=== PATIENT | male | born 1940 | race Caucasian/White ===

== ENCOUNTER → 2021-08-11 14:51 | Outpatient (CLI) | payer MEDICARE, BC, SELFPAY | PROVIDERS: PCP Family Medicine; Visit Provider Nurse Practitioner | DX: Z20.822 Contact with and (suspected) exposure to COVID-19 (principal) | CPT/HCPCS: C9803; U0003; U0005 ==

== ENCOUNTER 2022-05-08 12:49 | Emergency (ER) | payer MEDICARE, BC, OTHER, SELFPAY ==
[2022-05-08 14:05] VITALS: BP 106/77; PULSE 66; RESP 19; TEMP 36.6; O2SAT 99; BMI 26.9
--- NOTE | 2022-05-08 14:44 | EXP.UTC ---
Discharge Plan Disposition Patient Disposition: Home, Self-Care Condition: Good Prescriptions Prescriptions: No Action carvedilol 6.25 mg tablet See Rx Instructions .ROUTE .COMPLEX Qty: 180 3RF Dose Instruction: TAKE 2 TABLETS BY MOUTH ONCE DAILY FOR BLOOD PRESSURE Rx Instructions: TAKE 2 TABLETS BY MOUTH ONCE DAILY FOR BLOOD PRESSURE rosuvastatin 20 mg tablet See Rx Instructions .ROUTE .COMPLEX Qty: 90 0RF Dose Instruction: TAKE ONE TABLET BY MOUTH EVERY DAY FOR CHOLESTEROL Rx Instructions: TAKE ONE TABLET BY MOUTH EVERY DAY FOR CHOLESTEROL lisinopril 2.5 mg tablet See Rx Instructions .ROUTE .COMPLEX Qty: 30 0RF Dose Instruction: TAKE 1 TABLET BY MOUTH ONCE DAILY Rx Instructions: TAKE 1 TABLET BY MOUTH ONCE DAILY clopidogrel 75 tablet 75 mg PO DAILY metoprolol tartrate 50 MG tablet 50 mg PO DAILY Referrals Follow up/Referrals: Provider,Referral, MD [Primary Care Provider] - See instructions Activity Restrictions/Add. Instructions Additional Instructions/Restrictions: [facility] Return if needed Straight to ER if any life threatening symptoms Clinical Impressions Clinical Impression: Ear problem Instructions Patient Instructions: DI for Cerumen Impaction Discharge ED Provider: Shayna Hull [facility] General Stated complaint: Wax build up in Rt ear Mode of Arrival: Ambulatory Source of Information: Patient Limitations: No Limitations Time Seen by Provider: 05/08/22 14:45 Description of Symptoms (Recalled from Triage Doc. by RN): PATIENT C/O WAX BUILD-UP IN RIGHT EAR HEENT Symptoms (Recalled from RN notes): Yes Resp Symptoms (Recalled from RN notes): No Skin Symptoms (Recalled from RN notes): No MS Symptoms (Recalled from RN notes): No Functional Status (Recalled from RN notes): WNL History of Present Illness Provider Complaint: Patient states that [facility] States that they told him that his right ear was stopped up States that he has been flushing it at home but not seen anything come out so he wanted to come in and get it checked and his right ear cleaned out Related Data Home Medications Medication Instructions Recorded Confirmed clopidogrel 75 mg tablet 75 mg PO DAILY Blood thinner 07/05/19 07/05/19 metoprolol tartrate 50 mg tablet 50 mg PO DAILY High blood pressure 07/05/19 07/05/19 Previous Rx's Medication Instructions Recorded carvedilol 6.25 mg tablet See Rx Instructions .Route 01/21/21 .COMPLEX #180 tabs rosuvastatin 20 mg tablet See Rx Instructions .Route 03/23/21 .COMPLEX #90 tabs lisinopril 2.5 mg tablet See Rx Instructions .Route 05/21/21 .COMPLEX #30 tabs Allergies Allergy/AdvReac Type Severity Reaction Status Date / Time aspirin [ASPIRIN] Allergy Intermediate Verified 07/05/19 11:23 Worker's Comp Is this a Worker's Comp case?: No PFSH PFSH Medical History (Updated 05/08/22 @ 14:54 by Shayna Hull APRN) History of heart attack Hyperlipidemia Kidney stone Surgical History (Updated 05/08/22 @ 14:15 by Darlin Collier, RN) History of cholecystectomy History of open heart surgery History of tonsillectomy Social History (Updated 05/08/22 @ 14:15 by Darlin Collier, RN) Smoking Status: Never smoker alcohol intake: never current occupational status: retired Travel in the last 8 weeks: None ROS Obtained: Yes All systems reviewed & no additional complaints except as documented and Yes Systems reviewed as appropriate & no additional complaints except as documented ENT Ears, Nose, Mouth, and Throat: Reports system reviewed and no additional complaints, except as documented, Reports as per HPI and Reports other (right ear stopped up with wax) Physical Exam General General appearance: alert and in no apparent distress ENT ENT exam: Present TM's normal bilaterally and other (only small amount of wax noted in right ear removed
[2022-05-08 14:54] VITALS: BP 106/77; PULSE 66; RESP 19; TEMP 36.6; O2SAT 99
== END 2022-05-08 14:56 | disposition home or self-care (01) ==
PROVIDERS: Emergency Provider Nurse Practitioner
DX: H93.91 Unspecified disorder of right ear
CPT/HCPCS: 99212; G0463

== ENCOUNTER 2022-06-22 09:05 | Emergency (ER) | payer MEDICARE, BC, OTHER, SELFPAY ==
--- NOTE | 2022-06-22 11:56 | EXP.UTC ---
Discharge Plan Disposition Patient Disposition: Home, Self-Care Condition: Good Prescriptions Prescriptions: New Paxlovid (EUA) 300 mg (150 mg x 2)-100 mg tablet See Rx Instructions .ROUTE .COMPLEX Qty: 30 0RF Rx Instructions: take TWO 150 mg tablets of nirmatrelvir with ONE 100 mg tablet of ritonavir twice daily for 5 days No Action carvedilol 6.25 mg tablet See Rx Instructions .ROUTE .COMPLEX Qty: 180 3RF Dose Instruction: TAKE 2 TABLETS BY MOUTH ONCE DAILY FOR BLOOD PRESSURE Rx Instructions: TAKE 2 TABLETS BY MOUTH ONCE DAILY FOR BLOOD PRESSURE rosuvastatin 20 mg tablet See Rx Instructions .ROUTE .COMPLEX Qty: 90 0RF Dose Instruction: TAKE ONE TABLET BY MOUTH EVERY DAY FOR CHOLESTEROL Rx Instructions: TAKE ONE TABLET BY MOUTH EVERY DAY FOR CHOLESTEROL lisinopril 2.5 mg tablet See Rx Instructions .ROUTE .COMPLEX Qty: 30 0RF Dose Instruction: TAKE 1 TABLET BY MOUTH ONCE DAILY Rx Instructions: TAKE 1 TABLET BY MOUTH ONCE DAILY clopidogrel 75 tablet 75 mg PO DAILY metoprolol tartrate 50 MG tablet 50 mg PO DAILY Referrals Follow up/Referrals: Provider,Referral, MD [Primary Care Provider] - See instructions Activity Restrictions/Add. Instructions Additional Instructions/Restrictions: Drink plenty of fluids. Take tylenol or ibuprofen for pain or fever. Take the medications as directed. Return if you begin to have difficulty breathing. Follow up with your regular doctor. GO TO THE ER FOR ANY WORSENING SYMPTOMS If your viral test comes back positive for covid-19, i recommend that you take the paxlovid prescription that we sent to your pharmacy. If it is not positive for covid-19 then please don't take it because it will not help. Clinical Impressions Clinical Impression: Acute viral syndrome Instructions Patient Instructions: Coronavirus Disease 2019, Preventing the Spread of Coronavirus Discharge Instructions Discharge ED Provider: Duane Kc [facility] General Stated complaint: covid test Time Seen by Provider: 06/22/22 11:56 History of Present Illness Provider Complaint: He states that he was accidentilly exposed to covid-19 over the . He started to feel bad, had chills and body aches yesterday. He has been fully vaccinated for covid-19. He has had a flu shot this season also. Related Data Home Medications Medication Instructions Recorded Confirmed clopidogrel 75 mg tablet 75 mg PO DAILY Blood thinner 07/05/19 07/05/19 metoprolol tartrate 50 mg tablet 50 mg PO DAILY High blood pressure 07/05/19 07/05/19 Previous Rx's Medication Instructions Recorded carvedilol 6.25 mg tablet See Rx Instructions .Route 01/21/21 .COMPLEX #180 tabs rosuvastatin 20 mg tablet See Rx Instructions .Route 03/23/21 .COMPLEX #90 tabs lisinopril 2.5 mg tablet See Rx Instructions .Route 05/21/21 .COMPLEX #30 tabs nirmatrelvir 300 mg (150 mg See Rx Instructions PO .COMPLEX 06/22/22 x2)-ritonavir 100 mg tablet,dose #30 tabs pack(EUA) (Paxlovid) Allergies Allergy/AdvReac Type Severity Reaction Status Date / Time aspirin [ASPIRIN] Allergy Intermediate Verified 06/22/22 12:01 [facility] Medical History History of heart attack Hyperlipidemia Kidney stone Surgical History History of cholecystectomy History of open heart surgery History of tonsillectomy Social History Smoking Status: Never smoker alcohol intake: never current occupational status: retired Travel in the last 8 weeks: None ROS Obtained: Yes All systems reviewed & no additional complaints except as documented Constitutional Constitutional: Reports chills and Reports fever(s) Eyes Eyes: Denies eye discharge ENT Ears, Nose, Mouth, and Throat: Denies dizzine
[2022-06-22 11:59] VITALS: BP 124/65; PULSE 83; RESP 16; TEMP 37.3; O2SAT 97; BMI 26.2
[2022-06-22 12:01] LABS: Adenovirus,PCR Not Detected (NotDetected); Bordetella Pertussis Not Detected (NotDetected); Chlamydophila Pneumoniae, PCR Not Detected (NotDetected); Coronavirus 229E Not Detected (NotDetected); Coronavirus NL63 Not Detected (NotDetected); Coronavirus OC43 Not Detected (NotDetected); Coronovirus HKU1,PCR Not Detected (NotDetected); Human Metapneumovirus Not Detected (NotDetected); Influenza A, PCR Not Detected (NotDetected); Influenza AH1, 2009 Not Detected (NotDetected); Influenza AH1, PCR Not Detected (NotDetected); Influenza AH3,PCR Not Detected (NotDetected); Influenza B, PCR Not Detected (NotDetected); Mycoplasma Pneumoniae, PCR Not Detected (NotDetected); Parainfluenza 1, PCR Not Detected (NotDetected); Parainfluenza 2, PCR Not Detected (NotDetected); Parainfluenza 3, PCR Not Detected (NotDetected); Parainfluenza 4, PCR Not Detected (NotDetected); Respiratory Syncytial Virus Not Detected (NotDetected); Rhinovirus/Enterovirus Not Detected (NotDetected)
[2022-06-22 12:23] VITALS: BP 124/65; PULSE 83; RESP 16; TEMP 37.3
[2022-06-23 16:29] LABS: Coronavirus 19, PCR Detected (NotDetected)
== END 2022-06-22 12:23 | disposition home or self-care (01) ==
PROVIDERS: Emergency Provider Nurse Practitioner Family
DX: U07.1 COVID-19 (principal); R50.9 Fever, unspecified; I25.2 Old myocardial infarction; E78.5 Hyperlipidemia, unspecified; M79.10 Myalgia, unspecified site; Z79.02 Long term (current) use of antithrombotics/antiplatelets; Z79.899 Other long term (current) drug therapy; Z88.6 Allergy status to analgesic agent
CPT/HCPCS: 87581; 87632; 87798; 99213; C9803; G0463; U0003; U0005

== ENCOUNTER 2024-12-29 22:53 | Emergency (ER) | payer MEDICARE, BC, OTHER, SELFPAY ==
--- OUTSIDE RECORDS SUMMARY | 2024-04-10 07:22 | XMS_ITS | Encounter Summary ---
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 This section includes the names of all active insurance providers for the patient. Insurance Provider Type of Coverage Plan Name Start of Policy Coverage End of Policy Coverage Group Number Member ID Insurance Provider's Telephone Number Policy Asif's Name Patient's Relationship to Policy Asif BS [place] [employer] [place] SECONDARY (NO B EXC) TI AUTOM OTIVE - RETI Jul 25, 2018 [id number] MALUTI PERKINS JORDAN SPOUSE MEDICARE (WNR) MEDICARE (M) PART B Jan 22, 2007 PART B [id number] [phone] MALUJUSTYNA TINAJERO RGE PATIENT MEDICARE (WNR) MEDICARE (M) PART A Sep 22, 2005 PART A [id number] [phone] REINAJUSTYNA AKBAR PATIENT FOR LIFE TRICA RE FOR LIFE Jul 25, 2017 FOR LIFE [id number] ROBBIE HUANG JR PATIENT Selected Encounter This section includes the information on record at NH for the Encounter. Date/Time Encounter Type Encounter Description Reason Pro vider Source Apr 10, 2024 11:22 AM Outpatient Encounter ADMIN PAT ACTIVTIES (MASNONCT) IHE Encounter Template Text not used by NH Plan of Treatment: Future Appointments (+ 6 months) and Future Tests (+/- 45 days) The Plan of Treatment section includes future care activities for the patient from all NH treatmentfacilities. This section includes future appointments and future orders which are active, pending or scheduled. Future Appointments This section includes appointments that were scheduled to occur 6 months from the date of the Encounter, up to a maximum of 20 appointments. The data comes from all NH treatment facilities. Appointment Date/Time Appointment Type Appointme nt Facility Name Apr 12, 2024 10:00 AM AMBULATORY - SURGERY [place] [facility] Apr 12, 2024 11:30 AM AM[facility]ULAT[facility] - [facility]IC[facility] Apr 12, 2024 12:30 PM AMBULATORY - [facility]IC[facility] Apr 17, 2024 01:20 PM AMBULATORY - MEDICINE [facility] May 09, 2024 08:02 AM AMBULATORY - MEDICINE [facility] May 10, 2024 02:00 PM AMBULATORY - NEUROLOGY [facility] May 24, 2024 03:30 PM AMBULATORY - MEDICINE [facility] May 25, 2024 02:00 PM AMBULATORY - NONE [place] [facility] May 28, 2024 01:00 PM AM[place]ULATORY - NONE [place] [facility] May 28, 2024 01:30 PM AM[facility]ULATORY - NONE [place] [facility] Jun 20, 2024 01:00 PM AMBULATORY - MEDICINE [facility] Jun 26, 2024 01:00 PM AMBULATORY - MEDICINE [facility] Jun 26, 2024 02:20 PM AMBULATORY - MEDICINE [facility] Aug 07, 2024 03:15 PM AMBULATORY - MEDICINE [facility] Oct 02, 2024 01:00 PM AMBULATORY - MEDICINE [facility] Lab Results: +/- 30 days of the encounter This section includes the Chemistry and Hematology Lab Results on record with NH for the patient. Radiology Reports and Pathology Reports are provided separately, in subsequent sections. Lab Results This section contains the Chemistry/Hematology Results that were resulted 30 days before or 30 daysafter the date of the Encounter. Date/Time Source Result Type Result - Unit Interpretation Reference Range Specimen Type Comment Apr 17, 2024 11:32 AM [facility] CREATININE URINE Specimen Type: URINE No comment entered. Ordering Provider: CLEVE MCFARLAND Report Released Date/Time: Feb 10, 2024 05:42 PM Reporting Lab: [address] [phone] Performing Lab: [address] [address] CREATININE 89.1 mg/dL Apr 17, 2024 11:32 AM [facility] TOTAL PROTEIN URINE Specimen Type: URINE No comment entered. Ordering Provider: CLEVE MCFARLAND Report Released Date/Time: Feb 10, 2024 05:42 PM Reporting Lab: [address] [phone] Performing Lab: [address] [address] TOTAL PROTEIN 18 mg/dL H 0-14 Apr 17, 2024 11:32 AM [facility] URINALYSIS URINE Specimen Type: URINE No comment entered. Ordering Provider: CLEVE MCFARLAND Report Released Date/Time: Feb 10, 2024 05:42 PM Reporting Lab: [address] [phone] Performing Lab: [address] [phone] URINE COLOR Light Yellow Colorless-Yello w APPEARANCE Clear Clear UROBILINOGEN Normal mg/dL Normal URINE BLOOD Negative Negative URINE BILIRUBIN Negative Negative URINE KETONES Negative mg/dL Negative URINE PROTEIN TRACE mg/dL Negative-Trace URINE PH 5.0 4.5-8.0 URINE NITRITE Negative Negative URINE LEUKOCYTE EST Negative Negative SPECIFIC GRAVITY 1.018 1.005-1.030 URINE GLUCOSE >1000 mg/dL H Negative URINE RBC (i) 1 /[HPF] 0-3 URINE WBC (i) <1 /[HPF] 0-3 URINE MUCOUS (i) TRACE /[LPF] H None SQUAMOUS EPITHELIAL (i) 5 /[LPF] 0-28 HYALINE CASTS (i) 4 /[LPF] H 0-2 Apr 17, 2024 11:12 AM [facility] PTH INTACT (MCCALL) PLASMA Spe cimen Type: PLASMA Comment: For intraoperative testing samples drawn 10 minutes post resection should decrease >50% from the highest baseline. STAT assay time 18 minutes. Dialysis patients are typically maintained by using multiples of the reference range upper limit: this is the Mccall assay, a 2nd generation intact PTH method. Hemolysis and high levels of protein can interfere. Heterophilic antibodies can interfere. Ordering Provider: CLEVE MCFARLAND Report Released Date/Time: Feb 10, 2024 05:42 PM Reporting Lab: [address] [phone] Performing Lab: [address] [address] PTH INTACT (MCCALL) 104.2 pg/mL H 8.7-77.1 Apr 17, 2024 11:12 AM [facility] 25-OH VITAMIN D SERUM Specime n Type: SERUM Comment: The National Institutes of Health (NIH) recommendations state: <12 ng/mL - Deficient 20 - 50 ng/mL - Optimal Levels - adequate for most people. >50 ng/mL - Increased risk of hypercalciuria/other health problems - clinical correlation is required. These reference ranges represent clinical decision values rather than population-based reference values. Ordering Provider: CLEVE MCFARLAND Report Released Date/Time: Feb 10, 2024 05:42 PM Reporting Lab: [address] [phone] Performing Lab: [address] [address] 25-OH VITAMIN D 41.3 ng/mL 20.0-50.0 Apr 17, 2024 11:12 AM [facility] CBC/PLT BLOOD Specimen Type: BLOOD No comment entered. Ordering Provider: CLEVE MCFARLAND Report Released Date/Time: Feb 10, 2024 05:42 PM Reporting Lab: [facility] [address] [phone] Performing Lab: [facility] [address] [address] WBC 5.7 10*3/uL 5.0-10.0 RBC 4.22 10*6/uL L 4.6-6.2 HGB 13.0 g/dL L 14.0-18.0 HCT 40.6 L 42.0-52.0 MCV 96.2 fL H 80.0-94.0 MCH 30.8 pg 27.0-31.0 MCHC 32.0 g/dL 32.0-36.0 PLT 199 10*3/uL 150-450 MPV 10.1 fL 9.0-13.1 RDW 14.0 11.0-16.0 NRBC 0.0 0.0-0.0 Apr 17, 2024 11:12 AM [facility] 4 PLASMA Specimen Type: PLASM A Comment: Estimated Glomerular Filtration Rate (eGFR) calculated using the 2020 Chronic Kidney Disease-Epidemiology (CKD-EPI) Collaboration creatinine equation; units of measure are mL/min/1.73 m2. Results are only valid for adults (>=18 years) whose serum creatinine is in a steady state. eGFR calculations are not valid for patients with acute kidney injury and for patients on dialysis. Creatinine-based estimates of kidney function may also be inaccurate in patients with reduced creatinine generation due to decreased muscle mass (e.g., malnutrition, severe hypoalbuminemia, sarcopenia, chronic neuromuscular disease, amputations, severe heart failure or liver disease) and in patients with increased creatinine generation due to increased muscle mass (e.g., muscle builders, anabolic steroids) or increased dietary intake. As drug clearance is proportional to total GFR and not GFR indexed to body surface area (BSA), in individuals with a BSA substantially different than 1.73 m2, drug dosing should be based on the reported eGFR value de-indexed from BSA by multiplying by the individual's BSA and dividing by 1.73. CKD is diagnosed based on abnormalities of kidney structure or function, present for >3 months, with implications for health and disease. CKD is classified and staged based on cause, eGFR and albuminuria (quantified as urine albumin to creatinine ratio). An eGFR >60 mL/min/1.73 m2 in the absence of increased urine albumin excretion or structural abnormalities does not represent CKD. eGFR CKD Interpretation (mL/min/1.73 m2) stage >=90 G1 Normal 60-89 G2 Mild decrease 45-59 G3A Mild to moderate decrease 30-44 G3B Moderate to severe decrease 15-29 G4 Severe decrease <15 G5 Kidney failure Ordering Provider: CLEVE MCFARLAND Report Released Date/Time: Feb 10, 2024 05:42 PM Reporting Lab: [address] [phone] Performing Lab: [address] [phone] CREATININE 2.24 mg/dL H 0.72-1.25 UREA NITROGEN 36 mg/dL H 9-25 GLUCOSE 99 mg/dL 74-100 SODIUM 140 mmol/L 136-145 POTASSIUM 4.7 mmol/L 3.5-5.1 CHLORIDE 113 mmol/L H 98-107 CO2 20 mmol/L L 22-29 CALCIUM 8.8 mg/dL 8.4-10.2 PHOSPHORUS 3.0 mg/dL 2.3-4.7 ALBUMIN 4.0 g/dL 3.5-5.2 ANION GAP 7 meq/L 3-19 eGFR (CKD-EPI) 28 Vital Signs: All taken on the encounter date This section contains inpatient and outpatient Vital Signs collected on the date of the Encounter. Date/Time Temperature Pulse Blood Pressure Respiratory Rate SP02 Pain Height Weight Body Mass Index Source Apr 10, 2024 09:18 PM 0 [place] [facility] Social History: Smoking Status (Most current) and Tobacco Use (All prior to encounter date) This section includes the most current, and the historical, smoking and tobacco- related health factors from the NH facility where the Encounter took place. Current Smoking Status This section includes the most current smoking, or tobacco-related health factor, from the NH facility where the Encounter took place. Date/Time Current Smoking Status Comment Kelechi dial May 25, 2023 01:30 PM VA-TOBACCO FORMER USER [facility] Tobacco Use History This section includes a history of the smoking, or tobacco-related health factors, that were collected on or before the date of the Encounter. The data comes from the NH facility where the Encounter took place. Date/Time Smoking Status/Tobacco Use Comment F acility May 25, 2023 01:30 PM VA-TOBACCO QUIT 15 YRS OR MORE [facility] Jun 18, 2022 01:30 PM VA-TOBACCO FORMER USER [facility] Jun 18, 2022 01:30 PM VA-TOBACCO QUIT 15 YRS OR MORE [facility] Jun 29, 2021 03:00 PM VA-TOBACCO FORMER USER [facility] Jun 29, 2021 03:00 PM VA-TOBACCO QUIT 15 YRS OR MORE [facility] Jul 28, 2020 09:30 AM VA-TOBACCO FORMER USER [facility] Jul 28, 2020 09:30 AM VA-TOBACCO QUIT 15 YRS OR MORE [facility] Jul 09, 2019 03:25 PM VA-TOBACCO NEVER USED [facility] Aug 24, 2018 02:06 PM VA-TOBACCO FORMER USER [facility] Aug 24, 2018 02:06 PM VA-TOBACCO QUIT 15 YRS OR MORE [facility] Sep 22, 2017 07:57 AM V9 LIFETIME NON-USER OF TOBACCO [facility] December 15, 2015 08:07 AM V9 LIFETIME NON-USER OF TOBACCO [facility] Jun 14, 2014 07:48 AM V9 LIFETIME NON-USER OF TOBACCO [facility] Jun 07, 2013 10:08 AM V9 LIFETIME NON-USER OF TOBACCO [facility] May 29, 2012 10:26 AM V9 LIFETIME NON-USER OF TOBACCO [facility] Nov 22, 2011 02:23 PM V9 LIFETIME NON-USER OF TOBACCO [facility] Oct 23, 2010 09:22 AM V9 QUIT TOBACCO >7 YEARS AGO [facility] May 30, 2007 03:08 PM V9 LIFETIME NON-USER OF TOBACCO [facility] Radiology Reports: +/- 30 days of the encounter Radiology Reports For cases when an order for radiology services may have been completed prior to the date of the Encounter, the report list includes the Radiology Reports that were completed up to 30 days before dateof the Encounter. For cases when an order for radiology services may have been completed after the date of the Encounter, the report list also includes the Radiology Reports that were completed up to30 days after date of the Encounter. The data comes from all NH treatment facilities. Date/Time Radiology Report Provider Source Apr 12, 2024 09:29 AM CAROTID DUPLEX: ROBBIE HUANGAlex [id number] -[id number] M Exm Date: APR 12, 2024@09:29 Req Phys: AYANA YAO Loc: [facility] 16-1 (Req'g Loc) Img Loc: VASCULAR LAB TESTING/CDD Service: Unknown (Case [id number] COMPLETE)CAROTID DUPLEX (VAS Detailed) CPT:96184 Reason for Study: SEE CLINICAL HISTORY Clinical History: Carotid Duplex Indications: Atherosclerotic disease, Other: right facial droop, dizziness Report Status: Verified Date Reported: APR 13, 2024 Date Verified: APR 13, 2024 Car Rental Sales Assistant E-Sig: Report: Carotid artery duplex ultrasound Right: Common carotid artery 74/16 cm/s Internal carotid artery 87/25 cm/s with calcified plaque noted in the proximal ICA External carotid artery 124/12 cm/s Vertebral arteries 52/13 cm/s with antegrade flow Subclavian artery 120 cm/s ICA/CCA ratio: 1.2 Left: Common carotid artery 60/19 cm/s Internal carotid artery 106/30 cm/s with calcified plaque noted in the proximal internal carotid artery External carotid artery 72/9 cm/s Vertebral artery 46/11 cm/s Subclavian artery 1 77 cm/s ICA/CCA ratio 1.8 Impression: Less than 50% stenosis noted in the bilateral internal carotid arteries. Vertebral flow is antegrade bilaterally. Primary Diagnostic Code: NO ALERT REQUIRED Primary Interpreting Staff: NICOLASA FLORES, ATTENDING PHYSICIAN Verified by sheet metal assembler and riveter for NICOLASA FLORES [facility] Encounter Notes: All associated encounter notes This section contains the clinical notes associated to the Encounter. Date/Time Encounter Note(s) Provider Source Apr 10, 2024 11:22 AM CARE COORDINATION HOME TELEHEALTH EDUCATION NOTE: LOCAL TITLE: HT TECH EDUCATION NOTE STANDARD TITLE: CARE COORDINATION HOME TELEHEALTH EDUCATION NOTE DATE OF NOTE: APR 10, 2024@11:22 ENTRY DATE: APR 10, 2024@11:22:47 AUTHOR: GARCIA HULL COSIGNER: URGENCY: STATUS: COMPLETED HT Admission Date: 04/10/2024 HT Diagnosis: HTN Provider-ordered vital sign goals: SBP<140 DBP <90 HT electronic capture of the blood pressure? Yes HT Emergency classification: L HT Category of Care: LOBO Last completion date: 04/10/2024 3-month average response rate percentage: NEW HT Equipment Assigned: -COGNOSANTE(1VISION) [employer] TAB ACTIVE V2 -BPM 651 BLE WIDE RANGE Transmitting: Cellular modem ========= HOME TELEHEALTH (HT) TECH EDUCATION AND INSTALLATION NOTE Home Monitoring technology assigned: In Home Messaging Device (IHMD) Vendor: [employer] Connection via: Cellular modem Peripheral Device(s): Blood pressure Monitor with pulse Entry: Bluetooth Delivery mode: Mailed to from [facility] ([employer] [place]) Technology installed by: [place]/Caregiver [place]/Caregiver was educated on technology by: Home Care Associate (name): Edna NEWMAN RN HT-CC [place]/Caregiver is able to understand verbal instructions. /Caregiver is able to follow visual instructions. [place]/Caregiver has adequate hearing (for Interactive Voice Response). [place]/Caregiver does not need learning aid. /Caregiver trained on the following: Level of Understanding: Good Power and phone connections Safety information Ability to read and answer questions Ability to push appropriate buttons Password information Confidentiality of information When to contact staff for technology problems How to connect and transmit vital sign data Whom to call for urgent/emergent needs /Caregiver verbalized understanding of how to operate Home Telehealth Technology during telephone enrollment. /Caregiver is able to do return demonstration: N/A Contact information given to /Caregiver? Yes PSA: Please mail the following to the : HTN: -[facility]- [facility] reviewed the mailed written material with [place] during enrollment and PRN: 1. 10 Tips to Help You Cut Back on Salt/Sodium 2. Lowering Blood Pressure with DASH 3. Disaster Preparedness for Elderly 4. Welcome letter with [facility]- RNCC Edna Hull and office hours M- , 07:30 am to 4:00 pm. Contact number NH work cell. Thank you! Please note PIN # is last 6 of social /es/ GARCIA HULL, MSN, RN-BC PERMIT COORDINATOR Signed: 04/10/2024 11:25 Receipt Acknowledged By: 04/10/2024 13:20 /es/ MARIA ESTHER YO Interior Design Assistant GARCIA HULL [facility]
--- OUTSIDE RECORDS SUMMARY | 2024-04-27 08:10 | XMS_ITS | Encounter Summary ---
Author Name [facility] [place] [facility] [place] Address [address] [place] [address] Care Team Providers Care Runner Out Name Role Phone JORDYN DALIA Primary Care [...] AUTOM OTIVE - RETI Jul 25, 2018 [id number] MALUTI PERKINS JORDAN SPOUSE MEDICARE (WNR) MEDICARE (M) PART B Jan 22, 2007 PART B [id number] MALUJUSTYNA TINAJERO RGE PATIENT MEDICARE (WNR) MEDICARE (M) PART A Sep 22, 2005 PART A [id number] REINAJUSTYNA PATIENT FOR LIFE TRICA RE FOR LIFE Jul 25, 2017 FOR LIFE [id number] ROBBIE HUANG JR PATIENT Selected Encounter This section includes the information on record at [place] for the Encounter. Date/Time Encounter Type Encounter Description Reason Pro vider Source Apr 27, 2024 12:10 PM Outpatient Encounter ADMIN PAT ACTIVTIES (MASNONCT) IHE Encounter Template Text not used by [place] Plan of Treatment: Future Appointments (+ 6 months) and Future Tests (+/- 45 days) The Plan of Treatment section includes future care activities for the patient from all [place] [facility]. This section includes future appointments and future orders which are active, pending or scheduled. Future Appointments This section includes appointments that were scheduled to occur 6 months from the date of the Encounter, up to a maximum of 20 appointments. The data comes from all [place] treatment facilities. Appointment Date/Time Appointment Type Appointme nt Facility Name May 09, 2024 08:02 AM AMBULATORY - MEDICINE [facility] May 10, 2024 02:00 PM AMBULATORY - NEUROLOGY [facility] May 24, 2024 03:30 PM AMBULATORY - MEDICINE [facility] May 25, 2024 02:00 PM AMBULATORY - NONE [facility] May 28, 2024 01:00 PM AMBULATORY - NONE [facility] May 28, 2024 01:30 PM [facility] NONE [facility] Jun 20, 2024 01:00 PM AMBULATORY - MEDICINE [facility] Jun 26, 2024 01:00 PM AMBULATORY - MEDICINE [facility] Jun 26, 2024 02:20 PM AMBULATORY - MEDICINE [facility] Aug 07, 2024 03:15 PM AMBULATORY - MEDICINE [facility] Oct 02, 2024 01:00 PM AMBULATORY - MEDICINE [facility] Oct 25, 2024 09:00 AM AMBULATORY - MEDICINE [facility] Lab Results: +/- 30 days of the encounter This section includes the Chemistry and Hematology Lab Results on record with [place] for the patient. Radiology Reports and Pathology Reports are provided separately, in subsequent sections. Lab Results This section contains the Chemistry/Hematology Results that were resulted 30 days before or 30 daysafter the date of the Encounter. Date/Time Source Result Type Result - Unit Interpretation Reference Range Specimen Type Comment May 25, 2024 11:28 AM [facility]CRO[facility]/CREAT RATIO URINE Specimen Type: URINE No comment entered. Ordering Provider: DALIA COBB Report Released Date/Time: May 24, 2024 08:27 AM Reporting Lab: [address] [phone] Performing Lab: [address] [address] CREATININE 103.6 mg/dL MICROALBUMIN QUANT 33.6 mg/L H 0.0-30.0 .MICROALBUMIN/CREA RATIO 32.4 ug/mg{creat} May 25, 2024 11:17 AM [facility] LIPID PROFILE PLASMA Specimen Type: PLASM A Comment: Estimated [...] G4 Severe decrease <15 G5 Kidney failure Vitamin B12 test may not yield results when protein level of sample is too elevated. Ordering Provider: DALIA COBB Report Released Date/Time: May 24, 2024 08:27 AM Reporting Lab: [address] [phone] Performing Lab: [address] [address] CHOLESTEROL 144 mg/dL 0-199 TRIGLYCERIDE 97 mg/dL 0-149 HDL CHOLESTEROL 42 mg/dL 40-69 DIRECT LDL CHOL. 81 mg/dL 0-100 May 25, 2024 11:17 AM [facility] GLYCOHEMOGLOBIN BLOOD Specimen Type: BLOOD Comment: [place] guidelines for A1c interpretation: Glycemic control targets are based on Shared Decision Making between clinicians and patients. Criteria used to establish an A1c target recommendation can be found at https://www.sd.gov/qualityandpatientsafety/ and include the use of result accuracy and precision(CV) of the A1c tests clinicians utilize at their own sites of practice. Values obtained from A1C measurements can vary. For typical A1C assays, a reported value of 7.0 could actually be between 6.72 and 7.28 if measured by a reference method. A reported value of 9.0 could actually be between 8.73 and 9.27. Ref: https://ngsp.org/CAPdata.asp. The in-house [employer] D-100 analyzer has a historical CV <= 2%. Contact the laboratory for further performance characteristics of this assay. Ordering Provider: DALIA COBB Report Released Date/Time: May 24, 2024 08:27 AM Reporting Lab: [address] [address] Performing Lab: [address] [address] GLYCOHEMOGLOBIN 5.9 4.4-6.4 May 25, 2024 11:17 AM [facility] 25-OH VITAMIN D SERUM Specime n Type: SERUM Comment: The National Institutes of Health (NIH) recommendations state: <12 ng/mL - Deficient 20 - 50 ng/mL - Optimal Levels - adequate for most people. >50 ng/mL - Increased risk of hypercalciuria/other health problems - clinical correlation is required. These reference ranges represent clinical decision values rather than population-based reference values. Ordering Provider: DALIA COBB Report Released Date/Time: May 24, 2024 08:27 AM Reporting Lab: [address] [address] Performing Lab: [address] [address] 25-OH VITAMIN D 45.5 ng/mL 20.0-50.0 May 25, 2024 11:17 AM [facility] B12 VITAMIN PLASMA Specimen Type: PLASM A Comment: Estimated [...] G4 Severe decrease <15 G5 Kidney failure Vitamin B12 test may not yield results when protein level of sample is too elevated. Ordering Provider: DALIA COBB Report Released Date/Time: May 24, 2024 08:27 AM Reporting Lab: [address] [address] Performing Lab: [address] [address] B12 VITAMIN 501 pg/mL 213-816 May 25, 2024 11:17 AM [facility] TSH PLASMA Specimen Type: PLASM A Comment: Estimated [...] decrease <15 G5 Kidney failure Ordering Provider: DALIA COBB Report Released Date/Time: May 24, 2024 08:27 AM Reporting Lab: [address] [address] Performing Lab: [address] [address] TSH 1.8055 m[IU]/mL 0.3500-4.9400 May 25, 2024 11:17 AM [facility] PANEL 5 PLASMA Specimen Type: PLASM A Comment: Estimated [...] G4 Severe decrease <15 G5 Kidney failure Vitamin B12 test may not yield results when protein level of sample is too elevated. Ordering Provider: DALIA COBB Report Released Date/Time: May 24, 2024 08:27 AM Reporting Lab: [address] [address] Performing Lab: [address] [address] CREATININE 2.41 mg/dL H 0.72-1.25 UREA NITROGEN 34 mg/dL H 9-25 GLUCOSE 100 mg/dL 74-100 SODIUM 142 mmol/L 136-145 POTASSIUM 4.8 mmol/L 3.5-5.1 CHLORIDE 109 mmol/L H 98-107 CO2 23 mmol/L 22-29 CALCIUM 9.2 mg/dL 8.4-10.2 TOTAL PROTEIN 7.5 g/dL 6.4-8.3 ALBUMIN 4.2 g/dL 3.5-5.2 TOTAL BILIRUBIN 0.9 mg/dL 0.2-1.2 AST 19 U/L 5-34 ALT 16 U/L 0-55 ANION GAP 10 meq/L 3-19 ALK PHOS 110 U/L 40-150 eGFR (CKD-EPI) Apr 17, 2024 11:32 AM [facility] CREATININE URINE Specimen Type: URINE No comment entered. Ordering Provider: CLEVE MCFARLAND Report Released Date/Time: Feb 10, 2024 05:42 PM Reporting Lab: [address] [address] Performing Lab: [address] [address] CREATININE 89.1 mg/dL Apr 17, 2024 11:32 AM [facility] TOTAL PROTEIN URINE Specimen Type: URINE No comment entered. Ordering Provider: CLEVE MCFARLAND Report Released Date/Time: Feb 10, 2024 05:42 PM Reporting Lab: [place] [phone] Performing Lab: [place] [phone] TOTAL PROTEIN 18 mg/dL H 0-14 Apr 17, 2024 11:32 AM [facility] URINALYSIS URINE Specimen Type: URINE No comment entered. Ordering Provider: CLEVE MCFARLAND Report Released Date/Time: Feb 10, 2024 05:42 PM Reporting Lab: [address] [phone] Performing Lab: [address] [address] URINE COLOR Light Yellow Colorless-Yello w APPEARANCE [...] H 0-2 Apr 17, 2024 11:12 AM [facility] PTH INTACT ([place]) PLASMA Spe cimen Type: [...] Feb 10, 2024 05:42 PM Reporting Lab: [place] [phone] Performing Lab: [place] [phone] PTH INTACT ([place]) 104.2 pg/mL H 8.7-77.1 Apr 17, 2024 11:12 AM [facility] 25-OH VITAMIN D SERUM Specime n Type: [...] Feb 10, 2024 05:42 PM Reporting Lab: [place] [phone] Performing Lab: [place] [phone] 25-OH VITAMIN D 41.3 ng/mL 20.0-50.0 Apr 17, 2024 11:12 AM [facility] CBC/PLT BLOOD Specimen Type: BLOOD No comment entered. Ordering Provider: CLEVE MCFARLAND Report Released Date/Time: Feb 10, 2024 05:42 PM Reporting Lab: [place] [phone] Performing Lab: [place] [id number] WBC 5.7 10*3/uL 5.0-10.0 RBC 4.22 10*6/uL L 4.6-6.2 HGB 13.0 g/dL L 14.0-18.0 HCT 40.6 L 42.0-52.0 MCV 96.2 fL H 80.0-94.0 MCH 30.8 pg 27.0-31.0 MCHC 32.0 g/dL 32.0-36.0 PLT 199 10*3/uL 150-450 MPV 10.1 fL 9.0-13.1 RDW 14.0 11.0-16.0 NRBC 0.0 0.0-0.0 Apr 17, 2024 11:12 AM [facility] PANEL 4 PLASMA Specimen Type: PLASM A [...] Feb 10, 2024 05:42 PM Reporting Lab: [facility] [address] [facility] [address] Performing Lab: [facility] [address] [facility] [address] CREATININE 2.24 mg/dL H 0.72-1.25 UREA NITROGEN 36 mg/dL H 9-25 GLUCOSE 99 mg/dL 74-100 SODIUM 140 mmol/L 136-145 POTASSIUM 4.7 mmol/L 3.5-5.1 CHLORIDE 113 mmol/L H 98-107 CO2 20 mmol/L L 22-29 CALCIUM 8.8 mg/dL 8.4-10.2 PHOSPHORUS 3.0 mg/dL 2.3-4.7 ALBUMIN 4.0 g/dL 3.5-5.2 ANION GAP 7 meq/L 3-19 eGFR (CKD-EPI) 28 Social History: Smoking Status (Most current) and Tobacco Use (All prior to encounter date) This section includes the most current, and the historical, smoking and tobacco- related health factors from the [place] facility where the Encounter took place. Current Smoking Status This section includes the most current smoking, or tobacco-related health factor, from the [place] facility where the Encounter took place. Date/Time Current Smoking Status Comment Kelechi dial May 19, 2017 03:22 AM NON-TOBACCO USE INPATIENT [facility] Tobacco Use History This section includes a history of the smoking, or tobacco-related health factors, that were collected on or before the date of the Encounter. The data comes from the [place] facility where the Encounter took place. Date/Time Smoking Status/Tobacco Use Comment F octavia Sep 07, 2016 02:41 AM NON-TOBACCO USE INPATIENT [facility] Apr 21, 2004 08:29 AM HF V9 CURRENT NON-SMOKER quit smoking about 30 yrs ago [facility] Sep 06, 2002 02:26 PM HF V9 CURRENT NON-SMOKER QUIT SMOKING ABOUT 31 YRS AGO [facility] Radiology Reports: +/- 30 days of [...] the Encounter. The data comes from all [place] treatment facilities. Date/Time Radiology Report Provider Source Apr 12, 2024 09:29 AM CAROTID DUPLEX: ROBBIE HUANG [id number] M Exm Date: APR 12, 2024@09:29 Req Phys: AYANA YAO Abby Loc: [facility] 16-1 (Req'g Loc) Img Loc: VASCULAR LAB TESTING/CDD Service: Unknown (Case [id number] COMPLETE)CAROTID DUPLEX (VAS Detailed) CPT:96389 Reason for Study: SEE CLINICAL HISTORY Clinical History: Carotid Duplex Indications: Atherosclerotic disease, Other: right facial droop, dizziness Report Status: Verified Date Reported: APR 13, 2024 Date Verified: APR 13, 2024 Portal Architect E-Sig: Report: Carotid artery duplex ultrasound Right: [...] Staff: NICOLASA FLORES, ATTENDING PHYSICIAN Verified by production line assembler for NICOLASA FLORES /NICOLASA [facility] Encounter Notes: All associated encounter notes This section contains the clinical notes associated to the Encounter. Date/Time Encounter Note(s) Provider Source Apr 27, 2024 12:11 PM ADMINISTRATIVE NOT E: LOCAL TITLE: CLERICAL/ADMIN NOTE STANDARD TITLE: ADMINISTRATIVE NOTE DATE OF NOTE: APR 27, 2024@12:11 ENTRY DATE: APR 27, 2024@12:11:06 AUTHOR: DIONNE HAYES EXP COSIGNER: URGENCY: STATUS: COMPLETED [facility] 16-1 05/25/2024@13:00 Future Spoke with scheduled appt per pdd and time. ltr mailed /jack/ DIONNE HAYES [facility] Signed: 04/27/2024 12:11 DIONNE HAYES-[facility]
--- OUTSIDE RECORDS SUMMARY | 2024-07-24 09:41 | XMS_ITS | Encounter Summary ---
Author Name [facility] Organization [facility] Address [address] [place] [address] Care Team Providers Care Cream Dumper Name Role Phone JORDYN DALIA Primary Care [...] AUTOM OTIVE - RETI Jul 25, 2018 [id number] MALUTI PERKINS JORDAN SPOUSE MEDICARE (WNR) MEDICARE (M) PART B Jan 22, 2007 PART B [id number] MALUJUSTYNA TINAJERO RGE PATIENT MEDICARE (WNR) MEDICARE (M) PART A Sep 22, 2005 PART A [id number] [phone] REINAJUSTYNA PATIENT FOR LIFE TRICA RE FOR LIFE Jul 25, 2017 FOR LIFE [id number] ROBBIE HUANG JR PATIENT Selected Encounter This section includes the information on record at MD for the Encounter. Date/Time Encounter Type Encounter Description Reason Pro vider Source Jul 24, 2024 01:41 PM Outpatient Encounter ADMIN PAT ACTIVTIES (MASNONCT) IHE Encounter Template Text not used by MD Plan of Treatment: Future Appointments (+ 6 months) and Future Tests (+/- 45 days) The Plan of Treatment section includes future care activities for the patient from [facility] This section includes future appointments and future orders which are active, pending or scheduled. Future Appointments This section includes appointments that were scheduled to occur 6 months from the date of the Encounter, up to a maximum of 20 appointments. The data comes from all [facility]. Appointment Date/Time Appointment Type Appointme nt Facility Name Aug 07, 2024 03:15 PM AM[facility]UL[facility]INE [facility] Oct 02, 2024 01:00 PM [facility] - [facility]ICINE [facility] Oct 25, 2024 09:00 AM AMBULATORY - MEDICINE [facility] December 03, 2024 01:00 PM [facility]UL[facility]ORY - NONE [place] [facility] December 06, 2024 12:15 PM AMBULAT[facility] - MEDICINE [facility] December 14, 2024 08:00 AM AMBULATORY - NONE [place] [facility] Jan 04, 2025 01:30 PM AMBULATORY - SURGERY [place] [facility] Active, Pending, and Scheduled Orders This section includes a listing of several types of active, pending, and scheduled orders, including clinic medications orders, diagnostic test orders, procedure orders and consult orders; where the start date of the order is 45 days before the date of the Encounter or 45 days after the date of theEncounter. The data comes from all [facility]. 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 Radiology Reports and Pathology Reports are provided separately, in subsequent sections. Lab Results This section contains the Chemistry/Hematology Results that were resulted 30 days before or 30 daysafter the date of the Encounter. Date/Time Source Result Type Result - Unit Interpretation Reference Range Specimen Type Comment Jun 26, 2024 02:33 PM [facility] CHITOTRIOSIDASE ASSAY SERUM Specimen Type: SERUM Comment: ~For Test: CHITOTRIOSIDASE ASSAY ~ORDER READ BACK TO: EDWINA AMARILIS @1349 06/26/24 GRR See Image List-Proc NOTE-LABORATORY SCANNED REPORT Proc DT: 07.10.24 Ordering Provider: EDWINA OLMOS Report Released Date/Time: Jun 26, 2024 01:48 PM Reporting Lab: [address] [address] Performing Lab: [address] [address] CHITOTRIOSIDASE ASSAY Scanned report posted in [employer]-see comment Jun 26, 2024 02:33 PM [facility] BLUM'S LUNG PANEL SERUM Spe cimen Type: SERUM No comment entered. Ordering Provider: EDWINA OLMOS Report Released Date/Time: Jun 26, 2024 01:40 PM Reporting Lab: [address] [address] Performing Lab: [address] [address] ASP. FUM. TYPE 1 Negative NEGATIVE ASP. FUM. TYPE 6 Negative NEGATIVE AUREO. PULLULANS Negative NEGATIVE MICROPOLYSPORO FAENI Negative NEGATIVE PIGEON SERUM Negative NEGATIVE T-ACTINO. CANDIDUS Negative NEGATIVE T-ACTINO. VIRIDIS Negative NEGATIVE T-ACTINO. VULGARIS Negative NEGATIVE Jun 26, 2024 02:33 PM [facility] [id number] ENZ (SERUM) SERUM Sp ecimen Type: SERUM No comment entered. Ordering Provider: EDWINA OLMOS Report Released Date/Time: Jun 26, 2024 01:40 PM Reporting Lab: [address] [address] Performing Lab: [facility] [address] [place] [id number] ENZ (SERUM) 65 U/L Jun 26, 2024 02:32 PM [facility] ILLFB-5-[id number] TOT & PHEN SERUM Specimen Type: SERUM Comment: MM Phenotype is considered to be normal , producing normal serum levels of qbgue-6-rbbmonls inhibitor and not associated with clinical disease. Associated A1A total serum levels in other phenotypes and their incidence in the general population are shown in the table below. Phenotype Population % function A-1-AT Conc.* Incidence % compared to MM (Typical Range) MM 86.5% 100% (96 - 189) MS 8.0% 86% (83 - 161) MZ 3.9% 61% (60 - 111) FM 0.4% 100% (93 - 191) SZ 0.3% 41% (42 - 75) SS 0.1% 64% (62 - 119) ZZ 0.05% 19% (16 - 38) FS 0.05% 70% (70 - 128) FZ Unknown 46% (44 - 88) FF Unknown Unknown *A-1-AT concentration in the homozygous MM phenotype is taken as the reference normal. Percent deficiency in each phenotype is reported relative to this reference. Ranges used to confirm phenotype. Ordering Provider: EDWINA OLMOS Report Released Date/Time: Jun 26, 2024 01:40 PM Reporting Lab: [place] [phone] Performing Lab: [address] [address] PJAIY-6-UZZDBOJHTGO (TOTAL) 160 mg/dL 10 1-187 .A1A PHENOTYPE MM Jun 26, 2024 02:32 PM [facility] IMMUNOGLOBULIN E SERUM Specim en Type: SERUM No comment entered. Ordering Provider: EDWINA OLMOS Report Released Date/Time: Jun 26, 2024 01:39 PM Reporting Lab: [address] [address] Performing Lab: [address] [address] IMMUNOGLOBULIN E 183 [IU]/mL 6-495 Jun 26, 2024 02:32 PM [facility] SCLERODERMA 70 AB Quant SERUM Specimen Type: SERUM No comment entered. Ordering Provider: EDWINA OLMOS Report Released Date/Time: Jun 26, 2024 01:40 PM Reporting Lab: [address] [address] Performing Lab: [address] [address] SCLERODERMA 70 AB Quant 0.2 0.0-0.9 Jun 26, 2024 02:32 PM [facility] ANTI-NUCLEAR Ab SERUM Specime n Type: SERUM Comment: Atypical speckled resembling DFS (Dense-Fine Speckled. The DFS pattern has a low prevalence in systemic autoimmune rheumatic diseases. The clinical association remains unclear. Due to its close resemblance to other patterns of clinical relevance, (i.e. Homogeneous, speckled, and mixed patterns) follow-up testing may be recommended. Ordering Provider: EDWINA OLMOS Report Released Date/Time: Jun 26, 2024 01:40 PM Reporting Lab: [address] [address] Performing Lab: [address] [address] ANTI-NUCLEAR Ab 1:320 Atypical Speckled <1:80 Jun 26, 2024 02:32 PM [facility] ANTI-NEUTROPHIL CYTOPLASMIC AB SERUM Specimen Type: SERUM Comment: The presence of positive fluorescence exhibiting P-ANCA or C-ANCA patterns alone is not specific for the diagnosis of Gerard's Granulomatosis (WG) or microscopic polyangiitis. Decisions about treatment should not be based solely on ANCA IFA results. The International ANCA Group Consensus recommends follow up testing of positive sera with both WI- 3 and MPO-ANCA enzyme immunoassays. As many as 5% serum samples are positive only by EIA. Ref. AM J Clin Pathol 1999;111:507-513. The atypical pANCA pattern has been observed in a significant percentage of patients with ulcerative colitis, primary sclerosing cholangitis and autoimmune hepatitis. Ordering Provider: EDWINA OLMOS Report Released Date/Time: Jun 26, 2024 01:40 PM Reporting Lab: [address] [address] Performing Lab: [address] [address] .C-ANCA <1:20 {titer} Neg:<1:20 .P-ANCA <1:20 {titer} Neg:<1:20 .ATYPICAL ANCA <1:20 {titer} Neg:<1:20 Jun 26, 2024 02:32 PM [facility] ANTI-CCP (SRL) SERUM Specimen Type: SERUM No comment entered. Ordering Provider: EDWINA OLMOS Report Released Date/Time: Jun 26, 2024 01:40 PM Reporting Lab: [place] [address] Performing Lab: [place] [address] ANTI-CCP (SRL) <0.5 0.5-2.9 Jun 26, 2024 02:32 PM [facility] RHEUMATOID FACTOR SERUM Speci men Type: SERUM No comment entered. Ordering Provider: EDWINA OLMOS Report Released Date/Time: Jun 26, 2024 01:40 PM Reporting Lab: [place] [address] Performing Lab: [place] [address] RHEUMATOID FACTOR <8 NEGATIVE [IU]/mL <8 NEGATIVE Jun 26, 2024 02:32 PM [facility] CRP (for acute inflammation) PLASMA Specimen T ype: PLASMA No comment entered. Ordering Provider: EDWINA OLMOS Report Released Date/Time: Jun 26, 2024 01:40 PM Reporting Lab: [place] [address] Performing Lab: [place] [address] CRP (for acute inflammation) 1.6 mg/L 0. 0-5.0 Jun 26, 2024 02:32 PM [facility] AUTOMATED DIFF BLOOD Specimen Type: BLOOD No comment entered. Ordering Provider: EDWINA OLMOS Report Released Date/Time: Jun 26, 2024 01:40 PM Reporting Lab: [place] [phone] Performing Lab: [place] [address] A-LYMPH % 19.3 L 24.0-44.0 A-MONO % 9.2 H 0.1-6.0 A-GRAN % 69.8 42.0-75.0 A-LYMPH # 1.16 10*3/uL L 1.20-3.40 A-MONO # 0.55 10*3/uL 0.00-0.60 A-GRAN # 4.20 10*3/uL 1.40-6.50 A-BASO % 0.2 0.0-3.0 A-BASO # 0.01 10*3/uL 0.00-0.20 A-EOS % 1.0 0.0-10.0 A-EOS # 0.06 10*3/uL 0.00-0.70 A-IG % 0.5 0.0-0.5 A-IG # 0.03 10*3/uL 0.00-0.06 Jun 26, 2024 02:32 PM [facility] CBC/PLT BLOOD Specimen Type: BLOOD No comment entered. Ordering Provider: EDWINA OLMOS Report Released Date/Time: Jun 26, 2024 01:40 PM Reporting Lab: [address] [address] Performing Lab: [address] [address] WBC 6.0 10*3/uL 5.0-10.0 RBC 4.51 10*6/uL L 4.6-6.2 HGB 13.4 g/dL L 14.0-18.0 HCT 43.8 42.0-52.0 MCV 97.1 fL H 80.0-94.0 MCH 29.7 pg 27.0-31.0 MCHC 30.6 g/dL L 32.0-36.0 PLT 223 10*3/uL 150-450 MPV 10.1 fL 9.0-13.1 RDW 13.9 11.0-16.0 NRBC 0.0 0.0-0.0 Jun 26, 2024 12:00 PM [facility] TOTAL PROTEIN URINE Specimen Type: URINE No comment entered. Ordering Provider: RUDY RICARDO Report Released Date/Time: Apr 17, 2024 01:37 PM Reporting Lab: [address] [address] Performing Lab: [address] [address] TOTAL PROTEIN 17 mg/dL H 0-14 Jun 26, 2024 12:00 PM [facility] CREATININE URINE Specimen Type: URINE No comment entered. Ordering Provider: RUDY RICARDO Report Released Date/Time: Apr 17, 2024 01:37 PM Reporting Lab: [address] [address] Performing Lab: [address] [address] CREATININE 90.8 mg/dL Jun 26, 2024 11:54 AM [facility] PTH INTACT (MCCALL) PLASMA Spe [...] interfere. Heterophilic antibodies can interfere. Ordering Provider: RUDY RICARDO Report Released Date/Time: Apr 17, 2024 01:37 PM Reporting Lab: [address] [address] Performing Lab: [address] [address] PTH INTACT (MCCALL) 104.5 pg/mL H 8.7-77.1 Jun 26, 2024 11:54 AM [facility] 25-OH VITAMIN D SERUM Specime n Type: SERUM Comment: The National Institutes of Health (NIH) recommendations state: <12 ng/mL - Deficient 20 - 50 ng/mL - Optimal Levels - adequate for most people. >50 ng/mL - Increased risk of hypercalciuria/other health problems - clinical correlation is required. These reference ranges represent clinical decision values rather than population-based reference values. Ordering Provider: RUDY RICARDO Report Released Date/Time: Apr 17, 2024 01:37 PM Reporting Lab: [address] [address] Performing Lab: [address] [address] 25-OH VITAMIN D 41.5 ng/mL 20.0-50.0 Jun 26, 2024 11:54 [facility] Specimen Type: PLASM A [...] decrease <15 G5 Kidney failure Ordering Provider: RUDY RICARDO Report Released Date/Time: Apr 17, 2024 01:37 PM Reporting Lab: [address] [address] Performing Lab: [address] [address] CREATININE 2.31 mg/dL H 0.72-1.25 UREA NITROGEN 39 mg/dL H 9-25 GLUCOSE 101 mg/dL H 74-100 SODIUM 140 mmol/L 136-145 POTASSIUM 5.0 mmol/L 3.5-5.1 CHLORIDE 108 mmol/L H 98-107 CO2 23 mmol/L 22-29 CALCIUM 9.6 mg/dL 8.4-10.2 PHOSPHORUS 3.2 mg/dL 2.3-4.7 ALBUMIN 4.1 g/dL 3.5-5.2 ANION GAP 9 meq/L 3-19 eGFR (CKD-EPI) Jun 26, 2024 11:54 AM [facility] Specimen Type: BLOOD No comment entered. Ordering Provider: RUDY RICARDO Report Released Date/Time: Apr 17, 2024 01:37 PM Reporting Lab: [address] [address] Performing Lab: [address] [address] WBC 6.4 10*3/uL 5.0-10.0 RBC 4.43 10*6/uL L 4.6-6.2 HGB 13.3 g/dL L 14.0-18.0 HCT 42.9 42.0-52.0 MCV 96.8 fL H 80.0-94.0 MCH 30.0 pg 27.0-31.0 MCHC 31.0 g/dL L 32.0-36.0 PLT 230 10*3/uL 150-450 MPV 9.8 fL 9.0-13.1 RDW 13.8 11.0-16.0 NRBC 0.0 0.0-0.0 Social History: Smoking Status (Most current) and Tobacco Use (All prior to encounter date) This section includes the most current, and the historical, smoking and tobacco- related health factors from the MD facility where the Encounter took place. Current Smoking Status This section includes the most current smoking, or tobacco-related health factor, from the MD facility where the Encounter took place. Date/Time Current Smoking Status Comment Facil ity May 10, 2024 02:00 PM VA-TOBACCO NEVER USED [facility] Tobacco Use History This section includes a history of the smoking, or tobacco-related health factors, that were collected on or before the date of the Encounter. The data comes from the MD facility where the Encounter took place. Date/Time Smoking Status/Tobacco Use Comment F acility May 19, 2017 03:22 AM NON-TOBACCO USE INPATIENT [facility] Sep 07, 2016 02:41 AM NON-TOBACCO USE INPATIENT [facility] Apr 21, 2004 08:29 AM HF V9 CURRENT NON-SMOKER quit smoking about 30 yrs ago [facility] Sep 06, 2002 02:26 PM HF V9 CURRENT NON-SMOKER QUIT SMOKING ABOUT 31 YRS AGO [facility] Encounter Notes: All associated encounter notes This section contains the clinical notes associated to the Encounter. Date/Time Encounter Note(s) Provider Source Jul 24, 2024 01:41 PM ADMINISTRATIVE NOT E: LOCAL TITLE: CLERICAL/ADMIN NOTE STANDARD TITLE: ADMINISTRATIVE NOTE DATE OF NOTE: JUL 24, 2024@13:41 ENTRY DATE: JUL 24, 2024@13:41:09 AUTHOR: TYLER PETERS EXP COSIGNER: URGENCY: STATUS: COMPLETED Called Mr. Huang about his rx for Amlodipine 10 mg. Faxing to [facility] in [place]. /jack/ TYLER PETERS Advanced Dockworker Signed: 07/24/2024 13:42 TYLER PETERS [facility]
--- OUTSIDE RECORDS SUMMARY | 2024-09-20 10:16 | XMS_ITS | Encounter Summary ---
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 Role Phone DALIA COBB Primary Care Provider Unavailabl e Insurance Providers: [...] Asif's Name Patient's Relationship to Policy Asif [facility] [place] [employer] MEDICARE SECONDARY (NO B EXC) TI AUTOM OTIVE - RETI Jul 25, 2018 [id number] MALUTI PERKINS SPOUSE MEDICARE (WNR) MEDICARE (M) PART B Jan 22, 2007 PART B [id number] MALUJUSTYNA TINAJEROE PATIENT MEDICARE (WNR) MEDICARE (M) PART A Sep 22, 2005 PART A [id number] MALUJUSTYNA TINAJERO PATIENT FOR LIFE TRICA RE FOR LIFE Jul 25, 2017 FOR LIFE [id number] REINA ROBBIE MALIN PATIENT Selected Encounter This section includes the information on record at [place] for the Encounter. Date/Time Encounter Type Encounter Description Reason Provider Source Sep 20, 2024 02:16 PM Outpatient Encounter HT NON-VIDEO MONITORING ICD-10-CM Z03.89 Encntr for obs for oth suspected diseases and cond ruled out SRINIVASAN BRUNNER IHE Encounter Template Text not used by [place] Assessments - Encounter Diagnoses This section includes the primary and secondary diagnoses documented for the Encounter. Date/Time Primary/Secondary Diagnosis Diagnosis Name Provider Source Sep 20, 2024 02:28 PM PRIMARY Encntr for obs for oth suspected diseases and cond ruled out SRINIVASAN BRUNNER [facility] Plan of Treatment: Future Appointments (+ 6 months) and Future Tests (+/- 45 days) The Plan of Treatment section includes future care activities for the patient from all [place] treatmentfacilities. This section includes future appointments and future orders which are active, pending or scheduled. Future Appointments This section includes appointments that were scheduled to occur 6 months from the date of the Encounter, up to a maximum of 20 appointments. The data comes from all [place] treatment facilities. Appointment Date/Time Appointment Type Appointme nt Facility Name Oct 02, 2024 01:00 PM AMBULATORY - MEDICINE [facility] Oct 25, 2024 09:00 AM AMBULATORY - MEDICINE [facility] December 03, 2024 01:00 PM AMBULATORY - NONE [place] [facility] December 06, 2024 12:15 PM AMBULATORY - MEDICINE [facility] December 14, 2024 08:00 AM AMBULATORY - NONE [place] Jan 04, 2025 01:30 PM AMBULATORY - SURGERY [place] [facility] Jan 31, 2025 03:00 PM AMBULATORY - MEDICINE [facility] Feb 05, 2025 01:00 PM AMBULATORY - MEDICINE [facility] Feb 05, 2025 02:00 PM AMBULATORY - MEDICINE [facility] Active, Pending, and Scheduled Orders This section includes a listing of several types of active, pending, and scheduled orders, including clinic medications orders, diagnostic test orders, procedure orders and consult orders; where the start date of the order is 45 days before the date of the Encounter or 45 days after the date of theEncounter. The data comes from all [place] treatment facilities. Test Date/Time Test Type Test Details Facility Name Aug 07, 2024 03:11 PM Procedure Order CP PULMONA RY FUNCTION TEST CP PULMONARY FUNCTION TEST Proc [place] [facility] Lab Results: +/- 30 days of the encounter This section includes the Chemistry and Hematology Lab Results on record with [place] for the patient. Radiology Reports and Pathology Reports are provided separately, in subsequent sections. Lab Results This section contains the Chemistry/Hematology Results that were resulted 30 days before or 30 daysafter the date of the Encounter. Date/Time Source Result Type Result - Unit Interpretation Reference Range Specimen Type Comment Oct 02, 2024 11:25 AM [facility] TOTAL PROTEIN URINE Specimen Type: URINE No comment entered. Ordering Provider: JOSE MANUEL KING Report Released Date/Time: Aug 24, 2024 11:02 AM Reporting Lab: [address] [address] Performing Lab: [address] [address] TOTAL PROTEIN 22 mg/dL H 0-14 Oct 02, 2024 11:25 AM [facility] CREATININE URINE Specimen Type: URINE No comment entered. Ordering Provider: JOSE MANUEL KING Report Released Date/Time: Aug 24, 2024 11:02 AM Reporting Lab: [address] [phone] Performing Lab: [address] [address] CREATININE 90.7 mg/dL Oct 02, 2024 11:25 AM [facility]INALYSIS URINE Specimen Type: URINE No comment entered. Ordering Provider: JOSE MANUEL KING Report Released Date/Time: Aug 24, 2024 11:02 AM Reporting Lab: [address] [phone] Performing Lab: [address] [phone] URINE COLOR Light Yellow Colorless-Yello w APPEARANCE Clear Clear UROBILINOGEN Normal mg/dL Normal URINE BLOOD Negative Negative URINE BILIRUBIN Negative Negative URINE KETONES Negative mg/dL Negative URINE PROTEIN TRACE mg/dL Negative-Trace URINE PH 5.5 4.5-8.0 URINE NITRITE Negative Negative URINE LEUKOCYTE EST Negative Negative SPECIFIC GRAVITY 1.018 1.005-1.030 URINE GLUCOSE >1000 mg/dL H Negative URINE WBC (i) <1 /[HPF] 0-3 SQUAMOUS EPITHELIAL (i) 3 /[LPF] 0-28 Oct 02, 2024 11:07 AM [facility] 25-OH VITAMIN D SERUM Specime n Type: SERUM Comment: The National Institutes of Health (NIH) recommendations state: <12 ng/mL - Deficient 20 - 50 ng/mL - Optimal Levels - adequate for most people. >50 ng/mL - Increased risk of hypercalciuria/other health problems - clinical correlation is required. These reference ranges represent clinical decision values rather than population-based reference values. Ordering Provider: JOSE MANUEL KING Report Released Date/Time: Aug 24, 2024 11:02 AM Reporting Lab: [address] [phone] Performing Lab: [address] [address] 25-OH VITAMIN D 38.2 ng/mL 20.0-50.0 Oct 02, 2024 11:07 AM [facility] PTH INTACT ([place]) PLASMA Spe cimen [...] interfere. Heterophilic antibodies can interfere. Ordering Provider: JOSE MANUEL KING Report Released Date/Time: Aug 24, 2024 11:02 AM Reporting Lab: [address] [phone] Performing Lab: [address] [address] PTH INTACT ([place]ALL) 145.8 pg/mL H 8.7-77.1 Oct 02, 2024 11:07 AM [facility] CBC/PLT BLOOD Specimen Type: BLOOD No comment entered. Ordering Provider: JOSE MANUEL KING Report Released Date/Time: Aug 24, 2024 11:02 AM Reporting Lab: [facility] [address] [facility] [address] Performing Lab: [place] [id number] [facility] [address] WBC 9.2 10*3/uL 5.0-10.0 RBC 4.19 10*6/uL L 4.6-6.2 HGB 12.6 g/dL L 14.0-18.0 HCT 39.9 L 42.0-52.0 MCV 95.2 fL H 80.0-94.0 MCH 30.1 pg 27.0-31.0 MCHC 31.6 g/dL L 32.0-36.0 PLT 247 10*3/uL 150-450 MPV 10.1 fL 9.0-13.1 RDW 14.4 11.0-16.0 NRBC 0.0 0.0-0.0 Oct 02, 2024 11:07 AM [facility] PANEL 4 PLASMA Specimen Type: PLASM A [...] decrease <15 G5 Kidney failure Ordering Provider: JOSE MANUEL KING Report Released Date/Time: Aug 24, 2024 11:02 AM Reporting Lab: [address] [address] Performing Lab: [address] [address] CREATININE 2.12 mg/dL H 0.72-1.25 UREA NITROGEN 33 mg/dL H 9-25 GLUCOSE 101 mg/dL H 74-100 SODIUM 145 mmol/L 136-145 POTASSIUM 4.2 mmol/L 3.5-5.1 CHLORIDE 111 mmol/L H 98-107 CO2 21 mmol/L L 22-29 CALCIUM 9.3 mg/dL 8.4-10.2 PHOSPHORUS 3.4 mg/dL 2.3-4.7 ALBUMIN 4.2 g/dL 3.5-5.2 ANION GAP 13 meq/L 3-19 eGFR (CKD-EPI) Oct 02, 2024 11:06 AM [facility] COMPLEMENT CH50 SERUM Specime n Type: SERUM Comment: Age Male Female 1 - 30 days Not Estab. Not Estab. 31 days - 6 months >32 >20 7 months - 17 years >39 >39 >17 years >41 >41 NOTE: The adult ( >17 years ) reference interval range is used to flag abnormals on this report. If the patient is 17 years old or younger, use the table above to determine out of range values. Ordering Provider: KRISTI NAIK Report Released Date/Time: Sep 11, 2024 11:57 AM Reporting Lab: [address] [address] Performing Lab: [address] [address] COMPLEMENT CH50 >60 >41 Oct 02, 2024 11:06 AM [facility] COMPLEMENT C3 SERUM Specimen Type: SERUM No comment entered. Ordering Provider: KRISTI NAIK Report Released Date/Time: Sep 11, 2024 11:57 AM Reporting Lab: [place] [phone] Performing Lab: [address] [address] COMPLEMENT C3 142 mg/dL 82-167 Oct 02, 2024 11:06 AM [facility] COMPLEMENT C4 SERUM Specimen Type: SERUM No comment entered. Ordering Provider: KRISTI NAIK Report Released Date/Time: Sep 11, 2024 11:57 AM Reporting Lab: [place] [phone] Performing Lab: [address] [address] COMPLEMENT C4 26 mg/dL 12-38 Oct 02, 2024 11:06 AM [facility] JORDAN SCREEN SERUM Specimen Type: SERUM No comment entered. Ordering Provider: KRISTI NAIK Report Released Date/Time: Sep 11, 2024 11:57 AM Reporting Lab: [place] [phone] Performing Lab: [place] [phone] JORDAN SCREEN Negative Negative Oct 02, 2024 11:06 AM [facility] ANTI-DNA Ab SERUM Specimen Type: SERUM No comment entered. Ordering Provider: KRISTI NAIK Report Released Date/Time: Sep 11, 2024 11:57 AM Reporting Lab: [place] [phone] Performing Lab: [place] [phone] ANTI-DNA Ab <1:10 -NEG <1:10 Sep 05, 2024 03:58 PM [facility] URINALYSIS WITH REFLEX TO CULTURE URINE Specimen Type: URINE No comment entered. Ordering Provider: JEB DONALD Report Released Date/Time: Sep 03, 2024 02:40 PM Reporting Lab: [address] [address] Performing Lab: [address] [address] URINE COLOR Light Yellow Colorless-Yello w APPEARANCE Clear Clear UROBILINOGEN Normal mg/dL Normal URINE BLOOD Negative Negative URINE BILIRUBIN Negative Negative URINE KETONES Negative mg/dL Negative URINE PROTEIN TRACE mg/dL Negative-Trace URINE PH 5.5 4.5-8.0 URINE NITRITE Negative Negative URINE LEUKOCYTE EST Negative Negative SPECIFIC GRAVITY 1.017 1.005-1.030 URINE GLUCOSE >1000 mg/dL H Negative URINE WBC (i) <1 /[HPF] 0-3 SQUAMOUS EPITHELIAL (i) 3 /[LPF] 0-28 Social History: Smoking Status (Most current) and Tobacco Use (All prior to encounter date) This section includes the most current, and the historical, smoking and tobacco- related health factors from the [place] facility where the Encounter took place. Current Smoking Status This section includes the most current smoking, or tobacco-related health factor, from the [place] facility where the Encounter took place. Date/Time Current Smoking Status Comment Kelechi ity May 25, 2023 01:30 PM VA-TOBACCO FORMER USER [facility] Tobacco Use History This section includes a history of the smoking, or tobacco-related health factors, that were collected on or before the date of the Encounter. The data comes from the [place] facility where the Encounter took place. Date/Time Smoking Status/Tobacco Use Comment F acility May 25, 2023 01:30 PM VA-TOBACCO QUIT 15 YRS OR MORE [facility] Jun 18, 2022 01:30 PM VA-TOBACCO FORMER USER [facility] Jun 18, 2022 01:30 PM VA-TOBACCO QUIT 15 YRS OR MORE [facility] Jun 29, 2021 03:00 PM VA-TOBACCO FORMER USER [facility] Jun 29, 2021 03:00 PM VA-TOBACCO QUIT 15 YRS OR MORE [facility] Jul 28, 2020 09:30 AM VA-TOBACCO FORMER USER [facility] Jul 28, 2020 09:30 AM VA-TOBACCO QUIT 15 YRS OR MORE [facility] Jul 09, 2019 03:25 PM VA-TOBACCO NEVER USED [facility] Aug 24, 2018 02:06 PM VA-TOBACCO FORMER USER [facility] Aug 24, 2018 02:06 PM VA-TOBACCO QUIT 15 YRS OR MORE [facility] Sep 22, 2017 07:57 AM V9 LIFETIME NON-USER OF TOBACCO [facility] December 15, 2015 08:07 AM V9 LIFETIME NON-USER OF TOBACCO [facility] Jun 14, 2014 07:48 AM V9 LIFETIME NON-USER OF TOBACCO [facility] Jun 07, 2013 10:08 AM V9 LIFETIME NON-USER OF TOBACCO [facility] May 29, 2012 10:26 AM V9 LIFETIME NON-USER OF TOBACCO [facility] Nov 22, 2011 02:23 PM V9 LIFETIME NON-USER OF TOBACCO [facility] Oct 23, 2010 09:22 AM V9 QUIT TOBACCO >7 YEARS AGO [facility] May 30, 2007 03:08 PM V9 LIFETIME NON-USER OF TOBACCO [facility] Encounter Notes: All associated encounter notes This section contains the clinical notes associated to the Encounter. Date/Time Encounter Note(s) Provider Source Sep 20, 2024 02:18 PM CARE COORDINATION HOME TELEHEALTH SUMMARIZATION NOTE: LOCAL TITLE: HT MONTHLY MONITOR NOTE STANDARD TITLE: CARE COORDINATION HOME TELEHEALTH SUMMARIZATION DATE OF NOTE: SEP 20, 2024@14:18 ENTRY DATE: SEP 20, 2024@14:19:29 AUTHOR: GARCIA BRUNNER EXP COSIGNER: URGENCY: STATUS: COMPLETED The [facility] is enrolled in the Home Telehealth (HT) program and continues to be monitored via HT technology. The data sent by the is reviewed and analyzed by the HT staff, who provide ongoing case management and health education while communicating and collaborating with the health care team as appropriate. This note covers a total of 30 minutes for the month monitored. Month monitored: August 2024 /jack/ GARCIA BRUNNER MSN, RN-BC SERVICE ORDER EXPEDITER Signed: 09/20/2024 14:29 GARCIA BRUNNER [facility]
--- OUTSIDE RECORDS SUMMARY | 2024-10-02 09:00 | XMS_ITS | Encounter Summary ---
Author Name [facility] [place] [facility] [place] [facility] [place] [facility] [place] Address [address] [place] [address] Care Team Providers Care Quarry Supervisor Open Pit Name Role Phone JORDYN DALIA Primary Care [...] AUTOM OTIVE - RETI Jul 25, 2018 [id number] MALUTI PERKINS JORDAN SPOUSE MEDICARE (WNR) MEDICARE (M) PART B Jan 22, 2007 PART B [id number] REINAJUSTYNA RGE PATIENT MEDICARE (WNR) MEDICARE (M) PART A Sep 22, 2005 PART A [id number] REINAJUSTYNA PATIENT FOR LIFE TRICA RE FOR LIFE Jul 25, 2017 SAPNA FOR LIFE [id number] ROBBIE HUANG JR PATIENT Selected Encounter This section includes the information on record at [place] for the Encounter. 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 This section includes future appointments and future orders which are active, pending or scheduled. Future Appointments This section includes appointments that were scheduled to occur 6 months from the date of the Encounter, up to a maximum of 20 appointments. The data comes from all [place] treatment facilities. Appointment Date/Time Appointment Type Appointme nt Facility Name Oct 25, 2024 09:00 AM AMBULATORY - MEDICINE [facility] December 03, 2024 01:00 PM AMBULATORY - NONE [place] [facility] December 06, 2024 12:15 PM AMBULATORY - MEDICINE [facility] December 14, 2024 08:00 AM [facility] [place] [facility] Jan 04, 2025 01:30 PM AMBULATORY - SURGERY [place] [facility] Jan 31, 2025 03:00 PM [facility] Feb 05, 2025 01:00 PM [facility] Feb 05, 2025 02:00 PM AMBULATORY - MEDICINE [facility] Lab Results: +/- 30 days of the encounter This section includes the Chemistry and Hematology Lab Results on record with [place] for the patient. Radiology Reports and Pathology Reports are provided separately, in subsequent sections. Lab Results This section contains the Chemistry/Hematology Results that were resulted 30 days before or 30 daysafter the date of the Encounter. Date/Time Source Result Type Result - Unit Interpretation Reference Range Specimen Type Comment Oct 02, 2024 11:25 AM [facility] WN TOTAL PROTEIN URINE Specimen Type: URINE No comment entered. Ordering Provider: JOSE MANUEL KING Report Released Date/Time: Aug 24, 2024 11:02 AM Reporting Lab: [address] [phone] Performing Lab: [address] [phone] TOTAL PROTEIN 22 mg/dL H 0-14 Oct 02, 2024 11:25 AM [facility] CREATININE URINE Specimen Type: URINE No comment entered. Ordering Provider: JOSE MANUEL KING Report Released Date/Time: Aug 24, 2024 11:02 AM Reporting Lab: [address] [phone] Performing Lab: [address] [phone] CREATININE 90.7 mg/dL Oct 02, 2024 11:25 AM [facility] URINALYSIS URINE Specimen Type: URINE No comment entered. Ordering Provider: JOSE MANUEL KING Report Released Date/Time: Aug 24, 2024 11:02 AM Reporting Lab: [address] [phone] Performing Lab: [address] [phone] URINE COLOR Light Yellow Colorless-Yello w APPEARANCE [...] /[LPF] 0-28 Oct 02, 2024 11:07 AM [facility] 25-OH VITAMIN D SERUM Specime n [...] Aug 24, 2024 11:02 AM Reporting Lab: [address] [phone] Performing Lab: [address] [phone] 25-OH VITAMIN D 38.2 ng/mL 20.0-50.0 Oct 02, 2024 11:07 AM [facility] PTH INTACT ([place]) PLASMA Spe cimen [...] Aug 24, 2024 11:02 AM Reporting Lab: [address] [phone] Performing Lab: [address] [phone] PTH INTACT ([place]) 145.8 pg/mL H 8.7-77.1 Oct 02, 2024 11:07 AM [facility] CBC/PLT BLOOD Specimen Type: BLOOD No comment entered. Ordering Provider: JOSE MANUEL KING Report Released Date/Time: Aug 24, 2024 11:02 AM Reporting Lab: [address] [phone] Performing Lab: [address] [phone] WBC 9.2 10*3/uL 5.0-10.0 RBC 4.19 10*6/uL L 4.6-6.2 HGB 12.6 g/dL L 14.0-18.0 HCT 39.9 L 42.0-52.0 MCV 95.2 fL H 80.0-94.0 MCH 30.1 pg 27.0-31.0 MCHC 31.6 g/dL L 32.0-36.0 PLT 247 10*3/uL 150-450 MPV 10.1 fL 9.0-13.1 RDW 14.4 11.0-16.0 NRBC 0.0 0.0-0.0 Oct 02, 2024 11:07 AM [facility] PANEL 4 PLASMA Specimen Type: PLASM A [...] Aug 24, 2024 11:02 AM Reporting Lab: [address] [phone] Performing Lab: [address] [phone] CREATININE 2.12 mg/dL H 0.72-1.25 UREA NITROGEN 33 mg/dL H 9-25 GLUCOSE 101 mg/dL H 74-100 SODIUM 145 mmol/L 136-145 POTASSIUM 4.2 mmol/L 3.5-5.1 CHLORIDE 111 mmol/L H 98-107 CO2 21 mmol/L L 22-29 CALCIUM 9.3 mg/dL 8.4-10.2 PHOSPHORUS 3.4 mg/dL 2.3-4.7 ALBUMIN 4.2 g/dL 3.5-5.2 ANION GAP 13 meq/L 3-19 eGFR (CKD-EPI) Oct 02, 2024 11:06 AM [facility] COMPLEMENT CH50 SERUM Specime n Type: [...] Sep 11, 2024 11:57 AM Reporting Lab: [address] [phone] Performing Lab: [address] [phone] COMPLEMENT CH50 >60 >41 Oct 02, 2024 11:06 AM [facility] COMPLEMENT C3 SERUM Specimen Type: SERUM No comment entered. Ordering Provider: KRISTI NAIK Report Released Date/Time: Sep 11, 2024 11:57 AM Reporting Lab: [place] [phone] Performing Lab: [address] [address] COMPLEMENT C3 142 mg/dL 82-167 Oct 02, 2024 11:06 AM [facility] COMPLEMENT C4 SERUM Specimen Type: SERUM No comment entered. Ordering Provider: KRISTI NAIK Report Released Date/Time: Sep 11, 2024 11:57 AM Reporting Lab: [address] [phone] Performing Lab: [address] [phone] COMPLEMENT C4 26 mg/dL 12-38 Oct 02, 2024 11:06 AM [facility] JORDAN SCREEN SERUM Specimen Type: SERUM No comment entered. Ordering Provider: KRISTI NAIK Report Released Date/Time: Sep 11, 2024 11:57 AM Reporting Lab: [place] [phone] Performing Lab: [place] [phone] JORDAN SCREEN Negative Negative Oct 02, 2024 11:06 AM [facility] ANTI-DNA Ab SERUM Specimen Type: SERUM No comment entered. Ordering Provider: KRISTI NAIK Report Released Date/Time: Sep 11, 2024 11:57 AM Reporting Lab: [place] [phone] Performing Lab: [place] [phone] ANTI-DNA Ab <1:10 -NEG <1:10 Sep 05, 2024 03:58 PM [facility] URINALYSIS WITH REFLEX TO CULTURE URINE Specimen Type: URINE No comment entered. Ordering Provider: JEB DONALD Report Released Date/Time: Sep 03, 2024 02:40 PM Reporting Lab: [address] [phone] Performing Lab: [place] [phone] URINE COLOR Light Yellow Colorless-Yello w APPEARANCE [...] and tobacco- related health factors from the [place] facility where the Encounter took place. Current Smoking Status This section includes the most current smoking, or tobacco-related health factor, from the [place] facility where the Encounter took place. Date/Time Current Smoking Status Comment Kelechi dial May 10, 2024 02:00 PM VA-TOBACCO NEVER USED [facility] Tobacco Use History This section includes a history of the smoking, or tobacco-related health factors, that were collected on or before the date of the Encounter. The data comes from the [place] facility where the Encounter took place. Date/Time Smoking Status/Tobacco Use Comment F octavia May 19, 2017 03:22 AM NON-TOBACCO USE INPATIENT [facility] Sep 07, 2016 02:41 AM NON-TOBACCO USE INPATIENT [facility] Apr 21, 2004 08:29 AM HF V9 CURRENT NON-SMOKER quit smoking about 30 yrs ago [facility] Sep 06, 2002 02:26 PM HF V9 CURRENT NON-SMOKER QUIT SMOKING ABOUT 31 YRS AGO [facility] Encounter Notes: All associated encounter notes This section contains the clinical notes associated to the Encounter. Date/Time Encounter Note(s) Provider Source Oct 02, 2024 03:23 PM NEPHROLOGY NOTE: LOCAL TITLE: RENAL CLINIC PROVIDER NOTE STANDARD TITLE: NEPHROLOGY NOTE DATE OF NOTE: OCT 02, 2024@15:23 ENTRY DATE: OCT 02, 2024@15:24:15 AUTHOR: APARNA KING EXP COSIGNER: JEB GALLEGOS URGENCY: STATUS: COMPLETED RENAL CLINIC PROVIDER NOTE Has ADDENDA ( ) Nursing Intake Note Reviewed Pain: 0 (10/02/2024 12:11) Reason for Visit: CKD follow up Physician History and Exam: Last seen in our clinic 06/26/24. Since that time no major medical changes or hospitalizations since that time. patient states he has been routinely checking his BP at home with readings 120s-130s/60s. Denies dysuria, difficulty urinating, hematuria, shortness of breath, LE edema, or chest pain. TEMP: Measurement DT TEMP F(C) 10/02/2024 12:11 97.5(36.4) PULSE: Measurement DT PULSE 10/02/2024 12:11 72 BLOOD PRESSURE: Measurement DT BP 10/02/2024 12:11 132/64 RESPIRATIONS: No values within 24 hours WEIGHT: Measurement DT WEIGHT LB(KG)[BMI] 10/02/2024 12:11 188.0(85.28)[30*] RENAL VASCULAR DUPLEX - NONE FOUND - 1Y Active Outpatient Medications (including Supplies): Active Outpatient Medications Status 1) EMPAGLIFLOZIN 10MG TAB TAKE ONE TABLET BY MOUTH EVERY ACTIVE MORNING PROTEINURIA Active Non-VA Medications Status 1) Non-VA AMLODIPINE BESYLATE 10MG TAB 10MG MOUTH DAILY ACTIVE Indication: FOR BLOOD PRESSURE/HEART 2) Non-VA CHOLECALCIF 25MCG (D3-1,000UNIT) TAB 1000UNIT MOUTH ACTIVE DAILY 3) Non-VA CLOPIDOGREL BISULFATE 75MG TAB 75MG MOUTH DAILY ACTIVE Indication: TO THIN BLOOD 4) Non-VA MULTIVIT/OPHTH AREDS2/LUTE/ZEAX CAP/TAB 1 SOFTGEL ACTIVE MOUTH TWICE A DAY AFTER MEALS 5) Non-VA ROSUVASTATIN TAB 10MG MOUTH DAILY ACTIVE Indication: FOR CHOLESTEROL 6 Total Medications Labs/Ancillary: Sodium: 145 mmol/L (10/02/2024 11:07) Potassium: 4.2 mmol/L (10/02/2024 11:07) Chloride: 111 mmol/L H (10/02/2024 11:07) CO2: 21 mmol/L L (10/02/2024 11:07) Creatinine: Collection DT Specimen Test Name Result Units Ref Range 10/02/2024 11:25 URINE CREATININE 90.7 mg/dL BUN: 33 mg/dL H (10/02/2024 11:07) URR: Glucose: 101 mg/dL H (10/02/2024 11:07) Calcium: 9.3 mg/dL (10/02/2024 11:07) Phosphorus: 3.4 mg/dL (10/02/2024 11:07) Albumin: 4.2 g/dL (10/02/2024 11:07) Alk Phos: 110 U/L (05/25/2024 11:17) WBC: 9.2 K/cmm (10/02/2024 11:07) HCT: 0 HGB: 0 Platelets: 0 Iron Sat: ____ Total Protein: 22 mg/dL H (10/02/2024 11:25) Ferritin: ____ Transferrin Sat: ____ PTH, Intact: 0 HbsAg: ()Negative ()Positive Exam: GEN: NAD,alert PULM: No resp distress, equal chest rise CARD: RRR, Trace LE Edema ABD: soft, non-tender, nondistended NEURO: A&O, no cognitive imapirment noted. Diagnosis / Impression: #CKD 3B/4 -etiology: atributed to long-standing HTN, prior nephrolithiasis; in recent years, has had AKIs due to to hypotension in the setting of polypharmacy -creatinine baseline now ~2.2-3.0; at 2.1 today (eGFR 30) -proteinuria: UPCR 0.2 -On Empagliflozin 10 mg daily since December 2023. -electrolytes, acid-base status stable #CKD-MBD -vitamin D appropriate (41), PTH elevated but somewhat improved - Ca, phos wnl -on low-dose vitamin D supplementation #CAD #HFrEF secondary to ischemic cardiomyopathy -Currently only on Plavix and Statin # Anemia - Hgb 12.6 - Goal Hgb >10 Recommendations and Plan: - Renal function remains stable - Maintain a Low K diet. - Counseled to avoid NSAIDs, dehydration - RTC with repeat labs in 4 months. /earline KING Signed: 10/02/2024 15:29 /jack/ JEB GALLEGOS ATTENDING PHYSICIAN Cosigned: 10/02/2024 15:30 10/02/2024 ADDENDUM STATUS: COMPLETED Pt seen and examined with Dr. King, agree with his findings. He has stable CKD and we will follow in the renal clinic. /jack/ JEB GALLEGOS ATTENDING PHYSICIAN Signed: 10/02/2024 15:31 10/03/2024 ADDENDUM STATUS: COMPLETED Diagnosis/problems,lab results, medication review and changes,treatment plan and follow up discussed with /significant other/caregiver by provider. [place] exited clinic per provider. RTC determined per provider (order/note). Provider to notify and discuss procedure/lab results if deemed necessary. /jack/ CHRITSIN DOMINGUEZ RN [facility] Diabetes/Endocrine/Shade Cutter Signed: 10/03/2024 11:27 APARNA KING-CDD [facility] Oct 02, 2024 12:14 PM NURSING OUTPATIENT NOTE: LOCAL TITLE: [facility] MEDICINE CLINIC INTAKE NOTE STANDARD TITLE: NURSING OUTPATIENT NOTE DATE OF NOTE: OCT 02, 2024@12:14 ENTRY DATE: OCT 02, 2024@12:14:17 AUTHOR: MONIE LUNDBERG EXP COSIGNER: URGENCY: STATUS: COMPLETED Reason for visit/chief complaint: B/P: 132/64 (10/02/2024 12:11) P: 72 (10/02/2024 12:11) R: 18 (06/26/2024 14:06) T: 97.5 F [36.4 C] (10/02/2024 12:11) HT: 66 in [167.6 cm] (05/25/2024 13:57) WT: 188.0 lb [85.28 kg] (10/02/2024 12:11) Are you having any pain or recurrent pain in the last several weeks/months? No Location: Duration: Characteristics: Pain education material offered to patient (for pain > 3) No Risk factors history: Hypertension Yes BP Rechecked No Comments: Patient notified bunch trimmer mold available upon request for any examinations/procedures. The patient was given a list of his/her medications, instructed to review and discuss any changes or problems with their provider. Patient advised to carry a list of current medications and any allergies with them in the event of emergency situations. Allergies: local and remote ASPIRIN, ATORVASTATIN No Remote Allergy/ADR Data available for this patient Medication Reconciliation ACTIVE OUTPATIENT MEDICATIONS LOCAL/REMOTE EMPAGLIFLOZIN 10MG TAB Directions: TAKE ONE TABLET BY MOUTH EVERY MORNING PROTEINURIA Quantity: 90 for 90 days Issued: 12/06/23 Filled: 08/22/24 Expires: 12/06/24 Refills: 0 Status: ACTIVE No remote medications found. PENDING OUTPATIENT MEDICATONS (LOCAL/REMOTE): No local medications found. No remote medications found. ACTIVE NONVA MEDICATIONS (LOCAL): AMLODIPINE BESYLATE 10MG TAB Directions: 10MG MOUTH DAILY Status: ACTIVE CHOLECALCIF 25MCG (D3-1,000UNIT) TAB Directions: 1000UNIT MOUTH DAILY Status: ACTIVE CLOPIDOGREL BISULFATE 75MG TAB Directions: 75MG MOUTH DAILY Status: ACTIVE MULTIVIT/OPHTH AREDS2/LUTE/ZEAX CAP/TAB Directions: 1 SOFTGEL MOUTH TWICE A DAY AFTER MEALS Status: ACTIVE ROSUVASTATIN TAB Directions: 10MG MOUTH DAILY Status: ACTIVE OUTPATIENT MEDICATIONS (LOCAL)WITHIN 90 DAYS: No local medications found. DISCONTINUED OUTPATIENT MEDICATIONS (LOCAL) WITHIN 90 DAYS: AMLODIPINE BESYLATE 5MG TAB Directions: TAKE ONE TABLET BY MOUTH DAILY FOR BLOOD PRESSURE/HEART -DO NOT DRINK GRAPEFRUIT JUICE WHILE ON THIS DRUG Quantity: 30 for 30 days Issued: 06/27/24 Filled: 06/28/24 Expires: 06/28/25 Refills: 1 Status: DISCONTINUED AMLODIPINE BESYLATE 5MG TAB Directions: TAKE ONE TABLET BY MOUTH DAILY FOR BLOOD PRESSURE/HEART -DO NOT DRINK GRAPEFRUIT JUICE WHILE ON THIS DRUG Quantity: 30 for 30 days Issued: 06/28/24 Filled: 08/13/24 Expires: 06/29/25 Refills: 1 Status: DISCONTINUED AMLODIPINE BESYLATE 2.5MG TAB Directions: TAKE ONE TABLET BY MOUTH DAILY FOR BLOOD PRESSURE/HEART -DO NOT DRINK GRAPEFRUIT JUICE WHILE ON THIS DRUG Quantity: 30 for 30 days Issued: 06/08/24 Filled: 06/11/24 Expires: 07/08/24 Refills: 0 Status: DISCONTINUED (EDIT) CLINIC MEDICATIONS (LOCAL): No local medications found. Reviewed current medications with patient/signficant other, patient/significant other reports patient taking ALL VA, Non VA & OTC medications as listed on [facility] medication tab outpatient section. Yes *Printed copy of medication list provided to patient and reviewed. Yes *Explained to the patient the importance of keeping providers updated on medication changes and to carrying an updated list of medication at all times in case of an emergency situation. Yes /jack/ MONIE LUNDBERG LPN LPN Signed: 10/02/2024 12:15 MONIE LUNDBERG-ISMAEL [facility]
--- OUTSIDE RECORDS SUMMARY | 2024-10-25 05:00 | XMS_ITS | Encounter Summary ---
Author Name [facility] [place] [facility] [place] [facility] [place] Address [address] [place] [address] Care Team Providers Care Access Director Name Role Phone JORDYN DALIA Primary Care [...] AUTOM OTIVE - RETI Jul 25, 2018 [id number] MALUTI PERKINS JORDAN SPOUSE MEDICARE (WNR) MEDICARE (M) PART B Jan 22, 2007 PART B [id number] MALUJUSTYNA TINAJERO RGE PATIENT MEDICARE (WNR) MEDICARE (M) PART A Sep 22, 2005 PART A [id number] MALUJUSTYNA TINAJERO PATIENT FOR LIFE TRICA RE FOR LIFE Jul 25, 2017 [facility] FOR LIFE [id number] ROBBIE HUANG JR PATIENT Selected Encounter This section includes the information on record at [place] for the Encounter. Date/Time Encounter Type Encounter Description Reason Provider Source Oct 25, 2024 09:00 AM OFFICE O/P NEW LOW 30 MIN RHEUMATOLOGY/ARTHR ITIS ICD-10-CM R76.0 Raised antibody titer POLO FINK Kal Encounter Template Text not used by [place] Assessments - Encounter Diagnoses This section includes the primary and secondary diagnoses documented for the Encounter. Date/Time Primary/Secondary Diagnosis Diagnosis Name Provider Source Nov 02, 2024 10:22 AM PRIMARY Raised antibody titer POLO FINK [facility] Nov 02, 2024 10:22 AM SECONDARY Interstitial pulmonary disease, unspecified POLO FINK [facility] Plan of Treatment: Future Appointments (+ 6 months) and Future Tests (+/- 45 days) The Plan of Treatment section includes [facility] care activities [facility] the [facility] [place] [facility] This section includes future appointments and future orders which are active, pending or scheduled. Future Appointments This section includes appointments that were scheduled to occur 6 months from the date of the Encounter, up to a maximum of 20 appointments. The data comes from all [place] treatment facilities. Appointment Date/Time Appointment Type Appointme nt Facility Name December 03, 2024 01:00 PM AM[place]ULATORY - NONE [place] [facility] December 06, 2024 12:15 PM AMBULATORY - MEDICINE [place] NGTON [facility] December 14, 2024 08:00 AM AMBULATORY - NONE [place] Jan 04, 2025 01:30 PM AMBULATORY - SURGERY [place] [facility] Jan 31, 2025 03:00 PM AMBULATORY - MEDICINE [place] NGTON-[facility] Feb 05, 2025 01:00 PM AMBULATORY - MEDICINE [place] NGTON-D [facility] Feb 05, 2025 02:00 PM [facility]UL[facility] Lab Results: +/- 30 days of the encounter This section includes the Chemistry and Hematology Lab Results on record with [place] for the patient. Radiology Reports and Pathology Reports are provided separately, in subsequent sections. Lab Results This section contains the Chemistry/Hematology Results that were resulted 30 days before or 30 daysafter the date of the Encounter. Date/Time Source Result Type Result - Unit Interpretation Reference Range Specimen Type Comment Oct 02, 2024 11:25 AM [facility] WN TOTAL PROTEIN URINE Specimen Type: URINE No comment entered. Ordering Provider: JOSE MANUEL KING Report Released Date/Time: Aug 24, 2024 11:02 AM Reporting Lab: [address] [address] Performing Lab: [address] [address] TOTAL PROTEIN 22 mg/dL H 0-14 Oct 02, 2024 11:25 AM [facility] CREATININE URINE Specimen Type: URINE No comment entered. Ordering Provider: JOSE MANUEL KING Report Released Date/Time: Aug 24, 2024 11:02 AM Reporting Lab: [address] [phone] Performing Lab: [address] [address] CREATININE 90.7 mg/dL Oct 02, 2024 11:25 AM [facility] URINALYSIS URINE Specimen Type: URINE No comment entered. Ordering Provider: JOSE MANUEL KING Report Released Date/Time: Aug 24, 2024 11:02 AM Reporting Lab: [address] [address] Performing Lab: [address] [address] URINE COLOR Light Yellow Colorless-Yello w APPEARANCE [...] /[LPF] 0-28 Oct 02, 2024 11:07 AM [facility] 25-OH VITAMIN D SERUM Specime [...] Aug 24, 2024 11:02 AM Reporting Lab: [address] [phone] Performing Lab: [address] [address] 25-OH VITAMIN D 38.2 ng/mL 20.0-50.0 Oct 02, 2024 11:07 AM [facility] PTH INTACT (MCCALL) PLASMA Spe [...] Aug 24, 2024 11:02 AM Reporting Lab: [address] [address] Performing Lab: [address] [address] PTH INTACT (M[place]ALL) 145.8 pg/mL H 8.7-77.1 Oct 02, 2024 11:07 AM [facility] CBC/PLT BLOOD Specimen Type: BLOOD No comment entered. Ordering Provider: JOSE MANUEL KING Report Released Date/Time: Aug 24, 2024 11:02 AM Reporting Lab: [address] [address] Performing Lab: [address] [address] WBC 9.2 10*3/uL 5.0-10.0 RBC 4.19 10*6/uL L 4.6-6.2 HGB 12.6 g/dL L 14.0-18.0 HCT 39.9 L 42.0-52.0 MCV 95.2 fL H 80.0-94.0 MCH 30.1 pg 27.0-31.0 MCHC 31.6 g/dL L 32.0-36.0 PLT 247 10*3/uL 150-450 MPV 10.1 fL 9.0-13.1 RDW 14.4 11.0-16.0 NRBC 0.0 0.0-0.0 Oct 02, 2024 11:07 AM [facility] PANEL 4 PLASMA Specimen Type: PLASM A [...] Aug 24, 2024 11:02 AM Reporting Lab: [address] [address] Performing Lab: [place] [phone] CREATININE 2.12 mg/dL H 0.72-1.25 UREA NITROGEN 33 mg/dL H 9-25 GLUCOSE 101 mg/dL H 74-100 SODIUM 145 mmol/L 136-145 POTASSIUM 4.2 mmol/L 3.5-5.1 CHLORIDE 111 mmol/L H 98-107 CO2 21 mmol/L L 22-29 CALCIUM 9.3 mg/dL 8.4-10.2 PHOSPHORUS 3.4 mg/dL 2.3-4.7 ALBUMIN 4.2 g/dL 3.5-5.2 ANION GAP 13 meq/L 3-19 eGFR (CKD-EPI) 30 Oct 02, 2024 11:06 AM [facility] COMPLEMENT CH50 SERUM Specime n Type: SERUM [...] Sep 11, 2024 11:57 AM Reporting Lab: [address] [phone] Performing Lab: [address] [address] COMPLEMENT CH50 >60 >41 Oct 02, 2024 11:06 AM [facility] COMPLEMENT C3 SERUM Specimen Type: SERUM No comment entered. Ordering Provider: KRISTI NAIK Report Released Date/Time: Sep 11, 2024 11:57 AM Reporting Lab: [address] [address] Performing Lab: [address] [address] COMPLEMENT C3 142 mg/dL 82-167 Oct 02, 2024 11:06 AM [facility] JORDAN SCREEN SERUM Specimen Type: SERUM No comment entered. Ordering Provider: KRISTI NAIK Report Released Date/Time: Sep 11, 2024 11:57 AM Reporting Lab: [address] [address] Performing Lab: [address] [phone] JORDAN SCREEN Negative Negative Oct 02, 2024 11:06 AM [facility] COMPLEMENT C4 SERUM Specimen Type: SERUM No comment entered. Ordering Provider: KRISTI NAIK Report Released Date/Time: Sep 11, 2024 11:57 AM Reporting Lab: [address] [address] Performing Lab: [address] [address] COMPLEMENT C4 26 mg/dL 12-38 Oct 02, 2024 11:06 AM [facility] ANTI-DNA Ab SERUM Specimen Type: SERUM No comment entered. Ordering Provider: KRISTI NAIK Report Released Date/Time: Sep 11, 2024 11:57 AM Reporting Lab: [address] [address] Performing Lab: [address] [phone] ANTI-DNA Ab <1:10 -NEG <1:10 Vital Signs: All taken on the encounter date This section contains inpatient and outpatient Vital Signs collected on the date of the Encounter. Date/Time Temperature Pulse Blood Pressure Respiratory Rate SP02 Pain Height Weight Body Mass Index Source Oct 25, 2024 08:27 AM 97.8 72 152/76 98 0 187.4 30 [place] [facility] Social History: Smoking Status (Most current) and Tobacco Use (All prior to encounter date) This section includes the most current, and the historical, smoking and tobacco- related health factors from the [place] facility where the Encounter took place. Current Smoking Status This section includes the most current smoking, or tobacco-related health factor, from the [place] facility where the Encounter took place. Date/Time Current Smoking Status Comment Kelechi dial May 25, 2023 01:30 PM VA-TOBACCO FORMER USER [facility] Tobacco Use History This section includes a history of the smoking, or tobacco-related health factors, that were collected on or before the date of the Encounter. The data comes from the [place] facility where the Encounter took place. Date/Time Smoking Status/Tobacco Use Comment F acility May 25, 2023 01:30 PM VA-TOBACCO QUIT 15 YRS OR MORE [facility] Jun 18, 2022 01:30 PM VA-TOBACCO FORMER USER [facility] Jun 18, 2022 01:30 PM VA-TOBACCO QUIT 15 YRS OR MORE [facility] Jun 29, 2021 03:00 PM VA-TOBACCO FORMER USER [facility] Jun 29, 2021 03:00 PM VA-TOBACCO QUIT 15 YRS OR MORE [facility] Jul 28, 2020 09:30 AM VA-TOBACCO FORMER USER [facility] Jul 28, 2020 09:30 AM VA-TOBACCO QUIT 15 YRS OR MORE [facility] Jul 09, 2019 03:25 PM VA-TOBACCO NEVER USED [facility] Aug 24, 2018 02:06 PM VA-TOBACCO FORMER USER [facility] Aug 24, 2018 02:06 PM VA-TOBACCO QUIT 15 YRS OR MORE [facility] Sep 22, 2017 07:57 AM V9 LIFETIME NON-USER OF TOBACCO [facility] December 15, 2015 08:07 AM V9 LIFETIME NON-USER OF TOBACCO [facility] Jun 14, 2014 07:48 AM V9 LIFETIME NON-USER OF TOBACCO [facility] Jun 07, 2013 10:08 AM V9 LIFETIME NON-USER OF TOBACCO [facility] May 29, 2012 10:26 AM V9 LIFETIME NON-USER OF TOBACCO [facility] Nov 22, 2011 02:23 PM V9 LIFETIME NON-USER OF TOBACCO [facility] Oct 23, 2010 09:22 AM V9 QUIT TOBACCO >7 YEARS AGO [facility] May 30, 2007 03:08 PM V9 LIFETIME NON-USER OF TOBACCO [facility] Encounter Notes: All associated encounter notes This section contains the clinical notes associated to the Encounter. Date/Time Encounter Note(s) Provider Source Oct 25, 2024 08:27 AM NURSING OUTPATIENT NOTE: LOCAL TITLE: [facility] INTAKE NOTE STANDARD TITLE: NURSING OUTPATIENT NOTE DATE OF NOTE: OCT 25, 2024@08:27 ENTRY DATE: OCT 25, 2024@08:27:24 AUTHOR: SARA RIDER EXP COSIGNER: URGENCY: STATUS: COMPLETED Reason for visit/chief complaint: Follow up B/P: 152/76 (10/25/2024 08:27) P: 72 (10/25/2024 08:27) R: 18 (06/26/2024 14:06) T: 97.8 F [36.6 C] (10/25/2024 08:27) HT: 66 in [167.6 cm] (05/25/2024 13:57) WT: 187.4 lb [85.00 kg] (10/25/2024 08:27) Are you having any pain or recurrent pain in the last several weeks/months? No Location: Duration: Characteristics: Pain education material offered to patient (for pain > 3) No Risk factors history: Hypertension Yes Have you taken your blood pressure medication today? Yes Do you have a BP cuff at home? Yes Does the home BP cuff work and is used at home? Yes What does your blood pressure run at home? BP Rechecked: No Manual blood pressure taken: No Primary Care crosscutter notified of elevated BP greater of 140/90: No Patient notified director cardiovascular available upon request for any examinations/procedures. The [...] 08/13/24 Expires: 06/29/25 Refills: 1 Status: DISCONTINUED CLINIC MEDICATIONS (LOCAL): No local medications found. Reviewed current medications with patient/signficant other, patient/significant other reports patient taking ALL VA, Non VA & OTC medications as listed on CPRS medication list provided. Vet provided medication list to review prior to appointment and physician will update this medication list with any changes at time of visit. Yes *Printed copy of medication list provided to patient and reviewed. Yes *Explained to the patient the importance of keeping providers updated on medication changes and to carrying an updated list of medication at all times in case of an emergency situation. Yes /jack/ SARA RIDER LPN Signed: 10/25/2024 08:27 SARA RIDER [facility] Oct 25, 2024 08:23 AM RHEUMATOLOGY CONSULT: LOCAL TITLE: RHEUMATOLOGY CONSULT RESPONSE STANDARD TITLE: RHEUMATOLOGY CONSULT DATE OF NOTE: OCT 25, 2024@08:23 ENTRY DATE: OCT 25, 2024@08:23:19 AUTHOR: POLO FINK EXP COSIGNER: URGENCY: STATUS: COMPLETED RHEUMATOLOGY CONSULT RESPONSE Has ADDENDA Patient is a 84 WHITE MALE here for evaluation of +PADMAJA in the setting of ILD He reports feeling well, and being diagnosed with ILD recently as he had adventitious sounds on exam by PCP. He had always been in good shape, a longstanding runner marathon races in the past and continues to exercise, walking at least a mile daily. He denies longstanding dyspnea, chronic cough -- although he was diagnosed with covid several weeks ago and has lingering cough since then. currently feels well. he has noticed color changes to the tips of his fingers when exposed to cold, which he has attributed to poor circulation. no dysphagia reported. no ho photosensitivity, recurrent rashes. he denies significant joint pain, stiffness or swelling. ems(- ) joint pain (- ) joint swelling (- ) Fever (- ) Weight loss (- ) Sicca(- ) mucous ulcers (- ) red/painful eyes (- ) myalgias (- ) soa (- ) chest pain (- ) abd pain (- ) n/v/d ( -) frequent infection (- ) raynauds (+ ) dysphagia ( -) alopecia (- ) photosensitivity (- ) rash (- ) PROBLEM LIST [including Allergies, and current medications ()]: Active problems - Computerized Problem List is the source for the followin. Long-term current use of antiplatelet drug 2. History of calculus of kidney 3. Exudative age-related macular degeneration 4. Chronic kidney disease stage 4 5. Anemia 6. Chronic kidney disease stage 4 due to type 2 diabetes mellitus 7. History of cholecystectomy 8. Overweight 9. Hearing loss (SNOMED CT 38195604) 10. Benign hypertensive renal disease 11. Allergic rhinitis (SNOMED CT 81312995) 12. History of rheumatic fever at age 6 13. Family h/o Cancer of GI Tract 14. Coronary artery disease (SNOMED CT 62772905) s/p VT 05/26 (stents) CHF (EF 40-45%) on ECHO 07/03/07 no reversible defect on stress test 05/31 15. 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 does not drink alcohol FH - no FH autoimmune disease that he is aware of. Active Outpatient Medications (including Supplies): Active Outpatient [...] ACTIVE Indication: FOR CHOLESTEROL 6 Total Medications ROS: all obtained and negative except Gen: fatigue/weight loss/fever ( ) Pulm: soa/cough (cough ) Card: cp/palp ( ) GI: n/v/d/abd pain/melena ( ) : dysuria/hematuria/hesitancy ( ) Endo: heat/cold intolerance ( ) Buddy: han/parasthesias/weakness ( ) EXAM GENERAL - nad, pleasant B/P - 132/64 (10/02/2024 12:11) HR - 72 (10/02/2024 12:11) HT - 66 in [167.6 cm] (05/25/2024 13:57) Wt - 188.0 lb [85.28 kg] (10/02/2024 12:11) HEENT - PERRL, EOMI, mmm, op clear Lungs - crackles bases R >L Card - RRR, +pulses Abd - +BS, soft, NT/ND Ext - No edema, clubbing, cyanosis MSK - synovitis, 5/5 motor strength, ROM Neuro - Non focal Skin - loss of wrinkles distal fingers LABS: WBC: 9.2 K/cmm (10/02/2024 11:07) Diff: AUTOMATED DIFF, BLOOD - Partial Panel found A-GRAN %, BLOOD, 06/26/24@1432 69.8 % (42.0 - 75.0) A-LYMPH %, BLOOD, 06/26/24@1432 19.3 L% (24.0 - 44.0) A-MONO %, BLOOD, 06/26/24@1432 9.2 H% (0.1 - 6.0) A-EOS %, BLOOD, 06/26/24@1432 1.0 % (0.0 - 10.0) A-BASO %, BLOOD, 06/26/24@1432 0.2 % (0.0 - 3.0) A-IG %, BLOOD, 06/26/24@1432 0.5 % (0.0 - 0.5) A-GRAN #, BLOOD, 06/26/24143 4.20 K/cmm (1.40 - 6.50) A-LYMPH #, BLOOD, 06/26/24143 1.16 LK/cmm (1.20 - 3.40) A-MONO #, BLOOD, 06/26/241432 0.55 K/cmm (0.00 - 0.60) A-EOS #, BLOOD, 06/26/24@1432 0.06 K/cmm (0.00 - 0.70) A-BASO #, BLOOD, 06/26/24143 0.01 K/cmm (0.00 - 0.20) A-IG #, BLOOD, 06/26/241432 0.03 K/cmm (0.00 - 0.06) Hgb: 0 Hct: 0 Plt: 0 Na: 145 mmol/L (10/02/2024 11:07) K: 4.2 mmol/L (10/02/2024 11:07) Cl: 111 mmol/L H (10/02/2024 11:07) C02: 21 mmol/L L (10/02/2024 11:07) BUN: 33 mg/dL H (10/02/2024 11:07) Cr: Collection DT Specimen Test Name Result Units Ref Range 10/02/2024 11:25 URINE CREATININE 90.7 mg/dL Gluc: 101 mg/dL H (10/02/2024 11:07) PT: 0 ESR: SED RATE (WESTERGREN, BLOOD - None Found CRP: C-REACTIVE PROTEIN (, SERUM - None Found RF: RHEUMATOID FACTOR, SERUM, 06/26/24@1432 <8 NEGATIVE IU/mL (Ref: <8 NEGATIVE) CCP: CCP IgG/IgA (TO 2-1-, SERUM - None Found Hep C: 0 Hep B: 0 PADMAJA: ANTI-NUCLEAR Ab, SERUM, 06/26/24@14017:320 Atypical Speckled (Ref: <1:80) JORDAN Screen: JORDAN SCREEN, SERUM, 10/02/24@1106 Negative (Ref: Negative) JORDAN profile: JORDAN PROFILE, SERUM - None Found Xrays: HAND 3 OR MORE VIEWS - NONE FOUND - 1Y CHEST 2 VIEWS PA&LAT - NONE FOUND - 1Y DEXA - NONE FOUND - 1Y ASSESSMENT/PLAN MRI brain 05/2024 Impression: Mild chronic small vessel ischemic changes, no acute intracranial abnormality. CT Chest 05/2024 Impression: Extensive interstitial lung disease and a hyperexpanded chest. The heart is enlarged and there is dense coronary calcification 1. NSIP- ILD - extensive workup includes PADMAJA at significant titer of 1:320 (atypical speckled) ; with negative subserologies and complements which are normal. - patient has minimal complaints and is still quite very active. - he does not meet criteria for a connective tissue disease at this time. i will note that on exam he has an almost waxy appearance to distal fingers with a degree of tautness and loss of wrinkles which can be seen in early sclerodactyly; this along with suspicion of mild raynaud's makes limited systemic sclerosis in the differential. i would like to follow patient clinically. - recommend follow up with pulmonary service with serial PFTs - FU 9-12 months or earlier if needed. /jack/ Polo Fink MD, Rheumatology Attending Signed: 10/25/2024 13:19 10/31/2024 ADDENDUM STATUS: COMPLETED [facility] exited clinic per . All medications and treatment plan was discussed with prior to exiting clinic by . to RTC in 9-12 months with RHEUM ATT1 LD via F2F. /jack/ JOSE MANUEL FUNG RN CASE MANAGER [facility] Signed: 10/31/2024 08:16 POLO FINK [facility]
--- OUTSIDE RECORDS SUMMARY | 2024-11-09 06:18 | XMS_ITS | Encounter Summary ---
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 DALIA COBB Primary Care [...] Asif's Name Patient's Relationship to Policy Asif [facility] [place] BLU[place] MEDICARE SECONDARY (NO B EXC) TI AUTOM OTIVE - RETI Jul 25, 2018 [id number] MALUTI PERKINS SPOUSE MEDICARE (WNR) MEDICARE (M) PART B Jan 22, 2007 PART B [id number] MALUJUSTYNA TINAJEROE PATIENT MEDICARE (WNR) MEDICARE (M) PART A Sep 22, 2005 PART A [id number] MALUJUSTYNA TINAJERO PATIENT FOR LIFE TRICA RE FOR LIFE Jul 25, 2017 FOR LIFE [id number] ROBBIE HUANG JR PATIENT Selected Encounter This section includes the information on record at [place] for the Encounter. Date/Time Encounter Type Encounter Description Reason Provider Source Nov 09, 2024 10:18 AM Outpatient Encounter HT NON-VIDEO MONITORING ICD-10-CM Z03.89 Encntr for obs for oth suspected diseases and cond ruled out SRINIVASAN BRUNNER IHE Encounter Template Text not used by [place] Assessments - Encounter Diagnoses This section includes the primary and secondary diagnoses documented for the Encounter. Date/Time Primary/Secondary Diagnosis Diagnosis Name Provider Source Nov 09, 2024 11:14 AM PRIMARY Encntr for obs for oth suspected diseases and cond ruled out SRINIVASAN BRNUNER [facility] Plan of Treatment: Future Appointments (+ 6 months) and Future Tests (+/- 45 days) The Plan of Treatment section includes future care activities for the patient from all [place] treatmentfacilities. This section includes future appointments and [...] PM [facility] [place] [facility] December 06, 2024 12:15 PM AMBULATORY - MEDICINE [facility] December 14, 2024 08:00 AM [facility] [place] [facility] Jan 04, 2025 01:30 PM [facility] [place] [facility] Jan 31, 2025 03:00 PM AMBULATORY - MEDICINE [facility] Feb 05, 2025 01:00 PM AMBULATORY - MEDICINE [facility] Feb 05, 2025 02:00 PM AMBULATORY - MEDICINE [facility] Lab Results: +/- 30 days [...] Unit Interpretation Reference Range Specimen Type Comment December 03, 2024 02:03 PM [facility] OWN PROTEIN ELECTROPHORESIS URINE Specimen Type: URINE No comment entered. Ordering Provider: DALIA COBB Report Released Date/Time: December 03, 2024 01:24 PM Reporting Lab: [address] [address] Performing Lab: [facility] [address] [facility] [address] TOTAL PROTEIN 17.0 mg/dL Not Estab. .ALBUMIN ELEC 29.4 .ALPHA 1 ELEC 5.2 .ALPHA 2 ELEC 21.5 .BETA ELEC 19.7 .GAMMA ELEC 24.2 .M-SPIKE Not Observed Not Observed December 03, 2024 02:03 PM [facility] CREATININE URINE Specimen Type: URINE No comment entered. Ordering Provider: DALIA COBB Report Released Date/Time: December 03, 2024 01:24 PM Reporting Lab: [address] [address] Performing Lab: [address] [address] CREATININE 63.6 mg/dL December 03, 2024 02:03 PM [facility] TOTAL PROTEIN URINE Specimen Type: URINE No comment entered. Ordering Provider: DALIA COBB Report Released Date/Time: December 03, 2024 01:24 PM Reporting Lab: [address] [address] Performing Lab: [place] [phone] TOTAL PROTEIN 16 mg/dL H 0-14 December 03, 2024 02:03 PM [facility] URINALYSIS URINE Specimen Type: URINE Comment: Microscopic not indicated Ordering Provider: DALIA COBB Report Released Date/Time: December 03, 2024 01:29 PM Reporting Lab: [address] [address] Performing Lab: [address] [address] URINE COLOR Light Yellow Colorless-Yello w APPEARANCE Clear Clear UROBILINOGEN Normal mg/dL Normal URINE BLOOD Negative Negative URINE BILIRUBIN Negative Negative URINE KETONES Negative mg/dL Negative URINE PROTEIN Negative mg/dL Negative-Tr rachell URINE PH 5.0 4.5-8.0 URINE NITRITE Negative Negative URINE LEUKOCYTE EST Negative Negative SPECIFIC GRAVITY 1.014 1.005-1.030 URINE GLUCOSE >1000 mg/dL H Negative December 03, 2024 01:45 PM [facility] ANTI-NUCLEAR Ab SERUM Specimen Type: SERUM Comment: Atypical speckled resembling DFS (Dense-Fine Speckled. The DFS pattern has a low prevalence in systemic autoimmune rheumatic diseases. The clinical association remains unclear. Due to its close resemblance to other patterns of clinical relevance, (i.e. Homogeneous, speckled, and mixed patterns) follow-up testing may be recommended. ANTI-NUCLEAR Ab reported incorrectly as Atypical Speckled by [[id number]]. Changed to 1:320 Atypical Speckled on December 06, 2024@12:59 by [[id number]]. Ordering Provider: DALIA COBB Report Released Date/Time: December 03, 2024 01:38 PM Reporting Lab: [address] [address] Performing Lab: [address] [address] ANTI-NUCLEAR Ab 1:320 Atypical Speckled <1:80 December 03, 2024 01:45 PM [facility] ROSALIE (SERUM) SERUM Specimen Type: SERUM Comment: BNP results less than or equal to 100 pg/ml are retention representative of normal values in patients without CHF. BNP results greater than 100 pg/ml are considered abnormal and suggestive of CHF. Higher BNP concentrations in the first 72 hours after Acute Coronary Syndrome are associated with an increased risk of , myocardial infarction and CHF. Ordering Provider: DALIA COBB Report Released Date/Time: December 03, 2024 01:24 PM Reporting Lab: [address] [address] Performing Lab: [address] [address] .ALBUMIN ELEC 3.6 g/dL 2.9-4.4 .ALPHA 1 ELEC 0.3 g/dL 0.0-0.4 .ALPHA 2 ELEC 1.0 g/dL 0.4-1.0 .BETA ELEC 1.1 g/dL 0.7-1.3 .GAMMA ELEC 1.1 g/dL 0.4-1.8 .IGG (SER-ROSALIE) 999 mg/dL 603-1613 .IGA (SER-ROSALIE) 276 mg/dL 61-437 .IGM (SER-ROSALIE) 63 mg/dL 15-143 .TOT SERUM PROT-LC 7.0 g/dL 6.0-8.5 .A/G RATIO SER-ROSALIE 1.1 0.7-1.7 .GLOBULIN SER-ROSALIE 3.4 g/dL 2.2-3.9 .M-SPIKE Not Observed g/dL Not Observed .ROSALIE INTERPRETATION Comment December 03, 2024 01:45 PM [facility] JORDAN SCREEN SERUM Specimen Type: SERUM No comment entered. Ordering Provider: DALIA COBB Report Released Date/Time: December 03, 2024 01:38 PM Reporting Lab: [address] [address] Performing Lab: [address] [address] JORDAN SCREEN Negative Negative December 03, 2024 01:45 PM [facility] BNP (Language123) PLASMA Specimen Type: PLASMA Comment: BNP results less than or equal to 100 pg/ml are retention representative of normal values in patients without CHF. BNP results greater than 100 pg/ml are considered abnormal and suggestive of CHF. Higher BNP concentrations in the first 72 hours after Acute Coronary Syndrome are associated with an increased risk of , myocardial infarction and CHF. Ordering Provider: DALIA COBB Report Released Date/Time: December 03, 2024 01:24 PM Reporting Lab: [address] [address] Performing Lab: [address] [address] BNP (MCCALL) 225 pg/mL H 0-100 December 03, 2024 01:45 PM [facility] CK TOTAL PLASMA Specimen Type: PLASM A Comment: Estimated [...] Ordering Provider: DALIA COBB Report Released Date/Time: December 03, 2024 01:33 PM Reporting Lab: [address] [address] Performing Lab: [address] [address] CK TOTAL 76 U/L 30-200 December 03, 2024 01:45 PM [facility] 5 PLASMA Specimen Type: PLASM A Comment: [...] Ordering Provider: DALIA COBB Report Released Date/Time: December 03, 2024 01:24 PM Reporting Lab: [address] [address] Performing Lab: [address] [address] CREATININE 2.05 mg/dL H 0.72-1.25 UREA NITROGEN 38 mg/dL H 9-25 GLUCOSE 93 mg/dL 74-100 SODIUM 141 mmol/L 136-145 POTASSIUM 4.5 mmol/L 3.5-5.1 CHLORIDE 112 mmol/L H 98-107 CO2 22 mmol/L 22-29 CALCIUM 9.3 mg/dL 8.4-10.2 TOTAL PROTEIN 7.8 g/dL 6.4-8.3 ALBUMIN 4.2 g/dL 3.5-5.2 TOTAL BILIRUBIN 0.8 mg/dL 0.2-1.2 AST 18 U/L 5-34 ALT 14 U/L 0-55 ANION GAP 7 meq/L 3-19 ALK PHOS 116 U/L 40-150 eGFR (CKD-EPI) 31 December 03, 2024 01:45 PM [facility] CBC/PLT BLOOD Specimen Type: BLOOD No comment entered. Ordering Provider: DALIA COBB Report Released Date/Time: December 03, 2024 01:33 PM Reporting Lab: [address] [address] Performing Lab: [place] [phone] WBC 5.6 10*3/uL 5.0-10.0 RBC 4.24 10*6/uL L 4.6-6.2 HGB 12.8 g/dL L 14.0-18.0 HCT 39.4 L 42.0-52.0 MCV 92.9 fL 80.0-94.0 MCH 30.2 pg 27.0-31.0 MCHC 32.5 g/dL 32.0-36.0 PLT 248 10*3/uL 150-450 MPV 10.2 fL 9.0-13.1 RDW 14.2 11.0-16.0 NRBC 0.0 0.0-0.0 December 03, 2024 01:45 PM [facility] AUTOMATED DIFF BLOOD Specimen Type: BLOOD No comment entered. Ordering Provider: DALIA COBB Report Released Date/Time: December 03, 2024 01:33 PM Reporting Lab: [address] [address] Performing Lab: [address] [address] A-LYMPH % 22.1 L 24.0-44.0 A-MONO % 10.3 H 0.1-6.0 A-GRAN % 64.4 42.0-75.0 A-LYMPH # 1.24 10*3/uL 1.20-3.40 A-MONO # 0.58 10*3/uL 0.00-0.60 A-GRAN # 3.61 10*3/uL 1.40-6.50 A-BASO % 0.2 0.0-3.0 A-BASO # 0.01 10*3/uL 0.00-0.20 A-EOS % 2.5 0.0-10.0 A-EOS # 0.14 10*3/uL 0.00-0.70 A-IG % 0.5 0.0-0.5 A-IG # 0.03 10*3/uL 0.00-0.06 Social History: Smoking Status (Most current) and [...] 25, 2023 01:30 PM VA-TOBACCO FORMER USER [facility] Tobacco Use History This section includes a history of the smoking, or tobacco-related health factors, that were collected on or before the date of the Encounter. The data comes from the [place] facility where the Encounter took place. Date/Time Smoking Status/Tobacco Use Comment [facility] May 25, 2023 01:30 PM VA-TOBACCO QUIT 15 YRS OR MORE [facility] Jun 18, 2022 01:30 PM VA-TOBACCO FORMER USER [facility] Jun 18, 2022 01:30 PM VA-TOBACCO QUIT 15 YRS OR MORE [facility] Jun 29, 2021 03:00 PM VA-TOBACCO FORMER USER [facility] Jun 29, 2021 03:00 PM VA-TOBACCO QUIT 15 YRS OR MORE [facility] Jul 28, 2020 09:30 AM VA-TOBACCO FORMER USER [facility] Jul 28, 2020 09:30 AM VA-TOBACCO QUIT 15 YRS OR MORE [facility] Jul 09, 2019 03:25 PM VA-TOBACCO NEVER USED [facility] Aug 24, 2018 02:06 PM VA-TOBACCO FORMER USER [facility] Aug 24, 2018 02:06 PM VA-TOBACCO QUIT 15 YRS OR MORE [facility] Sep 22, 2017 07:57 AM V9 LIFETIME NON-USER OF TOBACCO [facility] December 15, 2015 08:07 AM V9 LIFETIME NON-USER OF TOBACCO [facility] Jun 14, 2014 07:48 AM V9 LIFETIME NON-USER OF TOBACCO [facility] Jun 07, 2013 10:08 AM V9 LIFETIME NON-USER OF TOBACCO [facility] May 29, 2012 10:26 AM V9 LIFETIME NON-USER OF TOBACCO [facility] Nov 22, 2011 02:23 PM V9 LIFETIME NON-USER OF TOBACCO [facility] Oct 23, 2010 09:22 AM V9 QUIT TOBACCO >7 YEARS AGO [facility] May 30, 2007 03:08 PM V9 LIFETIME NON-USER OF TOBACCO [facility] Encounter Notes: All associated encounter notes This section contains the clinical notes associated to the Encounter. Date/Time Encounter Note(s) Provider Source Nov 09, 2024 10:35 AM CARE COORDINATION HOME TELEHEALTH SUMMARIZATION NOTE: LOCAL TITLE: HT MONTHLY MONITOR NOTE STANDARD TITLE: CARE COORDINATION HOME TELEHEALTH SUMMARIZATION DATE OF NOTE: NOV 09, 2024@10:35 ENTRY DATE: NOV 09, 2024@10:36:05 AUTHOR: GARCIA BRUNNER EXP COSIGNER: URGENCY: STATUS: COMPLETED The [place] is enrolled in the Home Telehealth (HT) program and continues to be monitored via HT technology. The data sent by the [place] is reviewed and analyzed by the staff, who provide ongoing case management and [facility] health education while communicating and collaborating with the health care team as appropriate. This note covers a total of 30 minutes for the month monitored. Month monitored: October/ GARCIA BRUNNER, MSN, RN-BC MASTER PLUMBER Signed: 11/09/2024 11:15 [facility]
--- OUTSIDE RECORDS SUMMARY | 2024-11-09 10:44 | XMS_ITS | Encounter Summary ---
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 Role Phone DALIA COBB Primary Care [...] Asif's Name Patient's Relationship to Policy Asif [facility] [place] BLU[place] MEDICARE SECONDARY (NO B EXC) TI AUTOM OTIVE - RETI Jul 25, 2018 [id number] MALUTI PERKINSA SPOUSE MEDICARE (WNR) MEDICARE (M) PART B Jan 22, 2007 PART B [id number] REINAJUSTYNA PATIENT MEDICARE (WNR) MEDICARE (M) PART A Sep 22, 2005 PART A [id number] RIENAJUSTYNA AKBAR PATIENT FOR LIFE TRICA RE FOR LIFE Jul 25, 2017 FOR LIFE [id number] REINA JRROBBIE PATIENT Selected Encounter This section includes the information on record at [place] for the Encounter. Date/Time Encounter Type Encounter Description Reason Pro vider Source Nov 09, 2024 02:44 PM Outpatient Encounter TELEPHONE BY HT STAFF IHE Encounter Template Text not used by [place] Plan of Treatment: Future Appointments (+ 6 months) and Future Tests (+/- 45 days) The Plan of Treatment section includes future care activities for the patient from all [place] treatmentfacilities. This section includes future appointments and future orders which are active, pending or scheduled. Future Appointments This section includes appointments that were scheduled to occur 6 months from the date of the Encounter, up to a maximum of 20 appointments. The data comes from all [place] treatment facilities. Appointment Date/Time Appointment Type Appointme nt Facility Name December 03, 2024 01:00 PM [facility]ORY [place] [facility] December 06, 2024 12:15 PM AMBULATORY - MEDICINE [facility] December 14, 2024 08:00 AM [facility] [place] Jan 04, 2025 01:30 PM AMBULATORY - SURGERY [place] [facility] [facility] Jan 31, 2025 03:00 PM AMBULATORY - MEDICINE [facility] Feb 05, 2025 01:00 PM AMBULATORY - MEDICINE [facility] Feb 05, 2025 02:00 PM AMBULATORY - MEDICINE [facility] Lab Results: +/- 30 days of the encounter This section includes the Chemistry and Hematology Lab Results on record with [place] for the patient. Radiology Reports and Pathology Reports are provided separately, in subsequent sections. Lab Results This section contains the Chemistry/Hematology Results that were resulted 30 days before or 30 daysafter the date of the Encounter. Date/Time Source Result Type Result - Unit Interpretation Reference Range Specimen Type Comment December 03, 2024 02:03 PM [facility] PROTEIN ELECTROPHORESIS URINE Specimen Type: URINE No comment entered. Ordering Provider: DALIA COBB Report Released Date/Time: December 03, 2024 01:24 PM Reporting Lab: [facility] [address] [facility] [address] Performing Lab: [place] [id number] [place] [phone] TOTAL PROTEIN 17.0 mg/dL Not Estab. .ALBUMIN ELEC 29.4 .ALPHA 1 ELEC 5.2 .ALPHA 2 ELEC 21.5 .BETA ELEC 19.7 .GAMMA ELEC 24.2 .M-SPIKE Not Observed Not Observed December 03, 2024 02:03 PM [facility] CREATININE URINE Specimen Type: URINE No comment entered. Ordering Provider: DALIA COBB Report Released Date/Time: December 03, 2024 01:24 PM Reporting Lab: [place] [phone] Performing Lab: [address] [address] CREATININE 63.6 mg/dL December 03, 2024 02:03 PM [facility] TOTAL PROTEIN URINE Specimen Type: URINE No comment entered. Ordering Provider: DALIA COBB Report Released Date/Time: December 03, 2024 01:24 PM Reporting Lab: [address] [address] Performing Lab: [place] [phone] TOTAL PROTEIN 16 mg/dL H 0-14 December 03, 2024 02:03 PM [facility] URINALYSIS URINE Specimen Type: URINE Comment: Microscopic not indicated Ordering Provider: DALIA COBB Report Released Date/Time: December 03, 2024 01:29 PM Reporting Lab: [address] [address] Performing Lab: [address] [address] URINE COLOR Light Yellow Colorless-Yello w APPEARANCE Clear Clear UROBILINOGEN Normal mg/dL Normal URINE BLOOD Negative Negative URINE BILIRUBIN Negative Negative URINE KETONES Negative mg/dL Negative URINE PROTEIN Negative mg/dL Negative-Tr rachell URINE PH 5.0 4.5-8.0 URINE NITRITE Negative Negative URINE LEUKOCYTE EST Negative Negative SPECIFIC GRAVITY 1.014 1.005-1.030 URINE GLUCOSE >1000 mg/dL H Negative December 03, 2024 01:45 PM [facility] ANTI-NUCLEAR Ab SERUM Specimen Type: SERUM Comment: Atypical speckled resembling DFS (Dense-Fine Speckled. The DFS pattern has a low prevalence in systemic autoimmune rheumatic diseases. The clinical association remains unclear. Due to its close resemblance to other patterns of clinical relevance, (i.e. Homogeneous, speckled, and mixed patterns) follow-up testing may be recommended. ANTI-NUCLEAR Ab reported incorrectly as Atypical Speckled by [[id number]]. Changed to 1:320 Atypical Speckled on December 06, 2024@12:59 by [[id number]]. Ordering Provider: DALIA COBB Report Released Date/Time: December 03, 2024 01:38 PM Reporting Lab: [address] [address] Performing Lab: [address] [address] ANTI-NUCLEAR Ab 1:320 Atypical Speckled <1:80 December 03, 2024 01:45 PM [facility]ERUM[facility] SERUM Specimen Type: SERUM Comment: BNP results less than or equal to 100 pg/ml are technical sales representatives of normal values in patients without CHF. BNP results greater than 100 pg/ml are considered abnormal and suggestive of CHF. Higher BNP concentrations in the first 72 hours after Acute Coronary Syndrome are associated with an increased risk of , myocardial infarction and CHF. Ordering Provider: DALIA COBB Report Released Date/Time: December 03, 2024 01:24 PM Reporting Lab: [address] [address] Performing Lab: [address] [address] .ALBUMIN ELEC 3.6 g/dL 2.9-4.4 .ALPHA 1 [...] INTERPRETATION Comment December 03, 2024 01:45 PM [facility] JORDAN SCREEN SERUM Specimen Type: SERUM No comment entered. Ordering Provider: DALIA COBB Report Released Date/Time: December 03, 2024 01:38 PM Reporting Lab: [address] [address] Performing Lab: [address] [address] JORDAN SCREEN Negative Negative December 03, 2024 01:45 PM [facility] BNP (Inflection) PLASMA Specimen Type: PLASMA Comment: BNP results less than or equal to 100 pg/ml are technical sales representatives of normal values in patients without CHF. BNP results greater than 100 pg/ml are considered abnormal and suggestive of CHF. Higher BNP concentrations in the first 72 hours after Acute Coronary Syndrome are associated with an increased risk of , myocardial infarction and CHF. Ordering Provider: DALIA COBB Report Released Date/Time: December 03, 2024 01:24 PM Reporting Lab: [address] [address] Performing Lab: [address] [address] BNP (MCCALL) 225 pg/mL H 0-100 December 03, 2024 01:45 PM [facility] CK TOTAL PLASMA Specimen Type: PLASM [...] December 03, 2024 01:33 PM Reporting Lab: [address] [address] Performing Lab: [address] [address] CK TOTAL 76 U/L 30-200 December 03, 2024 01:45 PM [facility] PANEL 5 PLASMA Specimen Type: PLASM A [...] December 03, 2024 01:24 PM Reporting Lab: [address] [address] Performing Lab: [address] [address] CREATININE 2.05 mg/dL H 0.72-1.25 UREA NITROGEN [...] ALK PHOS 116 U/L 40-150 eGFR (CKD-EPI) December 03, 2024 01:45 PM [facility] CBC/PLT BLOOD Specimen Type: BLOOD No comment entered. Ordering Provider: DALIA COBB Report Released Date/Time: December 03, 2024 01:33 PM Reporting Lab: [address] [address] Performing Lab: [place] [phone] WBC 5.6 10*3/uL 5.0-10.0 RBC 4.24 10*6/uL L 4.6-6.2 HGB 12.8 g/dL L 14.0-18.0 HCT 39.4 L 42.0-52.0 MCV 92.9 fL 80.0-94.0 MCH 30.2 pg 27.0-31.0 MCHC 32.5 g/dL 32.0-36.0 PLT 248 10*3/uL 150-450 MPV 10.2 fL 9.0-13.1 RDW 14.2 11.0-16.0 NRBC 0.0 0.0-0.0 December 03, 2024 01:45 PM [facility] AUTOMATED DIFF BLOOD Specimen Type: BLOOD No comment entered. Ordering Provider: DALIA COBB Report Released Date/Time: December 03, 2024 01:33 PM Reporting Lab: [address] [address] Performing Lab: [address] [address] A-LYMPH % 22.1 L 24.0-44.0 A-MONO % [...] and tobacco- related health factors from the [place] facility where the Encounter took place. Current Smoking Status This section includes the most current smoking, or tobacco-related health factor, from the [place] facility where the Encounter took place. Date/Time Current Smoking Status Comment Facil ity May 25, 2023 01:30 PM VA-TOBACCO FORMER USER [facility] Tobacco Use History This section includes a history of the smoking, or tobacco-related health factors, that were collected on or before the date of the Encounter. The data comes from the [place] facility where the Encounter took place. Date/Time Smoking Status/Tobacco Use Comment F acility May 25, 2023 01:30 PM VA-TOBACCO QUIT 15 YRS OR MORE [facility] Jun 18, 2022 01:30 PM VA-TOBACCO FORMER USER [facility] Jun 18, 2022 01:30 PM VA-TOBACCO QUIT 15 YRS OR MORE [facility] Jun 29, 2021 03:00 PM VA-TOBACCO FORMER USER [facility] Jun 29, 2021 03:00 PM VA-TOBACCO QUIT 15 YRS OR MORE [facility] Jul 28, 2020 09:30 AM VA-TOBACCO FORMER USER [facility] Jul 28, 2020 09:30 AM VA-TOBACCO QUIT 15 YRS OR MORE [facility] Jul 09, 2019 03:25 PM VA-TOBACCO NEVER USED [facility] Aug 24, 2018 02:06 PM VA-TOBACCO FORMER USER [facility] Aug 24, 2018 02:06 PM VA-TOBACCO QUIT 15 YRS OR MORE [facility] Sep 22, 2017 07:57 AM V9 LIFETIME NON-USER OF TOBACCO [facility] December 15, 2015 08:07 AM V9 LIFETIME NON-USER OF TOBACCO [facility] Jun 14, 2014 07:48 AM V9 LIFETIME NON-USER OF TOBACCO [facility] Jun 07, 2013 10:08 AM V9 LIFETIME NON-USER OF TOBACCO [facility] May 29, 2012 10:26 AM V9 LIFETIME NON-USER OF TOBACCO [facility] Nov 22, 2011 02:23 PM V9 LIFETIME NON-USER OF TOBACCO [facility] Oct 23, 2010 09:22 AM V9 QUIT TOBACCO >7 YEARS AGO [facility] May 30, 2007 03:08 PM V9 LIFETIME NON-USER OF TOBACCO [facility] Encounter Notes: All associated encounter notes This section contains the clinical notes associated to the Encounter. Date/Time Encounter Note(s) Provider Source Nov 09, 2024 02:44 PM CARE COORDINATION HOME TELEHEALTH NOTE: LOCAL TITLE: HT NOTE STANDARD TITLE: CARE COORDINATION HOME TELEHEALTH NOTE DATE OF NOTE: NOV 09, 2024@14:44 ENTRY DATE: NOV 09, 2024@14:44:40 AUTHOR: GARCIA BRUNNER EXP COSIGNER: URGENCY: STATUS: COMPLETED Attempted to contact regarding check in for HTN management. No answer. Left HIPAA friendly requesting return call. /jack/ GARCIA BRUNNER, MSN, RN-BC CLOTH CUTTER Signed: 11/09/2024 14:45 GARCIA BRUNNER [facility]
--- OUTSIDE RECORDS SUMMARY | 2024-11-15 08:15 | XMS_ITS | Encounter Summary ---
Author Name [facility] [place] [facility] [place] [facility] [place] Address [address] [place] [address] Care Team Providers Care General House Worker Name Role Phone JORDYN FARHAT Primary Care Provider Unavailabl e Insurance Providers: [...] AUTOM OTIVE - RETI Jul 25, 2018 [id number] MALUTI PERKINS SPOUSE MEDICARE (WNR) MEDICARE (M) PART B Jan 22, 2007 PART B [id number] MALUJUSTYNA TINAJERO RGE PATIENT MEDICARE (WNR) MEDICARE (M) PART A Sep 22, 2005 PART A [id number] REINAJUSTYNA AKBAR PATIENT FOR LIFE TRICA RE FOR LIFE Jul 25, 2017 FOR LIFE [id number] ROBBIE HUANG JR PATIENT Selected Encounter This section includes the information on record at [place] for the Encounter. Date/Time Encounter Type Encounter Description Reason Provider Source Nov 15, 2024 12:15 PM PH1 ASSMT&MGMT NQHP 11-20 TELEPHONE BY STAFF ICD-10-CM I10 Essential (primary) hypertension KEEGAN BRUNNER E Encounter Template Text not used by [place] Assessments - Encounter Diagnoses This section includes the primary and secondary diagnoses documented for the Encounter. Date/Time Primary/Secondary Diagnosis Diagnosis Name Provider Source Nov 15, 2024 12:15 PM PRIMARY Essential (primary) hypertension [facility]INIVASAN [facility]UNNER [facility] Plan of Treatment: Future Appointments (+ 6 months) and Future Tests (+/- 45 days) The Plan of Treatment section includes future care activities for the patient from all [place] treatmentfacilities. This section includes future appointments and future orders which are active, pending or scheduled. Future Appointments This section includes appointments that were scheduled to occur 6 months from the date of the Encounter, up to a maximum of 20 appointments. The data comes from all [place] treatment facilities. Appointment Date/Time Appointment Type Appointme nt Facility Name December 03, 2024 01:00 PM AMBULATORY - NONE [place] [facility] December 06, 2024 12:15 PM [facility] December 14, 2024 08:00 AM [facility] NONE [place] [facility] Jan 04, 2025 01:30 PM AMBULATORY - SURGERY [place] [facility] Jan 31, 2025 03:00 PM AMBULATORY - MEDICINE [facility] Feb 05, 2025 01:00 PM AMBULATORY - MEDICINE [facility] Feb 05, 2025 02:00 PM AMBULATORY - MEDICINE [facility] Lab Results: +/- 30 days of the encounter This section includes the Chemistry and Hematology Lab Results on record with [place] for the patient. Radiology Reports and Pathology Reports are provided separately, in subsequent sections. Lab Results This section contains the Chemistry/Hematology Results that were resulted 30 days before or 30 daysafter the date of the Encounter. Date/Time Source Result Type Result - Unit Interpretation Reference Range Specimen Type Comment December 03, 2024 02:03 PM [facility] OWN PROTEIN ELECTROPHORESIS URINE Specimen Type: URINE No comment entered. Ordering Provider: FARHAT BRIGGS Report Released Date/Time: December 03, 2024 01:24 PM Reporting Lab: [address] [address] Performing Lab: [facility] [address] [facility] [address] TOTAL PROTEIN 17.0 mg/dL Not Estab. .ALBUMIN ELEC 29.4 .ALPHA 1 ELEC 5.2 .ALPHA 2 ELEC 21.5 .BETA ELEC 19.7 .GAMMA ELEC 24.2 .M-SPIKE Not Observed Not Observed December 03, 2024 02:03 PM [facility] TOTAL PROTEIN URINE Specimen Type: URINE No comment entered. Ordering Provider: FARHAT BRIGGS Report Released Date/Time: December 03, 2024 01:24 PM Reporting Lab: [address] [address] Performing Lab: [address] [address] TOTAL PROTEIN 16 mg/dL H 0-14 December 03, 2024 02:03 PM [facility] CREATININE URINE Specimen Type: URINE No comment entered. Ordering Provider: FARHAT BRIGGS Report Released Date/Time: December 03, 2024 01:24 PM Reporting Lab: [address] [address] Performing Lab: [address] [address] CREATININE 63.6 mg/dL December 03, 2024 02:03 PM [facility] URINALYSIS URINE Specimen Type: URINE Comment: Microscopic not indicated Ordering Provider: FARHAT BRIGGS Report Released Date/Time: December 03, 2024 01:29 PM Reporting Lab: [address] [address] Performing Lab: [address] [address] URINE COLOR Light Yellow Colorless-Yello w APPEARANCE Clear Clear UROBILINOGEN Normal mg/dL Normal URINE BLOOD Negative Negative URINE BILIRUBIN Negative Negative URINE KETONES Negative mg/dL Negative URINE PROTEIN Negative mg/dL Negative-Tr rachell URINE PH 5.0 4.5-8.0 URINE NITRITE Negative Negative URINE LEUKOCYTE EST Negative Negative SPECIFIC GRAVITY 1.014 1.005-1.030 URINE GLUCOSE >1000 mg/dL H Negative December 03, 2024 01:45 PM [facility] ANTI-NUCLEAR Ab SERUM Specimen Type: SERUM Comment: Atypical speckled resembling DFS (Dense-Fine Speckled. The DFS pattern has a low prevalence in systemic autoimmune rheumatic diseases. The clinical association remains unclear. Due to its close resemblance to other patterns of clinical relevance, (i.e. Homogeneous, speckled, and mixed patterns) follow-up testing may be recommended. ANTI-NUCLEAR Ab reported incorrectly as Atypical Speckled by [[id number]]. Changed to 1:320 Atypical Speckled on December 06, 2024@12:59 by [[id number]]. Ordering Provider: FARHAT BRIGGS Report Released Date/Time: December 03, 2024 01:38 PM Reporting Lab: [address] [address] Performing Lab: [address] [address] ANTI-NUCLEAR Ab 1:320 Atypical Speckled <1:80 December 03, 2024 01:45 PM [facility] ROSALIE (SERUM) SERUM Specimen Type: SERUM Comment: BNP results less than or equal to 100 pg/ml are uniforms sales representative of normal values in patients without CHF. BNP results greater than 100 pg/ml are considered abnormal and suggestive of CHF. Higher BNP concentrations in the first 72 hours after Acute Coronary Syndrome are associated with an increased risk of , myocardial infarction and CHF. Ordering Provider: FARHAT BRIGGS Report Released Date/Time: December 03, 2024 01:24 PM Reporting Lab: [address] [address] Performing Lab: [address] [address] .ALBUMIN ELEC 3.6 g/dL 2.9-4.4 .ALPHA 1 [...] INTERPRETATION Comment December 03, 2024 01:45 PM [facility] JORDAN SCREEN SERUM Specimen Type: SERUM No comment entered. Ordering Provider: FARHAT BRIGGS Report Released Date/Time: December 03, 2024 01:38 PM Reporting Lab: [address] [address] Performing Lab: [address] [address] JORDAN SCREEN Negative Negative December 03, 2024 01:45 PM [facility] BNP ([employer]) PLASMA Specimen Type: PLASMA Comment: BNP results less than or equal to 100 pg/ml are uniforms sales representative of normal values in patients without CHF. BNP results greater than 100 pg/ml are considered abnormal and suggestive of CHF. Higher BNP concentrations in the first 72 hours after Acute Coronary Syndrome are associated with an increased risk of , myocardial infarction and CHF. Ordering Provider: FARHAT BRIGGS Report Released Date/Time: December 03, 2024 01:24 PM Reporting Lab: [address] [address] Performing Lab: [address] [address] BNP ([facility]ALL) 225 pg/mL H 0-100 December 03, 2024 01:45 PM [facility] CK TOTAL PLASMA Specimen Type: PLASM [...] decrease <15 G5 Kidney failure Ordering Provider: FARHAT BRIGGS Report Released Date/Time: December 03, 2024 01:33 PM Reporting Lab: [address] [address] Performing Lab: [address] [address] CK TOTAL 76 U/L 30-200 December 03, 2024 01:45 PM [facility] PANEL 5 PLASMA Specimen Type: PLASM [...] decrease <15 G5 Kidney failure Ordering Provider: FARHAT BRIGGS Report Released Date/Time: December 03, 2024 01:24 PM Reporting Lab: [address] [address] Performing Lab: [address] [address] CREATININE 2.05 mg/dL H 0.72-1.25 UREA NITROGEN [...] (CKD-EPI) 31 December 03, 2024 01:45 PM [facility] CBC/PLT BLOOD Specimen Type: BLOOD No comment entered. Ordering Provider: AFRHAT BRIGGS Report Released Date/Time: December 03, 2024 01:33 PM Reporting Lab: [address] [address] Performing Lab: [place] [phone] WBC 5.6 10*3/uL 5.0-10.0 RBC 4.24 10*6/uL L 4.6-6.2 HGB 12.8 g/dL L 14.0-18.0 HCT 39.4 L 42.0-52.0 MCV 92.9 fL 80.0-94.0 MCH 30.2 pg 27.0-31.0 MCHC 32.5 g/dL 32.0-36.0 PLT 248 10*3/uL 150-450 MPV 10.2 fL 9.0-13.1 RDW 14.2 11.0-16.0 NRBC 0.0 0.0-0.0 December 03, 2024 01:45 PM [facility] AUTOMATED DIFF BLOOD Specimen Type: BLOOD No comment entered. Ordering Provider: FARHAT BRIGGS Report Released Date/Time: December 03, 2024 01:33 PM Reporting Lab: [address] [address] Performing Lab: [address] [address] A-LYMPH % 22.1 L 24.0-44.0 A-MONO % [...] and tobacco- related health factors from the [place] facility where the Encounter took place. Current Smoking Status This section includes the most current smoking, or tobacco-related health factor, from the [place] facility where the Encounter took place. Date/Time Current Smoking Status Comment Kelechi ity May 25, 2023 01:30 PM VA-TOBACCO FORMER USER [facility] Tobacco Use History This section includes a history of the smoking, or tobacco-related health factors, that were collected on or before the date of the Encounter. The data comes from the [place] facility where the Encounter took place. Date/Time Smoking Status/Tobacco Use Comment F acility May 25, 2023 01:30 PM VA-TOBACCO QUIT 15 YRS OR MORE [facility] Jun 18, 2022 01:30 PM VA-TOBACCO FORMER USER [facility] Jun 18, 2022 01:30 PM VA-TOBACCO QUIT 15 YRS OR MORE [facility] Jun 29, 2021 03:00 PM VA-TOBACCO FORMER USER [facility] Jun 29, 2021 03:00 PM VA-TOBACCO QUIT 15 YRS OR MORE [facility] Jul 28, 2020 09:30 AM VA-TOBACCO FORMER USER [facility] Jul 28, 2020 09:30 AM VA-TOBACCO QUIT 15 YRS OR MORE [facility] Jul 09, 2019 03:25 PM VA-TOBACCO NEVER USED [facility] Aug 24, 2018 02:06 PM VA-TOBACCO FORMER USER [facility] Aug 24, 2018 02:06 PM VA-TOBACCO QUIT 15 YRS OR MORE [facility] Sep 22, 2017 07:57 AM V9 LIFETIME NON-USER OF TOBACCO [facility] December 15, 2015 08:07 AM V9 LIFETIME NON-USER OF TOBACCO [facility] Jun 14, 2014 07:48 AM V9 LIFETIME NON-USER OF TOBACCO [facility] Jun 07, 2013 10:08 AM V9 LIFETIME NON-USER OF TOBACCO [facility] May 29, 2012 10:26 AM V9 LIFETIME NON-USER OF TOBACCO [facility] Nov 22, 2011 02:23 PM V9 LIFETIME NON-USER OF TOBACCO [facility] Oct 23, 2010 09:22 AM V9 QUIT TOBACCO >7 YEARS AGO [facility] May 30, 2007 03:08 PM V9 LIFETIME NON-USER OF TOBACCO [facility] Radiology Reports: +/- 30 days of [...] the Encounter. The data comes from all [facility] facilities. Date/Time Radiology Report Provider Source December 14, 2024 07:49 AM CARD. STRESS TEST W/TREADMILL/...: ROBBIE HUANG [id number] [facility]-1940 M Ex Date: DECEMBER 14, 2024@07:49 Req Phys: FARHAT BRIGGS Loc: [facility]-1 (Req'g Loc) Img Loc: NUCLEAR MEDICINE Service: [place] [address] (Case [id number] COMPLETE)CARD. STRESS TEST W/TREADMILL/...(NM Detailed) CPT:61266 Reason for Study: SEE CLINICAL HISTORY Clinical History: Cardiology approval by: [facility] SERVICE CONNECTED? No Active Outpatient Medications (including Supplies): Active Outpatient Medications Status ===== 1) EMPAGLIFLOZIN 10MG TAB TAKE ONE TABLET BY MOUTH EVERY ACTIVE MORNING PROTEINURIA Active Non-VA Medications Status ===== 1) Non-VA AMLODIPINE BESYLATE 10MG TAB 10MG [...] ACTIVE Indication: FOR CHOLESTEROL 6 Total Medications WT: 186 lb [84.37 kg] (12/03/2024 13:07) HT: 66 in [167.6 cm] (05/25/2024 13:57) How do you want to stress the patient? Pharmacological Do you want the patient to take their beta blockers for the exam? No History/Reason for Exam: Sudden LOO and BLE edema past 2+ weeks. Report Status: Verified Date Reported: DECEMBER 14, 2024 Date Verified: DECEMBER 14, 2024 Relocation Coordinator E-Sig: Report: STUDY: GXT with vasodilator REPORT: Patient exercised for 6:00 on the Chano protocol to a sub-maximal HR of 108 (79% predicted) and 7.0 METS. GXT was discontinued prior to completion due to dyspnea. No Sx of CP noted. BP response appropriate with exercise. PVC's noted during exercise with ST-T downsloping anterior/ lateral leads during peak exercise. No arrhythmias observed. GXT transitioned to Regadenoson protocol at 5 min in recovery. Symptoms of dyspnea noted with vasodilator infusion. No CP Sx or significant ST-T changes during infusion or recovery. No complications. Impression: Resting ECG Sinus Rhythm with RBBB , Q's III/ AVF . Exercised via Chano protocol for 6 minutes 0 seconds unable to achieve THR 115 bpm. Test converted to Regadenoson secondary to increasing dyspnea with exercise.Ventricular ectopy noted during exercise and into recovery with ST-T downsloping in anterior/ lateral leads. See Myospect report for conclusive findings. Primary Diagnostic Code: NO ALERT REQUIRED Primary Interpreting Staff: CHAO ORR APRN, Cardiology Verified by commercial accountant for CHAO ORR /CHAO GIRON-D [facility] December 14, 2024 07:49 AM [id number] REGADENOSON 0.1MG X4 (LEXISCAN): ROBBIE HUANG MICA [id number] -1940 M Exm Date: DECEMBER 14, 2024@07:49 Req Phys: FARHAT BRIGGS Loc: [facility] 16-1 (Req'g Loc) Img Loc: NUCLEAR MEDICINE Service: Unknown [place] [id number] (Case [id number] COMPLETE)[id number] REGADENOSON 0.1MG X4 (STEPHON(NM Detailed) CPT:J2785 Reason for Study: SEE CLINICAL HISTORY Clinical History: Cardiology approval by: [facility] SERVICE CONNECTED? No Active Outpatient Medications (including Supplies): Active Outpatient Medications Status ===== 1) EMPAGLIFLOZIN 10MG TAB TAKE ONE TABLET BY MOUTH EVERY ACTIVE MORNING PROTEINURIA Active Non-VA Medications Status ===== 1) Non-VA AMLODIPINE BESYLATE 10MG TAB 10MG [...] ACTIVE Indication: FOR CHOLESTEROL 6 Total Medications WT: 186 lb [84.37 kg] (12/03/2024 13:07) HT: 66 in [167.6 cm] (05/25/2024 13:57) How do you want to stress the patient? Pharmacological Do you want the patient to take their beta blockers for the exam? No History/Reason for Exam: Sudden LOO and BLE edema past 2+ weeks. Report Status: Verified Date Reported: DECEMBER 14, 2024 Date Verified: DECEMBER 14, 2024 Relocation Coordinator E-Sig: Report: STUDY: GXT with vasodilator REPORT: Patient exercised for 6:00 on the Chano protocol to a sub-maximal HR of 108 (79% predicted) and 7.0 METS. GXT was discontinued prior to completion due to dyspnea. No Sx of CP noted. BP response appropriate with exercise. PVC's noted during exercise with ST-T downsloping anterior/ lateral leads during peak exercise. No arrhythmias observed. GXT transitioned to Regadenoson protocol at 5 min in recovery. Symptoms of dyspnea noted with vasodilator infusion. No CP Sx or significant ST-T changes during infusion or recovery. No complications. Impression: Resting ECG Sinus Rhythm with RBBB , Q's III/ AVF . Exercised via Chano protocol for 6 minutes 0 seconds unable to achieve THR 115 bpm. Test converted to Regadenoson secondary to increasing dyspnea with exercise.Ventricular ectopy noted during exercise and into recovery with ST-T downsloping in anterior/ lateral leads. See Myospect report for conclusive findings. Primary Diagnostic Code: NO ALERT REQUIRED Primary Interpreting Staff: CHAO ORR APRN, Cardiology Verified by commercial accountant for CHAO ORR /CHAO GIRONCDD [facility] December 14, 2024 07:49 AM CARD. STRESS TEST W/TREADMILL/...: ROBBIE HUANG [id number] -1940 M Exm Date: DECEMBER 14, 2024@07:49 Req Phys: FARHAT BRIGGS Pat Loc: [facility] 16-1 (Req'g Loc) Img Loc: NUCLEAR MEDICINE Service: [place] [address] (Case [id number] COMPLETE)CARD. STRESS TEST W/TREADMILL/...(NM Detailed) CPT:49956 Proc Modifiers : GXT Reason for Study: SEE CLINICAL HISTORY Clinical History: Cardiology approval by: Petra SOTELO CONNECTED? No Active Outpatient Medications (including Supplies): Active Outpatient Medications Status ===== 1) EMPAGLIFLOZIN 10MG TAB TAKE ONE TABLET BY MOUTH EVERY ACTIVE MORNING PROTEINURIA Active Non-VA Medications Status ===== 1) Non-VA AMLODIPINE BESYLATE 10MG TAB 10MG [...] ACTIVE Indication: FOR CHOLESTEROL 6 Total Medications WT: 186 lb [84.37 kg] (12/03/2024 13:07) HT: 66 in [167.6 cm] (05/25/2024 13:57) How do you want to stress the patient? Pharmacological Do you want the patient to take their beta blockers for the exam? No History/Reason for Exam: Sudden LOO and BLE edema past 2+ weeks. Report Status: Verified Date Reported: DECEMBER 14, 2024 Date Verified: DECEMBER 14, 2024 Relocation Coordinator E-Sig: Report: [place], [place] STUDY: Regadenoson (Lexiscan) SPECT Tc-99m myoview (tetrofosmin) myocardial perfusion imaging with gated SPECT and LVEF. Impression: 1. This is an abnormal nuclear stress test due to dilated ventricle, reduced ejection fraction, infarct/scar. There is no ischemia. 2. There was no clinical, hemodynamic, or electrocardiographic evidence for myocardial ischemia during vasodilator infusion. 3. Perfusion: SPECT images demonstrate abnormal myocardial perfusion (see description below). 4. Function: Gated SPECT images demonstrate abnormal systolic function. LVEF is 29%. Regional wall motion is abnormal with corresponding hypokinetic and akinetic segments in the mid to distal anterior wall and apical segments respectively. 5. There comparison:is previous examination/report available for comparison. There is no significant change from 10/07/2020. 6. CT CHEST: Demonstrates known coronary arterial calcification/stents. Bilateral hilar calcifications. CLINICAL INDICATION: Evaluation of extent and severity of known coronary artery disease CLINICAL HISTORY: 84 year-old male who has known history of coronary artery disease. Cardiac risk factors include: Prior CABG with PCI, heart failure reduced ejection fraction, hypertension, coronary artery disease. TECHNIQUE: Resting Images: A one-day protocol was followed. 5.5 mCi of Tc-99m tetrofosmin were injected intravenously at rest. 45-90 minutes later, SPECT imaging of the heart was performed with tomographic and three-dimensional reconstructions with [employer] NM/CT 640 system. Exercise: Patient exercised for 6 minutes on the Chano protocol to a sub-maximal HR of 108 (79% predicted) and 7 METS. GXT was discontinued prior to completion due to dyspnea/fatigue. No Sx of CP noted. No ST-T changes observed . BP response appropriate with exercise. No arrhythmias observed. Regadenoson (Lexiscan): GXT transitioned to Regadenoson protocol at 6 minutes in recovery. 0.4 mg of regadenoson was infused over 10-12 seconds followed by 16.5 mCi of Tc-99m tetrofosmin injected intravenous immediately thereafter. Symptoms of dyspnea noted with vasodilator infusion. No CP Sx or significant ST-T changes during infusion or recovery. Stress Images: 45-90 minutes later, post-stress SPECT imaging of the heart was performed with tomographic and three-dimensional reconstructions. Gated SPECT data were obtained to calculate left ventricular volumes and ejection fraction post-stress. Computed tomographic scan was acquired using 4-slice CT system after stress imaging, and attenuation-corrected images were generated from both data sets in addition to the conventional [id number] images. Both filtered back projection and iterative reconstructed images were available for review. Motion correction was not applied to the rest and/or post-stress acquisitions. FINDINGS: CLINICAL/HEMODYNAMIC/ECG SUMMARY: 1. The test was terminated due to protocol completion. 2. The heart rate was 85 beats per minute at baseline and increased to a maximal 93 beats per minute after vasodilator infusion. 3. The resting blood pressure was 163/75 mmHg and decreased to 135/65 mmHg after vasodilator infusion. 4. The patient did not develop clinically significant symptoms beyond the usual vasodilator effects. 5. The resting electrocardiogram demonstrated normal sinus rhythm with right bundle branch block and PAC. Subsequent stress ECGs did not show ST changes consistent with myocardial ischemia. 6. There were no significant arrhythmias. 7. There was no transient heart block during vasodilator infusion. SCINTIGRAPHIC FINDINGS: 1. There is no significant patient motion noted on the raw images. Extracardiac findings include intestinal uptake with minimal/no gallbladder signal.. 2. The SPECT images demonstrate a large left ventricular cavity with an estimated left ventricular end-diastolic volume of 194 mL (normal < 149 mL for males, < 102 mL for females). 3. There is no stress-induced transient ischemic dilation (TID) of the left ventricular cavity. 4. SPECT images: Attenuation-corrected and uhp-uveijcjwwiu-kejijrbeq SPECT images were evaluated. SPECT images demonstrate abnormal myocardial perfusion. * There is a large, moderate to severe defect located in the mid to distal anterior, anteroseptal, and septal wall segments with extension into the apex . The defect is fixed and partially normalizes with attenuation-correction. It is associated with overlying regional wall motion hypokinesis/akinesis. 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 * There is a medium size, moderate intensity defect located in the basal to distal inferior wall segments. The defect is fixed and normalizes with attenuation-correction. The perfusion finding is best explained by artifact. 5. The gated SPECT images demonstrate abnormal systolic function. Regional wall motion is abnormal with corresponding hypokinetic and akinetic segments in the mid to distal anterior wall and apical segments respectively. 6. The calculated post-stress LVEF is 29%. Participating Fellow: Juan R Conn M.D. COMMUNICATION: Per this written report. ATTESTATION: I have personally reviewed the electrocardiograms and SPECT images with the participating physicians and agree with the report. Primary Diagnostic Code: SIGNIFICANT ABNORMALITY, ATTN NEEDED Primary Interpreting Staff: JEB SANTOS MD, CARDIOLOGY ATTENDING Verified by commercial accountant for JEB SANTOS MD /JEB MANCILLA-CDD [facility] December 14, 2024 07:49 AM 08213(D) MYOCARDIA L SPECT(MULTIPLE): REINAROBBIE MICA [id number] -1940 M Exm Date: DECEMBER 14, 2024@07:49 Req Phys: FARHAT BRIGGS Pat Loc: [facility] 16-1 (Req'g Loc) Img Loc: NUCLEAR MEDICINE Service: [place] [address] (Case [id number] COMPLETE)[id number](D) MYOCARDIAL SPECT(MULTIPL(NM Detailed) CPT:15880 Proc Modifiers : Lexiscan (Regadenoson) CPT Modifiers : 51 MULTIPLE PROCEDURES Reason for Study: SEE CLINICAL HISTORY Radiopharmaceutical: TC-99M TETROFOSMIN (MYOVIEW)-1, 5.5 mCi Adm'd on DECEMBER 14, 2024@07:45 by YENNY GAMBOA Route [employer] Radi[employer]arm[employer]: TC-99M TETROFOSMIN (MYOVIEW)-2, 16.5 mCi Adm'd on DECEMBER 14, 2024@09:53 by YENNY GAMBOA Route [employer] Pharmaceutical: REGADENOSON 0.4MG/5ML INJ SYRINGE 5ML, 0.4 mg Adm'd on DECEMBER 14, 2024@09:53 by YENNY GAMBOA Clinical History: Cardiology approval by: [facility] SERVICE CONNECTED? No Active Outpatient Medications (including Supplies): Active Outpatient Medications Status ===== 1) EMPAGLIFLOZIN 10MG TAB TAKE ONE TABLET BY MOUTH EVERY ACTIVE MORNING PROTEINURIA Active Non-VA Medications Status ===== 1) Non-VA AMLODIPINE BESYLATE 10MG TAB 10MG [...] ACTIVE Indication: FOR CHOLESTEROL 6 Total Medications WT: 186 lb [84.37 kg] (12/03/2024 13:07) HT: 66 in [167.6 cm] (05/25/2024 13:57) How do you want to stress the patient? Pharmacological Do you want the patient to take their beta blockers for the exam? No History/Reason for Exam: Sudden LOO and BLE edema past 2+ weeks. Report Status: Verified Date Reported: DECEMBER 14, 2024 Date Verified: DECEMBER 14, 2024 Relocation Coordinator E-Sig: Report: [facility], [place], [place] STUDY: Regadenoson (Lexiscan) SPECT Tc-99m myoview (tetrofosmin) myocardial perfusion imaging with gated SPECT and LVEF. Impression: 1. This is an abnormal nuclear stress test due to dilated ventricle, reduced ejection fraction, infarct/scar. There is no ischemia. 2. There was no clinical, hemodynamic, or electrocardiographic evidence for myocardial ischemia during vasodilator infusion. 3. Perfusion: SPECT images demonstrate abnormal myocardial perfusion (see description below). 4. Function: Gated SPECT images demonstrate abnormal systolic function. LVEF is 29%. Regional wall motion is abnormal with corresponding hypokinetic and akinetic segments in the mid to distal anterior wall and apical segments respectively. 5. There comparison:is previous examination/report available for comparison. There is no significant change from 10/07/2020. 6. CT CHEST: Demonstrates known coronary arterial calcification/stents. Bilateral hilar calcifications. CLINICAL INDICATION: Evaluation of extent and severity of known coronary artery disease CLINICAL HISTORY: 84 year-old male who has known history of coronary artery disease. Cardiac risk factors include: Prior CABG with PCI, heart failure reduced ejection fraction, hypertension, coronary artery disease. TECHNIQUE: Resting Images: A one-day protocol was followed. 5.5 mCi of Tc-99m tetrofosmin were injected intravenously at rest. 45-90 minutes later, SPECT imaging of the heart was performed with tomographic and three-dimensional reconstructions with PluggedIn NM/CT 640 system. Exercise: Patient exercised for 6 minutes on the Chano protocol to a sub-maximal HR of 108 (79% predicted) and 7 METS. GXT was discontinued prior to completion due to dyspnea/fatigue. No Sx of CP noted. No ST-T changes observed . BP response appropriate with exercise. No arrhythmias observed. Regadenoson (Lexiscan): GXT transitioned to Regadenoson protocol at 6 minutes in recovery. 0.4 mg of regadenoson was infused over 10-12 seconds followed by 16.5 mCi of Tc-99m tetrofosmin injected intravenous immediately thereafter. Symptoms of dyspnea noted with vasodilator infusion. No CP Sx or significant ST-T changes during infusion or recovery. Stress Images: 45-90 minutes later, post-stress SPECT imaging of the heart was performed with tomographic and three-dimensional reconstructions. Gated SPECT data were obtained to calculate left ventricular volumes and ejection fraction post-stress. Computed tomographic scan was acquired using 4-slice CT system after stress imaging, and attenuation-corrected images were generated from both data sets in addition to the conventional urz-bqgmbduryko-abrdtvsvf images. Both filtered back projection and iterative reconstructed images were available for review. Motion correction was not applied to the rest and/or post-stress acquisitions. FINDINGS: CLINICAL/HEMODYNAMIC/ECG SUMMARY: 1. The test was terminated due to protocol completion. 2. The heart rate was 85 beats per minute at baseline and increased to a maximal 93 beats per minute after vasodilator infusion. 3. The resting blood pressure was 163/75 mmHg and decreased to 135/65 mmHg after vasodilator infusion. 4. The patient did not develop clinically significant symptoms beyond the usual vasodilator effects. 5. The resting electrocardiogram demonstrated normal sinus rhythm with right bundle branch block and PAC. Subsequent stress ECGs did not show ST changes consistent with myocardial ischemia. 6. There were no significant arrhythmias. 7. There was no transient heart block during vasodilator infusion. SCINTIGRAPHIC FINDINGS: 1. There is no significant patient motion noted on the raw images. Extracardiac findings include intestinal uptake with minimal/no gallbladder signal.. 2. The SPECT images demonstrate a large left ventricular cavity with an estimated left ventricular end-diastolic volume of 194 mL (normal < 149 mL for males, < 102 mL for females). 3. There is no stress-induced transient ischemic dilation (TID) of the left ventricular cavity. 4. SPECT images: Attenuation-corrected and avl-nnzcbdeyrxk-ojoqiiltc SPECT images were evaluated. SPECT images demonstrate abnormal myocardial perfusion. * There is a large, moderate to severe defect located in the mid to distal anterior, anteroseptal, and septal wall segments with extension into the apex . The defect is fixed and partially normalizes with attenuation-correction. It is associated with overlying regional wall motion hypokinesis/akinesis. 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 * There is a medium size, moderate intensity defect located in the basal to distal inferior wall segments. The defect is fixed and normalizes with attenuation-correction. The perfusion finding is best explained by artifact. 5. The gated SPECT images demonstrate abnormal systolic function. Regional wall motion is abnormal with corresponding hypokinetic and akinetic segments in the mid to distal anterior wall and apical segments respectively. 6. The calculated post-stress LVEF is 29%. Participating Fellow: Juan R Conn M.D. COMMUNICATION: Per this written report. ATTESTATION: I have personally reviewed the electrocardiograms and SPECT images with the participating physicians and agree with the report. Primary Diagnostic Code: SIGNIFICANT ABNORMALITY, ATTN NEEDED Primary Interpreting Staff: JEB SANTOS MD, CARDIOLOGY ATTENDING Verified by commercial accountant for JEB SANTOS MD /JEB MANCILLA-CDD [facility] December 14, 2024 07:49 AM MYOVIEW(1): ROBBIE HUANG [id number] -1940 M Exm Date: DECEMBER 14, 2024@07:49 Req Phys: FARHAT BRIGGS Pat Loc: [facility] 16-1 (Req'g Loc) Img Loc: NUCLEAR MEDICINE Service: Unknown [place] [id number] (Case [id number] COMPLETE)MYOVIEW(1) (NM Detailed) CPT:A9502 Reason for Study: SEE CLINICAL HISTORY Clinical History: Cardiology approval by: Petra SERVICE CONNECTED? No Active Outpatient Medications (including Supplies): Active Outpatient Medications Status ===== 1) EMPAGLIFLOZIN 10MG TAB TAKE ONE TABLET BY MOUTH EVERY ACTIVE MORNING PROTEINURIA Active Non-VA Medications Status ===== 1) Non-VA AMLODIPINE BESYLATE 10MG TAB 10MG [...] ACTIVE Indication: FOR CHOLESTEROL 6 Total Medications WT: 186 lb [84.37 kg] (12/03/2024 13:07) HT: 66 in [167.6 cm] (05/25/2024 13:57) How do you want to stress the patient? Pharmacological Do you want the patient to take their beta blockers for the exam? No History/Reason for Exam: Sudden LOO and BLE edema past 2+ weeks. Report Status: Verified Date Reported: DECEMBER 14, 2024 Date Verified: DECEMBER 14, 2024 Relocation Coordinator E-Sig: Report: [place], [place] STUDY: Regadenoson (Lexiscan) SPECT Tc-99m myoview (tetrofosmin) myocardial perfusion imaging with gated SPECT and LVEF. Impression: 1. This is an abnormal nuclear stress test due to dilated ventricle, reduced ejection fraction, infarct/scar. There is no ischemia. 2. There was no clinical, hemodynamic, or electrocardiographic evidence for myocardial ischemia during vasodilator infusion. 3. Perfusion: SPECT images demonstrate abnormal myocardial perfusion (see description below). 4. Function: Gated SPECT images demonstrate abnormal systolic function. LVEF is 29%. Regional wall motion is abnormal with corresponding hypokinetic and akinetic segments in the mid to distal anterior wall and apical segments respectively. 5. There comparison:is previous examination/report available for comparison. There is no significant change from 10/07/2020. 6. CT CHEST: Demonstrates known coronary arterial calcification/stents. Bilateral hilar calcifications. CLINICAL INDICATION: Evaluation of extent and severity of known coronary artery disease CLINICAL HISTORY: 84 year-old male who has known history of coronary artery disease. Cardiac risk factors include: Prior CABG with PCI, heart failure reduced ejection fraction, hypertension, coronary artery disease. TECHNIQUE: Resting Images: A one-day protocol was followed. 5.5 mCi of Tc-99m tetrofosmin were injected intravenously at rest. 45-90 minutes later, SPECT imaging of the heart was performed with tomographic and three-dimensional reconstructions with PluggedIn NM/CT 640 system. Exercise: Patient exercised for 6 minutes on the Chano protocol to a sub-maximal HR of 108 (79% predicted) and 7 METS. GXT was discontinued prior to completion due to dyspnea/fatigue. No Sx of CP noted. No ST-T changes observed . BP response appropriate with exercise. No arrhythmias observed. Regadenoson (Lexiscan): GXT transitioned to Regadenoson protocol at 6 minutes in recovery. 0.4 mg of regadenoson was infused over 10-12 seconds followed by 16.5 mCi of Tc-99m tetrofosmin injected intravenous immediately thereafter. Symptoms of dyspnea noted with vasodilator infusion. No CP Sx or significant ST-T changes during infusion or recovery. Stress Images: 45-90 minutes later, post-stress SPECT imaging of the heart was performed with tomographic and three-dimensional reconstructions. Gated SPECT data were obtained to calculate left ventricular volumes and ejection fraction post-stress. Computed tomographic scan was acquired using 4-slice CT system after stress imaging, and attenuation-corrected images were generated from both data sets in addition to the conventional cfe-uksusvaqfoe-fvwfdrmxr images. Both filtered back projection and iterative reconstructed images were available for review. Motion correction was not applied to the rest and/or post-stress acquisitions. FINDINGS: CLINICAL/HEMODYNAMIC/ECG SUMMARY: 1. The test was terminated due to protocol completion. 2. The heart rate was 85 beats per minute at baseline and increased to a maximal 93 beats per minute after vasodilator infusion. 3. The resting blood pressure was 163/75 mmHg and decreased to 135/65 mmHg after vasodilator infusion. 4. The patient did not develop clinically significant symptoms beyond the usual vasodilator effects. 5. The resting electrocardiogram demonstrated normal sinus rhythm with right bundle branch block and PAC. Subsequent stress ECGs did not show ST changes consistent with myocardial ischemia. 6. There were no significant arrhythmias. 7. There was no transient heart block during vasodilator infusion. SCINTIGRAPHIC FINDINGS: 1. There is no significant patient motion noted on the raw images. Extracardiac findings include intestinal uptake with minimal/no gallbladder signal.. 2. The SPECT images demonstrate a large left ventricular cavity with an estimated left ventricular end-diastolic volume of 194 mL (normal < 149 mL for males, < 102 mL for females). 3. There is no stress-induced transient ischemic dilation (TID) of the left ventricular cavity. 4. SPECT images: Attenuation-corrected and pcp-gfhmvquyfiw-idjamcflm SPECT images were evaluated. SPECT images demonstrate abnormal myocardial perfusion. * There is a large, moderate to severe defect located in the mid to distal anterior, anteroseptal, and septal wall segments with extension into the apex . The defect is fixed and partially normalizes with attenuation-correction. It is associated with overlying regional wall motion hypokinesis/akinesis. 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 * There is a medium size, moderate intensity defect located in the basal to distal inferior wall segments. The defect is fixed and normalizes with attenuation-correction. The perfusion finding is best explained by artifact. 5. The gated SPECT images demonstrate abnormal systolic function. Regional wall motion is abnormal with corresponding hypokinetic and akinetic segments in the mid to distal anterior wall and apical segments respectively. 6. The calculated post-stress LVEF is 29%. Participating Fellow: Juan R Conn M.D. COMMUNICATION: Per this written report. ATTESTATION: I have personally reviewed the electrocardiograms and SPECT images with the participating physicians and agree with the report. Primary Diagnostic Code: SIGNIFICANT ABNORMALITY, ATTN NEEDED Primary Interpreting Staff: JEB SANTOS MD, CARDIOLOGY ATTENDING Verified by commercial accountant for JEB SANTOS MD /JEB MANCILLA-CDD [facility] December 14, 2024 07:49 AM [id number] REGADENOSON 0.1MG X1 (LEXISCAN): REINAROBBIE MICA [id number] -1940 M Ex Date: DECEMBER 14, 2024@07:49 Req Phys: FARHAT BRIGGS Loc: [facility] 16-1 (Req'g Loc) Img Loc: NUCLEAR MEDICINE Service: [place] [address] (Case [id number] COMPLETE)[id number] REGADENOSON 0.1MG X1 (STEPHON(NM Detailed) CPT:J2785 Reason for Study: SEE CLINICAL HISTORY Clinical History: Cardiology approval by: Petra SERVICE CONNECTED? No Active Outpatient Medications (including Supplies): Active Outpatient Medications Status ===== 1) EMPAGLIFLOZIN 10MG TAB TAKE ONE TABLET BY MOUTH EVERY ACTIVE MORNING PROTEINURIA Active Non-VA Medications Status ===== 1) Non-VA AMLODIPINE BESYLATE 10MG TAB 10MG [...] ACTIVE Indication: FOR CHOLESTEROL 6 Total Medications WT: 186 lb [84.37 kg] (12/03/2024 13:07) HT: 66 in [167.6 cm] (05/25/2024 13:57) How do you want to stress the patient? Pharmacological Do you want the patient to take their beta blockers for the exam? No History/Reason for Exam: Sudden LOO and BLE edema past 2+ weeks. Report Status: Verified Date Reported: DECEMBER 14, 2024 Date Verified: DECEMBER 14, 2024 Relocation Coordinator E-Sig: Report: [facility], [place], [place] STUDY: Regadenoson (Lexiscan) SPECT Tc-99m myoview (tetrofosmin) myocardial perfusion imaging with gated SPECT and LVEF. Impression: 1. This is an abnormal nuclear stress test due to dilated ventricle, reduced ejection fraction, infarct/scar. There is no ischemia. 2. There was no clinical, hemodynamic, or electrocardiographic evidence for myocardial ischemia during vasodilator infusion. 3. Perfusion: SPECT images demonstrate abnormal myocardial perfusion (see description below). 4. Function: Gated SPECT images demonstrate abnormal systolic function. LVEF is 29%. Regional wall motion is abnormal with corresponding hypokinetic and akinetic segments in the mid to distal anterior wall and apical segments respectively. 5. There comparison:is previous examination/report available for comparison. There is no significant change from 10/07/2020. 6. CT CHEST: Demonstrates known coronary arterial calcification/stents. Bilateral hilar calcifications. CLINICAL INDICATION: Evaluation of extent and severity of known coronary artery disease CLINICAL HISTORY: 84 year-old male who has known history of coronary artery disease. Cardiac risk factors include: Prior CABG with PCI, heart failure reduced ejection fraction, hypertension, coronary artery disease. TECHNIQUE: Resting Images: A one-day protocol was followed. 5.5 mCi of Tc-99m tetrofosmin were injected intravenously at rest. 45-90 minutes later, SPECT imaging of the heart was performed with tomographic and three-dimensional reconstructions with PluggedIn NM/CT 640 system. Exercise: Patient exercised for 6 minutes on the Chano protocol to a sub-maximal HR of 108 (79% predicted) and 7 METS. GXT was discontinued prior to completion due to dyspnea/fatigue. No Sx of CP noted. No ST-T changes observed . BP response appropriate with exercise. No arrhythmias observed. Regadenoson (Lexiscan): GXT transitioned to Regadenoson protocol at 6 minutes in recovery. 0.4 mg of regadenoson was infused over 10-12 seconds followed by 16.5 mCi of Tc-99m tetrofosmin injected intravenous immediately thereafter. Symptoms of dyspnea noted with vasodilator infusion. No CP Sx or significant ST-T changes during infusion or recovery. Stress Images: 45-90 minutes later, post-stress SPECT imaging of the heart was performed with tomographic and three-dimensional reconstructions. Gated SPECT data were obtained to calculate left ventricular volumes and ejection fraction post-stress. Computed tomographic scan was acquired using 4-slice CT system after stress imaging, and attenuation-corrected images were generated from both data sets in addition to the conventional euw-xrjiuzulgnj-kwutqsxxd images. Both filtered back projection and iterative reconstructed images were available for review. Motion correction was not applied to the rest and/or post-stress acquisitions. FINDINGS: CLINICAL/HEMODYNAMIC/ECG SUMMARY: 1. The test was terminated due to protocol completion. 2. The heart rate was 85 beats per minute at baseline and increased to a maximal 93 beats per minute after vasodilator infusion. 3. The resting blood pressure was 163/75 mmHg and decreased to 135/65 mmHg after vasodilator infusion. 4. The patient did not develop clinically significant symptoms beyond the usual vasodilator effects. 5. The resting electrocardiogram demonstrated normal sinus rhythm with right bundle branch block and PAC. Subsequent stress ECGs did not show ST changes consistent with myocardial ischemia. 6. There were no significant arrhythmias. 7. There was no transient heart block during vasodilator infusion. SCINTIGRAPHIC FINDINGS: 1. There is no significant patient motion noted on the raw images. Extracardiac findings include intestinal uptake with minimal/no gallbladder signal.. 2. The SPECT images demonstrate a large left ventricular cavity with an estimated left ventricular end-diastolic volume of 194 mL (normal < 149 mL for males, < 102 mL for females). 3. There is no stress-induced transient ischemic dilation (TID) of the left ventricular cavity. 4. SPECT images: Attenuation-corrected and wjj-uxybopiotbz-vciulffhl SPECT images were evaluated. SPECT images demonstrate abnormal myocardial perfusion. * There is a large, moderate to severe defect located in the mid to distal anterior, anteroseptal, and septal wall segments with extension into the apex . The defect is fixed and partially normalizes with attenuation-correction. It is associated with overlying regional wall motion hypokinesis/akinesis. 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 * There is a medium size, moderate intensity defect located in the basal to distal inferior wall segments. The defect is fixed and normalizes with attenuation-correction. The perfusion finding is best explained by artifact. 5. The gated SPECT images demonstrate abnormal systolic function. Regional wall motion is abnormal with corresponding hypokinetic and akinetic segments in the mid to distal anterior wall and apical segments respectively. 6. The calculated post-stress LVEF is 29%. Participating Fellow: Juan R Conn M.D. COMMUNICATION: Per this written report. ATTESTATION: I have personally reviewed the electrocardiograms and SPECT images with the participating physicians and agree with the report. Primary Diagnostic Code: SIGNIFICANT ABNORMALITY, ATTN NEEDED Primary Interpreting Staff: JEB SANTOS MD, CARDIOLOGY ATTENDING Verified by commercial accountant for JEB SANTOS MD /JEB MANCILLA-CDD [facility] December 14, 2024 07:49 AM MYOVIEW(2): ROBBIE HUANG MICA [id number] -1940 M Ex Date: DECEMBER 14, 2024@07:49 Req Phys: FARHAT BRIGGS Loc: [facility] 16-1 (Req'g Loc) Img Loc: NUCLEAR MEDICINE Service: [place] [address] (Case [id number] COMPLETE)MYOVIEW(2) (NM Detailed) CPT:A9502 Reason for Study: SEE CLINICAL HISTORY Clinical History: Cardiology approval by: [facility] SERVICE CONNECTED? No Active Outpatient Medications (including Supplies): Active Outpatient Medications Status ===== 1) EMPAGLIFLOZIN 10MG TAB TAKE ONE TABLET BY MOUTH EVERY ACTIVE MORNING PROTEINURIA Active Non-VA Medications Status ===== 1) Non-VA AMLODIPINE BESYLATE 10MG TAB 10MG [...] ACTIVE Indication: FOR CHOLESTEROL 6 Total Medications WT: 186 lb [84.37 kg] (12/03/2024 13:07) HT: 66 in [167.6 cm] (05/25/2024 13:57) How do you want to stress the patient? Pharmacological Do you want the patient to take their beta blockers for the exam? No History/Reason for Exam: Sudden LOO and BLE edema past 2+ weeks. Report Status: Verified Date Reported: DECEMBER 14, 2024 Date Verified: DECEMBER 14, 2024 Relocation Coordinator E-Sig: Report: [facility], [place], [place] STUDY: Regadenoson (Lexiscan) SPECT Tc-99m myoview (tetrofosmin) myocardial perfusion imaging with gated SPECT and LVEF. Impression: 1. This is an abnormal nuclear stress test due to dilated ventricle, reduced ejection fraction, infarct/scar. There is no ischemia. 2. There was no clinical, hemodynamic, or electrocardiographic evidence for myocardial ischemia during vasodilator infusion. 3. Perfusion: SPECT images demonstrate abnormal myocardial perfusion (see description below). 4. Function: Gated SPECT images demonstrate abnormal systolic function. LVEF is 29%. Regional wall motion is abnormal with corresponding hypokinetic and akinetic segments in the mid to distal anterior wall and apical segments respectively. 5. There comparison:is previous examination/report available for comparison. There is no significant change from 10/07/2020. 6. CT CHEST: Demonstrates known coronary arterial calcification/stents. Bilateral hilar calcifications. CLINICAL INDICATION: Evaluation of extent and severity of known coronary artery disease CLINICAL HISTORY: 84 year-old male who has known history of coronary artery disease. Cardiac risk factors include: Prior CABG with PCI, heart failure reduced ejection fraction, hypertension, coronary artery disease. TECHNIQUE: Resting Images: A one-day protocol was followed. 5.5 mCi of Tc-99m tetrofosmin were injected intravenously at rest. 45-90 minutes later, SPECT imaging of the heart was performed with tomographic and three-dimensional reconstructions with PluggedIn NM/CT 640 system. Exercise: Patient exercised for 6 minutes on the Chano protocol to a sub-maximal HR of 108 (79% predicted) and 7 METS. GXT was discontinued prior to completion due to dyspnea/fatigue. No Sx of CP noted. No ST-T changes observed . BP response appropriate with exercise. No arrhythmias observed. Regadenoson (Lexiscan): GXT transitioned to Regadenoson protocol at 6 minutes in recovery. 0.4 mg of regadenoson was infused over 10-12 seconds followed by 16.5 mCi of Tc-99m tetrofosmin injected intravenous immediately thereafter. Symptoms of dyspnea noted with vasodilator infusion. No CP Sx or significant ST-T changes during infusion or recovery. Stress Images: 45-90 minutes later, post-stress SPECT imaging of the heart was performed with tomographic and three-dimensional reconstructions. Gated SPECT data were obtained to calculate left ventricular volumes and ejection fraction post-stress. Computed tomographic scan was acquired using 4-slice CT system after stress imaging, and attenuation-corrected images were generated from both data sets in addition to the conventional dfa-kksjovhlqcv-suypxgeyl images. Both filtered back projection and iterative reconstructed images were available for review. Motion correction was not applied to the rest and/or post-stress acquisitions. FINDINGS: CLINICAL/HEMODYNAMIC/ECG SUMMARY: 1. The test was terminated due to protocol completion. 2. The heart rate was 85 beats per minute at baseline and increased to a maximal 93 beats per minute after vasodilator infusion. 3. The resting blood pressure was 163/75 mmHg and decreased to 135/65 mmHg after vasodilator infusion. 4. The patient did not develop clinically significant symptoms beyond the usual vasodilator effects. 5. The resting electrocardiogram demonstrated normal sinus rhythm with right bundle branch block and PAC. Subsequent stress ECGs did not show ST changes consistent with myocardial ischemia. 6. There were no significant arrhythmias. 7. There was no transient heart block during vasodilator infusion. SCINTIGRAPHIC FINDINGS: 1. There is no significant patient motion noted on the raw images. Extracardiac findings include intestinal uptake with minimal/no gallbladder signal.. 2. The SPECT images demonstrate a large left ventricular cavity with an estimated left ventricular end-diastolic volume of 194 mL (normal < 149 mL for males, < 102 mL for females). 3. There is no stress-induced transient ischemic dilation (TID) of the left ventricular cavity. 4. SPECT images: Attenuation-corrected and duj-hynwgsklihc-mjzbwpglt SPECT images were evaluated. SPECT images demonstrate abnormal myocardial perfusion. * There is a large, moderate to severe defect located in the mid to distal anterior, anteroseptal, and septal wall segments with extension into the apex . The defect is fixed and partially normalizes with attenuation-correction. It is associated with overlying regional wall motion hypokinesis/akinesis. 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 * There is a medium size, moderate intensity defect located in the basal to distal inferior wall segments. The defect is fixed and normalizes with attenuation-correction. The perfusion finding is best explained by artifact. 5. The gated SPECT images demonstrate abnormal systolic function. Regional wall motion is abnormal with corresponding hypokinetic and akinetic segments in the mid to distal anterior wall and apical segments respectively. 6. The calculated post-stress LVEF is 29%. Participating Fellow: Juan R Conn M.D. COMMUNICATION: Per this written report. ATTESTATION: I have personally reviewed the electrocardiograms and SPECT images with the participating physicians and agree with the report. Primary Diagnostic Code: SIGNIFICANT ABNORMALITY, ATTN NEEDED Primary Interpreting Staff: JEB SANTOS MD, CARDIOLOGY ATTENDING Verified by commercial accountant for JEB SANTOS MD /JEB MANCILLA-CDD [facility] December 14, 2024 07:49 AM TC-99M X1 FROM NON -HEU SOURCE: ROBBIE HUANG [id number] -1940 M Exm Date: DECEMBER 14, 2024@07:49 Req Phys: JORDYNFARHAT Raul Pat Loc: [facility] 16-1 (Req'g Loc) Img Loc: NUCLEAR MEDICINE Service: Unknown [place] [id number] (Case [id number] COMPLETE)TC-99M X1 FROM NON-HEU SOURCE (NM Detailed) CPT:Q9969 Reason for Study: SEE CLINICAL HISTORY Clinical History: Cardiology approval by: Petra SERVICE CONNECTED? No Active Outpatient Medications (including Supplies): Active Outpatient Medications Status ===== 1) EMPAGLIFLOZIN 10MG TAB TAKE ONE TABLET BY MOUTH EVERY ACTIVE MORNING PROTEINURIA Active Non-VA Medications Status ===== 1) Non-VA AMLODIPINE BESYLATE 10MG TAB 10MG [...] ACTIVE Indication: FOR CHOLESTEROL 6 Total Medications WT: 186 lb [84.37 kg] (12/03/2024 13:07) HT: 66 in [167.6 cm] (05/25/2024 13:57) How do you want to stress the patient? Pharmacological Do you want the patient to take their beta blockers for the exam? No History/Reason for Exam: Sudden LOO and BLE edema past 2+ weeks. Report Status: Verified Date Reported: DECEMBER 14, 2024 Date Verified: DECEMBER 14, 2024 Relocation Coordinator E-Sig: Report: [place], [place] STUDY: Regadenoson (Lexiscan) SPECT Tc-99m myoview (tetrofosmin) myocardial perfusion imaging with gated SPECT and LVEF. Impression: 1. This is an abnormal nuclear stress test due to dilated ventricle, reduced ejection fraction, infarct/scar. There is no ischemia. 2. There was no clinical, hemodynamic, or electrocardiographic evidence for myocardial ischemia during vasodilator infusion. 3. Perfusion: SPECT images demonstrate abnormal myocardial perfusion (see description below). 4. Function: Gated SPECT images demonstrate abnormal systolic function. LVEF is 29%. Regional wall motion is abnormal with corresponding hypokinetic and akinetic segments in the mid to distal anterior wall and apical segments respectively. 5. There comparison:is previous examination/report available for comparison. There is no significant change from 10/07/2020. 6. CT CHEST: Demonstrates known coronary arterial calcification/stents. Bilateral hilar calcifications. CLINICAL INDICATION: Evaluation of extent and severity of known coronary artery disease CLINICAL HISTORY: 84 year-old male who has known history of coronary artery disease. Cardiac risk factors include: Prior CABG with PCI, heart failure reduced ejection fraction, hypertension, coronary artery disease. TECHNIQUE: Resting Images: A one-day protocol was followed. 5.5 mCi of Tc-99m tetrofosmin were injected intravenously at rest. 45-90 minutes later, SPECT imaging of the heart was performed with tomographic and three-dimensional reconstructions with Recoup/CT 640 system. Exercise: Patient exercised for 6 minutes on the Chano protocol to a sub-maximal HR of 108 (79% predicted) and 7 METS. GXT was discontinued prior to completion due to dyspnea/fatigue. No Sx of CP noted. No ST-T changes observed . BP response appropriate with exercise. No arrhythmias observed. Regadenoson (Lexiscan): GXT transitioned to Regadenoson protocol at 6 minutes in recovery. 0.4 mg of regadenoson was infused over 10-12 seconds followed by 16.5 mCi of Tc-99m tetrofosmin injected intravenous immediately thereafter. Symptoms of dyspnea noted with vasodilator infusion. No CP Sx or significant ST-T changes during infusion or recovery. Stress Images: 45-90 minutes later, post-stress SPECT imaging of the heart was performed with tomographic and three-dimensional reconstructions. Gated SPECT data were obtained to calculate left ventricular volumes and ejection fraction post-stress. Computed tomographic scan was acquired using 4-slice CT system after stress imaging, and attenuation-corrected images were generated from both data sets in addition to the conventional obk-drkmqjymznf-nkflynewp images. Both filtered back projection and iterative reconstructed images were available for review. Motion correction was not applied to the rest and/or post-stress acquisitions. FINDINGS: CLINICAL/HEMODYNAMIC/ECG SUMMARY: 1. The test was terminated due to protocol completion. 2. The heart rate was 85 beats per minute at baseline and increased to a maximal 93 beats per minute after vasodilator infusion. 3. The resting blood pressure was 163/75 mmHg and decreased to 135/65 mmHg after vasodilator infusion. 4. The patient did not develop clinically significant symptoms beyond the usual vasodilator effects. 5. The resting electrocardiogram demonstrated normal sinus rhythm with right bundle branch block and PAC. Subsequent stress ECGs did not show ST changes consistent with myocardial ischemia. 6. There were no significant arrhythmias. 7. There was no transient heart block during vasodilator infusion. SCINTIGRAPHIC FINDINGS: 1. There is no significant patient motion noted on the raw images. Extracardiac findings include intestinal uptake with minimal/no gallbladder signal.. 2. The SPECT images demonstrate a large left ventricular cavity with an estimated left ventricular end-diastolic volume of 194 mL (normal < 149 mL for males, < 102 mL for females). 3. There is no stress-induced transient ischemic dilation (TID) of the left ventricular cavity. 4. SPECT images: Attenuation-corrected and jon-kxzpcyakowg-cejhgxvql SPECT images were evaluated. SPECT images demonstrate abnormal myocardial perfusion. * There is a large, moderate to severe defect located in the mid to distal anterior, anteroseptal, and septal wall segments with extension into the apex . The defect is fixed and partially normalizes with attenuation-correction. It is associated with overlying regional wall motion hypokinesis/akinesis. 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 * There is a medium size, moderate intensity defect located in the basal to distal inferior wall segments. The defect is fixed and normalizes with attenuation-correction. The perfusion finding is best explained by artifact. 5. The gated SPECT images demonstrate abnormal systolic function. Regional wall motion is abnormal with corresponding hypokinetic and akinetic segments in the mid to distal anterior wall and apical segments respectively. 6. The calculated post-stress LVEF is 29%. Participating Fellow: Juan R Conn M.D. COMMUNICATION: Per this written report. ATTESTATION: I have personally reviewed the electrocardiograms and SPECT images with the participating physicians and agree with the report. Primary Diagnostic Code: SIGNIFICANT ABNORMALITY, ATTN NEEDED Primary Interpreting Staff: JEB SANTOS MD, CARDIOLOGY ATTENDING Verified by commercial accountant for JEB SANTOS MD /JEB MANCILLA-D [facility] December 14, 2024 07:49 AM [id number] REGADENOSON 0.1MG X2 (LEXISCAN): ROBBIE HUANG [id number] -1940 M Ex Date: DECEMBER 14, 2024@07:49 Req Phys: FARHAT BRIGGS Loc: [facility] 16-1 (Req'g Loc) Img Loc: NUCLEAR MEDICINE Service: [place] [address] (Case [id number] COMPLETE)[id number] REGADENOSON 0.1MG X2 (STEPHON(NM Detailed) CPT:J2785 Reason for Study: SEE CLINICAL HISTORY Clinical History: Cardiology approval by: Petra SERVICE CONNECTED? No Active Outpatient Medications (including Supplies): Active Outpatient Medications Status ===== 1) EMPAGLIFLOZIN 10MG TAB TAKE ONE TABLET BY MOUTH EVERY ACTIVE MORNING PROTEINURIA Active Non-VA Medications Status ===== 1) Non-VA AMLODIPINE BESYLATE 10MG TAB 10MG [...] ACTIVE Indication: FOR CHOLESTEROL 6 Total Medications WT: 186 lb [84.37 kg] (12/03/2024 13:07) HT: 66 in [167.6 cm] (05/25/2024 13:57) How do you want to stress the patient? Pharmacological Do you want the patient to take their beta blockers for the exam? No History/Reason for Exam: Sudden LOO and BLE edema past 2+ weeks. Report Status: Verified Date Reported: DECEMBER 14, 2024 Date Verified: DECEMBER 14, 2024 Relocation Coordinator E-Sig: Report: [facility], [place], [place] STUDY: Regadenoson (Lexiscan) SPECT Tc-99m myoview (tetrofosmin) myocardial perfusion imaging with gated SPECT and LVEF. Impression: 1. This is an abnormal nuclear stress test due to dilated ventricle, reduced ejection fraction, infarct/scar. There is no ischemia. 2. There was no clinical, hemodynamic, or electrocardiographic evidence for myocardial ischemia during vasodilator infusion. 3. Perfusion: SPECT images demonstrate abnormal myocardial perfusion (see description below). 4. Function: Gated SPECT images demonstrate abnormal systolic function. LVEF is 29%. Regional wall motion is abnormal with corresponding hypokinetic and akinetic segments in the mid to distal anterior wall and apical segments respectively. 5. There comparison:is previous examination/report available for comparison. There is no significant change from 10/07/2020. 6. CT CHEST: Demonstrates known coronary arterial calcification/stents. Bilateral hilar calcifications. CLINICAL INDICATION: Evaluation of extent and severity of known coronary artery disease CLINICAL HISTORY: 84 year-old male who has known history of coronary artery disease. Cardiac risk factors include: Prior CABG with PCI, heart failure reduced ejection fraction, hypertension, coronary artery disease. TECHNIQUE: Resting Images: A one-day protocol was followed. 5.5 mCi of Tc-99m tetrofosmin were injected intravenously at rest. 45-90 minutes later, SPECT imaging of the heart was performed with tomographic and three-dimensional reconstructions with PluggedIn NM/CT 640 system. Exercise: Patient exercised for 6 minutes on the Chano protocol to a sub-maximal HR of 108 (79% predicted) and 7 METS. GXT was discontinued prior to completion due to dyspnea/fatigue. No Sx of CP noted. No ST-T changes observed . BP response appropriate with exercise. No arrhythmias observed. Regadenoson (Lexiscan): GXT transitioned to Regadenoson protocol at 6 minutes in recovery. 0.4 mg of regadenoson was infused over 10-12 seconds followed by 16.5 mCi of Tc-99m tetrofosmin injected intravenous immediately thereafter. Symptoms of dyspnea noted with vasodilator infusion. No CP Sx or significant ST-T changes during infusion or recovery. Stress Images: 45-90 minutes later, post-stress SPECT imaging of the heart was performed with tomographic and three-dimensional reconstructions. Gated SPECT data were obtained to calculate left ventricular volumes and ejection fraction post-stress. Computed tomographic scan was acquired using 4-slice CT system after stress imaging, and attenuation-corrected images were generated from both data sets in addition to the conventional kwr-jkhryyhupaw-itqwgcfhh images. Both filtered back projection and iterative reconstructed images were available for review. Motion correction was not applied to the rest and/or post-stress acquisitions. FINDINGS: CLINICAL/HEMODYNAMIC/ECG SUMMARY: 1. The test was terminated due to protocol completion. 2. The heart rate was 85 beats per minute at baseline and increased to a maximal 93 beats per minute after vasodilator infusion. 3. The resting blood pressure was 163/75 mmHg and decreased to 135/65 mmHg after vasodilator infusion. 4. The patient did not develop clinically significant symptoms beyond the usual vasodilator effects. 5. The resting electrocardiogram demonstrated normal sinus rhythm with right bundle branch block and PAC. Subsequent stress ECGs did not show ST changes consistent with myocardial ischemia. 6. There were no significant arrhythmias. 7. There was no transient heart block during vasodilator infusion. SCINTIGRAPHIC FINDINGS: 1. There is no significant patient motion noted on the raw images. Extracardiac findings include intestinal uptake with minimal/no gallbladder signal.. 2. The SPECT images demonstrate a large left ventricular cavity with an estimated left ventricular end-diastolic volume of 194 mL (normal < 149 mL for males, < 102 mL for females). 3. There is no stress-induced transient ischemic dilation (TID) of the left ventricular cavity. 4. SPECT images: Attenuation-corrected and hmd-ssfewdcmubd-xcphefkyc SPECT images were evaluated. SPECT images demonstrate abnormal myocardial perfusion. * There is a large, moderate to severe defect located in the mid to distal anterior, anteroseptal, and septal wall segments with extension into the apex . The defect is fixed and partially normalizes with attenuation-correction. It is associated with overlying regional wall motion hypokinesis/akinesis. 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 * There is a medium size, moderate intensity defect located in the basal to distal inferior wall segments. The defect is fixed and normalizes with attenuation-correction. The perfusion finding is best explained by artifact. 5. The gated SPECT images demonstrate abnormal systolic function. Regional wall motion is abnormal with corresponding hypokinetic and akinetic segments in the mid to distal anterior wall and apical segments respectively. 6. The calculated post-stress LVEF is 29%. Participating Fellow: Juan R Conn M.D. COMMUNICATION: Per this written report. ATTESTATION: I have personally reviewed the electrocardiograms and SPECT images with the participating physicians and agree with the report. Primary Diagnostic Code: SIGNIFICANT ABNORMALITY, ATTN NEEDED Primary Interpreting Staff: JEB SANTOS MD, CARDIOLOGY ATTENDING Verified by commercial accountant for JEB SANTOS MD /JEB MANCILLA-CDD [facility] December 14, 2024 07:49 AM [id number] REGADENOSON 0.1MG X3 (LEXISCAN): ROBBIE HUANG [id number] -1940 M [facility] Date: DECEMBER 14, 2024@07:49 Req Phys: FARHAT BRIGGS [facility] Loc: NUCLEAR MEDICINE [place]: [place] [address] (Case [id number] COMPLETE)[id number] REGADENOSON 0.1MG X3 (STEPHON(NM Detailed) CPT:J2785 Reason for Study: SEE CLINICAL HISTORY Clinical History: [facility] No Active Outpatient Medications (including Supplies): Active Outpatient Medications Status ===== 1) EMPAGLIFLOZIN 10MG TAB TAKE ONE TABLET BY MOUTH EVERY ACTIVE MORNING PROTEINURIA Active Non-VA Medications Status ===== 1) Non-VA AMLODIPINE BESYLATE 10MG TAB 10MG [...] ACTIVE Indication: FOR CHOLESTEROL 6 Total Medications WT: 186 lb [84.37 kg] (12/03/2024 13:07) HT: 66 in [167.6 cm] (05/25/2024 13:57) How do you want to stress the patient? Pharmacological Do you want the patient to take their beta blockers for the exam? No History/Reason for Exam: Sudden LOO and BLE edema past 2+ weeks. Report Status: Verified Date Reported: DECEMBER 14, 2024 Date Verified: DECEMBER 14, 2024 Relocation Coordinator E-Sig: Report: [facility], [place], [place] STUDY: Regadenoson (Lexiscan) SPECT Tc-99m myoview (tetrofosmin) myocardial perfusion imaging with gated SPECT and LVEF. Impression: 1. This is an abnormal nuclear stress test due to dilated ventricle, reduced ejection fraction, infarct/scar. There is no ischemia. 2. There was no clinical, hemodynamic, or electrocardiographic evidence for myocardial ischemia during vasodilator infusion. 3. Perfusion: SPECT images demonstrate abnormal myocardial perfusion (see description below). 4. Function: Gated SPECT images demonstrate abnormal systolic function. LVEF is 29%. Regional wall motion is abnormal with corresponding hypokinetic and akinetic segments in the mid to distal anterior wall and apical segments respectively. 5. There comparison:is previous examination/report available for comparison. There is no significant change from 10/07/2020. 6. CT CHEST: Demonstrates known coronary arterial calcification/stents. Bilateral hilar calcifications. CLINICAL INDICATION: Evaluation of extent and severity of known coronary artery disease CLINICAL HISTORY: 84 year-old male who has known history of coronary artery disease. Cardiac risk factors include: Prior CABG with PCI, heart failure reduced ejection fraction, hypertension, coronary artery disease. TECHNIQUE: Resting Images: A one-day protocol was followed. 5.5 mCi of Tc-99m tetrofosmin were injected intravenously at rest. 45-90 minutes later, SPECT imaging of the heart was performed with tomographic and three-dimensional reconstructions with Recoup/CT 640 system. Exercise: Patient exercised for 6 minutes on the Chano protocol to a sub-maximal HR of 108 (79% predicted) and 7 METS. GXT was discontinued prior to completion due to dyspnea/fatigue. No Sx of CP noted. No ST-T changes observed . BP response appropriate with exercise. No arrhythmias observed. Regadenoson (Lexiscan): GXT transitioned to Regadenoson protocol at 6 minutes in recovery. 0.4 mg of regadenoson was infused over 10-12 seconds followed by 16.5 mCi of Tc-99m tetrofosmin injected intravenous immediately thereafter. Symptoms of dyspnea noted with vasodilator infusion. No CP Sx or significant ST-T changes during infusion or recovery. Stress Images: 45-90 minutes later, post-stress SPECT imaging of the heart was performed with tomographic and three-dimensional reconstructions. Gated SPECT data were obtained to calculate left ventricular volumes and ejection fraction post-stress. Computed tomographic scan was acquired using 4-slice CT system after stress imaging, and attenuation-corrected images were generated from both data sets in addition to the conventional lkd-lczrhfutkwt-mbgakdwod images. Both filtered back projection and iterative reconstructed images were available for review. Motion correction was not applied to the rest and/or post-stress acquisitions. FINDINGS: CLINICAL/HEMODYNAMIC/ECG SUMMARY: 1. The test was terminated due to protocol completion. 2. The heart rate was 85 beats per minute at baseline and increased to a maximal 93 beats per minute after vasodilator infusion. 3. The resting blood pressure was 163/75 mmHg and decreased to 135/65 mmHg after vasodilator infusion. 4. The patient did not develop clinically significant symptoms beyond the usual vasodilator effects. 5. The resting electrocardiogram demonstrated normal sinus rhythm with right bundle branch block and PAC. Subsequent stress ECGs did not show ST changes consistent with myocardial ischemia. 6. There were no significant arrhythmias. 7. There was no transient heart block during vasodilator infusion. SCINTIGRAPHIC FINDINGS: 1. There is no significant patient motion noted on the raw images. Extracardiac findings include intestinal uptake with minimal/no gallbladder signal.. 2. The SPECT images demonstrate a large left ventricular cavity with an estimated left ventricular end-diastolic volume of 194 mL (normal < 149 mL for males, < 102 mL for females). 3. There is no stress-induced transient ischemic dilation (TID) of the left ventricular cavity. 4. SPECT images: Attenuation-corrected and tcv-iwaxqwbyuas-hiwvixuyu SPECT images were evaluated. SPECT images demonstrate abnormal myocardial perfusion. * There is a large, moderate to severe defect located in the mid to distal anterior, anteroseptal, and septal wall segments with extension into the apex . The defect is fixed and partially normalizes with attenuation-correction. It is associated with overlying regional wall motion hypokinesis/akinesis. 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 * There is a medium size, moderate intensity defect located in the basal to distal inferior wall segments. The defect is fixed and normalizes with attenuation-correction. The perfusion finding is best explained by artifact. 5. The gated SPECT images demonstrate abnormal systolic function. Regional wall motion is abnormal with corresponding hypokinetic and akinetic segments in the mid to distal anterior wall and apical segments respectively. 6. The calculated post-stress LVEF is 29%. Participating Fellow: Juan R Conn M.D. COMMUNICATION: Per this written report. ATTESTATION: I have personally reviewed the electrocardiograms and SPECT images with the participating physicians and agree with the report. Primary Diagnostic Code: SIGNIFICANT ABNORMALITY, ATTN NEEDED Primary Interpreting Staff: JEB SANTOS MD, CARDIOLOGY ATTENDING Verified by commercial accountant for JEB SANTOS MD /JEB MANCILLA-CDD [facility] December 14, 2024 07:49 AM TC-99M X2 FROM NON -HEU SOURCE: ROBBIE HUANG [id number] -1940 M Exm Date: DECEMBER 14, 2024@07:49 Req Phys: FARHAT BRIGGS Pat Loc: [facility] 16-1 (Req'g Loc) Img Loc: NUCLEAR MEDICINE Service: [place] [address] (Case [id number] COMPLETE)TC-99M X2 FROM NON-HEU SOURCE (NM Detailed) CPT:Q9969 Reason for Study: SEE CLINICAL HISTORY Clinical History: Cardiology approval by: Petra SERVICE CONNECTED? No Active Outpatient Medications (including Supplies): Active Outpatient Medications Status ===== 1) EMPAGLIFLOZIN 10MG TAB TAKE ONE TABLET BY MOUTH EVERY ACTIVE MORNING PROTEINURIA Active Non-VA Medications Status ===== 1) Non-VA AMLODIPINE BESYLATE 10MG TAB 10MG [...] ACTIVE Indication: FOR CHOLESTEROL 6 Total Medications WT: 186 lb [84.37 kg] (12/03/2024 13:07) HT: 66 in [167.6 cm] (05/25/2024 13:57) How do you want to stress the patient? Pharmacological Do you want the patient to take their beta blockers for the exam? No History/Reason for Exam: Sudden LOO and BLE edema past 2+ weeks. Report Status: Verified Date Reported: DECEMBER 14, 2024 Date Verified: DECEMBER 14, 2024 Relocation Coordinator E-Sig: Report: [place], [place] STUDY: Regadenoson (Lexiscan) SPECT Tc-99m myoview (tetrofosmin) myocardial perfusion imaging with gated SPECT and LVEF. Impression: 1. This is an abnormal nuclear stress test due to dilated ventricle, reduced ejection fraction, infarct/scar. There is no ischemia. 2. There was no clinical, hemodynamic, or electrocardiographic evidence for myocardial ischemia during vasodilator infusion. 3. Perfusion: SPECT images demonstrate abnormal myocardial perfusion (see description below). 4. Function: Gated SPECT images demonstrate abnormal systolic function. LVEF is 29%. Regional wall motion is abnormal with corresponding hypokinetic and akinetic segments in the mid to distal anterior wall and apical segments respectively. 5. There comparison:is previous examination/report available for comparison. There is no significant change from 10/07/2020. 6. CT CHEST: Demonstrates known coronary arterial calcification/stents. Bilateral hilar calcifications. CLINICAL INDICATION: Evaluation of extent and severity of known coronary artery disease CLINICAL HISTORY: 84 year-old male who has known history of coronary artery disease. Cardiac risk factors include: Prior CABG with PCI, heart failure reduced ejection fraction, hypertension, coronary artery disease. TECHNIQUE: Resting Images: A one-day protocol was followed. 5.5 mCi of Tc-99m tetrofosmin were injected intravenously at rest. 45-90 minutes later, SPECT imaging of the heart was performed with tomographic and three-dimensional reconstructions with [employer] NM/CT 640 system. Exercise: Patient exercised for 6 minutes on the Chano protocol to a sub-maximal HR of 108 (79% predicted) and 7 METS. GXT was discontinued prior to completion due to dyspnea/fatigue. No Sx of CP noted. No ST-T changes observed . BP response appropriate with exercise. No arrhythmias observed. Regadenoson (Lexiscan): GXT transitioned to Regadenoson protocol at 6 minutes in recovery. 0.4 mg of regadenoson was infused over 10-12 seconds followed by 16.5 mCi of Tc-99m tetrofosmin injected intravenous immediately thereafter. Symptoms of dyspnea noted with vasodilator infusion. No CP Sx or significant ST-T changes during infusion or recovery. Stress Images: 45-90 minutes later, post-stress SPECT imaging of the heart was performed with tomographic and three-dimensional reconstructions. Gated SPECT data were obtained to calculate left ventricular volumes and ejection fraction post-stress. Computed tomographic scan was acquired using 4-slice CT system after stress imaging, and attenuation-corrected images were generated from both data sets in addition to the conventional [id number] images. Both filtered back projection and iterative reconstructed images were available for review. Motion correction was not applied to the rest and/or post-stress acquisitions. FINDINGS: CLINICAL/HEMODYNAMIC/ECG SUMMARY: 1. The test was terminated due to protocol completion. 2. The heart rate was 85 beats per minute at baseline and increased to a maximal 93 beats per minute after vasodilator infusion. 3. The resting blood pressure was 163/75 mmHg and decreased to 135/65 mmHg after vasodilator infusion. 4. The patient did not develop clinically significant symptoms beyond the usual vasodilator effects. 5. The resting electrocardiogram demonstrated normal sinus rhythm with right bundle branch block and PAC. Subsequent stress ECGs did not show ST changes consistent with myocardial ischemia. 6. There were no significant arrhythmias. 7. There was no transient heart block during vasodilator infusion. SCINTIGRAPHIC FINDINGS: 1. There is no significant patient motion noted on the raw images. Extracardiac findings include intestinal uptake with minimal/no gallbladder signal.. 2. The SPECT images demonstrate a large left ventricular cavity with an estimated left ventricular end-diastolic volume of 194 mL (normal < 149 mL for males, < 102 mL for females). 3. There is no stress-induced transient ischemic dilation (TID) of the left ventricular cavity. 4. SPECT images: Attenuation-corrected and mnk-[id number]-vazfgtmpl SPECT images were evaluated. SPECT images demonstrate abnormal myocardial perfusion. * There is a large, moderate to severe defect located in the mid to distal anterior, anteroseptal, and septal wall segments with extension into the apex . The defect is fixed and partially normalizes with attenuation-correction. It is associated with overlying regional wall motion hypokinesis/akinesis. 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 * There is a medium size, moderate intensity defect located in the basal to distal inferior wall segments. The defect is fixed and normalizes with attenuation-correction. The perfusion finding is best explained by artifact. 5. The gated SPECT images demonstrate abnormal systolic function. Regional wall motion is abnormal with corresponding hypokinetic and akinetic segments in the mid to distal anterior wall and apical segments respectively. 6. The calculated post-stress LVEF is 29%. Participating Fellow: Juan R Conn M.D. COMMUNICATION: Per this written report. ATTESTATION: I have personally reviewed the electrocardiograms and SPECT images with the participating physicians and agree with the report. Primary Diagnostic Code: SIGNIFICANT ABNORMALITY, ATTN NEEDED Primary Interpreting Staff: JEB SANTOS MD, CARDIOLOGY ATTENDING Verified by commercial accountant for JEB SANTOS MD /JEB [facility]CILL[facility] Encounter Notes: All associated encounter notes This section contains the clinical notes associated to the Encounter. Date/Time Encounter Note(s) Provider Source Nov 15, 2024 12:15 PM CARE COORDINATION HOME TELEHEALTH FOLLOW-UP NOTE: LOCAL TITLE: HT INTERVENTION NOTE STANDARD TITLE: CARE COORDINATION HOME TELEHEALTH FOLLOW-UP NOTE DATE OF NOTE: NOV 15, 2024@12:15 ENTRY DATE: NOV 15, 2024@12:15:29 AUTHOR: GARCIA BRUNNER EXP COSIGNER: URGENCY: STATUS: COMPLETED HT Admission Date: 04/10/2024 HT Diagnosis: HTN Provider-ordered vital sign goals: SBP<140 DBP <90 HT electronic capture of the blood pressure? Yes HT Emergency classification: L HT Category of Care: LOBO Last completion date: 10/15/24 3-month average response rate percentage: 97% HT Equipment Assigned: -COG[place]ANTE(1VISION) [employer] TAB ACTIVE V2 -BPM 651 BLE WIDE RANGE Transmitting: Cellular modem Lives Alone: No 02: No PROBLEM: Blood pressure not well controlled. GOAL: Blood pressure will be less than 140/90. INTERVENTIONS: 1. [place] will monitor home vitals daily over the next 6 months 2. Educate the patient on the signs and symptoms of hypo-and hypertension; 3. will stay on a low-salt diet over the next 6 months. 4. [place]an will continue to stay active and exercise as able. 5. HT RN to encourage daily use of HT equipment. 6. HT RN to encourage the to call Home Telehealth for assistance if/when needed to coordinate care. 7. HT RN to submit semiannual/on-request summary reports to the primary care provider. is actively enrolled in the Home Telehealth program. Review of data shows the following out of range responses: Patient Name: ROBBIE HUANG Disease(s): Hypertension Date Range: 11/01/2024 - 11/15/2024 [place] Vitals Report Reading Date Sys/[place] BP-HR 11/14/24 136/73 (12:05) 70 (12:05) 11/13/24 137/71 (10:50) 68 (10:50) 11/12/24 149/72 (20:45) 69 (20:45) 11/12/24 123/65 (10:22) 66 (10:22) 11/11/24 133/69 (20:31) 70 (20:31) 11/11/24 133/69 (11:58) 66 (11:58) 11/10/24 137/68 (21:32) 70 (21:32) 11/10/24 136/71 (13:20) 65 (13:20) 11/09/24 124/60 (20:57) 66 (20:57) 11/08/24 142/73 (21:12) 69 (21:12) 11/07/24 144/66 (20:50) 70 (20:50) 11/06/24 145/71 (20:54) 64 (20:54) 11/06/24 124/73 (09:41) 70 (09:41) 11/05/24 136/73 (20:59) 71 (20:59) 11/05/24 138/73 (19:01) 65 (19:01) 11/04/24 146/71 (20:59) 72 (20:59) 11/04/24 142/67 (11:00) 68 (11:00) 11/03/24 149/75 (20:54) 71 (20:54) 11/03/24 156/72 (20:53) 73 (20:53) 11/02/24 148/77 (21:46) 71 (21:46) 11/02/24 132/69 (12:12) 66 (12:12) 11/01/24 129/70 (21:08) 74 (21:08) 11/01/24 150/73 (21:07) 77 (21:07) 11/01/24 133/71 (11:22) 68 (11:22) [place] Average Report Sys/[place] BP-HR Average 138/70 69 High 156/77 77 Low 123/60 64 Assessment/Intervention( s)/Plan: Contacted for check in for HTN management. He stated that he has been doing well. He denies any recent chest pain/pressure, palpitations, dizziness, blurry vision, etc. He does endorse SOA and weakness/fatigue increased since COVID diagnosis. He stated that from what he is hearing that this is a common post-diagnosis concern. Informed that this is very common but if it becomes to the point that it is impairing daily function or increasing in severity, please reach out to further evaluate. [place]an denies it being to that point yet . He appreciated assistance and will call back with any new concerns. PROVIDER: - Data update above for FYI - [place]an with increased SOA and fatigue post-COVID - denies any other additional concerns at this time - HT RN to continue to monitor; please alert any changes, thanks! /es/ GARCIA BRUNNER, MSN, RN-BC PARENT AIDE Signed: 11/15/2024 15:29 Receipt Acknowledged By: 11/15/2024 16:03 /es/ Farhat Briggs MD Primary Care Attending GARCIA BRUNNER [facility]
--- OUTSIDE RECORDS SUMMARY | 2024-11-22 08:37 | XMS_ITS | Encounter Summary ---
Author Name [facility] Organization [facility] Address [address] [place] [address] Care Team Providers Care Grinder Dresser Name Role Phone JORDYN FARHAT Primary Care [...] AUTOM OTIVE - RETI Jul 25, 2018 [id number] MALUTI PERKINS SPOUSE MEDICARE (WNR) MEDICARE (M) PART B Jan 22, 2007 PART B [id number] MALUJUSTYNA TINAJERO RGE PATIENT MEDICARE (WNR) MEDICARE (M) PART A Sep 22, 2005 PART A [id number] REINAJUSTYNA AKBAR PATIENT FOR LIFE TRICA RE FOR LIFE Jul 25, 2017 FOR LIFE [id number] ROBBIE HUANG JR PATIENT Selected Encounter This section includes the information on record at ID for the Encounter. Date/Time Encounter Type Encounter Description Reason Provider Source November 22, 2024 12:37 PM PH1 ASSMT&MGMT NQHP 11-20 TELEPHONE BY STAFF ICD-10-CM I10 Essential (primary) hypertension KEEGAN BRUNNER E Encounter Template Text not used by ID Assessments - Encounter Diagnoses This section includes the primary and secondary diagnoses documented for the Encounter. Date/Time Primary/Secondary Diagnosis Diagnosis Name Provider Source November 22, 2024 12:37 PM PRIMARY Essential (primary) hypertension SRINIVASAN BRUNNER [facility] Plan of Treatment: Future Appointments (+ 6 months) and Future Tests (+/- 45 days) The Plan of Treatment section includes future care activities for the [facility] This section includes future appointments and future orders which are active, pending or scheduled. Future Appointments This section includes appointments that were scheduled to occur 6 months from the date of the Encounter, up to a maximum of 20 appointments. The data comes from all ID treatment [facility]. Appointment Date/Time Appointment Type Appointme nt Facility Name December 03, 2024 01:00 PM AMB[facility] NONE [place] [facility] December 06, 2024 12:15 PM [facility] December 14, 2024 08:00 AM [facility]ORY - NONE [place] Jan 04, 2025 01:30 PM AMBULATORY - SURGERY [place] [facility] Jan 31, 2025 03:00 PM [facility] Feb 05, 2025 01:00 PM [facility] Feb 05, 2025 02:00 PM AMBULATORY - MEDICINE [facility] Active, Pending, and Scheduled Orders This section includes a listing of several types of active, pending, and scheduled orders, including clinic medications orders, diagnostic test orders, procedure orders and consult orders; where the start date of the order is 45 days before the date of the Encounter or 45 days after the date of theEncounter. The data comes from all ID treatment facilities. Test Date/Time Test Type Test Details Facility Name Jan 04, 2025 12:00 AM Imaging - Vascular Lab Order SEGMENTAL PRESSURES, LOWER EXT([place]) UNILAT [facility] Jan 04, 2025 12:00 AM Imaging - Vascular Lab Order VENOUS DUPLEX LOWER EXT BILAT [facility] Lab Results: +/- 30 days of the encounter This section includes the Chemistry and Hematology Lab Results on record with ID for the patient. Radiology Reports and Pathology Reports are provided separately, in subsequent sections. Lab Results This section contains the Chemistry/Hematology Results that were resulted 30 days before or 30 daysafter the date of the Encounter. Date/Time Source Result Type Result - Unit Interpretation Reference Range Specimen Type Comment December 03, 2024 02:03 PM [facility] PROTEIN ELECTROPHORESIS URINE Specimen Type: URINE No comment entered. Ordering Provider: FARHAT BRIGGS Report Released Date/Time: December 03, 2024 01:24 PM Reporting Lab: [address] [address] Performing Lab: [address] [address] TOTAL PROTEIN 17.0 mg/dL Not Estab. .ALBUMIN ELEC 29.4 .ALPHA 1 ELEC 5.2 .ALPHA 2 ELEC 21.5 .BETA ELEC 19.7 .GAMMA ELEC 24.2 .M-SPIKE Not Observed Not Observed December 03, 2024 02:03 PM [facility] TOTAL PROTEIN URINE Specimen Type: URINE No comment entered. Ordering Provider: FARHAT BRIGGS Report Released Date/Time: December 03, 2024 01:24 PM Reporting Lab: [address] [address] Performing Lab: [address] [address] TOTAL PROTEIN 16 mg/dL H 0-14 December 03, 2024 02:03 PM [facility] CREATININE URINE Specimen Type: URINE No comment entered. Ordering Provider: FARHAT BRIGGS Report Released Date/Time: December 03, 2024 01:24 PM Reporting Lab: [address] [address] Performing Lab: [address] [address] CREATININE 63.6 mg/dL December 03, 2024 02:03 PM [facility] URINALYSIS URINE Specimen Type: URINE Comment: Microscopic not indicated Ordering Provider: FARHAT BRIGGS Report Released Date/Time: December 03, 2024 01:29 PM Reporting Lab: [address] [address] Performing Lab: [address] [address] URINE COLOR Light Yellow Colorless-Yello w APPEARANCE Clear Clear UROBILINOGEN Normal mg/dL Normal URINE BLOOD Negative Negative URINE BILIRUBIN Negative Negative URINE KETONES Negative mg/dL Negative URINE PROTEIN Negative mg/dL Negative-Tr rachell URINE PH 5.0 4.5-8.0 URINE NITRITE Negative Negative URINE LEUKOCYTE EST Negative Negative SPECIFIC GRAVITY 1.014 1.005-1.030 URINE GLUCOSE >1000 mg/dL H Negative December 03, 2024 01:45 PM [facility] ANTI-NUCLEAR Ab SERUM Specimen Type: SERUM Comment: Atypical speckled resembling DFS (Dense-Fine Speckled. The DFS pattern has a low prevalence in systemic autoimmune rheumatic diseases. The clinical association remains unclear. Due to its close resemblance to other patterns of clinical relevance, (i.e. Homogeneous, speckled, and mixed patterns) follow-up testing may be recommended. ANTI-NUCLEAR Ab reported incorrectly as Atypical Speckled by [[id number]]. Changed to 1:320 Atypical Speckled on December 06, 2024@12:59 by [[id number]]. Ordering Provider: FARHAT BRIGGS Report Released Date/Time: December 03, 2024 01:38 PM Reporting Lab: [address] [address] Performing Lab: [address] [address] ANTI-NUCLEAR Ab 1:320 Atypical Speckled <1:80 December 03, 2024 01:45 PM [facility] ROSALIE (SERUM) SERUM Specimen Type: SERUM Comment: BNP results less than or equal to 100 pg/ml are life assurance representative of normal values in patients without CHF. BNP results greater than 100 pg/ml are considered abnormal and suggestive of CHF. Higher BNP concentrations in the first 72 hours after Acute Coronary Syndrome are associated with an increased risk of , myocardial infarction and CHF. Ordering Provider: FARHAT BRIGGS Report Released Date/Time: December 03, 2024 01:24 PM Reporting Lab: [address] [address] Performing Lab: [facility] [address] [facility] [address] .ALBUMIN ELEC 3.6 g/dL 2.9-4.4 .ALPHA 1 [...] INTERPRETATION Comment December 03, 2024 01:45 PM [facility] JORDAN SCREEN SERUM Specimen Type: SERUM No comment entered. Ordering Provider: FARHAT BRIGGS Report Released Date/Time: December 03, 2024 01:38 PM Reporting Lab: [address] [address] Performing Lab: [address] [address] JORDAN SCREEN Negative Negative December 03, 2024 01:45 PM [facility] BNP (Mobile2Me) PLASMA Specimen Type: PLASMA Comment: BNP results less than or equal to 100 pg/ml are life assurance representative of normal values in patients without CHF. BNP results greater than 100 pg/ml are considered abnormal and suggestive of CHF. Higher BNP concentrations in the first 72 hours after Acute Coronary Syndrome are associated with an increased risk of , myocardial infarction and CHF. Ordering Provider: FARHAT BRIGGS Report Released Date/Time: December 03, 2024 01:24 PM Reporting Lab: [address] [address] Performing Lab: [address] [address] BNP (MCCALL) 225 pg/mL H 0-100 December 03, 2024 01:45 PM [facility] PL[facility] Specimen Type: PLASM A [...] December 03, 2024 01:24 PM Reporting Lab: [facility] [address] [facility] [address] Performing Lab: [facility] [address] [facility] [address] CREATININE 2.05 mg/dL H 0.72-1.25 UREA NITROGEN [...] eGFR (CKD-EPI) December 03, 2024 01:45 PM [facility] CK TOTAL PLASMA Specimen Type: PLASM A [...] 03, 2024 01:33 PM Reporting Lab: [address] [address] Performing Lab: [address] [address] CK TOTAL 76 U/L 30-200 December 03, 2024 01:45 PM [facility] CBC/PLT BLOOD Specimen Type: BLOOD No comment entered. Ordering Provider: FARHAT BRIGGS Report Released Date/Time: December 03, 2024 01:33 PM Reporting Lab: [address] [address] Performing Lab: [address] [address] WBC 5.6 10*3/uL 5.0-10.0 RBC 4.24 10*6/uL L 4.6-6.2 HGB 12.8 g/dL L 14.0-18.0 HCT 39.4 L 42.0-52.0 MCV 92.9 fL 80.0-94.0 MCH 30.2 pg 27.0-31.0 MCHC 32.5 g/dL 32.0-36.0 PLT 248 10*3/uL 150-450 MPV 10.2 fL 9.0-13.1 RDW 14.2 11.0-16.0 NRBC 0.0 0.0-0.0 December 03, 2024 01:45 PM [facility] AUTOMATED DIFF BLOOD Specimen Type: BLOOD No comment entered. Ordering Provider: FARHAT BRIGGS Report Released Date/Time: December 03, 2024 01:33 PM Reporting Lab: [facility] [address] [facility] [address] Performing Lab: [place] [address] [facility] [address] A-LYMPH % 22.1 L 24.0-44.0 A-MONO % [...] and tobacco- related health factors from the ID facility where the Encounter took place. Current Smoking Status This section includes the most current smoking, or tobacco-related health factor, from the ID facility where the Encounter took place. Date/Time Current Smoking Status Comment Kelechi dial May 25, 2023 01:30 PM VA-TOBACCO QUIT 15 YRS OR MORE [facility] Tobacco Use History This section includes a history of the smoking, or tobacco-related health factors, that were collected on or before the date of the Encounter. The data comes from the ID facility where the Encounter took place. Date/Time Smoking Status/Tobacco Use Comment Ricardo acgenet May 25, 2023 01:30 PM VA-TOBACCO QUIT 15 YRS OR MORE [facility] Jun 18, 2022 01:30 PM VA-TOBACCO FORMER USER [facility] Jun 18, 2022 01:30 PM VA-TOBACCO QUIT 15 YRS OR MORE [facility] Jun 29, 2021 03:00 PM VA-TOBACCO FORMER USER [facility] Jun 29, 2021 03:00 PM VA-TOBACCO QUIT 15 YRS OR MORE [facility] Jul 28, 2020 09:30 AM VA-TOBACCO FORMER USER [facility] Jul 28, 2020 09:30 AM VA-TOBACCO QUIT 15 YRS OR MORE [facility] Jul 09, 2019 03:25 PM VA-TOBACCO NEVER USED [facility] Aug 24, 2018 02:06 PM VA-TOBACCO FORMER USER [facility] Aug 24, 2018 02:06 PM VA-TOBACCO QUIT 15 YRS OR MORE [facility] Sep 22, 2017 07:57 AM V9 LIFETIME NON-USER OF TOBACCO [facility] December 15, 2015 08:07 AM V9 LIFETIME NON-USER OF TOBACCO [facility] Jun 14, 2014 07:48 AM V9 LIFETIME NON-USER OF TOBACCO [facility] Jun 07, 2013 10:08 AM V9 LIFETIME NON-USER OF TOBACCO [facility] May 29, 2012 10:26 AM V9 LIFETIME NON-USER OF TOBACCO [facility] Nov 22, 2011 02:23 PM V9 LIFETIME NON-USER OF TOBACCO [facility] Oct 23, 2010 09:22 AM V9 QUIT TOBACCO >7 YEARS AGO [facility] May 30, 2007 03:08 PM V9 LIFETIME NON-USER OF TOBACCO [facility] Radiology Reports: +/- 30 days of [...] the Encounter. The data comes from all [facility] facilities. Date/Time Radiology Report Provider Source December 14, 2024 07:49 AM CARD. STRESS TEST W/TREADMILL/...: ROBBIE HUANG [id number] [facility]-1940 M Exm Date: DECEMBER 14, 2024@07:49 Req Phys: JORDYNFARHAT Raul Pat Loc: [facility] PACT [facility] 16-1 (Req'g Loc) Img Loc: NUCLEAR MEDICINE Service: [place] [address] (Case [id number] COMPLETE)CARD. STRESS TEST W/TREADMILL/...(NM Detailed) CPT:40568 Reason for Study: SEE CLINICAL HISTORY Clinical [...] 14, 2024 Date Verified: DECEMBER 14, 2024 Catapult And Arresting Gear Officer E-Sig: Report: STUDY: GXT with vasodilator REPORT: [...] Staff: CHAO ORR APRN, Cardiology Verified by janitor cleaner for CHAO ORR /[facility] December 14, 2024 07:49 AM [id number] REGADENOSON 0.1MG X4 (LEXISCAN): ROBBIE HUANG [id number] -1940 M Ex Date: DECEMBER 14, 2024@07:49 Req Phys: FARHAT BRIGGS Loc: [facility] 16-1 (Req'g Loc) Img Loc: NUCLEAR MEDICINE Service: [place] [address] (Case [id number] COMPLETE)[id number] REGADENOSON 0.1MG X4 (STEPHON(NM Detailed) CPT:J2785 Reason for Study: SEE CLINICAL HISTORY Clinical History: Cardiology approval by: [facility] SERVICE CONNECTED? No Active Outpatient Medications (including [...] 14, 2024 Date Verified: DECEMBER 14, 2024 Catapult And Arresting Gear Officer E-Sig: Report: STUDY: GXT with vasodilator REPORT: [...] Staff: CHAO ORR APRN, Cardiology Verified by janitor cleaner for CHAO ORR /CHAO [facility] December 14, 2024 07:49 AM CARD. STRESS TEST W/TREADMILL/...: ROBBIE HUANG [id number] -1940 M Exm Date: DECEMBER 14, 2024@07:49 Req Phys: FARHAT BRIGGS Loc: [facility] 16-1 (Req'g Loc) Img Loc: NUCLEAR MEDICINE Service: [place] [address] (Case [id number] COMPLETE)CARD. STRESS TEST W/TREADMILL/...(NM Detailed) CPT:12970 Proc Modifiers : GXT Reason for Study: SEE CLINICAL HISTORY Clinical History: Cardiology approval by: [facility] SERVICE CONNECTED? No Active Outpatient Medications (including [...] 14, 2024 Date Verified: DECEMBER 14, 2024 Catapult And Arresting Gear Officer E-Sig: Report: [facility], [place], [place] STUDY: Regadenoson (Lexiscan) SPECT Tc-99m myoview [...] performed with tomographic and three-dimensional reconstructions with [employer] NM/CT 640 system. Exercise: Patient exercised for [...] data sets in addition to the conventional dfm-itwhdcgintf-jgrnvitrq images. Both filtered back projection and iterative [...] ventricular cavity. 4. SPECT images: Attenuation-corrected and iaa-ssioihiyzdy-amqgatjak SPECT images were evaluated. SPECT images demonstrate [...] JEB SANTOS MD, CARDIOLOGY ATTENDING Verified by janitor cleaner for JEB SANTOS MD /JEB [facility] December 14, 2024 07:49 AM 85161(D) MYOCARDIA L SPECT(MULTIPLE): ROBBIE HUANG [id number] -1940 M Ex Date: DECEMBER 14, 2024@07:49 Req Phys: FARHAT BRIGGS Pat Loc: [facility] 16-1 (Req'g Loc) Img Loc: NUCLEAR MEDICINE Service: [place] [address] (Case [id number] COMPLETE)80468(D) MYOCARDIAL SPECT(MULTIPL(NM Detailed) CPT:64529 Proc Modifiers : Lexiscan (Regadenoson) CPT Modifiers : 51 MULTIPLE PROCEDURES Reason for Study: SEE CLINICAL HISTORY Radiopharmaceutical: TC-99M TETROFOSMIN (MYOVIEW)-1, 5.5 mCi Adm'd on DECEMBER 14, 2024@07:45 by YENNY GAMBOA E Route [employer] Radiopharmaceutical: TC-99M TETROFOSMIN (MYOVIEW)-2, 16.5 mCi Adm'd on DECEMBER 14, 2024@09:53 by YENNY GAMBOA Route [employer] Pharmaceutical: REGADENOSON 0.4MG/5ML INJ SYRINGE 5ML, 0.4 mg Adm'd on DECEMBER 14, 2024@09:53 by YENNY GAMBOA Clinical History: Cardiology approval by: [facility] DEEPAK CONNECTED? No Active Outpatient Medications (including Supplies): [...] 14, 2024 Date Verified: DECEMBER 14, 2024 Catapult And Arresting Gear Officer E-Sig: Report: [place], [place] STUDY: Regadenoson (Lexiscan) SPECT Tc-99m myoview [...] performed with tomographic and three-dimensional reconstructions with [employer] NM/CT 640 system. Exercise: Patient exercised for [...] data sets in addition to the conventional anl-flqswlvjprd-rlmydsppi images. Both filtered back projection and iterative [...] ventricular cavity. 4. SPECT images: Attenuation-corrected and kxc-dhlyfunuxvd-pqzubffes SPECT images were evaluated. SPECT images demonstrate [...] JEB SANTOS MD, CARDIOLOGY ATTENDING Verified by janitor cleaner for JEB SANTOS MD /[facility] December 14, 2024 07:49 AM MYOVIEW(1): ROBBIE HUANG MICA [id number] -1940 M Exm Date: DECEMBER 14, 2024@07:49 Req Phys: FARHAT BRIGGS [facility] Img Loc: NUCLEAR MEDICINE Service: [place] [address] (Case [id number] COMPLETE)MYOVIEW(1) (NM Detailed) CPT:A9502 Reason for Study: [...] 14, 2024 Date Verified: DECEMBER 14, 2024 Catapult And Arresting Gear Officer E-Sig: Report: [facility], [place], [place] STUDY: Regadenoson (Lexiscan) SPECT Tc-99m myoview [...] performed with tomographic and three-dimensional reconstructions with Puls[employer] NM/CT 640 system. Exercise: Patient exercised for [...] data sets in addition to the conventional jqj-iwxijxcatmu-zmqqposnm images. Both filtered back projection and iterative [...] ventricular cavity. 4. SPECT images: Attenuation-corrected and ett-bnkfhxzhvqd-ykxnbjdau SPECT images were evaluated. SPECT images demonstrate [...] JEB SANTOS MD, CARDIOLOGY ATTENDING Verified by janitor cleaner for JEB SANTOS MD /[facility] December 14, 2024 07:49 AM MYOVIEW(2): ROBBIE HUANG [id number] [facility]1940 [facility] Date: DECEMBER 14, 2024@07:49 Req Phys: FARHAT BRIGGS [facility] (Req[facility]g Loc) Im Loc: NUCLEAR MEDICINE Service: [place] [address] (Case [id number] COMPLETE)MYOVIEW(2) (NM Detailed) CPT:A9502 Reason for Study: [...] 14, 2024 Date Verified: DECEMBER 14, 2024 Catapult And Arresting Gear Officer E-Sig: Report: [facility], [place], [place] STUDY: Regadenoson (Lexiscan) SPECT Tc-99m myoview [...] performed with tomographic and three-dimensional reconstructions with Puls[employer] V[employer] NM/CT 640 system. Exercise: Patient exercised for [...] data sets in addition to the conventional xrg-zoiksxkwwpe-fugutdprz images. Both filtered back projection and iterative [...] ventricular cavity. 4. SPECT images: Attenuation-corrected and dkq-yzatgaescsk-hircihzol SPECT images were evaluated. SPECT images demonstrate [...] JEB SANTOS MD, CARDIOLOGY ATTENDING Verified by janitor cleaner for JEB SANTOS MD /RAD SANTOS,[facility] December 14, 2024 07:49 AM [id number] REGADENOSON 0.1MG X1 (LEXISCAN): ROBBIE HUANG [id number] 1940 M Exm Date: DECEMBER 14, 2024@07:49 Req Phys: FARHAT BRIGGS Abby Loc: [facility] 16-1 (Req'g Loc) Img Loc: NUCLEAR MEDICINE Service: [place] [address] (Case [id number] COMPLETE)[id number] REGADENOSON 0.1MG X1 (STEPHON(NM Detailed) CPT:J2785 Reason for Study: SEE CLINICAL HISTORY Clinical History: Cardiology approval by: tter SERVICE CONNECTED? No Active Outpatient Medications (including [...] 14, 2024 Date Verified: DECEMBER 14, 2024 Catapult And Arresting Gear Officer E-Sig: Report: [place] STUDY: Regadenoson (Lexiscan) SPECT Tc-99m myoview [...] performed with tomographic and three-dimensional reconstructions with Puls[employer] Vascular NM/CT 640 system. Exercise: Patient exercised for [...] data sets in addition to the conventional olm-wlsqqaluawv-uutgyseey images. Both filtered back projection and iterative [...] ventricular cavity. 4. SPECT images: Attenuation-corrected and ysv-wapxtpigoio-mxrwdkynb SPECT images were evaluated. SPECT images demonstrate [...] JEB SANTOS MD, CARDIOLOGY ATTENDING Verified by janitor cleaner for JEB SANTOS MD /[facility] December 14, 2024 07:49 AM [id number] REGADENOSON 0.1MG X2 (LEXISCAN): ROBBIE HUANG BANNERAlex [id number] -1940 M Ex Date: DECEMBER 14, 2024@07:49 Req Phys: FARHAT BRIGGS Loc: [facility] 16-1 (Req'g Loc) Img Loc: NUCLEAR MEDICINE Service: Unknown [place] [address] (Case [id number] COMPLETE)[id number] REGADENOSON 0.1MG X2 (STEPHON(NM Detailed) CPT:J2785 [...] 14, 2024 Date Verified: DECEMBER 14, 2024 Catapult And Arresting Gear Officer E-Sig: Report: [place] STUDY: Regadenoson (Lexiscan) SPECT Tc-99m myoview [...] performed with tomographic and three-dimensional reconstructions with Puls[employer] Vascular NM/CT 640 system. Exercise: Patient exercised for [...] data sets in addition to the conventional hrb-hsmmvngpofg-fhfljgpey images. Both filtered back projection and iterative [...] ventricular cavity. 4. SPECT images: Attenuation-corrected and qpi-srincqtpwfp-pwwwyinyt SPECT images were evaluated. SPECT images demonstrate [...] JEB SANTOS MD, CARDIOLOGY ATTENDING Verified by janitor cleaner for JEB SANTOS MD /JEB [facility] December 14, 2024 07:49 AM TC-99M X1 FROM NON -HEU SOURCE: ROBBIE HUANG MICA [id number] -1940 M Ex Date: DECEMBER 14, 2024@07:49 Req Phys: FARHAT BRIGGS [facility] [place]: NUCLEAR MEDICINE Service: [place] [address] (Case [id number] COMPLETE)TC-99M X1 FROM NON-HEU SOURCE (NM Detailed) CPT:Q9969 Reason for Study: SEE CLINICAL HISTORY Clinical History: [facility]iology approval [facility]: [facility] SERVICE CONNECTED? No Active Outpatient Medications (including [...] 14, 2024 Date Verified: DECEMBER 14, 2024 Catapult And Arresting Gear Officer E-Sig: Report: [facility], [place], [place] STUDY: Regadenoson (Lexiscan) SPECT Tc-99m myoview [...] performed with tomographic and three-dimensional reconstructions with Pulsar Vascular NM/CT 640 system. Exercise: Patient exercised for [...] data sets in addition to the conventional xvl-jvzqyxfuzjv-tkjabqula images. Both filtered back projection and iterative [...] ventricular cavity. 4. SPECT images: Attenuation-corrected and buk-pacpvflffty-fjptywsvp SPECT images were evaluated. SPECT images demonstrate [...] JEB SANTOS MD, CARDIOLOGY ATTENDING Verified by janitor cleaner for JEB SANTOS MD /[facility] December 14, 2024 07:49 AM [id number] REGADENOSON 0.1MG X3 (LEXISCAN): ROBBIE HUANG [id number] -1940 M Exm Date: DECEMBER 14, 2024@07:49 Req Phys: FARHAT BRIGGS Pat Loc: [facility] PACT WHITNEY 16-1 (Req'g Loc) Img Loc: NUCLEAR MEDICINE Service: [place] [address] (Case [id number] COMPLETE)[id number] REGADENOSON 0.1MG X3 (STEPHON(NM Detailed) CPT:J2785 [...] 14, 2024 Date Verified: DECEMBER 14, 2024 Catapult And Arresting Gear Officer E-Sig: Report: [facility], [place], [place] STUDY: Regadenoson (Lexiscan) SPECT Tc-99m myoview [...] performed with tomographic and three-dimensional reconstructions with Pulsar Vascular NM/CT 640 system. Exercise: Patient exercised for [...] data sets in addition to the conventional ujl-mvngutacljw-cjwydhwxm images. Both filtered back projection and iterative [...] ventricular cavity. 4. SPECT images: Attenuation-corrected and amm-rbugnwfmpks-uaiwfejtb SPECT images were evaluated. SPECT images demonstrate [...] JEB SANTOS MD, CARDIOLOGY ATTENDING Verified by janitor cleaner for JEB SANTOS MD /[facility] December 14, 2024 07:49 AM TC-99M X2 FROM NON -HEU SOURCE: ROBBIE HUANG [id number] -1940 M Exm Date: DECEMBER 14, 2024@07:49 Req Phys: FARHAT BRIGGS Loc: [facility] 16-1 (Req'g Loc) [facility] [place]: NUCLEAR MEDICINE Service: [place] [address] (Case [id number] COMPLETE)TC-99M X2 FROM NON-HEU SOURCE (NM Detailed) [...] 14, 2024 Date Verified: DECEMBER 14, 2024 Catapult And Arresting Gear Officer E-Sig: Report: [facility], [place], [place] STUDY: Regadenoson (Lexiscan) SPECT Tc-99m myoview [...] performed with tomographic and three-dimensional reconstructions with Pulsar Vascular NM/CT 640 system. Exercise: Patient exercised for [...] data sets in addition to the conventional jmg-tbmczlvttef-rmtaxgriq images. Both filtered back projection and iterative [...] ventricular cavity. 4. SPECT images: Attenuation-corrected and [id number] SPECT images were evaluated. SPECT images demonstrate [...] JEB SANTOS MD, CARDIOLOGY ATTENDING Verified by janitor cleaner for JEB SANTOS MD /[facility] Encounter Notes: All associated encounter notes This section contains the clinical notes associated to the Encounter. Date/Time Encounter Note(s) Provider Source November 26, 2024 09:13 AM ADDENDUM: LOCAL TITLE: Addendum STANDARD TITLE: ADDENDUM DATE OF NOTE: NOVEMBER 26, 2024@09:13:58 ENTRY DATE: NOVEMBER 26, 2024@09:13:59 AUTHOR: FARHAT BRIGGS COSIGNER: URGENCY: STATUS: COMPLETED would f/u with pt about his leg swelling, how long, does it improve with elevating legs above head level at night on pillows. Any breathing changes other than with exertion? Any chest pain, palpitations? 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 If worsening since last test, will need repeat and cardiac w/u. /es/ Farhat Briggs MD Primary Care Attending Signed: 11/26/2024 09:16 Receipt Acknowledged By: 11/27/2024 15:58 /es/ JAIME VICENTE, RN PC SANITATION INSPECTOR ====== --- Original Document --- 11/22/24 HT INTERVENTION NOTE: HT Admission Date: 04/10/2024 HT Diagnosis: HTN Provider-ordered vital sign goals: SBP<140 DBP <90 HT electronic capture of the blood pressure? Yes HT Emergency classification: L HT Category of Care: LOBO Last completion date: 10/15/24 [place] 3-month average response rate percentage: 97% HT Equipment Assigned: -COGNOSANTE(1VISION) [employer] TAB ACTIVE V2 -BPM 651 BLE WIDE RANGE Transmitting: Cellular modem Lives Alone: No 02: No PROBLEM: Blood pressure not well controlled. GOAL: Blood pressure will be less than 140/90. INTERVENTIONS: 1. will monitor home vitals daily over the next 6 months 2. Educate the patient on the signs and symptoms of hypo-and hypertension; 3. [place] will stay on a low-salt diet over the next 6 months. 4. [place] will continue to stay active and exercise as able. 5. HT RN to encourage daily use of HT equipment. 6. HT RN to encourage the [place] to call Home Telehealth for assistance if/when needed to coordinate care. 7. HT RN to submit semiannual/on-request summary reports to the primary care provider. [place] is actively enrolled in the Home Telehealth program. Review of data shows the following out of range responses: Patient Name: ROBBIE HUANG Disease(s): Hypertension Date Range: 11/08/2024 - 11/22/2024 Blood Pressure Readings: Date 04:00-12:00 12:00-18:00 18:00-04:00 11/22/24 140/74 81(10:52) 11/21/24 140/74 70(20:47) 11/20/24 136/73 69(10:43) 148/71 74(21:28) 11/18/24 143/73 75(15:58) 153/73 74(15:57) 11/17/24 137/69 63(14:51) 144/69 70(21:13) 11/16/24 144/71 67(21:00) 11/15/24 140/70 69(20:54) 11/14/24 136/73 70(12:05) 11/13/24 137/71 68(10:50) 11/12/24 123/65 66(10:22) 149/72 69(20:45) 11/11/24 133/69 66(11:58) 133/69 70(20:31) 11/10/24 136/71 65(13:20) 137/68 70(21:32) 11/09/24 124/60 66(20:57) 11/08/24 142/73 69(21:12) [place] Average Report Sys/[place] BP-HR Average 139/70 70 High 153/74 81 Low 123/60 63 ===== Assessment/Intervention( s)/Plan: [place] contacted HT RN regarding recent symptom change. He stated that he knows his breathing has declined since COVID. He has noticed though that in the past few weeks, he used to be able to walk up to 1 mile without issue. Now, the past week or two he cannot walk to the mailbox and back without feeling winded. He stated that the kidney dr noticed that his calves are more swollen. He has been trying to elevate them but without much change. He still remains with daily cough and mucus issues since COVID - no changes. He does also still endorse fatigue. He does check his weight daily and stated that he has gained about 5 pounds the past few months but endorses this is probably related to several birthdays, weddings, etc. where he has eaten what I should not have . He denies ever adding any salt or any sodium rich foods on frequent basis. He is just curious if the decline in how much he can exercise r/t SOA needs to be evaluated further, along with swelling in calves. He denies any redness or irritation with calves but stated that you can just see they are bigger than they should be . Informed will pass along to PCP. He appreciated assistance. ===== PROVIDER: - DAta update above - [place] with swelling in calves - was evaluated by neph dr? - with SOA walking to mailbox yet was walking up to 1mi per day a few weeks ago - Please alert any changes to HT RN, thanks! /jack/ GARCIA BRUNNER, MSN, RN-BC STAFF CONSULTANT Signed: 11/23/2024 16:15 Receipt Acknowledged By: 11/26/2024 09:16 /jack/ Farhat Briggs MD Primary Care Attending FARHAT BRIGGS [facility] November 22, 2024 12:37 PM CARE COORDINATION HOME TELEHEALTH FOLLOW-UP NOTE: LOCAL TITLE: HT INTERVENTION NOTE STANDARD TITLE: CARE COORDINATION HOME TELEHEALTH FOLLOW-UP NOTE DATE OF NOTE: NOVEMBER 22, 2024@12:37 ENTRY DATE: NOVEMBER 22, 2024@12:38 AUTHOR: KANNAN,GARCIA M EXP COSIGNER: URGENCY: STATUS: COMPLETED HT INTERVENTION NOTE Has ADDENDA HT Admission Date: 04/10/2024 HT Diagnosis: HTN [...] will be less than 140/90. INTERVENTIONS: 1. [place] will monitor home vitals daily over the next 6 months 2. Educate the patient on the signs and symptoms of hypo-and hypertension; 3. will stay on a low-salt diet over the next 6 months. 4. will continue to stay active and exercise [...] Name: ROBBIE HUANG Disease(s): Hypertension Date Range: 11/08/2024 - 11/22/2024 Blood Pressure Readings: Date 04:00-12:00 12:00-18:00 18:00-04:00 11/22/24 140/74 81(10:52) 11/21/24 140/74 70(20:47) 11/20/24 136/73 69(10:43) 148/71 74(21:28) 11/18/24 143/73 75(15:58) 153/73 74(15:57) 11/17/24 137/69 63(14:51) 144/69 70(21:13) 11/16/24 144/71 67(21:00) 11/15/24 140/70 69(20:54) 11/14/24 136/73 70(12:05) 11/13/24 137/71 68(10:50) 11/12/24 123/65 66(10:22) 149/72 69(20:45) 11/11/24 133/69 66(11:58) 133/69 70(20:31) 11/10/24 136/71 65(13:20) 137/68 70(21:32) 11/09/24 124/60 66(20:57) 11/08/24 142/73 69(21:12) [place] Average Report Sys/[place] BP-HR Average 139/70 70 High 153/74 81 Low 123/60 63 ===== Assessment/Intervention( s)/Plan: contacted HT RN regarding recent symptom change. He stated that he knows his breathing has declined since COV. He has noticed though that in the past few weeks, he used to be able to walk up to 1 mile without issue. Now, the past week or two he cannot walk to the mailbox and back without feeling winded. He stated that the kidney dr noticed that his calves are more swollen. He has been trying to elevate them but without much change. He still remains with daily cough and mucus issues since COV - no changes. He does also still endorse fatigue. He does check his weight daily and stated that he has gained about 5 pounds the past few months but endorses this is probably related to several birthdays, weddings, etc. where he has eaten what I should not have . He denies ever adding any salt or any sodium rich foods on frequent basis. He is just curious if the decline in how much he can exercise r/t SOA needs to be evaluated further, along with swelling in calves. He denies any redness or irritation with calves but stated that you can just see they are bigger than they should be . Informed will pass along to PCP. He appreciated assistance. ===== PROVIDER: - DAta update above - with swelling in calves - was evaluated by neph dr? - [place] with SOA walking to mailbox yet was walking up to 1mi per day a few weeks ago - Please alert any changes to HT RN, thanks! /jack/ GARCIA BRUNNER, MSN, RN-BC STAFF CONSULTANT Signed: 11/23/2024 16:15 Receipt Acknowledged By: 11/26/2024 09:16 /jack/ Farhat Briggs MD Primary Care Attending 11/26/2024 ADDENDUM STATUS: COMPLETED would f/u with pt about his leg swelling, how long, does it improve with elevating legs above head level at night on pillows. Any breathing changes other than with exertion? Any chest pain, palpitations? 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 If worsening since last test, will need repeat and cardiac w/u. /earline Briggs MD Primary Care Attending Signed: 11/26/2024 09:16 Receipt Acknowledged By: * AWAITING SIGNATURE * JAIME STEVE KATLYNN M [facility]
--- OUTSIDE RECORDS SUMMARY | 2024-11-27 09:26 | XMS_ITS | Encounter Summary ---
Author Name [facility] [facility] [place] Address [address] [place] [address] Care Team Providers Care Production Mechanic Name Role Phone JORDYN DALIA Primary Care [...] AUTOM OTIVE - RETI Jul 25, 2018 [id number] MALUTI PERKINS SPOUSE MEDICARE (WNR) MEDICARE (M) PART B Jan 22, 2007 PART B [id number] MALUJUSTYNA TINAJERO RGE PATIENT MEDICARE (WNR) MEDICARE (M) PART A Sep 22, 2005 PART A [id number] REINAJUSTYNA AKBAR PATIENT FOR LIFE TRICA RE FOR LIFE Jul 25, 2017 FOR LIFE [id number] ROBBIE HUANG JR PATIENT Selected Encounter This section includes the information on record at [place] for the Encounter. Date/Time Encounter Type Encounter Description Reason Provider Source November 27, 2024 01:26 PM PH1 ASSMT&MGMT NQHP 5-10 TELEPHONE BY STAFF ICD-10-CM I10 Essential (primary) hypertension KEEGAN BRUNNER E Encounter Template Text not used by [place] Assessments - Encounter Diagnoses This section includes the primary and secondary diagnoses documented for the Encounter. Date/Time Primary/Secondary Diagnosis Diagnosis Name Provider Source November 27, 2024 01:26 PM PRIMARY Essential (primary) hypertension [facility]INIVASAN BRUNNER [facility] Plan of Treatment: Future Appointments (+ 6 months) and Future Tests (+/- 45 days) The Plan of Treatment section includes future care activities for the patient from all [place] [facility]. This section includes future appointments and future orders which are active, pending or scheduled. Future Appointments This section includes appointments that were scheduled to occur 6 months from the date of the Encounter, up to a maximum of 20 appointments. The data comes from all [place] treatment [facility]. Appointment Date/Time Appointment Type Appointme nt Facility Name December 03, 2024 01:00 PM [facility] [place] [facility] December 06, 2024 12:15 PM [facility] December 14, 2024 08:00 AM [facility] - NONE [place] Jan 04, 2025 01:30 PM AMBULATORY - SURGERY [place] [facility] Jan 31, 2025 03:00 PM [facility] Feb 05, 2025 01:00 PM AM[facility]ATORY - MEDICINE [facility] Feb 05, 2025 02:00 PM AMBULATORY - MEDICINE [facility] Active, Pending, and Scheduled Orders This section includes a listing of several types of active, pending, and scheduled orders, including clinic medications orders, diagnostic test orders, procedure orders and consult orders; where the start date of the order is 45 days before the date of the Encounter or 45 days after the date of theEncounter. The data comes from all [place] treatment facilities. Test Date/Time Test Type Test Details Facility Name Jan 04, 2025 12:00 AM Imaging - Vascular Lab Order SEGMENTAL PRESSURES, LOWER EXT([place]) UNILAT [facility] Jan 04, 2025 12:00 AM Imaging - Vascular Lab Order VENOUS DUPLEX LOWER EXT BILAT [facility] Lab Results: +/- 30 days of the encounter This section includes the Chemistry and Hematology Lab Results on record with [place] for the patient. Radiology Reports and Pathology Reports are provided separately, in subsequent sections. Lab Results This section contains the Chemistry/Hematology Results that were resulted 30 days before or 30 daysafter the date of the Encounter. Date/Time Source Result Type Result - Unit Interpretation Reference Range Specimen Type Comment December 03, 2024 02:03 PM [facility] PROTEIN ELECTROPHORESIS URINE Specimen Type: URINE No comment entered. Ordering Provider: DALIA COBB Report Released Date/Time: December 03, 2024 01:24 PM Reporting Lab: [address] [address] Performing Lab: [address] [address] TOTAL PROTEIN 17.0 mg/dL Not Estab. .ALBUMIN ELEC 29.4 .ALPHA 1 ELEC 5.2 .ALPHA 2 ELEC 21.5 .BETA ELEC 19.7 .GAMMA ELEC 24.2 .M-SPIKE Not Observed Not Observed December 03, 2024 02:03 PM [facility] TOTAL PROTEIN URINE Specimen Type: URINE No comment entered. Ordering Provider: DALIA COBB Report Released Date/Time: December 03, 2024 01:24 PM Reporting Lab: [address] [address] Performing Lab: [address] [address] TOTAL PROTEIN 16 mg/dL H 0-14 December 03, 2024 02:03 PM [facility] CREATININE URINE Specimen Type: URINE No comment entered. Ordering Provider: DALIA COBB Report Released Date/Time: December 03, 2024 01:24 PM Reporting Lab: [address] [address] Performing Lab: [address] [address] CREATININE 63.6 mg/dL December 03, 2024 02:03 PM [facility] URINALYSIS URINE Specimen Type: URINE Comment: Microscopic not indicated Ordering Provider: DALIA COBB Report Released Date/Time: December 03, 2024 01:29 PM Reporting Lab: [address] [address] Performing Lab: [address] [address] URINE COLOR Light Yellow Colorless-Yello w APPEARANCE Clear Clear UROBILINOGEN Normal mg/dL Normal URINE BLOOD Negative Negative URINE BILIRUBIN Negative Negative URINE KETONES Negative mg/dL Negative URINE PROTEIN Negative mg/dL Negative-Tr rachell URINE PH 5.0 4.5-8.0 URINE NITRITE Negative Negative URINE LEUKOCYTE EST Negative Negative SPECIFIC GRAVITY 1.014 1.005-1.030 URINE GLUCOSE >1000 mg/dL H Negative December 03, 2024 01:45 PM [facility] ANTI-NUCLEAR Ab SERUM Specimen Type: SERUM Comment: Atypical speckled resembling DFS (Dense-Fine Speckled. The DFS pattern has a low prevalence in systemic autoimmune rheumatic diseases. The clinical association remains unclear. Due to its close resemblance to other patterns of clinical relevance, (i.e. Homogeneous, speckled, and mixed patterns) follow-up testing may be recommended. ANTI-NUCLEAR Ab reported incorrectly as Atypical Speckled by [[id number]]. Changed to 1:320 Atypical Speckled on December 06, 2024@12:59 by [[id number]]. Ordering Provider: DALIA COBB Report Released Date/Time: December 03, 2024 01:38 PM Reporting Lab: [address] [address] Performing Lab: [address] [address] ANTI-NUCLEAR Ab 1:320 Atypical Speckled <1:80 December 03, 2024 01:45 PM [facility] ROSALIE (SERUM) SERUM Specimen Type: SERUM Comment: BNP results less than or equal to 100 pg/ml are novelties sales representative of normal values in patients without CHF. BNP results greater than 100 pg/ml are considered abnormal and suggestive of CHF. Higher BNP concentrations in the first 72 hours after Acute Coronary Syndrome are associated with an increased risk of , myocardial infarction and CHF. Ordering Provider: DALIA COBB Report Released Date/Time: December 03, 2024 01:24 PM Reporting Lab: [address] [address] Performing Lab: [facility] [address] [facility] [address] .ALBUMIN ELEC 3.6 g/dL 2.9-4.4 .ALPHA 1 [...] INTERPRETATION Comment December 03, 2024 01:45 PM [facility] JORDAN SCREEN SERUM Specimen Type: SERUM No comment entered. Ordering Provider: DALIA COBB Report Released Date/Time: December 03, 2024 01:38 PM Reporting Lab: [address] [address] Performing Lab: [address] [address] JORDAN SCREEN Negative Negative December 03, 2024 01:45 PM [facility] BNP (Photocollect) PLASMA Specimen Type: PLASMA Comment: BNP results less than or equal to 100 pg/ml are novelties sales representative of normal values in patients without CHF. BNP results greater than 100 pg/ml are considered abnormal and suggestive of CHF. Higher BNP concentrations in the first 72 hours after Acute Coronary Syndrome are associated with an increased risk of , myocardial infarction and CHF. Ordering Provider: DALIA COBB Report Released Date/Time: December 03, 2024 01:24 PM Reporting Lab: [address] [address] Performing Lab: [address] [address] BNP (MCCALL) 225 pg/mL H 0-100 December 03, 2024 01:45 PM [facility] CK TOTAL PLASMA Specimen Type: PLASM [...] December 03, 2024 01:33 PM Reporting Lab: [facility] [address] [facility] [address] Performing Lab: [facility] [address] [facility] [address] CK TOTAL 76 U/L 30-200 December 03, 2024 01:45 PM [facility] 5 PLASMA Specimen Type: PLASM A [...] December 03, 2024 01:24 PM Reporting Lab: [address] [address] Performing Lab: [place] [phone] CREATININE 2.05 mg/dL H 0.72-1.25 UREA NITROGEN [...] eGFR (CKD-EPI) December 03, 2024 01:45 PM [facility] CBC/PLT BLOOD Specimen Type: BLOOD No comment entered. Ordering Provider: DALIA COBB Report Released Date/Time: December 03, 2024 01:33 PM Reporting Lab: [address] [address] Performing Lab: [place] [phone] WBC 5.6 10*3/uL 5.0-10.0 RBC 4.24 10*6/uL L 4.6-6.2 HGB 12.8 g/dL L 14.0-18.0 HCT 39.4 L 42.0-52.0 MCV 92.9 fL 80.0-94.0 MCH 30.2 pg 27.0-31.0 MCHC 32.5 g/dL 32.0-36.0 PLT 248 10*3/uL 150-450 MPV 10.2 fL 9.0-13.1 RDW 14.2 11.0-16.0 NRBC 0.0 0.0-0.0 December 03, 2024 01:45 PM [facility] AUTOMATED DIFF BLOOD Specimen Type: BLOOD No comment entered. Ordering Provider: DALIA COBB Report Released Date/Time: December 03, 2024 01:33 PM Reporting Lab: [facility] [address] [facility] [address] Performing Lab: [address] [address] A-LYMPH % 22.1 L 24.0-44.0 A-MONO % [...] and tobacco- related health factors from the [place] facility where the Encounter took place. Current Smoking Status This section includes the most current smoking, or tobacco-related health factor, from the [place] facility where the Encounter took place. Date/Time Current Smoking Status Comment Kelechi dial May 25, 2023 01:30 PM VA-TOBACCO FORMER USER [facility] Tobacco Use History This section includes a history of the smoking, or tobacco-related health factors, that were collected on or before the date of the Encounter. The data comes from the [place] facility where the Encounter took place. Date/Time Smoking Status/Tobacco Use Comment Ricardo acility May 25, 2023 01:30 PM VA-TOBACCO QUIT 15 YRS OR MORE [facility] Jun 18, 2022 01:30 PM VA-TOBACCO FORMER USER [facility] Jun 18, 2022 01:30 PM VA-TOBACCO QUIT 15 YRS OR MORE [facility] Jun 29, 2021 03:00 PM VA-TOBACCO FORMER USER [facility] Jun 29, 2021 03:00 PM VA-TOBACCO QUIT 15 YRS OR MORE [facility] Jul 28, 2020 09:30 AM VA-TOBACCO FORMER USER [facility] Jul 28, 2020 09:30 AM VA-TOBACCO QUIT 15 YRS OR MORE [facility] Jul 09, 2019 03:25 PM VA-TOBACCO NEVER USED [facility] Aug 24, 2018 02:06 PM VA-TOBACCO FORMER USER [facility] Aug 24, 2018 02:06 PM VA-TOBACCO QUIT 15 YRS OR MORE [facility] Sep 22, 2017 07:57 AM V9 LIFETIME NON-USER OF TOBACCO [facility] December 15, 2015 08:07 AM V9 LIFETIME NON-USER OF TOBACCO [facility] Jun 14, 2014 07:48 AM V9 LIFETIME NON-USER OF TOBACCO [facility] Jun 07, 2013 10:08 AM V9 LIFETIME NON-USER OF TOBACCO [facility] May 29, 2012 10:26 AM V9 LIFETIME NON-USER OF TOBACCO [facility] Nov 22, 2011 02:23 PM V9 LIFETIME NON-USER OF TOBACCO [facility] Oct 23, 2010 09:22 AM V9 QUIT TOBACCO >7 YEARS AGO [facility] May 30, 2007 03:08 PM V9 LIFETIME NON-USER OF TOBACCO [facility] Radiology Reports: +/- 30 days of [...] the Encounter. The data comes from all [facility]. Date/Time Radiology Report Provider Source December 14, 2024 07:49 AM CARD. STRESS TEST W/TREADMILL/...: ROBBIE HUANG [id number] 1940 M Exm Date: DECEMBER 14, 2024@07:49 Req Phys: DALIA COBB Pat Loc: VETO PACT WHITNEY 16-1 (Req'g Loc) Img Loc: NUCLEAR MEDICINE Service: [place] [address] (Case [id number] COMPLETE)CARD. STRESS TEST W/TREADMILL/...(NM Detailed) CPT:74240 Reason for Study: SEE CLINICAL HISTORY Clinical [...] 14, 2024 Date Verified: DECEMBER 14, 2024 Child Care Attendant School E-Sig: Report: STUDY: GXT with vasodilator REPORT: [...] Staff: CHAO ORR APRN, Cardiology Verified by project controls specialist for CHAO ORR /CHAO GIRON-D [facility] December 14, 2024 07:49 AM [id number] REGADENOSON 0.1MG X4 (LEXISCAN): REINAROBBIE NINO [id number] -1940 M Exm Date: DECEMBER 14, 2024@07:49 Req Phys: DALIA COBB Loc: [facility] PACT [facility]ITNEY 16-1 (Req'g Loc) Img Loc: NUCLEAR MEDICINE Service: [place] [address] (Case [id number] COMPLETE)[id number] REGADENOSON 0.1MG X4 (STEPHON(NM Detailed) CPT:J2785 Reason for Study: SEE CLINICAL HISTORY Clinical History: Cardiology approval by: [facility] SERVICE CONNECTED? No Active Outpatient Medications (including [...] 14, 2024 Date Verified: DECEMBER 14, 2024 Child Care Attendant [employer] E-Sig: Report: STUDY: GXT with vasodilator REPORT: [...] Staff: CHAO ORR APRN, Cardiology Verified by project controls specialist for CHAO ORR /CHAO GIRON-[place] [facility] December 14, 2024 07:49 AM CARD. STRESS TEST W/TREADMILL/...: ROBBIE HUANG [id number] -1940 M Exm Date: DECEMBER 14, 2024@07:49 Req Phys: DALIA COBB [facility] Loc[facility] Img Loc: NUCLEAR MEDICINE Service: [place] [address] (Case [id number] COMPLETE)CARD. STRESS TEST W/TREADMILL/...(NM Detailed) CPT:70972 Proc Modifiers : GXT Reason for Study: SEE CLINICAL HISTORY Clinical History: Cardiology approval by: [facility] SERVICE CONNECTED? No Active Outpatient Medications (including [...] 14, 2024 Date Verified: DECEMBER 14, 2024 Child Care Attendant School E-Sig: Report: [place], [place] STUDY: Regadenoson (Lexiscan) SPECT Tc-99m myoview [...] performed with tomographic and three-dimensional reconstructions with QuantiaMD NM/CT 640 system. Exercise: Patient exercised for [...] data sets in addition to the conventional fvr-qoldulbypnc-lkuxilczj images. Both filtered back projection and iterative [...] ventricular cavity. 4. SPECT images: Attenuation-corrected and vnx-hwzccgztjjt-odkyijkmt SPECT images were evaluated. SPECT images demonstrate [...] JEB SANTOS MD, CARDIOLOGY ATTENDING Verified by project controls specialist for JEB SANTOS MD /JEB MANCILLA-D [facility] December 14, 2024 07:49 AM 28096(D) MYOCARDIA L SPECT(MULTIPLE): ROBBIE HUANG [id number] -1940 M Ex Date: DECEMBER 14, 2024@07:49 Req Phys: DALIA COBB Pat Loc: [facility] PACT [facility]ITNEY 16-1 (Req'g Loc) Img Loc: NUCLEAR MEDICINE Service: [place] [address] (Case [id number] COMPLETE)72435(D) MYOCARDIAL SPECT(MULTIPL(NM Detailed) CPT:89048 Proc Modifiers : Lexiscan (Regadenoson) CPT Modifiers [...] YENNY GAMBOA Clinical History: Cardiology approval by: [facility] CONNECTED? No Active Outpatient Medications (including Supplies): [...] 14, 2024 Date Verified: DECEMBER 14, 2024 Child Care Attendant School E-Sig: Report: [place] STUDY: Regadenoson (Lexiscan) SPECT Tc-99m myoview [...] performed with tomographic and three-dimensional reconstructions with Ximalayaa NM/CT 640 system. Exercise: Patient exercised for [...] data sets in addition to the conventional zfx-vfffszsntzd-nxjmkpskn images. Both filtered back projection and iterative [...] ventricular cavity. 4. SPECT images: Attenuation-corrected and joh-afdbdzjxlqf-prdqwdkuh SPECT images were evaluated. SPECT images demonstrate [...] JEB SANTOS MD, CARDIOLOGY ATTENDING Verified by project controls specialist for JEB SANTOS MD /JEB MANCILLA-CDD [facility] December 14, 2024 07:49 AM MYOVIEW(1): ROBBIE HUANG MICA [id number] -1940 M Exm Date: DECEMBER 14, 2024@07:49 Req Phys: DALIA COBB [facility] (Req[facility]g Loc) Img Loc: NUCLEAR MEDICINE Service: Unknown [place] [id number] (Case [id number] COMPLETE)MYOVIEW(1) (NM Detailed) CPT:A9502 Reason for Study: [...] 14, 2024 Date Verified: DECEMBER 14, 2024 Child Care Attendant School E-Sig: Report: [place] STUDY: Regadenoson (Lexiscan) SPECT Tc-99m myoview [...] performed with tomographic and three-dimensional reconstructions with QuantiaMD NM/CT 640 system. Exercise: Patient exercised for [...] data sets in addition to the conventional rnz-swaupgwmora-ghkwywgni images. Both filtered back projection and iterative [...] ventricular cavity. 4. SPECT images: Attenuation-corrected and skv-exipfjqfiyi-talglclwv SPECT images were evaluated. SPECT images demonstrate [...] JEB SANTOS MD, CARDIOLOGY ATTENDING Verified by project controls specialist for JEB SANTOS MD /JEB [facility] December 14, 2024 07:49 AM [id number] REGADENOSON 0.1MG X1 (LEXISCAN): ROBBIE HUANG [id number] -1940 M Ex Date: DECEMBER 14, 2024@07:49 Req Phys: DALIA COBB Loc: VETO PACT WHITNEY 16-1 (Req'g Loc) Img Loc: NUCLEAR MEDICINE Service: [place] [address] (Case [id number] COMPLETE)[id number] REGADENOSON 0.1MG X1 (STEPHON(NM Detailed) CPT:J2785 [...] 14, 2024 Date Verified: DECEMBER 14, 2024 Child Care Attendant School E-Sig: Report: [facility], [place], [place] STUDY: Regadenoson (Lexiscan) SPECT Tc-99m myoview [...] performed with tomographic and three-dimensional reconstructions with QuantiaMD NM/CT 640 system. Exercise: Patient exercised for [...] data sets in addition to the conventional tjg-rmbjspdfuoq-dulrrpuey images. Both filtered back projection and iterative [...] ventricular cavity. 4. SPECT images: Attenuation-corrected and wqj-hdkaextgahx-rqdrbrvpb SPECT images were evaluated. SPECT images demonstrate [...] JEB SANTOS MD, CARDIOLOGY ATTENDING Verified by project controls specialist for JEB SANTOS MD /JEB MANCILLA-CDD [facility] December 14, 2024 07:49 AM MYOVIEW(2): ROBBIE HUANG [id number] -1940 M Exm Date: DECEMBER 14, 2024@07:49 Req Phys: DALIA COBB Pat Loc: [facility]ETO PACT WHITNEY 16-1 (Req'g Loc) Img Loc: NUCLEAR MEDICINE Service: [place] [address] (Case [id number] COMPLETE)MYOVIEW(2) (NM Detailed) CPT:A9502 Reason for Study: [...] 14, 2024 Date Verified: DECEMBER 14, 2024 Child Care Attendant School E-Sig: Report: [place] STUDY: Regadenoson (Lexiscan) SPECT Tc-99m myoview [...] performed with tomographic and three-dimensional reconstructions with VaultLogix/CT 640 system. Exercise: Patient exercised for 6 [...] data sets in addition to the conventional vyx-txsmzbcqimw-dkforlhlt images. Both filtered back projection and iterative [...] ventricular cavity. 4. SPECT images: Attenuation-corrected and gkd-vqbbqycarau-lbkwqmthg SPECT images were evaluated. SPECT images demonstrate [...] JEB SANTOS MD, CARDIOLOGY ATTENDING Verified by project controls specialist for JEB SANTOS MD /JEB MANCILLA-D [facility] December 14, 2024 07:49 AM TC-99M X1 FROM NON -HEU SOURCE: ROBBIE HUANG [id number] -1940 M Exm Date: DECEMBER 14, 2024@07:49 Req Phys: DALIA COBB Loc: VETO PACT WHITNEY 16-1 (Req'g Loc) Img Loc: NUCLEAR MEDICINE Service: [place] [address] (Case [id number] COMPLETE)TC-99M X1 FROM NON-HEU SOURCE (NM Detailed) [...] 14, 2024 Date Verified: DECEMBER 14, 2024 Child Care Attendant School E-Sig: Report: [facility], [place], [place] STUDY: Regadenoson (Lexiscan) SPECT Tc-99m myoview [...] performed with tomographic and three-dimensional reconstructions with QuantiaMD NM/CT 640 system. Exercise: Patient exercised for [...] data sets in addition to the conventional ztu-dkcchvisrzd-bmmlaqfuu images. Both filtered back projection and iterative [...] ventricular cavity. 4. SPECT images: Attenuation-corrected and gsw-qhxyobwdufl-upixlljca SPECT images were evaluated. SPECT images demonstrate [...] JEB SANTOS MD, CARDIOLOGY ATTENDING Verified by project controls specialist for JEB SANTOS MD /JEB MANCILLA-CDD [facility] December 14, 2024 07:49 AM [id number] REGADENOSON 0.1MG X2 (LEXISCAN): MALUTANVIROBBIE [id number] -1940 M Ex Date: DECEMBER 14, 2024@07:49 Req Phys: DALIA COBB Loc: VETO PACT WHITNEY 16-1 (Req'g Loc) [facility] Loc: NUCLEAR MEDICINE Service: [place] [address] (Case [id number] COMPLETE)[id number] REGADENOSON 0.1MG X2 (STEPHON(NM Detailed) CPT:J2785 Reason for Study: SEE CLINICAL HISTORY Clinical History: Cardiology approval by: [facility] SERVICE CONNECTED? No Active Outpatient Medications (including [...] 14, 2024 Date Verified: DECEMBER 14, 2024 Child Care Attendant School E-Sig: Report: [place] STUDY: Regadenoson (Lexiscan) SPECT Tc-99m myoview [...] performed with tomographic and three-dimensional reconstructions with QuantiaMD NM/CT 640 system. Exercise: Patient exercised for [...] data sets in addition to the conventional myv-edvuldxuzog-cmsoalrfi images. Both filtered back projection and iterative [...] ventricular cavity. 4. SPECT images: Attenuation-corrected and xth-bulaohfghcx-sefqdnfhz SPECT images were evaluated. SPECT images demonstrate [...] JEB SANTOS MD, CARDIOLOGY ATTENDING Verified by project controls specialist for JEB SANTOS MD /JEB MANCILLA-CDD [facility] December 14, 2024 07:49 AM [id number] REGADENOSON 0.1MG X3 (LEXISCAN): ROBBIE HUANG [id number] -1940 M Exm Date: DECEMBER 14, 2024@07:49 Req Phys: DALIA COBB Pat Loc: VETO PACT WHITNEY 16-1 (Req'g Loc) Img Loc: NUCLEAR MEDICINE Service: [place] [address] (Case [id number] COMPLETE)[id number] REGADENOSON 0.1MG X3 (STEPHON(NM Detailed) CPT:J2785 [...] 14, 2024 Date Verified: DECEMBER 14, 2024 Child Care Attendant School E-Sig: Report: [place] STUDY: Regadenoson (Lexiscan) SPECT Tc-99m myoview [...] performed with tomographic and three-dimensional reconstructions with VaultLogix/CT 640 system. Exercise: Patient exercised for 6 [...] data sets in addition to the conventional fhx-ugvidgjexqy-wcwglffjk images. Both filtered back projection and iterative [...] ventricular cavity. 4. SPECT images: Attenuation-corrected and vli-yekohrasqjq-qijihdpha SPECT images were evaluated. SPECT images demonstrate [...] JEB SANTOS MD, CARDIOLOGY ATTENDING Verified by project controls specialist for JEB SANTOS MD /JEB MANCILLA-CDD [facility] December 14, 2024 07:49 AM TC-99M X2 FROM NON -HEU SOURCE: ROBBIE HUANG [id number] -1940 M Exm Date: DECEMBER 14, 2024@07:49 Req Phys: DALIA OCBB Loc: [facility] 16-1 (Req'g Loc) [facility] Loc: NUCLEAR MEDICINE Service: [place] [address] (Case [id number] COMPLETE)TC-99M X2 FROM NON-HEU SOURCE (NM Detailed) [...] 14, 2024 Date Verified: DECEMBER 14, 2024 Child Care Attendant School E-Sig: Report: [facility], [place] STUDY: Regadenoson (Lexiscan) SPECT Tc-99m myoview [...] performed with tomographic and three-dimensional reconstructions with QuantiaMD NM/CT 640 system. Exercise: Patient exercised for [...] data sets in addition to the conventional kzv-usbjydsdosm-xompuomjt images. Both filtered back projection and iterative [...] ventricular cavity. 4. SPECT images: Attenuation-corrected and zjw-vokhzxnqzrg-vmtwxyyyz SPECT images were evaluated. SPECT images demonstrate [...] JEB SANTOS MD, CARDIOLOGY ATTENDING Verified by project controls specialist for JEB SANTOS MD /JEB MANCILLA-ISMAEL [facility] Encounter Notes: All associated encounter notes This section contains the clinical notes associated to the Encounter. Date/Time Encounter Note(s) Provider Source November 27, 2024 01:26 PM CARE COORDINATION HOME TELEHEALTH NOTE: LOCAL TITLE: HT NOTE STANDARD TITLE: CARE COORDINATION HOME TELEHEALTH NOTE DATE OF NOTE: NOVEMBER 27, 2024@13:26 ENTRY DATE: NOVEMBER 27, 2024@13:26:19 AUTHOR: GARCIA BRUNNER EXP COSIGNER: URGENCY: STATUS: COMPLETED called and left VM requesting response regarding leg swelling. He is still concerned and now having neuropathy type of pains shooting in his feet and making legs shake. ATtempted to return call. He is at the dentist and will call me back when he leaves there. /jack/ GARCIA BRUNNER, MSN, RN-[facility] RN Signed: 11/27/2024 13:28 GARCIA BRUNNER [facility]
--- OUTSIDE RECORDS SUMMARY | 2024-11-27 11:45 | XMS_ITS | Encounter Summary ---
Author Name [facility] [place] [facility] [place] Address [address] [place] [address] Care Team Providers Care Instructional Systems Specialist Name Role Phone JORDYN FARHAT Primary Care [...] AUTOM OTIVE - RETI Jul 25, 2018 [id number] MALUTI PERKINS SPOUSE MEDICARE (WNR) MEDICARE (M) PART B Jan 22, 2007 PART B [id number] MALUJUSTYNA TINAJERO RGE PATIENT MEDICARE (WNR) MEDICARE (M) PART A Sep 22, 2005 PART A [id number] REINAJUSTYNA AKBAR PATIENT FOR LIFE TRICA RE FOR LIFE Jul 25, 2017 FOR LIFE [id number] ROBBIE HUANG JR PATIENT Selected Encounter This section includes the information on record at [place] for the Encounter. Date/Time Encounter Type Encounter Description Reason Provider Source November 27, 2024 03:45 PM PH1 ASSMT&MGMT NQHP 5-10 TELEPHONE PRIMARY CARE ICD-10-CM R06.00 Dyspnea, unspecified JAIME STEVE Kal Encounter Template Text not used by [place] Assessments - Encounter Diagnoses This section includes the primary and secondary diagnoses documented for the Encounter. Date/Time Primary/Secondary Diagnosis Diagnosis Name Provider Source November 27, 2024 03:45 PM PRIMARY Dyspnea, unspecified JAIME STEVE [facility] Plan of Treatment: Future Appointments (+ 6 months) and Future Tests (+/- 45 days) The Plan of Treatment section includes future care activities for the patient from all [place] [facility] This section includes future appointments and future orders which are active, pending or scheduled. Future Appointments This section includes appointments that were scheduled to occur 6 months from the date of the Encounter, up to a maximum of 20 appointments. The data comes from all [place] treatment [facility]. Appointment Date/Time Appointment Type Appointme nt Facility Name December 03, 2024 01:00 PM AMBULATORY - NONE [place] [facility] December 06, 2024 12:15 PM [facility] December 14, 2024 08:00 AM AMB[facility] - NONE [place] Jan 04, 2025 01:30 PM AMBULATORY - SURGERY [place] [facility] Jan 31, 2025 03:00 PM [facility] Feb 05, 2025 01:00 PM [facility] - [facility]INE [facility] Feb 05, 2025 02:00 PM AMBULATORY - MEDICINE [facility] Active, Pending, and Scheduled Orders This section includes a listing of several types of active, pending, and scheduled orders, including clinic medications orders, diagnostic test orders, procedure orders and consult orders; where the start date of the order is 45 days before the date of the Encounter or 45 days after the date of theEncounter. The data comes from all [place] treatment facilities. Test Date/Time Test Type Test Details Facility Name Jan 04, 2025 12:00 AM Imaging - Vascular Lab Order SEGMENTAL PRESSURES, LOWER EXT([place]) UNILAT [facility] Jan 04, 2025 12:00 AM Imaging - Vascular Lab Order VENOUS DUPLEX LOWER EXT BILAT [facility] Lab Results: +/- 30 days of the encounter This section includes the Chemistry and Hematology Lab Results on record with [place] for the patient. Radiology Reports and Pathology Reports are provided separately, in subsequent sections. Lab Results This section contains the Chemistry/Hematology Results that were resulted 30 days before or 30 daysafter the date of the Encounter. Date/Time Source Result Type Result - Unit Interpretation Reference Range Specimen Type Comment December 03, 2024 02:03 PM [facility] PROTEIN ELECTROPHORESIS URINE Specimen Type: URINE No comment entered. Ordering Provider: FARHAT BRIGGS Report Released Date/Time: December 03, 2024 01:24 PM Reporting Lab: [address] [address] Performing Lab: [address] [address] TOTAL PROTEIN 17.0 mg/dL Not Estab. .ALBUMIN ELEC 29.4 .ALPHA 1 ELEC 5.2 .ALPHA 2 ELEC 21.5 .BETA ELEC 19.7 .GAMMA ELEC 24.2 .M-SPIKE Not Observed Not Observed December 03, 2024 02:03 PM [facility] TOTAL PROTEIN URINE Specimen Type: URINE No comment entered. Ordering Provider: FARHAT BRIGGS Report Released Date/Time: December 03, 2024 01:24 PM Reporting Lab: [address] [address] Performing Lab: [address] [address] TOTAL PROTEIN 16 mg/dL H 0-14 December 03, 2024 02:03 PM [facility] CREATININE URINE Specimen Type: URINE No comment entered. Ordering Provider: FARHAT BRIGGS Report Released Date/Time: December 03, 2024 01:24 PM Reporting Lab: [address] [address] Performing Lab: [address] [address] CREATININE 63.6 mg/dL December 03, 2024 02:03 PM [facility] URINALYSIS URINE Specimen Type: URINE Comment: Microscopic not indicated Ordering Provider: FARHAT BRIGGS Report Released Date/Time: December 03, 2024 01:29 PM Reporting Lab: [address] [address] Performing Lab: [address] [address] URINE COLOR Light Yellow Colorless-Yello w APPEARANCE Clear Clear UROBILINOGEN Normal mg/dL Normal URINE BLOOD Negative Negative URINE BILIRUBIN Negative Negative URINE KETONES Negative mg/dL Negative URINE PROTEIN Negative mg/dL Negative-Tr rachell URINE PH 5.0 4.5-8.0 URINE NITRITE Negative Negative URINE LEUKOCYTE EST Negative Negative SPECIFIC GRAVITY 1.014 1.005-1.030 URINE GLUCOSE >1000 mg/dL H Negative December 03, 2024 01:45 PM [facility] ANTI-NUCLEAR Ab SERUM Specimen Type: SERUM Comment: Atypical speckled resembling DFS (Dense-Fine Speckled. The DFS pattern has a low prevalence in systemic autoimmune rheumatic diseases. The clinical association remains unclear. Due to its close resemblance to other patterns of clinical relevance, (i.e. Homogeneous, speckled, and mixed patterns) follow-up testing may be recommended. ANTI-NUCLEAR Ab reported incorrectly as Atypical Speckled by [[id number]]. Changed to 1:320 Atypical Speckled on December 06, 2024@12:59 by [[id number]]. Ordering Provider: FARHAT BRIGGS Report Released Date/Time: December 03, 2024 01:38 PM Reporting Lab: [address] [address] Performing Lab: [address] [address] ANTI-NUCLEAR Ab 1:320 Atypical Speckled <1:80 December 03, 2024 01:45 PM [facility] ROSALIE (SERUM) SERUM Specimen Type: SERUM Comment: BNP results less than or equal to 100 pg/ml are key account representative of normal values in patients without CHF. BNP results greater than 100 pg/ml are considered abnormal and suggestive of CHF. Higher BNP concentrations in the first 72 hours after Acute Coronary Syndrome are associated with an increased risk of , myocardial infarction and CHF. Ordering Provider: FARHAT BRIGGS Report Released Date/Time: December 03, 2024 01:24 PM Reporting Lab: [address] [address] Performing Lab: [facility] [address] [address] .ALBUMIN ELEC 3.6 g/dL 2.9-4.4 .ALPHA 1 [...] INTERPRETATION Comment December 03, 2024 01:45 PM [facility] JORDAN SCREEN SERUM Specimen Type: SERUM No comment entered. Ordering Provider: FARHAT BRIGGS Report Released Date/Time: December 03, 2024 01:38 PM Reporting Lab: [address] [address] Performing Lab: [address] [address] JORDAN SCREEN Negative Negative December 03, 2024 01:45 PM [facility] BNP ([employer]) PLASMA Specimen Type: PLASMA Comment: BNP results less than or equal to 100 pg/ml are key account representative of normal values in patients without CHF. BNP results greater than 100 pg/ml are considered abnormal and suggestive of CHF. Higher BNP concentrations in the first 72 hours after Acute Coronary Syndrome are associated with an increased risk of , myocardial infarction and CHF. Ordering Provider: FARHAT BRIGGS Report Released Date/Time: December 03, 2024 01:24 PM Reporting Lab: [address] [address] Performing Lab: [address] [address] BNP (MCCALL) 225 pg/mL H 0-100 December 03, 2024 01:45 PM [facility] CK TOTAL PLASMA Specimen Type: PLASM [...] December 03, 2024 01:33 PM Reporting Lab: [facility] [address] [address] Performing Lab: [facility] [address] [address] CK TOTAL 76 U/L 30-200 December 03, 2024 01:45 PM [facility] 5 PLASMA Specimen Type: [...] December 03, 2024 01:24 PM Reporting Lab: [address] [address] Performing Lab: [place] [id number] CREATININE 2.05 mg/dL H 0.72-1.25 UREA NITROGEN [...] eGFR (CKD-EPI) December 03, 2024 01:45 PM [facility] CBC/PLT BLOOD Specimen Type: BLOOD No comment entered. Ordering Provider: FARHAT BRIGGS Report Released Date/Time: December 03, 2024 01:33 PM Reporting Lab: [address] [address] Performing Lab: [place] [id number] WBC 5.6 10*3/uL 5.0-10.0 RBC 4.24 10*6/uL L 4.6-6.2 HGB 12.8 g/dL L 14.0-18.0 HCT 39.4 L 42.0-52.0 MCV 92.9 fL 80.0-94.0 MCH 30.2 pg 27.0-31.0 MCHC 32.5 g/dL 32.0-36.0 PLT 248 10*3/uL 150-450 MPV 10.2 fL 9.0-13.1 RDW 14.2 11.0-16.0 NRBC 0.0 0.0-0.0 December 03, 2024 01:45 PM [facility] AUTOMATED DIFF BLOOD Specimen Type: BLOOD No comment entered. Ordering Provider: FARHAT BRIGGS Report Released Date/Time: December 03, 2024 01:33 PM Reporting Lab: [facility] [address] [facility] [address] Performing Lab: [address] [address] A-LYMPH % 22.1 L 24.0-44.0 A-MONO % [...] and tobacco- related health factors from the [place] facility where the Encounter took place. Current Smoking Status This section includes the most current smoking, or tobacco-related health factor, from the [place] facility where the Encounter took place. Date/Time Current Smoking Status Comment Kelechi dial May 25, 2023 01:30 PM VA-TOBACCO FORMER USER [facility] Tobacco Use History This section includes a history of the smoking, or tobacco-related health factors, that were collected on or before the date of the Encounter. The data comes from the [place] facility where the Encounter took place. Date/Time Smoking Status/Tobacco Use Comment Ricardo acility May 25, 2023 01:30 PM VA-TOBACCO QUIT 15 YRS OR MORE [facility] Jun 18, 2022 01:30 PM VA-TOBACCO FORMER USER [facility] Jun 18, 2022 01:30 PM VA-TOBACCO QUIT 15 YRS OR MORE [facility] Jun 29, 2021 03:00 PM VA-TOBACCO FORMER USER [facility] Jun 29, 2021 03:00 PM VA-TOBACCO QUIT 15 YRS OR MORE [facility] Jul 28, 2020 09:30 AM VA-TOBACCO FORMER USER [facility] Jul 28, 2020 09:30 AM VA-TOBACCO QUIT 15 YRS OR MORE [facility] Jul 09, 2019 03:25 PM VA-TOBACCO NEVER USED [facility] Aug 24, 2018 02:06 PM VA-TOBACCO FORMER USER [facility] Aug 24, 2018 02:06 PM VA-TOBACCO QUIT 15 YRS OR MORE [facility] Sep 22, 2017 07:57 AM V9 LIFETIME NON-USER OF TOBACCO [facility] December 15, 2015 08:07 AM V9 LIFETIME NON-USER OF TOBACCO [facility] Jun 14, 2014 07:48 AM V9 LIFETIME NON-USER OF TOBACCO [facility] Jun 07, 2013 10:08 AM V9 LIFETIME NON-USER OF TOBACCO [facility] May 29, 2012 10:26 AM V9 LIFETIME NON-USER OF TOBACCO [facility] Nov 22, 2011 02:23 PM V9 LIFETIME NON-USER OF TOBACCO [facility] Oct 23, 2010 09:22 AM V9 QUIT TOBACCO >7 YEARS AGO [facility] May 30, 2007 03:08 PM V9 LIFETIME NON-USER OF TOBACCO [facility] Radiology Reports: +/- 30 days of [...] the Encounter. The data comes from all [facility]. Date/Time Radiology Report Provider Source December 14, 2024 07:49 AM CARD. STRESS TEST W/TREADMILL/...: ROBBIE HUANG [id number] 1940 M Exm Date: DECEMBER 14, 2024@07:49 Req Phys: FARHAT BRIGGS Pat Loc: VETO PACT WHITNEY 16-1 (Req'g Loc) Img Loc: NUCLEAR MEDICINE Service: [place] [address] (Case [id number] COMPLETE)CARD. STRESS TEST W/TREADMILL/...(NM Detailed) CPT:56428 Reason for Study: SEE CLINICAL HISTORY Clinical [...] 14, 2024 Date Verified: DECEMBER 14, 2024 Motorized Squad Commanding Officer E-Sig: Report: STUDY: GXT with vasodilator [...] Staff: CHAO ORR APRN, Cardiology Verified by furniture manager for CHAO ORR /CHAO GIRON-D [facility] December 14, 2024 07:49 AM [id number] REGADENOSON 0.1MG X4 (LEXISCAN): REINAROBBIE NINO [id number] -1940 M Exm Date: DECEMBER 14, 2024@07:49 Req Phys: FARHAT BRIGGS Loc: [facility]ETO PACT WHITNEY 16-1 (Req'g Loc) Img Loc: NUCLEAR MEDICINE Service: [place] [address] (Case [id number] COMPLETE)[id number] REGADENOSON 0.1MG X4 (STEPHON(NM Detailed) CPT:J2785 Reason for Study: SEE CLINICAL HISTORY Clinical History: Cardiology approval by: [facility] SERVICE CONNECTED? No Active Outpatient Medications [...] 14, 2024 Date Verified: DECEMBER 14, 2024 Motorized Squad Commanding Officer E-Sig: Report: STUDY: GXT with vasodilator [...] Staff: CHAO ORR APRN, Cardiology Verified by furniture manager for CHAO ORR /CHAO GIRON-CAMILAD [facility] December 14, 2024 07:49 AM CARD. STRESS TEST W/TREADMILL/...: ROBBIE HUANG [id number] -1940 M Exm Date: DECEMBER 14, 2024@07:49 Req Phys: FARHAT BRIGGS [facility] (Req[facility] Loc) Img Loc: NUCLEAR MEDICINE Service: [place] [address] (Case [id number] COMPLETE)CARD. STRESS TEST W/TREADMILL/...(NM Detailed) CPT:37198 Proc Modifiers : GXT Reason for Study: SEE CLINICAL HISTORY Clinical History: Cardiology approval by: [facility] SERVICE CONNECTED? No Active Outpatient Medications [...] 14, 2024 Date Verified: DECEMBER 14, 2024 Motorized Squad Commanding Officer E-Sig: Report: [place], [place] STUDY: Regadenoson (Lexiscan) SPECT Tc-99m myoview [...] performed with tomographic and three-dimensional reconstructions with [employer] NM/CT 640 system. Exercise: Patient exercised for [...] data sets in addition to the conventional ubi-rsonjharkrt-uibeoaova images. Both filtered back projection and iterative [...] ventricular cavity. 4. SPECT images: Attenuation-corrected and don-umetrsxfywk-dxjxfdtip SPECT images were evaluated. SPECT images demonstrate [...] calculated post-stress LVEF is 29%. Participating Fellow: Jua nR Conn M.D. COMMUNICATION: Per this written report. ATTESTATION: I have personally reviewed the electrocardiograms and SPECT images with the participating physicians and agree with the report. Primary Diagnostic Code: SIGNIFICANT ABNORMALITY, ATTN NEEDED Primary Interpreting Staff: JEB SANTOS MD, CARDIOLOGY ATTENDING Verified by furniture manager for JEB SANTOS MD /JEB MANCILLA-D [facility] December 14, 2024 07:49 AM 50657(D) MYOCARDIA L SPECT(MULTIPLE): ROBBIE HUANG [id number] -1940 M Ex Date: DECEMBER 14, 2024@07:49 Req Phys: FARHAT BRIGGS Pat Loc: VETO PACT WHITNEY 16-1 (Req'g Loc) Img Loc: NUCLEAR MEDICINE Service: [place] [address] (Case [id number] COMPLETE)52201(D) MYOCARDIAL SPECT(MULTIPL(NM Detailed) CPT:93212 Proc Modifiers : Lexiscan (Regadenoson) CPT Modifiers [...] YENNY GAMBOA Clinical History: Cardiology approval by: [facility] CONNECTED? No Active Outpatient Medications (including Supplies): [...] 14, 2024 Date Verified: DECEMBER 14, 2024 Motorized Squad Commanding Officer E-Sig: Report: [place], [place] STUDY: Regadenoson (Lexiscan) SPECT Tc-99m myoview [...] performed with tomographic and three-dimensional reconstructions with [employer] NM/CT 640 system. Exercise: Patient exercised for [...] data sets in addition to the conventional hwt-vshoncucnkj-rvbiivfam images. Both filtered back projection and iterative [...] ventricular cavity. 4. SPECT images: Attenuation-corrected and rjf-zigdobvbfsv-jazbytwsm SPECT images were evaluated. SPECT images demonstrate [...] JEB SANTOS MD, CARDIOLOGY ATTENDING Verified by furniture manager for JEB SANTOS MD /JEB MANCILLA-CDD [facility] December 14, 2024 07:49 AM MYOVIEW(1): ROBBIE HUANG MICA [id number] -1940 M Exm Date: DECEMBER 14, 2024@07:49 Req Phys: FARHAT BRIGGS [facility] (Req[facility]g Loc) Img Loc: NUCLEAR MEDICINE Service: Unknown [place] [id number] (Case [id number] COMPLETE)MYOVIEW(1) (NM Detailed) CPT:A9502 Reason for Study: [...] 14, 2024 Date Verified: DECEMBER 14, 2024 Motorized Squad Commanding Officer E-Sig: Report: [place] STUDY: Regadenoson (Lexiscan) SPECT Tc-99m myoview [...] performed with tomographic and three-dimensional reconstructions with [employer] NM/CT 640 system. Exercise: Patient exercised for [...] data sets in addition to the conventional oxe-isdsjahwzhc-pzffniyab images. Both filtered back projection and iterative [...] ventricular cavity. 4. SPECT images: Attenuation-corrected and iru-etcybcctdbr-ihawoagda SPECT images were evaluated. SPECT images demonstrate [...] JEB SANTOS MD, CARDIOLOGY ATTENDING Verified by furniture manager for JEB SANTOS MD /JEB MANCILLA-D [facility] December 14, 2024 07:49 AM MYOVIEW(2): ROBBIE HUANG [id number] [facility]1940 [facility] Date: DECEMBER 14, 2024@07:49 Req Phys: FARHAT BRIGGS Loc: [facility] WHITNEY 16-1 (Req'g Loc) Img Loc: NUCLEAR MEDICINE Service: [place] [address] (Case [id number] COMPLETE)MYOVIEW(2) (NM Detailed) CPT:A9502 Reason for Study: [...] 14, 2024 Date Verified: DECEMBER 14, 2024 Motorized Squad Commanding Officer E-Sig: Report: [facility], [place], [place] STUDY: Regadenoson (Lexiscan) SPECT Tc-99m myoview [...] performed with tomographic and three-dimensional reconstructions with [employer] NM/CT 640 system. Exercise: Patient exercised for [...] data sets in addition to the conventional rcg-kxtdkdcekzg-rcpfhfizm images. Both filtered back projection and iterative [...] ventricular cavity. 4. SPECT images: Attenuation-corrected and wzu-oxfxrdswjfc-nokqmtgdc SPECT images were evaluated. SPECT images demonstrate [...] JEB SANTOS MD, CARDIOLOGY ATTENDING Verified by furniture manager for JEB SANTOS MD /RAD SANTOS,JBE BOOKER-ISMAEL [facility] December 14, 2024 07:49 AM TC-99M X1 FROM NON -HEU SOURCE: ROBBIE HUANG [id number] -1940 M Exm Date: DECEMBER 14, 2024@07:49 Req Phys: JORDYNFARHAT Raul Mora Loc: VETO PACT WHITNEY 16-1 (Req'g Loc) Img Loc: NUCLEAR MEDICINE Service: [place] [address] (Case [id number] COMPLETE)TC-99M X1 FROM NON-HEU SOURCE (NM Detailed) [...] 14, 2024 Date Verified: DECEMBER 14, 2024 Motorized Squad Commanding Officer E-Sig: Report: [facility], [place], [place] STUDY: Regadenoson (Lexiscan) SPECT Tc-99m myoview [...] performed with tomographic and three-dimensional reconstructions with [employer] NM/CT 640 system. Exercise: Patient exercised for [...] data sets in addition to the conventional yis-gzfqfwyiiyg-turqcvury images. Both filtered back projection and iterative [...] ventricular cavity. 4. SPECT images: Attenuation-corrected and jtm-fwvvvyqyoou-wkoyehcwz SPECT images were evaluated. SPECT images demonstrate [...] JEB SANTOS MD, CARDIOLOGY ATTENDING Verified by furniture manager for JEB SANTOS MD /JEB MANCILLA-CDD [facility] December 14, 2024 07:49 AM [id number] REGADENOSON 0.1MG X1 (LEXISCAN): ROBBIE HUANGCALEBAlex [id number] -1940 M Exm Date: DECEMBER 14, 2024@07:49 Req Phys: FARHAT BRIGGS Pat Loc: VETO PACT WHITNEY 16-1 (Req'g Loc) Img Loc: NUCLEAR MEDICINE Service: [place] [address] (Case [id number] COMPLETE)[id number] REGADENOSON 0.1MG X1 (STEPHON(NM Detailed) CPT:J2785 [...] 14, 2024 Date Verified: DECEMBER 14, 2024 Motorized Squad Commanding Officer E-Sig: Report: [facility], [place] STUDY: Regadenoson (Lexiscan) SPECT Tc-99m myoview [...] performed with tomographic and three-dimensional reconstructions with [employer] NM/CT 640 system. Exercise: Patient exercised for [...] data sets in addition to the conventional itt-kcjyymjuxuk-klpwjlota images. Both filtered back projection and iterative [...] ventricular cavity. 4. SPECT images: Attenuation-corrected and nyz-kizmbdhvbvf-rynhxuogq SPECT images were evaluated. SPECT images demonstrate [...] JEB SANTOS MD, CARDIOLOGY ATTENDING Verified by furniture manager for JEB SANTOS MD /JEB MANCILLA-CDD [facility] December 14, 2024 07:49 AM [id number] REGADENOSON 0.1MG X2 (LEXISCAN): MALUTANVIROBBIE [id number] -1940 M Ex Date: DECEMBER 14, 2024@07:49 Req Phys: FARHAT BRIGGS Loc: VETO PACT WHITNEY 16-1 (Req'g Loc) [facility] Loc: NUCLEAR MEDICINE Service: [place] [address] (Case [id number] COMPLETE)[id number] REGADENOSON 0.1MG X2 (STEPHON(NM Detailed) CPT:J2785 Reason for Study: SEE CLINICAL HISTORY Clinical History: Cardiology approval by: [facility] SERVICE CONNECTED? No Active Outpatient Medications [...] 14, 2024 Date Verified: DECEMBER 14, 2024 Motorized Squad Commanding Officer E-Sig: Report: [place] STUDY: Regadenoson (Lexiscan) SPECT Tc-99m myoview [...] performed with tomographic and three-dimensional reconstructions with [employer] NM/CT 640 system. Exercise: Patient exercised for [...] data sets in addition to the conventional bvw-zvgdrtzfgjy-ygrrrflgo images. Both filtered back projection and iterative [...] ventricular cavity. 4. SPECT images: Attenuation-corrected and htr-cebrgozifcc-pkdzqhssn SPECT images were evaluated. SPECT images demonstrate [...] JEB SANTOS MD, CARDIOLOGY ATTENDING Verified by furniture manager for JEB SANTOS MD /JEB MANCILLA-CDD [facility] December 14, 2024 07:49 AM [id number] REGADENOSON 0.1MG X3 (LEXISCAN): ROBBIE HUANG [id number] -1940 M Exm Date: DECEMBER 14, 2024@07:49 Req Phys: FARHAT BRIGGS Pat Loc: VETO PACT WHITNEY 16-1 (Req'g Loc) Img Loc: NUCLEAR MEDICINE Service: [place] [address] (Case [id number] COMPLETE)[id number] REGADENOSON 0.1MG X3 (STEPHON(NM Detailed) CPT:J2785 [...] 14, 2024 Date Verified: DECEMBER 14, 2024 Motorized Squad Commanding Officer E-Sig: Report: [place] STUDY: Regadenoson (Lexiscan) SPECT Tc-99m myoview [...] performed with tomographic and three-dimensional reconstructions with [employer]/CT 640 system. Exercise: Patient exercised for 6 [...] data sets in addition to the conventional nhy-vabxjizkult-dnmecvehn images. Both filtered back projection and iterative [...] ventricular cavity. 4. SPECT images: Attenuation-corrected and vrh-xmlrvmasrbs-cjlupgjew SPECT images were evaluated. SPECT images demonstrate [...] JEB SANTOS MD, CARDIOLOGY ATTENDING Verified by furniture manager for JEB SANTOS MD /JEB MANCILLA-CDD [facility] December 14, 2024 07:49 AM TC-99M X2 FROM NON -HEU SOURCE: ROBBIE HUANG [id number] -1940 M Exm Date: DECEMBER 14, 2024@07:49 Req Phys: FARHAT BRIGGS Loc: [facility] 16-1 (Req'g Loc) [facility] Loc: NUCLEAR MEDICINE Service: [place] [address] (Case [id number] COMPLETE)TC-99M X2 FROM NON-HEU SOURCE (NM Detailed) [...] 14, 2024 Date Verified: DECEMBER 14, 2024 Motorized Squad Commanding Officer E-Sig: Report: [facility], [place] STUDY: Regadenoson (Lexiscan) SPECT Tc-99m myoview [...] performed with tomographic and three-dimensional reconstructions with [employer] NM/CT 640 system. Exercise: Patient exercised for [...] data sets in addition to the conventional siu-xaejauomjhz-hftmbjqap images. Both filtered back projection and iterative [...] ventricular cavity. 4. SPECT images: Attenuation-corrected and ivn-hcfgpiewnwb-lkcvifnvi SPECT images were evaluated. SPECT images demonstrate [...] JEB SANTOS MD, CARDIOLOGY ATTENDING Verified by furniture manager for JEB SANTOS MD /JEB MANCILLA-D [facility] Encounter Notes: All associated encounter notes This section contains the clinical notes associated to the Encounter. Date/Time Encounter Note(s) Provider Source November 28, 2024 07:35 AM ADDENDUM: LOCAL TITLE: Addendum STANDARD TITLE: ADDENDUM DATE OF NOTE: NOVEMBER 28, 2024@07:35:42 ENTRY DATE: NOVEMBER 28, 2024@07:35:44 AUTHOR: FARHAT BRIGGS COSIGNER: URGENCY: STATUS: COMPLETED would set up episodic appt for further eval. /jack/ Farhat Briggs MD Primary Care Attending Signed: 11/28/2024 07:35 Receipt Acknowledged By: 11/28/2024 10:21 /jack/ TYLER PETERS Advanced Work Order Detailer 11/28/2024 11:17 /earline VICENTE, RN PC TESTING PROJECTS ADMINISTRATOR --- Original Document --- 11/27/24 PC CARE MANAGEMENT: Phoned vet per PCP: would f/u with pt about his leg swelling, how long, does it improve with elevating legs above head level at night on pillows. Any breathing changes other than with exertion? Any chest pain, palpitations? 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 If worsening since last test, will need repeat and cardiac w/u. Vet advised of the above. Vet states has been going on a couple of weeks. Skin tight from knees down. States swelling does not decrease with elevation at night but can't elervate like he should because he sleeps on stomach because sleeping on back makes him have to go to bathroom alot more. States can't see ankle bones but no problem with walking. States use to walk 2 miles daily but can't now r/t SOA. No chest pain or palpitations. Vet states things are worse since last PFT. OK to repeat and for cardiac w/u time spent: 9 minutes Yes - /Caregiver verbalized understanding of topics discussed and education provided /earline VICENTE, RN PC TESTING PROJECTS ADMINISTRATOR Signed: 11/27/2024 15:57 Receipt Acknowledged By: 11/28/2024 07:36 /jack/ Farhat Briggs MD Primary Care Attending 11/28/2024 ADDENDUM STATUS: COMPLETED Called Mr. Huang and scheduled appt. for December 03, 2024 at 1:00 pm. Reminder letter sent. /jack/ TYLER PETERS Advanced Work Order Detailer Signed: 11/28/2024 10:26 FARHAT BRIGGS [facility] November 27, 2024 03:45 PM PRIMARY CARE E & M NOTE: LOCAL TITLE: PC CARE MANAGEMENT STANDARD TITLE: PRIMARY CARE E & M NOTE DATE OF NOTE: NOVEMBER 27, 2024@15:45 ENTRY DATE: NOVEMBER 27, 2024@15:45:50 AUTHOR: JAIME STEVE EXP COSIGNER: URGENCY: STATUS: COMPLETED PC CARE MANAGEMENT Has ADDENDA Phoned vet per PCP: would f/u with pt about his leg swelling, how long, does it improve with elevating legs above head level at night on pillows. Any breathing changes other than with exertion? Any chest pain, palpitations? 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 If worsening since last test, will need repeat and cardiac w/u. Vet advised of the above. Vet states has been going on a couple of weeks. Skin tight from knees down. States swelling does not decrease with elevation at night but can't elervate like he should because he sleeps on stomach because sleeping on back makes him have to go to bathroom alot more. States can't see ankle bones but no problem with walking. States use to walk 2 miles daily but can't now r/t SOA. No chest pain or palpitations. Vet states things are worse since last PFT. OK to repeat and for cardiac w/u time spent: 9 minutes Yes - Grady/Caregiver verbalized understanding of topics discussed and education provided /jack/ JAIME VICENTE, RN PC TESTING PROJECTS ADMINISTRATOR Signed: 11/27/2024 15:57 Receipt Acknowledged By: 11/28/2024 07:36 /es/ Farhat Briggs MD Primary Care Attending 11/28/2024 ADDENDUM STATUS: COMPLETED would set up episodic appt for further eval. /jack/ Farhat Briggs MD Primary Care Attending Signed: 11/28/2024 07:35 Receipt Acknowledged By: 11/28/2024 10:21 /jack/ TYLER PETERS Advanced Work Order Detailer * AWAITING SIGNATURE * JAIME STEVE 11/28/2024 ADDENDUM STATUS: COMPLETED Called Mr. Huang and scheduled appt. for December 03, 2024 at 1:00 pm. Reminder letter sent. /jack/ TYLER PETERS Advanced Work Order Detailer Signed: 11/28/2024 10:26 JAIME STEVE [facility]
--- OUTSIDE RECORDS SUMMARY | 2024-11-28 07:03 | XMS_ITS | Encounter Summary ---
Author Name [facility] [place] [facility] [place] [facility] [place] Address [address] [place] [address] Care Team Providers Care Sling Operator Name Role Phone JORDYN DALIA Primary Care [...] AUTOM OTIVE - RETI Jul 25, 2018 [id number] MALUTI PERKINS SPOUSE MEDICARE (WNR) MEDICARE (M) PART B Jan 22, 2007 PART B [id number] MALUJUSTYNA TINAJERO RGE PATIENT MEDICARE (WNR) MEDICARE (M) PART A Sep 22, 2005 PART A [id number] [phone] REINAJUSTYNA AKBAR PATIENT FOR LIFE TRICA RE FOR LIFE Jul 25, 2017 FOR LIFE [id number] ROBBIE HUANG JR PATIENT Selected Encounter This section includes the information on record at [place] for the Encounter. Date/Time Encounter Type Encounter Description Reason Provider Source November 28, 2024 11:03 AM PH1 ASSMT&MGMT NQHP 11-20 TELEPHONE BY STAFF ICD-10-CM I10 Essential (primary) hypertension KEEGAN BRUNNER E Encounter Template Text not used by [place] Assessments - Encounter Diagnoses This section includes the primary and secondary diagnoses documented for the Encounter. Date/Time Primary/Secondary Diagnosis Diagnosis Name Provider Source November 28, 2024 11:03 AM PRIMARY Essential (primary) hypertension SRINIVASAN BRUNNER [facility] Plan of Treatment: Future Appointments (+ 6 months) and Future Tests (+/- 45 days) The Plan of Treatment section includes future care activities for the patient from all [place] [facility] [place] This section includes future appointments and future orders which are active, pending or scheduled. Future Appointments This section includes appointments that were scheduled to occur 6 months from the date of the Encounter, up to a maximum of 20 appointments. The data comes from all [place] treatment [facility]. Appointment Date/Time Appointment Type Appointme nt Facility Name December 03, 2024 01:00 PM [facility] [place] [facility] December 06[facility] 2024 12:15 PM [facility] December 14, 2024 08:00 AM [facility] NONE [place] [facility] Jan 04, 2025 01:30 PM AMBULATORY - SURGERY [facility] Jan 31, 2025 03:00 PM [facility]IC[facility] Feb 05, 2025 01:00 PM [facility] Feb 05, 2025 02:00 PM [facility] Active, Pending, and Scheduled Orders This section includes a listing of several types of active, pending, and scheduled orders, including clinic medications orders, diagnostic test orders, procedure orders and consult orders; where the start date of the order is 45 days before the date of the Encounter or 45 days after the date of theEncounter. The data comes from all [place] treatment facilities. Test Date/Time Test Type Test Details Facility Name Jan 04, 2025 12:00 AM Imaging - Vascular Lab Order SEGMENTAL PRESSURES, LOWER EXT([place]) [facility] Jan 04, 2025 12:00 AM Imaging - Vascular Lab Order VENOUS DUPLEX LOWER EXT BILAT [facility] Lab Results: +/- 30 days of the encounter This section includes the Chemistry and Hematology Lab Results on record with [place] for the patient. Radiology Reports and Pathology Reports are provided separately, in subsequent sections. Lab Results This section contains the Chemistry/Hematology Results that were resulted 30 days before or 30 daysafter the date of the Encounter. Date/Time Source Result Type Result - Unit Interpretation Reference Range Specimen Type Comment December 03, 2024 02:03 PM [facility] PROTEIN ELECTROPHORESIS URINE Specimen Type: URINE No comment entered. Ordering Provider: DALIA COBB Report Released Date/Time: December 03, 2024 01:24 PM Reporting Lab: [address] [address] Performing Lab: [address] [address] TOTAL PROTEIN 17.0 mg/dL Not Estab. .ALBUMIN ELEC 29.4 .ALPHA 1 ELEC 5.2 .ALPHA 2 ELEC 21.5 .BETA ELEC 19.7 .GAMMA ELEC 24.2 .M-SPIKE Not Observed Not Observed December 03, 2024 02:03 PM [facility] TOTAL PROTEIN URINE Specimen Type: URINE No comment entered. Ordering Provider: DALIA COBB Report Released Date/Time: December 03, 2024 01:24 PM Reporting Lab: [address] [address] Performing Lab: [address] [address] TOTAL PROTEIN 16 mg/dL H 0-14 December 03, 2024 02:03 PM [facility] CREATININE URINE Specimen Type: URINE No comment entered. Ordering Provider: DALIA COBB Report Released Date/Time: December 03, 2024 01:24 PM Reporting Lab: [address] [address] Performing Lab: [address] [address] CREATININE 63.6 mg/dL December 03, 2024 02:03 PM [facility] URINALYSIS URINE Specimen Type: URINE Comment: Microscopic not indicated Ordering Provider: DALIA COBB Report Released Date/Time: December 03, 2024 01:29 PM Reporting Lab: [address] [address] Performing Lab: [address] [address] URINE COLOR Light Yellow Colorless-Yello w APPEARANCE Clear Clear UROBILINOGEN Normal mg/dL Normal URINE BLOOD Negative Negative URINE BILIRUBIN Negative Negative URINE KETONES Negative mg/dL Negative URINE PROTEIN Negative mg/dL Negative-Tr rachell URINE PH 5.0 4.5-8.0 URINE NITRITE Negative Negative URINE LEUKOCYTE EST Negative Negative SPECIFIC GRAVITY 1.014 1.005-1.030 URINE GLUCOSE >1000 mg/dL H Negative December 03, 2024 01:45 PM [facility] ANTI-NUCLEAR Ab SERUM Specimen Type: SERUM Comment: Atypical speckled resembling DFS (Dense-Fine Speckled. The DFS pattern has a low prevalence in systemic autoimmune rheumatic diseases. The clinical association remains unclear. Due to its close resemblance to other patterns of clinical relevance, (i.e. Homogeneous, speckled, and mixed patterns) follow-up testing may be recommended. ANTI-NUCLEAR Ab reported incorrectly as Atypical Speckled by [[id number]]. Changed to 1:320 Atypical Speckled on December 06, 2024@12:59 by [[id number]]. Ordering Provider: DALIA COBB Report Released Date/Time: December 03, 2024 01:38 PM Reporting Lab: [address] [address] Performing Lab: [address] [address] ANTI-NUCLEAR Ab 1:320 Atypical Speckled <1:80 December 03, 2024 01:45 PM [facility] ROSALIE (SERUM) SERUM Specimen Type: SERUM Comment: BNP results less than or equal to 100 pg/ml are insurance service representative of normal values in patients without CHF. BNP results greater than 100 pg/ml are considered abnormal and suggestive of CHF. Higher BNP concentrations in the first 72 hours after Acute Coronary Syndrome are associated with an increased risk of , myocardial infarction and CHF. Ordering Provider: DALIA COBB Report Released Date/Time: December 03, 2024 01:24 PM Reporting Lab: [address] [address] Performing Lab: [facility] [address] [facility] [address] .ALBUMIN ELEC 3.6 g/dL 2.9-4.4 .ALPHA 1 [...] INTERPRETATION Comment December 03, 2024 01:45 PM [facility] JORDAN SCREEN SERUM Specimen Type: SERUM No comment entered. Ordering Provider: DALIA COBB Report Released Date/Time: December 03, 2024 01:38 PM Reporting Lab: [address] [address] Performing Lab: [address] [address] JORDAN SCREEN Negative Negative December 03, 2024 01:45 PM [facility] BNP ([employer]) PLASMA Specimen Type: PLASMA Comment: BNP results less than or equal to 100 pg/ml are insurance service representative of normal values in patients without CHF. BNP results greater than 100 pg/ml are considered abnormal and suggestive of CHF. Higher BNP concentrations in the first 72 hours after Acute Coronary Syndrome are associated with an increased risk of , myocardial infarction and CHF. Ordering Provider: DALIA COBB Report Released Date/Time: December 03, 2024 01:24 PM Reporting Lab: [address] [address] Performing Lab: [address] [address] BNP (MCCALL) 225 pg/mL H 0-100 December 03, 2024 01:45 PM [facility] TOTAL PLASMA Specimen Type: PLASM A [...] December 03, 2024 01:33 PM Reporting Lab: [facility] [address] [facility] [address] Performing Lab: [facility] [address] [facility] [address] CK TOTAL 76 U/L 30-200 December 03, 2024 01:45 PM [facility] 5 PLASMA Specimen Type: PLASM [...] December 03, 2024 01:24 PM Reporting Lab: [address] [address] Performing Lab: [place] [phone] CREATININE 2.05 mg/dL H 0.72-1.25 UREA NITROGEN [...] eGFR (CKD-EPI) December 03, 2024 01:45 PM [facility] CBC/PLT BLOOD Specimen Type: BLOOD No comment entered. Ordering Provider: DALIA COBB Report Released Date/Time: December 03, 2024 01:33 PM Reporting Lab: [address] [address] Performing Lab: [place] [phone] WBC 5.6 10*3/uL 5.0-10.0 RBC 4.24 10*6/uL L 4.6-6.2 HGB 12.8 g/dL L 14.0-18.0 HCT 39.4 L 42.0-52.0 MCV 92.9 fL 80.0-94.0 MCH 30.2 pg 27.0-31.0 MCHC 32.5 g/dL 32.0-36.0 PLT 248 10*3/uL 150-450 MPV 10.2 fL 9.0-13.1 RDW 14.2 11.0-16.0 NRBC 0.0 0.0-0.0 December 03, 2024 01:45 PM [facility] AUTOMATED DIFF BLOOD Specimen Type: BLOOD No comment entered. Ordering Provider: DALIA COBB Report Released Date/Time: December 03, 2024 01:33 PM Reporting Lab: [facility] [address] [facility] [address] Performing Lab: [address] [address] A-LYMPH % 22.1 L 24.0-44.0 A-MONO % [...] and tobacco- related health factors from the [place] facility where the Encounter took place. Current Smoking Status This section includes the most current smoking, or tobacco-related health factor, from the [place] facility where the Encounter took place. Date/Time Current Smoking Status Comment Kelechi dial May 25, 2023 01:30 PM VA-TOBACCO [facility] Tobacco Use History This section includes a history of the smoking, or tobacco-related health factors, that were collected on or before the date of the Encounter. The data comes from the [place] facility where the Encounter took place. Date/Time Smoking Status/Tobacco Use Comment Ricardo acility May 25, 2023 01:30 PM VA-TOBACCO QUIT 15 YRS OR MORE [facility] Jun 18, 2022 01:30 PM VA-TOBACCO FORMER USER [facility] Jun 18, 2022 01:30 PM VA-TOBACCO QUIT 15 YRS OR MORE [facility] Jun 29, 2021 03:00 PM VA-TOBACCO [facility]MER USER [facility] Jun 29, 2021 03:00 PM VA-TOBACCO QUIT 15 YRS OR MORE [facility] Jul 28, 2020 09:30 AM VA-TOBACCO FORMER USER [facility] Jul 28, 2020 09:30 AM VA-TOBACCO QUIT 15 YRS OR MORE [facility] Jul 09, 2019 03:25 PM VA-TOBACCO NEVER USED [facility] Aug 24, 2018 02:06 PM VA-TOBACCO [facility]MER USER [facility] Aug 24, 2018 02:06 PM VA-TOBACCO QUIT 15 YRS OR MORE [facility] Sep 22, 2017 07:57 AM V9 LIFETIME NON-USER OF TOBACCO [facility] December 15, 2015 08:07 AM V9 LIFETIME NON-USER OF TOBACCO [facility] Jun 14, 2014 07:48 AM V9 LIFETIME NON-USER OF TOBACCO [facility] Jun 07, 2013 10:08 AM V9 LIFETIME NON-USER OF TOBACCO [facility] May 29, 2012 10:26 AM V9 LIFETIME NON-USER OF TOBACCO [facility] Nov 22, 2011 02:23 PM V9 LIFETIME NON-USER OF TOBACCO [facility] Oct 23, 2010 09:22 AM V9 QUIT TOBACCO >7 YEARS AGO [facility] May 30, 2007 03:08 PM V9 LIFETIME NON-USER OF TOBACCO [facility] Radiology Reports: +/- 30 days of the [...] the Encounter. The data comes from all [facility]. Date/Time Radiology Report Provider Source December 14, 2024 07:49 AM CARD. STRESS TEST W/TREADMILL/...: ROBBIE HUANG [id number] 1940 M Exm Date: DECEMBER 14, 2024@07:49 Req Phys: DALIA COBB Pat Loc: VETO PACT WHITNEY 16-1 (Req'g Loc) Img Loc: NUCLEAR MEDICINE Service: [place] [address] (Case [id number] COMPLETE)CARD. STRESS TEST W/TREADMILL/...(NM Detailed) CPT:30454 Reason for Study: SEE CLINICAL HISTORY Clinical [...] 14, 2024 Date Verified: DECEMBER 14, 2024 [employer] Art Teacher E-Sig: Report: STUDY: GXT with vasodilator REPORT: [...] Staff: CHAO ORR APRN, Cardiology Verified by coroner forensic technician for CHAO ORR /CHAO GIRON-D [facility] December 14, 2024 07:49 AM [id number] REGADENOSON 0.1MG X4 (LEXISCAN): REINAROBBIE NINO [id number] -1940 M Exm Date: DECEMBER 14, 2024@07:49 Req Phys: DALIA COBB Loc: [facility] PACT [facility] 16-1 (Req'g Loc) Img Loc: NUCLEAR MEDICINE Service: [place] [address] (Case [id number] COMPLETE)[id number] REGADENOSON 0.1MG X4 (STEPHON(NM Detailed) CPT:J2785 Reason for Study: SEE CLINICAL HISTORY Clinical History: Cardiology approval by: [facility] SERVICE CONNECTED? No Active Outpatient Medications (including [...] 14, 2024 Date Verified: DECEMBER 14, 2024 [employer] Art Teacher E-Sig: Report: STUDY: GXT with vasodilator REPORT: [...] Staff: CHAO ORR APRN, Cardiology Verified by coroner forensic technician for CHAO ORR /CHAO GIRON-[place] [facility] December 14, 2024 07:49 AM CARD. STRESS TEST W/TREADMILL/...: ROBBIE HUANG [id number] -1940 M Exm Date: DECEMBER 14, 2024@07:49 Req Phys: DALIA COBB [facility] (Req[facility]g Loc) Img Loc: NUCLEAR MEDICINE Service: [place] [address] (Case [id number] COMPLETE)CARD. STRESS TEST W/TREADMILL/...(NM Detailed) CPT:65284 Proc Modifiers : GXT Reason for Study: SEE CLINICAL HISTORY Clinical History: Cardiology approval by: [facility] SERVICE CONNECTED? 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 Exercise: Patient exercised for [...] data sets in addition to the conventional lez-oyixzobvlpd-mgyommhtc images. Both filtered back projection and iterative [...] ventricular cavity. 4. SPECT images: Attenuation-corrected and sag-fmylmindgny-rwmfytwid SPECT images were evaluated. SPECT images demonstrate [...] JEB SANTOS MD, CARDIOLOGY ATTENDING Verified by coroner forensic technician for JEB SANTOS MD /JEB MANCILLA-D [facility] December 14, 2024 07:49 AM 48606(D) MYOCARDIA L SPECT(MULTIPLE): ROBBIE HUANG [id number] -1940 M Ex Date: DECEMBER 14, 2024@07:49 Req Phys: DALIA COBB Pat Loc: [facility] PACT [facility] 16-1 (Req'g Loc) Img Loc: NUCLEAR MEDICINE Service: [place] [address] (Case [id number] COMPLETE)18742(D) MYOCARDIAL SPECT(MULTIPL(NM Detailed) CPT:15493 Proc Modifiers : Lexiscan (Regadenoson) CPT Modifiers [...] YENNY GAMBOA Clinical History: Cardiology approval by: [facility] CONNECTED? No Active Outpatient Medications (including [...] 14, 2024 Date Verified: DECEMBER 14, 2024 [employer] Art Teacher E-Sig: Report: [place], [place] STUDY: Regadenoson (Lexiscan) SPECT Tc-99m myoview [...] performed with tomographic and three-dimensional reconstructions with [employer] NM/CT 640 system. Exercise: Patient exercised for [...] data sets in addition to the conventional sjh-crfqpqjautf-azggueiqn images. Both filtered back projection and iterative [...] ventricular cavity. 4. SPECT images: Attenuation-corrected and xqd-jlwnkjzvnby-zlmczcgds SPECT images were evaluated. SPECT images demonstrate [...] JEB SANTOS MD, CARDIOLOGY ATTENDING Verified by coroner forensic technician for JEB SANTOS MD /JEB MANCILLA-CDD [facility] December 14, 2024 07:49 AM MYOVIEW(1): ROBBIE HUANG MICA [id number] -1940 M Exm Date: DECEMBER 14, 2024@07:49 Req Phys: DALIA COBB [facility] (Req'g Loc) Img Loc: NUCLEAR MEDICINE Service: Unknown [place] [id number] (Case [id number] COMPLETE)MYOVIEW(1) (NM Detailed) CPT:A9502 Reason for Study: [...] 14, 2024 Date Verified: DECEMBER 14, 2024 High [employer] Art Teacher E-Sig: Report: [place], [place] STUDY: Regadenoson (Lexiscan) SPECT Tc-99m myoview [...] performed with tomographic and three-dimensional reconstructions with [employer] NM/CT 640 system. Exercise: Patient exercised for [...] data sets in addition to the conventional dva-csmcesqnfzj-hkksutadr images. Both filtered back projection and iterative [...] ventricular cavity. 4. SPECT images: Attenuation-corrected and tyz-glshoifqxlm-gstinkwhc SPECT images were evaluated. SPECT images demonstrate [...] JEB SANTOS MD, CARDIOLOGY ATTENDING Verified by coroner forensic technician for JEB SANTOS MD /JEB MANCILLA-D [facility] December 14, 2024 07:49 AM MYOVIEW(2): ROBBIE HUANG [id number] [facility]1940 [facility] Date: DECEMBER 14, 2024@07:49 Req Phys: DALIA COBB Loc: [facility] WHITNEY 16-1 (Req'g Loc) Img Loc: NUCLEAR MEDICINE Service: [place] [address] (Case [id number] COMPLETE)MYOVIEW(2) (NM Detailed) CPT:A9502 Reason for Study: [...] 14, 2024 Date Verified: DECEMBER 14, 2024 [employer] Art Teacher E-Sig: Report: [facility], [place], [place] STUDY: Regadenoson (Lexiscan) SPECT Tc-99m myoview [...] performed with tomographic and three-dimensional reconstructions with [employer] NM/CT 640 system. Exercise: Patient exercised for [...] data sets in addition to the conventional oxq-agtslfqvgjp-ssmpcalyh images. Both filtered back projection and iterative [...] ventricular cavity. 4. SPECT images: Attenuation-corrected and pta-ppnnzteyypf-ktfzfildo SPECT images were evaluated. SPECT images demonstrate [...] JEB SANTOS MD, CARDIOLOGY ATTENDING Verified by coroner forensic technician for JBE SANTOS MD /RAD SANTOS,JEB BOOKER-ISMAEL [facility] December 14, 2024 07:49 AM TC-99M X1 FROM NON -HEU SOURCE: ROBBIE HUANG [id number] -1940 M Exm Date: DECEMBER 14, 2024@07:49 Req Phys: JORDYNDALIA Raul Mora Loc: VETO PACT WHITNEY 16-1 (Req'g Loc) Img Loc: NUCLEAR MEDICINE Service: [place] [address] (Case [id number] COMPLETE)TC-99M X1 FROM NON-HEU SOURCE (NM Detailed) [...] 14, 2024 Date Verified: DECEMBER 14, 2024 [employer] Art Teacher E-Sig: Report: [facility], [place], [place] STUDY: Regadenoson (Lexiscan) SPECT Tc-99m myoview [...] performed with tomographic and three-dimensional reconstructions with [place] NM/CT 640 system. Exercise: Patient exercised for [...] data sets in addition to the conventional olb-mcugqgiaujl-fkxsgbzvz images. Both filtered back projection and iterative [...] ventricular cavity. 4. SPECT images: Attenuation-corrected and nnn-gzattogyuaf-ltawhqwnx SPECT images were evaluated. SPECT images demonstrate [...] JEB SANTOS MD, CARDIOLOGY ATTENDING Verified by coroner forensic technician for JEB SANTOS MD /JEB MANCILLA-CDD 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 Exercise: Patient exercised for [...] data sets in addition to the conventional pqx-ogxkkaokalp-ucrqpeuko images. Both filtered back projection and iterative [...] ventricular cavity. 4. SPECT images: Attenuation-corrected and tzh-gkxzlircciz-nkcwjbzxz SPECT images were evaluated. SPECT images demonstrate [...] JEB SANTOS MD, CARDIOLOGY ATTENDING Verified by coroner forensic technician for JEB SANTOS MD /JEB MANCILLA-CDD [facility] December 14, 2024 07:49 AM [id number] REGADENOSON 0.1MG X2 (LEXISCAN): MALUTANVIROBBIE [id number] -1940 M Ex Date: DECEMBER 14, 2024@07:49 Req Phys: DALIA COBB Loc: VETO PACT WHITNEY 16-1 (Req'g Loc) [facility] Loc: NUCLEAR MEDICINE Service: [place] [address] (Case [id number] COMPLETE)[id number] REGADENOSON 0.1MG X2 (STEPHON(NM Detailed) CPT:J2785 Reason for Study: SEE CLINICAL HISTORY Clinical History: Cardiology approval by: [facility] SERVICE CONNECTED? 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 Exercise: Patient exercised for [...] data sets in addition to the conventional taq-hupuycvrpyn-pmlcwgztg images. Both filtered back projection and iterative [...] ventricular cavity. 4. SPECT images: Attenuation-corrected and bxv-jhiruumunhy-zfdcebljr SPECT images were evaluated. SPECT images demonstrate [...] JEB SANTOS MD, CARDIOLOGY ATTENDING Verified by coroner forensic technician for JEB SANTOS MD /JEB MANCILLA-CDD 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 Exercise: Patient exercised for 6 [...] data sets in addition to the conventional wsu-rdymtgecdlb-iiqftmobv images. Both filtered back projection and iterative [...] ventricular cavity. 4. SPECT images: Attenuation-corrected and svb-inxwqzetvtu-pdletxakp SPECT images were evaluated. SPECT images demonstrate [...] JEB SANTOS MD, CARDIOLOGY ATTENDING Verified by coroner forensic technician for JEB SANTOS MD /JEB MANCILLA-CDD 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 Exercise: Patient exercised for [...] data sets in addition to the conventional mhc-tjtsgbeeryy-bzlvpjquy images. Both filtered back projection and iterative [...] ventricular cavity. 4. SPECT images: Attenuation-corrected and nox-ppxgobghytg-brjfyuwyf SPECT images were evaluated. SPECT images demonstrate [...] JEB SANTOS MD, CARDIOLOGY ATTENDING Verified by coroner forensic technician for JEB SANTOS MD /JEB MANCILLA-ISMAEL [facility] Encounter Notes: All associated encounter notes This section contains the clinical notes associated to the Encounter. Date/Time Encounter Note(s) Provider Source November 28, 2024 11:03 AM CARE COORDINATION HOME TELEHEALTH FOLLOW-UP NOTE: LOCAL TITLE: HT INTERVENTION NOTE STANDARD TITLE: CARE COORDINATION HOME TELEHEALTH FOLLOW-UP NOTE DATE OF NOTE: NOVEMBER 28, 2024@11:03 ENTRY DATE: NOVEMBER 28, 2024@11:03:39 AUTHOR: GARCIA BRUNNER COSIGNER: URGENCY: STATUS: COMPLETED HT Admission Date: [...] will be less than 140/90. INTERVENTIONS: 1. [place] will monitor home vitals daily over the next 6 months 2. Educate the patient on the signs and symptoms of hypo-and hypertension; 3. will stay on a low-salt diet over the next 6 months. 4. [place] will continue to stay active and exercise [...] Name: ROBBIE HUANG Disease(s): Hypertension Date Range: 11/14/2024 - 11/28/2024 Blood Pressure Readings: Date 04:00-12:00 12:00-18:00 18:00-04:00 11/27/24 140/66 64(11:28) 153/68 71(21:14) 11/26/24 133/67 66(10:37) 156/73 67(21:13) 158/76 73(21:12) 11/25/24 128/66 63(10:24) 11/24/24 129/66 70(11:34) 147/76 69(21:20) 11/23/24 127/66 70(20:59) 11/22/24 140/74 81(10:52) 137/70 75(22:31) 11/21/24 140/74 70(20:47) 11/20/24 136/73 69(10:43) 148/71 74(21:28) 11/19/24 11/18/24 143/73 75(15:58) 153/73 74(15:57) 11/17/24 137/69 63(14:51) 144/69 70(21:13) 11/16/24 144/71 67(21:00) 11/15/24 140/70 69(20:54) 11/14/24 136/73 70(12:05) [place] Average Report Sys/[place] BP-HR Average 141/71 70 High 158/76 81 Low 127/66 63 ========= Assessment/Intervention( s)/Plan: Called and spoke with about check in. He stated that he was so surprised to wake up today and the swelling had gone down. He stated that he has been able to tell that the skin is tight at his ankles to know that he has had bad swelling but today it was not like that. He could move his ankles and not feel it bulging. He stated that his calves look okay today as well. He denies any other issues or concerns right now. He is planning to go to his PCP appt on the and will figure out more at that time. If new concerns arise before then, he will reach out to HT RN. He appreciated all assistance. Data update above [place] with improving symptoms HT RN to continue to monitor /es/ GARCIA BRUNNER, MSN, RN-BC PSYCHOLOGICAL ASSISTANT Signed: 11/29/2024 15:[address] [facility]
--- OUTSIDE RECORDS SUMMARY | 2024-12-03 09:00 | XMS_ITS | Encounter Summary ---
Author Name [facility] [facility] [place] Address [address] [place] [address] Care Team Providers Care Home Care Associate Name Role Phone JORDYN FARHAT Primary Care [...] AUTOM OTIVE - RETI Jul 25, 2018 [id number] MALUTI PERKINS JORDAN SPOUSE MEDICARE (WNR) MEDICARE (M) PART B Jan 22, 2007 PART B [id number] MALUJUSTYNA TINAJERO RGE PATIENT MEDICARE (WNR) MEDICARE (M) PART A Sep 22, 2005 PART A [id number] [phone] REINAJUSTYNA PATIENT FOR LIFE TRICA RE FOR LIFE Jul 25, 2017 FOR LIFE [id number] ROBBIE HUANG JR PATIENT Selected Encounter This section includes the information on record at [place] for the Encounter. Date/Time Encounter Type Encounter Description Reason Provider Source December 03, 2024 01:00 PM OFFICE O/P EST HI 40 MIN PRIMARY CARE/MEDICINE ICD-10-CM R06.09 Other forms of dyspnea FARHAT BRIGGS [place] Encounter Template Text not used by [place] Assessments - Encounter Diagnoses This section includes the primary and secondary diagnoses documented for the Encounter. Date/Time Primary/Secondary Diagnosis Diagnosis Name Provider Source December 10, 2024 03:59 PM PRIMARY Other forms of dyspnea FARHAT BRIGGS [facility] December 10, 2024 03:59 PM SECONDARY Localized edema FARHAT BRIGGS [facility] Plan of Treatment: Future Appointments (+ 6 months) and Future Tests (+/- 45 days) The Plan of Treatment section includes future care activities for the patient from all [place] [facility] This section includes future appointments and future orders which are active, pending or scheduled. Future Appointments This section includes appointments that were scheduled to occur 6 months from the date of the Encounter, up to a maximum of 20 appointments. The data comes from all [place] treatment [facility]. Appointment Date/Time Appointment Type Appointme nt Facility Name December 06, 2024 12:15 PM AMBULATORY - MEDICINE [facility] December 14, 2024 08:00 AM AMBULATORY - NONE [place] [facility] Jan 04, 2025 01:30 PM AMBULATORY - SURGERY [facility] [facility] Jan 31, 2025 03:00 PM [facility] Feb 05, 2025 01:00 PM [facility] - MEDICINE [facility] Feb 05, 2025 02:00 PM AMBULATORY - MEDICINE [facility] Active, Pending, and Scheduled Orders This section includes a listing of several types of active, pending, and scheduled orders, including clinic medications orders, diagnostic test orders, procedure orders and consult orders; where the start date of the order is 45 days before the date of the Encounter or 45 days after the date of theEncounter. The data comes from all [place] treatment [facility]. Test Date/Time Test Type Test Details Facility Name Jan 04, 2025 12:00 AM Imaging - Vascular Lab Order SEGMENTAL PRESSURES, LOWER EXT([place]) UNILAT [facility] Jan 04, 2025 12:00 AM Imaging - Vascular Lab Order VENOUS DUPLEX LOWER EXT BILAT [facility] Lab Results: +/- 30 days of the encounter This section includes the Chemistry and Hematology Lab Results on record with [place] for the patient. Radiology Reports and Pathology Reports are provided separately, in subsequent sections. Lab Results This section contains the Chemistry/Hematology Results that were resulted 30 days before or 30 daysafter the date of the Encounter. Date/Time Source Result Type Result - Unit Interpretation Reference Range Specimen Type Comment December 03, 2024 02:03 PM [facility] PROTEIN ELECTROPHORESIS URINE Specimen Type: URINE No comment entered. Ordering Provider: FARHAT BRIGGS Report Released Date/Time: December 03, 2024 01:24 PM Reporting Lab: [address] [address] Performing Lab: [address] [address] TOTAL PROTEIN 17.0 mg/dL Not Estab. .ALBUMIN ELEC 29.4 .ALPHA 1 ELEC 5.2 .ALPHA 2 ELEC 21.5 .BETA ELEC 19.7 .GAMMA ELEC 24.2 .M-SPIKE Not Observed Not Observed December 03, 2024 02:03 PM [facility] TOTAL PROTEIN URINE Specimen Type: URINE No comment entered. Ordering Provider: FARHAT BRIGGS Report Released Date/Time: December 03, 2024 01:24 PM Reporting Lab: [address] [address] Performing Lab: [address] [address] TOTAL PROTEIN 16 mg/dL H 0-14 December 03, 2024 02:03 PM [facility] CREATININE URINE Specimen Type: URINE No comment entered. Ordering Provider: FARHAT BRIGGS Report Released Date/Time: December 03, 2024 01:24 PM Reporting Lab: [address] [address] Performing Lab: [address] [address] CREATININE 63.6 mg/dL December 03, 2024 02:03 PM [facility] URINALYSIS URINE Specimen Type: URINE Comment: Microscopic not indicated Ordering Provider: FARHAT BRIGGS Report Released Date/Time: December 03, 2024 01:29 PM Reporting Lab: [address] [address] Performing Lab: [address] [address] URINE COLOR Light Yellow Colorless-Yello w APPEARANCE Clear Clear UROBILINOGEN Normal mg/dL Normal URINE BLOOD Negative Negative URINE BILIRUBIN Negative Negative URINE KETONES Negative mg/dL Negative URINE PROTEIN Negative mg/dL Negative-Tr rachell URINE PH 5.0 4.5-8.0 URINE NITRITE Negative Negative URINE LEUKOCYTE EST Negative Negative SPECIFIC GRAVITY 1.014 1.005-1.030 URINE GLUCOSE >1000 mg/dL H Negative December 03, 2024 01:45 PM [facility] ANTI-NUCLEAR Ab SERUM Specimen Type: SERUM Comment: Atypical speckled resembling DFS (Dense-Fine Speckled. The DFS pattern has a low prevalence in systemic autoimmune rheumatic diseases. The clinical association remains unclear. Due to its close resemblance to other patterns of clinical relevance, (i.e. Homogeneous, speckled, and mixed patterns) follow-up testing may be recommended. ANTI-NUCLEAR Ab reported incorrectly as Atypical Speckled by [[id number]]. Changed to 1:320 Atypical Speckled on December 06, 2024@12:59 by [[id number]]. Ordering Provider: FARHAT BRIGGS Report Released Date/Time: December 03, 2024 01:38 PM Reporting Lab: [address] [address] Performing Lab: [address] [address] ANTI-NUCLEAR Ab 1:320 Atypical Speckled <1:80 December 03, 2024 01:45 PM [facility] ROSALIE (SERUM) SERUM Specimen Type: SERUM Comment: BNP results less than or equal to 100 pg/ml are electronics parts sales representative of normal values in patients without CHF. BNP results greater than 100 pg/ml are considered abnormal and suggestive of CHF. Higher BNP concentrations in the first 72 hours after Acute Coronary Syndrome are associated with an increased risk of , myocardial infarction and CHF. Ordering Provider: FARHAT BRIGGS Report Released Date/Time: December 03, 2024 01:24 PM Reporting Lab: [address] [address] Performing Lab: [facility] [address] [facility] [address] .ALBUMIN ELEC 3.6 g/dL 2.9-4.4 .ALPHA 1 [...] INTERPRETATION Comment December 03, 2024 01:45 PM [facility] JORDAN SCREEN SERUM Specimen Type: SERUM No comment entered. Ordering Provider: FARHAT BRIGGS Report Released Date/Time: December 03, 2024 01:38 PM Reporting Lab: [address] [address] Performing Lab: [place] [phone] JORDAN SCREEN Negative Negative December 03, 2024 01:45 PM [facility] BNP ([employer]) PLASMA Specimen Type: PLASMA Comment: BNP results less than or equal to 100 pg/ml are electronics parts sales representative of normal values in patients without CHF. BNP results greater than 100 pg/ml are considered abnormal and suggestive of CHF. Higher BNP concentrations in the first 72 hours after Acute Coronary Syndrome are associated with an increased risk of , myocardial infarction and CHF. Ordering Provider: FARHAT BRIGGS Report Released Date/Time: December 03, 2024 01:24 PM Reporting Lab: [place] [phone] Performing Lab: [address] [address] BNP (MCCALL) 225 pg/mL H 0-100 December 03, 2024 01:45 PM [facility] CK TOTAL PLASMA Specimen Type: PLASM A [...] December 03, 2024 01:33 PM Reporting Lab: [facility] [address] [facility] [address] Performing Lab: [address] [address] CK TOTAL 76 U/L 30-200 December 03, 2024 01:45 PM [facility] PANEL 5 PLASMA Specimen Type: PLASM A [...] December 03, 2024 01:24 PM Reporting Lab: [address] [address] Performing Lab: [place] [phone] CREATININE 2.05 mg/dL H 0.72-1.25 UREA NITROGEN [...] eGFR (CKD-EPI) December 03, 2024 01:45 PM [facility] CBC/PLT BLOOD Specimen Type: BLOOD No comment entered. Ordering Provider: FARHAT BRIGGS Report Released Date/Time: December 03, 2024 01:33 PM Reporting Lab: [address] [address] Performing Lab: [place] [phone] WBC 5.6 10*3/uL 5.0-10.0 RBC 4.24 10*6/uL L 4.6-6.2 HGB 12.8 g/dL L 14.0-18.0 HCT 39.4 L 42.0-52.0 MCV 92.9 fL 80.0-94.0 MCH 30.2 pg 27.0-31.0 MCHC 32.5 g/dL 32.0-36.0 PLT 248 10*3/uL 150-450 MPV 10.2 fL 9.0-13.1 RDW 14.2 11.0-16.0 NRBC 0.0 0.0-0.0 December 03, 2024 01:45 PM [facility] AUTOMATED DIFF BLOOD Specimen Type: BLOOD No comment entered. Ordering Provider: FARHAT BRIGGS Report Released Date/Time: December 03, 2024 01:33 PM Reporting Lab: [facility] [address] [facility] [address] Performing Lab: [address] [address] A-LYMPH % 22.1 L 24.0-44.0 A-MONO % 10.3 H 0.1-6.0 A-GRAN % 64.4 42.0-75.0 A-LYMPH # 1.24 10*3/uL 1.20-3.40 A-MONO # 0.58 10*3/uL 0.00-0.60 A-GRAN # 3.61 10*3/uL 1.40-6.50 A-BASO % 0.2 0.0-3.0 A-BASO # 0.01 10*3/uL 0.00-0.20 A-EOS % 2.5 0.0-10.0 A-EOS # 0.14 10*3/uL 0.00-0.70 A-IG % 0.5 0.0-0.5 A-IG # 0.03 10*3/uL 0.00-0.06 Vital Signs: All taken on the encounter date This section contains inpatient and outpatient Vital Signs collected on the date of the Encounter. Date/Time Temperature Pulse Blood Pressure Respiratory Rate SP02 Pain Height Weight Body Mass Index Source December 03, 2024 01:07 PM 97.3 62 131/67 96 0 186 30 [place] [facility] Social History: Smoking Status (Most current) and Tobacco Use (All prior to encounter date) This section includes the most current, and the historical, smoking and tobacco- related health factors from the [place] facility where the Encounter took place. Current Smoking Status This section includes the most current smoking, or tobacco-related health factor, from the [place] facility where the Encounter took place. Date/Time Current Smoking Status Comment Kelechi ity May 25, 2023 01:30 PM VA-TOBACCO FORMER USER [facility] Tobacco Use History This section includes a history of the smoking, or tobacco-related health factors, that were collected on or before the date of the Encounter. The data comes from the [place] facility where the Encounter took place. Date/Time Smoking Status/Tobacco Use Comment F acgenet May 25, 2023 01:30 PM VA-TOBACCO QUIT 15 YRS OR MORE [facility] Jun 18, 2022 01:30 PM VA-TOBACCO FORMER USER [facility] Jun 18, 2022 01:30 PM VA-TOBACCO QUIT 15 YRS OR MORE [facility] Jun 29, 2021 03:00 PM VA-TOBACCO FORMER USER [facility] Jun 29, 2021 03:00 PM VA-TOBACCO QUIT 15 YRS OR MORE [facility] Jul 28, 2020 09:30 AM VA-TOBACCO FORMER USER [facility] Jul 28, 2020 09:30 AM VA-TOBACCO QUIT 15 YRS OR MORE [facility] Jul 09, 2019 03:25 PM VA-TOBACCO NEVER USED [facility] Aug 24, 2018 02:06 PM VA-TOBACCO FORMER USER [facility] Aug 24, 2018 02:06 PM VA-TOBACCO QUIT 15 YRS OR MORE [facility] Sep 22, 2017 07:57 AM V9 LIFETIME NON-USER OF TOBACCO [facility] December 15, 2015 08:07 AM V9 LIFETIME NON-USER OF TOBACCO [facility] Jun 14, 2014 07:48 AM V9 LIFETIME NON-USER OF TOBACCO [facility] Jun 07, 2013 10:08 AM V9 LIFETIME NON-USER OF TOBACCO [facility] May 29, 2012 10:26 AM V9 LIFETIME NON-USER OF TOBACCO [facility] Nov 22, 2011 02:23 PM V9 LIFETIME NON-USER OF TOBACCO [facility] Oct 23, 2010 09:22 AM V9 QUIT TOBACCO >7 YEARS AGO [facility] May 30, 2007 03:08 PM V9 LIFETIME NON-USER OF TOBACCO [facility] Radiology Reports: +/- 30 days of [...] the Encounter. The data comes from all [place] treatment facilities. Date/Time Radiology Report Provider Source December 14, 2024 07:49 AM CARD. STRESS TEST W/TREADMILL/...: ROBBIE HUANG [id number] -1940 M Exm Date: DECEMBER 14, 2024@07:49 Req Phys: FARHAT BRIGGS Pat Loc: [facility] 16-1 (Req'g Loc) Img Loc: NUCLEAR MEDICINE Service: Unknown [place] [id number] (Case [id number] COMPLETE)CARD. STRESS TEST W/TREADMILL/...(NM Detailed) CPT:41941 Reason for Study: SEE CLINICAL HISTORY Clinical History: [facility]? No Active Outpatient Medications (including [...] 14, 2024 Date Verified: DECEMBER 14, 2024 Corporate Communications Specialist E-Sig: Report: STUDY: GXT with vasodilator REPORT: [...] Staff: CHAO ORR APRN, Cardiology Verified by sheriffs for CHAO ORR /CHAO GIRON-CDD [facility] December 14, 2024 07:49 AM [id number] REGADENOSON 0.1MG X4 (LEXISCAN): ROBBIE HUANG [id number] -1940 M Exm Date: DECEMBER 14, 2024@07:49 Req Phys: FARHAT BRIGGS Loc: [facility] 16-1 (Req'g Loc) Img Loc: NUCLEAR MEDICINE Service: [place] [address] (Case [id number] COMPLETE)[id number] REGADENOSON 0.1MG X4 (STEPHON(NM Detailed) CPT:J2785 Reason for Study: SEE CLINICAL HISTORY Clinical History: Cardiology approval by: [facility] SERVICE CONNECTED? No Active Outpatient Medications [...] 14, 2024 Date Verified: DECEMBER 14, 2024 Corporate Communications Specialist E-Sig: Report: STUDY: GXT with vasodilator REPORT: [...] Staff: CHAO ORR APRN, Cardiology Verified by sheriffs for CHAO ORR /CHAO GIRON-D [facility] December 14, 2024 07:49 AM CARD. STRESS TEST W/TREADMILL/...: ROBBIE HUANG [id number] -1940 M Exm Date: DECEMBER 14, 2024@07:49 Req Phys: FARHAT BRIGGS Loc: [facility] 16-1 (Req'g Loc) Im Loc: NUCLEAR MEDICINE Service: [place] [address] (Case [id number] COMPLETE)CARD. STRESS TEST W/TREADMILL/...(NM Detailed) CPT:44142 Proc Modifiers : GXT Reason for Study: SEE CLINICAL HISTORY Clinical History: [facility]ED? No Active Outpatient Medications (including [...] 14, 2024 Date Verified: DECEMBER 14, 2024 Corporate Communications Specialist E-Sig: Report: [facility], [place], [place] STUDY: Regadenoson (Lexiscan) SPECT Tc-99m myoview [...] performed with tomographic and three-dimensional reconstructions with Team-Match NM/CT 640 system. Exercise: Patient exercised for [...] data sets in addition to the conventional seg-pgtrxnpnylp-eyybxzerb images. Both filtered back projection and iterative [...] ventricular cavity. 4. SPECT images: Attenuation-corrected and xxv-wbtplqxhmin-dyrgxcosm SPECT images were evaluated. SPECT images demonstrate [...] JEB SANTOS MD, CARDIOLOGY ATTENDING Verified by sheriffs for JEB SANTOS MD /JEB MANCILLA-CDD [facility] December 14, 2024 07:49 AM 86741(D) MYOCARDIA L SPECT(MULTIPLE): ROBBIE HUANG MICA [id number] -1940 M Exm Date: DECEMBER 14, 2024@07:49 Req Phys: FARHAT BRIGGS [facility] Im Loc: NUCLEAR MEDICINE Service: Unknown [place] [id number] (Case [id number] COMPLETE)95985(D) MYOCARDIAL SPECT(MULTIPL(NM Detailed) CPT:58486 Proc Modifiers : Lexiscan (Regadenoson) CPT Modifiers : 51 MULTIPLE PROCEDURES Reason for Study: SEE CLINICAL HISTORY Radiopharmaceutical: TC-99M TETROFOSMIN (MYOVIEW)-1, 5.5 mCi Adm'd on DECEMBER 14, 2024@07:45 by YENNY GAMBOA E Route [employer] Radiopharmaceutical: TC-99M TETROFOSMIN (MYOVIEW)-2, 16.5 mCi Adm'd on DECEMBER 14, 2024@09:53 by YENNY GAMBOA E Route [employer] Pharmaceutical: REGADENOSON 0.4MG/5ML INJ SYRINGE 5ML, 0.4 mg Adm'd on DECEMBER 14, 2024@09:53 by YENNY GAMBOA Clinical History: Cardiology approval by: [facility] SERVICE CONNECTED? No Active Outpatient Medications [...] 14, 2024 Date Verified: DECEMBER 14, 2024 Corporate Communications Specialist E-Sig: Report: [place], [place] STUDY: Regadenoson (Lexiscan) SPECT Tc-99m myoview [...] performed with tomographic and three-dimensional reconstructions with [employer]/CT 640 system. Exercise: Patient exercised for 6 [...] data sets in addition to the conventional aye-asncnizhfkn-pivfdbrig images. Both filtered back projection and iterative [...] ventricular cavity. 4. SPECT images: Attenuation-corrected and fuw-fcyarhddokj-pbsbhbnso SPECT images were evaluated. SPECT images demonstrate [...] JEB SANTOS MD, CARDIOLOGY ATTENDING Verified by sheriffs for JEB SANTOS MD /JEB MANCILLA-D [facility] December 14, 2024 07:49 AM MYOVIEW(1): ROBBIE HUANG MICA [id number] -1940 M Exm Date: DECEMBER 14, 2024@07:49 Req Phys: FARHAT BRIGGS Loc: [facility] 16-1 (Req'g Loc) Img Loc: NUCLEAR MEDICINE Service: Unknown [place] [id number] (Case [id number] COMPLETE)MYOVIEW(1) (NM Detailed) CPT:A9502 Reason for Study: [...] 14, 2024 Date Verified: DECEMBER 14, 2024 Corporate Communications Specialist E-Sig: Report: [facility] [place], [place] STUDY: Regadenoson (Lexiscan) SPECT Tc-99m myoview [...] performed with tomographic and three-dimensional reconstructions with Team-Match NM/CT 640 system. Exercise: Patient exercised for [...] data sets in addition to the conventional clt-jckihcfeaql-kxhwbtwzn images. Both filtered back projection and iterative [...] ventricular cavity. 4. SPECT images: Attenuation-corrected and vgb-xkoahjvvjtp-ixnxloqrt SPECT images were evaluated. SPECT images demonstrate [...] JEB SANTOS MD, CARDIOLOGY ATTENDING Verified by sheriffs for JEB SANTOS MD /JEB MANCILLA-CDD [facility] December 14, 2024 07:49 AM [id number] REGADENOSON 0.1MG X1 (LEXISCAN): ROBBIE HUANG MICA [id number] 1940 M Ex Date: DECEMBER 14, 2024@07:49 Req Phys: FARHAT BRIGGS Pat Loc: [facility] 16-1 (Req'g Loc) Img Loc: NUCLEAR MEDICINE Service: [place] [address] (Case [id number] COMPLETE)[id number] REGADENOSON 0.1MG X1 (STEPHON(NM Detailed) CPT:J2785 [...] 14, 2024 Date Verified: DECEMBER 14, 2024 Corporate Communications Specialist E-Sig: Report: [facility], [place] STUDY: Regadenoson (Lexiscan) SPECT Tc-99m myoview [...] performed with tomographic and three-dimensional reconstructions with Team-Match NM/CT 640 system. Exercise: Patient exercised for [...] data sets in addition to the conventional nio-uynsdvusjmv-manblhdfq images. Both filtered back projection and iterative [...] ventricular cavity. 4. SPECT images: Attenuation-corrected and keu-yrgwkblhgrn-xkxwjyetq SPECT images were evaluated. SPECT images demonstrate [...] LVEF is 29%. Participating Fellow: Juan R Caldarera, M.D. COMMUNICATION: Per this written report. ATTESTATION: I have personally reviewed the electrocardiograms and SPECT images with the participating physicians and agree with the report. Primary Diagnostic Code: SIGNIFICANT ABNORMALITY, ATTN NEEDED Primary Interpreting Staff: JEB SANTOS MD, CARDIOLOGY ATTENDING Verified by sheriffs for JEB SANTOS MD /JEB MANCILLA-CDD [facility] December 14, 2024 07:49 AM MYOVIEW(2): ROBBIE HUANG [id number] -1940 M Exm Date: DECEMBER 14, 2024@07:49 Req Phys: FARHAT BRIGGS Loc: [facility] 16-1 (Req'g Loc) Img Loc: NUCLEAR MEDICINE Service: [place] [address] (Case [id number] COMPLETE)MYOVIEW(2) (NM Detailed) CPT:A9502 Reason for Study: [...] 14, 2024 Date Verified: DECEMBER 14, 2024 Corporate Communications Specialist E-Sig: Report: [place] STUDY: Regadenoson (Lexiscan) SPECT Tc-99m myoview [...] performed with tomographic and three-dimensional reconstructions with [employer]/CT 640 system. Exercise: Patient exercised for 6 [...] data sets in addition to the conventional uen-ljshcyvxair-ocnvtaito images. Both filtered back projection and iterative [...] ventricular cavity. 4. SPECT images: Attenuation-corrected and jfh-jeksmjpscwi-auvifdebs SPECT images were evaluated. SPECT images demonstrate [...] JEB SANTOS MD, CARDIOLOGY ATTENDING Verified by sheriffs for JEB SANTOS MD /JEB MANCILLA-CDD [facility] December 14, 2024 07:49 AM TC-99M X1 FROM NON -HEU SOURCE: ROBBIE HUANG MICA [id number] -1940 M Exm Date: DECEMBER 14, 2024@07:49 Req Phys: FARHAT BRIGGS [facility] Im Loc: NUCLEAR MEDICINE Service: [place] [address] (Case [id number] COMPLETE)TC-99M X1 FROM NON-HEU SOURCE (NM Detailed) [...] 14, 2024 Date Verified: DECEMBER 14, 2024 Corporate Communications Specialist E-Sig: Report: [facility], [place] STUDY: Regadenoson (Lexiscan) SPECT Tc-99m myoview [...] performed with tomographic and three-dimensional reconstructions with Team-Match NM/CT 640 system. Exercise: Patient exercised for [...] data sets in addition to the conventional qjm-lllcvzuhdxh-kvxoxwrbl images. Both filtered back projection and iterative [...] ventricular cavity. 4. SPECT images: Attenuation-corrected and oub-dxsidqljqrm-iajzijcza SPECT images were evaluated. SPECT images demonstrate [...] JEB SANTOS MD, CARDIOLOGY ATTENDING Verified by sheriffs for JEB SANTOS MD /JEB MANCILLA-CDD [facility] December 14, 2024 07:49 AM [id number] REGADENOSON 0.1MG X2 (LEXISCAN): ROBBIE HUANG [id number] -1940 M [facility] Date: DECEMBER 14, 2024@07:49 Req Phys: FARHAT BRIGGS Pat Loc: [facility] 16-1 (Req'g Loc) Img Loc: NUCLEAR MEDICINE Service: Unknown [place] [id number] (Case [id number] COMPLETE)[id number] REGADENOSON 0.1MG X2 (STEPHON(NM Detailed) CPT:J2785 [...] 14, 2024 Date Verified: DECEMBER 14, 2024 Corporate Communications Specialist E-Sig: Report: [facility], [place] STUDY: Regadenoson (Lexiscan) SPECT Tc-99m myoview [...] performed with tomographic and three-dimensional reconstructions with Team-Match NM/CT 640 system. Exercise: Patient exercised for [...] data sets in addition to the conventional yhi-umjajdkuoar-jhowgejfp images. Both filtered back projection and iterative [...] ventricular cavity. 4. SPECT images: Attenuation-corrected and zzx-gmlhlyqqmhi-jjxhjuilq SPECT images were evaluated. SPECT images demonstrate [...] JEB SANTOS MD, CARDIOLOGY ATTENDING Verified by sheriffs for JEB SANTOS MD /JEB MANCILLA-CDD [facility] December 14, 2024 07:49 AM [id number] REGADENOSON 0.1MG X3 (LEXISCAN): ROBBIE HUANGALEM [id number] -1940 M Exm Date: DECEMBER 14, 2024@07:49 Req Phys: FARHAT BRIGGS Pat Loc: [facility] 16-1 (Req'g Loc) Img Loc: NUCLEAR MEDICINE Service: [place] [address] (Case [id number] COMPLETE)[id number] REGADENOSON 0.1MG X3 (STEPHON(NM Detailed) CPT:J2785 [...] 14, 2024 Date Verified: DECEMBER 14, 2024 Corporate Communications Specialist E-Sig: Report: [place] STUDY: Regadenoson (Lexiscan) SPECT Tc-99m myoview [...] performed with tomographic and three-dimensional reconstructions with [employer] [place] NM/CT 640 system. Exercise: Patient exercised for [...] data sets in addition to the conventional fby-meastzjaquo-ktofhxujp images. Both filtered back projection and iterative [...] ventricular cavity. 4. SPECT images: Attenuation-corrected and ohd-ofvbwmpipru-xtwpqdxmy SPECT images were evaluated. SPECT images demonstrate [...] JEB SANTOS MD, CARDIOLOGY ATTENDING Verified by sheriffs for JEB SANTOS MD /JEB MANCILLA-D [facility] December 14, 2024 07:49 AM TC-99M X2 FROM NON -HEU SOURCE: ROBBIE HUANG MICA [id number] -1940 M Ex Date: DECEMBER 14, 2024@07:49 Req Phys: FARHAT BRIGGS Loc: [facility] 16-1 (Req'g Loc) [facility] Loc: NUCLEAR MEDICINE Service: [place] [address] (Case [id number] COMPLETE)TC-99M X2 FROM NON-HEU SOURCE (NM Detailed) [...] 14, 2024 Date Verified: DECEMBER 14, 2024 Corporate Communications Specialist E-Sig: Report: [facility], [place], [place] STUDY: Regadenoson (Lexiscan) SPECT Tc-99m myoview [...] performed with tomographic and three-dimensional reconstructions with Team-Match NM/CT 640 system. Exercise: Patient exercised for [...] data sets in addition to the conventional mzj-uxxavuvoimh-ritorvlcr images. Both filtered back projection and iterative [...] ventricular cavity. 4. SPECT images: Attenuation-corrected and lht-qsliwpwbpeg-izebbgmgr SPECT images were evaluated. SPECT images demonstrate [...] JEB SANTOS MD, CARDIOLOGY ATTENDING Verified by sheriffs for JEB SANTOS MD /JEB MANCILLA-Bina [facility] Encounter Notes: All associated encounter notes This section contains the clinical notes associated to the Encounter. Date/Time Encounter Note(s) Provider Source December 06, 2024 02:06 PM ADDENDUM: LOCAL TITLE: Addendum STANDARD TITLE: ADDENDUM DATE OF NOTE: DECEMBER 06, 2024@14:06:07 ENTRY DATE: DECEMBER 06, 2024@14:06:08 AUTHOR: FARHAT BRIGGS EXP COSIGNER: URGENCY: STATUS: COMPLETED ECHO similar to prior in 2022 with CHF with reduced EF, recently symptomatic. Will set up for cardiology consult along with stress test for further eval. /jack/ Farhat Briggs MD Primary Care Attending Signed: 12/06/2024 14:06 Receipt Acknowledged By: 12/07/2024 09:27 /jack/ JAIME VICENTE, RN PC ASSISTANT TO THE CEO --- Original Document --- 12/03/24 PC PROGRESS NOTE: ID: ROBBIE HUANG JR is a 84 year old WHITE MALE Patient's agenda/concerns: episodic for BLE edema and LOO X 2 weeks. CC: SUBJECTIVE: Pt states that past couple weeks he has had sudden swelling of his legs up to his knees and change in previous tolerance to exercise. States normally walked regularly for exercise and suddenly very fatigued and SOB just walking up the driveway. States kidney doctor had seen a little swelling in his ankles when saw him but the big amounts came on very suddenly. States hasn't changed his meds at all. No foamy urine. No nighttime orthopnea. Outside providers? [facility]ist? 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 ([facility] 575150) J30.9 Allergic rhinitis ([facility] 05370127) 799.9 History of rheumatic fever (ICD-9-CM 799.9) V16.0 Family h/o Cancer of GI Tract (ICD-9-CM V16.0) I25.10 Coronary artery disease ([facility] 71150835) E78.00 Pure hypercholesterolemia ([facility] 664073458) MEDS Active Outpatient Medications (including Supplies): EMPAGLIFLOZIN 10MG TAB TAKE ONE TABLET BY MOUTH EVERY ACTIVE MORNING PROTEINURIA Non-VA AMLODIPINE BESYLATE 10MG TAB 10MG MOUTH DAILY ACTIVE Indication: FOR BLOOD PRESSURE/HEART Non-VA CHOLECALCIF 25MCG (D3-1,000UNIT) TAB 1000UNIT MOUTH ACTIVE DAILY Non-VA CLOPIDOGREL BISULFATE 75MG TAB 75MG MOUTH DAILY ACTIVE Indication: TO THIN BLOOD Non-VA MULTIVIT/OPHTH AREDS2/LUTE/ZEAX CAP/TAB 1 SOFTGEL ACTIVE MOUTH TWICE A DAY AFTER MEALS Non-VA ROSUVASTATIN TAB 10MG MOUTH DAILY ACTIVE Indication: FOR CHOLESTEROL 6 Total Medications ALLERGIES: ASPIRIN, ATORVASTATIN ROS: General: ++fatigue X 2 weeks. CVS: +LOO Resp:+SOB M/S: +BLE edema OBJECTIVE: Vital Signs PULSE: 62 (12/03/2024 13:07) TPR: 97.3 F [36.3 C] (12/03/2024 13:07) BP: 131/67 (12/03/2024 13:07) RESP: 18 (06/26/2024 14:06) Pain: 0 (12/03/2024 13:07) Weight: 186 lb [84.37 kg] (12/03/2024 13:07) General: Awake, alert in nad Skin:warm and dry Heart: distant, RR, no noted murmur Lungs: Bibasilar inspiratory crackles, otherwise no exp crackles, no wheezing, good air exchange Ext:no digital ulcerations of fingers or toes Feet: 2-3+ BLE to knees bilaterally Neuro:speech and gait intact Pysch: Mood-pleasant; Insight-intact; Judgement-good; affect-normal Labs: will get labs Imaging: none today Review of records: I have reviewed previous pc note and recent rheum and renal Assessment/Plan: 1. Other Forms of Dyspnea X 2 weeks acute onset. -check BNP -this doesn't look like heart failure on exam however -ECHO for pulm HTN eval or other new findings -econsult to cardiology for nuclear stress with his CAD hx -consider repeat PFTs/HRCT with his ILD for changes -EKG unchanged today 2. Localized Edema -repeat rheum eval for systemic sclerosis autoantibodies -UA and spot protein level -spep with ROSALIE and upep -cbc and diff -p5 -if above w/u neg, will check ABIs/venous duplex for insufficiency Health Maintanance/Preventative medicine exam The /caregiver voiced understanding of topics covered/discussed in today's visit. The Outpatient Essential Medication List for review (EMLR) was reviewed with the patient/caregiver and the patient was provided or refused an updated reconciled medication list Discrepancies were corrected or sent to the ordering provider to correct ( ) /caregiver not given a copy of EMLR ( ) /caregiver declined a copy of EMLR ( x ) [place]/caregiver was handed a copy of EMLR at todays visit ( ) /caregiver requests copy of EMLR to be mailed to them at their address (verify address on file) ( ) [place]/caregiver requests copy of EMLR to be sent to them via Secure Messaging (must have My [employer] account) I spent 45 minutes today reviewing last visit notes, evaluating and managing the patients conditions, placing a consult to cardiology and documenting clinical info in health record and ordering labs, discussing tests and imaging possibility. RTC: as scheduled and prn Labs to be ordered at next visit: nonfasting a1c, microalbumin/cr, tsh, panel 5 and lipids. /es/ Farhat Briggs MD Primary Care Attending Signed: 12/03/2024 13:55 FARHAT BRIGGS [facility] December 03, 2024 01:55 PM MEDICATION MGT NOTE: LOCAL TITLE: OUTPATIENT ESSENTIAL MEDICATION LIST FOR REVIEW (EM STANDARD TITLE: MEDICATION MGT NOTE DATE OF NOTE: DECEMBER 03, 2024@13:55 ENTRY DATE: DECEMBER 03, 2024@13:55:33 AUTHOR: FARHAT BRIGGS EXP COSIGNER: URGENCY: STATUS: COMPLETED Review of medications include: Patient allergies (Remote and Local) and active and pending prescriptions dispensed from this [place] (local) and dispensed from another [place] or [facility] facility (remote and pending) as well as local inpatient orders (pending and active) and clinic medications (IMOs), locally documented non-VA medications and local prescriptions that have or been discontinued in the past 90 days. With the exception of Allergies, if a category is not listed below, it means there were no relevant medications for the patient. ALLERGIES: ASPIRIN, ATORVASTATIN No Remote Allergy/ADR Data available for this patient ACTIVE OUTPATIENT MEDICATIONS LOCAL/REMOTE EMPAGLIFLOZIN 10MG TAB Directions: TAKE ONE TABLET BY MOUTH EVERY MORNING PROTEINURIA Quantity: 90 for 90 days Issued: 12/06/23 Filled: 08/22/24 Expires: 12/06/24 Refills: 0 Status: ACTIVE No remote medications found. PENDING OUTPATIENT MEDICATIONS (LOCAL/REMOTE): No local medications found. No remote [...] CLINIC MEDICATIONS (LOCAL): No local medications found. /jack/ Farhat Briggs MD Primary Care Attending Signed: 12/03/2024 13:55 FARHAT BRIGGS [facility] December 03, 2024 01:29 PM PRIMARY CARE NOTE: LOCAL TITLE: PC PROGRESS NOTE STANDARD TITLE: PRIMARY CARE NOTE DATE OF NOTE: DECEMBER 03, 2024@13:29 ENTRY DATE: DECEMBER 03, 2024@13:29:53 AUTHOR: FARHAT BRIGGS COSIGNER: URGENCY: STATUS: COMPLETED PC PROGRESS NOTE Has ADDENDA ID: RBOBIE HUANG JR is a 84 year old WHITE MALE Patient's agenda/concerns: episodic for BLE edema and LOO X 2 weeks. CC: SUBJECTIVE: Pt states that past couple weeks he has had sudden swelling of his legs up to his knees and change in previous tolerance to exercise. States normally walked regularly for exercise and suddenly very fatigued and SOB just walking up the driveway. [facility] kidney doctor had seen a little swelling in his ankles when saw him but the big amounts came on very suddenly. States hasn't changed his meds at all. No foamy urine. No nighttime orthopnea. Outside providers? [facility]ist? [facility]: Code Description Z79.02 Long-term current use of antiplatelet drug ([facility] [id number]) N13.39 History of calculus of kidney ([facility] 325590304) R69. 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 ([facility] 976183) J30.9 Allergic rhinitis ([facility] 96135510) 799.9 History of rheumatic fever (ICD-9-CM 799.9) V16.0 Family h/o Cancer of GI Tract (ICD-9-CM V16.0) I25.10 Coronary artery disease ([facility] 66840499) E78.00 Pure hypercholesterolemia ([facility] 595290274) MEDS Active Outpatient Medications (including Supplies): EMPAGLIFLOZIN 10MG TAB TAKE ONE TABLET BY MOUTH EVERY ACTIVE MORNING PROTEINURIA Non-VA AMLODIPINE BESYLATE 10MG TAB 10MG MOUTH DAILY ACTIVE Indication: FOR BLOOD PRESSURE/HEART Non-VA CHOLECALCIF 25MCG (D3-1,000UNIT) TAB 1000UNIT MOUTH ACTIVE DAILY Non-VA CLOPIDOGREL BISULFATE 75MG TAB 75MG MOUTH DAILY ACTIVE Indication: TO THIN BLOOD Non-VA MULTIVIT/OPHTH AREDS2/LUTE/ZEAX CAP/TAB 1 SOFTGEL ACTIVE MOUTH TWICE A DAY AFTER MEALS Non-VA ROSUVASTATIN TAB 10MG MOUTH DAILY ACTIVE Indication: FOR CHOLESTEROL 6 Total Medications ALLERGIES: ASPIRIN, ATORVASTATIN ROS: General: ++fatigue X 2 weeks. CVS: +LOO Resp:+SOB M/S: +BLE edema OBJECTIVE: Vital Signs PULSE: 62 (12/03/2024 13:07) TPR: 97.3 F [36.3 C] (12/03/2024 13:07) BP: 131/67 (12/03/2024 13:07) RESP: 18 (06/26/2024 14:06) Pain: 0 (12/03/2024 13:07) Weight: 186 lb [84.37 kg] (12/03/2024 13:07) General: Awake, alert in nad Skin:warm and dry Heart: distant, RR, no noted murmur Lungs: Bibasilar inspiratory crackles, otherwise no exp crackles, no wheezing, good air exchange Ext:no digital ulcerations of fingers or toes Feet: 2-3+ BLE to knees bilaterally Neuro:speech and gait intact Pysch: Mood-pleasant; Insight-intact; Judgement-good; affect-normal Labs: will get labs Imaging: none today Review of records: I have reviewed previous pc note and recent rheum and renal Assessment/Plan: 1. Other Forms of Dyspnea X 2 weeks acute onset. -check BNP -this doesn't look like heart failure on exam however -ECHO for pulm HTN eval or other new findings -econsult to cardiology for nuclear stress with his CAD hx -consider repeat PFTs/HRCT with his ILD for changes -EKG unchanged today 2. Localized Edema -repeat rheum eval for systemic sclerosis autoantibodies -UA and spot protein level -spep with ROSALIE and upep -cbc and diff -p5 -if above w/u neg, will check ABIs/venous duplex for insufficiency Health Maintanance/Preventative medicine exam The /caregiver voiced understanding of topics covered/discussed in today's visit. The Outpatient Essential Medication List for review (EMLR) was reviewed with the patient/caregiver and the patient was provided or refused an updated reconciled medication list Discrepancies were corrected or sent to the ordering provider to correct ( ) [place]/caregiver not given a copy of EMLR ( ) /caregiver declined a copy of EMLR ( x ) [place]/caregiver was handed a copy of EMLR at todays visit ( ) /caregiver requests copy of EMLR to be mailed to them at their address (verify address on file) ( ) /caregiver requests copy of EMLR to be sent to them via Secure Messaging (must have My [employer] account) I spent 45 minutes today reviewing last visit notes, evaluating and managing the patients conditions, placing a consult to cardiology and documenting clinical info in health record and ordering labs, discussing tests and imaging possibility. RTC: as scheduled and prn Labs to be ordered at next visit: nonfasting a1c, microalbumin/cr, tsh, panel 5 and lipids. /jack/ Farhat Briggs MD Primary Care Attending Signed: 12/03/2024 13:55 12/06/2024 ADDENDUM STATUS: COMPLETED ECHO similar to prior in 2022 with CHF with reduced EF, recently symptomatic. Will set up for cardiology consult along with stress test for further eval. /jack/ Farhat Briggs MD Primary Care Attending Signed: 12/06/2024 14:06 Receipt Acknowledged By: * AWAITING SIGNATURE * JAIME STEVE CHANDRA R [facility] December 03, 2024 01:01 PM PRIMARY CARE NURSING NOTE: LOCAL TITLE: Health Tech/ec teacher Note STANDARD TITLE: PRIMARY CARE NURSING NOTE DATE OF NOTE: DECEMBER 03, 2024@13:01 ENTRY DATE: DECEMBER 03, 2024@13:01:14 AUTHOR: IRAJ WOOD COSIGNER: URGENCY: STATUS: COMPLETED The patient was given a list of his current medications, instructed to review and discuss any changes or problems with their provider. Patient advised to carry a list of current medications and any allergies with them in the event of emergency situations. Yes - /Caregiver verbalized understanding of topics discussed and education provided COVID-19 Immunization: Refused Moderna Monovalent COVID-19 vaccine Immunization: COVID-19 (MODERNA), MRNA, LNP-S, PF, 50 MCG/0.5 ML (AGES 12+ YEARS) Refusal Reason: PATIENT DECISION Patient refuses all immunization(s) in the COVID-19 group Date Documented: 12/03/24 13:03 Alcohol Use Screen (AUDIT-C): Alcohol Screen: SCREEN FOR ALCOHOL (AUDIT-C) An alcohol screening test (AUDIT-C) was negative (score=0). 1. How often did you have a drink containing alcohol in the past year? Consider a drink to be a 12 ounce can or bottle of regular beer, 8 ounces of malt liquor, a 5 ounce glass of table wine, or a 1.5 ounce shot of liquor (like scotch, gin, or vodka). Never 2. How many drinks containing alcohol did you have on a typical day when you were drinking in the past year? Response not required due to responses to other questions. 3. How often did you have six or more drinks on one occasion in the past year? Response not required due to responses to other questions. Depression Screening: Perform PHQ-2 A PHQ-2 screen was performed. The score was 0 which is a negative screen for depression. Over the past two weeks, how often have you been bothered by the following problems? 1. Little interest or pleasure in doing things Not at all 2. Feeling down, depressed, or hopeless Not at all Suicide Screen: C-SSRS Screening [place]-Suicide Severity Rating Scale (C-SSRS Screener) 1. Over the past month, have you wished you were or wished you could go to sleep and not wake up? No 2. Over the past month, have you had any actual thoughts of killing yourself? No 3. Over the past month, have you been thinking about how you might do this? Response not required due to responses to other questions. 4. Over the past month, have you had these thoughts and had some intention of acting on them? Response not required due to responses to other questions. 5. Over the past month, have you started to work out or worked out the details of how to kill yourself? Response not required due to responses to other questions. 6. If yes, at any time in the past month did you intend to carry out this plan? Response not required due to responses to other questions. 7. In your lifetime, have you ever done anything, started to do anything, or prepared to do anything to end your life (for example, collected pills, obtained a gun, gave away valuables, went to the roof but didn't jump)? No 8. If YES, was this within the past 3 months? Response not required due to responses to other questions. /jack/ IRAJ WOOD INTERMEDIATE CUSTOM FURRIER Signed: 12/03/2024 13:05 IRAJ WOOD [facility]
--- OUTSIDE RECORDS SUMMARY | 2024-12-03 09:26 | XMS_ITS | Encounter Summary ---
Author Name [facility] [place] [facility] [place] Address [address] [place] [address] Care Team Providers Care Two Way Radio Technician Name Role Phone JORDYN DALIA Primary Care [...] Asif's Name Patient's Relationship to Policy Asif [facility] [place] BLUECARD MEDICARE SECONDARY (NO B EXC) TI AUTOM OTIVE - RETI Jul 25, 2018 [id number] TI KAMARA SPOUSE MEDICARE (WNR) MEDICARE (M) PART B Jan 22, 2007 PART B [id number] JUSTYNA HUANG RGE PATIENT MEDICARE (WNR) MEDICARE (M) PART A Sep 22, 2005 PART A [id number] MALUJUSTYNA TINAJERO PATIENT FOR LIFE TRICA RE FOR LIFE Jul 25, 2017 FOR LIFE [id number] REINA ROBBIE PATIENT Selected Encounter This section includes the information on record at [place] for the Encounter. Date/Time Encounter Type Encounter Description Reason Pro vider Source December 03, 2024 01:26 PM Outpatient Encounter EKG IHE Encounter Template Text not used by [place] Plan of Treatment: Future Appointments (+ 6 months) and Future Tests (+/- 45 days) The Plan of Treatment section includes future care activities for the patient [facility] [place] [facility] This section includes future appointments and future orders which are active, pending or scheduled. Future Appointments This section includes appointments that were scheduled to occur 6 months from the date of the Encounter, up to a maximum of 20 appointments. The data comes from all [facility]. Appointment Date/Time Appointment Type Appointme nt Facility Name December 06, 2024 12:15 PM AMBUL[facility]ORY [facility]INE [facility] December 14, 2024 08:00 AM AMBULATORY - NONE [place] [facility] Jan 04, 2025 01:30 PM AMBUL[facility]ORY - SURGERY [place] [facility] Jan 31, 2025 03:00 PM [facility] Feb 05, 2025 01:00 PM [facility] - MEDICINE [facility] Feb 05, 2025 02:00 PM AMBULATORY [...] of theEncounter. The data comes from all [facility]. Test Date/Time Test Type Test Details Facility Name Jan 04, 2025 12:00 AM Imaging - Vascular Lab Order SEG[facility] PR[facility] Jan 04, 2025 12:00 AM Imaging - Vascular Lab Order VENOUS DUPLEX LOWER EXT [facility] Lab Results: +/- 30 days of the encounter This section includes the Chemistry and Hematology Lab Results on record with [place] for the patient. Radiology Reports and Pathology Reports are provided separately, in subsequent sections. Lab Results This section contains the Chemistry/Hematology Results that were resulted 30 days before or 30 daysafter the date of the Encounter. Date/Time Source Result Type Result - Unit Interpretation Reference Range Specimen Type Comment December 03, 2024 02:03 PM [facility] PROTEIN ELECTROPHORESIS URINE Specimen Type: URINE No comment entered. Ordering Provider: DALIA COBB Report Released Date/Time: December 03, 2024 01:24 PM Reporting Lab: [address] [address] Performing Lab: [address] [address] TOTAL PROTEIN 17.0 mg/dL Not Estab. .ALBUMIN ELEC 29.4 .ALPHA 1 ELEC 5.2 .ALPHA 2 ELEC 21.5 .BETA ELEC 19.7 .GAMMA ELEC 24.2 .M-SPIKE Not Observed Not Observed December 03, 2024 02:03 PM [facility] TOTAL PROTEIN URINE Specimen Type: URINE No comment entered. Ordering Provider: DALIA COBB Report Released Date/Time: December 03, 2024 01:24 PM Reporting Lab: [address] [address] Performing Lab: [address] [address] TOTAL PROTEIN 16 mg/dL H 0-14 December 03, 2024 02:03 PM [facility] CREATININE URINE Specimen Type: URINE No comment entered. Ordering Provider: DALIA COBB Report Released Date/Time: December 03, 2024 01:24 PM Reporting Lab: [address] [address] Performing Lab: [address] [address] CREATININE 63.6 mg/dL December 03, 2024 02:03 PM [facility] URINALYSIS URINE Specimen Type: URINE Comment: Microscopic not indicated Ordering Provider: DALIA COBB Report Released Date/Time: December 03, 2024 01:29 PM Reporting Lab: [address] [address] Performing Lab: [address] [address] URINE COLOR Light Yellow Colorless-Yello w APPEARANCE Clear Clear UROBILINOGEN Normal mg/dL Normal URINE BLOOD Negative Negative URINE BILIRUBIN Negative Negative URINE KETONES Negative mg/dL Negative URINE PROTEIN Negative mg/dL Negative-Tr rachell URINE PH 5.0 4.5-8.0 URINE NITRITE Negative Negative URINE LEUKOCYTE EST Negative Negative SPECIFIC GRAVITY 1.014 1.005-1.030 URINE GLUCOSE >1000 mg/dL H Negative December 03, 2024 01:45 PM [facility] ANTI-NUCLEAR Ab SERUM Specimen Type: SERUM Comment: Atypical speckled resembling DFS (Dense-Fine Speckled. The DFS pattern has a low prevalence in systemic autoimmune rheumatic diseases. The clinical association remains unclear. Due to its close resemblance to other patterns of clinical relevance, (i.e. Homogeneous, speckled, and mixed patterns) follow-up testing may be recommended. ANTI-NUCLEAR Ab reported incorrectly as Atypical Speckled by [[id number]]. Changed to 1:320 Atypical Speckled on December 06, 2024@12:59 by [[id number]]. Ordering Provider: DALIA COBB Report Released Date/Time: December 03, 2024 01:38 PM Reporting Lab: [address] [address] Performing Lab: [address] [address] ANTI-NUCLEAR Ab 1:320 Atypical Speckled <1:80 December 03, 2024 01:45 PM [facility] ROSALIE (SERUM) SERUM Specimen Type: SERUM Comment: BNP results less than or equal to 100 pg/ml are associate sales representative of normal values in patients without CHF. BNP results greater than 100 pg/ml are considered abnormal and suggestive of CHF. Higher BNP concentrations in the first 72 hours after Acute Coronary Syndrome are associated with an increased risk of , myocardial infarction and CHF. Ordering Provider: DALIA COBB Report Released Date/Time: December 03, 2024 01:24 PM Reporting Lab: [address] [address] Performing Lab: [address] [address] .ALBUMIN ELEC 3.6 g/dL 2.9-4.4 .ALPHA 1 [...] INTERPRETATION Comment December 03, 2024 01:45 PM [facility] JORDAN SCREEN SERUM Specimen Type: SERUM No comment entered. Ordering Provider: DALIA COBB Report Released Date/Time: December 03, 2024 01:38 PM Reporting Lab: [address] [address] Performing Lab: [address] [address] JORDAN SCREEN Negative Negative December 03, 2024 01:45 PM [facility] BNP ([employer]) PLASMA Specimen Type: PLASMA Comment: BNP results less than or equal to 100 pg/ml are associate sales representative of normal values in patients without CHF. BNP results greater than 100 pg/ml are considered abnormal and suggestive of CHF. Higher BNP concentrations in the first 72 hours after Acute Coronary Syndrome are associated with an increased risk of , myocardial infarction and CHF. Ordering Provider: DALIA COBB Report Released Date/Time: December 03, 2024 01:24 PM Reporting Lab: [address] [address] Performing Lab: [address] [address] BNP (MCCALL) 225 pg/mL H 0-100 December 03, 2024 01:45 PM [facility] CK TOTAL PLASMA Specimen Type: PLASM A [...] December 03, 2024 01:33 PM Reporting Lab: [address] [address] Performing Lab: [address] [address] CK TOTAL 76 U/L 30-200 December 03, 2024 01:45 PM [facility] PANEL 5 PLASMA Specimen Type: PLASM A [...] December 03, 2024 01:24 PM Reporting Lab: [address] [address] Performing Lab: [address] [address] CREATININE 2.05 mg/dL H 0.72-1.25 UREA NITROGEN [...] (CKD-EPI) 31 December 03, 2024 01:45 PM [facility] CBC/PLT BLOOD Specimen Type: BLOOD No comment entered. Ordering Provider: DALIA COBB Report Released Date/Time: December 03, 2024 01:33 PM Reporting Lab: [place] [phone] Performing Lab: [place] [phone] WBC 5.6 10*3/uL 5.0-10.0 RBC 4.24 10*6/uL L 4.6-6.2 HGB 12.8 g/dL L 14.0-18.0 HCT 39.4 L 42.0-52.0 MCV 92.9 fL 80.0-94.0 MCH 30.2 pg 27.0-31.0 MCHC 32.5 g/dL 32.0-36.0 PLT 248 10*3/uL 150-450 MPV 10.2 fL 9.0-13.1 RDW 14.2 11.0-16.0 NRBC 0.0 0.0-0.0 December 03, 2024 01:45 PM [facility] AUTOMATED DIFF BLOOD Specimen Type: BLOOD No comment entered. Ordering Provider: DALIA COBB Report Released Date/Time: December 03, 2024 01:33 PM Reporting Lab: [address] [address] Performing Lab: [place] [phone] A-LYMPH % 22.1 L 24.0-44.0 A-MONO % [...] and tobacco- related health factors from the [place] facility where the Encounter took place. Current Smoking Status This section includes the most current smoking, or tobacco-related health factor, from the [place] facility where the Encounter took place. Date/Time Current Smoking Status Comment Kelechi dial May 10, 2024 02:00 PM VA-TOBACCO NEVER USED [facility] Tobacco Use History This section includes a history of the smoking, or tobacco-related health factors, that were collected on or before the date of the Encounter. The data comes from the [place] facility where the Encounter took place. Date/Time Smoking Status/Tobacco Use Comment Ricardo dudley May 19, 2017 03:22 AM NON-TOBACCO USE INPATIENT [facility] Sep 07, 2016 02:41 AM NON-TOBACCO USE INPATIENT [facility] Apr 21, 2004 08:29 AM HF V9 CURRENT NON-SMOKER quit smoking about 30 yrs ago [facility] Sep 06, 2002 02:26 PM HF V9 CURRENT NON-SMOKER QUIT SMOKING ABOUT 31 YRS AGO [facility] Radiology Reports: +/- 30 days of [...] the Encounter. The data comes from all [place] treatment facilities. Date/Time Radiology Report Provider Source December 14, 2024 07:49 AM CARD. STRESS TEST W/TREADMILL/...: ROBBIE HUANG [id number] -1940 M Exm Date: DECEMBER 14, 2024@07:49 Req Phys: DALIA COBB Pat Loc: [facility] 16-1 (Req'g Loc) Img Loc: NUCLEAR MEDICINE Service: Unknown [place] [id number] (Case [id number] COMPLETE)CARD. STRESS TEST W/TREADMILL/...([place] Detailed) CPT:19568 Reason for Study: SEE CLINICAL HISTORY Clinical [...] 14, 2024 Date Verified: DECEMBER 14, 2024 Special Delivery Carrier E-Sig: Report: STUDY: GXT with vasodilator REPORT: [...] Staff: CHAO ORR APRN, Cardiology Verified by certified alcohol counselor for CHAO ORR /CHAO GIRON-CDD [facility] December 14, 2024 07:49 AM [id number] REGADENOSON 0.1MG X4 (LEXISCAN): REINAROBBIE [id number] -1940 M Exm Date: DECEMBER 14, 2024@07:49 Req Phys: DALIA COBB Loc: [facility] 16-1 (Req'g Loc) Img Loc: NUCLEAR MEDICINE Service: Unknown [place] [id number] (Case [id number] COMPLETE)[id number] REGADENOSON 0.1MG X4 (STEPHON([place] Detailed) CPT:J2785 Reason for Study: SEE CLINICAL HISTORY Clinical History: Cardiology approval by: [facility] SERVICE CONNECTED? No Active Outpatient Medications [...] 14, 2024 Date Verified: DECEMBER 14, 2024 Special Delivery Carrier E-Sig: Report: STUDY: GXT with vasodilator REPORT: Patient exercised for 6:00 on the Chnao protocol to a sub-maximal HR of 108 [...] Staff: CHAO ORR APRN, Cardiology Verified by certified alcohol counselor for CHAO ORR /CHAO GIRON-D [facility] December 14, 2024 07:49 AM CARD. STRESS TEST W/TREADMILL/...: ROBBIE HUANG [id number] -1940 M Exm Date: DECEMBER 14, 2024@07:49 Req Phys: DALIA COBB Loc: [facility] WHITNEY 16-1 (Req'g Loc) Im Loc: NUCLEAR MEDICINE Service: [place] [address] (Case [id number] COMPLETE)CARD. STRESS TEST W/TREADMILL/...([place] Detailed) CPT:89788 Proc Modifiers : GXT Reason for Study: SEE CLINICAL HISTORY Clinical History: Cardiology approval by: [facility] SERVICE CONNECTED? No Active Outpatient Medications [...] 14, 2024 Date Verified: DECEMBER 14, 2024 Special Delivery Carrier E-Sig: Report: [facility], [place], [place] STUDY: Regadenoson (Lexiscan) SPECT Tc-99m myoview [...] performed with tomographic and three-dimensional reconstructions with studdex NM/CT 640 system. Exercise: Patient exercised for [...] data sets in addition to the conventional rkj-vijxnoswuxi-rearrriyu images. Both filtered back projection and iterative [...] ventricular cavity. 4. SPECT images: Attenuation-corrected and xek-gmwlvuaxjbd-qwwuvelbw SPECT images were evaluated. SPECT images demonstrate [...] JEB SANTOS MD, CARDIOLOGY ATTENDING Verified by certified alcohol counselor for JEB SANTOS MD /JEB MANCILLA-CDD [facility] December 14, 2024 07:49 AM 01628(D) MYOCARDIA L SPECT(MULTIPLE): ROBBIE HUANGALEM [id number] -1940 M Ex Date: DECEMBER 14, 2024@07:49 Req Phys: DALIA COBB [facility] Loc: NUCLEAR MEDICINE Service: Unknown [place] [id number] (Case [id number] COMPLETE)65596(D) MYOCARDIAL SPECT(MULTIPL(NM Detailed) CPT:64273 Proc Modifiers : Lexiscan (Regadenoson) CPT Modifiers [...] YENNY GAMBOA Clinical History: Cardiology approval by: [facility] SERVICE CONNECTED? No Active Outpatient Medications [...] 14, 2024 Date Verified: DECEMBER 14, 2024 Special Delivery Carrier E-Sig: Report: [facility], [place], [place] STUDY: Regadenoson (Lexiscan) SPECT Tc-99m myoview [...] performed with tomographic and three-dimensional reconstructions with [employer]/CT 640 system. Exercise: Patient exercised for 6 [...] data sets in addition to the conventional xnu-hemvfmakkfg-bpstymnep images. Both filtered back projection and iterative [...] ventricular cavity. 4. SPECT images: Attenuation-corrected and nbs-mdzpfuaanna-rusrijyoj SPECT images were evaluated. SPECT images demonstrate [...] JEB SANTOS MD, CARDIOLOGY ATTENDING Verified by certified alcohol counselor for JEB SANTOS MD /JEB MACNILLA-D [facility] December 14, 2024 07:49 AM MYOVIEW(1): ROBBIE HUANG [id number] -1940 M Exm Date: DECEMBER 14, 2024@07:49 Req Phys: DALIA COBB Loc: [facility] 16-1 (Req'g Loc) Img Loc: NUCLEAR MEDICINE Service: [place] [address] (Case [id number] COMPLETE)MYOVIEW(1) (NM Detailed) CPT:A9502 Reason for Study: [...] 14, 2024 Date Verified: DECEMBER 14, 2024 Special Delivery Carrier E-Sig: Report: [place], [place] STUDY: Regadenoson (Lexiscan) SPECT Tc-99m myoview [...] performed with tomographic and three-dimensional reconstructions with studdex NM/CT 640 system. Exercise: Patient exercised for [...] data sets in addition to the conventional qai-goikmvtglsk-dcfrycpti images. Both filtered back projection and iterative [...] ventricular cavity. 4. SPECT images: Attenuation-corrected and jss-iaohagvhpks-fqrvzozfk SPECT images were evaluated. SPECT images demonstrate [...] JEB SANTOS MD, CARDIOLOGY ATTENDING Verified by certified alcohol counselor for JEB SANTOS MD /JEB MANCILLA-CDD [facility] December 14, 2024 07:49 AM MYOVIEW(2): ROBBIE HUANG MICA [id number] -1940 M Ex Date: DECEMBER 14, 2024@07:49 Req Phys: DALIA COBB Loc: [facility] WHITNEY 16-1 (Req'g Loc) [facility] Loc: NUCLEAR MEDICINE Service: Unknown [place] [id number] (Case [id number] COMPLETE)MYOVIEW(2) (NM Detailed) CPT:A9502 Reason for Study: SEE CLINICAL HISTORY Clinical History: Cardiology approval by: [facility] SERVICE CONNECTED? No Active Outpatient Medications [...] 14, 2024 Date Verified: DECEMBER 14, 2024 Special Delivery Carrier E-Sig: Report: [facility], [place], [place] STUDY: Regadenoson (Lexiscan) SPECT Tc-99m myoview [...] performed with tomographic and three-dimensional reconstructions with [employer]/CT 640 system. Exercise: Patient exercised for 6 [...] data sets in addition to the conventional lac-jevwcbjrajp-xskstmzgh images. Both filtered back projection and iterative [...] ventricular cavity. 4. SPECT images: Attenuation-corrected and gut-nkrhqfmbqnf-fqntinrsz SPECT images were evaluated. SPECT images demonstrate [...] JEB SANTOS MD, CARDIOLOGY ATTENDING Verified by certified alcohol counselor for JEB SANTOS MD /JEB MANCILLA-CDD [facility] December 14, 2024 07:49 AM [id number] REGADENOSON 0.1MG X1 (LEXISCAN): ROBBIE UHANG [id number] -1940 M Exm Date: DECEMBER 14, 2024@07:49 Req Phys: DALIA COBB Pat Loc: [facility] 16-1 (Req'g Loc) Img Loc: NUCLEAR MEDICINE Service: [place] [address] (Case [id number] COMPLETE)[id number] REGADENOSON 0.1MG X1 (STEPHON(NM Detailed) CPT:J2785 [...] 14, 2024 Date Verified: DECEMBER 14, 2024 Special Delivery Carrier E-Sig: Report: [facility], [place], [place] STUDY: Regadenoson (Lexiscan) SPECT Tc-99m myoview [...] performed with tomographic and three-dimensional reconstructions with studdex NM/CT 640 system. Exercise: Patient exercised for [...] data sets in addition to the conventional mzx-vysyytyaotn-qxyzmvezn images. Both filtered back projection and iterative [...] ventricular cavity. 4. SPECT images: Attenuation-corrected and fct-dwbvcsujtsk-ushaqltcf SPECT images were evaluated. SPECT images demonstrate [...] JEB SANTOS MD, CARDIOLOGY ATTENDING Verified by certified alcohol counselor for JEB SANTOS MD /JEB MANCILLA-CDD [facility] December 14, 2024 07:49 AM [id number] REGADENOSON 0.1MG X2 (LEXISCAN): ROBBIE HUANG MICA [id number] -1940 M Ex Date: DECEMBER 14, 2024@07:49 Req Phys: DALIA COBB Loc: [facility] 16-1 (Req'g Loc) Img Loc: NUCLEAR MEDICINE Service: [place] [address] (Case [id number] COMPLETE)[id number] REGADENOSON 0.1MG X2 (STEPHON(NM Detailed) CPT:J2785 [...] 14, 2024 Date Verified: DECEMBER 14, 2024 Special Delivery Carrier E-Sig: Report: [facility], [place], [place] STUDY: Regadenoson (Lexiscan) SPECT Tc-99m myoview [...] performed with tomographic and three-dimensional reconstructions with studdex NM/CT 640 system. Exercise: Patient exercised for [...] data sets in addition to the conventional qfz-ysldrkgqgqm-gsobpqzzh images. Both filtered back projection and iterative [...] ventricular cavity. 4. SPECT images: Attenuation-corrected and lco-yzalsiwhyln-fkmipeijc SPECT images were evaluated. SPECT images demonstrate [...] JEB SANTOS MD, CARDIOLOGY ATTENDING Verified by certified alcohol counselor for JEB SANTOS MD /JEB MANCILLA-CDD [facility] December 14, 2024 07:49 AM TC-99M X1 FROM NON -HEU SOURCE: ROBBIE HUANG [id number] -1940 M Ex Date: DECEMBER 14, 2024@07:49 Req Phys: DALIA COBB Loc: [facility] 16-1 (Req'g Loc) Img Loc: NUCLEAR MEDICINE Service: [place] [address] (Case [id number] COMPLETE)TC-99M X1 FROM NON-HEU SOURCE (NM Detailed) [...] 14, 2024 Date Verified: DECEMBER 14, 2024 Special Delivery Carrier E-Sig: Report: [facility], [place], [place] STUDY: Regadenoson (Lexiscan) SPECT Tc-99m myoview [...] performed with tomographic and three-dimensional reconstructions with studdex NM/CT 640 system. Exercise: Patient exercised for [...] data sets in addition to the conventional uym-ifjpuvsnnhm-gtszwbnrc images. Both filtered back projection and iterative [...] ventricular cavity. 4. SPECT images: Attenuation-corrected and oxm-cwnvbvozimr-fhvriswjy SPECT images were evaluated. SPECT images demonstrate [...] JEB SANTOS MD, CARDIOLOGY ATTENDING Verified by certified alcohol counselor for JEB SANTOS MD /JEB MANCILLA-CDD [facility] December 14, 2024 07:49 AM [id number] REGADENOSON 0.1MG X3 (LEXISCAN): ROBBIE HUANG MICA [id number] -1940 M Exm Date: DECEMBER 14, 2024@07:49 Req Phys: DALIA COBB Loc: [facility] 16-1 (Req'g Loc) Img Loc: NUCLEAR MEDICINE Service: [place] [address] (Case [id number] COMPLETE)[id number] REGADENOSON 0.1MG X3 (STEPHON(NM Detailed) CPT:J2785 [...] 14, 2024 Date Verified: DECEMBER 14, 2024 Special Delivery Carrier E-Sig: Report: [place] STUDY: Regadenoson (Lexiscan) SPECT Tc-99m myoview [...] performed with tomographic and three-dimensional reconstructions with [employer]/CT 640 system. Exercise: Patient exercised for 6 [...] data sets in addition to the conventional ceu-qvphzxylczz-ltxyxapyi images. Both filtered back projection and iterative [...] ventricular cavity. 4. SPECT images: Attenuation-corrected and het-lduxbzhgewg-rhnjgpegl SPECT images were evaluated. SPECT images demonstrate [...] JEB SANTOS MD, CARDIOLOGY ATTENDING Verified by certified alcohol counselor for JEB SANTOS MD /JEB MANCILLA-CDD [facility] December 14, 2024 07:49 AM TC-99M X2 FROM NON -HEU SOURCE: ROBBIE HUANG [id number] 1940 M Ex Date: DECEMBER 14, 2024@07:49 Req Phys: DALIA COBB Loc: [facility] 16-1 (Req'g Loc) Img Loc: NUCLEAR MEDICINE Service: [place] [address] (Case [id number] COMPLETE)TC-99M X2 FROM NON-HEU SOURCE (NM Detailed) [...] 14, 2024 Date Verified: DECEMBER 14, 2024 Special Delivery Carrier E-Sig: Report: [place] STUDY: Regadenoson (Lexiscan) SPECT Tc-99m myoview [...] performed with tomographic and three-dimensional reconstructions with [employer]/CT 640 system. Exercise: Patient exercised for 6 [...] data sets in addition to the conventional euv-klheeyejogt-wsmwbpcvq images. Both filtered back projection and iterative [...] ventricular cavity. 4. SPECT images: Attenuation-corrected and pgu-gcvabsuzyzv-pcevbqlea SPECT images were evaluated. SPECT images demonstrate [...] JEB SANTOS MD, CARDIOLOGY ATTENDING Verified by certified alcohol counselor for JEB SANTOS MD /JEB MANCILLA-[place] [facility] Encounter Notes: All associated encounter notes This section contains the clinical notes associated to the Encounter. Date/Time Encounter Note(s) Provider Source December 04, 2024 08:10 AM CARDIOLOGY CONSULT : LOCAL TITLE: EKG-INTERPRETATION ONLY CONSULT STANDARD TITLE: CARDIOLOGY CONSULT DATE OF NOTE: DECEMBER 04, 2024@08:10:52 ENTRY DATE: DECEMBER 04, 2024@08:10:52 AUTHOR: CLINICAL,DEVICE PRO EXP COSIGNER: URGENCY: STATUS: COMPLETED DOCUMENT IN VISTA IMAGING SEE FULL REPORT IN VISTA IMAGING SIGNATURE NOT REQUIRED SEE SIGNATURE IN VISTA IMAGING ([employer] EKG) AUTO-INSTRUMENT DIAGNOSIS Procedure: [id number] 12 Lead ECG Release Status: Released Off-Line Verified Date Verified: December 04, 2024@08:10:49 Surveillance Agent: SELENE BRYAN 31656.2 Ventricular Rate: 69 BPM 30552.3 Atrial Rate: 69 BPM 68263.4 P-R Interval: 186 ms 00894.5 QRS Duration: 172 ms 50291.6 Q-T Interval: 466 ms 28192 QTC Calculation(Bazett)499 ms 43755.12 Calculated P Marianna: 35 degrees 83709.13 Calculated R Marian[place]: -60 degrees 40627.14 Calculated T [place]: 13 degrees 208.1 Coded Diagnosis: NORMAL SINUS RHYTHM 208.1 Coded Diagnosis: LEFT AXIS DEVIATION 208.1 Coded Diagnosis: RIGHT BUNDLE BRANCH BLOCK 208.1 Coded Diagnosis: SEPTAL INFARCT 208.1 Coded Diagnosis: , AGE UNDETERMINED 208.1 Coded Diagnosis: ABNORMAL ECG 208.1 Coded Diagnosis: WHEN COMPARED WITH ECG OF 03-DEC-2024 13:35, 208.1 Coded Diagnosis: NO SIGNIFICANT CHANGE WAS FOUND Confirmed by SELENE BRYAN MD (4), international editorial producer Randall Landry ([id number]) on 12/04/2024 8:10:46 AM Administrative Closure: 12/04/2024 by: DEVICE PROXY SERVICE CLINICAL CLINICAL,DEVICE PROXY SERVICE CLINICAL,DEVICE PROXY SERVICE [facility]
--- OUTSIDE RECORDS SUMMARY | 2024-12-04 04:21 | XMS_ITS | Encounter Summary ---
Author Name [facility] Address [address] [place] [address] Care Team Providers Care Cinder Pit Worker Name Role Phone JORDYN DALIA Primary Care [...] Asif's Name Patient's Relationship to Policy Asif [facility] [place] BLUECARD MEDICARE SECONDARY (NO B EXC) TI AUTOM OTIVE - RETI Jul 25, 2018 [id number] TI KAMARA SPOUSE MEDICARE (WNR) MEDICARE (M) PART B Jan 22, 2007 PART B [id number] [phone] JUSTYNA HUANGE PATIENT MEDICARE (WNR) MEDICARE (M) PART A Sep 22, 2005 PART A [id number] [phone] [id number] MALUJUSTYNA TINAJERO PATIENT FOR LIFE TRICA RE FOR LIFE Jul 25, 2017 FOR LIFE [id number] REINA ROBBIE PATIENT Selected Encounter This section includes the information on record at [place] for the Encounter. 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 Date/Time Primary/Secondary Diagnosis Diagnosis Name Provider Source December 04, 2024 03:27 PM PRIMARY Hypertensive chronic kidney disease w stg 1-4/unsp [facility] of Treatment: Future Appointments (+ 6 months) and Future Tests (+/- 45 days) The Plan of Treatment section includes future care activities for the patient from all [place] treatmentfacilities. This section includes future appointments and future orders which are active, pending or scheduled. Future Appointments This section includes appointments that were scheduled to occur 6 months from the date of the Encounter, up to a maximum of 20 appointments. The data comes from all [facility] [address] Appointment Date/Time Appointment Type Appointme nt Facility Name December 06, 2024 12:15 PM AMBULATORY - MEDICINE [facility] December 14, 2024 08:00 AM AMBULATORY - NONE [facility] Jan 04, 2025 01:30 PM AMBULATORY - SURGERY [facility] Jan 31, 2025 03:00 PM AMBULATORY - MEDICINE [facility] Feb 05, 2025 01:00 PM AMBULATORY - MEDICINE [facility] Feb 05, 2025 02:00 PM AMBULATORY - MEDICINE [facility] Active, Pending, and Scheduled Orders This section includes a listing of several types of active, pending, and scheduled orders, including clinic medications orders, diagnostic test orders, procedure orders and consult orders; where the start date of the order is 45 days before the date of the Encounter or 45 days after the date of theEncounter. The data comes from all [facility] [address]. Test Date/Time Test Type Test Details Facility Name Jan 04, 2025 12:00 AM Imaging - Vascular Lab Order SEGMENTAL PRESSURES, LOWER EXT([place]) UNILAT [facility] Jan 04, 2025 12:00 AM Imaging - Vascular Lab Order VENOUS DUPLEX LOWER EXT BILAT [facility] Lab Results: +/- 30 days of the encounter This section includes the Chemistry and Hematology Lab Results on record with [place] for the patient. Radiology Reports and Pathology Reports are provided separately, in subsequent sections. Lab Results This section contains the Chemistry/Hematology Results that were resulted 30 days before or 30 daysafter the date of the Encounter. Date/Time Source Result Type Result - Unit Interpretation Reference Range Specimen Type Comment December 03, 2024 02:03 PM [facility] PROTEIN ELECTROPHORESIS URINE Specimen Type: URINE No comment entered. Ordering Provider: DALIA COBB Report Released Date/Time: December 03, 2024 01:24 PM Reporting Lab: [address] [address] Performing Lab: [address] [address] TOTAL PROTEIN 17.0 mg/dL Not Estab. .ALBUMIN ELEC 29.4 .ALPHA 1 ELEC 5.2 .ALPHA 2 ELEC 21.5 .BETA ELEC 19.7 .GAMMA ELEC 24.2 .M-SPIKE Not Observed Not Observed December 03, 2024 02:03 PM [facility] TOTAL PROTEIN URINE Specimen Type: URINE No comment entered. Ordering Provider: DALIA COBB Report Released Date/Time: December 03, 2024 01:24 PM Reporting Lab: [address] [address] Performing Lab: [address] [address] TOTAL PROTEIN 16 mg/dL H 0-14 December 03, 2024 02:03 PM [facility] CREATININE URINE Specimen Type: URINE No comment entered. Ordering Provider: DALIA COBB Report Released Date/Time: December 03, 2024 01:24 PM Reporting Lab: [address] [address] Performing Lab: [address] [address] CREATININE 63.6 mg/dL December 03, 2024 02:03 PM [facility] URINALYSIS URINE Specimen Type: URINE Comment: Microscopic not indicated Ordering Provider: DALIA COBB Report Released Date/Time: December 03, 2024 01:29 PM Reporting Lab: [place] [id number] Performing Lab: [place] [id number] URINE COLOR Light Yellow Colorless-Yello w APPEARANCE Clear Clear UROBILINOGEN Normal mg/dL Normal URINE BLOOD Negative Negative URINE BILIRUBIN Negative Negative URINE KETONES Negative mg/dL Negative URINE PROTEIN Negative mg/dL Negative-Tr rachell URINE PH 5.0 4.5-8.0 URINE NITRITE Negative Negative URINE LEUKOCYTE EST Negative Negative SPECIFIC GRAVITY 1.014 1.005-1.030 URINE GLUCOSE >1000 mg/dL H Negative December 03, 2024 01:45 PM [facility] ANTI-NUCLEAR Ab SERUM Specimen Type: SERUM Comment: Atypical speckled resembling DFS (Dense-Fine Speckled. The DFS pattern has a low prevalence in systemic autoimmune rheumatic diseases. The clinical association remains unclear. Due to its close resemblance to other patterns of clinical relevance, (i.e. Homogeneous, speckled, and mixed patterns) follow-up testing may be recommended. ANTI-NUCLEAR Ab reported incorrectly as Atypical Speckled by [[id number]]. Changed to 1:320 Atypical Speckled on December 06, 2024@12:59 by [[id number]]. Ordering Provider: DALIA COBB Report Released Date/Time: December 03, 2024 01:38 PM Reporting Lab: [address] [address] Performing Lab: [address] [address] ANTI-NUCLEAR Ab 1:320 Atypical Speckled <1:80 December 03, 2024 01:45 PM [facility] ROSALIE (SERUM) SERUM Specimen Type: SERUM Comment: BNP results less than or equal to 100 pg/ml are eligibility services representative of normal values in patients without CHF. BNP results greater than 100 pg/ml are considered abnormal and suggestive of CHF. Higher BNP concentrations in the first 72 hours after Acute Coronary Syndrome are associated with an increased risk of , myocardial infarction and CHF. Ordering Provider: DALIA COBB Report Released Date/Time: December 03, 2024 01:24 PM Reporting Lab: [address] [address] Performing Lab: [facility] [address] [facility] [address] .ALBUMIN ELEC 3.6 g/dL 2.9-4.4 .ALPHA 1 [...] December 03, 2024 01:45 PM [facility] JORDAN SCREEN SERUM Specimen Type: SERUM No comment entered. Ordering Provider: DALIA COBB Report Released Date/Time: December 03, 2024 01:38 PM Reporting Lab: [address] [address] Performing Lab: [address] [address] JORDAN SCREEN Negative Negative December 03, 2024 01:45 PM [facility] BNP (Colibri Heart Valve) PLASMA Specimen Type: PLASMA Comment: BNP results less than or equal to 100 pg/ml are eligibility services representative of normal values in patients without CHF. BNP results greater than 100 pg/ml are considered abnormal and suggestive of CHF. Higher BNP concentrations in the first 72 hours after Acute Coronary Syndrome are associated with an increased risk of , myocardial infarction and CHF. Ordering Provider: DALIA COBB Report Released Date/Time: December 03, 2024 01:24 PM Reporting Lab: [address] [address] Performing Lab: [address] [address] BNP (MCCALL) 225 pg/mL H 0-100 December 03, 2024 01:45 PM [facility] TOTAL PLASMA Specimen Type: PLASM A [...] December 03, 2024 01:33 PM Reporting Lab: [address] [address] Performing Lab: [address] [address] CK TOTAL 76 U/L 30-200 December 03, 2024 01:45 PM [facility] 5 PLASMA Specimen Type: PLASM [...] December 03, 2024 01:24 PM Reporting Lab: [address] [address] Performing Lab: [address] [address] CREATININE 2.05 mg/dL H 0.72-1.25 UREA NITROGEN [...] eGFR (CKD-EPI) December 03, 2024 01:45 PM [facility] CBC/PLT BLOOD Specimen Type: BLOOD No comment entered. Ordering Provider: DALIA COBB Report Released Date/Time: December 03, 2024 01:33 PM Reporting Lab: [address] [address] Performing Lab: [place] [phone] WBC 5.6 10*3/uL 5.0-10.0 RBC 4.24 10*6/uL L 4.6-6.2 HGB 12.8 g/dL L 14.0-18.0 HCT 39.4 L 42.0-52.0 MCV 92.9 fL 80.0-94.0 MCH 30.2 pg 27.0-31.0 MCHC 32.5 g/dL 32.0-36.0 PLT 248 10*3/uL 150-450 MPV 10.2 fL 9.0-13.1 RDW 14.2 11.0-16.0 NRBC 0.0 0.0-0.0 December 03, 2024 01:45 PM [facility] AUTOMATED DIFF BLOOD Specimen Type: BLOOD No comment entered. Ordering Provider: DALIA COBB Report Released Date/Time: December 03, 2024 01:33 PM Reporting Lab: [facility] [address] [facility] [address] Performing Lab: [facility] [address] [facility] [address] A-LYMPH % 22.1 L 24.0-44.0 A-MONO % [...] and tobacco- related health factors from the [place] facility where the Encounter took place. Current Smoking Status This section includes the most current smoking, or tobacco-related health factor, from the [place] facility where the Encounter took place. Date/Time Current Smoking Status Comment Kelechi dial May 10, 2024 02:00 PM VA-TOBACCO NEVER USED [facility] Tobacco Use History This section includes a history of the smoking, or tobacco-related health factors, that were collected on or before the date of the Encounter. The data comes from the [place] facility where the Encounter took place. Date/Time Smoking Status/Tobacco Use Comment Ricardo dudley May 19, 2017 03:22 AM NON-TOBACCO USE INPATIENT [facility] Sep 07, 2016 02:41 AM NON-TOBACCO USE INPATIENT [facility] Apr 21, 2004 08:29 AM HF V9 CURRENT NON-SMOKER quit smoking about 30 yrs ago [facility] Sep 06, 2002 02:26 PM HF V9 CURRENT NON-SMOKER QUIT SMOKING ABOUT 31 YRS AGO [facility] Radiology Reports: +/- 30 days of the [...] the Encounter. The data comes from all [place] treatment facilities. Date/Time Radiology Report Provider Source December 14, 2024 07:49 AM CARD. STRESS TEST W/TREADMILL/...: ROBBIE HUANG MICA [id number] -1940 M Exm Date: DECEMBER 14, 2024@07:49 Req Phys: DALIA COBB Loc: [facility] 16-1 (Req'g Loc) Img Loc: NUCLEAR MEDICINE Service: Unknown [place] [id number] (Case [id number] COMPLETE)CARD. STRESS TEST W/TREADMILL/...(NM Detailed) CPT:70346 Reason for Study: SEE CLINICAL HISTORY Clinical [...] 14, 2024 Date Verified: DECEMBER 14, 2024 Thermal Molder E-Sig: Report: STUDY: GXT with vasodilator REPORT: [...] Staff: CHAO ORR APRN, Cardiology Verified by circus supervisor for CHAO ORR /CHAO GIRON-ISMAEL [facility] December 14, 2024 07:49 AM [id number] REGADENOSON 0.1MG X4 (LEXISCAN): ROBBIE HUANG [id number] -1940 M Exm Date: DECEMBER 14, 2024@07:49 Req Phys: DALIA COBB Pat Loc: [facility] 16-1 (Req'g Loc) Img Loc: NUCLEAR MEDICINE Service: [place] [address] (Case [id number] COMPLETE)[id number] REGADENOSON 0.1MG X4 (STEPHON(NM Detailed) CPT:J2785 [...] 14, 2024 Date Verified: DECEMBER 14, 2024 Thermal Molder E-Sig: Report: STUDY: GXT with vasodilator REPORT: [...] Staff: CHAO ORR APRN, Cardiology Verified by circus supervisor for CHAO ORR /CHAO GIRON-D [facility] December 14, 2024 07:49 AM CARD. STRESS TEST W/TREADMILL/...: ROBBIE HUANG [id number] 1940 M Ex Date: DECEMBER 14, 2024@07:49 Req Phys: DALIA COBB Loc: [facility] 16-1 (Req'g Loc) Im Loc: NUCLEAR MEDICINE Service: Unknown [place] [id number] (Case [id number] COMPLETE)CARD. STRESS TEST W/TREADMILL/...(NM Detailed) CPT:60763 Proc Modifiers : GXT Reason for Study: SEE CLINICAL HISTORY Clinical History: Cardiology approval by: [facility] CONNECTED? No Active Outpatient Medications (including [...] 14, 2024 Date Verified: DECEMBER 14, 2024 Thermal Molder E-Sig: Report: [facility], [place], [place] STUDY: Regadenoson (Lexiscan) SPECT Tc-99m myoview [...] performed with tomographic and three-dimensional reconstructions with Pet Ready NM/CT 640 system. Exercise: Patient exercised for [...] data sets in addition to the conventional ris-haihvbnhocz-earwzrlst images. Both filtered back projection and iterative [...] ventricular cavity. 4. SPECT images: Attenuation-corrected and mrg-itljpcizvpl-khutsxbbw SPECT images were evaluated. SPECT images demonstrate [...] JEB SANTOS MD, CARDIOLOGY ATTENDING Verified by circus supervisor for JEB SANTOS MD /RAD SANTOS,JEB BOOKER-ISMAEL [facility] December 14, 2024 07:49 AM 40936(D) MYOCARDIA L SPECT(MULTIPLE): ROBBIE HUANG [id number] -1940 M Exm Date: DECEMBER 14, 2024@07:49 Req Phys: DALIA COBB Pat Loc: [facility] 16-1 (Req'g Loc) Img Loc: NUCLEAR MEDICINE Service: [place] [address] (Case [id number] COMPLETE)25548(D) MYOCARDIAL SPECT(MULTIPL(NM Detailed) CPT:14125 Proc Modifiers : Lexiscan (Regadenoson) CPT Modifiers [...] 14, 2024 Date Verified: DECEMBER 14, 2024 Thermal Molder E-Sig: Report: [place], [place] STUDY: Regadenoson (Lexiscan) SPECT Tc-99m myoview [...] performed with tomographic and three-dimensional reconstructions with Pet Ready NM/CT 640 system. Exercise: Patient exercised for [...] data sets in addition to the conventional lfj-fdffdazvwsq-ycdgybera images. Both filtered back projection and iterative [...] ventricular cavity. 4. SPECT images: Attenuation-corrected and rue-wqgjavzpsul-fxrhvnnrr SPECT images were evaluated. SPECT images demonstrate [...] JEB SANTOS MD, CARDIOLOGY ATTENDING Verified by circus supervisor for JEB SANTOS MD /JEB MANCILLA-D [facility] December 14, 2024 07:49 AM MYOVIEW(1): REINAROBBIE MICA [id number] [facility]1940 [facility] Date: DECEMBER 14, 2024@07:49 Req Phys: DALIA COBB Loc: [facility] 16-1 (Req'g Loc) Img Loc: NUCLEAR MEDICINE Service: Unknown [place] [id number] (Case [id number] COMPLETE)MYOVIEW(1) (NM Detailed) CPT:A9502 Reason for Study: [...] 14, 2024 Date Verified: DECEMBER 14, 2024 Thermal Molder E-Sig: Report: [facility], [place], [place] STUDY: Regadenoson (Lexiscan) SPECT Tc-99m myoview [...] performed with tomographic and three-dimensional reconstructions with Pet Ready NM/CT 640 system. Exercise: Patient exercised for [...] data sets in addition to the conventional qvp-cixyycikfre-sjhztayij images. Both filtered back projection and iterative [...] ventricular cavity. 4. SPECT images: Attenuation-corrected and yub-spensmgnbas-mfvvwrwby SPECT images were evaluated. SPECT images demonstrate [...] JEB SANTOS MD, CARDIOLOGY ATTENDING Verified by circus supervisor for JEB SANTOS MD /JEB MANCILLA-[place] [facility] December 14, 2024 07:49 AM [id number] REGADENOSON 0.1MG X1 (LEXISCAN): ROBBIE HUANG [id number] -1940 M Exm Date: DECEMBER 14, 2024@07:49 Req Phys: JORDYNDALIA Abby Loc: [facility] 16-1 (Req'g Loc) Img Loc: NUCLEAR MEDICINE Service: [place] [address] (Case [id number] COMPLETE)[id number] REGADENOSON 0.1MG X1 (STEPHON(NM Detailed) CPT:J2785 [...] 14, 2024 Date Verified: DECEMBER 14, 2024 Thermal Molder E-Sig: Report: [facility], [place], [place] STUDY: Regadenoson (Lexiscan) SPECT Tc-99m myoview [...] performed with tomographic and three-dimensional reconstructions with [place] NM/CT 640 system. Exercise: Patient exercised for [...] data sets in addition to the conventional rny-xknxzocjaho-gennhjkfj images. Both filtered back projection and iterative [...] ventricular cavity. 4. SPECT images: Attenuation-corrected and jsr-eealzerpzrm-msbiozykr SPECT images were evaluated. SPECT images demonstrate [...] JEB SANTOS MD, CARDIOLOGY ATTENDING Verified by circus supervisor for JEB SANTOS MD /JEB MANCILLA-CDD [facility] December 14, 2024 07:49 AM MYOVIEW(2): REINAROBBIE MICA [id number] -1940 M Exm Date: DECEMBER 14, 2024@07:49 Req Phys: DALIA COBB [facility] (Req'g Loc) Img Loc: NUCLEAR MEDICINE Service: [place] [address] (Case [id number] COMPLETE)MYOVIEW(2) (NM Detailed) CPT:A9502 Reason for Study: [...] 14, 2024 Date Verified: DECEMBER 14, 2024 Thermal Molder E-Sig: Report: [place], [place] STUDY: Regadenoson (Lexiscan) SPECT Tc-99m myoview [...] performed with tomographic and three-dimensional reconstructions with Pet Ready NM/CT 640 system. Exercise: Patient exercised for [...] data sets in addition to the conventional gnq-uklxajrnocf-gpgbyvzcq images. Both filtered back projection and iterative [...] ventricular cavity. 4. SPECT images: Attenuation-corrected and xbh-iuudtjelksc-uqjhoulha SPECT images were evaluated. SPECT images demonstrate [...] JEB SANTOS MD, CARDIOLOGY ATTENDING Verified by circus supervisor for JEB SANTOS MD /JEB MANCILLA-CDD [facility] December 14, 2024 07:49 AM TC-99M X1 FROM NON -HEU SOURCE: ROBBIE HUANG [id number] [facility]1940 Ex Date: DECEMBER 14, 2024@07:49 Req Phys: DALIA COBB Loc: [facility] WH[place] 16-1 (Req'g Loc) Im Loc: NUCLEAR MEDICINE Service: [place] [address] (Case [id number] COMPLETE)TC-99M X1 FROM NON-HEU SOURCE (NM Detailed) [...] 14, 2024 Date Verified: DECEMBER 14, 2024 Thermal Molder E-Sig: Report: [facility], [place], [place] STUDY: Regadenoson (Lexiscan) SPECT Tc-99m myoview [...] performed with tomographic and three-dimensional reconstructions with Pet Ready NM/CT 640 system. Exercise: Patient exercised for [...] data sets in addition to the conventional dkc-czkwcfinkdl-wtxjtyjuw images. Both filtered back projection and iterative [...] ventricular cavity. 4. SPECT images: Attenuation-corrected and zai-ybadxcfpihw-pxbflyqud SPECT images were evaluated. SPECT images demonstrate [...] JEB SANTOS MD, CARDIOLOGY ATTENDING Verified by circus supervisor for JEB SANTOS MD /JEB MANCILLA-CDD [facility] December 14, 2024 07:49 AM [id number] REGADENOSON 0.1MG X2 (LEXISCAN): ROBBIE HUANG [id number] -1940 M Exm Date: DECEMBER 14, 2024@07:49 Req Phys: DALIA COBB Abby Loc: [facility] 16-1 (Req'g Loc) Img Loc: NUCLEAR MEDICINE Service: [place] [address] (Case [id number] COMPLETE)[id number] REGADENOSON 0.1MG X2 (STEPHON(NM Detailed) CPT:J2785 Reason for Study: SEE CLINICAL HISTORY Clinical History: Cardiology approval by: [facility] CONNECTED? No Active Outpatient Medications (including [...] 14, 2024 Date Verified: DECEMBER 14, 2024 Thermal Molder E-Sig: Report: [place], [place] STUDY: Regadenoson (Lexiscan) SPECT Tc-99m myoview [...] performed with tomographic and three-dimensional reconstructions with Pet Ready NM/CT 640 system. Exercise: Patient exercised for [...] data sets in addition to the conventional hij-qcdlwohixmd-anugjeisn images. Both filtered back projection and iterative [...] ventricular cavity. 4. SPECT images: Attenuation-corrected and tqc-ugydeqqhkia-jdepmqokv SPECT images were evaluated. SPECT images demonstrate [...] JEB SANTOS MD, CARDIOLOGY ATTENDING Verified by circus supervisor for JEB SANTOS MD /JEB MANCILLA-CDD [facility] December 14, 2024 07:49 AM [id number] REGADENOSON 0.1MG X3 (LEXISCAN): [facility] [id number] -1940 M Ex Date: DECEMBER 14, 2024@07:49 Req Phys: DALIA COBB Loc: [facility] [place] 16-1 (Req'g Loc) Img Loc: NUCLEAR MEDICINE Service: [place] [address] (Case [id number] COMPLETE)[id number] REGADENOSON 0.1MG X3 (STEPHON(NM Detailed) CPT:J2785 [...] 14, 2024 Date Verified: DECEMBER 14, 2024 Thermal Molder E-Sig: Report: [facility], [place], [place] STUDY: Regadenoson (Lexiscan) SPECT Tc-99m myoview [...] performed with tomographic and three-dimensional reconstructions with Pet Ready NM/CT 640 system. Exercise: Patient exercised for [...] data sets in addition to the conventional aoo-ujwhxmofjvo-biclccubd images. Both filtered back projection and iterative [...] ventricular cavity. 4. SPECT images: Attenuation-corrected and fxl-ctriafpyvrs-yfaugmkdb SPECT images were evaluated. SPECT images demonstrate [...] JEB SANTOS MD, CARDIOLOGY ATTENDING Verified by circus supervisor for JEB SANTOS MD /JEB MANCILLA-CDD [facility] December 14, 2024 07:49 AM TC-99M X2 FROM NON -HEU SOURCE: [facility]BIE HUANG [facility] [id number] -1940 M Ex Date: DECEMBER 14, 2024@07:49 Req Phys: DALIA COBB Loc: [facility] [place] 16-1 (Req'g Loc) [facility] Loc: NUCLEAR MEDICINE [place]: [place] [address] (Case [id number] COMPLETE)TC-99M X2 FROM NON-HEU SOURCE (NM Detailed) CPT:Q9969 Reason for Study: SEE CLINICAL HISTORY Clinical History: Cardiology approval by: [facility] SERVICE CONNECTED? No Active Outpatient Medications (including [...] 14, 2024 Date Verified: DECEMBER 14, 2024 Thermal Molder E-Sig: Report: [facility], [place], [place] STUDY: Regadenoson (Lexiscan) SPECT Tc-99m myoview [...] performed with tomographic and three-dimensional reconstructions with Pet Ready NM/CT 640 system. Exercise: Patient exercised for [...] data sets in addition to the conventional ywg-elmtfgdlamt-bltcaarcp images. Both filtered back projection and iterative [...] ventricular cavity. 4. SPECT images: Attenuation-corrected and inr-kidgizdzlok-gvkaqbzsa SPECT images were evaluated. SPECT images demonstrate [...] JEB SANTOS MD, CARDIOLOGY ATTENDING Verified by circus supervisor for JEB SANTOS MD /JEB MANCILLABina [facility] Encounter Notes: All associated encounter notes This section contains the clinical notes associated to the Encounter. Date/Time Encounter Note(s) Provider Source December 07, 2024 09:23 AM PRIMARY CARE LETTE RS: LOCAL TITLE: PC LETTER TEST RESULTS STANDARD TITLE: PRIMARY CARE LETTERS DATE OF NOTE: DECEMBER 07, 2024@09:23 ENTRY DATE: DECEMBER 07, 2024@09:23:39 AUTHOR: JAIME STEVE EXP COSIGNER: URGENCY: STATUS: COMPLETED [facility] [address] [place] [address] Mr. ROBBIE HUANG [address] [place], [place] [address] DECEMBER 07, 2024 Dear Mr. ROBBIE HUANG Your Primary Care Provider has reviewed your recent tests. YOUR PCP WOULD LIKE TO INFORM YOU OF THE FOLLOWING: ECHO similar to prior in 2022 with CHF with reduced ejection fracture, recently symptomatic. I will set up for cardiology consult along with stress test for further evaluation. Please call us if you have questions or problems. You can reach us at (toll free number) or [phone] (local number). If you are enrolled in [employer], and utilize those services, you may prefer to contact us by secure message. Thank you for your service to our Country. We are honored to be able to provide medical care to you. Sincerely, /jack/ JAIME VICENTE, RN PC ORGANIC SEARCH LEAD Patient Record Number [id number] JAIME STEVEG. [facility] December 04, 2024 08:28 AM CARDIOLOGY CONSULT : LOCAL TITLE: EKG-INTERPRETATION ONLY CONSULT STANDARD TITLE: CARDIOLOGY CONSULT DATE OF NOTE: DECEMBER 04, 2024@08:28:04 ENTRY DATE: DECEMBER 04, 2024@08:28:04 AUTHOR: CLINICAL,DEVICE PRO EXP COSIGNER: URGENCY: STATUS: COMPLETED DOCUMENT IN VISTA IMAGING SEE FULL REPORT IN VISTA IMAGING SIGNATURE NOT REQUIRED SEE SIGNATURE IN VISTA IMAGING (MuseNX EKG) AUTO-INSTRUMENT DIAGNOSIS Procedure: [id number] 12 Lead ECG Release Status: Released Off-Line Verified Date Verified: December 04, 2024@08:27:59 Landfill Grader: SELENE BRYAN 35993.2 Ventricular Rate: 63 BPM 62536.3 Atrial Rate: 63 BPM 99304.4 P-R Interval: 184 ms 66610.5 QRS Duration: 168 ms 82831.6 Q-T Interval: 458 ms 15548 QTC Calculation(Bazett)468 ms 09170.12 Calculated P Denton: 31 degrees 81251.13 Calculated R Denton: -61 degrees 91537.14 Calculated T Denton: 12 degrees 208.1 Coded Diagnosis: NORMAL SINUS RHYTHM 208.1 Coded Diagnosis: LEFT AXIS DEVIATION 208.1 Coded Diagnosis: RIGHT BUNDLE BRANCH BLOCK 208.1 Coded Diagnosis: SEPTAL INFARCT 208.1 Coded Diagnosis: , AGE UNDETERMINED 208.1 Coded Diagnosis: ABNORMAL ECG 208.1 Coded Diagnosis: CLINICAL CORRELATION NEEDED Confirmed by SELENE BRYAN MD ([id number]), commissioning editor Randall Landry ([id number]) on 12/04/2024 8:27:58 AM Administrative Closure: 12/04/2024 by: DEVICE PROXY SERVICE CLINICAL CLINICAL,DEVICE PROXY SERVICE CLINICAL,DEVICE PROXY SERVICE [facility]
--- OUTSIDE RECORDS SUMMARY | 2024-12-05 04:20 | XMS_ITS | Encounter Summary ---
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 Date/Time Encounter Type Encounter Description Reason Pro vider Source December 05, 2024 08:20 AM Outpatient Encounter ADMIN PAT ACTIVTIES (MASNONCT) IHE Encounter Template Text not used by NH Plan of Treatment: Future Appointments (+ 6 months) and Future Tests (+/- 45 days) The Plan of Treatment section includes future care activities for the patient [facility] This section includes future appointments and future orders which are active, pending or scheduled. Future Appointments This section includes appointments that were scheduled to occur 6 months from the date of the Encounter, up to a maximum of 20 appointments. The data comes from all [facility]. Appointment Date/Time Appointment Type Appointme nt Facility Name December 06, 2024 12:15 PM AMBULATORY - MEDICINE [facility] December 14, 2024 08:00 AM AMBULATORY - NONE [facility] Jan 04, 2025 01:30 PM AMBULATORY - SURGERY [facility] Jan 31, 2025 03:00 PM AMBULATORY - MEDICINE [facility] Feb 05, 2025 01:00 PM AMBULATORY - MEDICINE [facility] Feb 05, 2025 02:00 PM AMBULATORY - MEDICINE [facility] Active, Pending, and Scheduled Orders This section includes a listing of several types of active, pending, and scheduled orders, including clinic medications orders, diagnostic test orders, procedure orders and consult orders; where the start date of the order is 45 days before the date of the Encounter or 45 days after the date of theEncounter. The data comes from all [facility]. Test Date/Time Test Type Test Details Facility Name Jan 04, 2025 12:00 AM Imaging - Vascular Lab Order SEGMENTAL PRESSURES, LOWER EXT([place]) [facility] Jan 04, 2025 12:00 AM Imaging - Vascular Lab Order VENOUS DUPLEX LOWER EXT [facility]AT [facility] Lab Results: +/- 30 days of [...] Type Comment December 03, 2024 02:03 PM [facility] OWN PROTEIN ELECTROPHORESIS URINE Specimen Type: URINE No comment entered. Ordering Provider: DALIA COBB Report Released Date/Time: December 03, 2024 01:24 PM Reporting Lab: [address] [address] Performing Lab: [address] [address] TOTAL PROTEIN 17.0 mg/dL Not Estab. .ALBUMIN ELEC 29.4 .ALPHA 1 ELEC 5.2 .ALPHA 2 ELEC 21.5 .BETA ELEC 19.7 .GAMMA ELEC 24.2 .M-SPIKE Not Observed Not Observed December 03, 2024 02:03 PM [facility] TOTAL PROTEIN URINE Specimen Type: URINE No comment entered. Ordering Provider: DALIA COBB Report Released Date/Time: December 03, 2024 01:24 PM Reporting Lab: [address] [address] Performing Lab: [address] [address] TOTAL PROTEIN 16 mg/dL H 0-14 December 03, 2024 02:03 PM [facility] CREATININE URINE Specimen Type: URINE No comment entered. Ordering Provider: DALIA COBB Report Released Date/Time: December 03, 2024 01:24 PM Reporting Lab: [address] [address] Performing Lab: [address] [address] CREATININE 63.6 mg/dL December 03, 2024 02:03 PM [facility] URINALYSIS URINE Specimen Type: URINE Comment: Microscopic not indicated Ordering Provider: DALIA COBB Report Released Date/Time: December 03, 2024 01:29 PM Reporting Lab: [address] [address] Performing Lab: [address] [address] URINE COLOR Light Yellow Colorless-Yello w APPEARANCE Clear Clear UROBILINOGEN Normal mg/dL Normal URINE BLOOD Negative Negative URINE BILIRUBIN Negative Negative URINE KETONES Negative mg/dL Negative URINE PROTEIN Negative mg/dL Negative-Tr rachell URINE PH 5.0 4.5-8.0 URINE NITRITE Negative Negative URINE LEUKOCYTE EST Negative Negative SPECIFIC GRAVITY 1.014 1.005-1.030 URINE GLUCOSE >1000 mg/dL H Negative December 03, 2024 01:45 PM [facility] ANTI-NUCLEAR Ab SERUM Specimen Type: SERUM Comment: Atypical speckled resembling DFS (Dense-Fine Speckled. The DFS pattern has a low prevalence in systemic autoimmune rheumatic diseases. The clinical association remains unclear. Due to its close resemblance to other patterns of clinical relevance, (i.e. Homogeneous, speckled, and mixed patterns) follow-up testing may be recommended. ANTI-NUCLEAR Ab reported incorrectly as Atypical Speckled by [[id number]]. Changed to 1:320 Atypical Speckled on December 06, 2024@12:59 by [[id number]]. Ordering Provider: DALIA COBB Report Released Date/Time: December 03, 2024 01:38 PM Reporting Lab: [address] [address] Performing Lab: [address] [address] ANTI-NUCLEAR Ab 1:320 Atypical Speckled <1:80 December 03, 2024 01:45 PM [facility] ROSALIE (SERUM) SERUM Specimen Type: SERUM Comment: BNP results less than or equal to 100 pg/ml are customer loyalty representative of normal values in patients without CHF. BNP results greater than 100 pg/ml are considered abnormal and suggestive of CHF. Higher BNP concentrations in the first 72 hours after Acute Coronary Syndrome are associated with an increased risk of , myocardial infarction and CHF. Ordering Provider: DALIA COBB Report Released Date/Time: December 03, 2024 01:24 PM Reporting Lab: [address] [address] Performing Lab: [address] [address] .ALBUMIN ELEC 3.6 g/dL 2.9-4.4 .ALPHA 1 [...] INTERPRETATION Comment December 03, 2024 01:45 PM [facility] JORDAN SCREEN SERUM Specimen Type: SERUM No comment entered. Ordering Provider: DALIA COBB Report Released Date/Time: December 03, 2024 01:38 PM Reporting Lab: [address] [address] Performing Lab: [address] [address] JORDAN SCREEN Negative Negative December 03, 2024 01:45 PM [facility] BNP (Boom.fm) PLASMA Specimen Type: PLASMA Comment: BNP results less than or equal to 100 pg/ml are customer loyalty representative of normal values in patients without CHF. BNP results greater than 100 pg/ml are considered abnormal and suggestive of CHF. Higher BNP concentrations in the first 72 hours after Acute Coronary Syndrome are associated with an increased risk of , myocardial infarction and CHF. Ordering Provider: DALIA COBB Report Released Date/Time: December 03, 2024 01:24 PM Reporting Lab: [address] [address] Performing Lab: [address] [address] BNP (MCCALL) 225 pg/mL H 0-100 December 03, 2024 01:45 PM [facility] CK TOTAL PLASMA Specimen Type: PLASM [...] December 03, 2024 01:33 PM Reporting Lab: [address] [address] Performing Lab: [address] [address] CK TOTAL 76 U/L 30-200 December 03, 2024 01:45 PM [facility] PLASMA Specimen Type: PLASM A [...] December 03, 2024 01:24 PM Reporting Lab: [address] [address] Performing Lab: [address] [address] CREATININE 2.05 mg/dL H 0.72-1.25 UREA NITROGEN [...] (CKD-EPI) 31 December 03, 2024 01:45 PM [facility] CBC/PLT BLOOD Specimen Type: BLOOD No comment entered. Ordering Provider: DALIA COBB Report Released Date/Time: December 03, 2024 01:33 PM Reporting Lab: [address] [address] Performing Lab: [address] [address] WBC 5.6 10*3/uL 5.0-10.0 RBC 4.24 10*6/uL L 4.6-6.2 HGB 12.8 g/dL L 14.0-18.0 HCT 39.4 L 42.0-52.0 MCV 92.9 fL 80.0-94.0 MCH 30.2 pg 27.0-31.0 MCHC 32.5 g/dL 32.0-36.0 PLT 248 10*3/uL 150-450 MPV 10.2 fL 9.0-13.1 RDW 14.2 11.0-16.0 NRBC 0.0 0.0-0.0 December 03, 2024 01:45 PM [facility] AUTOMATED DIFF BLOOD Specimen Type: BLOOD No comment entered. Ordering Provider: DALIA COBB Report Released Date/Time: December 03, 2024 01:33 PM Reporting Lab: [address] [address] Performing Lab: [address] [address] A-LYMPH % 22.1 L 24.0-44.0 A-MONO % [...] 10, 2024 02:00 PM VA-TOBACCO NEVER USED [facility] Tobacco Use History This section includes a history of the smoking, or tobacco-related health factors, that were collected on or before the date of the Encounter. The data comes from the NH facility where the Encounter took place. Date/Time Smoking Status/Tobacco Use Comment F octavia May 19, 2017 03:22 AM NON-TOBACCO USE INPATIENT [facility] Sep 07, 2016 02:41 AM NON-TOBACCO USE INPATIENT [facility] Apr 21, 2004 08:29 AM HF V9 CURRENT NON-SMOKER quit smoking about 30 yrs ago [facility] Sep 06, 2002 02:26 PM HF V9 CURRENT NON-SMOKER QUIT SMOKING ABOUT 31 YRS AGO [facility] Radiology Reports: +/- 30 days of the [...] AM CARD. STRESS TEST W/TREADMILL/...: ROBBIE HUANG [id number] -1940 M Exm Date: DECEMBER 14, 2024@07:49 Req Phys: DALIA COBB Loc: [facility] 16-1 (Req'g Loc) Img Loc: NUCLEAR MEDICINE Service: Unknown [place] [id number] (Case [id number] COMPLETE)CARD. STRESS TEST W/TREADMILL/...(NM Detailed) CPT:93496 Reason for Study: SEE CLINICAL HISTORY Clinical History: Cardiology approval by: Charleser SERVICE CONNECTED? No Active Outpatient Medications (including [...] 14, 2024 Date Verified: DECEMBER 14, 2024 Federal Mediation Commissioner E-Sig: Report: STUDY: GXT with vasodilator REPORT: [...] Staff: CHAO ORR APRN, Cardiology Verified by impression printer for CHAO ORR /CHAO GIRON-CDD [facility] December 14, 2024 07:49 AM [id number] REGADENOSON 0.1MG X4 (LEXISCAN): ROBBIE HUANG [id number] 1940 M Exm Date: DECEMBER 14, 2024@07:49 Req Phys: DALIA COBB Loc: [facility] 16-1 (Req'g Loc) Img Loc: NUCLEAR MEDICINE Service: [place] [address] (Case [id number] COMPLETE)[id number] REGADENOSON 0.1MG X4 (STEPHON(NM Detailed) CPT:J2785 [...] 14, 2024 Date Verified: DECEMBER 14, 2024 Federal Mediation Commissioner E-Sig: Report: STUDY: GXT with vasodilator REPORT: [...] Staff: CHAO ORR APRN, Cardiology Verified by impression printer for CHAO ORR /CHAO GIRON-CDD [facility] December 14, 2024 07:49 AM CARD. STRESS TEST W/TREADMILL/...: ROBBIE HUANG [id number] -1940 M Exm Date: DECEMBER 14, 2024@07:49 Req Phys: DALIA COBB Loc: [facility] 16-1 (Req'g Loc) Im Loc: NUCLEAR MEDICINE Service: Unknown [place] [id number] (Case [id number] COMPLETE)CARD. STRESS TEST W/TREADMILL/...(NM Detailed) CPT:60158 Proc Modifiers : GXT Reason for Study: [...] 14, 2024 Date Verified: DECEMBER 14, 2024 Federal Mediation Commissioner E-Sig: Report: [facility], [place], [place] STUDY: Regadenoson (Lexiscan) SPECT Tc-99m myoview [...] performed with tomographic and three-dimensional reconstructions with Pixium Vision NM/CT 640 system. Exercise: Patient exercised for [...] data sets in addition to the conventional jkh-sspebqspduc-mtlglkujn images. Both filtered back projection and iterative [...] ventricular cavity. 4. SPECT images: Attenuation-corrected and gfx-euaqjbpsrxe-evetazlwx SPECT images were evaluated. SPECT images demonstrate [...] JEB SANTOS MD, CARDIOLOGY ATTENDING Verified by impression printer for JEB SANTOS MD /JEB MANCILLA-CDD [facility] December 14, 2024 07:49 AM 29185(D) MYOCARDIA L SPECT(MULTIPLE): ROBBIE HUANG MICA [id number] -1940 M Exm Date: DECEMBER 14, 2024@07:49 Req Phys: DALIA COBB Pat [facility]: [facility] (Req'g Loc) Im Loc: NUCLEAR MEDICINE Service: Unknown [place] [id number] (Case [id number] COMPLETE)18386(D) MYOCARDIAL SPECT(MULTIPL(NM Detailed) CPT:08175 Proc Modifiers : Lexiscan (Regadenoson) CPT Modifiers [...] YENNY GAMBOA Clinical History: Cardiology approval by: [place]ter SERVICE [...] 14, 2024 Date Verified: DECEMBER 14, 2024 Federal Mediation Commissioner E-Sig: Report: [facility], [place], [place] STUDY: Regadenoson (Lexiscan) SPECT Tc-99m myoview [...] performed with tomographic and three-dimensional reconstructions with Pixium Vision NM/CT 640 system. Exercise: Patient exercised for [...] data sets in addition to the conventional hlf-fcbkvedoark-ptytzgbgk images. Both filtered back projection and iterative [...] ventricular cavity. 4. SPECT images: Attenuation-corrected and oeh-ciofqndpbbc-isbftweyk SPECT images were evaluated. SPECT images demonstrate [...] JEB SANTOS MD, CARDIOLOGY ATTENDING Verified by impression printer for JEB SANTOS MD /JEB MANCILLA-D [facility] December 14, 2024 07:49 AM MYOVIEW(1): ROBBIE HUANG MICA [id number] -1940 M Exm Date: DECEMBER 14, 2024@07:49 Req Phys: DALIA COBB Loc: [facility] 16-1 (Req'g Loc) Img Loc: NUCLEAR MEDICINE Service: [place] [address] (Case [id number] COMPLETE)MYOVIEW(1) (NM Detailed) CPT:A9502 Reason for Study: [...] 14, 2024 Date Verified: DECEMBER 14, 2024 Federal Mediation Commissioner E-Sig: Report: [facility], [place], [place] STUDY: Regadenoson (Lexiscan) SPECT Tc-99m myoview [...] performed with tomographic and three-dimensional reconstructions with Pixium Vision NM/CT 640 system. Exercise: Patient exercised for [...] data sets in addition to the conventional fyn-woqarwvmgxu-jxbilgedq images. Both filtered back projection and iterative [...] ventricular cavity. 4. SPECT images: Attenuation-corrected and mmt-ngfjtgizfyu-lmxccffuw SPECT images were evaluated. SPECT images demonstrate [...] JEB SANTOS MD, CARDIOLOGY ATTENDING Verified by impression printer for JEB SANTOS MD /JEB MANCILLA-CDD [facility] December 14, 2024 07:49 AM [id number] REGADENOSON 0.1MG X1 (LEXISCAN): ROBBIE HUANG MICA [id number] 1940 M Ex Date: DECEMBER 14, 2024@07:49 Req Phys: DALIA COBB [facility] Img Loc: NUCLEAR MEDICINE Service: [place] [address] (Case [id number] COMPLETE)[id number] REGADENOSON 0.1MG X1 (STEPHON(NM Detailed) CPT:J2785 [...] 14, 2024 Date Verified: DECEMBER 14, 2024 Federal Mediation Commissioner E-Sig: Report: [place], [place] STUDY: Regadenoson (Lexiscan) SPECT Tc-99m myoview [...] performed with tomographic and three-dimensional reconstructions with Pixium Vision NM/CT 640 system. Exercise: Patient exercised for [...] data sets in addition to the conventional dzl-kdnaxwerppb-xebyggnvc images. Both filtered back projection and iterative [...] ventricular cavity. 4. SPECT images: Attenuation-corrected and vsr-atjndhyaxoi-pvbsrivfb SPECT images were evaluated. SPECT images demonstrate [...] JEB SANTOS MD, CARDIOLOGY ATTENDING Verified by impression printer for JEB SANTOS MD /JEB MANCILLA-CDD [facility] December 14, 2024 07:49 AM MYOVIEW(2): ROBBIE HUANG [id number] -1940 M Exm Date: DECEMBER 14, 2024@07:49 Req Phys: DALIA COBB Loc: [facility] 16-1 (Req'g Loc) Img Loc: NUCLEAR MEDICINE Service: [place] [address] (Case [id number] COMPLETE)MYOVIEW(2) (NM Detailed) CPT:A9502 Reason for Study: [...] 14, 2024 Date Verified: DECEMBER 14, 2024 Federal Mediation Commissioner E-Sig: Report: [place] STUDY: Regadenoson (Lexiscan) SPECT Tc-99m myoview [...] performed with tomographic and three-dimensional reconstructions with Pixium Vision NM/CT 640 system. Exercise: Patient exercised for [...] data sets in addition to the conventional ykb-njvsundjqvi-xxfugpmqs images. Both filtered back projection and iterative [...] ventricular cavity. 4. SPECT images: Attenuation-corrected and czq-nkpoyqprbse-qknharglf SPECT images were evaluated. SPECT images demonstrate [...] SIGNIFICANT ABNORMALITY, ATTN NEEDED Primary Interpreting Staff: EJB SANTOS MD, CARDIOLOGY ATTENDING Verified by impression printer for JEB SANTOS MD /JEB MANCILLA-CDD [facility] December 14, 2024 07:49 AM TC-99M X1 FROM NON -HEU SOURCE: ROBBIE HUANG [id number] -1940 M Ex Date: DECEMBER 14, 2024@07:49 Req Phys: DALIA COBB Loc: [facility] 16-1 (Req'g Loc) Im Loc: NUCLEAR MEDICINE Service: Unknown [place] [id number] (Case [id number] COMPLETE)TC-99M X1 FROM NON-HEU SOURCE (NM Detailed) [...] 14, 2024 Date Verified: DECEMBER 14, 2024 Federal Mediation Commissioner E-Sig: Report: [facility], [place], [place] STUDY: Regadenoson (Lexiscan) SPECT Tc-99m myoview [...] performed with tomographic and three-dimensional reconstructions with Pixium Vision NM/CT 640 system. Exercise: Patient exercised for [...] data sets in addition to the conventional ift-offawscpxbj-mjwzkdmur images. Both filtered back projection and iterative [...] ventricular cavity. 4. SPECT images: Attenuation-corrected and qka-pozhhuloxiz-chltoopia SPECT images were evaluated. SPECT images demonstrate [...] JEB SANTOS MD, CARDIOLOGY ATTENDING Verified by impression printer for JEB SANTOS MD /JEB MANCILLA-CDD [facility] December 14, 2024 07:49 AM [id number] REGADENOSON 0.1MG X2 (LEXISCAN): ROBBIE HUANGALEM [id number] -1940 M Ex Date: DECEMBER 14, 2024@07:49 Req Phys: DALIA COBB Pat Loc: [facility] 16-1 (Req'g Loc) Img Loc: NUCLEAR MEDICINE Service: [place] [address] (Case [id number] COMPLETE)[id number] REGADENOSON 0.1MG X2 (STEPHON(NM Detailed) CPT:J2785 [...] 14, 2024 Date Verified: DECEMBER 14, 2024 Federal Mediation Commissioner E-Sig: Report: [facility], [place] STUDY: Regadenoson (Lexiscan) SPECT Tc-99m myoview [...] performed with tomographic and three-dimensional reconstructions with Pixium Vision NM/CT 640 system. Exercise: Patient exercised for [...] data sets in addition to the conventional bpt-hubcfwnkmgh-ybkzhuohm images. Both filtered back projection and iterative [...] ventricular cavity. 4. SPECT images: Attenuation-corrected and jxt-lkhidvvqddh-yhpkpvttz SPECT images were evaluated. SPECT images demonstrate [...] JEB SANTOS MD, CARDIOLOGY ATTENDING Verified by impression printer for JEB SANTOS MD /JEB MANCILLA-CDD [facility] December 14, 2024 07:49 AM [id number] REGADENOSON 0.1MG X3 (LEXISCAN): ROBBIE HUANG [id number] -1940 M Exm Date: DECEMBER 14, 2024@07:49 Req Phys: DALIA COBB Pat Loc: [facility] 16-1 (Req'g Loc) Img Loc: NUCLEAR MEDICINE Service: [place] [address] (Case [id number] COMPLETE)[id number] REGADENOSON 0.1MG X3 (STEPHON(NM Detailed) CPT:J2785 [...] 14, 2024 Date Verified: DECEMBER 14, 2024 Federal Mediation Commissioner E-Sig: Report: [place] STUDY: Regadenoson (Lexiscan) SPECT Tc-99m myoview [...] performed with tomographic and three-dimensional reconstructions with Pixium Vision NM/CT 640 system. Exercise: Patient exercised for [...] data sets in addition to the conventional lxe-tmuqrypwebd-xklsbwcin images. Both filtered back projection and iterative [...] ventricular cavity. 4. SPECT images: Attenuation-corrected and wwo-dzferaokaxc-vprzlclzj SPECT images were evaluated. SPECT images demonstrate [...] JEB SANTOS MD, CARDIOLOGY ATTENDING Verified by impression printer for JEB SANTOS MD /JEB MANCILLA-D [facility] December 14, 2024 07:49 AM TC-99M X2 FROM NON -HEU SOURCE: ROBBIE HUANG MICA [id number] -1940 M Ex Date: DECEMBER 14, 2024@07:49 Req Phys: DALIA COBB Loc: [facility] 16-1 (Req'g Loc) [facility] Loc: NUCLEAR MEDICINE Service: [place] [address] (Case [id number] COMPLETE)TC-99M X2 FROM NON-HEU SOURCE (NM Detailed) [...] 14, 2024 Date Verified: DECEMBER 14, 2024 Federal Mediation Commissioner E-Sig: Report: [facility], [place] STUDY: Regadenoson (Lexiscan) SPECT Tc-99m myoview [...] performed with tomographic and three-dimensional reconstructions with Pixium Vision NM/CT 640 system. Exercise: Patient exercised for [...] data sets in addition to the conventional wpb-lgriquhlgdu-jzysnsqed images. Both filtered back projection and iterative [...] ventricular cavity. 4. SPECT images: Attenuation-corrected and ydj-buibsbikllg-averbrtxk SPECT images were evaluated. SPECT images demonstrate [...] JEB SANTOS MD, CARDIOLOGY ATTENDING Verified by impression printer for JEB SANTOS MD /JEB MANCILLA-ISMAEL [facility] Encounter Notes: All associated encounter notes This section contains the clinical notes associated to the Encounter. Date/Time Encounter Note(s) Provider Source December 05, 2024 08:20 AM ADMINISTRATIVE NOT E: LOCAL TITLE: CCC: SCHEDULING ADMINISTRATION STANDARD TITLE: ADMINISTRATIVE NOTE DATE OF NOTE: DECEMBER 05, 2024@08:20:57 ENTRY DATE: DECEMBER 05, 2024@08:20:58 AUTHOR: LILLY ALEXANDER EXP COSIGNER: URGENCY: STATUS: COMPLETED Caller Verification Call Back Number: Emergency Contact: LISS HUANG Emergency Contact Caller/Recipient Relation to Patient: Self Caller Name: ROBBIE HUANG Administrative Administrative Note Reason: Other Administrative Note Comments: Pt would like to discuss and ensure the time for his Echo appt. Pt was called and thinks it's today. Thank you IMPORTANT: This note was created by [facility] Clinical Contact Center staff. Please do not alert the staff member by adding them as a signer for future communications. Alerts are not monitored by this user. /jack/ LILLY ALEXANDER MSA Signed: 12/05/2024 08:20 Receipt Acknowledged By: 12/05/2024 09:11 /jack/ GINA OCHOA medical technologist chief LILLY ALEXANDER-CDD [facility]
--- OUTSIDE RECORDS SUMMARY | 2024-12-05 05:57 | XMS_ITS | Encounter Summary ---
Author Name [facility] [facility] [place] [facility] [place] Address [address] [place] [address] Care Team Providers Care Music Arranger Name Role Phone JORDYNDALIA Primary Care Provider Unavailabl e Insurance Providers: [...] Asif's Name Patient's Relationship to Policy Asif [facility] [place] MEDICARE SECONDARY (NO B EXC) TI AUTOM OTIVE - RETI Jul 25, 2018 [id number] TI KAMARA SPOUSE MEDICARE (WNR) MEDICARE (M) PART B Jan 22, 2007 PART B [id number] JUSTYNA HUANGE PATIENT MEDICARE (WNR) MEDICARE (M) PART A Sep 22, 2005 PART A [id number] JUSTYNA HUANG PATIENT FOR LIFE TRICA RE FOR LIFE Jul 25, 2017 FOR LIFE [id number] ROBBIE HUANG JR PATIENT Selected Encounter This section includes the information on record at [place] for the Encounter. Date/Time Encounter Type Encounter Description Reason Provider Source December 05, 2024 09:57 AM Outpatient Encounter CARDIOLOGY ICD-10-CM I20.9 Angina pectoris, unspecified JEB SANTOS Kal Encounter Template Text not used by [place] Assessments - Encounter Diagnoses This section includes the primary and secondary diagnoses documented for the Encounter. Date/Time Primary/Secondary Diagnosis Diagnosis Name Provider Source December 21, 2024 08:41 AM PRIMARY Angina pectoris, unspecified [facility] Plan of Treatment: Future Appointments (+ 6 months) and Future Tests (+/- 45 days) The Plan of Treatment section includes future care activities for the patient from [facility] [place] [facility] This section includes future appointments and future orders which are active, pending or scheduled. Future Appointments This section includes appointments that were scheduled to occur 6 months from the date of the Encounter, up to a maximum of 20 appointments. The data comes from all [facility]. Appointment Date/Time Appointment Type Appointme nt Facility Name December 06, 2024 12:15 PM AMBULATORY - MEDICINE [facility] December 14, 2024 08:00 AM [facility] Jan 04, 2025 01:30 PM AMBULATORY - SURGERY [facility] Jan 31, 2025 03:00 PM AMBULATORY - MEDICINE [facility] Feb 05, 2025 01:00 PM AMBULATORY - MEDICINE [facility] Feb 05, 2025 02:00 PM AMBULATORY - MEDICINE [facility] Active, Pending, and Scheduled Orders This section includes a listing of several types of active, pending, and scheduled orders, including clinic medications orders, diagnostic test orders, procedure orders and consult orders; where the start date of the order is 45 days before the date of the Encounter or 45 days after the date of theEncounter. The data comes from all [facility]. Test Date/Time Test Type Test Details Facility Name Jan 04, 2025 12:00 AM Imaging - Vascular Lab Order SEGMENTAL PRESSURES, LOWER EXT([place]) UNILAT [facility] Jan 04, 2025 12:00 AM Imaging - Vascular Lab Order VENOUS DUPLEX LOWER EXT BILAT [facility] Lab Results: +/- 30 [...] Type Comment December 03, 2024 02:03 PM [facility] OWN PROTEIN ELECTROPHORESIS URINE Specimen Type: URINE No comment entered. Ordering Provider: DALIA COBB Report Released Date/Time: December 03, 2024 01:24 PM Reporting Lab: [address] [address] Performing Lab: [address] [address] TOTAL PROTEIN 17.0 mg/dL Not Estab. .ALBUMIN ELEC 29.4 .ALPHA 1 ELEC 5.2 .ALPHA 2 ELEC 21.5 .BETA ELEC 19.7 .GAMMA ELEC 24.2 .M-SPIKE Not Observed Not Observed December 03, 2024 02:03 PM [facility] TOTAL PROTEIN URINE Specimen Type: URINE No comment entered. Ordering Provider: DALIA COBB Report Released Date/Time: December 03, 2024 01:24 PM Reporting Lab: [address] [address] Performing Lab: [address] [address] TOTAL PROTEIN 16 mg/dL H 0-14 December 03, 2024 02:03 PM [facility] CREATININE URINE Specimen Type: URINE No comment entered. Ordering Provider: DALIA COBB Report Released Date/Time: December 03, 2024 01:24 PM Reporting Lab: [address] [address] Performing Lab: [address] [address] CREATININE 63.6 mg/dL December 03, 2024 02:03 PM [facility] URINALYSIS URINE Specimen Type: URINE Comment: Microscopic not indicated Ordering Provider: DALIA COBB Report Released Date/Time: December 03, 2024 01:29 PM Reporting Lab: [place] [phone] Performing Lab: [place] [phone] URINE COLOR Light Yellow Colorless-Yello w APPEARANCE Clear Clear UROBILINOGEN Normal mg/dL Normal URINE BLOOD Negative Negative URINE BILIRUBIN Negative Negative URINE KETONES Negative mg/dL Negative URINE PROTEIN Negative mg/dL Negative-Tr rachell URINE PH 5.0 4.5-8.0 URINE NITRITE Negative Negative URINE LEUKOCYTE EST Negative Negative SPECIFIC GRAVITY 1.014 1.005-1.030 URINE GLUCOSE >1000 mg/dL H Negative December 03, 2024 01:45 PM [facility] ANTI-NUCLEAR Ab SERUM Specimen Type: SERUM Comment: Atypical speckled resembling DFS (Dense-Fine Speckled. The DFS pattern has a low prevalence in systemic autoimmune rheumatic diseases. The clinical association remains unclear. Due to its close resemblance to other patterns of clinical relevance, (i.e. Homogeneous, speckled, and mixed patterns) follow-up testing may be recommended. ANTI-NUCLEAR Ab reported incorrectly as Atypical Speckled by [[id number]]. Changed to 1:320 Atypical Speckled on December 06, 2024@12:59 by [[id number]]. Ordering Provider: DALIA COBB Report Released Date/Time: December 03, 2024 01:38 PM Reporting Lab: [place] [phone] Performing Lab: [place] [phone] ANTI-NUCLEAR Ab 1:320 Atypical Speckled <1:80 December 03, 2024 01:45 PM [facility] ROSALIE (SERUM) SERUM Specimen Type: SERUM Comment: BNP results less than or equal to 100 pg/ml are sales and marketing representative of normal values in patients without CHF. BNP results greater than 100 pg/ml are considered abnormal and suggestive of CHF. Higher BNP concentrations in the first 72 hours after Acute Coronary Syndrome are associated with an increased risk of , myocardial infarction and CHF. Ordering Provider: DALIA COBB Report Released Date/Time: December 03, 2024 01:24 PM Reporting Lab: [place] [phone] Performing Lab: [facility] [address] [address] .ALBUMIN ELEC 3.6 g/dL 2.9-4.4 .ALPHA 1 [...] INTERPRETATION Comment December 03, 2024 01:45 PM [facility] JORDAN SCREEN SERUM Specimen Type: SERUM No comment entered. Ordering Provider: DALIA COBB Report Released Date/Time: December 03, 2024 01:38 PM Reporting Lab: [place] [phone] Performing Lab: [place] [phone] JORDAN SCREEN Negative Negative December 03, 2024 01:45 PM [facility] BNP (MCCALL) PLASMA Specimen Type: PLASMA Comment: BNP results less than or equal to 100 pg/ml are sales and marketing representative of normal values in patients without CHF. BNP results greater than 100 pg/ml are considered abnormal and suggestive of CHF. Higher BNP concentrations in the first 72 hours after Acute Coronary Syndrome are associated with an increased risk of , myocardial infarction and CHF. Ordering Provider: DALIA COBB Report Released Date/Time: December 03, 2024 01:24 PM Reporting Lab: [address] [address] Performing Lab: [address] [address] BNP (MCCALL) 225 pg/mL H 0-100 December 03, 2024 01:45 PM [facility] TOTAL PLASMA Specimen Type: PLASM A [...] December 03, 2024 01:33 PM Reporting Lab: [address] [address] Performing Lab: [address] [address] CK TOTAL 76 U/L 30-200 December 03, 2024 01:45 PM [facility] PANEL 5 PLASMA Specimen [...] December 03, 2024 01:24 PM Reporting Lab: [address] [address] Performing Lab: [address] [address] CREATININE 2.05 mg/dL H 0.72-1.25 UREA NITROGEN [...] (CKD-EPI) 31 December 03, 2024 01:45 PM [facility]/PLT BLOOD Specimen Type: BLOOD No comment entered. Ordering Provider: DALIA COBB Report Released Date/Time: December 03, 2024 01:33 PM Reporting Lab: [address] [address] Performing Lab: [address] [address] WBC 5.6 10*3/uL 5.0-10.0 RBC 4.24 10*6/uL L 4.6-6.2 HGB 12.8 g/dL L 14.0-18.0 HCT 39.4 L 42.0-52.0 MCV 92.9 fL 80.0-94.0 MCH 30.2 pg 27.0-31.0 MCHC 32.5 g/dL 32.0-36.0 PLT 248 10*3/uL 150-450 MPV 10.2 fL 9.0-13.1 RDW 14.2 11.0-16.0 NRBC 0.0 0.0-0.0 December 03, 2024 01:45 PM [facility] AUTOMATED DIFF BLOOD Specimen Type: BLOOD No comment entered. Ordering Provider: DALIA COBB Report Released Date/Time: December 03, 2024 01:33 PM Reporting Lab: [address] [address] Performing Lab: [facility] [address] [facility] [address] A-LYMPH % 22.1 L 24.0-44.0 A-MONO % [...] 10, 2024 02:00 PM VA-TOBACCO NEVER USED [facility] Tobacco Use History This section includes a history of the smoking, or tobacco-related health factors, that were collected on or before the date of the Encounter. The data comes from the [place] facility where the Encounter took place. Date/Time Smoking Status/Tobacco Use Comment Ricardo dudley May 19, 2017 03:22 AM NON-TOBACCO USE INPATIENT [facility] Sep 07, 2016 02:41 AM NON-TOBACCO USE INPATIENT [facility] Apr 21, 2004 08:29 AM HF V9 CURRENT NON-SMOKER quit smoking about 30 yrs ago [facility] Sep 06, 2002 02:26 PM HF V9 CURRENT NON-SMOKER QUIT SMOKING ABOUT 31 YRS AGO [facility] Radiology Reports: +/- 30 days [...] the Encounter. The data comes from all [place] treatment facilities. Date/Time Radiology Report Provider Source December 14, 2024 07:49 AM CARD. STRESS TEST W/TREADMILL/...: ROBBIE HUANG MICA [id number] -1940 M Exm Date: DECEMBER 14, 2024@07:49 Req Phys: DALIA COBB Loc: [facility] 16-1 (Req'g Loc) Img Loc: NUCLEAR MEDICINE Service: [place] [address] (Case [id number] COMPLETE)CARD. STRESS TEST W/TREADMILL/...(NM Detailed) CPT:23791 Reason for Study: SEE CLINICAL HISTORY Clinical History: Cardiology approval by: [facility] SERVICE CONNECTED? No Active Outpatient Medications [...] 14, 2024 Date Verified: DECEMBER 14, 2024 Quality Control E-Sig: Report: STUDY: GXT with vasodilator REPORT: [...] Staff: CHAO ORR APRN, Cardiology Verified by district administrative assistant for CHAO ORR /CHAO GIRON-ISMAEL [facility] December 14, 2024 07:49 AM [id number] REGADENOSON 0.1MG X4 (LEXISCAN): ROBBIE HUANG MICA [id number] -1940 M Exm Date: DECEMBER 14, 2024@07:49 Req Phys: DALIA COBB Pat Loc: [facility] 16-1 (Req'g Loc) Img Loc: NUCLEAR MEDICINE Service: [place] [address] (Case [id number] COMPLETE)[id number] REGADENOSON 0.1MG X4 (STEPHON(NM Detailed) CPT:J2785 [...] 14, 2024 Date Verified: DECEMBER 14, 2024 Quality Control E-Sig: Report: STUDY: GXT with vasodilator REPORT: [...] Staff: CHAO ORR APRN, Cardiology Verified by district administrative assistant for CHAO ORR /CHAO GIRON-D [facility] December 14, 2024 07:49 AM CARD. STRESS TEST W/TREADMILL/...: ROBBIE HUANG [id number] -1940 M Exm Date: DECEMBER 14, 2024@07:49 Req Phys: DALIA COBB Loc: [facility] 16-1 (Req'g Loc) [facility] Loc: NUCLEAR MEDICINE Service: [place] [address] (Case [id number] COMPLETE)CARD. STRESS TEST W/TREADMILL/...(NM Detailed) CPT:67245 Proc Modifiers : GXT Reason for Study: SEE CLINICAL HISTORY Clinical History: Cardiology approval by: [facility] CONNECTED? No Active Outpatient Medications [...] 14, 2024 Date Verified: DECEMBER 14, 2024 Quality Control E-Sig: Report: [facility], [place], [place] STUDY: Regadenoson (Lexiscan) SPECT Tc-99m myoview [...] performed with tomographic and three-dimensional reconstructions with Bitium NM/CT 640 system. Exercise: Patient exercised for [...] data sets in addition to the conventional bee-uazcijwynva-vqkcxixsg images. Both filtered back projection and iterative [...] ventricular cavity. 4. SPECT images: Attenuation-corrected and vxd-rluweftyicf-pjsinmsib SPECT images were evaluated. SPECT images demonstrate [...] JEB SANTOS MD, CARDIOLOGY ATTENDING Verified by district administrative assistant for JEB SANTOS MD /JEB MANCILLA-CAMILAD [facility] December 14, 2024 07:49 AM 60873(D) MYOCARDIA L SPECT(MULTIPLE): ROBBIE HUANG [facility] [id number] 1940 M Exm Date: DECEMBER 14, 2024@07:49 Req Phys: DALIA COBB Loc: [facility] 16-1 (Req'g Loc) Img Loc: NUCLEAR MEDICINE Service: [place] [address] (Case [id number] COMPLETE)23665(D) MYOCARDIAL SPECT(MULTIPL(NM Detailed) CPT:77755 Proc Modifiers : Lexiscan (Regadenoson) CPT Modifiers [...] YENNY GAMBOA Clinical History: Cardiology approval by: [facility] SERVICE CONNECTED? No Active Outpatient Medications [...] 14, 2024 Date Verified: DECEMBER 14, 2024 Quality Control E-Sig: Report: [place], [place] STUDY: Regadenoson (Lexiscan) SPECT Tc-99m myoview [...] performed with tomographic and three-dimensional reconstructions with [employer] NM/CT 640 system. Exercise: Patient exercised for [...] data sets in addition to the conventional jeh-pbywwqfwpuo-dzymfewvo images. Both filtered back projection and iterative [...] ventricular cavity. 4. SPECT images: Attenuation-corrected and geb-klbybkllfim-xnyslobrg SPECT images were evaluated. SPECT images demonstrate [...] JEB SANTOS MD, CARDIOLOGY ATTENDING Verified by district administrative assistant for JEB SANTOS MD /JEB [facility] December 14, 2024 07:49 AM MYOVIEW(1): ROBBIE HUANG [id number] 1940 M Ex Date: DECEMBER 14, 2024@07:49 Req Phys: DALIA COBB Loc: [facility] 16-1 (Req'g Loc) Im Loc: NUCLEAR MEDICINE Service: [place] [address] (Case [id number] COMPLETE)MYOVIEW(1) (NM Detailed) CPT:A9502 Reason for Study: [...] 14, 2024 Date Verified: DECEMBER 14, 2024 Quality Control E-Sig: Report: [facility], [place], [place] STUDY: Regadenoson (Lexiscan) SPECT Tc-99m myoview [...] performed with tomographic and three-dimensional reconstructions with Bitium NM/CT 640 system. Exercise: Patient exercised for [...] data sets in addition to the conventional zoe-gsospukigjn-vpwkafmww images. Both filtered back projection and iterative [...] ventricular cavity. 4. SPECT images: Attenuation-corrected and lht-rxakikhimls-krqbxobrp SPECT images were evaluated. SPECT images demonstrate [...] JEB SANTOS MD, CARDIOLOGY ATTENDING Verified by district administrative assistant for JEB SANTOS MD /JEB MANCILLA-CDD [facility] December 14, 2024 07:49 AM MYOVIEW(2): ROBBIE HUANG [id number] -1940 M Exm Date: DECEMBER 14, 2024@07:49 Req Phys: DALIA COBB Pat Loc: [facility] 16-1 (Req'g Loc) Img Loc: NUCLEAR MEDICINE Service: [place] [address] (Case [id number] COMPLETE)MYOVIEW(2) (NM Detailed) CPT:A9502 Reason for Study: [...] 14, 2024 Date Verified: DECEMBER 14, 2024 Quality Control E-Sig: Report: [facility], [place] STUDY: Regadenoson (Lexiscan) SPECT Tc-99m myoview [...] performed with tomographic and three-dimensional reconstructions with Bitium NM/CT 640 system. Exercise: Patient exercised for [...] data sets in addition to the conventional ruv-lfqxjwawpaz-lkewperbw images. Both filtered back projection and iterative [...] ventricular cavity. 4. SPECT images: Attenuation-corrected and rnm-eihgonphfnq-ehvwiuwds SPECT images were evaluated. SPECT images demonstrate [...] JEB SANTOS MD, CARDIOLOGY ATTENDING Verified by district administrative assistant for JEB SANTOS MD /JEB MANCILLA-CDD [facility] December 14, 2024 07:49 AM [id number] REGADENOSON 0.1MG X1 (LEXISCAN): ROBBIE HUANGALEM [id number] -1940 M Exm Date: DECEMBER 14, 2024@07:49 Req Phys: DALIA COBB Loc: [facility] 16-1 (Req'g Loc) Img Loc: NUCLEAR MEDICINE Service: Unknown [place] [id number] (Case [id number] COMPLETE)[id number] REGADENOSON 0.1MG X1 (STEPHON(NM Detailed) CPT:J2785 [...] 14, 2024 Date Verified: DECEMBER 14, 2024 Quality Control E-Sig: Report: [place] STUDY: Regadenoson (Lexiscan) SPECT Tc-99m myoview [...] performed with tomographic and three-dimensional reconstructions with Bitium NM/CT 640 system. Exercise: Patient exercised for [...] data sets in addition to the conventional fgr-wxxltnukoyg-lxwfawdef images. Both filtered back projection and iterative [...] ventricular cavity. 4. SPECT images: Attenuation-corrected and jqk-lmgrnhyxvdu-ulgnkxpex SPECT images were evaluated. SPECT images demonstrate [...] JEB SANTOS MD, CARDIOLOGY ATTENDING Verified by district administrative assistant for JEB SANTOS MD /JEB MANCILLA-CDD [facility] December 14, 2024 07:49 AM TC-99M X1 FROM NON -HEU SOURCE: ROBBIE HUANG [facility] [place] [id number] [facility]-1940 M [facility] Date: DECEMBER 14, 2024@07:49 Req Phys: DALIA COBB Loc: [facility] 16-1 (Req'g Loc) Im Loc: NUCLEAR MEDICINE Service: Unknown [place] [id number] (Case [id number] COMPLETE)TC-99M X1 FROM NON-HEU SOURCE (NM Detailed) [...] 14, 2024 Date Verified: DECEMBER 14, 2024 Quality Control E-Sig: Report: [facility], [place], [place] STUDY: Regadenoson (Lexiscan) SPECT Tc-99m myoview [...] performed with tomographic and three-dimensional reconstructions with Bitium NM/CT 640 system. Exercise: Patient exercised for [...] data sets in addition to the conventional glg-shwlsycymax-itvvplerl images. Both filtered back projection and iterative [...] ventricular cavity. 4. SPECT images: Attenuation-corrected and rln-apnznfjhwdp-dtbdsnhjt SPECT images were evaluated. SPECT images demonstrate [...] JEB SANTOS MD, CARDIOLOGY ATTENDING Verified by district administrative assistant for JEB SANTOS MD /JEB MANCILLA-[facility] December 14, 2024 07:49 AM [id number] REGADENOSON 0.1MG X2 (LEXISCAN): ROBBIE HUANG [id number] -1940 M Exm Date: DECEMBER 14, 2024@07:49 Req Phys: JORDYNDALIA Pat Loc: [facility] 16-1 (Req'g Loc) Img Loc: NUCLEAR MEDICINE Service: [place] [address] (Case [id number] COMPLETE)[id number] REGADENOSON 0.1MG X2 (STEPHON(NM Detailed) CPT:J2785 [...] 14, 2024 Date Verified: DECEMBER 14, 2024 Quality Control E-Sig: Report: [facility], [place] STUDY: Regadenoson (Lexiscan) SPECT Tc-99m myoview [...] performed with tomographic and three-dimensional reconstructions with Bitium NM/CT 640 system. Exercise: Patient exercised for [...] data sets in addition to the conventional iik-fudseqeejnm-qskayidqx images. Both filtered back projection and iterative [...] ventricular cavity. 4. SPECT images: Attenuation-corrected and xht-jzngxkysvsp-fcwezwzmn SPECT images were evaluated. SPECT images demonstrate [...] JEB SANTOS MD, CARDIOLOGY ATTENDING Verified by district administrative assistant for JEB SANTOS MD /JBE MANCILLA-CDD [facility] December 14, 2024 07:49 AM [id number] REGADENOSON 0.1MG X3 (LEXISCAN): ROBBIE HUANGALEM [id number] -1940 M Exm Date: DECEMBER 14, 2024@07:49 Req Phys: DALIA COBB Pat Loc: [facility] 16-1 (Req'g Loc) Img Loc: NUCLEAR MEDICINE Service: [place] [address] (Case [id number] COMPLETE)[id number] REGADENOSON 0.1MG X3 (STEPHON(NM Detailed) CPT:J2785 Reason for Study: SEE CLINICAL HISTORY Clinical History: Cardiology approval by: [employer] [facility] CONNECTED? No Active Outpatient Medications (including [...] 14, 2024 Date Verified: DECEMBER 14, 2024 Quality Control E-Sig: Report: [facility] [place] STUDY: Regadenoson (Lexiscan) SPECT Tc-99m myoview [...] performed with tomographic and three-dimensional reconstructions with Bitium NM/CT 640 system. Exercise: Patient exercised for [...] data sets in addition to the conventional yyt-texvzftqtpn-swhgqcaxf images. Both filtered back projection and iterative [...] ventricular cavity. 4. SPECT images: Attenuation-corrected and row-qqlionymhpv-lmkdwfnty SPECT images were evaluated. SPECT images demonstrate [...] JEB SANTOS MD, CARDIOLOGY ATTENDING Verified by district administrative assistant for JEB SANTOS MD /JEB MANCILLA-D [facility] December 14, 2024 07:49 AM TC-99M X2 FROM NON -HEU SOURCE: ROBBIE HUANG [id number] -1940 M Ex Date: DECEMBER 14, 2024@07:49 Req Phys: DALIA COBB Loc: [facility] 16-1 (Req'g Loc) [facility] Loc: NUCLEAR MEDICINE Service: [place] [address] (Case [id number] COMPLETE)TC-99M X2 FROM NON-HEU SOURCE (NM Detailed) CPT:Q9969 Reason for Study: SEE CLINICAL HISTORY Clinical History: Cardiology approval by: [facility] SERVICE CONNECTED? No Active Outpatient Medications [...] 14, 2024 Date Verified: DECEMBER 14, 2024 Quality Control E-Sig: Report: [facility], [place] STUDY: Regadenoson (Lexiscan) SPECT Tc-99m myoview [...] performed with tomographic and three-dimensional reconstructions with Bitium NM/CT 640 system. Exercise: Patient exercised for [...] data sets in addition to the conventional ejy-ipnwmachjld-lhcpxcgyy images. Both filtered back projection and iterative [...] ventricular cavity. 4. SPECT images: Attenuation-corrected and swe-axqgsbwaahc-vnbffvrks SPECT images were evaluated. SPECT images demonstrate [...] JEB SANTOS MD, CARDIOLOGY ATTENDING Verified by district administrative assistant for JEB SANTOS MD /JEB MANCLILA [facility] Encounter Notes: All associated encounter notes This section contains the clinical notes associated to the Encounter. Date/Time Encounter Note(s) Provider Source December 05, 2024 09:57 AM CARDIOLOGY CONSULT : LOCAL TITLE: CARDIOLOGY GENERAL eCONSULT RESPONSE STANDARD TITLE: CARDIOLOGY CONSULT DATE OF NOTE: DECEMBER 05, 2024@09:57 ENTRY DATE: DECEMBER 05, 2024@09:57:11 AUTHOR: JEB SANTOS EXP COSIGNER: URGENCY: STATUS: COMPLETED CARDIOLOGY (GENERAL) eCONSULT RESPONSE: Summary of Review and Recommendations: Usual cardiovascular disease prevention/mitigation strategies including use of a statin, blood pressure control (according to guidelines), tobacco avoidance, and plant based diet (with weight loss as indicated) should be encouraged. Reasonable to obtain SPECT for risk stratification. This request for nuclear SPECT is approved by [facility] -- test to be be ordered by requesting service. Angina, 5 minutes /es/ JEB SANTOS MD CARDIOLOGY ATTENDING Signed: 12/05/2024 09:58 JEB SANTOS [facility]
--- OUTSIDE RECORDS SUMMARY | 2024-12-05 09:22 | XMS_ITS | Encounter Summary ---
Author Name [facility] [place] [facility] [place] [facility] [place] [facility] [place] Address [address] [place] [address] Care Team Providers Care Ladle Builder Name Role Phone JORDYN FARHAT Primary Care [...] AUTOM OTIVE - RETI Jul 25, 2018 [id number] MALUTI PERKINS JORDAN SPOUSE MEDICARE (WNR) MEDICARE (M) PART B Jan 22, 2007 PART B [id number] MALUJUSTYNA TINAJERO RGE PATIENT MEDICARE (WNR) MEDICARE (M) PART A Sep 22, 2005 PART A [id number] REINAJUSTYNA AKBAR PATIENT FOR LIFE TRICA RE FOR LIFE Jul 25, 2017 FOR LIFE [id number] ROBBIE HUANG JR PATIENT Selected Encounter This section includes the information on record at [place] for the Encounter. Date/Time Encounter Type Encounter Description Reason Pro vider Source December 05, 2024 01:22 PM Outpatient Encounter ADMIN PAT ACTIVTIES (MASNONCT) IHE Encounter Template Text not used by [place] Plan of Treatment: Future Appointments (+ 6 [...] The data comes from all [place] treatment [facility]. Appointment Date/Time Appointment Type Appointme nt Facility Name December 06, 2024 12:15 PM [facility] December 14, 2024 08:00 AM [facility] - NONE [place] [facility] Jan 04, 2025 01:30 PM AMBULATORY - SURGERY [place] [facility] Jan 31, 2025 03:00 PM [facility] Feb 05, 2025 01:00 PM AMBULATORY - MEDICINE [facility] Feb 05, 2025 02:00 PM AMBULATORY - MEDICINE [facility] Active, Pending, and Scheduled Orders This section includes a listing of several types of active, pending, and scheduled orders, including clinic medications orders, diagnostic test orders, procedure orders and consult orders; where the start date of the order is 45 days before the date of the Encounter or 45 days after the date of theEncounter. The data comes from all [facility]. Test Date/Time Test Type Test Details Facility Name Jan 04, 2025 12:00 AM Imaging - Vascular Lab Order SEGMENTAL PRESSURES, LOWER EXT([place]) UNILAT [facility] Jan 04, 2025 12:00 AM Imaging - Vascular Lab Order VENOUS DUPLEX LOWER EXT BILAT [facility] Lab Results: +/- 30 days of [...] Type Comment December 03, 2024 02:03 PM [facility] OWN PROTEIN ELECTROPHORESIS URINE Specimen Type: URINE No comment entered. Ordering Provider: FARHAT BRIGGS Report Released Date/Time: December 03, 2024 01:24 PM Reporting Lab: [address] [address] Performing Lab: [address] [address] TOTAL PROTEIN 17.0 mg/dL Not Estab. .ALBUMIN ELEC 29.4 .ALPHA 1 ELEC 5.2 .ALPHA 2 ELEC 21.5 .BETA ELEC 19.7 .GAMMA ELEC 24.2 .M-SPIKE Not Observed Not Observed December 03, 2024 02:03 PM [facility] CREATININE URINE Specimen Type: URINE No comment entered. Ordering Provider: FARHAT BRIGGS Report Released Date/Time: December 03, 2024 01:24 PM Reporting Lab: [address] [address] Performing Lab: [address] [address] CREATININE 63.6 mg/dL December 03, 2024 02:03 PM [facility] TOTAL PROTEIN URINE Specimen Type: URINE No comment entered. Ordering Provider: FARHAT BRIGGS Report Released Date/Time: December 03, 2024 01:24 PM Reporting Lab: [address] [address] Performing Lab: [address] [address] TOTAL PROTEIN 16 mg/dL H 0-14 December 03, 2024 02:03 PM [facility] URINALYSIS URINE Specimen Type: URINE Comment: Microscopic not indicated Ordering Provider: FARHAT BRIGGS Report Released Date/Time: December 03, 2024 01:29 PM Reporting Lab: [address] [address] Performing Lab: [address] [address] URINE COLOR Light Yellow Colorless-Yello w APPEARANCE Clear Clear UROBILINOGEN Normal mg/dL Normal URINE BLOOD Negative Negative URINE BILIRUBIN Negative Negative URINE KETONES Negative mg/dL Negative URINE PROTEIN Negative mg/dL Negative-Tr rachell URINE PH 5.0 4.5-8.0 URINE NITRITE Negative Negative URINE LEUKOCYTE EST Negative Negative SPECIFIC GRAVITY 1.014 1.005-1.030 URINE GLUCOSE >1000 mg/dL H Negative December 03, 2024 01:45 PM [facility] ANTI-NUCLEAR Ab SERUM Specimen Type: SERUM Comment: Atypical speckled resembling DFS (Dense-Fine Speckled. The DFS pattern has a low prevalence in systemic autoimmune rheumatic diseases. The clinical association remains unclear. Due to its close resemblance to other patterns of clinical relevance, (i.e. Homogeneous, speckled, and mixed patterns) follow-up testing may be recommended. ANTI-NUCLEAR Ab reported incorrectly as Atypical Speckled by [[id number]]. Changed to 1:320 Atypical Speckled on December 06, 2024@12:59 by [[id number]]. Ordering Provider: FARHAT BRIGGS Report Released Date/Time: December 03, 2024 01:38 PM Reporting Lab: [address] [address] Performing Lab: [address] [address] ANTI-NUCLEAR Ab 1:320 Atypical Speckled <1:80 December 03, 2024 01:45 PM [facility] ROSALIE (SERUM) SERUM Specimen Type: SERUM Comment: BNP results less than or equal to 100 pg/ml are route service representative of normal values in patients without CHF. BNP results greater than 100 pg/ml are considered abnormal and suggestive of CHF. Higher BNP concentrations in the first 72 hours after Acute Coronary Syndrome are associated with an increased risk of , myocardial infarction and CHF. Ordering Provider: FARHAT BRIGGS Report Released Date/Time: December 03, 2024 01:24 PM Reporting Lab: [address] [address] Performing Lab: [address] [address] .ALBUMIN ELEC 3.6 g/dL 2.9-4.4 .ALPHA 1 [...] INTERPRETATION Comment December 03, 2024 01:45 PM [facility] JORDAN SCREEN SERUM Specimen Type: SERUM No comment entered. Ordering Provider: FARHAT BRIGGS Report Released Date/Time: December 03, 2024 01:38 PM Reporting Lab: [address] [address] Performing Lab: [address] [address] JORDAN SCREEN Negative Negative December 03, 2024 01:45 PM [facility] BNP (Casengo) PLASMA Specimen Type: PLASMA Comment: BNP results less than or equal to 100 pg/ml are route service representative of normal values in patients without CHF. BNP results greater than 100 pg/ml are considered abnormal and suggestive of CHF. Higher BNP concentrations in the first 72 hours after Acute Coronary Syndrome are associated with an increased risk of , myocardial infarction and CHF. Ordering Provider: FARHAT BRIGGS Report Released Date/Time: December 03, 2024 01:24 PM Reporting Lab: [address] [address] Performing Lab: [address] [address] BNP (MCCALL) 225 pg/mL H 0-100 December 03, 2024 01:45 PM [facility] CK TOTAL PLASMA Specimen Type: [...] December 03, 2024 01:33 PM Reporting Lab: [address] [address] Performing Lab: [address] [address] CK TOTAL 76 U/L 30-200 December 03, 2024 01:45 PM [facility] PANEL 5 PLASMA Specimen Type: PLASM [...] December 03, 2024 01:24 PM Reporting Lab: [address] [address] Performing Lab: [address] [address] CREATININE 2.05 mg/dL H 0.72-1.25 UREA NITROGEN [...] (CKD-EPI) 31 December 03, 2024 01:45 PM [facility] CBC/PLT BLOOD Specimen Type: BLOOD No comment entered. Ordering Provider: FARHAT BRIGGS Report Released Date/Time: December 03, 2024 01:33 PM Reporting Lab: [address] [address] Performing Lab: [address] [address] WBC 5.6 10*3/uL 5.0-10.0 RBC 4.24 10*6/uL L 4.6-6.2 HGB 12.8 g/dL L 14.0-18.0 HCT 39.4 L 42.0-52.0 MCV 92.9 fL 80.0-94.0 MCH 30.2 pg 27.0-31.0 MCHC 32.5 g/dL 32.0-36.0 PLT 248 10*3/uL 150-450 MPV 10.2 fL 9.0-13.1 RDW 14.2 11.0-16.0 NRBC 0.0 0.0-0.0 December 03, 2024 01:45 PM [facility] AUTOMATED DIFF BLOOD Specimen Type: BLOOD No comment entered. Ordering Provider: FARHAT BRIGGS Report Released Date/Time: December 03, 2024 01:33 PM Reporting Lab: [address] [address] Performing Lab: [address] [address] A-LYMPH % 22.1 L 24.0-44.0 A-MONO % [...] 25, 2023 01:30 PM VA-TOBACCO FORMER USER [facility] Tobacco Use History This section includes a history of the smoking, or tobacco-related health factors, that were collected on or before the date of the Encounter. The data comes from the [place] facility where the Encounter took place. Date/Time Smoking Status/Tobacco Use Comment F acility May 25, 2023 01:30 PM VA-TOBACCO QUIT 15 YRS OR MORE [facility] Jun 18, 2022 01:30 PM VA-TOBACCO FORMER USER [facility] Jun 18, 2022 01:30 PM VA-TOBACCO QUIT 15 YRS OR MORE [facility] Jun 29, 2021 03:00 PM VA-TOBACCO FORMER USER [facility] Jun 29, 2021 03:00 PM VA-TOBACCO QUIT 15 YRS OR MORE [facility] Jul 28, 2020 09:30 AM VA-TOBACCO FORMER USER [facility] Jul 28, 2020 09:30 AM VA-TOBACCO QUIT 15 YRS OR MORE [facility] Jul 09, 2019 03:25 PM VA-TOBACCO NEVER USED [facility] Aug 24, 2018 02:06 PM VA-TOBACCO FORMER USER [facility] Aug 24, 2018 02:06 PM VA-TOBACCO QUIT 15 YRS OR MORE [facility] Sep 22, 2017 07:57 AM V9 LIFETIME NON-USER OF TOBACCO [facility] December 15, 2015 08:07 AM V9 LIFETIME NON-USER OF TOBACCO [facility] Jun 14, 2014 07:48 AM V9 LIFETIME NON-USER OF TOBACCO [facility] Jun 07, 2013 10:08 AM V9 LIFETIME NON-USER OF TOBACCO [facility] May 29, 2012 10:26 AM V9 LIFETIME NON-USER OF TOBACCO [facility] Nov 22, 2011 02:23 PM V9 LIFETIME NON-USER OF TOBACCO [facility] Oct 23, 2010 09:22 AM V9 QUIT TOBACCO >7 YEARS AGO [facility] May 30, 2007 03:08 PM V9 LIFETIME NON-USER OF TOBACCO [facility] Radiology Reports: +/- 30 days of [...] the Encounter. The data comes from all [facility] facilities. Date/Time Radiology Report Provider Source December 14, 2024 07:49 AM CARD. STRESS TEST W/TREADMILL/...: ROBBIE HUANG [id number] -1940 M Exm Date: DECEMBER 14, 2024@07:49 Req Phys: FARHAT BRIGGS Loc: [facility] 16-1 (Req'g Loc) Img Loc: NUCLEAR MEDICINE Service: [place] [address] (Case [id number] COMPLETE)CARD. STRESS TEST W/TREADMILL/...(NM Detailed) CPT:52745 Reason for Study: SEE CLINICAL HISTORY Clinical History: Cardiology approval by: [facility] CONNECTED? No Active Outpatient Medications (including [...] 14, 2024 Date Verified: DECEMBER 14, 2024 Clean Energy Policy Analyst E-Sig: Report: STUDY: GXT with vasodilator REPORT: [...] Staff: CHAO ORR APRN, Cardiology Verified by field service rep for CHAO ORR /CHAO GIRON-D [facility] December 14, 2024 07:49 AM [id number] REGADENOSON 0.1MG X4 (LEXISCAN): ROBBIE HUANG [id number] -1940 M Exm Date: DECEMBER 14, 2024@07:49 Req Phys: FARHAT BRIGGS Loc: [facility] 16-1 (Req'g Loc) Img Loc: NUCLEAR MEDICINE Service: [place] [address] (Case [id number] COMPLETE)[id number] REGADENOSON 0.1MG X4 (STEPHON(NM Detailed) CPT:J2785 [...] 14, 2024 Date Verified: DECEMBER 14, 2024 Clean Energy Policy Analyst E-Sig: Report: STUDY: GXT with vasodilator REPORT: [...] Staff: CHAO ORR APRN, Cardiology Verified by field service rep for CHAO ORR /CHAO GIRON-ISMAEL [facility] December 14, 2024 07:49 AM CARD. STRESS TEST W/TREADMILL/...: ROBBIE HUANG [id number] -1940 M Exm Date: DECEMBER 14, 2024@07:49 Req Phys: FARHAT BRIGGS Loc: [facility] PACT [facility] 16-1 (Req'g Loc) Img Loc: NUCLEAR MEDICINE Service: [place] [address] (Case [id number] COMPLETE)CARD. STRESS TEST W/TREADMILL/...(NM Detailed) CPT:85351 Proc Modifiers : GXT Reason for Study: [...] 14, 2024 Date Verified: DECEMBER 14, 2024 Clean Energy Policy Analyst E-Sig: Report: [place], [place] STUDY: Regadenoson (Lexiscan) SPECT Tc-99m myoview [...] performed with tomographic and three-dimensional reconstructions with Proter[employer] NM/CT 640 system. Exercise: Patient exercised for [...] data sets in addition to the conventional zsu-snkuxjarzoh-oytztlvcj images. Both filtered back projection and iterative [...] ventricular cavity. 4. SPECT images: Attenuation-corrected and xns-norjornruoy-xfydpixap SPECT images were evaluated. SPECT images demonstrate [...] JEB SANTOS MD, CARDIOLOGY ATTENDING Verified by field service rep for JEB SANTOS MD /JEB MANCILLA-CDD [facility] December 14, 2024 07:49 AM 45903(D) MYOCARDIA L SPECT(MULTIPLE): ROBBIE HUANG [id number] -1940 M Exm Date: DECEMBER 14, 2024@07:49 Req Phys: FARHAT BRIGGS Pat Loc: [facility] 16-1 (Req'g Loc) Im Loc: NUCLEAR MEDICINE Service: [place] [address] (Case [id number] COMPLETE)23412(D) MYOCARDIAL SPECT(MULTIPL(NM Detailed) CPT:81147 Proc Modifiers : Lexiscan (Regadenoson) CPT Modifiers [...] YENNY GAMBOA Clinical History: Cardiology approval by: [facility] CONNECTED? No Active Outpatient Medications (including [...] 14, 2024 Date Verified: DECEMBER 14, 2024 Clean Energy Policy Analyst E-Sig: Report: [place], [place] STUDY: Regadenoson (Lexiscan) SPECT Tc-99m myoview [...] performed with tomographic and three-dimensional reconstructions with [employer]/CT 640 system. Exercise: Patient exercised for 6 [...] data sets in addition to the conventional nfe-ncjdgowystj-qyraiwebm images. Both filtered back projection and iterative [...] ventricular cavity. 4. SPECT images: Attenuation-corrected and tnc-ailekxzvzum-tbcaobbkc SPECT images were evaluated. SPECT images demonstrate [...] JEB SANTOS MD, CARDIOLOGY ATTENDING Verified by field service rep for JEB SANTOS MD /JEB MANCILLA-CDD [facility] December 14, 2024 07:49 AM MYOVIEW(2): ROBBIE HUANG [id number] -1940 M Exm Date: DECEMBER 14, 2024@07:49 Req Phys: FARHAT BRIGGS Pat Loc: [facility]CT [facility] 16-1 (Req'g Loc) Img Loc: NUCLEAR MEDICINE Service: [place] [address] (Case [id number] COMPLETE)MYOVIEW(2) (NM Detailed) CPT:A9502 Reason for Study: [...] 14, 2024 Date Verified: DECEMBER 14, 2024 Clean Energy Policy Analyst E-Sig: Report: [facility], [place], [place] STUDY: Regadenoson (Lexiscan) SPECT Tc-99m myoview [...] performed with tomographic and three-dimensional reconstructions with [employer] NM/CT 640 system. Exercise: Patient exercised for [...] data sets in addition to the conventional lyz-ptjyikblxmj-wscjqatev images. Both filtered back projection and iterative [...] ventricular cavity. 4. SPECT images: Attenuation-corrected and tey-ywpccyjfqbn-lzjgrglpa SPECT images were evaluated. SPECT images demonstrate [...] JEB SANTOS MD, CARDIOLOGY ATTENDING Verified by field service rep for JEB SANTOS MD /JEB MANCILLA-D [facility] December 14, 2024 07:49 AM MYOVIEW(1): ROBBIE HUANG [id number] -1940 M Exm Date: DECEMBER 14, 2024@07:49 Req Phys: FARHAT BRIGGS Loc: [facility] 16-1 (Req'g Loc) Img Loc: NUCLEAR MEDICINE Service: [place] [address] (Case [id number] COMPLETE)MYOVIEW(1) (NM Detailed) CPT:A9502 Reason for Study: [...] 14, 2024 Date Verified: DECEMBER 14, 2024 Clean Energy Policy Analyst E-Sig: Report: [facility], [place], [place] STUDY: Regadenoson (Lexiscan) SPECT Tc-99m myoview [...] performed with tomographic and three-dimensional reconstructions with [employer] NM/CT 640 system. Exercise: Patient exercised for [...] data sets in addition to the conventional wmo-kxrxhxaznlf-aormcgaye images. Both filtered back projection and iterative [...] ventricular cavity. 4. SPECT images: Attenuation-corrected and nku-vqdmcvafonw-tjqilibqt SPECT images were evaluated. SPECT images demonstrate [...] JEB SANTOS MD, CARDIOLOGY ATTENDING Verified by field service rep for JEB SANTOS MD /JEB MANCILLA-CDD [facility] December 14, 2024 07:49 AM TC-99M X1 FROM NON -HEU SOURCE: ROBBIE HUANG [id number] -1940 M [facility] Date: DECEMBER 14, 2024@07:49 Req Phys: FARHAT BRIGGS Loc: [facility] WHITNEY 16-1 (Req'g Loc) [facility] [place]UCLEAR MEDICINE Service: Unknown [place] [id number] (Case [id number] COMPLETE)TC-99M X1 FROM NON-HEU SOURCE (NM Detailed) CPT:Q9969 Reason for Study: SEE CLINICAL HISTORY Clinical History: Cardiology approval by: [facility] CONNECTED? No Active Outpatient Medications (including [...] 14, 2024 Date Verified: DECEMBER 14, 2024 Clean Energy Policy Analyst E-Sig: Report: [place], [place] STUDY: Regadenoson (Lexiscan) SPECT Tc-99m myoview [...] performed with tomographic and three-dimensional reconstructions with [employer]/CT 640 system. Exercise: Patient exercised for 6 [...] data sets in addition to the conventional ysa-ebnyjgafuid-lwbxbbhjb images. Both filtered back projection and iterative [...] ventricular cavity. 4. SPECT images: Attenuation-corrected and xwt-yrhxxkpwopf-frkoydlfo SPECT images were evaluated. SPECT images demonstrate [...] JEB SANTOS MD, CARDIOLOGY ATTENDING Verified by field service rep for JEB SANTOS MD /JEB MANCILLA-CDD [facility] December 14, 2024 07:49 AM [id number] REGADENOSON 0.1MG X1 (LEXISCAN): ROBBIE HUANG [id number] -1940 M Exm Date: DECEMBER 14, 2024@07:49 Req Phys: FARHAT BRIGGS Pat Loc: [facility] 16-1 (Req'g Loc) Img Loc: NUCLEAR MEDICINE Service: [place] [address] (Case [id number] COMPLETE)[id number] REGADENOSON 0.1MG X1 (STEPHON(NM Detailed) CPT:J2785 [...] 14, 2024 Date Verified: DECEMBER 14, 2024 Clean Energy Policy Analyst E-Sig: Report: [place], [place] STUDY: Regadenoson (Lexiscan) SPECT Tc-99m myoview [...] performed with tomographic and three-dimensional reconstructions with [employer] NM/CT 640 system. Exercise: Patient exercised for [...] data sets in addition to the conventional dpy-uxrngrwqedr-xlwzfwftq images. Both filtered back projection and iterative [...] ventricular cavity. 4. SPECT images: Attenuation-corrected and ren-uwukxwekojs-rhgwatblq SPECT images were evaluated. SPECT images demonstrate [...] JEB SANTOS MD, CARDIOLOGY ATTENDING Verified by field service rep for JEB SANTOS MD /JEB MANCILLA-CDD [facility] December 14, 2024 07:49 AM [id number] REGADENOSON 0.1MG X2 (LEXISCAN): ROBBIE HUANG MICA [id number] 1940 M Ex Date: DECEMBER 14, 2024@07:49 Req Phys: FARHAT BRIGGS Loc: [facility]CT [facility] 16-1 (Req'g Loc) Img Loc: NUCLEAR MEDICINE Service: [place] [address] (Case [id number] COMPLETE)[id number] REGADENOSON 0.1MG X2 (STEPHON(NM Detailed) CPT:J2785 [...] 14, 2024 Date Verified: DECEMBER 14, 2024 Clean Energy Policy Analyst E-Sig: Report: [place] STUDY: Regadenoson (Lexiscan) SPECT Tc-99m myoview [...] performed with tomographic and three-dimensional reconstructions with [employer] NM/CT 640 system. Exercise: Patient exercised for [...] data sets in addition to the conventional slu-lcuasjtdcpf-idojakrmm images. Both filtered back projection and iterative [...] ventricular cavity. 4. SPECT images: Attenuation-corrected and fte-nuydqsobmoh-efruowmwg SPECT images were evaluated. SPECT images demonstrate [...] JEB SANTOS MD, CARDIOLOGY ATTENDING Verified by field service rep for JEB SANTOS MD /JEB MANCILLA-D [facility] December 14, 2024 07:49 AM [id number] REGADENOSON 0.1MG X3 (LEXISCAN): ROBBIE HUANG [id number] -1940 M [facility] Date: DECEMBER 14, 2024@07:49 Req Phys: FARHAT BRIGGS Loc: [facility] PACT [facility] 16-1 (Req'g Loc) Img Loc: NUCLEAR MEDICINE Service: [place] [address] (Case [id number] COMPLETE)[id number] REGADENOSON 0.1MG X3 (STEPHON(NM Detailed) CPT:J2785 [...] 14, 2024 Date Verified: DECEMBER 14, 2024 Clean Energy Policy Analyst E-Sig: Report: [facility], [place], [place] STUDY: Regadenoson (Lexiscan) SPECT Tc-99m myoview [...] performed with tomographic and three-dimensional reconstructions with Pro[employer] NM/CT 640 system. Exercise: Patient exercised for [...] data sets in addition to the conventional ohk-fsvyotejpll-qujpdopyn images. Both filtered back projection and iterative [...] ventricular cavity. 4. SPECT images: Attenuation-corrected and eev-xvrjaugktau-gqjsmoemt SPECT images were evaluated. SPECT images demonstrate [...] JEB SANTOS MD, CARDIOLOGY ATTENDING Verified by field service rep for JEB SANTOS MD /JEB MANCILLA-D [facility] December 14, 2024 07:49 AM TC-99M X2 FROM NON -HEU SOURCE: ROBBIE HUANG [id number] -1940 M Exm Date: DECEMBER 14, 2024@07:49 Req Phys: FARHAT BRIGGS Loc: [facility] PACT [facility] 16-1 (Req'g Loc) Img Loc: NUCLEAR MEDICINE Service: [place] [address] (Case [id number] COMPLETE)TC-99M X2 FROM NON-HEU SOURCE (NM Detailed) [...] 14, 2024 Date Verified: DECEMBER 14, 2024 Clean Energy Policy Analyst E-Sig: Report: [place] STUDY: Regadenoson (Lexiscan) SPECT Tc-99m myoview [...] performed with tomographic and three-dimensional reconstructions with [employer]ter[employer] NM/CT 640 system. Exercise: Patient exercised for [...] data sets in addition to the conventional vnb-jzhxwcpqgec-nkditgosw images. Both filtered back projection and iterative [...] ventricular cavity. 4. SPECT images: Attenuation-corrected and cri-vfburacqerw-nkvwatfrq SPECT images were evaluated. SPECT images demonstrate [...] JEB SANTOS MD, CARDIOLOGY ATTENDING Verified by field service rep for JEB SANTOS MD /JEB MANCILLA-ISMAEL [facility] Encounter Notes: All associated encounter notes This section contains the clinical notes associated to the Encounter. Date/Time Encounter Note(s) Provider Source December 05, 2024 01:22 PM PHARMACY TELEPHONE ENCOUNTER NOTE: LOCAL TITLE: PHARMACY TELEPHONE CARE NOTE STANDARD TITLE: PHARMACY TELEPHONE ENCOUNTER NOTE DATE OF NOTE: DECEMBER 05, 2024@13:22 ENTRY DATE: DECEMBER 05, 2024@13:22:46 AUTHOR: FRANCA SON EXP COSIGNER: URGENCY: STATUS: COMPLETED PHARMACY TELEPHONE CARE NOTE Has ADDENDA 1. Name of caller: 2. Phone #: 3. Specialty Clinic/Primary Care Team: Progress Note Date Title Author (and Author's Title) DECEMBER 03, 2024@13:29 PC PROGRESS NOTE FARHAT BRIGGS (STAFF PHYSICIA 4. Medication: EMPAGLIFLOZIN 10MG TAB ACTIVE OUT RX 12/06/2023 12/06/2024 08/22/2024 POLA CHOW Sig: TAKE ONE TABLET BY MOUTH EVERY MORNING PROTEINURIA... [+] 5. Last fill date: Provider: 6. The caller requests prescription: Mailed 7. View Alert to: /jack/ Franca Son [facility] Clinical Contact Center liquor commissioner Signed: 12/05/2024 13:23 Receipt Acknowledged By: 12/06/2024 12:27 /jack/ TYLER PETERS Advanced Fish And Wildlife Technician 12/05/2024 15:28 /jack/ Farhat Briggs MD Primary Care Attending 12/06/2024 ADDENDUM STATUS: COMPLETED I have not received RX. Will mail when I get it signed and reviewed by the DrDev /jack/ TYLER PETERS Advanced Fish And Wildlife Technician Signed: 12/06/2024 12:29 FRANCA SON-[facility]
--- OUTSIDE RECORDS SUMMARY | 2024-12-06 08:15 | XMS_ITS | Encounter Summary ---
Author Name [facility] [place] [facility] [place] Address [address] [place] [address] Care Team Providers Care Forming Operator Name Role Phone DALIA COBB Primary Care [...] Asif's Name Patient's Relationship to Policy Asif [facility] [place] BLUECARD MEDICARE SECONDARY (NO B EXC) TI AUTOM OTIVE - RETI Jul 25, 2018 [id number] KAMARTI PERKINS SPOUSE MEDICARE (WNR) MEDICARE (M) PART B Jan 22, 2007 PART B [id number] KAMARJUSTYNA TINAJERO PATIENT MEDICARE (WNR) MEDICARE (M) PART A Sep 22, 2005 PART A [id number] KAMARJUSTYNA TINAJERO PATIENT FOR LIFE TRICA RE FOR LIFE Jul 25, 2017 FOR LIFE [id number] REINA JRROBBIE PATIENT Selected Encounter This section includes the information on record at [place] for the Encounter. Date/Time Encounter Type Encounter Description Reason Provider Source December 06, 2024 12:15 PM TTE W/DOPPLER COMPLETE CARDIAC ECHO ICD-10-CM R06.00 Dyspnea, unspecified JEB LAMBERT MARGOTKal Encounter Template Text not used by [place] Assessments - Encounter Diagnoses This section includes the primary and secondary diagnoses documented for the Encounter. Date/Time Primary/Secondary Diagnosis Diagnosis Name Provider Source December 18, 2024 10:02 AM PRIMARY Dyspnea, unspecified YAZMINCOREY J [facility] Plan of Treatment: Future Appointments (+ 6 months) and Future Tests (+/- 45 days) The Plan of Treatment section includes future care activities for the patient [facility] [place] [facility] This section includes future appointments and future orders which are active, pending or scheduled. Future Appointments This section includes appointments that were scheduled to occur 6 months from the date of the Encounter, up to a maximum of 20 appointments. The data comes from all [facility]. Appointment Date/Time Appointment Type Appointme nt Facility Name December 14, 2024 08:00 AM AMB[facility]ORY - NONE [facility] Jan 04, 2025 01:30 PM [facility]ORY - SURGERY [facility] Jan 31, 2025 03:00 PM AMBULATORY - MEDICINE [facility] Feb 05, 2025 01:00 PM AMBULATORY - MEDICINE [facility] Feb 05, 2025 02:00 PM AMBULATORY - MEDICINE [facility] Active, Pending, and Scheduled Orders This section includes a listing of several types of active, pending, and scheduled orders, including clinic medications orders, diagnostic test orders, procedure orders and consult orders; where the start date of the order is 45 days before the date of the Encounter or 45 days after the date of theEncounter. The data comes from all [facility]. Test Date/Time Test Type Test Details Facility Name Jan 04, 2025 12:00 AM Imaging - Vascular Lab Order SEGMENTAL PRESSURES, LOWER EXT([place]) [facility] Jan 04, 2025 12:00 AM Imaging - Vascular Lab Order VENOUS DUPLEX LOWER EXT BILAT [facility] Lab Results: +/- 30 days of the encounter This section includes the Chemistry and Hematology Lab Results on record with [place] for the patient. Radiology Reports and Pathology Reports are provided separately, in subsequent sections. Lab Results This section contains the Chemistry/Hematology Results that were resulted 30 days before or 30 daysafter the date of the Encounter. Date/Time Source Result Type Result - Unit Interpretation Reference Range Specimen Type Comment December 03, 2024 02:03 PM [facility] PROTEIN ELECTROPHORESIS URINE Specimen Type: URINE No comment entered. Ordering Provider: DALIA COBB Report Released Date/Time: December 03, 2024 01:24 PM Reporting Lab: [address] [address] Performing Lab: [address] [address] TOTAL PROTEIN 17.0 mg/dL Not Estab. .ALBUMIN ELEC 29.4 .ALPHA 1 ELEC 5.2 .ALPHA 2 ELEC 21.5 .BETA ELEC 19.7 .GAMMA ELEC 24.2 .M-SPIKE Not Observed Not Observed December 03, 2024 02:03 PM [facility] TOTAL PROTEIN URINE Specimen Type: URINE No comment entered. Ordering Provider: DALIA COBB Report Released Date/Time: December 03, 2024 01:24 PM Reporting Lab: [address] [address] Performing Lab: [address] [address] TOTAL PROTEIN 16 mg/dL H 0-14 December 03, 2024 02:03 PM [facility] CREATININE URINE Specimen Type: URINE No comment entered. Ordering Provider: DALIA COBB Report Released Date/Time: December 03, 2024 01:24 PM Reporting Lab: [address] [address] Performing Lab: [address] [address] CREATININE 63.6 mg/dL December 03, 2024 02:03 PM [facility] URINALYSIS URINE Specimen Type: URINE Comment: Microscopic not indicated Ordering Provider: DALIA COBB Report Released Date/Time: December 03, 2024 01:29 PM Reporting Lab: [address] [address] Performing Lab: [address] [address] URINE COLOR Light Yellow Colorless-Yello w APPEARANCE Clear Clear UROBILINOGEN Normal mg/dL Normal URINE BLOOD Negative Negative URINE BILIRUBIN Negative Negative URINE KETONES Negative mg/dL Negative URINE PROTEIN Negative mg/dL Negative-Tr rachell URINE PH 5.0 4.5-8.0 URINE NITRITE Negative Negative URINE LEUKOCYTE EST Negative Negative SPECIFIC GRAVITY 1.014 1.005-1.030 URINE GLUCOSE >1000 mg/dL H Negative December 03, 2024 01:45 PM [facility] ANTI-NUCLEAR Ab SERUM Specimen Type: SERUM Comment: Atypical speckled resembling DFS (Dense-Fine Speckled. The DFS pattern has a low prevalence in systemic autoimmune rheumatic diseases. The clinical association remains unclear. Due to its close resemblance to other patterns of clinical relevance, (i.e. Homogeneous, speckled, and mixed patterns) follow-up testing may be recommended. ANTI-NUCLEAR Ab reported incorrectly as Atypical Speckled by [[id number]]. Changed to 1:320 Atypical Speckled on December 06, 2024@12:59 by [[id number]]. Ordering Provider: DALIA COBB Report Released Date/Time: December 03, 2024 01:38 PM Reporting Lab: [address] [address] Performing Lab: [address] [address] ANTI-NUCLEAR Ab 1:320 Atypical Speckled <1:80 December 03, 2024 01:45 PM [facility] ROSALIE (SERUM) SERUM Specimen Type: SERUM Comment: BNP results less than or equal to 100 pg/ml are telephone sales representative of normal values in patients without CHF. BNP results greater than 100 pg/ml are considered abnormal and suggestive of CHF. Higher BNP concentrations in the first 72 hours after Acute Coronary Syndrome are associated with an increased risk of , myocardial infarction and CHF. Ordering Provider: DALIA COBB Report Released Date/Time: December 03, 2024 01:24 PM Reporting Lab: [address] [address] Performing Lab: [facility] [address] [facility] [address] .ALBUMIN ELEC 3.6 g/dL 2.9-4.4 .ALPHA 1 [...] 03, 2024 01:45 PM [facility] JORDAN SCREEN SERUM Specimen Type: SERUM No comment entered. Ordering Provider: DALIA COBB Report Released Date/Time: December 03, 2024 01:38 PM Reporting Lab: [address] [address] Performing Lab: [address] [address] JORDAN SCREEN Negative Negative December 03, 2024 01:45 PM [facility] BNP (MCCALL) PLASMA Specimen Type: PLASMA Comment: BNP results less than or equal to 100 pg/ml are telephone sales representative of normal values in patients without CHF. BNP results greater than 100 pg/ml are considered abnormal and suggestive of CHF. Higher BNP concentrations in the first 72 hours after Acute Coronary Syndrome are associated with an increased risk of , myocardial infarction and CHF. Ordering Provider: DALIA COBB Report Released Date/Time: December 03, 2024 01:24 PM Reporting Lab: [address] [address] Performing Lab: [address] [address] BNP (MCCALL) 225 pg/mL H 0-100 December 03, 2024 01:45 PM [facility] CK TOTAL PLASMA Specimen Type: [...] December 03, 2024 01:33 PM Reporting Lab: [address] [address] Performing Lab: [address] [address] CK TOTAL 76 U/L 30-200 December 03, 2024 01:45 PM [facility] PANEL 5 PLASMA Specimen Type: PLASM A [...] December 03, 2024 01:24 PM Reporting Lab: [address] [address] Performing Lab: [address] [address] CREATININE 2.05 mg/dL H 0.72-1.25 UREA NITROGEN [...] eGFR (CKD-EPI) December 03, 2024 01:45 PM [facility] CBC/PLT BLOOD Specimen Type: BLOOD No comment entered. Ordering Provider: DALIA COBB Report Released Date/Time: December 03, 2024 01:33 PM Reporting Lab: [address] [address] Performing Lab: [address] [address] WBC 5.6 10*3/uL 5.0-10.0 RBC 4.24 10*6/uL L 4.6-6.2 HGB 12.8 g/dL L 14.0-18.0 HCT 39.4 L 42.0-52.0 MCV 92.9 fL 80.0-94.0 MCH 30.2 pg 27.0-31.0 MCHC 32.5 g/dL 32.0-36.0 PLT 248 10*3/uL 150-450 MPV 10.2 fL 9.0-13.1 RDW 14.2 11.0-16.0 NRBC 0.0 0.0-0.0 December 03, 2024 01:45 PM [facility] AUTOMATED DIFF BLOOD Specimen Type: BLOOD No comment entered. Ordering Provider: DALIA COBB Report Released Date/Time: December 03, 2024 01:33 PM Reporting Lab: [address] [address] Performing Lab: [address] [address] A-LYMPH % 22.1 L 24.0-44.0 A-MONO % [...] and tobacco- related health factors from the [place] facility where the Encounter took place. Current Smoking Status This section includes the most current smoking, or tobacco-related health factor, from the [place] facility where the Encounter took place. Date/Time Current Smoking Status Comment Kelechi dial May 10, 2024 02:00 PM VA-TOBACCO NEVER USED [facility] Tobacco Use History This section includes a history of the smoking, or tobacco-related health factors, that were collected on or before the date of the Encounter. The data comes from the [place] facility where the Encounter took place. Date/Time Smoking Status/Tobacco Use Comment Ricardo dudley May 19, 2017 03:22 AM NON-TOBACCO USE INPATIENT [facility] Sep 07, 2016 02:41 AM NON-TOBACCO USE INPATIENT [facility] Apr 21, 2004 08:29 AM HF V9 CURRENT NON-SMOKER quit smoking about 30 yrs ago [facility] Sep 06, 2002 02:26 PM HF V9 CURRENT NON-SMOKER QUIT SMOKING ABOUT 31 YRS AGO [facility] Radiology Reports: +/- 30 days [...] the Encounter. The data comes from all [place] treatment facilities. Date/Time Radiology Report Provider Source December 14, 2024 07:49 AM CARD. STRESS TEST W/TREADMILL/...: ROBBIE HUANG [id number] -1940 M Exm Date: DECEMBER 14, 2024@07:49 Req Phys: DALIA COBB Pat Loc: [facility] 16-1 (Req'g Loc) Img Loc: NUCLEAR MEDICINE Service: Unknown [place] [id number] (Case [id number] COMPLETE)CARD. STRESS TEST W/TREADMILL/...(NM Detailed) CPT:42448 Reason for Study: SEE CLINICAL HISTORY Clinical History: [facility]ED? No Active Outpatient Medications (including [...] 14, 2024 Date Verified: DECEMBER 14, 2024 Senior Electrical Engineer E-Sig: Report: STUDY: GXT with vasodilator REPORT: [...] Staff: CHAO ORR APRN, Cardiology Verified by parts department manager for CHAO ORR /CHAO [facility] December 14, 2024 07:49 AM [id number] REGADENOSON 0.1MG X4 (LEXISCAN): ROBBIE HUANG MICA [id number] -1940 M Exm Date: DECEMBER 14, 2024@07:49 Req Phys: DALIA COBB Pat Loc: [facility] 16-1 (Req'g Loc) Img Loc: NUCLEAR MEDICINE Service: [place] [address] (Case [id number] COMPLETE)[id number] REGADENOSON 0.1MG X4 (STEPHON(NM Detailed) CPT:J2785 [...] 14, 2024 Date Verified: DECEMBER 14, 2024 Senior Electrical Engineer E-Sig: Report: STUDY: GXT with vasodilator REPORT: [...] Staff: CHAO ORR APRN, Cardiology Verified by parts department manager for CHAO ORR /[facility] December 14, 2024 07:49 AM CARD. STRESS TEST W/TREADMILL/...: ROBBIE HUANG [id number] 1940 M Exm Date: DECEMBER 14, 2024@07:49 Req Phys: DALIA COBB Loc: [facility] 16-1 (Req'g Loc) Img Loc: NUCLEAR MEDICINE Service: [place] [address] (Case [id number] COMPLETE)CARD. STRESS TEST W/TREADMILL/...(NM Detailed) CPT:67549 Proc Modifiers : GXT Reason for Study: SEE CLINICAL HISTORY Clinical History: Cardiology approval by: [facility] CONNECTED? No Active Outpatient Medications (including [...] 14, 2024 Date Verified: DECEMBER 14, 2024 Senior Electrical Engineer E-Sig: Report: [place], [place] STUDY: Regadenoson (Lexiscan) SPECT Tc-99m myoview [...] performed with tomographic and three-dimensional reconstructions with Toutiao NM/CT 640 system. Exercise: Patient exercised for [...] data sets in addition to the conventional pyq-hghhimqeuaz-zkzvvjqix images. Both filtered back projection and iterative [...] ventricular cavity. 4. SPECT images: Attenuation-corrected and gxz-nnyobouulci-jeqymfoce SPECT images were evaluated. SPECT images demonstrate [...] ABNORMALITY, ATTN NEEDED Primary Interpreting Staff: JEB LAMBERT MD, CARDIOLOGY ATTENDING Verified by parts department manager for JEB LAMBERT MD /JEB [facility] December 14, 2024 07:49 AM 46376(D) MYOCARDIA L SPECT(MULTIPLE): ROBBIE HUANG [facility] [id number] -1940 M Exm Date: DECEMBER 14, 2024@07:49 Req Phys: DALIA COBB Pat Loc: [facility] 16-1 (Req'g Loc) Img Loc: NUCLEAR MEDICINE Service: [place] [address] (Case [id number] COMPLETE)43804(D) MYOCARDIAL SPECT(MULTIPL(NM Detailed) CPT:78639 Proc Modifiers : Lexiscan (Regadenoson) CPT Modifiers : 51 MULTIPLE PROCEDURES Reason for Study: SEE CLINICAL HISTORY Radiopharmaceutical: TC-99M TETROFOSMIN (MYOVIEW)-1, 5.5 mCi Adm'd on DECEMBER 14, 2024@07:45 by YENNY GMABOA Route [employer] Radiopharmaceutical: TC-99M TETROFOSMIN (MYOVIEW)-2, 16.5 mCi Adm'd on DECEMBER 14, 2024@09:53 by YENNY GAMBOA Route [employer] Pharmaceutical: REGADENOSON 0.4MG/5ML INJ SYRINGE 5ML, 0.4 mg Adm'd on DECEMBER 14, 2024@09:53 by YENNY GAMBOA Clinical History: Cardiology approval by: [facility] SERVICE CONNECTED? No Active Outpatient Medications [...] 14, 2024 Date Verified: DECEMBER 14, 2024 Senior Electrical Engineer E-Sig: Report: [place] STUDY: Regadenoson (Lexiscan) SPECT Tc-99m myoview [...] performed with tomographic and three-dimensional reconstructions with Toutiao NM/CT 640 system. Exercise: Patient exercised for [...] data sets in addition to the conventional kvk-txtybcnnmot-jbldndrys images. Both filtered back projection and iterative [...] ventricular cavity. 4. SPECT images: Attenuation-corrected and tnx-xmirzmlrofw-rckxcbpmp SPECT images were evaluated. SPECT images demonstrate [...] ABNORMALITY, ATTN NEEDED Primary Interpreting Staff: JEB LAMBERT MD, CARDIOLOGY ATTENDING Verified by parts department manager for JEB LAMBERT MD /JEB [facility]CILLA-CDD [facility] December 14, 2024 07:49 AM MYOVIEW(1): ROBBIE HUANG MICA [id number] -1940 M Ex Date: DECEMBER 14, 2024@07:49 Req Phys: DALIA COBB Loc: [facility] 16-1 (Req'g Loc) Img Loc: NUCLEAR MEDICINE Service: [place] [address] (Case [id number] COMPLETE)MYOVIEW(1) (NM Detailed) CPT:A9502 Reason for Study: [...] 14, 2024 Date Verified: DECEMBER 14, 2024 Senior Electrical Engineer E-Sig: Report: [place] STUDY: Regadenoson (Lexiscan) SPECT Tc-99m myoview [...] performed with tomographic and three-dimensional reconstructions with Toutiao NM/CT 640 system. Exercise: Patient exercised for [...] data sets in addition to the conventional tho-xnnbrnqmjhc-xusryxjdm images. Both filtered back projection and iterative [...] ventricular cavity. 4. SPECT images: Attenuation-corrected and cuc-yrspewnyqlk-qmmodjqli SPECT images were evaluated. SPECT images demonstrate [...] ABNORMALITY, ATTN NEEDED Primary Interpreting Staff: JEB LAMBERT MD, CARDIOLOGY ATTENDING Verified by parts department manager for JEB LAMBERT MD /JEB [facility] December 14, 2024 07:49 AM MYOVIEW(2): ROBBIE HUANG [id number] -1940 M [facility] Date: DECEMBER 14, 2024@07:49 Req Phys: STONE,DALIA R Pat Loc: [facility] 16-1 (Req'g Loc) Img Loc: NUCLEAR MEDICINE Service: [place] [address] (Case [id number] COMPLETE)MYOVIEW(2) (NM Detailed) CPT:A9502 Reason for Study: [...] 14, 2024 Date Verified: DECEMBER 14, 2024 Senior Electrical Engineer E-Sig: Report: [facility], [place], [place] STUDY: Regadenoson (Lexiscan) SPECT Tc-99m myoview [...] performed with tomographic and three-dimensional reconstructions with Toutiao NM/CT 640 system. Exercise: Patient exercised for [...] data sets in addition to the conventional ofu-fubgvegfxyr-qsmlfjmgj images. Both filtered back projection and iterative [...] ventricular cavity. 4. SPECT images: Attenuation-corrected and zsj-mnuzpremqcz-suxaapgns SPECT images were evaluated. SPECT images demonstrate [...] ABNORMALITY, ATTN NEEDED Primary Interpreting Staff: JEB LAMBERT MD, CARDIOLOGY ATTENDING Verified by parts department manager for JEB LAMBERT MD /JEB [facility] December 14, 2024 07:49 AM [id number] REGADENOSON 0.1MG X1 (LEXISCAN): ROBBIE HUANG [id number] -1940 M Exm Date: DECEMBER 14, 2024@07:49 Req Phys: DALIA COBB Loc: [facility] 16-1 (Req'g Loc) Img Loc: NUCLEAR MEDICINE Service: [place] [address] (Case [id number] COMPLETE)[id number] REGADENOSON 0.1MG X1 (STEPHON(NM Detailed) CPT:J2785 [...] 14, 2024 Date Verified: DECEMBER 14, 2024 Senior Electrical Engineer E-Sig: Report: [place] STUDY: Regadenoson (Lexiscan) SPECT Tc-99m myoview [...] performed with tomographic and three-dimensional reconstructions with Toutiao NM/CT 640 system. Exercise: Patient exercised for [...] data sets in addition to the conventional ihk-yiedapdrxop-izlfqgffa images. Both filtered back projection and iterative [...] ventricular cavity. 4. SPECT images: Attenuation-corrected and eyo-qoojseizelh-hyanivgiv SPECT images were evaluated. SPECT images demonstrate [...] ABNORMALITY, ATTN NEEDED Primary Interpreting Staff: JEB LAMBERT MD, CARDIOLOGY ATTENDING Verified by parts department manager for JEB LAMBERT MD /JEB MANCILLA-D [facility] December 14, 2024 07:49 AM TC-99M X1 FROM NON -HEU SOURCE: REINAROBBIE [id number] -1940 M Ex Date: DECEMBER 14, 2024@07:49 Req Phys: DALIA COBB Loc: [facility] 16-1 (Req'g Loc) [facility] Loc: NUCLEAR MEDICINE Service: [place] [address] (Case [id number] COMPLETE)TC-99M X1 FROM NON-HEU SOURCE (NM Detailed) [...] 14, 2024 Date Verified: DECEMBER 14, 2024 Senior Electrical Engineer E-Sig: Report: [facility], [place] STUDY: Regadenoson (Lexiscan) SPECT Tc-99m myoview [...] performed with tomographic and three-dimensional reconstructions with Toutiao NM/CT 640 system. Exercise: Patient exercised for [...] data sets in addition to the conventional ffk-gpssqcotkwn-rqlnwzlqw images. Both filtered back projection and iterative [...] ventricular cavity. 4. SPECT images: Attenuation-corrected and aee-hcribnzklhg-ynvbvmkou SPECT images were evaluated. SPECT images demonstrate [...] ABNORMALITY, ATTN NEEDED Primary Interpreting Staff: JEB LAMBERT MD, CARDIOLOGY ATTENDING Verified by parts department manager for JEB LAMBERT MD /JEB [facility] December 14, 2024 07:49 AM [id number] REGADENOSON 0.1MG X2 (LEXISCAN): ROBBIE HUANG [id number] 1940 M Exm Date: DECEMBER 14, 2024@07:49 Req Phys: JORDYNDALIA Raul Mora Loc: [facility] 16-1 (Req'g Loc) Img Loc: NUCLEAR MEDICINE Service: [place] [address] (Case [id number] COMPLETE)[id number] REGADENOSON 0.1MG X2 (STEPHON(NM Detailed) CPT:J2785 [...] 14, 2024 Date Verified: DECEMBER 14, 2024 Senior Electrical Engineer E-Sig: Report: [facility], [place] STUDY: Regadenoson (Lexiscan) SPECT Tc-99m myoview [...] performed with tomographic and three-dimensional reconstructions with Atrecaa NM/CT 640 system. Exercise: Patient exercised for [...] data sets in addition to the conventional uvc-fvlkvgtoehp-ydcztslzx images. Both filtered back projection and iterative [...] ventricular cavity. 4. SPECT images: Attenuation-corrected and ajh-mxhzwcabyjd-xvtfddruc SPECT images were evaluated. SPECT images demonstrate [...] ABNORMALITY, ATTN NEEDED Primary Interpreting Staff: JEB LAMBERT MD, CARDIOLOGY ATTENDING Verified by parts department manager for JEB LAMBERT MD /JEB [facility] December 14, 2024 07:49 AM [id number] REGADENOSON 0.1MG X3 (LEXISCAN): ROBBIE HUANG MICA [id number] -1940 M Exm Date: DECEMBER 14, 2024@07:49 Req Phys: DALIA COBB Pat Loc: [facility] 16-1 (Req'g Loc) Img Loc: NUCLEAR MEDICINE Service: [place] [address] (Case [id number] COMPLETE)[id number] REGADENOSON 0.1MG X3 (STEPHON(NM Detailed) CPT:J2785 [...] 14, 2024 Date Verified: DECEMBER 14, 2024 Senior Electrical Engineer E-Sig: Report: [place] STUDY: Regadenoson (Lexiscan) SPECT Tc-99m myoview [...] performed with tomographic and three-dimensional reconstructions with Toutiao NM/CT 640 system. Exercise: Patient exercised for [...] data sets in addition to the conventional egy-xqjfueszmzr-jhzqszxgi images. Both filtered back projection and iterative [...] ventricular cavity. 4. SPECT images: Attenuation-corrected and isn-zdqgrghfqnf-iyengpomu SPECT images were evaluated. SPECT images demonstrate [...] ABNORMALITY, ATTN NEEDED Primary Interpreting Staff: JEB LAMBERT MD, CARDIOLOGY ATTENDING Verified by parts department manager for JEB LAMBERT MD /JEB [facility]LLA-D [facility] December 14, 2024 07:49 AM TC-99M X2 FROM NON -HEU SOURCE: ROBBIE HUANG [id number] [facility]1940 [facility] Date: DECEMBER 14, 2024@07:49 Req Phys: DALIA COBB [facility] (Req'g Loc) [facility] Loc: NUCLEAR MEDICINE [place]: [place] [address] (Case [id number] COMPLETE)TC-99M X2 FROM NON-HEU SOURCE (NM Detailed) [...] 14, 2024 Date Verified: DECEMBER 14, 2024 Senior Electrical Engineer E-Sig: Report: [facility], [place] STUDY: Regadenoson (Lexiscan) SPECT Tc-99m myoview [...] performed with tomographic and three-dimensional reconstructions with Toutiao NM/CT 640 system. Exercise: Patient exercised for [...] data sets in addition to the conventional oin-qkqtdkkavhp-dmtpltkau images. Both filtered back projection and iterative [...] ventricular cavity. 4. SPECT images: Attenuation-corrected and uvl-etcdsdyqofu-feoujeedt SPECT images were evaluated. SPECT images demonstrate [...] ABNORMALITY, ATTN NEEDED Primary Interpreting Staff: JEB LAMBERT MD, CARDIOLOGY ATTENDING Verified by parts department manager for JEB LAMBERT MD [facility] Encounter Notes: All associated encounter notes This section contains the clinical notes associated to the Encounter. Date/Time Encounter Note(s) Provider Source December 07, 2024 02:44 PM CARDIOLOGY NOTE: LOCAL TITLE: CARDIOLOGY CHART CHECK NOTE STANDARD TITLE: CARDIOLOGY NOTE DATE OF NOTE: DECEMBER 07, 2024@14:44 ENTRY DATE: DECEMBER 07, 2024@14:44:55 AUTHOR: COREY ARCE EXP COSIGNER: URGENCY: STATUS: COMPLETED Echo performed 12/06/2024 /jack/ COREY ARCE Pet Feeder Signed: 12/07/2024 14:45 [facility] 06, 2024 01:47 PM PROCEDURE REPORT: LOCAL TITLE: CP CARD/ECHO STANDARD TITLE: PROCEDURE REPORT DATE OF NOTE: DECEMBER 06, 2024@13:47:22 ENTRY DATE: DECEMBER 06, 2024@13:47:22 AUTHOR: CLINICAL,DEVICE PRO EXP COSIGNER: URGENCY: STATUS: COMPLETED PROCEDURE SUMMARY CODE: Machine Resulted DATE/TIME PERFORMED: DECEMBER 06, 2024@13:47:0 DOCUMENT IN VISTA IMAGING SEE FULL REPORT IN VISTA IMAGING SIGNATURE NOT REQUIRED SEE SIGNATURE IN VISTA IMAGING (ZXCELERA TTE) AUTO-INSTRUMENT DIAGNOSIS Procedure: Adult Adult Release Status: Released Off-Line Verified Date Verified: December 06, 2024@13:47:04 CP Order Number: [id number] [phone] Adult Echocardiogram Report Name: ROBBIE HUANG JR Study Date: 12/06/2024 12:20 PM : 1940 Gender: Male Age: 84 yrs Ordering Physician: JORDYN\Georgie\DALIA\S\R Reason For Study: 2 weeks LOO and sudden BLE edema to knees Performed By: Corey Arce Height: 68 in Weight: 181 lb BSA: 2.0 m2 HR: 66 BP: 147/73 mmHg Interpretation Summary A complete two-dimensional transthoracic echocardiogram was performed (2D, M- mode, Doppler and color flow Doppler). The study was technically difficult. Previous echo performed 11/16/2022. The rate and rhythm during this exam was most suggestive of normal sinus at 60-70bpm. Compared to previous echo, there are no significant changes. The left ventricle is mildly dilated. Left ventricular systolic function is moderately reduced. The visually estimated LVEF is '35-40%'. Left Ventricle The left ventricle is mildly dilated. The left ventricular end-diastolic dimension is mildly dilated for men (5.9-6.3cm). There is normal left ventricular wall thickness. Left ventricular systolic function is moderately reduced. The visually estimated LVEF is '35-40%'. Septal motion is consistent with conduction abnormality. The LV apex is akinetic . Right Ventricle The right ventricle is normal size. The right ventricular systolic function is normal. The estimated RV systolic pressure is <25mmHg. Atria The left atrial volume index (ml/m2) is 'mildly dilated (35-41ml/m2)'. The right atrial size is normal. The RAP could not adequately be measured and an assumed pressure of 8mmHg was used to estimate the RVSP. The interatrial septum is intact with no evidence for an atrial septal defect. Mitral Valve There is mild mitral annular calcification. There is no mitral stenosis. There is mild mitral regurgitation. Tricuspid Valve The tricuspid valve is normal. There is trace tricuspid regurgitation. Aortic Valve The aortic valve appears to be anatomically normal (trileaflet). No hemodynamically significant valvular aortic stenosis. No aortic regurgitation. Pulmonic Valve The pulmonic valve leaflets are thin and pliable; valve motion is normal. No pulmonic valvular regurgitation. Great Vessels The aorta at the Sinuses of Valsalva (inner edge to inner edge method) is 3.2 cm in diameter. The ascending aorta is 3.2 cm in diameter, at the maximal area visualized. Pericardium/Pleural There is no pericardial effusion. Quality and Procedure A complete 2D Echo with Doppler, color flow and M-Mode was performed. MMode/2D Measurements \T\ Calculations IVSd: 1.0 cm LVIDd: 6.1 cm LV mass(C)d: 218.8 grams LVIDs: 4.7 cm LVPWd: 0.80 cm Ao root diam: 3.2 cm asc Aorta Diam: 3.2 cm LVOT diam: 2.1 cm LA dimension: 4.8 cm LVOT area: 3.5 cm2 EDV(MOD-sp4): 164.0 ml EDV(MOD-sp2): 166.5 ml SV(MOD-sp4): 78.2 ml ESV(MOD-sp4): 85.8 ml ESV(MOD-sp2): 103.0 ml EF(MOD-sp4): 47.7 % EF(MOD-sp2): 38.1 % LAV(MOD-sp2): 65.8 ml TAPSE_phl: 1.8 cm RV Mid_phl: 2.6 cm LAV(MOD-sp4): 73.2 ml LA ESV Index(BP): 36.7 ml/m2 JE: 35.5 ml/m2 Time Measurements MV dec time: 0.17 sec PA acc time: 0.14 sec Doppler Measurements \T\ Calculations MV E max kamar: 69.2 cm/sec TR max kamar: 200.5 cm/sec RV S Vel_phl: 8.2 cm/sec MV A max kamar: 73.4 cm/sec TR max P.1 mmHg MV E/A: 0.94 Lat Peak E' Kamar: 6.7 cm/secMed Peak E' Kamar: 6.2 cm/secMV E/e' (Avg): 10.7 MV Lat E/e': 10.3 MV Med E/e': 11.2 Reading Physician: Jeb Lambert MD 12/06/2024 01:47 PM Ordering Physician: JORDYN\S\DALIA\S\R Performed By: Corey Arce Administrative Closure: 12/06/2024 by: DEVICE PROXY SERVICE CLINICAL CLINICAL,DEVICE PROXY SERVICE CLINICAL,DEVICE PROXY SERVICE [facility]
--- OUTSIDE RECORDS SUMMARY | 2024-12-11 09:17 | XMS_ITS | Encounter Summary ---
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 Date/Time Encounter Type Encounter Description Reason Provider Source December 11, 2024 01:17 PM PH1 ASSMT&MGMT NQHP 11-20 TELEPHONE BY STAFF ICD-10-CM I10 Essential (primary) hypertension KEEGAN BRUNNER E Encounter Template Text not used by [place] Assessments - Encounter Diagnoses This section includes the primary and secondary diagnoses documented for the Encounter. Date/Time Primary/Secondary Diagnosis Diagnosis Name Provider Source December 11, 2024 01:17 PM PRIMARY Essential (primary) hypertension SRINIVASAN BRUNNER [facility] Plan of Treatment: Future Appointments (+ 6 months) and Future Tests (+/- 45 days) The Plan of Treatment section includes future care activities for the patient from all [place] treatmentfacilities. This section includes future appointments and future orders which are active, pending or scheduled. Future Appointments This section includes appointments that were scheduled to occur 6 months from the date of the Encounter, up to a maximum of 20 appointments. The data comes from all [place] treatment [facility]. Appointment Date/Time Appointment Type Appointme nt Facility Name December 14, 2024 08:00 AM [facility] Jan 04, 2025 01:30 PM [facility] - SURGERY [facility] Jan 31, 2025 03:00 PM AMBULATORY - MEDICINE [facility] Feb 05, 2025 01:00 PM AMBULATORY - MEDICINE [facility] Feb 05, 2025 02:00 PM AMBULATORY - MEDICINE [facility] Active, Pending, and Scheduled Orders This section includes a listing of several types of active, pending, and scheduled orders, including clinic medications orders, diagnostic test orders, procedure orders and consult orders; where the start date of the order is 45 days before the date of the Encounter or 45 days after the date of theEncounter. The data comes from all [place] treatment [facility]. Test Date/Time Test Type Test Details Facility Name Jan 04, 2025 12:00 AM Imaging - Vascular Lab Order SEGMENTAL PRESSURES, LOWER EXT([place]) UNILAT [facility] Jan 04, 2025 12:00 AM Imaging - Vascular Lab Order VENOUS DUPLEX LOWER EXT BILAT [facility] Lab Results: +/- 30 days of the encounter This section includes the Chemistry and Hematology Lab Results on record with [place] for the patient. Radiology Reports and Pathology Reports are provided separately, in subsequent sections. Lab Results This section contains the Chemistry/Hematology Results that were resulted 30 days before or 30 daysafter the date of the Encounter. Date/Time Source Result Type Result - Unit Interpretation Reference Range Specimen Type Comment December 03, 2024 02:03 PM [facility] PROTEIN ELECTROPHORESIS URINE Specimen Type: URINE No comment entered. Ordering Provider: FARHAT BRIGGS Report Released Date/Time: December 03, 2024 01:24 PM Reporting Lab: [address] [address] Performing Lab: [address] [address] TOTAL PROTEIN 17.0 mg/dL Not Estab. .ALBUMIN ELEC 29.4 .ALPHA 1 ELEC 5.2 .ALPHA 2 ELEC 21.5 .BETA ELEC 19.7 .GAMMA ELEC 24.2 .M-SPIKE Not Observed Not Observed December 03, 2024 02:03 PM [facility] TOTAL PROTEIN URINE Specimen Type: URINE No comment entered. Ordering Provider: FARHAT BRIGGS Report Released Date/Time: December 03, 2024 01:24 PM Reporting Lab: [address] [address] Performing Lab: [address] [address] TOTAL PROTEIN 16 mg/dL H 0-14 December 03, 2024 02:03 PM [facility] CREATININE URINE Specimen Type: URINE No comment entered. Ordering Provider: FARHAT BRIGGS Report Released Date/Time: December 03, 2024 01:24 PM Reporting Lab: [address] [address] Performing Lab: [address] [address] CREATININE 63.6 mg/dL December 03, 2024 02:03 PM [facility] URINALYSIS URINE Specimen Type: URINE Comment: Microscopic not indicated Ordering Provider: FARHAT BRIGGS Report Released Date/Time: December 03, 2024 01:29 PM Reporting Lab: [address] [address] Performing Lab: [place] [phone] URINE COLOR Light Yellow Colorless-Yello w APPEARANCE Clear Clear UROBILINOGEN Normal mg/dL Normal URINE BLOOD Negative Negative URINE BILIRUBIN Negative Negative URINE KETONES Negative mg/dL Negative URINE PROTEIN Negative mg/dL Negative-Tr rachell URINE PH 5.0 4.5-8.0 URINE NITRITE Negative Negative URINE LEUKOCYTE EST Negative Negative SPECIFIC GRAVITY 1.014 1.005-1.030 URINE GLUCOSE >1000 mg/dL H Negative December 03, 2024 01:45 PM [facility] ANTI-NUCLEAR Ab SERUM Specimen Type: SERUM Comment: Atypical speckled resembling DFS (Dense-Fine Speckled. The DFS pattern has a low prevalence in systemic autoimmune rheumatic diseases. The clinical association remains unclear. Due to its close resemblance to other patterns of clinical relevance, (i.e. Homogeneous, speckled, and mixed patterns) follow-up testing may be recommended. ANTI-NUCLEAR Ab reported incorrectly as Atypical Speckled by [[id number]]. Changed to 1:320 Atypical Speckled on December 06, 2024@12:59 by [[id number]]. Ordering Provider: FARHAT BRIGGS Report Released Date/Time: December 03, 2024 01:38 PM Reporting Lab: [place] [phone] Performing Lab: [place] [phone] ANTI-NUCLEAR Ab 1:320 Atypical Speckled <1:80 December 03, 2024 01:45 PM [facility] ROSALIE (SERUM) SERUM Specimen Type: [...] December 03, 2024 01:24 PM Reporting Lab: [place] [phone] Performing Lab: [facility] [address] [facility] [phone] .ALBUMIN ELEC 3.6 g/dL 2.9-4.4 .ALPHA 1 [...] INTERPRETATION Comment December 03, 2024 01:45 PM [facility] JORDAN SCREEN SERUM Specimen Type: SERUM No comment entered. Ordering Provider: FARHAT BRIGGS Report Released Date/Time: December 03, 2024 01:38 PM Reporting Lab: [address] [address] Performing Lab: [address] [address] JORDAN SCREEN Negative Negative December 03, 2024 01:45 PM [facility] BNP (MCCALL) PLASMA Specimen Type: PLASMA Comment: [...] December 03, 2024 01:24 PM Reporting Lab: [address] [address] Performing Lab: [address] [address] BNP (M[place]ALL) 225 pg/mL H 0-100 December 03, 2024 01:45 PM [facility] CK TOTAL PLASMA Specimen [...] December 03, 2024 01:33 PM Reporting Lab: [address] [address] Performing Lab: [address] [address] CK TOTAL 76 U/L 30-200 December 03, 2024 01:45 PM [facility] PANEL 5 PLASMA Specimen Type: PLASM [...] December 03, 2024 01:24 PM Reporting Lab: [place] [address] [facility] [address] Performing Lab: [address] [address] CREATININE 2.05 mg/dL H 0.72-1.25 UREA NITROGEN [...] (CKD-EPI) 31 December 03, 2024 01:45 PM [facility] Specimen Type: BLOOD No comment entered. Ordering Provider: FARHAT BRIGGS Report Released Date/Time: December 03, 2024 01:33 PM Reporting Lab: [address] [address] Performing Lab: [place] [phone] WBC 5.6 10*3/uL 5.0-10.0 RBC 4.24 10*6/uL L 4.6-6.2 HGB 12.8 g/dL L 14.0-18.0 HCT 39.4 L 42.0-52.0 MCV 92.9 fL 80.0-94.0 MCH 30.2 pg 27.0-31.0 MCHC 32.5 g/dL 32.0-36.0 PLT 248 10*3/uL 150-450 MPV 10.2 fL 9.0-13.1 RDW 14.2 11.0-16.0 NRBC 0.0 0.0-0.0 December 03, 2024 01:45 PM [facility] AUTOMATED DIFF BLOOD Specimen Type: BLOOD No comment entered. Ordering Provider: FARHAT BRIGGS Report Released Date/Time: December 03, 2024 01:33 PM Reporting Lab: [address] [address] Performing Lab: [facility] [address] [place] [id number] A-LYMPH % 22.1 L 24.0-44.0 A-MONO % [...] and tobacco- related health factors from the [place] facility where the Encounter took place. Current Smoking Status This section includes the most current smoking, or tobacco-related health factor, from the [place] facility where the Encounter took place. Date/Time Current Smoking Status Comment Kelechi ity May 25, 2023 01:30 PM VA-TOBACCO FORMER USER [facility] Tobacco Use History This section includes a history of the smoking, or tobacco-related health factors, that were collected on or before the date of the Encounter. The data comes from the [place] facility where the Encounter took place. Date/Time Smoking Status/Tobacco Use Comment F acility May 25, 2023 01:30 PM VA-TOBACCO QUIT 15 YRS OR MORE [facility] Jun 18, 2022 01:30 PM VA-TOBACCO FORMER USER [facility] Jun 18, 2022 01:30 PM VA-TOBACCO QUIT 15 YRS OR MORE [facility] Jun 29, 2021 03:00 PM VA-TOBACCO FORMER USER [facility] Jun 29, 2021 03:00 PM VA-TOBACCO QUIT 15 YRS OR MORE [facility] Jul 28, 2020 09:30 AM VA-TOBACCO FORMER USER [facility] Jul 28, 2020 09:30 AM VA-TOBACCO QUIT 15 YRS OR MORE [facility] Jul 09, 2019 03:25 PM VA-TOBACCO NEVER USED [facility] Aug 24, 2018 02:06 PM VA-TOBACCO FORMER USER [facility] Aug 24, 2018 02:06 PM VA-TOBACCO QUIT 15 YRS OR MORE [facility] Sep 22, 2017 07:57 AM V9 LIFETIME NON-USER OF TOBACCO [facility] December 15, 2015 08:07 AM V9 LIFETIME NON-USER OF TOBACCO [facility] Jun 14, 2014 07:48 AM V9 LIFETIME NON-USER OF TOBACCO [facility] Jun 07, 2013 10:08 AM V9 LIFETIME NON-USER OF TOBACCO [facility] May 29, 2012 10:26 AM V9 LIFETIME NON-USER OF TOBACCO [facility] Nov 22, 2011 02:23 PM V9 LIFETIME NON-USER OF TOBACCO [facility] Oct 23, 2010 09:22 AM V9 QUIT TOBACCO >7 YEARS AGO [facility] May 30, 2007 03:08 PM V9 LIFETIME NON-USER OF TOBACCO [facility] Radiology Reports: +/- 30 days [...] the Encounter. The data comes from all [facility]. Date/Time Radiology Report Provider Source December 14, 2024 07:49 AM CARD. STRESS TEST W/TREADMILL/...: ROBBIE HUANG [id number] -1940 M Exm Date: DECEMBER 14, 2024@07:49 Req Phys: FARHAT BRIGGS Loc: VETO PACT WHITNEY 16-1 (Req'g Loc) Img Loc: NUCLEAR MEDICINE Service: [place] [address] (Case [id number] COMPLETE)CARD. STRESS TEST W/TREADMILL/...(NM Detailed) CPT:48683 Reason for Study: SEE CLINICAL HISTORY Clinical History: [facility]? No Active Outpatient Medications (including [...] 14, 2024 Date Verified: DECEMBER 14, 2024 Immigration Investigator E-Sig: Report: STUDY: GXT with vasodilator REPORT: [...] Staff: CHAO ORR APRN, Cardiology Verified by buckle sewer for CHAO ORR /CHAO GIRON-D [facility] December 14, 2024 07:49 AM [id number] REGADENOSON 0.1MG X4 (LEXISCAN): ROBBIE HUANG [id number] 1940 M Exm Date: DECEMBER 14, 2024@07:49 Req Phys: FARHAT BRIGGS Loc: [facility]ET[facility] PACT [facility]ITNEY 16-1 (Req'g Loc) Img Loc: NUCLEAR MEDICINE Service: [place] [address] (Case [id number] COMPLETE)[id number] REGADENOSON 0.1MG X4 (STEPHON(NM Detailed) CPT:J2785 Reason for Study: SEE CLINICAL HISTORY Clinical History: Cardiology approval by: [facility] CONNECTED? No Active Outpatient Medications (including [...] 14, 2024 Date Verified: DECEMBER 14, 2024 Immigration Investigator E-Sig: Report: STUDY: GXT with vasodilator REPORT: [...] Staff: CHAO ORR APRN, Cardiology Verified by buckle sewer for CHAO ORR /CHAO GIRON-D [facility] December 14, 2024 07:49 AM CARD. STRESS TEST W/TREADMILL/...: ROBBIE HUANG MICA [id number] -1940 M Exm Date: DECEMBER 14, 2024@07:49 Req Phys: FARHAT BRIGGS Loc: VETO PAC WHITNEY 16-1 (Req'g Loc) Img Loc: NUCLEAR MEDICINE Service: [place] [address] (Case [id number] COMPLETE)CARD. STRESS TEST W/TREADMILL/...(NM Detailed) CPT:37081 Proc Modifiers : GXT Reason for Study: [...] 14, 2024 Date Verified: DECEMBER 14, 2024 Immigration Investigator E-Sig: Report: [place], [place] STUDY: Regadenoson (Lexiscan) SPECT Tc-99m myoview [...] performed with tomographic and three-dimensional reconstructions with [employer] NM/CT 640 system. Exercise: Patient exercised for [...] data sets in addition to the conventional bhw-khewnacbskh-fjvqaaryu images. Both filtered back projection and iterative [...] ventricular cavity. 4. SPECT images: Attenuation-corrected and blb-nqxbnhulchm-isthiatzb SPECT images were evaluated. SPECT images demonstrate [...] JEB SANTOS MD, CARDIOLOGY ATTENDING Verified by buckle sewer for JEB SANTOS MD /JEB MANCILLA-D [facility] December 14, 2024 07:49 AM 56374(D) MYOCARDIA L SPECT(MULTIPLE): ROBBIE HUANG [id number] -1940 M Exm Date: DECEMBER 14, 2024@07:49 Req Phys: FARHAT BRIGGS Pat Loc: VETO PACT WHITNEY 16-1 (Req'g Loc) [facility] Loc: NUCLEAR MEDICINE Service: Unknown [place] [id number] (Case [id number] COMPLETE)[address](D) MYOCARDIAL SPECT(MULTIPL(NM Detailed) CPT:92056 Proc Modifiers : Lexiscan (Regadenoson) CPT Modifiers [...] YENNY GAMBOA Clinical History: Cardiology approval by: [facility] CONNECTED? No Active Outpatient Medications (including [...] 14, 2024 Date Verified: DECEMBER 14, 2024 Immigration Investigator E-Sig: Report: [facility], [place], [place] STUDY: Regadenoson (Lexiscan) SPECT Tc-99m myoview [...] performed with tomographic and three-dimensional reconstructions with [employer] NM/CT 640 system. Exercise: Patient exercised for [...] data sets in addition to the conventional yel-nokcgrqkeep-nbypnlywx images. Both filtered back projection and iterative [...] ventricular cavity. 4. SPECT images: Attenuation-corrected and mnh-hltwhyvgapv-ynynqqvfq SPECT images were evaluated. SPECT images demonstrate [...] JEB SANTOS MD, CARDIOLOGY ATTENDING Verified by buckle sewer for JEB SANTOS MD /JEB MANCILLA-CDD [facility] December 14, 2024 07:49 AM MYOVIEW(1): ROBBIE HUANGALEM [id number] -1940 M Exm Date: DECEMBER 14, 2024@07:49 Req Phys: FARHAT BRIGGS Loc: VETO PACT WHITNEY 16-1 (Req'g Loc) Img Loc: NUCLEAR MEDICINE Service: [place] [address] (Case [id number] COMPLETE)MYOVIEW(1) (NM Detailed) CPT:A9502 Reason for Study: [...] 14, 2024 Date Verified: DECEMBER 14, 2024 Immigration Investigator E-Sig: Report: [place] STUDY: Regadenoson (Lexiscan) SPECT Tc-99m myoview [...] with tomographic and three-dimensional reconstructions with [employer] NM/CT 640 system. Exercise: Patient exercised for [...] data sets in addition to the conventional wpt-xclynvwuodg-yzekxvoew images. Both filtered back projection and iterative [...] ventricular cavity. 4. SPECT images: Attenuation-corrected and rkc-jzskiihdxku-bdijbajlo SPECT images were evaluated. SPECT images demonstrate [...] JEB SANTOS MD, CARDIOLOGY ATTENDING Verified by buckle sewer for JBE SANTOS MD /JEB MANCILLA-CDD [facility] December 14, 2024 07:49 AM MYOVIEW(2): MALUROBBIE TINAJERO MICA [id number] -1940 M Ex Date: DECEMBER 14, 2024@07:49 Req Phys: FARHAT BRIGGS Loc: [facility] 16-1 (Req'g Loc) Img Loc: NUCLEAR MEDICINE Service: [place] [address] (Case [id number] COMPLETE)MYOVIEW(2) (NM Detailed) CPT:A9502 Reason for Study: [...] 14, 2024 Date Verified: DECEMBER 14, 2024 Immigration Investigator E-Sig: Report: [place] STUDY: Regadenoson (Lexiscan) SPECT Tc-99m myoview [...] performed with tomographic and three-dimensional reconstructions with [employer] NM/CT 640 system. Exercise: Patient exercised for [...] data sets in addition to the conventional udv-iwfawrbahdb-ulkzjrkvt images. Both filtered back projection and iterative [...] ventricular cavity. 4. SPECT images: Attenuation-corrected and jzr-pnoyyzphiht-bqykbhhys SPECT images were evaluated. SPECT images demonstrate [...] JEB SANTOS MD, CARDIOLOGY ATTENDING Verified by buckle sewer for JEB SANTOS MD /JEB MANCILLA-CDD [facility] December 14, 2024 07:49 AM [id number] REGADENOSON 0.1MG X1 (LEXISCAN): ROBBIE HUANG MICA [id number] -1940 M Exm Date: DECEMBER 14, 2024@07:49 Req Phys: FARHAT BRIGGS Pat Loc: [facility]ET[facility] PACT [facility]ITNEY 16-1 (Req'g Loc) Img Loc: NUCLEAR MEDICINE Service: [place] [address] (Case [id number] COMPLETE)[id number] REGADENOSON 0.1MG X1 (STEPHON(NM Detailed) CPT:J2785 [...] 14, 2024 Date Verified: DECEMBER 14, 2024 Immigration Investigator E-Sig: Report: [place] STUDY: Regadenoson (Lexiscan) SPECT Tc-99m myoview [...] performed with tomographic and three-dimensional reconstructions with [employer] NM/CT 640 system. Exercise: Patient exercised for [...] data sets in addition to the conventional nnx-ayrjwsbxkyr-afehjnjqx images. Both filtered back projection and iterative [...] ventricular cavity. 4. SPECT images: Attenuation-corrected and jrd-kyoppudpdih-qowachkkg SPECT images were evaluated. SPECT images demonstrate [...] JEB SANTOS MD, CARDIOLOGY ATTENDING Verified by buckle sewer for JEB SANTOS MD /JEB MANCILLA-CDD [facility] December 14, 2024 07:49 AM TC-99M X1 FROM NON -HEU SOURCE: ROBBIE HUANGALEM [id number] -1940 M Exm Date: DECEMBER 14, 2024@07:49 Req Phys: FARHAT BRIGGS Loc: [facility] 16-1 (Req'g Loc) Img Loc: NUCLEAR MEDICINE Service: [place] [address] (Case [id number] COMPLETE)TC-99M X1 FROM NON-HEU SOURCE (NM Detailed) [...] 14, 2024 Date Verified: DECEMBER 14, 2024 Immigration Investigator E-Sig: Report: [place] STUDY: Regadenoson (Lexiscan) SPECT Tc-99m myoview [...] performed with tomographic and three-dimensional reconstructions with [employer] NM/CT 640 system. Exercise: Patient exercised for [...] data sets in addition to the conventional huv-vwszejcricu-yrhszbtgf images. Both filtered back projection and iterative [...] ventricular cavity. 4. SPECT images: Attenuation-corrected and bln-sfcnktfotcv-qwgatjueb SPECT images were evaluated. SPECT images demonstrate [...] JEB SANTOS MD, CARDIOLOGY ATTENDING Verified by buckle sewer for JEB SANTOS MD /JEB MANCILLA-CDD [facility] December 14, 2024 07:49 AM [id number] REGADENOSON 0.1MG X2 (LEXISCAN): ROBBIE HUANG MICA [id number] [facility]1940 M [facility] Date: DECEMBER 14, 2024@07:49 Req Phys: FARHAT BRIGGS Loc: VETO PACT [facility]ITNEY 16-1 (Req'g Loc) g Loc: NUCLEAR MEDICINE Service: [place] [address] (Case [id number] COMPLETE)[id number] REGADENOSON 0.1MG X2 (STEPHON(NM Detailed) CPT:J2785 [...] 14, 2024 Date Verified: DECEMBER 14, 2024 Immigration Investigator E-Sig: Report: [facility], [place], [place] STUDY: Regadenoson (Lexiscan) SPECT Tc-99m myoview [...] performed with tomographic and three-dimensional reconstructions with [employer] NM/CT 640 system. Exercise: Patient exercised for [...] data sets in addition to the conventional epo-xbiechgyjzg-vrnfdtzti images. Both filtered back projection and iterative [...] ventricular cavity. 4. SPECT images: Attenuation-corrected and ybn-mylydfmgcix-itzishqlo SPECT images were evaluated. SPECT images demonstrate [...] JEB SANTOS MD, CARDIOLOGY ATTENDING Verified by buckle sewer for JEB SANTOS MD /RAD SANTOS,JEB BOOKER-ISMAEL [facility] December 14, 2024 07:49 AM [id number] REGADENOSON 0.1MG X3 (LEXISCAN): ROBBIE HUANG [id number] -1940 M Exm Date: DECEMBER 14, 2024@07:49 Req Phys: JORDYNFARHAT Raul Mora Loc: [facility]ETO PACT [facility]ITNEY 16-1 (Req'g Loc) Img Loc: NUCLEAR MEDICINE Service: [place] [address] (Case [id number] COMPLETE)[id number] REGADENOSON 0.1MG X3 (STEPHON(NM Detailed) CPT:J2785 [...] 14, 2024 Date Verified: DECEMBER 14, 2024 Immigration Investigator E-Sig: Report: [place] STUDY: Regadenoson (Lexiscan) SPECT Tc-99m myoview [...] performed with tomographic and three-dimensional reconstructions with [employer]CT 640 system. Exercise: Patient exercised for 6 [...] data sets in addition to the conventional aib-vpnwuhbsszj-anoouyltu images. Both filtered back projection and iterative [...] ventricular cavity. 4. SPECT images: Attenuation-corrected and yxe-albkwhenlkk-pfmnyygsa SPECT images were evaluated. SPECT images demonstrate [...] JEB SANTOS MD, CARDIOLOGY ATTENDING Verified by buckle sewer for JEB SANTOS MD /JEB MANCILLA-CDD [facility] December 14, 2024 07:49 AM TC-99M X2 FROM NON -HEU SOURCE: ROBBIE HUANG MICA [id number] -1940 M Exm Date: DECEMBER 14, 2024@07:49 Req Phys: FARHAT BRIGGS Loc: VETO PACT WHITNEY 16-1 (Req'g Loc) Img Loc: NUCLEAR MEDICINE Service: [place] [address] (Case [id number] COMPLETE)TC-99M X2 FROM NON-HEU SOURCE (NM Detailed) [...] 14, 2024 Date Verified: DECEMBER 14, 2024 Immigration Investigator E-Sig: Report: [facility] [place], [place] STUDY: Regadenoson (Lexiscan) SPECT Tc-99m myoview [...] performed with tomographic and three-dimensional reconstructions with [employer] NM/CT 640 system. Exercise: Patient exercised for [...] data sets in addition to the conventional cmd-ogxlfinhzaa-wtbqbfasz images. Both filtered back projection and iterative [...] ventricular cavity. 4. SPECT images: Attenuation-corrected and kaj-qaylxxwazdr-akqwnuebk SPECT images were evaluated. SPECT images demonstrate [...] JEB SANTOS MD, CARDIOLOGY ATTENDING Verified by buckle sewer for JEB SANTOS MD /JEB MANCILLA-D [facility] Encounter Notes: All associated encounter notes This section contains the clinical notes associated to the Encounter. Date/Time Encounter Note(s) Provider Source December 12, 2024 07:36 AM ADDENDUM: LOCAL TITLE: Addendum STANDARD TITLE: ADDENDUM DATE OF NOTE: DECEMBER 12, 2024@07:36:13 ENTRY DATE: DECEMBER 12, 2024@07:36:14 AUTHOR: FARHAT BRIGGS COSIGNER: URGENCY: STATUS: COMPLETED no, there is no eval for anosmnia. Yes he can hold plavix X 3 days for dental procedure. His breathing eval is still being worked up with cardiology evals, would keep appt with them as recommended. /jack/ Farhat Briggs MD Primary Care Attending Signed: 12/12/2024 07:37 Receipt Acknowledged By: 12/13/2024 10:53 /jack/ GARCIA BRUNNER, MSN, RN-BC [employer] ====== --- Original Document --- 12/11/24 HT INTERVENTION NOTE: HT Admission Date: 04/10/2024 [...] signs and symptoms of hypo-and hypertension; 3. [facility] will stay on a low-salt diet over the next 6 months. 4. will continue to stay active and exercise as able. 5. HT RN to encourage daily use of HT equipment. 6. HT RN to encourage the to call Home Telehealth for assistance if/when needed to coordinate care. 7. HT RN to submit semiannual/on-request summary reports to the primary care provider. [place] is actively enrolled in the Home Telehealth program. Review of data shows the following out of range responses: Patient Name: ROBBIE HUANG Disease(s): Hypertension Date Range: 11/27/2024 - 12/11/2024 Blood Pressure Readings: Date 04:00-12:00 12:00-18:00 18:00-04:00 12/11/24 131/67 67(10:28) 12/10/24 126/75 94(20:58) 144/73 82(19:18) 12/09/24 140/68 64(09:48) 133/71 82(19:46) 12/08/24 134/69 68(11:10) 140/70 71(20:42) 12/06/24 125/66 69(20:56) 12/05/24 136/68 66(13:42) 141/72 73(21:37) 12/04/24 131/75 61(15:14) 12/03/24 130/63 63(10:35) 133/67 63(20:53) 12/02/24 153/69 73(21:39) 12/01/24 124/66 60(10:55) 144/71 67(21:17) 11/30/24 136/68 66(11:23) 135/68 72(21:24) 11/29/24 135/66 64(10:13) 11/28/24 144/72 74(20:28) 11/27/24 140/66 64(11:28) 153/68 71(21:14) [facility] Average Report Sys/[facility] BP-HR Average 137/69 70 High 153/75 94 Low 124/63 60 Assessment/Intervention( s)/Plan: Called and spoke with regarding answer on HT machine, SOA and cough . 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 He has been researching and hoping that this does not mean that there is a blockage of any kind since he has both loss of smell and SOA also . Informed that loss of smell is also a s/e from COVID. Corea denies any other concerns or s/s. He stated that his dentist is wanting to know if he can come off Plavix for 3 days prior to upcoming appt first week of December. Informed would reach out to provider for further instruction. He appreciated call/assistance. PROVIDER: - Data update above - Corea with continued SOA and cough - he also has found he has loss of smell - questioning if he should be further evaluated for a nasal blockage or if this is still just s/e from COVID - Corea also inquiring about if he can come off Plavix for 3 days for dental appt - Please alert recs/changes to HT RN, thanks! /es/ GARCIA BRUNNER, MSN, RN-BC [employer] Signed: 12/11/2024 16:39 Receipt Acknowledged By: 12/12/2024 07:42 /es/ Farhat Briggs MD Primary Care Attending FARHAT BRIGGS [facility] December 11, 2024 01:17 PM CARE COORDINATION HOME TELEHEALTH FOLLOW-UP NOTE: LOCAL TITLE: HT INTERVENTION NOTE STANDARD TITLE: CARE COORDINATION HOME TELEHEALTH FOLLOW-UP NOTE DATE OF NOTE: DECEMBER 11, 2024@13:17 ENTRY DATE: DECEMBER 11, 2024@13:17:09 AUTHOR: GARCIA BRUNNER EXP COSIGNER: URGENCY: STATUS: COMPLETED HT INTERVENTION NOTE Has ADDENDA HT Admission Date: 04/10/2024 HT Diagnosis: HTN Provider-ordered vital sign goals: SBP<140 DBP <90 HT electronic capture of the blood pressure? Yes HT Emergency classification: L HT Category of Care: LOBO Last completion date: 10/15/24 Corea 3-month average response rate percentage: 97% HT [...] diet over the next 6 months. 4. Corea will continue to stay active and exercise as able. 5. HT RN to encourage daily use of HT equipment. 6. HT RN to encourage the Corea to call Home Telehealth for assistance if/when needed to coordinate care. 7. HT RN to submit semiannual/on-request summary reports to the primary care provider. is actively enrolled in the Home Telehealth program. Review of data shows the following out of range responses: Patient Name: ROBBIE HUANG Disease(s): Hypertension Date Range: 11/27/2024 - 12/11/2024 Blood Pressure Readings: Date 04:00-12:00 12:00-18:00 18:00-04:00 12/11/24 131/67 67(10:28) 12/10/24 126/75 94(20:58) 144/73 82(19:18) 12/09/24 140/68 64(09:48) 133/71 82(19:46) 12/08/24 134/69 68(11:10) 140/70 71(20:42) 12/06/24 125/66 69(20:56) 12/05/24 136/68 66(13:42) 141/72 73(21:37) 12/04/24 131/75 61(15:14) 12/03/24 130/63 63(10:35) 133/67 63(20:53) 12/02/24 153/69 73(21:39) 12/01/24 124/66 60(10:55) 144/71 67(21:17) 11/30/24 136/68 66(11:23) 135/68 72(21:24) 11/29/24 135/66 64(10:13) 11/28/24 144/72 74(20:28) 11/27/24 140/66 64(11:28) 153/68 71(21:14) [facility] Average Report Sys/[facility] BP-HR Average 137/69 70 High 153/75 94 Low 124/63 60 Assessment/Intervention( s)/Plan: Called and spoke with regarding answer on HT machine, SOA and cough . Corea stated that his local doctor is telling him this is most likely continued side effects from COVID infection. 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 He has been researching and hoping that this does not mean that there is a blockage of any kind since he has both loss of smell and SOA also . Informed that loss of smell is also a s/e from COVID. Corea denies any other concerns or s/s. He stated that his dentist is wanting to know if he can come off Plavix for 3 days prior to upcoming appt first week of December. Informed would reach out to provider for further instruction. He appreciated call/assistance. PROVIDER: - Data update above - with continued SOA and cough - he also has found he has loss of smell - questioning if he should be further evaluated for a nasal blockage or if this is still just s/e from COVID - Corea also inquiring about if he can come off Plavix for 3 days for dental appt - Please alert recs/changes to HT RN, thanks! /jack/ GARCIA BRUNNER, MSN, RN-BC [employer] Signed: 12/11/2024 16:39 Receipt Acknowledged By: 12/12/2024 07:42 /jack/ Farhat Briggs MD Primary Care Attending 12/12/2024 ADDENDUM STATUS: COMPLETED no, there is no eval for anosmnia. Yes he can hold plavix X 3 days for dental procedure. His breathing eval is still being worked up with cardiology evals, would keep appt with them as recommended. /jack/ Farhat Briggs MD Primary Care Attending Signed: 12/12/2024 07:37 Receipt Acknowledged By: * AWAITING SIGNATURE * GARCIA BRUNNER KATLYNN M [place] [facility]
--- OUTSIDE RECORDS SUMMARY | 2024-12-13 06:55 | XMS_ITS | Encounter Summary ---
Author Name [facility] [facility] [place] Address [address] [place] [address] Care Team Providers Care Audio Visual Coordinator Name Role Phone JORDYN FARHAT Primary Care [...] AUTOM OTIVE - RETI Jul 25, 2018 [id number] [phone] MALUTI PERKINS SPOUSE MEDICARE (WNR) MEDICARE (M) PART B Jan 22, 2007 PART B [id number] MALUJUSTYNA TINAJERO RGE PATIENT MEDICARE (WNR) MEDICARE (M) PART A Sep 22, 2005 PART A [id number] REIANJUSTYNA AKBAR PATIENT FOR LIFE TRICA RE FOR LIFE Jul 25, 2017 FOR LIFE [id number] ROBBIE HUANG JR PATIENT Selected Encounter This section includes the information on record at [place] for the Encounter. Date/Time Encounter Type Encounter Description Reason Provider Source December 13, 2024 10:55 AM PH1 ASSMT&MGMT NQHP 11-20 TELEPHONE BY STAFF ICD-10-CM I10 Essential (primary) hypertension KEEGAN BRUNNER E Encounter Template Text not used by [place] Assessments - Encounter Diagnoses This section includes the primary and secondary diagnoses documented for the Encounter. Date/Time Primary/Secondary Diagnosis Diagnosis Name Provider Source December 13, 2024 10:55 AM PRIMARY Essential (primary) hypertension SRINIVASAN BRUNNER [facility] Plan of Treatment: Future Appointments (+ 6 months) and Future Tests (+/- 45 days) The Plan of Treatment section includes future care activities for the patient from all [place] treatmentfacilities. This section includes future appointments and future orders which are active, pending or scheduled. Future Appointments This section includes appointments that were scheduled to occur 6 months from the date of the Encounter, up to a maximum of 20 appointments. The data comes from all [place] treatment [facility]. Appointment Date/Time Appointment Type Appointme nt Facility Name December 14, 2024 08:00 AM AMBULATORY - NONE [facility] Jan 04, 2025 01:30 PM AMBULATORY - SURGERY [facility] Jan 31, 2025 03:00 PM AMBULATORY - MEDICINE [facility] Feb 05, 2025 01:00 PM AMBULATORY - MEDICINE [facility] Feb 05, 2025 02:00 PM AMBULATORY - MEDICINE [facility] Active, Pending, and Scheduled Orders This section includes a listing of several types of active, pending, and scheduled orders, including clinic medications orders, diagnostic test orders, procedure orders and consult orders; where the start date of the order is 45 days before the date of the Encounter or 45 days after the date of theEncounter. The data comes from all [place] treatment [facility]. Test Date/Time Test Type Test Details Facility Name Jan 04, 2025 12:00 AM Imaging - Vascular Lab Order SEGMENTAL PRESSURES, LOWER EXT([place]) [facility] Jan 04, 2025 12:00 AM Imaging - Vascular Lab Order VENOUS DUPLEX LOWER EXT [facility] Lab Results: +/- 30 days of the encounter This section includes the Chemistry and Hematology Lab Results on record with [place] for the patient. Radiology Reports and Pathology Reports are provided separately, in subsequent sections. Lab Results This section contains the Chemistry/Hematology Results that were resulted 30 days before or 30 daysafter the date of the Encounter. Date/Time Source Result Type Result - Unit Interpretation Reference Range Specimen Type Comment December 03, 2024 02:03 PM [facility] PROTEIN ELECTROPHORESIS URINE Specimen Type: URINE No comment entered. Ordering Provider: FARHAT BRIGGS Report Released Date/Time: December 03, 2024 01:24 PM Reporting Lab: [address] [address] Performing Lab: [address] [address] TOTAL PROTEIN 17.0 mg/dL Not Estab. .ALBUMIN ELEC 29.4 .ALPHA 1 ELEC 5.2 .ALPHA 2 ELEC 21.5 .BETA ELEC 19.7 .GAMMA ELEC 24.2 .M-SPIKE Not Observed Not Observed December 03, 2024 02:03 PM [facility] TOTAL PROTEIN URINE Specimen Type: URINE No comment entered. Ordering Provider: FARHAT BRIGGS Report Released Date/Time: December 03, 2024 01:24 PM Reporting Lab: [address] [address] Performing Lab: [address] [address] TOTAL PROTEIN 16 mg/dL H 0-14 December 03, 2024 02:03 PM [facility] CREATININE URINE Specimen Type: URINE No comment entered. Ordering Provider: FARHAT BRIGGS Report Released Date/Time: December 03, 2024 01:24 PM Reporting Lab: [address] [address] Performing Lab: [address] [address] CREATININE 63.6 mg/dL December 03, 2024 02:03 PM [facility] URINALYSIS URINE Specimen Type: URINE Comment: Microscopic not indicated Ordering Provider: FARHAT BRIGGS Report Released Date/Time: December 03, 2024 01:29 PM Reporting Lab: [address] [address] Performing Lab: [place] [phone] URINE COLOR Light Yellow Colorless-Yello w APPEARANCE Clear Clear UROBILINOGEN Normal mg/dL Normal URINE BLOOD Negative Negative URINE BILIRUBIN Negative Negative URINE KETONES Negative mg/dL Negative URINE PROTEIN Negative mg/dL Negative-Tr rachell URINE PH 5.0 4.5-8.0 URINE NITRITE Negative Negative URINE LEUKOCYTE EST Negative Negative SPECIFIC GRAVITY 1.014 1.005-1.030 URINE GLUCOSE >1000 mg/dL H Negative December 03, 2024 01:45 PM [facility] ANTI-NUCLEAR Ab SERUM Specimen Type: SERUM Comment: Atypical speckled resembling DFS (Dense-Fine Speckled. The DFS pattern has a low prevalence in systemic autoimmune rheumatic diseases. The clinical association remains unclear. Due to its close resemblance to other patterns of clinical relevance, (i.e. Homogeneous, speckled, and mixed patterns) follow-up testing may be recommended. ANTI-NUCLEAR Ab reported incorrectly as Atypical Speckled by [[id number]]. Changed to 1:320 Atypical Speckled on December 06, 2024@12:59 by [[id number]]. Ordering Provider: FARHAT BRIGGS Report Released Date/Time: December 03, 2024 01:38 PM Reporting Lab: [place] [phone] Performing Lab: [place] [phone] ANTI-NUCLEAR Ab 1:320 Atypical Speckled <1:80 December 03, 2024 01:45 PM [facility] ROSALIE (SERUM) SERUM Specimen Type: SERUM Comment: BNP results less than or equal to 100 pg/ml are shipping services sales representative of normal values in patients without CHF. BNP results greater than 100 pg/ml are considered abnormal and suggestive of CHF. Higher BNP concentrations in the first 72 hours after Acute Coronary Syndrome are associated with an increased risk of , myocardial infarction and CHF. Ordering Provider: FARHAT BRIGGS Report Released Date/Time: December 03, 2024 01:24 PM Reporting Lab: [place] [phone] Performing Lab: [facility] [address] [facility] [address] .ALBUMIN ELEC 3.6 g/dL 2.9-4.4 .ALPHA 1 [...] INTERPRETATION Comment December 03, 2024 01:45 PM [facility] JORDAN SCREEN SERUM Specimen Type: SERUM No comment entered. Ordering Provider: FARHAT BRIGGS Report Released Date/Time: December 03, 2024 01:38 PM Reporting Lab: [address] [address] Performing Lab: [address] [address] JORDAN SCREEN Negative Negative December 03, 2024 01:45 PM [facility] BNP (MCCALL) PLASMA Specimen Type: PLASMA Comment: BNP results less than or equal to 100 pg/ml are shipping services sales representative of normal values in patients without CHF. BNP results greater than 100 pg/ml are considered abnormal and suggestive of CHF. Higher BNP concentrations in the first 72 hours after Acute Coronary Syndrome are associated with an increased risk of , myocardial infarction and CHF. Ordering Provider: FARHAT BRIGGS Report Released Date/Time: December 03, 2024 01:24 PM Reporting Lab: [address] [address] Performing Lab: [address] [address] BNP (MCCALL) 225 pg/mL H 0-100 December 03, 2024 01:45 PM [facility] CK TOTAL PLASMA Specimen Type: PLASM [...] December 03, 2024 01:33 PM Reporting Lab: [address] [address] Performing Lab: [address] [address] CK TOTAL 76 U/L 30-200 December 03, 2024 01:45 PM [facility] PANEL 5 PLASMA Specimen Type: PLASM [...] December 03, 2024 01:24 PM Reporting Lab: [place] [id number] [facility] [address] Performing Lab: [address] [address] CREATININE 2.05 mg/dL H 0.72-1.25 UREA NITROGEN [...] (CKD-EPI) 31 December 03, 2024 01:45 PM [facility]T BLOOD Specimen Type: BLOOD No comment entered. Ordering Provider: FARHAT BRIGGS Report Released Date/Time: December 03, 2024 01:33 PM Reporting Lab: [address] [address] Performing Lab: [place] [phone] WBC 5.6 10*3/uL 5.0-10.0 RBC 4.24 10*6/uL L 4.6-6.2 HGB 12.8 g/dL L 14.0-18.0 HCT 39.4 L 42.0-52.0 MCV 92.9 fL 80.0-94.0 MCH 30.2 pg 27.0-31.0 MCHC 32.5 g/dL 32.0-36.0 PLT 248 10*3/uL 150-450 MPV 10.2 fL 9.0-13.1 RDW 14.2 11.0-16.0 NRBC 0.0 0.0-0.0 December 03, 2024 01:45 PM [facility] AUTOMATED DIFF BLOOD Specimen Type: BLOOD No comment entered. Ordering Provider: FARHAT BRIGGS Report Released Date/Time: December 03, 2024 01:33 PM Reporting Lab: [address] [address] Performing Lab: [facility] [address] [place] [address] A-LYMPH % 22.1 L 24.0-44.0 A-MONO % [...] and tobacco- related health factors from the [place] facility where the Encounter took place. Current Smoking Status This section includes the most current smoking, or tobacco-related health factor, from the [place] facility where the Encounter took place. Date/Time Current Smoking Status Comment Kelechi ity May 25, 2023 01:30 PM VA-TOBACCO FORMER USER [facility] Tobacco Use History This section includes a history of the smoking, or tobacco-related health factors, that were collected on or before the date of the Encounter. The data comes from the [place] facility where the Encounter took place. Date/Time [...] OF TOBACCO [facility] Radiology Reports: +/- 30 days of [...] the Encounter. The data comes from all [facility]. Date/Time Radiology Report Provider Source December 14, 2024 07:49 AM CARD. STRESS TEST W/TREADMILL/...: ROBBIE HUANG [id number] -1940 M Exm Date: DECEMBER 14, 2024@07:49 Req Phys: FARHAT BRIGGS Loc: [facility] 16-1 (Req'g Loc) Img Loc: NUCLEAR MEDICINE Service: [place] [address] (Case [id number] COMPLETE)CARD. STRESS TEST W/TREADMILL/...(NM Detailed) CPT:51476 Reason for Study: SEE CLINICAL HISTORY Clinical History: [facility]? No Active Outpatient Medications (including [...] 14, 2024 Date Verified: DECEMBER 14, 2024 Housing Grant Analyst E-Sig: Report: STUDY: GXT with vasodilator [...] Staff: CHAO ORR APRN, Cardiology Verified by warehouse analyst for CHAO ORR /CHAO GIRON-D [facility] December 14, 2024 07:49 AM CARD. STRESS TEST W/TREADMILL/...: ROBBIE HUANG [id number] 1940 M Exm Date: DECEMBER 14, 2024@07:49 Req Phys: FARHAT BRIGGS Loc: [facility] 16-1 (Req'g Loc) Im Loc: NUCLEAR MEDICINE Service: Unknown [place] [id number] (Case [id number] COMPLETE)CARD. STRESS TEST W/TREADMILL/...(NM Detailed) CPT:92367 Proc Modifiers : GXT Reason for Study: SEE CLINICAL HISTORY Clinical History: Cardiology approval by: [facility] CONNECTED? No Active Outpatient Medications (including [...] 14, 2024 Date Verified: DECEMBER 14, 2024 Housing Grant Analyst E-Sig: Report: [place], [place] STUDY: Regadenoson (Lexiscan) SPECT Tc-99m myoview [...] performed with tomographic and three-dimensional reconstructions with [employer] NM/CT 640 system. Exercise: Patient exercised for [...] data sets in addition to the conventional ilx-qznqkjfkccq-glbmhiplg images. Both filtered back projection and iterative [...] ventricular cavity. 4. SPECT images: Attenuation-corrected and qts-wrqcrrcbdca-ftvnrqepd SPECT images were evaluated. SPECT images demonstrate [...] JEB SANTOS MD, CARDIOLOGY ATTENDING Verified by warehouse analyst for JEB SANTOS MD /JEB MANCILLA-CDD [facility] December 14, 2024 07:49 AM [id number] REGADENOSON 0.1MG X4 (LEXISCAN): ROBBIE HUANG [facility] [id number] -[address] [facility] Date: DECEMBER 14, 2024@07:49 Req Phys: FARHAT BRIGGS Abby Loc: [facility] 16-1 (Req'g Loc) Img Loc: NUCLEAR MEDICINE Service: [place] [address] (Case [id number] COMPLETE)[id number] REGADENOSON 0.1MG X4 (STEPHON(NM Detailed) CPT:J2785 [...] 14, 2024 Date Verified: DECEMBER 14, 2024 Housing Grant Analyst E-Sig: Report: STUDY: GXT with vasodilator [...] Staff: CHAO ORR APRN, Cardiology Verified by warehouse analyst for CHAO ORR /CHAO [facility] December 14, 2024 07:49 AM 76931(D) MYOCARDIA L SPECT(MULTIPLE): ROBBIE HUANG [id number] -1940 M Exm Date: DECEMBER 14, 2024@07:49 Req Phys: FARHAT BRIGGS Pat Loc: [facility] 16-1 (Req'g Loc) [facility] Loc: NUCLEAR MEDICINE Service: [place] [address] (Case [id number] COMPLETE)59569(D) MYOCARDIAL SPECT(MULTIPL(NM Detailed) CPT:11967 Proc Modifiers : Lexiscan (Regadenoson) CPT Modifiers [...] YENNY GAMBOA Clinical History: Cardiology approval by: [facility] CONNECTED? No Active Outpatient Medications (including [...] 14, 2024 Date Verified: DECEMBER 14, 2024 Housing Grant Analyst E-Sig: Report: [facility], [place], [place] STUDY: Regadenoson (Lexiscan) SPECT Tc-99m myoview [...] performed with tomographic and three-dimensional reconstructions with [employer] NM/CT 640 system. Exercise: Patient exercised for [...] data sets in addition to the conventional uir-kyxwnyxeavi-bgjzxteof images. Both filtered back projection and iterative [...] ventricular cavity. 4. SPECT images: Attenuation-corrected and pqw-karyhkvvgrh-cfaiswyii SPECT images were evaluated. SPECT images demonstrate [...] JEB SANTOS MD, CARDIOLOGY ATTENDING Verified by warehouse analyst for JEB SANTOS MD /JEB MANCILLA-CDD [facility] December 14, 2024 07:49 AM MYOVIEW(1): ROBBIE HUANGALEM [id number] -1940 M Exm Date: DECEMBER 14, 2024@07:49 Req Phys: FARHAT BRIGGS Loc: [facility] 16-1 (Req'g Loc) Img Loc: NUCLEAR MEDICINE Service: [place] [address] (Case [id number] COMPLETE)MYOVIEW(1) (NM Detailed) CPT:A9502 Reason for Study: [...] 14, 2024 Date Verified: DECEMBER 14, 2024 Housing Grant Analyst E-Sig: Report: [place] STUDY: Regadenoson (Lexiscan) SPECT Tc-99m myoview [...] with tomographic and three-dimensional reconstructions with [employer] [place] [employer] [place] NM/CT 640 system. Exercise: Patient exercised for [...] data sets in addition to the conventional tvl-jaefurpncym-hgjcvyjyk images. Both filtered back projection and iterative [...] ventricular cavity. 4. SPECT images: Attenuation-corrected and xtg-xytyypbnhuq-migqdmpuu SPECT images were evaluated. SPECT images demonstrate [...] JEB SANTOS MD, CARDIOLOGY ATTENDING Verified by warehouse analyst for JEB SANTOS MD /JEB MANCILLA-CDD [facility] December 14, 2024 07:49 AM MYOVIEW(2): MALUROBBIE TINAJERO MICA [id number] -1940 M Ex Date: DECEMBER 14, 2024@07:49 Req Phys: FARHAT BRIGGS Loc: [facility] 16-1 (Req'g Loc) Img Loc: NUCLEAR MEDICINE Service: [place] [address] (Case [id number] COMPLETE)MYOVIEW(2) (NM Detailed) CPT:A9502 Reason for Study: [...] 14, 2024 Date Verified: DECEMBER 14, 2024 Housing Grant Analyst E-Sig: Report: [place] STUDY: Regadenoson (Lexiscan) SPECT Tc-99m myoview [...] performed with tomographic and three-dimensional reconstructions with [employer] NM/CT 640 system. Exercise: Patient exercised for [...] data sets in addition to the conventional jll-mlnrkmdzclr-ituyzebou images. Both filtered back projection and iterative [...] ventricular cavity. 4. SPECT images: Attenuation-corrected and gtk-scyesuskpex-lxqeocemt SPECT images were evaluated. SPECT images demonstrate [...] JEB SANTOS MD, CARDIOLOGY ATTENDING Verified by warehouse analyst for JEB SANTOS MD /JEB MANCILLA-CDD [facility] December 14, 2024 07:49 AM [id number] REGADENOSON 0.1MG X1 (LEXISCAN): ROBBIE HUANG MICA [id number] -1940 M Exm Date: DECEMBER 14, 2024@07:49 Req Phys: FARHAT BRIGGS Pat Loc: [facility] 16-1 (Req'g Loc) Img Loc: NUCLEAR MEDICINE Service: [place] [address] (Case [id number] COMPLETE)[id number] REGADENOSON 0.1MG X1 (STEPHON(NM Detailed) CPT:J2785 [...] 14, 2024 Date Verified: DECEMBER 14, 2024 Housing Grant Analyst E-Sig: Report: [place] STUDY: Regadenoson (Lexiscan) SPECT Tc-99m myoview [...] performed with tomographic and three-dimensional reconstructions with [employer] NM/CT 640 system. Exercise: Patient exercised for [...] data sets in addition to the conventional dfr-ltkwcmqbrpl-iufomylzi images. Both filtered back projection and iterative [...] ventricular cavity. 4. SPECT images: Attenuation-corrected and wbc-kdgnrgluctf-sjbdbexln SPECT images were evaluated. SPECT images demonstrate [...] JEB SANTOS MD, CARDIOLOGY ATTENDING Verified by warehouse analyst for JEB SANTOS MD /JEB MANCILLA-CDD [facility] December 14, 2024 07:49 AM TC-99M X1 FROM NON -HEU SOURCE: ROBBIE HUANGALEM [id number] -1940 M Exm Date: DECEMBER 14, 2024@07:49 Req Phys: FARHAT BRIGGS Loc: [facility] 16-1 (Req'g Loc) Img Loc: NUCLEAR MEDICINE Service: [place] [address] (Case [id number] COMPLETE)TC-99M X1 FROM NON-HEU SOURCE (NM Detailed) [...] 14, 2024 Date Verified: DECEMBER 14, 2024 Housing Grant Analyst E-Sig: Report: [place] STUDY: Regadenoson (Lexiscan) SPECT Tc-99m myoview [...] performed with tomographic and three-dimensional reconstructions with [employer] NM/CT 640 system. Exercise: Patient exercised for [...] data sets in addition to the conventional wgx-hqnhzwghcxh-pjxkeqyrz images. Both filtered back projection and iterative [...] ventricular cavity. 4. SPECT images: Attenuation-corrected and zew-zecnnezrjvz-xytzpslia SPECT images were evaluated. SPECT images demonstrate [...] JEB SANTOS MD, CARDIOLOGY ATTENDING Verified by warehouse analyst for JEB SANTOS MD /JEB MANCILLA-CDD [facility] December 14, 2024 07:49 AM [id number] REGADENOSON 0.1MG X3 (LEXISCAN): REINAROBBIE MICA [id number] [facility]-[address] [facility] Date: DECEMBER 14, 2024@07:49 Req Phys: FARHAT BRIGGS Loc: [facility] 16-1 (Req'g Loc) g Loc: NUCLEAR MEDICINE Service: [place] [address] (Case [id number] COMPLETE)[id number] REGADENOSON 0.1MG X3 (STEPHON(NM Detailed) CPT:J2785 [...] 14, 2024 Date Verified: DECEMBER 14, 2024 Housing Grant Analyst E-Sig: Report: [facility], [place], [place] STUDY: Regadenoson (Lexiscan) SPECT Tc-99m myoview [...] performed with tomographic and three-dimensional reconstructions with [employer] NM/CT 640 system. Exercise: Patient exercised for [...] data sets in addition to the conventional lxy-dteuljzwrdf-ydbfwiher images. Both filtered back projection and iterative [...] ventricular cavity. 4. SPECT images: Attenuation-corrected and bsm-ehxzvalyoee-obsbacgay SPECT images were evaluated. SPECT images demonstrate [...] JEB SANTOS MD, CARDIOLOGY ATTENDING Verified by warehouse analyst for JEB SANTOS MD /JEB MANCILLA-ISMAEL [facility] December 14, 2024 07:49 AM TC-99M X2 FROM NON -HEU SOURCE: ROBBIE HUANG [id number] -1940 M Exm Date: DECEMBER 14, 2024@07:49 Req Phys: FARHAT BRIGGS Loc: [facility] 16-1 (Req'g Loc) Img Loc: NUCLEAR MEDICINE Service: [place] [address] (Case [id number] COMPLETE)TC-99M X2 FROM NON-HEU SOURCE (NM Detailed) CPT:Q9969 Reason for Study: SEE CLINICAL HISTORY Clinical History: Cardiology approval by: [facility] SERVICE CONNECTED? No Active Outpatient Medications [...] 14, 2024 Date Verified: DECEMBER 14, 2024 Housing Grant Analyst E-Sig: Report: [facility], [place], [place] STUDY: Regadenoson (Lexiscan) SPECT Tc-99m myoview [...] performed with tomographic and three-dimensional reconstructions with [employer] NM/CT 640 system. Exercise: Patient exercised for [...] data sets in addition to the conventional rob-yqsxgwepwxk-qpfccvisk images. Both filtered back projection and iterative [...] ventricular cavity. 4. SPECT images: Attenuation-corrected and smo-zgdfcsrgxyp-jahgftrpp SPECT images were evaluated. SPECT images demonstrate [...] JEB SANTOS MD, CARDIOLOGY ATTENDING Verified by warehouse analyst for JEB SANTOS MD /JEB MANCILLA-CDD [facility] December 14, 2024 07:49 AM [id number] REGADENOSON 0.1MG X2 (LEXISCAN): ROBBIE HUANG MICA [id number] -1940 M Exm Date: DECEMBER 14, 2024@07:49 Req Phys: FARHAT BRIGGS Pat Loc: [facility] 16-1 (Req'g Loc) Img Loc: NUCLEAR MEDICINE Service: [place] [address] (Case [id number] COMPLETE)[id number] REGADENOSON 0.1MG X2 (STEPHON(NM Detailed) CPT:J2785 [...] 14, 2024 Date Verified: DECEMBER 14, 2024 Housing Grant Analyst E-Sig: Report: [facility], [place], [place] STUDY: Regadenoson (Lexiscan) SPECT Tc-99m myoview [...] performed with tomographic and three-dimensional reconstructions with [employer] NM/CT 640 system. Exercise: Patient exercised for [...] data sets in addition to the conventional rwp-dxynutarpyx-itgiaswjt images. Both filtered back projection and iterative [...] ventricular cavity. 4. SPECT images: Attenuation-corrected and ixz-nvmpgfyhqbe-ghzztgcio SPECT images were evaluated. SPECT images demonstrate [...] JEB SANTOS MD, CARDIOLOGY ATTENDING Verified by warehouse analyst for JEB SANTOS MD /JEB MANCILLA-D [facility] Encounter Notes: All associated encounter notes This section contains the clinical notes associated to the Encounter. Date/Time Encounter Note(s) Provider Source December 14, 2024 01:33 PM PRIMARY CARE LETTE RS: LOCAL TITLE: PC LETTER TEST RESULTS STANDARD TITLE: PRIMARY CARE LETTERS DATE OF NOTE: DECEMBER 14, 2024@13:33 ENTRY DATE: DECEMBER 14, 2024@13:33:53 AUTHOR: JAIME STEVE EXP COSIGNER: URGENCY: STATUS: COMPLETED [facility] [address] [place] [id number] ROBBIE HUANG [address] [place] [id number] DECEMBER 14, 2024 Dear Mr. ROBBIE HUANG Your Primary Care Provider has reviewed your recent tests. A copy of your test results is attached below. Please call us if you have questions or problems. You can reach us at (toll free number) or [phone] (local number). If you are enrolled in [employer], and utilize those services, you may prefer to contact us by secure message. Thank you for your service to our Country. We are honored to be able to provide medical care to you. Recent radiology results Impression: 1. This is an abnormal nuclear [...] known coronary arterial calcification/stents. Bilateral hilar calcifications. YOUR PCP WOULD LIKE TO INFORM YOU OF THE FOLLOWING: Cardiac evaluation without any significant changes. Has PFTs in January and pulmonology follow up. If your breathing is still not back to baseline, let pulmonology know in case you need to move up your apponitment. If Bilateral Lower Extremities edema is ongoing, I recommend venous duplex and ABIs so can start compression hose if venous insufficiency. Please call the office to advise if you agrees with recommendations. Sincerely, /jack/ JAIME VICENTE, RN PC DEFECTIVE CIGARETTE SLITTER Patient Record Number [id number] JAIME STEVE [facility] December 13, 2024 11:04 AM ADDENDUM: LOCAL TITLE: Addendum STANDARD TITLE: ADDENDUM DATE OF NOTE: DECEMBER 13, 2024@11:04:10 ENTRY DATE: DECEMBER 13, 2024@11:04:11 AUTHOR: FARHAT BRIGGS EXP COSIGNER: URGENCY: STATUS: COMPLETED it is okay, nuclear stress tests do not use contrast dye. /jack/ Farhat Briggs MD Primary Care Attending Signed: 12/13/2024 11:04 Receipt Acknowledged By: 12/13/2024 11:11 /jack/ GARCIA BRUNNER MSN, RN-BC SLICING MACHINE FEEDER ====== --- Original Document --- 12/13/24 HT NOTE: Called and informed of PCP response: no, there is no eval for anosmnia. Yes he can hold plavix X 3 days for dental procedure. His breathing eval is still being worked up with cardiology evals, would keep appt with them as recommended. /jack/ Farhat Briggs MD Primary Care Attending Signed: 12/12/2024 07:37 Vernon verbalized understanding. Vernon is inquiring if nuclear stress test appropriate for his kidneys as his kidney function is not the best and doesn't need any help to get worse . Informed that is aware of lab work prior to ordering test but will confirm for reassurance. He appreciated. Alerting PCP - Vernon nervous/concerned about nuclear stress test and kidney function - wanting to have your blessing to have test completed. (informed that you were ordering provider and aware of lab work but he would like reassurance from you). thanks! /jack/ PATY BE, RN-BC SLICING MACHINE FEEDER Signed: 12/13/2024 10:59 Receipt Acknowledged By: 12/13/2024 11:05 /jack/ Farhat Briggs MD Primary Care Attending FARHAT BRIGGS [facility] December 13, 2024 10:55 AM CARE COORDINATION HOME TELEHEALTH NOTE: LOCAL TITLE: HT NOTE STANDARD TITLE: CARE COORDINATION HOME TELEHEALTH NOTE DATE OF NOTE: DECEMBER 13, 2024@10:55 ENTRY DATE: DECEMBER 13, 2024@10:55:38 AUTHOR: GARCIA BRUNNER EXP COSIGNER: URGENCY: STATUS: COMPLETED HT NOTE Has ADDENDA Called and informed of PCP response: no, there is no eval for anosmnia. Yes he can hold plavix X 3 days for dental procedure. His breathing eval is still being worked up with cardiology evals, would keep appt with them as recommended. /jack/ Farhat Briggs MD Primary Care Attending Signed: 12/12/2024 07:37 verbalized understanding. is inquiring if nuclear stress test appropriate for his kidneys as his kidney function is not the best and doesn't need any help to get worse . Informed that is aware of lab work prior to ordering test but will confirm for reassurance. He appreciated. Alerting PCP - nervous/concerned about nuclear stress test and kidney function - wanting to have your blessing to have test completed. (informed that you were ordering provider and aware of lab work but he would like reassurance from you). thanks! /jack/ GARCIA BRUNNER, MSN, RN-BC SLICING MACHINE FEEDER Signed: 12/13/2024 10:59 Receipt Acknowledged By: 12/13/2024 11:05 /jack/ Farhat Briggs MD Primary Care Attending 12/13/2024 ADDENDUM STATUS: COMPLETED it is okay, nuclear stress tests do not use contrast dye. /jack/ Farhat Briggs MD Primary Care Attending Signed: 12/13/2024 11:04 Receipt Acknowledged By: * AWAITING SIGNATURE * GARCIA BRUNNER KATLYNN M [place] [facility]
--- OUTSIDE RECORDS SUMMARY | 2024-12-14 05:08 | XMS_ITS | Encounter Summary ---
Author Name [facility] [facility] [facility] [place] Address [address] [place] [address] Care Team Providers Care Story Writer Name Role Phone DALIA COBB Primary Care [...] Asif's Name Patient's Relationship to Policy Asif [facility] [place] BLUECARD MEDICARE SECONDARY (NO B EXC) TI AUTOM OTIVE - RETI Jul 25, 2018 [id number] MALUTI PERKINSA SPOUSE MEDICARE (WNR) MEDICARE (M) PART B Jan 22, 2007 PART B [id number] [phone] REINAJUSTYNA PATIENT MEDICARE (WNR) MEDICARE (M) PART A Sep 22, 2005 PART A [id number] REINAJUSTYNA AKBAR PATIENT FOR LIFE TRICA RE FOR LIFE Jul 25, 2017 FOR LIFE [id number] REINA ROBBIE PATIENT Selected Encounter This section includes the information on record at [place] for the Encounter. Date/Time Encounter Type Encounter Description Reason Pro vider Source December 14, 2024 09:08 AM Outpatient Encounter EVENT (HISTORICAL) IHE Encounter Template Text not used by [place] Plan of Treatment: Future Appointments (+ 6 months) and Future Tests (+/- 45 days) The Plan of Treatment section includes future care activities for the patient [facility] [place] [facility] This section includes future appointments and future orders which are active, pending or scheduled. Future Appointments This section includes appointments that were scheduled to occur 6 months from the date of the Encounter, up to a maximum of 20 appointments. The data comes from all [place] treatment facilities. Appointment Date/Time Appointment Type Appointme nt Facility Name Jan 04, 2025 01:30 PM AMBULATORY - SURGERY [facility] Jan 31, 2025 03:00 PM AMBULAT[facility] Feb 05, 2025 01:00 PM AMB[facility] - [facility] Feb 05, 2025 02:00 PM [facility] Active, Pending, and Scheduled Orders This section includes a listing of several types of active, pending, and scheduled orders, including clinic medications orders, diagnostic test orders, procedure orders and consult orders; where the start date of the order is 45 days before the date of the Encounter or 45 days after the date of theEncounter. The data comes from all [facility]. Test Date/Time Test Type Test Details Facility Name Jan 04, 2025 12:00 AM Imaging - Vascular Lab Order SEGMENTAL PRESSURES, LOWER EXT([place]) UNILAT [facility] Jan 04, 2025 12:00 AM Imaging - Vascular Lab Order VENOUS DUPLEX LOWER EXT [facility] Lab Results: +/- 30 days of the encounter This section includes the Chemistry and Hematology Lab Results on record with [place] for the patient. Radiology Reports and Pathology Reports are provided separately, in subsequent sections. Lab Results This section contains the Chemistry/Hematology Results that were resulted 30 days before or 30 daysafter the date of the Encounter. Date/Time Source Result Type Result - Unit Interpretation Reference Range Specimen Type Comment December 03, 2024 02:03 PM [facility] PROTEIN ELECTROPHORESIS URINE Specimen Type: URINE No comment entered. Ordering Provider: DALIA COBB Report Released Date/Time: December 03, 2024 01:24 PM Reporting Lab: [address] [address] Performing Lab: [facility] [address] [facility] [address] TOTAL PROTEIN 17.0 mg/dL Not Estab. .ALBUMIN ELEC 29.4 .ALPHA 1 ELEC 5.2 .ALPHA 2 ELEC 21.5 .BETA ELEC 19.7 .GAMMA ELEC 24.2 .M-SPIKE Not Observed Not Observed December 03, 2024 02:03 PM [facility] TOTAL PROTEIN URINE Specimen Type: URINE No comment entered. Ordering Provider: DALIA COBB Report Released Date/Time: December 03, 2024 01:24 PM Reporting Lab: [address] [address] Performing Lab: [address] [address] TOTAL PROTEIN 16 mg/dL H 0-14 December 03, 2024 02:03 PM [facility] CREATININE URINE Specimen Type: URINE No comment entered. Ordering Provider: DALIA COBB Report Released Date/Time: December 03, 2024 01:24 PM Reporting Lab: [address] [address] Performing Lab: [address] [address] CREATININE 63.6 mg/dL December 03, 2024 02:03 PM [facility] URINALYSIS URINE Specimen Type: URINE Comment: Microscopic not indicated Ordering Provider: DALIA COBB Report Released Date/Time: December 03, 2024 01:29 PM Reporting Lab: [address] [address] Performing Lab: [address] [address] URINE COLOR Light Yellow Colorless-Yello w APPEARANCE Clear Clear UROBILINOGEN Normal mg/dL Normal URINE BLOOD Negative Negative URINE BILIRUBIN Negative Negative URINE KETONES Negative mg/dL Negative URINE PROTEIN Negative mg/dL Negative-Tr rachell URINE PH 5.0 4.5-8.0 URINE NITRITE Negative Negative URINE LEUKOCYTE EST Negative Negative SPECIFIC GRAVITY 1.014 1.005-1.030 URINE GLUCOSE >1000 mg/dL H Negative December 03, 2024 01:45 PM [facility] ANTI-NUCLEAR Ab SERUM Specimen Type: SERUM Comment: Atypical speckled resembling DFS (Dense-Fine Speckled. The DFS pattern has a low prevalence in systemic autoimmune rheumatic diseases. The clinical association remains unclear. Due to its close resemblance to other patterns of clinical relevance, (i.e. Homogeneous, speckled, and mixed patterns) follow-up testing may be recommended. ANTI-NUCLEAR Ab reported incorrectly as Atypical Speckled by [[id number]]. Changed to 1:320 Atypical Speckled on December 06, 2024@12:59 by [[id number]]. Ordering Provider: DALIA COBB Report Released Date/Time: December 03, 2024 01:38 PM Reporting Lab: [address] [address] Performing Lab: [address] [address] ANTI-NUCLEAR Ab 1:320 Atypical Speckled <1:80 December 03, 2024 01:45 PM [facility] ROSALIE (SERUM) SERUM Specimen Type: SERUM Comment: BNP results less than or equal to 100 pg/ml are fulfillment representative of normal values in patients without CHF. BNP results greater than 100 pg/ml are considered abnormal and suggestive of CHF. Higher BNP concentrations in the first 72 hours after Acute Coronary Syndrome are associated with an increased risk of , myocardial infarction and CHF. Ordering Provider: DALIA COBB Report Released Date/Time: December 03, 2024 01:24 PM Reporting Lab: [address] [address] Performing Lab: [address] [address] .ALBUMIN ELEC 3.6 g/dL 2.9-4.4 .ALPHA 1 [...] INTERPRETATION Comment December 03, 2024 01:45 PM [facility] JORDAN SCREEN SERUM Specimen Type: SERUM No comment entered. Ordering Provider: DALIA COBB Report Released Date/Time: December 03, 2024 01:38 PM Reporting Lab: [address] [address] Performing Lab: [address] [address] JORDAN SCREEN Negative Negative December 03, 2024 01:45 PM [facility] BNP ([employer]) PLASMA Specimen Type: PLASMA Comment: BNP results less than or equal to 100 pg/ml are fulfillment representative of normal values in patients without CHF. BNP results greater than 100 pg/ml are considered abnormal and suggestive of CHF. Higher BNP concentrations in the first 72 hours after Acute Coronary Syndrome are associated with an increased risk of , myocardial infarction and CHF. Ordering Provider: DALIA COBB Report Released Date/Time: December 03, 2024 01:24 PM Reporting Lab: [address] [address] Performing Lab: [address] [address] BNP (MCCALL) 225 pg/mL H 0-100 December 03, 2024 01:45 PM [facility] CK TOTAL PLASMA Specimen Type: [...] December 03, 2024 01:33 PM Reporting Lab: [address] [address] Performing Lab: [address] [address] CK TOTAL 76 U/L 30-200 December 03, [...] December 03, 2024 01:24 PM Reporting Lab: [address] [address] Performing Lab: [address] [address] CREATININE 2.05 mg/dL H 0.72-1.25 UREA NITROGEN [...] (CKD-EPI) 31 December 03, 2024 01:45 PM [facility] CBC/PLT BLOOD Specimen Type: BLOOD No comment entered. Ordering Provider: DALIA COBB Report Released Date/Time: December 03, 2024 01:33 PM Reporting Lab: [address] [address] Performing Lab: [place] [phone] WBC 5.6 10*3/uL 5.0-10.0 RBC 4.24 10*6/uL L 4.6-6.2 HGB 12.8 g/dL L 14.0-18.0 HCT 39.4 L 42.0-52.0 MCV 92.9 fL 80.0-94.0 MCH 30.2 pg 27.0-31.0 MCHC 32.5 g/dL 32.0-36.0 PLT 248 10*3/uL 150-450 MPV 10.2 fL 9.0-13.1 RDW 14.2 11.0-16.0 NRBC 0.0 0.0-0.0 December 03, 2024 01:45 PM [facility] AUTOMATED DIFF BLOOD Specimen Type: BLOOD No comment entered. Ordering Provider: DALIA COBB Report Released Date/Time: December 03, 2024 01:33 PM Reporting Lab: [address] [address] Performing Lab: [address] [address] A-LYMPH % 22.1 L 24.0-44.0 A-MONO % [...] and tobacco- related health factors from the [place] facility where the Encounter took place. Current Smoking Status This section includes the most current smoking, or tobacco-related health factor, from the [place] facility where the Encounter took place. Date/Time Current Smoking Status Comment Kelechi ity May 25, 2023 01:30 PM VA-TOBACCO FORMER USER [facility] Tobacco Use History This section includes a history of the smoking, or tobacco-related health factors, that were collected on or before the date of the Encounter. The data comes from the [place] facility where the Encounter took place. Date/Time Smoking Status/Tobacco Use Comment F acility May 25, 2023 01:30 PM VA-TOBACCO QUIT 15 YRS OR MORE [facility] Jun 18, 2022 01:30 PM VA-TOBACCO FORMER USER [facility] Jun 18, 2022 01:30 PM VA-TOBACCO QUIT 15 YRS OR MORE [facility] Jun 29, 2021 03:00 PM VA-TOBACCO FORMER USER [facility] Jun 29, 2021 03:00 PM VA-TOBACCO QUIT 15 YRS OR MORE [facility] Jul 28, 2020 09:30 AM VA-TOBACCO FORMER USER [facility] Jul 28, 2020 09:30 AM VA-TOBACCO QUIT 15 YRS OR MORE [facility] Jul 09, 2019 03:25 PM VA-TOBACCO NEVER USED [facility] Aug 24, 2018 02:06 PM VA-TOBACCO FORMER USER [facility] Aug 24, 2018 02:06 PM VA-TOBACCO QUIT 15 YRS OR MORE [facility] Sep 22, 2017 07:57 AM V9 LIFETIME NON-USER OF TOBACCO [facility] December 15, 2015 08:07 AM V9 LIFETIME NON-USER OF TOBACCO [facility] Jun 14, 2014 07:48 AM V9 LIFETIME NON-USER OF TOBACCO [facility] Jun 07, 2013 10:08 AM V9 LIFETIME NON-USER OF TOBACCO [facility] May 29, 2012 10:26 AM V9 LIFETIME NON-USER OF TOBACCO [facility] Nov 22, 2011 02:23 PM V9 LIFETIME NON-USER OF TOBACCO [facility] Oct 23, 2010 09:22 AM V9 QUIT TOBACCO >7 YEARS AGO [facility] May 30, 2007 03:08 PM V9 LIFETIME NON-USER OF TOBACCO [facility] Radiology Reports: +/- 30 days of [...] the Encounter. The data comes from all [facility] facilities. Date/Time Radiology Report Provider Source December 14, 2024 07:49 AM CARD. STRESS TEST W/TREADMILL/...: ROBBIE HUANG [id number] M Ex Date: DECEMBER 14, 2024@07:49 Req Phys: DALIA COBB Loc: VETO PACT WHITNEY 16-1 (Req'g Loc) Img Loc: NUCLEAR MEDICINE Service: Unknown [place] [id number] (Case [id number] COMPLETE)CARD. STRESS TEST W/TREADMILL/...(NM Detailed) CPT:67987 Reason for Study: SEE CLINICAL HISTORY Clinical History: Cardiology approval by: [facility] SERVICE CONNECTED? No Active Outpatient Medications [...] 14, 2024 Date Verified: DECEMBER 14, 2024 Dealer Development Manager E-Sig: Report: STUDY: GXT with vasodilator REPORT: [...] Staff: CHAO ORR APRN, Cardiology Verified by tobacco packer for CHAO ORR /CHAO GIRON-D [facility] December 14, 2024 07:49 AM [id number] REGADENOSON 0.1MG X4 (LEXISCAN): ROBBIE HUANG MICA [id number] -1940 M Exm Date: DECEMBER 14, 2024@07:49 Req Phys: DALIA COBB Loc: VETO PACT WHITNEY 16-1 (Req'g Loc) Img Loc: NUCLEAR MEDICINE Service: [place] [address] (Case [id number] COMPLETE)[id number] REGADENOSON 0.1MG X4 (STEPHON(NM Detailed) CPT:J2785 Reason for Study: SEE CLINICAL HISTORY Clinical History: Cardiology approval by: [facility] SERVICE CONNECTED? No Active Outpatient Medications [...] 14, 2024 Date Verified: DECEMBER 14, 2024 Dealer Development Manager E-Sig: Report: STUDY: GXT with vasodilator REPORT: [...] Code: NO ALERT REQUIRED Primary Interpreting Staff: CAHO ORR APRN, Cardiology Verified by tobacco packer for CHAO ORR /CHAO GIRON-ISMAEL [facility] December 14, 2024 07:49 AM CARD. STRESS TEST W/TREADMILL/...: ROBBIE HUANG [id number] -1940 M Exm Date: DECEMBER 14, 2024@07:49 Req Phys: DALIA COBB Abby Loc: VETO PACT WHITNEY 16-1 (Req'g Loc) Img Loc: NUCLEAR MEDICINE Service: [place] [address] (Case [id number] COMPLETE)CARD. STRESS TEST W/TREADMILL/...(NM Detailed) CPT:32536 Proc Modifiers : GXT Reason for Study: SEE CLINICAL HISTORY Clinical History: Cardiology approval by: Danial SERVICE CONNECTED? No Active Outpatient Medications (including [...] 14, 2024 Date Verified: DECEMBER 14, 2024 Dealer Development Manager E-Sig: Report: [place], [place] STUDY: Regadenoson (Lexiscan) SPECT Tc-99m myoview [...] performed with tomographic and three-dimensional reconstructions with [email or web address] NM/CT 640 system. Exercise: Patient exercised for [...] data sets in addition to the conventional wxo-mdizphotkvp-okpmvnrvp images. Both filtered back projection and iterative [...] ventricular cavity. 4. SPECT images: Attenuation-corrected and ypw-exiwhipilbx-uskyicpaz SPECT images were evaluated. SPECT images demonstrate [...] JEB SANTOS MD, CARDIOLOGY ATTENDING Verified by tobacco packer for JEB SANTOS MD /JEB MANCILLA-CDD [facility] December 14, 2024 07:49 AM 41135(D) MYOCARDIA L SPECT(MULTIPLE): ROBBIE HUANG [facility] [id number] -1940 M Exm Date: DECEMBER 14, 2024@07:49 Req Phys: DALIA COBB Pat Loc: VETO PACT WHITNEY 16-1 (Req'g Loc) Img Loc: NUCLEAR MEDICINE Service: [place] [address] (Case [id number] COMPLETE)12718(D) MYOCARDIAL SPECT(MULTIPL(NM Detailed) CPT:80740 Proc Modifiers : Lexiscan (Regadenoson) CPT Modifiers [...] YENNY GAMBOA Clinical History: Cardiology approval by: Petra SERVICE [...] 14, 2024 Date Verified: DECEMBER 14, 2024 Dealer Development Manager E-Sig: Report: [facility], [place], [place] STUDY: Regadenoson (Lexiscan) SPECT Tc-99m myoview [...] performed with tomographic and three-dimensional reconstructions with [email or web address] NM/CT 640 system. Exercise: Patient exercised for [...] data sets in addition to the conventional irk-annuoxircdk-tvhtvihrx images. Both filtered back projection and iterative [...] ventricular cavity. 4. SPECT images: Attenuation-corrected and rvy-iixpthdtdfy-wyzkkduqp SPECT images were evaluated. SPECT images demonstrate [...] JEB SANTOS MD, CARDIOLOGY ATTENDING Verified by tobacco packer for JEB SANTOS MD /JEB MANCILLA-CDD [facility] December 14, 2024 07:49 AM MYOVIEW(1): ROBBIE HUANG [id number] -1940 M Exm Date: DECEMBER 14, 2024@07:49 Req Phys: DALIA COBB Pat Loc: VETO PACT WHITNEY 16-1 (Req'g Loc) Img Loc: NUCLEAR MEDICINE Service: [place] [address] (Case [id number] COMPLETE)MYOVIEW(1) (NM Detailed) CPT:A9502 Reason for Study: [...] 14, 2024 Date Verified: DECEMBER 14, 2024 Dealer Development Manager E-Sig: Report: [place], [place] STUDY: Regadenoson (Lexiscan) SPECT Tc-99m myoview [...] performed with tomographic and three-dimensional reconstructions with [employer]/CT 640 system. Exercise: Patient exercised for 6 [...] data sets in addition to the conventional osk-dsiithipywp-apqsgrvvj images. Both filtered back projection and iterative [...] ventricular cavity. 4. SPECT images: Attenuation-corrected and znz-xwviextavgm-lxzuuvasz SPECT images were evaluated. SPECT images demonstrate [...] JEB SANTOS MD, CARDIOLOGY ATTENDING Verified by tobacco packer for JEB SANTOS MD /JEB MANCILLA-CDD [facility] December 14, 2024 07:49 AM MYOVIEW(2): REINAROBBIE MICA [id number] -1940 M Exm Date: DECEMBER 14, 2024@07:49 Req Phys: DALIA COBB Loc: VETO PACT WHITNEY 16-1 (Req'g Loc) Img Loc: NUCLEAR MEDICINE Service: [place] [address] (Case [id number] COMPLETE)MYOVIEW(2) (NM Detailed) CPT:A9502 Reason for Study: [...] 14, 2024 Date Verified: DECEMBER 14, 2024 Dealer Development Manager E-Sig: Report: [place], [place] STUDY: Regadenoson (Lexiscan) SPECT Tc-99m myoview [...] performed with tomographic and three-dimensional reconstructions with [email or web address] NM/CT 640 system. Exercise: Patient exercised for [...] data sets in addition to the conventional vqh-wmvauleqawy-buemrwfgq images. Both filtered back projection and iterative [...] ventricular cavity. 4. SPECT images: Attenuation-corrected and wcl-lgulvttphjs-sxpemuvxb SPECT images were evaluated. SPECT images demonstrate [...] JEB SANTOS MD, CARDIOLOGY ATTENDING Verified by tobacco packer for JEB SANTOS MD /JEB MANCILLA-D [facility] December 14, 2024 07:49 AM [id number] REGADENOSON 0.1MG X1 (LEXISCAN): ROBBIE HUANG [id number] [facility]-1940 M Ex Date: DECEMBER 14, 2024@07:49 Req Phys: DALIA COBB Loc: VETO PACT WHITNEY 16-1 (Req'g Loc) Img Loc: NUCLEAR MEDICINE Service: [place] [address] (Case [id number] COMPLETE)[id number] REGADENOSON 0.1MG X1 (STEPHON(NM Detailed) CPT:J2785 Reason for Study: SEE CLINICAL HISTORY Clinical History: Cardiology approval by: [facility] SERVICE CONNECTED? No Active Outpatient Medications [...] 14, 2024 Date Verified: DECEMBER 14, 2024 Dealer Development Manager E-Sig: Report: [facility], [place], [place] STUDY: Regadenoson (Lexiscan) SPECT Tc-99m myoview [...] performed with tomographic and three-dimensional reconstructions with [email or web address] NM/CT 640 system. Exercise: Patient exercised for [...] data sets in addition to the conventional zll-xkvxyzygxqg-qdiuofnkc images. Both filtered back projection and iterative [...] ventricular cavity. 4. SPECT images: Attenuation-corrected and vga-flzwfuyfqpa-abjiyddlc SPECT images were evaluated. SPECT images demonstrate [...] JEB SANTOS MD, CARDIOLOGY ATTENDING Verified by tobacco packer for JEB SANTOS MD /JEB MANCILLA-CDD [facility] December 14, 2024 07:49 AM [id number] REGADENOSON 0.1MG X2 (LEXISCAN): ROBBIE HUANG [id number] -1940 M Exm Date: DECEMBER 14, 2024@07:49 Req Phys: DALIA COBB Pat Loc: VETO PACT WHITNEY 16-1 (Req'g Loc) Img Loc: NUCLEAR MEDICINE Service: [place] [address] (Case [id number] COMPLETE)[id number] REGADENOSON 0.1MG X2 (STEPHON(NM Detailed) CPT:J2785 [...] 14, 2024 Date Verified: DECEMBER 14, 2024 Dealer Development Manager E-Sig: Report: [place], [place] STUDY: Regadenoson (Lexiscan) SPECT Tc-99m myoview [...] performed with tomographic and three-dimensional reconstructions with [employer]/CT 640 system. Exercise: Patient exercised for 6 [...] data sets in addition to the conventional ixa-azxqxluovoe-cepzdpurq images. Both filtered back projection and iterative [...] ventricular cavity. 4. SPECT images: Attenuation-corrected and iii-gficrufjyqw-yiwfinfpq SPECT images were evaluated. SPECT images demonstrate [...] JEB SANTOS MD, CARDIOLOGY ATTENDING Verified by tobacco packer for JEB SANTOS MD /JEB MANCILLA-D [facility] December 14, 2024 07:49 AM TC-99M X1 FROM NON -HEU SOURCE: ROBBIE HUANG [id number] -1940 M Ex Date: DECEMBER 14, 2024@07:49 Req Phys: DALIA COBB [facility]Req[facility] Loc) Img Loc: NUCLEAR MEDICINE Service: [place] [address] (Case [id number] COMPLETE)TC-99M X1 FROM NON-HEU SOURCE (NM Detailed) [...] 14, 2024 Date Verified: DECEMBER 14, 2024 Dealer Development Manager E-Sig: Report: [place] STUDY: Regadenoson (Lexiscan) SPECT Tc-99m myoview [...] performed with tomographic and three-dimensional reconstructions with [email or web address] NM/CT 640 system. Exercise: Patient exercised for [...] data sets in addition to the conventional ost-yjbfgszybti-vklyvnzyp images. Both filtered back projection and iterative [...] ventricular cavity. 4. SPECT images: Attenuation-corrected and chw-tvowzuptbvi-jnmxquwts SPECT images were evaluated. SPECT images demonstrate [...] JEB SANTOS MD, CARDIOLOGY ATTENDING Verified by tobacco packer for JEB SANTOS MD /JEB MANCILLA-CDD [facility] December 14, 2024 07:49 AM [id number] REGADENOSON 0.1MG X3 (LEXISCAN): ROBBIE HUANG [id number] -1940 M [facility] Date: DECEMBER 14, 2024@07:49 Req Phys: DALIA COBB [facility] Loc) g Loc: NUCLEAR MEDICINE Service: [place] [address] (Case [id number] COMPLETE)[id number] REGADENOSON 0.1MG X3 (STEPHON(NM Detailed) CPT:J2785 Reason for Study: SEE CLINICAL HISTORY Clinical History: [facility] No Active Outpatient Medications [...] 14, 2024 Date Verified: DECEMBER 14, 2024 Dealer Development Manager E-Sig: Report: [place] STUDY: Regadenoson (Lexiscan) SPECT Tc-99m myoview [...] performed with tomographic and three-dimensional reconstructions with [employer]/CT 640 system. Exercise: Patient exercised for 6 [...] data sets in addition to the conventional bor-eisrjiqpcue-pclycnzsi images. Both filtered back projection and iterative [...] ventricular cavity. 4. SPECT images: Attenuation-corrected and sok-hnkavbjahsf-nirlgvirr SPECT images were evaluated. SPECT images demonstrate [...] JEB SANTOS MD, CARDIOLOGY ATTENDING Verified by tobacco packer for JEB SANTOS MD /JEB MANCILLA-CDD [facility] December 14, 2024 07:49 AM TC-99M X2 FROM NON -HEU SOURCE: ROBBIE HUANG [id number] -1940 M Exm Date: DECEMBER 14, 2024@07:49 Req Phys: DALIA COBB Pat Loc: VETO PACT WHITNEY 16-1 (Req'g Loc) Img Loc: NUCLEAR MEDICINE Service: [place] [address] (Case [id number] COMPLETE)TC-99M X2 FROM NON-HEU SOURCE (NM Detailed) [...] 14, 2024 Date Verified: DECEMBER 14, 2024 Dealer Development Manager E-Sig: Report: [place] STUDY: Regadenoson (Lexiscan) SPECT Tc-99m myoview [...] performed with tomographic and three-dimensional reconstructions with [email or web address] NM/CT 640 system. Exercise: Patient exercised for [...] data sets in addition to the conventional zrl-qopfmpaqjbw-naivlpapn images. Both filtered back projection and iterative [...] ventricular cavity. 4. SPECT images: Attenuation-corrected and jrs-lhcrncuohlz-rcqzjxpsn SPECT images were evaluated. SPECT images demonstrate [...] JEB SANTOS MD, CARDIOLOGY ATTENDING Verified by tobacco packer for JEB SANTOS MD /JEB MANCILLA-ISMAEL [facility]
--- OUTSIDE RECORDS SUMMARY | 2024-12-14 09:11 | XMS_ITS | Encounter Summary ---
Author Name [facility] Address [address] [place] [address] Care Team Providers Care Appliance Parts Counter Clerk Name Role Phone FARHAT BRIGGS Primary Care Provider Unavailabl e Insurance Providers: [...] Asif's Name Patient's Relationship to Policy Asif [facility] [place] MEDIC[place] SECONDARY (NO B EXC) TI AUTOM OTIVE - RETI Jul 25, 2018 [id number] MALUTI PERKINS SPOUSE MEDICARE (WNR) MEDICARE (M) PART B Jan 22, 2007 PART B [id number] MALUJUSTYNA TINAJERO PATIENT MEDICARE (WNR) MEDICARE (M) PART A Sep 22, 2005 PART A [id number] REINAJUSTYNA PATIENT FOR LIFE TRICA RE FOR LIFE Jul 25, 2017 FOR LIFE [id number] REINA ROBBIE PATIENT Selected Encounter This section includes the information on record at NE for the Encounter. Date/Time Encounter Type Encounter Description Reason Pro vider Source December 14, 2024 01:11 PM Outpatient Encounter PRIMARY CARE/MEDICINE IHE Encounter Template Text not used by NE Plan of Treatment: Future Appointments (+ 6 months) and Future Tests (+/- 45 days) The Plan of Treatment section includes future care activities for the patient from all [facility] This section includes future appointments and future orders which are active, pending or scheduled. Future Appointments This section includes appointments that were scheduled to occur 6 months from the date of the Encounter, up to a maximum of 20 appointments. The data comes from all [place] treatment facilities. Appointment Date/Time Appointment Type Appointme nt Facility Name Jan 04, 2025 01:30 PM AMBULATORY - SURG[facility] Jan 31, 2025 03:00 PM AMBULATORY - MEDICINE [facility] Feb 05, 2025 01:00 PM AMBULATORY - [facility] Feb 05, 2025 02:00 PM [facility] Active, Pending, and Scheduled Orders This section includes a listing of several types of active, pending, and scheduled orders, including clinic medications orders, diagnostic test orders, procedure orders and consult orders; where the start date of the order is 45 days before the date of the Encounter or 45 days after the date of theEncounter. The data comes from all [facility]. Test Date/Time Test Type Test Details Facility Name Jan 04, 2025 12:00 AM Imaging - Vascular Lab Order SEGMENTAL PRESSURES, LOWER EXT([place]) [facility] Jan 04, 2025 12:00 AM Imaging - Vascular Lab Order VENOUS DUPLEX LOWER EXT [facility] Lab Results: +/- 30 days of the encounter This section includes the Chemistry and Hematology Lab Results on record with NE for the patient. Radiology Reports and Pathology Reports are provided separately, in subsequent sections. Lab Results This section contains the Chemistry/Hematology Results that were resulted 30 days before or 30 daysafter the date of the Encounter. Date/Time Source Result Type Result - Unit Interpretation Reference Range Specimen Type Comment December 03, 2024 02:03 PM [facility] OWN PROTEIN ELECTROPHORESIS URINE Specimen Type: URINE No comment entered. Ordering Provider: FARHAT BRIGGS Report Released Date/Time: December 03, 2024 01:24 PM Reporting Lab: [address] [address] Performing Lab: [facility] [address] [facility] [address] TOTAL PROTEIN 17.0 mg/dL Not Estab. .ALBUMIN ELEC 29.4 .ALPHA 1 ELEC 5.2 .ALPHA 2 ELEC 21.5 .BETA ELEC 19.7 .GAMMA ELEC 24.2 .M-SPIKE Not Observed Not Observed December 03, 2024 02:03 PM [facility] TOTAL PROTEIN URINE Specimen Type: URINE No comment entered. Ordering Provider: FARHAT BRIGGS Report Released Date/Time: December 03, 2024 01:24 PM Reporting Lab: [address] [address] Performing Lab: [address] [address] TOTAL PROTEIN 16 mg/dL H 0-14 December 03, 2024 02:03 PM [facility] CREATININE URINE Specimen Type: URINE No comment entered. Ordering Provider: FARHAT BRIGGS Report Released Date/Time: December 03, 2024 01:24 PM Reporting Lab: [address] [address] Performing Lab: [address] [address] CREATININE 63.6 mg/dL December 03, 2024 02:03 PM [facility] URINALYSIS URINE Specimen Type: URINE Comment: Microscopic not indicated Ordering Provider: FARHAT BRIGGS Report Released Date/Time: December 03, 2024 01:29 PM Reporting Lab: [address] [address] Performing Lab: [address] [address] URINE COLOR Light Yellow Colorless-Yello w APPEARANCE [...] Ab reported incorrectly as Atypical Speckled by [[id number]]. Changed to 1:320 Atypical Speckled on December 06, 2024@12:59 by [[id number]]. Ordering Provider: FARHAT BRIGGS Report Released Date/Time: December 03, 2024 01:38 PM Reporting Lab: [address] [address] Performing Lab: [address] [address] ANTI-NUCLEAR Ab 1:320 Atypical Speckled <1:80 December 03, 2024 01:45 PM [facility] ROSALIE (SERUM) SERUM Specimen Type: SERUM Comment: BNP results less than or equal to 100 pg/ml are client representative of normal values in patients without CHF. BNP results greater than 100 pg/ml are considered abnormal and suggestive of CHF. Higher BNP concentrations in the first 72 hours after Acute Coronary Syndrome are associated with an increased risk of , myocardial infarction and CHF. Ordering Provider: FARHAT BRIGGS Report Released Date/Time: December 03, 2024 01:24 PM Reporting Lab: [address] [address] Performing Lab: [address] [address] .ALBUMIN ELEC 3.6 g/dL 2.9-4.4 .ALPHA 1 [...] INTERPRETATION Comment December 03, 2024 01:45 PM [facility] JORDAN SCREEN SERUM Specimen Type: SERUM No comment entered. Ordering Provider: FARHAT BRIGGS Report Released Date/Time: December 03, 2024 01:38 PM Reporting Lab: [address] [address] Performing Lab: [address] [address] JORDAN SCREEN Negative Negative December 03, 2024 01:45 PM [facility] BNP (Agent Partner) PLASMA Specimen Type: PLASMA Comment: BNP results less than or equal to 100 pg/ml are client representative of normal values in patients without CHF. BNP results greater than 100 pg/ml are considered abnormal and suggestive of CHF. Higher BNP concentrations in the first 72 hours after Acute Coronary Syndrome are associated with an increased risk of , myocardial infarction and CHF. Ordering Provider: FARHAT BRIGGS Report Released Date/Time: December 03, 2024 01:24 PM Reporting Lab: [address] [address] Performing Lab: [address] [address] BNP (MCCALL) 225 pg/mL H 0-100 December 03, 2024 01:45 PM [facility] CK TOTAL PLASMA Specimen Type: [...] December 03, 2024 01:33 PM Reporting Lab: [address] [address] Performing Lab: [address] [address] CK TOTAL 76 U/L 30-200 December 03, 2024 01:45 [facility] Specimen Type: [...] December 03, 2024 01:24 PM Reporting Lab: [address] [address] Performing Lab: [address] [address] CREATININE 2.05 mg/dL H 0.72-1.25 UREA NITROGEN [...] (CKD-EPI) 31 December 03, 2024 01:45 PM [facility] CBC/PLT BLOOD Specimen Type: BLOOD No comment entered. Ordering Provider: FARHAT BRIGGS Report Released Date/Time: December 03, 2024 01:33 PM Reporting Lab: [address] [address] Performing Lab: [place] [phone] WBC 5.6 10*3/uL 5.0-10.0 RBC 4.24 10*6/uL [...] December 03, 2024 01:33 PM Reporting Lab: [address] [address] Performing Lab: [address] [address] A-LYMPH % 22.1 L 24.0-44.0 A-MONO % [...] and tobacco- related health factors from the NE facility where the Encounter took place. Current Smoking Status This section includes the most current smoking, or tobacco-related health factor, from the NE facility where the Encounter took place. Date/Time Current Smoking Status Comment Kelechi ity May 25, 2023 01:30 PM VA-TOBACCO FORMER USER [facility] Tobacco Use History This section includes a history of the smoking, or tobacco-related health factors, that were collected on or before the date of the Encounter. The data comes from the NE facility where the Encounter took place. Date/Time [...] the Encounter. The data comes from all [facility] facilities. Date/Time Radiology Report Provider Source December 14, 2024 07:49 AM CARD. STRESS TEST W/TREADMILL/...: ROBBIE HUANG [id number] -1940 M Ex Date: DECEMBER 14, 2024@07:49 Req Phys: FARHAT BRIGGS Loc: VETO PACT WHITNEY 16-1 (Req'g Loc) Img Loc: NUCLEAR MEDICINE Service: Unknown [place] [id number] (Case [id number] COMPLETE)CARD. STRESS TEST W/TREADMILL/...(NM Detailed) CPT:81433 Reason for Study: SEE CLINICAL HISTORY Clinical History: Cardiology approval by: [facility] SERVICE CONNECTED? No Active Outpatient Medications [...] 14, 2024 Date Verified: DECEMBER 14, 2024 Ceramics Test Engineer E-Sig: Report: STUDY: GXT with vasodilator [...] Staff: CHAO ORR APRN, Cardiology Verified by executive director contract shop for CHAO ORR /CHAO GIRON-D [facility] December 14, 2024 07:49 AM [id number] REGADENOSON 0.1MG X4 (LEXISCAN): ROBBIE HUANG MICA [id number] -1940 M Exm Date: DECEMBER 14, 2024@07:49 Req Phys: FARHAT BRIGGS Loc: VETO PACT WHITNEY 16-1 (Req'g Loc) Img Loc: NUCLEAR MEDICINE Service: [place] [address] (Case [id number] COMPLETE)[id number] REGADENOSON 0.1MG X4 (STEPHON(NM Detailed) CPT:J2785 Reason for Study: SEE CLINICAL HISTORY Clinical History: Cardiology approval by: [facility] SERVICE CONNECTED? No Active Outpatient Medications [...] 14, 2024 Date Verified: DECEMBER 14, 2024 Ceramics Test Engineer E-Sig: Report: STUDY: GXT with vasodilator [...] Staff: CHAO ORR APRN, Cardiology Verified by executive director contract shop for CHAO ORR /CHAO GIRON-ISMAEL [facility] December 14, 2024 07:49 AM CARD. STRESS TEST W/TREADMILL/...: ROBBIE HUANG [id number] -1940 M Exm Date: DECEMBER 14, 2024@07:49 Req Phys: FARHAT BRIGGS Abby Loc: VETO PACT WHITNEY 16-1 (Req'g Loc) Img Loc: NUCLEAR MEDICINE Service: [place] [address] (Case [id number] COMPLETE)CARD. STRESS TEST W/TREADMILL/...(NM Detailed) CPT:70245 Proc Modifiers : GXT Reason for Study: [...] 14, 2024 Date Verified: DECEMBER 14, 2024 Ceramics Test Engineer E-Sig: Report: [place], [place] STUDY: Regadenoson (Lexiscan) SPECT Tc-99m myoview [...] performed with tomographic and three-dimensional reconstructions with Attensa NM/CT 640 system. Exercise: Patient exercised for [...] data sets in addition to the conventional brh-lumasdcrfev-ozmjarihd images. Both filtered back projection and iterative [...] ventricular cavity. 4. SPECT images: Attenuation-corrected and tig-lojwtdvzjcn-yvqtaodta SPECT images were evaluated. SPECT images demonstrate [...] JEB SANTOS MD, CARDIOLOGY ATTENDING Verified by executive director contract shop for JEB SANTOS MD /JEB MANCILLA-CDD [facility] December 14, 2024 07:49 AM 54619(D) MYOCARDIA L SPECT(MULTIPLE): ROBBIE HUANG [facility] [id number] -1940 M Exm Date: DECEMBER 14, 2024@07:49 Req Phys: FARHAT BRIGGS Pat Loc: VETO PACT WHITNEY 16-1 (Req'g Loc) Img Loc: NUCLEAR MEDICINE Service: [place] [address] (Case [id number] COMPLETE)05414(D) MYOCARDIAL SPECT(MULTIPL(NM Detailed) CPT:46251 Proc Modifiers : Lexiscan (Regadenoson) CPT Modifiers [...] 14, 2024 Date Verified: DECEMBER 14, 2024 Ceramics Test Engineer E-Sig: Report: [facility], [place], [place] STUDY: Regadenoson (Lexiscan) SPECT Tc-99m myoview [...] performed with tomographic and three-dimensional reconstructions with Attensa NM/CT 640 system. Exercise: Patient exercised for [...] data sets in addition to the conventional kwu-wheugmbilsq-lcaarzcyj images. Both filtered back projection and iterative [...] ventricular cavity. 4. SPECT images: Attenuation-corrected and wha-zbbgmmitrqt-hwkcsldyg SPECT images were evaluated. SPECT images demonstrate [...] JEB SANTOS MD, CARDIOLOGY ATTENDING Verified by executive director contract shop for JEB SANTOS MD /JEB MANCILLA-CDD [facility] December 14, 2024 07:49 AM MYOVIEW(1): ROBBIE HUANG [id number] -1940 M Exm Date: DECEMBER 14, 2024@07:49 Req Phys: FARHAT BRIGGS Pat Loc: VETO PACT WHITNEY 16-1 (Req'g Loc) Img Loc: NUCLEAR MEDICINE Service: [place] [address] (Case [id number] COMPLETE)MYOVIEW(1) (NM Detailed) CPT:A9502 Reason for Study: [...] 14, 2024 Date Verified: DECEMBER 14, 2024 Ceramics Test Engineer E-Sig: Report: [place] STUDY: Regadenoson (Lexiscan) SPECT Tc-99m myoview [...] performed with tomographic and three-dimensional reconstructions with MotorwayBuddy/CT 640 system. Exercise: Patient exercised for 6 [...] data sets in addition to the conventional uir-acouqxrvzat-mfcgousci images. Both filtered back projection and iterative [...] ventricular cavity. 4. SPECT images: Attenuation-corrected and xan-qzywovkpicv-mvbeidhjj SPECT images were evaluated. SPECT images demonstrate [...] JEB SANTOS MD, CARDIOLOGY ATTENDING Verified by executive director contract shop for JEB SANTOS MD /JEB MANCILLA-CDD [facility] December 14, 2024 07:49 AM MYOVIEW(2): REINAROBBIE MICA [id number] -1940 M Exm Date: DECEMBER 14, 2024@07:49 Req Phys: FARHAT BRIGGS Loc: VETO PACT WHITNEY 16-1 (Req'g Loc) Img Loc: NUCLEAR MEDICINE Service: [place] [address] (Case [id number] COMPLETE)MYOVIEW(2) (NM Detailed) CPT:A9502 Reason for Study: [...] 14, 2024 Date Verified: DECEMBER 14, 2024 Ceramics Test Engineer E-Sig: Report: [place] STUDY: Regadenoson (Lexiscan) SPECT Tc-99m myoview [...] performed with tomographic and three-dimensional reconstructions with Attensa NM/CT 640 system. Exercise: Patient exercised for [...] data sets in addition to the conventional aja-yngxwhxarfg-ywowwanfp images. Both filtered back projection and iterative [...] ventricular cavity. 4. SPECT images: Attenuation-corrected and enl-vyuckaalcxn-fsnigncri SPECT images were evaluated. SPECT images demonstrate [...] JEB SANTOS MD, CARDIOLOGY ATTENDING Verified by executive director contract shop for JEB SANTOS MD /JEB MANCILLA-D [facility] December 14, 2024 07:49 AM [id number] REGADENOSON 0.1MG X1 (LEXISCAN): ROBBIE HUANG [id number] [facility]-1940 M Ex Date: DECEMBER 14, 2024@07:49 Req Phys: FARHAT BRIGGS Loc: VETO PACT WHITNEY 16-1 (Req'g Loc) Img Loc: NUCLEAR MEDICINE Service: [place] [address] (Case [id number] COMPLETE)[id number] REGADENOSON 0.1MG X1 (STEPHON(NM Detailed) CPT:J2785 Reason for Study: SEE CLINICAL HISTORY Clinical History: Cardiology approval by: [facility] SERVICE CONNECTED? No Active Outpatient Medications [...] 14, 2024 Date Verified: DECEMBER 14, 2024 Ceramics Test Engineer E-Sig: Report: [facility], [place], [place] STUDY: Regadenoson (Lexiscan) SPECT Tc-99m myoview [...] performed with tomographic and three-dimensional reconstructions with Attensa NM/CT 640 system. Exercise: Patient exercised for [...] data sets in addition to the conventional ubo-pzwlgdcnhzk-oaadwnstf images. Both filtered back projection and iterative [...] ventricular cavity. 4. SPECT images: Attenuation-corrected and ukx-rjhuamsyhhm-xlhyrdied SPECT images were evaluated. SPECT images demonstrate [...] JEB SANTOS MD, CARDIOLOGY ATTENDING Verified by executive director contract shop for JEB SANTOS MD /JEB MANCILLA-CDD [facility] December 14, 2024 07:49 AM TC-99M X1 FROM NON -HEU SOURCE: ROBBIE HUANG [id number] -1940 M Exm Date: DECEMBER 14, 2024@07:49 Req Phys: FARHAT BRIGGS Pat Loc: VETO PACT WHITNEY 16-1 (Req'g Loc) Img Loc: NUCLEAR MEDICINE Service: Unknown [place] [id number] (Case [id number] COMPLETE)TC-99M X1 FROM NON-HEU SOURCE (NM Detailed) [...] 14, 2024 Date Verified: DECEMBER 14, 2024 Ceramics Test Engineer E-Sig: Report: [place] STUDY: Regadenoson (Lexiscan) SPECT Tc-99m myoview [...] performed with tomographic and three-dimensional reconstructions with MotorwayBuddy/CT 640 system. Exercise: Patient exercised for 6 [...] data sets in addition to the conventional kgu-ewcmexoytpb-kspdrhyvj images. Both filtered back projection and iterative [...] ventricular cavity. 4. SPECT images: Attenuation-corrected and bpk-yidblrfbmwv-xmmqefxqj SPECT images were evaluated. SPECT images demonstrate [...] JEB SANTOS MD, CARDIOLOGY ATTENDING Verified by executive director contract shop for JEB SANTOS MD /JEB MANCILLA-D [facility] December 14, 2024 07:49 AM [id number] REGADENOSON 0.1MG X2 (LEXISCAN): ROBBIE HUANG [id number] -1940 M Ex Date: DECEMBER 14, 2024@07:49 Req Phys: FARHAT BRIGGS Pat Loc: VETO PACT WHITNEY 16-1 (Req'g Loc) Img Loc: NUCLEAR MEDICINE Service: [place] [address] (Case [id number] COMPLETE)[id number] REGADENOSON 0.1MG X2 (STEPHON(NM Detailed) CPT:J2785 [...] 14, 2024 Date Verified: DECEMBER 14, 2024 Ceramics Test Engineer E-Sig: Report: [place] STUDY: Regadenoson (Lexiscan) SPECT Tc-99m myoview [...] performed with tomographic and three-dimensional reconstructions with Attensa NM/CT 640 system. Exercise: Patient exercised for [...] data sets in addition to the conventional nqb-hlhlheehbvj-dsbgkpusl images. Both filtered back projection and iterative [...] ventricular cavity. 4. SPECT images: Attenuation-corrected and ssv-efrdixxvmvo-hojiknqjx SPECT images were evaluated. SPECT images demonstrate [...] JEB SANTOS MD, CARDIOLOGY ATTENDING Verified by executive director contract shop for JEB SANTOS MD /JEB MANCILLA-CDD [facility] December 14, 2024 07:49 AM [id number] REGADENOSON 0.1MG X3 (LEXISCAN): ROBBIE HUANG [id number] -1940 M [facility] Date: DECEMBER 14, 2024@07:49 Req Phys: FARHAT BRIGGS [facility] g Loc: NUCLEAR MEDICINE Service: [place] [address] (Case [id number] COMPLETE)[id number] REGADENOSON 0.1MG X3 (STEPHON(NM Detailed) CPT:J2785 Reason for Study: SEE CLINICAL HISTORY Clinical History: Cardiology approval by: [facility] SERVICE CONNECTED? No Active Outpatient Medications (including [...] 14, 2024 Date Verified: DECEMBER 14, 2024 Ceramics Test Engineer E-Sig: Report: [place] STUDY: Regadenoson (Lexiscan) SPECT Tc-99m myoview [...] performed with tomographic and three-dimensional reconstructions with MotorwayBuddy/CT 640 system. Exercise: Patient exercised for 6 [...] data sets in addition to the conventional wpc-tgksupdxasv-efjfpjngt images. Both filtered back projection and iterative [...] ventricular cavity. 4. SPECT images: Attenuation-corrected and exg-gsnsdzjkcsu-fwhknajaq SPECT images were evaluated. SPECT images demonstrate [...] JEB SANTOS MD, CARDIOLOGY ATTENDING Verified by executive director contract shop for JEB SANTOS MD /JEB MANCILLA-CDD [facility] December 14, 2024 07:49 AM TC-99M X2 FROM NON -HEU SOURCE: ROBBIE HUANG [id number] -1940 M Exm Date: DECEMBER 14, 2024@07:49 Req Phys: FARHAT BRIGGS Pat Loc: VETO PACT WHITNEY 16-1 (Req'g Loc) Img Loc: NUCLEAR MEDICINE Service: [place] [address] (Case [id number] COMPLETE)TC-99M X2 FROM NON-HEU SOURCE (NM Detailed) [...] 14, 2024 Date Verified: DECEMBER 14, 2024 Ceramics Test Engineer E-Sig: Report: [place] STUDY: Regadenoson (Lexiscan) SPECT Tc-99m myoview [...] performed with tomographic and three-dimensional reconstructions with Attensa NM/CT 640 system. Exercise: Patient exercised for [...] data sets in addition to the conventional tsk-yoexfdexjpd-elppqgshq images. Both filtered back projection and iterative [...] ventricular cavity. 4. SPECT images: Attenuation-corrected and ilm-zxziwackera-utduialfe SPECT images were evaluated. SPECT images demonstrate [...] JEB SANTOS MD, CARDIOLOGY ATTENDING Verified by executive director contract shop for JEB SANTOS MD /JEB MANCILLA-ISMAEL [facility] Encounter Notes: All associated encounter notes This section contains the clinical notes associated to the Encounter. Date/Time Encounter Note(s) Provider Source December 14, 2024 01:11 PM PRIMARY CARE NOTE: LOCAL TITLE: Pc Chart Review Note STANDARD TITLE: PRIMARY CARE NOTE DATE OF NOTE: DECEMBER 14, 2024@13:11 ENTRY DATE: DECEMBER 14, 2024@13:11:49 AUTHOR: FARHAT BRIGGS COSIGNER: URGENCY: STATUS: COMPLETED Impression: 1. This is an abnormal nuclear [...] known coronary arterial calcification/stents. Bilateral hilar calcifications. Cardiac eval without any significant changes. Has PFTs in January and pulm f/u. If breathing still not back to baseline, would let pulm know in case needing to move up appt. If BLE edema ongoing, would recommend venous duplex and ABIs so can start compression hose if venous insufficiency /es/ Farhat Briggs MD Primary Care Attending Signed: 12/14/2024 13:14 Receipt Acknowledged By: 12/14/2024 13:39 /jack/ JAIME VICENTE, RN PC TAX ASSISTANTSENIOR BUSINESS PROCESS ANALYSTFARHAT BRIGGS [facility]
--- OUTSIDE RECORDS SUMMARY | 2024-12-20 06:33 | XMS_ITS | Encounter Summary ---
Author Name [facility] [facility] [place] Address [address] [place] [address] Care Team Providers Care Plum Packer Name Role Phone DALIA COBB Primary Care [...] Asif's Name Patient's Relationship to Policy Asif [facility] [place] BLUECARD MEDICARE SECONDARY (NO B EXC) TI AUTOM OTIVE - RETI Jul 25, 2018 [id number] MALUTI PERKINS SPOUSE MEDICARE (WNR) MEDICARE (M) PART B Jan 22, 2007 PART B [id number] MALUJUSTYNA TINAJEROE PATIENT MEDICARE (WNR) MEDICARE (M) PART A Sep 22, 2005 PART A [id number] MALUJUSTYNA TINAJERO PATIENT FOR LIFE TRICA RE FOR LIFE Jul 25, 2017 FORMERLY [facility] LIFE [id number] ROBBIE HUANG JR PATIENT Selected Encounter This section includes the information on record at [place] for the Encounter. 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 Date/Time Primary/Secondary Diagnosis Diagnosis Name Provider Source December 20, 2024 10:38 AM PRIMARY Hypertensive chronic kidney disease w stg 1-4/unsp [facility] SRINIVASAN Coker [facility] Plan of Treatment: Future Appointments (+ 6 months) and Future Tests (+/- 45 days) The Plan of Treatment section includes future care activities for the patient from all [place] [facility]. This section includes future appointments and future orders which are active, pending or scheduled. Future Appointments This section includes appointments that were scheduled to occur 6 months from the date of the Encounter, up to a maximum of 20 appointments. The data comes from all [facility]. Appointment Date/Time Appointment Type Appointme nt Facility Name Jan 04, 2025 01:30 PM AMBULATORY - SURGERY [facility] Jan 31, 2025 03:00 PM AMBULATORY - MEDICINE [facility] Feb 05, 2025 01:00 PM AMBULATORY - MEDICINE [facility] Feb 05, 2025 02:00 PM AMBULATORY [facility] MEDICINE [facility] Active, Pending, and Scheduled Orders This section includes a listing of several types of active, pending, and scheduled orders, including clinic medications orders, diagnostic test orders, procedure orders and consult orders; where the start date of the order is 45 days before the date of the Encounter or 45 days after the date of theEncounter. The data comes from all [facility]. Test Date/Time Test Type Test Details Facility Name Jan 04, 2025 12:00 AM Imaging - Vascular Lab Order SEGMENTAL PRESSURES, LOWER EXT([place]) UNILAT [facility] Jan 04, 2025 12:00 AM Imaging - Vascular Lab Order VENOUS DUPLEX LOWER EXT BILAT [facility] Feb 01, 2025 12:00 AM Laboratory - Chemi stry Order PANEL 4 [id number] SP ONCE [facility] Feb 01, 2025 12:00 AM Laboratory - Chemi stry Order CREATININE URINE SP ONCE [facility] Feb 01, 2025 12:00 AM Laboratory - Chemi stry Order TOTAL PROTEIN URINE SP ONCE [facility] Feb 01, 2025 12:00 AM Laboratory - Chemi stry Order URINALYSIS URINE PATIENT WAITING SP ONCE [facility] Feb 01, 2025 12:00 AM Laboratory - Chemi stry Order 25-OH VITAMIN D [id number] SP ONCE [facility] Feb 01, 2025 12:00 AM Laboratory - Chemi stry Order PTH INTACT (MCCALL) [id number] SP ONCE [facility] Feb 01, 2025 12:00 AM Laboratory - Chemi stry Order CBC/PLT [id number] BLOOD SP ONCE [facility] Lab Results: +/- 30 days of the encounter This section includes the Chemistry and Hematology Lab Results on record with [facility] for the [facility]. Radiology Reports and Pathology Reports are provided separately, in subsequent sections. Lab Results This section contains the Chemistry/Hematology Results that were resulted 30 days before or 30 daysafter the date of the Encounter. Date/Time Source Result Type Result - Unit Interpretation Reference Range Specimen Type Comment December 03, 2024 02:03 PM [facility] OWN PROTEIN ELECTROPHORESIS URINE Specimen Type: URINE No comment entered. Ordering Provider: DALIA COBB Report Released Date/Time: December 03, 2024 01:24 PM Reporting Lab: [facility] [address] [facility] [address] Performing Lab: [facility] [address] [facility] [facility] [address] TOTAL PROTEIN 17.0 mg/dL Not Estab. .ALBUMIN ELEC 29.4 .ALPHA 1 ELEC 5.2 .ALPHA 2 ELEC 21.5 .BETA ELEC 19.7 .GAMMA ELEC 24.2 .M-SPIKE Not Observed Not Observed December 03, 2024 02:03 PM [facility] TOTAL PROTEIN URINE Specimen Type: URINE No comment entered. Ordering Provider: DALIA COBB Report Released Date/Time: December 03, 2024 01:24 PM Reporting Lab: [address] [address] Performing Lab: [address] [address] TOTAL PROTEIN 16 mg/dL H 0-14 December 03, 2024 02:03 PM [facility] CREATININE URINE Specimen Type: URINE No comment entered. Ordering Provider: DALIA COBB Report Released Date/Time: December 03, 2024 01:24 PM Reporting Lab: [address] [address] Performing Lab: [place] [phone] CREATININE 63.6 mg/dL December 03, 2024 02:03 PM [facility] URINALYSIS URINE Specimen Type: URINE Comment: Microscopic not indicated Ordering Provider: DALIA COBB Report Released Date/Time: December 03, 2024 01:29 PM Reporting Lab: [address] [address] Performing Lab: [address] [address] URINE COLOR Light Yellow Colorless-Yello w APPEARANCE Clear Clear UROBILINOGEN Normal mg/dL Normal URINE BLOOD Negative Negative URINE BILIRUBIN Negative Negative URINE KETONES Negative mg/dL Negative URINE PROTEIN Negative mg/dL Negative-Tr rachell URINE PH 5.0 4.5-8.0 URINE NITRITE Negative Negative URINE LEUKOCYTE EST Negative Negative SPECIFIC GRAVITY 1.014 1.005-1.030 URINE GLUCOSE >1000 mg/dL H Negative December 03, 2024 01:45 PM [facility] ANTI-NUCLEAR Ab SERUM Specimen Type: SERUM Comment: Atypical speckled resembling DFS (Dense-Fine Speckled. The DFS pattern has a low prevalence in systemic autoimmune rheumatic diseases. The clinical association remains unclear. Due to its close resemblance to other patterns of clinical relevance, (i.e. Homogeneous, speckled, and mixed patterns) follow-up testing may be recommended. ANTI-NUCLEAR Ab reported incorrectly as Atypical Speckled by [[id number]]. Changed to 1:320 Atypical Speckled on December 06, 2024@12:59 by [[id number]]. Ordering Provider: DALIA COBB Report Released Date/Time: December 03, 2024 01:38 PM Reporting Lab: [address] [address] Performing Lab: [place] [phone] ANTI-NUCLEAR Ab 1:320 Atypical Speckled <1:80 December 03, 2024 01:45 PM [facility] ROSALIE (SERUM) SERUM Specimen Type: SERUM Comment: BNP results less than or equal to 100 pg/ml are clearance representative of normal values in patients without CHF. BNP results greater than 100 pg/ml are considered abnormal and suggestive of CHF. Higher BNP concentrations in the first 72 hours after Acute Coronary Syndrome are associated with an increased risk of , myocardial infarction and CHF. Ordering Provider: DALIA COBB Report Released Date/Time: December 03, 2024 01:24 PM Reporting Lab: [address] [address] Performing Lab: [address] [address] .ALBUMIN ELEC 3.6 g/dL 2.9-4.4 .ALPHA 1 [...] INTERPRETATION Comment December 03, 2024 01:45 PM [facility] JORDAN SCREEN SERUM Specimen Type: SERUM No comment entered. Ordering Provider: DALIA COBB Report Released Date/Time: December 03, 2024 01:38 PM Reporting Lab: [address] [address] Performing Lab: [address] [address] JORDAN SCREEN Negative Negative December 03, 2024 01:45 PM [facility] BNP ([employer]) PLASMA Specimen Type: PLASMA Comment: BNP results less than or equal to 100 pg/ml are clearance representative of normal values in patients without CHF. BNP results greater than 100 pg/ml are considered abnormal and suggestive of CHF. Higher BNP concentrations in the first 72 hours after Acute Coronary Syndrome are associated with an increased risk of , myocardial infarction and CHF. Ordering Provider: DALIA COBB Report Released Date/Time: December 03, 2024 01:24 PM Reporting Lab: [address] [address] Performing Lab: [address] [address] BNP (MCCALL) 225 pg/mL H 0-100 December 03, 2024 01:45 PM [facility] CK TOTAL PLASMA Specimen Type: PLASM [...] December 03, 2024 01:33 PM Reporting Lab: [address] [address] Performing Lab: [address] [address] CK TOTAL 76 U/L 30-200 December 03, 2024 01:45 PM [facility] PANEL 5 PLASMA Specimen Type: PLASM [...] December 03, 2024 01:24 PM Reporting Lab: [address] [address] Performing Lab: [address] [address] CREATININE 2.05 mg/dL H 0.72-1.25 UREA NITROGEN [...] eGFR (CKD-EPI) December 03, 2024 01:45 PM [facility] CBC/PLT BLOOD Specimen Type: BLOOD No comment entered. Ordering Provider: DALIA COBB Report Released Date/Time: December 03, 2024 01:33 PM Reporting Lab: [address] [address] Performing Lab: [address] [address] WBC 5.6 10*3/uL 5.0-10.0 RBC 4.24 10*6/uL L 4.6-6.2 HGB 12.8 g/dL L 14.0-18.0 HCT 39.4 L 42.0-52.0 MCV 92.9 fL 80.0-94.0 MCH 30.2 pg 27.0-31.0 MCHC 32.5 g/dL 32.0-36.0 PLT 248 10*3/uL 150-450 MPV 10.2 fL 9.0-13.1 RDW 14.2 11.0-16.0 NRBC 0.0 0.0-0.0 December 03, 2024 01:45 PM [facility] AUTOMATED DIFF BLOOD Specimen Type: BLOOD No comment entered. Ordering Provider: DALIA COBB Report Released Date/Time: December 03, 2024 01:33 PM Reporting Lab: [address] [address] Performing Lab: [address] [address] A-LYMPH % 22.1 L 24.0-44.0 A-MONO % [...] and tobacco- related health factors from the [place] facility where the Encounter took place. Current Smoking Status This section includes the most current smoking, or tobacco-related health factor, from the [place] facility where the Encounter took place. Date/Time Current Smoking Status Comment Kelechi ity May 25, 2023 01:30 PM VA-TOBACCO FORMER USER [facility] Tobacco Use History This section includes a history of the smoking, or tobacco-related health factors, that were collected on or before the date of the Encounter. The data comes from the [place] facility where the Encounter took place. Date/Time Smoking Status/Tobacco Use Comment F acility May 25, 2023 01:30 PM VA-TOBACCO QUIT 15 YRS OR MORE [facility] Jun 18, 2022 01:30 PM VA-TOBACCO FORMER USER [facility] Jun 18, 2022 01:30 PM VA-TOBACCO QUIT 15 YRS OR MORE [facility] Jun 29, 2021 03:00 PM VA-TOBACCO FORMER USER [facility] Jun 29, 2021 03:00 PM VA-TOBACCO QUIT 15 YRS OR MORE [facility] Jul 28, 2020 09:30 AM VA-TOBACCO FORMER USER [facility] Jul 28, 2020 09:30 AM VA-TOBACCO QUIT 15 YRS OR MORE [facility] Jul 09, 2019 03:25 PM VA-TOBACCO NEVER USED [facility] Aug 24, 2018 02:06 PM VA-TOBACCO FORMER USER [facility] Aug 24, 2018 02:06 PM VA-TOBACCO QUIT 15 YRS OR MORE [facility] Sep 22, 2017 07:57 AM V9 LIFETIME NON-USER OF TOBACCO [facility] December 15, 2015 08:07 AM V9 LIFETIME NON-USER OF TOBACCO [facility] Jun 14, 2014 07:48 AM V9 LIFETIME NON-USER OF TOBACCO [facility] Jun 07, 2013 10:08 AM V9 LIFETIME NON-USER OF TOBACCO [facility] May 29, 2012 10:26 AM V9 LIFETIME NON-USER OF TOBACCO [facility] Nov 22, 2011 02:23 PM V9 LIFETIME NON-USER OF TOBACCO [facility] Oct 23, 2010 09:22 AM V9 QUIT TOBACCO >7 YEARS AGO [facility] May 30, 2007 03:08 PM V9 LIFETIME NON-USER OF TOBACCO [facility] Radiology Reports: +/- 30 days of [...] the Encounter. The data comes from all [place] treatment facilities. Date/Time Radiology Report Provider Source December 14, 2024 07:49 AM CARD. STRESS TEST W/TREADMILL/...: ROBBIE HUANG [id number] M Exm Date: DECEMBER 14, 2024@07:49 Req Phys: DALIA COBB Loc: [facility]O PACT [facility] 16-1 (Req'g Loc) Img Loc: NUCLEAR MEDICINE Service: [place] [address] (Case [id number] COMPLETE)CARD. STRESS TEST W/TREADMILL/...(NM Detailed) CPT:11216 Reason for Study: SEE CLINICAL HISTORY Clinical History: Cardiology approval by: [facility] CONNECTED? No Active Outpatient Medications (including [...] 14, 2024 Date Verified: DECEMBER 14, 2024 Ssis Ssrs Developer E-Sig: Report: STUDY: GXT with vasodilator REPORT: [...] Staff: CHAO ORR APRN, Cardiology Verified by scrummaster for CHAO ORR /CHAO GIRON-ISMAEL [facility] December 14, 2024 07:49 AM [id number] REGADENOSON 0.1MG X4 (LEXISCAN): ROBBIE HUANG [id number] -1940 M Exm Date: DECEMBER 14, 2024@07:49 Req Phys: DALIA COBB Loc: [facility] PACT [facility] 16-1 (Req'g Loc) Img Loc: NUCLEAR MEDICINE Service: [place] [address] (Case [id number] COMPLETE)[id number] REGADENOSON 0.1MG X4 (STEPHON(NM Detailed) CPT:J2785 [...] 14, 2024 Date Verified: DECEMBER 14, 2024 Ssis Ssrs Developer E-Sig: Report: STUDY: GXT with vasodilator REPORT: [...] Staff: CHAO ORR APRN, Cardiology Verified by scrummaster for CHAO ORR /[facility] December 14, 2024 07:49 AM CARD. STRESS TEST W/TREADMILL/...: ROBBIE HUANG [id number] -1940 M Ex Date: DECEMBER 14, 2024@07:49 Req Phys: DALIA COBB Loc: [facility]ETO PACT WHITNEY 16-1 (Req'g Loc) Img Loc: NUCLEAR MEDICINE Service: [place] [address] (Case [id number] COMPLETE)CARD. STRESS TEST W/TREADMILL/...(NM Detailed) CPT:67973 Proc Modifiers : GXT Reason for Study: [...] 14, 2024 Date Verified: DECEMBER 14, 2024 Ssis Ssrs Developer E-Sig: Report: [facility], [place], [place] STUDY: Regadenoson (Lexiscan) SPECT Tc-99m myoview [...] performed with tomographic and three-dimensional reconstructions with [employer] NM/CT 640 system. Exercise: Patient exercised for [...] data sets in addition to the conventional akf-qpzsiovgrjs-aoiiytgrh images. Both filtered back projection and iterative [...] ventricular cavity. 4. SPECT images: Attenuation-corrected and fqx-dwfvsckwzgd-cxlmvpehf SPECT images were evaluated. SPECT images demonstrate [...] JEB SANTOS MD, CARDIOLOGY ATTENDING Verified by scrummaster for JEB SANTOS MD /JEB MANCILLA-CDD [facility] December 14, 2024 07:49 AM 05757(D) MYOCARDIA L SPECT(MULTIPLE): ROBBIE HUANG [id number] -1940 M Exm Date: DECEMBER 14, 2024@07:49 Req Phys: DALIA COBB Pat Loc: [facility] PACT [facility] 16-1 (Req'g Loc) Img Loc: NUCLEAR MEDICINE Service: [place] [address] (Case [id number] COMPLETE)29524(D) MYOCARDIAL SPECT(MULTIPL(NM Detailed) CPT:76670 Proc Modifiers : Lexiscan (Regadenoson) CPT Modifiers [...] GAMBOA Clinical History: Cardiology approval by: Petra SOTELO [...] 14, 2024 Date Verified: DECEMBER 14, 2024 Ssis Ssrs Developer E-Sig: Report: [facility], [place], [place] STUDY: Regadenoson (Lexiscan) SPECT Tc-99m myoview [...] performed with tomographic and three-dimensional reconstructions with [employer] NM/CT 640 system. Exercise: Patient exercised for [...] data sets in addition to the conventional ooi-hvanslebvie-cbwxgwhdp images. Both filtered back projection and iterative [...] ventricular cavity. 4. SPECT images: Attenuation-corrected and rav-rwosibxtzju-nwsqskrow SPECT images were evaluated. SPECT images demonstrate [...] ABNORMALITY, ATTN NEEDED Primary Interpreting Staff: JEB ASNTOS MD, CARDIOLOGY ATTENDING Verified by scrummaster for JEB SANTOS MD /JEB MANCILLA-CDD [facility] December 14, 2024 07:49 AM MYOVIEW(1): ROBBIE HUANG [id number] -1940 M Ex Date: DECEMBER 14, 2024@07:49 Req Phys: DALIA COBB Loc: [facility] 16-1 (Req'g Loc) Img Loc: NUCLEAR MEDICINE Service: [place] [address] (Case [id number] COMPLETE)MYOVIEW(1) (NM Detailed) CPT:A9502 Reason for Study: [...] 14, 2024 Date Verified: DECEMBER 14, 2024 Ssis Ssrs Developer E-Sig: Report: [facility], [place], [place] STUDY: Regadenoson (Lexiscan) SPECT Tc-99m myoview [...] performed with tomographic and three-dimensional reconstructions with [employer].Do/CT 640 system. Exercise: Patient exercised for 6 [...] data sets in addition to the conventional ucu-diqiarsyphx-lzdsvkrtk images. Both filtered back projection and iterative [...] ventricular cavity. 4. SPECT images: Attenuation-corrected and qhf-qvujblpmbnd-djzvkzwql SPECT images were evaluated. SPECT images demonstrate [...] JEB SANTOS MD, CARDIOLOGY ATTENDING Verified by scrummaster for JEB SANTOS MD /JEB MANCILLA-CDD [facility] December 14, 2024 07:49 AM MYOVIEW(2): ROBBIE HUANG [id number] -1940 M Exm Date: DECEMBER 14, 2024@07:49 Req Phys: DALIA COBB Pat Loc: [facility]CT [facility] 16-1 (Req'g Loc) Img Loc: NUCLEAR MEDICINE Service: [place] [address] (Case [id number] COMPLETE)MYOVIEW(2) (NM Detailed) CPT:A9502 Reason for Study: [...] 14, 2024 Date Verified: DECEMBER 14, 2024 Ssis Ssrs Developer E-Sig: Report: [place], [place] STUDY: Regadenoson (Lexiscan) SPECT Tc-99m myoview [...] performed with tomographic and three-dimensional reconstructions with [employer] NM/CT 640 system. Exercise: Patient exercised for [...] data sets in addition to the conventional yqo-mdqainibojc-bmwuebgta images. Both filtered back projection and iterative [...] ventricular cavity. 4. SPECT images: Attenuation-corrected and flj-nzlcmlmahml-xrkiubyho SPECT images were evaluated. SPECT images demonstrate [...] JEB SANTOS MD, CARDIOLOGY ATTENDING Verified by scrummaster for JEB SANTOS MD /JEB MANCILLA-CDD [facility] December 14, 2024 07:49 AM [id number] REGADENOSON 0.1MG X1 (LEXISCAN): ROBBIE HUANGAlex [id number] -1940 M Exm Date: DECEMBER 14, 2024@07:49 Req Phys: DALIA COBB Pat Loc: [facility] 16-1 (Req'g Loc) Img Loc: NUCLEAR MEDICINE Service: [place] [address] (Case [id number] COMPLETE)[id number] REGADENOSON 0.1MG X1 (STEPHON(NM Detailed) CPT:J2785 [...] 14, 2024 Date Verified: DECEMBER 14, 2024 Ssis Ssrs Developer E-Sig: Report: [facility], [place], [place] STUDY: Regadenoson (Lexiscan) SPECT Tc-99m myoview [...] performed with tomographic and three-dimensional reconstructions with [employer] NM/CT 640 system. Exercise: Patient exercised for [...] data sets in addition to the conventional ohx-vivxkbovjzk-unclzfduk images. Both filtered back projection and iterative [...] ventricular cavity. 4. SPECT images: Attenuation-corrected and ntd-vgmlbaedtoe-bbeycvsnr SPECT images were evaluated. SPECT images demonstrate [...] JEB SANTOS MD, CARDIOLOGY ATTENDING Verified by scrummaster for JEB SANTOS MD /JEB MANCILLA-D [facility] December 14, 2024 07:49 AM [id number] REGADENOSON 0.1MG X2 (LEXISCAN): ROBBIE HUANG MICA [id number] -1940 M Ex Date: DECEMBER 14, 2024@07:49 Req Phys: DALIA COBB Loc: VETO PACT WHITNEY 16-1 (Req'g Loc) [facility] Loc: NUCLEAR MEDICINE Service: [place] [address] (Case [id number] COMPLETE)[id number] REGADENOSON 0.1MG X2 (STEPHON(NM Detailed) CPT:J2785 [...] 14, 2024 Date Verified: DECEMBER 14, 2024 Ssis Ssrs Developer E-Sig: Report: [facility], [place], [place] STUDY: Regadenoson (Lexiscan) SPECT Tc-99m myoview [...] performed with tomographic and three-dimensional reconstructions with [employer] NM/CT 640 system. Exercise: Patient exercised for [...] data sets in addition to the conventional shw-dcllfpzvsil-xbogdrrmx images. Both filtered back projection and iterative [...] ventricular cavity. 4. SPECT images: Attenuation-corrected and och-xusjxhposjw-ytmrdvhna SPECT images were evaluated. SPECT images demonstrate [...] JEB SANTOS MD, CARDIOLOGY ATTENDING Verified by scrummaster for JEB SANTOS MD /JEB MANCILLA-CDD [facility] December 14, 2024 07:49 AM TC-99M X1 FROM NON -HEU SOURCE: ROBBIE HUANG [id number] -1940 M Exm Date: DECEMBER 14, 2024@07:49 Req Phys: DALIA COBB Pat Loc: VTEO PACT [facility]ITNEY 16-1 (Req'g Loc) Img Loc: NUCLEAR MEDICINE Service: [place] [address] (Case [id number] COMPLETE)TC-99M X1 FROM NON-HEU SOURCE (NM Detailed) [...] 14, 2024 Date Verified: DECEMBER 14, 2024 Ssis Ssrs Developer E-Sig: Report: [place] STUDY: Regadenoson (Lexiscan) SPECT Tc-99m myoview [...] performed with tomographic and three-dimensional reconstructions with [employer].Do/CT 640 system. Exercise: Patient exercised for 6 [...] data sets in addition to the conventional jfs-nrdgruaacfk-mgoyimjzu images. Both filtered back projection and iterative [...] ventricular cavity. 4. SPECT images: Attenuation-corrected and idm-xvmzujwdzhu-bolebkdtw SPECT images were evaluated. SPECT images demonstrate [...] JEB SANTOS MD, CARDIOLOGY ATTENDING Verified by scrummaster for JEB SANTOS MD /JEB MANCILLA-D [facility] December 14, 2024 07:49 AM [id number] REGADENOSON 0.1MG X3 (LEXISCAN): ROBBIE HUANG [id number] -1940 M Exm Date: DECEMBER 14, 2024@07:49 Req Phys: DALIA COBB Loc: [facility]O PACT [facility]ITNEY 16-1 (Req'g Loc) Img Loc: NUCLEAR MEDICINE Service: [place] [address] (Case [id number] COMPLETE)[id number] REGADENOSON 0.1MG X3 (STEPHON(NM Detailed) CPT:J2785 [...] 14, 2024 Date Verified: DECEMBER 14, 2024 Ssis Ssrs Developer E-Sig: Report: [facility], [place] STUDY: Regadenoson (Lexiscan) SPECT Tc-99m myoview [...] performed with tomographic and three-dimensional reconstructions with [employer] NM/CT 640 system. Exercise: Patient exercised for [...] data sets in addition to the conventional xog-ymxogcezczw-tlsjzgtsn images. Both filtered back projection and iterative [...] ventricular cavity. 4. SPECT images: Attenuation-corrected and edx-rwishcuhkfp-owhpooiyf SPECT images were evaluated. SPECT images demonstrate [...] JEB SANTOS MD, CARDIOLOGY ATTENDING Verified by scrummaster for JEB SANTOS MD /JEB MANCILLA-CDD [facility] December 14, 2024 07:49 AM TC-99M X2 FROM NON -HEU SOURCE: ROBBIE HUANG [id number] -1940 M [facility] Date: DECEMBER 14, 2024@07:49 Req Phys: DALIA COBB Loc: [facility] WHITNEY 16-1 (Req'g Loc) [facility] Loc: NUCLEAR MEDICINE Service: [place] [address] (Case [id number] COMPLETE)TC-99M X2 FROM NON-HEU SOURCE (NM Detailed) [...] 14, 2024 Date Verified: DECEMBER 14, 2024 Ssis Ssrs Developer E-Sig: Report: [place] STUDY: Regadenoson (Lexiscan) SPECT Tc-99m myoview [...] performed with tomographic and three-dimensional reconstructions with [employer].Do/CT 640 system. Exercise: Patient exercised for 6 [...] data sets in addition to the conventional vla-saipoowtlks-ldxfyhjxy images. Both filtered back projection and iterative [...] ventricular cavity. 4. SPECT images: Attenuation-corrected and gji-csozcfwardi-eqfquwpcw SPECT images were evaluated. SPECT images demonstrate [...] JEB SANTOS MD, CARDIOLOGY ATTENDING Verified by scrummaster for JEB SANTOS MD /JEB MANCILLA-Bina [facility] Encounter Notes: All associated encounter notes This section contains the clinical notes associated to the Encounter. Date/Time Encounter Note(s) Provider Source December 20, 2024 10:33 AM CARE COORDINATION HOME TELEHEALTH SUMMARIZATION NOTE: LOCAL TITLE: HT MONTHLY MONITOR NOTE STANDARD TITLE: CARE COORDINATION HOME TELEHEALTH SUMMARIZATION DATE OF NOTE: DECEMBER 20, 2024@10:33 ENTRY DATE: DECEMBER 20, 2024@10:34:01 AUTHOR: GARCIA BRUNNER EXP COSIGNER: URGENCY: STATUS: COMPLETED The [facility] is enrolled in the Home Telehealth (HT) program and continues to be monitored via HT technology. The data sent by the [facility] is reviewed and analyzed by the HT staff, who provide ongoing case management and health education while communicating and collaborating with the health care team as appropriate. This note covers a total of 30 minutes for the month monitored. Month monitored: November/ GARCIA BRUNNER MSN, RN-BC PROCESS OPERATOR Signed: 12/20/2024 10:46 GARCIA BRUNNER [facility]
--- OUTSIDE RECORDS SUMMARY | 2024-12-24 11:39 | XMS_ITS | Encounter Summary ---
Author Name [facility] [place] Address [address] [place] [address] Care Team Providers Care Cartography Supervisor Name Role Phone JORDYN FARHAT Primary Care [...] AUTOM OTIVE - RETI Jul 25, 2018 [id number] MALUTI PERKINS SPOUSE MEDICARE (WNR) MEDICARE (M) PART B Jan 22, 2007 PART B [id number] MALUJUSTYNA TINAJERO RGE PATIENT MEDICARE (WNR) MEDICARE (M) PART A Sep 22, 2005 PART A [id number] REINAJUSTYNA AKBAR PATIENT FOR LIFE TRICA RE FOR LIFE Jul 25, 2017 FOR LIFE [id number] ROBBIE HUANG JR PATIENT Selected Encounter This section includes the information on record at [place] for the Encounter. Date/Time Encounter Type Encounter Description Reason Provider Source Dec 24, 2024 03:39 PM PH1 ASSMT&MGMT NQHP 11-20 TELEPHONE BY STAFF ICD-10-CM I10 Essential (primary) hypertension KEEGAN BRUNNER E Encounter Template Text not used by [place] Assessments - Encounter Diagnoses This section includes the primary and secondary diagnoses documented for the Encounter. Date/Time Primary/Secondary Diagnosis Diagnosis Name Provider Source Dec 24, 2024 03:39 PM PRIMARY Essential (primary) hypertension SRINIVASAN BRUNNER [facility] Plan of Treatment: Future Appointments (+ 6 months) and Future Tests (+/- 45 days) The Plan of Treatment section includes future care activities for the patient from all [place] [facility]. This section includes future appointments and future orders which are active, pending or scheduled. Future Appointments This section includes appointments that were scheduled to occur 6 months from the date of the Encounter, up to a maximum of 20 appointments. The data comes from all [facility]. Appointment Date/Time Appointment Type Appointme nt Facility Name Jan 04, 2025 01:30 PM AMBULATORY [facility] Jan 31, 2025 03:00 PM AMBULATORY - MEDICINE [facility] Feb 05, 2025 01:00 PM AMBULATORY - MEDICINE [facility] Feb 05, 2025 02:00 PM AMBULATORY - MEDICINE [facility] Active, Pending, and Scheduled Orders This section includes a listing of several types of active, pending, and scheduled orders, including clinic medications orders, diagnostic test orders, procedure orders and consult orders; where the start date of the order is 45 days before the date of the Encounter or 45 days after the date of theEncounter. The data comes from all [facility]. Test Date/Time Test Type Test Details Facility Name Jan 04, 2025 12:00 AM Imaging - Vascular Lab Order [facility] PRESSURES[facility] Jan 04, 2025 12:00 AM Imaging - Vascular Lab Order [facility] Feb 01, 2025 12:00 AM Laboratory - Chemi stry Order PANEL 4 [id number] SP ONCE [facility] Feb 01, 2025 12:00 AM Laboratory - Chemi stry Order CREATININE URINE SP ONCE [facility] Feb 01, 2025 12:00 AM Laboratory - Chemi stry Order 25-OH VITAMIN D [id number]-[id number] SP ONCE [facility] Feb 01, 2025 12:00 AM Laboratory - Chemi stry Order URINALYSIS URINE PATIENT WAITING SP ONCE [facility] Feb 01, 2025 12:00 AM Laboratory - Chemi stry Order TOTAL PROTEIN URINE SP ONCE [facility] Feb 01, 2025 12:00 AM Laboratory - Chemi stry Order PTH INTACT (MCCALL) [id number] SP ONCE [facility] Feb 01, 2025 12:00 AM Laboratory - Chemi stry Order CBC/PLT [id number] BLOOD SP ONCE [facility] Lab Results: +/- 30 days of the encounter This section includes the Chemistry and Hematology Lab Results on record with [place] for the patient. Radiology Reports and Pathology Reports are provided separately, in subsequent sections. Lab Results This section contains the Chemistry/Hematology Results that were resulted 30 days before or 30 daysafter the date of the Encounter. Date/Time Source Result Type Result - Unit Interpretation Reference Range Specimen Type Comment December 03, 2024 02:03 PM [facility] PROTEIN ELECTROPHORESIS URINE Specimen Type: URINE No comment entered. Ordering Provider: FARHAT BRIGGS Report Released Date/Time: December 03, 2024 01:24 PM Reporting Lab: [facility] [address] [facility] [address] Performing Lab: [facility] [address] [facility] [address] TOTAL PROTEIN 17.0 mg/dL Not Estab. .ALBUMIN ELEC 29.4 .ALPHA 1 ELEC 5.2 .ALPHA 2 ELEC 21.5 .BETA ELEC 19.7 .GAMMA ELEC 24.2 .M-SPIKE Not Observed Not Observed December 03, 2024 02:03 PM [facility] TOTAL PROTEIN URINE Specimen Type: URINE No comment entered. Ordering Provider: FARHAT BRIGGS Report Released Date/Time: December 03, 2024 01:24 PM Reporting Lab: [address] [address] Performing Lab: [place] [id number] TOTAL PROTEIN 16 mg/dL H 0-14 December 03, 2024 02:03 PM [facility] CREATININE URINE Specimen Type: URINE No comment entered. Ordering Provider: FARHAT BRIGGS Report Released Date/Time: December 03, 2024 01:24 PM Reporting Lab: [address] [address] Performing Lab: [place] [phone] CREATININE 63.6 mg/dL December 03, 2024 02:03 PM [facility] URINALYSIS URINE Specimen Type: URINE Comment: Microscopic not indicated Ordering Provider: FARHAT BRIGGS Report Released Date/Time: December 03, 2024 01:29 PM Reporting Lab: [place] [phone] Performing Lab: [address] [address] URINE COLOR Light Yellow Colorless-Yello w APPEARANCE Clear Clear UROBILINOGEN Normal mg/dL Normal URINE BLOOD Negative Negative URINE BILIRUBIN Negative Negative URINE KETONES Negative mg/dL Negative URINE PROTEIN Negative mg/dL Negative-Tr rachell URINE PH 5.0 4.5-8.0 URINE NITRITE Negative Negative URINE LEUKOCYTE EST Negative Negative SPECIFIC GRAVITY 1.014 1.005-1.030 URINE GLUCOSE >1000 mg/dL H Negative December 03, 2024 01:45 PM [facility] ANTI-NUCLEAR Ab SERUM Specimen Type: SERUM Comment: Atypical speckled resembling DFS (Dense-Fine Speckled. The DFS pattern has a low prevalence in systemic autoimmune rheumatic diseases. The clinical association remains unclear. Due to its close resemblance to other patterns of clinical relevance, (i.e. Homogeneous, speckled, and mixed patterns) follow-up testing may be recommended. ANTI-NUCLEAR Ab reported incorrectly as Atypical Speckled by [[id number]]. Changed to 1:320 Atypical Speckled on December 06, 2024@12:59 by [[id number]]. Ordering Provider: FARHAT BRIGGS Report Released Date/Time: December 03, 2024 01:38 PM Reporting Lab: [place] [phone] Performing Lab: [place] [address] ANTI-NUCLEAR Ab 1:320 Atypical Speckled <1:80 December 03, 2024 01:45 PM [facility] ROSALIE (SERUM) SERUM Specimen Type: SERUM Comment: BNP results less than or equal to 100 pg/ml are medical field representative of normal values in patients without CHF. BNP results greater than 100 pg/ml are considered abnormal and suggestive of CHF. Higher BNP concentrations in the first 72 hours after Acute Coronary Syndrome are associated with an increased risk of , myocardial infarction and CHF. Ordering Provider: FARHAT BRIGGS Report Released Date/Time: December 03, 2024 01:24 PM Reporting Lab: [address] [address] Performing Lab: [address] [address] .ALBUMIN ELEC 3.6 g/dL 2.9-4.4 .ALPHA 1 [...] INTERPRETATION Comment December 03, 2024 01:45 PM [facility] JORDAN SCREEN SERUM Specimen Type: SERUM No comment entered. Ordering Provider: FARHAT BRIGGS Report Released Date/Time: December 03, 2024 01:38 PM Reporting Lab: [address] [address] Performing Lab: [address] [address] JORDAN SCREEN Negative Negative December 03, 2024 01:45 PM [facility] BNP (Phosph[employer]ics) PLASMA Specimen Type: PLASMA Comment: BNP results less than or equal to 100 pg/ml are medical field representative of normal values in patients without CHF. BNP results greater than 100 pg/ml are considered abnormal and suggestive of CHF. Higher BNP concentrations in the first 72 hours after Acute Coronary Syndrome are associated with an increased risk of , myocardial infarction and CHF. Ordering Provider: FARHAT BRIGGS Report Released Date/Time: December 03, 2024 01:24 PM Reporting Lab: [address] [address] Performing Lab: [address] [address] BNP (MCCALL) 225 pg/mL H 0-100 December 03, 2024 01:45 PM [facility] PANEL 5 PLASMA Specimen Type: PLASM A [...] December 03, 2024 01:24 PM Reporting Lab: [address] [address] Performing Lab: [address] [address] CREATININE 2.05 mg/dL H 0.72-1.25 UREA NITROGEN [...] eGFR (CKD-EPI) December 03, 2024 01:45 PM [facility] TOTAL PLASMA Specimen Type: PLASM A Comment: [...] December 03, 2024 01:33 PM Reporting Lab: [address] [address] Performing Lab: [address] [address] CK TOTAL 76 U/L 30-200 December 03, 2024 01:45 PM [facility] CBC/PLT BLOOD Specimen Type: BLOOD No comment entered. Ordering Provider: FARHAT BRIGGS Report Released Date/Time: December 03, 2024 01:33 PM Reporting Lab: [address] [address] Performing Lab: [address] [address] WBC 5.6 10*3/uL 5.0-10.0 RBC 4.24 10*6/uL L 4.6-6.2 HGB 12.8 g/dL L 14.0-18.0 HCT 39.4 L 42.0-52.0 MCV 92.9 fL 80.0-94.0 MCH 30.2 pg 27.0-31.0 MCHC 32.5 g/dL 32.0-36.0 PLT 248 10*3/uL 150-450 MPV 10.2 fL 9.0-13.1 RDW 14.2 11.0-16.0 NRBC 0.0 0.0-0.0 December 03, 2024 01:45 PM [facility] AUTOMATED DIFF BLOOD Specimen Type: BLOOD No comment entered. Ordering Provider: FARHAT BRIGGS Report Released Date/Time: December 03, 2024 01:33 PM Reporting Lab: [address] [address] Performing Lab: [address] [address] A-LYMPH % 22.1 L 24.0-44.0 A-MONO % [...] and tobacco- related health factors from the [facility] where the Encounter took place. Current Smoking Status This section includes the most current smoking, or tobacco-related health factor, from the [place] facility where the Encounter took place. Date/Time Current Smoking Status Comment Kelechi ity May 25, 2023 01:30 PM VA-TOBACCO QUIT 15 YRS OR MORE [facility] Tobacco Use History This section includes a history of the smoking, or tobacco-related health factors, that were collected on or before the date of the Encounter. The data comes from the [place] facility where the Encounter took place. Date/Time Smoking Status/Tobacco Use Comment Ricardo acility May 25, 2023 01:30 PM VA-TOBACCO QUIT 15 YRS OR MORE [facility] Jun 18, 2022 01:30 PM VA-TOBACCO FORMER USER [facility] Jun 18, 2022 01:30 PM VA-TOBACCO QUIT 15 YRS OR MORE [facility] Jun 29, 2021 03:00 PM VA-TOBACCO FORMER USER [facility] Jun 29, 2021 03:00 PM VA-TOBACCO QUIT 15 YRS OR MORE [facility] Jul 28, 2020 09:30 AM VA-TOBACCO FORMER USER [facility] Jul 28, 2020 09:30 AM VA-TOBACCO QUIT 15 YRS OR MORE [facility] Jul 09, 2019 03:25 PM VA-TOBACCO NEVER USED [facility] Aug 24, 2018 02:06 PM VA-TOBACCO FORMER USER [facility] Aug 24, 2018 02:06 PM VA-TOBACCO QUIT 15 YRS OR MORE [facility] Sep 22, 2017 07:57 AM V9 LIFETIME NON-USER OF TOBACCO [facility] December 15, 2015 08:07 AM V9 LIFETIME NON-USER OF TOBACCO [facility] Jun 14, 2014 07:48 AM V9 LIFETIME NON-USER OF TOBACCO [facility] Jun 07, 2013 10:08 AM V9 LIFETIME NON-USER OF TOBACCO [facility] May 29, 2012 10:26 AM V9 LIFETIME NON-USER OF TOBACCO [facility] Nov 22, 2011 02:23 PM V9 LIFETIME NON-USER OF TOBACCO [facility] Oct 23, 2010 09:22 AM V9 QUIT TOBACCO >7 YEARS AGO [facility] May 30, 2007 03:08 PM V9 LIFETIME NON-USER OF TOBACCO [facility] Radiology Reports: +/- 30 days of the [...] the Encounter. The data comes from all [place] treatment facilities. Date/Time Radiology Report Provider Source December 14, 2024 07:49 AM CARD. STRESS TEST W/TREADMILL/...: ROBBIE HUANG [id number] -1940 M Exm Date: DECEMBER 14, 2024@07:49 Req Phys: FARHAT BRIGGS [facility] (Req'g Loc) Img Loc: NUCLEAR MEDICINE Service: [place] [address] (Case [id number] COMPLETE)CARD. STRESS TEST W/TREADMILL/...(NM Detailed) CPT:25857 Reason for Study: SEE CLINICAL HISTORY Clinical History: Cardiology approval by: [facility] SERVICE CONNECTED? No Active Outpatient Medications (including [...] 14, 2024 Date Verified: DECEMBER 14, 2024 Arc Trimmer E-Sig: Report: STUDY: GXT with vasodilator REPORT: [...] Staff: CHAO ORR APRN, Cardiology Verified by configuration management administrator for CHAO ORR /CHAO GIRON-ISMAEL [facility] December 14, 2024 07:49 AM [id number] REGADENOSON 0.1MG X4 (LEXISCAN): ROBBIE HUANG [id number] 1940 M Exm Date: DECEMBER 14, 2024@07:49 Req Phys: JORDYNFARHAT Abby Loc: [facility] PACT WHITNEY 16-1 (Req'g Loc) Img Loc: NUCLEAR MEDICINE Service: [place] [address] (Case [id number] COMPLETE)[id number] REGADENOSON 0.1MG X4 (STEPHON(NM Detailed) CPT:J2785 [...] 14, 2024 Date Verified: DECEMBER 14, 2024 Arc Trimmer E-Sig: Report: STUDY: GXT with vasodilator REPORT: [...] Staff: CHAO ORR APRN, Cardiology Verified by configuration management administrator for CHAO ORR /CHAO [facility] December 14, 2024 07:49 AM CARD. STRESS TEST W/TREADMILL/...: ROBBIE HUANG [id number] -1940 M Ex Date: DECEMBER 14, 2024@07:49 Req Phys: FARHAT BRIGGS [facility] Im Loc: NUCLEAR MEDICINE Service: [place] [address] (Case [id number] COMPLETE)CARD. STRESS TEST W/TREADMILL/...(NM Detailed) CPT:47455 Proc Modifiers : GXT Reason for Study: SEE CLINICAL HISTORY Clinical History: Cardiology approval by: [facility] SERVICE CONNECTED? No Active Outpatient Medications (including [...] 14, 2024 Date Verified: DECEMBER 14, 2024 Arc Trimmer E-Sig: Report: [facility], [place], [place] STUDY: Regadenoson (Lexiscan) SPECT Tc-99m myoview [...] performed with tomographic and three-dimensional reconstructions with Lust have it!/CT 640 system. Exercise: Patient exercised for 6 [...] data sets in addition to the conventional nrx-ubjqbvwoskj-lteblxljd images. Both filtered back projection and iterative [...] ventricular cavity. 4. SPECT images: Attenuation-corrected and gje-jzrpqhskjzt-lhzcrptkq SPECT images were evaluated. SPECT images demonstrate [...] JEB SANTOS MD, CARDIOLOGY ATTENDING Verified by configuration management administrator for JEB SANTOS MD /JEB MANCILLA-CDD [facility] December 14, 2024 07:49 AM [id number](D) MYOCARDIA L SPECT(MULTIPLE): ROBBIE HUANG [id number] -1940 M Exm Date: DECEMBER 14, 2024@07:49 Req Phys: JORDYNFARHAT Carter Pat Loc: [facility] PACT WHITNEY 16-1 (Req'g Loc) Img Loc: NUCLEAR MEDICINE Service: [place] [address] (Case [id number] COMPLETE)[id number](D) MYOCARDIAL SPECT(MULTIPL(NM Detailed) CPT:34786 Proc Modifiers : Lexiscan (Regadenoson) CPT Modifiers [...] 14, 2024 Date Verified: DECEMBER 14, 2024 Arc Trimmer E-Sig: Report: [facility], [place], [place] STUDY: Regadenoson (Lexiscan) SPECT Tc-99m myoview [...] performed with tomographic and three-dimensional reconstructions with WorldPassKey NM/CT 640 system. Exercise: Patient exercised for [...] data sets in addition to the conventional kfq-vblokphqdvu-dyapeexas images. Both filtered back projection and iterative [...] ventricular cavity. 4. SPECT images: Attenuation-corrected and dol-zsswqrwgvka-vzmxmhkvv SPECT images were evaluated. SPECT images demonstrate [...] JEB SANTOS MD, CARDIOLOGY ATTENDING Verified by configuration management administrator for JEB SANTOS MD /JEB [facility]CILLA-[facility] December 14, 2024 07:49 AM MYOVIEW(1): ROBBIE HUANG [id number] -1940 M [facility] Date: DECEMBER 14, 2024@07:49 Req Phys: FARHAT BRIGGS [facility] Img Loc: NUCLEAR MEDICINE Service: [place] [address] (Case [id number] COMPLETE)MYOVIEW(1) (NM Detailed) CPT:A9502 Reason for Study: [...] 14, 2024 Date Verified: DECEMBER 14, 2024 Arc Trimmer E-Sig: Report: [facility], [place], [place] STUDY: Regadenoson (Lexiscan) SPECT Tc-99m myoview [...] performed with tomographic and three-dimensional reconstructions with WorldPassKey NM/CT 640 system. Exercise: Patient exercised for [...] data sets in addition to the conventional bvf-cjadktamtze-vshiwlkca images. Both filtered back projection and iterative [...] ventricular cavity. 4. SPECT images: Attenuation-corrected and fmx-zeoenshqapa-otjiiozls SPECT images were evaluated. SPECT images demonstrate [...] JEB SANTOS MD, CARDIOLOGY ATTENDING Verified by configuration management administrator for JEB SANTOS MD /JEB MANCILLA-ISMAEL [facility] December 14, 2024 07:49 AM MYOVIEW(2): ROBBIE HUANG [id number] -1940 M Exm Date: DECEMBER 14, 2024@07:49 Req Phys: FARHAT BRIGGS Abby Loc: [facility] PACT WHITNEY 16-1 (Req'g Loc) Img Loc: NUCLEAR MEDICINE Service: [place] [address] (Case [id number] COMPLETE)MYOVIEW(2) (NM Detailed) CPT:A9502 Reason for Study: SEE CLINICAL HISTORY Clinical History: Cardiology approval by: [facility] SERVICE CONNECTED? No Active Outpatient Medications (including [...] 14, 2024 Date Verified: DECEMBER 14, 2024 Arc Trimmer E-Sig: Report: [facility], [place], [place] STUDY: Regadenoson (Lexiscan) SPECT Tc-99m myoview [...] performed with tomographic and three-dimensional reconstructions with Touch Bion[employer]a NM/CT 640 system. Exercise: Patient exercised for [...] data sets in addition to the conventional skv-zdrcuxnoipb-ijfsnzaal images. Both filtered back projection and iterative [...] ventricular cavity. 4. SPECT images: Attenuation-corrected and bls-gooxksawfmq-bmbynluwl SPECT images were evaluated. SPECT images demonstrate [...] JEB SANTOS MD, CARDIOLOGY ATTENDING Verified by configuration management administrator for JEB SANTOS MD /JEB MANCILLA-CDD [facility] December 14, 2024 07:49 AM [id number] REGADENOSON 0.1MG X1 (LEXISCAN): ROBBIE HUANG [id number] -1940 M Exm Date: DECEMBER 14, 2024@07:49 Req Phys: FARHAT BRIGGS Loc: [facility] PACT WHITNEY 16-1 (Req'g Loc) Img Loc: NUCLEAR MEDICINE Service: [place] [address] (Case [id number] COMPLETE)[id number] REGADENOSON 0.1MG X1 (STEPHON(NM Detailed) CPT:J2785 [...] 14, 2024 Date Verified: DECEMBER 14, 2024 Arc Trimmer E-Sig: Report: [facility], [place], [place] STUDY: Regadenoson (Lexiscan) SPECT Tc-99m myoview [...] performed with tomographic and three-dimensional reconstructions with WorldPassKey NM/CT 640 system. Exercise: Patient exercised for [...] data sets in addition to the conventional fry-rzgiddmjttz-dukqepfvx images. Both filtered back projection and iterative [...] ventricular cavity. 4. SPECT images: Attenuation-corrected and xms-gjuzzsclnmx-gylqzqrql SPECT images were evaluated. SPECT images demonstrate [...] JEB SANTOS MD, CARDIOLOGY ATTENDING Verified by configuration management administrator for JEB SANTOS MD /JEB MANCILLA-CDD [facility] December 14, 2024 07:49 AM [id number] REGADENOSON 0.1MG X2 (LEXISCAN): ROBBIE HUANG [id number] -1940 M Ex Date: DECEMBER 14, 2024@07:49 Req Phys: FARHAT BRIGGS Loc: [facility] PACT WHITNEY 16-1 (Req'g Loc) Img Loc: NUCLEAR MEDICINE Service: [place] [address] (Case [id number] COMPLETE)[id number] REGADENOSON 0.1MG X2 (STEPHON(NM Detailed) CPT:J2785 Reason for Study: SEE CLINICAL HISTORY Clinical History: Cardiology approval by: [facility] SERVICE CONNECTED? No Active Outpatient Medications (including [...] 14, 2024 Date Verified: DECEMBER 14, 2024 Arc Trimmer E-Sig: Report: [place], [place] STUDY: Regadenoson (Lexiscan) SPECT Tc-99m myoview [...] performed with tomographic and three-dimensional reconstructions with WorldPassKey NM/CT 640 system. Exercise: Patient exercised for [...] data sets in addition to the conventional gcz-qjsqkxdkdjs-gsxgsqqti images. Both filtered back projection and iterative [...] ventricular cavity. 4. SPECT images: Attenuation-corrected and ubp-rblvjpzuaji-gjrxguxju SPECT images were evaluated. SPECT images demonstrate [...] JEB SANTOS MD, CARDIOLOGY ATTENDING Verified by configuration management administrator for JEB SANTOS MD /JEB MANCILLA-CDD [facility] December 14, 2024 07:49 AM TC-99M X1 FROM NON -HEU SOURCE: ROBBIE HUANG [id number] -1940 M Exm Date: DECEMBER 14, 2024@07:49 Req Phys: FARHAT BRIGGS Pat Loc: [facility] PACT WHITNEY 16-1 (Req'g Loc) Img Loc: NUCLEAR MEDICINE Service: [place] [address] (Case [id number] COMPLETE)TC-99M X1 FROM NON-HEU SOURCE (NM Detailed) [...] 14, 2024 Date Verified: DECEMBER 14, 2024 Arc Trimmer E-Sig: Report: [place] STUDY: Regadenoson (Lexiscan) SPECT Tc-99m myoview [...] performed with tomographic and three-dimensional reconstructions with Lust have it!/CT 640 system. Exercise: Patient exercised for 6 [...] data sets in addition to the conventional rjl-tvnkjobywih-rybgtibca images. Both filtered back projection and iterative [...] ventricular cavity. 4. SPECT images: Attenuation-corrected and tfu-jgrpzgvauol-uzwfzcnll SPECT images were evaluated. SPECT images demonstrate [...] LVEF is 29%. Participating Fellow: Juan R oCnn M.D. COMMUNICATION: Per this written report. ATTESTATION: I have personally reviewed the electrocardiograms and SPECT images with the participating physicians and agree with the report. Primary Diagnostic Code: SIGNIFICANT ABNORMALITY, ATTN NEEDED Primary Interpreting Staff: JEB SANTOS MD, CARDIOLOGY ATTENDING Verified by configuration management administrator for JEB SANTOS MD /JEB MANCILLA-D [facility] December 14, 2024 07:49 AM [id number] REGADENOSON 0.1MG X3 (LEXISCAN): ROBBIE HUANG [id number] -1940 M Exm Date: DECEMBER 14, 2024@07:49 Req Phys: FARHAT BRIGGS Loc: [facility] PACT WHITNEY 16-1 (Req'g Loc) Img Loc: NUCLEAR MEDICINE Service: [place] [address] (Case [id number] COMPLETE)[id number] REGADENOSON 0.1MG X3 (STEPHON(NM Detailed) CPT:J2785 [...] 14, 2024 Date Verified: DECEMBER 14, 2024 Arc Trimmer E-Sig: Report: [facility], [place] STUDY: Regadenoson (Lexiscan) SPECT Tc-99m myoview [...] performed with tomographic and three-dimensional reconstructions with WorldPassKey NM/CT 640 system. Exercise: Patient exercised for [...] data sets in addition to the conventional oyl-enxtimpafjz-kamlueysa images. Both filtered back projection and iterative [...] ventricular cavity. 4. SPECT images: Attenuation-corrected and olf-neyrenfmgss-ugwplptuv SPECT images were evaluated. SPECT images demonstrate [...] JEB SANTOS MD, CARDIOLOGY ATTENDING Verified by configuration management administrator for JEB SANTOS MD /JEB MANCILLA-CDD [facility] December 14, 2024 07:49 AM TC-99M X2 FROM NON -HEU SOURCE: ROBBIE HUANG [id number] -1940 M [facility] Date: DECEMBER 14, 2024@07:49 Req Phys: FARHAT BRIGGS Loc: [facility] WH[facility]EN[facility] 16-1 (Req'g Loc) [facility] Loc: NUCLEAR MEDICINE Service: Unknown [place] [id number] (Case [id number] COMPLETE)TC-99M X2 FROM NON-HEU SOURCE (NM Detailed) [...] 14, 2024 Date Verified: DECEMBER 14, 2024 Arc Trimmer E-Sig: Report: [place], [place] STUDY: Regadenoson (Lexiscan) SPECT Tc-99m myoview [...] performed with tomographic and three-dimensional reconstructions with Lust have it!/CT 640 system. Exercise: Patient exercised for 6 [...] data sets in addition to the conventional zwa-snvgrozvwai-vbqydmkmf images. Both filtered back projection and iterative [...] ventricular cavity. 4. SPECT images: Attenuation-corrected and ovs-fnijrwakeso-pzirymegj SPECT images were evaluated. SPECT images demonstrate [...] JEB SANTOS MD, CARDIOLOGY ATTENDING Verified by configuration management administrator for JEB SANTOS MD /JEB MANCILLA-CDD [facility] Encounter Notes: All associated encounter notes This section contains the clinical notes associated to the Encounter. Date/Time Encounter Note(s) Provider Source Dec 25, 2024 01:54 PM ADDENDUM: LOCAL TITLE: Addendum STANDARD TITLE: ADDENDUM DATE OF NOTE: DEC 25, 2024@13:54:58 ENTRY DATE: DEC 25, 2024@13:54:59 AUTHOR: FARHAT BRIGGS EXP COSIGNER: URGENCY: STATUS: COMPLETED pt already established cardiac pt and testing didn't show any significant changes. As per prior note, if ongoing BLE, would recommend FLORENCE and venous duplex. Fluid pills are not indicated unless kidney, heart or liver failure, none at the level that would indicate med at this point and not used for BLE edema. Will set up venous duplex and ABIs as likely hasn't received 12/14 letter yet. /jack/ Farhat Briggs MD Primary Care Attending Signed: 12/25/2024 13:58 Receipt Acknowledged By: 12/26/2024 14:57 /es/ GARCIA BRUNNER, MSN, RN-BC BLUEPRINT BLOCKER ====== --- Original Document --- 12/24/24 HT INTERVENTION NOTE: HT Admission Date: 04/10/2024 HT Diagnosis: HTN Provider-ordered vital sign goals: SBP<140 DBP <90 HT electronic capture of the blood pressure? Yes HT Emergency classification: L HT Category of Care: LOBO Last completion date: 10/15/24 [place] 3-month average response rate percentage: 97% HT [...] diet over the next 6 months. 4. [place] will continue to stay active and exercise as able. 5. HT RN to encourage daily use of HT equipment. 6. HT RN to encourage the to call Home Telehealth for assistance if/when needed to coordinate care. 7. HT RN to submit semiannual/on-request summary reports to the primary care provider. [place] is actively enrolled in the Home Telehealth program. Review of data shows the following out of range responses: Patient Name: ROBBIE HUANG Disease(s): Hypertension Date Range: 12/10/2024 - 12/24/2024 Blood Pressure Readings: Date 04:00-12:00 12:00-18:00 18:00-04:00 12/23/24 140/65 70(12:10) 12/21/24 153/71 70(21:27) 12/20/24 140/72 69(20:46) 12/19/24 144/71 60(09:34) 139/67 70(21:31) 12/18/24 124/67 66(09:47) 144/75 63(21:06) 12/17/24 139/72 63(10:39) 145/66 65(21:03) 12/16/24 138/73 66(13:52) 146/71 68(20:51) 12/15/24 144/72 64(21:55) 12/13/24 128/62 63(11:16) 12/12/24 143/67 65(10:00) 134/60 68(21:57) 12/11/24 131/67 67(10:28) 134/64 73(20:59) 12/10/24 126/75 94(20:58) 144/73 82(19:18) [place] Average Report Sys/[place] BP-HR Average 139/69 69 High 153/75 94 Low 124/60 60 ====== Assessment/Intervention( s)/Plan: called in and stated that he could not believe that it is taking all the way until January to get an appt with a bias machine operator helper. He stated that over the weekend he lost feeling in his big toe due to there being so much hard fluid in his legs and feet. He stated that he propped them up and eventually was able to lose the numbness in his toes. He stated that he is out and about right now and his legs seem okay. But he does not understand why that it is a daily problem for the fluid in his legs and feet to get so bad . He thinks he needs a fluid pill . He denies any other concerns at this time. Instructed that if he looses feeling again in his feet/legs again, can report to ED to futher evaluate bloodflow. He appreciated assistance. ===== PROVIDER: - Data update above - [place] with continued concerns for BLE swelling - over the weekend did lose feeling in toes due to increased swelling - requesting fluid pill or something just anything to help this - upset not able to get in to cardiology until January - Please alert any changes/recs to HT RN, thanks! /jack/ GARCIA BRUNNER, MSN, RN-BC BLUEPRINT BLOCKER Signed: 12/25/2024 13:45 Receipt Acknowledged By: 12/25/2024 13:58 /es/ Farhat Briggs MD Primary Care Attending [facility] Dec 24, 2024 03:39 PM CARE COORDINATION HOME TELEHEALTH FOLLOW-UP NOTE: LOCAL TITLE: HT INTERVENTION NOTE STANDARD TITLE: CARE COORDINATION HOME TELEHEALTH FOLLOW-UP NOTE DATE OF NOTE: DEC 24, 2024@15:39 ENTRY DATE: DEC 24, 2024@15:39:41 AUTHOR: GARCIA BRUNNER EXP COSIGNER: URGENCY: STATUS: [...] diet over the next 6 months. 4. [place] will continue to stay active and exercise as able. 5. HT RN to encourage daily use of HT equipment. 6. HT RN to encourage the [place] to call Home Telehealth for assistance if/when needed to coordinate care. 7. HT RN to submit semiannual/on-request summary reports to the primary care provider. [place] is actively enrolled in the Home Telehealth program. Review of data shows the following out of range responses: Patient Name: ROBBIE HUANG Disease(s): Hypertension Date Range: 12/10/2024 - 12/24/2024 Blood Pressure Readings: Date 04:00-12:00 12:00-18:00 18:00-04:00 12/23/24 140/65 70(12:10) 12/21/24 153/71 70(21:27) 12/20/24 140/72 69(20:46) 12/19/24 144/71 60(09:34) 139/67 70(21:31) 12/18/24 124/67 66(09:47) 144/75 63(21:06) 12/17/24 139/72 63(10:39) 145/66 65(21:03) 12/16/24 138/73 66(13:52) 146/71 68(20:51) 12/15/24 144/72 64(21:55) 12/13/24 128/62 63(11:16) 12/12/24 143/67 65(10:00) 134/60 68(21:57) 12/11/24 131/67 67(10:28) 134/64 73(20:59) 12/10/24 126/75 94(20:58) 144/73 82(19:18) [place] Average Report Sys/[place] BP-HR Average 139/69 69 High 153/75 94 Low 124/60 60 ====== Assessment/Intervention( s)/Plan: [place] called in and stated that he could not believe that it is taking all the way until January to get an appt with a bias machine operator helper. He stated that over the weekend he lost feeling in his big toe due to there being so much hard fluid in his legs and feet. He stated that he propped them up and eventually was able to lose the numbness in his toes. He stated that he is out and about right now and his legs seem okay. But he does not understand why that it is a daily problem for the fluid in his legs and feet to get so bad . He thinks he needs a fluid pill . He denies any other concerns at this time. Instructed that if he looses feeling again in his feet/legs again, can report to ED to futher evaluate bloodflow. He appreciated assistance. ===== PROVIDER: - Data update above - with continued concerns for BLE swelling - over the weekend did lose feeling in toes due to increased swelling - requesting fluid pill or something just anything to help this - upset not able to get in to cardiology until January - Please alert any changes/recs to HT RN, thanks! /jack/ GARCIA BRUNNER, MSN, RN-BC BLUEPRINT BLOCKER Signed: 12/25/2024 13:45 Receipt Acknowledged By: 12/25/2024 13:58 /jack/ Farhat Briggs MD Primary Care Attending 12/25/2024 ADDENDUM STATUS: COMPLETED pt already established cardiac pt and testing didn't show any significant changes. As per prior note, if ongoing BLE, would recommend FLORENCE and venous duplex. Fluid pills are not indicated unless kidney, heart or liver failure, none at the level that would indicate med at this point and not used for BLE edema. Will set up venous duplex and ABIs as likely hasn't received 12/14 letter yet. /earline Briggs MD Primary Care Attending Signed: 12/25/2024 13:58 Receipt Acknowledged By: * AWAITING SIGNATURE * GARCIA BRUNNER KATLYNN M [place] [facility]
--- OUTSIDE RECORDS SUMMARY | 2024-12-25 09:46 | XMS_ITS | Encounter Summary ---
Author Name [facility] [place] [facility] [place] Address [address] [place] [address] Care Team Providers Care Photographic Specialist Name Role Phone JORDYN DALIA Primary Care [...] AUTOM OTIVE - RETI Jul 25, 2018 [id number] MALUTI PERKINS SPOUSE MEDICARE (WNR) MEDICARE (M) PART B Jan 22, 2007 PART B [id number] MALUJUSTYNA TINAJERO RGE PATIENT MEDICARE (WNR) MEDICARE (M) PART A Sep 22, 2005 PART A [id number] REINAJUSTYNA AKBAR PATIENT FOR LIFE TRICA RE FOR LIFE Jul 25, 2017 FOR LIFE [id number] ROBBIE HUANG JR PATIENT Selected Encounter This section includes the information on record at [place] for the Encounter. Date/Time Encounter Type Encounter Description Reason Provider Source Dec 25, 2024 01:46 PM PH1 ASSMT&MGMT NQHP 5-10 TELEPHONE BY STAFF ICD-10-CM I10 Essential (primary) hypertension KEEGAN BRUNNER E Encounter Template Text not used by [place] Assessments - Encounter Diagnoses This section includes the primary and secondary diagnoses documented for the Encounter. Date/Time Primary/Secondary Diagnosis Diagnosis Name Provider Source Dec 25, 2024 01:46 PM PRIMARY Essential (primary) hypertension SRINIVASAN BRUNNER [facility] Plan of Treatment: Future Appointments (+ 6 months) and Future Tests (+/- 45 days) The Plan of Treatment section includes future care activities for the patient [facility] [place] [facility] This section includes future appointments and future orders which are active, pending or scheduled. Future Appointments This section includes appointments that were scheduled to occur 6 months from the date of the Encounter, up to a maximum of 20 appointments. The data comes from all [facility]. Appointment Date/Time Appointment Type Appointme nt Facility Name Jan 04, 2025 01:30 PM AMBULATORY [facility] Jan 31, 2025 03:00 PM AMBULATORY - MEDICINE [facility] Feb 05, 2025 01:00 PM AMBULATORY - MEDICINE [facility] Feb 05, 2025 02:00 PM AMBULATORY - MEDICINE [facility] Active, Pending, and Scheduled Orders This section includes a listing of several types of active, pending, and scheduled orders, including clinic medications orders, diagnostic test orders, procedure orders and consult orders; where the start date of the order is 45 days before the date of the Encounter or 45 days after the date of theEncounter. The data comes from all [facility]. Test Date/Time Test Type Test Details Facility Name Jan 04, 2025 12:00 AM Imaging - Vascular Lab Order SEGMENTAL PRESS[facility], [facility] Jan 04, 2025 12:00 AM Imaging - Vascular Lab Order [facility] Feb 01, 2025 12:00 AM Laboratory - Chemi stry Order PANEL 4 [id number] SP ONCE [facility] Feb 01, 2025 12:00 AM Laboratory - Chemi stry Order CREATININE URINE SP ONCE [facility] Feb 01, 2025 12:00 AM Laboratory - Chemi stry Order TOTAL PROTEIN URINE SP ONCE [facility] Feb 01, 2025 12:00 AM Laboratory - Chemi stry Order 25-OH VITAMIN D [id number] SP ONCE [facility] Feb 01, 2025 12:00 AM Laboratory - Chemi stry Order URINALYSIS URINE PATIENT WAITING SP ONCE [facility] Feb 01, 2025 12:00 AM Laboratory - Chemi stry Order PTH INTACT (MCCALL) [id number]-[id number] SP ONCE [facility] Feb 01, 2025 12:00 AM Laboratory - Chemi stry Order CBC/PLT [id number] BLOOD SP ONCE [facility] Lab Results: +/- 30 days of the encounter This section includes the Chemistry and Hematology Lab Results on record with [place] for the patient. Radiology Reports and Pathology Reports are provided separately, in subsequent sections. Lab Results This section contains the Chemistry/Hematology Results that were resulted 30 days before or 30 daysafter the date of the Encounter. Date/Time Source Result Type Result - Unit Interpretation Reference Range Specimen Type Comment December 03, 2024 02:03 PM [facility] OWN PROTEIN ELECTROPHORESIS URINE Specimen Type: URINE No comment entered. Ordering Provider: DALIA COBB Report Released Date/Time: December 03, 2024 01:24 PM Reporting Lab: [facility] [address] [address] Performing Lab: [facility] [address] [address] TOTAL PROTEIN 17.0 mg/dL Not Estab. .ALBUMIN ELEC 29.4 .ALPHA 1 ELEC 5.2 .ALPHA 2 ELEC 21.5 .BETA ELEC 19.7 .GAMMA ELEC 24.2 .M-SPIKE Not Observed Not Observed December 03, 2024 02:03 PM [facility] TOTAL PROTEIN URINE Specimen Type: URINE No comment entered. Ordering Provider: DALIA COBB Report Released Date/Time: December 03, 2024 01:24 PM Reporting Lab: [address] [address] Performing Lab: [place] [phone] TOTAL PROTEIN 16 mg/dL H 0-14 December 03, 2024 02:03 PM [facility] CREATININE URINE Specimen Type: URINE No comment entered. Ordering Provider: DALIA COBB Report Released Date/Time: December 03, 2024 01:24 PM Reporting Lab: [address] [address] Performing Lab: [place] [phone] CREATININE 63.6 mg/dL December 03, 2024 02:03 PM [facility] URINALYSIS URINE Specimen Type: URINE Comment: Microscopic not indicated Ordering Provider: DALIA COBB Report Released Date/Time: December 03, 2024 01:29 PM Reporting Lab: [place] [phone] Performing Lab: [address] [address] URINE COLOR Light Yellow Colorless-Yello w APPEARANCE Clear Clear UROBILINOGEN Normal mg/dL Normal URINE BLOOD Negative Negative URINE BILIRUBIN Negative Negative URINE KETONES Negative mg/dL Negative URINE PROTEIN Negative mg/dL Negative-Tr rachlel URINE PH 5.0 4.5-8.0 URINE NITRITE Negative Negative URINE LEUKOCYTE EST Negative Negative SPECIFIC GRAVITY 1.014 1.005-1.030 URINE GLUCOSE >1000 mg/dL H Negative December 03, 2024 01:45 PM [facility] ANTI-NUCLEAR Ab SERUM Specimen Type: SERUM Comment: Atypical speckled resembling DFS (Dense-Fine Speckled. The DFS pattern has a low prevalence in systemic autoimmune rheumatic diseases. The clinical association remains unclear. Due to its close resemblance to other patterns of clinical relevance, (i.e. Homogeneous, speckled, and mixed patterns) follow-up testing may be recommended. ANTI-NUCLEAR Ab reported incorrectly as Atypical Speckled by [[id number]]. Changed to 1:320 Atypical Speckled on December 06, 2024@12:59 by [[id number]]. Ordering Provider: DALIA COBB Report Released Date/Time: December 03, 2024 01:38 PM Reporting Lab: [place] [phone] Performing Lab: [place] [address] ANTI-NUCLEAR Ab 1:320 Atypical Speckled <1:80 December 03, 2024 01:45 PM [facility] ROSALIE (SERUM) SERUM Specimen Type: SERUM Comment: BNP results less than or equal to 100 pg/ml are new accounts banking representative of normal values in patients without CHF. BNP results greater than 100 pg/ml are considered abnormal and suggestive of CHF. Higher BNP concentrations in the first 72 hours after Acute Coronary Syndrome are associated with an increased risk of , myocardial infarction and CHF. Ordering Provider: DALIA COBB Report Released Date/Time: December 03, 2024 01:24 PM Reporting Lab: [address] [address] Performing Lab: [address] [address] .ALBUMIN ELEC 3.6 g/dL 2.9-4.4 .ALPHA 1 [...] INTERPRETATION Comment December 03, 2024 01:45 PM [facility] JORDAN SCREEN SERUM Specimen Type: SERUM No comment entered. Ordering Provider: DALIA COBB Report Released Date/Time: December 03, 2024 01:38 PM Reporting Lab: [address] [address] Performing Lab: [address] [address] JORDAN SCREEN Negative Negative December 03, 2024 01:45 PM [facility]ur[facility] Operating [facility] BNP (Nanosphere) PLASMA Specimen Type: PLASMA Comment: BNP results less than or equal to 100 pg/ml are new accounts banking representative of normal values in patients without CHF. BNP results greater than 100 pg/ml are considered abnormal and suggestive of CHF. Higher BNP concentrations in the first 72 hours after Acute Coronary Syndrome are associated with an increased risk of , myocardial infarction and CHF. Ordering Provider: DALIA COBB Report Released Date/Time: December 03, 2024 01:24 PM Reporting Lab: [address] [address] Performing Lab: [address] [address] BNP (MCCALL) 225 pg/mL H 0-100 December 03, 2024 01:45 PM [facility]ITALAkiban TechnologiesEL[facility] CK TOTAL PLASMA Specimen Type: [...] December 03, 2024 01:33 PM Reporting Lab: [address] [address] Performing Lab: [address] [address] CK TOTAL 76 U/L 30-200 December 03, 2024 01:45 PM [facility]ITAL[facility] PANEL 5 PLASMA Specimen Type: PLASM [...] December 03, 2024 01:24 PM Reporting Lab: [address] [address] Performing Lab: [address] [address] CREATININE 2.05 mg/dL H 0.72-1.25 UREA NITROGEN [...] December 03, 2024 01:45 PM [facility] CBC/PLT BLOOD Specimen Type: BLOOD No comment entered. Ordering Provider: DALIA COBB Report Released Date/Time: December 03, 2024 01:33 PM Reporting Lab: [address] [address] Performing Lab: [address] [address] WBC 5.6 10*3/uL 5.0-10.0 RBC 4.24 10*6/uL L 4.6-6.2 HGB 12.8 g/dL L 14.0-18.0 HCT 39.4 L 42.0-52.0 MCV 92.9 fL 80.0-94.0 MCH 30.2 pg 27.0-31.0 MCHC 32.5 g/dL 32.0-36.0 PLT 248 10*3/uL 150-450 MPV 10.2 fL 9.0-13.1 RDW 14.2 11.0-16.0 NRBC 0.0 0.0-0.0 December 03, 2024 01:45 PM [facility] AUTOMATED DIFF BLOOD Specimen Type: BLOOD No comment entered. Ordering Provider: DALIA COBB Report Released Date/Time: December 03, 2024 01:33 PM Reporting Lab: [address] [address] Performing Lab: [address] [address] A-LYMPH % 22.1 L 24.0-44.0 A-MONO % [...] and tobacco- related health factors from the [facility] where the Encounter took place. Current Smoking Status This section includes the most current smoking, or tobacco-related health factor, from the [place] facility where the Encounter took place. Date/Time Current Smoking Status Comment Kelechi ity May 25, 2023 01:30 PM VA-TOBACCO FORMER USER [facility] Tobacco Use History This section includes a history of the smoking, or tobacco-related health factors, that were collected on or before the date of the Encounter. The data comes from the [place] facility where the Encounter took place. Date/Time Smoking Status/Tobacco Use Comment Ricardo acility May 25, 2023 01:30 PM VA-TOBACCO QUIT 15 YRS OR MORE [facility] Jun 18, 2022 01:30 PM VA-TOBACCO FORMER USER [facility] Jun 18, 2022 01:30 PM VA-TOBACCO QUIT 15 YRS OR MORE [facility] Jun 29, 2021 03:00 PM VA-TOBACCO FORMER USER [facility] Jun 29, 2021 03:00 PM VA-TOBACCO QUIT 15 YRS OR MORE [facility] Jul 28, 2020 09:30 AM VA-TOBACCO FORMER USER [facility] Jul 28, 2020 09:30 AM VA-TOBACCO QUIT 15 YRS OR MORE [facility] Jul 09, 2019 03:25 PM VA-TOBACCO NEVER USED [facility] Aug 24, 2018 02:06 PM VA-TOBACCO FORMER USER [facility] Aug 24, 2018 02:06 PM VA-TOBACCO QUIT 15 YRS OR MORE [facility] Sep 22, 2017 07:57 AM V9 LIFETIME NON-USER OF TOBACCO [facility] December 15, 2015 08:07 AM V9 LIFETIME NON-USER OF TOBACCO [facility] Jun 14, 2014 07:48 AM V9 LIFETIME NON-USER OF TOBACCO [facility] Jun 07, 2013 10:08 AM V9 LIFETIME NON-USER OF TOBACCO [facility] May 29, 2012 10:26 AM V9 LIFETIME NON-USER OF TOBACCO [facility] Nov 22, 2011 02:23 PM V9 LIFETIME NON-USER OF TOBACCO [facility] Oct 23, 2010 09:22 AM V9 QUIT TOBACCO >7 YEARS AGO [facility] May 30, 2007 03:08 PM V9 LIFETIME NON-USER OF TOBACCO [facility] Radiology Reports: +/- 30 days of the [...] the Encounter. The data comes from all [place] treatment facilities. Date/Time Radiology Report Provider Source December 14, 2024 07:49 AM CARD. STRESS TEST W/TREADMILL/...: ROBBIE HUANG [id number] -1940 M Exm Date: DECEMBER 14, 2024@07:49 Req Phys: DALIA COBB [facility] (Req'g Loc) Img Loc: NUCLEAR MEDICINE Service: [place] [address] (Case [id number] COMPLETE)CARD. STRESS TEST W/TREADMILL/...(NM Detailed) CPT:07012 Reason for Study: SEE CLINICAL HISTORY Clinical History: Cardiology approval by: [facility] CONNECTED? No Active Outpatient Medications (including [...] 14, 2024 Date Verified: DECEMBER 14, 2024 General Partner E-Sig: Report: STUDY: GXT with vasodilator REPORT: [...] Staff: CHAO ORR APRN, Cardiology Verified by jewelry inspector for CHAO ORR /CHAO GIRON-ISMAEL [facility] December 14, 2024 07:49 AM [id number] REGADENOSON 0.1MG X4 (LEXISCAN): ROBBIE HUANG [id number] 1940 M Exm Date: DECEMBER 14, 2024@07:49 Req Phys: DALIA COBB Loc: [facility] PACT [place] 16-1 (Req'g Loc) Img Loc: NUCLEAR MEDICINE Service: [place] [address] (Case [id number] COMPLETE)[id number] REGADENOSON 0.1MG X4 (STEPHON(NM Detailed) CPT:J2785 [...] 14, 2024 Date Verified: DECEMBER 14, 2024 General Partner E-Sig: Report: STUDY: GXT with vasodilator REPORT: [...] Staff: CHAO ORR APRN, Cardiology Verified by jewelry inspector for CHAO ORR /CHAO GIRON-D [facility] December 14, 2024 07:49 AM CARD. STRESS TEST W/TREADMILL/...: ROBBIE HUANG [id number] -1940 M Exm Date: DECEMBER 14, 2024@07:49 Req Phys: DALIA COBB Loc: [facility] WHITNEY 16-1 (Req'g Loc) Im Loc: NUCLEAR MEDICINE Service: [place] [address] (Case [id number] COMPLETE)CARD. STRESS TEST W/TREADMILL/...(NM Detailed) CPT:31982 Proc Modifiers : GXT Reason for Study: SEE CLINICAL HISTORY Clinical History: Cardiology approval by: [facility] SERVICE CONNECTED? No Active Outpatient Medications [...] 14, 2024 Date Verified: DECEMBER 14, 2024 General Partner E-Sig: Report: [facility], [place], [place] STUDY: Regadenoson (Lexiscan) SPECT Tc-99m myoview [...] performed with tomographic and three-dimensional reconstructions with Verve Mobile/CT 640 system. Exercise: Patient exercised for 6 [...] data sets in addition to the conventional hcf-yiyxcqccdmg-ftouichwp images. Both filtered back projection and iterative [...] ventricular cavity. 4. SPECT images: Attenuation-corrected and ukj-fjktldomcaf-qodnabdct SPECT images were evaluated. SPECT images demonstrate [...] JEB SANTOS MD, CARDIOLOGY ATTENDING Verified by jewelry inspector for JEB SANTOS MD /JEB MANCILLA-ISMAEL [facility] December 14, 2024 07:49 AM 40704(D) MYOCARDIA L SPECT(MULTIPLE): ROBBIE HUANG [id number] -1940 M Exm Date: DECEMBER 14, 2024@07:49 Req Phys: DALIA COBB Pat Loc: [facility] PACT [place] 16-1 (Req'g Loc) Img Loc: NUCLEAR MEDICINE Service: [place] [address] (Case [id number] COMPLETE)87856(D) MYOCARDIAL SPECT(MULTIPL(NM Detailed) CPT:82888 Proc Modifiers : Lexiscan (Regadenoson) CPT Modifiers [...] 14, 2024 Date Verified: DECEMBER 14, 2024 General Partner E-Sig: Report: [facility], [place], [place] STUDY: Regadenoson (Lexiscan) SPECT Tc-99m myoview [...] performed with tomographic and three-dimensional reconstructions with Metropia NM/CT 640 system. Exercise: Patient exercised for [...] data sets in addition to the conventional jgp-dvnfiidyxcn-xwibkkoys images. Both filtered back projection and iterative [...] ventricular cavity. 4. SPECT images: Attenuation-corrected and qbz-ehnpvztzovi-jtackvphz SPECT images were evaluated. SPECT images demonstrate [...] JEB SANTOS MD, CARDIOLOGY ATTENDING Verified by jewelry inspector for JEB SANTOS MD /JEB MANCILLA-D [facility] December 14, 2024 07:49 AM MYOVIEW(1): ROBBIE HUANG [id number] -1940 [facility] Date: DECEMBER 14, 2024@07:49 Req Phys: DALIA COBB [facility] Im Loc: NUCLEAR MEDICINE Service: [place] [address] (Case [id number] COMPLETE)MYOVIEW(1) (NM Detailed) CPT:A9502 Reason for Study: [...] 14, 2024 Date Verified: DECEMBER 14, 2024 General Partner E-Sig: Report: [facility], [place], [place] STUDY: Regadenoson (Lexiscan) SPECT Tc-99m myoview [...] performed with tomographic and three-dimensional reconstructions with Verve Mobile/CT 640 system. Exercise: Patient exercised for 6 [...] data sets in addition to the conventional zmb-hsgcfjvknfo-fhzetxguw images. Both filtered back projection and iterative [...] ventricular cavity. 4. SPECT images: Attenuation-corrected and ivx-jmshwfehdpm-xeetxbzrf SPECT images were evaluated. SPECT images demonstrate [...] JEB SANTOS MD, CARDIOLOGY ATTENDING Verified by jewelry inspector for JEB SANTOS MD /JEB MANCILLA-ISMAEL [facility] December 14, 2024 07:49 AM MYOVIEW(2): ROBBIE HUANG [id number] -1940 M Exm Date: DECEMBER 14, 2024@07:49 Req Phys: JORDYNMELVINDALIARA Raul Mora Loc: [facility] PACT [facility] 16-1 (Req'g Loc) Img Loc: NUCLEAR MEDICINE Service: [place] [address] (Case [id number] COMPLETE)MYOVIEW(2) (NM Detailed) CPT:A9502 Reason for Study: [...] 14, 2024 Date Verified: DECEMBER 14, 2024 General Partner E-Sig: Report: [facility], [place], [place] STUDY: Regadenoson (Lexiscan) SPECT Tc-99m myoview [...] performed with tomographic and three-dimensional reconstructions with iconDiala NM/CT 640 system. Exercise: Patient exercised for [...] data sets in addition to the conventional jnl-dcptavrziwa-ikohmukkm images. Both filtered back projection and iterative [...] ventricular cavity. 4. SPECT images: Attenuation-corrected and frs-anljyjjxdtw-qfbetrffm SPECT images were evaluated. SPECT images demonstrate [...] JEB SANTOS MD, CARDIOLOGY ATTENDING Verified by jewelry inspector for JBE SANTOS MD /JEB MANCILLA-CDD [facility] December 14, 2024 07:49 AM [id number] REGADENOSON 0.1MG X1 (LEXISCAN): ROBBIE HUANGALEM [id number] -1940 M Exm Date: DECEMBER 14, 2024@07:49 Req Phys: DALIA COBB Pat Loc: [facility] PACT [place] 16-1 (Req'g Loc) Img Loc: NUCLEAR MEDICINE Service: [place] [address] (Case [id number] COMPLETE)[id number] REGADENOSON 0.1MG X1 (STEPHON(NM Detailed) CPT:J2785 [...] 14, 2024 Date Verified: DECEMBER 14, 2024 General Partner E-Sig: Report: [facility], [place], [place] STUDY: Regadenoson (Lexiscan) SPECT Tc-99m myoview [...] performed with tomographic and three-dimensional reconstructions with Metropia NM/CT 640 system. Exercise: Patient exercised for [...] data sets in addition to the conventional ifv-ldojtffoakr-resibeovd images. Both filtered back projection and iterative [...] ventricular cavity. 4. SPECT images: Attenuation-corrected and lwp-dlksnuunrbh-ribdarqon SPECT images were evaluated. SPECT images demonstrate [...] JEB SANTOS MD, CARDIOLOGY ATTENDING Verified by jewelry inspector for JEB SANTOS MD /JEB MANCILLA-D [facility] December 14, 2024 07:49 AM TC-99M X1 FROM NON -HEU SOURCE: ROBBIE HUANG [id number] -1940 M Ex Date: DECEMBER 14, 2024@07:49 Req Phys: DALIA COBB [facility] Loc: NUCLEAR MEDICINE Service: [place] [address] (Case [id number] COMPLETE)TC-99M X1 FROM NON-HEU SOURCE (NM Detailed) CPT:Q9969 Reason for Study: SEE CLINICAL HISTORY Clinical History: Cardiology approval by: [facility] SERVICE CONNECTED? No Active Outpatient Medications [...] 14, 2024 Date Verified: DECEMBER 14, 2024 General Partner E-Sig: Report: [facility], [place] STUDY: Regadenoson (Lexiscan) SPECT Tc-99m myoview [...] performed with tomographic and three-dimensional reconstructions with Metropia NM/CT 640 system. Exercise: Patient exercised for [...] data sets in addition to the conventional uyj-jjbjgwmpszp-qeqhzmajf images. Both filtered back projection and iterative [...] ventricular cavity. 4. SPECT images: Attenuation-corrected and hml-qxtavfnmyac-ntiuctdwv SPECT images were evaluated. SPECT images demonstrate [...] JEB SANTOS MD, CARDIOLOGY ATTENDING Verified by jewelry inspector for JEB SANTOS MD /JEB MANCILLA-CDD [facility] December 14, 2024 07:49 AM [id number] REGADENOSON 0.1MG X2 (LEXISCAN): ROBBIE HUANG [id number] 1940 M Exm Date: DECEMBER 14, 2024@07:49 Req Phys: JORDYNDALIA Carter Pat Loc: [facility] PACT [place] 16-1 (Req'g Loc) Img Loc: NUCLEAR MEDICINE Service: Unknown [place] [id number] (Case [id number] COMPLETE)[id number] REGADENOSON 0.1MG X2 (STEPHON(NM Detailed) CPT:J2785 [...] 14, 2024 Date Verified: DECEMBER 14, 2024 General Partner E-Sig: Report: [place], [place] STUDY: Regadenoson (Lexiscan) SPECT Tc-99m myoview [...] performed with tomographic and three-dimensional reconstructions with Verve Mobile/CT 640 system. Exercise: Patient exercised for 6 [...] data sets in addition to the conventional eni-tivdulgiurd-imjsfuryv images. Both filtered back projection and iterative [...] ventricular cavity. 4. SPECT images: Attenuation-corrected and pyw-kmpgjjuqmew-cqbzyozmv SPECT images were evaluated. SPECT images demonstrate [...] JEB SANTOS MD, CARDIOLOGY ATTENDING Verified by jewelry inspector for JEB SANTOS MD /JEB MANCILLA-CDD [facility] December 14, 2024 07:49 AM [id number] REGADENOSON 0.1MG X3 (LEXISCAN): ROBBIE HUANG [id number] -1940 M Exm Date: DECEMBER 14, 2024@07:49 Req Phys: DALIA COBB Loc: [facility] PACT [place] 16-1 (Req'g Loc) Img Loc: NUCLEAR MEDICINE Service: [place] [address] (Case [id number] COMPLETE)[id number] REGADENOSON 0.1MG X3 (STEPHON(NM Detailed) CPT:J2785 [...] 14, 2024 Date Verified: DECEMBER 14, 2024 General Partner E-Sig: Report: [facility], [place] STUDY: Regadenoson (Lexiscan) SPECT Tc-99m myoview [...] performed with tomographic and three-dimensional reconstructions with Metropia NM/CT 640 system. Exercise: Patient exercised for [...] data sets in addition to the conventional hlw-vukquumqgmd-zxmssfzog images. Both filtered back projection and iterative [...] ventricular cavity. 4. SPECT images: Attenuation-corrected and kfz-ojouugouotw-qmyaonkaf SPECT images were evaluated. SPECT images demonstrate [...] JEB SANTOS MD, CARDIOLOGY ATTENDING Verified by jewelry inspector for JEB SANTOS MD /JEB MANCILLA-CDD [facility] December 14, 2024 07:49 AM TC-99M X2 FROM NON -HEU SOURCE: ROBBIE HUANG [id number] -1940 M [facility] Date: DECEMBER 14, 2024@07:49 Req Phys: DALIA COBB [facility] (Req'g Loc) [facility] Loc: NUCLEAR MEDICINE Service: Unknown [place] [id number] (Case [id number] COMPLETE)TC-99M X2 FROM NON-HEU SOURCE (NM Detailed) CPT:Q9969 Reason for Study: SEE CLINICAL HISTORY Clinical History: [facility] No Active Outpatient Medications [...] 14, 2024 Date Verified: DECEMBER 14, 2024 General Partner E-Sig: Report: [facility], [place] STUDY: Regadenoson (Lexiscan) SPECT Tc-99m myoview [...] performed with tomographic and three-dimensional reconstructions with Verve Mobile/CT 640 system. Exercise: Patient exercised for 6 [...] data sets in addition to the conventional dzf-yiutthesfxr-ikbylorff images. Both filtered back projection and iterative [...] ventricular cavity. 4. SPECT images: Attenuation-corrected and pzk-pguzatibhla-jqilvwwtt SPECT images were evaluated. SPECT images demonstrate [...] JEB SANTOS MD, CARDIOLOGY ATTENDING Verified by jewelry inspector for JEB SANTOS MD /JEB MANCILLA-D [facility] Encounter Notes: All associated encounter notes This section contains the clinical notes associated to the Encounter. Date/Time Encounter Note(s) Provider Source Dec 25, 2024 01:46 PM CARE COORDINATION HOME TELEHEALTH NOTE: LOCAL TITLE: HT NOTE STANDARD TITLE: CARE COORDINATION HOME TELEHEALTH NOTE DATE OF NOTE: DEC 25, 2024@13:46 ENTRY DATE: DEC 25, 2024@13:46:20 AUTHOR: GARCIA BRUNNER EXP COSIGNER: URGENCY: STATUS: COMPLETED [place] called in and stated that since I could have some serious issue with my heart should I cancel my dentist appt . Informed that it is still okay to continue with dental appt and call with any further concerns. He appreciated. /jack/ GARCIA BRUNNER MSN, RN-BC [employer] Signed: 12/25/2024 13:47 GARCIA BRUNNER [facility]
--- OUTSIDE RECORDS SUMMARY | 2024-12-26 11:00 | XMS_ITS | Encounter Summary ---
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 Date/Time Encounter Type Encounter Description Reason Provider Source Dec 26, 2024 03:00 PM PH1 ASSMT&MGMT NQHP 5-10 TELEPHONE BY STAFF ICD-10-CM I10 Essential (primary) hypertension KEEGAN BRUNNER E Encounter Template Text not used by [place] Assessments - Encounter Diagnoses This section includes the primary and secondary diagnoses documented for the Encounter. Date/Time Primary/Secondary Diagnosis Diagnosis Name Provider Source Dec 26, 2024 03:00 PM PRIMARY Essential (primary) hypertension SRINIVASAN BRUNNER [facility] Plan of Treatment: Future Appointments (+ 6 months) and Future Tests (+/- 45 days) The Plan of Treatment section includes future care activities for the patient from all [facility] This section includes future appointments and future orders which are active, pending or scheduled. Future Appointments This section includes appointments that were scheduled to occur 6 months from the date of the Encounter, up to a maximum of 20 appointments. The data comes from all [place] treatment [facility]. Appointment Date/Time Appointment Type Appointme nt Facility Name Jan 04, 2025 01:30 PM [facility] Jan 31, 2025 03:00 PM AMBULATORY - MEDICINE [facility] Feb 05, 2025 01:00 PM AMBULATORY - MEDICINE [facility] Feb 05, 2025 02:00 PM AMBULATORY - MEDICINE [facility] Active, Pending, and Scheduled Orders This section includes a listing of several types of active, pending, and scheduled orders, including clinic medications orders, diagnostic test orders, procedure orders and consult orders; where the start date of the order is 45 days before the date of the Encounter or 45 days after the date of theEncounter. The data comes from all [facility]. Test Date/Time Test Type Test Details Facility Name Jan 04, 2025 12:00 AM Imaging - Vascular Lab Order SEGMENTAL PRESSURES, [facility] Jan 04, 2025 12:00 AM Imaging - Vascular Lab Order VENOUS DUPLEX LOWER EXT BILAT [facility] Feb 01, 2025 12:00 AM Laboratory - Chemi stry Order PANEL 4 VBD-YCOTR-GGINFD SP ONCE [facility] Feb 01, 2025 12:00 AM Laboratory - Chemi stry Order CREATININE URINE SP ONCE [facility] Feb 01, 2025 12:00 AM Laboratory - Chemi stry Order 25-OH VITAMIN D DNX-LYMB-ITZOD SP ONCE [facility] Feb 01, 2025 12:00 AM Laboratory - Chemi stry Order URINALYSIS URINE PATIENT WAITING SP ONCE [facility] Feb 01, 2025 12:00 AM Laboratory - Chemi stry Order TOTAL PROTEIN URINE SP ONCE [facility] Feb 01, 2025 12:00 AM Laboratory - Chemi stry Order PTH INTACT (MCCALL) ETX-[id number] SP ONCE [facility] Feb 01, 2025 12:00 AM Laboratory - Chemi stry Order CBC/PLT [id number]-[id number] BLOOD SP ONCE [facility] Lab Results: +/- 30 days [...] December 03, 2024 01:24 PM Reporting Lab: [facility] [address] [address] Performing Lab: [facility] [address] [address] TOTAL PROTEIN 17.0 mg/dL Not Estab. .ALBUMIN ELEC 29.4 .ALPHA 1 ELEC 5.2 .ALPHA 2 ELEC 21.5 .BETA ELEC 19.7 .GAMMA ELEC 24.2 .M-SPIKE Not Observed Not Observed December 03, 2024 02:03 PM [facility] TOTAL PROTEIN URINE Specimen Type: URINE No comment entered. Ordering Provider: FARHAT BRIGGS Report Released Date/Time: December 03, 2024 01:24 PM Reporting Lab: [address] [address] Performing Lab: [place] [id number] TOTAL PROTEIN 16 mg/dL H 0-14 December 03, 2024 02:03 PM [facility] CREATININE URINE Specimen Type: URINE No comment entered. Ordering Provider: FARHAT BRIGGS Report Released Date/Time: December 03, 2024 01:24 PM Reporting Lab: [address] [address] Performing Lab: [place] [phone] CREATININE 63.6 mg/dL December 03, 2024 02:03 PM [facility] URINALYSIS URINE Specimen Type: URINE Comment: Microscopic not indicated Ordering Provider: FARHAT BRIGGS Report Released Date/Time: December 03, 2024 01:29 PM Reporting Lab: [place] [phone] Performing Lab: [address] [address] URINE COLOR Light Yellow Colorless-Yello w APPEARANCE Clear Clear UROBILINOGEN Normal mg/dL Normal URINE BLOOD Negative Negative URINE BILIRUBIN Negative Negative URINE KETONES Negative mg/dL Negative URINE PROTEIN Negative mg/dL Negative-Tr rachell URINE PH 5.0 4.5-8.0 URINE NITRITE Negative Negative URINE LEUKOCYTE EST Negative Negative SPECIFIC GRAVITY 1.014 1.005-1.030 URINE GLUCOSE >1000 mg/dL H Negative December 03, 2024 01:45 PM [facility] ANTI-NUCLEAR Ab SERUM Specimen Type: SERUM Comment: Atypical speckled resembling DFS (Dense-Fine Speckled. The DFS pattern has a low prevalence in systemic autoimmune rheumatic diseases. The clinical association remains unclear. Due to its close resemblance to other patterns of clinical relevance, (i.e. Homogeneous, speckled, and mixed patterns) follow-up testing may be recommended. ANTI-NUCLEAR Ab reported incorrectly as Atypical Speckled by [[id number]]. Changed to 1:320 Atypical Speckled on December 06, 2024@12:59 by [[id number]]. Ordering Provider: FARHAT BRIGGS Report Released Date/Time: December 03, 2024 01:38 PM Reporting Lab: [place] [phone] Performing Lab: [place] [address] ANTI-NUCLEAR Ab 1:320 Atypical Speckled <1:80 December 03, 2024 01:45 PM [facility] ROSALIE (SERUM) SERUM Specimen Type: SERUM Comment: BNP results less than or equal to 100 pg/ml are customer account representative of normal values in patients without CHF. BNP results greater than 100 pg/ml are considered abnormal and suggestive of CHF. Higher BNP concentrations in the first 72 hours after Acute Coronary Syndrome are associated with an increased risk of , myocardial infarction and CHF. Ordering Provider: FARHAT BRIGGS Report Released Date/Time: December 03, 2024 01:24 PM Reporting Lab: [address] [address] Performing Lab: [address] [address] .ALBUMIN ELEC 3.6 g/dL 2.9-4.4 .ALPHA 1 [...] INTERPRETATION Comment December 03, 2024 01:45 PM [facility] JORDAN SCREEN SERUM Specimen Type: SERUM No comment entered. Ordering Provider: FARHAT BRIGGS Report Released Date/Time: December 03, 2024 01:38 PM Reporting Lab: [address] [address] Performing Lab: [address] [address] JORDAN SCREEN Negative Negative December 03, 2024 01:45 PM [facility] BNP (GRUZOBZOR) PLASMA Specimen Type: PLASMA Comment: BNP results less than or equal to 100 pg/ml are customer account representative of normal values in patients without CHF. BNP results greater than 100 pg/ml are considered abnormal and suggestive of CHF. Higher BNP concentrations in the first 72 hours after Acute Coronary Syndrome are associated with an increased risk of , myocardial infarction and CHF. Ordering Provider: FARHAT BRIGGS Report Released Date/Time: December 03, 2024 01:24 PM Reporting Lab: [address] [address] Performing Lab: [address] [address] BNP (MCCALL) 225 pg/mL H 0-100 December 03, 2024 01:45 PM [facility] PANEL 5 PLASMA Specimen Type: [...] 03, 2024 01:24 PM Reporting Lab: [address] [address] Performing Lab: [address] [address] CREATININE 2.05 mg/dL H 0.72-1.25 UREA NITROGEN [...] eGFR (CKD-EPI) December 03, 2024 01:45 PM [facility] TOTAL PLASMA Specimen Type: PLASM A [...] 03, 2024 01:33 PM Reporting Lab: [address] [address] Performing Lab: [address] [address] CK TOTAL 76 U/L 30-200 December 03, 2024 01:45 PM [facility] CBC/PLT BLOOD Specimen Type: BLOOD No comment entered. Ordering Provider: FARHAT BRIGGS Report Released Date/Time: December 03, 2024 01:33 PM Reporting Lab: [address] [address] Performing Lab: [address] [address] WBC 5.6 10*3/uL 5.0-10.0 RBC 4.24 10*6/uL L 4.6-6.2 HGB 12.8 g/dL L 14.0-18.0 HCT 39.4 L 42.0-52.0 MCV 92.9 fL 80.0-94.0 MCH 30.2 pg 27.0-31.0 MCHC 32.5 g/dL 32.0-36.0 PLT 248 10*3/uL 150-450 MPV 10.2 fL 9.0-13.1 RDW 14.2 11.0-16.0 NRBC 0.0 0.0-0.0 December 03, 2024 01:45 PM [facility] AUTOMATED DIFF BLOOD Specimen Type: BLOOD No comment entered. Ordering Provider: FARHAT BRIGGS Report Released Date/Time: December 03, 2024 01:33 PM Reporting Lab: [address] [address] Performing Lab: [address] [address] A-LYMPH % 22.1 L 24.0-44.0 A-MONO % [...] and tobacco- related health factors from the [facility] where the Encounter took place. Current Smoking Status This section includes the most current smoking, or tobacco-related health factor, from the [place] facility where the Encounter took place. Date/Time Current Smoking Status Comment Kelechi ity May 25, 2023 01:30 PM VA-TOBACCO QUIT 15 YRS OR MORE [facility] Tobacco Use History This section includes a history of the smoking, or tobacco-related health factors, that were collected on or before the date of the Encounter. The data comes from the [place] facility where the Encounter took place. Date/Time Smoking Status/Tobacco Use Comment Ricardo acility May 25, 2023 01:30 PM VA-TOBACCO QUIT 15 YRS OR MORE [facility] Jun 18, 2022 01:30 PM VA-TOBACCO FORMER USER [facility] Jun 18, 2022 01:30 PM VA-TOBACCO QUIT 15 YRS OR MORE [facility] Jun 29, 2021 03:00 PM VA-TOBACCO FORMER USER [facility] Jun 29, 2021 03:00 PM VA-TOBACCO QUIT 15 YRS OR MORE [facility] Jul 28, 2020 09:30 AM VA-TOBACCO FORMER USER [facility] Jul 28, 2020 09:30 AM VA-TOBACCO QUIT 15 YRS OR MORE [facility] Jul 09, 2019 03:25 PM VA-TOBACCO NEVER USED [facility] Aug 24, 2018 02:06 PM VA-TOBACCO FORMER USER [facility] Aug 24, 2018 02:06 PM VA-TOBACCO QUIT 15 YRS OR MORE [facility] Sep 22, 2017 07:57 AM V9 LIFETIME NON-USER OF TOBACCO [facility] December 15, 2015 08:07 AM V9 LIFETIME NON-USER OF TOBACCO [facility] Jun 14, 2014 07:48 AM V9 LIFETIME NON-USER OF TOBACCO [facility] Jun 07, 2013 10:08 AM V9 LIFETIME NON-USER OF TOBACCO [facility] May 29, 2012 10:26 AM V9 LIFETIME NON-USER OF TOBACCO [facility] Nov 22, 2011 02:23 PM V9 LIFETIME NON-USER OF TOBACCO [facility] Oct 23, 2010 09:22 AM V9 QUIT TOBACCO >7 YEARS AGO [facility] May 30, 2007 03:08 PM V9 LIFETIME NON-USER OF TOBACCO [facility] Radiology Reports: +/- 30 days [...] the Encounter. The data comes from all [place] treatment facilities. Date/Time Radiology Report Provider Source December 14, 2024 07:49 AM CARD. STRESS TEST W/TREADMILL/...: ROBBIE HUANG [id number] -1940 M Exm Date: DECEMBER 14, 2024@07:49 Req Phys: FARHAT BRIGGS [facility]Req[facility] Loc) Img Loc: NUCLEAR MEDICINE Service: [place] [address] (Case [id number] COMPLETE)CARD. STRESS TEST W/TREADMILL/...(NM Detailed) CPT:13801 Reason for Study: SEE CLINICAL HISTORY Clinical History: Cardiology approval by: [facility] SERVICE CONNECTED? No Active Outpatient Medications (including [...] 14, 2024 Date Verified: DECEMBER 14, 2024 Base Ply Hand E-Sig: Report: STUDY: GXT with vasodilator REPORT: [...] Staff: CHAO ORR APRN, Cardiology Verified by clinical education coordinator for CHAO ORR /CHAO GIRON-ISMAEL [facility] December 14, 2024 07:49 AM [id number] REGADENOSON 0.1MG X4 (LEXISCAN): ROBBIE HUANG [id number] 1940 M Exm Date: DECEMBER 14, 2024@07:49 Req Phys: JORDYNFARHAT Abby Loc: [facility] PACT WHITNEY 16-1 (Req'g Loc) Img Loc: NUCLEAR MEDICINE Service: [place] [address] (Case [id number] COMPLETE)[id number] REGADENOSON 0.1MG X4 (STEPHON(NM Detailed) CPT:J2785 [...] 14, 2024 Date Verified: DECEMBER 14, 2024 Base Ply Hand E-Sig: Report: STUDY: GXT with vasodilator REPORT: [...] Staff: CHAO ORR APRN, Cardiology Verified by clinical education coordinator for CHAO ORR /CHAO GIRON-[facility] December 14, 2024 07:49 AM CARD. STRESS TEST W/TREADMILL/...: ROBBIE HUANG [id number] -1940 M Ex Date: DECEMBER 14, 2024@07:49 Req Phys: FARHAT BRIGGS [facility] Im Loc: NUCLEAR MEDICINE Service: [place] [address] (Case [id number] COMPLETE)CARD. STRESS TEST W/TREADMILL/...(NM Detailed) CPT:06939 Proc Modifiers : GXT Reason for Study: SEE CLINICAL HISTORY Clinical History: Cardiology approval by: [facility] SERVICE CONNECTED? No Active Outpatient Medications (including [...] 14, 2024 Date Verified: DECEMBER 14, 2024 Base Ply Hand E-Sig: Report: [facility], [place], [place] STUDY: Regadenoson (Lexiscan) SPECT Tc-99m myoview [...] performed with tomographic and three-dimensional reconstructions with Alektrona/CT 640 system. Exercise: Patient exercised for 6 [...] data sets in addition to the conventional pco-wadsxfgsbvk-qwmqiszxx images. Both filtered back projection and iterative [...] ventricular cavity. 4. SPECT images: Attenuation-corrected and zve-dhchtfcbskt-bnoufgpia SPECT images were evaluated. SPECT images demonstrate [...] JEB SANTOS MD, CARDIOLOGY ATTENDING Verified by clinical education coordinator for JEB SANTOS MD /JEB MANCILLA-CDD [facility] December 14, 2024 07:49 AM 25533(D) MYOCARDIA L SPECT(MULTIPLE): ROBBIE HUANG [id number] -1940 M Exm Date: DECEMBER 14, 2024@07:49 Req Phys: JORDYNFARHAT Carter Pat Loc: [facility] PACT WHITNEY 16-1 (Req'g Loc) Img Loc: NUCLEAR MEDICINE Service: [place] [address] (Case [id number] COMPLETE)78282(D) MYOCARDIAL SPECT(MULTIPL(NM Detailed) CPT:10261 Proc Modifiers : Lexiscan (Regadenoson) CPT Modifiers [...] 14, 2024 Date Verified: DECEMBER 14, 2024 Base Ply Hand E-Sig: Report: [facility], [place], [place] STUDY: Regadenoson (Lexiscan) SPECT Tc-99m myoview [...] performed with tomographic and three-dimensional reconstructions with Intergloss NM/CT 640 system. Exercise: Patient exercised for [...] data sets in addition to the conventional ghr-lhqqywhfgro-qeosbsvyo images. Both filtered back projection and iterative [...] ventricular cavity. 4. SPECT images: Attenuation-corrected and pja-ozprgeysntz-gnrgoxpty SPECT images were evaluated. SPECT images demonstrate [...] JEB SANTOS MD, CARDIOLOGY ATTENDING Verified by clinical education coordinator for JEB SANTOS MD /JEB MANCILLA-[facility] December 14, 2024 07:49 AM MYOVIEW(1): ROBBIE HUANG [id number] -1940 M [facility] Date: DECEMBER 14, 2024@07:49 Req Phys: FARHAT BRIGGS [facility] Img Loc: NUCLEAR MEDICINE Service: [place] [address] (Case [id number] COMPLETE)MYOVIEW(1) (NM Detailed) CPT:A9502 Reason for Study: [...] 14, 2024 Date Verified: DECEMBER 14, 2024 Base Ply Hand E-Sig: Report: [facility], [place], [place] STUDY: Regadenoson (Lexiscan) SPECT Tc-99m myoview [...] performed with tomographic and three-dimensional reconstructions with Intergloss NM/CT 640 system. Exercise: Patient exercised for [...] data sets in addition to the conventional his-essadagdpkg-ztbjosbqa images. Both filtered back projection and iterative [...] ventricular cavity. 4. SPECT images: Attenuation-corrected and ddw-gfawaawwgmv-slklrtxnv SPECT images were evaluated. SPECT images demonstrate [...] JEB SANTOS MD, CARDIOLOGY ATTENDING Verified by clinical education coordinator for JEB SANTOS MD /JEB MANCILLA-ISMAEL [facility] December 14, 2024 07:49 AM MYOVIEW(2): ROBBIE HUANG [id number] -1940 M Exm Date: DECEMBER 14, 2024@07:49 Req Phys: FARHAT BRIGGS Abby Loc: [facility] PACT WHITNEY 16-1 (Req'g Loc) Img Loc: NUCLEAR MEDICINE Service: [place] [address] (Case [id number] COMPLETE)MYOVIEW(2) (NM Detailed) CPT:A9502 Reason for Study: SEE CLINICAL HISTORY Clinical History: Cardiology approval by: [facility] SERVICE CONNECTED? No Active Outpatient Medications (including [...] 14, 2024 Date Verified: DECEMBER 14, 2024 Base Ply Hand E-Sig: Report: [facility], [place], [place] STUDY: Regadenoson (Lexiscan) SPECT Tc-99m myoview [...] performed with tomographic and three-dimensional reconstructions with [place] NM/CT 640 system. Exercise: Patient exercised for 6 minutes on the [place] protocol to a sub-maximal HR of 108 [...] data sets in addition to the conventional yfd-cknexywfvhw-wkxtmfbtf images. Both filtered back projection and iterative [...] ventricular cavity. 4. SPECT images: Attenuation-corrected and ilg-yxfkslerkhh-cxvdrbflt SPECT images were evaluated. SPECT images demonstrate [...] JEB SANTOS MD, CARDIOLOGY ATTENDING Verified by clinical education coordinator for JEB SANTOS MD /JEB MANCILLA-CDD [facility] December 14, 2024 07:49 AM [id number] REGADENOSON 0.1MG X1 (LEXISCAN): ROBBIE HUANG [id number] -1940 M Exm Date: DECEMBER 14, 2024@07:49 Req Phys: FARHAT BRIGGS Loc: [facility] PACT [place]ITNEY 16-1 (Req'g Loc) Img Loc: NUCLEAR MEDICINE Service: [place] [address] (Case [id number] COMPLETE)[id number] REGADENOSON 0.1MG X1 (STEPHON(NM Detailed) CPT:J2785 [...] 14, 2024 Date Verified: DECEMBER 14, 2024 Base Ply Hand E-Sig: Report: [facility], [place], [place] STUDY: Regadenoson (Lexiscan) SPECT Tc-99m myoview [...] performed with tomographic and three-dimensional reconstructions with Intergloss NM/CT 640 system. Exercise: Patient exercised for [...] data sets in addition to the conventional jrk-msmtniivtnq-zgvtrpdbq images. Both filtered back projection and iterative [...] ventricular cavity. 4. SPECT images: Attenuation-corrected and ugr-ygslgpuvbsq-acmcxvnqv SPECT images were evaluated. SPECT images demonstrate [...] JEB SANTOS MD, CARDIOLOGY ATTENDING Verified by clinical education coordinator for JEB SANTOS MD /JEB MANCILLA-CDD [facility] December 14, 2024 07:49 AM [id number] REGADENOSON 0.1MG X2 (LEXISCAN): ROBBIE HUANG [id number] -1940 M Ex Date: DECEMBER 14, 2024@07:49 Req Phys: FARHAT BRIGGS Loc: [facility] PACT WHITNEY 16-1 (Req'g Loc) Img Loc: NUCLEAR MEDICINE Service: [place] [address] (Case [id number] COMPLETE)[id number] REGADENOSON 0.1MG X2 (STEPHON(NM Detailed) CPT:J2785 Reason for Study: SEE CLINICAL HISTORY Clinical History: Cardiology approval by: [facility] SERVICE CONNECTED? No Active Outpatient Medications (including [...] 14, 2024 Date Verified: DECEMBER 14, 2024 Base Ply Hand E-Sig: Report: [place], [place] STUDY: Regadenoson (Lexiscan) SPECT Tc-99m myoview [...] performed with tomographic and three-dimensional reconstructions with Intergloss NM/CT 640 system. Exercise: Patient exercised for [...] data sets in addition to the conventional smg-uculdhgnapo-iarjefagy images. Both filtered back projection and iterative [...] ventricular cavity. 4. SPECT images: Attenuation-corrected and pva-acjlzzoyxuv-cwfgxuesz SPECT images were evaluated. SPECT images demonstrate [...] JEB SANTOS MD, CARDIOLOGY ATTENDING Verified by clinical education coordinator for JEB SANTOS MD /JEB MANCILLA-CDD [facility] December 14, 2024 07:49 AM TC-99M X1 FROM NON -HEU SOURCE: ROBBIE HUANG [id number] -1940 M Exm Date: DECEMBER 14, 2024@07:49 Req Phys: FARHAT BRIGGS Pat Loc: [facility] PACT [place]ITNEY 16-1 (Req'g Loc) Img Loc: NUCLEAR MEDICINE Service: [place] [address] (Case [id number] COMPLETE)TC-99M X1 FROM NON-HEU SOURCE (NM Detailed) [...] 14, 2024 Date Verified: DECEMBER 14, 2024 Base Ply Hand E-Sig: Report: [place] STUDY: Regadenoson (Lexiscan) SPECT Tc-99m myoview [...] performed with tomographic and three-dimensional reconstructions with Alektrona/CT 640 system. Exercise: Patient exercised for 6 [...] data sets in addition to the conventional kaj-uqtjpvuhowb-ejwlcrvmi images. Both filtered back projection and iterative [...] ventricular cavity. 4. SPECT images: Attenuation-corrected and jtq-enifgengivv-nastsxbgm SPECT images were evaluated. SPECT images demonstrate [...] JEB SANTOS MD, CARDIOLOGY ATTENDING Verified by clinical education coordinator for JEB SANTOS MD /JEB MANCILLA-D [facility] December 14, 2024 07:49 AM [id number] REGADENOSON 0.1MG X3 (LEXISCAN): ROBBIE HUANG [id number] -1940 M Exm Date: DECEMBER 14, 2024@07:49 Req Phys: FARHAT BRIGGS Loc: [facility] PACT WHITNEY 16-1 (Req'g Loc) Img Loc: NUCLEAR MEDICINE Service: [place] [address] (Case [id number] COMPLETE)[id number] REGADENOSON 0.1MG X3 (STEPHON(NM Detailed) CPT:J2785 [...] 14, 2024 Date Verified: DECEMBER 14, 2024 Base Ply Hand E-Sig: Report: [facility] [place] STUDY: Regadenoson (Lexiscan) SPECT Tc-99m myoview [...] performed with tomographic and three-dimensional reconstructions with Intergloss NM/CT 640 system. Exercise: Patient exercised for [...] data sets in addition to the conventional wfy-milbwpiuctz-blxwfhziu images. Both filtered back projection and iterative [...] ventricular cavity. 4. SPECT images: Attenuation-corrected and eys-jcgddoxrpzs-qdvhoxond SPECT images were evaluated. SPECT images demonstrate [...] JEB SANTOS MD, CARDIOLOGY ATTENDING Verified by clinical education coordinator for JEB SANTOS MD /JEB MANCILLA-CDD [facility] December 14, 2024 07:49 AM TC-99M X2 FROM NON -HEU SOURCE: ROBBIE HUANG [id number] -1940 M [facility] Date: DECEMBER 14, 2024@07:49 Req Phys: FARHAT BRIGGS Loc: [facility] WHITNEY 16-1 (Req'g Loc) [facility] Loc: NUCLEAR MEDICINE Service: Unknown [place] [id number] (Case [id number] COMPLETE)TC-99M X2 FROM NON-HEU SOURCE (NM Detailed) [...] 14, 2024 Date Verified: DECEMBER 14, 2024 Base Ply Hand E-Sig: Report: [place] STUDY: Regadenoson (Lexiscan) SPECT Tc-99m myoview [...] performed with tomographic and three-dimensional reconstructions with Alektrona/CT 640 system. Exercise: Patient exercised for 6 [...] data sets in addition to the conventional lcn-kyoipkpcqiu-jblpslqjv images. Both filtered back projection and iterative [...] ventricular cavity. 4. SPECT images: Attenuation-corrected and ils-wpsjedoufyf-okarkjdwn SPECT images were evaluated. SPECT images demonstrate [...] JEB SANTOS MD, CARDIOLOGY ATTENDING Verified by clinical education coordinator for JEB SANTOS MD /JEB MANCILLA-D [facility] Encounter Notes: All associated encounter notes This section contains the clinical notes associated to the Encounter. Date/Time Encounter Note(s) Provider Source Dec 26, 2024 03:00 PM CARE COORDINATION HOME TELEHEALTH NOTE: LOCAL TITLE: HT NOTE STANDARD TITLE: CARE COORDINATION HOME TELEHEALTH NOTE DATE OF NOTE: DEC 26, 2024@15:00 ENTRY DATE: DEC 26, 2024@15:00:49 AUTHOR: GARCIA BRUNNER EXP COSIGNER: URGENCY: STATUS: COMPLETED Called and spoke with regarding PCP response: pt already established cardiac pt and testing [...] MD Primary Care Attending Signed: 12/25/2024 13:58 Informed they would be contacting him to schedule duplex / [place]. He verbalized understanding and appreciated all assistance. /jack/ GARCIA BRUNNER MSN, RN-BC [employer] Signed: 12/26/2024 15:02 GARCIA BRUNNER [facility]
[2024-12-29 22:54] VITALS: BP 164/86; PULSE 85; RESP 18; TEMP 36.9; O2SAT 96; BMI 28.1
--- NOTE | 2024-12-29 22:58 | ECG_ITS ---
APPROVED REPORT Exam: Resting ECG HR:90 bpm ECG Measurements Heart Rate 90 AXES NE 195 P 43 QRSd 172 QRS -70 QT 408 T 6 QTc 456 Conclusion SINUS RHYTHM RIGHT BUNDLE BRANCH BLOCK [120+ ms QRS DURATION, UPRIGHT V1, 40+ ms S IN I/aVL/V4/V5/V6] LEFT ANTERIOR FASCICULAR BLOCK [QRS AXIS <= -45, QR IN I, RS IN II] MINIMAL VOLTAGE CRITERIA FOR LVH, CONSIDER NORMAL VARIANT [MEETS CRITERIA IN ONE OF: R(aVL), S(V1), R(V5), R(V5/V6)+S(V1)] ANTEROSEPTAL MYOCARDIAL INFARCTION , OF INDETERMINATE AGE [40+ ms Q WAVE IN V1-V4] ABNORMAL ECG UNCONFIRMED REPORT Electronically signed by : ZACHARY CARTER, 01/03/2025 01:22:24
--- NOTE | 2024-12-29 23:26 | XR_ITS ---
PROCEDURE INFORMATION: Exam: XR Chest Exam date and time: 12/30/2024 1:13 AM Age: 84 years old Clinical indication: Pain; Right-sided; Additional info: SOA ru chest pain TECHNIQUE: Imaging protocol: Radiologic exam of the chest. Views: 1 view. COMPARISON: CT ABDOMEN PELVIS WO CON 07/05/2019 12:59 PM FINDINGS: Lungs: Low lung volumes. No focal consolidation. Pleural spaces: Unremarkable. No pleural effusion. No pneumothorax. Heart/Mediastinum: Unremarkable. No cardiomegaly. Bones/joints: Unremarkable. IMPRESSION: No acute disease.
--- OUTSIDE RECORDS SUMMARY | 2024-12-29 23:28 | XMS_ITS | Continuity of Care Document ---
Author Name [facility] Organization [facility] Care Team Providers Care Automatic Screwmaker Name Role Phone [facility] Unavailable Unavailable Problems Combined list of problems from Department of Defense and Veterans Affairs facilities. It does not include entries that were removed or entered in error. 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 Active Condition [place] Coronary artery disease (SNOMED CT 43585911) Active Condition Jun 01, 2007 Entered By: DALTON SERRANO Comment: s/p [place] 05/26 (stents)Jul 06, 2007 Entered By: DALTON SERRANO Comment: CHF (EF 40-45%) on ECHO 07/03/07De 2006 Entered By: DALTON SERRANO Comment: no reversible defect on stress test 05/31 [facility] Family h/o Cancer of GI Tract Active Condition [facility] Hearing loss (SNOMED CT 37812066) Active Condition [facility] History of calculus of kidney Active Condition [facility] History of cholecystectomy Active Condition [facility] History of rheumatic fever Active Condition Jun 01, 2007 Entered By: DALTON SERRANO Comment: at age 6 [facility] Long-term current use of antiplatelet drug Active Condition [facility] Overweight Active Condition [facility] Pure hypercholesterolemia Active Condition [facility] Abscess * (ICD-9-CM 682.9) Inactive Condition 02/19/2009 [facility] Hyperglycemia Inactive Condition 06/07/2013 [facility] Knee Pain Inactive Condition 05/26/2011 [facility]IYAHTO NLian [facility] Proteinuria Inactive Condition 06/15/2022 [facility]IYAH MURRAY [facility] Diagnosis: ICD-10-CM I10 Essential (primary) hypertension Active Diagnosis [facility] Diagnosis: ICD-10-CM I12.9 Hypertensive chronic kidney disease w stg 1-4/unsp chr kdny Active Diagnosis [facility] Diagnosis: ICD-10-CM R06.00 Dyspnea, unspecified Active Diagnosis [facility] Diagnosis: ICD-10-CM I20.9 Angina pectoris, unspecified Active Diagnosis [facility] Diagnosis: ICD-10-CM R06.09 Other forms of dyspnea Active Diagnosis [facility] Diagnosis: ICD-10-CM Z03.89 Encntr for obs for oth suspected diseases and cond ruled out Active Diagnosis [facility] Diagnosis: ICD-10-CM R76.0 Raised antibody titer Active Diagnosis [facility] Diagnosis: ICD-10-CM N13.39 Other hydronephrosis Active Diagnosis [facility] Diagnosis: ICD-10-CM J84.9 Interstitial pulmonary disease, unspecified Active Diagnosis [facility] Diagnosis: ICD-10-CM Z71.89 Other specified counseling Active Diagnosis [facility] Diagnosis: ICD-10-CM Z79.02 medical terminologist (current) use of antithrombotics/antipla telets Active Diagnosis [facility] Diagnosis: ICD-10-CM J84.89 Other specified interstitial pulmonary diseases Active Diagnosis [facility] Diagnosis: ICD-10-CM Z13.83 Encounter for screening for respiratory disorder NEC Active Diagnosis [facility] Diagnosis: ICD-10-CM N18.4 Chronic kidney disease, stage 4 (severe) Active Diagnosis [facility] Diagnosis: ICD-10-CM 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 Active Diagnosis [facility] Diagnosis: ICD-10-CM I25.10 Athscl heart disease of [place] coronary artery w/o ang pctrs Active Diagnosis [facility] Diagnosis: ICD-10-CM L57.0 Actinic keratosis Active Diagnosis [facility] Diagnosis: ICD-10-CM R00.2 Palpitations Active Diagnosis [facility] Diagnosis: ICD-10-CM R51.9 Headache, unspecified Active Diagnosis [facility] Diagnosis: ICD-10-CM Z13.6 Encounter for screening for cardiovascular disorders Active Diagnosis [facility] Diagnosis: ICD-10-CM I11.0 Hypertensive heart disease with heart failure Active Diagnosis [facility] Diagnosis: ICD-10-CM E11.22 Type 2 diabetes mellitus w diabetic chronic kidney disease Active Diagnosis [facility] Diagnosis: ICD-10-CM L82.1 Other seborrheic keratosis Active Diagnosis [facility] Diagnosis: ICD-10-CM I50.22 Chronic systolic (congestive) heart failure Active Diagnosis [facility] Diagnosis: ICD-10-CM G45.9 Transient cerebral ischemic attack, unspecified Active Diagnosis [facility] Diagnosis: ICD-10-CM R29.810 Facial weakness Active Diagnosis [facility] Diagnosis: ICD-10-CM N18.5 Chronic kidney disease, stage 5 Active Diagnosis [facility] Diagnosis: ICD-10-CM Z46.1 Encounter for fitting and adjustment of hearing aid Active Diagnosis [facility] Diagnosis: ICD-10-CM D48.5 Neoplasm of uncertain behavior of skin Active Diagnosis [facility] Diagnosis: ICD-10-CM M25.461 Effusion, right knee Active Diagnosis [facility] Medications Combined list of outpatient medications from Department of Defense and Veterans Affairs facilities.Medications provided include 1) outpatient medications from the last 15 months, and 2) patient-reported medications. Medication Details Route Status Patient Instructions Prescription Expires Prescription Number Last Dispense Date Ordering Provider Order Date Order Qty Source AMLODIPINE BESYLATE 10MG TAB TAKE ONE TABLET BY MOUTH DAILY ORAL ACTIVE STONEIMELDA NDRA R 2023 [place] [facility] AMLODIPINE BESYLATE 2.5MG TAB TAKE ONE TABLET BY MOUTH DAILY FOR BLOOD PRESSURE /HEART -DO NOT DRINK GRAPEFRU IT JUICE WHILE ON THIS DRUG ORAL DISCONT INUED (EDIT) 07/08/2024 [id number] [place] YAO 2023 30 [place] [facility] [place] AMLODIPINE BESYLATE 5MG TAB TAKE ONE TABLET BY MOUTH DAILY FOR BLOOD PRESSURE /HEART -DO NOT DRINK GRAPEFRU IT JUICE WHILE ON THIS DRUG ORAL DISCONT INUED BY PROVIDE R 06/29/2025 [id number] IMELDA COBBA R 2024 30 [place] [facility] [place] AMLODIPINE BESYLATE 5MG TAB TAKE ONE TABLET BY MOUTH DAILY FOR BLOOD PRESSURE /HEART -DO NOT DRINK GRAPEFRU IT JUICE WHILE ON THIS DRUG ORAL DISCONT INUED BY PROVIDE R 06/28/2025 [id number] IMELDA COBBA R 2023 30 [place] [facility] [place] CHOLECALCIF JUNIOR 25MCG (1,000UNIT) TAB TAKE ONE TABLET BY MOUTH DAILY ORAL ACTIVE IMELDA COBBA R 2010 [place] [facility] CLOPIDOGREL BISULFATE 75MG TAB TAKE ONE TABLET BY MOUTH DAILY ORAL ACTIVE IMELDA COBBA R 2023 [place] [facility] EMPAGLIFLOZ IN 10 MG ORAL TAB TAKE ONE TABLET BY MOUTH EVERY MORNING PROTEINU ARIANNA 12/06/2024 [id number] POLA CHOW 2023 90 [place] EMPAGLIFLOZ IN 10MG TAB TAKE ONE TABLET BY MOUTH EVERY MORNING PROTEINU ARIANNA ORAL ACTIVE 12/06/2025 [id number] IMELDA COBBA R 2024 90 [place] [facility] [place] EMPAGLIFLOZ IN 10MG TAB TAKE ONE TABLET BY MOUTH EVERY MORNING PROTEINU ARIANNA ORAL DISCONT INUED 12/06/2024 [id number] POLA CHOW 2023 90 [place] MULTIVIT/OP HTH AREDS2/LUTE IN/ZEAXANTH IN CAP/TAB TAKE 1 SOFTGEL BY MOUTH TWICE A DAY AFTER MEALS ORAL ACTIVE IMELDA COBB NDRA R 2018 [place] [facility] ROSUVASTATI N TAB 10MG MOUTH DAILY ORAL ACTIVE IMELDA COBB NDRA R 2023 [place] [facility] Allergies, Adverse Reactions, Alerts Combined list of allergies from Department of [facility] and [facility] facilities. It does not include entries that were removed or entered in error. Substance Category Reaction Severity Reaction type Status Date Reported Comments Source Aspirin Drug allergy (disorder) Eruption of skin active 7 [facility] ASPIRIN Propensity to adverse reactions to drug (finding) Eruption active 7 [facility] ATORVASTATIN Propensity to adverse reactions to drug (finding) Muscle pain active 9 [facility] Atorvastatin Calcium Drug allergy (disorder) Myalgias active 9 [facility] Immunizations Combined list of available immunizations from the Department of [facility] and [facility] Affairs facilities. Immunization Series Date Given Administered By Site Reaction Lot Number CVX Code Drug Managed Care Provider Status Comments Source TDAP 2023 IRAJ WOOD RIGHT DELTO ID [id number] 115 complet ed ADMINISTE RED AT SD, [place] [facility] INFLUENZA, HIGH-DOSE, TRIVALENT, PF 2023 IRAJ WOOD LEFT DELTO ID [id number] 135 complet ed ADMINISTE RED AT SD, [place] [facility] INFLUENZA VACCINE, QUADRIVALENT, ADJUVANTED 6 2022 205 complet ed HISTORICA L INFORMATI ON - FROM OTHER REGISTRY, [place] [facility] INFLUENZA, HIGH-DOSE, QUADRIVALENT 5 2021 197 complet ed HISTORICA L INFORMATI ON - FROM OTHER REGISTRY, [place] [facility] INFLUENZA, UNSPECIFIED FORMULATION 2021 88 complet ed [place] [facility] COVID-19 (PFIZER), MRNA, LNP-S, PF, 30 MCG/0.3 ML DOSE 3 2020 208 complet ed [place] [facility] [place] INFLUENZA VACCINE, QUADRIVALENT, ADJUVANTED 4 2020 205 complet ed HISTORICA L INFORMATI ON - FROM OTHER REGISTRY, [place] [facility] INFLUENZA, UNSPECIFIED FORMULATION 2020 88 complet ed [place] [facility] COVID-19 (PFIZER), MRNA, LNP-S, PF, 30 MCG/0.3 ML DOSE 2 2020 208 complet ed PFR; [id number]; 1 [place] COVID-19 (PFIZER), MRNA, LNP-S, PF, 30 MCG/0.3 ML DOSE 1 2020 208 complet ed PFR; [id number]; 1 [place] INFLUENZA, HIGH-DOSE, QUADRIVALENT 3 2019 197 complet ed HISTORICA L INFORMATI ON - FROM OTHER REGISTRY, [place] [facility] INFLUENZA, UNSPECIFIED FORMULATION 2019 88 complet ed [place] [facility] INFLUENZA, HIGH DOSE SEASONAL 2 2018 135 complet ed HISTORICA L INFORMATI ON - FROM OTHER REGISTRY, [place] [facility] INFLU[facility], SEASONAL, INJECTABLE 2018 141 complet ed [place] [facility] INFLUENZA, INJECTABLE, QUADRIVALENT, PRESERVATIVE FREE 1 2017 150 complet ed HISTORICA L INFORMATI ON - FROM OTHER REGISTRY, [place] [facility] INFLUENZA, SEASONAL, INJECTABLE 2017 141 complet ed [place] [facility] INFLU[facility] A & B (HISTORICAL) 2016 88 complet ed [facility] [place] [facility] INFLUENZA A & B (HISTORICAL) 2015 88 complet ed [place] reports received in allergy clinic [place] [facility] [id number] (HISTORICAL) 2015 133 complet ed [place] [facility] INFLUENZA A & B (HISTORICAL) 2014 88 complet ed [place] [facility] INFLUENZA A & B (HISTORICAL) 2013 88 complet ed [place] ZOSTER LIVE 2012 121 complet ed [place] [facility] INFLUENZA A & B (HISTORICAL) 2012 88 complet ed [place] [facility] TDAP (HISTORICAL) 2011 115 complet ed [place] [facility] TD(ADULT) UNSPECIFIED FORMULATION 2011 139 complet ed Completed Series, [place] [facility] (HISTORICAL) 2011 88 complet ed [place] [facility] FLU,3 YRS (HISTORICAL) 2010 88 complet ed [place] [facility] INFLU[facility] A & B (HISTORICAL) 2009 88 complet ed [place] [facility] NOVEL INFLUENZA-H1N 1-09, ALL FORMULATIONS 2008 128 complet ed [facility] [place] [facility] INFLUENZA A & B (HISTORICAL) 2008 88 complet ed [place] [facility] A & B (HISTORICAL) 2007 88 complet ed local [place] [facility] FLU,3 YRS (HISTORICAL) 2006 88 complet ed [place] [facility] PNEUMOCOCCAL, UNSPECIFIED FORMULATION 2006 109 complet ed [place] [facility] FLU,3 YRS (HISTORICAL) 2004 AMY YATES 88 complet ed [place] INFLUENZA A & B (HISTORICAL) 2003 88 complet ed [place] INFLUENZA A & B (HISTORICAL) 2002 88 complet ed [place] [facility] TD(ADULT) UNSPECIFIED FORMULATION 2001 139 complet ed [place] [facility] TD (ADULT), 2 LF TETANUS TOXOID, PRESERVATIVE FREE, ADSORBED 1 1996 09 complet ed HISTORICA L INFORMATI ON - FROM OTHER REGISTRY, [place] [facility] Results Combined list of recent chemistry, hematology and other laboratory results from Department of Defense and Veterans Affairs, ranging from 15 months to all on record, depending upon the facility. Order Name Results Value Reference Range Date Interpretation Specimen Comments Source PROTEIN ELECTROP HORESIS PROTEIN [MASS/VOLU ME] IN URINE 17.0 mg/dL 12/03 Specimen Type: URINE No comment entered. Ordering Provider: MELVIN COBB RA Report Released Date/Time: December 03, 2024 01:24 PM Reporting Lab: [place] [address] Performing Lab: [address] PROTEIN ELECTROP HORESIS ALBUMIN/WI OTEIN.TOTA L IN URINE BY ELECTROPHO RESIS 29.4 12/03 Specimen Type: URINE No comment entered. Ordering Provider: MELVIN COBB RA Report Released Date/Time: December 03, 2024 01:24 PM Reporting Lab: [place] [address] Performing Lab: [address] PROTEIN ELECTROP HORESIS ALPHA 1 GLOBULIN/P ROTEIN.TOT AL IN URINE BY ELECTROPHO RESIS 5.2 12/03 Specimen Type: URINE No comment entered. Ordering Provider: MELVIN COBB RA Report Released Date/Time: December 03, 2024 01:24 PM Reporting Lab: [place] [address] Performing Lab: [address] PROTEIN ELECTROP HORESIS ALPHA 2 GLOBULIN/P ROTEIN.TOT AL IN URINE BY ELECTROPHO RESIS 21.5 12/03 Specimen Type: URINE No comment entered. Ordering Provider: MELVIN COBB RA Report Released Date/Time: December 03, 2024 01:24 PM Reporting Lab: [place] [address] Performing Lab: [address] PROTEIN ELECTROP HORESIS BETA GLOBULIN/P ROTEIN.TOT AL IN URINE BY ELECTROPHO RESIS 19.7 12/03 Specimen Type: URINE No comment entered. Ordering Provider: MELVIN COBB RA Report Released Date/Time: December 03, 2024 01:24 PM Reporting Lab: [address] [address] Performing Lab: [place] [phone] [facility] PROTEIN ELECTROP HORESIS GAMMA GLOBULIN/P ROTEIN.TOT AL IN URINE BY ELECTROPHO RESIS 24.2 12/03 Specimen Type: URINE No comment entered. Ordering Provider: MELVIN COBB RA Report Released Date/Time: December 03, 2024 01:24 PM Reporting Lab: [address] [address] Performing Lab: [place] [phone] [facility] PROTEIN ELECTROP HORESIS PROTEIN.MO NOCLONAL/P ROTEIN.TOT AL IN URINE BY ELECTROPHO RESIS Not Observed 12/03 Specimen Type: URINE No comment entered. Ordering Provider: MELVIN COBB RA Report Released Date/Time: December 03, 2024 01:24 PM Reporting Lab: [address] [address] Performing Lab: [place] [phone] [facility] TOTAL PROTEIN PROTEIN [MASS/VOLU ME] IN URINE 16 mg/dL 0 - 14 12/03 H Specimen Type: URINE No comment entered. Ordering Provider: MELVIN COBB RA Report Released Date/Time: December 03, 2024 01:24 PM Reporting Lab: [address] [address] Performing Lab: [address] [address] [facility] CREATINI NE CREATININE [MASS/VOLU ME] IN URINE 63.6 mg/dL 12/03 Specimen Type: URINE No comment entered. Ordering Provider: MELVIN COBB RA Report Released Date/Time: December 03, 2024 01:24 PM Reporting Lab: [address] [address] Performing Lab: [address] [address] [facility] URINALYS IS COLOR OF URINE Light Yellow 12/03 Specimen Type: URINE Comment: Microscopic not indicated Ordering Provider: MELVIN COBB RA Report Released Date/Time: December 03, 2024 01:29 PM Reporting Lab: [address] [address] Performing Lab: [address] [address] [facility] URINALYS IS APPEARANCE OF URINE Clear 12/03 Specimen Type: URINE Comment: Microscopic not indicated Ordering Provider: MELVIN COBB RA Report Released Date/Time: December 03, 2024 01:29 PM Reporting Lab: [address] [address] Performing Lab: [address] [address] [facility] URINALYS IS UROBILINOG EN [MASS/VOLU ME] IN URINE BY TEST STRIP Normalmg /dL 12/03 Specimen Type: URINE Comment: Microscopic not indicated Ordering Provider: MELVIN COBB RA Report Released Date/Time: December 03, 2024 01:29 PM Reporting Lab: [address] [address] Performing Lab: [address] [address] [facility] URINALYS IS HEMOGLOBIN [PRESENCE] IN URINE BY TEST STRIP Negative 12/03 Specimen Type: URINE Comment: Microscopic not indicated Ordering Provider: MELVIN COBB RA Report Released Date/Time: December 03, 2024 01:29 PM Reporting Lab: [id number] [address] Performing Lab: [address] [address] [facility] URINALYS IS BILIRUBIN. TOTAL [PRESENCE] IN URINE BY TEST STRIP Negative 12/03 Specimen Type: URINE Comment: Microscopic not indicated Ordering Provider: MELVIN COBB RA Report Released Date/Time: December 03, 2024 01:29 PM Reporting Lab: [address] [address] Performing Lab: [place] [id number] [facility] [address] [facility] URINALYS IS KETONES [MASS/VOLU ME] IN URINE BY TEST STRIP Negative mg/dL 12/03 Specimen Type: URINE Comment: Microscopic not indicated Ordering Provider: MELVIN COBB RA Report Released Date/Time: December 03, 2024 01:29 PM Reporting Lab: [address] [address] Performing Lab: [address] [address] [facility] URINALYS IS PROTEIN [MASS/VOLU ME] IN URINE BY TEST STRIP Negative mg/dL 12/03 Specimen Type: URINE Comment: Microscopic not indicated Ordering Provider: MELVIN COBB RA Report Released Date/Time: December 03, 2024 01:29 PM Reporting Lab: [address] [address] Performing Lab: [address] [address] [facility] URINALYS IS PH OF URINE BY TEST STRIP 5.0 4.5 - 8.0 12/03 Specimen Type: URINE Comment: Microscopic not indicated Ordering Provider: MELVIN COBB RA Report Released Date/Time: December 03, 2024 01:29 PM Reporting Lab: [address] [address] Performing Lab: [address] [address] [facility] URINALYS IS NITRITE [PRESENCE] IN URINE BY TEST STRIP Negative 12/03 Specimen Type: URINE Comment: Microscopic not indicated Ordering Provider: MELVIN COBB RA Report Released Date/Time: December 03, 2024 01:29 PM Reporting Lab: [address] [address] Performing Lab: [address] [address] [facility] URINALYS IS LEUKOCYTE ESTERASE [PRESENCE] IN URINE BY TEST STRIP Negative 12/03 Specimen Type: URINE Comment: Microscopic not indicated Ordering Provider: MELVIN COBB RA Report Released Date/Time: December 03, 2024 01:29 PM Reporting Lab: [place] [address] Performing Lab: [place] [phone] [place] [address] URINALYS IS SPECIFIC GRAVITY OF URINE 1.014 1.005 - 1.030 12/03 Specimen Type: URINE Comment: Microscopic not indicated Ordering Provider: MELVIN COBB RA Report Released Date/Time: December 03, 2024 01:29 PM Reporting Lab: [place] [address] Performing Lab: [address] URINALYS IS GLUCOSE [MASS/VOLU ME] IN URINE BY TEST STRIP >1000mg/ dL 12/03 H Specimen Type: URINE Comment: Microscopic not indicated Ordering Provider: MELVIN COBB RA Report Released Date/Time: December 03, 2024 01:29 PM Reporting Lab: [place] [phone] Performing Lab: [place] [address] [place] [address] ANTI-NUC LEAR Ab NUCLEAR AB [TITER] IN SERUM BY HEP2 SUBSTRATE 1:320 Atypical Speckled <1:80 - 180 12/03 Specimen Type: SERUM Comment: Atypical speckled resembling DFS (Dense-Fine Speckled. The DFS pattern has a low prevalence in systemic autoimmune rheumatic diseases. The clinical association remains unclear. Due to its close resemblance to other patterns of clinical relevance, (i.e. Homogeneous , speckled, and mixed patterns) follow-up testing may be recommended . ANTI-NUCLEA R Ab reported incorrectly as Atypical Speckled by [[id number]]. Changed to 1:320 Atypical Speckled on December 06, 2024@12:59 by [[id number]]. Ordering Provider: MELVIN COBB RA Report Released Date/Time: December 03, 2024 01:38 PM Reporting Lab: [address] [address] Performing Lab: [address] [address] [facility] ROSALIE (SERUM) ALBUMIN [MASS/VOLU ME] IN SERUM OR PLASMA BY ELECTROPHO RESIS 3.6 g/dL 2.9 - 4.4 12/03 Specimen Type: SERUM Comment: BNP results less than or equal to 100 pg/ml are representat carissa of normal values in patients without CHF. BNP results greater than 100 pg/ml are considered abnormal and suggestive of CHF. Higher BNP concentrati ons in the first 72 hours after Acute Coronary Syndrome are associated with an increased risk of , myocardial infarction and CHF. Ordering Provider: MELVIN COBB RA Report Released Date/Time: December 03, 2024 01:24 PM Reporting Lab: [address] [address] Performing Lab: [place] [phone] [facility] ROSALIE (SERUM) ALPHA 1 GLOBULIN [MASS/VOLU ME] IN SERUM OR PLASMA BY ELECTROPHO RESIS 0.3 g/dL 0.0 - 0.4 12/03 Specimen Type: SERUM Comment: BNP results less than or equal to 100 pg/ml are representat carissa of normal values in patients without CHF. BNP results greater than 100 pg/ml are considered abnormal and suggestive of CHF. Higher BNP concentrati ons in the first 72 hours after Acute Coronary Syndrome are associated with an increased risk of , myocardial infarction and CHF. Ordering Provider: MELVIN COBB RA Report Released Date/Time: December 03, 2024 01:24 PM Reporting Lab: [address] [address] Performing Lab: [address] [address] [facility] ROSALIE (SERUM) ALPHA 2 GLOBULIN [MASS/VOLU ME] IN SERUM OR PLASMA BY ELECTROPHO RESIS 1.0 g/dL 0.4 - 1.0 12/03 Specimen Type: SERUM Comment: BNP results less than or equal to 100 pg/ml are representat carissa of normal values in patients without CHF. BNP results greater than 100 pg/ml are considered abnormal and suggestive of CHF. Higher BNP concentrati ons in the first 72 hours after Acute Coronary Syndrome are associated with an increased risk of , myocardial infarction and CHF. Ordering Provider: MELVIN COBB RA Report Released Date/Time: December 03, 2024 01:24 PM Reporting Lab: [address] [address] Performing Lab: [place] [phone] [facility] ROSALIE (SERUM) BETA GLOBULIN [MASS/VOLU ME] IN SERUM OR PLASMA BY ELECTROPHO RESIS 1.1 g/dL 0.7 - 1.3 12/03 Specimen Type: SERUM Comment: BNP results less than or equal to 100 pg/ml are representat carissa of normal values in patients without CHF. BNP results greater than 100 pg/ml are considered abnormal and suggestive of CHF. Higher BNP concentrati ons in the first 72 hours after Acute Coronary Syndrome are associated with an increased risk of , myocardial infarction and CHF. Ordering Provider: MELVIN COBB RA Report Released Date/Time: December 03, 2024 01:24 PM Reporting Lab: [address] [address] Performing Lab: [address] [address] [facility] ROSALIE (SERUM) GAMMA GLOBULIN [MASS/VOLU ME] IN SERUM OR PLASMA BY ELECTROPHO RESIS 1.1 g/dL 0.4 - 1.8 12/03 Specimen Type: SERUM Comment: BNP results less than or equal to 100 pg/ml are representat carissa of normal values in patients without CHF. BNP results greater than 100 pg/ml are considered abnormal and suggestive of CHF. Higher BNP concentrati ons in the first 72 hours after Acute Coronary Syndrome are associated with an increased risk of , myocardial infarction and CHF. Ordering Provider: MELVIN COBB RA Report Released Date/Time: December 03, 2024 01:24 PM Reporting Lab: [address] [address] Performing Lab: [address] [address] [facility] ROSALIE (SERUM) IGG [MASS/VOLU ME] IN SERUM OR PLASMA 999 mg/dL 603 - 1613 12/03 Specimen Type: SERUM Comment: BNP results less than or equal to 100 pg/ml are representat carissa of normal values in patients without CHF. BNP results greater than 100 pg/ml are considered abnormal and suggestive of CHF. Higher BNP concentrati ons in the first 72 hours after Acute Coronary Syndrome are associated with an increased risk of , myocardial infarction and CHF. Ordering Provider: MELVIN COBB RA Report Released Date/Time: December 03, 2024 01:24 PM Reporting Lab: [address] [address] Performing Lab: [address] [address] [facility] IGA [MASS/VOLU ME] IN SERUM OR PLASMA 276 mg/dL 61 - 437 12/03 Specimen Type: SERUM Comment: BNP results less than or equal to 100 pg/ml are representat carissa of normal values in patients without CHF. BNP results greater than 100 pg/ml are considered abnormal and suggestive of CHF. Higher BNP concentrati ons in the first 72 hours after Acute Coronary Syndrome are associated with an increased risk of , myocardial infarction and CHF. Ordering Provider: MELVIN COBB RA Report Released Date/Time: December 03, 2024 01:24 PM Reporting Lab: [address] [address] Performing Lab: [address] [address] [facility] ROSALIE (SERUM) IGM [MASS/VOLU ME] IN SERUM OR PLASMA 63 mg/dL 15 - 143 12/03 Specimen Type: SERUM Comment: BNP results less than or equal to 100 pg/ml are representat carissa of normal values in patients without CHF. BNP results greater than 100 pg/ml are considered abnormal and suggestive of CHF. Higher BNP concentrati ons in the first 72 hours after Acute Coronary Syndrome are associated with an increased risk of , myocardial infarction and CHF. Ordering Provider: MELVIN COBB RA Report Released Date/Time: December 03, 2024 01:24 PM Reporting Lab: [address] [address] Performing Lab: [address] [address] [facility] ROSALIE (SERUM) PROTEIN [MASS/VOLU ME] IN SERUM OR PLASMA 7.0 g/dL 6.0 - 8.5 12/03 Specimen Type: SERUM Comment: BNP results less than or equal to 100 pg/ml are representat carissa of normal values in patients without CHF. BNP results greater than 100 pg/ml are considered abnormal and suggestive of CHF. Higher BNP concentrati ons in the first 72 hours after Acute Coronary Syndrome are associated with an increased risk of , myocardial infarction and CHF. Ordering Provider: MELVIN COBB RA Report Released Date/Time: December 03, 2024 01:24 PM Reporting Lab: [address] [address] Performing Lab: [address] [address] [facility] ROSALIE (SERUM) ALBUMIN/GL OBULIN [MASS RATIO] IN SERUM OR PLASMA 1.1 0.7 - 1.7 12/03 Specimen Type: SERUM Comment: BNP results less than or equal to 100 pg/ml are representat carissa of normal values in patients without CHF. BNP results greater than 100 pg/ml are considered abnormal and suggestive of CHF. Higher BNP concentrati ons in the first 72 hours after Acute Coronary Syndrome are associated with an increased risk of , myocardial infarction and CHF. Ordering Provider: MELVIN COBB RA Report Released Date/Time: December 03, 2024 01:24 PM Reporting Lab: [address] [address] Performing Lab: [address] [address] [facility] ROSALIE (SERUM) GLOBULIN [MASS/VOLU ME] IN SERUM 3.4 g/dL 2.2 - 3.9 12/03 Specimen Type: SERUM Comment: BNP results less than or equal to 100 pg/ml are representat carissa of normal values in patients without CHF. BNP results greater than 100 pg/ml are considered abnormal and suggestive of CHF. Higher BNP concentrati ons in the first 72 hours after Acute Coronary Syndrome are associated with an increased risk of , myocardial infarction and CHF. Ordering Provider: MELVIN COBB RA Report Released Date/Time: December 03, 2024 01:24 PM Reporting Lab: [place] [phone] Performing Lab: [place] [phone] [place] [id number] ROSALIE (SERUM) PROTEIN.MO NOCLONAL [MASS/VOLU ME] IN SERUM OR PLASMA BY ELECTROPHO RESIS Not Observed g/dL 12/03 Specimen Type: SERUM Comment: BNP results less than or equal to 100 pg/ml are representat carissa of normal values in patients without CHF. BNP results greater than 100 pg/ml are considered abnormal and suggestive of CHF. Higher BNP concentrati ons in the first 72 hours after Acute Coronary Syndrome are associated with an increased risk of , myocardial infarction and CHF. Ordering Provider: MELVIN COBB RA Report Released Date/Time: December 03, 2024 01:24 PM Reporting Lab: [place] [phone] Performing Lab: [place] [address] [facility] ROSALIE (SERUM) IMMUNOELEC TROPHORESI S FOR SERUM OR PLASMA Comment 12/03 Specimen Type: SERUM Comment: BNP results less than or equal to 100 pg/ml are representat carissa of normal values in patients without CHF. BNP results greater than 100 pg/ml are considered abnormal and suggestive of CHF. Higher BNP concentrati ons in the first 72 hours after Acute Coronary Syndrome are associated with an increased risk of , myocardial infarction and CHF. Ordering Provider: MELVIN COBB RA Report Released Date/Time: December 03, 2024 01:24 PM Reporting Lab: [address] [phone] Performing Lab: [place] [address] [facility] JORDAN SCREEN EXTRACTABL E NUCLEAR AB [PRESENCE] IN SERUM Negative 12/03 Specimen Type: SERUM No comment entered. Ordering Provider: MELVIN COBB RA Report Released Date/Time: December 03, 2024 01:38 PM Reporting Lab: [address] [phone] Performing Lab: [address] [address] [facility] BNP ([facility]) NATRIURETI C PEPTIDE B [MASS/VOLU ME] IN SERUM OR PLASMA 225 pg/mL 0 - 100 12/03 H Specimen Type: PLASMA Comment: BNP results less than or equal to 100 pg/ml are representat carissa of normal values in patients without CHF. BNP results greater than 100 pg/ml are considered abnormal and suggestive of CHF. Higher BNP concentrati ons in the first 72 hours after Acute Coronary Syndrome are associated with an increased risk of , myocardial infarction and CHF. Ordering Provider: MELVIN COBB RA Report Released Date/Time: December 03, 2024 01:24 PM Reporting Lab: [address] [address] Performing Lab: [address] [address] [facility] CK TOTAL CREATINE KINASE [ENZYMATIC ACTIVITY/V OLUME] IN SERUM OR PLASMA 76 U/L 30 - 200 12/03 Specimen Type: PLASMA Comment: Estimated Glomerular Filtration Rate (eGFR) calculated using the 2020 Chronic Kidney Disease-Epi demiology (CKD-EPI) Collaborati on creatinine equation; units of measure are mL/min/1.73 m2. Results are only valid for adults (>=18 years) whose serum creatinine is in a steady state. eGFR calculation s are not valid for patients with acute kidney injury and for patients on dialysis. Creatinine- based estimates of kidney function may also be inaccurate in patients with reduced creatinine generation due to decreased muscle mass (e.g., malnutritio n, severe hypoalbumin emia, sarcopenia, chronic neuromuscul ar disease, amputations , severe heart failure or liver disease) and in patients with increased creatinine generation due to increased muscle mass (e.g., muscle builders, anabolic steroids) or increased dietary intake. As drug clearance is proportiona l to total GFR and not GFR indexed to body surface area (BSA), in individuals with a BSA substantial ly different than 1.73 m2, drug dosing should be based on the reported eGFR value de-indexed from BSA by multiplying by the individual' s BSA and dividing by 1.73. CKD is diagnosed based on abnormaliti es of kidney structure or function, present for >3 months, with implication s for health and disease. CKD is classified and staged based on cause, eGFR and albuminuria (quantified as urine albumin to creatinine ratio). An eGFR >60 mL/min/1.73 m2 in the absence of increased urine albumin excretion or structural abnormaliti es does not represent CKD. eGFR CKD Interpretat ion (mL/min/1.7 3 m2) stage >=90 G1 Normal 60-89 G2 Mild decrease 45-59 G3A Mild to moderate decrease 30-44 G3B Moderate to severe decrease 15-29 G4 Severe decrease <15 G5 Kidney failure Ordering Provider: MELVIN COBB RA Report Released Date/Time: December 03, 2024 01:33 PM Reporting Lab: [facility] [address] [address] Performing Lab: [facility] [address] [address] [facility] PANEL 5 CREATININE [MASS/VOLU ME] IN SERUM OR PLASMA 2.05 mg/dL 0.72 - 1.25 12/03 H Specimen Type: PLASMA Comment: Estimated Glomerular Filtration Rate (eGFR) calculated using the 2020 Chronic Kidney Disease-Epi demiology (CKD-EPI) Collaborati on creatinine equation; units of measure are mL/min/1.73 m2. Results are only valid for adults (>=18 years) whose serum creatinine is in a steady state. eGFR calculation s are not valid for patients with acute kidney injury and for patients on dialysis. Creatinine- based estimates of kidney function may also be inaccurate in patients with reduced creatinine generation due to decreased muscle mass (e.g., malnutritio n, severe hypoalbumin emia, sarcopenia, chronic neuromuscul ar disease, amputations , severe heart failure or liver disease) and in patients with increased creatinine generation due to increased muscle mass (e.g., muscle builders, anabolic steroids) or increased dietary intake. As drug clearance is proportiona l to total GFR and not GFR indexed to body surface area (BSA), in individuals with a BSA substantial ly different than 1.73 m2, drug dosing should be based on the reported eGFR value de-indexed from BSA by multiplying by the individual' s BSA and dividing by 1.73. CKD is diagnosed based on abnormaliti es of kidney structure or function, present for >3 months, with implication s for health and disease. CKD is classified and staged based on cause, eGFR and albuminuria (quantified as urine albumin to creatinine ratio). An eGFR >60 mL/min/1.73 m2 in the absence of increased urine albumin excretion or structural abnormaliti es does not represent CKD. eGFR CKD Interpretat ion (mL/min/1.7 3 m2) stage >=90 G1 Normal 60-89 G2 Mild decrease 45-59 G3A Mild to moderate decrease 30-44 G3B Moderate to severe decrease 15-29 G4 Severe decrease <15 G5 Kidney failure Ordering Provider: MELVIN COBB RA Report Released Date/Time: December 03, 2024 01:24 PM Reporting Lab: [facility] [address] [phone] Performing Lab: [facility] [address] [address] [facility] PANEL 5 UREA NITROGEN [MASS/VOLU ME] IN SERUM OR PLASMA 38 mg/dL 9 - 25 12/03 H Specimen Type: PLASMA Comment: Estimated Glomerular Filtration Rate (eGFR) calculated using the 2020 Chronic Kidney Disease-Epi demiology (CKD-EPI) Collaborati on creatinine equation; units of measure are mL/min/1.73 m2. Results are only valid for adults (>=18 years) whose serum creatinine is in a steady state. eGFR calculation s are not valid for patients with acute kidney injury and for patients on dialysis. Creatinine- based estimates of kidney function may also be inaccurate in patients with reduced creatinine generation due to decreased muscle mass (e.g., malnutritio n, severe hypoalbumin emia, sarcopenia, chronic neuromuscul ar disease, amputations , severe heart failure or liver disease) and in patients with increased creatinine generation due to increased muscle mass (e.g., muscle builders, anabolic steroids) or increased dietary intake. As drug clearance is proportiona l to total GFR and not GFR indexed to body surface area (BSA), in individuals with a BSA substantial ly different than 1.73 m2, drug dosing should be based on the reported eGFR value de-indexed from BSA by multiplying by the individual' s BSA and dividing by 1.73. CKD is diagnosed based on abnormaliti es of kidney structure or function, present for >3 months, with implication s for health and disease. CKD is classified and staged based on cause, eGFR and albuminuria (quantified as urine albumin to creatinine ratio). An eGFR >60 mL/min/1.73 m2 in the absence of increased urine albumin excretion or structural abnormaliti es does not represent CKD. eGFR CKD Interpretat ion (mL/min/1.7 3 m2) stage >=90 G1 Normal 60-89 G2 Mild decrease 45-59 G3A Mild to moderate decrease 30-44 G3B Moderate to severe decrease 15-29 G4 Severe decrease <15 G5 Kidney failure Ordering Provider: MELVIN COBB RA Report Released Date/Time: December 03, 2024 01:24 PM Reporting Lab: [facility] [address] [phone] Performing Lab: [facility] [address] [address] [facility] PANEL 5 GLUCOSE [MASS/VOLU ME] IN SERUM OR PLASMA 93 mg/dL 74 - 100 12/03 Specimen Type: PLASMA Comment: Estimated Glomerular Filtration Rate (eGFR) calculated using the 2020 Chronic Kidney Disease-Epi demiology (CKD-EPI) Collaborati on creatinine equation; units of measure are mL/min/1.73 m2. Results are only valid for adults (>=18 years) whose serum creatinine is in a steady state. eGFR calculation s are not valid for patients with acute kidney injury and for patients on dialysis. Creatinine- based estimates of kidney function may also be inaccurate in patients with reduced creatinine generation due to decreased muscle mass (e.g., malnutritio n, severe hypoalbumin emia, sarcopenia, chronic neuromuscul ar disease, amputations , severe heart failure or liver disease) and in patients with increased creatinine generation due to increased muscle mass (e.g., muscle builders, anabolic steroids) or increased dietary intake. As drug clearance is proportiona l to total GFR and not GFR indexed to body surface area (BSA), in individuals with a BSA substantial ly different than 1.73 m2, drug dosing should be based on the reported eGFR value de-indexed from BSA by multiplying by the individual' s BSA and dividing by 1.73. CKD is diagnosed based on abnormaliti es of kidney structure or function, present for >3 months, with implication s for health and disease. CKD is classified and staged based on cause, eGFR and albuminuria (quantified as urine albumin to creatinine ratio). An eGFR >60 mL/min/1.73 m2 in the absence of increased urine albumin excretion or structural abnormaliti es does not represent CKD. eGFR CKD Interpretat ion (mL/min/1.7 3 m2) stage >=90 G1 Normal 60-89 G2 Mild decrease 45-59 G3A Mild to moderate decrease 30-44 G3B Moderate to severe decrease 15-29 G4 Severe decrease <15 G5 Kidney failure Ordering Provider: MELVIN COBB RA Report Released Date/Time: December 03, 2024 01:24 PM Reporting Lab: [place] [address] [address] Performing Lab: [facility] [address] [address] [facility] PANEL 5 SODIUM [MOLES/VOL UME] IN SERUM OR PLASMA 141 mmol/L 136 - 145 12/03 Specimen Type: PLASMA Comment: Estimated Glomerular Filtration Rate (eGFR) calculated using the 2020 Chronic Kidney Disease-Epi demiology (CKD-EPI) Collaborati on creatinine equation; units of measure are mL/min/1.73 m2. Results are only valid for adults (>=18 years) whose serum creatinine is in a steady state. eGFR calculation s are not valid for patients with acute kidney injury and for patients on dialysis. Creatinine- based estimates of kidney function may also be inaccurate in patients with reduced creatinine generation due to decreased muscle mass (e.g., malnutritio n, severe hypoalbumin emia, sarcopenia, chronic neuromuscul ar disease, amputations , severe heart failure or liver disease) and in patients with increased creatinine generation due to increased muscle mass (e.g., muscle builders, anabolic steroids) or increased dietary intake. As drug clearance is proportiona l to total GFR and not GFR indexed to body surface area (BSA), in individuals with a BSA substantial ly different than 1.73 m2, drug dosing should be based on the reported eGFR value de-indexed from BSA by multiplying by the individual' s BSA and dividing by 1.73. CKD is diagnosed based on abnormaliti es of kidney structure or function, present for >3 months, with implication s for health and disease. CKD is classified and staged based on cause, eGFR and albuminuria (quantified as urine albumin to creatinine ratio). An eGFR >60 mL/min/1.73 m2 in the absence of increased urine albumin excretion or structural abnormaliti es does not represent CKD. eGFR CKD Interpretat ion (mL/min/1.7 3 m2) stage >=90 G1 Normal 60-89 G2 Mild decrease 45-59 G3A Mild to moderate decrease 30-44 G3B Moderate to severe decrease 15-29 G4 Severe decrease <15 G5 Kidney failure Ordering Provider: MELVIN COBB RA Report Released Date/Time: December 03, 2024 01:24 PM Reporting Lab: [facility] [address] [phone] Performing Lab: [facility] [address] [address] [facility] PANEL 5 POTASSIUM [MOLES/VOL UME] IN SERUM OR PLASMA 4.5 mmol/L 3.5 - 5.1 12/03 Specimen Type: PLASMA Comment: Estimated Glomerular Filtration Rate (eGFR) calculated using the 2020 Chronic Kidney Disease-Epi demiology (CKD-EPI) Collaborati on creatinine equation; units of measure are mL/min/1.73 m2. Results are only valid for adults (>=18 years) whose serum creatinine is in a steady state. eGFR calculation s are not valid for patients with acute kidney injury and for patients on dialysis. Creatinine- based estimates of kidney function may also be inaccurate in patients with reduced creatinine generation due to decreased muscle mass (e.g., malnutritio n, severe hypoalbumin emia, sarcopenia, chronic neuromuscul ar disease, amputations , severe heart failure or liver disease) and in patients with increased creatinine generation due to increased muscle mass (e.g., muscle builders, anabolic steroids) or increased dietary intake. As drug clearance is proportiona l to total GFR and not GFR indexed to body surface area (BSA), in individuals with a BSA substantial ly different than 1.73 m2, drug dosing should be based on the reported eGFR value de-indexed from BSA by multiplying by the individual' s BSA and dividing by 1.73. CKD is diagnosed based on abnormaliti es of kidney structure or function, present for >3 months, with implication s for health and disease. CKD is classified and staged based on cause, eGFR and albuminuria (quantified as urine albumin to creatinine ratio). An eGFR >60 mL/min/1.73 m2 in the absence of increased urine albumin excretion or structural abnormaliti es does not represent CKD. eGFR CKD Interpretat ion (mL/min/1.7 3 m2) stage >=90 G1 Normal 60-89 G2 Mild decrease 45-59 G3A Mild to moderate decrease 30-44 G3B Moderate to severe decrease 15-29 G4 Severe decrease <15 G5 Kidney failure Ordering Provider: MELVIN COBB RA Report Released Date/Time: December 03, 2024 01:24 PM Reporting Lab: [place] [address] [phone] Performing Lab: [facility] [address] [address] [facility] PANEL 5 CHLORIDE [MOLES/VOL UME] IN SERUM OR PLASMA 112 mmol/L 98 - 107 12/03 H Specimen Type: PLASMA Comment: Estimated Glomerular Filtration Rate (eGFR) calculated using the 2020 Chronic Kidney Disease-Epi demiology (CKD-EPI) Collaborati on creatinine equation; units of measure are mL/min/1.73 m2. Results are only valid for adults (>=18 years) whose serum creatinine is in a steady state. eGFR calculation s are not valid for patients with acute kidney injury and for patients on dialysis. Creatinine- based estimates of kidney function may also be inaccurate in patients with reduced creatinine generation due to decreased muscle mass (e.g., malnutritio n, severe hypoalbumin emia, sarcopenia, chronic neuromuscul ar disease, amputations , severe heart failure or liver disease) and in patients with increased creatinine generation due to increased muscle mass (e.g., muscle builders, anabolic steroids) or increased dietary intake. As drug clearance is proportiona l to total GFR and not GFR indexed to body surface area (BSA), in individuals with a BSA substantial ly different than 1.73 m2, drug dosing should be based on the reported eGFR value de-indexed from BSA by multiplying by the individual' s BSA and dividing by 1.73. CKD is diagnosed based on abnormaliti es of kidney structure or function, present for >3 months, with implication s for health and disease. CKD is classified and staged based on cause, eGFR and albuminuria (quantified as urine albumin to creatinine ratio). An eGFR >60 mL/min/1.73 m2 in the absence of increased urine albumin excretion or structural abnormaliti es does not represent CKD. eGFR CKD Interpretat ion (mL/min/1.7 3 m2) stage >=90 G1 Normal 60-89 G2 Mild decrease 45-59 G3A Mild to moderate decrease 30-44 G3B Moderate to severe decrease 15-29 G4 Severe decrease <15 G5 Kidney failure Ordering Provider: MELVIN COBB RA Report Released Date/Time: December 03, 2024 01:24 PM Reporting Lab: [place] [place] [address] [address] Performing Lab: [facility] [address] [address] [facility] PANEL 5 CARBON DIOXIDE, TOTAL [MOLES/VOL UME] IN SERUM OR PLASMA 22 mmol/L 22 - 12/03 Specimen Type: PLASMA Comment: Estimated Glomerular Filtration Rate (eGFR) calculated using the 2020 Chronic Kidney Disease-Epi demiology (CKD-EPI) Collaborati on creatinine equation; units of measure are mL/min/1.73 m2. Results are only valid for adults (>=18 years) whose serum creatinine is in a steady state. eGFR calculation s are not valid for patients with acute kidney injury and for patients on dialysis. Creatinine- based estimates of kidney function may also be inaccurate in patients with reduced creatinine generation due to decreased muscle mass (e.g., malnutritio n, severe hypoalbumin emia, sarcopenia, chronic neuromuscul ar disease, amputations , severe heart failure or liver disease) and in patients with increased creatinine generation due to increased muscle mass (e.g., muscle builders, anabolic steroids) or increased dietary intake. As drug clearance is proportiona l to total GFR and not GFR indexed to body surface area (BSA), in individuals with a BSA substantial ly different than 1.73 m2, drug dosing should be based on the reported eGFR value de-indexed from BSA by multiplying by the individual' s BSA and dividing by 1.73. CKD is diagnosed based on abnormaliti es of kidney structure or function, present for >3 months, with implication s for health and disease. CKD is classified and staged based on cause, eGFR and albuminuria (quantified as urine albumin to creatinine ratio). An eGFR >60 mL/min/1.73 m2 in the absence of increased urine albumin excretion or structural abnormaliti es does not represent CKD. eGFR CKD Interpretat ion (mL/min/1.7 3 m2) stage >=90 G1 Normal 60-89 G2 Mild decrease 45-59 G3A Mild to moderate decrease 30-44 G3B Moderate to severe decrease 15-29 G4 Severe decrease <15 G5 Kidney failure Ordering Provider: MELVIN COBB RA Report Released Date/Time: December 03, 2024 01:24 PM Reporting Lab: [facility] [address] [address] Performing Lab: [facility] [address] [address] [facility] PANEL 5 CALCIUM [MASS/VOLU ME] IN SERUM OR PLASMA 9.3 mg/dL 8.4 - 10.2 12/03 Specimen Type: PLASMA Comment: Estimated Glomerular Filtration Rate (eGFR) calculated using the 2020 Chronic Kidney Disease-Epi demiology (CKD-EPI) Collaborati on creatinine equation; units of measure are mL/min/1.73 m2. Results are only valid for adults (>=18 years) whose serum creatinine is in a steady state. eGFR calculation s are not valid for patients with acute kidney injury and for patients on dialysis. Creatinine- based estimates of kidney function may also be inaccurate in patients with reduced creatinine generation due to decreased muscle mass (e.g., malnutritio n, severe hypoalbumin emia, sarcopenia, chronic neuromuscul ar disease, amputations , severe heart failure or liver disease) and in patients with increased creatinine generation due to increased muscle mass (e.g., muscle builders, anabolic steroids) or increased dietary intake. As drug clearance is proportiona l to total GFR and not GFR indexed to body surface area (BSA), in individuals with a BSA substantial ly different than 1.73 m2, drug dosing should be based on the reported eGFR value de-indexed from BSA by multiplying by the individual' s BSA and dividing by 1.73. CKD is diagnosed based on abnormaliti es of kidney structure or function, present for >3 months, with implication s for health and disease. CKD is classified and staged based on cause, eGFR and albuminuria (quantified as urine albumin to creatinine ratio). An eGFR >60 mL/min/1.73 m2 in the absence of increased urine albumin excretion or structural abnormaliti es does not represent CKD. eGFR CKD Interpretat ion (mL/min/1.7 3 m2) stage >=90 G1 Normal 60-89 G2 Mild decrease 45-59 G3A Mild to moderate decrease 30-44 G3B Moderate to severe decrease 15-29 G4 Severe decrease <15 G5 Kidney failure Ordering Provider: MELVIN COBB RA Report Released Date/Time: December 03, 2024 01:24 PM Reporting Lab: [facility] [address] [address] Performing Lab: [facility] [address] [address] [facility] PANEL 5 PROTEIN [MASS/VOLU ME] IN SERUM OR PLASMA 7.8 g/dL 6.4 - 8.3 12/03 Specimen Type: PLASMA Comment: Estimated Glomerular Filtration Rate (eGFR) calculated using the 2020 Chronic Kidney Disease-Epi demiology (CKD-EPI) Collaborati on creatinine equation; units of measure are mL/min/1.73 m2. Results are only valid for adults (>=18 years) whose serum creatinine is in a steady state. eGFR calculation s are not valid for patients with acute kidney injury and for patients on dialysis. Creatinine- based estimates of kidney function may also be inaccurate in patients with reduced creatinine generation due to decreased muscle mass (e.g., malnutritio n, severe hypoalbumin emia, sarcopenia, chronic neuromuscul ar disease, amputations , severe heart failure or liver disease) and in patients with increased creatinine generation due to increased muscle mass (e.g., muscle builders, anabolic steroids) or increased dietary intake. As drug clearance is proportiona l to total GFR and not GFR indexed to body surface area (BSA), in individuals with a BSA substantial ly different than 1.73 m2, drug dosing should be based on the reported eGFR value de-indexed from BSA by multiplying by the individual' s BSA and dividing by 1.73. CKD is diagnosed based on abnormaliti es of kidney structure or function, present for >3 months, with implication s for health and disease. CKD is classified and staged based on cause, eGFR and albuminuria (quantified as urine albumin to creatinine ratio). An eGFR >60 mL/min/1.73 m2 in the absence of increased urine albumin excretion or structural abnormaliti es does not represent CKD. eGFR CKD Interpretat ion (mL/min/1.7 3 m2) stage >=90 G1 Normal 60-89 G2 Mild decrease 45-59 G3A Mild to moderate decrease 30-44 G3B Moderate to severe decrease 15-29 G4 Severe decrease <15 G5 Kidney failure Ordering Provider: MELVIN COBB RA Report Released Date/Time: December 03, 2024 01:24 PM Reporting Lab: [facility] GUAN [address] [address] Performing Lab: ARSHAlex GUAN [address] [address] [facility] PANEL 5 ALBUMIN [MASS/VOLU ME] IN SERUM OR PLASMA 4.2 g/dL 3.5 - 5.2 12/03 Specimen Type: PLASMA Comment: Estimated Glomerular Filtration Rate (eGFR) calculated using the 2020 Chronic Kidney Disease-Epi demiology (CKD-EPI) Collaborati on creatinine equation; units of measure are mL/min/1.73 m2. Results are only valid for adults (>=18 years) whose serum creatinine is in a steady state. eGFR calculation s are not valid for patients with acute kidney injury and for patients on dialysis. Creatinine- based estimates of kidney function may also be inaccurate in patients with reduced creatinine generation due to decreased muscle mass (e.g., malnutritio n, severe hypoalbumin emia, sarcopenia, chronic neuromuscul ar disease, amputations , severe heart failure or liver disease) and in patients with increased creatinine generation due to increased muscle mass (e.g., muscle builders, anabolic steroids) or increased dietary intake. As drug clearance is proportiona l to total GFR and not GFR indexed to body surface area (BSA), in individuals with a BSA substantial ly different than 1.73 m2, drug dosing should be based on the reported eGFR value de-indexed from BSA by multiplying by the individual' s BSA and dividing by 1.73. CKD is diagnosed based on abnormaliti es of kidney structure or function, present for >3 months, with implication s for health and disease. CKD is classified and staged based on cause, eGFR and albuminuria (quantified as urine albumin to creatinine ratio). An eGFR >60 mL/min/1.73 m2 in the absence of increased urine albumin excretion or structural abnormaliti es does not represent CKD. eGFR CKD Interpretat ion (mL/min/1.7 3 m2) stage >=90 G1 Normal 60-89 G2 Mild decrease 45-59 G3A Mild to moderate decrease 30-44 G3B Moderate to severe decrease 15-29 G4 Severe decrease <15 G5 Kidney failure Ordering Provider: MELVIN COBB RA Report Released Date/Time: December 03, 2024 01:24 PM Reporting Lab: [address] [address] Performing Lab: [address] [address] [facility] PANEL 5 BILIRUBIN. TOTAL [MASS/VOLU ME] IN SERUM OR PLASMA 0.8 mg/dL 0.2 - 1.2 12/03 Specimen Type: PLASMA Comment: Estimated Glomerular Filtration Rate (eGFR) calculated using the 2020 Chronic Kidney Disease-Epi demiology (CKD-EPI) Collaborati on creatinine equation; units of measure are mL/min/1.73 m2. Results are only valid for adults (>=18 years) whose serum creatinine is in a steady state. eGFR calculation s are not valid for patients with acute kidney injury and for patients on dialysis. Creatinine- based estimates of kidney function may also be inaccurate in patients with reduced creatinine generation due to decreased muscle mass (e.g., malnutritio n, severe hypoalbumin emia, sarcopenia, chronic neuromuscul ar disease, amputations , severe heart failure or liver disease) and in patients with increased creatinine generation due to increased muscle mass (e.g., muscle builders, anabolic steroids) or increased dietary intake. As drug clearance is proportiona l to total GFR and not GFR indexed to body surface area (BSA), in individuals with a BSA substantial ly different than 1.73 m2, drug dosing should be based on the reported eGFR value de-indexed from BSA by multiplying by the individual' s BSA and dividing by 1.73. CKD is diagnosed based on abnormaliti es of kidney structure or function, present for >3 months, with implication s for health and disease. CKD is classified and staged based on cause, eGFR and albuminuria (quantified as urine albumin to creatinine ratio). An eGFR >60 mL/min/1.73 m2 in the absence of increased urine albumin excretion or structural abnormaliti es does not represent CKD. eGFR CKD Interpretat ion (mL/min/1.7 3 m2) stage >=90 G1 Normal 60-89 G2 Mild decrease 45-59 G3A Mild to moderate decrease 30-44 G3B Moderate to severe decrease 15-29 G4 Severe decrease <15 G5 Kidney failure Ordering Provider: MELVIN COBB RA Report Released Date/Time: December 03, 2024 01:24 PM Reporting Lab: [facility] GU[facility] [address] [address] Performing Lab: K[facility]IL[facility] GUAN [address] [address] [facility] PANEL 5 ASPARTATE AMINOTRANS FERASE [ENZYMATIC ACTIVITY/V OLUME] IN SERUM OR PLASMA 18 U/L 5 - 34 12/03 Specimen Type: PLASMA Comment: Estimated Glomerular Filtration Rate (eGFR) calculated using the 2020 Chronic Kidney Disease-Epi demiology (CKD-EPI) Collaborati on creatinine equation; units of measure are mL/min/1.73 m2. Results are only valid for adults (>=18 years) whose serum creatinine is in a steady state. eGFR calculation s are not valid for patients with acute kidney injury and for patients on dialysis. Creatinine- based estimates of kidney function may also be inaccurate in patients with reduced creatinine generation due to decreased muscle mass (e.g., malnutritio n, severe hypoalbumin emia, sarcopenia, chronic neuromuscul ar disease, amputations , severe heart failure or liver disease) and in patients with increased creatinine generation due to increased muscle mass (e.g., muscle builders, anabolic steroids) or increased dietary intake. As drug clearance is proportiona l to total GFR and not GFR indexed to body surface area (BSA), in individuals with a BSA substantial ly different than 1.73 m2, drug dosing should be based on the reported eGFR value de-indexed from BSA by multiplying by the individual' s BSA and dividing by 1.73. CKD is diagnosed based on abnormaliti es of kidney structure or function, present for >3 months, with implication s for health and disease. CKD is classified and staged based on cause, eGFR and albuminuria (quantified as urine albumin to creatinine ratio). An eGFR >60 mL/min/1.73 m2 in the absence of increased urine albumin excretion or structural abnormaliti es does not represent CKD. eGFR CKD Interpretat ion (mL/min/1.7 3 m2) stage >=90 G1 Normal 60-89 G2 Mild decrease 45-59 G3A Mild to moderate decrease 30-44 G3B Moderate to severe decrease 15-29 G4 Severe decrease <15 G5 Kidney failure Ordering Provider: MELVIN COBB RA Report Released Date/Time: December 03, 2024 01:24 PM Reporting Lab: [facility] GU[facility] [address] [address] Performing Lab: K[facility] GUAN [address] [address] [facility] PANEL 5 ALANINE AMINOTRANS FERASE [ENZYMATIC ACTIVITY/V OLUME] IN SERUM OR PLASMA 14 U/L 0 - 55 12/03 Specimen Type: PLASMA Comment: Estimated Glomerular Filtration Rate (eGFR) calculated using the 2020 Chronic Kidney Disease-Epi demiology (CKD-EPI) Collaborati on creatinine equation; units of measure are mL/min/1.73 m2. Results are only valid for adults (>=18 years) whose serum creatinine is in a steady state. eGFR calculation s are not valid for patients with acute kidney injury and for patients on dialysis. Creatinine- based estimates of kidney function may also be inaccurate in patients with reduced creatinine generation due to decreased muscle mass (e.g., malnutritio n, severe hypoalbumin emia, sarcopenia, chronic neuromuscul ar disease, amputations , severe heart failure or liver disease) and in patients with increased creatinine generation due to increased muscle mass (e.g., muscle builders, anabolic steroids) or increased dietary intake. As drug clearance is proportiona l to total GFR and not GFR indexed to body surface area (BSA), in individuals with a BSA substantial ly different than 1.73 m2, drug dosing should be based on the reported eGFR value de-indexed from BSA by multiplying by the individual' s BSA and dividing by 1.73. CKD is diagnosed based on abnormaliti es of kidney structure or function, present for >3 months, with implication s for health and disease. CKD is classified and staged based on cause, eGFR and albuminuria (quantified as urine albumin to creatinine ratio). An eGFR >60 mL/min/1.73 m2 in the absence of increased urine albumin excretion or structural abnormaliti es does not represent CKD. eGFR CKD Interpretat ion (mL/min/1.7 3 m2) stage >=90 G1 Normal 60-89 G2 Mild decrease 45-59 G3A Mild to moderate decrease 30-44 G3B Moderate to severe decrease 15-29 G4 Severe decrease <15 G5 Kidney failure Ordering Provider: MELVIN COBB RA Report Released Date/Time: December 03, 2024 01:24 PM Reporting Lab: [facility] [address] [address] Performing Lab: [facility] GUAN [address] [address] [facility] PANEL 5 ANION GAP 3 IN SERUM OR PLASMA 7 meq/L 3 - 19 12/03 Specimen Type: PLASMA Comment: Estimated Glomerular Filtration Rate (eGFR) calculated using the 2020 Chronic Kidney Disease-Epi demiology (CKD-EPI) Collaborati on creatinine equation; units of measure are mL/min/1.73 m2. Results are only valid for adults (>=18 years) whose serum creatinine is in a steady state. eGFR calculation s are not valid for patients with acute kidney injury and for patients on dialysis. Creatinine- based estimates of kidney function may also be inaccurate in patients with reduced creatinine generation due to decreased muscle mass (e.g., malnutritio n, severe hypoalbumin emia, sarcopenia, chronic neuromuscul ar disease, amputations , severe heart failure or liver disease) and in patients with increased creatinine generation due to increased muscle mass (e.g., muscle builders, anabolic steroids) or increased dietary intake. As drug clearance is proportiona l to total GFR and not GFR indexed to body surface area (BSA), in individuals with a BSA substantial ly different than 1.73 m2, drug dosing should be based on the reported eGFR value de-indexed from BSA by multiplying by the individual' s BSA and dividing by 1.73. CKD is diagnosed based on abnormaliti es of kidney structure or function, present for >3 months, with implication s for health and disease. CKD is classified and staged based on cause, eGFR and albuminuria (quantified as urine albumin to creatinine ratio). An eGFR >60 mL/min/1.73 m2 in the absence of increased urine albumin excretion or structural abnormaliti es does not represent CKD. eGFR CKD Interpretat ion (mL/min/1.7 3 m2) stage >=90 G1 Normal 60-89 G2 Mild decrease 45-59 G3A Mild to moderate decrease 30-44 G3B Moderate to severe decrease 15-29 G4 Severe decrease <15 G5 Kidney failure Ordering Provider: MELVIN COBB RA Report Released Date/Time: December 03, 2024 01:24 PM Reporting Lab: [facility]IL[facility] UGAN [address] [address] Performing Lab: K[facility]ILA GUAN [address] [address] [facility] PANEL 5 ALKALINE PHOSPHATAS E [ENZYMATIC ACTIVITY/V OLUME] IN SERUM OR PLASMA 116 U/L 40 - 150 12/03 Specimen Type: PLASMA Comment: Estimated Glomerular Filtration Rate (eGFR) calculated using the 2020 Chronic Kidney Disease-Epi demiology (CKD-EPI) Collaborati on creatinine equation; units of measure are mL/min/1.73 m2. Results are only valid for adults (>=18 years) whose serum creatinine is in a steady state. eGFR calculation s are not valid for patients with acute kidney injury and for patients on dialysis. Creatinine- based estimates of kidney function may also be inaccurate in patients with reduced creatinine generation due to decreased muscle mass (e.g., malnutritio n, severe hypoalbumin emia, sarcopenia, chronic neuromuscul ar disease, amputations , severe heart failure or liver disease) and in patients with increased creatinine generation due to increased muscle mass (e.g., muscle builders, anabolic steroids) or increased dietary intake. As drug clearance is proportiona l to total GFR and not GFR indexed to body surface area (BSA), in individuals with a BSA substantial ly different than 1.73 m2, drug dosing should be based on the reported eGFR value de-indexed from BSA by multiplying by the individual' s BSA and dividing by 1.73. CKD is diagnosed based on abnormaliti es of kidney structure or function, present for >3 months, with implication s for health and disease. CKD is classified and staged based on cause, eGFR and albuminuria (quantified as urine albumin to creatinine ratio). An eGFR >60 mL/min/1.73 m2 in the absence of increased urine albumin excretion or structural abnormaliti es does not represent CKD. eGFR CKD Interpretat ion (mL/min/1.7 3 m2) stage >=90 G1 Normal 60-89 G2 Mild decrease 45-59 G3A Mild to moderate decrease 30-44 G3B Moderate to severe decrease 15-29 G4 Severe decrease <15 G5 Kidney failure Ordering Provider: MELVIN COBB RA Report Released Date/Time: December 03, 2024 01:24 PM Reporting Lab: [facility] [address] [address] Performing Lab: [facility] GUAN [address] [address] [facility] PANEL 5 GLOMERULAR FILTRATION RATE/1.73 SQ M.PREDICTE D [VOLUME RATE/AREA] IN SERUM, PLASMA OR BLOOD BY CREATININE -BASED FORMULA (CKD-EPI 2020) 31 12/03 Specimen Type: PLASMA Comment: Estimated Glomerular Filtration Rate (eGFR) calculated using the 2020 Chronic Kidney Disease-Epi demiology (CKD-EPI) Collaborati on creatinine equation; units of measure are mL/min/1.73 m2. Results are only valid for adults (>=18 years) whose serum creatinine is in a steady state. eGFR calculation s are not valid for patients with acute kidney injury and for patients on dialysis. Creatinine- based estimates of kidney function may also be inaccurate in patients with reduced creatinine generation due to decreased muscle mass (e.g., malnutritio n, severe hypoalbumin emia, sarcopenia, chronic neuromuscul ar disease, amputations , severe heart failure or liver disease) and in patients with increased creatinine generation due to increased muscle mass (e.g., muscle builders, anabolic steroids) or increased dietary intake. As drug clearance is proportiona l to total GFR and not GFR indexed to body surface area (BSA), in individuals with a BSA substantial ly different than 1.73 m2, drug dosing should be based on the reported eGFR value de-indexed from BSA by multiplying by the individual' s BSA and dividing by 1.73. CKD is diagnosed based on abnormaliti es of kidney structure or function, present for >3 months, with implication s for health and disease. CKD is classified and staged based on cause, eGFR and albuminuria (quantified as urine albumin to creatinine ratio). An eGFR >60 mL/min/1.73 m2 in the absence of increased urine albumin excretion or structural abnormaliti es does not represent CKD. eGFR CKD Interpretat ion (mL/min/1.7 3 m2) stage >=90 G1 Normal 60-89 G2 Mild decrease 45-59 G3A Mild to moderate decrease 30-44 G3B Moderate to severe decrease 15-29 G4 Severe decrease <15 G5 Kidney failure Ordering Provider: MELVIN COBB RA Report Released Date/Time: December 03, 2024 01:24 PM Reporting Lab: [facility] [address] [address] Performing Lab: K[facility] GUAN [address] [address] [facility] Vital Signs Combined list of inpatient and outpatient Vital Signs from Department of Defense and Veterans Affairs, ranging from 12 months to all on record, depending upon the facility. Vital Sign Value Date Comments Source SYSTOLIC BLOOD PRESSURE 131 12/03/2024 13:07:49 [facility] DIASTOLIC BLOOD PRESSURE 67 12/03/2024 13:07:49 [facility] PULSE OXIMETRY 96 12/03/2024 13:07:49 [place] [facility] WEIGHT 186 12/03/2024 13:07:49 [place] [facility] BMI 30 kg/m2 12/03/2024 13:07:49 [place] [facility] PAIN 0 12/03/2024 13:07:49 [place] [facility] TEMPERATURE 97.3 12/03/2024 13:07:49 [facility] PULSE 62 12/03/2024 13:07:49 [place] [facility] SYSTOLIC BLOOD PRESSURE 152 10/25/2024 08:27:00 [place] [facility] DIASTOLIC BLOOD PRESSURE 76 10/25/2024 08:27:00 [place] [facility] PULSE OXIMETRY 98 10/25/2024 08:27:00 [place] [facility] WEIGHT 187.4 10/25/2024 08:27:00 [place] [facility] [facility] BMI 30 kg/m2 10/25/2024 08:27:00 [place] [facility] PAIN 0 10/25/2024 08:27:00 [place] [facility] TEMPERATURE 97.8 10/25/2024 08:27:00 [facility] PULSE 72 10/25/2024 08:27:00 [place] [facility] SYSTOLIC BLOOD PRESSURE 132 10/02/2024 12:11:00 [place] [facility] DIASTOLIC BLOOD PRESSURE 64 10/02/2024 12:11:00 [place] [facility] PULSE OXIMETRY 96 10/02/2024 12:11:00 [place] [facility] WEIGHT 188.0 10/02/2024 12:11:00 [place] [facility] BMI 30 kg/m2 10/02/2024 12:11:00 [place] [facility] PAIN 0 10/02/2024 12:11:00 [place] [facility] TEMPERATURE 97.5 10/02/2024 12:11:00 [facility] PULSE 72 10/02/2024 12:11:00 [place] [facility] SYSTOLIC BLOOD PRESSURE 135 08/07/2024 [facility]30[facility] 68 08/07/2024 [facility]:30[facility] 97 08/07/2024 14:30:00 [facility] WEIGHT 185.0 08/07/2024 14:30:00 [place] [facility] BMI 30 kg/m2 08/07/2024 14:30:00 [place] [facility] PAIN 0 08/07/2024 14:30:00 [place] [facility] TEMPERATURE 97.3 08/07/2024 14:30:00 [facility] PULSE 67 08/07/2024 14:30:00 [place] [facility] SYSTOLIC BLOOD PRESSURE 143 06/26/2024 12:24:00 [place] [facility] DIASTOLIC BLOOD PRESSURE 68 06/26/2024 12:24:00 [place] [facility] PULSE OXIMETRY 97 06/26/2024 12:24:00 [facility] WEIGHT 182.2 06/26/2024 12:24:00 [place] [facility] BMI 29 kg/m2 06/26/2024 12:24:00 [place] [facility] PAIN 0 06/26/2024 12:24:00 [place] [facility] PULSE 71 06/26/2024 12:24:00 [place] [facility] RESPIRATION 12 06/26/2024 12:24:00 [facility] Encounters Combined list of: 1) Encounters from Department of Veterans Affairs facilities going backup to the last 18 months, not all VA inpatient encounters are included; 2) Encounters from the Department of Defense facilities going backup to 280 months. Location Location Details Encounter Type Encounter Number Reason For Visit Attending Provider ADM Date DC Date Status Disposition Source [facility] EMERGENCY DEPT VISIT LOW [facility] [id number] Diagnos is: ICD-10- CM M25.461 Effusio n, right knee PERDOMO,MAT THEW E 07/05 [place] OFFICE O/P EST SF 10-19 MIN [id number] Diagnos is: ICD-10- CM L57.0 Actinic keratos is DIPAK QUINTANA S 07/08 [place] Outpatient Encounter [id number] ZIONSANJUANITA ANDREA M 07/13 [place] [facility] Outpatient Encounter [id number] 07/26 [place] Outpatient Encounter [id number] 08/04 [place] [facility] Outpatient Encounter [id number] 08/19 [place] Outpatient Encounter [id number] 08/19 [place] [facility] OFFICE O/P EST MOD 30 MIN [id number] Diagnos is: ICD-10- CM 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 Fina CHOW 08/23 [place] Outpatient Encounter [id number] 08/29 [place] [facility] OFFICE O/P EST MOD 30 MIN [id number] Diagnos is: ICD-10- CM D48.5 Neoplas m of uncerta in behavio r of skin GIRVIANNEYDIPAK NG S 10/18 [place] Outpatient Encounter [id number] RONEL JURADO S 10/23 [place] [facility] HC PRO PHONE CALL 5-10 MIN [id number] Diagnos is: ICD-10- CM 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 Fina Perez T 10/25 [place] Outpatient Encounter [id number] 10/26 [place] [facility] Outpatient Encounter [id number] PRITESH CAN S 10/30 [place] OFFICE O/P EST MOD 30 MIN [id number] Diagnos is: ICD-10- CM N18.4 Chronic kidney disease , stage 4 (severe ) Fina CHOW 11/28 [place] [facility] Outpatient Encounter [id number] SILVANA JOY 11/28 [place] Outpatient Encounter [id number] [id number] 11/29 [place] [facility] HC PRO PHONE CALL 11-20 MIN 42120-6.59 [id number] Diagnos is: ICD-10- CM 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 VALERI López S 11/29 [place] [facility] HC PRO PHONE CALL 5-10 MIN [id number] Diagnos is: ICD-10- CM N18.4 Chronic kidney disease , stage 4 (severe ) VALERI STEVE S 11/30 [place] [facility] HEARING AID REPAIR/MOD IFYING 93586-1.59 [id number] Diagnos is: ICD-10- CM Z46.1 Encount er for fitting and adjustm ent of hearing aid ORLANDO HAQ S 11/30 [place] OFFICE O/P EST MOD 30 MIN 40902-9.59 [id number] Diagnos is: ICD-10- CM N18.5 Chronic kidney disease , stage 5 Juan KING M 01/30 [place] Outpatient Encounter [id number] 02/01 [place] [facility] Outpatient Encounter [id number] [id number] 02/16 [place] [facility] EMERGENCY DEPT VISIT LOW MDM 57783-5.59 [id number] 02 Diagnos is: ICD-10- CM R29.810 Facial weakdeisy s VERA- JONY OSORIO 03/04 [place] [facility] Outpatient Encounter 25783-2.59 [id number] 57 03/04 [place] [facility] OFF/OP EST MAY X REQ PHY/QHP [id number] [id number] Diagnos is: ICD-10- CM R29.810 Facial weakdeisy s VICKEY WALTERS MY 03/05 [place] [facility] CASE MANAGEMENT 56625-0.59 [id number] Diagnos is: ICD-10- CM N18.4 Chronic kidney disease , stage 4 (severe ) ASHLYN GODINEZ 03/06 [place] MEDICAL NUTRITION GROUP 29609-7.59 [id number] Diagnos is: ICD-10- CM N18.4 Chronic kidney disease , stage 4 (severe ) ST JOSEPHINE VAZQUEZ 03/06 [place] OFF/OP CNSLTJ NEW/EST LOW 30 76605-4.59 [id number] 55 Diagnos is: ICD-10- CM N18.4 Chronic kidney disease , stage 4 (severe ) JOYCEMimi S 03/06 [place] Outpatient Encounter [id number] [id number] 22 03/06 [place] [facility] OFF/OP EST MAY X REQ PHY/QHP [id number] [id number] Diagnos is: ICD-10- CM 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 VICKEY Hernandez 03/07 [place] [facility] CASE MANAGEMENT 86227-6.59 [id number] Diagnos is: ICD-10- CM N18.4 Chronic kidney disease , stage 4 (severe ) ASHLYN GODINEZ 03/13 [place] Outpatient Encounter [id number] [id number] 03/19 [place] [facility] Outpatient Encounter [id number] [id number] 03/21 [place] [facility] OFFICE O/P EST MOD 30 MIN [id number] [id number] Diagnos is: ICD-10- CM G45.9 Transie nt cerebra l ischemi c attack, unspeci fied DEMARCO YAO CIA 03/21 [place] [facility] OFF/OP EST MAY X REQ PHY/QHP [id number] [id number] Diagnos is: ICD-10- CM 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 kdVICKEY Cartagena MY 04/03 [place] [facility] Outpatient Encounter [id number] [id number] 04/05 [place] OFF/OP EST MAY X REQ PHY/QHP 15610-4.59 [id number] Diagnos is: ICD-10- CM 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 VICKEY Hernandez MY 04/05 [place] [facility] CASE MANAGEMENT 52328-4.59 [id number] Diagnos is: ICD-10- CM N18.4 Chronic kidney disease , stage 4 (severe ) ASHLYN GODINEZ 04/09 [place] Outpatient Encounter [id number] 04/10 [place] [facility] HC PRO PHONE CALL 21-30 MIN [id number] [id number] Diagnos is: ICD-10- CM I10 Essenti al (primar y) hyperte nsion GARCIA BRUNNER 04/10 [place] [facility] Outpatient Encounter [id number] 04/10 [place] [facility] HC PRO PHONE CALL 21-30 MIN [id number] [id number] Diagnos is: ICD-10- CM I50.22 Chronic systoli c (conges tive) heart failure GARCIA BRUNNER 04/10 [place] [facility] OFFICE O/P EST SF 10 MIN 25588-9.59 [id number] Diagnos is: ICD-10- CM L82.1 Other seborrh eic keratos is DIPAK QUINTANA NG S 04/12 [place] EXT ECG>7D<15D REC SCAN A/R 73615-5.59 [id number] Diagnos is: ICD-10- CM Z13.6 Encount er for screeni ng for cardiov ascular disorde rs RANDI,PROFESSIONAL DEVELOPMENT INSTRUCTOR IG A 04/12 [place] OFFICE O/P EST MOD 30 MIN [id number] [id number] Diagnos is: ICD-10- CM 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 [id number] Diagnos is: ICD-10- CM I11.0 Hyperte nsive heart disease with heart failure GARCIA BRUNNER 05/01 [place] [facility] Outpatient Encounter [id number] [id number] 05/04 [place] [facility] EXT ECG>7D<15D REC SCAN A/R 32819-2.59 [id number] Diagnos is: ICD-10- CM Z13.6 Encount er for screeni ng for cardiov ascular disorde GEMMA Torre IG A 05/09 [place] [facility] Outpatient Encounter [id number] [id number] Diagnos is: ICD-10- CM Z03.89 Encntr for obs for oth suspect ed disease s and cond ruled out GARCIA BRUNNER M 05/10 [place] [facility] OFF/OP CNSLTJ NEW/EST LOW 30 61052-3.59 [id number] 64 Diagnos is: ICD-10- CM R51.9 Headach e, unspeci fied Fina MEDINA 05/10 [place] Outpatient Encounter [id number] [id number] Diagnos is: ICD-10- CM R00.2 Palpita tiCAROL Martin R 05/17 [place] [facility] HC PRO PHONE CALL 5-10 MIN 75780-5.59 [id number] Diagnos is: ICD-10- CM 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 Dickinson M 05/18 [place] [facility] OFFICE O/P EST SF 10 MIN 72928-4.59 [id number] Diagnos is: ICD-10- CM L57.0 Actinic keratos is ANNALISAR,YO NG S 05/24 [place] [facility] OFFICE O/P EST MOD 30 MIN [id number] [id number] Diagnos is: ICD-10- CM I25.10 Athscl heart disease of [place] coronar y artery w/o ang pctrs VERA COBB R 05/25 [place] [facility] Outpatient Encounter [id number] 05/28 [place] [facility] Outpatient Encounter [id number] [id number] 05/30 [place] [facility] HC PRO PHONE CALL 5-10 MIN 07646-3.59 [id number] Diagnos is: ICD-10- CM 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 JOSE BAJWA 05/30 [place] [facility] HC PRO PHONE CALL 11-20 MIN [id number] [id number] Diagnos is: ICD-10- CM 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 GARCIA BRUNNER 06/07 [place] [facility] Outpatient Encounter [id number] [id number] 06/11 [place] [facility] HC PRO PHONE CALL 5-10 MIN [id number] [id number] Diagnos is: ICD-10- CM I10 Essenti al (primar y) hyperte nsion GARCIA BRUNNER 06/12 [place] [facility] HC PRO PHONE CALL 5-10 MIN [id number] [id number] Diagnos is: ICD-10- CM N18.4 Chronic kidney disease , stage 4 (severe ) VALERI STEVE S 06/15 [place] [facility] Outpatient Encounter [id number] [id number] Diagnos is: ICD-10- CM Z03.89 Encntr for obs for oth suspect ed disease s and cond ruled out GARCIA BRUNNER 06/15 [place] [facility] HC PRO PHONE CALL 11-20 MIN [id number] [id number] Diagnos is: ICD-10- CM I10 Essenti al (primar y) hyperte GARCIA Gupta 06/18 [place] [facility] BREATHING CAPACITY TEST 35682-2.59 [id number] Diagnos is: ICD-10- CM Z13.83 Encount er for screeni ng for respira tory disorde r EDMUND POTTER 06/20 [place] [facility] OFFICE O/P NEW MOD 45 MIN 71415-9.59 [id number] Diagnos is: ICD-10- CM J84.89 Other specifi ed interst itial pulmona ry disease s CALVIN OLMOS 06/26 [place] OFFICE O/P EST MOD 30 MIN 76161-5.59 [id number] Diagnos is: ICD-10- CM Z79.02 medical terminologist (curren t) use of antithr ombotic s/antip latelet s Juan KING 06/26 [place] [facility] HC PRO PHONE CALL 11-20 MIN [id number] [id number] Diagnos is: ICD-10- CM I10 Essenti al (primar y) hyperte GARCIA Gupta 06/27 [place] [facility] HC PRO PHONE CALL 5-10 MIN [id number] [id number] Diagnos is: ICD-10- CM 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 KEVIN Estrada 06/27 [place] [facility] HC PRO PHONE CALL 5-10 MIN 88435-4.59 [id number] Diagnos is: ICD-10- CM I10 Essenti al (primar y) hyperte GARCIA Gupta 06/28 [place] [facility] Outpatient Encounter [id number] [id number] Diagnos is: ICD-10- CM Z03.89 Encntr for obs for oth suspect ed disease s and cond ruled out GARCIA BRUNNER 07/12 [place] [facility] HC PRO PHONE CALL 5-10 MIN 01688-9.59 [id number] Diagnos is: ICD-10- CM I10 Essenti al (primar y) hyperte daniele GARCIA BRUNNER 07/24 [place] [facility] Outpatient Encounter [id number] 07/24 [place] [facility] Outpatient Encounter [id number] [id number] 07/24 [place] PH1 ASSMT&MGMT NQHP 5-10 [id number] [id number] Diagnos is: ICD-10- CM I10 Essenti al (primar y) hyperte nsion GARCIA BRUNNER 07/30 [place] [facility] OFFICE O/P EST MOD 30 MIN 36638-5.59 [id number] 95 Diagnos is: ICD-10- CM J84.9 Interst itial pulmona ry disease , unspeci fied KRISTI NAIK 08/07 [place] Outpatient Encounter [id number] [id number] 08/10 [place] [facility] Outpatient Encounter [id number] [id number] Diagnos is: ICD-10- CM Z03.89 Encntr for obs for oth suspect ed disease s and cond ruled out GARCIA BRUNNER 08/15 [place] [facility] Outpatient Encounter [id number] [id number] 08/20 [place] [address] ASSMT&MGMT NQHP 11-20 54653-6.59 [id number] Diagnos is: ICD-10- CM I10 Essenti al (primar y) hyperte nsion GARCIA BRUNNER 08/28 [place] [address] ASSMT&MGMT NQHP 5-10 03693-0.59 [id number] Diagnos is: ICD-10- CM N13.39 Other hydrone phrosis VALERI STEVE S 09/03 [place] [facility] Outpatient Encounter [id number] [id number] 09/11 [place] [facility] Outpatient Encounter 72574-3.59 [id number] 09/19 [place] [facility] Outpatient Encounter [id number] [id number] Diagnos is: ICD-10- CM Z03.89 Encntr for obs for oth suspect ed disease s and cond ruled out GARCIA BRUNNER 09/20 [place] [facility] OFFICE O/P EST MOD 30 MIN 71435-1.59 [id number] Diagnos is: ICD-10- CM 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 GALLEGOSRICARDO HN W 10/02 [place] [facility] Outpatient Encounter [id number] [id number] 02 10/04 [place] [address] ASSMT&MGMT NQHP 21-30 [id number] [id number] Diagnos is: ICD-10- CM I10 Essenti al (primar y) hyperte nsion GARCIA BRUNNER 10/15 [place] [facility] Outpatient Encounter [id number] [id number] Diagnos is: ICD-10- CM Z03.89 Encntr for obs for oth suspect ed disease s and cond ruled out GARCIA BRUNNER 10/19 [place] [facility] Outpatient Encounter [id number] [id number] Diagnos is: ICD-10- CM Z03.89 Encntr for obs for oth suspect ed disease s and cond ruled out GARCIA BRUNNER 10/22 [place] [facility] OFFICE O/P NEW LOW 30 MIN 03581-2.59 [id number] Diagnos is: ICD-10- CM R76.0 Raised antibod y titer BENJAMIN FOWLER 10/25 [place] [facility] Outpatient Encounter [id number] [id number] Diagnos is: ICD-10- CM Z03.89 Encntr for obs for oth suspect ed disease s and cond ruled out GARCIA BRUNNER 11/09 [place] [facility] Outpatient Encounter [id number] [id number] 11/[address] [place] [address] [facility] ASSMT&MGMT NQHP 11-20 [id number] [id number] Diagnos is: ICD-10- CM I10 Essenti al (primar y) hyperte nsion GARCIA BRUNNER 11/15 [place] [facility] PH1 ASSMT&MGMT NQHP 11-20 [id number] [id number] Diagnos is: ICD-10- CM I10 Essenti al (primar y) hyperte nsion GARCIA BRUNNER 11/[address] [place] [address] [facility] ASSMT&MGMT NQHP 5-10 [id number] [id number] Diagnos is: ICD-10- CM I10 Essenti al (primar y) hyperte IRASEMA GuptaCACHORRO Martinez 11/27 [place] [address] ASSMT&MGMT NQHP 5-10 [id number] [id number] Diagnos is: ICD-10- CM R06.00 Dyspnea , unspeci fied VALERI STEVE S 11/27 [place] [address] ASSMT&MGMT NQHP 11-20 34460-7.59 [id number] Diagnos is: ICD-10- CM I10 Essenti al (primar y) hyperte IRASEMA GuptaCACHORRO Martinez 11/28 [place] [facility] OFFICE O/P EST HI 40 MIN 80677-8.59 [id number] Diagnos is: ICD-10- CM R06.09 Other forms of dyspnea VERA COBB R 12/03 [place] [facility] Outpatient Encounter 63688-4.59 [id number] 99 12/03 [place] [facility] ELECTROCAR DIOGRAM COMPLETE 96961-0.59 [id number] Diagnos is: ICD-10- CM 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 GEMMA Blair IG A 12/04 [place] [facility] Outpatient Encounter 10227-9.59 [id number] 06 12/05 [place] [facility] Outpatient Encounter 46471-5.59 [id number] Diagnos is: ICD-10- CM I20.9 Angina pectori s, unspeci fiCAROL Fortune R 12/05 [place] [facility] Outpatient Encounter [id number] [id number] 12/05 [place] [facility] TTE W/DOPPLER COMPLETE 13516-7.59 [id number] 31 Diagnos is: ICD-10- CM R06.00 Dyspnea , unspeci CAROL Alonso N R 12/06 [place] [address] ASSMT&MGMT NQHP 11-20 15386-5.59 [id number] Diagnos is: ICD-10- CM I10 Essenti al (primar y) hyperte GARCIA Gupta 12/11 [place] [address] ASSMT&MGMT NQHP 11-20 [id number] [id number] Diagnos is: ICD-10- CM I10 Essenti al (primar y) hyperte GARCIA Gupta 12/13 [place] [facility] Outpatient Encounter [id number] [id number] 12/14 [place] [facility] Outpatient Encounter [id number] [id number] 12/14 [place] [facility] Outpatient Encounter [id number] [id number] Diagnos is: ICD-10- CM 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 GARCIA Coker 12/20 [place] [address] ASSMT&MGMT NQHP 11-20 [id number] [id number] Diagnos is: ICD-10- CM I10 Essenti al (primar y) hyperte GARCIA Gupta 12/24 [place] [address] ASSMT&MGMT NQHP 5-10 30430-5.59 [id number] Diagnos is: ICD-10- CM I10 Essenti al (primar y) GARCIA Cuello 12/25 [place] [facility] PH1 ASSMT&MGMT NQHP 5-10 39145-8.59 [id number] Diagnos is: ICD-10- CM I10 Essenti al (primar y) GARCIA Cuello 12/26 [place] [facility] Social History Combined list of available smoking, tobacco, and other social history from Department of Defense and Veterans Affairs facilities. Social History Type Response Date Comment Source Tobacco smoking status [facility] NEVER USED 05/10/2024 [facility] History of tobacco use SD-TOBACCO FORMER USER 05/25/2023 [facility] History of tobacco use SD-TOBACCO FORMER USER 06/18/2022 [facility] History of tobacco use SD-TOBACCO FORMER USER 06/29/2021 [facility] History of tobacco use SD-TOBACCO FORMER USER 07/28/2020 [facility] History of tobacco use SD-TOBACCO NEVER USED 07/09/2019 [facility] History of tobacco use SD-TOBACCO FORMER USER 08/24/2018 [facility] History of tobacco use V9 LIFETIME NON-USER OF TOBACCO 09/22/2017 [facility] History of tobacco use NON-TOBACCO USE INPATIENT 05/19/2017 [facility] History of tobacco use NON-TOBACCO USE INPATIENT 09/07/2016 [facility] History of tobacco use V9 LIFETIME NON-USER OF TOBACCO 12/15/2015 [facility] History of tobacco use V9 LIFETIME NON-USER OF TOBACCO 06/14/2014 [facility] History of tobacco use V9 LIFETIME NON-USER OF TOBACCO 06/07/2013 [facility] History of tobacco use V9 LIFETIME NON-USER OF TOBACCO 05/29/2012 [facility] History of tobacco use V9 LIFETIME NON-USER OF TOBACCO 11/22/2011 [facility] History of tobacco use V9 QUIT TOBACCO >7 YEARS AGO 10/23/2010 [facility] History of tobacco use V9 LIFETIME NON-USER OF TOBACCO 05/30/2007 [facility] History of tobacco use HF V9 CURRENT NON-SMOKER 04/21/2004 quit smoking about 30 yrs ago [facility] History of tobacco use HF V9 CURRENT NON-SMOKER 09/06/2002 QUIT SMOKING ABOUT 31 YRS AGO [facility] This section is an empty social history section. [facility] Plan of Care List of future care activities from Department of [facility] Affairs facilities. Additional future care activities may be listed in the Assessment and Plan section. Date/Time Care Activity Care Activity Detail Phoebe sanches 01/04/2025 AMBULATORY - SURGERY AMBULATORY - SURGERY [facility]
[2024-12-29 23:30] VITALS: BP 138/71; PULSE 85; RESP 25; O2SAT 92
[2024-12-29 23:39] LABS: Basophils % 0.2 % (0.1-2.0); Eosinophils # 0.2 Kmm3 (0.0-0.4); Eosinophils % 1.4 % (0.1-12.0); Hematocrit 38.9 % (42.0-52.0); Hemoglobin 12.6 g/dL (14.1-18.0); Immature Granulocytes # 0.04 10^3uL; Immature Granulocytes % 0.4 %; Lymphocytes # 1.2 K/mm3 (0.7-4.5); Lymphocytes % 11.8 % (10-50); Mean Corpuscular HGB Conc 32.4 g/dL (31.8-35.4); Mean Corpuscular Hemoglobin 30.2 pg (27.0-31.2); Mean Corpuscular Volume 93.3 fl (80-94); Mean Platelet Volume 10.3 fl (7.4-10.4); Monocytes # 1.1 K/mm3 (0.1-1.0); Monocytes % 10.5 % (1.7-9.3); Neutrophils % 75.7 % (37.0-80.0); Nucleated Red Blood Cells # 0 10^3/uL; Nucleated Red Blood Cells % 0 %; Platelet Count 223 K/mm3 (142-424); Red Blood Count 4.17 M/mm3 (4.60-6.20); Red Cell Distribution Width 13.7 % (11.5-17.5); Red Cell Distribution Width-SD 46.7 fL; White Blood Count 10.5 K/mm3 (4.8-10.8)
[2024-12-29 23:44] LABS: Alanine Aminotransferase 16 U/L (12-78); Albumin Level 4.5 g/dl (3.5-5.0); Albumin/Globulin Ratio 1.5 (1.1-1.8); Alkaline Phosphatase 144 U/L (38-126); Aspartate Amino Transferase 38 U/L (17-59); Bilirubin,Total 0.6 mg/dl (0.2-1.3); Blood Urea Nitrogen 37 mg/dl (9-20); Calcium 8.8 mg/dl (8.4-10.2); Carbon Dioxide 29 mmol/L (22.0-30.0); Chloride 104 mmol/L (98-107); Creatinine Clearance Estimated 30 mL/min (50-200); Estimated Glomerular Filt Rate 30 ml/min (>60); GFR (African American) 37 ML/MIN (>60); Globulin 3.1 g/dL (1.3-3.2); Glucose 120 mg/dl (74-100); Sodium 137 mmol/L (136-145); Total Protein,Serum 7.6 g/dl (6.3-8.2)
[2024-12-29 23:53] LABS: NT Pro Brain Natriuretic Pep. 1860 pg/mL (0-450)
[2024-12-29 23:59] LABS: Troponin I < 0.01 ng/ml (0.00-0.034)
[2024-12-30] VITALS (13 sets, daily range): BP systolic 125–157; BP diastolic 65–81; PULSE 78–92; RESP 14–28; TEMP 36.9; O2SAT 90–97
[2024-12-30 00:02] LABS: HIV Combo NEGATIVE (Negative)
--- NOTE | 2024-12-30 00:04 | [facility].EDCP ---
Discharge Plan Disposition Patient Disposition: Xfer Short-Term Hosp Condition: Fair Prescriptions Prescriptions: No Action amlodipine 10 mg tablet 10 mg PO DAILY empagliflozin 10 mg tablet 10 mg PO DAILY PreserVision AREDS-2 250-90-40-1 mg tablet,chewable 1 tab PO BID mecobalamin (vitamin B12) 1,000 mcg tablet,chewable 1,000 mcg PO DAILY cholecalciferol (vitamin D3) 25 mcg (1,000 unit) capsule 25 mcg PO DAILY prednisone 20 mg tablet 20 mg PO BID Qty: 14 0RF Rx Instructions: Take two tablets on days 1-4. Take one tablet daily on days 5-8. On days 9-12 take one half tablet. rosuvastatin 10 mg tablet See Rx Instructions .ROUTE .COMPLEX Qty: 90 0RF Dose Instruction: TAKE 1 TABLET BY MOUTH ONCE DAILY FOR CHOLESTEROL Rx Instructions: TAKE 1 TABLET BY MOUTH ONCE DAILY FOR CHOLESTEROL levocetirizine 5 mg tablet See Rx Instructions .ROUTE .COMPLEX Qty: 30 1RF Dose Instruction: TAKE 1 TABLET BY MOUTH ONCE DAILY Rx Instructions: TAKE 1 TABLET BY MOUTH ONCE DAILY clopidogrel 75 tablet 75 mg PO DAILY Clinical Impressions Clinical Impression: Right-sided chest pain, RBBB Stand Alone Forms Stand Alone Forms: Transfer Record - ED Print Language Print Language: Luxembourger Discharge ED Provider: Fina Xiao General Chief Complaint: Chest Pain Stated Complaint: Chest pain Time Seen by Provider: 12/29/24 23:15 Mode of Arrival: Wheelchair Source of Information: Patient and Spouse Description of Symptoms (Recalled from ER Triage Doc. by RN): Pt presents to ED for R side chest pain that started approx 1hr ago. Pt states it hurts even worse when he takes a deep breath. Pt states he's got a significant cardiac hx and receives care at the [facility] in [place]. Pt had a heart attack and stents placed in 2001. Pt is A&O*4 and rates pain 6/10 at this time. EKG performed and IV access obtained. History of Present Illness HPI narrative: 84-year-old male [facility] patient with extensive cardiac history and stents as well as CKD presents to the ER with complaints of right upper chest pain that hurts worse with deep inspiration. He states he was going upstairs when the pain started. He had a heart attack and stents placed in 2001, he reports he had recent cardiac testing done at the [facility] that showed no new worsening of the heart. He reports no pain with range of motion of the arm or neck but worse pain with deep breathing. He states standing up provides the most relief but any other position causes some discomfort. No medications prior to arrival. Family reports they brought him here because they were scared to drive all the way to [place] with him having pain like this though patient does not have any nausea, vomiting, dizziness, numbness, tingling, weakness, or other associated symptoms. Related Data Home Medications ?Medication ?Instructions ?Recorded ?Confirmed clopidogrel 75 mg tablet 75 mg PO DAILY Blood thinner 07/05/19 08/22/24 amlodipine 10 mg tablet 10 mg PO DAILY 08/22/24 08/22/24 cholecalciferol (vitamin D3) 25 25 mcg PO DAILY 08/22/24 08/22/24 mcg (1,000 unit) capsule empagliflozin 10 mg tablet 10 mg PO DAILY 08/22/24 08/22/24 mecobalamin (vitamin B12) 1,000 1,000 mcg PO DAILY 08/22/24 08/22/24 mcg chewable tablet vit C 250 mg-E 90 mg-zinc 40 1 tab PO BID 08/22/24 08/22/24 mg-copper 1 [id number]-orbssh-tabgfw chew tablet (PreserVision AREDS-2) Previous Rx's ?Medication ?Instructions ?Recorded prednisone 20 mg tablet 20 mg PO BID #14 tabs 08/22/24 rosuvastatin 10 mg tablet See Rx Instructions .Route 10/02/24 .COMPLEX #90 tabs levocetirizine 5 mg tablet See Rx Instructions .Route 11/09/24 .COMPLEX #30 tabs Allergies Allergy/AdvReac Type Severity Reaction Status Date / Time aspirin (ASPIRIN) Allergy Intermediate Verified 08/22/24 14:36 [facility] Disclaimer: The information contained in this section may have been updated after the patient was seen, as this information can be updated by other users. Medical History (Updated 12/30/24 @ 04:55 by Vinny Johnson MD) Hypertension ILD (interstitial lung disease) Stage 4 chronic kidney disease Macular degeneration of left eye Kidney stone History of heart attack Hyperlipidemia Surgical History History of open heart surgery History of tonsillectomy History of cholecystectomy Family History (Updated 08/22/24 @ 14:48 by Jesusita Jones CMA) Mother Macular degeneration disease Social History (Updated 08/22/24 @ 14:49 by Jesusita Jones CMA) Smoking Status: Former smoker tobacco type: cigarettes how long ago did patient quit smokin years alcohol intake: never current occupational status: retired Travel in the last 8 weeks?: None Have you lived/traveled outside US in past 30 days?: No Contact w/someone who lives/traveled outside US past 30 days?: No Exposure to someone with infectious disease in past 14 days?: No Do you have a fever (greater than 100.4 F or 38 C)?: No Have you tested positive for COVID-19?: No Exposed to someone with COVID-19 in past 14 days?: No Do you have a sore throat?: No Do you have a cough?: No Do you have any weakness?: No Do you have any diarrhea?: No Are you experiencing any unusual bleeding?: No Do you have any muscle aches/pain?: No Do you have any abdominal pain?: No Are you experiencing loss of taste or smell?: No Other Medical History Have you received the Flu Vaccine for this season: No Have you received the Pneumonia Vaccine: Yes ROS Obtained: Yes Systems reviewed as appropriate & no additional complaints except as documented Per HPI Physical Exam General General appearance: alert and in no apparent distress Head Head exam: atraumatic and normocephalic Eye Eye exam: Present PERRL and EOMI ENT ENT exam: Present mucous membranes moist Neck Neck exam: Present normal inspection and full ROM Chest Chest inspection: Present symmetric chest wall rise and tenderness (Right upper chest) Respiratory Respiratory exam: Present normal lung sounds bilaterally; Absent respiratory distress, wheezes or stridor Cardiovascular Cardiovascular exam: Present regular rate and normal rhythm Abdominal Exam Abdominal exam: Present soft; Absent distention or tenderness Extremities Exam Extremities exam: Present full ROM and edema (2+ pitting edema bilateral lower extremities which patient reports is new); Absent tenderness Neurological Exam Neurological exam: Present alert and oriented X3; Absent motor sensory deficit Psychiatric Psychiatric exam: Present normal affect and normal mood Skin Skin exam: Present warm and dry HEART Score HEART Score HEART Score assessment performed?: Yes History (anamnesis): Slightly suspicious ECG: Non-specific disturbance Age: >65 years Risk factors: Atherosclerosis history Troponin: </= normal limit HEART Score: 5 Critical Care Critical Care Time Critical Care Time: No Medical Decision Making Medical Records Medical records reviewed: Yes I reviewed the patient's medical records. Cl Inquiry Pt receiving controlled substance: No Vital Signs Vital Signs: 12/29/24 22:54 12/29/24 23:30 12/30/24 00:00 Temperature 98.4 F Temperature Source Oral Pulse Rate 85 84 Pulse Rate [Left] 85 Respiratory Rate 18 25 H 23 Blood Pressure 138/71 135/71 Blood Pressure [Right Arm] 164/86 H Blood Pressure Mean [Right Arm] 112 02 Sat by Pulse Oximetry 96 92 L 90 L Oxygen Delivery Method Room Air 12/30/24 00:09 12/30/24 00:30 12/30/24 01:00 Temperature Temperature Source Pulse Rate 91 H 84 86 Pulse Rate [Left] Respiratory Rate 18 18 28 H Blood Pressure 157/81 H 131/75 138/71 Blood Pressure [Right Arm] Blood Pressure Mean [Right Arm] 02 Sat by Pulse Oximetry 92 L 93 L 93 L Oxygen Delivery Method 12/30/24 01:30 12/30/24 02:00 12/30/24 02:30 Temperature Temperature Source Pulse Rate 87 92 H 92 H Pulse Rate [Left] Respiratory Rate 25 H 14 22 Blood Pressure 133/69 138/78 144/77 H Blood Pressure [Right Arm] Blood Pressure Mean [Right Arm] 02 Sat by Pulse Oximetry 94 L 97 97 Oxygen Delivery Method 12/30/24 03:00 Temperature Temperature Source Pulse Rate 87 Pulse Rate [Left] Respiratory Rate 23 Blood Pressure 125/65 Blood Pressure [Right Arm] Blood Pressure Mean [Right Arm] 02 Sat by Pulse Oximetry 95 Oxygen Delivery Method Lab Data Labs: Lab Results 12/29/24 22:57: WBC 10.5, RBC 4.17 L, Hgb 12.6 L, Hct 38.9 L, MCV 93.3, MCH 30.2, MCHC 32.4, RDW 13.7, Plt Count 223, MPV 10.3, Neut % (Auto) 75.7, Lymph % (Auto) 11.8, [place] % (Auto) 10.5 H, Eos % (Auto) 1.4, Baso % (Auto) 0.2, Neut # (Auto) 8.0 H, Lymph # (Auto) 1.2, [place] # (Auto) 1.1 H, Eos # (Auto) 0.2, Baso # (Auto) 0.0, D-Dimer 1.00 H, Sodium 137, Potassium 4.0, Chloride 104, Carbon Dioxide 29, Anion Gap 8.0, BUN 37 H, Creatinine 2.10 H, Estimated Creat Clear 30, Estimated GFR 30 L, Est GFR ( Amer) 37 L, Glucose 120 H, Calcium 8.8, Total Bilirubin 0.6, AST 38, ALT 16, Alkaline Phosphatase 144 H, Troponin I < 0.01, NT-Pro-B Natriuret Pep 1860 H, Total Protein 7.6, Albumin 4.5, Globulin 3.1, Albumin/Globulin Ratio 1.5, HCV Ab MAGGIE w/Rflx PCR Qn Negative, HIV Ag/Ab Combo Qual Negative 12/30/24 02:53: SARS-CoV-2 (PCR) Not detected, Influenza A Untype (PCR) Not detected, Influenza Type B (PCR) Not detected 12/29/24 22:57 12/29/24 22:57 Response Orders (Tests/Meds): ED MEDICATIONS Discontinued Medications Generic Name Dose Route Start Last Admin Trade Name Hankq PRN Reason Stop Dose Admin Morphine Sulfate 4 mg 12/30/24 00:08 12/30/24 00:15 Morphine 4mg/Ml Syringe IV 12/30/24 00:09 4 mg ONCE ONE Administration Nitroglycerin 0.4 mg 12/30/24 02:11 12/30/24 02:18 Nitroglycerin 0.4mg Sl Tablet SL 12/30/24 02:12 0.4 mg ONCE ONE Administration Ondansetron HCl 4 mg 12/30/24 00:08 12/30/24 00:15 Ondansetron 4mg/2ml Vial IV 12/30/24 00:09 4 mg ONCE ONE Administration Sucralfate 1 gm 12/30/24 05:03 Sucralfate 1gm/10ml Susp Udc PO 12/30/24 05:04 ONCE ONE ORDERS Category Date Time Status CXR --portable [XR chest portable] Stat Exams 12/29/24 23:26 Completed BNP [NT Pro Brain Natriuretic Pep.] Stat Lab 12/29/24 22:57 Completed CBC w/Auto Diff [Complete Blood Count Auto Diff] Stat Lab 12/29/24 22:57 Completed CMP [Comprehensive Metabolic Panel] Stat Lab 12/29/24 22:57 Completed D-Dimer Stat Lab 12/29/24 22:57 Completed HIV Combo Stat Lab 12/29/24 22:57 Completed Hepatitis C Ab Qual. W/ RFX Stat Lab 12/29/24 22:57 Completed Rapid PCR Covid and Flu A/B Stat Lab 12/30/24 02:53 Completed Trop I [Troponin I] Stat Lab 12/29/24 22:57 Completed Troponin I Q3H Lab 12/30/24 02:30 Ordered Troponin I Q3H Lab 12/30/24 05:30 Ordered ECG Request Stat Y 12/30/24 02:11 Ordered MDM Narrative Medical Decision Narrative: In summary, this 84-year-old male with comorbidities described in the HPI presents to the emergency department today with right sided chest pain worse with deep inspiration. On initial evaluation patient is dynamically stable, afebrile, GCS 15, patient has reproducible chest pain with palpation of the right upper chest, cardiopulmonary exam is benign aside from peripheral edema. Differential diagnosis includes but is not limited to ACS, PE, pneumothorax, pneumonia, MSK etiology, esophageal spasm, among others. Based on these concerns, I ordered serum labs, cardiac workup, D-dimer. ECG personally interpreted demonstrates sinus rhythm, right bundle branch block, left axis deviation, normal LA and QTc, poor R wave progression, no STEMI. Aspirin was not administered as patient reports a history of hives with taking it. Chest x-ray personally interpreted demonstrates poor inflation, enlarged heart, likely pulmonary edema. See radiology read for final interpretation Labs personally reviewed demonstrate leukocytosis, anemia similar to previous, normal platelets, CMP with kidney dysfunction similar to prior, GFR today is 38, BNP 1860 with no previous comparison, initial troponin undetectably low less than 0.01, patient does have elevated D-dimer at 1.0, cannot exclude PE. I discussed CTA PE with the patient which she is refusing at this time secondary to kidney dysfunction stating he has been told to absolutely not have contrast. I discussed with him the risks of missing PE versus the risks of contrast nephropathy, he would still prefer to not have CT performed. He has the ability to make this decision. I discussed empiric anticoagulation with the patient as well, he would rather not do this either despite discussing risks of not anticoagulating at this time if we are not going to rule out PE. Since he is still having chest pain I recommended admission to him. After discussion with him, he would prefer to be admitted at the [facility] versus empiric anticoagulation with his team there who knows his previous health problems. Despite patient refusing other recommendations, I do believe this is reasonable. Awaiting callback from the [facility] at this time. Because he is still having chest pain, repeat ECG has been ordered as well as nitro for treatment. Nitro did not offer significant relief to the patient but he reports the pain is tolerable. Repeat ECG personally interpreted demonstrates sinus rhythm, first-degree AV block, rate 89, normal LA, normal QTc, right bundle branch block present, no STEMI, multiple abnormalities across the ECG are stable from previous ECG with no dynamic changes. [facility] called back and I spoke with Dr. Landin regarding patient's presentation, his refusal of receiving IV contrast in the setting of CKD despite concern for possible PE with elevated D-dimer as well as his refusal of empiric anticoagulation at this time. I explained that he would like to be admitted at the [facility] to have his care performed by his current team that notes his history. Patient was graciously accepted for admission to the [facility]. Awaiting transportation availability at this time. Prior to transfer, patient complained of mild heartburn. Carafate administered. Patient was reassessed immediately prior to transfer and continues to be hemodynamically stable, afebrile. He had been placed on nasal cannula after receiving morphine which caused mild hypoxia. He reports his chest pain is tolerable unless he takes a very deep breath. He is appropriate for transfer at this time. He is going via [facility] ambulance. Patient transferred in stable condition.
[2024-12-30 00:11] LABS: Hepatitis C Ab Qual. W/ RFX NEGATIVE (Negative)
[2024-12-30] MEDS: MORPHINE 4MG/ML SYRINGE 4 MG IV (00:15)
[2024-12-30] MEDS: ONDANSETRON 4MG/2ML VIAL 4 MG IV (00:15)
--- NOTE | 2024-12-30 01:32 | PC.NURSE ---
pt placed on 2 L NC for O2 sat decreasing to 87% after receiving morphine. MD Johnson aware.
[2024-12-30] MEDS: NITROGLYCERIN 0.4MG SL TABLET 0.4 MG SL (02:18)
--- NOTE | 2024-12-30 02:22 | PC.NURSE ---
[facility]oke with [facility], they are going to call us [facility] to speak with the provider.
--- NOTE | 2024-12-30 02:32 | ECG_ITS ---
APPROVED REPORT Exam: Resting ECG HR:89 bpm ECG Measurements Heart Rate 89 AXES IA 214 P 25 QRSd 169 QRS -64 QT 403 T 6 QTc 449 Conclusion SINUS RHYTHM WITH FIRST DEGREE AV BLOCK RIGHT BUNDLE BRANCH BLOCK [120+ ms QRS DURATION, UPRIGHT V1, 40+ ms S IN I/aVL/V4/V5/V6] LEFT ANTERIOR FASCICULAR BLOCK [QRS AXIS <= -45, QR IN I, RS IN II] MINIMAL VOLTAGE CRITERIA FOR LVH, CONSIDER NORMAL VARIANT [MEETS CRITERIA IN ONE OF: R(aVL), S(V1), R(V5), R(V5/V6)+S(V1)] ANTEROSEPTAL MYOCARDIAL INFARCTION , OF INDETERMINATE AGE [40+ ms Q WAVE IN V1-V4] ABNORMAL ECG UNCONFIRMED REPORT Electronically signed by : ZACHARY CARTER, 12/31/2024 06:40:29
[2024-12-30 02:59] LABS: Coronavirus 19, PCR Not Detected (NotDetected); Influenza A, PCR Not Detected (NotDetected); Influenza B, PCR Not Detected (NotDetected)
--- NOTE | 2024-12-30 03:20 | PC.NURSE ---
Spoke with Ammy from lab, she said the analyzer to run rapid covid flu tests are down. has gave permission to change the order to a mini respiratory panel.
== END 2024-12-30 05:53 | disposition short-term general hospital (02) ==
PROVIDERS: Emergency Medicine; Emergency Provider Student in an Organized Health Care Education/Training Program
DX: R07.89 Other chest pain (principal); I45.10 Unspecified right bundle-branch block; I44.0 Atrioventricular block, first degree; I10 Essential (primary) hypertension; Z87.891 Personal history of nicotine dependence; Z86.79 Personal history of other diseases of the circulatory system; Z11.59 Encounter for screening for other viral diseases; Z11.4 Encounter for screening for human immunodeficiency virus [HIV]
CPT/HCPCS: 71045; 80053; 80074; 83880; 84484; 85025; 85378; 87389; 87636; 93005; 96374; 96375; 99285; J2270; J2405

== ENCOUNTER 2025-03-17 17:38 | Emergency (ER) | payer MEDICARE, BC, OTHER, SELFPAY ==
--- OUTSIDE RECORDS SUMMARY | 2024-12-29 22:38 | XMS_ITS | Encounter Summary ---
Author Name [facility] [facility] [facility] [place] Address [address] [place] [address] Care Team Providers Care Precision Assembler Bench Name Role Phone JORDYN DALIA Primary Care [...] AUTOM OTIVE - RETI Jul 25, 2018 [id number] MALUTI PERKINS JORDAN SPOUSE MEDICARE (WNR) MEDICARE (M) PART B Jan 22, 2007 PART B [id number] [phone] MALUJUSTYNA TINAJERO RGE PATIENT MEDICARE (WNR) MEDICARE (M) PART A Sep 22, 2005 PART A [id number] REINAJUSTYNA PATIENT FOR LIFE TRICA RE FOR LIFE Jul 25, 2017 FOR LIFE [id number] ROBBIE HUANG JR PATIENT Selected Encounter This section includes the information on record at [place] for the Encounter. Date/Time Encounter Type Encounter Description Reason Pro vider Source Dec 30, 2024 02:38 AM Inpatient Visit ADMIN PAT ACTIVTIES (MASNONCT) IHE Encounter Template Text not used by [place] Plan of Treatment: Future Appointments (+ 6 months) and Future Tests (+/- 45 days) The Plan of Treatment section includes future care activities for the patient from all [place] [facility]. This section includes future appointments and future orders which are active, pending or scheduled. Future Appointments This section includes appointments that were scheduled to occur 6 months from the date of the Encounter, up to a maximum of 20 appointments. The data comes from all [facility]. Appointment Date/Time Appointment Type Appointme nt Facility Name Jan 04, 2025 01:30 PM AMBULATORY [facility] SURGERY [facility] Jan 31, 2025 03:00 PM AMBULATORY - MEDICINE [facility] Feb 05, 2025 01:00 PM AMBULATORY - MEDICINE [facility] Feb 05, 2025 02:00 PM AMBULATORY - MEDICINE [facility] Active, Pending, and Scheduled Orders This section includes a listing of several types of active, pending, and scheduled orders, including clinic medications orders, diagnostic test orders, procedure orders and consult orders; where the start date of the order is 45 days before the date of the Encounter or 45 days after the date of theEncounter. The data comes from all [facility]. Test Date/Time Test Type Test Details Facility Name Jan 04, 2025 12:00 AM Imaging - Vascular Lab Order SEGMENTAL PRESSURES, LOWER EXT([place]) UNILAT [facility] Jan 04, 2025 12:00 AM Imaging - Vascular Lab Order VENOUS DUPLEX LOWER EXT BILAT [facility] Feb 01, 2025 12:00 AM Laboratory - Chemi stry Order PANEL 4 [id number] SP ONCE [facility] Feb 01, 2025 12:00 AM Laboratory - Chemi stry Order CREATININE URINE SP ONCE [facility] Feb 01, 2025 12:00 AM Laboratory - Chemi stry Order TOTAL PROTEIN URINE SP ONCE [facility] Feb 01, 2025 12:00 AM Laboratory - Chemi stry Order URINALYSIS URINE PATIENT WAITING SP ONCE [facility] Feb 01, 2025 12:00 AM Laboratory - Chemi stry Order 25-OH VITAMIN D NOT-GMDA-UEIZG SP ONCE [facility] Feb 01, 2025 12:00 AM Laboratory - Chemi stry Order CBC/PLT [id number]-[id number]-BZY BLOOD SP ONCE [facility] Feb 01, 2025 12:00 AM Laboratory - Chemi stry Order PTH INTACT (MCCALL) [id number] SP ONCE [facility] Lab Results: +/- 30 days [...] Unit Interpretation Reference Range Specimen Type Comment Dec 31, 2024 12:02 PM [facility] GLUCOSE-HAND MONITOR CAPILLARY Specimen Type: CAPILLARY Comment: Test performed by: [id number] Meter #: [id number] Ordering Provider: MICHELL SEVERINO Report Released Date/Time: Dec 31, 2024 12:58 PM Reporting Lab: [address] [phone] Performing Lab: [address] [address] GLUCOSE-HAND MONITOR 129 mg/dL H 71-99 Dec 31, 2024 07:50 AM [facility] PANEL 1 PLASMA Specimen Type: PLASM A Comment: Estimated [...] decrease <15 G5 Kidney failure Ordering Provider: CHLOE SEVERINO Report Released Date/Time: Dec 30, 2024 08:23 AM Reporting Lab: [address] [address] Performing Lab: [address] [address] CREATININE 2.04 mg/dL H 0.72-1.25 UREA NITROGEN 31 mg/dL H 9-25 GLUCOSE 94 mg/dL 74-100 SODIUM 138 mmol/L 136-145 POTASSIUM 4.4 mmol/L 3.5-5.1 CHLORIDE 105 mmol/L 98-107 CO2 25 mmol/L 22-29 CALCIUM 8.9 mg/dL 8.4-10.2 ANION GAP 8 meq/L 3-19 eGFR (CKD-EPI) 32 Dec 31, 2024 07:50 AM [facility] CBC/PLT BLOOD Specimen Type : BLOOD No comment entered. Ordering Provider: CHLOE SEVERINO Report Released Date/Time: Dec 30, 2024 08:23 AM Reporting Lab: [place] [phone] Performing Lab: [place] [phone] WBC 8.2 10*3/uL 5.0-10.0 RBC 4.03 10*6/uL L 4.6-6.2 HGB 12.0 g/dL L 14.0-18.0 HCT 37.2 L 42.0-52.0 MCV 92.3 fL 80.0-94.0 MCH 29.8 pg 27.0-31.0 MCHC 32.3 g/dL 32.0-36.0 PLT 191 10*3/uL 150-450 MPV 10.5 fL 9.0-13.1 RDW 13.8 11.0-16.0 NRBC 0.0 0.0-0.0 Dec 31, 2024 06:38 AM [facility] GLUCOSE-HAND MONITOR CAPILLARY Specime n Type: CAPILLARY Comment: Test performed by: [id number] Meter #: [id number] Ordering Provider: CHLOE SEVERINO Report Released Date/Time: Dec 31, 2024 07:17 AM Reporting Lab: [place] [phone] Performing Lab: [place] [phone] GLUCOSE-HAND MONITOR 99 mg/dL -99 Dec 30, 2024 08:10 PM [facility] GLUCOSE-HAND MONITOR CAPILLARY Specime n Type: CAPILLARY Comment: Test performed by: [id number] Meter #: [id number] Ordering Provider: CHLOE SEVERINO Report Released Date/Time: Dec 30, 2024 09:15 PM Reporting Lab: [place] [phone] Performing Lab: [place] [phone] GLUCOSE-HAND MONITOR 124 mg/dL H 71-99 Dec 30, 2024 04:21 PM [facility] GLUCOSE-HAND MONITOR CAPILLARY Specime n Type: CAPILLARY Comment: Test performed by: [id number] Meter #: [id number] Ordering Provider: CHLOE SEVERINO Report Released Date/Time: Dec 30, 2024 04:39 PM Reporting Lab: [address] [address] Performing Lab: [address] [address] GLUCOSE-HAND MONITOR 92 mg/dL -Dec 30, 2024 11:54 AM [facility] MRSA SURVL NARES DNA NARES Specime n Type: NARES Comment: Results from the Xpert MRSA NxG PCR test should be interpreted in conjunction with other laboratory and clinical data available to the clinician, and should be used as an adjunct to nosocomial infection control efforts to identify patients needing enhanced precautions. Results should not be used to guide or monitor treatment for MRSA infections. The Xpert MRSA NxG PCR test is not intended to diagnose, guide or monitor treatment for MRSA infections, or determine susceptibility to methicillin. An Xpert MRSA NxG PCR test positive result does not necessarily indicate intervention eradication failure since nonviable DNA may persist. A negative result following a previously positive test result may or may not indicate eradication success. Ordering Provider: KEYANNA EDMONDSON Report Released Date/Time: Dec 30, 2024 10:43 AM Reporting Lab: [address] [address] Performing Lab: [address] [address] MRSA SURVL NARES DNA Negative Negative Dec 30, 2024 11:39 AM [facility] GLUCOSE-HAND MONITOR CAPILLARY Specime n Type: CAPILLARY Comment: Test performed by: [id number] Meter #: [id number] Ordering Provider: CHLOE SEVERINO Report Released Date/Time: Dec 30, 2024 11:56 AM Reporting Lab: [address] [address] Performing Lab: [address] [address] GLUCOSE-HAND MONITOR 115 mg/dL H -Dec 30, 2024 07:46 AM [facility] CODE / JUMP ROLL OPERATOR VENOUS BLOOD GAS VENOUS BLOOD Specimen Type: VENOUS BLOOD Comment: Collection Time: 12-30-2024 @ 07:46 Ordering Provider: KEYANNA EDMONDSON Report Released Date/Time: Dec 30, 2024 07:54 AM Reporting Lab: [address] [address] Performing Lab: [address] [address] .VpCO2 46 mm[Hg] 41-51 .VpH 7.34 7.33-7.43 Dec 30, 2024 07:46 AM [facility] CODE / JUMP ROLL OPERATOR BLUE TOP PLASMA Specimen Type: PLASMA No comment entered. Ordering Provider: KEYANNA EDMONDSON Report Released Date/Time: Dec 30, 2024 07:53 AM Reporting Lab: [address] [address] Performing Lab: [address] [address] PT PATIENT 15.1 s H 11.7-14.4 INTERNATIONAL NORMALIZED RATIO 1.21 H 0 .87-1.14 PTT PATIENT 32.2 s 24.0-33.2 Dec 30, 2024 07:46 AM [facility] CODE / JUMP ROLL OPERATOR GREEN TOP PLASMA Specimen Type: ALFREDITO SMA Comment: Reference Ranges Females: 4 - 14 ng/L Males: 4 - 35 ng/L Limit of Quantitation: 4 ng/L Significant High-Sensitivity Troponin I Delta at 2 hours, either rising or falling: >10 ng/L. Once baseline and 2-hour High-Sensitivity Troponin I results are available, the Provider ordering the tests will calculate the HS-Troponin I Delta, the difference between the two values. High-Troponin I values greater than the 99th percentile with a rising or falling pattern (a change of >10 ng/L between the baseline and 2-hour samples) highly suggest acute cardiac injury, whereas values for females 4-14 ng/L and males 4-35 ng/L require further clinician assessment. Acute cardiac injury does not necessarily equate to acute myocardial infarction. Additional clinical criteria are necessary for the diagnosis of Specimens from individuals with elevated levels of fibrinogen may demonstrate falsely elevated values. This assay is susceptible to interference from total protein >8.8 g/dL. Total protein values from 9.0 to 12.0 g/dL decrease Troponin values at 500 ng/L by up to -16.3%. Although designed to minimize the effects of HAMA, heterophilic antibodies, and RF, the assay results may be impacted in a falsely negative way by these proteins. A High-Sensitivity Troponin I information resource can be reached in [employer] in the Tools menu, under the Education tab. Estimated Glomerular Filtration Rate (eGFR) calculated using [...] decrease <15 G5 Kidney failure Ordering Provider: KEYANNA EDMONDSON Report Released Date/Time: Dec 30, 2024 07:53 AM Reporting Lab: [address] [phone] Performing Lab: [address] [address] IONIZED CALCIUM 1.13 mmol/L L 1.15-1.29 CREATININE 1.97 mg/dL H 0.72-1.25 UREA NITROGEN 31 mg/dL H 9-25 GLUCOSE 115 mg/dL H 74-100 SODIUM 139 mmol/L 136-145 POTASSIUM 4.4 mmol/L 3.5-5.1 CHLORIDE 108 mmol/L H 98-107 CO2 23 mmol/L 22-29 CALCIUM 8.8 mg/dL 8.4-10.2 PHOSPHORUS 3.3 mg/dL 2.3-4.7 TOTAL PROTEIN 7.0 g/dL 6.4-8.3 ALBUMIN 3.8 g/dL 3.5-5.2 TOTAL BILIRUBIN 0.6 mg/dL 0.2-1.2 AST 27 U/L 5-34 ALT 18 U/L 0-55 MAGNESIUM 2.3 mg/dL 1.6-2.6 ANION GAP 8 meq/L 3-19 ALK PHOS 107 U/L 40-150 BILIRUBIN-DIRECT 0.2 mg/dL 0.0-0.5 eGFR (CKD-EPI) 33 HIGH SENSITIVITY TROPONIN I 6 4-35 Dec 30, 2024 07:46 AM [facility] CODE / JUMP ROLL OPERATOR BACH TOP PLASMA Specimen Type: PLASMA No comment entered. Ordering Provider: KEYANNA EDMONDSON Report Released Date/Time: Dec 30, 2024 07:53 AM Reporting Lab: [address] [address] Performing Lab: [address] [phone] LACTIC ACID 0.9 mmol/L 0.5-2.2 Dec 30, 2024 07:46 AM [facility] CODE / JUMP ROLL OPERATOR LAVENDER TOP BLOOD Spec imen Type: BLOOD No comment entered. Ordering Provider: KEYANNA EDMONDSON Report Released Date/Time: Dec 30, 2024 07:53 AM Reporting Lab: [address] [address] Performing Lab: [address] [address] WBC 10.2 10*3/uL H 5.0-10.0 RBC 4.04 10*6/uL L 4.6-6.2 HGB 12.3 g/dL L 14.0-18.0 HCT 37.6 L 42.0-52.0 MCV 93.1 fL 80.0-94.0 MCH 30.4 pg 27.0-31.0 MCHC 32.7 g/dL 32.0-36.0 PLT 187 10*3/uL 150-450 MPV 10.2 fL 9.0-13.1 RDW 13.8 11.0-16.0 NRBC 0.0 0.0-0.0 December 03, 2024 02:03 PM [facility] PROTEIN ELECTROPHORESIS URINE Specimen Type: URINE No comment entered. Ordering Provider: DALIA COBB Report Released Date/Time: December 03, 2024 01:24 PM Reporting Lab: [address] [address] Performing Lab: [address] [address] TOTAL PROTEIN 17.0 mg/dL Not Estab. .ALBUMIN ELEC 29.4 .ALPHA 1 ELEC 5.2 .ALPHA 2 ELEC 21.5 .BETA ELEC 19.7 .GAMMA ELEC 24.2 .M-SPIKE Not Observed Not Observed December 03, 2024 02:03 PM [facility] TOTAL PROTEIN URINE Specimen Type: URINE No comment entered. Ordering Provider: DALIA COBB Report Released Date/Time: December 03, 2024 01:24 PM Reporting Lab: [address] [address] Performing Lab: [address] [address] TOTAL PROTEIN 16 mg/dL H 0-14 December 03, 2024 02:03 PM [facility] CREATININE URINE Specimen Type: URINE No comment entered. Ordering Provider: DALIA COBB Report Released Date/Time: December 03, 2024 01:24 PM Reporting Lab: [address] [address] Performing Lab: [address] [address] CREATININE 63.6 mg/dL December 03, 2024 02:03 PM [facility] URINALYSIS URINE Specimen Type: URINE Comment: Microscopic not indicated Ordering Provider: DALIA COBB Report Released Date/Time: December 03, 2024 01:29 PM Reporting Lab: [address] [address] Performing Lab: [address] [address] URINE COLOR Light Yellow Colorless-Yello w APPEARANCE Clear Clear UROBILINOGEN Normal mg/dL Normal URINE BLOOD Negative Negative URINE BILIRUBIN Negative Negative URINE KETONES Negative mg/dL Negative URINE PROTEIN Negative mg/dL Negative-Tr rachell URINE PH 5.0 4.5-8.0 URINE NITRITE Negative Negative URINE LEUKOCYTE EST Negative Negative SPECIFIC GRAVITY 1.014 1.005-1.030 URINE GLUCOSE >1000 mg/dL H Negative December 03, 2024 01:45 PM [facility] ANTI-NUCLEAR Ab SERUM Specimen Type: SERUM Comment: Atypical speckled resembling DFS (Dense-Fine Speckled. The DFS pattern has a low prevalence in systemic autoimmune rheumatic diseases. The clinical association remains unclear. Due to its close resemblance to other patterns of clinical relevance, (i.e. Homogeneous, speckled, and mixed patterns) follow-up testing may be recommended. ANTI-NUCLEAR Ab reported incorrectly as Atypical Speckled by [[id number]]. Changed to 1:320 Atypical Speckled on December 06, 2024@12:59 by [[id number]]. Ordering Provider: DALIA COBB Report Released Date/Time: December 03, 2024 01:38 PM Reporting Lab: [address] [address] Performing Lab: [address] [address] ANTI-NUCLEAR Ab 1:320 Atypical Speckled <1:80 December 03, 2024 01:45 PM [facility] ROSALIE (SERUM) SERUM Specimen Type: SERUM Comment: BNP results less than or equal to 100 pg/ml are franchise sales representative of normal values in patients without CHF. BNP results greater than 100 pg/ml are considered abnormal and suggestive of CHF. Higher BNP concentrations in the first 72 hours after Acute Coronary Syndrome are associated with an increased risk of , myocardial infarction and CHF. Ordering Provider: DALIA COBB Report Released Date/Time: December 03, 2024 01:24 PM Reporting Lab: [address] [address] Performing Lab: [facility] [address] [facility] [address] .ALBUMIN ELEC 3.6 g/dL 2.9-4.4 .ALPHA 1 [...] INTERPRETATION Comment December 03, 2024 01:45 PM [facility] JORDAN SCREEN SERUM Specimen Type: SERUM No comment entered. Ordering Provider: DALIA COBB Report Released Date/Time: December 03, 2024 01:38 PM Reporting Lab: [address] [address] Performing Lab: [address] [address] JORDAN SCREEN Negative Negative December 03, 2024 01:45 PM [facility] BNP ([employer]) PLASMA Specimen Type: PLASMA Comment: BNP results less than or equal to 100 pg/ml are franchise sales representative of normal values in patients without CHF. BNP results greater than 100 pg/ml are considered abnormal and suggestive of CHF. Higher BNP concentrations in the first 72 hours after Acute Coronary Syndrome are associated with an increased risk of , myocardial infarction and CHF. Ordering Provider: DALIA COBB Report Released Date/Time: December 03, 2024 01:24 PM Reporting Lab: [address] [address] Performing Lab: [facility] [address] [address] BNP (MCCALL) 225 pg/mL H 0-100 December 03, 2024 01:45 PM [facility] CK TOTAL PLASMA Specimen Type: PLASM [...] 03, 2024 01:33 PM Reporting Lab: [address] [address] Performing Lab: [address] [address] CK TOTAL 76 U/L 30-200 December 03, 2024 01:45 PM [facility] PANEL 5 PLASMA Specimen Type: PLASM [...] December 03, 2024 01:24 PM Reporting Lab: [place] [phone] Performing Lab: [place] [phone] CREATININE 2.05 mg/dL H 0.72-1.25 UREA NITROGEN [...] eGFR (CKD-EPI) December 03, 2024 01:45 PM [facility] CBC/PLT BLOOD Specimen Type: BLOOD No comment entered. Ordering Provider: DALIA COBB Report Released Date/Time: December 03, 2024 01:33 PM Reporting Lab: [address] [address] Performing Lab: [place] [phone] WBC 5.6 10*3/uL 5.0-10.0 RBC 4.24 10*6/uL L 4.6-6.2 HGB 12.8 g/dL L 14.0-18.0 HCT 39.4 L 42.0-52.0 MCV 92.9 fL 80.0-94.0 MCH 30.2 pg 27.0-31.0 MCHC 32.5 g/dL 32.0-36.0 PLT 248 10*3/uL 150-450 MPV 10.2 fL 9.0-13.1 RDW 14.2 11.0-16.0 NRBC 0.0 0.0-0.0 December 03, 2024 01:45 PM [facility] AUTOMATED DIFF BLOOD Specimen Type: BLOOD No comment entered. Ordering Provider: DALIA COBB Report Released Date/Time: December 03, 2024 01:33 PM Reporting Lab: [facility] [address] [facility] [address] Performing Lab: [address] [address] A-LYMPH % 22.1 L 24.0-44.0 A-MONO % [...] Pain Height Weight Body Mass Index Source Dec 30, 2024 11:42 PM 97.8 63 122/66 16 96 0 [place] Dec 30, 2024 09:00 PM 0 [place] [facility] Dec 30, 2024 08:10 PM 97.6 65 136/72 18 92 0 [place] [facility] Dec 30, 2024 03:55 PM 97.0 61 144/77 18 97 2 [place] [facility] Dec 30, 2024 10:27 AM 97.0 63 126/66 18 97 0 [facility] [facility] Social History: Smoking Status (Most current) and Tobacco Use (All prior to encounter date) This section includes the most current, and the historical, smoking and tobacco- related health factors from the [place] facility where the Encounter took place. Current Smoking Status This section includes the most current smoking, or tobacco-related health factor, from the [place] facility where the Encounter took place. Date/Time Current Smoking Status Comment Kelechi dial May 10, 2024 02:00 PM VA-TOBACCO NEVER USED [facility] Tobacco Use History This section includes a history of the smoking, or tobacco-related health factors, that were collected on or before the date of the Encounter. The data comes from the [place] facility where the Encounter took place. Date/Time Smoking Status/Tobacco Use Comment F octavia May 19, 2017 03:22 AM NON-TOBACCO USE INPATIENT [facility] Sep 07, 2016 02:41 AM NON-TOBACCO USE INPATIENT [facility] Apr 21, 2004 08:29 AM HF V9 CURRENT NON-SMOKER quit smoking about 30 yrs ago [facility] Sep 06, 2002 02:26 PM HF V9 CURRENT NON-SMOKER QUIT SMOKING ABOUT 31 YRS AGO [facility] Radiology Reports: +/- 30 [...] the Encounter. The data comes from all [place] treatment facilities. Date/Time Radiology Report Provider Source December 14, 2024 07:49 AM CARD. STRESS TEST W/TREADMILL/...: ROBBIE HUANG [id number] -1940 M Ex Date: DECEMBER 14, 2024@07:49 Req Phys: DALIA COBB Loc: [facility]CT [facility] 16-1 (Req'g Loc) Img Loc: NUCLEAR MEDICINE Service: Unknown [place] [id number] (Case [id number] COMPLETE)CARD. STRESS TEST W/TREADMILL/...(NM Detailed) CPT:24992 Reason for Study: SEE CLINICAL HISTORY Clinical History: Cardiology approval by: [facility] SERVICE CONNECTED? No Active Outpatient Medications [...] 14, 2024 Date Verified: DECEMBER 14, 2024 Classifier E-Sig: Report: STUDY: GXT with vasodilator REPORT: [...] Staff: CHAO ORR APRN, Cardiology Verified by animal stunner for CHAO ORR /CHAO GIRON-D [facility] December 14, 2024 07:49 AM [id number] REGADENOSON 0.1MG X4 (LEXISCAN): REINAROBBIE MICA [id number] -1940 M Exm Date: DECEMBER 14, 2024@07:49 Req Phys: DALIA COBB Loc: [facility] 16-1 (Req'g Loc) Img Loc: NUCLEAR MEDICINE Service: [place] [address] (Case [id number] COMPLETE)[id number] REGADENOSON 0.1MG X4 (STEPHON(NM Detailed) CPT:J2785 Reason for Study: SEE CLINICAL HISTORY Clinical History: Cardiology approval by: [facility] SERVICE CONNECTED? No Active Outpatient Medications [...] 14, 2024 Date Verified: DECEMBER 14, 2024 Classifier E-Sig: Report: STUDY: GXT with vasodilator REPORT: [...] Staff: CHAO ORR APRN, Cardiology Verified by animal stunner for CHAO ORR /CHAO GIRON-ISMAEL [facility] December 14, 2024 07:49 AM CARD. STRESS TEST W/TREADMILL/...: ROBBIE HUANG [id number] -1940 M Exm Date: DECEMBER 14, 2024@07:49 Req Phys: JORDYNDALIA Pat Loc: [facility] 16-1 (Req'g Loc) Img Loc: NUCLEAR MEDICINE Service: [place] [address] (Case [id number] COMPLETE)CARD. STRESS TEST W/TREADMILL/...(NM Detailed) CPT:14951 Proc Modifiers : GXT Reason for Study: SEE CLINICAL HISTORY Clinical History: Cardiology approval by: [facility] SERVICE CONNECTED? No Active Outpatient Medications [...] 14, 2024 Date Verified: DECEMBER 14, 2024 Classifier E-Sig: Report: [place], [place] STUDY: Regadenoson (Lexiscan) SPECT Tc-99m myoview [...] performed with tomographic and three-dimensional reconstructions with [employer] NM/CT 640 system. Exercise: Patient exercised for [...] data sets in addition to the conventional aaf-yadeplyjueb-nbsamnyja images. Both filtered back projection and iterative [...] ventricular cavity. 4. SPECT images: Attenuation-corrected and uwf-qjzbtnblhau-uxyxwjdxb SPECT images were evaluated. SPECT images demonstrate [...] JEB SANTOS MD, CARDIOLOGY ATTENDING Verified by animal stunner for JEB SANTOS MD /JEB MANCILLA[facility] December 14, 2024 07:49 AM 10864(D) MYOCARDIA L SPECT(MULTIPLE): ROBBIE HUANGALEM [id number] -1940 M Exm Date: DECEMBER 14, 2024@07:49 Req Phys: DALIA COBB Pat Loc: [facility] 16-1 (Req'g Loc) Img Loc: NUCLEAR MEDICINE Service: [place] [address] (Case [id number] COMPLETE)59584(D) MYOCARDIAL SPECT(MULTIPL(NM Detailed) CPT:02207 Proc Modifiers : Lexiscan (Regadenoson) CPT Modifiers [...] 14, 2024 Date Verified: DECEMBER 14, 2024 Classifier E-Sig: Report: [facility], [place], [place] STUDY: Regadenoson (Lexiscan) SPECT Tc-99m myoview [...] performed with tomographic and three-dimensional reconstructions with [employer]/CT 640 system. Exercise: Patient exercised for 6 [...] data sets in addition to the conventional cst-bjyymhqenyb-wqzprrrkx images. Both filtered back projection and iterative [...] ventricular cavity. 4. SPECT images: Attenuation-corrected and qkv-igkklaheslr-ibltjcovm SPECT images were evaluated. SPECT images demonstrate [...] JEB SANTOS MD, CARDIOLOGY ATTENDING Verified by animal stunner for JEB SANTOS MD /JEB MANCILLA-ISMAEL [facility] December 14, 2024 07:49 AM MYOVIEW(2): ROBBIE HUANG [id number] -1940 M Exm Date: DECEMBER 14, 2024@07:49 Req Phys: DALIA COBB Pat Loc: [facility]CT [facility] 16-1 (Req'g Loc) Img Loc: NUCLEAR MEDICINE Service: [place] [address] (Case [id number] COMPLETE)MYOVIEW(2) (NM Detailed) CPT:A9502 Reason for Study: [...] 14, 2024 Date Verified: DECEMBER 14, 2024 Classifier E-Sig: Report: [facility], [place], [place] STUDY: Regadenoson (Lexiscan) SPECT Tc-99m myoview [...] performed with tomographic and three-dimensional reconstructions with [employer] NM/CT 640 system. Exercise: Patient exercised for [...] data sets in addition to the conventional cpd-wqqipwsgfla-ozptycwpc images. Both filtered back projection and iterative [...] ventricular cavity. 4. SPECT images: Attenuation-corrected and sdk-bqizykkottm-rzjbgnotw SPECT images were evaluated. SPECT images demonstrate [...] JEB SANTOS MD, CARDIOLOGY ATTENDING Verified by animal stunner for JEB SANTOS MD /JEB MANCILLA-CDD [facility] December 14, 2024 07:49 AM TC-99M X1 FROM NON -HEU SOURCE: MALUTANVIROBBIE MICA [id number] -1940 M Exm Date: DECEMBER 14, 2024@07:49 Req Phys: DALIA COBB Loc: [facility] 16-1 (Req'g Loc) Img Loc: NUCLEAR MEDICINE Service: [place] [address] (Case [id number] COMPLETE)TC-99M X1 FROM NON-HEU SOURCE (NM Detailed) [...] 14, 2024 Date Verified: DECEMBER 14, 2024 Classifier E-Sig: Report: [facility], [place], [place] STUDY: Regadenoson (Lexiscan) SPECT Tc-99m myoview [...] performed with tomographic and three-dimensional reconstructions with [employer] NM/CT 640 system. Exercise: Patient exercised for [...] data sets in addition to the conventional hjp-ofvnatxalym-admlixhjx images. Both filtered back projection and iterative [...] ventricular cavity. 4. SPECT images: Attenuation-corrected and iuk-bpvztdfasqv-acftddjzt SPECT images were evaluated. SPECT images demonstrate [...] JEB SANTOS MD, CARDIOLOGY ATTENDING Verified by animal stunner for JEB SANTOS MD /JEB MANCILLA-D [facility] December 14, 2024 07:49 AM MYOVIEW(1): ROBBIE HUANG [id number] -1940 [facility] Date: DECEMBER 14, 2024@07:49 Req Phys: DALIA COBB [facility] (Req[facility]g Loc) Im Loc: NUCLEAR MEDICINE Service: [place] [address] (Case [id number] COMPLETE)MYOVIEW(1) (NM Detailed) CPT:A9502 Reason for Study: [...] 14, 2024 Date Verified: DECEMBER 14, 2024 Classifier E-Sig: Report: [facility], [place], [place] STUDY: Regadenoson (Lexiscan) SPECT Tc-99m myoview [...] performed with tomographic and three-dimensional reconstructions with [employer]/CT 640 system. Exercise: Patient exercised for 6 [...] data sets in addition to the conventional zwb-sfdsbuxqnfr-alhiygspd images. Both filtered back projection and iterative [...] ventricular cavity. 4. SPECT images: Attenuation-corrected and mxt-huyshriopcf-uenoggisp SPECT images were evaluated. SPECT images demonstrate [...] JEB SANTOS MD, CARDIOLOGY ATTENDING Verified by animal stunner for JEB SANTOS MD /JEB MANCILLA-ISMAEL [facility] December 14, 2024 07:49 AM [id number] REGADENOSON 0.1MG X1 (LEXISCAN): ROBBIE HUANG [id number] -1940 M Exm Date: DECEMBER 14, 2024@07:49 Req Phys: DALIA COBB Abby Loc: [facility] 16-1 (Req'g Loc) Img Loc: NUCLEAR MEDICINE Service: [place] [address] (Case [id number] COMPLETE)[id number] REGADENOSON 0.1MG X1 (STEPHON(NM Detailed) CPT:J2785 [...] 14, 2024 Date Verified: DECEMBER 14, 2024 Classifier E-Sig: Report: [place], [place] STUDY: Regadenoson (Lexiscan) SPECT Tc-99m myoview [...] performed with tomographic and three-dimensional reconstructions with [employer] NM/CT 640 system. Exercise: Patient exercised for [...] data sets in addition to the conventional zgk-mnivmsyjpcb-ztpbujemu images. Both filtered back projection and iterative [...] ventricular cavity. 4. SPECT images: Attenuation-corrected and wlk-hqtprzakyjj-xdvgorxts SPECT images were evaluated. SPECT images demonstrate [...] JEB SANTOS MD, CARDIOLOGY ATTENDING Verified by animal stunner for JEB SANTOS MD /JEB MANCILLA-CDD [facility] December 14, 2024 07:49 AM [id number] REGADENOSON 0.1MG X2 (LEXISCAN): REINAROBBIE MICA [id number] -1940 M Ex Date: DECEMBER 14, 2024@07:49 Req Phys: DALIA COBB Loc: [facility] 16-1 (Req'g Loc) Img Loc: NUCLEAR MEDICINE Service: [place] [address] (Case [id number] COMPLETE)[id number] REGADENOSON 0.1MG X2 (STEPHON(NM Detailed) CPT:J2785 [...] 14, 2024 Date Verified: DECEMBER 14, 2024 Classifier E-Sig: Report: [place], [place] STUDY: Regadenoson (Lexiscan) SPECT Tc-99m myoview [...] performed with tomographic and three-dimensional reconstructions with [employer] NM/CT 640 system. Exercise: Patient exercised for [...] data sets in addition to the conventional uko-mbfnjqhdlzg-uhbpejsmv images. Both filtered back projection and iterative [...] ventricular cavity. 4. SPECT images: Attenuation-corrected and ouu-pjisuuzwlkd-vnnvyojxr SPECT images were evaluated. SPECT images demonstrate [...] JEB SANTOS MD, CARDIOLOGY ATTENDING Verified by animal stunner for JEB SANTOS MD /JEB MANCILLA-CDD [facility] December 14, 2024 07:49 AM [id number] REGADENOSON 0.1MG X3 (LEXISCAN): [facility] [id number] -1940 M Ex Date: DECEMBER 14, 2024@07:49 Req Phys: DALIA COBB Loc: [facility] 16-1 (Req'g Loc) [facility] [place]: NUCLEAR MEDICINE Service: [place] [address] (Case [id number] COMPLETE)[id number] REGADENOSON 0.1MG X3 (STEPHON(NM Detailed) CPT:J2785 Reason for Study: SEE CLINICAL HISTORY Clinical History: Cardiology approval by: [facility] SERVICE CONNECTED? No Active Outpatient Medications [...] 14, 2024 Date Verified: DECEMBER 14, 2024 Classifier E-Sig: Report: [place], [place] STUDY: Regadenoson (Lexiscan) SPECT Tc-99m myoview [...] performed with tomographic and three-dimensional reconstructions with [employer] NM/CT 640 system. Exercise: Patient exercised for [...] data sets in addition to the conventional yhc-rygxywrsjhx-fbxxjwbvb images. Both filtered back projection and iterative [...] ventricular cavity. 4. SPECT images: Attenuation-corrected and fqr-asvmlasnygf-vhxpkamks SPECT images were evaluated. SPECT images demonstrate [...] JEB SANTOS MD, CARDIOLOGY ATTENDING Verified by animal stunner for JEB SANTOS MD /JEB MANCILLA-CDD [facility] December 14, 2024 07:49 AM TC-99M X2 FROM NON -HEU SOURCE: ROBBIE HUANG [id number] -1940 M Exm Date: DECEMBER 14, 2024@07:49 Req Phys: DALIA COBB Pat Loc: [facility] 16-1 (Req'g Loc) Img Loc: NUCLEAR MEDICINE Service: [place] [address] (Case [id number] COMPLETE)TC-99M X2 FROM NON-HEU SOURCE (NM Detailed) [...] 14, 2024 Date Verified: DECEMBER 14, 2024 Classifier E-Sig: Report: [place], [place] STUDY: Regadenoson (Lexiscan) SPECT Tc-99m myoview [...] performed with tomographic and three-dimensional reconstructions with [employer]oom/CT 640 system. Exercise: Patient exercised for 6 [...] data sets in addition to the conventional mof-wpknxuvdmgi-forurzxaq images. Both filtered back projection and iterative [...] ventricular cavity. 4. SPECT images: Attenuation-corrected and dnl-zsjnboiicpy-vvwdpxgyd SPECT images were evaluated. SPECT images demonstrate [...] JEB SANTOS MD, CARDIOLOGY ATTENDING Verified by animal stunner for JEB SANTOS MD /JEB MANCILLA-ISMAEL [facility] Encounter Notes: All associated encounter notes This section contains the clinical notes associated to the Encounter. Date/Time Encounter Note(s) Provider Source Dec 30, 2024 02:50 AM TRANSFER SUMMARIZA TION NOTE: LOCAL TITLE: INTERFACILITY TRANSFER NOTE STANDARD TITLE: TRANSFER SUMMARIZATION NOTE DATE OF NOTE: DEC 30, 2024@02:50 ENTRY DATE: DEC 30, 2024@02:55:29 AUTHOR: FILI TORRES EXP COSIGNER: CHRIS FROST URGENCY: STATUS: COMPLETED Department of [facility] Inter-facility Transfer Form This form must be completed for all transfers out of [place] facilities. [facility] form [id number] Physician Certification and Patient Consent for Transfer must also be completed for all transfers. You may complete the [facility] form [id number] via [employer] library. * SECTION I - DEMOGRAPHIC AND ELIGIBILITY INFORMATION * PATIENT IDENTIFICATION: Patient Name: ROBBIE HUANG JR SSN: [id number] PRIMARY SERVICE AREA: [facility] [place] [facility] C[facility]: PRIMARY ELIGIBILTY CODE - [place] LESS THAN 50% SERVICE CONNECTED % - 10 Sep Mr. ROBBIE HUANG [address] [place] [address] Eligible for Travel/Special Mode? DOES PATIENT HAVE ADVANCED DIRECTIVE? No If yes, SEND COPY WITH PATIENT. CODE STATUS: FULL CODE Level of Consciousness: Alert Oxygen Use: No If yes, Vitals: Blood Pressure: 138/78 Heart Rate: 92 Respiratory Rate: 27 COVID-19: Cough: No SOA: No Respiratory issues: No Fever: No Flu-like symptoms: No Known exposure to individuals with confirmed COVID-19: No NOT traveled out of the country: No was tested for COVID-19: Yes If positive screening determined, please direct OSH to transfer in mask. * SECTION II - REASON FOR TRANSFER * NATURE OF SERVICES NEEDED BY PATIENT REQUIRING TRANSFER (Identify) * SECTION III - TYPE AND LEVEL OF SERVICES REQUIRED * 1. DIAGNOSIS CAD BED TYPE: 2. LEVEL OF CARE PRIOR TO TRANSFER (ER, Outpatient, [place], ICU etc.) Emergency Department 3. DESCRIPTION OF TREATMENT PRIOR TO TRANSFER 4. DESCRIPTION OF FURTHER SERVICES NEEDED * SECTION IV - CONDITION OF PATIENT ON TRANSFER * 1. Is the patient medically stable for transfer? Yes DESCRIBE:(e.g. vital signs, significant history, physical findings, mental status, airway status, lab test etc.) MD TO MD REPORT GIVEN 2. Is the patient behaviorally stable for transfer? Yes DESCRIBE: * SECTION V - MODE/EQUIPMENT/STAFF REQUIREMENTS OF TRANSPORTATION * 1. Describe Medically Appropriate Mode of Transportation/Equipment and Staff Requirements: Ambulance Ground 2. IV Medications or other treatments on Route: * SECTION - INFORMATION TO BE SENT WITH PATIENT * * SECTION VII - ACCEPTING PHYSICIAN AND INSTITUTION * DATE AND TIME OF INITIAL CONTACT: Dec@02:40 NAME AND CHAVES OF ACCEPTING PHYSICIAN LYNSEY OGDEN TELEPHONE NUMBER OF ACCEPTING PHYSICIAN [phone] NAME AND ADDRESS OF ACCEPTING FACILITY [facility] [address], [address] MD to MD REPORT GIVEN: Yes ACCEPTING PHYSICIAN HAS CONSENTED TO TRANSFER? Yes NAME OF ADDITIONAL CONTACT AT ACCEPTING FACILITY (optional) JHON FERNANDEZ TELEPHONE NUMBER OF ADDITIONAL CONTACT [phone] * SECTION VIII - REFERRING PHYSICIAN AND INSTITUTION * NAME OF REFERRING FACILITY [facility]: [place] STATE: [place] NAME OF CONTACT: CHARIS TELEPHONE OR PAGER NUMBER: [phone] NAME AND CHAVES OF REFERRING PHYSICIAN DR. FROST, MIKEIST DATE AND TIME OF TRANSFER NURSE to NURSE REPORT ARRANGED: TRANSPORTATION AUTHORIZED? NON-VA MEDICAL SERVICES AUTHORIZED BY CAT DRIVER? Not applicable Patient/Legal General Utility Maintenance Repairer consents to transfer: Yes [facility] FORM [id number] Physician Certification and Patient Consent for Transfer COMPLETED? Not applicable OUTSIDE HOSPITAL PATIENT CONSENT FOR TRANSFER COMPLETED? Not applicable ADDITIONAL COMMENTS: * Inter-facility Infection Control Transfer Form * Is the Patient currently in isolation? Type of Isolation (check all that apply) Does Patient currently have an infection, colonization or a history of positive culture of a multidrug-resistant organism (MDRO) or other organism of epidemiological significance? Methicillin-Resistant Staphylococcus Aureus (MRSA): N/A Vancomycin Resistant Enterococcis (VRE): N/A Clostridium Difficile: N/A Acinetobacter, Multidrug-Resistant: N/A E coli, Klebsiella, Proteus Ect. W/extended Spectrum B-Lactamase (ESBL): N/A Carbapenemase Resistant Enterobacteriaceae (CRE): N/A Other: Does the Patient/Resident currently have any of the following? Is the Patient/Resident currently on antibiotics? Antibiotic and Dose: Treatment for: Start Date: Anticipated Stop Date: Vaccine Influenza (seasonal): Date Administered (if known): Lot and Brand (if known): Year Administered (If exact date not known): Does Patient Self Report Receiving Vaccine? Pneumococcal Date Administered (if known): Lot and Brand (if known): Year Administered (If exact date not known): Does Patient Self Report Receiving Vaccine? Other Date Administered (if known): Lot and Brand (if known): Year Administered (If exact date not known): Does Patient Self Report Receiving Vaccine? If information communicated prior to transfer: Name and Phone of individual at receiving facility == THIS FORM MUST BE COMPLETED AND ELECTRONICALLY SIGNED BY THE REFERRING PHYSICIAN == /jack/ FILI TORRES Health Concreter on Duty (HOD) Signed: 12/30/2024 03:09 /es/ CHRIS FROST ATTENDING PHYSICIAN Cosigned: 12/31/2024 18:07 Receipt Acknowledged By: 12/31/2024 06:35 /es/ April Bell MSN, gis database administrator Nurse Coordinator for TORREY GLASER 12/31/2024 06:30 /jack/ April Bell MSN, gis database administrator Nurse Coordinator FILI TORRES-Bina [facility] Dec 30, 2024 02:38 AM NONVA NOTE: LOCAL TITLE: COMMUNITY CARE-[facility]NY SELF PRESENTING CARE COORD PLAN STANDARD TITLE: NONVA NOTE DATE OF NOTE: DEC 30, 2024@02:38 ENTRY DATE: DEC 30, 2024@02:41:54 AUTHOR: FILI TORRES EXP COSIGNER: URGENCY: STATUS: COMPLETED COMMUNITY CARE-[facility]NY SELF PRESENTING CARE COORD PLAN NOTE Has ADDENDA Emergency Notification Intake Date Presenting to the Facility: Dec Method of Contact: Phone Community [facility] Name: Hospital: [facility] Address: City: [place] State: [place] Zip Code: Phone : Community Facility Point of Contact: Name: CHARIS Phone: Chief complaint: CHEST PAIN Primary Diagnosis: LEFT SIDE CHEST PAIN Disposition Unknown at time of intake note entry /jack/ FILI TORRES Health Concreter on Duty (HOD) Signed: 12/30/2024 02:44 12/31/2024 ADDENDUM STATUS: COMPLETED Transfer Office faxed non-VA care provider and informed [facility] @ FAX [phone] that had presented to OSH on 12/30/2024. Transfer Office requested provider make notification of Veterans self- presentation to the ED/hospital within 72hrs by one of the following options: 1. Emergency Care Reporting Portal: [email or web address] 2. Phone: [phone] or ([phone]) [facility] Call Center will make eligibility determination and payment authorization information directly to the healthcare provider. /jack/ April Bell MSN, gis database administrator Nurse Coordinator Signed: 12/31/2024 06:31 FILI TORRES-[facility]
--- OUTSIDE RECORDS SUMMARY | 2024-12-30 03:38 | XMS_ITS ---
[facility] [place] [facility] Encounter Summary Created on: March 17, 2025 ROBBIE GERMAIN : 1940 Sex: Male Author Name [facility] [place] Organization [facility] [place] Address [address] [place] [address] Care Team Providers Care Acquisition Consultant Name Role Phone DALIA BRIGGS Primary Care Provider Unavailabl e Insurance [...] Asif's Name Patient's Relationship to Policy Asif [facility] [place] BLU[place]ARD MEDICARE SECONDARY (NO B EXC) TI AUTOM OTIVE - RETI Jul 25, 2018 [id number] MALUTI PERKINS SPOUSE MEDICARE (WNR) MEDICARE (M) PART B Jan 22, 2007 PART B [id number] MALUJUSTYNA TINAJERO PATIENT MEDICARE (WNR) MEDICARE (M) PART A Sep 22, 2005 PART A [id number] REINAJUSTYNA PATIENT FOR LIFE TRICA RE FOR LIFE Jul 25, 2017 FOR LIFE [id number] ROBBIE GERMAIN JR PATIENT Selected Encounter This section includes the information on record at OR for the Encounter. Date/Time Encounter Type Encounter Description Reason Provider Source Dec 30, 2024 07:38 AM Inpatient Visit HOSPITALIZATION ICD-10-CM I25.5 Ischemic cardiomyopathy Kal SEVERINO VILMA T Kal Encounter Template Text not used by OR Assessments - Encounter Diagnoses This section includes the primary and secondary diagnoses documented for the Encounter. Date/Time Primary/Secondary Diagnosis Diagnosis Name Provider Source Dec 31, 2024 02:58 PM Diagnosis for Length of Stay Hyp hrt & chr kdny dis w hrt fail and stg 1-4/unsp chr kdny [facility] Dec 31, 2024 02:58 PM SECONDARY Acute on chronic systolic (congestive) heart failure [facility] Dec 31, 2024 02:58 PM SECONDARY Acute respiratory failure with hypoxia [facility] Dec 31, 2024 02:58 PM SECONDARY Athscl heart disease of [place] coronary artery w/o ang pctrs [facility] Dec 31, 2024 02:58 PM SECONDARY Bifascicular block [facility] Dec 31, 2024 02:58 PM SECONDARY Chronic kidney disease, stage 4 (severe) [facility] Dec 31, 2024 02:58 PM SECONDARY Hyperlipidemia, unspecified [facility] Dec 31, 2024 02:58 PM SECONDARY Interstitial pulmonary disease, unspecified [facility] Dec 31, 2024 02:58 PM SECONDARY Ischemic cardiomyopathy [facility] Dec 31, 2024 02:58 PM SECONDARY Other chest pain [facility] Dec 31, 2024 02:58 PM SECONDARY Type 2 diabetes mellitus w diabetic chronic kidney disease [facility] Plan of Treatment: Future Appointments (+ 6 months) and Future Tests (+/- 45 days) The Plan of Treatment section includes future care activities for the patient from all OR treatmentfacilities. This section includes future appointments and future orders which are active, pending or scheduled. Future Appointments This section includes appointments that were scheduled to occur 6 months from the date of the Encounter, up to a maximum of 20 appointments. The data comes from all [facility] treatment facilities. Appointment Date/Time Appointment Type Appointme nt Facility Name Jan 11, 2025 10:45 AM AMBULATORY - MEDICINE [place] [facility] Jan 17, 2025 09:30 AM [place]ORY - NONE [place] [facility] Jan 23, 2025 01:30 PM [place] - N[place] [facility] Jan 28, 2025 01:30 PM AMBULATORY - SURGERY [place] [facility] Jan 31, 2025 03:00 PM AMBULATORY - MEDICINE [place] Feb 05, 2025 01:00 PM AMBULATORY - MEDICINE [place]ON[place] [facility] Feb 05, 2025 02:00 PM AMBULATORY - MEDICINE [place] [facility] Feb 07, 2025 01:15 PM AMBULATORY - MEDICINE [place] [facility] Feb 08, 2025 01:30 PM [place]ORY [place] NONE [place] [facility] Mar 04, 2025 01:30 PM [place]ORY [place] NONE [place] [facility] Mar 18, 2025 01:30 PM [place]ORY - NONE [place] [facility] Mar 19, 2025 01:00 PM AMBULATORY - MEDICINE [place] [facility] Apr 11, 2025 02:00 PM AMBULATORY - MEDICINE [place] Active, Pending, and Scheduled Orders This section includes a listing of several types of active, pending, and scheduled orders, including clinic medications orders, diagnostic test orders, procedure orders and consult orders; where the start date of the order is 45 days before the date of the Encounter or 45 days after the date of theEncounter. The data comes from all [facility]. 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 Lab Results: +/- 30 days of the encounter This section includes the Chemistry and Hematology Lab Results on record with OR for the patient. Radiology Reports and Pathology Reports are provided separately, in subsequent sections. Lab Results This section contains the Chemistry/Hematology Results that were resulted 30 days before or 30 daysafter the date of the Encounter. Date/Time Source Result Type Result - Unit Interpretation Reference Range Specimen Type Comment Jan 28, 2025 02:32 PM [facility] WN CREATININE URINE Specimen Type: URINE No comment entered. Ordering Provider: APARNA KING Report Released Date/Time: Oct 02, 2024 03:22 PM Reporting Lab: [place] [id number] Performing Lab: [place] [phone] CREATININE 92.7 mg/dL Jan 28, 2025 02:32 PM [facility] TOTAL PROTEIN URINE Specimen Type: URINE No comment entered. Ordering Provider: APARNA KING Report Released Date/Time: Oct 02, 2024 03:22 PM Reporting Lab: [place] [id number] Performing Lab: [place] [id number] TOTAL PROTEIN 15 mg/dL H 0-14 Jan 28, 2025 02:32 PM [facility] URINALYSIS URINE Specimen Type: URINE Comment: Microscopic not indicated Ordering Provider: APARNA KING Report Released Date/Time: Oct 02, 2024 03:22 PM Reporting Lab: [place] [id number] Performing Lab: [place] [id number] URINE COLOR Light Yellow Colorless-Yello w APPEARANCE Clear Clear UROBILINOGEN Normal mg/dL Normal URINE BLOOD Negative Negative URINE BILIRUBIN Negative Negative URINE KETONES Negative mg/dL Negative URINE PROTEIN Negative mg/dL Negative-Tr rachell URINE PH 5.5 4.5-8.0 URINE NITRITE Negative Negative URINE LEUKOCYTE EST Negative Negative SPECIFIC GRAVITY 1.019 1.005-1.030 URINE GLUCOSE >1000 mg/dL H Negative Jan 28, 2025 02:21 PM [facility] PTH INTACT (AHUMADA) PLASMA Spe cimen Type: PLASMA Comment: For intraoperative testing samples drawn 10 minutes post resection should decrease >50% from the highest baseline. STAT assay time 18 minutes. Dialysis patients are typically maintained by using multiples of the reference range upper limit: this is the Ahumada assay, a 2nd generation intact PTH method. Hemolysis and high levels of protein can interfere. Heterophilic antibodies can interfere. Ordering Provider: APARNA KING Report Released Date/Time: Oct 02, 2024 03:22 PM Reporting Lab: [place] [address] Performing Lab: [place] [address] PTH INTACT (AHUMADA) 130.0 pg/mL H 8.7-77.1 Jan 28, 2025 02:21 PM [facility] 25-OH VITAMIN D SERUM Specime n Type: SERUM Comment: The National Institutes of Health (NIH) recommendations state: <12 ng/mL - Deficient 20 - 50 ng/mL - Optimal Levels - adequate for most people. >50 ng/mL - Increased risk of hypercalciuria/other health problems - clinical correlation is required. These reference ranges represent clinical decision values rather than population-based reference values. Ordering Provider: APARNA KING Report Released Date/Time: Oct 02, 2024 03:22 PM Reporting Lab: [place] [address] Performing Lab: [place] [address] 25-OH VITAMIN D 40.7 ng/mL 20.0-50.0 Jan 28, 2025 02:21 PM [facility] CBC/PLT BLOOD Specimen Type: BLOOD No comment entered. Ordering Provider: APARNA KING Report Released Date/Time: Oct 02, 2024 03:22 PM Reporting Lab: [place] [id number] Performing Lab: [place] [id number] WBC 6.5 10*3/uL 5.0-10.0 RBC 4.18 10*6/uL L 4.6-6.2 HGB 12.4 g/dL L 14.0-18.0 HCT 39.2 L 42.0-52.0 MCV 93.8 fL 80.0-94.0 MCH 29.7 pg 27.0-31.0 MCHC 31.6 g/dL L 32.0-36.0 PLT 212 10*3/uL 150-450 MPV 10.7 fL 9.0-13.1 RDW 13.9 11.0-16.0 NRBC 0.0 0.0-0.0 Jan 28, 2025 02:20 PM [facility] PHOSPHORUS PLASMA Specimen Type: PLASM A Comment: Estimated [...] decrease <15 G5 Kidney failure Ordering Provider: KAMI NORRIS Report Released Date/Time: Jan 17, 2025 09:57 AM Reporting Lab: [address] [address] Performing Lab: [address] [address] PHOSPHORUS 3.5 mg/dL 2.3-4.7 Jan 28, 2025 02:20 PM [facility] ALBUMIN PLASMA Specimen Type: PLASM A Comment: Estimated [...] decrease <15 G5 Kidney failure Ordering Provider: KAMI NORRIS Report Released Date/Time: Jan 17, 2025 09:57 AM Reporting Lab: [address] [address] Performing Lab: [facility] [address] [facility] [address] ALBUMIN 4.1 g/dL 3.5-5.2 Jan 28, 2025 02:20 PM [facility] PL[facility] Specimen Type: PLASM A [...] decrease <15 G5 Kidney failure Ordering Provider: KAMI NORRIS Report Released Date/Time: Jan 17, 2025 09:57 AM Reporting Lab: [facility] [address] [facility] [address] Performing Lab: [facility] [address] [facility] [address] CREATININE 2.55 mg/dL H 0.72-1.25 UREA NITROGEN 38 mg/dL H 9-25 GLUCOSE 91 mg/dL 74-100 SODIUM 142 mmol/L 136-145 POTASSIUM 4.5 mmol/L 3.5-5.1 CHLORIDE 109 mmol/L H 98-107 CO2 25 mmol/L 22-29 CALCIUM 8.8 mg/dL 8.4-10.2 ANION GAP 8 meq/L 3-19 eGFR (CKD-EPI) Jan 11, 2025 09:53 AM [facility] Specimen Type: PLASM A [...] <15 G5 Kidney failure Ordering Provider: DALIA BRIGGS Report Released Date/Time: Jan 08, 2025 02:55 PM Reporting Lab: [address] [address] Performing Lab: [address] [address] CREATININE 2.62 mg/dL H 0.72-1.25 UREA NITROGEN 46 mg/dL H 9-25 GLUCOSE 105 mg/dL H 74-100 SODIUM 143 mmol/L 136-145 POTASSIUM 4.7 mmol/L 3.5-5.1 CHLORIDE 107 mmol/L 98-107 CO2 25 mmol/L 22-29 CALCIUM 9.3 mg/dL 8.4-10.2 ANION GAP 11 meq/L 3-19 eGFR (CKD-EPI) Dec 31, 2024 12:02 PM [facility] GLUCOSE-HAND MONITOR CAPILLARY Specime n Type: CAPILLARY Comment: Test performed by: [id number] Meter #: [id number] Ordering Provider: CHLOE SEVERINO Report Released Date/Time: Dec 31, 2024 12:58 PM Reporting Lab: [address] [address] Performing Lab: [address] [address] GLUCOSE-HAND MONITOR 129 mg/dL H 71-99 Dec 31, 2024 07:50 AM [facility] PANEL 1 PLASMA Specimen Type: PLASM A [...] Dec 30, 2024 08:23 AM Reporting Lab: [address] [address] Performing Lab: [address] [address] CREATININE 2.04 mg/dL H 0.72-1.25 UREA NITROGEN 31 mg/dL H 9-25 GLUCOSE 94 mg/dL 74-100 SODIUM 138 mmol/L 136-145 POTASSIUM 4.4 mmol/L 3.5-5.1 CHLORIDE 105 mmol/L 98-107 CO2 25 mmol/L 22-29 CALCIUM 8.9 mg/dL 8.4-10.2 ANION GAP 8 meq/L 3-19 eGFR (CKD-EPI) 32 Dec 31, 2024 07:50 AM [facility] CBC/PLT BLOOD Specimen Type : BLOOD No comment entered. Ordering Provider: CHLOE SEVERINO Report Released Date/Time: Dec 30, 2024 08:23 AM Reporting Lab: [place] [id number] Performing Lab: [place] [id number] WBC 8.2 10*3/uL 5.0-10.0 RBC 4.03 10*6/uL L 4.6-6.2 HGB 12.0 g/dL L 14.0-18.0 HCT 37.2 L 42.0-52.0 MCV 92.3 fL 80.0-94.0 MCH 29.8 pg 27.0-31.0 MCHC 32.3 g/dL 32.0-36.0 PLT 191 10*3/uL 150-450 MPV 10.5 fL 9.0-13.1 RDW 13.8 11.0-16.0 NRBC 0.0 0.0-0.0 Dec 31, 2024 06:38 AM [facility] GLUCOSE-HAND MONITOR CAPILLARY Specime n Type: CAPILLARY Comment: Test performed by: [id number] Meter #: [id number] Ordering Provider: CHLOE SEVERINO Report Released Date/Time: Dec 31, 2024 07:17 AM Reporting Lab: [place] [phone] Performing Lab: [place] [phone] GLUCOSE-HAND MONITOR 99 mg/dL -Dec 30, 2024 08:10 PM [facility] GLUCOSE-HAND MONITOR CAPILLARY Specime n Type: CAPILLARY Comment: Test performed by: [id number] Meter #: [id number] Ordering Provider: CHLOE SEVERINO Report Released Date/Time: Dec 30, 2024 09:15 PM Reporting Lab: [place] [id number] Performing Lab: [place] [id number] GLUCOSE-HAND MONITOR 124 mg/dL H 71-99 Dec 30, 2024 04:21 PM [facility] GLUCOSE-HAND MONITOR CAPILLARY Specime n Type: CAPILLARY Comment: Test performed by: [id number] Meter #: [id number] Ordering Provider: CHLOE SEVERINO Report Released Date/Time: Dec 30, 2024 04:39 PM Reporting Lab: [address] [address] Performing Lab: [address] [address] GLUCOSE-HAND MONITOR 92 mg/dL -Dec 30, 2024 11:54 AM [facility] MRSA SURVL NARES DNA NARES Specime n [...] may not indicate eradication success. Ordering Provider: BARTOLO EDMONDSON Report Released Date/Time: Dec 30, 2024 10:43 AM Reporting Lab: [address] [address] Performing Lab: [address] [address] MRSA SURVL NARES DNA Negative Negative Dec 30, 2024 11:39 AM [facility] GLUCOSE-HAND MONITOR CAPILLARY Specime n Type: CAPILLARY Comment: Test performed by: [id number] Meter #: [id number] Ordering Provider: CHLOE SEVERINO Report Released Date/Time: Dec 30, 2024 11:56 AM Reporting Lab: [address] [address] Performing Lab: [address] [address] GLUCOSE-HAND MONITOR 115 mg/dL H -Dec 30, 2024 07:46 AM [facility] CODE / TECHNOLOGIES DIVISION CHAIR VENOUS BLOOD GAS VENOUS BLOOD Specimen Type: VENOUS BLOOD Comment: Collection Time: 12-30-2024 @ 07:46 Ordering Provider: BARTOLO EDMONDSON Report Released Date/Time: Dec 30, 2024 07:54 AM Reporting Lab: [address] [address] Performing Lab: [address] [address] .VpCO2 46 mm[Hg] 41-51 .VpH 7.34 7.33-7.43 Dec 30, 2024 07:46 AM [facility] CODE / TECHNOLOGIES DIVISION CHAIR BLUE TOP PLASMA Specimen Type: PLASMA No comment entered. Ordering Provider: BARTOLO EDMONDSON Report Released Date/Time: Dec 30, 2024 07:53 AM Reporting Lab: [address] [address] Performing Lab: [address] [address] PT PATIENT 15.1 s H 11.7-14.4 INTERNATIONAL NORMALIZED RATIO 1.21 H 0 .87-1.14 PTT PATIENT 32.2 s 24.0-33.2 Dec 30, 2024 07:46 AM [facility] CODE / TECHNOLOGIES DIVISION CHAIR GREEN TOP PLASMA Specimen Type: ALFREDITO SMA [...] decrease <15 G5 Kidney failure Ordering Provider: BARTOLO EDMONDSON Report Released Date/Time: Dec 30, 2024 07:53 AM Reporting Lab: [address] [address] Performing Lab: [address] [address] IONIZED CALCIUM 1.13 mmol/L L 1.15-1.29 CREATININE [...] 6 4-35 Dec 30, 2024 07:46 AM [facility] CODE / TECHNOLOGIES DIVISION CHAIR BACH TOP PLASMA Specimen Type: PLASMA No comment entered. Ordering Provider: BARTOLO EDMONDSON Report Released Date/Time: Dec 30, 2024 07:53 AM Reporting Lab: [address] [address] Performing Lab: [address] [address] LACTIC ACID 0.9 mmol/L 0.5-2.2 Dec 30, 2024 07:46 AM [facility] CODE / TECHNOLOGIES DIVISION CHAIR LAVENDER TOP BLOOD Spec imen Type: BLOOD No comment entered. Ordering Provider: BARTOLO EDMONDSON Report Released Date/Time: Dec 30, 2024 07:53 AM Reporting Lab: [address] [address] Performing Lab: [address] [address] WBC 10.2 10*3/uL H 5.0-10.0 RBC 4.04 10*6/uL L 4.6-6.2 HGB 12.3 g/dL L 14.0-18.0 HCT 37.6 L 42.0-52.0 MCV 93.1 fL 80.0-94.0 MCH 30.4 pg 27.0-31.0 MCHC 32.7 g/dL 32.0-36.0 PLT 187 10*3/uL 150-450 MPV 10.2 fL 9.0-13.1 RDW 13.8 11.0-16.0 NRBC 0.0 0.0-0.0 December 03, 2024 02:03 PM [facility] PROTEIN ELECTROPHORESIS URINE Specimen Type: URINE No comment entered. Ordering Provider: DALIA BRIGGS Report Released Date/Time: December 03, 2024 01:24 PM Reporting Lab: [address] [address] Performing Lab: [address] [address] TOTAL PROTEIN 17.0 mg/dL Not Estab. .ALBUMIN ELEC 29.4 .ALPHA 1 ELEC 5.2 .ALPHA 2 ELEC 21.5 .BETA ELEC 19.7 .GAMMA ELEC 24.2 .M-SPIKE Not Observed Not Observed December 03, 2024 02:03 PM [facility] TOTAL PROTEIN URINE Specimen Type: URINE No comment entered. Ordering Provider: DALIA BRIGGS Report Released Date/Time: December 03, 2024 01:24 PM Reporting Lab: [address] [address] Performing Lab: [address] [address] TOTAL PROTEIN 16 mg/dL H 0-14 December 03, 2024 02:03 PM [facility] CREATININE URINE Specimen Type: URINE No comment entered. Ordering Provider: DALIA BRIGGS Report Released Date/Time: December 03, 2024 01:24 PM Reporting Lab: [address] [address] Performing Lab: [address] [address] CREATININE 63.6 mg/dL December 03, 2024 02:03 PM [facility] URINALYSIS URINE Specimen Type: URINE Comment: Microscopic not indicated Ordering Provider: DALIA BRIGGS Report Released Date/Time: December 03, 2024 01:29 PM Reporting Lab: [address] [address] Performing Lab: [address] [address] URINE COLOR Light Yellow Colorless-Yello w APPEARANCE Clear Clear UROBILINOGEN Normal mg/dL Normal URINE BLOOD Negative Negative URINE BILIRUBIN Negative Negative URINE KETONES Negative mg/dL Negative URINE PROTEIN Negative mg/dL Negative-Tr rachell URINE PH 5.0 4.5-8.0 URINE NITRITE Negative Negative URINE LEUKOCYTE EST Negative Negative SPECIFIC GRAVITY 1.014 1.005-1.030 URINE GLUCOSE >1000 mg/dL H Negative December 03, 2024 01:45 PM [facility] ANTI-NUCLEAR Ab SERUM Specimen Type: SERUM Comment: Atypical speckled resembling DFS (Dense-Fine Speckled. The DFS pattern has a low prevalence in systemic autoimmune rheumatic diseases. The clinical association remains unclear. Due to its close resemblance to other patterns of clinical relevance, (i.e. Homogeneous, speckled, and mixed patterns) follow-up testing may be recommended. ANTI-NUCLEAR Ab reported incorrectly as Atypical Speckled by [[id number]]. Changed to 1:320 Atypical Speckled on December 06, 2024@12:59 by [[id number]]. Ordering Provider: DALIA BRIGGS Report Released Date/Time: December 03, 2024 01:38 PM Reporting Lab: [address] [address] Performing Lab: [address] [address] ANTI-NUCLEAR Ab 1:320 Atypical Speckled <1:80 December 03, 2024 01:45 PM [facility] ROSALIE (SERUM) SERUM Specimen Type: SERUM Comment: BNP results less than or equal to 100 pg/ml are public service representative of normal values in patients without CHF. BNP results greater than 100 pg/ml are considered abnormal and suggestive of CHF. Higher BNP concentrations in the first 72 hours after Acute Coronary Syndrome are associated with an increased risk of , myocardial infarction and CHF. Ordering Provider: DALIA BRIGGS Report Released Date/Time: December 03, 2024 01:24 PM Reporting Lab: [address] [address] Performing Lab: [facility] [address] [facility] [address] .ALBUMIN ELEC 3.6 g/dL 2.9-4.4 .ALPHA 1 [...] 03, 2024 01:45 PM [facility] JORDAN SCREEN SERUM Specimen Type: SERUM No comment entered. Ordering Provider: DALIA BRIGGS Report Released Date/Time: December 03, 2024 01:38 PM Reporting Lab: [address] [address] Performing Lab: [place] [phone] JORDAN SCREEN Negative Negative December 03, 2024 01:45 PM [facility] BNP ([employer]) PLASMA Specimen Type: PLASMA Comment: BNP results less than or equal to 100 pg/ml are public service representative of normal values in patients without CHF. BNP results greater than 100 pg/ml are considered abnormal and suggestive of CHF. Higher BNP concentrations in the first 72 hours after Acute Coronary Syndrome are associated with an increased risk of , myocardial infarction and CHF. Ordering Provider: DALIA BRIGGS Report Released Date/Time: December 03, 2024 01:24 PM Reporting Lab: [address] [address] Performing Lab: [facility] [address] [facility] [address] BNP (AHUMADA) 225 pg/mL H 0-100 December 03, 2024 01:45 PM [facility] TOTAL PLASMA Specimen Type: PLASM A [...] <15 G5 Kidney failure Ordering Provider: DALIA BRIGGS Report Released Date/Time: December 03, 2024 01:33 PM Reporting Lab: [place] [address] [address] Performing Lab: [address] [address] CK TOTAL 76 U/L 30-200 December 03, 2024 01:45 PM [facility] PLASMA Specimen Type: [...] <15 G5 Kidney failure Ordering Provider: DALIA BRIGGS Report Released Date/Time: December 03, 2024 01:24 PM Reporting Lab: [address] [address] Performing Lab: [address] [address] CREATININE 2.05 mg/dL H 0.72-1.25 UREA NITROGEN [...] December 03, 2024 01:45 PM [facility] CBC/PLT BLOOD Specimen Type: BLOOD No comment entered. Ordering Provider: DALIA BRIGGS Report Released Date/Time: December 03, 2024 01:33 PM Reporting Lab: [address] [address] Performing Lab: [place] [phone] WBC 5.6 10*3/uL 5.0-10.0 RBC 4.24 10*6/uL L 4.6-6.2 HGB 12.8 g/dL L 14.0-18.0 HCT 39.4 L 42.0-52.0 MCV 92.9 fL 80.0-94.0 MCH 30.2 pg 27.0-31.0 MCHC 32.5 g/dL 32.0-36.0 PLT 248 10*3/uL 150-450 MPV 10.2 fL 9.0-13.1 RDW 14.2 11.0-16.0 NRBC 0.0 0.0-0.0 December 03, 2024 01:45 PM [facility] AUTOMATED DIFF BLOOD Specimen Type: BLOOD No comment entered. Ordering Provider: DALIA BRIGGS Report Released Date/Time: December 03, 2024 01:33 PM Reporting Lab: [facility] [address] [facility] [address] Performing Lab: [facility] [address] [facility] [address] A-LYMPH % 22.1 L 24.0-44.0 A-MONO % [...] 63 122/66 16 96 0 [place] [facility] Dec 30, 2024 09:00 PM 0 [place] [facility] Dec 30, 2024 08:10 PM 97.6 65 136/72 18 92 0 [place] [facility] Dec 30, 2024 03:55 PM 97.0 61 144/77 18 97 2 [place] [facility] Dec 30, 2024 10:27 AM 97.0 63 126/66 18 97 0 [place] Social History: Smoking Status (Most current) and Tobacco Use (All prior to encounter date) This section includes the most current, and the historical, smoking and tobacco- related health factors from the [place] facility where the Encounter took place. Current Smoking Status This section includes the most current smoking, or tobacco-related health factor, from the OR facility where the Encounter took place. Date/Time Current Smoking Status Comment Kelechi dial May 10, 2024 02:00 PM VA-TOBACCO NEVER USED [facility] Tobacco Use History This section includes a history of the smoking, or tobacco-related health factors, that were collected on or before the date of the Encounter. The data comes from the OR facility where the Encounter took place. Date/Time Smoking Status/Tobacco Use Comment Ricardo dudley May 19, 2017 03:22 AM NON-TOBACCO USE INPATIENT [facility] Sep 07, 2016 02:41 AM NON-TOBACCO USE INPATIENT [facility] Apr 21, 2004 08:29 AM HF V9 CURRENT NON-SMOKER quit smoking about 30 yrs ago [facility] Sep 06, 2002 02:26 PM HF V9 CURRENT NON-SMOKER QUIT SMOKING ABOUT 31 YRS AGO [facility] Radiology Reports: +/- 30 days [...] the Encounter. The data comes from all OR treatment facilities. Date/Time Radiology Report Provider Source Jan 28, 2025 01:17 PM VENOUS DUPLEX LOWE R EXT BILAT: ROBBIE GERMAIN [id number] -1940 M Exm Date: JAN 28, 2025@13:17 Req Phys: DALIA BRIGGS Loc: VETO PACT [facility]ITNEY 16-1 (Req'g Loc) Img Loc: VETO VAS LAB [facility] Service: Unknown (Case [id number] COMPLETE) VENOUS DUPLEX LOWER EXT BILAT (VAS Detailed) CPT:53307 Reason for Study: SEE CLINICAL HISTORY Clinical History: Venous Duplex for Valvular Competence/Venous Insufficiency: Chronic venous insufficiency Report Status: Verified Date Reported: JAN 29, 2025 Date Verified: JAN 29, 2025 Travel Physical Therapist E-Sig: Report: EXAM: VENOUS DUPLEX EXAM OF THE LOWER EXTREMITY TECHNIQUE: Lea-scale, color Doppler and spectral Doppler images are obtained of the venous system in the lower extremity, with transverse compression and Doppler exam with augmentation. COMPARISON: No prior FINDINGS: Right: The right lower extremity deep venous system was surveyed demonstrating normal venous compressibility of the common femoral vein, femoral vein, popliteal vein, peroneal vein, and posterior tibial vein. GSV appears compressible in portions visualized. The Doppler signals obtained in the CFV, FV and popliteal veins demonstrate respirophasicity and appropriate response to distal augmentation. Venous valvular insufficiency noted in right CFV 2.92s and right GSV at knee 9.19s. Left: The left lower extremity deep venous system was surveyed demonstrating normal venous compressibility of the common femoral vein, femoral vein, popliteal vein, peroneal vein, and posterior tibial vein. GSV appears compressible in portions visualized. The Doppler signals obtained in the CFV, FV and popliteal veins demonstrate respirophasicity and appropriate response to distal augmentation. No venous valvular insufficiency noted in left lower extremity. Impression: RIGHT: There was no acute deep venous thrombosis identified. There was no superficial venous thrombosis identified. Valvular venous insufficiency present in CFV and GSV at knee. LEFT: There was no acute deep venous thrombosis identified. There was no superficial venous thrombosis identified. No valvular venous insufficiency noted. TECH:NM Primary Diagnostic Code: SIGNIFICANT ABNORMALITY, ATTN NEEDED Primary Interpreting Staff: NICOLASA FLORES, ATTENDING PHYSICIAN Verified by tonal regulator for NICOLASA FLORES /NICOLASA SOMMER [facility] Jan 28, 2025 01:17 PM SEGMENTAL PRESSURE S, LOWER EXT(FLORENCE) UNILAT: ROBBIE GERMAIN [id number] -1940 M Ex Date: JAN 28, 2025@13:17 Req Phys: DALIA BRIGGS Pat Loc: [facility]O PACT [facility] 16-1 (Req'g Loc) Img Loc: VETO VAS LAB [facility] Service: Unknown (Case [id number] COMPLETE) SEGMENTAL PRESSURES, LOWER EXT(AB(VAS Detailed) CPT:08220 Reason for Study: SEE CLINICAL HISTORY Clinical History: FLORENCE's/Segs Indications: Other: BLE edema, r/o PVD for compression tx. Report Status: Verified Date Reported: JAN 29, 2025 Date Verified: JAN 29, 2025 Travel Physical Therapist E-Sig: Report: LE segmental pressures TECHNIQUE: Continuous wave Doppler waveforms are obtained from pedal vessels, segmental pressures are measured at rest. Photoplethysmographic waveforms are obtained of the digits with pressure measurement. COMPARISON: No prior FINDINGS: Right: Right brachial arterial pressure is 134 mmHg. Multiphasic waveforms are noted in the right posterior tibial and right dorsalis pedis arteries. ABIs demonstrate calcification with right STATISTICAL SECRETARY 1.44, left DPA 1.28. Right toe pressure is 115 mmHg. Left: Left brachial arterial pressure is 134 mmHg. Multiphasic waveforms are noted in the left posterior tibial and left dorsalis pedis arteries. ABIs demonstrate calcification with right STATISTICAL SECRETARY 1.44, left DPA 1.21. Left toe pressure is 115 mmHg. Impression: Right: Abnormal study. No evidence of hemodynamically significant disease is identified by waveform analysis and toe pressures. 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 Left: Abnormal study. No evidence of hemodynamically significant disease is identified by waveform analysis and toe pressures. 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 TECH: NM Primary Diagnostic Code: SIGNIFICANT ABNORMALITY, ATTN NEEDED Primary Interpreting Staff: NICOLASA FLORES, ATTENDING PHYSICIAN Verified by tonal regulator for NICOLASA FLORES /NICOLASA SOMMER [facility] Dec 30, 2024 01:13 AM 25790 RADIOLOGY EX AM PERF/INTER BY OTHER FACILITY: ROBBIE GERMAIN [id number] -1940 M Exm Date: DEC 30, 2024@01:13 Req Phys: DALIA BRIGGS Loc: VETO X-RAY/ROUTINE/CDD/NC (Req' Img Loc: OUTSIDE2 LD RAD Service: Unknown (Case [id number] COMPLETE) [id number] RADIOLOGY EXAM PERF/INTER B(RAD Detailed) CPT:94376 Reason for Study: Exam imported from outside Clinical History: Original Data for Imported Study Patient Name: ROBBIE GERMAIN Date: 1940 Sex: M Study Date: 12/30/24 Study Time: 01:13:02 Study Description: XR CHEST PORTABLE Referring Physician: RICHARD CHAVES 1: 1 CR file Acquisition site: [facility] Report Status: Electronically Filed Date Reported: JAN 23, 2025 Report: Electronically generated report for outside study. Impression: Electronically generated report for outside study. Primary Diagnostic Code: VERIFIED BY: / *ELECTRONICALLY FILED* [facility] December 14, 2024 07:49 AM CARD. STRESS TEST W/TREADMILL/...: REINAROBBIE MICA [id number] -1940 M Exm Date: DECEMBER 14, 2024@07:49 Req Phys: DALIA BRIGGS [facility] Img Loc: NUCLEAR MEDICINE Service: [place] [address] (Case [id number] COMPLETE)CARD. STRESS TEST W/TREADMILL/...(NM Detailed) CPT:26848 Reason for Study: SEE CLINICAL HISTORY Clinical History: Cardiology approval by: [facility] SERVICE CONNECTED? No Active Outpatient Medications (including [...] 14, 2024 Date Verified: DECEMBER 14, 2024 Travel Physical Therapist E-Sig: Report: STUDY: GXT with vasodilator REPORT: [...] Staff: CHAO ORR APRN, Cardiology Verified by tonal regulator for CHAO ORR /CHAO GIRON-ISMAEL [facility] December 14, 2024 07:49 AM [id number] REGADENOSON 0.1MG X4 (LEXISCAN): ROBIBE GERMAIN MICA [id number] -1940 M Exm Date: DECEMBER 14, 2024@07:49 Req Phys: DALIA BRIGGS Loc: VETO PACT WHITNEY 16-1 (Req'g Loc) Img Loc: NUCLEAR MEDICINE Service: [place] [address] (Case [id number] COMPLETE)[id number] REGADENOSON 0.1MG X4 (STEPHON(NM Detailed) CPT:J2785 [...] 14, 2024 Date Verified: DECEMBER 14, 2024 Travel Physical Therapist E-Sig: Report: STUDY: GXT with vasodilator REPORT: [...] Staff: CHAO ORR APRN, Cardiology Verified by tonal regulator for CHAO ORR /CHAO GIRON-D [facility] December 14, 2024 07:49 AM CARD. STRESS TEST W/TREADMILL/...: ROBBIE GERMAIN [id number] -1940 M Exm Date: DECEMBER 14, 2024@07:49 Req Phys: DALIA BRIGGS Loc: [facility] 16-1 (Req'g Loc) [facility] [place]: [facility]UCLEAR MEDICINE Service: [place] [address] (Case [id number] COMPLETE)CARD. STRESS TEST W/TREADMILL/...(NM Detailed) CPT:17776 Proc Modifiers : GXT Reason for Study: SEE CLINICAL HISTORY Clinical History: Cardiology approval by: [facility] CONNECTED? No Active Outpatient Medications (including [...] 14, 2024 Date Verified: DECEMBER 14, 2024 Travel Physical Therapist E-Sig: Report: [facility], [place], [place] STUDY: Regadenoson (Lexiscan) SPECT [...] performed with tomographic and three-dimensional reconstructions with RallyOn NM/CT 640 system. Exercise: Patient exercised for [...] data sets in addition to the conventional clk-mabqidlynkw-nbbyjdafc images. Both filtered back projection and iterative [...] ventricular cavity. 4. SPECT images: Attenuation-corrected and ucw-sxshksdksfk-dualwzafm SPECT images were evaluated. SPECT images demonstrate [...] JEB SANTOS MD, CARDIOLOGY ATTENDING Verified by tonal regulator for JEB SANTOS MD /JEB MANCILLA-CDD [facility] December 14, 2024 07:49 AM MYOVIEW(2): ROBBIE GERMAIN [id number] -1940 M Exm Date: DECEMBER 14, 2024@07:49 Req Phys: DALIA BRIGGS Pat Loc: [facility] PACT WHITNEY 16-1 (Req'g Loc) Img Loc: NUCLEAR MEDICINE Service: [place] [address] (Case [id number] COMPLETE)MYOVIEW(2) (NM Detailed) CPT:A9502 Reason for Study: [...] 14, 2024 Date Verified: DECEMBER 14, 2024 Travel Physical Therapist E-Sig: Report: [facility], [place], [place] STUDY: Regadenoson (Lexiscan) SPECT [...] performed with tomographic and three-dimensional reconstructions with RallyOn NM/CT 640 system. Exercise: Patient exercised for [...] data sets in addition to the conventional btg-eifowdymdej-qvdpwqizf images. Both filtered back projection and iterative [...] ventricular cavity. 4. SPECT images: Attenuation-corrected and bwa-fxqeatcbyiw-hvjsznaav SPECT images were evaluated. SPECT images demonstrate [...] JEB SANTOS MD, CARDIOLOGY ATTENDING Verified by tonal regulator for JEB SANTOS MD /JEB MANCILLA-CDD [facility] December 14, 2024 07:49 AM 39501(D) MYOCARDIA L SPECT(MULTIPLE): ROBBIE GERMAINALEM [id number] -1940 M Exm Date: DECEMBER 14, 2024@07:49 Req Phys: DALIA BRIGGS Pat [facility]) Img Loc: NUCLEAR MEDICINE Service: [place] [address] (Case [id number] COMPLETE)75419(D) MYOCARDIAL SPECT(MULTIPL(NM Detailed) CPT:34571 Proc Modifiers : Lexiscan (Regadenoson) CPT Modifiers [...] 14, 2024 Date Verified: DECEMBER 14, 2024 Travel Physical Therapist E-Sig: Report: [facility], [place], [place] STUDY: Regadenoson (Lexiscan) SPECT [...] performed with tomographic and three-dimensional reconstructions with RallyOn NM/CT 640 system. Exercise: Patient exercised for [...] data sets in addition to the conventional bpp-ejagdsmgllc-vukciivac images. Both filtered back projection and iterative [...] ventricular cavity. 4. SPECT images: Attenuation-corrected and smj-hkjynodvjat-lbhjqokir SPECT images were evaluated. SPECT images demonstrate [...] JEB SANTOS MD, CARDIOLOGY ATTENDING Verified by tonal regulator for JEB SANTOS MD /JEB MANCILLA-CDD [facility] December 14, 2024 07:49 AM MYOVIEW(1): REINAROBBIE MICA [id number] -1940 M Exm Date: DECEMBER 14, 2024@07:49 Req Phys: DALIA BRIGGS Pat Loc: [facility] PACT WHITNEY 16-1 (Req'g Loc) Img Loc: NUCLEAR MEDICINE Service: [place] [address] (Case [id number] COMPLETE)MYOVIEW(1) (NM Detailed) CPT:A9502 Reason for Study: [...] 14, 2024 Date Verified: DECEMBER 14, 2024 Travel Physical Therapist E-Sig: Report: [facility], [place] STUDY: Regadenoson (Lexiscan) SPECT [...] performed with tomographic and three-dimensional reconstructions with RallyOn NM/CT 640 system. Exercise: Patient exercised for [...] data sets in addition to the conventional qfx-adttjbxokkx-aifoemjly images. Both filtered back projection and iterative [...] ventricular cavity. 4. SPECT images: Attenuation-corrected and wny-whofqfcjwsu-cblpszoer SPECT images were evaluated. SPECT images demonstrate [...] JEB SANTOS MD, CARDIOLOGY ATTENDING Verified by tonal regulator for JEB SANTOS MD /JEB MANCILLA-D [facility] December 14, 2024 07:49 AM [id number] REGADENOSON 0.1MG X1 (LEXISCAN): ROBBIE GERMAIN [id number] -1940 M Exm Date: DECEMBER 14, 2024@07:49 Req Phys: DALIA BRIGGS Loc: [facility]O PACT WHITNEY 16-1 (Req'g Loc) Img Loc: NUCLEAR MEDICINE Service: Unknown [place] [id number] (Case [id number] COMPLETE)[id number] REGADENOSON 0.1MG X1 (STEPHON(NM Detailed) CPT:J2785 [...] 14, 2024 Date Verified: DECEMBER 14, 2024 Travel Physical Therapist E-Sig: Report: [place], [place] STUDY: Regadenoson (Lexiscan) SPECT Tc-99m myoview [...] performed with tomographic and three-dimensional reconstructions with RallyOn NM/CT 640 system. Exercise: Patient exercised for [...] data sets in addition to the conventional rje-gqdteowicgv-ntimjocyv images. Both filtered back projection and iterative [...] ventricular cavity. 4. SPECT images: Attenuation-corrected and rcc-vxdgswzwvta-unpqjyhwq SPECT images were evaluated. SPECT images demonstrate [...] calculated post-stress LVEF is 29%. Participating Fellow: Jaun R Conn M.D. COMMUNICATION: Per this written report. ATTESTATION: I have personally reviewed the electrocardiograms and SPECT images with the participating physicians and agree with the report. Primary Diagnostic Code: SIGNIFICANT ABNORMALITY, ATTN NEEDED Primary Interpreting Staff: JEB SANTOS MD, CARDIOLOGY ATTENDING Verified by tonal regulator for JEB SANTOS MD /JEB MANCILLA-CDD [facility] December 14, 2024 07:49 AM TC-99M X1 FROM NON -HEU SOURCE: ROBBIE GERMAIN [id number] -1940 M [facility] Date: DECEMBER 14, 2024@07:49 Req Phys: DALIA BRIGGS [facility] (Req'g Loc) [facility] [place]: NUCLEAR MEDICINE Service: [place] [address] (Case [id number] COMPLETE)TC-99M X1 FROM NON-HEU SOURCE (NM Detailed) [...] 14, 2024 Date Verified: DECEMBER 14, 2024 Travel Physical Therapist E-Sig: Report: [facility], [place] STUDY: Regadenoson (Lexiscan) SPECT [...] performed with tomographic and three-dimensional reconstructions with RallyOn NM/CT 640 system. Exercise: Patient exercised for [...] data sets in addition to the conventional nwy-znkcboazdll-klfuyysnp images. Both filtered back projection and iterative [...] ventricular cavity. 4. SPECT images: Attenuation-corrected and ewx-gziucutmvfj-bsdiytlgx SPECT images were evaluated. SPECT images demonstrate [...] JEB SANTOS MD, CARDIOLOGY ATTENDING Verified by tonal regulator for JEB SANTOS MD /JEB MANCILLA-CDD [facility] December 14, 2024 07:49 AM [id number] REGADENOSON 0.1MG X2 (LEXISCAN): VELAT,ROBBIE BENEDIC [id number] 1940 M Exm Date: DECEMBER 14, 2024@07:49 Req Phys: JORDYNDALIA Raul Mora Loc: VETO PACT WHITNEY 16-1 (Req'g Loc) Img Loc: NUCLEAR MEDICINE Service: [place] [address] (Case [id number] COMPLETE)[id number] REGADENOSON 0.1MG X2 (STEPHON(NM Detailed) CPT:J2785 [...] 14, 2024 Date Verified: DECEMBER 14, 2024 Travel Physical Therapist E-Sig: Report: [facility] [place] STUDY: Regadenoson (Lexiscan) SPECT [...] performed with tomographic and three-dimensional reconstructions with RallyOn NM/CT 640 system. Exercise: Patient exercised for [...] data sets in addition to the conventional wna-aetdgxsyrzn-vnwbpeohr images. Both filtered back projection and iterative [...] ventricular cavity. 4. SPECT images: Attenuation-corrected and oac-dgnnidwcpnt-ifbvltbtn SPECT images were evaluated. SPECT images demonstrate [...] JEB SANTOS MD, CARDIOLOGY ATTENDING Verified by tonal regulator for JEB SANTOS MD /JEB MANCILLA-CDD [facility] December 14, 2024 07:49 AM [id number] REGADENOSON 0.1MG X3 (LEXISCAN): ROBBIE GERMAIN MICA [id number] -1940 M Exm Date: DECEMBER 14, 2024@07:49 Req Phys: DALIA BRIGGS Pat Loc: VETO PACT WHITNEY 16-1 (Req'g Loc) Img Loc: NUCLEAR MEDICINE Service: [place] [address] (Case [id number] COMPLETE)[id number] REGADENOSON 0.1MG X3 (STEPHON(NM Detailed) CPT:J2785 [...] 14, 2024 Date Verified: DECEMBER 14, 2024 Travel Physical Therapist E-Sig: Report: [facility] [place] STUDY: Regadenoson (Lexiscan) SPECT [...] performed with tomographic and three-dimensional reconstructions with RallyOn NM/CT 640 system. Exercise: Patient exercised for [...] data sets in addition to the conventional vgl-ojfieposjqr-dgktfncqh images. Both filtered back projection and iterative [...] ventricular cavity. 4. SPECT images: Attenuation-corrected and emk-kxwihvnmkjh-iefwhgonr SPECT images were evaluated. SPECT images demonstrate [...] JEB SANTOS MD, CARDIOLOGY ATTENDING Verified by tonal regulator for JEB SANTOS MD /JEB MANCILLA-D [facility] December 14, 2024 07:49 AM TC-99M X2 FROM NON -HEU SOURCE: REINAROBBIE [id number] -1940 M Ex Date: DECEMBER 14, 2024@07:49 Req Phys: DALIA BRIGGS [facility] [place]: NUCLEAR MEDICINE Service: [place] [address] (Case [id number] COMPLETE)TC-99M X2 FROM NON-HEU SOURCE (NM Detailed) CPT:Q9969 Reason for Study: SEE CLINICAL HISTORY Clinical History: Cardiology approval by: [facility] SERVICE CONNECTED? No Active Outpatient Medications (including [...] 14, 2024 Date Verified: DECEMBER 14, 2024 Travel Physical Therapist E-Sig: Report: [facility] [place] STUDY: Regadenoson (Lexiscan) SPECT [...] performed with tomographic and three-dimensional reconstructions with RallyOn NM/CT 640 system. Exercise: Patient exercised for [...] data sets in addition to the conventional ppr-szvjdevmuaw-fwmpqgoew images. Both filtered back projection and iterative [...] ventricular cavity. 4. SPECT images: Attenuation-corrected and sbq-enmwgkgeeai-evxllcjjw SPECT images were evaluated. SPECT images demonstrate [...] JEB SANTOS MD, CARDIOLOGY ATTENDING Verified by tonal regulator for JEB SANTOS MD /JEB MANCILLA-CDD [facility] Encounter Notes: All associated encounter notes This section contains the clinical notes associated to the Encounter. Date/Time Encounter Note(s) Provider Source Jan 11, 2025 11:29 AM ADDENDUM: LOCAL TITLE: Addendum STANDARD TITLE: ADDENDUM DATE OF NOTE: JAN 11, 2025@11:29:10 ENTRY DATE: JAN 11, 2025@11:29:11 AUTHOR: DALIA BRIGGS EXP COSIGNER: URGENCY: STATUS: COMPLETED labwork with renal function worsened by daily lasix. Would consider change to PRN based on wt/symptoms. Defer to cardiology/renal /es/ Dalia Briggs MD Primary Care Attending Signed: 01/11/2025 11:31 Receipt Acknowledged By: 01/11/2025 12:25 /es/ Kami Norris PharmD, [facility] Clinical Blast Furnace Keeper - Cardiology --- Original Document --- 12/31/24 DISCHARGE DAY PROGRESS NOTE: THE PERSON RESPONSIBLE FOR DICTATING/ENTERING THE DISCHARGE SUMMARY ON THIS PATIENT IS: Kevin Hoffman, MS4 FINAL DIAGNOSES: Heart failure with reduced ejection fraction exacerbation. PROCEDURES: No procedures during admission. UPCOMING OUTPATIENT APPOINTMENTS: Future Appointments: 01/04/2025 13:30 [facility] INPATIENT APPOINTMENT 01/31/2025 15:00 VETO MED CARD FELLOW 22 INPATIENT APPOINTMENT 02/05/2025 13:00 VETO MED PFT CDD INPATIENT APPOINTMENT 02/05/2025 14:00 [facility]O MED PULM ILD INPATIENT APPOINTMENT 08/27/2025 09:30 VETO MED RHEUM ATT1 LD INPATIENT APPOINTMENT PLAN FOR FOLLOW UP: 1.) Follow-up with outpatient cardiology in 1-2 weeks, 2.) follow-up with PCP within 2-3 weeks to make PCP aware of recent hospitalization. PENDING DIAGNOSTIC TESTING AT DISCHARGE: None. DIET: Heart Failure (Low Sodium) ACTIVITY: No restrictions. WOUND CARE (Includes Pressure Ulcers): None. SUBJECTIVE: Patient states he feels well today and is breathing good . He feels that he is back at his baseline and has not had any issues ambulating. He states his LE edema has gone down significantly since yesterday. He denies N/V; states he has not had a BM since arrival. Patient and family both state they are amenable to discharge today. DISCHARGE EXAM: General: alert, awake, in NAD. CV: normal S1 and S2; no murmurs, rubs, or gallops. Pulm: lungs clear to auscultation bilaterally. No increased work of breathing. Abd: bowel sounds present; abdomen soft, nondistended, nontender to palpation. Ext: Bilateral 1+ pitting edema present; 2+ radial and posterior tibialis pulses. Skin: no noted rashes, bruises, bleeding. MSK: no joint swelling or deformity. Neuro: CN II-XII grossly intact, AAO x4. No focal deficits. Moves all extremities Psych: affect and thought content appropriate. VITALS: BP: 116/69 (12/31/2024 11:10) Pulse: 56 (12/31/2024 11:10) Wt: 179.1 lb [81.24 kg] (12/31/2024 10:59) LAB DATA: Test Name Result Units Range --------- ------ ----- ----- SODIUM 138 mmol/L 136 - 145 POTASSIUM 4.4 mmol/L 3.5 - 5.1 CHLORIDE 105 mmol/L 98 - 107 CO2 25 mmol/L 22 - 29 ANION GAP 8.0 mEq/L 3 - 19 GLUCOSE 94 mg/dL 74 - 100 UREA NITROGEN 31 H mg/dL 9 - 25 CREATININE 2.04 H mg/dL 0.72 - 1.25 eGFR (CKD-EPI) 32 SEE EVAL CALCIUM 8.9 mg/dL 8.4 - 10.2 WBC 8.2 K/cmm 5.0 - 10.0 RBC 4.03 L M/cmm 4.6 - 6.2 HGB 12.0 L g/dL 14.0 - 18.0 HCT 37.2 L % 42.0 - 52.0 MCV 92.3 fL 80.0 - 94.0 MCH 29.8 pg 27.0 - 31.0 MCHC 32.3 g/dL 32.0 - 36.0 RDW 13.8 % 11.0 - 16.0 PLT 191 K/cmm 150 - 450 MPV 10.5 fL 9.0 - 13.1 NRBC 0.0 % 0.0 - 0.0 MEDICATION ADJUSTMENTS AND REASON: 1. Plavix initially held on 12/30 due to concern for STEMI given chest pain on presentation. Will resume upon discharge. 2. Will resume Amoxicillin that patient had been taking after recent dental procedure. NEW MEDICATIONS AND REASON: 1. Start metoprolol succinate 25 mg daily per cardiology rec's for heart failure 2. Start Lasix 40 mg PO daily for diuresis. See Outpatient Medications at Discharge note for complete list of medications. Deidre Madsen MD PGY-1, Physical Medicine & Rehabilitation /jack/ DEIDRE MADSEN Signed: 12/31/2024 13:31 /es/ BARTOLO EDMONDSON Attending Physician Cosigned: 01/01/2025 08:55 Receipt Acknowledged By: 01/01/2025 08:12 /es/ Dalia Briggs MD Primary Care Attending 01/01/2025 08:10 /es/ YULIET PAYNE peer support specialist 01/01/2025 ADDENDUM STATUS: COMPLETED pt doesn't need PC f/u other than BP check and p1 within 2 weeks. /jack/ Dalia Briggs MD Primary Care Attending Signed: 01/01/2025 08:12 Receipt Acknowledged By: 01/08/2025 13:01 /es/ TYLER PETERS Advanced Electric Solderer 01/01/2025 09:27 /es/ JAIME VASQUEZN, RN PC STUDENT COUNSELOR 01/01/2025 ADDENDUM STATUS: COMPLETED Forwarding above to cardiology CM as this entry writer no longer works in cardiology department. /es/ YULIET PAYNE peer support specialist Signed: 01/01/2025 08:11 /es/ BARTOLO EDMONDSON Attending Physician Cosigned: 01/01/2025 08:56 Receipt Acknowledged By: 01/01/2025 19:25 /es/ Lita VICENTE RN 2W OPC Talent Program Manager Nurse Harbor Boat Pilot 01/08/2025 ADDENDUM STATUS: COMPLETED Talked to Mr. Forte Going out of town on January 14. Wanted to come on the at 9:00 to get Bp check and labs. /es/ TYLER PETERS [employer] Solderer Signed: 01/08/2025 13:15 Receipt Acknowledged By: 01/08/2025 14:55 /es/ JAIME VICENTE, RN PC STUDENT COUNSELORMEALS ON WHEELS DRIVERDALIA BRIGGS-[facility] Jan 08, 2025 01:14 PM ADDENDUM: LOCAL TITLE: Addendum STANDARD TITLE: ADDENDUM DATE OF NOTE: JAN 08, 2025@13:14:36 ENTRY DATE: JAN 08, 2025@13:14:37 AUTHOR: TYLER PETERS COSIGNER: URGENCY: STATUS: COMPLETED Talked to Mr. Forte Going out of town on January 14. Wanted to come on the at 9:00 to get Bp check and labs. /jack/ TYLER PETERS [employer] Solderer Signed: 01/08/2025 13:15 Receipt Acknowledged By: 01/08/2025 14:55 /jack/ JAIME VICENTE, RN PC STUDENT COUNSELOR --- Original Document --- 12/31/24 DISCHARGE DAY PROGRESS NOTE: THE PERSON RESPONSIBLE FOR DICTATING/ENTERING THE DISCHARGE SUMMARY ON THIS PATIENT IS: Kevin Yasmin, MS4 FINAL DIAGNOSES: Heart failure with reduced ejection fraction exacerbation. PROCEDURES: No procedures during admission. UPCOMING OUTPATIENT APPOINTMENTS: Future Appointments: 01/04/2025 13:30 [facility] INPATIENT APPOINTMENT 01/31/2025 15:00 [facility] MED CARD FELLOW 22 INPATIENT APPOINTMENT 02/05/2025 13:00 [facility]O MED PFT CDD INPATIENT APPOINTMENT 02/05/2025 14:00 [facility] MED PULM ILD INPATIENT APPOINTMENT 08/27/2025 09:30 VETO MED RHEUM ATT1 LD INPATIENT APPOINTMENT PLAN FOR FOLLOW UP: 1.) Follow-up with outpatient cardiology in 1-2 weeks, 2.) follow-up with PCP within 2-3 weeks to make PCP aware of recent hospitalization. PENDING DIAGNOSTIC TESTING AT DISCHARGE: None. DIET: Heart Failure (Low Sodium) ACTIVITY: No restrictions. WOUND CARE (Includes Pressure Ulcers): None. SUBJECTIVE: Patient states he feels well today and is breathing good . He feels that he is back at his baseline and has not had any issues ambulating. He states his LE edema has gone down significantly since yesterday. He denies N/V; states he has not had a BM since arrival. Patient and family both state they are amenable to discharge today. DISCHARGE EXAM: General: alert, awake, in NAD. CV: normal S1 and S2; no murmurs, rubs, or gallops. Pulm: lungs clear to auscultation bilaterally. No increased work of breathing. Abd: bowel sounds present; abdomen soft, nondistended, nontender to palpation. Ext: Bilateral 1+ pitting edema present; 2+ radial and posterior tibialis pulses. Skin: no noted rashes, bruises, bleeding. MSK: no joint swelling or deformity. Neuro: CN II-XII grossly intact, AAO x4. No focal deficits. Moves all extremities Psych: affect and thought content appropriate. VITALS: BP: 116/69 (12/31/2024 11:10) Pulse: 56 (12/31/2024 11:10) Wt: 179.1 lb [81.24 kg] (12/31/2024 10:59) LAB DATA: Test Name Result Units Range --------- ------ ----- ----- SODIUM 138 mmol/L 136 - 145 POTASSIUM 4.4 mmol/L 3.5 - 5.1 CHLORIDE 105 mmol/L 98 - 107 CO2 25 mmol/L 22 - 29 ANION GAP 8.0 mEq/L 3 - 19 GLUCOSE 94 mg/dL 74 - 100 UREA NITROGEN 31 H mg/dL 9 - 25 CREATININE 2.04 H mg/dL 0.72 - 1.25 eGFR (CKD-EPI) 32 SEE EVAL CALCIUM 8.9 mg/dL 8.4 - 10.2 WBC 8.2 K/cmm 5.0 - 10.0 RBC 4.03 L M/cmm 4.6 - 6.2 HGB 12.0 L g/dL 14.0 - 18.0 HCT 37.2 L % 42.0 - 52.0 MCV 92.3 fL 80.0 - 94.0 MCH 29.8 pg 27.0 - 31.0 MCHC 32.3 g/dL 32.0 - 36.0 RDW 13.8 % 11.0 - 16.0 PLT 191 K/cmm 150 - 450 MPV 10.5 fL 9.0 - 13.1 NRBC 0.0 % 0.0 - 0.0 MEDICATION ADJUSTMENTS AND REASON: 1. Plavix initially held on 12/30 due to concern for STEMI given chest pain on presentation. Will resume upon discharge. 2. Will resume Amoxicillin that patient had been taking after recent dental procedure. NEW MEDICATIONS AND REASON: 1. Start metoprolol succinate 25 mg daily per cardiology rec's for heart failure 2. Start Lasix 40 mg PO daily for diuresis. See Outpatient Medications at Discharge note for complete list of medications. Deidre Madsen MD PGY-1, Physical Medicine & Rehabilitation /es/ DEIDRE MADSEN Signed: 12/31/2024 13:31 /jack/ BAROTLO EDMONDSON Attending Physician Cosigned: 01/01/2025 08:55 Receipt Acknowledged By: 01/01/2025 08:12 /jack/ Dalia Briggs MD Primary Care Attending 01/01/2025 08:10 /es/ YULIET PAYNE peer support specialist 01/01/2025 ADDENDUM STATUS: COMPLETED pt doesn't need PC f/u other than BP check and p1 within 2 weeks. /es/ Dalia Briggs MD Primary Care Attending Signed: 01/01/2025 08:12 Receipt Acknowledged By: 01/08/2025 13:01 /es/ TYLER PETERS Advanced Electric Solderer 01/01/2025 09:27 /es/ JAIME VICENTE, RN PC STUDENT COUNSELOR 01/01/2025 ADDENDUM STATUS: COMPLETED Forwarding above to cardiology CM as this entry writer no longer works in cardiology department. /jack/ YULIET PAYNE peer support specialist Signed: 01/01/2025 08:11 /es/ BARTOLO EDMONDSON Attending Physician Cosigned: 01/01/2025 08:56 Receipt Acknowledged By: 01/01/2025 19:25 /es/ Lita VICENTE RN 2W OPC Talent Program Manager Nurse Harbor Boat Pilot TYLER PETERS-CDD [facility] Jan 02, 2025 10:42 PM ADDENDUM: LOCAL TITLE: Addendum STANDARD TITLE: ADDENDUM DATE OF NOTE: JAN 02, 2025@22:42:47 ENTRY DATE: JAN 02, 2025@22:42:48 AUTHOR: LALO KUHN COSIGNER: URGENCY: STATUS: COMPLETED Forwarding to Cardiology PharmD for potential follow-up post discharge. /earline KUHN PHARMD, BCACP, CDE CLINICAL CASING SEWER Signed: 01/03/2025 10:32 Receipt Acknowledged By: 01/03/2025 16:53 /jack/ Kami Norris PharmD, BCPS Clinical Blast Furnace Keeper - Cardiology --- Original Document --- 01/02/25 DISCHARGE PLANNING DAILY NOTE: FINAL DIAGNOSES: Heart failure with reduced ejection fraction exacerbation. PROCEDURES: No procedures during admission. UPCOMING OUTPATIENT APPOINTMENTS: Future Appointments: 01/04/2025 13:30 [facility] IN[facility]IENT APPOINTMENT 01/31/2025 15:00 [facility] 22 INPATIENT APPOINTMENT 02/05/2025 13:00 [facility] CDD INPATIENT APPOINTMENT 02/05/2025 14:00 [facility] P[facility] ILD INPATIENT APPOINTMENT 08/27/2025 09:30 [facility] RHEUM ATT1 LD INPATIENT APPOINTMENT PLAN FOR FOLLOW UP: 1.) Follow-up with outpatient cardiology in 1-2 weeks, 2.) follow-up with PCP within 2-3 weeks to make PCP aware of recent hospitalization. PENDING DIAGNOSTIC TESTING AT DISCHARGE: None. DIET: Heart Failure (Low Sodium) ACTIVITY: No restrictions. WOUND CARE (Includes Pressure Ulcers): None. /jack/ Yuliet Patel Inpatient Boiler Water Tester Staff Registered Nurse Signed: 01/02/2025 15:20 Receipt Acknowledged By: 01/02/2025 22:39 /jack/ LALO KUHN PHARMD, BCACP, CDE CLINICAL CASING SEWER LALO KUHN-CDD [facility] Jan 02, 2025 03:20 PM NURSING DISCHARGE PLAN: LOCAL TITLE: DISCHARGE PLANNING DAILY NOTE STANDARD TITLE: NURSING DISCHARGE PLAN DATE OF NOTE: JAN 02, 2025@15:20 ENTRY DATE: JAN 02, 2025@15:20:23 AUTHOR: YULIET PATEL COSIGNER: URGENCY: STATUS: COMPLETED DISCHARGE PLANNING DAILY NOTE Has ADDENDA FINAL DIAGNOSES: Heart failure with reduced ejection fraction exacerbation. PROCEDURES: No procedures during admission. UPCOMING OUTPATIENT APPOINTMENTS: Future Appointments: 01/04/2025 13:30 [facility] INPATIENT APPOINTMENT 01/31/2025 15:00 [facility] FELLOW 22 INPATIENT APPOINTMENT 02/05/2025 13:00 [facility] PFT CDD INPATIENT APPOINTMENT 02/05/2025 14:00 [facility] ILD INPATIENT APPOINTMENT 08/27/2025 09:30 [facility] ATT1 LD INPATIENT APPOINTMENT PLAN FOR FOLLOW UP: 1.) Follow-up with outpatient cardiology in 1-2 weeks, 2.) follow-up with PCP within 2-3 weeks to make PCP aware of recent hospitalization. PENDING DIAGNOSTIC TESTING AT DISCHARGE: None. DIET: Heart Failure (Low Sodium) ACTIVITY: No restrictions. WOUND CARE (Includes Pressure Ulcers): None. /earline Patel Inpatient Boiler Water Tester Staff Registered Nurse Signed: 01/02/2025 15:20 Receipt Acknowledged By: 01/02/2025 22:39 /jack/ LALO LOWD, KEY[place], [place] CLINICAL CASING SEWER 01/02/2025 ADDENDUM STATUS: COMPLETED Forwarding to Cardiology PharmD for potential follow-up post discharge. /earline KUHN PHARMD, KEYON[place], [place] CLINICAL CASING SEWER Signed: 01/03/2025 10:32 Receipt Acknowledged By: * AWAITING SIGNATURE * KAMI NORRIS,YULIET BOOKER-[place] [facility] Jan 01, 2025 08:11 AM ADDENDUM: LOCAL TITLE: Addendum STANDARD TITLE: ADDENDUM DATE OF NOTE: JAN 01, 2025@08:11 ENTRY DATE: JAN 01, 2025@08:11:10 AUTHOR: YULIET PAYNE COSIGNER: BARTOLO EDMONDSON URGENCY: STATUS: COMPLETED Forwarding above to cardiology CM as this entry writer no longer works in cardiology department. /jack/ YULIET PAYNE peer support specialist Signed: 01/01/2025 08:11 /earline EDMONDSON Attending Physician Cosigned: 01/01/2025 08:56 Receipt Acknowledged By: 01/01/2025 19:25 /jack/ Lita VICENTE RN 2W OPC Talent Program Manager Nurse Harbor Boat Pilot --- Original Document --- 12/31/24 DISCHARGE DAY PROGRESS NOTE: THE PERSON RESPONSIBLE FOR DICTATING/ENTERING THE DISCHARGE SUMMARY ON THIS PATIENT IS: Kevin Yasmin, MS4 FINAL DIAGNOSES: Heart failure with reduced ejection fraction exacerbation. PROCEDURES: No procedures during admission. UPCOMING OUTPATIENT APPOINTMENTS: Future Appointments: 01/04/2025 13:30 [facility] INPATIENT APPOINTMENT 01/31/2025 15:00 [facility] 22 INPATIENT APPOINTMENT 02/05/2025 13:00 [facility] PFT CDD INPATIENT APPOINTMENT 02/05/2025 14:00 [facility] PULM ILD INPATIENT APPOINTMENT 08/27/2025 09:30 [facility] RHEUM ATT1 LD INPATIENT APPOINTMENT PLAN FOR FOLLOW UP: 1.) Follow-up with outpatient cardiology in 1-2 weeks, 2.) follow-up with PCP within 2-3 weeks to make PCP aware of recent hospitalization. PENDING DIAGNOSTIC TESTING AT DISCHARGE: None. DIET: Heart Failure (Low Sodium) ACTIVITY: No restrictions. WOUND CARE (Includes Pressure Ulcers): None. SUBJECTIVE: Patient states he feels well today and is breathing good . He feels that he is back at his baseline and has not had any issues ambulating. He states his LE edema has gone down significantly since yesterday. He denies N/V; states he has not had a BM since arrival. Patient and family both state they are amenable to discharge today. DISCHARGE EXAM: General: alert, awake, in NAD. CV: normal S1 and S2; no murmurs, rubs, or gallops. Pulm: lungs clear to auscultation bilaterally. No increased work of breathing. Abd: bowel sounds present; abdomen soft, nondistended, nontender to palpation. Ext: Bilateral 1+ pitting edema present; 2+ radial and posterior tibialis pulses. Skin: no noted rashes, bruises, bleeding. MSK: no joint swelling or deformity. Neuro: CN II-XII grossly intact, AAO x4. No focal deficits. Moves all extremities Psych: affect and thought content appropriate. VITALS: BP: 116/69 (12/31/2024 11:10) Pulse: 56 (12/31/2024 11:10) Wt: 179.1 lb [81.24 kg] (12/31/2024 10:59) LAB DATA: Test Name Result Units Range --------- ------ ----- ----- SODIUM 138 mmol/L 136 - 145 POTASSIUM 4.4 mmol/L 3.5 - 5.1 CHLORIDE 105 mmol/L 98 - 107 CO2 25 mmol/L 22 - 29 ANION GAP 8.0 mEq/L 3 - 19 GLUCOSE 94 mg/dL 74 - 100 UREA NITROGEN 31 H mg/dL 9 - 25 CREATININE 2.04 H mg/dL 0.72 - 1.25 eGFR (CKD-EPI) 32 SEE EVAL CALCIUM 8.9 mg/dL 8.4 - 10.2 WBC 8.2 K/cmm 5.0 - 10.0 RBC 4.03 L M/cmm 4.6 - 6.2 HGB 12.0 L g/dL 14.0 - 18.0 HCT 37.2 L % 42.0 - 52.0 MCV 92.3 fL 80.0 - 94.0 MCH 29.8 pg 27.0 - 31.0 MCHC 32.3 g/dL 32.0 - 36.0 RDW 13.8 % 11.0 - 16.0 PLT 191 K/cmm 150 - 450 MPV 10.5 fL 9.0 - 13.1 NRBC 0.0 % 0.0 - 0.0 MEDICATION ADJUSTMENTS AND REASON: 1. Plavix initially held on 12/30 due to concern for STEMI given chest pain on presentation. Will resume upon discharge. 2. Will resume Amoxicillin that patient had been taking after recent dental procedure. NEW MEDICATIONS AND REASON: 1. Start metoprolol succinate 25 mg daily per cardiology rec's for heart failure 2. Start Lasix 40 mg PO daily for diuresis. See Outpatient Medications at Discharge note for complete list of medications. Deidre Madsen MD PGY-1, Physical Medicine & Rehabilitation /es/ DEIDRE MADSEN Signed: 12/31/2024 13:31 /jack/ BARTOLO EDMONDSON Attending Physician Cosigned: 01/01/2025 08:55 Receipt Acknowledged By: 01/01/2025 08:12 /jack/ Dalia Briggs MD Primary Care Attending 01/01/2025 08:10 /jack/ YULIET PAYNE peer support specialist 01/01/2025 ADDENDUM STATUS: COMPLETED pt doesn't need PC f/u other than BP check and p1 within 2 weeks. /jack/ Dalia Briggs MD Primary Care Attending Signed: 01/01/2025 08:12 Receipt Acknowledged By: * AWAITING SIGNATURE * TYLER PETERS 01/01/2025 09:27 /jack/ JAIME VICENTE, RN PC STUDENT COUNSELOR YULIET [facility]NE[facility] Jan 01, 2025 08:10 AM ADDENDUM: LOCAL TITLE: Addendum STANDARD TITLE: ADDENDUM DATE OF NOTE: JAN 01, 2025@08:10:58 ENTRY DATE: JAN 01, 2025@08:10:59 AUTHOR: DALIA BRIGGS COSIGNER: URGENCY: STATUS: COMPLETED pt doesn't need PC f/u other than BP check and p1 within 2 weeks. /earline Briggs MD Primary Care Attending Signed: 01/01/2025 08:12 Receipt Acknowledged By: 01/08/2025 13:01 /jack/ TYLER PETERS Advanced Electric Solderer 01/01/2025 09:27 /jack/ JAIME VICENTE, RN PC STUDENT COUNSELOR --- Original Document --- 12/31/24 DISCHARGE DAY PROGRESS NOTE: THE PERSON RESPONSIBLE FOR DICTATING/ENTERING THE DISCHARGE SUMMARY ON THIS PATIENT IS: Kevin Hoffman, MS4 FINAL DIAGNOSES: Heart failure with reduced ejection fraction exacerbation. PROCEDURES: No procedures during admission. UPCOMING OUTPATIENT APPOINTMENTS: Future Appointments: 01/04/2025 13:30 [facility] INPATIENT APPOINTMENT 01/31/2025 15:00 [facility] FELLOW 22 INPATIENT APPOINTMENT 02/05/2025 13:00 [facility] PFT CDD INPATIENT APPOINTMENT 02/05/2025 14:00 [facility] PULM ILD INPATIENT APPOINTMENT 08/27/2025 09:30 [facility] RHEUM ATT1 LD INPATIENT APPOINTMENT PLAN FOR FOLLOW UP: 1.) Follow-up with outpatient cardiology in 1-2 weeks, 2.) follow-up with PCP within 2-3 weeks to make PCP aware of recent hospitalization. PENDING DIAGNOSTIC TESTING AT DISCHARGE: None. DIET: Heart Failure (Low Sodium) ACTIVITY: No restrictions. WOUND CARE (Includes Pressure Ulcers): None. SUBJECTIVE: Patient states he feels well today and is breathing good . He feels that he is back at his baseline and has not had any issues ambulating. He states his LE edema has gone down significantly since yesterday. He denies N/V; states he has not had a BM since arrival. Patient and family both state they are amenable to discharge today. DISCHARGE EXAM: General: alert, awake, in NAD. CV: normal S1 and S2; no murmurs, rubs, or gallops. Pulm: lungs clear to auscultation bilaterally. No increased work of breathing. Abd: bowel sounds present; abdomen soft, nondistended, nontender to palpation. Ext: Bilateral 1+ pitting edema present; 2+ radial and posterior tibialis pulses. Skin: no noted rashes, bruises, bleeding. MSK: no joint swelling or deformity. Neuro: CN II-XII grossly intact, AAO x4. No focal deficits. Moves all extremities Psych: affect and thought content appropriate. VITALS: BP: 116/69 (12/31/2024 11:10) Pulse: 56 (12/31/2024 11:10) Wt: 179.1 lb [81.24 kg] (12/31/2024 10:59) LAB DATA: Test Name Result Units Range --------- ------ ----- ----- SODIUM 138 mmol/L 136 - 145 POTASSIUM 4.4 mmol/L 3.5 - 5.1 CHLORIDE 105 mmol/L 98 - 107 CO2 25 mmol/L 22 - 29 ANION GAP 8.0 mEq/L 3 - 19 GLUCOSE 94 mg/dL 74 - 100 UREA NITROGEN 31 H mg/dL 9 - 25 CREATININE 2.04 H mg/dL 0.72 - 1.25 eGFR (CKD-EPI) 32 SEE EVAL CALCIUM 8.9 mg/dL 8.4 - 10.2 WBC 8.2 K/cmm 5.0 - 10.0 RBC 4.03 L M/cmm 4.6 - 6.2 HGB 12.0 L g/dL 14.0 - 18.0 HCT 37.2 L % 42.0 - 52.0 MCV 92.3 fL 80.0 - 94.0 MCH 29.8 pg 27.0 - 31.0 MCHC 32.3 g/dL 32.0 - 36.0 RDW 13.8 % 11.0 - 16.0 PLT 191 K/cmm 150 - 450 MPV 10.5 fL 9.0 - 13.1 NRBC 0.0 % 0.0 - 0.0 MEDICATION ADJUSTMENTS AND REASON: 1. Plavix initially held on 12/30 due to concern for STEMI given chest pain on presentation. Will resume upon discharge. 2. Will resume Amoxicillin that patient had been taking after recent dental procedure. NEW MEDICATIONS AND REASON: 1. Start metoprolol succinate 25 mg daily per cardiology rec's for heart failure 2. Start Lasix 40 mg PO daily for diuresis. See Outpatient Medications at Discharge note for complete list of medications. Deidre Madsen MD PGY-1, Physical Medicine & Rehabilitation /jack/ DEIDRE MADSEN Signed: 12/31/2024 13:31 /jack/ BARTOLO EDMONDSON Attending Physician Cosigned: 01/01/2025 08:55 Receipt Acknowledged By: 01/01/2025 08:12 /jack/ Dalia Briggs MD Primary Care Attending 01/01/2025 08:10 /jack/ YULIET PAYNE peer support specialist 01/01/2025 ADDENDUM STATUS: COMPLETED Forwarding above to cardiology CM as this entry writer no longer works in cardiology department. /jack/ YULIET PAYNE peer support specialist Signed: 01/01/2025 08:11 /jack/ BARTOLO EDMONDSON Attending Physician Cosigned: 01/01/2025 08:56 Receipt Acknowledged By: 01/01/2025 19:25 /jack/ Lita VASQUEZN RN 2W OPC Talent Program Manager Nurse electrical engineering technologistDALIA BRIGGSBina [facility] Dec 31, 2024 03:30 PM NURSING DISCHARGE NOTE: LOCAL TITLE: NURSING DISCHARGE NOTE STANDARD TITLE: NURSING DISCHARGE NOTE DATE OF NOTE: DEC 31, 2024@15:30 ENTRY DATE: DEC 31, 2024@15:30:27 AUTHOR: JG WALLER EXP COSIGNER: URGENCY: STATUS: COMPLETED Health status at discharge remains unchanged from last reassessment. Vital signs within the last 30 minutes of patient leaving the floor: Temp: 98.2 Pulse: 56 Resp: 18 B/P: 116/69 O2: 94% N/A discharge Have the patient's belongings been given to the patient or family member? Yes Time patient left:1500 Patient refuses to have patient wristband removed at discharge. Patient left:Wheelchair Patient left with:Family /jack/ Jg VASQUEZ retail account executive RN Signed: 12/31/2024 15:31 JG WALLERBina [facility] Dec 31, 2024 02:58 PM DISCHARGE SUMMARY: LOCAL TITLE: Discharge Summary STANDARD TITLE: DISCHARGE SUMMARY DICT DATE: JAN 01, 2025@11:19 ENTRY DATE: JAN 01, 2025@11:19:17 DICTATED BY: DEIDRE MADSEN ATTENDING: BARTOLO EDMONDSON URGENCY: routine STATUS: COMPLETED Admit: Dec Discharge: Dec Attending: Dr. Bartolo Edmondson Discharge Diagnosis: HFrEF Exacerbation Problem List: Active problems - Computerized Problem List is the source for the followin. Long-term current use of antiplatelet drug 2. History of calculus of kidney 3. Exudative age-related macular degeneration 4. Chronic kidney disease stage 4 5. Anemia 6. Chronic kidney disease stage 4 due to type 2 diabetes mellitus 7. History of cholecystectomy 8. Overweight 9. Hearing loss (SNOMED CT 52837582) 10. Benign hypertensive renal disease 11. Allergic rhinitis (SNOMED CT 44488795) 12. History of rheumatic fever at age 6 13. Family h/o Cancer of GI Tract 14. Coronary artery disease (SNOMED CT 32438997) s/p PR 05/26 (stents) CHF (EF 40-45%) on ECHO 07/03/07 no reversible defect on stress test 05/31 15. Pure hypercholesterolemia Medications: BEGIN 'OUTPATIENT MEDICATIONS AT DISCHARGE' FROM 12/31/24 13:39 ENTERED BY: YENNY OHUSE The following are current [facility] outpatient medications for Mr. ROBBIE GERMAIN at the time of hospital discharge. (This list includes ACTIVE, PENDING, HOLD, and NON-VA medications.) Non-VA AMLODIPINE BESYLATE 10MG TAB 10MG MOUTH DAILY ACTIVE # Refills: Quantity: Issue Date: Provider: Non-VA AMOXICILLIN 500MG CAP 500MG MOUTH THREE TIMES A DAY ACTIVE # Refills: Quantity: Issue Date: Provider: Non-VA CHOLECALCIF 25MCG (D3-1,000UNIT) TAB 1000UNIT MOUTH ACTIVE DAILY # Refills: Quantity: Issue Date: Provider: Non-VA CLOPIDOGREL BISULFATE 75MG TAB 75MG MOUTH DAILY ACTIVE # Refills: Quantity: Issue Date: Provider: Non-VA CYANOCOBALAMIN 1000MCG TAB 1000MCG MOUTH DAILY ACTIVE # Refills: Quantity: Issue Date: Provider: EMPAGLIFLOZIN 10MG TAB TAKE ONE TABLET BY MOUTH EVERY ACTIVE MORNING PROTEINURIA # Refills: 1 Quantity: 90 Issue Date: December 05, 2024 Provider: DALIA BRIGGS FUROSEMIDE 40MG TAB TAKE ONE TABLET BY MOUTH DAILY FOR ACTIVE FLUID- TAKE IN THE MORNING # Refills: 2 Quantity: 90 Issue Date: Dec 31, 2024 Provider: DEIDRE MADSEN Non-VA LEVOCETIRIZINE DIHYDROCHLORIDE 5MG TAB 5MG MOUTH ACTIVE DAILY # Refills: Quantity: Issue Date: Provider: METOPROLOL SUCCINATE 25MG SA TAB TAKE ONE TABLET BY MOUTH ACTIVE DAILY FOR HEART FAILURE # Refills: 2 Quantity: 90 Issue Date: Dec 31, 2024 Provider: DEIDRE MADSEN Non-VA MULTIVIT/OPHTH AREDS2/LUTE/ZEAX CAP/TAB 1 SOFTGEL ACTIVE MOUTH TWICE A DAY AFTER MEALS # Refills: Quantity: Issue Date: Provider: Non-VA ROSUVASTATIN TAB 10MG MOUTH DAILY ACTIVE # Refills: Quantity: Issue Date: Provider: REMOTE OUTPATIENT MEDICATIONS: The following are active REMOTE medications dispensed from other [place] Medical Facilities for Mr. ROBBIE GERMAIN. No Active Remote Medications for this patient END 'OUTPATIENT MEDICATIONS AT DISCHARGE' FROM 12/31/24 13:39 Hospital Course: Robbie Germain is an 84-year-old male with PMH significant for CKD4, HTN, HLD, undifferentiated ILD, CAD s/p PCI to RCA in 2001 after a cardiac arrest, and HFrEF who presented as a transfer from OSH on 12/30 due to chest pain, SOB, and LE edema. Patient initially presented to OSH with 8/10 chest pain with radiation to his right arm that improved with nitroglycerin and morphine; reportedly, he had a normal EKG, negative troponin, and BNP 1800 at OSH. Upon arrival to , label designer was initially alerted due to concern for possible STEMI given chest pain, however patient had negative troponins and an EKG demonstrating a stable right bundle branch block with no acute findings; etiology of patient's symptoms was determined to most likely be HFrEF exacerbation. Patient received 40 mg PO Lasix once during admission and metoprolol tartrate 12.5 mg BID; patient's home empagliflozin 10 mg and amlodipine 10 mg were continued during his hospitalization. On 12/31, patient was noted to have normal breathing, significantly reduced LE edema, and stated he felt he was back at his baseline. He was able to ambulate without difficulty and maintained O2 sats >90 on RA and was determined to be appropriate for discharge. Cardiology recommended metoprolol succinate 25 mg PO daily upon discharge; patient was also discharged with 40 mg PO Lasix daily with recommended follow-up with cardiology within 1-2 weeks and PCP follow-up within 2-3 weeks. Problem: HFrEF exacerbation. Investigation: - EKG on 12/31 showed chronic unchanged bifascicular block; negative troponins. Intervention: - Received metoprolol tartrate 12.5 mg BID during admission. - Received 40 mg PO Lasix x1 during admission. End Result: - Discharged with metoprolol succinate 25 mg PO daily, Lasix 40 mg PO daily; had already been taking empagliflozin 10 mg daily. - Cardiology follow-up in 1-2 weeks for further management of GDMT. - PCP follow-up in 2-3 weeks to make PCP aware of recent hospitalization. MEDICATION ADJUSTMENTS AND REASON: 1. Plavix initially held on 12/30 due to concern for STEMI given chest pain on presentation. Will resume upon discharge. 2. Will resume Amoxicillin that patient had been taking after recent dental procedure. NEW MEDICATIONS AND REASON: 1. Start metoprolol succinate 25 mg daily per cardiology rec's for heart failure 2. Start Lasix 40 mg PO daily for diuresis. Pending results: N/A Consults: Cardiology, STRIDE Operations/procedures: N/A Discharge Disposition: to home in stable condition Deidre Madsen MD PGY-1, Physical Medicine & Rehabilitation /jack/ DEIDRE MADSEN Signed: 01/01/2025 11:24 /jack/ BARTOLO EDMONDSON Attending Physician Cosigned: 01/02/2025 16:48 DEIDRE MADSEN-ISMAEL [facility] Dec 31, 2024 02:39 PM ADMINISTRATIVE NOTE: LOCAL TITLE: DEMOGRAPHIC NOTE STANDARD TITLE: ADMINISTRATIVE NOTE DATE OF NOTE: DEC 31, 2024@14:39 ENTRY DATE: DEC 31, 2024@14:40:03 AUTHOR: DEEPTHI MCGRAW COSIGNER: URGENCY: STATUS: COMPLETED Residential Address: Permanent Address: Temporary Address: Email: Phone #s: Insurance: NOK 1: NOK 2: Designee: Emergency Contact 1: Emergency Contact 2: per sw note, spouse # correct. /jack/ BUCKY Villarreal Genetic Engineer on Duty (AOD) Signed: 12/31/2024 14:40 DEEPTHI MCGRAW-CDD [facility] Dec 31, 2024 02:06 PM NURSING DISCHARGE NOTE: LOCAL TITLE: DISCHARGE INSTRUCTIONS STANDARD TITLE: NURSING DISCHARGE NOTE DATE OF NOTE: DEC 31, 2024@14:06 ENTRY DATE: DEC 31, 2024@14:07:02 AUTHOR: JG WALLER COSIGNER: URGENCY: STATUS: COMPLETED DISCHARGE INSTRUCTIONS Has ADDENDA Discharge instructions provided to: Patient Contact telephone number: (This number will be used for our clinical staff to call you regarding your follow up.) [phone] LIFE-SUSTAINING TREATMENT NOTE: No Data Found for the Selected Note Titles No LST Note in CPRS. PSYCHOSOCIAL SCREEN C-SSRS Screening [place] Suicide Severity Rating Scale (C-SSRS) screener 1. Over the past month, have you [...] required due to responses to other questions. C-SSRS Screen is Negative Congestive Heart Failure: Alok Discharge Instructions for Heart Failure reviewed and teach back done, Heart Failure Education Checklist complete and teach back done Future Appointments - Dec@13:30 [facility] Jan@15:00 [facility] CARD FELLOW 22 Jan@13:00 [facility] PFT CDD Jan@14:00 [facility] PULM ILD Aug@09:30 [facility] RHEUM ATT1 LD Diet: Heart Failure (Low Sodium) Heart Failure (Low Sodium) Activity: NO RESTRICTIONS Self Care: Independent bathing, dressing, toileting, feeding Pressure Ulcer or Wound Care? No Flu Vaccine: Not Due Cover sheet reminders reviewed, flu shot not due at this time. Pneumonia Vaccine: Due PCV20 (Prevnar 20) Administered: PNEUMOCOCCAL CONJUGATE PCV20, POLYSACCHARIDE [id number] CONJUGATE, ADJUVANT, PF Date Administered: Dec 31, 2024 14:08 Telephone Order Clerk: [employer] Lot: [id number] Exp Date: Sep 21, 2025 NDC: [id number] Admin Route/Site: INTRAMUSCULAR/LEFT ARM Dosage: 0.5mL Vaccine Information Statement(s): PNEUMOCOCCAL CONJUGATE ([id number]) VIS December 03, 2022 (OMANI) Order By: Policy Administered By: Jg Waller The Pneumococcal Vaccine Information Statement (VIS) was reviewed with the patient/caregiver which lists the benefits and risks of not receiving the Pneumococcal vaccine. The patient/caregiver denied any prior severe reaction to this vaccine or its components or a severe allergic reaction such as anaphylaxis to any vaccine or any injectable therapy. The patient/caregiver gave verbal consent to receive the vaccine. Tobacco Cessation Program Patient not interested in Outpatient Tobacco Cessation Program and/or Not Applicable. PLEASE STOP IN PHARMACY AND CERTIFIED PROCEDURAL CODER YOUR MEDICATIONS See Outpatient Medications at Discharge note for complete list of medications. Equipment provided: none Healthy Life: Weight: (If you have Heart Failure we recommend you have a scale at home and follow the following instructions). Weigh yourself at the same time EVERY day. (Morning is preferred after emptying your bladder before eating or drinking.) Keep a record of your weight. Reduce your weight to no more than 10% greater than your ideal weight. In general, IF YOU GAIN MORE THAN 2 POUNDS OVERNIGHT OR MORE THAN 3-5 POUNDS IN ONE WEEK, CALL YOUR HEALTHCARE PROVIDER. Call if temperature greater than 101.4, Call if incision has increased redness, swelling, or warmth, Call if skin around incision has red streaks or incision drains pus, Call if pain is not controlled to an acceptable level, Call if persistent vomiting greater than 2 times in 24 hours, Call if shortness of breath that does not go away with rest, Call if chest pain unrelieved with 2 nitroglycerin tablets, Call if experiencing falls, Call if there is a change in mental status. Call if symptoms worsen. If you have any questions please contact our Telephone Care Program [phone] locally or Toll Free at After hours [facility] Advice Nurse [phone] locally or Toll Free at The [facility] Crisis Line is [phone], then press 1 To hear your scheduled appointments or to renew your prescriptions by phone call locally or Toll Free at . Patient/caregiver verbalized understanding of , discharge instruction. Copy of discharge , instructions provided to patient/caregiver. Wristband removed: Yes /jack/ Jg VASQUEZ retail account executive RN Signed: 12/31/2024 14:14 12/31/2024 ADDENDUM STATUS: COMPLETED Follow-up with outpatient cardiology in 1-2 weeks. Follow-up with PCP within 2-3 weeks to make PCP aware of recent hospitalization. /earline VASQUEZ retail account executive RN Signed: 12/31/2024 14:18 [facility], 2024 01:39 PM MEDICATION MGT DISCHARGE NOTE: LOCAL TITLE: OUTPATIENT MEDICATIONS AT DISCHARGE STANDARD TITLE: MEDICATION MGT DISCHARGE NOTE DATE OF NOTE: DEC 31, 2024@13:39 ENTRY DATE: DEC 31, 2024@13:39:35 AUTHOR: YENNY HOUSE COSIGNER: URGENCY: STATUS: COMPLETED The following are current [facility] outpatient medications for Mr. ROBBIE GERMAIN at the time of hospital discharge. (This list includes ACTIVE, PENDING, HOLD, and NON-VA medications.) Non-VA AMLODIPINE BESYLATE 10MG TAB 10MG MOUTH DAILY ACTIVE # Refills: Quantity: Issue Date: Provider: Non-VA AMOXICILLIN 500MG CAP 500MG MOUTH THREE TIMES A DAY ACTIVE # Refills: Quantity: Issue Date: Provider: Non-VA CHOLECALCIF 25MCG (D3-1,000UNIT) TAB 1000UNIT MOUTH ACTIVE DAILY # Refills: Quantity: Issue Date: Provider: Non-VA CLOPIDOGREL BISULFATE 75MG TAB 75MG MOUTH DAILY ACTIVE # Refills: Quantity: Issue Date: Provider: Non-VA CYANOCOBALAMIN 1000MCG TAB 1000MCG MOUTH DAILY ACTIVE # Refills: Quantity: Issue Date: Provider: EMPAGLIFLOZIN 10MG TAB TAKE ONE TABLET BY MOUTH EVERY ACTIVE MORNING PROTEINURIA # Refills: 1 Quantity: 90 Issue Date: December 05, 2024 Provider: DALIA BRIGGS FUROSEMIDE 40MG TAB TAKE ONE TABLET BY MOUTH DAILY FOR ACTIVE FLUID- TAKE IN THE MORNING # Refills: 2 Quantity: 90 Issue Date: Dec 31, 2024 Provider: DEIDRE MADSEN Non-VA LEVOCETIRIZINE DIHYDROCHLORIDE 5MG TAB 5MG MOUTH ACTIVE DAILY # Refills: Quantity: Issue Date: Provider: METOPROLOL SUCCINATE 25MG SA TAB TAKE ONE TABLET BY MOUTH ACTIVE DAILY FOR HEART FAILURE # Refills: 2 Quantity: 90 Issue Date: Dec 31, 2024 Provider: DEIDRE MADSEN Non-VA MULTIVIT/OPHTH AREDS2/LUTE/ZEAX CAP/TAB 1 SOFTGEL ACTIVE MOUTH TWICE A DAY AFTER MEALS # Refills: Quantity: Issue Date: Provider: Non-VA ROSUVASTATIN TAB 10MG MOUTH DAILY ACTIVE # Refills: Quantity: Issue Date: Provider: REMOTE OUTPATIENT MEDICATIONS: The following are active REMOTE medications dispensed from other [place] Medical Facilities for Mr. ROBBIE GERMAIN. No Active Remote Medications for this patient /jack/ YENNY HOUSE PharmD, [facility] Clinical Pharmacist Signed: 12/31/2024 13:40 YENNY HOUSE [facility] Dec 31, 2024 01:28 PM PHYSICIAN DISCHARGE NOTE: LOCAL TITLE: DISCHARGE DAY PROGRESS NOTE STANDARD TITLE: PHYSICIAN DISCHARGE NOTE DATE OF NOTE: DEC 31, 2024@13:28 ENTRY DATE: DEC 31, 2024@13:29:22 AUTHOR: DEIDRE MADSEN EXP COSIGNER: BARTOLO EDMONDSON URGENCY: STATUS: COMPLETED DISCHARGE DAY PROGRESS NOTE Has ADDENDA THE PERSON RESPONSIBLE FOR DICTATING/ENTERING THE DISCHARGE SUMMARY ON THIS PATIENT IS: Kevin Hoffman, MS4 FINAL DIAGNOSES: Heart failure with reduced ejection fraction exacerbation. PROCEDURES: No procedures during admission. UPCOMING OUTPATIENT APPOINTMENTS: Future Appointments: 01/04/2025 13:30 [facility] INPATIENT APPOINTMENT 01/31/2025 15:00 [facility] CARD FELLOW 22 INPATIENT APPOINTMENT 02/05/2025 13:00 [facility] PFT CDD INPATIENT APPOINTMENT 02/05/2025 14:00 [facility] PULM ILD INPATIENT APPOINTMENT 08/27/2025 09:30 [facility] RHEUM ATT1 LD INPATIENT APPOINTMENT PLAN FOR FOLLOW UP: 1.) Follow-up with outpatient cardiology in 1-2 weeks, 2.) follow-up with PCP within 2-3 weeks to make PCP aware of recent hospitalization. PENDING DIAGNOSTIC TESTING AT DISCHARGE: None. DIET: Heart Failure (Low Sodium) ACTIVITY: No restrictions. WOUND CARE (Includes Pressure Ulcers): None. SUBJECTIVE: Patient states he feels well today and is breathing good . He feels that he is back at his baseline and has not had any issues ambulating. He states his LE edema has gone down significantly since yesterday. He denies N/V; states he has not had a BM since arrival. Patient and family both state they are amenable to discharge today. DISCHARGE EXAM: General: alert, awake, in NAD. CV: normal S1 and S2; no murmurs, rubs, or gallops. Pulm: lungs clear to auscultation bilaterally. No increased work of breathing. Abd: bowel sounds present; abdomen soft, nondistended, nontender to palpation. Ext: Bilateral 1+ pitting edema present; 2+ radial and posterior tibialis pulses. Skin: no noted rashes, bruises, bleeding. MSK: no joint swelling or deformity. Neuro: CN II-XII grossly intact, AAO x4. No focal deficits. Moves all extremities Psych: affect and thought content appropriate. VITALS: BP: 116/69 (12/31/2024 11:10) Pulse: 56 (12/31/2024 11:10) Wt: 179.1 lb [81.24 kg] (12/31/2024 10:59) LAB DATA: Test Name Result Units Range --------- ------ ----- ----- SODIUM 138 mmol/L 136 - 145 POTASSIUM 4.4 mmol/L 3.5 - 5.1 CHLORIDE 105 mmol/L 98 - 107 CO2 25 mmol/L 22 - 29 ANION GAP 8.0 mEq/L 3 - 19 GLUCOSE 94 mg/dL 74 - 100 UREA NITROGEN 31 H mg/dL 9 - 25 CREATININE 2.04 H mg/dL 0.72 - 1.25 eGFR (CKD-EPI) 32 SEE EVAL CALCIUM 8.9 mg/dL 8.4 - 10.2 WBC 8.2 K/cmm 5.0 - 10.0 RBC 4.03 L M/cmm 4.6 - 6.2 HGB 12.0 L g/dL 14.0 - 18.0 HCT 37.2 L % 42.0 - 52.0 MCV 92.3 fL 80.0 - 94.0 MCH 29.8 pg 27.0 - 31.0 MCHC 32.3 g/dL 32.0 - 36.0 RDW 13.8 % 11.0 - 16.0 PLT 191 K/cmm 150 - 450 MPV 10.5 fL 9.0 - 13.1 NRBC 0.0 % 0.0 - 0.0 MEDICATION ADJUSTMENTS AND REASON: 1. Plavix initially held on 12/30 due to concern for STEMI given chest pain on presentation. Will resume upon discharge. 2. Will resume Amoxicillin that patient had been taking after recent dental procedure. NEW MEDICATIONS AND REASON: 1. Start metoprolol succinate 25 mg daily per cardiology rec's for heart failure 2. Start Lasix 40 mg PO daily for diuresis. See Outpatient Medications at Discharge note for complete list of medications. Deidre Madsen MD PGY-1, Physical Medicine & Rehabilitation /jack/ DEIDRE MADSEN Signed: 12/31/2024 13:31 /jack/ BARTOLO EDMONDSON Attending Physician Cosigned: 01/01/2025 08:55 Receipt Acknowledged By: 01/01/2025 08:12 /jack/ Dalia Briggs MD Primary Care Attending 01/01/2025 08:10 /jack/ YULIET PAYNE peer support specialist 01/01/2025 ADDENDUM STATUS: COMPLETED pt doesn't need PC f/u other than BP check and p1 within 2 weeks. /jack/ Dalia Briggs MD Primary Care Attending Signed: 01/01/2025 08:12 Receipt Acknowledged By: 01/08/2025 13:01 /jack/ TYLER PETERS Advanced Electric Solderer 01/01/2025 09:27 /jack/ JAIME VICENTE, RN PC STUDENT COUNSELOR 01/01/2025 ADDENDUM STATUS: COMPLETED Forwarding above to cardiology CM as this entry writer no longer works in cardiology department. /ajck/ YULIET PAYNE peer support specialist Signed: 01/01/2025 08:11 /jack/ BARTOLO EDMONDSON Attending Physician Cosigned: 01/01/2025 08:56 Receipt Acknowledged By: 01/01/2025 19:25 /jack/ Lita VICENTE RN 2W OPC Talent Program Manager Nurse Harbor Boat Pilot 01/08/2025 ADDENDUM STATUS: COMPLETED Talked to Mr. Germain. Going out of town on January 14. Wanted to come on the at 9:00 to get Bp check and labs. /jack/ TYLER PETERS Advanced Electric Solderer Signed: 01/08/2025 13:15 Receipt Acknowledged By: 01/08/2025 14:55 /jack/ JAIME VICENTE, RN PC STUDENT COUNSELOR 01/11/2025 ADDENDUM STATUS: COMPLETED labwork with renal function worsened by daily lasix. Would consider change to PRN based on wt/symptoms. Defer to cardiology/renal /jack/ Dalia Briggs MD Primary Care Attending Signed: 01/11/2025 11:31 Receipt Acknowledged By: * AWAITING SIGNATURE * KAMI NORRIS JARED G [place] [facility] Dec 31, 2024 12:45 PM NURSING EDUCATION NOTE: LOCAL TITLE: CASE MANAGEMENT DISCHARGE PLANNING EDUCATION NOTE STANDARD TITLE: NURSING EDUCATION NOTE DATE OF NOTE: DEC 31, 2024@12:45 ENTRY DATE: DEC 31, 2024@12:45:05 AUTHOR: YULIET PATELIGNER: URGENCY: STATUS: COMPLETED CASE MANAGEMENT DISCHARGE PLANNING EDUCATION NOTE Has ADDENDA Person receiving education: Patient Understanding of education: Verbalizes understanding CHF: Reviewed Living with Heart Failure document, person receiving education verbalized understanding of information and demonstrated teach back on topics discussed. Pt states he's part of the telehealth BP program but is not interested in being part of the teleheath CHF program. Encouraged pt to talk to his PCP if that should change in the future. /jack/ Yuliet Patel Inpatient Boiler Water Tester Staff Registered Nurse Signed: 12/31/2024 12:46 Receipt Acknowledged By: 12/31/2024 12:47 /jack/ FREDDIE CLOUD PHARM.DDev, [facility], [facility] CASING SEWER, PRIMARY CARE for LALO KUHN 12/31/2024 ADDENDUM STATUS: COMPLETED Will alert Dr. Kuhn to review upon return to clinic. /jack/ FREDDIE CLOUD PHARM.DDev, [facility], [facility] SEWER, PRIMARY CARE Signed: 12/31/2024 12:48 YULIET PATEL-ISMAEL [facility] Dec 31, 2024 12:41 PM NURSING DISCHARGE PLAN: LOCAL TITLE: DISCHARGE PLANNING ASSESSMENT STANDARD TITLE: NURSING DISCHARGE PLAN DATE OF NOTE: DEC 31, 2024@12:41 ENTRY DATE: DEC 31, 2024@12:41:53 AUTHOR: YULIET PATELIGNER: URGENCY: STATUS: COMPLETED Admission Diagnosis: #CHF exacerbation Anticipated discharge destination: Home Admitted to following team: Abraham Villarreal Full assessment indicated Spoke with: Patient Phone number: Current Services: Telehealth BP Patient lives: With Spouse Does patient manage their own medications: Yes Does patient take all medicines as prescribed? Yes Is patient independent with dressing and bathing? Yes Are bedrooms and bathrooms accessible to patient: Yes [facility] you get [facility] the [facility]: Yes Following Medical Supplies patient confirms to have in working condition: Cane , Wheelchair, Shower chair , BP cuff , Weight scale Equipment needs: None identified at this time. Tobacco/Nicotine: Final Tobacco/Nicotine Assessment for this Admission Do you currently or have you ever used tobacco or nicotine products? Former- tobacco user Does patient have home oxygen? No Does patient any wound care needs? No STRIDE: Age >65 years Patient meets criteria STRIDE consult entered. /jack/ Yuliet Patel Inpatient Boiler Water Tester Staff Registered Nurse Signed: 12/31/2024 12:44 YULIET PATEL-CDD [facility] Dec 31, 2024 10:21 AM NURSING INPATIENT NOTE: LOCAL TITLE: [facility] ACUTE INPATIENT NSG SHIFT ASSESSMENT STANDARD TITLE: NURSING INPATIENT NOTE DATE OF NOTE: DEC 31, 2024@10:21 ENTRY DATE: DEC 31, 2024@10:21:47 AUTHOR: JG WALLER COSIGNER: URGENCY: STATUS: COMPLETED Version 2.2 Charting in accordance with [place] APPROVED MAKAH STANDARD (ORAES) ACUTE INPATIENT/REHABILITATION NURSING ADMISSION SCREENING, ASSESSMENT, AND STANDARDS OF CARE ASSESSMENT HANDOFF Bedside report and handoff completed Safety check completed PAIN ASSESSMENT Patient's acceptable pain goal: Are you currently experiencing pain? No: Pain Score: 0 LOMELI FALL SCALE & TIPS PROGRAM Lomeli Fall Scale: The Lomeli Fall scale was performed and score was 30. This is indicative of moderate risk for falls. History of falling: immediate or within 3 months? No Secondary diagnosis: No Ambulatory aid: None/bedrest/nurse assist Intravenous therapy/Heparin lock: Yes Gait/Transferring: Weakness Mental Status: Oriented to own ability/knows own limitations Fall Tailoring Interventions for Patient Safety (TIPS) Fall TIPS reviewed with patient: Yes Interventions: Communicate recent fall or risk of harm Toileting method: Assist to bathroom Other: urinal Assistance out of bed: Call for assistance before getting out of bed ENVIRONMENTAL SAFETY MANAGEMENT Implemented safety standards of care: -Osmond to unit & environment -Adequate room lighting -Bed in low and locked position -Call light within reach -Personal items within reach -Traffic path in room free of clutter -Non-slip footwear -Upper/half length side rails up for bed mobility -Sensory aids within reach -Encourage patient to utilize sensory support NEUROLOGICAL Neurological Orientation: Oriented x4 Level of Consciousness (AVPU): Alert = Appears aware of and responsive to the environment on their own. Follows commands, opens eyes spontaneously, and tracks objects. Affect/behavior: Cooperative Calm ASPIRATION RISK ASSESSMENT AND SWALLOW SCREEN Aspiration Risk(s): Screening complete. No aspiration risk identified. Bedside Swallow Screen not indicated. NEUROMUSCULAR/NEUROVASCULAR EXTREMITIES ASSESSMENT Strength: Drafting Clerk Bilateral: Strong Upper Extremity Bilateral: Full strength Lower Extremity Bilateral: Full strength Sensation: Upper Extremity Sensation Bilateral: Intact Lower Extremity Sensation Bilateral: Intact Temperature: Upper Extremity Temperature Bilateral: Warm Lower Extremity Temperature Bilateral: Warm CARDIOVASCULAR Heart Sounds: Distant/muffled Heart Rate/Rhythm (without monitor car operator): Regular Cardiac Rhythm Analysis: Normal Sinus Rhythm Other: IVCD Telemetry Transmitter Pack #: [id number] Capillary Refill: All 4 extremities, less than or equal to 3 seconds. Peripheral Pulses: All 4 extremities, 3+ normal. Edema: None Cardiovascular - Embolism Prevention: Comment: on heparin SQ RESPIRATORY Respirations: Unlabored Pattern: Regular Breath Sounds Auscultated: Anterior and posterior Left Upper Lobe: Clear Right Upper Lobe: Clear Right Middle Lobe: Clear Left Lower Lobe: Clear Right Lower Lobe: Clear Comment: 2LNC GASTROINTESTINAL Last bowel movement: 6/7/25 Elimination: Continent Palpation: Soft, Non-tender Bowel Sounds: RUQ: Active LUQ: Active RLQ: Active LLQ: Active GENITOURINARY Elimination: Continent Color/Characteristic: Clear Yellow INTEGUMENTARY/SKIN/WOUND - (INCLUDING DEVIN) SEE NOTE: VAAES SKIN INPECTION/ASSESSMENT INTEGUMENTARY/SKIN/WOUND - (INCLUDING DEVIN) Assessment Type: SKIN REINSPECTION/REASSESSMENT SKIN INSPECTION: Skin Color: Usual for ethnicity Skin Temperature: Warm Skin Moisture: Normal Skin Turgor: Elastic (normal/immediate) Devin Skin Assessment: The patient's Devin Scale Score is 22. The patient is considered not at risk for development of pressure ulcers/injuries. Sensory perception -- ability to respond meaningfully to pressure- related discomfort No impairment. Moisture -- degree to which skin is exposed to moisture Rarely moist. Activity -- ability to change and control body position Walks frequently. Mobility -- ability to change and control body position No limitation. Nutrition -- usual food intake patterns Adequate. Friction and shear No apparent problem. INTERVENTIONS: The pressure injury interventions were not needed - patient/resident is not at risk. SKIN INTEGRITY: Intact ACTIVITIES OF DAILY LIVING Hygiene ADLs: Dressing: Upper Body: Minimal assist Lower Body: Minimal assist Eating: Minimal assist Oral Care: Non-ventilator patient: Patient teeth brushed: With assistance set up Pericare: Independent Personal Care: Independent Toileting: Independent MOBILITY Mobility Status: Minimum assist: Stands with support only (Unsteady or requires verbal cueing) Mobilization or Ambulation Distance: 10 steps - 25 feet Gait: Steady IV LINES Peripheral IV: Line #1: Assessment: Location: Left, Antecubital Gauge: 20 Dressing Condition: Clean, dry, intact Site Condition: No redness, swelling, pain Line Status: Capped ADULT EDUCATION Education provided: Topic 1: medications, falls risk Specific Content: Method: Verbal Provided to: Patient Patient understanding of education content: Verbalized understanding /jack/ Jg VASQUEZ retail account executive RN Signed: 12/31/2024 10:47 JG WALLER [place]-CDD [facility] Dec 31, 2024 10:06 AM NURSING E & M NOTE: LOCAL TITLE: NURSING 24 HOUR ORDER VERIFICATION NOTE STANDARD TITLE: NURSING E & M NOTE DATE OF NOTE: DEC 31, 2024@10:06 ENTRY DATE: DEC 31, 2024@10:06:12 AUTHOR: JG WALLER EXP COSIGNER: URGENCY: STATUS: COMPLETED Electronic and hard copy review for orders was completed. Life Sustaining Treatment Orders No LST Note in Postings, Full Code /jack/ Jg VASQUEZ retail account executive RN Signed: 12/31/2024 10:06 JG WALLER-CDD [facility] Dec 31, 2024 09:56 AM NURSING INPATIENT NOTE: LOCAL TITLE: [facility] NURSING FREQUENT DOCUMENTATION STANDARD TITLE: NURSING INPATIENT NOTE DATE OF NOTE: DEC 31, 2024@09:56 ENTRY DATE: DEC 31, 2024@09:56:07 AUTHOR: JG WALLER EXP COSIGNER: URGENCY: STATUS: COMPLETED Version 2.4 Charting in accordance with [place] APPROVED MAKAH STANDARD (ORAES) ACUTE INPATIENT/REHABILITATION NURSING ADMISSION SCREENING, ASSESSMENT, AND STANDARDS OF CARE NATIONAL EARLY WARNING SCORE (NEWS) The following vital measurements were used to complete the NEWS. Measurement DT TEMP PULSE RESP BP POx F(C) (L/MIN)(%) 12/31/2024 08:09 97.9(36.6) 69 18 124/76 91 The NEWS total is 5. 1. Temperature (C/F): Score = 0 36.1 - 38.0 C (96.9 - 100.4 F) 2. Pulse: Score = 0 51-90 3. Respirations: Score = 0 12-20 4. Blood Pressure (Only Systolic BP, mmHg): Score = 0 111-219 5. Pulse Oximetry: Score = 3 91% or lower 6. Supplemental oxygen in use: Score = 2 Yes 7. AVPU: Score = 0 Alert Patient Status: Remains on unit /jack/ Jg VASQUEZ retail account executive RN Signed: 12/31/2024 09:57 JG WALLER-CDD [facility] Dec 31, 2024 09:53 AM NURSING INPATIENT NOTE: LOCAL TITLE: [facility] NURSING FREQUENT DOCUMENTATION STANDARD TITLE: NURSING INPATIENT NOTE DATE OF NOTE: DEC 31, 2024@09:53 ENTRY DATE: DEC 31, 2024@09:53:09 AUTHOR: MARV PULIDO EXP COSIGNER: URGENCY: STATUS: COMPLETED Version 2.4 Charting in accordance with [place] APPROVED MAKAH STANDARD (ORAES) ACUTE INPATIENT/REHABILITATION NURSING ADMISSION SCREENING, ASSESSMENT, AND STANDARDS OF CARE ACTIVITIES OF DAILY LIVING Hygiene ADLs: Oral Care: Non-ventilator patient: Patient teeth brushed: Independently The was educated that poor oral hygiene increases the risk of hospital acquired pneumonia and dental problems like gingivitis and tooth decay. [place] was educated using their preferred method and verbalized understanding. /es/ MARV PULIDO Offshoring Manager Signed: 12/31/2024 09:53 Receipt Acknowledged By: 12/31/2024 10:18 /jack/ Jg VASQUEZ retail account executive RN MARV PULIDO [facility] Dec 31, 2024 09:33 AM SCANNED NOTE: LOCAL TITLE: SCANNED ADMISSIONS/DISCHARGES STANDARD TITLE: SCANNED NOTE DATE OF NOTE: DEC 31, 2024@09:33 ENTRY DATE: JAN 01, 2025@09:33:26 AUTHOR: ELISABET SMITH EXP COSIGNER: URGENCY: STATUS: COMPLETED The scanned image may be viewed in [employer]aren[employer]. /jack/ ELISABET SMITH fileclerk Signed: 01/01/2025 09:33 ELISABET SMITH [facility] Dec 31, 2024 04:51 AM NURSING INPATIENT NOTE: LOCAL TITLE: [facility] NURSING FREQUENT DOCUMENTATION STANDARD TITLE: NURSING INPATIENT NOTE DATE OF NOTE: DEC 31, 2024@04:51 ENTRY DATE: DEC 31, 2024@04:51:33 AUTHOR: RIC BRYAN EXP COSIGNER: URGENCY: STATUS: COMPLETED Version 2.4 Charting in accordance with [place] APPROVED MAKAH STANDARD (ORAES) ACUTE INPATIENT/REHABILITATION NURSING ADMISSION SCREENING, ASSESSMENT, AND STANDARDS OF CARE NATIONAL EARLY WARNING SCORE (NEWS) The following vital measurements were used to complete the NEWS. Measurement DT TEMP PULSE RESP BP POx F(C) (L/MIN)(%) 12/31/2024 04:20 97.4(36.3) 64 18 132/75 93 The NEWS total is 4. 1. Temperature (C/F): Score = 0 36.1 - 38.0 C (96.9 - 100.4 F) 2. Pulse: Score = 0 51-90 3. Respirations: Score = 0 12-20 4. Blood Pressure (Only Systolic BP, mmHg): Score = 0 111-219 5. Pulse Oximetry: Score = 2 92% - 93% 6. Supplemental oxygen in use: Score = 2 Yes 7. AVPU: Score = 0 Alert Patient Status: Remains on unit /jack/ Ric Bryan, retail account executive RN Signed: 12/31/2024 04:52 RIC BRYAN-ISMAEL [facility] Dec 30, 2024 09:50 PM NURSING INPATIENT NOTE: LOCAL TITLE: [facility] NURSING FREQUENT DOCUMENTATION STANDARD TITLE: NURSING INPATIENT NOTE DATE OF NOTE: DEC 30, 2024@21:50 ENTRY DATE: DEC 30, 2024@21:50:45 AUTHOR: DAKOTA FERGUSON EXP COSIGNER: URGENCY: STATUS: COMPLETED Version 2.4 Charting in accordance with [place] APPROVED MAKAH STANDARD (ORAES) ACUTE INPATIENT/REHABILITATION NURSING ADMISSION SCREENING, ASSESSMENT, AND STANDARDS OF CARE ACTIVITIES OF DAILY LIVING Hygiene ADLs: Oral Care: Non-ventilator patient: Patient teeth brushed: Independently The was educated that poor oral hygiene increases the risk of hospital acquired pneumonia and dental problems like gingivitis and tooth decay. was educated using their preferred method and verbalized understanding. /jack/ DAKOTA FERGUSON Offshoring Manager Signed: 12/30/2024 21:51 Receipt Acknowledged By: 12/31/2024 00:16 /jack/ Ric Bryan RN manager integrated DAKOTA FERGUSON-ISMAEL [facility] Dec 30, 2024 09:00 PM NURSING INPATIENT NOTE: LOCAL TITLE: [facility] ACUTE INPATIENT NSG SHIFT ASSESSMENT STANDARD TITLE: NURSING INPATIENT NOTE DATE OF NOTE: DEC 30, 2024@21:00 ENTRY DATE: DEC 31, 2024@01:12:33 AUTHOR: RIC BRYAN EXP COSIGNER: URGENCY: STATUS: COMPLETED Version 2.2 Charting in accordance with [place] APPROVED MAKAH STANDARD (ORAES) ACUTE INPATIENT/REHABILITATION NURSING ADMISSION SCREENING, ASSESSMENT, AND STANDARDS OF CARE ASSESSMENT HANDOFF Bedside report and handoff completed Safety check completed PAIN ASSESSMENT Patient's acceptable pain goal: Are you currently experiencing pain? No: Pain Score: 0 LOMELI FALL SCALE & TIPS PROGRAM Lomeli Fall Scale: The Lomeli Fall scale was performed and score was 60. This is indicative of high risk for falls. History of falling: immediate or within 3 months? No Secondary diagnosis: Yes Ambulatory aid: Crutches/cane(s)/walker Intravenous therapy/Heparin lock: Yes Gait/Transferring: Weakness Mental Status: Oriented to own ability/knows own limitations Fall Tailoring Interventions for Patient Safety (TIPS) Fall TIPS initiated with patient: Yes Interventions: Communicate recent fall or risk of harm Walking Aids: Walker Assistance out of bed: Call for assistance before getting out of bed Fall TIPS reviewed with patient: Yes Interventions: Communicate recent fall or risk of harm Walking Aids: Walker Assistance out of bed: Call for assistance before getting out of bed ENVIRONMENTAL SAFETY MANAGEMENT Implemented safety standards of care: -Osmond to unit & environment -Adequate room lighting -Bed in low and locked position -Call light within reach -Personal items within reach -Traffic path in room free of clutter -Non-slip footwear -Upper/half length side rails up for bed mobility -Sensory aids within reach -Encourage patient to utilize sensory support Additional safety measures: Caregiver/family in attendance Close to nurses station Increased frequency of rounding Mobility support items readily available NEUROLOGICAL Neurological Orientation: Oriented x4 Level of Consciousness (AVPU): Alert = Appears aware of and responsive to the environment on their own. Follows commands, opens eyes spontaneously, and tracks objects. Affect/behavior: Cooperative Calm Cruz Agitation Sedation Scale (RASS): 0 Alert and calm NEUROMUSCULAR/NEUROVASCULAR EXTREMITIES ASSESSMENT Strength: Drafting Clerk Bilateral: Moderate Upper Extremity Bilateral: Moves against some resistance Lower Extremity Bilateral: Moves against some resistance Sensation: Upper Extremity Sensation Bilateral: Intact Lower Extremity Sensation Bilateral: Intact Temperature: Upper Extremity Temperature Bilateral: Warm Lower Extremity Temperature Bilateral: Warm CARDIOVASCULAR Heart Sounds: Normal (S1S2) Cardiac Rhythm Analysis: Normal Sinus Rhythm Telemetry Transmitter Pack #: [id number] Capillary Refill: All 4 extremities, less than or equal to 3 seconds. Peripheral Pulses: All 4 extremities, 3+ normal. Edema: Present Pitting Location: BLE Measurement: 2+ Slight indentation. 15 seconds to rebound. Cardiovascular - Embolism Prevention: Comment: Heparin SQ RESPIRATORY Respirations: Unlabored Pattern: Regular Breath Sounds Auscultated: Anterior only Left Upper Lobe: Clear Right Upper Lobe: Clear Right Middle Lobe: Clear Left Lower Lobe: Clear Right Lower Lobe: Clear Supplemental Oxygen Therapy: Flow rate (liters/min): 2 GASTROINTESTINAL Last bowel movement: 6// Elimination: Continent Abdominal Description: Rounded Palpation: Soft, Non-tender Bowel Sounds: RUQ: Active LUQ: Active RLQ: Active LLQ: Active GENITOURINARY Elimination: Continent INTEGUMENTARY/SKIN/WOUND - (INCLUDING DEVIN) SEE NOTE: VAAES SKIN INPECTION/ASSESSMENT INTEGUMENTARY/SKIN/WOUND - (INCLUDING DEVIN) Assessment Type: SKIN REINSPECTION/REASSESSMENT SKIN INSPECTION: Skin Color: Pale Skin Temperature: Warm Skin Moisture: Normal Skin Turgor: Elastic (normal/immediate) Devin Skin Assessment: The patient's Devin Scale Score is 19. The patient is considered not at risk for development of pressure ulcers/injuries. Sensory perception -- ability to respond meaningfully to pressure- related discomfort Slightly limited. Moisture -- degree to which skin is exposed to moisture Rarely moist. Activity -- ability to change and control body position Walks occasionally. Mobility -- ability to change and control body position Slightly limited. Nutrition -- usual food intake patterns Adequate. Friction and shear No apparent problem. INTERVENTIONS: The pressure injury interventions were not needed - patient/resident is not at risk. SKIN INTEGRITY: Intact MOBILITY Mobility Status: Minimum assist: Stands with support only (Unsteady or requires verbal cueing) Gait: Unsteady IV LINES Peripheral IV: Line #1: Assessment: Location: Left, Antecubital Gauge: 20 Dressing Condition: Clean, dry, intact Transparent dressing Site Condition: No redness, swelling, pain Line Status: Capped Flushed Line #2: Assessment: Location: Left, Upper arm Gauge: 18 Dressing Condition: Clean, dry, intact Transparent dressing Site Condition: No redness, swelling, pain Line Status: Capped Flushed PSYCHOSOCIAL Type of Emotional Support Provided: Family conference, Anticipated outcomes, Treatment discussion, Ventilation of feelings zoë /jack/ Ric Bryan retail account executive RN Signed: 12/31/2024 01:17 RIC BRYAN-CDD [facility] Dec 30, 2024 08:23 PM NURSING INPATIENT NOTE: LOCAL TITLE: [facility] NURSING FREQUENT DOCUMENTATION STANDARD TITLE: NURSING INPATIENT NOTE DATE OF NOTE: DEC 30, 2024@20:23 ENTRY DATE: DEC 30, 2024@20:23:49 AUTHOR: RIC BRYAN EXP COSIGNER: URGENCY: STATUS: COMPLETED Version 2.4 Charting in accordance with OR APPROVED MAKAH STANDARD ([facility]) ACUTE INPATIENT/REHABILITATION NURSING ADMISSION SCREENING, ASSESSMENT, AND STANDARDS OF CARE NATIONAL EARLY WARNING SCORE (NEWS) The following vital measurements were used to complete the NEWS. Measurement DT TEMP PULSE RESP BP POx F(C) (L/MIN)(%) 12/30/2024 20:10 97.6(36.4) 65 18 136/72 92 The NEWS total is 4. 1. Temperature (C/F): Score = 0 36.1 - 38.0 C (96.9 - 100.4 F) 2. Pulse: Score = 0 51-90 3. Respirations: Score = 0 12-20 4. Blood Pressure (Only Systolic BP, mmHg): Score = 0 111-219 5. Pulse Oximetry: Score = 2 92% - 93% 6. Supplemental oxygen in use: Score = 2 Yes 7. AVPU: Score = 0 Alert Patient Status: Remains on unit /jack/ Ric Bryan RN manager integrated Signed: 12/30/2024 20:24 RIC BRYANBina [facility] Dec 30, 2024 08:22 PM NURSING E & M NOTE: LOCAL TITLE: NURSING 24 HOUR ORDER VERIFICATION NOTE STANDARD TITLE: NURSING E & M NOTE DATE OF NOTE: DEC 30, 2024@20:22 ENTRY DATE: DEC 30, 2024@20:22:43 AUTHOR: RIC BRYAN EXP COSIGNER: URGENCY: STATUS: COMPLETED Electronic and hard copy review for orders was completed. Life Sustaining Treatment Orders No LST Note in Postings, Full Code /jack/ Ric Bryan RN manager integrated Signed: 12/30/2024 20:22 RIC BRYAN [facility] Dec 30, 2024 06:25 PM NURSING INTAKE & OUTPUT NOTE: LOCAL TITLE: NURSING INTAKE & OUTPUT DTOD STANDARD TITLE: NURSING INTAKE & OUTPUT NOTE DATE OF NOTE: DEC 30, 2024@18:25 ENTRY DATE: DEC 30, 2024@18:25:28 AUTHOR: VIPUL LOUIE EXP COSIGNER: URGENCY: STATUS: COMPLETED Shift Totals: START TIME: Dec@07:00 STOP TIME: Dec@18:00 INTAKE PO Fluids: 960 ml OUTPUT Urine: 1180 ml Total INTAKE: 960 ml Total OUTPUT: 1180 ml Unmeasured OUTPUT Comments: /jack/ VIPUL CRAMER RN Signed: 12/30/2024 18:25 VIPUL LOUIE [facility] Dec 30, 2024 04:18 PM NURSING INPATIENT NOTE: LOCAL TITLE: [facility] NURSING FREQUENT DOCUMENTATION STANDARD TITLE: NURSING INPATIENT NOTE DATE OF NOTE: DEC 30, 2024@16:18 ENTRY DATE: DEC 30, 2024@16:18:29 AUTHOR: VIPUL LOUIE EXP COSIGNER: URGENCY: STATUS: COMPLETED Version 2.4 Charting in accordance with OR APPROVED MAKAH STANDARD ([facility]) ACUTE INPATIENT/REHABILITATION NURSING ADMISSION SCREENING, ASSESSMENT, AND STANDARDS OF CARE NATIONAL EARLY WARNING SCORE (NEWS) The following vital measurements were used to complete the NEWS. Measurement DT TEMP PULSE RESP BP POx F(C) (L/MIN)(%) 12/30/2024 15:55 97.0(36.1) 61 18 144/77 97 The NEWS total is 0. 1. Temperature (C/F): Score = 0 36.1 - 38.0 C (96.9 - 100.4 F) 2. Pulse: Score = 0 51-90 3. Respirations: Score = 0 12-20 4. Blood Pressure (Only Systolic BP, mmHg): Score = 0 111-219 5. Pulse Oximetry: Score = 0 96% or greater 6. Supplemental oxygen in use: Score = 0 No 7. AVPU: Score = 0 Alert Patient Status: Remains on unit /jack/ VIPUL CRAMER RN Signed: 12/30/2024 16:18 VIPUL LOUIE [facility] Dec 30, 2024 01:23 PM NURSING INPATIENT NOTE: LOCAL TITLE: [facility] NURSING FREQUENT DOCUMENTATION STANDARD TITLE: NURSING INPATIENT NOTE DATE OF NOTE: DEC 30, 2024@13:23 ENTRY DATE: DEC 30, 2024@13:23:22 AUTHOR: NIKOS BOSWELL EXP COSIGNER: URGENCY: STATUS: COMPLETED Version 2.4 Charting in accordance with OR APPROVED MAKAH STANDARD ([facility]) ACUTE INPATIENT/REHABILITATION NURSING ADMISSION SCREENING, ASSESSMENT, AND STANDARDS OF CARE ACTIVITIES OF DAILY LIVING Hygiene ADLs: Oral Care: Non-ventilator patient: Patient teeth brushed: Independently The was educated that poor oral hygiene increases the risk of hospital acquired pneumonia and dental problems like gingivitis and tooth decay. [place] was educated using their preferred method and verbalized understanding. /jack/ NIKOS BOSWELL Registered Nurse Signed: 12/30/2024 13:25 NIKOS BOSWELL [place]-CDD [facility] Dec 30, 2024 12:54 PM INTERNAL MEDICINE H & P NOTE: LOCAL TITLE: MEDICINE INTER/RESIDENT H&P NOTE STANDARD TITLE: INTERNAL MEDICINE H & P NOTE DATE OF NOTE: DEC 30, 2024@12:54 ENTRY DATE: DEC 30, 2024@12:55:13 AUTHOR: DINORA SEVERINO EXP COSIGNER: BARTOLO EDMONDSON URGENCY: STATUS: COMPLETED MEDICINE INTER/RESIDENT H&P NOTE Has ADDENDA CC: chest pain HPI: 84 male with PMH significant for CKD4, HTN, HLD, undifferentiated ILD, CAD with PCI to RCA in 2001 after a cardiac arrest, HFrEF not on medical therapy, who presented as a transfer from an OSH for chest pain. Patient reports left sided chest pain that started at 10pm last night. At that time, his pain was an 8/10 with associated right arm pain. He presented to [facility] ED where his chest pain improved to a 2/10 after a round of nitroglycerin and morphine. EKG was reportedly normal, troponin negative, and BNP 1800. On admission, he endorses 2/10 chest pain that worsens when he breathes. He endorses SOB and is not on home oxygen. He reports LE edema that has been worsening over the last few months. supervisor laboratory was initially alerted but canceled when EKG revealed known right bundle branch block and negative troponins. ROS: CONSTITUTIONAL: No weakness, No fever, chills , weight loss. EYES: No recent loss of vision, blurred vision, double vision, yellow sclerae. ENMT: No difficulty swallowing, No hearing loss, sinus problems. SKIN: No rash, itching, wounds. CARDIOVASCULAR: No palpitations. RESPIRATORY: No cough, hemoptysis, wheezing. GASTROINTESTINAL: No abdominal pain, nausea/vomiting, diarrhea, constipation. GENITOURINARY: No dysuria, hematuria, increased frequency. NEUROLOGICAL: No headache, dizziness, syncope, weakness, numbness/tingling. MUSCULOSKELETAL: No muscle pain, back pain/stiffness, joint pain, joint swelling. HEMATOLOGIC: No swollen lymph nodes, easy bleeding/bruising. PSYCHIATRIC: No history of depression or anxiety. ENDOCRINOLOGIC: No excessive thirst, fatigue, cold/heat intolerance. PMH: Active problems - Computerized Problem List is the source for the followin. Long-term current use of antiplatelet drug 2. History of calculus of kidney 3. Exudative age-related macular degeneration 4. Chronic kidney disease stage 4 5. Anemia 6. Chronic kidney disease stage 4 due to type 2 diabetes mellitus 7. History of cholecystectomy 8. Overweight 9. Hearing loss (SNOMED CT 46326499) 10. Benign hypertensive renal disease 11. Allergic rhinitis (SNOMED CT 18859123) 12. History of rheumatic fever at age 6 13. Family h/o Cancer of GI Tract 14. Coronary artery disease (SNOMED CT 54609666) s/p PR 05/26 (stents) CHF (EF 40-45%) on ECHO 07/03/07 no reversible defect on stress test 05/31 15. Pure hypercholesterolemia ASPIRIN, ATORVASTATIN MEDS: EMPAGLIFLOZIN 10MG TAB Fill Date: DECEMBER 06, 2024 Sig: TAKE ONE TABLET BY MOUTH EVERY MORNING PROTEINURIA FH: NO family history of DM or HTN SH: Alcohol: denies Tobacco smoking: denies Illicit drugs: Denies VITALS: Tc: 97.0 F [36.1 C] (12/30/2024 10:27) HR: 63 (12/30/2024 10:27) RR: 18 (12/30/2024 10:27) BP: 126/66 (12/30/2024 10:27) SpO2: DEC 30, 2024@10:27 -- PULSE OXIMETRY: 97 PHYSICAL EXAM GENERAL: no acute distress, cooperative SKIN: warm and dry, no rashes, wounds, ulcers EYES: conjunctiva clear, EOMI, PERRLA ENT: intact, mucous membranes moist, no apparent injury HEAD/NECK: neck supple, no apparent injury, no cervical lymphadenopathy RESPIRATORY/THORAX: breath sounds equal, respirations non-labored, mild crackles bilaterally CARDIOVASCULAR: regular rate and rhythm, normal S1 and S2, no murmurs, pulses 2 +, 1+ BLE edema GASTROINTESTINAL: bowel sounds normal, soft, non-tender, no hepatosplenomegaly MUSCULOSKELETAL: no joint swelling, full range of motion in all extremities NEUROLOGICAL: CN II-IX intact grossly, interactive and normal tone PSYCHOLOGICAL: Alert & Oriented x4, appropriate mood and behavior LABS: WBC: 10.2 K/cmm H (12/30/2024 07:46) H HCT: 0 PLT: 0 MCV: 93.1 fL (12/30/2024 07:46) RDW: 13.8 % (12/30/2024 07:46) INR: 1.21 H (12/30/2024 07:46) PTT: 32.2 seconds (12/30/2024 07:46) SODIUM: 139 mmol/L (12/30/2024 07:46) POTASSIUM: 4.4 mmol/L (12/30/2024 07:46) CHLORIDE: 108 mmol/L H (12/30/2024 07:46) CO2: 23 mmol/L (12/30/2024 07:46) BUN: 31 mg/dL H (12/30/2024 07:46) CREATININE: Collection DT Specimen Test Name Result Units Ref Range 12/30/2024 07:46 PLASMA!! CREATININE 1.97 H mg/dL 0.72 - 1.25 !! Indicates COMMENTS AVAILABLE...Refer to Interim Lab Report. CALCIUM: 8.8 mg/dL (12/30/2024 07:46) ANION GAP: 8.0 mEq/L (12/30/2024 07:46) AST: 27 U/L (12/30/2024 07:46) ALT: 18 U/L (12/30/2024 07:46) ALK PHOS: 107 U/L (12/30/2024 07:46) BILIRUBIN: ALBUMIN: 3.8 g/dL (12/30/2024 07:46) PROTEIN: 7.0 g/dL (12/30/2024 07:46) HgA1C: Collection DT Specimen Test Name Result Units Ref Range 12/30/2024 07:46 BLOOD HGB 12.3 L g/dL 14.0 - 18.0 IMAGING: A/P: 84 male with PMH significant for CKD4, HTN, HLD, undifferentiated ILD, CAD with PCI to RCA in 2001 after a cardiac arrest, HFrEF not on medical therapy, who presented as a transfer from an OSH for chest pain, SOB, and LE edema concerning for CHF exacerbation. #CHF exacerbation - presented with chest pain, SOB, and LE edema - initial concern for STEMI, cardiology consulted and read EKGs as unchanged with chronic bifascicular block and label designer activation was canceled - troponins negative - LVEF 35-40% for years, untreated - LAD territory scar on SPECT - RCA PCI in 2001 post cardiac arrest Plan: - Cardiology consulted, appreciate recs as below - no indication for coronary angiography with unlikely benefit from revascularization for chronic CAD with LAD scar - secondary prevention of CAD with aspirin 81 mg daily - continue rosuvastatin 10 mg QHS - continue empagliflozin 10 mg daily - start metoprolol tartrate 12.5 mg BID - continue amlodipine 10 mg daily - recommend gentle diuresis with lasix 40 mg PO - strict I/Os FEN/DVT: F- PO E- replete prn N- cardiac diet DVT Ppx- heparin Code Status: Full code Dispo: Admit to [facility] /jack/ CHLOE SEVERINO Signed: 12/30/2024 13:53 /earline EDMONDSON Attending Physician Cosigned: 12/31/2024 13:24 12/31/2024 ADDENDUM STATUS: COMPLETED Pt seen, examined, and case discussed with house staff. I have participated in the saleem decision making for the patient's care, and I agree with the treatment plan. See Resident/Digester Capper note for further details. I have reviewed the Essential Medication List for Review. acute hypoxic resp failure (2L O2 and resp distress), improving acute exacerbation of systolic HF non-cardiac chest pain CKD4 Plan: -feels much improved today, good response to PO lasix -will start low dose toprol XL, cont empaglafozin/amlodipine -start low dose daily lasix cards follow up next month, PCP 1 week with repeat panel 1 given med changes /earline EDMONDSON Attending Physician Signed: 12/31/2024 13:29 JUANJO SEVERINO-ISMAEL [facility] Dec 30, 2024 11:55 AM ADMINISTRATIVE NOTE: LOCAL TITLE: ESSENTIAL MEDICATIONS LIST FOR REVIEW (EMLR) STANDARD TITLE: ADMINISTRATIVE NOTE DATE OF NOTE: DEC 30, 2024@11:55 ENTRY DATE: DEC 30, 2024@11:55:09 AUTHOR: SARAVANAN LEA EXP COSIGNER: URGENCY: STATUS: COMPLETED Active and Recently Outpatient Medications (including Supplies): Active Outpatient Medications [...] ACTIVE Indication: FOR CHOLESTEROL 6 Total Medications Allergies: local and remote ASPIRIN, ATORVASTATIN No Remote Allergy/ADR Data available for this patient Review of medications include: Patient allergies (Remote and Local) and active and pending prescriptions dispensed from this [facility] (local) and dispensed from another OR or [facility] facility (remote and pending) as well as local inpatient orders (pending and active) and clinic medications (IMOs), locally documented non-VA medications and local prescriptions that have or been discontinued in the past 90 days. With the exception of Allergies, if a category is not listed below, it means there were no relevant medications for the patient. MRT5-Local & Remote Allergies Inpatient Active/Pending: HEPARIN 5,000UNITS/ML INJ,SOLN Directions: 5000 UNITS/1ML Schedule: Q8H Admin: 12-04-20 Special: DO NOT HOLD unless ordered by provider. INR: 1.21 H (12/30/2024 07:46) Issued: 12/30/24 Expires: 04/08/25 Status: ACTIVE No remote medications found. Outpatient Active/Pending: EMPAGLIFLOZIN 10MG TAB Directions: TAKE ONE TABLET BY MOUTH EVERY MORNING PROTEINURIA Quantity: 90 for 90 days Issued: 12/05/24 Filled: 12/06/24 Expires: 12/06/25 Refills: 1 Status: ACTIVE No remote medications found. No local medications found. No remote medications found. Inpatient Nonva Medications: AMLODIPINE BESYLATE 10MG TAB Directions: 10MG MOUTH DAILY Status: ACTIVE CHOLECALCIF 25MCG (D3-1,000UNIT) TAB Directions: 1000UNIT MOUTH DAILY Status: ACTIVE CLOPIDOGREL BISULFATE 75MG TAB Directions: 75MG MOUTH DAILY Status: ACTIVE MULTIVIT/OPHTH AREDS2/LUTE/ZEAX CAP/TAB Directions: 1 SOFTGEL MOUTH TWICE A DAY AFTER MEALS Status: ACTIVE ROSUVASTATIN TAB Directions: 10MG MOUTH DAILY Status: ACTIVE Inpatient : No local medications found. No remote medications found. Inpatient Discontinued: No local medications found. No remote medications found. /jack/ Saravanan Lea Electric Solderer Signed: 12/30/2024 11:55 SARAVANAN LEA-ISMAEL [facility] Dec 30, 2024 11:01 AM CARDIOLOGY CONSULT: LOCAL TITLE: CARDIOLOGY CONSULT REPONSE STANDARD TITLE: CARDIOLOGY CONSULT DATE OF NOTE: DEC 30, 2024@11:01 ENTRY DATE: DEC 30, 2024@11:01:22 AUTHOR: KAROL CONN COSIGNER: KRISTYN BILLINGS URGENCY: STATUS: COMPLETED Inpatient consult: CARDIOLOGY CONSULT NOTE Reason for consult: Chest pain HPI: ROBBIE GERMAIN JR is a 84 MALE with a past medical history of DMII with CKD4, HTN, HLD, undifferentiated ILD, CAD with PCI to RCA in 2001 after a cardiac arrest, HFrEF not on medical therapy, who presented as a transfer to [facility] on 12/30 for chest pain. He states he has had chest pain since yesterday that is constant, worse with inspiration, radiates to right arm, and is not relieved by rest, nitroglycerin, supine/upright positioning, and not aggravated by anything besides breathing. He was initially STEMI alerted, but upon review, EKGs unchanged with chronic bifascicular block and this was cancelled. Recent investigations include echocardiogram and stress test in November 2024 revealing a large, moderate to severe intesity, fixed defect in the mid to distal anterior, anteroseptal, and septal wall segments with extension into the apex with associated wall motion abnormalities on pharmacologic SPECT, and LVEF 35-40% on echo (unchanged since 2022) with akinetic apex at rest and mild MR. He is only on empagliflozin for HF. On exam he feels well besides the inspirational chest pain, got relief with morphine, and endorses LE edema worse after standing and relieved by supine sleep. He denies orthopnea, dizziness, lightheadedness, dyspnea, presyncope. Initial hsn-Tonja of 6. ROS: Reviewed and negative except as listed above in HPI. PMHx: Active problems - Computerized Problem List is the source for the followin. Long-term current use of antiplatelet drug 2. History of calculus of kidney 3. Exudative age-related macular degeneration 4. Chronic kidney disease stage 4 5. Anemia 6. Chronic kidney disease stage 4 due to type 2 diabetes mellitus 7. History of cholecystectomy 8. Overweight 9. Hearing loss (SNOMED CT 96230689) 10. Benign hypertensive renal disease 11. Allergic rhinitis (SNOMED CT 39902177) 12. History of rheumatic fever at age 6 13. Family h/o Cancer of GI Tract 14. Coronary artery disease (SNOMED CT 24559061) s/p PR 05/26 (stents) CHF (EF 40-45%) on ECHO 07/03/07 no reversible defect on stress test 05/31 15. Pure hypercholesterolemia PSHx: Reviewed - noncontributory Social Hx: Reviewed - noncontributory Family Hx: Reviewed - noncontributory Medications: Active Inpatient Medications (including Supplies): Active Inpatient Medications Status 1) HEPARIN 5,000UNITS/ML INJ,SOLN 5000 UNITS/1ML SC Q8H DO NOT ACTIVE HOLD unless ordered by provider. INR: 1.21 H (12/30/2024 07:46) Indication: FOR ANTICOAGULATION Allergies/Adverse Reactions: ASPIRIN, ATORVASTATIN Relevant Imaging/Procedures: there is a large, moderate to severe defect located in the mid to distal anterior, anteroseptal, and septal wall segments with extension into the apex Physical Exam: Vitals: TEMP: 97.0 F [36.1 C] (12/30/2024 10:27) PULSE:63 (12/30/2024 10:27) BP: 126/66 (12/30/2024 10:27) RESP: 18 (12/30/2024 10:27) Pulse Ox: DEC 30, 2024@10:27 -- PULSE OXIMETRY: 97 WT: 186 lb [84.37 kg] (12/03/2024 13:07) Gen: A&Ox3, NAD, geropmorphic HEENT: Normocephalic/Atraumatic, MMM Neck: Supple, no JVD Pulm: Normal work of breathing, fine crackles bilaterally CV: RRR, normal S1/S2, no m/r/g Abd: Soft, NT/ND Extr: Warm to touch, 2+ LE edema, distal pulses intact and symmetric in upper and lower extremities Neuro: No gross focal deficits, normal speech Psych: Normal affect, answers questions appropriately Assessment/Plan: ROBBIE GERMAINCALEBHALI JR is a 84 MALE with a past medical history as described above who we are seeing in consultation for chest pain. 1) Noncardiac chest pain -- troponion 6 --> pending 2) CAD -- LAD territory scar on SPECT -- RCA PCI in 2001 post cardiac arrest 3) HFrEF due to ICM - LVEF 35-40% for years, untreated 4) Interstitial lung disease, undifferentiated 5) HLD 6) DMII -- A1c 5.9% -- LDL 82, HDL 42 7) Chronic Bifascicular Block Recommendations: - no indication for coronary angiography with unlikely benefit from revascularization for chronic CAD with LAD scar - secondary prevention of CAD with aspirin 81 mg daily - continue rosuvastatin 10 mg QHS - continue empagliflozin 10 mg daily - start metoprolol tartrate 12.5 mg BID - continue amlodipine 10 mg daily - recommend gentle diuresis with lasix 40 mg PO - will follow and arrange outpatient follow up at discharge This overnight consult will be formally staffed with the Cardiology attending within 24 hours. Primary team will be updated should these initial recommendations change. /jack/ KAROL CONN Refrigerating Machine Operator Signed: 12/30/2024 11:18 /jack/ Kristyn Billings MD Cardiology Attending Cosigned: 12/31/2024 14:33 KAROL CONN-ISMAEL [facility] Dec 30, 2024 09:00 AM NURSING INPATIENT NOTE: LOCAL TITLE: [facility] ACUTE INPATIENT NSG SHIFT ASSESSMENT STANDARD TITLE: NURSING INPATIENT NOTE DATE OF NOTE: DEC 30, 2024@09:00 ENTRY DATE: DEC 30, 2024@10:21:35 AUTHOR: VIPUL LOUIE COSIGNER: URGENCY: STATUS: COMPLETED Version 2.2 Charting in accordance with [place] APPROVED MAKAH STANDARD ([facility]) ACUTE INPATIENT/REHABILITATION NURSING ADMISSION SCREENING, ASSESSMENT, AND STANDARDS OF CARE ASSESSMENT HANDOFF Bedside report and handoff completed Safety check completed ENVIRONMENTAL SAFETY MANAGEMENT Implemented safety standards of care: -Osmond to unit & environment -Adequate room lighting -Bed in low and locked position -Call light within reach -Personal items within reach -Traffic path in room free of clutter -Non-slip footwear -Upper/half length side rails up for bed mobility -Sensory aids within reach -Encourage patient to utilize sensory support NEUROLOGICAL Neurological Orientation: Oriented x4 Level of Consciousness (AVPU): Alert = Appears aware of and responsive to the environment on their own. Follows commands, opens eyes spontaneously, and tracks objects. Affect/behavior: Cooperative Calm Cruz Agitation Sedation Scale (RASS): 0 Alert and calm NEUROMUSCULAR/NEUROVASCULAR EXTREMITIES ASSESSMENT Strength: Drafting Clerk Bilateral: Moderate Upper Extremity Bilateral: Moves against some resistance Lower Extremity Bilateral: Moves against some resistance Sensation: Upper Extremity Sensation Bilateral: Intact Lower Extremity Sensation Bilateral: Intact Temperature: Upper Extremity Temperature Bilateral: Warm Lower Extremity Temperature Bilateral: Warm CARDIOVASCULAR Heart Sounds: Normal (S1S2) Heart Rate/Rhythm (without monitor car operator): Regular Cardiac Rhythm Analysis: Normal Sinus Rhythm Telemetry Transmitter Pack #: 02 Capillary Refill: All 4 extremities, less than or equal to 3 seconds. Peripheral Pulses: All 4 extremities, 3+ normal. Edema: Present Pitting Location: BLE Measurement: 2+ Slight indentation. 15 seconds to rebound. Cardiovascular - Embolism Prevention: Comment: heparin RESPIRATORY Respirations: Unlabored Pattern: Regular Breath Sounds Auscultated: Anterior only Left Upper Lobe: Clear Right Upper Lobe: Clear Right Middle Lobe: Clear Left Lower Lobe: Clear Right Lower Lobe: Clear Supplemental Oxygen Therapy: Flow rate (liters/min): 2 Method: Nasal cannula GASTROINTESTINAL Last bowel movement: 12/29/2024 Elimination: Continent Abdominal Description: Rounded Palpation: Soft, Non-tender Bowel Sounds: RUQ: Active LUQ: Active RLQ: Active LLQ: Active GENITOURINARY Elimination: INTEGUMENTARY/SKIN/WOUND - (INCLUDING DEVIN) SEE NOTE: VAAES SKIN INPECTION/ASSESSMENT MOBILITY Mobility Status: Minimum assist: Stands with support only (Unsteady or requires verbal cueing) Equipment utilized: Walker IV LINES Peripheral IV: Present on admission: Line #1: Location: Left, Antecubital Gauge: 20 Line #1: Assessment: Location: Left, Antecubital Gauge: 20 Dressing Condition: Clean, dry, intact Transparent dressing Site Condition: No redness, swelling, pain Line Status: Capped Flushed Line #2: Insertion: Date/Time: Dec@07:30 Inserted by (name): Ric Gonzalesron Location: Left, Upper arm Gauge: 18 Assessment: Location: Left, Upper arm Gauge: 18 Dressing Condition: Clean, dry, intact Transparent dressing Site Condition: No redness, swelling, pain Line Status: Capped Flushed PSYCHOSOCIAL Type of Emotional Support Provided: 1:1 discussion, Hospitalization discussion, Treatment discussion /jack/ VIPUL LOUIE QUALITY ENGINEER Signed: 12/30/2024 10:39 VIPUL LOUIE-ISMAEL [facility] Dec 30, 2024 08:51 AM NURSING ADMISSION EVALUATION NOTE: LOCAL TITLE: VAAES ACUTE INPATIENT NSG ADMISSION S STANDARD TITLE: NURSING ADMISSION EVALUATION NOTE DATE OF NOTE: DEC 30, 2024@08:51 ENTRY DATE: DEC 30, 2024@08:51:31 AUTHOR: JORY LOPEZ COSIGNER: URGENCY: STATUS: COMPLETED ALLERGY/ADVERSE DRUG REACTION (ADR) REVIEW (MRT5) FACILITY ALLERGY/ADR -------- No Remote Allergy/ADR Data available for this patient [facility] Allergy/Adverse Drug Reaction Review to be conducted by: Nurse: Results of Allergy/ADR Review: Allergy/Adverse Drug Reaction list confirmed. MEDICATION REVIEW (MRR1) Did patient bring medication(s) from home? No Medication Review to be conducted by pharmacy GENERAL INFORMATION Admission information given by: Patient Is there a legal guardian/conservator? No Preferred language for discussing healthcare: Preferred mode of communication: Verbal Written Items at Bedside: Visual Aids: Standard Glasses Hearing Aid(s): Bilateral INFECTIOUS DISEASE RISK SCREEN Travel Screen: Have you traveled within the [place] within the last 21 days? No Have you traveled outside the [place] within the last 21 days? No Within the last 14 days, have you had: No known exposure Other Exposure to Infectious Disease: No known exposure Patient reported the following symptoms: No Symptoms Present History of Multiple Drug Resistant Organism (MDRO): No NUTRITION SCREENING Malnutrition Screening Weight (Previous 6 months): Measurement DT WEIGHT LB(KG)[BMI] 12/03/2024 13:07 186(84.37)[30*] 10/25/2024 08:27 187.4(85.00)[30*] 10/02/2024 12:11 188.0(85.28)[30*] 08/07/2024 14:30 185.0(83.91)[30*] Lost weight recently without trying: No (0 points) Have you been eating poorly because of decreased appetite? No (0 points) Total Score: 0 Other Nutrition Screening Questions: The patient does not report any concerns with their teeth that would make it difficult to eat. The patient does not report overeating to the point of feeling sick or making themselves vomit. The patient denies gaining 10 lbs.(4.5 kgs) or more in the past 3 months without trying. The patient denies having any food allergies, intolerance, special dietary needs, or ethnic, cultural or lutheran preferences that would affect their dietary needs. Food Insecurity Screening Within the past 12 months, you worried whether your food would run out before you got money to buy more. Never true Within the past 12 months, the food you bought just did not last you and you did not have the money to get more. Never true Food Insecurity Disposition: RISK SCREENINGS Alcohol Screen: Screen to be completed by: Nurse: SCREEN FOR ALCOHOL (AUDIT-C) An alcohol screening [...] required due to responses to other questions. *Does the patient consume alcohol? No Tobacco Use: Never - tobacco user Do you currently or have you ever used alternative nicotine products? No Substance Use Assessment: *Do you use any recreational drugs or narcotics (prescription or non-prescription)? No RISK OF WANDERING The patient does not have a history of wandering. The patient does not have a history of elopement. The patient is not expressing a desire to leave. SUICIDE SCREEN [place] Suicide Severity Rating Scale (C-SSRS) 1. Over the past month, have you [...] required due to responses to other questions. C-SSRS Screen is Negative EXPOSURE TO VIOLENCE AND ABUSE PRE-SCREEN Are you worried for your safety, that you will be hurt or harmed? No Has anyone tried to force you to sign papers or use your money against your will? No POST TRAUMATIC STRESS DISORDER CARE CONSIDERATIONS To minimize a startle response, what is your preference on how best to awaken you? Knock before entering REPRODUCTIVE & SEXUAL HEALTH Do you have any sexual or reproductive concerns you would like your healthcare team to be aware of? No ADVANCE DIRECTIVE Notification of Rights Related to Advance Directives: Written notification provided. *The patient wishes to receive information about or assistance with Advance Care Planning and/or Advance Directive: No SPIRITUALITY Are there lutheran practices or spiritual concerns you want the credit correspondence clerk, your provider, and other health care team members to know? No ANTICIPATED DISCHARGE NEEDS Where do you live? Housing owned/rented by [employer]: Comment: vet owns home Method of transportation upon discharge: Private Vehicle: Comment: spouse will provide ride home Are there any anticipated barriers to discharge? No EDUCATIONAL NEEDS/LEARNING STYLE Barriers to learning: None evident Patient learning style preferences: 1:1 VISITOR INFORMATION Will you have a primary support person while in the hospital? Yes: Relationship to patient: Spouse Visitor Name: Jamila Germain Contact Number: [phone] Patient's Visitor Restriction preferences: No Privacy Review: Discussed with patient who may receive health information and the need for that identified person to provide a passcode for the staff to discuss. understood LOMELI FALL SCALE & TIPS PROGRAM Lomeli Fall Scale: The Lomeli Fall scale was performed and score was 45. This is indicative of high risk for falls. History of falling: immediate or within 3 months? No Secondary diagnosis: Yes Ambulatory aid: None/bedrest/nurse assist Intravenous therapy/Heparin lock: Yes Gait/Transferring: Weakness Mental Status: Oriented to own ability/knows own limitations Fall Tailoring Interventions for Patient Safety (TIPS) Fall TIPS initiated with patient: Yes Interventions: Communicate recent fall or risk of harm IV assistance when walking Toileting method: Assist to bathroom ASPIRATION RISK ASSESSMENT AND SWALLOW SCREEN Aspiration Risk(s): Screening complete. No aspiration risk identified. Bedside Swallow Screen not indicated. PAIN ASSESSMENT Patient's acceptable pain goal: 2 Notice pain, does not interfere with activities Are you currently experiencing pain? Yes - DVPRS scale used to assess Location: chest Defense and Veterans Pain Rating Scale (DVPRS): 2 Notice pain, does not interfere with activities Pain Score: 2 /jack/ Jory Lopez RN manager integrated Signed: 12/30/2024 09:13 JORY LOPEZ [facility] Dec 30, 2024 08:43 AM NURSING E & M NOTE: LOCAL TITLE: NURSING PLAN OF CARE STANDARD TITLE: NURSING E & M NOTE DATE OF NOTE: DEC 30, 2024@08:43 ENTRY DATE: DEC 30, 2024@08:43:56 AUTHOR: JORY LOPEZ EXP COSIGNER: URGENCY: STATUS: COMPLETED NURSING PLAN OF CARE Has ADDENDA PROBLEM: Skin Integrity For Skin Plan of Care see last Skin Assessment/Reassessment Note The Daily Plan was reviewed with patient or family. CHEST PAIN/ANGINA: Chest pain related to Coronary artery disease Target date for review or resolution of problem: Dec Target date must be no less than 1 days and no greater than 3 days. Plan of care must be reviewed every shift. Goals: Describes preventive measures and risk factors related to Coronary Artery Disease, States free of pain, States anxiety and fears are alleviated, Verbalizes onset & description of chest pain on a 1-10 scale, Remains hemodynamically stable, Absence of dyspnea/crackles/wheezes, Absence of extra heart sounds, Blood Pressure within normal limits (baseline), Stable heart rate/rhythm, EKG indications no PR, ongoing ischemia, or extension of PR, Level of consciousness WNL, Oriented x 3 Interventions: Advise patient to notify the nurse of pain/discomfort, Assess for Telemetry changes, Assess for EKG changes, Assess for S/S of decreased cardiac output, Document history of pain, Administer prescribed narcotic/analgesic FALLS/INJURY POTENTIAL: Fall risk related to Generalized weakness Target date for review or resolution of problem: Dec Target date must be no less than 1 days and no greater than 3 days. Plan of care must be reviewed every shift. Goals: Increase patients/family awareness of fall risks, Actively engage patient and family in Fall Prevention plan and training, Reduce severity of fall-related injuries, Will not sustain injury related to fall /jack/ Jory Lopezretail account executive RN Signed: 12/30/2024 08:46 12/31/2024 ADDENDUM STATUS: COMPLETED Plan of Care was reviewed with patient/significant other. CHEST PAIN/ANGINA: Goal met/problem resolved FALLS/INJURY POTENTIAL: Goal met/problem resolved /es/ Jg VASQUEZ retail account executive RN Signed: 12/31/2024 15:29 JORY [facility] Dec 30, 2024 08:41 AM NURSING NOTE: LOCAL TITLE: [facility] SKIN INSPECTION/ASSESSMENT STANDARD TITLE: NURSING NOTE DATE OF NOTE: DEC 30, 2024@08:41 ENTRY DATE: DEC 30, 2024@08:41:17 AUTHOR: JORY LOPEZ EXP COSIGNER: URGENCY: STATUS: COMPLETED Assessment Type: INITIAL SKIN INSPECTION/ASSESSMENT SKIN INSPECTION: Skin Color: Usual for ethnicity Skin Temperature: Warm Skin Moisture: Diaphoretic Skin Turgor: Elastic (normal/immediate) Devin Skin Assessment: The patient's Devin Scale Score is 20. The patient is considered not at risk for development of pressure ulcers/injuries. Sensory perception -- ability to respond meaningfully to pressure-related discomfort No impairment. Moisture -- degree to which skin is exposed to moisture Rarely moist. Activity -- ability to change and control body position Walks occasionally. Mobility -- ability to change and control body position Slightly limited. Nutrition -- usual food intake patterns Adequate. Friction and shear No apparent problem. INTERVENTIONS: The pressure injury interventions were not needed - patient/resident is not at risk. RISK FACTORS THAT INCREASE RISK FOR DEVELOPING PRESSURE INJURIES The patient/resident does not have any additional risk factors. SKIN ALTERATIONS: Pressure Ulcer/Injury Documentation from the past year: No data available SKIN ALTERATIONS: Wound Documentation from the past year: No data available for: Skin Integrity - Wound Skin Integrity - Wound Second Skin Integrity - Wound Third Skin Integrity - Wound Fourth Skin Integrity - Wound Fifth Skin Integrity - Wound Additional SKIN INTEGRITY: Intact /earline Lopez RN manager integrated Signed: 12/30/2024 08:43 Receipt Acknowledged By: 12/30/2024 08:55 /earline LOUIE QUALITY ENGINEERJORY NAVARRO [facility] Dec 30, 2024 08:13 AM NURSING E & M NOTE: LOCAL TITLE: NURSING 24 HOUR ORDER VERIFICATION NOTE STANDARD TITLE: NURSING E & M NOTE DATE OF NOTE: DEC 30, 2024@08:13 ENTRY DATE: DEC 30, 2024@08:13:25 AUTHOR: VIPUL LOUIE EXP COSIGNER: URGENCY: STATUS: COMPLETED Electronic and hard copy review for orders was completed. Life Sustaining Treatment Orders No LST Note in Postings, Full Code /earline LOUIE QUALITY ENGINEER Signed: 12/30/2024 08:13 VIPUL LOUIE [facility] Dec 30, 2024 08:13 AM NURSING INPATIENT NOTE: LOCAL TITLE: [facility] NURSING FREQUENT DOCUMENTATION STANDARD TITLE: NURSING INPATIENT NOTE DATE OF NOTE: DEC 30, 2024@08:13 ENTRY DATE: DEC 30, 2024@08:13:41 AUTHOR: VIPUL LOUIE COSIGNER: URGENCY: STATUS: COMPLETED Version 2.4 Charting in accordance with [place] APPROVED [place]KAH STANDARD (ORAES) ACUTE INPATIENT/REHABILITATION NURSING ADMISSION SCREENING, ASSESSMENT, AND STANDARDS OF CARE NATIONAL EARLY WARNING SCORE (NEWS) The following vital measurements were used to complete the NEWS. Measurement DT TEMP PULSE RESP BP POx F(C) (L/MIN)(%) 12/30/2024 07:09 97.8(36.6) 76 16 144/73 95 The NEWS total is 3. 1. Temperature (C/F): Score = 0 36.1 - 38.0 C (96.9 - 100.4 F) 2. Pulse: Score = 0 51-90 3. Respirations: Score = 0 12-20 4. Blood Pressure (Only Systolic BP, mmHg): Score = 0 111-219 5. Pulse Oximetry: Score = 1 94% - 95% 6. Supplemental oxygen in use: Score = 2 Yes 7. AVPU: Score = 0 Alert Patient Status: Remains on unit /jack/ VIPUL LOUIE QUALITY ENGINEER Signed: 12/30/2024 08:14 VIPUL LOUIE [facility]
--- OUTSIDE RECORDS SUMMARY | 2024-12-31 05:09 | XMS_ITS | Encounter Summary ---
Author Name [facility] [place] [facility] [place] Address [address] [place] [address] Care Team Providers Care Roof Tile Layer Name Role Phone JORDYN DALIA Primary Care [...] AUTOM OTIVE - RETI Jul 25, 2018 [id number] MALUTI PERKINS JORDAN SPOUSE MEDICARE (WNR) MEDICARE (M) PART B Jan 22, 2007 PART B [id number] [id number] REINAJUSTYNA RGE PATIENT MEDICARE (WNR) MEDICARE (M) PART A Sep 22, 2005 PART A [id number] REINAJUSTYNA WEBBER PATIENT FOR LIFE TRICA RE FOR LIFE Jul 25, 2017 SAPNA FOR LIFE [id number] ROBBIE HUANG JR PATIENT Selected Encounter This section includes the information on record at [place] for the Encounter. Date/Time Encounter Type Encounter Description Reason Provider Source Dec 31, 2024 09:09 AM MTMS BY PHARM KAM 15 MIN CLINICAL PHARMACY ICD-10-CM Z51.81 Encounter for therapeutic drug level monitoring [facility] Encounter Template Text not used by [place] Assessments - Encounter Diagnoses This section includes the primary and secondary diagnoses documented for the Encounter. Date/Time Primary/Secondary Diagnosis Diagnosis Name Provider Source Dec 31, 2024 10:23 AM PRIMARY Encounter for therapeutic drug level monitoring PASQUALE NOBLE [facility] Plan of Treatment: Future Appointments (+ 6 months) and Future Tests (+/- 45 days) The Plan of Treatment section includes future care activities for the patient [facility] This section includes future appointments and future orders which are active, pending or scheduled. Future Appointments This section includes appointments that were scheduled to occur 6 months from the date of the Encounter, up to a maximum of 20 appointments. The data comes from all [facility]. Appointment Date/Time Appointment Type Appointme nt Facility Name Jan 04, 2025 01:30 PM AMBULATORY - SURGERY [place] [facility] Jan 31, 2025 03:00 PM AMBULATORY - MEDICINE [facility] Feb 05, 2025 01:00 PM AMBULATORY - MEDICINE [facility] Feb 05, 2025 02:00 PM AMBULATORY - MEDICINE [facility] Active, Pending, and [...] theEncounter. The data comes from all [facility]. Test Date/Time Test Type Test Details Facility Name Jan 04, 2025 12:00 AM Imaging - Vascular Lab Order SEGMENTAL PRESSURES, LOWER EXT([place]) UNILAT [facility] Jan 04, 2025 12:00 AM Imaging - Vascular Lab Order VENOUS DUPLEX LOWER EXT BILAT [facility] Feb 01, 2025 12:00 AM Laboratory - Chemi stry Order PANEL 4 [id number] SP ONCE [facility] Feb 01, 2025 12:00 AM Laboratory - Chemi stry Order CREATININE URINE SP ONCE [facility] Feb 01, 2025 12:00 AM Laboratory - Chemi stry Order TOTAL PROTEIN URINE SP ONCE [facility] Feb 01, 2025 12:00 AM Laboratory - Chemi stry Order URINALYSIS URINE PATIENT WAITING SP ONCE [facility] Feb 01, 2025 12:00 AM Laboratory - Chemi stry Order 25-OH VITAMIN D [id number] SP ONCE [facility] Feb 01, 2025 12:00 AM Laboratory - Chemi stry Order CBC/PLT [id number] BLOOD SP ONCE [facility] Feb 01, 2025 12:00 AM Laboratory - Chemi stry Order PTH INTACT (MCCALL) [id number] SP ONCE [facility] Lab Results: +/- 30 days of [...] Type Comment Dec 31, 2024 12:02 PM [facility] GLUCOSE-HAND MONITOR CAPILLARY Specimen Type: CAPILLARY Comment: Test performed by: [id number] Meter #: [id number] Ordering Provider: MICHELL SEVERINO Report Released Date/Time: Dec 31, 2024 12:58 PM Reporting Lab: [address] [address] Performing Lab: [address] [address] GLUCOSE-HAND MONITOR 129 mg/dL H 71-99 Dec [...] Dec 30, 2024 08:23 AM Reporting Lab: [address] [address] Performing Lab: [address] [address] CREATININE 2.04 mg/dL H 0.72-1.25 UREA NITROGEN [...] Dec 30, 2024 08:23 AM Reporting Lab: [place] [id number] Performing Lab: [place] [id number] WBC 8.2 10*3/uL 5.0-10.0 RBC 4.03 10*6/uL [...] n Type: CAPILLARY Comment: Test performed by: [id number] Meter #: [id number] Ordering Provider: CHLOE SEVERINO Report Released Date/Time: Dec 31, 2024 07:17 AM Reporting Lab: [address] [address] Performing Lab: [address] [address] GLUCOSE-HAND MONITOR 99 mg/dL 71-99 Dec 30, 2024 08:10 PM [facility] GLUCOSE-HAND MONITOR CAPILLARY Specime n Type: CAPILLARY Comment: Test performed by: [id number] Meter #: [id number] Ordering Provider: CHLOE SEVERINO Report Released Date/Time: Dec 30, 2024 09:15 PM Reporting Lab: [address] [address] Performing Lab: [address] [address] GLUCOSE-HAND MONITOR 124 mg/dL H 71-99 Dec 30, 2024 04:21 PM [facility] GLUCOSE-HAND MONITOR CAPILLARY Specime n Type: CAPILLARY Comment: Test performed by: [id number] Meter #: [id number] Ordering Provider: CHLOE SEVERINO Report Released Date/Time: Dec 30, 2024 04:39 PM Reporting Lab: [address] [address] Performing Lab: [address] [address] GLUCOSE-HAND MONITOR 92 mg/dL -Dec 30, 2024 [...] Dec 30, 2024 10:43 AM Reporting Lab: [address] [address] Performing Lab: [address] [address] MRSA SURVL NARES DNA Negative Negative Dec 30, 2024 11:39 AM [facility] GLUCOSE-HAND MONITOR CAPILLARY Specime n Type: CAPILLARY Comment: Test performed by: [id number] Meter #: [id number] Ordering Provider: CHLOE SEVERINO Report Released Date/Time: Dec 30, 2024 11:56 AM Reporting Lab: [place] [address] Performing Lab: [address] [address] GLUCOSE-HAND MONITOR 115 mg/dL H 71-99 Dec 30, 2024 07:46 AM [facility] CODE / DIGITAL CONTENT MANAGER VENOUS BLOOD GAS VENOUS BLOOD Specimen Type: VENOUS BLOOD Comment: Collection Time: 12-30-2024 @ 07:46 Ordering Provider: KEYANNA EDMONDSON Report Released Date/Time: Dec 30, 2024 07:54 AM Reporting Lab: [address] [address] Performing Lab: [address] [address] .VpCO2 46 mm[Hg] 41-51 .VpH 7.34 7.33-7.43 Dec 30, 2024 07:46 AM [facility] CODE / DIGITAL CONTENT MANAGER BLUE TOP PLASMA Specimen Type: PLASMA No comment entered. Ordering Provider: KEYANNA EDMONDSON Report Released Date/Time: Dec 30, 2024 07:53 AM Reporting Lab: [address] [address] Performing Lab: [address] [address] PT PATIENT 15.1 s H 11.7-14.4 INTERNATIONAL NORMALIZED RATIO 1.21 H 0 .87-1.14 PTT PATIENT 32.2 s 24.0-33.2 Dec 30, 2024 07:46 AM [facility] CODE / DIGITAL CONTENT MANAGER GREEN TOP PLASMA Specimen Type: ALFREDITO SMA [...] I information resource can be reached in [facility] in the Tools menu, under the Education [...] Dec 30, 2024 07:53 AM Reporting Lab: [address] [address] Performing Lab: [address] [address] IONIZED CALCIUM 1.13 mmol/L L 1.15-1.29 CREATININE [...] [facility] CODE / DIGITAL CONTENT MANAGER BACH TOP PLASMA Specimen Type: PLASMA No comment entered. Ordering Provider: KEYANNA EDMONDSON Report Released Date/Time: Dec 30, 2024 07:53 AM Reporting Lab: [address] [address] Performing Lab: [address] [address] LACTIC ACID 0.9 mmol/L 0.5-2.2 Dec 30, 2024 07:46 AM [facility] CODE / DIGITAL CONTENT MANAGER LAVENDER TOP BLOOD Spec imen Type: BLOOD No comment entered. Ordering Provider: KEYANNA EDMONDSON Report Released Date/Time: Dec 30, 2024 07:53 AM Reporting Lab: [address] [address] Performing Lab: [address] [address] WBC 10.2 10*3/uL H 5.0-10.0 RBC 4.04 10*6/uL L 4.6-6.2 HGB 12.3 g/dL L 14.0-18.0 HCT 37.6 L 42.0-52.0 MCV 93.1 fL 80.0-94.0 MCH 30.4 pg 27.0-31.0 MCHC 32.7 g/dL 32.0-36.0 PLT 187 10*3/uL 150-450 MPV 10.2 fL 9.0-13.1 RDW 13.8 11.0-16.0 NRBC 0.0 0.0-0.0 December 03, 2024 02:03 PM [facility] PROTEIN ELECTROPHORESIS URINE Specimen Type: URINE No comment entered. Ordering Provider: DALIA COBB Report Released Date/Time: December 03, 2024 01:24 PM Reporting Lab: [address] [address] Performing Lab: [address] [address] TOTAL PROTEIN 17.0 mg/dL Not Estab. .ALBUMIN ELEC 29.4 .ALPHA 1 ELEC 5.2 .ALPHA 2 ELEC 21.5 .BETA ELEC 19.7 .GAMMA ELEC 24.2 .M-SPIKE Not Observed Not Observed December 03, 2024 02:03 PM [facility] TOTAL PROTEIN URINE Specimen Type: URINE No comment entered. Ordering Provider: DALIA COBB Report Released Date/Time: December 03, 2024 01:24 PM Reporting Lab: [address] [address] Performing Lab: [address] [address] TOTAL PROTEIN 16 mg/dL H 0-14 December 03, 2024 02:03 PM [facility] CREATININE URINE Specimen Type: URINE No comment entered. Ordering Provider: DALIA COBB Report Released Date/Time: December 03, 2024 01:24 PM Reporting Lab: [place] [phone] Performing Lab: [place] [phone] CREATININE 63.6 mg/dL December 03, 2024 02:03 PM [facility] URINALYSIS URINE Specimen Type: URINE Comment: Microscopic not indicated Ordering Provider: DALIA COBB Report Released Date/Time: December 03, 2024 01:29 PM Reporting Lab: [address] [address] Performing Lab: [address] [address] URINE COLOR Light Yellow Colorless-Yello w APPEARANCE Clear Clear UROBILINOGEN Normal mg/dL Normal URINE BLOOD Negative Negative URINE BILIRUBIN Negative Negative URINE KETONES Negative mg/dL Negative URINE PROTEIN Negative mg/dL Negative-Tr rachell URINE PH 5.0 4.5-8.0 URINE NITRITE Negative Negative URINE LEUKOCYTE EST Negative Negative SPECIFIC GRAVITY 1.014 1.005-1.030 URINE GLUCOSE >1000 mg/dL H Negative December 03, 2024 01:45 PM [facility] ANTI-NUCLEAR Ab SERUM Specimen Type: SERUM Comment: Atypical speckled resembling DFS (Dense-Fine Speckled. The DFS pattern has a low prevalence in systemic autoimmune rheumatic diseases. The clinical association remains unclear. Due to its close resemblance to other patterns of clinical relevance, (i.e. Homogeneous, speckled, and mixed patterns) follow-up testing may be recommended. ANTI-NUCLEAR Ab reported incorrectly as Atypical Speckled by [[id number]]. Changed to 1:320 Atypical Speckled on December 06, 2024@12:59 by [[id number]]. Ordering Provider: DALIA COBB Report Released Date/Time: December 03, 2024 01:38 PM Reporting Lab: [address] [address] Performing Lab: [address] [address] ANTI-NUCLEAR Ab 1:320 Atypical Speckled <1:80 December 03, 2024 01:45 PM [facility] ROSALIE (SERUM) SERUM Specimen Type: SERUM Comment: BNP results less than or equal to 100 pg/ml are product sales representative of normal values in patients without CHF. BNP results greater than 100 pg/ml are considered abnormal and suggestive of CHF. Higher BNP concentrations in the first 72 hours after Acute Coronary Syndrome are associated with an increased risk of , myocardial infarction and CHF. Ordering Provider: DALIA COBB Report Released Date/Time: December 03, 2024 01:24 PM Reporting Lab: [address] [address] Performing Lab: [address] [address] .ALBUMIN ELEC 3.6 g/dL 2.9-4.4 .ALPHA 1 [...] INTERPRETATION Comment December 03, 2024 01:45 PM [facility] SERUM Specimen Type: SERUM No comment entered. Ordering Provider: DALIA COBB Report Released Date/Time: December 03, 2024 01:38 PM Reporting Lab: [address] [address] Performing Lab: [address] [address] JORDAN SCREEN Negative Negative December 03, 2024 01:45 PM [facility] BNP (Celnyx) PLASMA Specimen Type: PLASMA Comment: BNP results less than or equal to 100 pg/ml are product sales representative of normal values in patients without CHF. BNP results greater than 100 pg/ml are considered abnormal and suggestive of CHF. Higher BNP concentrations in the first 72 hours after Acute Coronary Syndrome are associated with an increased risk of , myocardial infarction and CHF. Ordering Provider: DALIA COBB Report Released Date/Time: December 03, 2024 01:24 PM Reporting Lab: [facility] [address] [facility] [address] Performing Lab: [address] [address] BNP (MCCALL) 225 pg/mL H 0-100 December 03, 2024 01:45 PM [facility] CK TOTAL PLASMA Specimen Type: PLASM A [...] Lab: [facility] [address] [facility] [address] Performing Lab: [facility] [address] [place] [address] CK TOTAL 76 U/L 30-200 December 03, 2024 01:45 PM [facility] PANEL 5 PLASMA Specimen Type: PLASM A [...] December 03, 2024 01:24 PM Reporting Lab: [address] [address] Performing Lab: [address] [address] CREATININE 2.05 mg/dL H 0.72-1.25 UREA NITROGEN [...] (CKD-EPI) 31 December 03, 2024 01:45 PM [facility] CBC/PLT BLOOD Specimen Type: BLOOD No comment entered. Ordering Provider: DALIA COBB Report Released Date/Time: December 03, 2024 01:33 PM Reporting Lab: [address] [address] Performing Lab: [address] [address] WBC 5.6 10*3/uL 5.0-10.0 RBC 4.24 10*6/uL L 4.6-6.2 HGB 12.8 g/dL L 14.0-18.0 HCT 39.4 L 42.0-52.0 MCV 92.9 fL 80.0-94.0 MCH 30.2 pg 27.0-31.0 MCHC 32.5 g/dL 32.0-36.0 PLT 248 10*3/uL 150-450 MPV 10.2 fL 9.0-13.1 RDW 14.2 11.0-16.0 NRBC 0.0 0.0-0.0 December 03, 2024 01:45 PM [facility] AUTOMATED DIFF BLOOD Specimen Type: BLOOD No comment entered. Ordering Provider: DALIA COBB Report Released Date/Time: December 03, 2024 01:33 PM Reporting Lab: [address] [address] Performing Lab: [address] [address] A-LYMPH % 22.1 L 24.0-44.0 A-MONO % [...] Height Weight Body Mass Index Source Dec 31, 2024 01:16 PM 94 [place] Dec 31, 2024 11:10 AM 98.2 56 116/69 18 97 0 [place] [facility] Dec 31, 2024 10:59 AM 179.1 29 [place] Dec 31, 2024 10:28 AM 0 [place] Dec 31, 2024 08:09 AM 97.9 69 124/76 18 91 0 [place] [facility] Social History: Smoking Status (Most current) and Tobacco Use (All prior to encounter date) This section includes the most current, and the historical, smoking and tobacco- related health factors from the [facility] facility where the Encounter took place. Current Smoking Status This section includes the most current smoking, or tobacco-related health factor, from the [facility] facility where the Encounter took place. Date/Time Current Smoking Status Comment Kelechi dial May 10, 2024 02:00 PM VA-TOBACCO NEVER USED [facility] Tobacco Use History This section includes a history of the smoking, or tobacco-related health factors, that were collected on or before the date of the Encounter. The data comes from the [facility] facility where the Encounter took place. Date/Time Smoking Status/Tobacco Use Comment F nicolegenet May 19, 2017 03:22 AM NON-TOBACCO USE [...] the Encounter. The data comes from all [place] treatment facilities. Date/Time Radiology Report Provider Source December 14, 2024 07:49 AM CARD. STRESS TEST W/TREADMILL/...: ROBBIE HUANG [id number] M Exm Date: DECEMBER 14, 2024@07:49 Req Phys: DALIA COBB Loc: [facility] 16-1 (Req'g Loc) Img Loc: NUCLEAR MEDICINE Service: [place] [address] (Case [id number] COMPLETE)CARD. STRESS TEST W/TREADMILL/...(NM Detailed) CPT:57143 Reason for Study: SEE CLINICAL HISTORY Clinical History: Cardiology approval by: [facility] CONNECTED? No Active Outpatient Medications (including [...] 14, 2024 Date Verified: DECEMBER 14, 2024 Plate Worker Helper E-Sig: Report: STUDY: GXT with vasodilator REPORT: [...] Staff: CHAO ORR APRN, Cardiology Verified by photo journalist for CHAO ORR /CHAO GIRON-D [facility] December 14, 2024 07:49 AM [id number] REGADENOSON 0.1MG X4 (LEXISCAN): ROBBIE HUANG [id number] -1940 M Exm Date: DECEMBER 14, 2024@07:49 Req Phys: DALIA COBB Loc: [facility] [place] 16-1 (Req'g Loc) Img Loc: NUCLEAR MEDICINE Service: [place] [address] (Case [id number] COMPLETE)[id number] REGADENOSON 0.1MG X4 (STEPHON(NM Detailed) CPT:J2785 [...] 14, 2024 Date Verified: DECEMBER 14, 2024 Plate Worker Helper E-Sig: Report: STUDY: GXT with vasodilator REPORT: [...] Staff: CHAO ORR APRN, Cardiology Verified by photo journalist for CHAO ORR /CHAO GIRON-ISMAEL [facility] December 14, 2024 07:49 AM CARD. STRESS TEST W/TREADMILL/...: ROBBIE HUANG [id number] -1940 M Exm Date: DECEMBER 14, 2024@07:49 Req Phys: DALIA COBB Loc: [facility] 16-1 (Req'g Loc) Img Loc: NUCLEAR MEDICINE Service: [place] [address] (Case [id number] COMPLETE)CARD. STRESS TEST W/TREADMILL/...(NM Detailed) CPT:60247 Proc Modifiers : GXT Reason for Study: [...] 14, 2024 Date Verified: DECEMBER 14, 2024 Plate Worker Helper E-Sig: Report: [place], [place] STUDY: Regadenoson (Lexiscan) SPECT Tc-99m myoview [...] performed with tomographic and three-dimensional reconstructions with [employer] NM/CT 640 system. Exercise: Patient exercised for [...] data sets in addition to the conventional wpm-jrxnttolwkn-gevjrcpif images. Both filtered back projection and iterative [...] ventricular cavity. 4. SPECT images: Attenuation-corrected and gdq-mpinyehalcd-bqeihbeme SPECT images were evaluated. SPECT images demonstrate [...] JEB SANTOS MD, CARDIOLOGY ATTENDING Verified by photo journalist for JEB SANTOS MD /JEB MANCILLA-CDD [facility] December 14, 2024 07:49 AM 56259(D) MYOCARDIA L SPECT(MULTIPLE): ROBBIE HUANG [id number] -1940 M Exm Date: DECEMBER 14, 2024@07:49 Req Phys: DALIA COBB Pat Loc: [facility] 16-1 (Req'g Loc) Im Loc: NUCLEAR MEDICINE Service: [place] [address] (Case [id number] COMPLETE)34484(D) MYOCARDIAL SPECT(MULTIPL(NM Detailed) CPT:00646 Proc Modifiers : Lexiscan (Regadenoson) CPT Modifiers [...] YENNY GAMBOA Clinical History: Cardiology approval by: [facility] CONNECTED? No Active Outpatient Medications (including [...] 14, 2024 Date Verified: DECEMBER 14, 2024 Plate Worker Helper E-Sig: Report: [place] STUDY: Regadenoson (Lexiscan) SPECT Tc-99m myoview [...] performed with tomographic and three-dimensional reconstructions with [employer]/CT 640 system. Exercise: Patient exercised for 6 [...] data sets in addition to the conventional jda-wytknxzejnu-rcbjblhjp images. Both filtered back projection and iterative [...] ventricular cavity. 4. SPECT images: Attenuation-corrected and wyx-iarjnnxjvlx-fimeuxalt SPECT images were evaluated. SPECT images demonstrate [...] JEB SANTOS MD, CARDIOLOGY ATTENDING Verified by photo journalist for JEB SANTOS MD /JEB MANCILLA-CDD [facility] December 14, 2024 07:49 AM MYOVIEW(1): ROBBIE HUANG [id number] -1940 M Exm Date: DECEMBER 14, 2024@07:49 Req Phys: DALIA COBB Pat Loc: [facility] 16-1 (Req'g Loc) Img Loc: NUCLEAR MEDICINE Service: [place] [address] (Case [id number] COMPLETE)MYOVIEW(1) (NM Detailed) CPT:A9502 Reason for Study: [...] 14, 2024 Date Verified: DECEMBER 14, 2024 Plate Worker Helper E-Sig: Report: [place] STUDY: Regadenoson (Lexiscan) SPECT Tc-99m myoview [...] performed with tomographic and three-dimensional reconstructions with [employer]/CT 640 system. Exercise: Patient exercised for 6 [...] data sets in addition to the conventional oou-hduzebvsemz-kjmmfhybb images. Both filtered back projection and iterative [...] ventricular cavity. 4. SPECT images: Attenuation-corrected and ukl-fsdgwwaiiyq-rnqfwknci SPECT images were evaluated. SPECT images demonstrate [...] JEB SANTOS MD, CARDIOLOGY ATTENDING Verified by photo journalist for JEB SANTOS MD /JEB MANCILLA-D [facility] December 14, 2024 07:49 AM MYOVIEW(2): ROBBIE HUANG [id number] -1940 M Exm Date: DECEMBER 14, 2024@07:49 Req Phys: DALIA COBB Loc: [facility] 16-1 (Req'g Loc) Img Loc: NUCLEAR MEDICINE Service: [place] [address] (Case [id number] COMPLETE)MYOVIEW(2) (NM Detailed) CPT:A9502 Reason for Study: [...] 14, 2024 Date Verified: DECEMBER 14, 2024 Plate Worker Helper E-Sig: Report: [facility] [place], [place] STUDY: Regadenoson (Lexiscan) SPECT Tc-99m myoview [...] performed with tomographic and three-dimensional reconstructions with [employer] NM/CT 640 system. Exercise: Patient exercised for [...] data sets in addition to the conventional msr-utvbflnqpjb-lcgyubhgk images. Both filtered back projection and iterative [...] ventricular cavity. 4. SPECT images: Attenuation-corrected and tsv-sisvrmhndjq-fzdtbqqoi SPECT images were evaluated. SPECT images demonstrate [...] JEB SANTOS MD, CARDIOLOGY ATTENDING Verified by photo journalist for JEB SANTOS MD /JEB MANCILLA-CDD [facility] December 14, 2024 07:49 AM TC-99M X1 FROM NON -HEU SOURCE: ROBBIE HUANG [id number] -1940 M [facility] Date: DECEMBER 14, 2024@07:49 Req Phys: DALIA CBOB Loc: [facility] 16-1 (Req'g Loc) [facility] Loc: NUCLEAR MEDICINE Service: Unknown [place] [id number] (Case [id number] COMPLETE)TC-99M X1 FROM NON-HEU SOURCE (NM Detailed) [...] 14, 2024 Date Verified: DECEMBER 14, 2024 Plate Worker Helper E-Sig: Report: [place] STUDY: Regadenoson (Lexiscan) SPECT Tc-99m myoview [...] performed with tomographic and three-dimensional reconstructions with [employer]/CT 640 system. Exercise: Patient exercised for 6 [...] data sets in addition to the conventional wnx-palkrnqmxyo-vdejfkori images. Both filtered back projection and iterative [...] ventricular cavity. 4. SPECT images: Attenuation-corrected and kkg-bnfxahrdjvq-ozehadvzw SPECT images were evaluated. SPECT images demonstrate [...] JEB SANTOS MD, CARDIOLOGY ATTENDING Verified by photo journalist for JEB SANTOS MD /JEB MANCILLA-CDD [facility] December 14, 2024 07:49 AM [id number] REGADENOSON 0.1MG X1 (LEXISCAN): ROBBIE HUANG [id number] -1940 M Exm Date: DECEMBER 14, 2024@07:49 Req Phys: DALIA COBB Pat Loc: [facility] 16-1 (Req'g Loc) Img Loc: NUCLEAR MEDICINE Service: [place] [address] (Case [id number] COMPLETE)[id number] REGADENOSON 0.1MG X1 (STEPHON(NM Detailed) CPT:J2785 [...] 14, 2024 Date Verified: DECEMBER 14, 2024 Plate Worker Helper E-Sig: Report: [place] STUDY: Regadenoson (Lexiscan) SPECT Tc-99m myoview [...] performed with tomographic and three-dimensional reconstructions with [employer] NM/CT 640 system. Exercise: Patient exercised for [...] data sets in addition to the conventional klw-etyzgtnviuz-sorgzslie images. Both filtered back projection and iterative [...] ventricular cavity. 4. SPECT images: Attenuation-corrected and kpd-zwfkvgmazle-iysdktehf SPECT images were evaluated. SPECT images demonstrate [...] JEB SANTOS MD, CARDIOLOGY ATTENDING Verified by photo journalist for JEB SANTOS MD /JEB MANCILLA-CDD [facility] December 14, 2024 07:49 AM [id number] REGADENOSON 0.1MG X2 (LEXISCAN): ROBBIE HUANG MICA [id number] 1940 M Ex Date: DECEMBER 14, 2024@07:49 Req Phys: DALIA COBB Loc: [facility] 16-1 (Req'g Loc) Img Loc: NUCLEAR MEDICINE Service: [place] [address] (Case [id number] COMPLETE)[id number] REGADENOSON 0.1MG X2 (STEPHON(NM Detailed) CPT:J2785 [...] 14, 2024 Date Verified: DECEMBER 14, 2024 Plate Worker Helper E-Sig: Report: [place] STUDY: Regadenoson (Lexiscan) SPECT Tc-99m myoview [...] performed with tomographic and three-dimensional reconstructions with [employer] NM/CT 640 system. Exercise: Patient exercised for [...] data sets in addition to the conventional yvj-kkavhfhqhpo-jlcjakykj images. Both filtered back projection and iterative [...] ventricular cavity. 4. SPECT images: Attenuation-corrected and xxh-xjrfueskycw-nitrtoqqv SPECT images were evaluated. SPECT images demonstrate [...] JEB SANTOS MD, CARDIOLOGY ATTENDING Verified by photo journalist for JEB SANTOS MD /JEB MANCILLA-D [facility] December 14, 2024 07:49 AM [id number] REGADENOSON 0.1MG X3 (LEXISCAN): ROBBIE HUANG [id number] -1940 M [facility] Date: DECEMBER 14, 2024@07:49 Req Phys: DALIA COBB Loc: VETO PACT WHITNEY 16-1 (Req'g Loc) Img Loc: NUCLEAR MEDICINE Service: [place] [address] (Case [id number] COMPLETE)[id number] REGADENOSON 0.1MG X3 (STEPHON(NM Detailed) CPT:J2785 [...] 14, 2024 Date Verified: DECEMBER 14, 2024 Plate Worker Helper E-Sig: Report: [facility], [place], [place] STUDY: Regadenoson (Lexiscan) SPECT Tc-99m myoview [...] performed with tomographic and three-dimensional reconstructions with [employer] NM/CT 640 system. Exercise: Patient exercised for [...] data sets in addition to the conventional trx-maycnjotett-rwrwkaskm images. Both filtered back projection and iterative [...] ventricular cavity. 4. SPECT images: Attenuation-corrected and dxk-xakahgforxa-iltcdreyy SPECT images were evaluated. SPECT images demonstrate [...] JEB SANTOS MD, CARDIOLOGY ATTENDING Verified by photo journalist for JEB SANTOS MD /JEB MANCILLA-D [facility] December 14, 2024 07:49 AM TC-99M X2 FROM NON -HEU SOURCE: ROBBIE HUANG [id number] -1940 M Exm Date: DECEMBER 14, 2024@07:49 Req Phys: DALIA COBB Loc: VETO PACT WHITNEY 16-1 (Req'g Loc) Img Loc: NUCLEAR MEDICINE Service: [place] [address] (Case [id number] COMPLETE)TC-99M X2 FROM NON-HEU SOURCE (NM Detailed) [...] 14, 2024 Date Verified: DECEMBER 14, 2024 Plate Worker Helper E-Sig: Report: [place], [place] STUDY: Regadenoson (Lexiscan) SPECT Tc-99m myoview [...] performed with tomographic and three-dimensional reconstructions with [employer] NM/CT 640 system. Exercise: Patient exercised for [...] data sets in addition to the conventional frz-lfdgnywvqlf-rgprxbqka images. Both filtered back projection and iterative [...] ventricular cavity. 4. SPECT images: Attenuation-corrected and yjs-cpoimjxvdmw-qnoysgzmo SPECT images were evaluated. SPECT images demonstrate [...] JEB SANTOS MD, CARDIOLOGY ATTENDING Verified by photo journalist for JEB SANTOS MD /JEB MANCILLA-ISMAEL [facility] Encounter Notes: All associated encounter notes This section contains the clinical notes associated to the Encounter. 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 With the exception of Allergies, if a category is not listed below, it means there were no relevant medications for the patient. OUTPATIENT MEDICATION REVIEW Outpatient medication list prior to admission (as reported by [facility]): LOCAL ACTIVE VA MEDICATIONS: Active and Recently Outpatient Medications (including Supplies): [...] ACTIVE Indication: FOR CHOLESTEROL 6 Total Medications No Active Remote Medications for this patient INPATIENT MEDICATION REVIEW Active Inpatient Medications (including Supplies): Start Date Active Inpatient Medications Status Stop Date 1) AMLODIPINE TAB ACTIVE Start: 12/30/24 Give: 10MG PO DAILY Stop : 04/08/25 Indication: FOR BLOOD PRESSURE 2) EMPAGLIFLOZIN TAB,ORAL ACTIVE Start: 12/30/24 Give: 10MG PO QAM Stop : 04/08/25 Indication: FOR HEART FAILURE 3) HEPARIN 5,000UNITS/ML INJ,SOLN ACTIVE Start: 12/30/24 Give: 5000 UNITS/1ML SC Q8H Stop : 04/08/25 DO NOT HOLD unless ordered by provider. INR: 1.21 H (12/30/2024 07:46) Indication: FOR ANTICOAGULATION 4) METOPROLOL TARTRATE *IR* TAB ACTIVE Start: 12/30/24 Give: 12.5MG PO BID Stop : 04/08/25 Indication: FOR BLOOD PRESSURE/HEART 5) ROSUVASTATIN TAB ACTIVE Start: 12/30/24 Give: 10MG PO QHS Stop : 04/08/25 Indication: FOR CHOLESTEROL PATIENT INTERVIEW Spoke to Mr. Huang over the phone ([phone]). Pt. manages own meds and was a good historian; able to verify meds/dose schedules (confirmed Clopidogrel dose). Pt. fills most meds from [facility] in [place], [place] ([phone]). Called pharmacy and verified meds/directions (see below). Pt. reports taking all meds as directed. Pt. confirmed allergies/ADR's on file (Aspirin: hives/rash x2) and reports no new allergies. Pt. confirmed OTC products on file (see addition below). Patient reports taking the following meds/discontinued medications: -none Patient reports taking the following non-VA Medications: -Non-VA AMLODIPINE BESYLATE 10MG TAB 10MG MOUTH DAILY ACTIVE ( 12/13/24, 30D @ [facility]) -Non-VA CHOLECALCIF 25MCG (D3-1,000UNIT) TAB 1000UNIT MOUTH ACTIVE DAILY -Non-VA CLOPIDOGREL BISULFATE 75MG TAB 75MG MOUTH DAILY ACTIVE ( 12/13/24, 30D @ [facility]) -Non-VA MULTIVIT/OPHTH AREDS2/LUTE/ZEAX CAP/TAB 1 SOFTGEL ACTIVE MOUTH TWICE A DAY AFTER MEALS -Non-VA ROSUVASTATIN TAB 10MG MOUTH DAILY ACTIVE ( 12/13/24, 30D @ [facility]) -Amoxicillin 500MG po TID x7 days post dental course ( 12/26/24, 7D @ [facility]) -Ibuprofen 600MG po Q6H post dental course ( 12/26/24, 5D @ [facility]) -Levocetirizine 5MG po once daily Please Add ( 12/13/24, 30D @ [facility]) -Vit B12 1000MCG po once daily Please Add RECONCILIATION REVIEW The following discrepancies were noted: Medications not continued on admission: -Clopidogrel ([facility]) -Amoxicillin ([facility]) -Ibuprofen ([facility]) -Levocetirizine ([facility]) -Vit D3 (otc) -Vit B12 (otc) -Areds MVI (otc) Medications continued on admission with changes from outpatient regimen: -none Medication discrepancies between OPT profile and patient interview: -Amoxicillin: Pt. reports approx. 2 days of course (6 caps) remaining prior to admission. -Aspirin allergy: Pt. confirmed allergy on file (rash/hives). Reports having reaction twice many years ago . -Clopidogrel: Pt. confirmed dose (last outpat. dose Tuesday AM). New inpatient medications: -Heparin Q8H -Metoprolol Time spent reviewing chart: 45 Minutes PBM PharmD Pharmacotherapy Rem V12: Medication reconciliation (changes to active VA and non-VA medication lists to reconcile differences) Changes to medication lists made Update dose, frequency, duration and/or dosage form of medication Discontinue or remove medication Add or renew medication /jack/ ZACH NOBLE DOCK ASSOCIATE Signed: 12/31/2024 10:23 12/31/2024 ADDENDUM STATUS: COMPLETED No recommendations, pt to be d/c today. /jack/ AYSE ANDERSON, PHARM.D. CLINICAL PHARMACIST Signed: 12/31/2024 12:15 ZACH NOBLE-CDD [facility]
--- OUTSIDE RECORDS SUMMARY | 2024-12-31 07:44 | XMS_ITS | Encounter Summary ---
Author Name [facility] Organization [facility] [place] Address [address] [place] [address] Care Team Providers Care Psychopaedic Nurse Name Role Phone DALIA COBB Primary Care [...] Asif's Name Patient's Relationship to Policy Asif [facility] [place] BLUECARD MEDICARE SECONDARY (NO B EXC) TI AUTOM OTIVE - RETI Jul 25, 2018 [id number] MALUTI PERKINS SPOUSE MEDICARE (WNR) MEDICARE (M) PART B Jan 22, 2007 PART B [id number] JUSTYNA HUANG PATIENT MEDICARE (WNR) MEDICARE (M) PART A Sep 22, 2005 PART A [id number] MALUJUSTYNA TINAJERO PATIENT FOR LIFE TRICA RE FOR LIFE Jul 25, 2017 FOR LIFE [id number] ROBBIE HUANG JR PATIENT Selected Encounter This section includes the information on record at OR for the Encounter. 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 The data comes from all OR treatment facilities. Appointment Date/Time Appointment Type Appointme nt Facility Name Jan 11, 2025 10:45 AM AMBULATORY - MEDICINE [facility] Jan 17, 2025 09:30 AM [facility] NONE [facility] Jan 23, 2025 01:30 PM [facility]ONE [facility] Jan 28, 2025 01:30 PM AMBULATORY - SURGERY [facility] Jan 31, 2025 03:00 PM [facility]IC[facility] Feb 05, 2025 01:00 PM [facility]ORY - MEDICINE [facility] Feb 05, 2025 02:00 PM [facility]ORY - MEDICINE [facility] Feb 07, 2025 01:15 PM AMBULATORY - MEDICINE [facility] Feb 08, 2025 01:30 PM [facility] - NONE [facility] Mar 04, 2025 01:30 PM [facility] NONE [facility] Mar 18, 2025 01:30 PM AMBULATORY - NONE [facility] Mar 19, 2025 01:00 PM AMBULATORY - MEDICINE [facility] Apr 11, 2025 02:00 PM AMBULATORY - MEDICINE [facility] Active, Pending, and Scheduled Orders This section includes a listing of several types of active, pending, and scheduled orders, including clinic medications orders, diagnostic test orders, procedure orders and consult orders; where the start date of the order is 45 days before the date of the Encounter or 45 days after the date of theEncounter. The data comes from all [place] treatment facilities. Test Date/Time Test Type Test Details Facility Name Feb 05, 2025 02:21 PM Procedure Order CP PULMONA RY FUNCTION TEST CP PULMONARY FUNCTION TEST Proc Mailing [employer] Choice [facility] Lab Results: +/- 30 days of [...] Type Comment Jan 28, 2025 02:32 PM [facility] CREATININE URINE Specimen Type: URINE No comment entered. Ordering Provider: APARNA KING Report Released Date/Time: Oct 02, 2024 03:22 PM Reporting Lab: [address] [address] Performing Lab: [address] [address] CREATININE 92.7 mg/dL Jan 28, 2025 02:32 PM [facility] TOTAL PROTEIN URINE Specimen Type: URINE No comment entered. Ordering Provider: APARNA KING Report Released Date/Time: Oct 02, 2024 03:22 PM Reporting Lab: [address] [address] Performing Lab: [address] [address] TOTAL PROTEIN 15 mg/dL H 0-14 Jan 28, 2025 02:32 PM [facility] URINALYSIS URINE Specimen Type: URINE Comment: Microscopic not indicated Ordering Provider: APARNA KING Report Released Date/Time: Oct 02, 2024 03:22 PM Reporting Lab: [place] [address] Performing Lab: [place] [address] URINE COLOR Light Yellow Colorless-Yello w APPEARANCE Clear Clear UROBILINOGEN Normal mg/dL Normal URINE BLOOD Negative Negative URINE BILIRUBIN Negative Negative URINE KETONES Negative mg/dL Negative URINE PROTEIN Negative mg/dL Negative-Tr rachell URINE PH 5.5 4.5-8.0 URINE NITRITE Negative Negative URINE LEUKOCYTE EST Negative Negative SPECIFIC GRAVITY 1.019 1.005-1.030 URINE GLUCOSE >1000 mg/dL H Negative Jan 28, 2025 02:21 PM [facility] 25-OH VITAMIN D SERUM Specime n Type: [...] Oct 02, 2024 03:22 PM Reporting Lab: [place] [address] Performing Lab: [place] [address] 25-OH VITAMIN D 40.7 ng/mL 20.0-50.0 Jan 28, 2025 02:21 PM [facility] PTH INTACT (MCCALL) PLASMA Spe cimen Type: [...] Oct 02, 2024 03:22 PM Reporting Lab: [place] [phone] Performing Lab: [address] [address] PTH INTACT (MCCALL) 130.0 pg/mL H 8.7-77.1 Jan 28, 2025 02:21 PM [facility] CBC/PLT BLOOD Specimen Type: BLOOD No comment entered. Ordering Provider: APARNA KING Report Released Date/Time: Oct 02, 2024 03:22 PM Reporting Lab: [address] [address] Performing Lab: [address] [address] WBC 6.5 10*3/uL 5.0-10.0 RBC 4.18 10*6/uL L 4.6-6.2 HGB 12.4 g/dL L 14.0-18.0 HCT 39.2 L 42.0-52.0 MCV 93.8 fL 80.0-94.0 MCH 29.7 pg 27.0-31.0 MCHC 31.6 g/dL L 32.0-36.0 PLT 212 10*3/uL 150-450 MPV 10.7 fL 9.0-13.1 RDW 13.9 11.0-16.0 NRBC 0.0 0.0-0.0 Jan 28, 2025 02:20 PM [facility] PHOSPHORUS PLASMA Specimen Type: PLASM A Comment: [...] <15 G5 Kidney failure Ordering Provider: KAMI MCGINNIS Report Released Date/Time: Jan 17, 2025 09:57 AM Reporting Lab: [address] [address] Performing Lab: [address] [address] PHOSPHORUS 3.5 mg/dL 2.3-4.7 Jan 28, 2025 02:20 PM [facility] ALBUMIN PLASMA Specimen Type: PLASM A Comment: [...] <15 G5 Kidney failure Ordering Provider: KAMI MCGINNIS Report Released Date/Time: Jan 17, 2025 09:57 AM Reporting Lab: [address] [address] Performing Lab: [address] [address] ALBUMIN 4.1 g/dL 3.5-5.2 Jan 28, 2025 02:20 PM [facility] Specimen Type: PLASM A [...] <15 G5 Kidney failure Ordering Provider: KAMI MCGINNIS Report Released Date/Time: Jan 17, 2025 09:57 AM Reporting Lab: [address] [address] Performing Lab: [address] [address] CREATININE 2.55 mg/dL H 0.72-1.25 UREA NITROGEN 38 mg/dL H 9-25 GLUCOSE 91 mg/dL 74-100 SODIUM 142 mmol/L 136-145 POTASSIUM 4.5 mmol/L 3.5-5.1 CHLORIDE 109 mmol/L H 98-107 CO2 25 mmol/L 22-29 CALCIUM 8.8 mg/dL 8.4-10.2 ANION GAP 8 meq/L 3-19 eGFR (CKD-EPI) Jan 11, 2025 09:53 AM [facility] PANEL 1 PLASMA Specimen Type: PLASM A [...] Ordering Provider: DALIA COBB Report Released Date/Time: Jan 08, 2025 02:55 PM Reporting Lab: [address] [address] Performing Lab: [address] [address] CREATININE 2.62 mg/dL H 0.72-1.25 UREA NITROGEN 46 mg/dL H 9-25 GLUCOSE 105 mg/dL H 74-100 SODIUM 143 mmol/L 136-145 POTASSIUM 4.7 mmol/L 3.5-5.1 CHLORIDE 107 mmol/L 98-107 CO2 25 mmol/L 22-29 CALCIUM 9.3 mg/dL 8.4-10.2 ANION GAP 11 meq/L 3-19 eGFR (CKD-EPI) 23 Dec 31, 2024 12:02 PM [facility] GLUCOSE-HAND MONITOR CAPILLARY Specime n Type: CAPILLARY Comment: Test performed by: [id number] Meter #: [id number] Ordering Provider: CHLOE SEVERINO Report Released Date/Time: Dec 31, 2024 12:58 PM Reporting Lab: [address] [address] Performing Lab: [address] [address] GLUCOSE-HAND MONITOR 129 mg/dL H 71-99 Dec 31, 2024 07:50 AM [facility] PANEL 1 PLASMA Specimen Type: PLASM [...] Dec 30, 2024 08:23 AM Reporting Lab: [address] [address] Performing Lab: [place] [phone] CREATININE 2.04 mg/dL H 0.72-1.25 UREA NITROGEN 31 mg/dL H 9-25 GLUCOSE 94 mg/dL 74-100 SODIUM 138 mmol/L 136-145 POTASSIUM 4.4 mmol/L 3.5-5.1 CHLORIDE 105 mmol/L 98-107 CO2 25 mmol/L 22-29 CALCIUM 8.9 mg/dL 8.4-10.2 ANION GAP 8 meq/L 3-19 eGFR (CKD-EPI) 32 Dec 31, 2024 07:50 AM [facility] CBC/PLT BLOOD Specimen Type : BLOOD No comment entered. Ordering Provider: CHLOE SEVERINO Report Released Date/Time: Dec 30, 2024 08:23 AM Reporting Lab: [address] [address] Performing Lab: [place] [phone] WBC 8.2 10*3/uL 5.0-10.0 RBC 4.03 10*6/uL L 4.6-6.2 HGB 12.0 g/dL L 14.0-18.0 HCT 37.2 L 42.0-52.0 MCV 92.3 fL 80.0-94.0 MCH 29.8 pg 27.0-31.0 MCHC 32.3 g/dL 32.0-36.0 PLT 191 10*3/uL 150-450 MPV 10.5 fL 9.0-13.1 RDW 13.8 11.0-16.0 NRBC 0.0 0.0-0.0 Dec 31, 2024 06:38 AM [facility] GLUCOSE-HAND MONITOR CAPILLARY Specime n Type: CAPILLARY Comment: Test performed by: [id number] Meter #: [id number] Ordering Provider: CHLOE SEVERINO Report Released Date/Time: Dec 31, 2024 07:17 AM Reporting Lab: [place] [phone] Performing Lab: [place] [phone] GLUCOSE-HAND MONITOR 99 mg/dL 71-99 Dec 30, 2024 08:10 PM [facility] GLUCOSE-HAND MONITOR CAPILLARY Specime n Type: CAPILLARY Comment: Test performed by: [id number] Meter #: [id number] Ordering Provider: CHLOE SEVERINO Report Released Date/Time: Dec 30, 2024 09:15 PM Reporting Lab: [place] [phone] Performing Lab: [place] [phone] GLUCOSE-HAND MONITOR 124 mg/dL H -99 Dec 30, 2024 04:21 PM [facility] GLUCOSE-HAND MONITOR CAPILLARY Specime n Type: CAPILLARY Comment: Test performed by: [id number] Meter #: [id number] Ordering Provider: CHLOE SVEERINO Report Released Date/Time: Dec 30, 2024 04:39 PM Reporting Lab: [place] [phone] Performing Lab: [place] [phone] GLUCOSE-HAND MONITOR 92 mg/dL 71-99 Dec 30, 2024 11:54 AM [facility] MRSA SURVL NARES DNA NARES Specime [...] Dec 30, 2024 10:43 AM Reporting Lab: [address] [address] Performing Lab: [place] [phone] MRSA SURVL NARES DNA Negative Negative Dec 30, 2024 11:39 AM [facility] GLUCOSE-HAND MONITOR CAPILLARY Specime n Type: CAPILLARY Comment: Test performed by: [id number] Meter #: [id number] Ordering Provider: CHLOE SEVERINO Report Released Date/Time: Dec 30, 2024 11:56 AM Reporting Lab: [address] [address] Performing Lab: [place] [phone] GLUCOSE-HAND MONITOR 115 mg/dL H 71-99 Dec 30, 2024 07:46 AM [facility] CODE / FILTRATION SUPERVISOR VENOUS BLOOD GAS VENOUS BLOOD Specimen Type: VENOUS BLOOD Comment: Collection Time: 12-30-2024 @ 07:46 Ordering Provider: KEYANNA EDMONDSON Report Released Date/Time: Dec 30, 2024 07:54 AM Reporting Lab: [place] [phone] Performing Lab: [place] [phone] .VpCO2 46 mm[Hg] 41-51 .VpH 7.34 7.33-7.43 Dec 30, 2024 07:46 AM [facility] CODE / FILTRATION SUPERVISOR BLUE TOP PLASMA Specimen Type: PLASMA No comment entered. Ordering Provider: KEYANNA EDMONDSON Report Released Date/Time: Dec 30, 2024 07:53 AM Reporting Lab: [address] [address] Performing Lab: [address] [address] PT PATIENT 15.1 s H 11.7-14.4 INTERNATIONAL NORMALIZED RATIO 1.21 H 0 .87-1.14 PTT PATIENT 32.2 s 24.0-33.2 Dec 30, 2024 07:46 AM [facility] CODE / FILTRATION SUPERVISOR GREEN TOP PLASMA Specimen Type: ALFREDITO SMA [...] Dec 30, 2024 07:53 AM Reporting Lab: [address] [address] Performing Lab: [address] [address] IONIZED CALCIUM 1.13 mmol/L L 1.15-1.29 CREATININE [...] 6 4-35 Dec 30, 2024 07:46 AM [facility] CODE / FILTRATION SUPERVISOR BACH TOP PLASMA Specimen Type: PLASMA No comment entered. Ordering Provider: KEYANNA EDMONDSON Report Released Date/Time: Dec 30, 2024 07:53 AM Reporting Lab: [place] [phone] Performing Lab: [place] [phone] LACTIC ACID 0.9 mmol/L 0.5-2.2 Dec 30, 2024 07:46 AM [facility] CODE / FILTRATION SUPERVISOR LAVENDER TOP BLOOD Spec imen Type: BLOOD No comment entered. Ordering Provider: KEYANNA EDMONDSON Report Released Date/Time: Dec 30, 2024 07:53 AM Reporting Lab: [address] [address] Performing Lab: [place] [phone] WBC 10.2 10*3/uL H 5.0-10.0 RBC 4.04 10*6/uL L 4.6-6.2 HGB 12.3 g/dL L 14.0-18.0 HCT 37.6 L 42.0-52.0 MCV 93.1 fL 80.0-94.0 MCH 30.4 pg 27.0-31.0 MCHC 32.7 g/dL 32.0-36.0 PLT 187 10*3/uL 150-450 MPV 10.2 fL 9.0-13.1 RDW 13.8 11.0-16.0 NRBC 0.0 0.0-0.0 December 03, 2024 02:03 PM [facility] PROTEIN ELECTROPHORESIS URINE Specimen Type: URINE No comment entered. Ordering Provider: DALIA COBB Report Released Date/Time: December 03, 2024 01:24 PM Reporting Lab: [address] [address] Performing Lab: [address] [address] TOTAL PROTEIN 17.0 mg/dL Not Estab. .ALBUMIN ELEC 29.4 .ALPHA 1 ELEC 5.2 .ALPHA 2 ELEC 21.5 .BETA ELEC 19.7 .GAMMA ELEC 24.2 .M-SPIKE Not Observed Not Observed December 03, 2024 02:03 PM [facility] TOTAL PROTEIN URINE Specimen Type: URINE No comment entered. Ordering Provider: DALIA COBB Report Released Date/Time: December 03, 2024 01:24 PM Reporting Lab: [address] Performing Lab: [place] [phone] TOTAL PROTEIN 16 mg/dL H 0-14 December 03, 2024 02:03 PM [facility] CREATININE URINE Specimen Type: URINE No comment entered. Ordering Provider: DALIA COBB Report Released Date/Time: December 03, 2024 01:24 PM Reporting Lab: [place] [phone] Performing Lab: [place] [phone] CREATININE 63.6 mg/dL December 03, 2024 02:03 PM [facility] URINALYSIS URINE Specimen Type: URINE Comment: Microscopic not indicated Ordering Provider: DALIA COBB Report Released Date/Time: December 03, 2024 01:29 PM Reporting Lab: [address] [address] Performing Lab: [place] [phone] URINE COLOR Light Yellow Colorless-Yello w APPEARANCE Clear Clear UROBILINOGEN Normal mg/dL Normal URINE BLOOD Negative Negative URINE BILIRUBIN Negative Negative URINE KETONES Negative mg/dL Negative URINE PROTEIN Negative mg/dL Negative-Tr rachell URINE PH 5.0 4.5-8.0 URINE NITRITE Negative Negative URINE LEUKOCYTE EST Negative Negative SPECIFIC GRAVITY 1.014 1.005-1.030 URINE GLUCOSE >1000 mg/dL H Negative December 03, 2024 01:45 PM [facility] ANTI-NUCLEAR Ab SERUM Specimen Type: SERUM Comment: Atypical speckled resembling DFS (Dense-Fine Speckled. The DFS pattern has a low prevalence in systemic autoimmune rheumatic diseases. The clinical association remains unclear. Due to its close resemblance to other patterns of clinical relevance, (i.e. Homogeneous, speckled, and mixed patterns) follow-up testing may be recommended. ANTI-NUCLEAR Ab reported incorrectly as Atypical Speckled by [[id number]]. Changed to 1:320 Atypical Speckled on December 06, 2024@12:59 by [[id number]]. Ordering Provider: DALIA COBB Report Released Date/Time: December 03, 2024 01:38 PM Reporting Lab: [address] [address] Performing Lab: [address] [address] ANTI-NUCLEAR Ab 1:320 Atypical Speckled <1:80 December 03, 2024 01:45 PM [facility] (SERUM) SERUM Specimen Type: SERUM Comment: BNP results less than or equal to 100 pg/ml are sales representative gas service of normal values in patients without CHF. BNP results greater than 100 pg/ml are considered abnormal and suggestive of CHF. Higher BNP concentrations in the first 72 hours after Acute Coronary Syndrome are associated with an increased risk of , myocardial infarction and CHF. Ordering Provider: DALIA COBB Report Released Date/Time: December 03, 2024 01:24 PM Reporting Lab: [address] [address] Performing Lab: [address] [address] .ALBUMIN ELEC 3.6 g/dL 2.9-4.4 .ALPHA 1 [...] 03, 2024 01:45 PM [facility] JORDAN SCREEN SERUM Specimen Type: SERUM No comment entered. Ordering Provider: DALIA COBB Report Released Date/Time: December 03, 2024 01:38 PM Reporting Lab: [address] [address] Performing Lab: [address] [address] JORDAN SCREEN Negative Negative December 03, 2024 01:45 PM [facility] BNP (BetterCloud) PLASMA Specimen Type: PLASMA Comment: BNP results less than or equal to 100 pg/ml are sales representative gas service of normal values in patients without CHF. BNP results greater than 100 pg/ml are considered abnormal and suggestive of CHF. Higher BNP concentrations in the first 72 hours after Acute Coronary Syndrome are associated with an increased risk of , myocardial infarction and CHF. Ordering Provider: DALIA COBB Report Released Date/Time: December 03, 2024 01:24 PM Reporting Lab: [address] [address] Performing Lab: [address] [address] BNP (MCCALL) 225 pg/mL H 0-100 December 03, 2024 01:45 PM [facility] CK TOTAL PLASMA Specimen Type: PLASM A [...] December 03, 2024 01:33 PM Reporting Lab: [address] [address] Performing Lab: [address] [address] CK TOTAL 76 U/L 30-200 December 03, 2024 01:45 PM [facility] CBC/PLT BLOOD Specimen Type: BLOOD No comment entered. Ordering Provider: DALIA COBB Report Released Date/Time: December 03, 2024 01:33 PM Reporting Lab: [address] [address] Performing Lab: [address] [address] WBC 5.6 10*3/uL 5.0-10.0 RBC 4.24 10*6/uL L 4.6-6.2 HGB 12.8 g/dL L 14.0-18.0 HCT 39.4 L 42.0-52.0 MCV 92.9 fL 80.0-94.0 MCH 30.2 pg 27.0-31.0 MCHC 32.5 g/dL 32.0-36.0 PLT 248 10*3/uL 150-450 MPV 10.2 fL 9.0-13.1 RDW 14.2 11.0-16.0 NRBC 0.0 0.0-0.0 December 03, 2024 01:45 PM [facility] PANEL 5 PLASMA Specimen Type: PLASM A [...] December 03, 2024 01:24 PM Reporting Lab: [address] [address] Performing Lab: [place] [phone] CREATININE 2.05 mg/dL H 0.72-1.25 UREA NITROGEN [...] 03, 2024 01:45 PM [facility] DIFF BLOOD Specimen Type: BLOOD No comment entered. Ordering Provider: DALIA COBB Report Released Date/Time: December 03, 2024 01:33 PM Reporting Lab: [address] [address] Performing Lab: [place] [phone] A-LYMPH % 22.1 L 24.0-44.0 A-MONO % [...] Dec 31, 2024 01:16 PM 94 [facility] Dec 31, 2024 11:10 AM 98.2 56 116/69 18 97 0 [facility] Dec 31, 2024 10:59 AM 179.1 29 [facility] Dec 31, 2024 10:28 AM 0 [facility] Dec 31, 2024 08:09 AM 97.9 69 124/76 18 91 [facility] Social History: Smoking Status (Most current) and [...] 10, 2024 02:00 PM VA-TOBACCO NEVER USED [facility] Tobacco Use History This section includes a history of the smoking, or tobacco-related health factors, that were collected on or before the date of the Encounter. The data comes from the OR facility where the Encounter took place. Date/Time Smoking Status/Tobacco Use Comment F acgenet May 19, 2017 03:22 AM NON-TOBACCO USE INPATIENT [facility] Sep 07, 2016 02:41 AM NON-TOBACCO USE INPATIENT [facility] Apr 21, 2004 08:29 AM HF V9 CURRENT NON-SMOKER quit smoking about 30 yrs ago [facility] Sep 06, 2002 02:26 PM HF V9 CURRENT NON-SMOKER QUIT SMOKING ABOUT 31 YRS AGO [facility] Radiology Reports: +/- 30 days [...] VENOUS DUPLEX LOWE R EXT BILAT: ROBBIE HUANG [id number] -1940 M Exm Date: JAN 28, 2025@13:17 Req Phys: DALIA COBB Pat Loc: [facility] PACT [place] 16-1 (Req'g Loc) Img Loc: [facility] Service: Unknown (Case [id number] COMPLETE) VENOUS DUPLEX LOWER EXT BILAT (VAS Detailed) CPT:05777 Reason for Study: SEE CLINICAL HISTORY Clinical History: Venous Duplex for Valvular Competence/Venous Insufficiency: Chronic venous insufficiency Report Status: Verified Date Reported: JAN 29, 2025 Date Verified: JAN 29, 2025 Supervisor Production Managing E-Sig: Report: EXAM: VENOUS DUPLEX EXAM OF [...] Staff: NICOLASA FLORES, ATTENDING PHYSICIAN Verified by legal records clerk for NICOLASA FLORES /NICOLASA [facility] Jan 28, 2025 01:17 PM SEGMENTAL PRESSURE S, LOWER EXT([place]) UNILAT: ROBBIE HUANG [id number] -1940 M Exm Date: JAN 28, 2025@13:17 Req Phys: DALIA COBB R Pat Loc: [facility] PACT [place] 16-1 (Req'g Loc) Img Loc: [facility] [place] Service: Unknown (Case [id number] COMPLETE) SEGMENTAL PRESSURES, LOWER EXT(AB(VAS Detailed) CPT:37214 Reason for Study: SEE CLINICAL HISTORY Clinical History: [place]'s/Segs Indications: Other: BLE edema, r/o PVD for compression tx. Report Status: Verified Date Reported: JAN 29, 2025 Date Verified: JAN 29, 2025 Supervisor Production Managing E-Sig: Report: LE segmental pressures TECHNIQUE: Continuous wave Doppler waveforms are obtained from pedal vessels, segmental pressures are measured at rest. Photoplethysmographic waveforms are obtained of the digits with pressure measurement. COMPARISON: No prior FINDINGS: Right: Right brachial arterial pressure is 134 mmHg. Multiphasic waveforms are noted in the right posterior tibial and right dorsalis pedis arteries. ABIs demonstrate calcification with right SALES REPRESENTATIVE SALES MANAGER 1.44, left DPA 1.28. Right toe pressure is 115 mmHg. Left: Left brachial arterial pressure is 134 mmHg. Multiphasic waveforms are noted in the left posterior tibial and left dorsalis pedis arteries. ABIs demonstrate calcification with right SALES REPRESENTATIVE SALES MANAGER 1.44, left DPA 1.21. Left toe pressure [...] Staff: NICOLASA FLORES, ATTENDING PHYSICIAN Verified by legal records clerk for [facility]OLASA [facility] Dec 30, 2024 01:13 AM [id number] RADIOLOGY EX AM PERF/INTER BY OTHER FACILITY: ROBBIE HUANG [id number] -1940 M Exm Date: DEC 30, 2024@01:13 Req Phys: ADLIA COBB Loc: [facility]ETO X-RAY/ROUTINE/CDD/NC (Req' Img Loc: OUTSIDE2 LD RAD Service: Unknown (Case [id number] COMPLETE) [id number] RADIOLOGY EXAM PERF/INTER B(RAD Detailed) CPT:48737 Reason for Study: Exam imported from outside Clinical History: Original Data for Imported Study Patient Name: ROBBIE HUANG Date: 1940 Sex: M Study Date: 12/30/24 Study Time: 01:13:02 Study Description: XR CHEST PORTABLE Referring Physician: RICHARD CHAVES Series 1: 1 CR file Acquisition site: [facility] Report Status: Electronically Filed Date Reported: JAN 23, 2025 Report: Electronically generated report for outside study. Impression: Electronically generated report for outside study. Primary Diagnostic Code: VERIFIED BY: / *ELECTRONICALLY FILED* [facility] December 14, 2024 07:49 AM CARD. STRESS TEST W/TREADMILL/...: ROBBIE HUANG [id number] -1940 M Exm Date: DECEMBER 14, 2024@07:49 Req Phys: DALIA COBB Loc: [facility] PACT [facility]ITNEY 16-1 (Req'g Loc) Img Loc: NUCLEAR MEDICINE Service: [place] [address] (Case [id number] COMPLETE)CARD. STRESS TEST W/TREADMILL/...(NM Detailed) CPT:31007 Reason for Study: SEE CLINICAL HISTORY Clinical History: [facility]iology approval by: [facility] SERVICE CONNECTED? No Active Outpatient Medications (including [...] 14, 2024 Date Verified: DECEMBER 14, 2024 Supervisor Production Managing E-Sig: Report: STUDY: GXT with vasodilator REPORT: [...] Staff: CHAO ORR APRN, Cardiology Verified by legal records clerk for CHAO ORR /[facility] December 14, 2024 07:49 AM [id number] REGADENOSON 0.1MG X4 (LEXISCAN): ROBBIE HUANG MICA [id number] -1940 M Exm Date: DECEMBER 14, 2024@07:49 Req Phys: DALIA COBB Loc: [facility] 16-1 (Req'g Loc) Img Loc: NUCLEAR MEDICINE Service: [place] [address] (Case [id number] COMPLETE)[id number] REGADENOSON 0.1MG X4 (STEPHON(NM Detailed) CPT:J2785 Reason for Study: SEE CLINICAL HISTORY Clinical History: Cardiology approval by: [facility] SERVICE CONNECTED? No Active Outpatient Medications (including [...] 14, 2024 Date Verified: DECEMBER 14, 2024 Supervisor Production Managing E-Sig: Report: STUDY: GXT with vasodilator REPORT: [...] Staff: CHAO ORR APRN, Cardiology Verified by legal records clerk for CHAO ORR /CHAO GIRON-CDD [facility] December 14, 2024 07:49 AM CARD. STRESS TEST W/TREADMILL/...: ROBBIE HUANGAlex [id number] -1940 M Exm Date: DECEMBER 14, 2024@07:49 Req Phys: DALIA COBB Loc: VETO PACT WHITNEY 16-1 (Req'g Loc) Img Loc: NUCLEAR MEDICINE Service: [place] [address] (Case [id number] COMPLETE)CARD. STRESS TEST W/TREADMILL/...(NM Detailed) CPT:32304 Proc Modifiers : GXT Reason for Study: [...] 14, 2024 Date Verified: DECEMBER 14, 2024 Supervisor Production Managing E-Sig: Report: [place], [place] STUDY: Regadenoson (Lexiscan) SPECT Tc-99m myoview [...] performed with tomographic and three-dimensional reconstructions with SemiNex/CT 640 system. Exercise: Patient exercised for 6 [...] data sets in addition to the conventional eth-lxjsasozxyg-wzoxiayea images. Both filtered back projection and iterative [...] ventricular cavity. 4. SPECT images: Attenuation-corrected and hrb-aljxalimsbg-kgoffwaee SPECT images were evaluated. SPECT images demonstrate [...] JEB SANTOS MD, CARDIOLOGY ATTENDING Verified by legal records clerk for JEB SANTOS MD /JEB MANCILLA-D [facility] December 14, 2024 07:49 AM MYOVIEW(1): ROBBIE HUANG [id number] -1940 M Ex Date: DECEMBER 14, 2024@07:49 Req Phys: DALIA COBB [facility] (Req'g Loc) Img Loc: NUCLEAR MEDICINE Service: [place] [address] (Case [id number] COMPLETE)MYOVIEW(1) (NM Detailed) CPT:A9502 Reason for Study: [...] 14, 2024 Date Verified: DECEMBER 14, 2024 Supervisor Production Managing E-Sig: Report: [place], [place] STUDY: Regadenoson (Lexiscan) SPECT Tc-99m myoview [...] performed with tomographic and three-dimensional reconstructions with Opsens NM/CT 640 system. Exercise: Patient exercised for [...] data sets in addition to the conventional xqu-yyiekasayte-keiohoafm images. Both filtered back projection and iterative [...] ventricular cavity. 4. SPECT images: Attenuation-corrected and gfl-ehtcvbwblcu-cbzizamlr SPECT images were evaluated. SPECT images demonstrate [...] JEB SANTOS MD, CARDIOLOGY ATTENDING Verified by legal records clerk for JEB SANTOS MD /JEB MANCILLA-CDD [facility] December 14, 2024 07:49 AM MYOVIEW(2): ROBBIE HUANG MICA [id number] -1940 M [facility] Date: DECEMBER 14, 2024@07:49 Req Phys: DALIA COBB Loc: [facility] WHITNEY 16-1 (Req'g Loc) Img Loc: NUCLEAR MEDICINE Service: [place] [address] (Case [id number] COMPLETE)MYOVIEW(2) (NM Detailed) CPT:A9502 Reason for Study: SEE CLINICAL HISTORY Clinical History: Cardiology approval by: [facility] SERVICE CONNECTED? No Active Outpatient Medications (including [...] 14, 2024 Date Verified: DECEMBER 14, 2024 Supervisor Production Managing E-Sig: Report: [place], [place] STUDY: Regadenoson (Lexiscan) SPECT Tc-99m myoview [...] performed with tomographic and three-dimensional reconstructions with Opsens NM/CT 640 system. Exercise: Patient exercised for [...] data sets in addition to the conventional ogz-yrejiqvpaof-cihnzttmp images. Both filtered back projection and iterative [...] ventricular cavity. 4. SPECT images: Attenuation-corrected and bvp-wxwbqolneia-xvmrjgdxv SPECT images were evaluated. SPECT images demonstrate [...] JEB SANTOS MD, CARDIOLOGY ATTENDING Verified by legal records clerk for JEB SANTOS MD /JEB MANCILLA-CDD [facility] December 14, 2024 07:49 AM 25864(D) MYOCARDIA L SPECT(MULTIPLE): ROBBIE HUANG [id number] -1940 M Exm Date: DECEMBER 14, 2024@07:49 Req Phys: DALIA COBB Pat Loc: VETO PACT WHITNEY 16-1 (Req'g Loc) Img Loc: NUCLEAR MEDICINE Service: [place] [address] (Case [id number] COMPLETE)20677(D) MYOCARDIAL SPECT(MULTIPL(NM Detailed) CPT:98538 Proc Modifiers : Lexiscan (Regadenoson) CPT Modifiers [...] 14, 2024 Date Verified: DECEMBER 14, 2024 Supervisor Production Managing E-Sig: Report: [facility], [place], [place] STUDY: Regadenoson (Lexiscan) SPECT Tc-99m myoview [...] performed with tomographic and three-dimensional reconstructions with Opsens NM/CT 640 system. Exercise: Patient exercised for [...] data sets in addition to the conventional djc-nxbzairbjmh-cxpxyhyco images. Both filtered back projection and iterative [...] ventricular cavity. 4. SPECT images: Attenuation-corrected and tps-igatyweolby-ckaahnewz SPECT images were evaluated. SPECT images demonstrate [...] JEB SANTOS MD, CARDIOLOGY ATTENDING Verified by legal records clerk for JEB SANTOS MD /JEB MANCILLA-CDD [facility] December 14, 2024 07:49 AM [id number] REGADENOSON 0.1MG X1 (LEXISCAN): ROBBIE HUANG [facility] [id number] -1940 M Ex Date: DECEMBER 14, 2024@07:49 Req Phys: DALIA COBB Loc: VETO PACT WHITNEY 16-1 (Req'g Loc) [facility] Loc: NUCLEAR MEDICINE Service: Unknown [place] [id number] (Case [id number] COMPLETE)[id number] REGADENOSON 0.1MG X1 (STEPHON(NM Detailed) CPT:J2785 Reason for Study: SEE CLINICAL HISTORY Clinical History: Cardiology approval by: [facility] SERVICE CONNECTED? No Active Outpatient Medications (including [...] 14, 2024 Date Verified: DECEMBER 14, 2024 Supervisor Production Managing E-Sig: Report: [place], [place] STUDY: Regadenoson (Lexiscan) SPECT Tc-99m myoview [...] performed with tomographic and three-dimensional reconstructions with Opsens NM/CT 640 system. Exercise: Patient exercised for [...] data sets in addition to the conventional ezq-bjmzialqgaz-dcikdfjjv images. Both filtered back projection and iterative [...] ventricular cavity. 4. SPECT images: Attenuation-corrected and vdk-iwtzcahthdt-trdjvdtcb SPECT images were evaluated. SPECT images demonstrate [...] JEB SANTOS MD, CARDIOLOGY ATTENDING Verified by legal records clerk for JEB SANTOS MD /JEB MANCILLA-CDD [facility] December 14, 2024 07:49 AM TC-99M X1 FROM NON -HEU SOURCE: ROBBIE HUANG [id number] -1940 M Exm Date: DECEMBER 14, 2024@07:49 Req Phys: DALIA COBB Pat Loc: VETO PACT WHITNEY 16-1 (Req'g Loc) Img Loc: NUCLEAR MEDICINE Service: [place] [address] (Case [phone] COMPLETE)TC-99M X1 FROM NON-HEU SOURCE (NM Detailed) [...] 14, 2024 Date Verified: DECEMBER 14, 2024 Supervisor Production Managing E-Sig: Report: [facility], [place], [place] STUDY: Regadenoson (Lexiscan) SPECT Tc-99m myoview [...] performed with tomographic and three-dimensional reconstructions with Opsens NM/CT 640 system. Exercise: Patient exercised for [...] data sets in addition to the conventional mqv-vjkpzkyfyoe-wnfjqjqka images. Both filtered back projection and iterative [...] ventricular cavity. 4. SPECT images: Attenuation-corrected and cdm-hfjiaelphgg-rchottxmi SPECT images were evaluated. SPECT images demonstrate [...] JEB SANTOS MD, CARDIOLOGY ATTENDING Verified by legal records clerk for JEB SANTOS MD /JEB MANCILLA-CDD [facility] December 14, 2024 07:49 AM [id number] REGADENOSON 0.1MG X2 (LEXISCAN): ROBBIE HUANG [id number] -1940 M Exm Date: DECEMBER 14, 2024@07:49 Req Phys: DALIA COBB Loc: VETO PACT WHITNEY 16-1 (Req'g Loc) Img Loc: NUCLEAR MEDICINE Service: Unknown [place] [id number] (Case [id number] COMPLETE)[id number] REGADENOSON 0.1MG X2 (STEPHON(NM Detailed) CPT:J2785 [...] 14, 2024 Date Verified: DECEMBER 14, 2024 Supervisor Production Managing E-Sig: Report: [facility] [place], [place] STUDY: Regadenoson (Lexiscan) SPECT Tc-99m myoview [...] performed with tomographic and three-dimensional reconstructions with Opsens NM/CT 640 system. Exercise: Patient exercised for [...] data sets in addition to the conventional ucx-zcsmxlfjajv-itvbdjqiz images. Both filtered back projection and iterative [...] ventricular cavity. 4. SPECT images: Attenuation-corrected and vqi-kylzecxdhfl-nhxibyups SPECT images were evaluated. SPECT images demonstrate [...] JEB SANTOS MD, CARDIOLOGY ATTENDING Verified by legal records clerk for JEB SANTOS MD /JEB MANCILLA-CDD [facility] December 14, 2024 07:49 AM [id number] REGADENOSON 0.1MG X3 (LEXISCAN): ROBBIE HUANGALEM [id number] -1940 M Ex Date: DECEMBER 14, 2024@07:49 Req Phys: DALIA COBB [facility] (Req'g Loc) Img Loc: NUCLEAR MEDICINE Service: [place] [address] (Case [id number] COMPLETE)[id number] REGADENOSON 0.1MG X3 (STEPHON(NM Detailed) CPT:J2785 [...] 14, 2024 Date Verified: DECEMBER 14, 2024 Supervisor Production Managing E-Sig: Report: [facility] [place], [place] STUDY: Regadenoson (Lexiscan) SPECT Tc-99m myoview [...] performed with tomographic and three-dimensional reconstructions with Opsens NM/CT 640 system. Exercise: Patient exercised for [...] data sets in addition to the conventional pmt-dnjwahkfxeu-deeodsnvb images. Both filtered back projection and iterative [...] ventricular cavity. 4. SPECT images: Attenuation-corrected and ctt-bnwgdhelhpv-wixatllpn SPECT images were evaluated. SPECT images demonstrate [...] JEB SANTOS MD, CARDIOLOGY ATTENDING Verified by legal records clerk for JEB SANTOS MD /JEB MANCILLA-CDD [facility] December 14, 2024 07:49 AM TC-99M X2 FROM NON -HEU SOURCE: ROBBIE HUANG [id number] -1940 M Exm Date: DECEMBER 14, 2024@07:49 Req Phys: DALIA COBB Loc: VETO PACT WHITNEY 16-1 (Req'g Loc) Img Loc: NUCLEAR MEDICINE Service: [place] [address] (Case [id number] COMPLETE)TC-99M X2 FROM NON-HEU SOURCE (NM Detailed) [...] 14, 2024 Date Verified: DECEMBER 14, 2024 Supervisor Production Managing E-Sig: Report: [place] STUDY: Regadenoson (Lexiscan) SPECT Tc-99m myoview [...] performed with tomographic and three-dimensional reconstructions with SemiNex/CT 640 system. Exercise: Patient exercised for 6 [...] data sets in addition to the conventional twr-epfdrxwasii-vhzeifasj images. Both filtered back projection and iterative [...] ventricular cavity. 4. SPECT images: Attenuation-corrected and iwh-dblrjvrubkg-qyxsyywwk SPECT images were evaluated. SPECT images demonstrate [...] JEB SANTOS MD, CARDIOLOGY ATTENDING Verified by legal records clerk for JEB SANTOS MD /JEB [facility]CILLA-[facility] Encounter Notes: All associated encounter notes This section contains the clinical notes associated to the Encounter. Date/Time Encounter Note(s) Provider Source Dec 31, 2024 12:41 PM CARDIOLOGY CONSULT : LOCAL TITLE: EKG-INTERPRETATION ONLY CONSULT STANDARD TITLE: CARDIOLOGY CONSULT DATE OF NOTE: DEC 31, 2024@12:41:05 ENTRY DATE: DEC 31, 2024@12:41:05 AUTHOR: CLINICAL,DEVICE PRO EXP COSIGNER: URGENCY: STATUS: COMPLETED DOCUMENT IN VISTA IMAGING SEE FULL REPORT IN VISTA IMAGING SIGNATURE NOT REQUIRED SEE SIGNATURE IN VISTA IMAGING ([employer] EKG) AUTO-INSTRUMENT DIAGNOSIS Procedure: 87214 12 Lead ECG Release Status: Released Off-Line Verified Date Verified: Dec 31, 2024@12:40:59 99127.2 Ventricular Rate: 78 BPM 92743.3 Atrial Rate: 78 BPM 37106.4 P-R Interval: 198 ms 45043.5 QRS Duration: 170 ms 73428.6 Q-T Interval: 434 ms 01213 QTC Calculation(Bazett)494 ms 69391.12 Calculated P Ell[place]: 34 degrees 44413.13 Calculated R [place]: -56 degrees 76412.14 Calculated T Ellsworth: 10 degrees 208.1 Coded Diagnosis: NORMAL SINUS RHYTHM 208.1 Coded Diagnosis: LEFT AXIS DEVIATION 208.1 Coded Diagnosis: RIGHT BUNDLE BRANCH BLOCK 208.1 Coded Diagnosis: ANTEROSEPTAL INFARCT 208.1 Coded Diagnosis: (CITED ON OR BEFORE 21-APR-2004) 208.1 Coded Diagnosis: ABNORMAL ECG Confirmed by Mihaela Peres ([id number]) on 12/31/2024 12:40:57 PM Administrative Closure: 12/31/2024 by: DEVICE PROXY SERVICE CLINICAL CLINICAL,DEVICE PROXY SERVICE CLINICAL,[facility]
--- OUTSIDE RECORDS SUMMARY | 2024-12-31 08:44 | XMS_ITS | Encounter Summary ---
Author Name [facility] Organization [facility] [place] Address [address] [place] [address] Care Team Providers Care Painting Contractor Name Role Phone DALIA COBB Primary Care [...] AUTOM OTIVE - RETI Jul 25, 2018 [id number] TI KAMARA SPOUSE MEDICARE (WNR) MEDICARE (M) PART B Jan 22, 2007 PART B [id number] MALUJUSTYNA TINAJERO RGE PATIENT MEDICARE (WNR) MEDICARE (M) PART A Sep 22, 2005 PART A [id number] AMLUJUSTYNA TINAJERO RGE PATIENT FOR LIFE TRICA RE FOR LIFE Jul 25, 2017 FOR LIFE [id number] ROBBIE HUANG JR PATIENT Selected Encounter This section includes the information on record at [place] for the Encounter. Date/Time Encounter Type Encounter Description Reason Provider Source Dec 31, 2024 12:44 PM [facility] MED/CURRENT MED [facility] ICD-10-CM Z51.81 Encounter for therapeutic drug level monitoring YENNY HOUSE E Encounter Template Text not used by [place] Assessments - Encounter Diagnoses This section includes the primary and secondary diagnoses documented for the Encounter. Date/Time Primary/Secondary Diagnosis Diagnosis Name Provider Source Dec 31, 2024 01:40 PM PRIMARY Encounter for therapeutic drug level monitoring YENNY HOUSECAMILA Curran [facility] Plan of Treatment: Future Appointments (+ [...] data comes from all [place] treatment facilities. Appointment Date/Time Appointment Type Appointme nt Facility Name Jan 11, 2025 10:45 AM AMBULATORY - MEDICINE [facility] Jan 17, 2025 09:30 AM [facility] - NONE [place] [facility] Jan 23, 2025 01:30 PM [facility] [place]ONE [place] [facility] Jan 28, 2025 01:30 PM AMBULATORY - SURGERY [place] [facility] [facility] Jan 31, 2025 03:00 PM AMBULATORY - MEDICINE [facility]ON-[facility] Feb 05, 2025 01:00 PM AMBULATORY - MEDICINE [facility] Feb 05, 2025 02:00 PM AMBULATORY - MEDICINE [facility] Feb 07, 2025 01:15 PM AMBULATORY - MEDICINE [facility] Feb 08, 2025 01:30 PM [facility]ORY [place] NONE [place] [facility] Mar 04, 2025 01:30 PM [facility] NONE [place] [facility] Mar 18, 2025 01:30 PM [facility]ONE [place] [facility] Mar 19, 2025 01:00 PM [facility] Apr 11, 2025 02:00 PM AM[facility]ORY [facility] MEDICINE [facility] Active, Pending, and Scheduled Orders This section includes a listing of several types of active, pending, and scheduled orders, including clinic medications orders, diagnostic test orders, procedure orders and consult orders; where the start date of the order is 45 days before the date of the Encounter or 45 days after the date of theEncounter. The data comes from all [place] treatment facilities. Test Date/Time Test Type Test Details Facility Name Feb 05, 2025 02:21 PM Procedure Order CP PULMONA RY FUNCTION TEST CP PULMONARY FUNCTION TEST Proc Thread Milling Machine Set Up Operator's Choice [facility] Lab Results: +/- 30 days of [...] Type Comment Jan 28, 2025 02:32 PM [facility] WN CREATININE URINE Specimen Type: URINE No comment entered. Ordering Provider: APARNA KING Report Released Date/Time: Oct 02, 2024 03:22 PM Reporting Lab: [address] [address] Performing Lab: [address] [address] CREATININE 92.7 mg/dL Jan 28, 2025 02:32 PM [facility] TOTAL PROTEIN URINE Specimen Type: URINE No comment entered. Ordering Provider: APARNA KING Report Released Date/Time: Oct 02, 2024 03:22 PM Reporting Lab: [address] [address] Performing Lab: [address] [address] TOTAL PROTEIN 15 mg/dL H 0-14 Jan 28, 2025 02:32 PM [facility] URINALYSIS URINE Specimen Type: URINE Comment: Microscopic not indicated Ordering Provider: APARNA KING Report Released Date/Time: Oct 02, 2024 03:22 PM Reporting Lab: [place] [id number] Performing Lab: [place] [id number] URINE COLOR Light Yellow Colorless-Yello w APPEARANCE Clear Clear UROBILINOGEN Normal mg/dL Normal URINE BLOOD Negative Negative URINE BILIRUBIN Negative Negative URINE KETONES Negative mg/dL Negative URINE PROTEIN Negative mg/dL Negative-Tr rachell URINE PH 5.5 4.5-8.0 URINE NITRITE Negative Negative URINE LEUKOCYTE EST Negative Negative SPECIFIC GRAVITY 1.019 1.005-1.030 URINE GLUCOSE >1000 mg/dL H Negative Jan 28, 2025 02:21 PM [facility] PTH INTACT (MCCALL) PLASMA Spe cimen [...] Oct 02, 2024 03:22 PM Reporting Lab: [place] [id number] Performing Lab: [place] [address] PTH INTACT (MCCALL) 130.0 pg/mL H 8.7-77.1 Jan 28, 2025 02:21 PM [facility] 25-OH VITAMIN D SERUM Specime n [...] Oct 02, 2024 03:22 PM Reporting Lab: [address] [address] Performing Lab: [place] [id number] 25-OH VITAMIN D 40.7 ng/mL 20.0-50.0 Jan 28, 2025 02:21 PM [facility] CBC/PLT BLOOD Specimen Type: BLOOD No comment entered. Ordering Provider: APARNA KING Report Released Date/Time: Oct 02, 2024 03:22 PM Reporting Lab: [address] [address] Performing Lab: [address] [address] WBC 6.5 10*3/uL 5.0-10.0 RBC 4.18 10*6/uL L 4.6-6.2 HGB 12.4 g/dL L 14.0-18.0 HCT 39.2 L 42.0-52.0 MCV 93.8 fL 80.0-94.0 MCH 29.7 pg 27.0-31.0 MCHC 31.6 g/dL L 32.0-36.0 PLT 212 10*3/uL 150-450 MPV 10.7 fL 9.0-13.1 RDW 13.9 11.0-16.0 NRBC 0.0 0.0-0.0 Jan 28, 2025 02:20 PM [facility] PHOSPHORUS PLASMA Specimen Type: PLASM A [...] Jan 17, 2025 09:57 AM Reporting Lab: [address] [address] Performing Lab: [address] [address] PHOSPHORUS 3.5 mg/dL 2.3-4.7 Jan 28, 2025 02:20 PM [facility] ALBUMIN PLASMA Specimen Type: PLASM A [...] Jan 17, 2025 09:57 AM Reporting Lab: [address] [address] Performing Lab: [address] [address] ALBUMIN 4.1 g/dL 3.5-5.2 Jan 28, 2025 02:20 PM [facility] Specimen Type: PLASM A [...] Jan 17, 2025 09:57 AM Reporting Lab: [address] [address] Performing Lab: [address] [address] CREATININE 2.55 mg/dL H 0.72-1.25 UREA NITROGEN 38 mg/dL H 9-25 GLUCOSE 91 mg/dL 74-100 SODIUM 142 mmol/L 136-145 POTASSIUM 4.5 mmol/L 3.5-5.1 CHLORIDE 109 mmol/L H 98-107 CO2 25 mmol/L 22-29 CALCIUM 8.8 mg/dL 8.4-10.2 ANION GAP 8 meq/L 3-19 eGFR (CKD-EPI) Jan 11, 2025 09:53 AM [facility] PANEL 1 PLASMA Specimen Type: [...] Jan 08, 2025 02:55 PM Reporting Lab: [address] [address] Performing Lab: [address] [address] CREATININE 2.62 mg/dL H 0.72-1.25 UREA NITROGEN 46 mg/dL H 9-25 GLUCOSE 105 mg/dL H 74-100 SODIUM 143 mmol/L 136-145 POTASSIUM 4.7 mmol/L 3.5-5.1 CHLORIDE 107 mmol/L 98-107 CO2 25 mmol/L 22-29 CALCIUM 9.3 mg/dL 8.4-10.2 ANION GAP 11 meq/L 3-19 eGFR (CKD-EPI) Dec 31, 2024 12:02 PM [facility] GLUCOSE-HAND MONITOR CAPILLARY Specime n Type: CAPILLARY Comment: Test performed by: [id number] Meter #: [id number] Ordering Provider: CHLOE SEVERINO Report Released Date/Time: Dec 31, 2024 12:58 PM Reporting Lab: [facility] [address] [facility] [address] Performing Lab: [address] [address] GLUCOSE-HAND MONITOR 129 mg/dL H 71-99 Dec 31, 2024 07:50 AM [facility] PANEL 1 PLASMA Specimen Type: PLASM [...] Dec 30, 2024 08:23 AM Reporting Lab: [address] [address] Performing Lab: [place] [id number] CREATININE 2.04 mg/dL H 0.72-1.25 UREA NITROGEN 31 mg/dL H 9-25 GLUCOSE 94 mg/dL 74-100 SODIUM 138 mmol/L 136-145 POTASSIUM 4.4 mmol/L 3.5-5.1 CHLORIDE 105 mmol/L 98-107 CO2 25 mmol/L 22-29 CALCIUM 8.9 mg/dL 8.4-10.2 ANION GAP 8 meq/L 3-19 eGFR (CKD-EPI) 32 Dec 31, 2024 07:50 AM [facility] CBC/PLT BLOOD Specimen Type : BLOOD No comment entered. Ordering Provider: CHLOE SEVERINO Report Released Date/Time: Dec 30, 2024 08:23 AM Reporting Lab: [address] [address] Performing Lab: [address] [address] WBC 8.2 10*3/uL 5.0-10.0 RBC 4.03 10*6/uL L 4.6-6.2 HGB 12.0 g/dL L 14.0-18.0 HCT 37.2 L 42.0-52.0 MCV 92.3 fL 80.0-94.0 MCH 29.8 pg 27.0-31.0 MCHC 32.3 g/dL 32.0-36.0 PLT 191 10*3/uL 150-450 MPV 10.5 fL 9.0-13.1 RDW 13.8 11.0-16.0 NRBC 0.0 0.0-0.0 Dec 31, 2024 06:38 AM [facility] GLUCOSE-HAND MONITOR CAPILLARY Specime n Type: CAPILLARY Comment: Test performed by: [id number] Meter #: [id number] Ordering Provider: CHLOE SEVERINO Report Released Date/Time: Dec 31, 2024 07:17 AM Reporting Lab: [address] [address] Performing Lab: [address] [address] GLUCOSE-HAND MONITOR 99 mg/dL 71-99 Dec 30, 2024 08:10 PM [facility] GLUCOSE-HAND MONITOR CAPILLARY Specime n Type: CAPILLARY Comment: Test performed by: [id number] Meter #: [id number] Ordering Provider: CHLOE SEVERINO Report Released Date/Time: Dec 30, 2024 09:15 PM Reporting Lab: [place] [id number] Performing Lab: [place] [id number] GLUCOSE-HAND MONITOR 124 mg/dL H -99 Dec 30, 2024 04:21 PM [facility] GLUCOSE-HAND MONITOR CAPILLARY Specime n Type: CAPILLARY Comment: Test performed by: [id number] Meter #: [id number] Ordering Provider: CHLOE SEVERINO Report Released Date/Time: Dec 30, 2024 04:39 PM Reporting Lab: [place] [id number] Performing Lab: [place] [id number] GLUCOSE-HAND MONITOR 92 mg/dL 71-99 Dec 30, 2024 11:54 AM [facility] MRSA SURVL NARES DNA NARES Specime [...] Dec 30, 2024 10:43 AM Reporting Lab: [address] [address] Performing Lab: [place] [id number] MRSA SURVL NARES DNA Negative Negative Dec 30, 2024 11:39 AM [facility] GLUCOSE-HAND MONITOR CAPILLARY Specime n Type: CAPILLARY Comment: Test performed by: [id number] Meter #: [id number] Ordering Provider: CHLOE SEVERINO Report Released Date/Time: Dec 30, 2024 11:56 AM Reporting Lab: [place] [id number] Performing Lab: [place] [id number] GLUCOSE-HAND MONITOR 115 mg/dL H 71-99 Dec 30, 2024 07:46 AM [facility] CODE / HAY FARMER VENOUS BLOOD GAS VENOUS BLOOD Specimen Type: VENOUS BLOOD Comment: Collection Time: 12-30-2024 @ 07:46 Ordering Provider: KEYANNA EDMONDSON Report Released Date/Time: Dec 30, 2024 07:54 AM Reporting Lab: [place] [id number] Performing Lab: [place] [id number] .VpCO2 46 mm[Hg] 41-51 .VpH 7.34 7.33-7.43 Dec 30, 2024 07:46 AM [facility] CODE / HAY FARMER BLUE TOP PLASMA Specimen Type: PLASMA No comment entered. Ordering Provider: KEYANNA EDMONDSON Report Released Date/Time: Dec 30, 2024 07:53 AM Reporting Lab: [place] [id number] Performing Lab: [place] [id number] PT PATIENT 15.1 s H 11.7-14.4 INTERNATIONAL NORMALIZED RATIO 1.21 H 0 .87-1.14 PTT PATIENT 32.2 s 24.0-33.2 Dec 30, 2024 07:46 AM [facility] CODE / HAY FARMER GREEN TOP PLASMA Specimen Type: ALFREDITO SMA [...] Dec 30, 2024 07:53 AM Reporting Lab: [address] [address] Performing Lab: [address] [address] IONIZED CALCIUM 1.13 mmol/L L 1.15-1.29 CREATININE [...] 6 4-35 Dec 30, 2024 07:46 AM [facility] CODE / HAY FARMER BACH TOP PLASMA Specimen Type: PLASMA No comment entered. Ordering Provider: KEYANNA EDMONDSON Report Released Date/Time: Dec 30, 2024 07:53 AM Reporting Lab: [address] [address] Performing Lab: [place] [id number] LACTIC ACID 0.9 mmol/L 0.5-2.2 Dec 30, 2024 07:46 AM [facility] CODE / HAY FARMER LAVENDER TOP BLOOD Spec imen Type: BLOOD No comment entered. Ordering Provider: KEYANNA EDMONDSON Report Released Date/Time: Dec 30, 2024 07:53 AM Reporting Lab: [address] [address] Performing Lab: [address] [address] WBC 10.2 10*3/uL H 5.0-10.0 RBC 4.04 10*6/uL L 4.6-6.2 HGB 12.3 g/dL L 14.0-18.0 HCT 37.6 L 42.0-52.0 MCV 93.1 fL 80.0-94.0 MCH 30.4 pg 27.0-31.0 MCHC 32.7 g/dL 32.0-36.0 PLT 187 10*3/uL 150-450 MPV 10.2 fL 9.0-13.1 RDW 13.8 11.0-16.0 NRBC 0.0 0.0-0.0 December 03, 2024 02:03 PM [facility] PROTEIN ELECTROPHORESIS URINE Specimen Type: URINE No comment entered. Ordering Provider: DALIA COBB Report Released Date/Time: December 03, 2024 01:24 PM Reporting Lab: [address] [address] Performing Lab: [facility] [address] [address] TOTAL PROTEIN 17.0 mg/dL Not Estab. .ALBUMIN ELEC 29.4 .ALPHA 1 ELEC 5.2 .ALPHA 2 ELEC 21.5 .BETA ELEC 19.7 .GAMMA ELEC 24.2 .M-SPIKE Not Observed Not Observed December 03, 2024 02:03 PM [facility] TOTAL PROTEIN URINE Specimen Type: URINE No comment entered. Ordering Provider: DALIA COBB Report Released Date/Time: December 03, 2024 01:24 PM Reporting Lab: [address] Performing Lab: [place] [id number] TOTAL PROTEIN 16 mg/dL H 0-14 December 03, 2024 02:03 PM [facility] CREATININE URINE Specimen Type: URINE No comment entered. Ordering Provider: DALIA COBB Report Released Date/Time: December 03, 2024 01:24 PM Reporting Lab: [place] [id number] Performing Lab: [address] [address] CREATININE 63.6 mg/dL December 03, 2024 02:03 PM [facility] URINALYSIS URINE Specimen Type: URINE Comment: Microscopic not indicated Ordering Provider: DALIA COBB Report Released Date/Time: December 03, 2024 01:29 PM Reporting Lab: [address] [address] Performing Lab: [address] [address] URINE COLOR Light Yellow Colorless-Yello w APPEARANCE Clear Clear UROBILINOGEN Normal mg/dL Normal URINE BLOOD Negative Negative URINE BILIRUBIN Negative Negative URINE KETONES Negative mg/dL Negative URINE PROTEIN Negative mg/dL Negative-Tr rachell URINE PH 5.0 4.5-8.0 URINE NITRITE Negative Negative URINE LEUKOCYTE EST Negative Negative SPECIFIC GRAVITY 1.014 1.005-1.030 URINE GLUCOSE >1000 mg/dL H Negative December 03, 2024 01:45 PM [facility] ANTI-NUCLEAR Ab SERUM Specimen Type: SERUM Comment: Atypical speckled resembling DFS (Dense-Fine Speckled. The DFS pattern has a low prevalence in systemic autoimmune rheumatic diseases. The clinical association remains unclear. Due to its close resemblance to other patterns of clinical relevance, (i.e. Homogeneous, speckled, and mixed patterns) follow-up testing may be recommended. ANTI-NUCLEAR Ab reported incorrectly as Atypical Speckled by [[id number]]. Changed to 1:320 Atypical Speckled on December 06, 2024@12:59 by [[id number]]. Ordering Provider: DALIA COBB Report Released Date/Time: December 03, 2024 01:38 PM Reporting Lab: [address] [address] Performing Lab: [address] [address] ANTI-NUCLEAR Ab 1:320 Atypical Speckled <1:80 December 03, 2024 01:45 PM [facility] ([facility]ERUM) SERUM Specimen Type: SERUM Comment: BNP results less than or equal to 100 pg/ml are dealer compliance representative of normal values in patients without CHF. BNP results greater than 100 pg/ml are considered abnormal and suggestive of CHF. Higher BNP concentrations in the first 72 hours after Acute Coronary Syndrome are associated with an increased risk of , myocardial infarction and CHF. Ordering Provider: DALIA COBB Report Released Date/Time: December 03, 2024 01:24 PM Reporting Lab: [address] [address] Performing Lab: [address] [address] .ALBUMIN ELEC 3.6 g/dL 2.9-4.4 .ALPHA 1 [...] INTERPRETATION Comment December 03, 2024 01:45 PM [facility] JORDAN SCREEN SERUM Specimen Type: SERUM No comment entered. Ordering Provider: DALIA COBB Report Released Date/Time: December 03, 2024 01:38 PM Reporting Lab: [address] [address] Performing Lab: [address] [address] JORDAN SCREEN Negative Negative December 03, 2024 01:45 PM [facility] BNP ([employer]) PLASMA Specimen Type: PLASMA Comment: BNP results less than or equal to 100 pg/ml are dealer compliance representative of normal values in patients without CHF. BNP results greater than 100 pg/ml are considered abnormal and suggestive of CHF. Higher BNP concentrations in the first 72 hours after Acute Coronary Syndrome are associated with an increased risk of , myocardial infarction and CHF. Ordering Provider: DALIA COBB Report Released Date/Time: December 03, 2024 01:24 PM Reporting Lab: [address] [address] Performing Lab: [address] [address] BNP (MCCALL) 225 pg/mL H 0-100 December 03, 2024 01:45 PM [facility] CK TOTAL PLASMA Specimen Type: PLASM [...] December 03, 2024 01:33 PM Reporting Lab: [address] [address] Performing Lab: [address] [address] CK TOTAL 76 U/L 30-200 December 03, 2024 01:45 PM [facility] PANEL 5 PLASMA Specimen Type: PLASM [...] December 03, 2024 01:24 PM Reporting Lab: [address] [address] Performing Lab: [address] [address] CREATININE 2.05 mg/dL H 0.72-1.25 UREA NITROGEN [...] (CKD-EPI) December 03, 2024 01:45 PM [facility] CBC/PLT BLOOD Specimen Type: BLOOD No comment entered. Ordering Provider: DALIA COBB Report Released Date/Time: December 03, 2024 01:33 PM Reporting Lab: [address] [address] Performing Lab: [place] [id number] WBC 5.6 10*3/uL 5.0-10.0 RBC 4.24 10*6/uL L 4.6-6.2 HGB 12.8 g/dL L 14.0-18.0 HCT 39.4 L 42.0-52.0 MCV 92.9 fL 80.0-94.0 MCH 30.2 pg 27.0-31.0 MCHC 32.5 g/dL 32.0-36.0 PLT 248 10*3/uL 150-450 MPV 10.2 fL 9.0-13.1 RDW 14.2 11.0-16.0 NRBC 0.0 0.0-0.0 December 03, 2024 01:45 PM [facility] AUTOMATED DIFF BLOOD Specimen Type: BLOOD No comment entered. Ordering Provider: DALIA COBB Report Released Date/Time: December 03, 2024 01:33 PM Reporting Lab: [address] [address] Performing Lab: [place] [id number] A-LYMPH % 22.1 L 24.0-44.0 A-MONO % [...] 31, 2024 01:16 PM 94 [place] [facility] Dec 31, 2024 11:10 AM 98.2 56 116/69 18 97 0 [place] [facility] Dec 31, 2024 10:59 AM 179.1 29 [place] [facility] Dec 31, 2024 10:28 AM 0 [place] [facility] Dec 31, 2024 08:09 AM 97.9 69 124/76 18 91 0 [facility] Social History: Smoking Status [...] 10, 2024 02:00 PM VA-TOBACCO NEVER USED [facility] Tobacco Use History This section includes a history of the smoking, or tobacco-related health factors, that were collected on or before the date of the Encounter. The data comes from the [place] facility where the Encounter took place. Date/Time Smoking Status/Tobacco Use Comment F acgenet May 19, 2017 03:22 AM NON-TOBACCO USE INPATIENT [facility] Sep 07, 2016 02:41 AM NON-TOBACCO USE INPATIENT [facility] Apr 21, 2004 08:29 AM HF V9 CURRENT NON-SMOKER quit smoking about 30 yrs ago [facility] Sep 06, 2002 02:26 PM HF V9 CURRENT NON-SMOKER QUIT SMOKING ABOUT 31 YRS AGO [facility] Radiology Reports: +/- 30 days of [...] DUPLEX LOWE R EXT BILAT: ROBBIE HUANG [id number] -1940 M Exm Date: JAN 28, 2025@13:17 Req Phys: DALIA COBB Pat Loc: [facility] 16-1 (Req'g Loc) Img Loc: [facility] [place] Service: Unknown (Case [id number] COMPLETE) VENOUS DUPLEX LOWER EXT BILAT (VAS Detailed) CPT:48599 Reason for Study: SEE CLINICAL HISTORY Clinical History: Venous Duplex for Valvular Competence/Venous Insufficiency: Chronic venous insufficiency Report Status: Verified Date Reported: JAN 29, 2025 Date Verified: JAN 29, 2025 Scrap Worker E-Sig: Report: EXAM: VENOUS DUPLEX EXAM OF [...] Staff: NICOLASA FLORES, ATTENDING PHYSICIAN Verified by garment form assembler for NICOLASA MCLEAN [facility] Jan 28, 2025 01:17 PM SEGMENTAL PRESSURE S, LOWER EXT([place]) UNILAT: ROBBIE HUANG [id number] -1940 M Exm Date: JAN 28, 2025@13:17 Req Phys: DALIA COBB R Pat Loc: [facility] 16-1 (Req'g Loc) [facility] Service: Unknown (Case [id number] COMPLETE) SEGMENTAL PRESSURES, LOWER EXT(AB(VAS Detailed) CPT:27241 Reason for Study: SEE CLINICAL HISTORY Clinical History: [place]'s/Segs Indications: Other: BLE edema, r/o PVD for compression tx. Report Status: Verified Date Reported: JAN 29, 2025 Date Verified: JAN 29, 2025 Scrap Worker E-Sig: Report: LE segmental pressures TECHNIQUE: Continuous wave Doppler waveforms are obtained from pedal vessels, segmental pressures are measured at rest. Photoplethysmographic waveforms are obtained of the digits with pressure measurement. COMPARISON: No prior FINDINGS: Right: Right brachial arterial pressure is 134 mmHg. Multiphasic waveforms are noted in the right posterior tibial and right dorsalis pedis arteries. ABIs demonstrate calcification with right COMMUNITY CHEST OFFICER 1.44, left DPA 1.28. Right toe pressure is 115 mmHg. Left: Left brachial arterial pressure is 134 mmHg. Multiphasic waveforms are noted in the left posterior tibial and left dorsalis pedis arteries. ABIs demonstrate calcification with right COMMUNITY CHEST OFFICER 1.44, left DPA 1.21. Left toe pressure [...] Staff: NICOLASA FLORES, ATTENDING PHYSICIAN Verified by garment form assembler for NICOLASA MCLEAN [facility] Dec 30, 2024 01:13 AM [id number] RADIOLOGY EX AM PERF/INTER BY OTHER FACILITY: ROBBIE HUANG [id number] -1940 M Exm Date: DEC 30, 2024@01:13 Req Phys: DALIA COBB Loc: [facility] X-RAY/ROUTINE/CDD/NC (Req' Img Loc: OUTSIDE2 LD RAD Service: Unknown (Case [id number] COMPLETE) [id number] RADIOLOGY EXAM PERF/INTER B(RAD Detailed) CPT:30113 Reason for Study: Exam imported from outside Clinical History: Original Data for Imported Study Patient Name: ROBBIE HUANG Date: 1940 Sex: M Study Date: 12/30/24 Study Time: 01:13:02 Study Description: XR CHEST PORTABLE Referring Physician: RICHARD CHAVES Series 1: 1 CR file Acquisition site: [facility] Report Status: Electronically Filed Date Reported: JAN 23, 2025 Report: Electronically generated report for outside study. Impression: Electronically generated report for outside study. Primary Diagnostic Code: VERIFIED BY: / *ELECTRONICALLY FILED* [facility] December 14, 2024 07:49 AM CARD. STRESS TEST W/TREADMILL/...: ROBBIE HUANG [id number] -1940 M Exm Date: DECEMBER 14, 2024@07:49 Req Phys: DALIA COBB Loc: [facility] 16-1 (Req'g Loc) Img Loc: NUCLEAR MEDICINE Service: [place] [address] (Case [id number] COMPLETE)CARD. STRESS TEST W/TREADMILL/...(NM Detailed) CPT:77541 Reason for Study: SEE CLINICAL HISTORY Clinical History: Cardiology approval by: [facility] SERVICE CONNECTED? No Active Outpatient Medications (including [...] 14, 2024 Date Verified: DECEMBER 14, 2024 Scrap Worker E-Sig: Report: STUDY: GXT with vasodilator REPORT: [...] Staff: CHAO ORR APRN, Cardiology Verified by garment form assembler for CHAO ORR /CHAO GIRON-CDD [facility] December 14, 2024 07:49 AM [id number] REGADENOSON 0.1MG X4 (LEXISCAN): ROBBIE HUANG MICA [id number] -1940 M Exm Date: DECEMBER 14, 2024@07:49 Req Phys: DALIA COBB Pat Loc: [facility] 16-1 (Req'g Loc) Img Loc: NUCLEAR MEDICINE Service: [place] [address] (Case [id number] COMPLETE)[id number] REGADENOSON 0.1MG X4 (STEPHON(NM Detailed) CPT:J2785 Reason for Study: SEE CLINICAL HISTORY Clinical History: Cardiology approval by: [facility] SERVICE CONNECTED? No Active Outpatient Medications (including [...] 14, 2024 Date Verified: DECEMBER 14, 2024 Scrap Worker E-Sig: Report: STUDY: GXT with vasodilator REPORT: [...] NO ALERT REQUIRED Primary Interpreting Staff: CHAO L ORR, TELECOM ENGINEER, Cardiology Verified by garment form assembler for CHAO ORR /CHAO GIRON-CDD [facility] December 14, 2024 07:49 AM CARD. STRESS TEST W/TREADMILL/...: ROBBIE HUANG [id number] 1940 M Exm Date: DECEMBER 14, 2024@07:49 Req Phys: JORDYNDALIA Pat Loc: [facility] 16-1 (Req'g Loc) Img Loc: NUCLEAR MEDICINE Service: [place] [address] (Case [id number] COMPLETE)CARD. STRESS TEST W/TREADMILL/...(NM Detailed) CPT:76222 Proc Modifiers : GXT Reason for Study: [...] 14, 2024 Date Verified: DECEMBER 14, 2024 Scrap Worker E-Sig: Report: [place], [place] STUDY: Regadenoson (Lexiscan) SPECT Tc-99m myoview [...] performed with tomographic and three-dimensional reconstructions with Wrightspeed/CT 640 system. Exercise: Patient exercised for 6 [...] data sets in addition to the conventional zaq-ltsrdcrnjqj-dgcxthmdu images. Both filtered back projection and iterative [...] ventricular cavity. 4. SPECT images: Attenuation-corrected and srp-amwnyresfqn-juxmxqxgf SPECT images were evaluated. SPECT images demonstrate [...] JEB SANTOS MD, CARDIOLOGY ATTENDING Verified by garment form assembler for JEB SANTOS MD /JEB MANCILLA-CDD [facility] December 14, 2024 07:49 AM MYOVIEW(2): ROBBIE HUANG [id number] -1940 M Ex Date: DECEMBER 14, 2024@07:49 Req Phys: DALIA COBB [facility] (Req'g Loc) Img Loc: NUCLEAR MEDICINE Service: [place] [address] (Case [id number] COMPLETE)MYOVIEW(2) (NM Detailed) CPT:A9502 Reason for Study: [...] 14, 2024 Date Verified: DECEMBER 14, 2024 Scrap Worker E-Sig: Report: [place], [place] STUDY: Regadenoson (Lexiscan) SPECT Tc-99m myoview [...] performed with tomographic and three-dimensional reconstructions with Lenddo NM/CT 640 system. Exercise: Patient exercised for [...] data sets in addition to the conventional kun-sekzeixcxyd-xoyrarvwp images. Both filtered back projection and iterative [...] ventricular cavity. 4. SPECT images: Attenuation-corrected and tfr-mibscbpzkqx-vjjmiaxqr SPECT images were evaluated. SPECT images demonstrate [...] JEB SANTOS MD, CARDIOLOGY ATTENDING Verified by garment form assembler for JEB SANTOS MD /JEB MANCILLA-D [facility] December 14, 2024 07:49 AM 72269(D) MYOCARDIA L SPECT(MULTIPLE): [facility] [id number] -1940 M Ex Date: DECEMBER 14, 2024@07:49 Req Phys: DALIA COBB Loc: [facility] WHITNEY 16-1 (Req'g Loc) [facility] Loc: NUCLEAR MEDICINE Service: [place] [address] (Case [id number] COMPLETE)96669(D) MYOCARDIAL SPECT(MULTIPL(NM Detailed) CPT:63945 Proc Modifiers : Lexiscan (Regadenoson) CPT Modifiers [...] YENNY GAMBOA Clinical History: Cardiology approval by: [facility] SERVICE CONNECTED? No Active Outpatient Medications (including [...] 14, 2024 Date Verified: DECEMBER 14, 2024 Scrap Worker E-Sig: Report: [place] STUDY: Regadenoson (Lexiscan) SPECT Tc-99m myoview [...] performed with tomographic and three-dimensional reconstructions with Wrightspeed/CT 640 system. Exercise: Patient exercised for 6 [...] data sets in addition to the conventional qpu-ssdgljorupw-ecyeyusox images. Both filtered back projection and iterative [...] ventricular cavity. 4. SPECT images: Attenuation-corrected and rab-oocvmmbtlpr-fovgaivus SPECT images were evaluated. SPECT images demonstrate [...] JEB SANTOS MD, CARDIOLOGY ATTENDING Verified by garment form assembler for JEB SANTOS MD /JEB MANCILLA-D [facility] December 14, 2024 07:49 AM MYOVIEW(1): ROBBIE HUANG [id number] -1940 M Ex Date: DECEMBER 14, 2024@07:49 Req Phys: DALIA COBB [facility] (Req'g Loc) Img Loc: NUCLEAR MEDICINE Service: [place] [address] (Case [id number] COMPLETE)MYOVIEW(1) (NM Detailed) CPT:A9502 Reason for Study: [...] 14, 2024 Date Verified: DECEMBER 14, 2024 Scrap Worker E-Sig: Report: [facility], [place], [place] STUDY: Regadenoson (Lexiscan) SPECT Tc-99m myoview [...] performed with tomographic and three-dimensional reconstructions with Lenddo NM/CT 640 system. Exercise: Patient exercised for [...] data sets in addition to the conventional ylj-oiewnsxbibs-cbjlbrfst images. Both filtered back projection and iterative [...] ventricular cavity. 4. SPECT images: Attenuation-corrected and emi-pmwlvxcemol-uvdqldvho SPECT images were evaluated. SPECT images demonstrate [...] JEB SANTOS MD, CARDIOLOGY ATTENDING Verified by garment form assembler for JEB SANTOS MD /JEB MANCILLA-D [facility] December 14, 2024 07:49 AM [id number] REGADENOSON 0.1MG X1 (LEXISCAN): ROBBIE HUANG MICA [id number] -1940 M Ex Date: DECEMBER 14, 2024@07:49 Req Phys: DALIA COBB Loc: [facility] 16-1 (Req'g Loc) [facility] Loc: NUCLEAR MEDICINE Service: Unknown [place] [id number] (Case [id number] COMPLETE)[id number] REGADENOSON 0.1MG X1 (STEPHON(NM Detailed) CPT:J2785 Reason for Study: SEE CLINICAL HISTORY Clinical History: Cardiology approval by: [facility] SERVICE CONNECTED? No Active Outpatient Medications (including [...] 14, 2024 Date Verified: DECEMBER 14, 2024 Scrap Worker E-Sig: Report: [facility], [place], [place] STUDY: Regadenoson (Lexiscan) SPECT Tc-99m myoview [...] performed with tomographic and three-dimensional reconstructions with Lenddo NM/CT 640 system. Exercise: Patient exercised for [...] data sets in addition to the conventional czb-dzmzcvzfnmw-erprelanc images. Both filtered back projection and iterative [...] ventricular cavity. 4. SPECT images: Attenuation-corrected and www-uulamzszscr-ipjsrpqus SPECT images were evaluated. SPECT images demonstrate [...] JEB SANTOS MD, CARDIOLOGY ATTENDING Verified by garment form assembler for JEB SANTOS MD /JEB MANCILLA-CDD [facility] December 14, 2024 07:49 AM TC-99M X1 FROM NON -HEU SOURCE: ROBBIE HUANG [id number] -1940 M Exm Date: DECEMBER 14, 2024@07:49 Req Phys: DALIA COBB Pat Loc: [facility] 16-1 (Req'g Loc) Img Loc: NUCLEAR MEDICINE Service: [place] [address] (Case [id number] COMPLETE)TC-99M X1 FROM NON-HEU SOURCE (NM Detailed) [...] 14, 2024 Date Verified: DECEMBER 14, 2024 Scrap Worker E-Sig: Report: [place], [place] STUDY: Regadenoson (Lexiscan) SPECT Tc-99m myoview [...] performed with tomographic and three-dimensional reconstructions with Wrightspeed/CT 640 system. Exercise: Patient exercised for 6 [...] data sets in addition to the conventional wxz-wiubayxkwfg-ufaufetxi images. Both filtered back projection and iterative [...] ventricular cavity. 4. SPECT images: Attenuation-corrected and sok-epxlovethpx-itytfmxft SPECT images were evaluated. SPECT images demonstrate [...] JEB SANTOS MD, CARDIOLOGY ATTENDING Verified by garment form assembler for JEB SANTOS MD /JEB MANCILLA-D [facility] December 14, 2024 07:49 AM [id number] REGADENOSON 0.1MG X2 (LEXISCAN): ROBBIE HUANG [id number] -1940 M Exm Date: DECEMBER 14, 2024@07:49 Req Phys: DALIA COBB Loc: [facility] 16-1 (Req'g Loc) Img Loc: NUCLEAR MEDICINE Service: [place] [address] (Case [id number] COMPLETE)[id number] REGADENOSON 0.1MG X2 (STEPHON(NM Detailed) CPT:J2785 [...] 14, 2024 Date Verified: DECEMBER 14, 2024 Scrap Worker E-Sig: Report: [facility], [place], [place] STUDY: Regadenoson (Lexiscan) SPECT Tc-99m myoview [...] performed with tomographic and three-dimensional reconstructions with Lenddo NM/CT 640 system. Exercise: Patient exercised for [...] data sets in addition to the conventional hgd-hfxjiyibhit-ggtnynerj images. Both filtered back projection and iterative [...] ventricular cavity. 4. SPECT images: Attenuation-corrected and cwy-jxqfijkwzni-wwewtwyab SPECT images were evaluated. SPECT images demonstrate [...] JEB SANTOS MD, CARDIOLOGY ATTENDING Verified by garment form assembler for JEB SANTOS MD /JEB MANCILLA-CDD [facility] December 14, 2024 07:49 AM [id number] REGADENOSON 0.1MG X3 (LEXISCAN): ROBBIE HUANG [id number] -1940 M Ex Date: DECEMBER 14, 2024@07:49 Req Phys: DALIA COBB [facility] (Req'g Loc) [facility] Loc: NUCLEAR MEDICINE [place]: [place] [address] (Case [id number] COMPLETE)[id number] REGADENOSON 0.1MG X3 (STEPHON(NM Detailed) CPT:J2785 Reason for Study: SEE CLINICAL HISTORY Clinical History: Cardiology approval by: [facility] SERVICE CONNECTED? No Active Outpatient Medications (including [...] 14, 2024 Date Verified: DECEMBER 14, 2024 Scrap Worker E-Sig: Report: [facility], [place], [place] STUDY: Regadenoson (Lexiscan) SPECT Tc-99m myoview [...] performed with tomographic and three-dimensional reconstructions with Lenddo NM/CT 640 system. Exercise: Patient exercised for [...] data sets in addition to the conventional sdd-njevvsswump-acgrrokqk images. Both filtered back projection and iterative [...] ventricular cavity. 4. SPECT images: Attenuation-corrected and ugz-vyimgchkpdx-lezplurob SPECT images were evaluated. SPECT images demonstrate [...] JEB SANTOS MD, CARDIOLOGY ATTENDING Verified by garment form assembler for JEB SANTOS MD /JEB MANCILLA-CDD [facility] December 14, 2024 07:49 AM TC-99M X2 FROM NON -HEU SOURCE: ROBBIE HUANG [id number] -1940 M Exm Date: DECEMBER 14, 2024@07:49 Req Phys: DALIA COBB Loc: [facility] 16-1 (Req'g Loc) Img Loc: NUCLEAR MEDICINE Service: [place] [address] (Case [id number] COMPLETE)TC-99M X2 FROM NON-HEU SOURCE (NM Detailed) [...] 14, 2024 Date Verified: DECEMBER 14, 2024 Scrap Worker E-Sig: Report: [place] STUDY: Regadenoson (Lexiscan) SPECT Tc-99m myoview [...] performed with tomographic and three-dimensional reconstructions with Lenddo NM/CT 640 system. Exercise: Patient exercised for [...] data sets in addition to the conventional wqy-jxkaklumpih-jnrdnukwr images. Both filtered back projection and iterative [...] ventricular cavity. 4. SPECT images: Attenuation-corrected and zha-kdtpxqxhyta-dwitsdwcx SPECT images were evaluated. SPECT images demonstrate [...] JEB SANTOS MD, CARDIOLOGY ATTENDING Verified by garment form assembler for JEB SANTOS MD /JEB MANCILLA-ISMAEL [facility] Encounter Notes: All associated encounter notes This section contains the clinical notes associated to the Encounter. Date/Time Encounter Note(s) Provider Source Dec 31, 2024 12:55 PM PHARMACY MEDICATIO N MGT DISCHARGE NOTE: LOCAL TITLE: PHARMACY DISCHARGE PATIENT COUNSELING STANDARD TITLE: PHARMACY MEDICATION MGT DISCHARGE NOTE DATE OF NOTE: DEC 31, 2024@12:55 ENTRY DATE: DEC 31, 2024@12:55:13 AUTHOR: YENNY HOUSE EXP COSIGNER: URGENCY: STATUS: COMPLETED ROBBIE HUANG JR is a 84 yo WHITE MALE seen for pharmacy discharge counseling today. The Learning Barriers listed below were reviewed 05/25/2024 V9 Hearing Barrier Bilateral hearing aides V9 Visual Barrier Glasses See Outpatient Medications at Discharge note for complete list of medications. Discussed with patient medication changes upon discharge. Medication doses, side effects, routes of administration, schedules and methods of administration were reviewed where appropriate. Topics also included potential drug-nutrient, drug-drug, or drug-disease state interactions. Patient was given written and verbal instruction, and has also been provided with the phone number for 24-hour assistance. Policies for [place] pharmacy refill procedure were reviewed. Patient is aware to contact health care provider should any questions or problems arise. Patient was provided a complete list of medications. Patient was educated/instructed to keep medication list availble to share with medical providers. Patient was instructed to pickler helper any new medications in the outpatient pharmacy.: Yes Patient verbalized understanding of education. Patient provided with [place] prescription education materials ([employer]) for all dispensed medications. Dear Mr. Huang: Your doctor has made some changes to your medications. You should resume your previous home medications with the following exceptions: 1. These are your NEW medications: a. Metoprolol succinate 25mg tablet (Toprol XL): Take 1 tablet by mouth once daily for blood pressure/heart. i. Start tomorrow morning. b. Furosemide 40mg tablet (Lasix): Take 1 tablet by mouth once daily for fluid. i. Take in the morning. 1. These medications have been discontinued and you should STOP taking: a. STOP Ibuprofen (Motrin) Please stop by the outpatient pharmacy to pickler helper new medications above. Please see medication list for dose and directions. Please keep this list of your medications with you at all times. Thank you. Counseled pt on new medications and changes. Pt verbalized understanding. /jack/ YENNY HOUSE PharmD, [facility] Clinical Pharmacist Signed: 12/31/2024 13:50 YENNY HOUSE-ISMAEL [facility] Dec 31, 2024 12:44 PM PHARMACY MEDICATIO N MGT DISCHARGE NOTE: LOCAL TITLE: PHARMACY DISCHARGE MEDICATION RECONCILIATION STANDARD TITLE: PHARMACY MEDICATION MGT DISCHARGE NOTE DATE OF NOTE: DEC 31, 2024@12:44 ENTRY DATE: DEC 31, 2024@12:44:24 AUTHOR: YENNY HOUSE EXP COSIGNER: URGENCY: STATUS: COMPLETED DISCHARGE MEDICATION RECONCILATION Have you used tobacco products (smoked/chewed) within the past 30 days? No, patient has not used tobacco products within the past 30 days ADVERSE DRUG REACTIONS/ALLERGIES: ASPIRIN, ATORVASTATIN CURRENT INPATIENT REGIMEN: Active Inpatient Medications (including Supplies): Start Date [...] QHS Stop : 04/08/25 Indication: FOR CHOLESTEROL CURRENT OUTPATIENT MEDICATIONS: Active and Recently Outpatient Medications (including Supplies): Active Outpatient Medications Status 1) EMPAGLIFLOZIN 10MG TAB TAKE ONE TABLET BY MOUTH EVERY ACTIVE MORNING PROTEINURIA Active Non-VA Medications Status 1) Non-VA AMLODIPINE BESYLATE 10MG TAB 10MG MOUTH DAILY ACTIVE Indication: FOR BLOOD PRESSURE/HEART 2) Non-VA AMOXICILLIN 500MG CAP 500MG MOUTH THREE TIMES A DAY ACTIVE 3) Non-VA CHOLECALCIF 25MCG (D3-1,000UNIT) TAB 1000UNIT MOUTH ACTIVE DAILY 4) Non-VA CLOPIDOGREL BISULFATE 75MG TAB 75MG MOUTH DAILY ACTIVE Indication: TO THIN BLOOD 5) Non-VA CYANOCOBALAMIN 1000MCG TAB 1000MCG MOUTH DAILY ACTIVE 6) Non-VA IBUPROFEN 600MG TAB 600MG MOUTH EVERY 6 HOURS ACTIVE 7) Non-VA LEVOCETIRIZINE DIHYDROCHLORIDE 5MG TAB 5MG MOUTH ACTIVE DAILY 8) Non-VA MULTIVIT/OPHTH AREDS2/LUTE/ZEAX CAP/TAB 1 SOFTGEL ACTIVE MOUTH TWICE A DAY AFTER MEALS 9) Non-VA ROSUVASTATIN TAB 10MG MOUTH DAILY ACTIVE Indication: FOR CHOLESTEROL 10 Total Medications No Active Remote Medications for this patient RECONCILIATION REVIEW: Discharge medication list was compared to the patient's inpatient list of medications, medication list prior to admission, and active outpatient profile. 1. Inpatient Medications to be discontinued: -heparin sq -metoprolol tartrate 2. New Outpatient Medications: -metoprolol succinate 25mg SA po daily -furosemide 40mg po daily 3. Outpatient Medication Changes/Dose Adjustments: -none 4. Outpatient Medications to be discontinued: -STOP Ibuprofen 5. Outpatient Medications held on admission to resume upon discharge: -amoxicillin (for post dental procedure, pt to resume and complete course) -cholecalciferol -clopidogrel -levocetirizine -MVI for eyes 6. Discrepancies between inpatient/outpatient profile and discharge regimen: -Called and spoke with team (Dr. Thompson) -Reviewed all held home medications with team. Per MD, pt should resume home clopidigrel. He can also resume amoxicillin and complete course prescribed post dental procedure. He should STOP scheduled ibuprofen. MD asked pharmD to d/c opt order for ibuprofen -Pt to resume all other meds listed in #6 -no ASA 81mg for patient per MD- allergy on file (hives) Time spent reviewing chart: 30 Minutes PBM PharmD Pharmacotherapy Rem V12: PHARMACIST INTERVENTIONS: HEART FAILURE Medication Intervention(s) Discontinue and/or change to a different medication for heart failure Address adherence Care coordination Discharge counseling provided Medication monitoring or diagnostic evaluation (e.g., other labs, EKG) Medication reconciliation (changes to active VA and non-VA medication lists to reconcile differences) Changes to medication lists made Discontinue or remove medication Prevent or manage an adverse drug reaction or event /es/ YENNY HOUSE PharmD, [facility] Clinical Pharmacist Signed: 12/31/2024 13:49 YENNY HOUSE [facility]
--- OUTSIDE RECORDS SUMMARY | 2025-01-11 06:45 | XMS_ITS | Encounter Summary ---
Author Name [facility] Organization [facility] [place] Address [address] [place] [id number] Care Team Providers Care Manager Performance Improvement Name Role Phone DALIA COBB Primary Care [...] AUTOM OTIVE - RETI Jul 25, 2018 [id number] TI KAMARA SPOUSE MEDICARE (WNR) MEDICARE (M) PART B Jan 22, 2007 PART B [id number] REINA,JUSTYNA RGE PATIENT MEDICARE (WNR) MEDICARE (M) PART A Sep 22, 2005 PART A [id number] MALUTANVIJUSTYNA RGE PATIENT FOR LIFE TRICA RE FOR LIFE Jul 25, 2017 FOR LIFE [id number] ROBBIE HUANG JR PATIENT Selected Encounter This section includes the information on record at [place] for the Encounter. Date/Time Encounter Type Encounter Description Reason Provider Source Jan 11, 2025 10:45 AM OFF/OP EST NOVEMBER X REQ PHY/QHP PRIMARY CARE/MEDICINE ICD-10-CM I10 Essential (primary) hypertension ELSY LOPEZ IHKal Encounter Template Text not used by [place] Assessments - Encounter Diagnoses This section includes the primary and secondary diagnoses documented for the Encounter. Date/Time Primary/Secondary Diagnosis Diagnosis Name Provider Source Jan 21, 2025 10:15 AM PRIMARY Essential (primary) hypertension [facility] Plan of Treatment: Future Appointments (+ 6 months) and Future Tests (+/- 45 days) The Plan of Treatment section includes future care activities for the patient from all [place] treatmentfacilities. This section includes future appointments and future orders which are active, pending or scheduled. Future Appointments This section includes appointments that were scheduled to occur 6 months from the date of the Encounter, up to a maximum of 20 appointments. The data comes from all [place] treatment facilities. Appointment Date/Time Appointment Type Appointme nt Facility Name Jan 17, 2025 09:30 AM AMBULATORY - NONE [place] [facility] Jan 23, 2025 01:30 PM AMBULATORY - NONE [place] [facility] Jan 28, 2025 01:30 PM AMBULATORY - SURGERY [place] [facility] Jan 31, 2025 03:00 PM AMBULATORY - MEDICINE [facility] N[facility]ON[facility] Feb 05, 2025 01:00 PM AMBULATORY - MEDICINE [facility] NGTON[facility] Feb 05, 2025 02:00 PM AMBULATORY - MEDICINE [facility] NGTON[facility] Feb 07, 2025 01:15 PM AMBULATORY - MEDICINE SHAMIR NGTON [facility] Feb 08, 2025 01:30 PM AMBULATORY - NONE [place] [facility] Mar 04, 2025 01:30 PM AMBULATORY - NONE [place] [facility] Mar 18, 2025 01:30 PM AMBULATORY - NONE [place] [facility] Mar 19, 2025 01:00 PM AMBULATORY - MEDICINE [facility] Apr 11, 2025 02:00 PM AMBULATORY - MEDICINE [facility] Active, Pending, and Scheduled Orders This section includes a listing of several types of active, pending, and scheduled orders, including clinic medications orders, diagnostic test orders, procedure orders and consult orders; where the start date of the order is 45 days before the date of the Encounter or 45 days after the date of theEncounter. The data comes from all [place] treatment facilities. Test Date/Time Test Type Test Details Facility Name Feb 05, 2025 02:21 PM Procedure Order CP PULMONA RY FUNCTION TEST CP PULMONARY FUNCTION TEST Proc [facility] [facility] [facility] Lab Results: +/- 30 days of the encounter This section includes the Chemistry and Hematology Lab Results on record with [place] for the patient. Radiology Reports and Pathology Reports are provided separately, in subsequent sections. Lab Results This section contains the Chemistry/Hematology Results that were resulted 30 days before or 30 daysafter the date of the Encounter. Date/Time Source Result Type Result - Unit Interpretation Reference Range Specimen Type Comment Jan 28, 2025 02:32 PM [facility] WN CREATININE URINE Specimen Type: URINE No comment entered. Ordering Provider: APARNA KING Report Released Date/Time: Oct 02, 2024 03:22 PM Reporting Lab: [address] [address] Performing Lab: [address] [address] CREATININE 92.7 mg/dL Jan 28, 2025 02:32 PM [facility] TOTAL PROTEIN URINE Specimen Type: URINE No comment entered. Ordering Provider: APARNA KING Report Released Date/Time: Oct 02, 2024 03:22 PM Reporting Lab: [address] [address] Performing Lab: [address] [address] TOTAL PROTEIN 15 mg/dL H 0-14 Jan 28, 2025 02:32 PM [facility] URINALYSIS URINE Specimen Type: URINE Comment: Microscopic not indicated Ordering Provider: APARNA KING Report Released Date/Time: Oct 02, 2024 03:22 PM Reporting Lab: [address] [address] Performing Lab: [address] [address] URINE COLOR Light Yellow Colorless-Yello w APPEARANCE Clear Clear UROBILINOGEN Normal mg/dL Normal URINE BLOOD Negative Negative URINE BILIRUBIN Negative Negative URINE KETONES Negative mg/dL Negative URINE PROTEIN Negative mg/dL Negative-Tr rachell URINE PH 5.5 4.5-8.0 URINE NITRITE Negative Negative URINE LEUKOCYTE EST Negative Negative SPECIFIC GRAVITY 1.019 1.005-1.030 URINE GLUCOSE >1000 mg/dL H Negative Jan 28, 2025 02:21 PM [facility] 25-OH VITAMIN [...] Oct 02, 2024 03:22 PM Reporting Lab: [address] [address] Performing Lab: [address] [address] 25-OH VITAMIN D 40.7 ng/mL 20.0-50.0 Jan 28, 2025 02:21 PM [facility] PTH INTACT [...] Oct 02, 2024 03:22 PM Reporting Lab: [address] [address] Performing Lab: [address] [address] PTH INTACT (MCCALL) 130.0 pg/mL H 8.7-77.1 Jan 28, 2025 02:21 PM [facility] CBC/PLT BLOOD Specimen Type: BLOOD No comment entered. Ordering Provider: APARNA KING Report Released Date/Time: Oct 02, 2024 03:22 PM Reporting Lab: [address] [address] Performing Lab: [address] [address] WBC 6.5 10*3/uL 5.0-10.0 RBC 4.18 10*6/uL L 4.6-6.2 HGB 12.4 g/dL L 14.0-18.0 HCT 39.2 L 42.0-52.0 MCV 93.8 fL 80.0-94.0 MCH 29.7 pg 27.0-31.0 MCHC 31.6 g/dL L 32.0-36.0 PLT 212 10*3/uL 150-450 MPV 10.7 fL 9.0-13.1 RDW 13.9 11.0-16.0 NRBC 0.0 0.0-0.0 Jan 28, 2025 02:20 PM [facility] PHOSPHORUS PLASMA Specimen Type: PLASM A [...] Jan 17, 2025 09:57 AM Reporting Lab: [address] [address] Performing Lab: [address] [address] PHOSPHORUS 3.5 mg/dL 2.3-4.7 Jan 28, 2025 02:20 PM [facility] ALBUMIN PLASMA Specimen Type: PLASM A [...] Jan 17, 2025 09:57 AM Reporting Lab: [address] [address] Performing Lab: [address] [address] ALBUMIN 4.1 g/dL 3.5-5.2 Jan 28, 2025 02:20 PM [facility] PANEL 1 PLASMA Specimen Type: PLASM A [...] Jan 17, 2025 09:57 AM Reporting Lab: [address] [address] Performing Lab: [address] [address] CREATININE 2.55 mg/dL H 0.72-1.25 UREA NITROGEN 38 mg/dL H 9-25 GLUCOSE 91 mg/dL 74-100 SODIUM 142 mmol/L 136-145 POTASSIUM 4.5 mmol/L 3.5-5.1 CHLORIDE 109 mmol/L H 98-107 CO2 25 mmol/L 22-29 CALCIUM 8.8 mg/dL 8.4-10.2 ANION GAP 8 meq/L 3-19 eGFR (CKD-EPI) Jan 11, 2025 09:53 AM [facility] PANEL 1 PLASMA Specimen Type: PLASM A [...] Jan 08, 2025 02:55 PM Reporting Lab: [address] [address] Performing Lab: [address] [address] CREATININE 2.62 mg/dL H 0.72-1.25 UREA NITROGEN 46 mg/dL H 9-25 GLUCOSE 105 mg/dL H 74-100 SODIUM 143 mmol/L 136-145 POTASSIUM 4.7 mmol/L 3.5-5.1 CHLORIDE 107 mmol/L 98-107 CO2 25 mmol/L 22-29 CALCIUM 9.3 mg/dL 8.4-10.2 ANION GAP 11 meq/L 3-19 eGFR (CKD-EPI) Dec 31, 2024 12:02 PM [facility] GLUCOSE-HAND MONITOR CAPILLARY Specime n Type: CAPILLARY Comment: Test performed by: [id number] Meter #: [id number] Ordering Provider: CHLOE SEVERINO Report Released Date/Time: Dec 31, 2024 12:58 PM Reporting Lab: [address] [address] Performing Lab: [address] [address] GLUCOSE-HAND MONITOR 129 mg/dL H 71-99 Dec 31, 2024 07:50 AM [facility] PANEL 1 PLASMA Specimen Type: [...] Dec 30, 2024 08:23 AM Reporting Lab: [address] [address] Performing Lab: [place] [id number] CREATININE 2.04 mg/dL H 0.72-1.25 UREA NITROGEN 31 mg/dL H 9-25 GLUCOSE 94 mg/dL 74-100 SODIUM 138 mmol/L 136-145 POTASSIUM 4.4 mmol/L 3.5-5.1 CHLORIDE 105 mmol/L 98-107 CO2 25 mmol/L 22-29 CALCIUM 8.9 mg/dL 8.4-10.2 ANION GAP 8 meq/L 3-19 eGFR (CKD-EPI) 32 Dec 31, 2024 07:50 AM [facility] CBC/PLT BLOOD Specimen Type : BLOOD No comment entered. Ordering Provider: CHLOE SEVERINO Report Released Date/Time: Dec 30, 2024 08:23 AM Reporting Lab: [address] [address] Performing Lab: [place] [id number] WBC 8.2 10*3/uL 5.0-10.0 RBC 4.03 10*6/uL L 4.6-6.2 HGB 12.0 g/dL L 14.0-18.0 HCT 37.2 L 42.0-52.0 MCV 92.3 fL 80.0-94.0 MCH 29.8 pg 27.0-31.0 MCHC 32.3 g/dL 32.0-36.0 PLT 191 10*3/uL 150-450 MPV 10.5 fL 9.0-13.1 RDW 13.8 11.0-16.0 NRBC 0.0 0.0-0.0 Dec 31, 2024 06:38 AM [facility] GLUCOSE-HAND MONITOR CAPILLARY Specime n Type: CAPILLARY Comment: Test performed by: [id number] Meter #: [id number] Ordering Provider: CHLOE SEVERINO Report Released Date/Time: Dec 31, 2024 07:17 AM Reporting Lab: [place] [id number] Performing Lab: [address] [address] GLUCOSE-HAND MONITOR 99 mg/dL 71-99 Dec 30, 2024 08:10 PM [facility] GLUCOSE-HAND MONITOR CAPILLARY Specime n Type: CAPILLARY Comment: Test performed by: [id number] Meter #: [id number] Ordering Provider: CHLOE SEVERINO Report Released Date/Time: Dec 30, 2024 09:15 PM Reporting Lab: [place] [id number] Performing Lab: [place] [id number] GLUCOSE-HAND MONITOR 124 mg/dL H -99 Dec 30, 2024 04:21 PM [facility] GLUCOSE-HAND MONITOR CAPILLARY Specime n Type: CAPILLARY Comment: Test performed by: [id number] Meter #: [id number] Ordering Provider: CHLOE SEVERINO Report Released Date/Time: Dec 30, 2024 04:39 PM Reporting Lab: [place] [id number] Performing Lab: [place] [id number] GLUCOSE-HAND MONITOR 92 mg/dL 71-99 Dec 30, 2024 11:54 AM [facility] MRSA SURVL NARES DNA NARES [...] Dec 30, 2024 10:43 AM Reporting Lab: [place] [id number] Performing Lab: [place] [id number] MRSA SURVL NARES DNA Negative Negative Dec 30, 2024 11:39 AM [facility] GLUCOSE-HAND MONITOR CAPILLARY Specime n Type: CAPILLARY Comment: Test performed by: [id number] Meter #: [id number] Ordering Provider: CHLOE SEVERINO Report Released Date/Time: Dec 30, 2024 11:56 AM Reporting Lab: [place] [id number] Performing Lab: [place] [id number] GLUCOSE-HAND MONITOR 115 mg/dL H 71-99 Dec 30, 2024 07:46 AM [facility] CODE / REFRIGERATION MANAGER VENOUS BLOOD GAS VENOUS BLOOD Specimen Type: VENOUS BLOOD Comment: Collection Time: 12-30-2024 @ 07:46 Ordering Provider: KEYANNA EDMONDSON Report Released Date/Time: Dec 30, 2024 07:54 AM Reporting Lab: [place] [id number] Performing Lab: [place] [id number] .VpCO2 46 mm[Hg] 41-51 .VpH 7.34 7.33-7.43 Dec 30, 2024 07:46 AM [facility] CODE / REFRIGERATION MANAGER BLUE TOP PLASMA Specimen Type: PLASMA No comment entered. Ordering Provider: KEYANNA EDMONDSON Report Released Date/Time: Dec 30, 2024 07:53 AM Reporting Lab: [place] [id number] Performing Lab: [place] [id number] PT PATIENT 15.1 s H 11.7-14.4 INTERNATIONAL NORMALIZED RATIO 1.21 H 0 .87-1.14 PTT PATIENT 32.2 s 24.0-33.2 Dec 30, 2024 07:46 AM [facility] CODE / REFRIGERATION MANAGER GREEN TOP PLASMA Specimen Type: ALFREDITO [...] Dec 30, 2024 07:53 AM Reporting Lab: [address] [address] Performing Lab: [address] [address] IONIZED CALCIUM 1.13 mmol/L L 1.15-1.29 CREATININE [...] 6 4-35 Dec 30, 2024 07:46 AM [facility] CODE / REFRIGERATION MANAGER BACH TOP PLASMA Specimen Type: PLASMA No comment entered. Ordering Provider: KEYANNA EDMONDSON Report Released Date/Time: Dec 30, 2024 07:53 AM Reporting Lab: [address] [address] Performing Lab: [address] [address] LACTIC ACID 0.9 mmol/L 0.5-2.2 Dec 30, 2024 07:46 AM [facility] CODE / REFRIGERATION MANAGER LAVENDER TOP BLOOD Spec imen Type: BLOOD No comment entered. Ordering Provider: KEYANNA EDMONDSON Report Released Date/Time: Dec 30, 2024 07:53 AM Reporting Lab: [address] [address] Performing Lab: [address] [address] WBC 10.2 10*3/uL H 5.0-10.0 RBC 4.04 10*6/uL L 4.6-6.2 HGB 12.3 g/dL L 14.0-18.0 HCT 37.6 L 42.0-52.0 MCV 93.1 fL 80.0-94.0 MCH 30.4 pg 27.0-31.0 MCHC 32.7 g/dL 32.0-36.0 PLT 187 10*3/uL 150-450 MPV 10.2 fL 9.0-13.1 RDW 13.8 11.0-16.0 NRBC 0.0 0.0-0.0 Vital Signs: All taken on the encounter date This section contains inpatient and outpatient Vital Signs collected on the date of the Encounter. Date/Time Temperature Pulse Blood Pressure Respiratory Rate SP02 Pain Height Weight Body Mass Index Source Jan 11, 2025 11:04 AM 54 /min 124/65 mm[Hg] [place] [facility] Social History: Smoking Status (Most current) and Tobacco Use (All prior to encounter date) This section includes the most current, and the historical, smoking and tobacco- related health factors from the [place] facility where the Encounter took place. Current Smoking Status This section includes the most current smoking, or tobacco-related health factor, from the [place] facility where the Encounter took place. Date/Time Current Smoking Status Comment Kelechi ity May 25, 2023 01:30 PM VA-TOBACCO QUIT 15 YRS OR MORE [facility] Tobacco Use History This section includes a history of the smoking, or tobacco-related health factors, that were collected on or before the date of the Encounter. The data comes from the [place] facility where the Encounter took place. Date/Time [...] the Encounter. The data comes from all [place] treatment facilities. Date/Time Radiology Report Provider Source Jan 28, 2025 01:17 PM VENOUS DUPLEX LOWE R EXT BILAT: ROBBIE HUANG [id number] -1940 M Exm Date: JAN 28, 2025@13:17 Req Phys: DALIA COBB Pat Loc: VETO PACT WHITNEY 16-1 (Req'g Loc) Img Loc: VETO VAS LAB [facility] Service: Unknown (Case [id number] COMPLETE) VENOUS DUPLEX LOWER EXT BILAT (VAS Detailed) CPT:47319 Reason for Study: SEE CLINICAL HISTORY Clinical History: Venous Duplex for Valvular Competence/Venous Insufficiency: Chronic venous insufficiency Report Status: Verified Date Reported: JAN 29, 2025 Date Verified: JAN 29, 2025 Civil Engineering Professional E-Sig: Report: EXAM: VENOUS DUPLEX EXAM OF [...] Staff: NICOLASA FLORES, ATTENDING PHYSICIAN Verified by supervisor mold yard for NICOLASA FLORES /NICOLASA SOMMER [facility] Jan 28, 2025 01:17 PM SEGMENTAL PRESSURE S, LOWER EXT(FLORENCE) UNILAT: ROBBIE HUANG [id number] -1940 M Exm Date: JAN 28, 2025@13:17 Req Phys: DALIA COBB Pat Loc: [facility] PACT WHITNEY 16-1 (Req'g Loc) Img Loc: VETO VAS LAB [facility] Service: Unknown (Case [id number] COMPLETE) SEGMENTAL PRESSURES, LOWER EXT(AB(VAS Detailed) CPT:21052 Reason for Study: SEE CLINICAL HISTORY Clinical History: FLORENCE's/Segs Indications: Other: BLE edema, r/o PVD for compression tx. Report Status: Verified Date Reported: JAN 29, 2025 Date Verified: JAN 29, 2025 Civil Engineering Professional E-Sig: Report: LE segmental pressures TECHNIQUE: Continuous wave Doppler waveforms are obtained from pedal vessels, segmental pressures are measured at rest. Photoplethysmographic waveforms are obtained of the digits with pressure measurement. COMPARISON: No prior FINDINGS: Right: Right brachial arterial pressure is 134 mmHg. Multiphasic waveforms are noted in the right posterior tibial and right dorsalis pedis arteries. ABIs demonstrate calcification with right SATELLITE TV INSTALLER 1.44, left DPA 1.28. Right toe pressure is 115 mmHg. Left: Left brachial arterial pressure is 134 mmHg. Multiphasic waveforms are noted in the left posterior tibial and left dorsalis pedis arteries. ABIs demonstrate calcification with right SATELLITE TV INSTALLER 1.44, left DPA 1.21. Left toe pressure [...] Staff: NICOLASA FLORES, ATTENDING PHYSICIAN Verified by supervisor mold yard for NICOLASA FLORES /NICOLASA SOMMER [facility] Dec 30, 2024 01:13 AM [id number] RADIOLOGY EX AM PERF/INTER [facility] [id number] -1940 M Exm Date: DEC 30, 2024@01:13 Req Phys: DALIA COBB Loc: VETO X-RAY/ROUTINE/CDD/NC (Req' Img Loc: OUTSIDE2 LD RAD Service: Unknown (Case [id number] COMPLETE) 22550 RADIOLOGY EXAM PERF/INTER B(RAD Detailed) CPT:07281 Reason for Study: Exam imported from outside Clinical History: Original Data for Imported Study Patient Name: ROBBIE HUANG Date: 1940 Sex: M Study Date: 12/30/24 Study Time: 01:13:02 Study Description: XR CHEST PORTABLE Referring Physician: RICHARD CHAVES Series 1: 1 CR file Acquisition site: [facility] Report Status: Electronically Filed Date Reported: JAN 23, 2025 Report: Electronically generated report for outside study. Impression: Electronically generated report for outside study. Primary Diagnostic Code: VERIFIED BY: / *ELECTRONICALLY FILED* [facility] December 14, 2024 07:49 AM CARD. STRESS TEST W/TREADMILL/...[facility] [id number] -1940 M Exm Date: DECEMBER 14, 2024@07:49 Req Phys: DALIA COBB Abby Loc: [facility] PACT WHITNEY 16-1 (Req'g Loc) Img Loc: NUCLEAR MEDICINE Service: Unknown [place] [id number] (Case [id number] COMPLETE)CARD. STRESS TEST W/TREADMILL/...(NM Detailed) CPT:30695 Reason for Study: SEE CLINICAL HISTORY Clinical [...] 14, 2024 Date Verified: DECEMBER 14, 2024 Civil Engineering Professional E-Sig: Report: STUDY: GXT with vasodilator REPORT: [...] Staff: CHAO ORR APRN, Cardiology Verified by supervisor mold yard for CHAO ORR /CHAO GIRON-D [facility] December 14, 2024 07:49 AM [id number] REGADENOSON 0.1MG X4 (LEXISCAN): ROBBIE HUANG MICA [id number] -1940 M Exm Date: DECEMBER 14, 2024@07:49 Req Phys: DALIA COBB Loc: VETO PACT WHITNEY 16-1 (Req'g Loc) Img Loc: NUCLEAR MEDICINE Service: Unknown [place] [id number] (Case [id number] COMPLETE)[id number] REGADENOSON 0.1MG X4 (STEPHON(NM Detailed) CPT:J2785 Reason for Study: SEE CLINICAL HISTORY Clinical History: Cardiology approval by: [facility] SERVICE CONNECTED? No Active Outpatient Medications [...] 14, 2024 Date Verified: DECEMBER 14, 2024 Civil Engineering Professional E-Sig: Report: STUDY: GXT with vasodilator REPORT: [...] Staff: CHAO ORR APRN, Cardiology Verified by supervisor mold yard for CHAO ORR /CHAO GIRON-D [facility] December 14, 2024 07:49 AM CARD. STRESS TEST W/TREADMILL/...: ROBBIE HUANG [id number] -1940 M Exm Date: DECEMBER 14, 2024@07:49 Req Phys: DALIA COBB [facility] Img Loc: NUCLEAR MEDICINE Service: Unknown [place] [id number] (Case [id number] COMPLETE)CARD. STRESS TEST W/TREADMILL/...(NM Detailed) CPT:98602 Proc Modifiers : GXT Reason for Study: SEE CLINICAL HISTORY Clinical History: Cardiology approval by: [facility] SERVICE CONNECTED? No Active Outpatient Medications [...] 14, 2024 Date Verified: DECEMBER 14, 2024 Civil Engineering Professional E-Sig: Report: [place], [place] STUDY: Regadenoson (Lexiscan) SPECT Tc-99m myoview [...] performed with tomographic and three-dimensional reconstructions with Weele NM/CT 640 system. Exercise: Patient exercised for [...] data sets in addition to the conventional aps-rpqcvfxgmjq-yvgsjrzjw images. Both filtered back projection and iterative [...] ventricular cavity. 4. SPECT images: Attenuation-corrected and qyg-upechqjwpmf-ammbrwgez SPECT images were evaluated. SPECT images demonstrate [...] JEB SANTOS MD, CARDIOLOGY ATTENDING Verified by supervisor mold yard for JEB SANTOS MD /JEB [facility] December 14, 2024 07:49 AM 94859(D) MYOCARDIA L SPECT(MULTIPLE): ROBBIE HUANG [facility] [id number] [facility]1940 Ex Date: DECEMBER 14, 2024@07:49 Req Phys: DALIA COBB Loc: VETO PACT WHITNEY 16-1 (Req'g Loc) Im Loc: NUCLEAR MEDICINE Service: [place] [address] (Case [id number] COMPLETE)52990(D) MYOCARDIAL SPECT(MULTIPL(NM Detailed) CPT:69736 Proc Modifiers : Lexiscan (Regadenoson) CPT Modifiers [...] YENNY GAMBOA Clinical History: [facility]? No Active Outpatient Medications (including [...] 14, 2024 Date Verified: DECEMBER 14, 2024 Civil Engineering Professional E-Sig: Report: [facility], [place], [place] STUDY: Regadenoson (Lexiscan) SPECT Tc-99m myoview [...] performed with tomographic and three-dimensional reconstructions with Weele NM/CT 640 system. Exercise: Patient exercised for [...] data sets in addition to the conventional iyt-otvnjgdsqlt-cpprlslti images. Both filtered back projection and iterative [...] ventricular cavity. 4. SPECT images: Attenuation-corrected and hbs-ahkorwgznjo-yiabmsivw SPECT images were evaluated. SPECT images demonstrate [...] JEB SANTOS MD, CARDIOLOGY ATTENDING Verified by supervisor mold yard for JEB SANTOS MD /JEB MANCILLA-CDD [facility] December 14, 2024 07:49 AM MYOVIEW(1): ROBBIE HUANG [id number] -1940 M Exm Date: DECEMBER 14, 2024@07:49 Req Phys: DALIA COBB [facility] (Req'g Loc) Img Loc: NUCLEAR MEDICINE Service: [place] [address] (Case [id number] COMPLETE)MYOVIEW(1) (NM Detailed) CPT:A9502 Reason for Study: [...] 14, 2024 Date Verified: DECEMBER 14, 2024 Civil Engineering Professional E-Sig: Report: [place] STUDY: Regadenoson (Lexiscan) SPECT Tc-99m myoview [...] performed with tomographic and three-dimensional reconstructions with Weele NM/CT 640 system. Exercise: Patient exercised for [...] data sets in addition to the conventional pmf-arjykvqafla-hbisnzkcf images. Both filtered back projection and iterative [...] ventricular cavity. 4. SPECT images: Attenuation-corrected and eba-havyagwtear-belhorxcy SPECT images were evaluated. SPECT images demonstrate [...] JEB SANTOS MD, CARDIOLOGY ATTENDING Verified by supervisor mold yard for JEB SANTOS MD /JEB MANCILLA-[facility] December 14, 2024 07:49 AM [id number] REGADENOSON 0.1MG X1 (LEXISCAN): [facility] [id number] -1940 [facility] Date: DECEMBER 14, 2024@07:49 Req Phys: DALIA COBB Loc: VETO PACT WHITNEY 16-1 (Req'g Loc) Img Loc: NUCLEAR MEDICINE Service: [place] [address] (Case [id number] COMPLETE)[id number] REGADENOSON 0.1MG X1 (STEPHON(NM Detailed) CPT:J2785 [...] 14, 2024 Date Verified: DECEMBER 14, 2024 Civil Engineering Professional E-Sig: Report: [facility], [place], [place] STUDY: Regadenoson (Lexiscan) SPECT Tc-99m myoview [...] performed with tomographic and three-dimensional reconstructions with [employer]/CT 640 system. Exercise: Patient exercised for 6 [...] data sets in addition to the conventional rad-revjtifnuuh-kmheocjlt images. Both filtered back projection and iterative [...] ventricular cavity. 4. SPECT images: Attenuation-corrected and bup-opjfhproplr-rzbalxfdj SPECT images were evaluated. SPECT images demonstrate [...] JEB SANTOS MD, CARDIOLOGY ATTENDING Verified by supervisor mold yard for JEB SANTOS MD /JEB [facility] [facility] December 14, 2024 07:49 AM TC-99M X1 FROM NON -HEU SOURCE: ROBBIE HUANG [id number] -1940 M Exm Date: DECEMBER 14, 2024@07:49 Req Phys: DALIA COBB Pat Loc: VETO PACT WHITNEY 16-1 (Req'g Loc) Img Loc: NUCLEAR MEDICINE Service: [place] [address] (Case [id number] COMPLETE)TC-99M X1 FROM NON-HEU SOURCE (NM Detailed) CPT:Q9969 Reason for Study: SEE CLINICAL HISTORY Clinical History: [facility] CONNECTED? No Active Outpatient Medications (including [...] 14, 2024 Date Verified: DECEMBER 14, 2024 Civil Engineering Professional E-Sig: Report: [place], [place] STUDY: Regadenoson (Lexiscan) SPECT Tc-99m myoview [...] performed with tomographic and three-dimensional reconstructions with [employer]/CT 640 system. Exercise: Patient exercised for 6 [...] data sets in addition to the conventional qzw-icirsnigabo-htloasgvg images. Both filtered back projection and iterative [...] ventricular cavity. 4. SPECT images: Attenuation-corrected and bhm-qrgmpoedrym-ptuporebv SPECT images were evaluated. SPECT images demonstrate [...] JEB SANTOS MD, CARDIOLOGY ATTENDING Verified by supervisor mold yard for JEB SANTOS MD /JEB MANCILLA-CDD [facility] December 14, 2024 07:49 AM MYOVIEW(2): REINAROBBIE MICA [id number] -1940 M Exm Date: DECEMBER 14, 2024@07:49 Req Phys: DALIA COBB [facility] (Req'g Loc) Img Loc: NUCLEAR MEDICINE Service: [place] [address] (Case [id number] COMPLETE)MYOVIEW(2) (NM Detailed) CPT:A9502 Reason for Study: [...] 14, 2024 Date Verified: DECEMBER 14, 2024 Civil Engineering Professional E-Sig: Report: [place], [place] STUDY: Regadenoson (Lexiscan) SPECT Tc-99m myoview [...] performed with tomographic and three-dimensional reconstructions with [employer]/CT 640 system. Exercise: Patient exercised for [...] data sets in addition to the conventional yrt-rialoiqtbgz-xxmwgrqzo images. Both filtered back projection and iterative [...] ventricular cavity. 4. SPECT images: Attenuation-corrected and ugg-sappnbmtvqs-pgtoaezcl SPECT images were evaluated. SPECT images demonstrate [...] JEB SANTOS MD, CARDIOLOGY ATTENDING Verified by supervisor mold yard for JEB SANTOS MD /JEB MANCILLA-D [facility] December 14, 2024 07:49 AM [id number] REGADENOSON 0.1MG X2 (LEXISCAN): ROBBIE HUANG [id number] [facility]1940 M Ex Date: DECEMBER 14, 2024@07:49 Req Phys: DALIA COBB Loc: [facility] 16-1 (Req'g Loc) Img Loc: NUCLEAR MEDICINE Service: [place] [address] (Case [id number] COMPLETE)[id number] REGADENOSON 0.1MG X2 (STEPHON(NM Detailed) CPT:J2785 Reason for Study: SEE CLINICAL HISTORY Clinical History: Cardiology approval by: [facility] SERVICE CONNECTED? No Active Outpatient Medications [...] 14, 2024 Date Verified: DECEMBER 14, 2024 Civil Engineering Professional E-Sig: Report: [facility], [place], [place] STUDY: Regadenoson (Lexiscan) SPECT Tc-99m myoview [...] performed with tomographic and three-dimensional reconstructions with [employer] NM/CT 640 system. Exercise: Patient exercised for [...] data sets in addition to the conventional ecn-npfcvhkwsvy-dsbetsmsd images. Both filtered back projection and iterative [...] ventricular cavity. 4. SPECT images: Attenuation-corrected and xvt-ylvvcznlzlv-agbvswxgl SPECT images were evaluated. SPECT images demonstrate [...] JEB SANTOS MD, CARDIOLOGY ATTENDING Verified by supervisor mold yard for JEB SANTOS MD /JEB MANCILLA-CDD [facility] December 14, 2024 07:49 AM [id number] REGADENOSON 0.1MG X3 (LEXISCAN): ROBBIE HUANG [id number] -1940 M Exm Date: DECEMBER 14, 2024@07:49 Req Phys: DALIA COBB Pat Loc: [facility] 16-1 (Req'g Loc) Img Loc: NUCLEAR MEDICINE Service: [place] [address] (Case [id number] COMPLETE)[id number] REGADENOSON 0.1MG X3 (STEPHON(NM Detailed) CPT:J2785 [...] 14, 2024 Date Verified: DECEMBER 14, 2024 Civil Engineering Professional E-Sig: Report: [place], [place] STUDY: Regadenoson (Lexiscan) SPECT Tc-99m myoview [...] performed with tomographic and three-dimensional reconstructions with [employer]/CT 640 system. Exercise: Patient exercised for 6 [...] data sets in addition to the conventional smu-umydxldmflt-njubsvgbi images. Both filtered back projection and iterative [...] ventricular cavity. 4. SPECT images: Attenuation-corrected and zzj-sciadqpwoqc-qajdvnzwc SPECT images were evaluated. SPECT images demonstrate [...] JEB SANTOS MD, CARDIOLOGY ATTENDING Verified by supervisor mold yard for JEB SANTOS MD /JEB MANCILLA-D [facility] December 14, 2024 07:49 AM TC-99M X2 FROM NON -HEU SOURCE: ROBBIE HUANG [id number] -1940 M Exm Date: DECEMBER 14, 2024@07:49 Req Phys: DALIA COBB [facility] Img Loc: NUCLEAR MEDICINE Service: [place] [address] (Case [id number] COMPLETE)TC-99M X2 FROM NON-HEU SOURCE (NM Detailed) [...] 14, 2024 Date Verified: DECEMBER 14, 2024 Civil Engineering Professional E-Sig: Report: [place], [place] STUDY: Regadenoson (Lexiscan) SPECT Tc-99m myoview [...] performed with tomographic and three-dimensional reconstructions with [employer]/CT 640 system. Exercise: Patient exercised for [...] data sets in addition to the conventional uqu-ptabeazqnnl-fyoqmtlyt images. Both filtered back projection and iterative [...] ventricular cavity. 4. SPECT images: Attenuation-corrected and wdq-iajmefhsscy-rzisafiqo SPECT images were evaluated. SPECT images demonstrate [...] JEB SANTOS MD, CARDIOLOGY ATTENDING Verified by supervisor mold yard for JEB SANTOS MD /JEB MANCILLA-D [facility] Encounter Notes: All associated encounter notes This section contains the clinical notes associated to the Encounter. Date/Time Encounter Note(s) Provider Source Jan 11, 2025 11:01 AM NURSING NOTE: LOCAL TITLE: NURSING NOTE STANDARD TITLE: NURSING NOTE DATE OF NOTE: JAN 11, 2025@11:01 ENTRY DATE: JAN 11, 2025@11:01:56 AUTHOR: JOSE ARMANDO LOPEZ COSIGNER: URGENCY: STATUS: COMPLETED Yes - Irons/Caregiver verbalized understanding of topics discussed and education provided Recent BP results: Did patient check bp using proper technique: legs uncrossed, resting quietly, 30-60 minutes after having taken meds? Yes Current BP meds: metoprolol Any missed/skipped doses: No Any problems with current meds: No Diet: Caffeine daily Salt no added salt Bp was 124/65 PCP notified and had labs /es/ Jose Armando Lopez LPN Staff [facility] Signed: 01/11/2025 11:09 JOSE ARMANDO LOPEZ [facility]
--- OUTSIDE RECORDS SUMMARY | 2025-01-17 05:18 | XMS_ITS | Encounter Summary ---
Author Name [facility] [place] [facility] [place] Address [address] [place] [address] Care Team Providers Care Clinical Trial Specialist Name Role Phone JORDYN DALIA Primary [...] AUTOM OTIVE - RETI Jul 25, 2018 [id number] MALUTI PERKINS JORDAN SPOUSE MEDICARE (WNR) MEDICARE (M) PART B Jan 22, 2007 PART B [id number] MALUJUSTYNA TINAJERO RGE PATIENT MEDICARE (WNR) MEDICARE (M) PART A Sep 22, 2005 PART A [id number] REINAJUSTYNA RGE PATIENT FOR LIFE TRICA RE FOR LIFE Jul 25, 2017 FOR LIFE [id number] ROBBIE HUANG JR PATIENT Selected Encounter This section includes the information on record at [place] for the Encounter. Date/Time Encounter Type Encounter Description Reason Provider Source Jan 17, 2025 09:18 AM Outpatient Encounter HT NON-VIDEO MONITORING ICD-10-CM I10 Essential (primary) hypertension KEEGAN BRUNNER IHE Encounter Template Text not used by [place] Assessments - Encounter Diagnoses This section includes the primary and secondary diagnoses documented for the Encounter. Date/Time Primary/Secondary Diagnosis Diagnosis Name Provider Source Jan 17, 2025 09:23 AM PRIMARY Essential (primary) hypertension SRINIVASAN BRUNNER [facility] Plan of Treatment: Future Appointments (+ 6 months) and Future Tests (+/- 45 days) The Plan of Treatment section includes future care activities for the patient from all [place] treatmentfacilities. This section includes future appointments and future orders which are active, pending or scheduled. Future Appointments This section includes appointments that were scheduled to occur 6 months from the date of the Encounter, up to a maximum of 20 appointments. The data comes from all [place] treatment facilities. Appointment Date/Time Appointment Type Appointme nt Facility Name Jan 23, 2025 01:30 PM AMBULATORY - NONE [place] [facility] Jan 28, 2025 01:30 PM AMBULATORY - SURGERY [place] [facility] Jan 31, 2025 03:00 PM AMBULATORY - MEDICINE SHAM[facility] NGTON-CDD [facility] Feb 05, 2025 01:00 PM AMBULATORY - MEDICINE SHAMIR NGTON-CDD [facility] Feb 05, 2025 02:00 PM AMBULATORY - MEDICINE SHAMIR NGTON-CDD [facility] Feb 07, 2025 01:15 PM AMBULATORY - MEDICINE SHAMIR NGTON [facility] Feb 08, 2025 01:30 PM AMBULATORY - NONE [place] [facility] Mar 04, 2025 01:30 PM AMBULATORY - NONE [place] [facility] Mar 18, 2025 01:30 PM AMBULATORY - NONE [place] [facility] Mar 19, 2025 01:00 PM AMBULATORY - MEDICINE SHAMIR NGTON [facility] Apr 11, 2025 02:00 PM AMBULATORY - MEDICINE SHAMIR NGTON-CDD [facility] Active, Pending, and Scheduled Orders This section includes a listing of several types of active, pending, and scheduled orders, including clinic medications orders, diagnostic test orders, procedure orders and consult orders; where the start date of the order is 45 days before the date of the Encounter or 45 days after the date of theEncounter. The data comes from all [place] treatment facilities. Test Date/Time Test Type Test Details Facility Name Feb 05, 2025 02:21 PM Procedure Order CP PULMONA RY FUNCTION TEST CP PULMONARY FUNCTION TEST Proc [facility] Lab Results: +/- 30 days of the encounter This section includes the Chemistry and Hematology Lab Results on record with [place] for the patient. Radiology Reports and Pathology Reports are provided separately, in subsequent sections. Lab Results This section contains the Chemistry/Hematology Results that were resulted 30 days before or 30 daysafter the date of the Encounter. Date/Time Source Result Type Result - Unit Interpretation Reference Range Specimen Type Comment Jan 28, 2025 02:32 PM [facility] WN CREATININE URINE Specimen Type: URINE No comment entered. Ordering Provider: APARNA KING Report Released Date/Time: Oct 02, 2024 03:22 PM Reporting Lab: [address] [address] Performing Lab: [address] [address] CREATININE 92.7 mg/dL Jan 28, 2025 02:32 PM [facility] TOTAL PROTEIN URINE Specimen Type: URINE No comment entered. Ordering Provider: APARNA KING Report Released Date/Time: Oct 02, 2024 03:22 PM Reporting Lab: [address] [address] Performing Lab: [address] [address] TOTAL PROTEIN 15 mg/dL H 0-14 Jan 28, 2025 02:32 PM [facility] UR[facility]ALYSIS URINE Specimen Type: URINE Comment: Microscopic not indicated Ordering Provider: APARNA KING Report Released Date/Time: Oct 02, 2024 03:22 PM Reporting Lab: [address] [address] Performing Lab: [address] [address] URINE COLOR Light Yellow Colorless-Yello w APPEARANCE Clear Clear UROBILINOGEN Normal mg/dL Normal URINE BLOOD Negative Negative URINE BILIRUBIN Negative Negative URINE KETONES Negative mg/dL Negative URINE PROTEIN Negative mg/dL Negative-Tr rachell URINE PH 5.5 4.5-8.0 URINE NITRITE Negative Negative URINE LEUKOCYTE EST Negative Negative SPECIFIC GRAVITY 1.019 1.005-1.030 URINE GLUCOSE >1000 mg/dL H Negative Jan 28, 2025 02:21 PM [facility] 25-OH VITAMIN D SERUM Specime [...] Oct 02, 2024 03:22 PM Reporting Lab: [place] [phone] Performing Lab: [place] [phone] 25-OH VITAMIN D 40.7 ng/mL 20.0-50.0 Jan 28, 2025 02:21 PM [facility] PTH INTACT (MCCALL) PLASMA Spe [...] Oct 02, 2024 03:22 PM Reporting Lab: [address] [address] Performing Lab: [place] [phone] PTH INTACT (M[place]ALL) 130.0 pg/mL H 8.7-77.1 Jan 28, 2025 02:21 PM [facility] CBC/PLT BLOOD Specimen Type: BLOOD No comment entered. Ordering Provider: APARNA KING Report Released Date/Time: Oct 02, 2024 03:22 PM Reporting Lab: [facility] [address] [facility] [address] Performing Lab: [address] [address] WBC 6.5 10*3/uL 5.0-10.0 RBC 4.18 10*6/uL L 4.6-6.2 HGB 12.4 g/dL L 14.0-18.0 HCT 39.2 L 42.0-52.0 MCV 93.8 fL 80.0-94.0 MCH 29.7 pg 27.0-31.0 MCHC 31.6 g/dL L 32.0-36.0 PLT 212 10*3/uL 150-450 MPV 10.7 fL 9.0-13.1 RDW 13.9 11.0-16.0 NRBC 0.0 0.0-0.0 Jan 28, 2025 02:20 PM [facility] PLASMA Specimen Type: PLASM A Comment: [...] Jan 17, 2025 09:57 AM Reporting Lab: [address] [address] Performing Lab: [address] [address] PHOSPHORUS 3.5 mg/dL 2.3-4.7 Jan 28, 2025 02:20 PM [facility] ALBUMIN PLASMA Specimen Type: PLASM A [...] Jan 17, 2025 09:57 AM Reporting Lab: [address] [address] Performing Lab: [address] [address] ALBUMIN 4.1 g/dL 3.5-5.2 Jan 28, 2025 02:20 PM [facility] Specimen Type: PLASM [...] Jan 17, 2025 09:57 AM Reporting Lab: [address] [address] Performing Lab: [address] [address] CREATININE 2.55 mg/dL H 0.72-1.25 UREA NITROGEN 38 mg/dL H 9-25 GLUCOSE 91 mg/dL 74-100 SODIUM 142 mmol/L 136-145 POTASSIUM 4.5 mmol/L 3.5-5.1 CHLORIDE 109 mmol/L H 98-107 CO2 25 mmol/L 22-29 CALCIUM 8.8 mg/dL 8.4-10.2 ANION GAP 8 meq/L 3-19 eGFR (CKD-EPI) Jan 11, 2025 09:53 AM [facility] PLASMA Specimen Type: PLASM [...] Jan 08, 2025 02:55 PM Reporting Lab: [address] [address] Performing Lab: [address] [address] CREATININE 2.62 mg/dL H 0.72-1.25 UREA NITROGEN 46 mg/dL H 9-25 GLUCOSE 105 mg/dL H 74-100 SODIUM 143 mmol/L 136-145 POTASSIUM 4.7 mmol/L 3.5-5.1 CHLORIDE 107 mmol/L 98-107 CO2 25 mmol/L 22-29 CALCIUM 9.3 mg/dL 8.4-10.2 ANION GAP 11 meq/L 3-19 eGFR (CKD-EPI) Dec 31, 2024 12:02 PM [facility] GLUCOSE-HAND MONITOR CAPILLARY Specime n Type: CAPILLARY Comment: Test performed by: [id number] Meter #: [id number] Ordering Provider: CHLOE SEVERINO Report Released Date/Time: Dec 31, 2024 12:58 PM Reporting Lab: [facility] [address] [place] [address] Performing Lab: [address] [address] GLUCOSE-HAND MONITOR 129 mg/dL H 71-99 Dec 31, 2024 07:50 AM [facility] PANEL 1 PLASMA Specimen Type: PLASM [...] Dec 30, 2024 08:23 AM Reporting Lab: [place] [id number] Performing Lab: [place] [address] CREATININE 2.04 mg/dL H 0.72-1.25 UREA NITROGEN 31 mg/dL H 9-25 GLUCOSE 94 mg/dL 74-100 SODIUM 138 mmol/L 136-145 POTASSIUM 4.4 mmol/L 3.5-5.1 CHLORIDE 105 mmol/L 98-107 CO2 25 mmol/L 22-29 CALCIUM 8.9 mg/dL 8.4-10.2 ANION GAP 8 meq/L 3-19 eGFR (CKD-EPI) 32 Dec 31, 2024 07:50 AM [facility] CBC/PLT BLOOD Specimen Type : BLOOD No comment entered. Ordering Provider: CHLOE SEVERINO Report Released Date/Time: Dec 30, 2024 08:23 AM Reporting Lab: [place] [id number] Performing Lab: [place] [address] WBC 8.2 10*3/uL 5.0-10.0 RBC 4.03 10*6/uL L 4.6-6.2 HGB 12.0 g/dL L 14.0-18.0 HCT 37.2 L 42.0-52.0 MCV 92.3 fL 80.0-94.0 MCH 29.8 pg 27.0-31.0 MCHC 32.3 g/dL 32.0-36.0 PLT 191 10*3/uL 150-450 MPV 10.5 fL 9.0-13.1 RDW 13.8 11.0-16.0 NRBC 0.0 0.0-0.0 Dec 31, 2024 06:38 AM [facility] GLUCOSE-HAND MONITOR CAPILLARY Specime n Type: CAPILLARY Comment: Test performed by: [id number] Meter #: [id number] Ordering Provider: CHLOE SEVERINO Report Released Date/Time: Dec 31, 2024 07:17 AM Reporting Lab: [address] [address] Performing Lab: [address] [address] GLUCOSE-HAND MONITOR 99 mg/dL 71-99 Dec 30, 2024 08:10 PM [facility] GLUCOSE-HAND MONITOR CAPILLARY Specime n Type: CAPILLARY Comment: Test performed by: [id number] Meter #: [id number] Ordering Provider: CHLOE SEEVRINO Report Released Date/Time: Dec 30, 2024 09:15 PM Reporting Lab: [address] [address] Performing Lab: [address] [address] GLUCOSE-HAND MONITOR 124 mg/dL H -99 Dec 30, 2024 04:21 PM [facility] GLUCOSE-HAND MONITOR CAPILLARY Specime n Type: CAPILLARY Comment: Test performed by: [id number] Meter #: [id number] Ordering Provider: CHLOE SEVERINO Report Released Date/Time: Dec 30, 2024 04:39 PM Reporting Lab: [address] [address] Performing Lab: [address] [address] GLUCOSE-HAND MONITOR 92 mg/dL 71-99 Dec 30, 2024 11:54 AM [facility] MRSA SURVL NARES DNA NARES Specime [...] Dec 30, 2024 10:43 AM Reporting Lab: [address] [place] [address] Performing Lab: [address] [address] MRSA SURVL NARES DNA Negative Negative Dec 30, 2024 11:39 AM [facility] GLUCOSE-HAND MONITOR CAPILLARY Specime n Type: CAPILLARY Comment: Test performed by: [id number] Meter #: [id number] Ordering Provider: CHLOE SEVERINO Report Released Date/Time: Dec 30, 2024 11:56 AM Reporting Lab: [address] [address] Performing Lab: [place] [phone] GLUCOSE-HAND MONITOR 115 mg/dL H 71-99 Dec 30, 2024 07:46 AM [facility] CODE / OUTREACH REP VENOUS BLOOD GAS VENOUS BLOOD Specimen Type: VENOUS BLOOD Comment: Collection Time: 12-30-2024 @ 07:46 Ordering Provider: KEYANNA EDMONDSON Report Released Date/Time: Dec 30, 2024 07:54 AM Reporting Lab: [address] [address] Performing Lab: [address] [address] .VpCO2 46 mm[Hg] 41-51 .VpH 7.34 7.33-7.43 Dec 30, 2024 07:46 AM [facility] CODE / OUTREACH REP BLUE TOP PLASMA Specimen Type: PLASMA No comment entered. Ordering Provider: KEYANNA EDMONDSON Report Released Date/Time: Dec 30, 2024 07:53 AM Reporting Lab: [address] [address] Performing Lab: [address] [address] PT PATIENT 15.1 s H 11.7-14.4 INTERNATIONAL NORMALIZED RATIO 1.21 H 0 .87-1.14 PTT PATIENT 32.2 s 24.0-33.2 Dec 30, 2024 07:46 AM [facility] CODE / OUTREACH REP GREEN TOP PLASMA Specimen Type: ALFREDITO SMA [...] I information resource can be reached in [facility] in the Tools menu, under the Education [...] Dec 30, 2024 07:53 AM Reporting Lab: [address] [address] Performing Lab: [address] [address] IONIZED CALCIUM 1.13 mmol/L L 1.15-1.29 CREATININE [...] 6 4-35 Dec 30, 2024 07:46 AM [facility] CODE / OUTREACH REP BACH TOP PLASMA Specimen Type: PLASMA No comment entered. Ordering Provider: KEYANNA EDMONDSON Report Released Date/Time: Dec 30, 2024 07:53 AM Reporting Lab: [address] [address] Performing Lab: [address] [address] LACTIC ACID 0.9 mmol/L 0.5-2.2 Dec 30, 2024 07:46 AM [facility] CODE / OUTREACH REP LAVENDER TOP BLOOD Spec imen Type: BLOOD No comment entered. Ordering Provider: KEYANNA EDMONDSON Report Released Date/Time: Dec 30, 2024 07:53 AM Reporting Lab: [address] [address] Performing Lab: [address] [address] WBC 10.2 10*3/uL H 5.0-10.0 RBC 4.04 [...] and tobacco- related health factors from the [facility] where the Encounter took place. Current Smoking Status This section includes the most current smoking, or tobacco-related health factor, from the [place] facility where the Encounter took place. Date/Time Current Smoking Status Comment Kelechi limy May 25, 2023 01:30 PM VA-TOBACCO QUIT 15 YRS OR MORE [facility] Tobacco Use History This section includes a history of the smoking, or tobacco-related health factors, that were collected on or before the date of the Encounter. The data comes from the [place] facility where the Encounter took place. Date/Time Smoking Status/Tobacco Use Comment F acility May 25, 2023 01:30 PM VA-TOBACCO QUIT 15 YRS OR MORE [facility] Jun 18, 2022 01:30 PM VA-TOBACCO FORMER USER [facility] Jun 18, 2022 01:30 PM VA-TOBACCO QUIT 15 YRS OR MORE [facility] Jun 29, 2021 03:00 PM VA-TOBACCO FORMER USER [facility] Jun 29, 2021 03:00 PM VA-TOBACCO QUIT 15 YRS OR MORE [facility] Jul 28, 2020 09:30 AM VA-TOBACCO FORMER USER [facility] Jul 28, 2020 09:30 AM VA-TOBACCO QUIT 15 YRS OR MORE [facility] Jul 09, 2019 03:25 PM VA-TOBACCO NEVER USED [facility] Aug 24, 2018 02:06 PM VA-TOBACCO FORMER USER [facility] Aug 24, 2018 02:06 PM VA-TOBACCO QUIT 15 YRS OR MORE [facility] Sep 22, 2017 07:57 AM V9 LIFETIME NON-USER OF TOBACCO [facility] December 15, 2015 08:07 AM V9 LIFETIME NON-USER OF TOBACCO [facility] Jun 14, 2014 07:48 AM V9 LIFETIME NON-USER OF TOBACCO [facility] Jun 07, 2013 10:08 AM V9 LIFETIME NON-USER OF TOBACCO [facility] May 29, 2012 10:26 AM V9 LIFETIME NON-USER OF TOBACCO [facility] Nov 22, 2011 02:23 PM V9 LIFETIME NON-USER OF TOBACCO [facility] Oct 23, 2010 09:22 AM V9 QUIT TOBACCO >7 YEARS AGO [facility] May 30, 2007 03:08 PM V9 LIFETIME NON-USER OF TOBACCO [facility] Radiology Reports: +/- 30 days [...] the Encounter. The data comes from all [place] treatment facilities. Date/Time Radiology Report Provider Source Jan 28, 2025 01:17 PM VENOUS DUPLEX LOWE R EXT BILAT: ROBBIE HUANG [id number] -1940 M Exm Date: JAN 28, 2025@13:17 Req Phys: DALIA COBB Pat Loc: [facility]ETO PACT [place]IT[place] 16-1 (Req'g Loc) Img Loc: [facility] Service: Unknown (Case [id number] COMPLETE) VENOUS DUPLEX LOWER EXT BILAT (VAS Detailed) CPT:54805 Reason for Study: SEE CLINICAL HISTORY Clinical History: Venous Duplex for Valvular Competence/Venous Insufficiency: Chronic venous insufficiency Report Status: Verified Date Reported: JAN 29, 2025 Date Verified: JAN 29, 2025 Sandwich Wrapper E-Sig: Report: EXAM: VENOUS DUPLEX EXAM OF [...] Staff: NICOLASA FLORES, ATTENDING PHYSICIAN Verified by garbage collection supervisor for NICOLASA FLORES /NICOLASA SOMMER [facility] Jan 28, 2025 01:17 PM SEGMENTAL PRESSURE S, LOWER EXT(FLORENCE) UNILAT: ROBBIE HUANG [id number] -1940 M Exm Date: JAN 28, 2025@13:17 Req Phys: DALIA COBB R Pat Loc: [facility] PACT [place] 16-1 (Req'g Loc) Img Loc: [facility] VAS LAB [place] Service: Unknown (Case [id number] COMPLETE) SEGMENTAL PRESSURES, LOWER EXT(AB(VAS Detailed) CPT:47623 Reason for Study: SEE CLINICAL HISTORY Clinical History: FLORENCE's/Segs Indications: Other: BLE edema, r/o PVD for compression tx. Report Status: Verified Date Reported: JAN 29, 2025 Date Verified: JAN 29, 2025 Sandwich Wrapper E-Sig: Report: LE segmental pressures TECHNIQUE: Continuous wave Doppler waveforms are obtained from pedal vessels, segmental pressures are measured at rest. Photoplethysmographic waveforms are obtained of the digits with pressure measurement. COMPARISON: No prior FINDINGS: Right: Right brachial arterial pressure is 134 mmHg. Multiphasic waveforms are noted in the right posterior tibial and right dorsalis pedis arteries. ABIs demonstrate calcification with right PRODUCT MARKETING INTERN 1.44, left DPA 1.28. Right toe pressure is 115 mmHg. Left: Left brachial arterial pressure is 134 mmHg. Multiphasic waveforms are noted in the left posterior tibial and left dorsalis pedis arteries. ABIs demonstrate calcification with right PRODUCT MARKETING INTERN 1.44, left DPA 1.21. Left toe pressure [...] Staff: NICOLASA FLORES, ATTENDING PHYSICIAN Verified by garbage collection supervisor for NICOLASA MCLEAN [facility] Dec 30, 2024 01:13 AM [id number] RADIOLOGY EX AM PERF/INTER BY OTHER FACILITY: ROBBIE HUANG [id number] -1940 M Exm Date: DEC 30, 2024@01:13 Req Phys: DALIA COBB Loc: VETO X-RAY/ROUTINE/CDD/[place] (Req' Img Loc: OUTSIDE2 LD RAD Service: Unknown (Case [id number] COMPLETE) [id number] RADIOLOGY EXAM PERF/INTER B(RAD Detailed) CPT:77757 Reason for Study: Exam imported from outside Clinical History: Original Data for Imported Study Patient Name: ROBBIE HUANG Date: 1940 Sex: M Study Date: 12/30/24 Study Time: 01:13:02 Study Description: XR CHEST PORTABLE Referring Physician: RICHARD CHAVES Series 1: 1 CR file Acquisition site: [facility] Report Status: Electronically Filed Date Reported: JAN 23, 2025 Report: Electronically generated report for outside study. Impression: Electronically generated report for outside study. Primary Diagnostic Code: VERIFIED BY: / *ELECTRONICALLY FILED* [facility] Encounter Notes: All associated encounter notes This section contains the clinical notes associated to the Encounter. Date/Time Encounter Note(s) Provider Source Jan 17, 2025 09:19 AM CARE COORDINATION HOME TELEHEALTH SUMMARIZATION NOTE: LOCAL TITLE: MONTHLY MONITOR NOTE STANDARD TITLE: CARE COORDINATION HOME TELEHEALTH SUMMARIZATION DATE OF NOTE: JAN 17, 2025@09:19 ENTRY DATE: JAN 17, 2025@09:19:21 AUTHOR: GARCIA BRUNNER COSIGNER: URGENCY: STATUS: COMPLETED The is enrolled in the Home Telehealth (HT) program and continues to be monitored via HT technology. The data sent by the [facility] is reviewed and analyzed by the HT staff, who provide ongoing case management and health education while communicating and collaborating with the health care team as appropriate. This note covers a total of 30 minutes for the month monitored. Month monitored: December/ GARCIA BRUNNER, MSN, RN-BC [employer]ER Signed: 01/17/2025 09:24 G[facility] BRUNNER [facility]
--- OUTSIDE RECORDS SUMMARY | 2025-01-17 05:30 | XMS_ITS | Encounter Summary ---
Author Name [facility] [place] [facility] [place] [facility] [facility] [place] Address [address] [place] [address] Care Team Providers Care Linux Server Administrator Name Role Phone JORDYN DALIA Primary Care [...] AUTOM OTIVE - RETI Jul 25, 2018 [id number] KAMARA SPOUSE MEDICARE (WNR) MEDICARE (M) PART B Jan 22, 2007 PART B [id number] MALUJUSTYNA TINAJERO RGE PATIENT MEDICARE (WNR) MEDICARE (M) PART A Sep 22, 2005 PART A [id number] MALUJUSTYNA TINAJERO PATIENT FOR LIFE TRICA RE FOR LIFE Jul 25, 2017 FOR LIFE [id number] ROBBIE HUANG JR PATIENT Selected Encounter This section includes the information on [place] at [place] for the Encounter. Date/Time Encounter Type Encounter Description Reason Provider Source Jan 17, 2025 09:30 AM MTMS BY PHARM ALEJANDRO 15 MIN TELEPHONE/ANCILLAR Y ICD-10-CM I50.22 Chronic systolic (congestive) heart failure KAMI MCGINNIS IHKal Encounter Template Text not used by [place] Assessments - Encounter Diagnoses This section includes the primary and secondary diagnoses documented for the Encounter. Date/Time Primary/Secondary Diagnosis Diagnosis Name Provider Source Jan 17, 2025 09:30 AM PRIMARY Chronic systolic (congestive) [facility] Treatment: Future Appointments (+ 6 months) and Future Tests (+/- 45 days) The Plan of Treatment section includes future care activities for the patient from all [place] treatmentfacilities. This section includes future appointments and future orders which are active, pending or scheduled. Future Appointments This section includes appointments that were scheduled to occur 6 months from the date of the Encounter, up to a maximum of 20 appointments. The data comes from all [place] treatment facilities. Appointment Date/Time Appointment Type Appointme nt Facility Name Jan 23, 2025 01:30 PM [facility]ORY - NONE [facility] Jan 28, 2025 01:30 PM AMBULATORY - SURGERY [facility] Jan 31, 2025 03:00 PM AMBULATORY - MEDICINE [facility] Feb 05, 2025 01:00 PM AMBULATORY - MEDICINE [facility] Feb 05, 2025 02:00 PM AMBULATORY - MEDICINE [facility] Feb 07, 2025 01:15 PM AMBULATORY - MEDICINE [facility] Feb 08, 2025 01:30 PM [facility]ORY - NONE [facility] Mar 04, 2025 01:30 PM [facility] - NONE [facility] [facility] Mar 18, 2025 01:30 PM [facility] - NONE [facility] [facility] Mar 19, 2025 01:00 PM AMBULATORY - MEDICINE [facility] Apr 11, 2025 02:00 PM AMBULATORY - MEDICINE [facility] Active, Pending, and Scheduled Orders This section includes a listing of several types of active, pending, and scheduled orders, including clinic medications orders, diagnostic test orders, procedure orders and consult orders; where the start date of the order is 45 days before the date of the Encounter or 45 days after the date of theEncounter. The data comes from all [place] treatment facilities. Test Date/Time Test Type Test Details Facility Name Feb 05, 2025 02:21 PM Procedure Order CP PULMONA RY FUNCTION TEST CP PULMONARY FUNCTION TEST Proc Retail Associate's Choice [facility] Lab Results: +/- 30 days [...] Type Comment Jan 28, 2025 02:32 PM [facility] WN TOTAL PROTEIN URINE Specimen Type: URINE No comment entered. Ordering Provider: APARNA KING Report Released Date/Time: Oct 02, 2024 03:22 PM Reporting Lab: [address] [address] Performing Lab: [address] [address] TOTAL PROTEIN 15 mg/dL H 0-14 Jan 28, 2025 02:32 PM [facility] CREATININE URINE Specimen Type: URINE No comment entered. Ordering Provider: APARNA KING Report Released Date/Time: Oct 02, 2024 03:22 PM Reporting Lab: [address] [address] Performing Lab: [address] [address] CREATININE 92.7 mg/dL Jan 28, 2025 02:32 PM [facility] URINALYSIS URINE Specimen Type: URINE Comment: Microscopic not indicated Ordering Provider: APARNA KING Report Released Date/Time: Oct 02, 2024 03:22 PM Reporting Lab: [address] [address] Performing Lab: [address] [address] URINE COLOR Light Yellow Colorless-Yello w APPEARANCE Clear Clear UROBILINOGEN Normal mg/dL Normal URINE BLOOD Negative Negative URINE BILIRUBIN Negative Negative URINE KETONES Negative mg/dL Negative URINE PROTEIN Negative mg/dL Negative-Tr rachell URINE PH 5.5 4.5-8.0 URINE NITRITE Negative Negative URINE LEUKOCYTE EST Negative Negative SPECIFIC GRAVITY 1.019 1.005-1.030 URINE GLUCOSE >1000 mg/dL H Negative Jan 28, 2025 02:21 PM [facility] 25-OH VITAMIN D SERUM Specime [...] Oct 02, 2024 03:22 PM Reporting Lab: [address] [address] Performing Lab: [address] [address] 25-OH VITAMIN D 40.7 ng/mL 20.0-50.0 Jan 28, 2025 02:21 PM [facility] PTH INTACT (MCCALL) PLASMA Spe [...] Oct 02, 2024 03:22 PM Reporting Lab: [address] [address] Performing Lab: [address] [address] PTH INTACT (MCCALL) 130.0 pg/mL H 8.7-77.1 Jan 28, 2025 02:21 PM [facility] Specimen Type: BLOOD No comment entered. Ordering Provider: APARNA KING Report Released Date/Time: Oct 02, 2024 03:22 PM Reporting Lab: [address] [address] Performing Lab: [address] [address] WBC 6.5 10*3/uL 5.0-10.0 RBC 4.18 10*6/uL L 4.6-6.2 HGB 12.4 g/dL L 14.0-18.0 HCT 39.2 L 42.0-52.0 MCV 93.8 fL 80.0-94.0 MCH 29.7 pg 27.0-31.0 MCHC 31.6 g/dL L 32.0-36.0 PLT 212 10*3/uL 150-450 MPV 10.7 fL 9.0-13.1 RDW 13.9 11.0-16.0 NRBC 0.0 0.0-0.0 Jan 28, 2025 02:20 PM [facility] PHOSPHORUS PLASMA Specimen Type: PLASM [...] Jan 17, 2025 09:57 AM Reporting Lab: [address] [address] Performing Lab: [address] [address] PHOSPHORUS 3.5 mg/dL 2.3-4.7 Jan 28, 2025 02:20 PM [facility] ALBUMIN PLASMA Specimen Type: PLASM A [...] Jan 17, 2025 09:57 AM Reporting Lab: [address] [address] Performing Lab: [address] [address] ALBUMIN 4.1 g/dL 3.5-5.2 Jan 28, 2025 02:20 PM [facility] Specimen Type: PLASM [...] Jan 17, 2025 09:57 AM Reporting Lab: [address] [address] Performing Lab: [address] [address] CREATININE 2.55 mg/dL H 0.72-1.25 UREA NITROGEN 38 mg/dL H 9-25 GLUCOSE 91 mg/dL 74-100 SODIUM 142 mmol/L 136-145 POTASSIUM 4.5 mmol/L 3.5-5.1 CHLORIDE 109 mmol/L H 98-107 CO2 25 mmol/L 22-29 CALCIUM 8.8 mg/dL 8.4-10.2 ANION GAP 8 meq/L 3-19 eGFR (CKD-EPI) Jan 11, 2025 09:53 AM [facility]ASMA Specimen Type: PLASM [...] Jan 08, 2025 02:55 PM Reporting Lab: [address] [address] Performing Lab: [address] [address] CREATININE 2.62 mg/dL H 0.72-1.25 UREA NITROGEN 46 mg/dL H 9-25 GLUCOSE 105 mg/dL H 74-100 SODIUM 143 mmol/L 136-145 POTASSIUM 4.7 mmol/L 3.5-5.1 CHLORIDE 107 mmol/L 98-107 CO2 25 mmol/L 22-29 CALCIUM 9.3 mg/dL 8.4-10.2 ANION GAP 11 meq/L 3-19 eGFR (CKD-EPI) Dec 31, 2024 12:02 PM [facility] GLUCOSE-HAND MONITOR CAPILLARY Specime n Type: CAPILLARY Comment: Test performed by: [id number] Meter #: [id number] Ordering Provider: CHLOE SEVERINO Report Released Date/Time: Dec 31, 2024 12:58 PM Reporting Lab: [facility] [address] [place] [address] Performing Lab: [address] [address] GLUCOSE-HAND MONITOR 129 mg/dL H 71-99 Dec 31, 2024 07:50 AM [facility] PANEL 1 PLASMA Specimen Type: [...] Dec 30, 2024 08:23 AM Reporting Lab: [place] [phone] Performing Lab: [place] [phone] CREATININE 2.04 mg/dL H 0.72-1.25 UREA NITROGEN 31 mg/dL H 9-25 GLUCOSE 94 mg/dL 74-100 SODIUM 138 mmol/L 136-145 POTASSIUM 4.4 mmol/L 3.5-5.1 CHLORIDE 105 mmol/L 98-107 CO2 25 mmol/L 22-29 CALCIUM 8.9 mg/dL 8.4-10.2 ANION GAP 8 meq/L 3-19 eGFR (CKD-EPI) 32 Dec 31, 2024 07:50 AM [facility] CBC/PLT BLOOD Specimen Type : BLOOD No comment entered. Ordering Provider: CHLOE SEVERINO Report Released Date/Time: Dec 30, 2024 08:23 AM Reporting Lab: [place] [phone] Performing Lab: [place] [phone] WBC 8.2 10*3/uL 5.0-10.0 RBC 4.03 10*6/uL L 4.6-6.2 HGB 12.0 g/dL L 14.0-18.0 HCT 37.2 L 42.0-52.0 MCV 92.3 fL 80.0-94.0 MCH 29.8 pg 27.0-31.0 MCHC 32.3 g/dL 32.0-36.0 PLT 191 10*3/uL 150-450 MPV 10.5 fL 9.0-13.1 RDW 13.8 11.0-16.0 NRBC 0.0 0.0-0.0 Dec 31, 2024 06:38 AM [facility] GLUCOSE-HAND MONITOR CAPILLARY Specime n Type: CAPILLARY Comment: Test performed by: [id number] Meter #: [id number] Ordering Provider: CHLOE SEVERINO Report Released Date/Time: Dec 31, 2024 07:17 AM Reporting Lab: [address] [address] Performing Lab: [address] [address] GLUCOSE-HAND MONITOR 99 mg/dL 71-99 Dec 30, 2024 08:10 PM [facility] GLUCOSE-HAND MONITOR CAPILLARY Specime n Type: CAPILLARY Comment: Test performed by: [id number] Meter #: [id number] Ordering Provider: CHLOE SEVERINO Report Released Date/Time: Dec 30, 2024 09:15 PM Reporting Lab: [address] [address] Performing Lab: [address] [address] GLUCOSE-HAND MONITOR 124 mg/dL H 71-99 Dec 30, 2024 04:21 PM [facility] GLUCOSE-HAND MONITOR CAPILLARY Specime n Type: CAPILLARY Comment: Test performed by: [id number] Meter #: [id number] Ordering Provider: CHLOE SEVERINO Report Released Date/Time: Dec 30, 2024 04:39 PM Reporting Lab: [address] [address] Performing Lab: [address] [address] GLUCOSE-HAND MONITOR 92 mg/dL 71-99 Dec 30, 2024 11:54 AM [facility] MRSA SURVL NARES DNA NARES [...] Dec 30, 2024 10:43 AM Reporting Lab: [address] [address] Performing Lab: [address] [address] MRSA SURVL NARES DNA Negative Negative Dec 30, 2024 11:39 AM [facility] GLUCOSE-HAND MONITOR CAPILLARY Specime n Type: CAPILLARY Comment: Test performed by: [id number] Meter #: [id number] Ordering Provider: CHLOE SEVERINO Report Released Date/Time: Dec 30, 2024 11:56 AM Reporting Lab: [address] [address] Performing Lab: [place] [phone] GLUCOSE-HAND MONITOR 115 mg/dL H 71-99 Dec 30, 2024 07:46 AM [facility] CODE / LABOR DELIVERY SPECIALIST VENOUS BLOOD GAS VENOUS BLOOD Specimen Type: VENOUS BLOOD Comment: Collection Time: 12-30-2024 @ 07:46 Ordering Provider: KEYANNA EDMONDSON Report Released Date/Time: Dec 30, 2024 07:54 AM Reporting Lab: [address] [address] Performing Lab: [address] [address] .VpCO2 46 mm[Hg] 41-51 .VpH 7.34 7.33-7.43 Dec 30, 2024 07:46 AM [facility] CODE / LABOR DELIVERY SPECIALIST BLUE TOP PLASMA Specimen Type: PLASMA No comment entered. Ordering Provider: KEYANNA EDMONDSON Report Released Date/Time: Dec 30, 2024 07:53 AM Reporting Lab: [address] [address] Performing Lab: [address] [address] PT PATIENT 15.1 s H 11.7-14.4 INTERNATIONAL NORMALIZED RATIO 1.21 H 0 .87-1.14 PTT PATIENT 32.2 s 24.0-33.2 Dec 30, 2024 07:46 AM [facility] CODE / LABOR DELIVERY SPECIALIST GREEN TOP PLASMA Specimen Type: ALFREDITO SMA [...] Dec 30, 2024 07:53 AM Reporting Lab: [address] [address] Performing Lab: [address] [address] IONIZED CALCIUM 1.13 mmol/L L 1.15-1.29 CREATININE [...] 6 4-35 Dec 30, 2024 07:46 AM [facility] CODE / LABOR DELIVERY SPECIALIST BACH TOP PLASMA Specimen Type: PLASMA No comment entered. Ordering Provider: KEYANNA EDMONDSON Report Released Date/Time: Dec 30, 2024 07:53 AM Reporting Lab: [address] [address] Performing Lab: [address] [address] LACTIC ACID 0.9 mmol/L 0.5-2.2 Dec 30, 2024 07:46 AM [facility] CODE / LABOR DELIVERY SPECIALIST LAVENDER TOP BLOOD Spec imen Type: BLOOD No comment entered. Ordering Provider: KEYANNA EDMONDSON Report Released Date/Time: Dec 30, 2024 07:53 AM Reporting Lab: [address] [address] Performing Lab: [address] [address] WBC 10.2 10*3/uL H 5.0-10.0 RBC 4.04 [...] and tobacco- related health factors from the [place] facility where the Encounter took place. Current Smoking Status This section includes the most current smoking, or tobacco-related health factor, from the [place] facility where the Encounter took place. Date/Time Current Smoking Status Comment Facil ity May 10, 2024 02:00 PM VA-TOBACCO NEVER USED [facility] Tobacco Use History This section includes a history of the smoking, or tobacco-related health factors, that were collected on or before the date of the Encounter. The data comes from the [place] facility where the Encounter took place. Date/Time Smoking Status/Tobacco Use Comment F acility May 19, 2017 03:22 AM NON-TOBACCO USE INPATIENT [facility] Sep 07, 2016 02:41 AM NON-TOBACCO USE INPATIENT [facility] Apr 21, 2004 08:29 AM HF V9 CURRENT NON-SMOKER quit smoking about 30 yrs ago [facility] Sep 06, 2002 02:26 PM HF V9 CURRENT NON-SMOKER QUIT SMOKING ABOUT 31 YRS AGO [facility] Radiology Reports: +/- 30 days [...] the Encounter. The data comes from all [facility] facilities. Date/Time Radiology Report Provider Source Jan 28, 2025 01:17 PM VENOUS DUPLEX LOWE R EXT BILAT: ROBBIE HUANG [id number] -1940 M Exm Date: JAN 28, 2025@13:17 Req Phys: DALIA COBB Loc: [facility]O PACT [place]IT[place] 16-1 (Req'g Loc) Img Loc: VETO VAS LAB [facility] Service: Unknown (Case [id number] COMPLETE) VENOUS DUPLEX LOWER EXT BILAT (VAS Detailed) CPT:48476 Reason for Study: SEE CLINICAL HISTORY Clinical History: Venous Duplex for Valvular Competence/Venous Insufficiency: Chronic venous insufficiency Report Status: Verified Date Reported: JAN 29, 2025 Date Verified: JAN 29, 2025 Dielectric Testing Machine Operator E-Sig: Report: EXAM: VENOUS DUPLEX EXAM OF [...] Staff: NICOLASA FLORES, ATTENDING PHYSICIAN Verified by crystal machining coordinator for NICOLASA FLORES /[facility] Jan 28, 2025 01:17 PM SEGMENTAL PRESSURE S, LOWER EXT([place]) [facility] [id number] -1940 M Exm Date: JAN 28, 2025@13:17 Req Phys: DALIA COBB Pat Loc: [facility] PACT [facility] 16-1 (Req'g Loc) Img Loc: VETO VAS LAB [facility] Service: Unknown (Case [id number] COMPLETE) SEGMENTAL PRESSURES, LOWER EXT(AB(VAS Detailed) CPT:29617 Reason for Study: SEE CLINICAL HISTORY Clinical History: FLORENCE's/Segs Indications: Other: BLE edema, r/o PVD for compression tx. Report Status: Verified Date Reported: JAN 29, 2025 Date Verified: JAN 29, 2025 Dielectric Testing Machine Operator E-Sig: Report: LE segmental pressures TECHNIQUE: Continuous wave Doppler waveforms are obtained from pedal vessels, segmental pressures are measured at rest. Photoplethysmographic waveforms are obtained of the digits with pressure measurement. COMPARISON: No prior FINDINGS: Right: Right brachial arterial pressure is 134 mmHg. Multiphasic waveforms are noted in the right posterior tibial and right dorsalis pedis arteries. ABIs demonstrate calcification with right ARRT TECHNOLOGIST 1.44, left DPA 1.28. Right toe pressure is 115 mmHg. Left: Left brachial arterial pressure is 134 mmHg. Multiphasic waveforms are noted in the left posterior tibial and left dorsalis pedis arteries. ABIs demonstrate calcification with right ARRT TECHNOLOGIST 1.44, left DPA 1.21. Left toe pressure [...] Staff: NICOLASA FLORES, ATTENDING PHYSICIAN Verified by crystal machining coordinator for NICOLASA FLORES /NICOLASA SOMMER [facility] Dec 30, 2024 01:13 AM [id number] RADIOLOGY EX AM PERF/INTER BY OTHER FACILITY: ROBBIE HUANG [id number] -1940 Exm Date: DEC 30, 2024@01:13 Req Phys: DALIA COBB Loc: VETO X-RAY/ROUTINE/CDD/NC (Req' Img Loc: OUTSIDE2 LD RAD Service: Unknown (Case [id number] COMPLETE) [id number] RADIOLOGY EXAM PERF/INTER B(RAD Detailed) CPT:86306 Reason for Study: Exam imported from outside Clinical History: Original Data for Imported Study Patient Name: ROBBIE HUANG Date: 1940 Sex: M Study Date: 12/30/24 Study Time: 01:13:02 Study Description: XR CHEST PORTABLE Referring Physician: RICHARD CHAVES Series 1: 1 CR file Acquisition site: [facility] Report Status: Electronically Filed Date Reported: JAN 23, 2025 Report: Electronically generated report for outside study. Impression: Electronically generated report for outside study. Primary Diagnostic Code: VERIFIED BY: / *ELECTRONICALLY FILED* [facility] Encounter Notes: All associated encounter notes This section contains the clinical notes associated to the Encounter. Date/Time Encounter Note(s) Provider Source Jan 17, 2025 09:37 AM PHARMACY TELEPHONE ENCOUNTER NOTE: LOCAL TITLE: CARDIOLOGY PHARMACOTHERAPY TELEPHONE NOTE STANDARD TITLE: PHARMACY TELEPHONE ENCOUNTER NOTE DATE OF NOTE: JAN 17, 2025@09:37 ENTRY DATE: JAN 17, 2025@09:37:35 AUTHOR: KAMI MCGINNIS COSIGNER: URGENCY: STATUS: COMPLETED ROBBIE HUANG JR is an 84 year old WHITE MALE who was contacted via telephone in regards to recent hospitalization with heart failure exacerbation (dc'd 12/31/24). Murdock confirms decreasing furosemide from daily dosing to PRN dosing. He says he took one PRN dose of furosemide yesterday for some LE edema. Currently in [place] visiting family - has not monitored BP/HR/weight the past two days due to travel however says he brought his HT equipment with him to use. Current Cardiac Regimen: 1. amlodipine 10 mg daily 2. clopidogrel 75 mg daily 3. empagliflozin 10 mg every morning 4. furosemide 40 mg daily PRN weight gain/fluid 5. metoprolol succinate 25 mg daily 6. rosuvastatin 10 mg daily Medication adherence: organizes his own medications, uses weekly train planner Murdock taken extra doses or missed doses of medication? ( ) Yes (x) No Previous cardiac medications: carvedilol dc'd 2021, metoprolol tartrate dc'd 2018, ramipril dc'd 2018, simvastatin dc'd 2016, atorvastatin dc'd 2008 Foreseeable Barriers to adherence: enrolled in [facility] (x) Yes ( ) No Does patient have weight scale? (x) Yes ( ) No Does patient have BP cuff? 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 on 12/30 for chest pain. He states he has had chest pain since yesterday that is constant, worse with inspiration, radiates to right arm, and is not relieved by rest, nitroglycerin, supine/upright positioning, and not aggravated by anything besides breathing. He was initially STEMI alerted, but upon review, EKGs unchanged with chronic bifascicular block and this was cancelled. Cardiology Problem List: 1) Noncardiac chest pain 2) CAD -- LAD territory scar on SPECT -- RCA PCI in 2001 post cardiac arrest 3) HFrEF due to ICM 4) Interstitial lung disease, undifferentiated 5) HLD 6) DMII 7) Chronic Bifascicular Block CARDIAC SYMPTOMS: (-) Change in Shortness of Air (SOA) (-) SOA at rest (-) SOA with minimal exertion-walking around house, ADL's (+) SOA with heavy exertion-walking uphill, climbing stairs, etc. Walks, bikes, weights, stretching exercises for at least 30 minutes 5 or more times/wk. 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[employer]), has not started back walking yet Diet: Breakfast: orange, pear or other fruit, fried egg, sausage or hemls Lunch: skips if he eats a late breakfast, tries to avoid processed meats Dinner: occasionally will have microwavable meal, lots of chicken, usually baked, not much beef Snacks: not anymore got away from chips Additional Salt Intake: none Fluid Intake: no more carbonated beverages, mostly water, coffee, lemonade Restaurant Meals: [employer] (tries to avoid fried foods though), 2-3x/week HT Weight/BP log: Patient Name: ROBBIE HUANG Disease(s): CHF, Hypertension Date Range: 01/08/2025 - 01/17/2025 took PRN dose of furosemide 01/16/25 [facility] Vitals Report Reading Date Sys/[facility] BP-HR Weight 01/15/25 141/63 (08:11) 55 (08:11) 179.4 (08:13) 01/15/25 154.6 (08:12) 01/14/25 136/72 (21:05) 62 (21:05) 180.6 (08:24) 01/14/25 144/68 (08:23) 54 (08:23) 01/13/25 124/62 (21:11) 66 (21:11) 181.0 (08:59) 01/13/25 128/70 (08:58) 55 (08:58) 01/12/25 132/67 (20:53) 67 (20:53) 01/12/25 124/68 (10:44) 61 (10:44) 01/11/25 122/63 (20:15) 58 (20:15) 179.2 (08:06) 01/11/25 134/61 (08:10) 58 (08:10) 01/11/25 129/95 (08:06) 56 (08:06) 01/10/25 119/67 (20:03) 64 (20:03) 179.6 (08:15) 01/10/25 131/65 (08:14) 56 (08:14) 01/09/25 134/65 (21:08) 67 (21:08) 176.4 (11:11) 01/09/25 128/71 (11:10) 64 (11:10) 01/08/25 128/68 (21:04) 63 (21:04) 177.8 (08:53) 01/08/25 131/69 (08:52) 57 (08:52) [facility] Average Report Sys/[facility] BP-HR Weight Average 130/68 60 176.1 High 144/95 67 181.0 Low 119/61 54 154.6 PREVIOUS ENCOUNTERS Disease(s): CHF, Hypertension Date Range: 12/25/2024 - 01/08/2025 [facility] Vitals Report Reading Date Sys/[facility] BP-HR Weight 01/08/25 131/69 (08:52) 57 (08:52) 177.8 (08:53) 01/07/25 122/63 (21:17) 62 (21:17) 183.2 (12:37) - fully clothed 01/07/25 137/71 (12:19) 64 (12:19) 01/06/25 144/69 (20:28) 66 (20:28) 01/06/25 121/68 (13:36) 59 (13:36) 01/05/25 124/72 (21:39) 61 (21:39) 01/05/25 119/63 (08:40) 58 (08:40) 01/04/25 127/64 (21:29) 63 (21:29) 01/04/25 128/69 (12:16) 69 (12:16) 01/03/25 123/68 (21:01) 64 (21:01) 01/03/25 130/65 (12:41) 63 (12:41) 01/02/25 123/67 (19:33) 72 (19:33) 01/02/25 135/68 (12:13) 72 (12:13) 01/01/25 128/63 (20:56) 72 (20:56) 01/01/25 117/62 (11:22) 65 (11:22) 12/28/24 139/71 (21:10) 72 (21:10) 12/28/24 131/71 (15:22) 67 (15:22) 12/26/24 141/68 (13:00) 80 (13:00) 12/25/24 141/74 (09:56) 62 (09:56) [facility] Average Report Sys/[facility] BP-HR Weight Average 130/68 66 180.5 High 144/74 80 183.2 Low 117/62 57 177.8 Objective: OBJECTIVE FINDINGS: Vitals/Labs: BP: 124/65 (01/11/2025 11:04) Pulse: 54 (01/11/2025 11:04) Weight: 179.1 lb [81.24 kg] (12/31/2024 10:59) BODY MASS INDEX - 29.0 LABS: PANEL 1 Lexy. date GLUCOSE BUN CREAT SODIUM K CHLOR CO2 01/11/25 09:53 105 H 46 H 2.62 H 143 4.7 107 25 12/31/24 05:00 94 31 H 2.04 H 138 4.4 105 25 12/30/24 07:46 115 H 31 H 1.97 H 139 4.4 108 H 23 M.3 mg/dL (12/30/2024 07:46) Collection DT Specimen Test Name Result Units Ref Range 05/25/2024 11:17 PLASMA!! CHOLESTEROL 144 mg/dL 0 - 199 05/25/2024 11:17 PLASMA!! TRIGLYCERIDE 97 mg/dL 0 - 149 05/25/2024 11:17 PLASMA!! HDL CHOLESTEROL 42 mg/dL 40 - 69 05/25/2024 11:17 PLASMA!! DIRECT LDL CHOL. 81 mg/dL 0 - 100 !! Indicates COMMENTS AVAILABLE...Refer to Interim Lab Report. Adult Echocardiogram Report Study Date: 12/06/2024 12:20 PM Interpretation Summary A complete two-dimensional transthoracic echocardiogram [...] reduced. The visually estimated LVEF is '35-40%'. Reading Physician: Joe Lambert MD 12/06/2024 01:47 PM Allergies: ASPIRIN, ATORVASTATIN Active Outpatient Medications (including Supplies): Active Outpatient Medications Status 1) EMPAGLIFLOZIN 10MG TAB TAKE ONE TABLET BY MOUTH EVERY ACTIVE MORNING PROTEINURIA 2) FUROSEMIDE 40MG TAB TAKE ONE TABLET BY MOUTH DAILY - TAKE IN ACTIVE THE MORNING Indication: FOR FLUID 3) METOPROLOL SUCCINATE 25MG SA TAB TAKE ONE TABLET BY MOUTH ACTIVE DAILY Indication: FOR HEART FAILURE Active Non-VA Medications Status 1) Non-VA AMLODIPINE [...] TAB 1000MCG MOUTH DAILY ACTIVE 6) Non-VA LEVOCETIRIZINE DIHYDROCHLORIDE 5MG TAB 5MG MOUTH ACTIVE DAILY 7) Non-VA MULTIVIT/OPHTH AREDS2/LUTE/ZEAX CAP/TAB 1 SOFTGEL ACTIVE MOUTH TWICE A DAY AFTER MEALS 8) Non-VA ROSUVASTATIN TAB 10MG MOUTH DAILY ACTIVE Indication: FOR CHOLESTEROL 11 Total Medications Assessment/Plan: - Heart Failure (HFrEF), NYHA Class II: - Volume: presumed euvolemic per s/sx and weights; requested to monitor for weight gain > 3 lbs/day or > 5 lbs/week as well as s/sx of fluid and to take PRN dose of furosemide if needed, will recheck BMP - GDMT: RAASi: none due to renal function BB: metoprolol succinate 25 mg daily, not at target dose, will titrate as able, but likely limited by HRs SGLT2i: empagliflozin 10 mg every morning, continue MRA: none, will defer due to borderline eGFR ~ 32 ml/min - Monitoring: Weight, BP, HR daily. Discussed with importance of daily weights to help determine diuretic dosing and BP/HR for GDMT. - Education: see below - Medication Plan: Continue current cardiac regimen: amlodipine 10 mg daily clopidogrel 75 mg daily empagliflozin 10 mg every morning furosemide 40 mg daily PRN weight gain/fluid metoprolol succinate 25 mg daily rosuvastatin 10 mg daily - - - - - - - - - - - - - - - - - - - - - - - - - - - - - - - - - - - - - - - - HF Education: - Reviewed common s/s of HF (weight gain, swelling, SOA, fatigue) - Advised pt to monitor/record BP and HR daily ~2 hours after taking BP medications - Advised pt to monitor/record weights daily upon wakening and after voiding. - Reviewed indications, directions for use, and common side effects of HF medications verbalized understanding and agreed with plan above. Advised to call if questions or concerns prior to next follow up. Time spent on phone with : 12 minutes Follow-up: via telephone ~ 1 week Alert to [facility]: Please schedule VETO CARDIO PHARMD PHONE visit for 01/23/25 @ [phone]. Thank you PBM PharmD Pharmacotherapy Rem V12: PHARMACIST INTERVENTIONS: HEART FAILURE Medication monitoring, no dosage change required, continue to monitor and assess /jack/ Kami Mcginnis PharmD, BCPS Clinical Bicycle I Assembler - Cardiology Signed: 01/17/2025 09:56 Receipt Acknowledged By: 01/17/2025 11:48 /jack/ Obinna Savage [facility] 01/18/2025 12:03 /jack/ GARCIA BRUNNER, MSN, RN-BC [facility] [employer] KAMI MCGINNIS-CDD [facility]
--- OUTSIDE RECORDS SUMMARY | 2025-01-21 10:50 | XMS_ITS | Encounter Summary ---
Author Name [facility] Address [address] [place] [address] Care Team Providers Care Spring Tier Name Role Phone DALIA COBB Primary Care [...] AUTOM OTIVE - RETI Jul 25, 2018 [id number] TI KAMARA SPOUSE MEDICARE (WNR) MEDICARE (M) PART B Jan 22, 2007 PART B [id number] JUSTYNA HUANG RGE PATIENT MEDICARE (WNR) MEDICARE (M) PART A Sep 22, 2005 PART A [id number] [phone] [id number] MALUJUSTYNA TINAJERO PATIENT FOR LIFE TRICA RE FOR LIFE Jul 25, 2017 FOR LIFE [id number] ROBBIE HUANG JR PATIENT Selected Encounter This section includes the information on record at [place] for the Encounter. Date/Time Encounter Type Encounter Description Reason Provider Source Jan 21, 2025 02:50 PM PH1 ASSMT&MGMT NQHP 11-20 TELEPHONE BY STAFF ICD-10-CM I10 Essential (primary) hypertension KEEGAN BRUNNER Kal Encounter Template Text not used by [place] Assessments - Encounter Diagnoses This section includes the primary and secondary diagnoses documented for the Encounter. Date/Time Primary/Secondary Diagnosis Diagnosis Name Provider Source Jan 21, 2025 02:50 PM PRIMARY Essential (primary) hypertension SRINIVASAN BRUNNER [facility] Plan of Treatment: Future Appointments (+ 6 months) and Future Tests (+/- 45 days) The Plan of Treatment section includes future care activities for the patient from all [place] treatmentfacilities. This section includes future appointments and future orders which are active, pending or scheduled. Future Appointments This section includes appointments that were scheduled to occur 6 months from the date of the Encounter, up to a maximum of 20 appointments. The data comes from all [place] treatment facilities. Appointment Date/Time Appointment Type Appointme nt Facility Name Jan 23, 2025 01:30 PM AMBULATORY - NONE [place] [facility] Jan 28, 2025 01:30 PM AMBULATORY - SURGERY [place] [facility] [facility] Jan 31, 2025 03:00 PM AMBULATORY - MEDICINE SHAMIR NGTON-CDD [facility] Feb 05, 2025 01:00 PM AMBULATORY - MEDICINE SHAMIR NGTON-D [facility] Feb 05, 2025 02:00 PM AMBULATORY - MEDICINE SHAMIR NGTON-CDD [facility] Feb 07, 2025 01:15 PM AMBULATORY - MEDICINE SHAM[facility]GTON [facility] Feb 08, 2025 01:30 PM AMBULATORY - NONE [place] [facility] Mar 04, 2025 01:30 PM AMBULATORY - NONE [place] [facility] Mar 18, 2025 01:30 PM AMBULATORY - NONE [place] [facility] Mar 19, 2025 01:00 PM AMBULATORY - MEDICINE SHAMIR NGTON [facility] Apr 11, 2025 02:00 PM AMBULATORY [...] of theEncounter. The data comes from all [place] treatment facilities. Test Date/Time Test Type Test Details Facility Name Feb 05, 2025 02:21 PM Procedure Order CP PULMONA RY FUNCTION TEST CP PULMONARY FUNCTION TEST Proc [employer] [facility] Lab Results: +/- 30 days of the encounter This section includes the Chemistry and Hematology Lab Results on record with [place] for the patient. Radiology Reports and Pathology Reports are provided separately, in subsequent sections. Lab Results This section contains the Chemistry/Hematology Results that were resulted 30 days before or 30 daysafter the date of the Encounter. Date/Time Source Result Type Result - Unit Interpretation Reference Range Specimen Type Comment Jan 28, 2025 02:32 PM [facility] WN CREATININE URINE Specimen Type: URINE No comment entered. Ordering Provider: APARNA KING Report Released Date/Time: Oct 02, 2024 03:22 PM Reporting Lab: [address] [address] Performing Lab: [address] [address] CREATININE 92.7 mg/dL Jan 28, 2025 02:32 PM [facility] TOTAL PROTEIN URINE Specimen Type: URINE No comment entered. Ordering Provider: APARNA KING Report Released Date/Time: Oct 02, 2024 03:22 PM Reporting Lab: [address] [address] Performing Lab: [address] [address] TOTAL PROTEIN 15 mg/dL H 0-14 Jan 28, 2025 02:32 PM [facility] URINALYSIS URINE Specimen Type: URINE Comment: Microscopic not indicated Ordering Provider: APARNA KING Report Released Date/Time: Oct 02, 2024 03:22 PM Reporting Lab: [address] [address] Performing Lab: [address] [address] URINE COLOR Light Yellow Colorless-Yello w APPEARANCE Clear Clear UROBILINOGEN Normal mg/dL Normal URINE BLOOD Negative Negative URINE BILIRUBIN Negative Negative URINE KETONES Negative mg/dL Negative URINE PROTEIN Negative mg/dL Negative-Tr rachell URINE PH 5.5 4.5-8.0 URINE NITRITE Negative Negative URINE LEUKOCYTE EST Negative Negative SPECIFIC GRAVITY 1.019 1.005-1.030 URINE GLUCOSE >1000 mg/dL H Negative Jan 28, 2025 02:21 PM [facility] 25-OH VITAMIN D SERUM Specime [...] Oct 02, 2024 03:22 PM Reporting Lab: [address] [address] Performing Lab: [address] [address] 25-OH VITAMIN D 40.7 ng/mL 20.0-50.0 Jan 28, 2025 02:21 PM [facility] PTH INTACT (MCCALL) PLASMA Spe [...] Oct 02, 2024 03:22 PM Reporting Lab: [address] [address] Performing Lab: [address] [address] PTH INTACT (MCCALL) 130.0 pg/mL H 8.7-77.1 Jan 28, 2025 02:21 PM [facility] CBC/PLT BLOOD Specimen Type: BLOOD No comment entered. Ordering Provider: APARNA KING Report Released Date/Time: Oct 02, 2024 03:22 PM Reporting Lab: [address] [address] Performing Lab: [address] [address] WBC 6.5 10*3/uL 5.0-10.0 RBC 4.18 10*6/uL L 4.6-6.2 HGB 12.4 g/dL L 14.0-18.0 HCT 39.2 L 42.0-52.0 MCV 93.8 fL 80.0-94.0 MCH 29.7 pg 27.0-31.0 MCHC 31.6 g/dL L 32.0-36.0 PLT 212 10*3/uL 150-450 MPV 10.7 fL 9.0-13.1 RDW 13.9 11.0-16.0 NRBC 0.0 0.0-0.0 Jan 28, 2025 02:20 PM [facility] PHOSPHORUS PLASMA Specimen Type: PLASM [...] Jan 17, 2025 09:57 AM Reporting Lab: [address] [address] Performing Lab: [address] [address] PHOSPHORUS 3.5 mg/dL 2.3-4.7 Jan 28, 2025 02:20 PM [facility] ALBUMIN PLASMA Specimen Type: PLASM A Comment: [...] Jan 17, 2025 09:57 AM Reporting Lab: [address] [address] Performing Lab: [address] [address] ALBUMIN 4.1 g/dL 3.5-5.2 Jan 28, 2025 02:20 PM [facility] PANEL 1 PLASMA Specimen Type: PLASM [...] Jan 17, 2025 09:57 AM Reporting Lab: [address] [address] Performing Lab: [address] [address] CREATININE 2.55 mg/dL H 0.72-1.25 UREA NITROGEN 38 mg/dL H 9-25 GLUCOSE 91 mg/dL 74-100 SODIUM 142 mmol/L 136-145 POTASSIUM 4.5 mmol/L 3.5-5.1 CHLORIDE 109 mmol/L H 98-107 CO2 25 mmol/L 22-29 CALCIUM 8.8 mg/dL 8.4-10.2 ANION GAP 8 meq/L 3-19 eGFR (CKD-EPI) Jan 11, 2025 09:53 AM [facility]AS[facility] Specimen [...] Jan 08, 2025 02:55 PM Reporting Lab: [address] [address] Performing Lab: [address] [address] CREATININE 2.62 mg/dL H 0.72-1.25 UREA NITROGEN 46 mg/dL H 9-25 GLUCOSE 105 mg/dL H 74-100 SODIUM 143 mmol/L 136-145 POTASSIUM 4.7 mmol/L 3.5-5.1 CHLORIDE 107 mmol/L 98-107 CO2 25 mmol/L 22-29 CALCIUM 9.3 mg/dL 8.4-10.2 ANION GAP 11 meq/L 3-19 eGFR (CKD-EPI) Dec 31, 2024 12:02 PM [facility] GLUCOSE-HAND MONITOR CAPILLARY Specime n Type: CAPILLARY Comment: Test performed by: [id number] Meter #: [id number] Ordering Provider: CHLOE SEVERINO Report Released Date/Time: Dec 31, 2024 12:58 PM Reporting Lab: [facility] [address] [place] [address] Performing Lab: [address] [address] GLUCOSE-HAND MONITOR 129 mg/dL H 71-99 Dec 31, 2024 07:50 AM [facility] PANEL 1 PLASMA Specimen Type: [...] Dec 30, 2024 08:23 AM Reporting Lab: [place] [id number] Performing Lab: [place] [address] CREATININE 2.04 mg/dL H 0.72-1.25 UREA NITROGEN 31 mg/dL H 9-25 GLUCOSE 94 mg/dL 74-100 SODIUM 138 mmol/L 136-145 POTASSIUM 4.4 mmol/L 3.5-5.1 CHLORIDE 105 mmol/L 98-107 CO2 25 mmol/L 22-29 CALCIUM 8.9 mg/dL 8.4-10.2 ANION GAP 8 meq/L 3-19 eGFR (CKD-EPI) 32 Dec 31, 2024 07:50 AM [facility] CBC/PLT BLOOD Specimen Type : BLOOD No comment entered. Ordering Provider: CHLOE SEVERINO Report Released Date/Time: Dec 30, 2024 08:23 AM Reporting Lab: [place] [phone] Performing Lab: [place] [address] WBC 8.2 10*3/uL 5.0-10.0 RBC 4.03 10*6/uL L 4.6-6.2 HGB 12.0 g/dL L 14.0-18.0 HCT 37.2 L 42.0-52.0 MCV 92.3 fL 80.0-94.0 MCH 29.8 pg 27.0-31.0 MCHC 32.3 g/dL 32.0-36.0 PLT 191 10*3/uL 150-450 MPV 10.5 fL 9.0-13.1 RDW 13.8 11.0-16.0 NRBC 0.0 0.0-0.0 Dec 31, 2024 06:38 AM [facility] GLUCOSE-HAND MONITOR CAPILLARY Specime n Type: CAPILLARY Comment: Test performed by: [id number] Meter #: [id number] Ordering Provider: CHLOE SEVERINO Report Released Date/Time: Dec 31, 2024 07:17 AM Reporting Lab: [address] [address] Performing Lab: [address] [address] GLUCOSE-HAND MONITOR 99 mg/dL 71-99 Dec 30, 2024 08:10 PM [facility] GLUCOSE-HAND MONITOR CAPILLARY Specime n Type: CAPILLARY Comment: Test performed by: [id number] Meter #: [id number] Ordering Provider: CHLOE SEVERINO Report Released Date/Time: Dec 30, 2024 09:15 PM Reporting Lab: [address] [address] Performing Lab: [address] [address] GLUCOSE-HAND MONITOR 124 mg/dL H 71-99 Dec 30, 2024 04:21 PM [facility] GLUCOSE-HAND MONITOR CAPILLARY Specime n Type: CAPILLARY Comment: Test performed by: [id number] Meter #: [id number] Ordering Provider: CHLOE SEVERINO Report Released Date/Time: Dec 30, 2024 04:39 PM Reporting Lab: [address] [address] Performing Lab: [address] [address] GLUCOSE-HAND MONITOR 92 mg/dL 71-99 Dec 30, 2024 11:54 AM [facility] MRSA SURVL NARES DNA NARES [...] Dec 30, 2024 10:43 AM Reporting Lab: [address] [address] Performing Lab: [address] [address] MRSA SURVL NARES DNA Negative Negative Dec 30, 2024 11:39 AM [facility] GLUCOSE-HAND MONITOR CAPILLARY Specime n Type: CAPILLARY Comment: Test performed by: [id number] Meter #: [id number] Ordering Provider: CHLOE SEVERINO Report Released Date/Time: Dec 30, 2024 11:56 AM Reporting Lab: [address] [address] Performing Lab: [address] [address] GLUCOSE-HAND MONITOR 115 mg/dL H 71-99 Dec 30, 2024 07:46 AM [facility] CODE / FRUIT OR NUT GROWER VENOUS BLOOD GAS VENOUS BLOOD Specimen Type: VENOUS BLOOD Comment: Collection Time: 12-30-2024 @ 07:46 Ordering Provider: KEYANNA EDMONDSON Report Released Date/Time: Dec 30, 2024 07:54 AM Reporting Lab: [address] [address] Performing Lab: [address] [address] .VpCO2 46 mm[Hg] 41-51 .VpH 7.34 7.33-7.43 Dec 30, 2024 07:46 AM [facility] CODE / FRUIT OR NUT GROWER BLUE TOP PLASMA Specimen Type: PLASMA No comment entered. Ordering Provider: KEYANNA EDMONDSON Report Released Date/Time: Dec 30, 2024 07:53 AM Reporting Lab: [address] [address] Performing Lab: [address] [address] PT PATIENT 15.1 s H 11.7-14.4 INTERNATIONAL NORMALIZED RATIO 1.21 H 0 .87-1.14 PTT PATIENT 32.2 s 24.0-33.2 Dec 30, 2024 07:46 AM [facility] CODE / FRUIT OR NUT GROWER GREEN TOP PLASMA Specimen Type: ALFREDITO SMA [...] Dec 30, 2024 07:53 AM Reporting Lab: [address] [address] Performing Lab: [address] [address] IONIZED CALCIUM 1.13 mmol/L L 1.15-1.29 CREATININE [...] 6 4-35 Dec 30, 2024 07:46 AM [facility] CODE / FRUIT OR NUT GROWER BACH TOP PLASMA Specimen Type: PLASMA No comment entered. Ordering Provider: KEYANNA EDMONDSON Report Released Date/Time: Dec 30, 2024 07:53 AM Reporting Lab: [address] [address] Performing Lab: [address] [address] LACTIC ACID 0.9 mmol/L 0.5-2.2 Dec 30, 2024 07:46 AM [facility] CODE / FRUIT OR NUT GROWER LAVENDER TOP BLOOD Spec imen Type: BLOOD No comment entered. Ordering Provider: KEYANNA EDMONDSON Report Released Date/Time: Dec 30, 2024 07:53 AM Reporting Lab: [address] [address] Performing Lab: [address] [address] WBC 10.2 10*3/uL H 5.0-10.0 RBC 4.04 [...] and tobacco- related health factors from the [place] facility where the Encounter took place. Current Smoking Status This section includes the most current smoking, or tobacco-related health factor, from the [place] facility where the Encounter took place. Date/Time Current Smoking Status Comment Kelechi dial May 25, 2023 01:30 PM VA-TOBACCO FORMER USER [facility] Tobacco Use History This section includes a history of the smoking, or tobacco-related health factors, that were collected on or before the date of the Encounter. The data comes from the [place] facility where the Encounter took place. Date/Time Smoking Status/Tobacco Use Comment F acility May 25, 2023 01:30 PM VA-TOBACCO QUIT 15 YRS OR MORE [facility] Jun 18, 2022 01:30 PM VA-TOBACCO FORMER USER [facility] Jun 18, 2022 01:30 PM VA-TOBACCO QUIT 15 YRS OR MORE [facility] Jun 29, 2021 03:00 PM VA-TOBACCO FORMER USER [facility] Jun 29, 2021 03:00 PM VA-TOBACCO QUIT 15 YRS OR MORE [facility] Jul 28, 2020 09:30 AM VA-TOBACCO FORMER USER [facility] Jul 28, 2020 09:30 AM VA-TOBACCO QUIT 15 YRS OR MORE [facility] Jul 09, 2019 03:25 PM VA-TOBACCO NEVER USED [facility] Aug 24, 2018 02:06 PM VA-TOBACCO FORMER USER [facility] Aug 24, 2018 02:06 PM VA-TOBACCO QUIT 15 YRS OR MORE [facility] Sep 22, 2017 07:57 AM V9 LIFETIME NON-USER OF TOBACCO [facility] December 15, 2015 08:07 AM V9 LIFETIME NON-USER OF TOBACCO [facility] Jun 14, 2014 07:48 AM V9 LIFETIME NON-USER OF TOBACCO [facility] Jun 07, 2013 10:08 AM V9 LIFETIME NON-USER OF TOBACCO [facility] May 29, 2012 10:26 AM V9 LIFETIME NON-USER OF TOBACCO [facility] Nov 22, 2011 02:23 PM V9 LIFETIME NON-USER OF TOBACCO [facility] Oct 23, 2010 09:22 AM V9 QUIT TOBACCO >7 YEARS AGO [facility] May 30, 2007 03:08 PM V9 LIFETIME NON-USER OF TOBACCO [facility] Radiology Reports: +/- 30 days [...] the Encounter. The data comes from all [place] treatment facilities. Date/Time Radiology Report Provider Source Jan 28, 2025 01:17 PM VENOUS DUPLEX LOWE R EXT BILAT: ROBBIE HUANG [id number] -1940 M Exm Date: JAN 28, 2025@13:17 Req Phys: DALIA COBB Pat Loc: VETO PACT [place]IT[place] 16-1 (Req'g Loc) Img Loc: VETO VAS LAB [facility] Service: Unknown (Case [id number] COMPLETE) VENOUS DUPLEX LOWER EXT BILAT (VAS Detailed) CPT:81932 Reason for Study: SEE CLINICAL HISTORY Clinical History: Venous Duplex for Valvular Competence/Venous Insufficiency: Chronic venous insufficiency Report Status: Verified Date Reported: JAN 29, 2025 Date Verified: JAN 29, 2025 Senior Maintenance Machinist E-Sig: Report: EXAM: VENOUS DUPLEX EXAM OF [...] Staff: NICOLASA FLORES, ATTENDING PHYSICIAN Verified by environmental field professional for [facility] Jan 28, 2025 01:17 PM SEGMENTAL PRESSURE S, LOWER EXT([place]) UNILAT: ROBBIE HUANG [id number] -1940 M Exm Date: JAN 28, 2025@13:17 Req Phys: DALIA COBB R Pat Loc: VETO PACT [place] 16-1 (Req'g Loc) Img Loc: VETO VAS LAB [place] Service: Unknown (Case [id number] COMPLETE) SEGMENTAL PRESSURES, LOWER EXT(AB(VAS Detailed) CPT:43898 Reason for Study: SEE CLINICAL HISTORY Clinical History: FLORENCE's/Segs Indications: Other: BLE edema, r/o PVD for compression tx. Report Status: Verified Date Reported: JAN 29, 2025 Date Verified: JAN 29, 2025 Senior Maintenance Machinist E-Sig: Report: LE segmental pressures TECHNIQUE: Continuous wave Doppler waveforms are obtained from pedal vessels, segmental pressures are measured at rest. Photoplethysmographic waveforms are obtained of the digits with pressure measurement. COMPARISON: No prior FINDINGS: Right: Right brachial arterial pressure is 134 mmHg. Multiphasic waveforms are noted in the right posterior tibial and right dorsalis pedis arteries. ABIs demonstrate calcification with right INDUSTRIAL SOCIOLOGIST 1.44, left DPA 1.28. Right toe pressure is 115 mmHg. Left: Left brachial arterial pressure is 134 mmHg. Multiphasic waveforms are noted in the left posterior tibial and left dorsalis pedis arteries. ABIs demonstrate calcification with right INDUSTRIAL SOCIOLOGIST 1.44, left DPA 1.21. Left toe pressure [...] Staff: NICOLASA FLORES, ATTENDING PHYSICIAN Verified by environmental field professional for NICOLASA FLORES,NICOLASA D [facility] Dec 30, 2024 01:13 AM [id number] RADIOLOGY EX AM PERF/INTER BY OTHER FACILITY: ROBBIE HUANG [id number] -1940 M Exm Date: DEC 30, 2024@01:13 Req Phys: DALIA COBB Pat Loc: VETO X-RAY/ROUTINE/CDD/NC (Req' Img Loc: OUTSIDE2 LD RAD Service: Unknown (Case [id number] COMPLETE) [id number] RADIOLOGY EXAM PERF/INTER B(RAD Detailed) CPT:00497 Reason for Study: Exam imported from outside Clinical History: Original Data for Imported Study Patient Name: ROBBIE HUANG Date: 1940 Sex: M Study Date: 12/30/24 Study Time: 01:13:02 Study Description: XR CHEST PORTABLE Referring Physician: RICHARD CHAVES Series 1: 1 CR file Acquisition site: [facility] Report Status: Electronically Filed Date Reported: JAN 23, 2025 Report: Electronically generated report for outside study. Impression: Electronically generated report for outside study. Primary Diagnostic Code: VERIFIED BY: / *ELECTRONICALLY FILED* [facility] Encounter Notes: All associated encounter notes This section contains the clinical notes associated to the Encounter. Date/Time Encounter Note(s) Provider Source Jan 21, 2025 02:50 PM CARE COORDINATION HOME TELEHEALTH FOLLOW-UP NOTE: LOCAL TITLE: HT INTERVENTION NOTE STANDARD TITLE: CARE COORDINATION HOME TELEHEALTH FOLLOW-UP NOTE DATE OF NOTE: JAN 21, 2025@14:50 ENTRY DATE: JAN 21, 2025@14:50:50 AUTHOR: GARCIA BRUNNER COSIGNER: URGENCY: STATUS: COMPLETED HT Admission Date: 04/10/2024 HT Diagnosis: HTN Provider-ordered vital sign goals: SBP<140 DBP <90 HT electronic capture of the blood pressure? Yes HT Emergency classification: L HT Category of Care: LOBO Last completion date: 10/15/24 [place] 3-month average response rate percentage: 97% HT [...] signs and symptoms of hypo-and hypertension; 3. [place] will stay on a low-salt diet over the next 6 months. 4. [place] will continue to stay active and exercise as able. 5. HT RN to encourage daily use of HT equipment. 6. HT RN to encourage the to call Home Telehealth for assistance if/when needed to coordinate care. 7. HT RN to submit semiannual/on-request summary reports to the primary care provider. [place] is actively enrolled in the Home Telehealth program. Review of data shows the following out of range responses: Patient Name: ROBBIE HUANG Disease(s): CHF, Hypertension Date Range: 01/07/2025 - 01/21/2025 [facility] Vitals Report Reading Date Sys/[facility] BP-HR Weight 01/20/25 128/64 (08:31) 61 (08:31) 01/19/25 144/73 (21:02) 53 (21:02) 179.0 (13:29) 01/19/25 151/75 (21:00) 54 (21:00) 01/19/25 127/76 (13:28) 55 (13:28) 01/18/25 137/68 (21:05) 50 (21:05) 177.6 (10:58) 01/18/25 137/74 (10:57) 55 (10:57) 01/17/25 138/73 (20:47) 54 (20:47) 178.0 (10:32) 01/17/25 120/71 (10:31) 56 (10:31) 01/15/25 141/63 (08:11) 55 (08:11) 179.4 (08:13) [...] 177.8 (08:53) 01/08/25 131/69 (08:52) 57 (08:52) 01/07/25 122/63 (21:17) 62 (21:17) 01/07/25 137/71 (12:19) 64 (12:19) [facility] Average Report Sys/[facility] BP-HR Weight Average 132/69 59 176.7 High 151/95 67 181.0 Low 119/61 50 154.6 Assessment/Intervention( s)/Plan: Called and spoke with regarding weight trend over the weekend and then no readings today. He stated that he just made it back from [place]. He stated that his weight has not gone up any more. He denies any s/s or concerns at this time. He appreciated call to check in. He will call with any new issues. Data update above [place] asymptomatic - denies concerns RN to continue to monitor /es/ GARCIA BRUNNER, MSN, RN-BC SHIPFITTER Signed: 01/21/2025 14:[address] [facility]
--- OUTSIDE RECORDS SUMMARY | 2025-01-23 09:30 | XMS_ITS | Encounter Summary ---
Author Name [facility] [place] [facility] [facility] [place] Address [address] [place] [address] Care Team Providers Care Soaking Room Operator Name Role Phone JORDYN DALIA Primary [...] AUTOM OTIVE - RETI Jul 25, 2018 [id number] TI KAMARA SPOUSE MEDICARE (WNR) MEDICARE (M) PART B Jan 22, 2007 PART B [id number] MALUJUSTYNA TINAJERO RGE PATIENT MEDICARE (WNR) MEDICARE (M) PART A Sep 22, 2005 PART A [id number] [id number] MALUJUSTYNA TINAJERO PATIENT FOR LIFE TRICA RE FOR LIFE Jul 25, 2017 FOR LIFE [id number] ROBBIE HUANG JR PATIENT Selected Encounter This section includes the information on record at [place] for the Encounter. Date/Time Encounter Type Encounter Description Reason Provider Source Jan 23, 2025 01:30 PM MTMS BY MARANDA ALLEN 15 MIN TELEPHONE/ANCILLAR Y ICD-10-CM I50.22 Chronic systolic (congestive) heart failure KAMI MCGINNIS IHKal Encounter Template Text not used by [place] Assessments - Encounter Diagnoses This section includes the primary and secondary diagnoses documented for the Encounter. Date/Time Primary/Secondary Diagnosis Diagnosis Name Provider Source Jan 23, 2025 01:30 PM PRIMARY Chronic systolic (congestive) [facility] Treatment: Future Appointments (+ 6 months) and Future Tests (+/- 45 days) The Plan of Treatment section includes future care activities for the patient from all [place] treatmentfacilities. This section includes future appointments and future orders which are active, pending or scheduled. Future Appointments This section includes appointments that were scheduled to occur 6 months from the date of the Encounter, up to a maximum of 20 appointments. The data comes from all [place] treatment facilities. Appointment Date/Time Appointment Type Appointme nt Facility Name Jan 28, 2025 01:30 PM AMBULATORY - SURGERY [facility] Jan 31, 2025 03:00 PM AMBULATORY - MEDICINE [facility] Feb 05, 2025 01:00 PM AMBULATORY - MEDICINE [facility] Feb 05, 2025 02:00 PM AMBULATORY - MEDICINE [facility] Feb 07, 2025 01:15 PM AMBULATORY - MEDICINE [facility] Feb 08, 2025 01:30 PM AM[facility]ULATORY - NONE [facility] Mar 04, 2025 01:30 PM AM[facility]UL[facility]ORY - NONE [facility] Mar 18, 2025 01:30 PM [facility]ORY - NONE [facility] Mar 19, 2025 01:00 PM AMBULATORY - MEDICINE [facility] Apr 11, 2025 02:00 PM AMBULATORY - MEDICINE [facility] Active, Pending, and Scheduled Orders This section includes a listing of several types of active, pending, and scheduled orders, including clinic medications orders, diagnostic test orders, procedure orders and consult orders; where the start date of the order is 45 days before the date of the Encounter or 45 days after the date of theEncounter. The data comes from all [place] treatment facilities. Test Date/Time Test Type Test Details Facility Name Feb 05, 2025 02:21 PM Procedure Order CP PULMONA RY FUNCTION TEST CP PULMONARY FUNCTION TEST Proc Prop [facility] Lab Results: +/- 30 days of the encounter This section includes the Chemistry and Hematology Lab Results on record with [place] for the patient. Radiology Reports and Pathology Reports are provided separately, in subsequent sections. Lab Results This section contains the Chemistry/Hematology Results that were resulted 30 days before or 30 daysafter the date of the Encounter. Date/Time Source Result Type Result - Unit Interpretation Reference Range Specimen Type Comment Jan 28, 2025 02:32 PM [facility] WN CREATININE URINE Specimen Type: URINE No comment entered. Ordering Provider: APARNA KING Report Released Date/Time: Oct 02, 2024 03:22 PM Reporting Lab: [address] [phone] Performing Lab: [address] [address] CREATININE 92.7 mg/dL Jan 28, 2025 02:32 PM [facility] TOTAL PROTEIN URINE Specimen Type: URINE No comment entered. Ordering Provider: APARNA KING Report Released Date/Time: Oct 02, 2024 03:22 PM Reporting Lab: [address] [address] Performing Lab: [address] [address] TOTAL PROTEIN 15 mg/dL H 0-14 Jan 28, 2025 02:32 PM [facility] URINALYSIS URINE Specimen Type: URINE Comment: Microscopic not indicated Ordering Provider: APARNA KING Report Released Date/Time: Oct 02, 2024 03:22 PM Reporting Lab: [address] [address] Performing Lab: [address] [address] URINE COLOR Light Yellow Colorless-Yello w APPEARANCE Clear Clear UROBILINOGEN Normal mg/dL Normal URINE BLOOD Negative Negative URINE BILIRUBIN Negative Negative URINE KETONES Negative mg/dL Negative URINE PROTEIN Negative mg/dL Negative-Tr rachell URINE PH 5.5 4.5-8.0 URINE NITRITE Negative Negative URINE LEUKOCYTE EST Negative Negative SPECIFIC GRAVITY 1.019 1.005-1.030 URINE GLUCOSE >1000 mg/dL H Negative Jan 28, 2025 02:21 PM [facility] 25-OH VITAMIN D SERUM Specime n [...] Oct 02, 2024 03:22 PM Reporting Lab: [address] [address] Performing Lab: [address] [address] 25-OH VITAMIN D 40.7 ng/mL 20.0-50.0 Jan 28, 2025 02:21 PM [facility] PTH INTACT (MCCALL) PLASMA Spe cimen [...] Oct 02, 2024 03:22 PM Reporting Lab: [address] [address] Performing Lab: [address] [address] PTH INTACT (M[place]ALL) 130.0 pg/mL H 8.7-77.1 Jan 28, 2025 02:21 PM [facility] Specimen Type: BLOOD No comment entered. Ordering Provider: APARNA KING Report Released Date/Time: Oct 02, 2024 03:22 PM Reporting Lab: [facility] [address] [place] [address] Performing Lab: [address] [address] WBC 6.5 10*3/uL 5.0-10.0 RBC 4.18 10*6/uL L 4.6-6.2 HGB 12.4 g/dL L 14.0-18.0 HCT 39.2 L 42.0-52.0 MCV 93.8 fL 80.0-94.0 MCH 29.7 pg 27.0-31.0 MCHC 31.6 g/dL L 32.0-36.0 PLT 212 10*3/uL 150-450 MPV 10.7 fL 9.0-13.1 RDW 13.9 11.0-16.0 NRBC 0.0 0.0-0.0 Jan 28, 2025 02:20 PM [facility] PHOSPHORUS PLASMA Specimen Type: PLASM A Comment: [...] Jan 17, 2025 09:57 AM Reporting Lab: [address] [address] Performing Lab: [address] [address] PHOSPHORUS 3.5 mg/dL 2.3-4.7 Jan 28, 2025 02:20 PM [facility] ALBUMIN PLASMA Specimen Type: PLASM A Comment: [...] Jan 17, 2025 09:57 AM Reporting Lab: [address] [address] Performing Lab: [address] [address] ALBUMIN 4.1 g/dL 3.5-5.2 Jan 28, 2025 02:20 PM [facility] PLASMA Specimen Type: PLASM A [...] Jan 17, 2025 09:57 AM Reporting Lab: [address] [address] Performing Lab: [address] [address] CREATININE 2.55 mg/dL H 0.72-1.25 UREA NITROGEN 38 mg/dL H 9-25 GLUCOSE 91 mg/dL 74-100 SODIUM 142 mmol/L 136-145 POTASSIUM 4.5 mmol/L 3.5-5.1 CHLORIDE 109 mmol/L H 98-107 CO2 25 mmol/L 22-29 CALCIUM 8.8 mg/dL 8.4-10.2 ANION GAP 8 meq/L 3-19 eGFR (CKD-EPI) Jan 11, 2025 09:53 AM [facility] PANEL 1 PLASMA Specimen Type: PLASM A [...] Jan 08, 2025 02:55 PM Reporting Lab: [address] [address] Performing Lab: [address] [address] CREATININE 2.62 mg/dL H 0.72-1.25 UREA NITROGEN 46 mg/dL H 9-25 GLUCOSE 105 mg/dL H 74-100 SODIUM 143 mmol/L 136-145 POTASSIUM 4.7 mmol/L 3.5-5.1 CHLORIDE 107 mmol/L 98-107 CO2 25 mmol/L 22-29 CALCIUM 9.3 mg/dL 8.4-10.2 ANION GAP 11 meq/L 3-19 eGFR (CKD-EPI) Dec 31, 2024 12:02 PM [facility] GLUCOSE-HAND MONITOR CAPILLARY Specime n Type: CAPILLARY Comment: Test performed by: [id number] Meter #: [id number] Ordering Provider: CHLOE SEVERINO Report Released Date/Time: Dec 31, 2024 12:58 PM Reporting Lab: [facility] [address] [facility] [address] Performing Lab: [facility] [address] [facility] [address] GLUCOSE-HAND MONITOR 129 mg/dL H 71-99 Dec 31, 2024 07:50 AM [facility] PANEL 1 PLASMA Specimen Type: PLASM A [...] Dec 30, 2024 08:23 AM Reporting Lab: [address] [address] Performing Lab: [place] [phone] CREATININE 2.04 mg/dL H 0.72-1.25 UREA NITROGEN 31 mg/dL H 9-25 GLUCOSE 94 mg/dL 74-100 SODIUM 138 mmol/L 136-145 POTASSIUM 4.4 mmol/L 3.5-5.1 CHLORIDE 105 mmol/L 98-107 CO2 25 mmol/L 22-29 CALCIUM 8.9 mg/dL 8.4-10.2 ANION GAP 8 meq/L 3-19 eGFR (CKD-EPI) 32 Dec 31, 2024 07:50 AM [facility] CBC/PLT BLOOD Specimen Type : BLOOD No comment entered. Ordering Provider: CHLOE SEVERINO Report Released Date/Time: Dec 30, 2024 08:23 AM Reporting Lab: [place] [phone] Performing Lab: [place] [phone] WBC 8.2 10*3/uL 5.0-10.0 RBC 4.03 10*6/uL L 4.6-6.2 HGB 12.0 g/dL L 14.0-18.0 HCT 37.2 L 42.0-52.0 MCV 92.3 fL 80.0-94.0 MCH 29.8 pg 27.0-31.0 MCHC 32.3 g/dL 32.0-36.0 PLT 191 10*3/uL 150-450 MPV 10.5 fL 9.0-13.1 RDW 13.8 11.0-16.0 NRBC 0.0 0.0-0.0 Dec 31, 2024 06:38 AM [facility] GLUCOSE-HAND MONITOR CAPILLARY Specime n Type: CAPILLARY Comment: Test performed by: [id number] Meter #: [id number] Ordering Provider: CHLOE SEVERINO Report Released Date/Time: Dec 31, 2024 07:17 AM Reporting Lab: [address] [address] Performing Lab: [address] [address] GLUCOSE-HAND MONITOR 99 mg/dL 71-99 Dec 30, 2024 08:10 PM [facility] GLUCOSE-HAND MONITOR CAPILLARY Specime n Type: CAPILLARY Comment: Test performed by: [id number] Meter #: [id number] Ordering Provider: CHLOE SEVERINO Report Released Date/Time: Dec 30, 2024 09:15 PM Reporting Lab: [address] [address] Performing Lab: [address] [address] GLUCOSE-HAND MONITOR 124 mg/dL H 71-99 Dec 30, 2024 04:21 PM [facility] GLUCOSE-HAND MONITOR CAPILLARY Specime n Type: CAPILLARY Comment: Test performed by: [id number] Meter #: [id number] Ordering Provider: CHLOE SEVERINO Report Released Date/Time: Dec 30, 2024 04:39 PM Reporting Lab: [address] [address] Performing Lab: [address] [address] GLUCOSE-HAND MONITOR 92 mg/dL 71-99 Dec 30, 2024 11:54 AM [facility] MRSA SURVL NARES DNA NARES Specime n [...] Dec 30, 2024 10:43 AM Reporting Lab: [address] [address] Performing Lab: [address] [address] MRSA SURVL NARES DNA Negative Negative Dec 30, 2024 11:39 AM [facility] GLUCOSE-HAND MONITOR CAPILLARY Specime n Type: CAPILLARY Comment: Test performed by: [id number] Meter #: [id number] Ordering Provider: CHLOE SEVERINO Report Released Date/Time: Dec 30, 2024 11:56 AM Reporting Lab: [address] [address] Performing Lab: [address] [address] GLUCOSE-HAND MONITOR 115 mg/dL H 71-99 Dec 30, 2024 07:46 AM [facility] [employer] VENOUS BLOOD GAS VENOUS BLOOD Specimen Type: VENOUS BLOOD Comment: Collection Time: 12-30-2024 @ 07:46 Ordering Provider: KEYANNA EDMONDSON Report Released Date/Time: Dec 30, 2024 07:54 AM Reporting Lab: [address] [address] Performing Lab: [address] [address] .VpCO2 46 mm[Hg] 41-51 .VpH 7.34 7.33-7.43 Dec 30, 2024 07:46 AM [facility] [employer] BLUE TOP PLASMA Specimen Type: PLASMA No comment entered. Ordering Provider: KEYANNA EDMONDSON Report Released Date/Time: Dec 30, 2024 07:53 AM Reporting Lab: [address] [address] Performing Lab: [address] [address] PT PATIENT 15.1 s H 11.7-14.4 INTERNATIONAL NORMALIZED RATIO 1.21 H 0 .87-1.14 PTT PATIENT 32.2 s 24.0-33.2 Dec 30, 2024 07:46 AM [facility] [employer] GREEN TOP PLASMA Specimen Type: ALFREDITO SMA [...] Dec 30, 2024 07:53 AM Reporting Lab: [address] [address] Performing Lab: [address] [address] IONIZED CALCIUM 1.13 mmol/L L 1.15-1.29 CREATININE [...] 6 4-35 Dec 30, 2024 07:46 AM [facility] [employer] [facility] [employer] BACH TOP PLASMA Specimen Type: PLASMA No comment entered. Ordering Provider: KEYANNA EDMONDSON Report Released Date/Time: Dec 30, 2024 07:53 AM Reporting Lab: [address] [address] Performing Lab: [address] [address] LACTIC ACID 0.9 mmol/L 0.5-2.2 Dec 30, 2024 07:46 AM [facility] [employer] [facility] [employer] LAVENDER TOP BLOOD Spec imen Type: BLOOD No comment entered. Ordering Provider: KEYANNA EDMONDSON Report Released Date/Time: Dec 30, 2024 07:53 AM Reporting Lab: [address] [address] Performing Lab: [address] [address] WBC 10.2 10*3/uL H 5.0-10.0 RBC 4.04 [...] and tobacco- related health factors from the [place] facility where the Encounter took place. Current Smoking Status This section includes the most current smoking, or tobacco-related health factor, from the [place] facility where the Encounter took place. Date/Time Current Smoking Status Comment Kelechi dial May 10, 2024 02:00 PM VA-TOBACCO NEVER USED [facility] Tobacco Use History This section includes a history of the smoking, or tobacco-related health factors, that were collected on or before the date of the Encounter. The data comes from the [place] facility where the Encounter took place. Date/Time Smoking Status/Tobacco Use Comment Ricardo dudley May 19, 2017 03:22 AM NON-TOBACCO USE INPATIENT [facility] Sep 07, 2016 02:41 AM NON-TOBACCO USE INPATIENT [facility] Apr 21, 2004 08:29 AM HF V9 CURRENT NON-SMOKER quit smoking about 30 yrs ago [facility] Sep 06, 2002 02:26 PM HF V9 CURRENT NON-SMOKER QUIT SMOKING ABOUT 31 YRS AGO [facility] Radiology Reports: +/- 30 [...] the Encounter. The data comes from all [place] treatment facilities. Date/Time Radiology Report Provider Source Jan 28, 2025 01:17 PM VENOUS DUPLEX LOWE R EXT BILAT: ROBBIE HUANGAlex [id number] -1940 M Exm Date: JAN 28, 2025@13:17 Req Phys: DALIA COBB Loc: [facility] PACT [place] 16-1 (Req'g Loc) Img Loc: VETO VAS LAB [facility] Service: Unknown (Case [id number] COMPLETE) VENOUS DUPLEX LOWER EXT BILAT (VAS Detailed) CPT:45757 Reason for Study: SEE CLINICAL HISTORY Clinical History: Venous Duplex for Valvular Competence/Venous Insufficiency: Chronic venous insufficiency Report Status: Verified Date Reported: JAN 29, 2025 Date Verified: JAN 29, 2025 Business Development E-Sig: Report: EXAM: VENOUS DUPLEX EXAM OF [...] Staff: NICOLASA FLORES, ATTENDING PHYSICIAN Verified by machine overhauler for NICOLASA FLORES /NICOLASA SOMMER [facility] Jan 28, 2025 01:17 PM SEGMENTAL PRESSURE S, LOWER EXT(FLORENCE) UNILAT: ROBBIE HUANG MICA [id number] -1940 M Exm Date: JAN 28, 2025@13:17 Req Phys: DALIA COBB Pat Loc: [facility] PACT [facility] 16-1 (Req'g Loc) Img Loc: [facility]O [facility]AS [facility] Service: Unknown (Case [id number] COMPLETE) SEGMENTAL PRESSURES, LOWER EXT(AB(VAS Detailed) CPT:09075 Reason for Study: SEE CLINICAL HISTORY Clinical History: FLORENCE's/Segs Indications: Other: BLE edema, r/o PVD for compression tx. Report Status: Verified Date Reported: JAN 29, 2025 Date Verified: JAN 29, 2025 Business Development E-Sig: Report: LE segmental pressures TECHNIQUE: Continuous wave Doppler waveforms are obtained from pedal vessels, segmental pressures are measured at rest. Photoplethysmographic waveforms are obtained of the digits with pressure measurement. COMPARISON: No prior FINDINGS: Right: Right brachial arterial pressure is 134 mmHg. Multiphasic waveforms are noted in the right posterior tibial and right dorsalis pedis arteries. ABIs demonstrate calcification with right PALM AND BACK FORGER 1.44, left DPA 1.28. Right toe pressure is 115 mmHg. Left: Left brachial arterial pressure is 134 mmHg. Multiphasic waveforms are noted in the left posterior tibial and left dorsalis pedis arteries. ABIs demonstrate calcification with right PALM AND BACK FORGER 1.44, left DPA 1.21. Left toe pressure [...] Staff: NICOLASA FLORES, ATTENDING PHYSICIAN Verified by machine overhauler for NICOLASA FLORES /NICOLASA SOMMER [facility] Dec 30, 2024 01:13 AM [id number] RADIOLOGY EX AM PERF/INTER BY OTHER FACILITY: ROBBIE HUANG [id number] -1940 M Exm Date: DEC 30, 2024@01:13 Req Phys: DALIA COBB Loc: VETO X-RAY/ROUTINE/CDD/NC (Req' Img Loc: OUTSIDE2 LD RAD Service: Unknown (Case [id number] COMPLETE) [id number] RADIOLOGY EXAM PERF/INTER B(RAD Detailed) CPT:88973 Reason for Study: Exam imported from outside Clinical History: Original Data for Imported Study Patient Name: ROBBIE HUANG Date: 1940 Sex: M Study Date: 12/30/24 Study Time: 01:13:02 Study Description: XR CHEST PORTABLE Referring Physician: RICHARD CHAVES Series 1: 1 CR file Acquisition site: [facility] Report Status: Electronically Filed Date Reported: JAN 23, 2025 Report: Electronically generated report for outside study. Impression: Electronically generated report for outside study. Primary Diagnostic Code: VERIFIED BY: / *ELECTRONICALLY FILED* [facility] Encounter Notes: All associated encounter notes This section contains the clinical notes associated to the Encounter. Date/Time Encounter Note(s) Provider Source Jan 24, 2025 03:25 PM ADDENDUM: LOCAL TITLE: Addendum STANDARD TITLE: ADDENDUM DATE OF NOTE: JAN 24, 2025@15:25:47 ENTRY DATE: JAN 24, 2025@15:25:49 AUTHOR: KAMI MCGINNIS EXP COSIGNER: URGENCY: STATUS: COMPLETED Alert to MSA: Please schedule [facility]O CARDIO PHARMD PHONE visit for 02/08/25 @ 1330. Thank you /jack/ Kami Mcginnis PharmD, [facility] Clinical Knotting Machine Operator Portable - Cardiology Signed: 01/24/2025 15:28 Receipt Acknowledged By: 01/29/2025 08:49 /jack/ Obinna Savage AMSA --- Original Document --- 01/23/25 CARDIOLOGY PHARMACOTHERAPY TELEPHONE NOTE: ROBBIE HUANG JR is an 84 year old WHITE MALE who was contacted via telephone in regards to recent hospitalization with heart failure exacerbation (dc'd 12/31/24). [place] says he had some swelling in his ankles this morning so he took 1/2 tablet of furosemide. This is the first time he has had to take it for a while now. Current Cardiac Regimen: 1. amlodipine 10 mg daily 2. clopidogrel 75 mg daily 3. empagliflozin 10 mg every morning 4. furosemide 40 mg daily PRN weight gain/fluid 5. metoprolol succinate 25 mg daily 6. rosuvastatin 10 mg daily Medication adherence: organizes his own medications, uses weekly associate media planner [place] taken extra doses or missed doses of medication? ( ) Yes (x) No Previous cardiac medications: carvedilol dc'd 2021, metoprolol tartrate dc'd 2018, ramipril dc'd 2018, simvastatin dc'd 2016, atorvastatin dc'd 2008 Foreseeable Barriers to adherence: [place] enrolled in [facility] (x) Yes ( ) No Does patient have weight scale? (x) Yes ( ) No Does patient have BP cuff? 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 on 12/30 for chest pain. 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[email or web address]), has not started back walking yet Diet: Breakfast: orange, pear or other fruit, fried egg, sausage or helms Lunch: skips if he eats a late [...] ROBBIE HUANG Disease(s): CHF, Hypertension Date Range: 01/18/2025 - 01/23/2025 [facility] Vitals Report Reading Date Sys/[place] BP-HR Weight 01/23/25 127/66 (09:52) 55 (09:52) 178.8 (09:53) 01/22/25 133/66 (21:03) 59 (21:03) 177.8 (09:37) 01/22/25 129/66 (09:36) 54 (09:36) 01/21/25 130/66 (21:25) 58 (21:25) 01/20/25 128/64 (08:31) 61 (08:31) 01/19/25 144/73 (21:02) 53 (21:02) 179.0 (13:29) 01/19/25 151/75 (21:00) 54 (21:00) 01/19/25 127/76 (13:28) 55 (13:28) 01/18/25 137/68 (21:05) 50 (21:05) 177.6 (10:58) 01/18/25 137/74 (10:57) 55 (10:57) [facility] Average Report Sys/[place] BP-HR Weight Average 134/69 55 178.3 High 151/76 61 179.0 Low 127/64 50 177.6 PREVIOUS ENCOUNTERS Date Range: 01/08/2025 - 01/17/2025 took PRN [...] 144/95 67 181.0 Low 119/61 54 154.6 Disease(s): CHF, Hypertension Date Range: 12/25/2024 - [...] weights daily upon wakening and after voiding. verbalized understanding and agreed with plan above. Advised to call if questions or concerns prior to next follow up. Time spent on phone with : 8 minutes Follow-up: via telephone ~ 2 weeks after upcoming cardiology visit PBJuan Main Pharmacotherapy Rem V12: PHARMACIST INTERVENTIONS: HEART FAILURE Medication monitoring, no dosage change required, continue to monitor and assess /es/ Kami Mcginnis PharmD, [facility] Clinical Knotting Machine Operator Portable - Cardiology Signed: 01/23/2025 16:13 KAMI MCGINNIS-ISMAEL [facility] Jan 23, 2025 01:27 PM PHARMACY TELEPHONE ENCOUNTER NOTE: LOCAL TITLE: CARDIOLOGY PHARMACOTHERAPY TELEPHONE NOTE STANDARD TITLE: PHARMACY TELEPHONE ENCOUNTER NOTE DATE OF NOTE: JAN 23, 2025@13:27 ENTRY DATE: JAN 23, 2025@13:27:40 AUTHOR: KAMI MCGINNIS EXP COSIGNER: URGENCY: STATUS: COMPLETED CARDIOLOGY PHARMACOTHERAPY TELEPHONE NOTE Has ADDENDA REINAROBBIE is an 84 year old WHITE MALE who was contacted via telephone in regards to recent hospitalization with heart failure exacerbation (dc'd 12/31/24). [place] says he had some swelling in his ankles this morning so he took 1/2 tablet of furosemide. This is the first time he has had to take it for a while now. Current Cardiac Regimen: 1. amlodipine 10 mg daily 2. clopidogrel 75 mg daily 3. empagliflozin 10 mg every morning 4. furosemide 40 mg daily PRN weight gain/fluid 5. metoprolol succinate 25 mg daily 6. rosuvastatin 10 mg daily Medication adherence: organizes his own medications, uses weekly associate media planner taken extra doses or missed doses of medication? ( ) Yes (x) No Previous cardiac medications: carvedilol dc'd 2021, metoprolol tartrate dc'd 2018, ramipril dc'd 2018, simvastatin dc'd 2016, atorvastatin dc'd 2008 Foreseeable Barriers to adherence: enrolled in [facility] (x) Yes ( ) No Does patient have weight scale? (x) Yes ( ) No Does patient have BP cuff? 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 on 12/30 for chest pain. 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[email or web address]), has not started back walking yet Diet: Breakfast: orange, pear or other fruit, fried egg, sausage or helms Lunch: skips if he eats a late [...] ROBBIE HUANG Disease(s): CHF, Hypertension Date Range: 01/18/2025 - 01/23/2025 [facility] Vitals Report Reading Date Sys/[place] BP-HR Weight 01/23/25 127/66 (09:52) 55 (09:52) 178.8 (09:53) 01/22/25 133/66 (21:03) 59 (21:03) 177.8 (09:37) 01/22/25 129/66 (09:36) 54 (09:36) 01/21/25 130/66 (21:25) 58 (21:25) 01/20/25 128/64 (08:31) 61 (08:31) 01/19/25 144/73 (21:02) 53 (21:02) 179.0 (13:29) 01/19/25 151/75 (21:00) 54 (21:00) 01/19/25 127/76 (13:28) 55 (13:28) 01/18/25 137/68 (21:05) 50 (21:05) 177.6 (10:58) 01/18/25 137/74 (10:57) 55 (10:57) [facility] Average Report Sys/[facility] BP-HR Weight Average 134/69 55 178.3 High 151/76 61 179.0 Low 127/64 50 177.6 PREVIOUS ENCOUNTERS Date Range: 01/08/2025 - 01/17/2025 took PRN [...] 144/95 67 181.0 Low 119/61 54 154.6 Disease(s): CHF, Hypertension Date Range: 12/25/2024 - [...] 31 H 2.04 H 138 4.4 105 12/30/24 07:46 115 H 31 H 1.97 [...] weights daily upon wakening and after voiding. [place] verbalized understanding and agreed with plan above. Advised to call if questions or concerns prior to next follow up. Time spent on phone with : 8 minutes Follow-up: via telephone ~ 2 weeks after upcoming cardiology visit [facility] Pharmacotherapy Rem V12: PHARMACIST INTERVENTIONS: HEART FAILURE Medication monitoring, no dosage change required, continue to monitor and assess /jack/ Kami Mcginnis PharmD, [facility] Clinical Knotting Machine Operator Portable - Cardiology Signed: 01/23/2025 16:13 01/24/2025 ADDENDUM STATUS: COMPLETED Alert to [facility]: Please schedule VETO JEFFERSON PHARMD PHONE visit for 02/08/25 @ [id number]. Thank you /earline Mcginnis PharmD, [facility] Clinical Knotting Machine Operator Portable - Cardiology Signed: 01/24/2025 15:28 Receipt Acknowledged By: * AWAITING SIGNATURE * OBINNA SAVAGE LAUREN N [place]-CDD [facility]
--- OUTSIDE RECORDS SUMMARY | 2025-01-24 09:58 | XMS_ITS | Encounter Summary ---
Author Name [facility] [facility] [place] Address [address] [place] [address] Care Team Providers Care Safety Investigator Name Role Phone DALIA COBB Primary Care [...] AUTOM OTIVE - RETI Jul 25, 2018 [id number] IT KAMARA SPOUSE MEDICARE (WNR) MEDICARE (M) PART B Jan 22, 2007 PART B [id number] JUSTYNA HUANG RGE PATIENT MEDICARE (WNR) MEDICARE (M) PART A Sep 22, 2005 PART A [id number] MALUAT,JUSTYNA RGE PATIENT FOR LIFE TRICA RE FOR LIFE Jul 25, 2017 FOR LIFE [id number] ROBBIE HUANG JR PATIENT Selected Encounter This section includes the [place] at [place] for the Encounter. Date/Time Encounter Type Encounter Description Reason Provider Source Jan 24, 2025 01:58 PM PH1 ASSMT&MGMT NQHP 11-20 TELEPHONE BY STAFF ICD-10-CM I10 Essential (primary) hypertension KEEGAN BRUNNER [place] Encounter Template Text not used by [place] Assessments - Encounter Diagnoses This section includes the primary and secondary diagnoses documented for the Encounter. Date/Time Primary/Secondary Diagnosis Diagnosis Name Provider Source Jan 24, 2025 01:58 PM PRIMARY Essential (primary) hypertension SRINIVASAN BRUNNER [facility] Plan of Treatment: Future Appointments [...] 01:30 PM AMBULATORY - SURGERY [place] G[place] [facility] Jan 31, 2025 03:00 PM AMBULATORY - MEDICINE SHAMIR NGTON-CDD [facility] Feb 05, 2025 01:00 PM AMBULATORY - MEDICINE SHAMIR NGTON-D [facility] Feb 05, 2025 02:00 PM AMBULATORY - MEDICINE SHAMIR NGTON-CDD [facility] Feb 07, 2025 01:15 PM AMBULATORY - MEDICINE SHAMIR NGTON [facility] Feb 08, 2025 01:30 PM AMBULATORY - NONE [place] [facility] Mar 04, 2025 01:30 PM AMBULATORY - NONE [place] [facility] Mar 18, 2025 01:30 PM AMBULATORY - NONE [place] [facility] Mar 19, 2025 01:00 PM AMBULATORY - MEDICINE SHAMIR NGTON [facility] Apr 11, 2025 02:00 PM AMBULATORY - MEDICINE SHAMIR NGTON-CDD [facility] Active, Pending, and Scheduled Orders [...] FUNCTION TEST CP PULMONARY FUNCTION TEST Proc Housing Inspectors's Choice [facility] Lab Results: +/- 30 days [...] Type Comment Jan 28, 2025 02:32 PM [facility] WN CREATININE URINE Specimen Type: URINE No comment entered. Ordering Provider: APARNA KING Report Released Date/Time: Oct 02, 2024 03:22 PM Reporting Lab: [address] [address] Performing Lab: [address] [address] CREATININE 92.7 mg/dL Jan 28, 2025 02:32 PM [facility] TOTAL PROTEIN URINE Specimen Type: URINE No comment entered. Ordering Provider: APARNA KING Report Released Date/Time: Oct 02, 2024 03:22 PM Reporting Lab: [address] [address] Performing Lab: [address] [address] TOTAL PROTEIN 15 mg/dL H 0-14 Jan 28, 2025 02:32 PM [facility] URINALYSIS URINE Specimen Type: URINE Comment: Microscopic not indicated Ordering Provider: APARNA KING Report Released Date/Time: Oct 02, 2024 03:22 PM Reporting Lab: [address] [address] Performing Lab: [address] [address] URINE COLOR Light Yellow Colorless-Yello w APPEARANCE Clear Clear UROBILINOGEN Normal mg/dL Normal URINE BLOOD Negative Negative URINE BILIRUBIN Negative Negative URINE KETONES Negative mg/dL Negative URINE PROTEIN Negative mg/dL Negative-Tr rachell URINE PH 5.5 4.5-8.0 URINE NITRITE Negative Negative URINE LEUKOCYTE EST Negative Negative SPECIFIC GRAVITY 1.019 1.005-1.030 URINE GLUCOSE >1000 mg/dL H Negative Jan 28, 2025 02:21 PM [facility] 25-OH VITAMIN D SERUM Specime n [...] Oct 02, 2024 03:22 PM Reporting Lab: [place] [phone] Performing Lab: [place] [phone] 25-OH VITAMIN D 40.7 ng/mL 20.0-50.0 Jan 28, 2025 02:21 PM [facility] PTH INTACT (MCCALL) PLASMA Spe cimen [...] Oct 02, 2024 03:22 PM Reporting Lab: [place] [phone] Performing Lab: [place] [phone] PTH INTACT (MCCALL) 130.0 pg/mL H 8.7-77.1 Jan 28, 2025 02:21 PM [facility] CBC/PLT BLOOD Specimen Type: BLOOD No comment entered. Ordering Provider: APARNA KING Report Released Date/Time: Oct 02, 2024 03:22 PM Reporting Lab: [facility] [address] [address] Performing Lab: [address] [address] WBC 6.5 10*3/uL 5.0-10.0 RBC 4.18 10*6/uL L 4.6-6.2 HGB 12.4 g/dL L 14.0-18.0 HCT 39.2 L 42.0-52.0 MCV 93.8 fL 80.0-94.0 MCH 29.7 pg 27.0-31.0 MCHC 31.6 g/dL L 32.0-36.0 PLT 212 10*3/uL 150-450 MPV 10.7 fL 9.0-13.1 RDW 13.9 11.0-16.0 NRBC 0.0 0.0-0.0 Jan 28, 2025 02:20 PM [facility] PHOSPHORUS PLASMA Specimen Type: PLASM A [...] Jan 17, 2025 09:57 AM Reporting Lab: [address] [address] Performing Lab: [address] [address] PHOSPHORUS 3.5 mg/dL 2.3-4.7 Jan 28, 2025 02:20 PM [facility] ALBUMIN PLASMA Specimen Type: PLASM A [...] Jan 17, 2025 09:57 AM Reporting Lab: [address] [address] Performing Lab: [address] [address] ALBUMIN 4.1 g/dL 3.5-5.2 Jan 28, 2025 02:20 PM [facility] Specimen Type: PLASM [...] Jan 17, 2025 09:57 AM Reporting Lab: [address] [address] Performing Lab: [address] [address] CREATININE 2.55 mg/dL H 0.72-1.25 UREA NITROGEN 38 mg/dL H 9-25 GLUCOSE 91 mg/dL 74-100 SODIUM 142 mmol/L 136-145 POTASSIUM 4.5 mmol/L 3.5-5.1 CHLORIDE 109 mmol/L H 98-107 CO2 25 mmol/L 22-29 CALCIUM 8.8 mg/dL 8.4-10.2 ANION GAP 8 meq/L 3-19 eGFR (CKD-EPI) Jan 11, 2025 09:53 AM [facility] PANEL 1 PLASMA Specimen Type: PLASM [...] Jan 08, 2025 02:55 PM Reporting Lab: [address] [address] Performing Lab: [address] [address] CREATININE 2.62 mg/dL H 0.72-1.25 UREA NITROGEN 46 mg/dL H 9-25 GLUCOSE 105 mg/dL H 74-100 SODIUM 143 mmol/L 136-145 POTASSIUM 4.7 mmol/L 3.5-5.1 CHLORIDE 107 mmol/L 98-107 CO2 25 mmol/L 22-29 CALCIUM 9.3 mg/dL 8.4-10.2 ANION GAP 11 meq/L 3-19 eGFR (CKD-EPI) Dec 31, 2024 12:02 PM [facility] GLUCOSE-HAND MONITOR CAPILLARY Specime n Type: CAPILLARY Comment: Test performed by: [id number] Meter #: [id number] Ordering Provider: CHLOE SEVERINO Report Released Date/Time: Dec 31, 2024 12:58 PM Reporting Lab: [facility] [address] [address] Performing Lab: [facility] [address] [address] GLUCOSE-HAND MONITOR 129 mg/dL H 71-99 Dec 31, 2024 07:50 AM [facility] PANEL 1 PLASMA Specimen Type: [...] Dec 30, 2024 08:23 AM Reporting Lab: [place] [phone] Performing Lab: [place] [phone] CREATININE 2.04 mg/dL H 0.72-1.25 UREA NITROGEN 31 mg/dL H 9-25 GLUCOSE 94 mg/dL 74-100 SODIUM 138 mmol/L 136-145 POTASSIUM 4.4 mmol/L 3.5-5.1 CHLORIDE 105 mmol/L 98-107 CO2 25 mmol/L 22-29 CALCIUM 8.9 mg/dL 8.4-10.2 ANION GAP 8 meq/L 3-19 eGFR (CKD-EPI) 32 Dec 31, 2024 07:50 AM [facility] CBC/PLT BLOOD Specimen Type : BLOOD No comment entered. Ordering Provider: CHLOE SEVERINO Report Released Date/Time: Dec 30, 2024 08:23 AM Reporting Lab: [place] [phone] Performing Lab: [place] [phone] WBC 8.2 10*3/uL 5.0-10.0 RBC 4.03 10*6/uL L 4.6-6.2 HGB 12.0 g/dL L 14.0-18.0 HCT 37.2 L 42.0-52.0 MCV 92.3 fL 80.0-94.0 MCH 29.8 pg 27.0-31.0 MCHC 32.3 g/dL 32.0-36.0 PLT 191 10*3/uL 150-450 MPV 10.5 fL 9.0-13.1 RDW 13.8 11.0-16.0 NRBC 0.0 0.0-0.0 Dec 31, 2024 06:38 AM [facility] GLUCOSE-HAND MONITOR CAPILLARY Specime n Type: CAPILLARY Comment: Test performed by: [id number] Meter #: [id number] Ordering Provider: CHLOE SEVERINO Report Released Date/Time: Dec 31, 2024 07:17 AM Reporting Lab: [place] [phone] Performing Lab: [address] [address] GLUCOSE-HAND MONITOR 99 mg/dL -99 Dec 30, 2024 08:10 PM [facility] GLUCOSE-HAND MONITOR CAPILLARY Specime n Type: CAPILLARY Comment: Test performed by: [id number] Meter #: [id number] Ordering Provider: CHLOE SEVERINO Report Released Date/Time: Dec 30, 2024 09:15 PM Reporting Lab: [address] [address] Performing Lab: [address] [address] GLUCOSE-HAND MONITOR 124 mg/dL H -Dec 30, 2024 04:21 PM [facility] GLUCOSE-HAND MONITOR CAPILLARY Specime n Type: CAPILLARY Comment: Test performed by: [id number] Meter #: [id number] Ordering Provider: CHLOE SEVERINO Report Released Date/Time: Dec 30, 2024 04:39 PM Reporting Lab: [address] [address] Performing Lab: [address] [address] GLUCOSE-HAND MONITOR 92 mg/dL -Dec 30, 2024 11:54 AM [facility] MRSA SURVL NARES DNA NARES [...] Dec 30, 2024 10:43 AM Reporting Lab: [address] [address] Performing Lab: [address] [address] MRSA SURVL NARES DNA Negative Negative Dec 30, 2024 11:39 AM [facility] GLUCOSE-HAND MONITOR CAPILLARY Specime n Type: CAPILLARY Comment: Test performed by: [id number] Meter #: [id number] Ordering Provider: CHLOE SEVERINO Report Released Date/Time: Dec 30, 2024 11:56 AM Reporting Lab: [address] [address] Performing Lab: [place] [phone] GLUCOSE-HAND MONITOR 115 mg/dL H 71-99 Dec 30, 2024 07:46 AM [facility] CODE / PNEUMATIC TESTER VENOUS BLOOD GAS VENOUS BLOOD Specimen Type: VENOUS BLOOD Comment: Collection Time: 12-30-2024 @ 07:46 Ordering Provider: KEYANNA EDMONDSON Report Released Date/Time: Dec 30, 2024 07:54 AM Reporting Lab: [address] [address] Performing Lab: [address] [address] .VpCO2 46 mm[Hg] 41-51 .VpH 7.34 7.33-7.43 Dec 30, 2024 07:46 AM [facility] CODE / PNEUMATIC TESTER BLUE TOP PLASMA Specimen Type: PLASMA No comment entered. Ordering Provider: KEYANNA EDMONDSON Report Released Date/Time: Dec 30, 2024 07:53 AM Reporting Lab: [address] [address] Performing Lab: [address] [address] PT PATIENT 15.1 s H 11.7-14.4 INTERNATIONAL NORMALIZED RATIO 1.21 H 0 .87-1.14 PTT PATIENT 32.2 s 24.0-33.2 Dec 30, 2024 07:46 AM [facility] CODE / PNEUMATIC TESTER GREEN TOP PLASMA Specimen Type: ALFREDITO SMA [...] I information resource can be reached in [facility] in the Tools menu, under the [...] Dec 30, 2024 07:53 AM Reporting Lab: [address] [address] Performing Lab: [address] [address] IONIZED CALCIUM 1.13 mmol/L L 1.15-1.29 CREATININE [...] 6 4-35 Dec 30, 2024 07:46 AM [facility] CODE / PNEUMATIC TESTER BACH TOP PLASMA Specimen Type: PLASMA No comment entered. Ordering Provider: KEYANNA EDMONDSON Report Released Date/Time: Dec 30, 2024 07:53 AM Reporting Lab: [address] [address] Performing Lab: [address] [address] LACTIC ACID 0.9 mmol/L 0.5-2.2 Dec 30, 2024 07:46 AM [facility] CODE / PNEUMATIC TESTER LAVENDER TOP BLOOD Spec imen Type: BLOOD No comment entered. Ordering Provider: KEYANNA EDMONDSON Report Released Date/Time: Dec 30, 2024 07:53 AM Reporting Lab: [address] [address] Performing Lab: [address] [address] WBC 10.2 10*3/uL H 5.0-10.0 RBC 4.04 [...] 01:30 PM VA-TOBACCO FORMER USER [facility] Tobacco Use History This section includes a history of the smoking, or tobacco-related health factors, that were collected on or before the date of the Encounter. The data comes from the [place] facility where the Encounter took place. Date/Time Smoking Status/Tobacco Use Comment F acility May 25, 2023 01:30 PM VA-TOBACCO QUIT 15 YRS OR MORE [facility] Jun 18, 2022 01:30 PM VA-TOBACCO FORMER USER [facility] Jun 18, 2022 01:30 PM VA-TOBACCO QUIT 15 YRS OR MORE [facility] Jun 29, 2021 03:00 PM VA-TOBACCO FORMER USER [facility] Jun 29, 2021 03:00 PM VA-TOBACCO QUIT 15 YRS OR MORE [facility] Jul 28, 2020 09:30 AM VA-TOBACCO FORMER USER [facility] Jul 28, 2020 09:30 AM VA-TOBACCO QUIT 15 YRS OR MORE [facility] Jul 09, 2019 03:25 PM VA-TOBACCO NEVER USED [facility] Aug 24, 2018 02:06 PM VA-TOBACCO FORMER USER [facility] Aug 24, 2018 02:06 PM VA-TOBACCO QUIT 15 YRS OR MORE [facility] Sep 22, 2017 07:57 AM V9 LIFETIME NON-USER OF TOBACCO [facility] December 15, 2015 08:07 AM V9 LIFETIME NON-USER OF TOBACCO [facility] Jun 14, 2014 07:48 AM V9 LIFETIME NON-USER OF TOBACCO [facility] Jun 07, 2013 10:08 AM V9 LIFETIME NON-USER OF TOBACCO [facility] May 29, 2012 10:26 AM V9 LIFETIME NON-USER OF TOBACCO [facility] Nov 22, 2011 02:23 PM V9 LIFETIME NON-USER OF TOBACCO [facility] Oct 23, 2010 09:22 AM V9 QUIT TOBACCO >7 YEARS AGO [facility] May 30, 2007 03:08 PM V9 LIFETIME NON-USER OF TOBACCO [facility] Radiology Reports: +/- 30 days [...] DUPLEX LOWE R EXT BILAT: ROBBIE HUANG [id number] -1940 M Exm Date: JAN 28, 2025@13:17 Req Phys: ADLIA COBB Pat Loc: [facility] PACT [facility] 16-1 (Req'g Loc) Img Loc: [facility] [place] Service: Unknown (Case [id number] COMPLETE) VENOUS DUPLEX LOWER EXT BILAT (VAS Detailed) CPT:24734 Reason for Study: SEE CLINICAL HISTORY Clinical History: Venous Duplex for Valvular Competence/Venous Insufficiency: Chronic venous insufficiency Report Status: Verified Date Reported: JAN 29, 2025 Date Verified: JAN 29, 2025 Asset Management Lead E-Sig: Report: EXAM: VENOUS DUPLEX EXAM OF [...] ABNORMALITY, ATTN NEEDED Primary Interpreting Staff: NICOLASA D ENDEAN, ATTENDING PHYSICIAN Verified by construction mgr for NICOLASA FLORES /NICOLASA SOMMER [facility] Jan 28, 2025 01:17 PM SEGMENTAL PRESSURE S, LOWER EXT([place]OR[place]) MANOLO: ROBBIE HUANG [id number] -1940 M Exm Date: JAN 28, 2025@13:17 Req Phys: DALIA COBB R Pat Loc: [facility] 16-1 (Req'g Loc) Img Loc: [facility] Service: Unknown (Case [id number] COMPLETE) SEGMENTAL PRESSURES, LOWER EXT(AB(VAS Detailed) CPT:98459 Reason for Study: SEE CLINICAL HISTORY Clinical History: FLORENCE's/Segs Indications: Other: BLE edema, r/o PVD for compression tx. Report Status: Verified Date Reported: JAN 29, 2025 Date Verified: JAN 29, 2025 Asset Management Lead E-Sig: Report: LE segmental pressures TECHNIQUE: Continuous wave Doppler waveforms are obtained from pedal vessels, segmental pressures are measured at rest. Photoplethysmographic waveforms are obtained of the digits with pressure measurement. COMPARISON: No prior FINDINGS: Right: Right brachial arterial pressure is 134 mmHg. Multiphasic waveforms are noted in the right posterior tibial and right dorsalis pedis arteries. ABIs demonstrate calcification with right WIRE MESH KNITTER 1.44, left DPA 1.28. Right toe pressure is 115 mmHg. Left: Left brachial arterial pressure is 134 mmHg. Multiphasic waveforms are noted in the left posterior tibial and left dorsalis pedis arteries. ABIs demonstrate calcification with right WIRE MESH KNITTER 1.44, left DPA 1.21. Left toe pressure [...] Staff: NICOLASA FLORES, ATTENDING PHYSICIAN Verified by construction mgr for NICOLASA FLORES /NICOLASA SOMMER [facility] Dec 30, 2024 01:13 AM [id number] RADIOLOGY EX AM PERF/INTER BY OTHER FACILITY: ROBBIE HUANG [id number] -1940 M Exm Date: DEC 30, 2024@01:13 Req Phys: DALIA COBB Abby Loc: [facility]ETO X-RAY/ROUTINE/CDD/NC (Req' Img Loc: OUTSIDE2 LD RAD Service: Unknown (Case [id number] COMPLETE) [id number] RADIOLOGY EXAM PERF/INTER B(RAD Detailed) CPT:70434 Reason for Study: Exam imported from outside Clinical History: Original Data for Imported Study Patient Name: ROBBIE HUANG Date: 1940 Sex: M Study Date: 12/30/24 Study Time: 01:13:02 Study Description: XR CHEST PORTABLE Referring Physician: RICHARD CHAVES Series 1: 1 CR file Acquisition site: [facility] Report Status: Electronically Filed Date Reported: JAN 23, 2025 Report: Electronically generated report for outside study. Impression: Electronically generated report for outside study. Primary Diagnostic Code: VERIFIED BY: / *ELECTRONICALLY FILED* [facility] Encounter Notes: All associated encounter notes This section contains the clinical notes associated to the Encounter. Date/Time Encounter Note(s) Provider Source Jan 24, 2025 01:58 PM CARE COORDINATION HOME TELEHEALTH FOLLOW-UP NOTE: LOCAL TITLE: HT INTERVENTION NOTE STANDARD TITLE: CARE COORDINATION HOME TELEHEALTH FOLLOW-UP NOTE DATE OF NOTE: JAN 24, 2025@13:58 ENTRY DATE: JAN 24, 2025@13:58:36 AUTHOR: GARCIA BRUNNER COSIGNER: URGENCY: STATUS: COMPLETED [...] will be less than 140/90. INTERVENTIONS: 1. [place] will monitor home vitals daily over the [...] summary reports to the primary care provider. [facility] is actively enrolled in the Home Telehealth program. Review of data shows the following out of range responses: Patient Name: ROBBIE HUANG Disease(s): CHF, Hypertension Date Range: 01/10/2025 - 01/24/2025 [facility] Vitals Report Reading Date Sys/[facility] BP-HR Weight 01/24/25 128/65 (09:11) 57 (09:11) 179.2 (09:12) 01/23/25 127/66 (09:52) 55 (09:52) 178.8 (09:53) [...] 179.6 (08:15) 01/10/25 131/65 (08:14) 56 (08:14) [facility] Average Report Sys/[facility] BP-HR Weight Average 132/69 57 177.1 High 151/95 67 181.0 Low 119/61 50 154.6 Assessment/Intervention( s)/Plan: Called and spoke with regarding check in with weight uptrend. He stated that he does have some slight swelling in both ankles . But he did take fluid pill yesterday and aware okay to take again with additional swelling. He denies any SOA, chest pressure/pain, palpitations, dizziness, etc. He will call with any new concerns or further assistance needed. He appreciated call to check in. Data update above [place] asymptomatic; denies concerns HT RN to continue to monitor /es/ GARCIA BRUNNER, MSN, RN-BC QUALITY REVIEW SPECIALIST Signed: 01/24/2025 15:32 GARCIA BRUNNER [facility]
--- OUTSIDE RECORDS SUMMARY | 2025-01-29 11:08 | XMS_ITS | Encounter Summary ---
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 Date/Time Encounter Type Encounter Description Reason Pro vider Source Jan 29, 2025 03:08 PM Outpatient Encounter PRIMARY CARE/MEDICINE IHE Encounter Template Text not used by [place] Plan of Treatment: Future Appointments (+ 6 months) and Future Tests (+/- 45 days) The Plan of Treatment section includes future care activities for the [facility] [place] [facility] This section includes future appointments and future orders which are active, pending or scheduled. Future Appointments This section includes appointments that were scheduled to occur 6 months from the date of the Encounter, up to a maximum of 20 appointments. The data comes from all [facility]. Appointment Date/Time Appointment Type Appointme nt Facility Name Jan 31, 2025 03:00 PM AMBULATORY - MEDICINE [facility] Feb 05, 2025 01:00 PM AMBULATORY - MEDICINE [facility] Feb 05, 2025 02:00 PM AMBULATORY - MEDICINE [facility] Feb 07, 2025 01:15 PM [facility] Feb 08, 2025 01:30 PM [facility] Mar 04, 2025 01:30 PM [facility] NONE [facility] Mar 18, 2025 01:30 PM [facility] - NONE [facility] Mar 19, 2025 01:00 PM AMBULATORY - MEDICINE [facility] Apr 11, 2025 02:00 PM AMBULATORY - MEDICINE [facility] Active, Pending, and Scheduled Orders This section includes a listing of several types of active, pending, and scheduled orders, including clinic medications orders, diagnostic test orders, procedure orders and consult orders; where the start date of the order is 45 days before the date of the Encounter or 45 days after the date of theEncounter. The data comes from all [facility]. Test Date/Time Test Type Test Details Facility Name Feb 05, 2025 02:21 PM Procedure Order CP PULMONA RY FUNCTION TEST CP PULMONARY FUNCTION TEST Proc Orientation And Mobility Specialist's Choice [facility] Mar 15, 2025 12:00 AM Laboratory - Chemi stry Order PTH INTACT ([facility]) [id number] [facility] Mar 15, 2025 12:00 AM Laboratory - Chemi stry Order URINALYSIS URINE [facility] Mar 15, 2025 12:00 AM Laboratory - Chemi stry Order CREATININE URINE [facility] Mar 15, 2025 12:00 AM Laboratory - Chemi stry Order TOTAL PROTEIN URINE [facility] Mar 15, 2025 12:00 AM Laboratory - Chemi stry Order PANEL 4 [id number] [facility] Mar 15, 2025 12:00 AM Laboratory - Chemi stry Order 25-OH VITAMIN D [id number] [facility] Lab Results: +/- 30 days [...] Type Comment Jan 28, 2025 02:32 PM [facility] WN CREATININE URINE Specimen Type: URINE No comment entered. Ordering Provider: APARNA KING Report Released Date/Time: Oct 02, 2024 03:22 PM Reporting Lab: [address] [address] Performing Lab: [address] [address] CREATININE 92.7 mg/dL Jan 28, 2025 02:32 PM [facility] TOTAL PROTEIN URINE Specimen Type: URINE No comment entered. Ordering Provider: APARNA KING Report Released Date/Time: Oct 02, 2024 03:22 PM Reporting Lab: [address] [address] Performing Lab: [address] [address] TOTAL PROTEIN 15 mg/dL H 0-14 Jan 28, 2025 02:32 PM [facility] URINALYSIS URINE Specimen Type: URINE Comment: Microscopic not indicated Ordering Provider: APARNA KING Report Released Date/Time: Oct 02, 2024 03:22 PM Reporting Lab: [place] [address] Performing Lab: [place] [address] URINE COLOR Light Yellow Colorless-Yello w APPEARANCE Clear Clear UROBILINOGEN Normal mg/dL Normal URINE BLOOD Negative Negative URINE BILIRUBIN Negative Negative URINE KETONES Negative mg/dL Negative URINE PROTEIN Negative mg/dL Negative-Tr rachell URINE PH 5.5 4.5-8.0 URINE NITRITE Negative Negative URINE LEUKOCYTE EST Negative Negative SPECIFIC GRAVITY 1.019 1.005-1.030 URINE GLUCOSE >1000 mg/dL H Negative Jan 28, 2025 02:21 PM [facility] 25-OH VITAMIN D SERUM Specime [...] Oct 02, 2024 03:22 PM Reporting Lab: [place] [address] Performing Lab: [place] [address] 25-OH VITAMIN D 40.7 ng/mL 20.0-50.0 Jan 28, 2025 02:21 PM [facility] PTH INTACT ([facility]) PLASMA Spe [...] Oct 02, 2024 03:22 PM Reporting Lab: [place] [address] Performing Lab: [address] [address] PTH INTACT ([facility]) 130.0 pg/mL H 8.7-77.1 Jan 28, 2025 02:21 PM [facility] CBC/PLT BLOOD Specimen Type: BLOOD No comment entered. Ordering Provider: APARNA KING Report Released Date/Time: Oct 02, 2024 03:22 PM Reporting Lab: [address] [address] Performing Lab: [address] [address] WBC 6.5 10*3/uL 5.0-10.0 RBC 4.18 10*6/uL L 4.6-6.2 HGB 12.4 g/dL L 14.0-18.0 HCT 39.2 L 42.0-52.0 MCV 93.8 fL 80.0-94.0 MCH 29.7 pg 27.0-31.0 MCHC 31.6 g/dL L 32.0-36.0 PLT 212 10*3/uL 150-450 MPV 10.7 fL 9.0-13.1 RDW 13.9 11.0-16.0 NRBC 0.0 0.0-0.0 Jan 28, 2025 02:20 PM [facility] PHOSPHORUS PLASMA Specimen Type: PLASM A Comment: [...] Jan 17, 2025 09:57 AM Reporting Lab: [address] [address] Performing Lab: [address] [address] PHOSPHORUS 3.5 mg/dL 2.3-4.7 Jan 28, 2025 02:20 PM [facility] ALBUMIN PLASMA Specimen Type: PLASM A Comment: [...] Jan 17, 2025 09:57 AM Reporting Lab: [address] [address] Performing Lab: [address] [address] ALBUMIN 4.1 g/dL 3.5-5.2 Jan 28, 2025 02:20 PM [facility]MA Specimen Type: PLASM [...] Jan 17, 2025 09:57 AM Reporting Lab: [address] [address] Performing Lab: [address] [address] CREATININE 2.55 mg/dL H 0.72-1.25 UREA NITROGEN 38 mg/dL H 9-25 GLUCOSE 91 mg/dL 74-100 SODIUM 142 mmol/L 136-145 POTASSIUM 4.5 mmol/L 3.5-5.1 CHLORIDE 109 mmol/L H 98-107 CO2 25 mmol/L 22-29 CALCIUM 8.8 mg/dL 8.4-10.2 ANION GAP 8 meq/L 3-19 eGFR (CKD-EPI) Jan 11, 2025 09:53 AM [facility] Specimen Type: [...] Ordering Provider: FARHAT BRIGGS Report Released Date/Time: Jan 08, 2025 02:55 PM Reporting Lab: [address] [address] Performing Lab: [address] [address] CREATININE 2.62 mg/dL H 0.72-1.25 UREA NITROGEN 46 mg/dL H 9-25 GLUCOSE 105 mg/dL H 74-100 SODIUM 143 mmol/L 136-145 POTASSIUM 4.7 mmol/L 3.5-5.1 CHLORIDE 107 mmol/L 98-107 CO2 25 mmol/L 22-29 CALCIUM 9.3 mg/dL 8.4-10.2 ANION GAP 11 meq/L 3-19 eGFR (CKD-EPI) Dec 31, 2024 12:02 PM [facility] GLUCOSE-HAND MONITOR CAPILLARY Specime n Type: CAPILLARY Comment: Test performed by: [id number] Meter #: [id number] Ordering Provider: CHLOE SEVERINO Report Released Date/Time: Dec 31, 2024 12:58 PM Reporting Lab: [address] [address] Performing Lab: [address] [address] GLUCOSE-HAND MONITOR 129 mg/dL H 71-99 Dec 31, 2024 07:50 AM [facility] PANEL 1 PLASMA Specimen Type: PLASM [...] 30, 2024 08:23 AM Reporting Lab: [address] [address] Performing Lab: [address] [address] CREATININE 2.04 mg/dL H 0.72-1.25 UREA NITROGEN 31 mg/dL H 9-25 GLUCOSE 94 mg/dL 74-100 SODIUM 138 mmol/L 136-145 POTASSIUM 4.4 mmol/L 3.5-5.1 CHLORIDE 105 mmol/L 98-107 CO2 25 mmol/L 22-29 CALCIUM 8.9 mg/dL 8.4-10.2 ANION GAP 8 meq/L 3-19 eGFR (CKD-EPI) 32 Dec 31, 2024 07:50 AM [facility] CBC/PLT BLOOD Specimen Type : BLOOD No comment entered. Ordering Provider: CHLOE SEVERINO Report Released Date/Time: Dec 30, 2024 08:23 AM Reporting Lab: [address] [address] Performing Lab: [address] [address] WBC 8.2 10*3/uL 5.0-10.0 RBC 4.03 10*6/uL L 4.6-6.2 HGB 12.0 g/dL L 14.0-18.0 HCT 37.2 L 42.0-52.0 MCV 92.3 fL 80.0-94.0 MCH 29.8 pg 27.0-31.0 MCHC 32.3 g/dL 32.0-36.0 PLT 191 10*3/uL 150-450 MPV 10.5 fL 9.0-13.1 RDW 13.8 11.0-16.0 NRBC 0.0 0.0-0.0 Dec 31, 2024 06:38 AM [facility] GLUCOSE-HAND MONITOR CAPILLARY Specime n Type: CAPILLARY Comment: Test performed by: [id number] Meter #: [id number] Ordering Provider: CHLOE SEVERINO Report Released Date/Time: Dec 31, 2024 07:17 AM Reporting Lab: [facility] [address] [place] [address] Performing Lab: [address] [address] GLUCOSE-HAND MONITOR 99 mg/dL 71-99 Social History: Smoking Status (Most current) and Tobacco Use (All prior to encounter date) This section includes the most current, and the historical, smoking and tobacco- related health factors from the [place] facility where the Encounter took place. Current Smoking Status This section includes the most current smoking, or tobacco-related health factor, from the [place] facility where the Encounter took place. Date/Time Current Smoking Status Comment Facil ity May 25, 2023 01:30 PM [facility] Tobacco Use History This section includes a history of the smoking, or tobacco-related health factors, that were collected on or before the date of the Encounter. The data comes from the [place] facility where the Encounter took place. Date/Time [...] the Encounter. The data comes from all [facility] facilities. Date/Time Radiology Report Provider Source Jan 28, 2025 01:17 PM VENOUS DUPLEX LOWE R EXT BILAT: ROBBIE HUANG [id number] [facility]-1940 M Ex Date: JAN 28, 2025@13:17 Req Phys: FARHAT BRIGGS Loc: [facility] PACT WHITNEY 16-1 (Req'g Loc) Img Loc: [facility]O VAS LAB [facility] Service: Unknown (Case [id number] COMPLETE) VENOUS DUPLEX LOWER EXT BILAT (VAS Detailed) CPT:51254 Reason for Study: SEE CLINICAL HISTORY Clinical History: Venous Duplex for Valvular Competence/Venous Insufficiency: Chronic venous insufficiency Report Status: Verified Date Reported: JAN 29, 2025 Date Verified: JAN 29, 2025 Power Plant Operator E-Sig: Report: EXAM: VENOUS DUPLEX EXAM [...] Staff: NICOLASA FLORES, ATTENDING PHYSICIAN Verified by relationship associate for NICOLASA FLORES /NICOLASA SOMMER [facility] Jan 28, 2025 01:17 PM SEGMENTAL PRESSURE S, LOWER EXT(FLOR[place]) UNILAT: ROBBIE HUANG [facility] [id number] -1940 M Ex Date: JAN 28, 2025@13:17 Req Phys: FARHAT BRIGGS Pat Loc: [facility] PACT [facility]NEY 16-1 (Req'g Loc) Img Loc: [facility] Service: Unknown (Case [id number] COMPLETE) SEGMENTAL PRESSURES, LOWER EXT(AB(VAS Detailed) CPT:72677 Reason for Study: SEE CLINICAL HISTORY Clinical History: FLORENCE's/Segs Indications: Other: BLE edema, r/o PVD for compression tx. Report Status: Verified Date Reported: JAN 29, 2025 Date Verified: JAN 29, 2025 Power Plant Operator E-Sig: Report: LE segmental pressures TECHNIQUE: Continuous wave Doppler waveforms are obtained from pedal vessels, segmental pressures are measured at rest. Photoplethysmographic waveforms are obtained of the digits with pressure measurement. COMPARISON: No prior FINDINGS: Right: Right brachial arterial pressure is 134 mmHg. Multiphasic waveforms are noted in the right posterior tibial and right dorsalis pedis arteries. ABIs demonstrate calcification with right MANAGER AUTO 1.44, left DPA 1.28. Right toe pressure is 115 mmHg. Left: Left brachial arterial pressure is 134 mmHg. Multiphasic waveforms are noted in the left posterior tibial and left dorsalis pedis arteries. ABIs demonstrate calcification with right MANAGER AUTO 1.44, left DPA 1.21. Left toe pressure [...] Staff: NICOLASA FLORES, ATTENDING PHYSICIAN Verified by relationship associate for NICOLASA FLORES /NICOLASA SOMMER [facility] Dec 30, 2024 01:13 AM [id number] RADIOLOGY EX AM PERF/INTER BY OTHER FACILITY: ROBBIE HUANG [id number] -1940 M Exm Date: DEC 30, 2024@01:13 Req Phys: FARHAT BRIGGS Loc: [facility]O X-RAY/ROUTINE/CDD/NC (Req' Img Loc: OUTSIDE2 LD RAD Service: Unknown (Case [id number] COMPLETE) [id number] RADIOLOGY EXAM PERF/INTER B(RAD Detailed) CPT:34998 Reason for Study: Exam imported from outside Clinical History: Original Data for Imported Study Patient Name: ROBBIE HUANG Date: 1940 Sex: M Study Date: 12/30/24 Study Time: 01:13:02 Study Description: XR CHEST PORTABLE Referring Physician: RICHARD CHAVES Series 1: 1 CR file Acquisition site: [facility] Report Status: Electronically Filed Date Reported: JAN 23, 2025 Report: Electronically generated report for outside study. Impression: Electronically generated report for outside study. Primary Diagnostic Code: VERIFIED BY: / *ELECTRONICALLY FILED* [facility] Encounter Notes: All associated encounter notes This section contains the clinical notes associated to the Encounter. Date/Time Encounter Note(s) Provider Source Jan 29, 2025 03:08 PM PRIMARY CARE NOTE: LOCAL TITLE: Pc Chart Review Note STANDARD TITLE: PRIMARY CARE NOTE DATE OF NOTE: JAN 29, 2025@15:08 ENTRY DATE: JAN 29, 2025@15:08:39 AUTHOR: FARHAT BRIGGS EXP COSIGNER: URGENCY: STATUS: COMPLETED ABIs okay with calcification of arteries but no PVD. Venous insufficiency noted, if would like to try compression hose therapy for treatment, will need DIRECTOR PHARMACEUTICAL appt for compression hose measurement. /jack/ Farhat Briggs MD Primary Care Attending Signed: 01/29/2025 15:09 Receipt Acknowledged By: 01/30/2025 08:36 /jack/ JAIME VICENTE, RN PC FARM TRACTOR OPERATORREDEVELOPMENT SPECIALISTFARHAT BRIGGS [facility]
--- OUTSIDE RECORDS SUMMARY | 2025-01-30 04:37 | XMS_ITS | Encounter Summary ---
Author Name [facility] [facility] [place] Address [address] [place] [address] Care Team Providers Care Analytic Programmer Name Role Phone FARHAT BRIGGS Primary Care [...] AUTOM OTIVE - RETI Jul 25, 2018 [id number] TI KAMARA SPOUSE MEDICARE (WNR) MEDICARE (M) PART B Jan 22, 2007 PART B [id number] [phone] JUSTYNA HUANG RGE PATIENT MEDICARE (WNR) MEDICARE (M) PART A Sep 22, 2005 PART A [id number] MALUAT,JUSTYNA RGE PATIENT FOR LIFE TRICA RE FOR LIFE Jul 25, 2017 FOR LIFE [id number] ROBBIE HUANG JR PATIENT Selected Encounter This section includes the information on record at [place] for the Encounter. 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 This section includes future appointments and future orders which are active, pending or scheduled. Future Appointments This section includes appointments that were scheduled to occur 6 months from the date of the Encounter, up to a maximum of 20 appointments. The data comes from all [place] treatment facilities. Appointment Date/Time Appointment Type Appointme nt Facility Name Jan 31, 2025 03:00 PM AMBULATORY - MEDICINE [facility] Feb 05, 2025 01:00 PM AMBULATORY - MEDICINE [facility]IR NGTON-D [facility] Feb 05, 2025 02:00 PM AMBULATORY - MEDICINE [facility] NGTON-D [facility] Feb 07, 2025 01:15 PM AMBULATORY - MEDICINE SH[facility]IR NGTON [facility] Feb 08, 2025 01:30 PM AMBULATORY - NONE [place] [facility] Mar 04, 2025 01:30 PM AMBULATORY - NONE [place] [facility] Mar 18, 2025 01:30 PM AM[facility]ORY - NONE [place] [facility] Mar 19, 2025 01:00 PM AMBULATORY - MEDICINE [facility] NGTON [facility] Apr 11, 2025 02:00 PM AMBULATORY - MEDICINE [facility] Active, Pending, and Scheduled Orders This section includes a listing of several types of active, pending, and scheduled orders, including clinic medications orders, diagnostic test orders, procedure orders and consult orders; where the start date of the order is 45 days before the date of the Encounter or 45 days after the date of theEncounter. The data comes from all [place] treatment facilities. Test Date/Time Test Type Test Details Facility Name Feb 05, 2025 02:21 PM Procedure Order CP PULMONA RY FUNCTION TEST CP PULMONARY FUNCTION TEST Proc [employer] [facility] Mar 15, 2025 12:00 AM Laboratory - Chemi stry Order PTH INTACT ([place]) [id number] [facility] Mar 15, 2025 12:00 AM Laboratory - Chemi stry Order URINALYSIS URINE [facility] Mar 15, 2025 12:00 AM Laboratory - Chemi stry Order CREATININE URINE [facility] Mar 15, 2025 12:00 AM Laboratory - Chemi stry Order TOTAL PROTEIN URINE [facility] Mar 15, 2025 12:00 AM Laboratory - Chemi stry Order PANEL 4 [id number] [facility] Mar 15, 2025 12:00 AM Laboratory - Chemi stry Order 25-OH VITAMIN D [id number] [facility] Lab Results: +/- 30 days of the encounter This section includes the Chemistry and Hematology Lab Results on record with [place] for the patient. Radiology Reports and Pathology Reports are provided separately, in subsequent sections. Lab Results This section contains the Chemistry/Hematology Results that were resulted 30 days before or 30 daysafter the date of the Encounter. Date/Time Source Result Type Result - Unit Interpretation Reference Range Specimen Type Comment Jan 28, 2025 02:32 PM [facility] WN CREATININE URINE Specimen Type: URINE No comment entered. Ordering Provider: APARNA KING Report Released Date/Time: Oct 02, 2024 03:22 PM Reporting Lab: [address] [address] Performing Lab: [address] [address] CREATININE 92.7 mg/dL Jan 28, 2025 02:32 PM [facility] TOTAL PROTEIN URINE Specimen Type: URINE No comment entered. Ordering Provider: APARNA KING Report Released Date/Time: Oct 02, 2024 03:22 PM Reporting Lab: [address] [address] Performing Lab: [address] [address] TOTAL PROTEIN 15 mg/dL H 0-14 Jan 28, 2025 02:32 PM [facility] URINALYSIS URINE Specimen Type: URINE Comment: Microscopic not indicated Ordering Provider: APARNA KING Report Released Date/Time: Oct 02, 2024 03:22 PM Reporting Lab: [address] [address] Performing Lab: [address] [address] URINE COLOR Light Yellow Colorless-Yello w APPEARANCE Clear Clear UROBILINOGEN Normal mg/dL Normal URINE BLOOD Negative Negative URINE BILIRUBIN Negative Negative URINE KETONES Negative mg/dL Negative URINE PROTEIN Negative mg/dL Negative-Tr rachell URINE PH 5.5 4.5-8.0 URINE NITRITE Negative Negative URINE LEUKOCYTE EST Negative Negative SPECIFIC GRAVITY 1.019 1.005-1.030 URINE GLUCOSE >1000 mg/dL H Negative Jan 28, 2025 02:21 PM [facility] 25-OH VITAMIN D SERUM [...] Oct 02, 2024 03:22 PM Reporting Lab: [address] [address] Performing Lab: [address] [address] 25-OH VITAMIN D 40.7 ng/mL 20.0-50.0 Jan 28, 2025 02:21 PM [facility] PTH INTACT (MCCALL) PLASMA [...] Oct 02, 2024 03:22 PM Reporting Lab: [address] [address] Performing Lab: [address] [address] PTH INTACT (MCCALL) 130.0 pg/mL H 8.7-77.1 Jan 28, 2025 02:21 PM [facility] CBC/PLT BLOOD Specimen Type: BLOOD No comment entered. Ordering Provider: APARNA KING Report Released Date/Time: Oct 02, 2024 03:22 PM Reporting Lab: [address] [address] Performing Lab: [address] [address] WBC 6.5 10*3/uL 5.0-10.0 RBC 4.18 10*6/uL L 4.6-6.2 HGB 12.4 g/dL L 14.0-18.0 HCT 39.2 L 42.0-52.0 MCV 93.8 fL 80.0-94.0 MCH 29.7 pg 27.0-31.0 MCHC 31.6 g/dL L 32.0-36.0 PLT 212 10*3/uL 150-450 MPV 10.7 fL 9.0-13.1 RDW 13.9 11.0-16.0 NRBC 0.0 0.0-0.0 Jan 28, 2025 02:20 PM [facility] ALBUMIN PLASMA Specimen Type: PLASM [...] Jan 17, 2025 09:57 AM Reporting Lab: [address] [address] Performing Lab: [address] [address] ALBUMIN 4.1 g/dL 3.5-5.2 Jan 28, 2025 02:20 PM [facility] PHOSPHORUS PLASMA Specimen Type: PLASM A [...] Jan 17, 2025 09:57 AM Reporting Lab: [address] [address] Performing Lab: [address] [address] PHOSPHORUS 3.5 mg/dL 2.3-4.7 Jan 28, 2025 02:20 PM [facility] PLASMA Specimen Type: PLASM [...] Jan 17, 2025 09:57 AM Reporting Lab: [address] [address] Performing Lab: [address] [address] CREATININE 2.55 mg/dL H 0.72-1.25 UREA NITROGEN 38 mg/dL H 9-25 GLUCOSE 91 mg/dL 74-100 SODIUM 142 mmol/L 136-145 POTASSIUM 4.5 mmol/L 3.5-5.1 CHLORIDE 109 mmol/L H 98-107 CO2 25 mmol/L 22-29 CALCIUM 8.8 mg/dL 8.4-10.2 ANION GAP 8 meq/L 3-19 eGFR (CKD-EPI) Jan 11, 2025 09:53 AM [facility] PLASMA Specimen Type: PLASM [...] Jan 08, 2025 02:55 PM Reporting Lab: [facility] [address] [address] Performing Lab: [facility] [address] [facility] [address] CREATININE 2.62 mg/dL H 0.72-1.25 UREA NITROGEN 46 mg/dL H 9-25 GLUCOSE 105 mg/dL H 74-100 SODIUM 143 mmol/L 136-145 POTASSIUM 4.7 mmol/L 3.5-5.1 CHLORIDE 107 mmol/L 98-107 CO2 25 mmol/L 22-29 CALCIUM 9.3 mg/dL 8.4-10.2 ANION GAP 11 meq/L 3-19 eGFR (CKD-EPI) 23 Social History: Smoking Status (Most current) and Tobacco Use (All prior to encounter date) This section includes the most current, and the historical, smoking and tobacco- related health factors from the [place] facility where the Encounter took place. Current Smoking Status This section includes the most current smoking, or tobacco-related health factor, from the [place] facility where the Encounter took place. Date/Time Current Smoking Status Comment Kelechi dial May 25, 2023 01:30 PM VA-TOBACCO FORMER USER [facility] Tobacco Use History This section includes a history of the smoking, or tobacco-related health factors, that were collected on or before the date of the Encounter. The data comes from the [place] facility where the Encounter took place. Date/Time Smoking Status/Tobacco Use Comment F acgenet May 25, 2023 01:30 PM VA-TOBACCO QUIT 15 YRS OR MORE [facility] Jun 18, 2022 01:30 PM VA-TOBACCO FORMER USER [facility] Jun 18, 2022 01:30 PM VA-TOBACCO QUIT 15 YRS OR MORE [facility] Jun 29, 2021 03:00 PM VA-TOBACCO FORMER USER [facility] Jun 29, 2021 03:00 PM VA-TOBACCO QUIT 15 YRS OR MORE [facility] Jul 28, 2020 09:30 AM VA-TOBACCO FORMER USER [facility] Jul 28, 2020 09:30 AM VA-TOBACCO QUIT 15 YRS OR MORE [facility] Jul 09, 2019 03:25 PM VA-TOBACCO NEVER USED [facility] Aug 24, 2018 02:06 PM VA-TOBACCO FORMER USER [facility] Aug 24, 2018 02:06 PM VA-TOBACCO QUIT 15 YRS OR MORE [facility] Sep 22, 2017 07:57 AM V9 LIFETIME NON-USER OF TOBACCO [facility] December 15, 2015 08:07 AM V9 LIFETIME NON-USER OF TOBACCO [facility] Jun 14, 2014 07:48 AM V9 LIFETIME NON-USER OF TOBACCO [facility] Jun 07, 2013 10:08 AM V9 LIFETIME NON-USER OF TOBACCO [facility] May 29, 2012 10:26 AM V9 LIFETIME NON-USER OF TOBACCO [facility] Nov 22, 2011 02:23 PM V9 LIFETIME NON-USER OF TOBACCO [facility] Oct 23, 2010 09:22 AM V9 QUIT TOBACCO >7 YEARS AGO [facility] May 30, 2007 03:08 PM V9 LIFETIME NON-USER OF TOBACCO [facility] Radiology Reports: +/- 30 [...] the Encounter. The data comes from all [facility] facilities. Date/Time Radiology Report Provider Source Jan 28, 2025 01:17 PM VENOUS DUPLEX LOWE R EXT BILAT: ROBBIE HUANG [facility] [id number] [facility] M Ex Date: JAN 28, 2025@13:17 Req Phys: FARHAT BRIGGS Loc: VETO PACT WHITNEY 16-1 (Req'g Loc) Img Loc: VETO VAS LAB [facility] Service: Unknown (Case [id number] COMPLETE) VENOUS DUPLEX LOWER EXT BILAT (VAS Detailed) CPT:89622 Reason for Study: SEE CLINICAL HISTORY Clinical History: Venous Duplex for Valvular Competence/Venous Insufficiency: Chronic venous insufficiency Report Status: Verified Date Reported: JAN 29, 2025 Date Verified: JAN 29, 2025 Body Sander E-Sig: Report: EXAM: VENOUS DUPLEX EXAM OF [...] Staff: NICOLASA FLORES, ATTENDING PHYSICIAN Verified by customer project manager for NICOLASA FLORES /NICOLASA SOMMER [facility] Jan 28, 2025 01:17 PM SEGMENTAL PRESSURE S, LOWER EXT(FLORENCE) UNILAT: ROBBIE HUANG MICA [id number] [facility] M Ex Date: JAN 28, 2025@13:17 Req Phys: FARHAT BRIGGS Pat Loc: VETO PACT WHITNEY 16-1 (Req'g Loc) Img Loc: VETO VAS LAB [facility] Service: Unknown (Case [id number] COMPLETE) SEGMENTAL PRESSURES, LOWER EXT(AB(VAS Detailed) CPT:52187 Reason for Study: SEE CLINICAL HISTORY Clinical History: FLORENCE's/Segs Indications: Other: BLE edema, r/o PVD for compression tx. Report Status: Verified Date Reported: JAN 29, 2025 Date Verified: JAN 29, 2025 Body Sander E-Sig: Report: LE segmental pressures TECHNIQUE: Continuous wave Doppler waveforms are obtained from pedal vessels, segmental pressures are measured at rest. Photoplethysmographic waveforms are obtained of the digits with pressure measurement. COMPARISON: No prior FINDINGS: Right: Right brachial arterial pressure is 134 mmHg. Multiphasic waveforms are noted in the right posterior tibial and right dorsalis pedis arteries. ABIs demonstrate calcification with right MEAT PICKLER 1.44, left DPA 1.28. Right toe pressure is 115 mmHg. Left: Left brachial arterial pressure is 134 mmHg. Multiphasic waveforms are noted in the left posterior tibial and left dorsalis pedis arteries. ABIs demonstrate calcification with right MEAT PICKLER 1.44, left DPA 1.21. Left toe pressure [...] Staff: NICOLASA FLORES, ATTENDING PHYSICIAN Verified by customer project manager for NICOLASA FLORES /[facility] Encounter Notes: All associated encounter notes This section contains the clinical notes associated to the Encounter. Date/Time Encounter Note(s) Provider Source Jan 30, 2025 09:16 AM ADDENDUM: LOCAL TITLE: Addendum STANDARD TITLE: ADDENDUM DATE OF NOTE: JAN 30, 2025@09:16:26 ENTRY DATE: JAN 30, 2025@09:16:27 AUTHOR: STACI BURGER EXP COSIGNER: URGENCY: STATUS: COMPLETED Please contact to schedule PLANT ELECTRICIAN appt for Compression hose measurement. /jack/ STACI BURGER Licensed Practical Nurse Signed: 01/30/2025 09:17 Receipt Acknowledged By: 01/30/2025 14:17 /jack/ TYLER PETERS Advanced Supermarket Manager --- Original Document --- 01/30/25 PC CARE MANAGEMENT: phoned vet per pCP: ABIs okay with calcification of arteries but no PVD. Venous insufficiency noted, if would like to try compression hose therapy for treatment, will need PLANT ELECTRICIAN appt for compression hose measurement. Vet advised of above and understands plan. Vet states he has no energy. Wants pcp to see if swollen legs and loss of energy could be from medication. Was able to walk 1 mile daily but can hardly walk up driveway. Meds/heart are his thoughts PLANT ELECTRICIAN please schedule for compression hose measurements time spent: 9 minutes Yes - /Caregiver verbalized understanding of topics discussed and education provided /jack/ JAIME VICENTE, RN PC FIELD ADMINISTRATIVE ASSISTANT Signed: 01/30/2025 08:42 Receipt Acknowledged By: 01/30/2025 08:59 /jack/ Farhat Briggs MD Primary Care Attending 01/30/2025 09:16 /jack/ STACI BURGER Licensed Practical Nurse 01/30/2025 ADDENDUM STATUS: COMPLETED edema is expected side effect with amlodipine and mainly issue if eating too much salt in diet (bread, meats, cheese especially) but IS expected especially with full 10mg dose he is on. Pt has cardiology f/u tomorrow, would keep and discuss ongoing fatigue with them. Had abnormal patch holter last year and if has worsened since bblocker added in December, they need to know. He also has multiple underlying conditions that are quite severe that will impact his fatigue like his CKD 4, CHF, ILD. Pt also with pulm william of his ILD next week. /jack/ Farhat Briggs MD Primary Care Attending Signed: 01/30/2025 08:58 Receipt Acknowledged By: * AWAITING SIGNATURE * JAIME STEVE 01/30/2025 ADDENDUM STATUS: UNSIGNED You may not VIEW this UNSIGNED Addendum. ESEQUIELSTACI Tang Fina [facility] Jan 30, 2025 08:46 AM ADDENDUM: LOCAL TITLE: Addendum STANDARD TITLE: ADDENDUM DATE OF NOTE: JAN 30, 2025@08:46:08 ENTRY DATE: JAN 30, 2025@08:46:08 AUTHOR: FARHAT BRIGGS EXP COSIGNER: URGENCY: STATUS: COMPLETED edema is expected side effect with amlodipine and mainly issue if eating too much salt in diet (bread, meats, cheese especially) but IS expected especially with full 10mg dose he is on. Pt has cardiology f/u tomorrow, would keep and discuss ongoing fatigue with them. Had abnormal patch holter last year and if has worsened since bblocker added in December, they need to know. He also has multiple underlying conditions that are quite severe that will impact his fatigue like his CKD 4, CHF, ILD. Pt also with dex thomas of his ILD next week. /jack/ Farhat Briggs MD Primary Care Attending Signed: 01/30/2025 08:58 Receipt Acknowledged By: 02/01/2025 13:46 /es/ JAIME VICENTE, RN PC FIELD ADMINISTRATIVE ASSISTANT --- Original Document --- 01/30/25 PC CARE MANAGEMENT: phoned vet per pCP: ABIs okay with calcification of arteries but no PVD. Venous insufficiency noted, if would like to try compression hose therapy for treatment, will need PLANT ELECTRICIAN appt for compression hose measurement. Vet advised of above and understands plan. Vet states he has no energy. Wants pcp to see if swollen legs and loss of energy could be from medication. Was able to walk 1 mile daily but can hardly walk up driveway. Meds/heart are his thoughts PLANT ELECTRICIAN please schedule for compression hose measurements time spent: 9 minutes Yes - /Caregiver verbalized understanding of topics discussed and education provided /earline VICENTE, TATE PC FIELD ADMINISTRATIVE ASSISTANT Signed: 01/30/2025 08:42 Receipt Acknowledged By: 01/30/2025 08:59 /es/ Farhat Briggs MD Primary Care Attending 01/30/2025 09:16 /es/ STACI BURGER Licensed Practical Nurse 01/30/2025 ADDENDUM STATUS: COMPLETED Please contact to schedule PLANT ELECTRICIAN appt for Compression hose measurement. /jack/ STACI BURGER Licensed Practical Nurse Signed: 01/30/2025 09:17 Receipt Acknowledged By: 01/30/2025 14:17 /jack/ TYLER PETERS Advanced Supermarket Manager 01/30/2025 ADDENDUM STATUS: COMPLETED Called Mr. Huang and scheduled an appt to get measurement for his compession socks. Vet agreed to date and time, Feb 07, 2025 at 13:15. Reminder letter sent. /jack/ TYLER PETERS Advanced Supermarket Manager Signed: 01/30/2025 14:18 01/31/2025 ADDENDUM STATUS: COMPLETED Called patient, no answer, left general message to return phone call /earline VICENTE RN PC FIELD ADMINISTRATIVE ASSISTANT Signed: 01/31/2025 08:19 02/01/2025 ADDENDUM STATUS: COMPLETED Called patient, no answer, left general message to return phone call /earline VICENTE RN PC FIELD ADMINISTRATIVE ASSISTANT Signed: 02/01/2025 13:33 FARHAT BRIGGS [facility] Jan 30, 2025 08:37 AM PRIMARY CARE E & M NOTE: LOCAL TITLE: PC CARE MANAGEMENT STANDARD TITLE: PRIMARY CARE E & M NOTE DATE OF NOTE: JAN 30, 2025@08:37 ENTRY DATE: JAN 30, 2025@08:37:10 AUTHOR: JAIME STEVE EXP COSIGNER: URGENCY: STATUS: COMPLETED PC CARE MANAGEMENT Has ADDENDA phoned vet per pCP: ABIs okay with calcification of arteries but no PVD. Venous insufficiency noted, if would like to try compression hose therapy for treatment, will need PLANT ELECTRICIAN appt for compression hose measurement. Vet advised of above and understands plan. Vet states he has no energy. Wants pcp to see if swollen legs and loss of energy could be from medication. Was able to walk 1 mile daily but can hardly walk up driveway. Meds/heart are his thoughts PLANT ELECTRICIAN please schedule for compression hose measurements time spent: 9 minutes Yes - [place]/Caregiver verbalized understanding of topics discussed and education provided /jack/ JAIME VICENTE, RN PC FIELD ADMINISTRATIVE ASSISTANT Signed: 01/30/2025 08:42 Receipt Acknowledged By: 01/30/2025 08:59 /jack/ Farhat Briggs MD Primary Care Attending 01/30/2025 09:16 /jack/ STACI BURGER Licensed Practical Nurse 01/30/2025 ADDENDUM STATUS: COMPLETED edema is expected side effect with amlodipine and mainly issue if eating too much salt in diet (bread, meats, cheese especially) but IS expected especially with full 10mg dose he is on. Pt has cardiology f/u tomorrow, would keep and discuss ongoing fatigue with them. Had abnormal patch holter last year and if has worsened since bblocker added in December, they need to know. He also has multiple underlying conditions that are quite severe that will impact his fatigue like his CKD 4, CHF, ILD. Pt also with dex thomas of his ILD next week. /jack/ Farhat Briggs MD Primary Care Attending Signed: 01/30/2025 08:58 Receipt Acknowledged By: * AWAITING SIGNATURE * JAIME STEVE 01/30/2025 ADDENDUM STATUS: COMPLETED Please contact to schedule PLANT ELECTRICIAN appt for Compression hose measurement. /jack/ STACI BURGER Licensed Practical Nurse Signed: 01/30/2025 09:17 Receipt Acknowledged By: 01/30/2025 14:17 /jack/ TYLER PETERS Advanced Supermarket Manager 01/30/2025 ADDENDUM STATUS: COMPLETED Called Mr. Huang and scheduled an appt to get measurement for his compession socks. Vet agreed to date and time, Feb 07, 2025 at 13:15. Reminder letter sent. /jack/ TYLER PETERS Advanced Supermarket Manager Signed: 01/30/2025 14:18 01/31/2025 ADDENDUM STATUS: COMPLETED Called patient, no answer, left general message to return phone call /jack/ JAIME VICENTE, RN PC FIELD ADMINISTRATIVE ASSISTANT Signed: 01/31/2025 08:19 02/01/2025 ADDENDUM STATUS: COMPLETED Called patient, no answer, left general message to return phone call /earline VICENTE, RN PC FIELD ADMINISTRATIVE ASSISTANT Signed: 02/01/2025 13:33 JAIME STEVE [facility]
--- OUTSIDE RECORDS SUMMARY | 2025-01-31 06:32 | XMS_ITS | Encounter Summary ---
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 Date/Time Encounter Type Encounter Description Reason Pro vider Source Jan 31, 2025 10:32 AM Outpatient Encounter ADMIN PAT ACTIVTIES (MASNONCT) IHE Encounter Template Text not used by [place] Plan of Treatment: Future Appointments (+ 6 months) and Future Tests (+/- 45 days) The Plan of Treatment section includes future care activities for the [facility] [place] [facility] This section includes future appointments and future orders which are active, pending or scheduled. Future Appointments This section includes appointments that were scheduled to occur 6 months from the date of the Encounter, up to a maximum of 20 appointments. The data comes from all [facility]. Appointment Date/Time Appointment Type Appointme nt Facility Name Feb 05, 2025 01:00 PM AMBULATORY [facility] MED[facility]INE [facility] Feb 05, 2025 02:00 PM [facility]ICINE [facility] Feb 07, 2025 01:15 PM [facility] Feb 08, 2025 01:30 PM [facility] - NONE [facility] Mar 04, 2025 01:30 PM AM[facility]ULATORY - NONE [facility] Mar 18, 2025 01:30 PM [facility]BULATORY - NONE [facility] Mar 19, 2025 01:00 PM AMBULATORY - MEDICINE [facility] Apr 11, 2025 02:00 PM AMBULATORY - MEDICINE [facility] Active, Pending, and Scheduled Orders This section includes a listing of several types of active, pending, and scheduled orders, including clinic medications orders, diagnostic test orders, procedure orders and consult orders; where the start date of the order is 45 days before the date of the Encounter or 45 days after the date of theEncounter. The data comes from all [facility]. Test Date/Time Test Type Test Details Facility Name Feb 05, 2025 02:21 PM Procedure Order CP PULMONA RY FUNCTION TEST CP PULMONARY FUNCTION TEST Proc Multi Share Program Coordinator's Choice [facility] Mar 15, 2025 12:00 AM Laboratory - Chemi stry Order PTH INTACT ([facility]) [id number] [facility] Mar 15, 2025 12:00 AM Laboratory - Chemi stry Order URINALYSIS URINE [facility] Mar 15, 2025 12:00 AM Laboratory - Chemi stry Order CREATININE URINE [facility] Mar 15, 2025 12:00 AM Laboratory - Chemi stry Order TOTAL PROTEIN URINE [facility] Mar 15, 2025 12:00 AM Laboratory - Chemi stry Order PANEL 4 [id number] [facility] Mar 15, 2025 12:00 AM Laboratory - Chemi stry Order 25-OH VITAMIN D [id number] [facility] Lab Results: +/- 30 days of [...] Type Comment Jan 28, 2025 02:32 PM [facility] WN CREATININE URINE Specimen Type: URINE No comment entered. Ordering Provider: APARNA KING Report Released Date/Time: Oct 02, 2024 03:22 PM Reporting Lab: [address] [address] Performing Lab: [address] [address] CREATININE 92.7 mg/dL Jan 28, 2025 02:32 PM [facility] TOTAL PROTEIN URINE Specimen Type: URINE No comment entered. Ordering Provider: APARNA KING Report Released Date/Time: Oct 02, 2024 03:22 PM Reporting Lab: [address] [address] Performing Lab: [address] [address] TOTAL PROTEIN 15 mg/dL H 0-14 Jan 28, 2025 02:32 PM [facility] URINALYSIS URINE Specimen Type: URINE Comment: Microscopic not indicated Ordering Provider: APARNA KING Report Released Date/Time: Oct 02, 2024 03:22 PM Reporting Lab: [place] [address] Performing Lab: [place] [address] URINE COLOR Light Yellow Colorless-Yello w APPEARANCE Clear Clear UROBILINOGEN Normal mg/dL Normal URINE BLOOD Negative Negative URINE BILIRUBIN Negative Negative URINE KETONES Negative mg/dL Negative URINE PROTEIN Negative mg/dL Negative-Tr rachell URINE PH 5.5 4.5-8.0 URINE NITRITE Negative Negative URINE LEUKOCYTE EST Negative Negative SPECIFIC GRAVITY 1.019 1.005-1.030 URINE GLUCOSE >1000 mg/dL H Negative Jan 28, 2025 02:21 PM [facility] 25-OH VITAMIN D SERUM Specime [...] Oct 02, 2024 03:22 PM Reporting Lab: [place] [address] Performing Lab: [place] [address] 25-OH VITAMIN D 40.7 ng/mL 20.0-50.0 Jan 28, 2025 02:21 PM [facility] PTH INTACT ([facility]) PLASMA Spe [...] Oct 02, 2024 03:22 PM Reporting Lab: [place] [id number] Performing Lab: [address] [address] PTH INTACT ([facility]) 130.0 pg/mL H 8.7-77.1 Jan 28, 2025 02:21 PM [facility] CBC/PLT BLOOD Specimen Type: BLOOD No comment entered. Ordering Provider: APARNA KING Report Released Date/Time: Oct 02, 2024 03:22 PM Reporting Lab: [address] [address] Performing Lab: [address] [address] WBC 6.5 10*3/uL 5.0-10.0 RBC 4.18 10*6/uL L 4.6-6.2 HGB 12.4 g/dL L 14.0-18.0 HCT 39.2 L 42.0-52.0 MCV 93.8 fL 80.0-94.0 MCH 29.7 pg 27.0-31.0 MCHC 31.6 g/dL L 32.0-36.0 PLT 212 10*3/uL 150-450 MPV 10.7 fL 9.0-13.1 RDW 13.9 11.0-16.0 NRBC 0.0 0.0-0.0 Jan 28, 2025 02:20 PM [facility] ALBUMIN PLASMA Specimen Type: PLASM A [...] Jan 17, 2025 09:57 AM Reporting Lab: [address] [address] Performing Lab: [address] [address] ALBUMIN 4.1 g/dL 3.5-5.2 Jan 28, 2025 02:20 PM [facility] PHOSPHORUS PLASMA Specimen Type: PLASM A [...] Jan 17, 2025 09:57 AM Reporting Lab: [address] [address] Performing Lab: [address] [address] PHOSPHORUS 3.5 mg/dL 2.3-4.7 Jan 28, [facility]25 02:[facility] Specimen Type: PLASM [...] Jan 17, 2025 09:57 AM Reporting Lab: [address] [address] Performing Lab: [address] [address] CREATININE 2.55 mg/dL H 0.72-1.25 UREA NITROGEN 38 mg/dL H 9-25 GLUCOSE 91 mg/dL 74-100 SODIUM 142 mmol/L 136-145 POTASSIUM 4.5 mmol/L 3.5-5.1 CHLORIDE 109 mmol/L H 98-107 CO2 25 mmol/L 22-29 CALCIUM 8.8 mg/dL 8.4-10.2 ANION GAP 8 meq/L 3-19 eGFR (CKD-EPI) Jan 11, 2025 09:53 AM [facility] PANEL 1 PLASMA Specimen Type: PLASM A [...] Jan 08, 2025 02:55 PM Reporting Lab: [address] [address] Performing Lab: [address] [address] CREATININE 2.62 mg/dL H 0.72-1.25 UREA NITROGEN 46 mg/dL H 9-25 GLUCOSE 105 mg/dL H 74-100 SODIUM 143 mmol/L 136-145 POTASSIUM 4.7 mmol/L 3.5-5.1 CHLORIDE 107 mmol/L 98-107 CO2 25 mmol/L 22-29 CALCIUM 9.3 mg/dL 8.4-10.2 ANION GAP 11 meq/L 3-19 eGFR (CKD-EPI) 23 Vital Signs: All taken on the encounter date This section contains inpatient and outpatient Vital Signs collected on the date of the Encounter. Date/Time Temperature Pulse Blood Pressure Respiratory Rate SP02 Pain Height Weight Body Mass Index Source Jan 31, 2025 04:41 PM 97.9 F 60 /min 134/66 mm[Hg] 96 % 0 186.2 lb 30 [facility] Social History: Smoking Status (Most current) and [...] 10, 2024 02:00 PM VA-TOBACCO NEVER USED [facility] Tobacco Use History This section includes a history of the smoking, or tobacco-related health factors, that were collected on or before the date of the Encounter. The data comes from the [place] facility where the Encounter took place. Date/Time Smoking Status/Tobacco Use Comment F acility May 19, 2017 03:22 AM NON-TOBACCO USE INPATIENT [facility] Sep 07, 2016 02:41 AM NON-TOBACCO USE INPATIENT [facility] Apr 21, 2004 08:29 AM HF V9 CURRENT NON-SMOKER quit smoking about 30 yrs ago [facility] Sep 06, 2002 02:26 PM HF V9 CURRENT NON-SMOKER QUIT SMOKING ABOUT 31 YRS AGO [facility] Radiology Reports: +/- 30 days [...] the Encounter. The data comes from all [place] treatment facilities. Date/Time Radiology Report Provider Source Jan 28, 2025 01:17 PM VENOUS DUPLEX LOWE R EXT BILAT: ROBBIE HUANG [id number] -[id number] M Exm Date: JAN 28, 2025@13:17 Req Phys: DALIA COBB Pat Loc: [facility] 16-1 (Req'g Loc) Img Loc: [facility] Service: Unknown (Case [id number] COMPLETE) VENOUS DUPLEX LOWER EXT BILAT (VAS Detailed) CPT:85196 Reason for Study: SEE CLINICAL HISTORY Clinical History: Venous Duplex for Valvular Competence/Venous Insufficiency: Chronic venous insufficiency Report Status: Verified Date Reported: JAN 29, 2025 Date Verified: JAN 29, 2025 School Counsellor E-Sig: Report: EXAM: VENOUS DUPLEX EXAM OF [...] Staff: NICOLASA FLORES, ATTENDING PHYSICIAN Verified by glass driller for NICOLASA FLORES /NICOLASA SOMMER [facility] Jan 28, 2025 01:17 PM SEGMENTAL PRESSURE S, LOWER EXT(FLORENCE) UNILAT: ROBBIE HUANG [id number] -[id number] M Exm Date: JAN 28, 2025@13:17 Req Phys: DALIA COBB Pat Loc: [facility] 16-1 (Req'g Loc) Img Loc: [facility] [place] Service: Unknown (Case [id number] COMPLETE) SEGMENTAL PRESSURES, LOWER EXT(AB(VAS Detailed) CPT:88280 Reason for Study: SEE CLINICAL HISTORY Clinical History: FLORENCE's/Segs Indications: Other: BLE edema, r/o PVD for compression tx. Report Status: Verified Date Reported: JAN 29, 2025 Date Verified: JAN 29, 2025 School Counsellor E-Sig: Report: LE segmental pressures TECHNIQUE: Continuous wave Doppler waveforms are obtained from pedal vessels, segmental pressures are measured at rest. Photoplethysmographic waveforms are obtained of the digits with pressure measurement. COMPARISON: No prior FINDINGS: Right: Right brachial arterial pressure is 134 mmHg. Multiphasic waveforms are noted in the right posterior tibial and right dorsalis pedis arteries. ABIs demonstrate calcification with right LINING MAKER 1.44, left DPA 1.28. Right toe pressure is 115 mmHg. Left: Left brachial arterial pressure is 134 mmHg. Multiphasic waveforms are noted in the left posterior tibial and left dorsalis pedis arteries. ABIs demonstrate calcification with right LINING MAKER 1.44, left DPA 1.21. Left toe pressure [...] Staff: NICOLASA FLORES, ATTENDING PHYSICIAN Verified by glass driller for NICOLASA FLORES /NICOLASA SOMMER [facility] Encounter Notes: All associated encounter notes This section contains the clinical notes associated to the Encounter. Date/Time Encounter Note(s) Provider Source Jan 31, 2025 10:32 AM ADMINISTRATIVE NOT E: LOCAL TITLE: CCC: SCHEDULING ADMINISTRATION STANDARD TITLE: ADMINISTRATIVE NOTE DATE OF NOTE: JAN 31, 2025@10:32:14 ENTRY DATE: JAN 31, 2025@10:32:15 AUTHOR: MARLA PORTER EXP COSIGNER: URGENCY: STATUS: COMPLETED Caller Verification Call Back Number: [phone] Emergency Contact: LISS HUANG Emergency Contact Caller/Recipient Relation to Patient: Self Caller Name: ROBBIE HUANG Administrative Administrative Note Reason: Returned Call Administrative Note Comments: is returning a call. Please call back. IMPORTANT: This note was created by [facility] Contact [facility] staff. Please do not alert the staff member by adding them as a signer for future communications. Alerts are not monitored by this user. /es/ MARLA PORTER MSA Signed: 01/31/2025 10:32 Receipt Acknowledged By: 01/31/2025 11:13 /es/ JAIME VICENTE, RN PC SERVICE [employer] FOREMAN [facility]
--- OUTSIDE RECORDS SUMMARY | 2025-01-31 11:00 | XMS_ITS | Encounter Summary ---
Author Name [facility] [facility] [place] [facility] [place] Address [address] [place] [address] Care Team Providers Care Returned Goods Inspector Name Role Phone JORDYN FARHAT Primary Care [...] AUTOM OTIVE - RETI Jul 25, 2018 [id number] MALUTI PERKINS SPOUSE MEDICARE (WNR) MEDICARE (M) PART B Jan 22, 2007 PART B [id number] MALUJUSTYNA TINAJERO RGE PATIENT MEDICARE (WNR) MEDICARE (M) PART A Sep 22, 2005 PART A [id number] MALUJUSTYNA TINAJERO RGE PATIENT FOR LIFE TRICA RE FOR LIFE Jul 25, 2017 FOR LIFE [id number] ROBBIE HUANG JR PATIENT Selected Encounter This section includes the information on record at [place] for the Encounter. Date/Time Encounter Type Encounter Description Reason Provider Source Jan 31, 2025 03:00 PM OFFICE O/P EST HI 40 MIN CARDIOLOGY ICD-10-CM I50.22 Chronic systolic (congestive) heart failure ROB FONTAINE Kal Encounter Template Text not used by [place] Assessments - Encounter Diagnoses This section includes the primary and secondary diagnoses documented for the Encounter. Date/Time Primary/Secondary Diagnosis Diagnosis Name Provider Source Mar 05, 2025 06:31 AM PRIMARY Chronic systolic (congestive) heart failure MANAS LESLIE LEXINGTON-CD D [facility] Mar 05, 2025 06:31 AM SECONDARY Athscl heart disease of [place] coronary artery w/o ang pctrs MANAS LESLIE LEXINGTON-CD D [facility] Mar 05, 2025 06:31 AM SECONDARY Chronic kidney disease, stage 4 (severe) MANAS LESLIE LEXINGTON-CD D [facility] Mar 05, 2025 06:31 AM SECONDARY Hypertensive chronic kidney disease w stg 1-4/unsp chr kdny MANAS LESLIE P [place]-CD D [facility] Mar 05, 2025 06:31 AM SECONDARY Type 2 diabetes mellitus w diabetic chronic kidney disease MANAS LESLIE L[place]INGTON-CD D [facility] Plan of Treatment: Future Appointments (+ 6 months) and Future Tests (+/- 45 days) The Plan of Treatment section includes future care activities for the patient from all [place] treatmentfacilities. This section includes future appointments and future orders which are active, pending or scheduled. Future Appointments This section includes appointments that were scheduled to occur 6 months from the date of the Encounter, up to a maximum of 20 appointments. The data comes from all [place] treatment facilities. Appointment Date/Time Appointment Type Appointme nt Facility Name Feb 05, 2025 01:00 PM AMBULATORY - MEDICINE SHAMIR MARTEL-ISMAEL [facility] Feb 05, 2025 02:00 PM AMBULATORY - MEDICINE SHAMIR TAHMINA-ISMAEL [facility] Feb 07, 2025 01:15 PM [facility] Feb 08, 2025 01:30 PM AMBULATORY - NONE MARI Toro [facility] Mar 04, 2025 01:30 PM AMBULATORY - NONE [facility] [place] [facility] Mar 18, 2025 01:30 PM [facility] [place] [facility] Mar 19, 2025 01:00 PM AMBULATORY - MEDICINE [facility] Apr 11, 2025 02:00 PM AMBULATORY - MEDICINE [facility] Active, Pending, and Scheduled Orders This section includes a listing of several types of active, pending, and scheduled orders, including clinic medications orders, diagnostic test orders, procedure orders and consult orders; where the start date of the order is 45 days before the date of the Encounter or 45 days after the date of theEncounter. The data comes from all [place] treatment facilities. Test Date/Time Test Type Test Details Facility Name Feb 05, 2025 02:21 PM Procedure Order CP PULMONA RY FUNCTION TEST CP PULMONARY FUNCTION TEST Proc Plumbing Assembler Installer's Choice [facility] Mar 15, 2025 12:00 AM Laboratory - Chemi stry Order PTH INTACT ([place]) [id number] [facility] Mar 15, 2025 12:00 AM Laboratory - Chemi stry Order URINALYSIS URINE [facility] Mar 15, 2025 12:00 AM Laboratory - Chemi stry Order CREATININE URINE [facility] Mar 15, 2025 12:00 AM Laboratory - Chemi stry Order TOTAL PROTEIN URINE [facility] Mar 15, 2025 12:00 AM Laboratory - Chemi stry Order PANEL 4 [id number] [facility] Mar 15, 2025 12:00 AM Laboratory - Chemi stry Order 25-OH VITAMIN D [id number] [facility] Lab Results: +/- [...] Jan 28, 2025 02:32 PM [facility] WN CREATININE URINE Specimen Type: URINE No comment entered. Ordering Provider: APARNA KING Report Released Date/Time: Oct 02, 2024 03:22 PM Reporting Lab: [address] [address] Performing Lab: [address] [address] CREATININE 92.7 mg/dL Jan 28, 2025 02:32 PM [facility] TOTAL PROTEIN URINE Specimen Type: URINE No comment entered. Ordering Provider: APARNA KING Report Released Date/Time: Oct 02, 2024 03:22 PM Reporting Lab: [address] [address] Performing Lab: [place] [id number] TOTAL PROTEIN 15 mg/dL H 0-14 Jan 28, 2025 02:32 PM [facility] URINALYSIS URINE Specimen Type: URINE Comment: Microscopic not indicated Ordering Provider: APARNA KING Report Released Date/Time: Oct 02, 2024 03:22 PM Reporting Lab: [address] [address] Performing Lab: [address] [address] URINE COLOR Light Yellow Colorless-Yello w APPEARANCE Clear Clear UROBILINOGEN Normal mg/dL Normal URINE BLOOD Negative Negative URINE BILIRUBIN Negative Negative URINE KETONES Negative mg/dL Negative URINE PROTEIN Negative mg/dL Negative-Tr rachell URINE PH 5.5 4.5-8.0 URINE NITRITE Negative Negative URINE LEUKOCYTE EST Negative Negative SPECIFIC GRAVITY 1.019 1.005-1.030 URINE GLUCOSE >1000 mg/dL H Negative Jan 28, 2025 02:21 PM [facility] PTH INTACT ([place]) PLASMA Spe cimen [...] Oct 02, 2024 03:22 PM Reporting Lab: [place] [id number] Performing Lab: [place] [address] PTH INTACT ([place]ALL) 130.0 pg/mL H 8.7-77.1 Jan 28, 2025 02:21 PM [facility] 25-OH VITAMIN D SERUM Specime n [...] Oct 02, 2024 03:22 PM Reporting Lab: [place] [id number] Performing Lab: [place] [address] 25-OH VITAMIN D 40.7 ng/mL 20.0-50.0 Jan 28, 2025 02:21 PM [facility] CBC/PLT BLOOD Specimen Type: BLOOD No comment entered. Ordering Provider: APARNA KING Report Released Date/Time: Oct 02, 2024 03:22 PM Reporting Lab: [place] [id number] Performing Lab: [place] [address] WBC 6.5 10*3/uL 5.0-10.0 RBC 4.18 10*6/uL L 4.6-6.2 HGB 12.4 g/dL L 14.0-18.0 HCT 39.2 L 42.0-52.0 MCV 93.8 fL 80.0-94.0 MCH 29.7 pg 27.0-31.0 MCHC 31.6 g/dL L 32.0-36.0 PLT 212 10*3/uL 150-450 MPV 10.7 fL 9.0-13.1 RDW 13.9 11.0-16.0 NRBC 0.0 0.0-0.0 Jan 28, 2025 02:20 PM [facility] PHOSPHORUS PLASMA Specimen Type: PLASM A [...] Jan 17, 2025 09:57 AM Reporting Lab: [address] [address] Performing Lab: [address] [address] PHOSPHORUS 3.5 mg/dL 2.3-4.7 Jan 28, 2025 02:20 PM [facility] ALBUMIN PLASMA Specimen Type: PLASM A Comment: [...] Jan 17, 2025 09:57 AM Reporting Lab: [address] [address] Performing Lab: [address] [address] ALBUMIN 4.1 g/dL 3.5-5.2 Jan 28, 2025 [...] Jan 17, 2025 09:57 AM Reporting Lab: [place] [address] [address] Performing Lab: [facility] [address] [facility] [address] CREATININE 2.55 mg/dL H 0.72-1.25 UREA NITROGEN 38 mg/dL H 9-25 GLUCOSE 91 mg/dL 74-100 SODIUM 142 mmol/L 136-145 POTASSIUM 4.5 mmol/L 3.5-5.1 CHLORIDE 109 mmol/L H 98-107 CO2 25 mmol/L 22-29 CALCIUM 8.8 mg/dL 8.4-10.2 ANION GAP 8 meq/L 3-19 eGFR (CKD-EPI) Jan 11, 2025 09:53 AM [facility]MA Specimen Type: PLASM [...] Jan 08, 2025 02:55 PM Reporting Lab: [address] [address] Performing Lab: [address] [address] CREATININE 2.62 mg/dL H 0.72-1.25 UREA NITROGEN [...] 96 % 0 186.2 lb 30 [facility] Social History: Smoking Status (Most current) and [...] DUPLEX LOWE R EXT BILAT: ROBBIE HUANG [id number] -1940 M Exm Date: JAN 28, 2025@13:17 Req Phys: FARHAT BRIGGS Pat Loc: VETO PACT [place] 16-1 (Req'g Loc) Img Loc: VETO VAS LAB [facility] Service: Unknown (Case [id number] COMPLETE) VENOUS DUPLEX LOWER EXT BILAT (VAS Detailed) CPT:62687 Reason for Study: SEE CLINICAL HISTORY Clinical History: Venous Duplex for Valvular Competence/Venous Insufficiency: Chronic venous insufficiency Report Status: Verified Date Reported: JAN 29, 2025 Date Verified: JAN 29, 2025 Library Media Specialist E-Sig: Report: EXAM: VENOUS DUPLEX EXAM OF [...] Staff: NICOLASA FLORES, ATTENDING PHYSICIAN Verified by stock order lister for NICOLASA FLORES /NICOLASA SOMMER [facility] Jan 28, 2025 01:17 PM SEGMENTAL PRESSURE S, LOWER EXT(FLOR[place]) UNILAT: ROBBIE HUANG [id number] -1940 M Exm Date: JAN 28, 2025@13:17 Req Phys: FARHAT BRIGGS Pat Loc: [facility]CT [place] 16-1 (Req'g Loc) Img Loc: VETO VAS LAB [facility] Service: Unknown (Case [id number] COMPLETE) SEGMENTAL PRESSURES, LOWER EXT(AB(VAS Detailed) CPT:24254 Reason for Study: SEE CLINICAL HISTORY Clinical History: FLORENCE's/Segs Indications: Other: BLE edema, r/o PVD for compression tx. Report Status: Verified Date Reported: JAN 29, 2025 Date Verified: JAN 29, 2025 Library Media Specialist E-Sig: Report: LE segmental pressures TECHNIQUE: Continuous wave Doppler waveforms are obtained from pedal vessels, segmental pressures are measured at rest. Photoplethysmographic waveforms are obtained of the digits with pressure measurement. COMPARISON: No prior FINDINGS: Right: Right brachial arterial pressure is 134 mmHg. Multiphasic waveforms are noted in the right posterior tibial and right dorsalis pedis arteries. ABIs demonstrate calcification with right ACTIVITY THERAPY TEACHER 1.44, left DPA 1.28. Right toe pressure is 115 mmHg. Left: Left brachial arterial pressure is 134 mmHg. Multiphasic waveforms are noted in the left posterior tibial and left dorsalis pedis arteries. ABIs demonstrate calcification with right ACTIVITY THERAPY TEACHER 1.44, left DPA 1.21. Left toe pressure [...] Staff: NICOLASA FLORES, ATTENDING PHYSICIAN Verified by stock order lister for NICOLASA FLORES /NICOLASA SOMMER [facility] Encounter Notes: All associated encounter notes This section contains the clinical notes associated to the Encounter. Date/Time Encounter Note(s) Provider Source Feb 01, 2025 01:34 PM PRIMARY CARE LETTERS: LOCAL TITLE: PC LETTER STANDARD TITLE: PRIMARY CARE LETTERS DATE OF NOTE: FEB 01, 2025@13:34 ENTRY DATE: FEB 01, 2025@13:34:13 AUTHOR: JAIME STEVE COSIGNER: URGENCY: STATUS: COMPLETED [facility] [address] [place] [address] FEB 01, 2025 13:34 Mr. ROBBIE GARCIA [place] [address] [place] [address] YOUR PCP WOULD LIKE TO INFORM YOU OF THE FOLLOWING: Edema is an expected side effect with amlodipine and mainly issue if eating too much salt in diet (bread, meats, cheese especially) but IS expected especially with full 10mg dose you are on. Did you discuss your fatigue with your seismic survey assistant at your recent appointment? You had abnormal patch holter last year and if has worsened since beta hima added in December, they need to know. You also have multiple underlying conditions that are quite severe that will impact your fatigue like your CKD 4, CHF, ILD. You also have a pulm evaluation of your his ILD next week. If you have any questions or concerns, please call telephone care and leave a message. Toll-free: (with-in [place]) Local: Local or outside [place] After hours: [phone] or FAX: [phone] PHARMACY: Local: Toll-free: AUTOMATED APPOINTMENT LIST: [phone] VETERANS CRISIS LINE: PRESS 1 Confidential help for Veterans and their families With an upgraded [employer] account, you can view these results online in addition to renewing medications, seeing appointments, and communicating with your health care team via secure messaging. Go to [email or web address] for more information and to register for an account. Sincerely, /jack/ JAIME VICENTE, RN PC MANAGER SUPPLY CHAIN PLANNING Patient Record Number [id number] JAIME STEVE-CDD [facility] Jan 31, 2025 04:42 PM NURSING OUTPATIENT NOTE: LOCAL TITLE: [facility]PC MEDICINE CLINIC INTAKE NOTE STANDARD TITLE: NURSING OUTPATIENT NOTE DATE OF NOTE: JAN 31, 2025@16:42 ENTRY DATE: JAN 31, 2025@16:42:28 AUTHOR: LAKSHMI HOPE COSIGNER: URGENCY: STATUS: COMPLETED Reason for visit/chief complaint: B/P: 134/66 (01/31/2025 16:41) P: 60 (01/31/2025 16:41) R: 18 (12/31/2024 11:10) T: 97.9 F [36.6 C] (01/31/2025 16:41) HT: 66 in [167.6 cm] (05/25/2024 13:57) WT: 186.2 lb [84.46 kg] (01/31/2025 16:41) Are you having any pain or recurrent [...] Manual blood pressure taken: No Primary Care classroom paraprofessional notified of elevated BP greater of 140/90: Patient notified rack worker available upon request for any examinations/procedures. The [...] 12/06/24 Expires: 12/06/25 Refills: 1 Status: ACTIVE METOPROLOL SUCCINATE 25MG SA TAB Directions: TAKE ONE TABLET BY MOUTH DAILY FOR HEART FAILURE Quantity: 90 for 90 days Issued: 12/31/24 Filled: 03/21/25 Expires: 01/01/26 Refills: 1 Status: ACTIVE/SUSP No remote medications found. PENDING OUTPATIENT MEDICATONS (LOCAL/REMOTE): EMPAGLIFLOZIN 10MG TAB Directions: TAKE ONE TABLET BY MOUTH EVERY MORNING PROTEINURIA Quantity: 90 Special: TAKE ONE TABLET PO QAM Status: PENDING FUROSEMIDE 20MG TAB Directions: TAKE ONE TABLET BY MOUTH NEEDED FOR FLUID- TAKE IN THE MORNING Quantity: 90 Special: TAKE ONE TABLET PO PRN Status: PENDING No remote medications found. ACTIVE NONVA MEDICATIONS (LOCAL): AMLODIPINE BESYLATE 10MG TAB Directions: 10MG MOUTH DAILY Status: ACTIVE AMOXICILLIN 500MG CAP Directions: 500MG MOUTH THREE TIMES A DAY Status: ACTIVE CHOLECALCIF 25MCG (D3-1,000UNIT) TAB Directions: 1000UNIT MOUTH DAILY Status: ACTIVE CLOPIDOGREL BISULFATE 75MG TAB Directions: 75MG MOUTH DAILY Status: ACTIVE CYANOCOBALAMIN 1000MCG TAB Directions: 1000MCG MOUTH DAILY Status: ACTIVE LEVOCETIRIZINE DIHYDROCHLORIDE 5MG TAB Directions: 5MG MOUTH DAILY Status: ACTIVE MULTIVIT/OPHTH AREDS2/LUTE/ZEAX CAP/TAB Directions: 1 SOFTGEL MOUTH TWICE A DAY AFTER MEALS Status: ACTIVE ROSUVASTATIN TAB Directions: 10MG MOUTH DAILY Status: ACTIVE OUTPATIENT MEDICATIONS (LOCAL)WITHIN 90 DAYS: METOPROLOL SUCCINATE 25MG SA TAB Directions: TAKE ONE TABLET BY MOUTH DAILY FOR HEART FAILURE Quantity: 90 for 90 days Issued: 12/31/24 Filled: 03/21/25 Expires: 01/01/26 Refills: 1 Status: ACTIVE/SUSP DISCONTINUED OUTPATIENT MEDICATIONS (LOCAL) WITHIN 90 DAYS: METOPROLOL SUCCINATE 25MG SA TAB Directions: TAKE ONE TABLET BY MOUTH DAILY FOR HEART FAILURE Quantity: 90 for 90 days Issued: 12/31/24 Filled: 03/21/25 Expires: 01/01/26 Refills: 1 Status: ACTIVE/SUSP AMLODIPINE BESYLATE 5MG TAB Directions: TAKE ONE [...] 08/13/24 Expires: 06/29/25 Refills: 1 Status: DISCONTINUED EMPAGLIFLOZIN 10MG TAB Directions: TAKE ONE TABLET BY MOUTH EVERY MORNING PROTEINURIA Quantity: 90 for 90 days Issued: 12/06/23 Filled: 08/22/24 Expires: 12/06/24 Refills: 0 Status: DISCONTINUED FUROSEMIDE 40MG TAB Directions: TAKE ONE TABLET BY MOUTH DAILY FOR FLUID- TAKE IN THE MORNING Quantity: 90 for 90 days Issued: 12/31/24 Filled: 12/31/24 Expires: 01/01/26 Refills: 2 Status: DISCONTINUED (EDIT) CLINIC MEDICATIONS (LOCAL): No [...] in case of an emergency situation. 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 Will CC them to this note. - Requested more frequent Lasix 20mg PO daily PRN use to achieve euvolemia in the meantime. - Limited to add MRA due to CrCl. - Continue all other medications. - Do not suspect ischemia given negative SPECT MPI from November 2024. #CCD, stable: - [place] Cardiovascular Society Class I. - Severity: Imdthuja-ic-vlchag complicated by ICM. - Sequelae: ICM with HFrEF and an LVEF of 35-40%. - Interventions: PCI to LAD in 2001. Unclear where specifically. - Antianginals: None. No reported angina. Considering metoprolol XL 25mg daily for both CCS and ICM purposes, see below. - Antilipids: Rosuvastatin 10mg QHS. No myalgias reported. Not at LDL goal as of May 2023, when LDL was 80. Could consider switching to atorvastatin given GFR limitations of rosuvastatin. - Antiplatelets: ASA allergy; continue clopidogrel 75mg daily. - RAASi: Indicated but challenging given fluctuating GFR, see below. - Lifestyle: The patient remotely smoked but has been abstinent decades. He has a good diet with sustained weight loss, and he is committed to finding a better execise program but is limited by his LOO due to his volume status, see below. #HFrEF, decompensated: - NYHA Class III; AHA/ACC Stage C; Profile B. - Etiology: ICM. - Most recent TTE: LVEF of 35-40% with normal filling pressures but mild dilatation; RV with mild dilatation with normal systolic function. No significant valvular disease. Last TTE from November 2024 and stable. - Preload: Patient prefers to use PRN dosing of Lasix 20mg. Asked that he take it 2-3 days in a row to achieve euvolemia given his 2+ BLE pitting edema to his knees today. Would like to add ARNI and continue his SGLT2i for added natriuesis as below. - Lipids: Rosuvastatin 10mg QHS. - BB: Continue metoprolol 25mg XL daily. - RAASi: Advanced CKD makes prescription challenging. Will message his filtrose crusher, Dr. Aparna King, about their acceptance of an ARNI. Would start Entresto 24/26mg BID ideally for added afterload control and natriuesis. - Afterload: Needs improved control given symptomatic HFrEF. - SGLT-2i: Continue empagliflozin 10mg daily. No UTIs reported. - MRA: Cannot use given most recent CrCl. - ICD/SUPERVISOR CAR INSTALLATIONS-D: Patient with LVEF of 35% with RBBB and QRS of 170ms. These are less robust indications for ICD or SUPERVISOR CAR INSTALLATIONS, but consideration may need to be made if medical optimization cannot resolve the patient's LOO symptoms. - Advanced Therapies: NI at this time. #HTN, uncontrolled: - Continue amlodipine 10mg daily. - See above regarding RAASi. #CKD, Stage IV: - Patient's advanced degree of chronic kidney disease warrants Nephrology ongoing management, especially given concurrent HFrEF and future risk of cardiorenal injury coupled with need for potentially nephrotoxic medications (or at least ones subject to renal clearance). - Reinforce avoidance of OTC nephrotoxins, such as NSAIDs. - Will message them about ARNI as above. Follow Up: RTC in three months with Dr. Leslie to adjust medications and assess symptomatic improvement with more frequent loop diuresis. Total time spent on visit today including reviewing history, performing an exam and evaluation, documenting in EHR, interpreting results, counseling patient,and care coordination: 45 minutes. ICD-10 Diagnoses: Chronic Systolic (Congestive) Heart Failure (ICD-10-CM I50.22) (Primary) Coronary artery disease (SCT 75269320) - Atherosclerotic heart disease of [place] coronary artery without angina pectoris (ICD-10-CM I25.10) Benign hypertensive renal disease (SCT 742717) - Hypertensive chronic kidney disease with stage 1 through stage 4 chronic kidney disease, or unspecified chronic kidney disease (ICD-10-CM I12.9) Chronic kidney disease stage 4 due to type 2 diabetes mellitus (RUST [id number]) - Type 2 diabetes mellitus with diabetic chronic kidney disease (ICD-10-CM E11.22) Chronic kidney disease stage 4 due to type 2 diabetes mellitus (RUST [id number]) - Chronic kidney disease, stage 4 (severe) (ICD-10-CM N18.4) HPI: ROBBIE HUANG JR is a 84 year-old MALE with a past medical history as listed above who presents today for cardiology follow up. He was last seen in our clinic on 05/26/2023. At that time, he was meant to have his GDMT adjusted given compensated HFrEF. The patient is feeling much better after his discharge. He has been taking Lasix 20mg daily rather than 40 mg because he worries about it hurting my kidneys . He will noted fluid in his ankles acros sthe day that every once in a while will get to my calves . He'll take 20mg with this, and everything will be fine . He is taking the Lasix maybe once per week . He had his MO in 2001. He is worried about using water pills often. He estimates that he could walk half of a mile. He will walk three flights of stairs daily. His blood pressures will be largely in the 120s at home. Weight has been stable. He has not had any UTIs. He has never been hospitalized for his heart failure like this past December. ROS: Reviewed and negative except as listed [...] 8. Overweight 9. Hearing loss (SNOMED CT 88445028) 10. Benign hypertensive renal disease 11. Allergic rhinitis (SNOMED CT 70899868) 12. History of rheumatic fever at age 6 13. Family h/o Cancer of GI Tract 14. Coronary artery disease (SNOMED CT 18282573) s/p MO 05/26 (stents) CHF (EF 40-45%) on ECHO 07/03/07 no reversible defect on stress test 05/31 15. Pure hypercholesterolemia PSHx: Reviewed and unchanged from previous unless otherwise specified in the A&P. Social Hx: Reviewed and unchanged from previous unless otherwise specified in the A&P. Family Hx: Reviewed and unchanged from previous unless otherwise specified in the A&P. Medications: Active Outpatient Medications (including Supplies): Active Outpatient [...] ACTIVE Indication: FOR CHOLESTEROL 11 Total Medications Allergies/Adverse Reactions: ASPIRIN, ATORVASTATIN Physical Exam: Vitals: TEMP: 98.2 F [36.8 C] (12/31/2024 11:10) PULSE:54 (01/11/2025 11:04) BP: 124/65 (01/11/2025 11:04) RESP: 18 (12/31/2024 11:10) Pulse Ox: DEC 31, 2024@13:16:08 -- PULSE OXIMETRY: 94 DEC 31, 2024@13:16:08 -- PULSE OXIMETRY: 94 via ROOM AIR) WT: 179.1 lb [81.24 kg] (12/31/2024 10:59) Gen: A&Ox3, NAD HEENT: NC/AT; MMM. Neck: Supple without apparent JVD. Pulm: Normal WOB, CTA bilaterally with no wheezes or crackles CV: RRR, normal S1/S2, no m/r/g Abd: Soft, NT/ND Extr: Warm to touch, 2+ pitting edema extending to the knees. Neuro: No gross focal deficits, normal speech Psych: Normal affect, answers questions appropriately /es/ Franky Leslie III Cardiovascular Diseases Fellow Signed: 01/31/2025 16:40 /es/ SIMONA FONTAINE Cosigned: 02/02/2025 11:17 Receipt Acknowledged By: * AWAITING SIGNATURE * APARNA KING 02/01/2025 07:45 /es/ Farhat Briggs MD Primary Care Attending 02/01/2025 ADDENDUM STATUS: COMPLETED exited clinic per MD. All medications and treatment plan was discussed with prior to exiting clinic by . to RTC in 3 months with F22 via F2F, order noted in chart. Appt on 04/11/2025. Per provider order/instruction above. If this provider is not available or requires overbook please alert Arresting Gear Operator. Appointment letter to be mailed. /jack/ CHRISTIN NI Registered Nurse Signed: 02/01/2025 08:22 02/14/2025 ADDENDUM STATUS: COMPLETED Patient seen on 01/31/25, not 01/29/25. /jack/ Franky Leslie III Cardiovascular Diseases Fellow Signed: 02/14/2025 15:58 /jack/ SIMONA FONTAINE Cosigned: 02/18/2025 11:51 02/19/2025 ADDENDUM STATUS: COMPLETED Clinic visit 01/31/25. This addendum is to update the note document with incorrect visit date 01/29/25. /jack/ SIMONA FONTAINE Signed: 02/19/2025 12:51 FRANKY LESLIE-ISMAEL [facility]
--- OUTSIDE RECORDS SUMMARY | 2025-02-05 08:30 | XMS_ITS | Encounter Summary ---
Author Name [facility] [place] [facility] [place] Address [address] [place] [address] Care Team Providers Care Manager Respiratory Care Name Role Phone JORDYN DALIA Primary Care [...] AUTOM OTIVE - RETI Jul 25, 2018 [id number] MALUTI PERKINS JORDAN SPOUSE MEDICARE (WNR) MEDICARE (M) PART B Jan 22, 2007 PART B [id number] MALUJUSTYNA TINAJERO RGE PATIENT MEDICARE (WNR) MEDICARE (M) PART A Sep 22, 2005 PART A [id number] MALUJUSTYAN TINAJERO PATIENT FOR LIFE TRICA RE FOR LIFE Jul 25, 2017 FOR LIFE [id number] ROBBIE HUANG JR PATIENT Selected Encounter This section includes the information on record at [place] for the Encounter. Date/Time Encounter Type Encounter Description Reason Pro vider Source Feb 05, 2025 12:30 PM Outpatient Encounter TELEPHONE BY HT STAFF IHE Encounter Template Text not used by [place] Plan of Treatment: Future Appointments (+ 6 [...] 20 appointments. The data comes from all [facility]. Appointment Date/Time Appointment Type Appointme nt Facility Name Feb 07, 2025 01:15 PM AMBULATORY - MEDICINE [facility] Feb 08, 2025 01:30 PM AMBULATORY - NONE [facility] Mar 04, 2025 01:30 PM AMBULATORY - NONE [facility] Mar 18, 2025 01:30 PM AMBULATORY - NONE [facility] Mar 19, 2025 01:00 PM AMBULATORY - MEDICINE [facility] Apr 11, 2025 02:00 PM AMBULATORY - MEDICINE [facility] Active, Pending, and Scheduled Orders This section includes a listing of several types of active, pending, and scheduled orders, including clinic medications orders, diagnostic test orders, procedure orders and consult orders; where the start date of the order is 45 days before the date of the Encounter or 45 days after the date of theEncounter. The data comes from all [facility]. Test Date/Time Test Type Test Details Facility Name Feb 05, 2025 02:21 PM Procedure Order CP PULMONA RY FUNCTION TEST CP PULMONARY FUNCTION TEST Proc Denture Technician's Choice [facility] Mar 15, 2025 12:00 AM Laboratory - Chemi stry Order PTH INTACT ([facility]) [id number] SP [facility] Mar 15, 2025 12:00 AM Laboratory - Chemi stry Order URINALYSIS URINE SP [facility] Mar 15, 2025 12:00 AM Laboratory - Chemi stry Order CREATININE URINE [facility] Mar 15, 2025 12:00 AM Laboratory - Chemi stry Order TOTAL PROTEIN URINE [facility] Mar 15, 2025 12:00 AM Laboratory - Chemi stry Order PANEL 4 [id number] [facility] Mar 15, 2025 12:00 AM Laboratory - Chemi stry Order 25-OH VITAMIN D [id number] [facility] Lab Results: +/- 30 days [...] Unit Interpretation Reference Range Specimen Type Comment Mar 06, 2025 11:30 AM [facility] N BNP ([facility]) PLASMA Specimen Type: PLASMA Comment: BNP results less than or equal to 100 pg/ml are underwriting sales representative of normal values in patients without CHF. BNP results greater than 100 pg/ml are considered abnormal and suggestive of CHF. Higher BNP concentrations in the first 72 hours after Acute Coronary Syndrome are associated with an increased risk of , myocardial infarction and CHF. Ordering Provider: KAMI MCGINNIS Report Released Date/Time: Mar 05, 2025 10:33 PM Reporting Lab: [address] [phone] Performing Lab: [address] [address] BNP ([facility]) 205 pg/mL H 0-100 Mar 06, 2025 11:30 AM [facility] PANEL 1 PLASMA Specimen Type: PLASM [...] Ordering Provider: KAMI MCGINNIS Report Released Date/Time: Mar 05, 2025 10:33 PM Reporting Lab: [address] [phone] Performing Lab: [address] [address] CREATININE 2.98 mg/dL H 0.72-1.25 UREA NITROGEN 48 mg/dL H 9-25 GLUCOSE 101 mg/dL H 74-100 SODIUM 139 mmol/L 136-145 POTASSIUM 4.9 mmol/L 3.5-5.1 CHLORIDE 104 mmol/L 98-107 CO2 25 mmol/L 22-29 CALCIUM 9.0 mg/dL 8.4-10.2 ANION GAP 10 meq/L 3-19 eGFR (CKD-EPI) Jan 28, 2025 02:32 PM [facility] TOTAL PROTEIN URINE Specimen Type: URINE No comment entered. Ordering Provider: APARNA KING Report Released Date/Time: Oct 02, 2024 03:22 PM Reporting Lab: [address] [address] Performing Lab: [address] [address] TOTAL PROTEIN 15 mg/dL H 0-14 Jan 28, 2025 02:32 PM [facility] CREATININE URINE Specimen Type: URINE No comment entered. Ordering Provider: APARNA KING Report Released Date/Time: Oct 02, 2024 03:22 PM Reporting Lab: [address] [address] Performing Lab: [place] [phone] CREATININE 92.7 mg/dL Jan 28, 2025 02:32 PM [facility] URINALYSIS URINE Specimen Type: URINE Comment: Microscopic not indicated Ordering Provider: APARNA KING Report Released Date/Time: Oct 02, 2024 03:22 PM Reporting Lab: [address] [address] Performing Lab: [address] [address] URINE COLOR Light Yellow Colorless-Yello w APPEARANCE [...] Oct 02, 2024 03:22 PM Reporting Lab: [address] [address] Performing Lab: [address] [address] 25-OH VITAMIN D 40.7 ng/mL 20.0-50.0 Jan 28, 2025 02:21 PM [facility] PTH INTACT ([facility]) PLASMA Spe cimen [...] Oct 02, 2024 03:22 PM Reporting Lab: [address] [address] Performing Lab: [address] [address] PTH INTACT ([facility]) 130.0 pg/mL H 8.7-77.1 Jan 28, 2025 02:21 PM [facility] CBC/PLT BLOOD Specimen Type: BLOOD No comment entered. Ordering Provider: APARNA KING Report Released Date/Time: Oct 02, 2024 03:22 PM Reporting Lab: [address] [address] Performing Lab: [address] [address] WBC 6.5 10*3/uL 5.0-10.0 RBC 4.18 10*6/uL L 4.6-6.2 HGB 12.4 g/dL L 14.0-18.0 HCT 39.2 L 42.0-52.0 MCV 93.8 fL 80.0-94.0 MCH 29.7 pg 27.0-31.0 MCHC 31.6 g/dL L 32.0-36.0 PLT 212 10*3/uL 150-450 MPV 10.7 fL 9.0-13.1 RDW 13.9 11.0-16.0 NRBC 0.0 0.0-0.0 Jan 28, 2025 02:20 PM [facility] PHOSPHORUS PLASMA Specimen Type: PLASM A [...] Jan 17, 2025 09:57 AM Reporting Lab: [address] [phone] Performing Lab: [address] [address] PHOSPHORUS 3.5 mg/dL 2.3-4.7 Jan 28, 2025 02:20 PM [facility] ALBUMIN PLASMA Specimen Type: PLASM A [...] Jan 17, 2025 09:57 AM Reporting Lab: [address] [address] Performing Lab: [address] [address] ALBUMIN 4.1 g/dL 3.5-5.2 Jan 28, 2025 02:20 PM [facility] PANEL 1 PLASMA Specimen Type: PLASM A [...] Jan 17, 2025 09:57 AM Reporting Lab: [facility] [address] [facility] [address] Performing Lab: [facility] [address] [facility] [phone] CREATININE 2.55 mg/dL H 0.72-1.25 UREA NITROGEN 38 mg/dL H 9-25 GLUCOSE 91 mg/dL 74-100 SODIUM 142 mmol/L 136-145 POTASSIUM 4.5 mmol/L 3.5-5.1 CHLORIDE 109 mmol/L H 98-107 CO2 25 mmol/L 22-29 CALCIUM 8.8 mg/dL 8.4-10.2 ANION GAP 8 meq/L 3-19 eGFR (CKD-EPI) Jan 11, 2025 09:53 AM [facility] PANEL 1 PLASMA Specimen Type: PLASM A [...] Jan 08, 2025 02:55 PM Reporting Lab: [address] [phone] Performing Lab: [address] [phone] CREATININE 2.62 mg/dL H 0.72-1.25 UREA NITROGEN [...] and tobacco- related health factors from the [place] facility where the Encounter took place. Current Smoking Status This section includes the most current smoking, or tobacco-related health factor, from the [place] facility where the Encounter took place. Date/Time Current Smoking Status Comment Kelechi dial May 25, 2023 01:30 PM VA-TOBACCO FORMER USER [facility] Tobacco Use History This section includes a history of the smoking, or tobacco-related health factors, that were collected on or before the date of the Encounter. The data comes from the [place] facility where the Encounter took place. Date/Time Smoking Status/Tobacco Use Comment F acility May 25, 2023 01:30 PM VA-TOBACCO QUIT 15 YRS OR MORE [facility] Jun 18, 2022 01:30 PM VA-TOBACCO FORMER USER [facility] Jun 18, 2022 01:30 PM VA-TOBACCO QUIT 15 YRS OR MORE [facility] Jun 29, 2021 03:00 PM VA-TOBACCO FORMER USER [facility] Jun 29, 2021 03:00 PM VA-TOBACCO QUIT 15 YRS OR MORE [facility] Jul 28, 2020 09:30 AM VA-TOBACCO FORMER USER [facility] Jul 28, 2020 09:30 AM VA-TOBACCO QUIT 15 YRS OR MORE [facility] Jul 09, 2019 03:25 PM VA-TOBACCO NEVER USED [facility] Aug 24, 2018 02:06 PM VA-TOBACCO FORMER USER [facility] Aug 24, 2018 02:06 PM VA-TOBACCO QUIT 15 YRS OR MORE [facility] Sep 22, 2017 07:57 AM V9 LIFETIME NON-USER OF TOBACCO [facility] December 15, 2015 08:07 AM V9 LIFETIME NON-USER OF TOBACCO [facility] Jun 14, 2014 07:48 AM V9 LIFETIME NON-USER OF TOBACCO [facility] Jun 07, 2013 10:08 AM V9 LIFETIME NON-USER OF TOBACCO [facility] May 29, 2012 10:26 AM V9 LIFETIME NON-USER OF TOBACCO [facility] Nov 22, 2011 02:23 PM V9 LIFETIME NON-USER OF TOBACCO [facility] Oct 23, 2010 09:22 AM V9 QUIT TOBACCO >7 YEARS AGO [facility] May 30, 2007 03:08 PM V9 LIFETIME NON-USER OF TOBACCO [facility] Radiology Reports: +/- 30 days of [...] the Encounter. The data comes from all [facility]. Date/Time Radiology Report Provider Source Jan 28, 2025 01:17 PM VENOUS DUPLEX LOWE R EXT BILAT: ROBBIE HUANG [id number] -1940 M Exm Date: JAN 28, 2025@13:17 Req Phys: DALIA COBB Pat Loc: [facility] PACT [facility] 16-1 (Req'g Loc) Img Loc: VEOT [facility] Service: Unknown (Case [id number] COMPLETE) VENOUS DUPLEX LOWER EXT BILAT (VAS Detailed) CPT:62202 Reason for Study: SEE CLINICAL HISTORY Clinical History: Venous Duplex for Valvular Competence/Venous Insufficiency: Chronic venous insufficiency Report Status: Verified Date Reported: JAN 29, 2025 Date Verified: JAN 29, 2025 Food And Beverage Assistant E-Sig: Report: EXAM: VENOUS DUPLEX EXAM OF [...] Staff: NICOLASA FLORES, ATTENDING PHYSICIAN Verified by asset accountant for NICOLASA FLORES /NICOLASA SOMMER [facility] Jan 28, 2025 01:17 PM SEGMENTAL PRESSURE S, LOWER EXT([place]) UNILAT: ROBBIE HUANG [id number] -1940 M Exm Date: JAN 28, 2025@13:17 Req Phys: DALIA COBB Pat Loc: [facility] PACT [facility] 16-1 (Req'g Loc) Img Loc: [facility] Service: Unknown (Case [id number] COMPLETE) SEGMENTAL PRESSURES, LOWER EXT(AB(VAS Detailed) CPT:24564 Reason for Study: SEE CLINICAL HISTORY Clinical History: [place]'s/Segs Indications: Other: BLE edema, r/o PVD for compression tx. Report Status: Verified Date Reported: JAN 29, 2025 Date Verified: JAN 29, 2025 Food And Beverage Assistant E-Sig: Report: LE segmental pressures TECHNIQUE: Continuous wave Doppler waveforms are obtained from pedal vessels, segmental pressures are measured at rest. Photoplethysmographic waveforms are obtained of the digits with pressure measurement. COMPARISON: No prior FINDINGS: Right: Right brachial arterial pressure is 134 mmHg. Multiphasic waveforms are noted in the right posterior tibial and right dorsalis pedis arteries. ABIs demonstrate calcification with right INDUSTRIAL TRACTOR DRIVER 1.44, left DPA 1.28. Right toe pressure is 115 mmHg. Left: Left brachial arterial pressure is 134 mmHg. Multiphasic waveforms are noted in the left posterior tibial and left dorsalis pedis arteries. ABIs demonstrate calcification with right INDUSTRIAL TRACTOR DRIVER 1.44, left DPA 1.21. Left toe pressure [...] Staff: NICOLASA FLORES, ATTENDING PHYSICIAN Verified by asset accountant for NICOLASA FLORES /NICOLASA SOMMER [facility] Encounter Notes: All associated encounter notes This section contains the clinical notes associated to the Encounter. Date/Time Encounter Note(s) Provider Source Feb 05, 2025 12:30 PM CARE COORDINATION HOME TELEHEALTH NOTE: LOCAL TITLE: HT NOTE STANDARD TITLE: CARE COORDINATION HOME TELEHEALTH NOTE DATE OF NOTE: FEB 05, 2025@12:30 ENTRY DATE: FEB 05, 2025@12:30:57 AUTHOR: GARCIA BRUNNER EXP COSIGNER: URGENCY: STATUS: COMPLETED Attempted to contact regarding CHF check in. No answer. Left HIPAA friendly requesting return call. /jack/ GARCIA BRUNNER, MSN, RN-BC ASSOCIATE EMBALMER/FUNERAL DIRECTOR Signed: 02/05/2025 12:31 GARCIA BRUNNER [facility]
--- OUTSIDE RECORDS SUMMARY | 2025-02-05 09:00 | XMS_ITS | Encounter Summary ---
Author Name [facility] [place] [facility] [place] Address [address] [place] [address] Care Team Providers Care Loan Administrator Name Role Phone DALIA COBB Primary Care [...] Asif's Name Patient's Relationship to Policy Asif [facility] [place] [employer] MEDICARE SECONDARY (NO B EXC) TI AUTOM OTIVE - RETI Jul 25, 2018 [id number] MALUTI PERKINSA SPOUSE MEDICARE (WNR) MEDICARE (M) PART B Jan 22, 2007 PART B [id number] [id number] MALUJUSTYNA TINAJEROE PATIENT MEDICARE (WNR) MEDICARE (M) PART A Sep 22, 2005 PART A [id number] [id number] MALUJUSTYNA TINAJERO PATIENT FOR LIFE TRICA RE FOR LIFE Jul 25, 2017 FOR LIFE [id number] ROBBIE HUANG JR PATIENT Selected Encounter This section includes the information on record at [place] for the Encounter. Date/Time Encounter Type Encounter Description Reason Provider Source Feb 05, 2025 01:00 PM BREATHING CAPACITY TEST PULMONARY FUNCTION ICD-10-CM J84.9 Interstitial pulmonary disease, unspecified Kal [facility] Encounter Template Text not used by [place] Assessments - Encounter Diagnoses This section includes the primary and secondary diagnoses documented for the Encounter. Date/Time Primary/Secondary Diagnosis Diagnosis Name Provider Source Feb 05, 2025 12:33 PM PRIMARY Interstitial pulmonary disease, unspecified NOÉ MCKINNEY [facility] Plan of Treatment: Future Appointments (+ 6 months) and Future Tests (+/- 45 days) The Plan of Treatment section includes future care activities for the patient from all [place] treatmentfacilities. This section includes future appointments and [...] 2025 01:15 PM AMBULATORY - MEDICINE [facility] Feb 08, 2025 01:30 PM AMBULATORY - NONE [facility] Mar 04, 2025 01:30 PM AMBULATORY - NONE [facility] Mar 18, 2025 01:30 PM [facility]ORY - NONE [facility] [facility] Mar 19, 2025 01:00 PM [facility] Apr 11, 2025 02:00 PM [facility] Active, Pending, and Scheduled Orders This [...] FUNCTION TEST CP PULMONARY FUNCTION TEST Proc Peeled Potato Inspector's Choice [facility] Mar 15, 2025 12:00 AM Laboratory - Chemi stry Order PTH INTACT ([facility]) [id number] [facility] Mar 15, 2025 12:00 AM Laboratory - Chemi stry Order URINALYSIS URINE [facility] Mar 15, 2025 12:00 AM Laboratory - Chemi stry Order CREATININE URINE [facility] Mar 15, 2025 12:00 AM Laboratory - Chemi stry Order TOTAL PROTEIN URINE [facility] Mar 15, 2025 12:00 AM Laboratory - Chemi stry Order 25-OH VITAMIN D [id number] [facility] Mar 15, 2025 12:00 AM Laboratory - Chemi stry Order PANEL 4 [id number] [facility] Lab Results: +/- [...] Type Comment Mar 06, 2025 11:30 AM [facility] N BNP ([facility]) PLASMA Specimen Type: PLASMA Comment: BNP results less than or equal to 100 pg/ml are international sales representative of normal values in patients without CHF. BNP results greater than 100 pg/ml are considered abnormal and suggestive of CHF. Higher BNP concentrations in the first 72 hours after Acute Coronary Syndrome are associated with an increased risk of , myocardial infarction and CHF. Ordering Provider: KAMI MCGINNIS Report Released Date/Time: Mar 05, 2025 10:33 PM Reporting Lab: [facility] [address] [facility] [address] Performing Lab: [address] [address] BNP ([facility]) 205 pg/mL H 0-100 Mar 06, 2025 11:30 AM [facility] PANEL 1 PLASMA Specimen Type: PLASM [...] Mar 05, 2025 10:33 PM Reporting Lab: [address] [address] Performing Lab: [address] [address] CREATININE 2.98 mg/dL H 0.72-1.25 UREA NITROGEN 48 mg/dL H 9-25 GLUCOSE 101 mg/dL H 74-100 SODIUM 139 mmol/L 136-145 POTASSIUM 4.9 mmol/L 3.5-5.1 CHLORIDE 104 mmol/L 98-107 CO2 25 mmol/L 22-29 CALCIUM 9.0 mg/dL 8.4-10.2 ANION GAP 10 meq/L 3-19 eGFR (CKD-EPI) 20 Jan 28, 2025 02:32 PM [facility] CREATININE URINE Specimen Type: URINE No comment entered. Ordering Provider: APARNA KING Report Released Date/Time: Oct 02, 2024 03:22 PM Reporting Lab: [place] [id number] Performing Lab: [place] [address] CREATININE 92.7 mg/dL Jan 28, 2025 02:32 PM [facility] TOTAL PROTEIN URINE Specimen Type: URINE No comment entered. Ordering Provider: APARNA KING Report Released Date/Time: Oct 02, 2024 03:22 PM Reporting Lab: [place] [id number] Performing Lab: [place] [id number] TOTAL PROTEIN 15 mg/dL H 0-14 Jan 28, 2025 02:32 PM [facility] URINALYSIS URINE Specimen Type: URINE Comment: Microscopic not indicated Ordering Provider: APARNA KING Report Released Date/Time: Oct 02, 2024 03:22 PM Reporting Lab: [place] [id number] Performing Lab: [place] [id number] URINE COLOR Light Yellow Colorless-Yello w APPEARANCE Clear Clear UROBILINOGEN Normal mg/dL Normal URINE BLOOD Negative Negative URINE BILIRUBIN Negative Negative URINE KETONES Negative mg/dL Negative URINE PROTEIN Negative mg/dL Negative-Tr rachell URINE PH 5.5 4.5-8.0 URINE NITRITE Negative Negative URINE LEUKOCYTE EST Negative Negative SPECIFIC GRAVITY 1.019 1.005-1.030 URINE GLUCOSE >1000 mg/dL H Negative Jan 28, 2025 02:21 PM [facility] 25-OH VITAMIN D SERUM Specime [...] 02, 2024 03:22 PM Reporting Lab: [address] [address] Performing Lab: [place] [id number] 25-OH VITAMIN D 40.7 ng/mL 20.0-50.0 Jan 28, 2025 02:21 PM [facility] PTH INTACT ([facility]) PLASMA Spe [...] 02, 2024 03:22 PM Reporting Lab: [address] [address] Performing Lab: [place] [id number] PTH INTACT ([facility]) 130.0 pg/mL H 8.7-77.1 Jan 28, 2025 02:21 PM [facility] CBC/PLT BLOOD Specimen Type: BLOOD No comment entered. Ordering Provider: APARNA KING Report Released Date/Time: Oct 02, 2024 03:22 PM Reporting Lab: [address] [address] Performing Lab: [place] [id number] WBC 6.5 10*3/uL 5.0-10.0 RBC 4.18 10*6/uL L 4.6-6.2 HGB 12.4 g/dL L 14.0-18.0 HCT 39.2 L 42.0-52.0 MCV 93.8 fL 80.0-94.0 MCH 29.7 pg 27.0-31.0 MCHC 31.6 g/dL L 32.0-36.0 PLT 212 10*3/uL 150-450 MPV 10.7 fL 9.0-13.1 RDW 13.9 11.0-16.0 NRBC 0.0 0.0-0.0 Jan 28, 2025 02:20 PM [facility] PHOSPHORUS PLASMA Specimen Type: PLASM A [...] Jan 17, 2025 09:57 AM Reporting Lab: [facility] [address] [facility] [address] Performing Lab: [place] [id number] [facility] [address] PHOSPHORUS 3.5 mg/dL 2.3-4.7 Jan 28, 2025 02:20 PM [facility] ALBUMIN PLASMA Specimen Type: PLASM A Comment: [...] 17, 2025 09:57 AM Reporting Lab: [address] [address] Performing Lab: [address] [address] ALBUMIN 4.1 g/dL 3.5-5.2 Jan 28, 2025 02:20 PM [facility] PANEL 1 PLASMA Specimen Type: PLASM [...] Jan 17, 2025 09:57 AM Reporting Lab: [facility] [address] [facility] [address] Performing Lab: [facility] [address] [facility] [address] CREATININE 2.55 mg/dL H 0.72-1.25 UREA NITROGEN 38 mg/dL H 9-25 GLUCOSE 91 mg/dL 74-100 SODIUM 142 mmol/L 136-145 POTASSIUM 4.5 mmol/L 3.5-5.1 CHLORIDE 109 mmol/L H 98-107 CO2 25 mmol/L 22-29 CALCIUM 8.8 mg/dL 8.4-10.2 ANION GAP 8 meq/L 3-19 eGFR (CKD-EPI) Jan 11, 2025 09:53 [facility] Specimen Type: PLASM [...] 08, 2025 02:55 PM Reporting Lab: [address] [address] Performing Lab: [address] [address] CREATININE 2.62 mg/dL H 0.72-1.25 UREA NITROGEN [...] Pain Height Weight Body Mass Index Source Feb 05, 2025 01:23 PM 96.7 F 53 /min 128/59 mm[Hg] 98 % 0 185.2 lb 30 PSYCHIATRIC Social History: Smoking Status (Most current) and Tobacco Use (All prior to encounter date) This section includes the most current, and the historical, smoking and tobacco- related health factors from the [place] facility where the Encounter took place. Current Smoking Status This section includes the most current smoking, or tobacco-related health factor, from the [place] facility where the Encounter took place. Date/Time Current Smoking Status Comment Facil itgabriella May 10, 2024 02:00 PM VA-TOBACCO NEVER [...] ABOUT 31 YRS AGO [facility] Radiology Reports: +/- 30 days of [...] DUPLEX LOWE R EXT BILAT: [id number] -1940 M Ex Date: JAN 28, 2025@13:17 Req Phys: DALIA COBB Loc: [facility] 16-1 (Req'g Loc) Img Loc: [facility] Service: Unknown (Case [id number] COMPLETE) VENOUS DUPLEX LOWER EXT BILAT (VAS Detailed) CPT:91560 Reason for Study: SEE CLINICAL HISTORY Clinical History: Venous Duplex for Valvular Competence/Venous Insufficiency: Chronic venous insufficiency Report Status: Verified Date Reported: JAN 29, 2025 Date Verified: JAN 29, 2025 Utilization Management Rn E-Sig: Report: EXAM: VENOUS DUPLEX EXAM OF [...] Staff: NICOLASA FLORES, ATTENDING PHYSICIAN Verified by lens finisher for NICOLASA FLORES /NICOLASA [facility] Jan 28, 2025 01:17 PM SEGMENTAL PRESSURE S, LOWER EXT([place]) UNILAT: ROBBIE HUANG [id number] -1940 M Exm Date: JAN 28, 2025@13:17 Req Phys: DALIA COBB Pat Loc: [facility] 16-1 (Req'g Loc) Img Loc: [facility] Service: Unknown (Case [id number] COMPLETE) SEGMENTAL PRESSURES, LOWER EXT(AB(VAS Detailed) CPT:14019 Reason for Study: SEE CLINICAL HISTORY Clinical History: [place]OR[place]'s/Segs Indications: Other: BLE edema, r/o PVD for compression tx. Report Status: Verified Date Reported: JAN 29, 2025 Date Verified: JAN 29, 2025 Utilization Management Rn E-Sig: Report: LE segmental pressures TECHNIQUE: Continuous wave Doppler waveforms are obtained from pedal vessels, segmental pressures are measured at rest. Photoplethysmographic waveforms are obtained of the digits with pressure measurement. COMPARISON: No prior FINDINGS: Right: Right brachial arterial pressure is 134 mmHg. Multiphasic waveforms are noted in the right posterior tibial and right dorsalis pedis arteries. ABIs demonstrate calcification with right GRAPHIC USER INTERFACE DESIGNER 1.44, left DPA 1.28. Right toe pressure is 115 mmHg. Left: Left brachial arterial pressure is 134 mmHg. Multiphasic waveforms are noted in the left posterior tibial and left dorsalis pedis arteries. ABIs demonstrate calcification with right GRAPHIC USER INTERFACE DESIGNER 1.44, left DPA 1.21. Left toe pressure [...] Staff: NICOLASA FLORES, ATTENDING PHYSICIAN Verified by lens finisher for NICOLASA FLORES /NICOLASA [facility] Encounter Notes: All associated encounter notes This section contains the clinical notes associated to the Encounter. Date/Time Encounter Note(s) Provider Source Feb 05, 2025 12:33 PM RESPIRATORY THERAP Y NOTE: LOCAL TITLE: PULMONARY FUNCTION TEST NOTE STANDARD TITLE: RESPIRATORY THERAPY NOTE DATE OF NOTE: FEB 05, 2025@12:33 ENTRY DATE: FEB 05, 2025@12:33:10 AUTHOR: NOÉ MCKINNEY EXP COSIGNER: URGENCY: STATUS: COMPLETED Time out to ensure correct patient and procedure was performed using the following identifiers: Full SS# as stated by patient and compared to paper CPRS order. Full as stated by patient and compared to paper CPRS order. Test Performed: Spirometry Diagnoses: Interstitial lung disease ([facility] [id number]) - Interstitial pulmonary disease, unspecified (ICD-10-CM J84.9) (Primary) /jack/ NOÉ MCKINNEY Registered Pulmonary Function Tech Signed: 02/05/2025 12:33 NOÉ MCKINNEY-[facility] Feb 05, 2025 12:13 PM PULMONARY NOTE: LOCAL TITLE: CP PULMONARY FUNCTION TEST STANDARD TITLE: PULMONARY NOTE DATE OF NOTE: FEB 05, 2025@12:13 ENTRY DATE: FEB 05, 2025@12:13:11 AUTHOR: KRYSTA DICKEY EXP COSIGNER: URGENCY: STATUS: COMPLETED PROCEDURE SUMMARY CODE: Borderline DATE/TIME PERFORMED: FEB 05, 2025@12:06 Spirometry c/w mild restriction similar to PFT with lung volumes 05/2024. /jack/ KRYSTA DICKEY M.D. ATTENDING PHYSICIAN Signed: 02/05/2025 14:54 KRYSTA DICKEY[facility]
--- OUTSIDE RECORDS SUMMARY | 2025-02-05 10:00 | XMS_ITS | Encounter Summary ---
Author Name [facility] [place] [facility] [place] Address [address] [place] [address] Care Team Providers Care Cold Type Artist Name Role Phone JORDYN DALIA Primary Care [...] AUTOM OTIVE - RETI Jul 25, 2018 [id number] MALUTI PERKINS SPOUSE MEDICARE (WNR) MEDICARE (M) PART B Jan 22, 2007 PART B [id number] MALUJUSTYNA TINAJERO RGE PATIENT MEDICARE (WNR) MEDICARE (M) PART A Sep 22, 2005 PART A [id number] MALUJUSTYNA TINAJERO RGE PATIENT FOR LIFE TRICA RE FOR LIFE Jul 25, 2017 FOR LIFE [id number] ROBBIE HUANG JR PATIENT Selected Encounter This section includes the information on record at [place] for the Encounter. Date/Time Encounter Type Encounter Description Reason Provider Source Feb 05, 2025 02:00 PM OFFICE O/P EST LOW 20 MIN PULMONARY/CHEST ICD-10-CM J84.9 Interstitial pulmonary disease, unspecified GIANLUCA NAIK [place] Encounter Template Text not used by [place] Assessments - Encounter Diagnoses This section includes the primary and secondary diagnoses documented for the Encounter. Date/Time Primary/Secondary Diagnosis Diagnosis Name Provider Source Feb 13, 2025 08:17 AM PRIMARY Interstitial pulmonary disease, unspecified GIANLUCA NAIKISMAEL [facility] Feb 13, 2025 08:17 AM SECONDARY Chronic systolic (congestive) heart failure GIANLUCA NAIKISMAEL [facility] Plan of Treatment: Future Appointments (+ 6 months) and Future Tests (+/- 45 days) The Plan of Treatment section includes future care activities for the patient from [facility] [place] [facility] This section includes future appointments and future orders which are active, pending or scheduled. Future Appointments This section includes appointments that were scheduled to occur 6 months from the date of the Encounter, up to a maximum of 20 appointments. The data comes from all [facility]. Appointment Date/Time Appointment Type Appointme nt Facility Name Feb 07, 2025 01:15 PM AMBULATORY - MEDICINE [facility] Feb 08, 2025 01:30 PM AMBULATORY - NONE [facility] Mar 04, 2025 01:30 PM AMBULATORY - NONE [facility] Mar 18, 2025 01:30 PM AMBULATORY - NONE [facility] Mar 19, 2025 01:00 PM AMBULATORY - MEDICINE [facility] Apr 11, 2025 02:00 PM AMBULATORY - MEDICINE [facility] Active, Pending, and Scheduled Orders This section includes a listing of several types of active, pending, and scheduled orders, including clinic medications orders, diagnostic test orders, procedure orders and consult orders; where the start date of the order is 45 days before the date of the Encounter or 45 days after the date of theEncounter. The data comes from all [facility]. Test Date/Time Test Type Test Details Facility Name Feb 05, 2025 02:21 PM Procedure Order CP PULMONA RY FUNCTION TEST CP PULMONARY FUNCTION TEST Proc Art Tracer's Choice [facility] Mar 15, 2025 12:00 AM Laboratory - Chemi stry Order PTH INTACT ([facility]) [id number] [facility] Mar 15, 2025 12:00 AM Laboratory - Chemi stry Order URINALYSIS URINE [facility] Mar 15, 2025 12:00 AM Laboratory - Chemi stry Order CREATININE URINE [facility] Mar 15, 2025 12:00 AM Laboratory - Chemi stry Order TOTAL PROTEIN URINE [facility] Mar 15, 2025 12:00 AM Laboratory - Chemi stry Order 25-OH VITAMIN D [id number] [facility] Mar 15, 2025 12:00 AM Laboratory - Chemi stry Order PANEL 4 [id number] [facility] Lab Results: +/- [...] Type Comment Mar 06, 2025 11:30 AM [facility] N BNP ([facility]) PLASMA Specimen Type: PLASMA Comment: BNP results less than or equal to 100 pg/ml are patient account representative of normal values in patients without CHF. BNP results greater than 100 pg/ml are considered abnormal and suggestive of CHF. Higher BNP concentrations in the first 72 hours after Acute Coronary Syndrome are associated with an increased risk of , myocardial infarction and CHF. Ordering Provider: KAMI MCGINNIS Report Released Date/Time: Mar 05, 2025 10:33 PM Reporting Lab: [address] [address] Performing Lab: [address] [address] BNP ([facility]) 205 pg/mL H 0-100 Mar 06, 2025 11:30 AM [facility] PANEL 1 PLASMA Specimen Type: PLASM [...] Mar 05, 2025 10:33 PM Reporting Lab: [address] [address] Performing Lab: [address] [address] CREATININE 2.98 mg/dL H 0.72-1.25 UREA NITROGEN 48 mg/dL H 9-25 GLUCOSE 101 mg/dL H 74-100 SODIUM 139 mmol/L 136-145 POTASSIUM 4.9 mmol/L 3.5-5.1 CHLORIDE 104 mmol/L 98-107 CO2 25 mmol/L 22-29 CALCIUM 9.0 mg/dL 8.4-10.2 ANION GAP 10 meq/L 3-19 eGFR (CKD-EPI) 20 Jan 28, 2025 02:32 PM [facility] CREATININE URINE Specimen Type: URINE No comment entered. Ordering Provider: APARNA KING Report Released Date/Time: Oct 02, 2024 03:22 PM Reporting Lab: [place] [phone] Performing Lab: [place] [phone] CREATININE 92.7 mg/dL Jan 28, 2025 02:32 PM [facility] TOTAL PROTEIN URINE Specimen Type: URINE No comment entered. Ordering Provider: APARNA KING Report Released Date/Time: Oct 02, 2024 03:22 PM Reporting Lab: [address] [address] Performing Lab: [place] [phone] TOTAL PROTEIN 15 mg/dL H 0-14 Jan 28, 2025 02:32 PM [facility] URINALYSIS URINE Specimen Type: URINE Comment: Microscopic not indicated Ordering Provider: APARNA KING Report Released Date/Time: Oct 02, 2024 03:22 PM Reporting Lab: [address] [phone] Performing Lab: [place] [phone] URINE COLOR Light Yellow Colorless-Yello w APPEARANCE Clear Clear UROBILINOGEN Normal mg/dL Normal URINE BLOOD Negative Negative URINE BILIRUBIN Negative Negative URINE KETONES Negative mg/dL Negative URINE PROTEIN Negative mg/dL Negative-Tr rachell URINE PH 5.5 4.5-8.0 URINE NITRITE Negative Negative URINE LEUKOCYTE EST Negative Negative SPECIFIC GRAVITY 1.019 1.005-1.030 URINE GLUCOSE >1000 mg/dL H Negative Jan 28, 2025 02:21 PM [facility] 25-OH VITAMIN D SERUM Specime n [...] Oct 02, 2024 03:22 PM Reporting Lab: [place] [phone] Performing Lab: [place] [phone] 25-OH VITAMIN D 40.7 ng/mL 20.0-50.0 Jan 28, 2025 02:21 PM [facility] PTH INTACT ([facility]) PLASMA Spe cimen [...] Oct 02, 2024 03:22 PM Reporting Lab: [place] [phone] Performing Lab: [place] [phone] PTH INTACT ([facility]) 130.0 pg/mL H 8.7-77.1 Jan 28, 2025 02:21 PM [facility] CBC/PLT BLOOD Specimen Type: BLOOD No comment entered. Ordering Provider: APARNA KING Report Released Date/Time: Oct 02, 2024 03:22 PM Reporting Lab: [place] [phone] Performing Lab: [place] [phone] WBC 6.5 10*3/uL 5.0-10.0 RBC 4.18 10*6/uL L 4.6-6.2 HGB 12.4 g/dL L 14.0-18.0 HCT 39.2 L 42.0-52.0 MCV 93.8 fL 80.0-94.0 MCH 29.7 pg 27.0-31.0 MCHC 31.6 g/dL L 32.0-36.0 PLT 212 10*3/uL 150-450 MPV 10.7 fL 9.0-13.1 RDW 13.9 11.0-16.0 NRBC 0.0 0.0-0.0 Jan 28, 2025 02:20 PM [facility] PHOSPHORUS PLASMA Specimen Type: PLASM A [...] Jan 17, 2025 09:57 AM Reporting Lab: [address] [phone] Performing Lab: [address] [phone] PHOSPHORUS 3.5 mg/dL 2.3-4.7 Jan 28, 2025 02:20 PM [facility] ALBUMIN PLASMA Specimen Type: PLASM A Comment: [...] Jan 17, 2025 09:57 AM Reporting Lab: [facility] [address] [phone] Performing Lab: [address] [phone] ALBUMIN 4.1 g/dL 3.5-5.2 Jan 28, 2025 02:20 PM [facility] PANEL 1 PLASMA Specimen Type: [...] Jan 17, 2025 09:57 AM Reporting Lab: [address] [address] Performing Lab: [address] [phone] CREATININE 2.55 mg/dL H 0.72-1.25 UREA NITROGEN 38 mg/dL H 9-25 GLUCOSE 91 mg/dL 74-100 SODIUM 142 mmol/L 136-145 POTASSIUM 4.5 mmol/L 3.5-5.1 CHLORIDE 109 mmol/L H 98-107 CO2 25 mmol/L 22-29 CALCIUM 8.8 mg/dL 8.4-10.2 ANION GAP 8 meq/L 3-19 eGFR (CKD-EPI) Jan 11, 2025 09:53 AM [facility] PANEL 1 PLASMA Specimen Type: [...] Jan 08, 2025 02:55 PM Reporting Lab: [address] [phone] Performing Lab: [address] [phone] CREATININE 2.62 mg/dL H 0.72-1.25 UREA NITROGEN [...] mm[Hg] 98 % 0 185.2 lb 30 [facility] Social History: Smoking Status (Most [...] 10, 2024 02:00 PM VA-TOBACCO NEVER USED [facility] Tobacco Use History This section includes a history of the smoking, or tobacco-related health factors, that were collected on or before the date of the Encounter. The data comes from the [place] facility where the Encounter took place. Date/Time Smoking Status/Tobacco Use Comment F octavia May 19, 2017 03:22 AM NON-TOBACCO USE INPATIENT [facility] Sep 07, 2016 02:41 AM NON-TOBACCO USE INPATIENT [facility] Apr 21, 2004 08:29 AM HF V9 CURRENT NON-SMOKER quit smoking about 30 yrs ago [facility] Sep 06, 2002 02:26 PM HF V9 CURRENT NON-SMOKER QUIT SMOKING ABOUT 31 YRS AGO [facility] Radiology Reports: +/- 30 days of [...] DUPLEX LOWE R EXT BILAT: ROBBIE HUANG [id number] -1940 M Exm Date: JAN 28, 2025@13:17 Req Phys: DALIA COBB Loc: [facility] 16-1 (Req'g Loc) Img Loc: [facility] Service: Unknown (Case [id number] COMPLETE) VENOUS DUPLEX LOWER EXT BILAT (VAS Detailed) CPT:90054 Reason for Study: SEE CLINICAL HISTORY Clinical History: Venous Duplex for Valvular Competence/Venous Insufficiency: Chronic venous insufficiency Report Status: Verified Date Reported: JAN 29, 2025 Date Verified: JAN 29, 2025 B Operator E-Sig: Report: EXAM: VENOUS DUPLEX EXAM [...] Staff: NICOLASA FLORES, ATTENDING PHYSICIAN Verified by documentation writer for NICOLASA FLORES /[facility] Jan 28, 2025 01:17 PM SEGMENTAL PRESSURE S, LOWER EXT(FLORENCE) UNILAT: ROBBIE HUANG [id number] -1940 M Ex Date: JAN 28, 2025@13:17 Req Phys: DALIA COBB Pat Loc: [facility] 16-1 (Req'g Loc) Img Loc: [facility] Service: Unknown (Case [id number] COMPLETE) SEGMENTAL PRESSURES, LOWER EXT(AB(VAS Detailed) CPT:40653 Reason for Study: SEE CLINICAL HISTORY Clinical History: FLORENCE's/Segs Indications: Other: BLE edema, r/o PVD for compression tx. Report Status: Verified Date Reported: JAN 29, 2025 Date Verified: JAN 29, 2025 B Operator E-Sig: Report: LE segmental pressures TECHNIQUE: Continuous wave Doppler waveforms are obtained from pedal vessels, segmental pressures are measured at rest. Photoplethysmographic waveforms are obtained of the digits with pressure measurement. COMPARISON: No prior FINDINGS: Right: Right brachial arterial pressure is 134 mmHg. Multiphasic waveforms are noted in the right posterior tibial and right dorsalis pedis arteries. ABIs demonstrate calcification with right RAISER HELPER 1.44, left DPA 1.28. Right toe pressure is 115 mmHg. Left: Left brachial arterial pressure is 134 mmHg. Multiphasic waveforms are noted in the left posterior tibial and left dorsalis pedis arteries. ABIs demonstrate calcification with right RAISER HELPER 1.44, left DPA 1.21. Left toe pressure [...] Staff: NICOLASA FLORES, ATTENDING PHYSICIAN Verified by documentation writer for NICOLASA FLORES /NICOLASA SOMMER [facility] Encounter Notes: All associated encounter notes This section contains the clinical notes associated to the Encounter. Date/Time Encounter Note(s) Provider Source Feb 05, 2025 01:27 PM NURSING OUTPATIENT NOTE: LOCAL TITLE: [facility] INTAKE NOTE STANDARD TITLE: NURSING OUTPATIENT NOTE DATE OF NOTE: FEB 05, 2025@13:27 ENTRY DATE: FEB 05, 2025@13:27:19 AUTHOR: SONIA TURNER EXP COSIGNER: URGENCY: STATUS: COMPLETED Reason for visit/chief complaint: B/P: 128/59 (02/05/2025 13:23) P: 53 (02/05/2025 13:23) R: 18 (12/31/2024 11:10) T: 96.7 F [35.9 C] (02/05/2025 13:23) HT: 66 in [167.6 cm] (05/25/2024 13:57) WT: 185.2 lb [84.01 kg] (02/05/2025 13:23) Are you having any pain or recurrent pain in the last several weeks/months? 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 The [...] patient Medication Reconciliation ACTIVE OUTPATIENT MEDICATIONS LOCAL/REMOTE FUROSEMIDE 20MG TAB Directions: TAKE ONE TABLET BY MOUTH DAILY NEEDED FOR FLUID TAKE IN THE MORNING Quantity: 90 for 90 days Issued: 01/31/25 Filled: 02/02/25 Expires: 02/01/26 Refills: 2 Status: ACTIVE EMPAGLIFLOZIN 10MG TAB Directions: TAKE ONE TABLET BY MOUTH EVERY MORNING PROTEINURIA Quantity: 90 for 90 days Issued: 01/31/25 Filled: 02/24/25 Expires: 02/01/26 Refills: 1 Status: ACTIVE/SUSP METOPROLOL SUCCINATE 25MG SA TAB Directions: TAKE [...] Status: ACTIVE OUTPATIENT MEDICATIONS (LOCAL)WITHIN 90 DAYS: EMPAGLIFLOZIN 10MG TAB Directions: TAKE ONE TABLET BY MOUTH EVERY MORNING PROTEINURIA Quantity: 90 for 90 days Issued: 01/31/25 Filled: 02/24/25 Expires: 02/01/26 Refills: 1 Status: ACTIVE/SUSP METOPROLOL SUCCINATE 25MG SA TAB Directions: TAKE ONE TABLET BY MOUTH DAILY FOR HEART FAILURE Quantity: 90 for 90 days Issued: 12/31/24 Filled: 03/21/25 Expires: 01/01/26 Refills: 1 Status: ACTIVE/SUSP DISCONTINUED OUTPATIENT MEDICATIONS (LOCAL) WITHIN 90 DAYS: EMPAGLIFLOZIN 10MG TAB Directions: TAKE ONE TABLET BY MOUTH EVERY MORNING PROTEINURIA Quantity: 90 for 90 days Issued: 01/31/25 Filled: 02/24/25 Expires: 02/01/26 Refills: 1 Status: ACTIVE/SUSP METOPROLOL SUCCINATE 25MG SA TAB Directions: TAKE [...] 08/22/24 Expires: 12/06/24 Refills: 0 Status: DISCONTINUED EMPAGLIFLOZIN 10MG TAB Directions: TAKE ONE TABLET BY MOUTH EVERY MORNING PROTEINURIA Quantity: 90 for 90 days Issued: 12/05/24 Filled: 12/06/24 Expires: 12/06/25 Refills: 1 Status: DISCONTINUED FUROSEMIDE 40MG TAB Directions: TAKE [...] case of an emergency situation. Yes /es/ SONIA TURNER LPN Signed: 02/05/2025 13:28 SONIA TURNER-CDD [facility] Feb 05, 2025 12:23 PM PULMONARY ATTENDIN G OUTPATIENT NOTE: LOCAL TITLE: PULMONARY CLINIC ATTENDING PHYSICIAN NOTE STANDARD TITLE: PULMONARY ATTENDING OUTPATIENT NOTE DATE OF NOTE: FEB 05, 2025@12:23 ENTRY DATE: FEB 05, 2025@12:23:29 AUTHOR: GIANLUCA NAIK EXP COSIGNER: URGENCY: STATUS: COMPLETED PULMONARY CLINIC ATTENDING PHYSICIAN NOTE Has ADDENDA Nursing intake note reviewed. HPI: ==== Mr. Robbie Ocampo is a 84-year-old of [place] who is seen in follow up today for management of interstitial lung disease. Since his initial pulmonary clinic visit on 08/07/24, he had done well until early December when he was admitted to [facility] with exacerbation of heart failure. Since discharge from the hospital he has slowly resumed his activities and is now able to walk up to half a mile without getting out of breath. He does not have a daily cough and does not have dizziness or syncope. He does not have GE reflux, constitutional symptoms or symptoms of CTD. He continues to have lower extremity swelling that resolves overnight but denies any other symptoms of heart failure. Past Medical History: 1. History of calculus of kidney 2. Exudative age-related macular degeneration 3. Chronic kidney disease stage 4 4. History of cholecystectomy 5. Hearing loss 6. Allergic rhinitis 7. History of rheumatic fever at age 6 8. Coronary artery disease s/p [place] 05/26 9. CHF (EF 40-45%) 10. Pure hypercholesterolemia Immunizations: COVID-19 (P[employer]), MRNA, LNP-S, * 3 05/20/2021 [employer] 0* COVID-19 ([employer]), MRNA, LNP-S, * 2 08/29/2020 [place]* <C> COVID-19 ([employer]), MRNA, LNP-S, * 1 08/08/2020 [place]* <C> INFLUENZA, HIGH-DOSE, TRIVALENT,* 03/21/2024 [facility]* [id number] (HISTORICAL) 12/15/2015 [facility]* PNEUMOCOCCAL CONJUGATE PCV20, PO* 12/31/2024 [facility]* PNEUMOCOCCAL, UNSPECIFIED FORMUL* 06/01/2007 [facility]* Active Outpatient Medications (including Supplies): Active Outpatient Medications Status 1) EMPAGLIFLOZIN 10MG TAB TAKE ONE TABLET BY MOUTH EVERY ACTIVE (S) MORNING PROTEINURIA 2) FUROSEMIDE 20MG TAB TAKE ONE TABLET BY MOUTH DAILY NEEDED ACTIVE TAKE IN THE MORNING Indication: FOR FLUID 3) METOPROLOL SUCCINATE 25MG SA TAB TAKE ONE TABLET BY MOUTH ACTIVE (S) DAILY Indication: FOR HEART FAILURE Active Non-VA [...] ACTIVE Indication: FOR CHOLESTEROL 11 Total Medications Allergies: ASPIRIN, ATORVASTATIN Social and Family History is unchanged from prior documentation. ROS: ==== A comprehensive 14 point review of systems was negative and non-contributory except as noted in HPI. Examination: Pleasant man in no apparent distress at rest. VITALS: Weight: 185.2lbs T: 96.7F HR: 53/min RR: 18/min BP: 128/59mmHg sPO2: 98% on room air at rest. Lungs: There is fair air entry entry bilaterally with normal vesicular breath sounds. There are fine end-inspiratory bibasilar crackles but no wheezes or rhonchi. Heart: Normal S1 and S2. There is no gallop, rub or murmur. Abdomen: soft and non-tender. There is no organomegaly or ascites. Lymphatics: There is no cervical or supraclavicular adenopathy. Musculoskeletal/joints: No arthritis. Extremities: There is 2+ bipedal pitting edema. There is no clubbing or cyanosis. Nervous system: Alert and oriented. There is no gross motor deficit. Psych: Normal mood and affect. Diagnostic Evaluation: Spirometry done today shows no airflow obstruction. There is mild restriction based on decreased FVC and confirmed by prior lung volumes. FVC and FEV1 have decreased insignificantly compared to rior study from 06/20/24. Echocardiogram on 12/06/24 showed estimated LVEF of 35-40%. RV size and function were normal and RVSP was estimated to be < 25mmHg. Assessment: - Interstitial pulmonary disease - HFrEF Mr. Huang is a 84 year old [place] who is incidentally found to have clinical and radiographic evidence of ILD which has radiographically progressed minimally over six years. 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 - mild restriction on PFTs has remained stable over the past six months. Dr. Fink in Rheumatology has seen the patient and does not feel that he has establisghed CTD but feels that almost waxy appearance to distal fingers with a degree of tautness and loss of wrinkles which can be seen in early sclerodactyly, along with suspicion of mild raynaud's makes limited systemic sclerosis in the differential. Plan: ===== - There is no indication for antiinflammatory or antifibrotic therapy at this time. We will continue to follow serial spirometry every six months for the first two years and then annually thereafter if his FVC remains stable. If he develops symptoms of dyspnea or cough or if there is a significant decline in his FVC, will repeat HRCT scan of chest. - f/iu with Dr. Fink in Rheumatology as scheduled. - management of heart failure per Cardiology recommendations. RTC: six months with spirometry, earlier if needed. I spent 25 minutes, reviewing history, clinical information, pulmonary function test, relevant labs and diagnostic test results in EHR, personally visualizing relevant radiographic examinations of chest, ordering medications, coordinating care with other providers and counseling the patient regarding his diagnosis and treatment plan. Gianluca Naik MD, [facility]. (he / him / his) Staff Physician, Pulmonary and Critical Care Medicine [facility], [facility] // Arelis ROSENBERGB.S. STAFF PHYSICIAN Signed: 02/05/2025 18:07 02/06/2025 ADDENDUM STATUS: COMPLETED All meds/treatment plan discussed with during appt. per MD & voiced understanding of any new med. orders/changes in meds/treatment plan. dismissed from clinic visit per provider upon completion of visit. Appt. to be scheduled & appt. letter mailed to per MD order indication modality of appt. (face to face or VVC or telephone). If provider not available or requires overbook, alert gearcase assembler & pulmonary provider for overbook approval. Future test results auto alerted to once completed for MD to review & notify of results. Order(s) per MD note, see below: - There is no indication for antiinflammatory or antifibrotic therapy at this time. We will continue to follow serial spirometry every six months for the first two years and then annually thereafter if his FVC remains stable. If he develops symptoms of dyspnea or cough or if there is a significant decline in his FVC, will repeat HRCT scan of chest. - f/iu with Dr. Fink in Rheumatology as scheduled. - management of heart failure per Cardiology recommendations. RTC: six months with spirometry, earlier if needed. /jack/ MARITO BOLES Pheresis Specialist Signed: 02/06/2025 09:03 GIANLUCA NAIK-ISMAEL [facility]
--- OUTSIDE RECORDS SUMMARY | 2025-02-07 09:15 | XMS_ITS | Encounter Summary ---
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 Date/Time Encounter Type Encounter Description Reason Provider Source Feb 07, 2025 01:15 PM OFF/OP EST NOVEMBER X REQ PHY/QHP PRIMARY CARE/MEDICINE ICD-10-CM Z71.9 Counseling, unspecified STACI BURGER IHKal Encounter Template Text not used by [place] Assessments - Encounter Diagnoses This section includes the primary and secondary diagnoses documented for the Encounter. Date/Time Primary/Secondary Diagnosis Diagnosis Name Provider Source Feb 28, 2025 01:17 PM PRIMARY Counseling, unspecified STACI BURGER [facility] Plan of Treatment: Future Appointments (+ 6 months) and Future Tests (+/- 45 days) The Plan of Treatment section includes future care activities for the patient from all [place] treatmentfacilities. This section includes future appointments and future orders which are active, pending or scheduled. Future Appointments This section includes appointments that were scheduled to occur 6 months from the date of the Encounter, up to a maximum of 20 appointments. The data comes from all [place] treatment [facility]. Appointment Date/Time Appointment Type Appointme nt Facility Name Feb 08, 2025 01:30 PM AMBULATORY - NONE [facility] Mar 04, 2025 01:30 PM AMBULATORY - NONE [facility] Mar 18, 2025 01:30 PM AMBULATORY - NONE [facility] Mar 19, 2025 01:00 PM [facility]INE [facility] Apr 11, 2025 02:00 PM [...] of theEncounter. The data comes from all [place] treatment [facility]. Test Date/Time Test Type Test Details Facility Name Feb 05, 2025 02:21 PM Procedure Order CP PULMONA RY FUNCTION TEST CP PULMONARY FUNCTION TEST Proc Endocrinologist's Choice [facility] Mar 15, 2025 12:00 AM Laboratory - Chemi stry Order PTH INTACT ([facility]) [id number] [facility] Mar 15, 2025 12:00 AM Laboratory - Chemi stry Order URINALYSIS URINE [facility] Mar 15, 2025 12:00 AM Laboratory - Chemi stry Order CREATININE URINE [facility] Mar 15, 2025 12:00 AM Laboratory - Chemi stry Order TOTAL PROTEIN URINE [facility] Mar 15, 2025 12:00 AM Laboratory - Chemi stry Order PANEL 4 [id number] [facility] Mar 15, 2025 12:00 AM Laboratory - Chemi stry Order 25-OH VITAMIN D [id number] [facility] Lab Results: +/- 30 days of the encounter This section includes the Chemistry and Hematology Lab Results on record with [place] for the patient. Radiology Reports and Pathology Reports are provided separately, in subsequent sections. Lab Results This section contains the Chemistry/Hematology Results that were resulted 30 days before or 30 daysafter the date of the Encounter. Date/Time Source Result Type Result - Unit Interpretation Reference Range Specimen Type Comment Mar 06, 2025 11:30 AM [facility] N BNP ([facility]) PLASMA Specimen Type: PLASMA Comment: BNP results less than or equal to 100 pg/ml are insurance account representative of normal values in patients without CHF. BNP results greater than 100 pg/ml are considered abnormal and suggestive of CHF. Higher BNP concentrations in the first 72 hours after Acute Coronary Syndrome are associated with an increased risk of , myocardial infarction and CHF. Ordering Provider: KAMI MCGINNIS Report Released Date/Time: Mar 05, 2025 10:33 PM Reporting Lab: [address] [address] Performing Lab: [address] [address] BNP ([facility]ALL) 205 pg/mL H 0-100 Mar 06, 2025 11:30 AM [facility] PANEL 1 PLASMA Specimen Type: [...] Mar 05, 2025 10:33 PM Reporting Lab: [address] [address] Performing Lab: [address] [address] CREATININE 2.98 mg/dL H 0.72-1.25 UREA NITROGEN 48 mg/dL H 9-25 GLUCOSE 101 mg/dL H 74-100 SODIUM 139 mmol/L 136-145 POTASSIUM 4.9 mmol/L 3.5-5.1 CHLORIDE 104 mmol/L 98-107 CO2 25 mmol/L 22-29 CALCIUM 9.0 mg/dL 8.4-10.2 ANION GAP 10 meq/L 3-19 eGFR (CKD-EPI) 20 Jan 28, 2025 02:32 PM [facility] CREATININE URINE Specimen Type: URINE No comment entered. Ordering Provider: APARNA KING Report Released Date/Time: Oct 02, 2024 03:22 PM Reporting Lab: [place] [id number] Performing Lab: [place] [phone] CREATININE 92.7 mg/dL Jan 28, 2025 02:32 PM [facility] TOTAL PROTEIN URINE Specimen Type: URINE No comment entered. Ordering Provider: APARNA KING Report Released Date/Time: Oct 02, 2024 03:22 PM Reporting Lab: [place] [phone] Performing Lab: [place] [phone] TOTAL PROTEIN 15 mg/dL H 0-14 Jan 28, 2025 02:32 PM [facility] URINALYSIS URINE Specimen Type: URINE Comment: Microscopic not indicated Ordering Provider: APARNA KING Report Released Date/Time: Oct 02, 2024 03:22 PM Reporting Lab: [address] [address] Performing Lab: [place] [phone] URINE COLOR Light Yellow Colorless-Yello w APPEARANCE Clear Clear UROBILINOGEN Normal mg/dL Normal URINE BLOOD Negative Negative URINE BILIRUBIN Negative Negative URINE KETONES Negative mg/dL Negative URINE PROTEIN Negative mg/dL Negative-Tr rachell URINE PH 5.5 4.5-8.0 URINE NITRITE Negative Negative URINE LEUKOCYTE EST Negative Negative SPECIFIC GRAVITY 1.019 1.005-1.030 URINE GLUCOSE >1000 mg/dL H Negative Jan 28, 2025 02:21 PM [facility] PTH INTACT ([facility]) PLASMA Spe [...] Oct 02, 2024 03:22 PM Reporting Lab: [address] [address] Performing Lab: [place] [phone] PTH INTACT ([facility]ALL) 130.0 pg/mL H 8.7-77.1 Jan 28, 2025 02:21 PM [facility] 25-OH VITAMIN D SERUM Specime [...] Oct 02, 2024 03:22 PM Reporting Lab: [address] [address] Performing Lab: [place] [id number] 25-OH VITAMIN D 40.7 ng/mL 20.0-50.0 Jan 28, 2025 02:21 PM [facility] CBC/PLT BLOOD Specimen Type: BLOOD No comment entered. Ordering Provider: APARNA KING Report Released Date/Time: Oct 02, 2024 03:22 PM Reporting Lab: [address] [address] Performing Lab: [place] [phone] WBC 6.5 10*3/uL 5.0-10.0 RBC 4.18 10*6/uL L 4.6-6.2 HGB 12.4 g/dL L 14.0-18.0 HCT 39.2 L 42.0-52.0 MCV 93.8 fL 80.0-94.0 MCH 29.7 pg 27.0-31.0 MCHC 31.6 g/dL L 32.0-36.0 PLT 212 10*3/uL 150-450 MPV 10.7 fL 9.0-13.1 RDW 13.9 11.0-16.0 NRBC 0.0 0.0-0.0 Jan 28, 2025 02:20 PM [facility] PHOSPHORUS PLASMA Specimen Type: PLASM [...] Jan 17, 2025 09:57 AM Reporting Lab: [facility] [address] [facility] [address] Performing Lab: [address] [address] PHOSPHORUS 3.5 mg/dL 2.3-4.7 Jan 28, 2025 02:20 PM [facility] ALBUMIN PLASMA Specimen Type: PLASM A Comment: [...] Jan 17, 2025 09:57 AM Reporting Lab: [address] [phone] Performing Lab: [address] [address] ALBUMIN 4.1 g/dL 3.5-5.2 Jan 28, 2025 02:20 PM [facility] PANEL 1 PLASMA Specimen Type: PLASM A [...] Jan 17, 2025 09:57 AM Reporting Lab: [address] [address] Performing Lab: [address] [address] CREATININE 2.55 mg/dL H 0.72-1.25 UREA NITROGEN 38 mg/dL H 9-25 GLUCOSE 91 mg/dL 74-100 SODIUM 142 mmol/L 136-145 POTASSIUM 4.5 mmol/L 3.5-5.1 CHLORIDE 109 mmol/L H 98-107 CO2 25 mmol/L 22-29 CALCIUM 8.8 mg/dL 8.4-10.2 ANION GAP 8 meq/L 3-19 eGFR (CKD-EPI) Jan 11, 2025 09:53 AM [facility]ASMA Specimen Type: PLASM [...] Jan 08, 2025 02:55 PM Reporting Lab: [address] [address] Performing Lab: [address] [address] CREATININE 2.62 mg/dL H 0.72-1.25 UREA NITROGEN [...] and tobacco- related health factors from the [facility] where the Encounter took place. Current Smoking Status This section includes the most current smoking, or tobacco-related health factor, from the [place] facility where the Encounter took place. Date/Time Current Smoking Status Comment Kelechi ity May 25, 2023 01:30 PM VA-TOBACCO QUIT 15 YRS OR MORE [facility] Tobacco Use History This section includes a history of the smoking, or tobacco-related health factors, that were collected on or before the date of the Encounter. The data comes from the [place] facility where the Encounter took place. Date/Time Smoking Status/Tobacco Use Comment F acility May 25, 2023 01:30 PM VA-TOBACCO QUIT 15 YRS OR MORE [facility] Jun 18, 2022 01:30 PM VA-TOBACCO FORMER USER [facility] Jun 18, 2022 01:30 PM VA-TOBACCO QUIT 15 YRS OR MORE [facility] Jun 29, 2021 03:00 PM VA-TOBACCO FORMER USER [facility] Jun 29, 2021 03:00 PM VA-TOBACCO QUIT 15 YRS OR MORE [facility] Jul 28, 2020 09:30 AM VA-TOBACCO FORMER USER [facility] Jul 28, 2020 09:30 AM VA-TOBACCO QUIT 15 YRS OR MORE [facility] Jul 09, 2019 03:25 PM VA-TOBACCO NEVER USED [facility] Aug 24, 2018 02:06 PM VA-TOBACCO FORMER USER [facility] Aug 24, 2018 02:06 PM VA-TOBACCO QUIT 15 YRS OR MORE [facility] Sep 22, 2017 07:57 AM V9 LIFETIME NON-USER OF TOBACCO [facility] December 15, 2015 08:07 AM V9 LIFETIME NON-USER OF TOBACCO [facility] Jun 14, 2014 07:48 AM V9 LIFETIME NON-USER OF TOBACCO [facility] Jun 07, 2013 10:08 AM V9 LIFETIME NON-USER OF TOBACCO [facility] May 29, 2012 10:26 AM V9 LIFETIME NON-USER OF TOBACCO [facility] Nov 22, 2011 02:23 PM V9 LIFETIME NON-USER OF TOBACCO [facility] Oct 23, 2010 09:22 AM V9 QUIT TOBACCO >7 YEARS AGO [facility] May 30, 2007 03:08 PM V9 LIFETIME NON-USER OF TOBACCO [facility] Radiology Reports: +/- 30 [...] the Encounter. The data comes from all [facility]] facilities. Date/Time Radiology Report Provider Source Jan 28, 2025 01:17 PM VENOUS DUPLEX LOWE R EXT BILAT: ROBBIE HUANG [id number] -1940 M Exm Date: JAN 28, 2025@13:17 Req Phys: FARHAT BRIGGS Pat Loc: [facility] PACT CHELO 16-1 (Req'g Loc) Img Loc: [facility] Service: Unknown (Case [id number] COMPLETE) VENOUS DUPLEX LOWER EXT BILAT (VAS Detailed) CPT:96723 Reason for Study: SEE CLINICAL HISTORY Clinical History: Venous Duplex for Valvular Competence/Venous Insufficiency: Chronic venous insufficiency Report Status: Verified Date Reported: JAN 29, 2025 Date Verified: JAN 29, 2025 Enamel Burner E-Sig: Report: EXAM: VENOUS DUPLEX EXAM OF [...] Staff: NICOLASA FLORES, ATTENDING PHYSICIAN Verified by optometry assistant for [facility] Jan 28, 2025 01:17 PM SEGMENTAL PRESSURE S, LOWER EXT(FL[place]) UNILAT: ROBBIE HUANG [id number] -1940 M Exm Date: JAN 28, 2025@13:17 Req Phys: FARHAT BRIGGS Pat Loc: [facility] PACT [place] 16-1 (Req'g Loc) Img Loc: [facility] [place] Service: Unknown (Case [id number] COMPLETE) SEGMENTAL PRESSURES, LOWER EXT(AB(VAS Detailed) CPT:54925 Reason for Study: SEE CLINICAL HISTORY Clinical History: FLORENCE's/Segs Indications: Other: BLE edema, r/o PVD for compression tx. Report Status: Verified Date Reported: JAN 29, 2025 Date Verified: JAN 29, 2025 Enamel Burner E-Sig: Report: LE segmental pressures TECHNIQUE: Continuous wave Doppler waveforms are obtained from pedal vessels, segmental pressures are measured at rest. Photoplethysmographic waveforms are obtained of the digits with pressure measurement. COMPARISON: No prior FINDINGS: Right: Right brachial arterial pressure is 134 mmHg. Multiphasic waveforms are noted in the right posterior tibial and right dorsalis pedis arteries. ABIs demonstrate calcification with right MILKING MACHINE MECHANIC 1.44, left DPA 1.28. Right toe pressure is 115 mmHg. Left: Left brachial arterial pressure is 134 mmHg. Multiphasic waveforms are noted in the left posterior tibial and left dorsalis pedis arteries. ABIs demonstrate calcification with right MILKING MACHINE MECHANIC 1.44, left DPA 1.21. Left toe pressure [...] Staff: NICOLASA FLORES, ATTENDING PHYSICIAN Verified by optometry assistant for NICOLASA FLORES /NICOLASA SOMMER [facility] Encounter Notes: All associated encounter notes This section contains the clinical notes associated to the Encounter. Date/Time Encounter Note(s) Provider Source Feb 22, 2025 10:30 AM ADDENDUM: LOCAL TITLE: Addendum STANDARD TITLE: ADDENDUM DATE OF NOTE: FEB 22, 2025@10:30:39 ENTRY DATE: FEB 22, 2025@10:30:40 AUTHOR: FARHAT BRIGGS COSIGNER: URGENCY: STATUS: COMPLETED okay to remeasure if needed however the compression hose are usually challenging to get on and pressure how they work. May need zip or wrap around options if measurement correct. /jack/ Farhat Briggs MD Primary Care Attending Signed: 02/22/2025 10:32 Receipt Acknowledged By: 02/22/2025 13:52 /jack/ STACI BURGER Licensed Practical Nurse === --- Original Document --- 02/07/25 Pc Compression Stocking Measurement: Knee High Compression Stocking Measurements Just above right ankle = 7.25 inches Just above left ankle = 7.25 inches Widest part right calf = 12.75 inches Widest part left calf = 12.25 inches Additionally for Thigh High Compression Stockings Right gluteal fold = inches Left gluteal fold = inches Reinforced the following important considerations with patient: - Apply stockings in the morning before edema develops. - Do not allow stockings to roll or turn down at the top or toe because excess pressure could cause reduced circulation. - Check toes every four hours. If skin temperature and color has changed, or notice numbness, remove stockings immediately, and notify doctor. - Be alert to possible allergic reaction. Laundering the stockings prior to use can reduce the risk of allergic reaction. Remove the stockings at least once per day to bathe and observe skin for irritation and breakdown. - Use warm water and mild soap, wash stockings when soiled. Do not elevate legs while wearing stockings to avoid risk or decreased circulation. - When stockings lose elasticity, it is time to replace them. Yes - [place]/Caregiver verbalized understanding of topics discussed and education provided /jack/ STACI BURGER Licensed Practical Nurse Signed: 02/07/2025 12:44 02/07/2025 ADDENDUM STATUS: COMPLETED prefers open toe compression stockings /jack/ STACI BURGER Licensed Practical Nurse Signed: 02/07/2025 12:50 02/20/2025 ADDENDUM STATUS: COMPLETED fwding to CLIENT SOLUTIONS DIRECTOR that did the compression stocking measurements See note February 07 2025 called stating he received small compression stockings and he needs a size large /es/ DENEEN LION Registered Nurse Signed: 02/20/2025 10:54 Receipt Acknowledged By: 02/22/2025 10:13 /jack/ STACI BURGER Licensed Practical Nurse 02/22/2025 ADDENDUM STATUS: COMPLETED Spoke with regarding compression socks. [place] states that he is unablke to get the compression socks even over his toes. States that he would like to come in to be re-measured to confirm that the size is appropriate fit. /jack/ STACI BURGER Licensed Practical Nurse Signed: 02/22/2025 10:23 Receipt Acknowledged By: 02/22/2025 10:32 /es/ Farhat Briggs MD Primary Care Attending FARHAT BRIGGS [facility] Feb 22, 2025 10:21 AM ADDENDUM: LOCAL TITLE: Addendum STANDARD TITLE: ADDENDUM DATE OF NOTE: FEB 22, 2025@10:21:25 ENTRY DATE: FEB 22, 2025@10:21:26 AUTHOR: STACI BURGER EXP COSIGNER: URGENCY: STATUS: COMPLETED Spoke with regarding compression socks. [place] states that he is unablke to get the compression socks even over his toes. States that he would like to come in to be re-measured to confirm that the size is appropriate fit. /jack/ STACI BURGER Licensed Practical Nurse Signed: 02/22/2025 10:23 Receipt Acknowledged By: 02/22/2025 10:32 /jack/ Farhat Briggs MD Primary Care Attending === --- Original Document --- 02/07/25 Pc Compression Stocking Measurement: Knee High Compression Stocking Measurements Just above right ankle = 7.25 inches Just above left ankle = 7.25 inches Widest part right calf = 12.75 inches Widest part left calf = 12.25 inches Additionally for Thigh High Compression Stockings Right gluteal fold = inches Left gluteal fold = inches Reinforced the following important considerations with patient: - Apply stockings in the morning before edema develops. - Do not allow stockings to roll or turn down at the top or toe because excess pressure could cause reduced circulation. - Check toes every four hours. If skin temperature and color has changed, or notice numbness, remove stockings immediately, and notify doctor. - Be alert to possible allergic reaction. Laundering the stockings prior to use can reduce the risk of allergic reaction. Remove the stockings at least once per day to bathe and observe skin for irritation and breakdown. - Use warm water and mild soap, wash stockings when soiled. Do not elevate legs while wearing stockings to avoid risk or decreased circulation. - When stockings lose elasticity, it is time to replace them. Yes - /Caregiver verbalized understanding of topics discussed and education provided /jack/ STACI BURGER Licensed Practical Nurse Signed: 02/07/2025 12:44 02/07/2025 ADDENDUM STATUS: COMPLETED [place] prefers open toe compression stockings /jack/ STACI BURGER Licensed Practical Nurse Signed: 02/07/2025 12:50 02/20/2025 ADDENDUM STATUS: COMPLETED fwding to [facility] that did the compression stocking measurements See note February 07 2025 [place] called stating he received small compression stockings and he needs a size large /es/ DENEEN LION Registered Nurse Signed: 02/20/2025 10:54 Receipt Acknowledged By: 02/22/2025 10:13 /jack/ STACI BURGER Licensed Practical Nurse 02/22/2025 ADDENDUM STATUS: COMPLETED okay to remeasure if needed however the compression hose are usually challenging to get on and pressure how they work. May need zip or wrap around options if measurement correct. /es/ Farhat Briggs MD Primary Care Attending Signed: 02/22/2025 10:32 Receipt Acknowledged By: * AWAITING SIGNATURE * STACI BURGER [facility] Feb 20, 2025 10:53 AM ADDENDUM: LOCAL TITLE: Addendum STANDARD TITLE: ADDENDUM DATE OF NOTE: FEB 20, 2025@10:53:04 ENTRY DATE: FEB 20, 2025@10:53:04 AUTHOR: DENEEN LION EXP COSIGNER: URGENCY: STATUS: COMPLETED fwding to [facility] that did the compression stocking measurements See note February 07 2025 called stating he received small compression stockings and he needs a size large /jack/ DENEEN LION Registered Nurse Signed: 02/20/2025 10:54 Receipt Acknowledged By: 02/22/2025 10:13 /es/ STACI BURGER Licensed Practical Nurse === --- Original Document --- 02/07/25 Pc Compression Stocking Measurement: Knee High Compression Stocking Measurements Just above right ankle = 7.25 inches Just above left ankle = 7.25 inches Widest part right calf = 12.75 inches Widest part left calf = 12.25 inches Additionally for Thigh High Compression Stockings Right gluteal fold = inches Left gluteal fold = inches Reinforced the following important considerations with patient: - Apply stockings in the morning before edema develops. - Do not allow stockings to roll or turn down at the top or toe because excess pressure could cause reduced circulation. - Check toes every four hours. If skin temperature and color has changed, or notice numbness, remove stockings immediately, and notify doctor. - Be alert to possible allergic reaction. Laundering the stockings prior to use can reduce the risk of allergic reaction. Remove the stockings at least once per day to bathe and observe skin for irritation and breakdown. - Use warm water and mild soap, wash stockings when soiled. Do not elevate legs while wearing stockings to avoid risk or decreased circulation. - When stockings lose elasticity, it is time to replace them. Yes - /Caregiver verbalized understanding of topics discussed and education provided /jack/ STACI BURGER Licensed Practical Nurse Signed: 02/07/2025 12:44 02/07/2025 ADDENDUM STATUS: COMPLETED prefers open toe compression stockings /jack/ STACI BURGER Licensed Practical Nurse Signed: 02/07/2025 12:50 DENEEN LION [facility] Feb 07, 2025 12:39 PM PRIMARY CARE NURSI NG NOTE: LOCAL TITLE: Pc Compression Stocking Measurement STANDARD TITLE: PRIMARY CARE NURSING NOTE DATE OF NOTE: FEB 07, 2025@12:39 ENTRY DATE: FEB 07, 2025@12:39:45 AUTHOR: STACI BURGER EXP COSIGNER: URGENCY: STATUS: COMPLETED Pc Compression Stocking Measurement Has ADDENDA Knee High Compression Stocking Measurements Just above right ankle = 7.25 inches Just above left ankle = 7.25 inches Widest part right calf = 12.75 inches Widest part left calf = 12.25 inches Additionally for Thigh High Compression Stockings Right gluteal fold = inches Left gluteal fold = inches Reinforced the following important considerations with patient: - Apply stockings in the morning before edema develops. - Do not allow stockings to roll or turn down at the top or toe because excess pressure could cause reduced circulation. - Check toes every four hours. If skin temperature and color has changed, or notice numbness, remove stockings immediately, and notify doctor. - Be alert to possible allergic reaction. Laundering the stockings prior to use can reduce the risk of allergic reaction. Remove the stockings at least once per day to bathe and observe skin for irritation and breakdown. - Use warm water and mild soap, wash stockings when soiled. Do not elevate legs while wearing stockings to avoid risk or decreased circulation. - When stockings lose elasticity, it is time to replace them. Yes - [place]/Caregiver verbalized understanding of topics discussed and education provided /jack/ STACI BURGER Licensed Practical Nurse Signed: 02/07/2025 12:44 Receipt Acknowledged By: 02/25/2025 08:32 /es/ TYLER PETERS Advanced Foster Care Therapist 02/07/2025 ADDENDUM STATUS: COMPLETED prefers open toe compression stockings /jack/ STACI BURGER Licensed Practical Nurse Signed: 02/07/2025 12:50 02/20/2025 ADDENDUM STATUS: COMPLETED fwding to CLIENT SOLUTIONS DIRECTOR that did the compression stocking measurements See note February 07 2025 called stating he received small compression stockings and he needs a size large /es/ DENEEN LION Registered Nurse Signed: 02/20/2025 10:54 Receipt Acknowledged By: 02/22/2025 10:13 /jack/ STACI BURGER Licensed Practical Nurse 02/22/2025 ADDENDUM STATUS: COMPLETED Spoke with regarding compression socks. [place] states that he is unablke to get the compression socks even over his toes. States that he would like to come in to be re-measured to confirm that the size is appropriate fit. /jack/ STACI BURGER Licensed Practical Nurse Signed: 02/22/2025 10:23 Receipt Acknowledged By: 02/22/2025 10:32 /es/ Farhat Briggs MD Primary Care Attending 02/22/2025 ADDENDUM STATUS: COMPLETED okay to remeasure if needed however the compression hose are usually challenging to get on and pressure how they work. May need zip or wrap around options if measurement correct. /jack/ Farhat Briggs MD Primary Care Attending Signed: 02/22/2025 10:32 Receipt Acknowledged By: 02/22/2025 13:52 /jack/ STACI BURGER Licensed Practical Nurse STACI BURGER [facility]
--- OUTSIDE RECORDS SUMMARY | 2025-02-08 09:30 | XMS_ITS | Encounter Summary ---
Author Name [facility] [place] [facility] [place] [facility] [facility] [place] Address [address] [place] [address] Care Team Providers Care Sawyer Cork Slabs Name Role Phone JORDYN DALIA Primary Care [...] AUTOM OTIVE - RETI Jul 25, 2018 [id number] TI KAMARA SPOUSE MEDICARE (WNR) MEDICARE (M) PART B Jan 22, 2007 PART B [id number] MALUJUSTYNA TINAJERO RGE PATIENT MEDICARE (WNR) MEDICARE (M) PART A Sep 22, 2005 PART A [id number] [phone] [id number] MALUJUSTYNA TINAJERO PATIENT FOR LIFE TRICA RE FOR LIFE Jul 25, 2017 FOR LIFE [id number] ROBBIE HUANG JR PATIENT Selected Encounter This section includes the information on record at [place] for the Encounter. Date/Time Encounter Type Encounter Description Reason Provider Source Feb 08, 2025 01:30 PM MTMS BY PHARM EST 15 MIN TELEPHONE/ANCILLAR Y ICD-10-CM I50.22 Chronic systolic (congestive) heart failure KAMI MCGINNIS [place] Encounter Template Text not used by [place] Assessments - Encounter Diagnoses This section includes the primary and secondary diagnoses documented for the Encounter. Date/Time Primary/Secondary Diagnosis Diagnosis Name Provider Source Feb 08, 2025 01:30 PM PRIMARY Chronic systolic (congestive) heart failure KAMI MCGINNIS [facility] Plan of Treatment: Future Appointments (+ 6 months) and Future Tests (+/- 45 days) The Plan of Treatment section includes future care activities for the patient from all [place] [facility]. This section includes future appointments and future orders which are active, pending or scheduled. Future Appointments This section includes appointments that were scheduled to occur 6 months from the date of the Encounter, up to a maximum of 20 appointments. The data comes from all [facility]. Appointment Date/Time Appointment Type Appointme nt Facility Name Mar 04, 2025 01:30 PM AMBULATORY - NONE [facility] Mar 18, 2025 01:30 PM AMBULATORY - NONE [facility] Mar 19, 2025 01:00 PM AMBULATORY - MEDICINE [facility] Apr 11, 2025 02:00 PM AMBULATORY - MEDICINE [facility] Active, Pending, and Scheduled Orders This section includes a listing of several types of active, pending, and scheduled orders, including clinic medications orders, diagnostic test orders, procedure orders and consult orders; where the start date of the order is 45 days before the date of the Encounter or 45 days after the date of theEncounter. The data comes from all [facility]. 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 [facility] Mar 15, 2025 12:00 AM Laboratory - Chemi stry Order PTH INTACT ([facility]) [id number] [facility] Mar 15, 2025 12:00 AM Laboratory - Chemi stry Order URINALYSIS URINE [facility] Mar 15, 2025 12:00 AM Laboratory - Chemi stry Order CREATININE URINE [facility] Mar 15, 2025 12:00 AM Laboratory - Chemi stry Order TOTAL PROTEIN URINE [facility] Mar 15, 2025 12:00 AM Laboratory - Chemi stry Order PANEL 4 [id number] [facility] Mar 15, 2025 12:00 AM Laboratory - Chemi stry Order 25-OH VITAMIN D [id number] [facility] Lab Results: +/- 30 days of the [...] Type Comment Mar 06, 2025 11:30 AM [facility] N BNP ([facility]) PLASMA Specimen Type: PLASMA Comment: BNP results less than or equal to 100 pg/ml are instruments sales representative of normal values in patients without CHF. BNP results greater than 100 pg/ml are considered abnormal and suggestive of CHF. Higher BNP concentrations in the first 72 hours after Acute Coronary Syndrome are associated with an increased risk of , myocardial infarction and CHF. Ordering Provider: KAMI MCGINNIS Report Released Date/Time: Mar 05, 2025 10:33 PM Reporting Lab: [address] [phone] Performing Lab: [address] [phone] BNP ([facility]) 205 pg/mL H 0-100 Mar 06, 2025 11:30 AM [facility] PANEL 1 PLASMA [...] Mar 05, 2025 10:33 PM Reporting Lab: [address] [phone] Performing Lab: [address] [address] CREATININE 2.98 mg/dL H 0.72-1.25 UREA NITROGEN 48 mg/dL H 9-25 GLUCOSE 101 mg/dL H 74-100 SODIUM 139 mmol/L 136-145 POTASSIUM 4.9 mmol/L 3.5-5.1 CHLORIDE 104 mmol/L 98-107 CO2 25 mmol/L 22-29 CALCIUM 9.0 mg/dL 8.4-10.2 ANION GAP 10 meq/L 3-19 eGFR (CKD-EPI) 20 Jan 28, 2025 02:32 PM [facility] CREATININE URINE Specimen Type: URINE No comment entered. Ordering Provider: APARNA KING Report Released Date/Time: Oct 02, 2024 03:22 PM Reporting Lab: [place] [id number] Performing Lab: [place] [phone] CREATININE 92.7 mg/dL Jan 28, 2025 02:32 PM [facility] TOTAL PROTEIN URINE Specimen Type: URINE No comment entered. Ordering Provider: APARNA KING Report Released Date/Time: Oct 02, 2024 03:22 PM Reporting Lab: [place] [phone] Performing Lab: [place] [phone] TOTAL PROTEIN 15 mg/dL H 0-14 Jan 28, 2025 02:32 PM [facility] URINALYSIS URINE Specimen Type: URINE Comment: Microscopic not indicated Ordering Provider: APARNA KING Report Released Date/Time: Oct 02, 2024 03:22 PM Reporting Lab: [address] [phone] Performing Lab: [place] [phone] URINE COLOR Light Yellow Colorless-Yello w APPEARANCE Clear Clear UROBILINOGEN Normal mg/dL Normal URINE BLOOD Negative Negative URINE BILIRUBIN Negative Negative URINE KETONES Negative mg/dL Negative URINE PROTEIN Negative mg/dL Negative-Tr rachell URINE PH 5.5 4.5-8.0 URINE NITRITE Negative Negative URINE LEUKOCYTE EST Negative Negative SPECIFIC GRAVITY 1.019 1.005-1.030 URINE GLUCOSE >1000 mg/dL H Negative Jan 28, 2025 02:21 PM [facility] 25-OH VITAMIN D SERUM Specime n [...] Oct 02, 2024 03:22 PM Reporting Lab: [address] [phone] Performing Lab: [address] [address] 25-OH VITAMIN D 40.7 ng/mL 20.0-50.0 Jan 28, 2025 02:21 PM [facility] PTH INTACT ([facility]) PLASMA Spe cimen [...] Oct 02, 2024 03:22 PM Reporting Lab: [address] [phone] Performing Lab: [address] [address] PTH INTACT ([facility]) 130.0 pg/mL H 8.7-77.1 Jan 28, 2025 02:21 PM [facility] CBC/PLT BLOOD Specimen Type: BLOOD No comment entered. Ordering Provider: APARNA KING Report Released Date/Time: Oct 02, 2024 03:22 PM Reporting Lab: [address] [address] Performing Lab: [address] [address] WBC 6.5 10*3/uL 5.0-10.0 RBC 4.18 10*6/uL L 4.6-6.2 HGB 12.4 g/dL L 14.0-18.0 HCT 39.2 L 42.0-52.0 MCV 93.8 fL 80.0-94.0 MCH 29.7 pg 27.0-31.0 MCHC 31.6 g/dL L 32.0-36.0 PLT 212 10*3/uL 150-450 MPV 10.7 fL 9.0-13.1 RDW 13.9 11.0-16.0 NRBC 0.0 0.0-0.0 Jan 28, 2025 02:20 PM [facility] PHOSPHORUS PLASMA Specimen Type: PLASM A [...] Jan 17, 2025 09:57 AM Reporting Lab: [place] [address] Performing Lab: [address] [address] PHOSPHORUS 3.5 mg/dL 2.3-4.7 Jan 28, 2025 02:20 PM [facility] ALBUMIN PLASMA Specimen Type: PLASM A Comment: [...] Jan 17, 2025 09:57 AM Reporting Lab: [facility] [address] [facility] [phone] Performing Lab: [facility] [address] [facility] [address] ALBUMIN 4.1 g/dL 3.5-5.2 Jan 28, 2025 02:20 PM [facility] PAN[facility] 1 PLASMA Specimen Type: PLASM [...] Jan 17, 2025 09:57 AM Reporting Lab: [facility] [address] [place] [phone] Performing Lab: [address] [address] CREATININE 2.55 mg/dL H 0.72-1.25 UREA NITROGEN 38 mg/dL H 9-25 GLUCOSE 91 mg/dL 74-100 SODIUM 142 mmol/L 136-145 POTASSIUM 4.5 mmol/L 3.5-5.1 CHLORIDE 109 mmol/L H 98-107 CO2 25 mmol/L 22-29 CALCIUM 8.8 mg/dL 8.4-10.2 ANION GAP 8 meq/L 3-19 eGFR (CKD-EPI) Jan 11, 2025 09:53 AM [facility] Specimen Type: PLASM [...] Jan 08, 2025 02:55 PM Reporting Lab: [facility] [address] [facility] [phone] Performing Lab: [address] [address] CREATININE 2.62 mg/dL H 0.72-1.25 UREA NITROGEN [...] 10, 2024 02:00 PM VA-TOBACCO NEVER USED [facility] Tobacco Use History This section includes a history of the smoking, or tobacco-related health factors, that were collected on or before the date of the Encounter. The data comes from the [place] facility where the Encounter took place. Date/Time Smoking Status/Tobacco Use Comment Ricardo dudley May 19, 2017 03:22 AM NON-TOBACCO USE INPATIENT [facility] Sep 07, 2016 02:41 AM NON-TOBACCO USE INPATIENT [facility] Apr 21, 2004 08:29 AM HF V9 CURRENT NON-SMOKER quit smoking about 30 yrs ago [facility] Sep 06, 2002 02:26 PM HF V9 CURRENT NON-SMOKER QUIT SMOKING ABOUT 31 YRS AGO [facility] Radiology Reports: +/- 30 days [...] the Encounter. The data comes from all [place] treatment facilities. Date/Time Radiology Report Provider Source Jan 28, 2025 01:17 PM VENOUS DUPLEX LOWE R EXT BILAT: ROBBIE HUANG [id number] -1940 M Exm Date: JAN 28, 2025@13:17 Req Phys: DALIA COBB Loc: [facility] 16-1 (Req'g Loc) Img Loc: [facility] Service: Unknown (Case [id number] COMPLETE) VENOUS DUPLEX LOWER EXT BILAT (VAS Detailed) CPT:71707 Reason for Study: SEE CLINICAL HISTORY Clinical History: Venous Duplex for Valvular Competence/Venous Insufficiency: Chronic venous insufficiency Report Status: Verified Date Reported: JAN 29, 2025 Date Verified: JAN 29, 2025 Sample Washer E-Sig: Report: EXAM: VENOUS DUPLEX EXAM OF [...] Staff: NICOLASA FLORES, ATTENDING PHYSICIAN Verified by exercise planner for NICOLASA FLORES /NICOLASA [facility] Jan 28, 2025 01:17 PM SEGMENTAL PRESSURE S, LOWER EXT(FLORENCE) UNILAT: ROBBIE HUANG [id number] -1940 M Exm Date: JAN 28, 2025@13:17 Req Phys: DALIA COBB Pat Loc: [facility] 16-1 (Req'g Loc) Img Loc: [facility] Service: Unknown (Case [id number] COMPLETE) SEGMENTAL PRESSURES, LOWER EXT(AB(VAS Detailed) CPT:31964 Reason for Study: SEE CLINICAL HISTORY Clinical History: FLORENCE's/Segs Indications: Other: BLE edema, r/o PVD for compression tx. Report Status: Verified Date Reported: JAN 29, 2025 Date Verified: JAN 29, 2025 Sample Washer E-Sig: Report: LE segmental pressures TECHNIQUE: Continuous wave Doppler waveforms are obtained from pedal vessels, segmental pressures are measured at rest. Photoplethysmographic waveforms are obtained of the digits with pressure measurement. COMPARISON: No prior FINDINGS: Right: Right brachial arterial pressure is 134 mmHg. Multiphasic waveforms are noted in the right posterior tibial and right dorsalis pedis arteries. ABIs demonstrate calcification with right SOFTWARE CLERK 1.44, left DPA 1.28. Right toe pressure is 115 mmHg. Left: Left brachial arterial pressure is 134 mmHg. Multiphasic waveforms are noted in the left posterior tibial and left dorsalis pedis arteries. ABIs demonstrate calcification with right SOFTWARE CLERK 1.44, left DPA 1.21. Left toe pressure [...] Staff: NICOLASA FLORES, ATTENDING PHYSICIAN Verified by exercise planner for NICOLASA FLORES /DAVID FLORES,NICOLASA Curran [facility] Encounter Notes: All associated encounter notes This section contains the clinical notes associated to the Encounter. Date/Time Encounter Note(s) Provider Source Feb 08, 2025 01:42 PM PHARMACY TELEPHONE ENCOUNTER NOTE: LOCAL TITLE: CARDIOLOGY PHARMACOTHERAPY TELEPHONE NOTE STANDARD TITLE: PHARMACY TELEPHONE ENCOUNTER NOTE DATE OF NOTE: FEB 08, 2025@13:42 ENTRY DATE: FEB 08, 2025@13:42:30 AUTHOR: KAMI MCGINNIS EXP COSIGNER: URGENCY: STATUS: COMPLETED ROBBIE HUANG JR is an 84 year old WHITE MALE who was contacted via telephone in regards to recent hospitalization with heart failure exacerbation (dc'd 12/31/24). with recent cardiology visit where furosemide PRN dose was changed to 20 mg because concerned about his kidneys and didn't want to take 40 mg. says he is doing alright then says he is feeling a lot better. He reports for the past three days he has been taking the 40 mg furosemide which has made the swelling go almost completely away. He was trying to take 20 mg furosemide which he wasn't responding to. He says he is breathing better and energy is improved. No longer SOA walking up slight incline of driveway. He has been walking about a mile. Current Cardiac Regimen: 1. amlodipine 10 mg daily 2. clopidogrel 75 mg daily 3. empagliflozin 10 mg every morning 4. furosemide 20 mg daily PRN weight gain/fluid 5. metoprolol succinate 25 mg daily 6. rosuvastatin 10 mg daily Medication adherence: organizes his own medications, uses weekly workforce planner taken extra doses or missed doses of medication? ( ) Yes (x) No Previous cardiac medications: carvedilol dc'd 2021, metoprolol tartrate dc'd 2018, ramipril dc'd 2018, simvastatin dc'd 2016, atorvastatin (10 mg) dc'd 2008 due to myalgias Foreseeable Barriers to adherence: enrolled in [facility] (x) Yes ( ) No Does patient have weight scale? (x) Yes ( ) No Does patient have BP cuff? (x) Yes ( ) No Per 01/29/25 Cardiology Consult: ROBBIE HUANG JR is a 84 year-old MALE with a past medical history as listed above who presents today for cardiology follow up. He was last seen in our clinic on 05/26/2023. At that time, he was meant to have his GDMT adjusted given compensated HFrEF. Cardiology Problem List: 1. CCD, stable 2. HFrEF, decompensated 3. HTN, uncontrolled 4. CKD, Stage IV CARDIAC SYMPTOMS: (-) Change in Shortness of Air (SOA) (-) SOA at rest (-) SOA with minimal exertion-walking around house, ADL's (+) SOA with heavy exertion-walking uphill, climbing stairs, etc. Walks, bikes, weights, stretching exercises for at least 30 minutes 5 or more times/wk. 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[employer]), recently started walking again, currently about 1 mile Diet: Breakfast: orange, pear or other fruit, [...] ROBBIE HUANG Disease(s): CHF, Hypertension Date Range: 01/24/2025 - 02/08/2025 [facility] Vitals Report Reading Date Sys/[place] BP-HR Weight 02/08/25 125/69 (11:11) 55 (11:11) 178.6 (11:11) - ate breakfast prior to weighing 02/07/25 120/68 (10:14) 54 (10:14) 177.4 (10:14) 02/06/25 127/66 (09:29) 57 (09:29) 02/05/25 136/65 (22:23) 55 (22:23) 179.6 (09:33) 02/05/25 132/70 (09:33) 50 (09:33) 02/04/25 114/59 (22:10) 56 (22:10) 177.6 (09:55) 02/04/25 132/68 (09:55) 51 (09:55) 02/03/25 127/65 (21:54) 57 (21:54) 178.0 (11:14) 02/03/25 133/68 (11:14) 52 (11:14) 02/02/25 128/68 (21:07) 56 (21:07) 179.4 (09:09) 02/02/25 129/69 (09:09) 53 (09:09) 02/01/25 124/66 (10:39) 54 (10:39) 180.0 (10:40) 01/31/25 140/66 (09:30) 53 (09:30) 180.0 (09:31) 01/30/25 136/71 (21:14) 60 (21:14) 180.0 (09:48) 01/30/25 123/85 (09:46) 55 (09:46) 01/29/25 124/60 (10:06) 56 (10:06) 180.4 (10:07) 01/28/25 137/61 (22:19) 58 (22:19) 179.0 (09:43) 01/28/25 122/66 (09:43) 55 (09:43) 01/27/25 136/73 (11:23) 56 (11:23) 179.8 (11:24) 01/26/25 142/64 (11:57) 54 (11:57) 182.2 (11:58) 01/25/25 124/63 (21:36) 57 (21:36) 178.8 (08:32) 01/25/25 139/69 (08:31) 54 (08:31) 01/24/25 137/65 (21:43) 60 (21:43) 179.2 (09:12) 01/24/25 128/65 (09:11) 57 (09:11) [facility] Average Report Sys/[place] BP-HR Weight Average 130/67 55 179.3 High 142/85 60 182.2 Low 114/59 50 177.4 PREVIOUS ENCOUNTERS Date Range: 01/18/2025 - 01/23/2025 [facility] Vitals [...] 151/76 61 179.0 Low 127/64 50 177.6 Date Range: 01/08/2025 - 01/17/2025 took PRN [...] 57 177.8 Objective: OBJECTIVE FINDINGS: Vitals/Labs: BP: 128/59 (02/05/2025 13:23) Pulse: 53 (02/05/2025 13:23) Weight: 185.2 lb [84.01 kg] (02/05/2025 13:23) BODY MASS INDEX - 30.0 LABS: PANEL 1 Lexy. date GLUCOSE BUN CREAT SODIUM K CHLOR CO2 01/28/25 14:20 91 38 H 2.55 H 142 4.5 109 H 25 01/11/25 09:53 105 H 46 H 2.62 H 143 4.7 107 25 12/31/24 05:00 94 31 H 2.04 H 138 4.4 105 25 M.3 mg/dL (12/30/2024 07:46) Collection DT Specimen [...] visually estimated LVEF is '35-40%'. Reading Physician: Jeo Lambert MD 12/06/2024 01:47 PM Allergies: ASPIRIN, [...] PRN dose of furosemide if needed, will update prescription back to 40 mg tablets, agreeable to take 40 mg PRN - he has realized that 20 mg doesn't provide response - GDMT: RAASi: none due to renal function currently however awaiting nephrology response on whether trial/initiation of sacubitril/valsartan manjula BB: metoprolol succinate 25 mg daily, not at target dose, will titrate as able, but likely limited by HRs SGLT2i: empagliflozin 10 mg every morning, continue MRA: none, will defer due to eGFR <30 ml/min - Monitoring: Weight, BP, HR daily. Discussed with importance of daily weights to help determine diuretic dosing and BP/HR for GDMT. - Education: see below - Medication Plan: Increase furosemide from 20 mg daily PRN to 40 mg daily PRN weight gain/fluid Continue current cardiac regimen: amlodipine 10 mg daily clopidogrel 75 mg daily empagliflozin 10 mg every morning metoprolol succinate 25 mg daily rosuvastatin 10 mg daily - - - - - - - - - - - - - - - - - - - - - - - - - - - - - - - - - - - - - - - - HF Education: - The role exercise plays in improving health was also emphasized (exercise 20 minutes 3 days a week as tolerated). - Reviewed common s/s of HF (weight gain, swelling, SOA, fatigue) - Advised pt to monitor/record BP and HR daily ~2 hours after taking BP medications - Advised pt to monitor/record weights daily upon wakening and after voiding. [place] verbalized understanding and agreed with plan above. Advised to call if questions or concerns prior to next follow up. Time spent on phone with : 18 minutes Follow-up: via telephone ~ 3 weeks (after upcoming leave) Alert to [facility]: Please schedule [facility] PHAR[facility] PHONE visit for 03/04/25 @ [phone]. Thank you PBM PharmD Pharmacotherapy Rem V12: PHARMACIST INTERVENTIONS: HEART FAILURE Medication monitoring, no dosage change required, continue to monitor and assess /jack/ Kami Mcginnis PharmD, [facility] Clinical Jig Grinder - Cardiology Signed: 02/08/2025 14:18 Receipt Acknowledged By: 02/11/2025 11:22 /jack/ KAMI Denis-D [facility]
--- OUTSIDE RECORDS SUMMARY | 2025-02-11 08:25 | XMS_ITS ---
Author Name [facility] [place] [facility] [place] Address [address] [place] [address] Care Team Providers Care Dependency Counselor Name Role Phone DALIA COBB Primary Care [...] AUTOM OTIVE - RETI Jul 25, 2018 [id number] TI KAMARA SPOUSE MEDICARE (WNR) MEDICARE (M) PART B Jan 22, 2007 PART B [id number] JUSTYNA HUANG RGE PATIENT MEDICARE (WNR) MEDICARE (M) PART A Sep 22, 2005 PART A [id number] MALUAT,JUSTYNA RGE PATIENT FOR LIFE TRICA RE FOR LIFE Jul 25, 2017 FOR LIFE [id number] ROBBIE HUANG JR PATIENT Selected Encounter This section includes the information on record at [place] for the Encounter. Date/Time Encounter Type Encounter Description Reason Provider Source Feb 11, 2025 12:25 PM PH1 ASSMT&MGMT NQHP 11-20 TELEPHONE BY STAFF ICD-10-CM I10 Essential (primary) hypertension KEEGAN BRUNNER [place] Encounter Template Text not used by [place] Assessments - Encounter Diagnoses This section includes the primary and secondary diagnoses documented for the Encounter. Date/Time Primary/Secondary Diagnosis Diagnosis Name Provider Source Feb 11, 2025 12:25 PM PRIMARY Essential (primary) hypertension SRINIVASAN BRUNNER [facility] Feb 11, 2025 12:25 PM SECONDARY Chronic systolic (congestive) heart failure SRINIVASAN BRUNNER [facility] Plan of Treatment: Future Appointments (+ 6 months) and Future Tests (+/- 45 days) The Plan of Treatment section includes future care activities for the [facility] This section includes future appointments and future [...] 01:30 PM [facility] Mar 18, 2025 01:30 [facility] Mar 19, 2025 01:00 PM [facility] Apr 11, 2025 02:00 PM AM[facility]ULAT[facility] - MEDICINE [facility] Aug 13, 2025 01:00 PM AMBULATORY - MEDICINE [facility]ON[facility] Active, Pending, and Scheduled Orders This section includes a listing of several types of active, pending, and scheduled orders, including clinic medications orders, diagnostic test orders, procedure orders and consult orders; where the start date of the order is 45 days before the date of the Encounter or 45 days after the date of theEncounter. The data comes from all [place] treatment [facility]. Test Date/Time Test Type Test Details Facility Name Feb 05, 2025 02:21 PM Procedure Order CP PULMONA RY FUNCTION TEST CP PULMONARY FUNCTION TEST Proc [facility] Mar 15, 2025 12:00 AM Laboratory - Chemi stry Order PTH INTACT ([facility]) [id number] [facility] Mar 15, 2025 12:00 AM Laboratory - Chemi stry Order URINALYSIS URINE [facility] Mar 15, 2025 12:00 AM Laboratory - Chemi stry Order CREATININE URINE [facility] Mar 15, 2025 12:00 AM Laboratory - Chemi stry Order PANEL 4 [id number] [facility] Mar 15, 2025 12:00 AM Laboratory - Chemi stry Order 25-OH VITAMIN D [id number] [facility] Mar 15, 2025 12:00 AM Laboratory - Chemi stry Order TOTAL PROTEIN URINE [facility] Lab Results: +/- 30 days of the encounter This section includes the Chemistry and Hematology Lab Results on record with PA for the patient. Radiology Reports and Pathology Reports are provided separately, in subsequent sections. Lab Results This section contains the Chemistry/Hematology Results that were resulted 30 days before or 30 daysafter the date of the Encounter. Date/Time Source Result Type Result - Unit Interpretation Reference Range Specimen Type Comment Mar 06, 2025 11:30 AM [facility] N BNP ([facility]) PLASMA Specimen Type: PLASMA Comment: BNP results less than or equal to 100 pg/ml are financial foundations representative of normal values in patients without CHF. BNP results greater than 100 pg/ml are considered abnormal and suggestive of CHF. Higher BNP concentrations in the first 72 hours after Acute Coronary Syndrome are associated with an increased risk of , myocardial infarction and CHF. Ordering Provider: KAMI MCGINNIS Report Released Date/Time: Mar 05, 2025 10:33 PM Reporting Lab: [address] [address] Performing Lab: [address] [id number] BNP ([facility]) 205 pg/mL H 0-100 Mar 06, 2025 11:30 AM [facility] PANEL 1 PLASMA Specimen Type: PLASM [...] Mar 05, 2025 10:33 PM Reporting Lab: [address] [id number] Performing Lab: [address] [address] CREATININE 2.98 mg/dL H 0.72-1.25 UREA NITROGEN 48 mg/dL H 9-25 GLUCOSE 101 mg/dL H 74-100 SODIUM 139 mmol/L 136-145 POTASSIUM 4.9 mmol/L 3.5-5.1 CHLORIDE 104 mmol/L 98-107 CO2 25 mmol/L 22-29 CALCIUM 9.0 mg/dL 8.4-10.2 ANION GAP 10 meq/L 3-19 eGFR (CKD-EPI) 20 Jan 28, 2025 02:32 PM [facility] CREATININE URINE Specimen Type: URINE No comment entered. Ordering Provider: APARNA KING Report Released Date/Time: Oct 02, 2024 03:22 PM Reporting Lab: [place] [id number] Performing Lab: [place] [id number] CREATININE 92.7 mg/dL Jan 28, 2025 02:32 PM [facility] TOTAL PROTEIN URINE Specimen Type: URINE No comment entered. Ordering Provider: APARNA KING Report Released Date/Time: Oct 02, 2024 03:22 PM Reporting Lab: [place] [id number] Performing Lab: [place] [id number] TOTAL PROTEIN 15 mg/dL H 0-14 Jan 28, 2025 02:32 PM [facility] URINALYSIS URINE Specimen Type: URINE Comment: Microscopic not indicated Ordering Provider: APARNA KING Report Released Date/Time: Oct 02, 2024 03:22 PM Reporting Lab: [place] [id number] Performing Lab: [place] [id number] URINE COLOR Light Yellow Colorless-Yello w APPEARANCE Clear Clear UROBILINOGEN Normal mg/dL Normal URINE BLOOD Negative Negative URINE BILIRUBIN Negative Negative URINE KETONES Negative mg/dL Negative URINE PROTEIN Negative mg/dL Negative-Tr rachell URINE PH 5.5 4.5-8.0 URINE NITRITE Negative Negative URINE LEUKOCYTE EST Negative Negative SPECIFIC GRAVITY 1.019 1.005-1.030 URINE GLUCOSE >1000 mg/dL H Negative Jan 28, 2025 02:21 PM [facility] PTH INTACT ([facility]) PLASMA Spe cimen [...] Oct 02, 2024 03:22 PM Reporting Lab: [place] [id number] Performing Lab: [place] [id number] PTH INTACT ([facility]) 130.0 pg/mL H 8.7-77.1 Jan 28, 2025 02:21 PM [facility] 25-OH VITAMIN D SERUM Specime n [...] Oct 02, 2024 03:22 PM Reporting Lab: [place] [id number] Performing Lab: [place] [id number] 25-OH VITAMIN D 40.7 ng/mL 20.0-50.0 Jan 28, 2025 02:21 PM [facility] CBC/PLT BLOOD Specimen Type: BLOOD No comment entered. Ordering Provider: APARNA KING Report Released Date/Time: Oct 02, 2024 03:22 PM Reporting Lab: [place] [id number] Performing Lab: [place] [id number] WBC 6.5 10*3/uL 5.0-10.0 RBC 4.18 10*6/uL L 4.6-6.2 HGB 12.4 g/dL L 14.0-18.0 HCT 39.2 L 42.0-52.0 MCV 93.8 fL 80.0-94.0 MCH 29.7 pg 27.0-31.0 MCHC 31.6 g/dL L 32.0-36.0 PLT 212 10*3/uL 150-450 MPV 10.7 fL 9.0-13.1 RDW 13.9 11.0-16.0 NRBC 0.0 0.0-0.0 Jan 28, 2025 02:20 PM [facility] ALBUMIN PLASMA Specimen Type: PLASM A [...] Jan 17, 2025 09:57 AM Reporting Lab: [facility] [address] [facility] [id number] Performing Lab: [address] [address] ALBUMIN 4.1 g/dL 3.5-5.2 Jan 28, 2025 02:20 PM [facility] PHOSPHORUS PLASMA Specimen Type: PLASM A Comment: [...] Jan 17, 2025 09:57 AM Reporting Lab: [facility] [address] [place] [id number] Performing Lab: [address] [address] PHOSPHORUS 3.5 mg/dL 2.3-4.7 Jan 28, 2025 02:20 PM [facility] PANEL 1 PLASMA Specimen Type: PLASM [...] 17, 2025 09:57 AM Reporting Lab: [address] [address] Performing Lab: [address] [address] CREATININE 2.55 mg/dL H 0.72-1.25 UREA NITROGEN 38 mg/dL H 9-25 GLUCOSE 91 mg/dL 74-100 SODIUM 142 mmol/L 136-145 POTASSIUM 4.5 mmol/L 3.5-5.1 CHLORIDE 109 mmol/L H 98-107 CO2 25 mmol/L 22-29 CALCIUM 8.8 mg/dL 8.4-10.2 ANION GAP 8 meq/L 3-19 eGFR (CKD-EPI) 24 Social History: Smoking Status (Most current) and Tobacco Use (All prior to encounter date) This section includes the most current, and the historical, smoking and tobacco- related health factors from the [place] facility where the Encounter took place. Current Smoking Status This section includes the most current smoking, or tobacco-related health factor, from the [place] facility where the Encounter took place. Date/Time Current Smoking Status Comment Kelechi dial May 25, 2023 01:30 PM VA-TOBACCO FORMER USER [facility] Tobacco Use History This section includes a history of the smoking, or tobacco-related health factors, that were collected on or before the date of the Encounter. The data comes from the [place] facility where the Encounter took place. Date/Time Smoking Status/Tobacco Use Comment F acility May 25, 2023 01:30 PM VA-TOBACCO QUIT 15 YRS OR MORE [facility] Jun 18, 2022 01:30 PM VA-TOBACCO FORMER USER [facility] Jun 18, 2022 01:30 PM VA-TOBACCO QUIT 15 YRS OR MORE [facility] Jun 29, 2021 03:00 PM VA-TOBACCO FORMER USER [facility] Jun 29, 2021 03:00 PM VA-TOBACCO QUIT 15 YRS OR MORE [facility] Jul 28, 2020 09:30 AM VA-TOBACCO FORMER USER [facility] Jul 28, 2020 09:30 AM VA-TOBACCO QUIT 15 YRS OR MORE [facility] Jul 09, 2019 03:25 PM VA-TOBACCO NEVER USED [facility] Aug 24, 2018 02:06 PM VA-TOBACCO FORMER USER [facility] Aug 24, 2018 02:06 PM VA-TOBACCO QUIT 15 YRS OR MORE [facility] Sep 22, 2017 07:57 AM V9 LIFETIME NON-USER OF TOBACCO [facility] December 15, 2015 08:07 AM V9 LIFETIME NON-USER OF TOBACCO [facility] Jun 14, 2014 07:48 AM V9 LIFETIME NON-USER OF TOBACCO [facility] Jun 07, 2013 10:08 AM V9 LIFETIME NON-USER OF TOBACCO [facility] May 29, 2012 10:26 AM V9 LIFETIME NON-USER OF TOBACCO [facility] Nov 22, 2011 02:23 PM V9 LIFETIME NON-USER OF TOBACCO [facility] Oct 23, 2010 09:22 AM V9 QUIT TOBACCO >7 YEARS AGO [facility] May 30, 2007 03:08 PM V9 LIFETIME NON-USER OF TOBACCO [facility] Radiology Reports: +/- 30 days of [...] the Encounter. The data comes from all [facility]. Date/Time Radiology Report Provider Source Jan 28, 2025 01:17 PM VENOUS DUPLEX LOWE R EXT BILAT: ROBBIE HUANG [id number] -1940 M Exm Date: JAN 28, 2025@13:17 Req Phys: DALIA COBB Pat Loc: [facility] PACT [place] 16-1 (Req'g Loc) Img Loc: [facility] Service: Unknown (Case [id number] COMPLETE) VENOUS DUPLEX LOWER EXT BILAT (VAS Detailed) CPT:41996 Reason for Study: SEE CLINICAL HISTORY Clinical History: Venous Duplex for Valvular Competence/Venous Insufficiency: Chronic venous insufficiency Report Status: Verified Date Reported: JAN 29, 2025 Date Verified: JAN 29, 2025 Photographer Motion Picture E-Sig: Report: EXAM: VENOUS DUPLEX EXAM OF [...] Staff: NICOLASA FLORES, ATTENDING PHYSICIAN Verified by heel cutter for NICOLASA FLORES /NICOLASA [facility] Jan 28, 2025 01:17 PM SEGMENTAL PRESSURE S, LOWER EXT(FLOR[place]) UNILAT: ROBBIE HUANG [id number] -1940 M Exm Date: JAN 28, 2025@13:17 Req Phys: DALIA COBB [facility] Img Loc: [facility] Service: Unknown (Case [id number] COMPLETE) SEGMENTAL PRESSURES, LOWER EXT(AB(VAS Detailed) CPT:47858 Reason for Study: SEE CLINICAL HISTORY Clinical History: FLORENCE's/Segs Indications: Other: BLE edema, r/o PVD for compression tx. Report Status: Verified Date Reported: JAN 29, 2025 Date Verified: JAN 29, 2025 Photographer Motion Picture E-Sig: Report: LE segmental pressures TECHNIQUE: Continuous wave Doppler waveforms are obtained from pedal vessels, segmental pressures are measured at rest. Photoplethysmographic waveforms are obtained of the digits with pressure measurement. COMPARISON: No prior FINDINGS: Right: Right brachial arterial pressure is 134 mmHg. Multiphasic waveforms are noted in the right posterior tibial and right dorsalis pedis arteries. ABIs demonstrate calcification with right [employer]ER 1.44, left DPA 1.28. Right toe pressure is 115 mmHg. Left: Left brachial arterial pressure is 134 mmHg. Multiphasic waveforms are noted in the left posterior tibial and left dorsalis pedis arteries. ABIs demonstrate calcification with right [employer] SOFTWARE ENGINEER 1.44, left DPA 1.21. Left toe pressure [...] Staff: NICOLASA FLORES, ATTENDING PHYSICIAN Verified by heel cutter for NICOLASA FLORES /NICOLASA [facility] Encounter Notes: All associated encounter notes This section contains the clinical notes associated to the Encounter. Date/Time Encounter Note(s) Provider Source Feb 11, 2025 12:25 PM CARE COORDINATION HOME TELEHEALTH FOLLOW-UP NOTE: LOCAL TITLE: HT INTERVENTION NOTE STANDARD TITLE: CARE COORDINATION HOME TELEHEALTH FOLLOW-UP NOTE DATE OF NOTE: FEB 11, 2025@12:25 ENTRY DATE: FEB 11, 2025@12:25:17 AUTHOR: GARCIA BRUNNER COSIGNER: URGENCY: STATUS: COMPLETED HT Admission Date: 04/10/2024 HT Diagnosis: HTN Provider-ordered vital sign goals: SBP<140 DBP <90 HT electronic capture of the blood pressure? Yes HT Emergency classification: L HT Category of Care: LOBO Last completion date: 10/15/24 [place] 3-month average response rate percentage: 97% HT Equipment Assigned: -COGNOSANTE(1VISION) [employer] TAB ACTIVE V2 -BPM 651 BLE WIDE RANGE Transmitting: Cellular modem Lives Alone: No 02: No ========= PROBLEM: Blood pressure not well controlled. GOAL: [...] equipment. 6. HT RN to encourage the [place] to call Home Telehealth for assistance if/when needed to coordinate care. 7. HT RN to submit semiannual/on-request summary reports to the primary care provider. ========= is actively enrolled in the Home Telehealth program. Review of data shows the following out of range responses: Patient Name: ROBBIE HUANG Disease(s): CHF, Hypertension Date Range: 01/28/2025 - 02/11/2025 [place] Vitals Report Reading Date Sys/[place] BP-HR Weight 02/11/25 133/69 (09:46) 57 (09:46) 178.6 (09:46) 02/10/25 136/108 (10:03) 50 (10:03) 178.8 (10:05) 02/09/25 134/63 (22:09) 56 (22:09) 178.4 (10:11) 02/09/25 134/51 (10:11) 52 (10:11) 02/08/25 125/69 (11:11) 55 (11:11) 178.6 (11:11) 02/07/25 120/68 (10:14) 54 (10:14) 177.4 (10:14) [...] 179.0 (09:43) 01/28/25 122/66 (09:43) 55 (09:43) [place] Average Report Sys/[place] BP-HR Weight Average 129/68 55 179.0 High 140/108 60 180.4 Low 114/51 50 177.4 Assessment/Intervention(s )/Plan: Called and spoke with for check in. He stated that he has been doing well. He denies any new concerns at this time. He denies any recent chest pain/pressure, palpitations, headaches, dizziness, weakness, swelling, SOA, etc. He stated that he has not needed his extra diuretic for a few days. He is only taking sparingly. He is currently at the eye dr as he had injections last week and today he woke up with very red eyes. He is not sure if there is a reaction or something. He will call with any new issues or further assistance needed. He appreciated call to check in. Data update above [place] without new concerns other than eye complications from injections (at eye dr now) RN to continue to monitor /es/ GARCIA BRUNNER, MSN, RN-BC FINGER [employer]FF SEWER Signed: 02/12/2025 10:35 GARCIA BRUNNER [facility]
--- OUTSIDE RECORDS SUMMARY | 2025-02-14 10:35 | XMS_ITS | Encounter Summary ---
Author Name [facility] [place] [facility] [place] [facility] [facility] [place] Address [address] [place] [address] Care Team Providers Care Custom Leather Products Maker Name Role Phone DALIA COBB Primary Care [...] AUTOM OTIVE - RETI Jul 25, 2018 [id number] TI KAMARA SPOUSE MEDICARE (WNR) MEDICARE (M) PART B Jan 22, 2007 PART B [id number] JUSTYNA HUANG RGE PATIENT MEDICARE (WNR) MEDICARE (M) PART A Sep 22, 2005 PART A [id number] MALUAT,JUSTYNA RGE PATIENT FOR LIFE TRICA RE FOR LIFE Jul 25, 2017 FOR LIFE [id number] ROBBIE HUANG JR PATIENT Selected Encounter This section includes the information on record at [place] for the Encounter. Date/Time Encounter Type Encounter Description Reason Provider Source Feb 14, 2025 02:35 PM PH1 ASSMT&MGMT NQHP 11-20 TELEPHONE BY HT STAFF ICD-10-CM I50.22 Chronic systolic (congestive) heart failure SRINIVASAN BRUNNER [facility] Encounter Template Text not used by [place] Assessments - Encounter Diagnoses This section includes the primary and secondary diagnoses documented for the Encounter. Date/Time Primary/Secondary Diagnosis Diagnosis Name Provider Source Feb 14, 2025 02:35 PM PRIMARY Chronic systolic (congestive) heart failure SRINIVASAN BRUNNER [facility] Plan of Treatment: Future Appointments (+ 6 months) and Future Tests (+/- 45 days) The Plan of Treatment section includes future care activities for the patient [facility] [place] [facility] This section includes future appointments and future orders which are active, pending or scheduled. Future Appointments This section includes appointments that were scheduled to occur 6 months from the date of the Encounter, up to a maximum of 20 appointments. The data comes from all [facility]. Appointment Date/Time Appointment Type Appointme nt Facility Name Mar 04, 2025 01:30 PM [facility] Mar 18, 2025 01:30 PM AMBULATORY - NONE [facility] Mar 19, 2025 01:00 PM AMBULATORY - MEDICINE [facility] Apr 11, 2025 02:00 PM AMBULATORY - MEDICINE [facility] Aug 13, 2025 01:00 PM AMBULATORY - MEDICINE [facility] Active, Pending, and Scheduled Orders This section includes a listing of several types of active, pending, and scheduled orders, including clinic medications orders, diagnostic test orders, procedure orders and consult orders; where the start date of the order is 45 days before the date of the Encounter or 45 days after the date of theEncounter. The data comes from all [facility]. Test Date/Time Test Type Test Details Facility Name Feb 05, 2025 02:21 PM Procedure Order CP PULMONA RY FUNCTION TEST CP PULMONARY FUNCTION TEST Proc Gear Hobber Set Up Operator's Choice [facility] Mar 15, 2025 12:00 AM Laboratory - Chemi stry Order PTH INTACT ([facility]) [id number] [facility] Mar 15, 2025 12:00 AM Laboratory - Chemi stry Order URINALYSIS URINE [facility] Mar 15, 2025 12:00 AM Laboratory - Chemi stry Order CREATININE URINE [facility] Mar 15, 2025 12:00 AM Laboratory - Chemi stry Order TOTAL PROTEIN URINE [facility] Mar 15, 2025 12:00 AM Laboratory - Chemi stry Order PANEL 4 [id number] [facility] Mar 15, 2025 12:00 AM Laboratory - Chemi stry Order 25-OH VITAMIN D [id number] [facility] Lab Results: +/- 30 [...] Type Comment Mar 06, 2025 11:30 AM [facility] N BNP ([facility]) PLASMA Specimen Type: PLASMA Comment: BNP results less than or equal to 100 pg/ml are medical device sales representative of normal values in patients without CHF. BNP results greater than 100 pg/ml are considered abnormal and suggestive of CHF. Higher BNP concentrations in the first 72 hours after Acute Coronary Syndrome are associated with an increased risk of , myocardial infarction and CHF. Ordering Provider: KAMI MCGINNIS Report Released Date/Time: Mar 05, 2025 10:33 PM Reporting Lab: [facility] [address] [place] [id number] Performing Lab: [address] [address] BNP ([facility]) 205 pg/mL H 0-100 Mar 06, 2025 11:30 AM [facility] PANEL 1 PLASMA Specimen Type: [...] Mar 05, 2025 10:33 PM Reporting Lab: [address] [phone] Performing Lab: [address] [address] CREATININE 2.98 mg/dL H 0.72-1.25 UREA NITROGEN 48 mg/dL H 9-25 GLUCOSE 101 mg/dL H 74-100 SODIUM 139 mmol/L 136-145 POTASSIUM 4.9 mmol/L 3.5-5.1 CHLORIDE 104 mmol/L 98-107 CO2 25 mmol/L 22-29 CALCIUM 9.0 mg/dL 8.4-10.2 ANION GAP 10 meq/L 3-19 eGFR (CKD-EPI) 20 Jan 28, 2025 02:32 PM [facility] CREATININE URINE Specimen Type: URINE No comment entered. Ordering Provider: APARNA KING Report Released Date/Time: Oct 02, 2024 03:22 PM Reporting Lab: [place] [address] Performing Lab: [place] [address] CREATININE 92.7 mg/dL Jan 28, 2025 02:32 PM [facility] TOTAL PROTEIN URINE Specimen Type: URINE No comment entered. Ordering Provider: APARNA KING Report Released Date/Time: Oct 02, 2024 03:22 PM Reporting Lab: [place] [address] Performing Lab: [place] [address] TOTAL PROTEIN 15 mg/dL H 0-14 Jan 28, 2025 02:32 PM [facility] URINALYSIS URINE Specimen Type: URINE Comment: Microscopic not indicated Ordering Provider: APARNA KING Report Released Date/Time: Oct 02, 2024 03:22 PM Reporting Lab: [place] [phone] Performing Lab: [place] [phone] URINE COLOR Light Yellow Colorless-Yello w APPEARANCE Clear Clear UROBILINOGEN Normal mg/dL Normal URINE BLOOD Negative Negative URINE BILIRUBIN Negative Negative URINE KETONES Negative mg/dL Negative URINE PROTEIN Negative mg/dL Negative-Tr rachell URINE PH 5.5 4.5-8.0 URINE NITRITE Negative Negative URINE LEUKOCYTE EST Negative Negative SPECIFIC GRAVITY 1.019 1.005-1.030 URINE GLUCOSE >1000 mg/dL H Negative Jan 28, 2025 02:21 PM [facility] 25-OH VITAMIN D SERUM Specime [...] Oct 02, 2024 03:22 PM Reporting Lab: [place] [phone] Performing Lab: [place] [phone] 25-OH VITAMIN D 40.7 ng/mL 20.0-50.0 Jan 28, 2025 02:21 PM [facility] PTH INTACT ([facility]) PLASMA Spe [...] 02, 2024 03:22 PM Reporting Lab: [address] [address] Performing Lab: [place] [phone] PTH INTACT ([place]) 130.0 pg/mL H 8.7-77.1 Jan 28, 2025 02:21 PM [facility] CBC/PLT BLOOD Specimen Type: BLOOD No comment entered. Ordering Provider: APARNA KING Report Released Date/Time: Oct 02, 2024 03:22 PM Reporting Lab: [address] [phone] Performing Lab: [place] [id number] WBC 6.5 10*3/uL 5.0-10.0 RBC 4.18 10*6/uL L 4.6-6.2 HGB 12.4 g/dL L 14.0-18.0 HCT 39.2 L 42.0-52.0 MCV 93.8 fL 80.0-94.0 MCH 29.7 pg 27.0-31.0 MCHC 31.6 g/dL L 32.0-36.0 PLT 212 10*3/uL 150-450 MPV 10.7 fL 9.0-13.1 RDW 13.9 11.0-16.0 NRBC 0.0 0.0-0.0 Jan 28, 2025 02:20 PM [facility] PHOSPHORUS PLASMA Specimen Type: PLASM A [...] Jan 17, 2025 09:57 AM Reporting Lab: [facility] [address] [facility] [address] Performing Lab: [place] [id number] [facility] [phone] PHOSPHORUS 3.5 mg/dL 2.3-4.7 Jan 28, 2025 02:20 PM [facility] ALBUMIN PLASMA Specimen Type: PLASM [...] 17, 2025 09:57 AM Reporting Lab: [address] [address] Performing Lab: [address] [address] ALBUMIN 4.1 g/dL 3.5-5.2 Jan 28, 2025 02:20 PM [facility] PAN[facility] PLASMA Specimen Type: PLASM [...] Jan 17, 2025 09:57 AM Reporting Lab: [facility] [address] [facility] [phone] Performing Lab: [address] [address] CREATININE 2.55 mg/dL H 0.72-1.25 UREA NITROGEN [...] NON-USER OF TOBACCO [facility] Radiology Reports: +/- 30 days [...] the Encounter. The data comes from all [facility]. Date/Time Radiology Report Provider Source Jan 28, 2025 01:17 PM VENOUS DUPLEX LOWE R EXT BILAT: REINAROBBIE DUNN [id number] -1940 M Ex Date: JAN 28, 2025@13:17 Req Phys: DALIA COBB Pat Loc: [facility] PACT [place] 16-1 (Req'g Loc) Img [facility] Service: Unknown (Case [id number] COMPLETE) VENOUS DUPLEX LOWER EXT BILAT (VAS Detailed) CPT:95303 Reason for Study: SEE CLINICAL HISTORY Clinical History: Venous Duplex for Valvular Competence/Venous Insufficiency: Chronic venous insufficiency Report Status: Verified Date Reported: JAN 29, 2025 Date Verified: JAN 29, 2025 Outdoor Pursuits Instructor E-Sig: Report: EXAM: VENOUS DUPLEX EXAM OF [...] Staff: NICOLASA FLORES, ATTENDING PHYSICIAN Verified by steel unloader for NICOLASA FLORES /NICOLASA SOMMER [facility] Jan 28, 2025 01:17 PM SEGMENTAL PRESSURE S, LOWER EXT([place]) UNILAT: ROBBIE HUANG [id number] -1940 M Exm Date: JAN 28, 2025@13:17 Req Phys: DALIA COBB Pat Loc: [facility]CT [place] 16-1 (Req'g Loc) Img Loc: [facility] [place] Service: Unknown (Case [id number] COMPLETE) SEGMENTAL PRESSURES, LOWER EXT(AB(VAS Detailed) CPT:64771 Reason for Study: SEE CLINICAL HISTORY Clinical History: [place]'s/Segs Indications: Other: BLE edema, r/o PVD for compression tx. Report Status: Verified Date Reported: JAN 29, 2025 Date Verified: JAN 29, 2025 Outdoor Pursuits Instructor E-Sig: Report: LE segmental pressures TECHNIQUE: Continuous wave Doppler waveforms are obtained from pedal vessels, segmental pressures are measured at rest. Photoplethysmographic waveforms are obtained of the digits with pressure measurement. COMPARISON: No prior FINDINGS: Right: Right brachial arterial pressure is 134 mmHg. Multiphasic waveforms are noted in the right posterior tibial and right dorsalis pedis arteries. ABIs demonstrate calcification with right ATTORNEY LAWYER 1.44, left DPA 1.28. Right toe pressure is 115 mmHg. Left: Left brachial arterial pressure is 134 mmHg. Multiphasic waveforms are noted in the left posterior tibial and left dorsalis pedis arteries. ABIs demonstrate calcification with right ATTORNEY LAWYER 1.44, left DPA 1.21. Left toe pressure [...] Staff: NICOLASA FLORES, ATTENDING PHYSICIAN Verified by steel unloader for NICOLASA FLORES /NICOLASA SOMMER [facility] Encounter Notes: All associated encounter notes This section contains the clinical notes associated to the Encounter. Date/Time Encounter Note(s) Provider Source Feb 14, 2025 02:35 PM CARE COORDINATION HOME TELEHEALTH FOLLOW-UP NOTE: LOCAL TITLE: HT INTERVENTION NOTE STANDARD TITLE: CARE COORDINATION HOME TELEHEALTH FOLLOW-UP NOTE DATE OF NOTE: FEB 14, 2025@14:35 ENTRY DATE: FEB 14, 2025@14:35:19 AUTHOR: GARCIA BRUNNER COSIGNER: URGENCY: STATUS: COMPLETED HT Admission Date: 04/10/2024 HT Diagnosis: HTN Provider-ordered vital sign goals: SBP<140 DBP <90 HT electronic capture of the blood pressure? Yes HT Emergency classification: L HT Category of Care: LOBO Last completion date: 10/15/24 [place] 3-month average response rate percentage: 97% HT Equipment Assigned: -COGNOSANTE(1VISION) [employer] TAB ACTIVE V2 -BPM 651 BLE WIDE RANGE Transmitting: Cellular modem Lives Alone: No 02: No PROBLEM: Blood pressure not well controlled. GOAL: Blood pressure will be less than 140/90. INTERVENTIONS: 1. [place] will monitor home vitals daily over the [...] summary reports to the primary care provider. [facility] is actively enrolled in the Home Telehealth program. Review of data shows the following out of range responses: Patient Name: ROBBIE HUANG Disease(s): CHF, Hypertension Date Range: 01/31/2025 - 02/14/2025 [place] Vitals Report Reading Date Sys/[place] BP-HR Weight 02/14/25 120/71 (09:40) 56 (09:40) 02/13/25 129/73 (11:04) 54 (11:04) 176.6 (11:05) 02/12/25 127/63 (21:17) 69 (21:17) 177.6 (10:11) 02/12/25 137/71 (10:11) 56 (10:11) 02/11/25 133/69 (09:46) 57 (09:46) 178.6 (09:46) [...] 01/31/25 140/66 (09:30) 53 (09:30) 180.0 (09:31) [place] Average Report Sys/[place] BP-HR Weight Average 129/68 55 178.5 High 140/108 69 180.0 Low 114/51 50 176.6 == Assessment/Intervention( s)/Plan: Called and spoke with regarding weight uptrend today 3lb gain. He stated that he weighed today with his clothes on to see how much they would add. HT RN removed weight as inaccurate. He stated I am actually feeling pretty good . He denies any other s/s or new concerns. He will call back with any issues. HE appreciated call to check in. == Data update above [place] asymptomatic - denies concerns HT RN to continue to monitor /es/ GARCIA BRUNNER, MSN, RN-BC VEHICLE TRIMMER Signed: 02/14/2025 14:39 [facility]NER [facility]
--- OUTSIDE RECORDS SUMMARY | 2025-02-20 05:20 | XMS_ITS | Encounter Summary ---
Author Name [facility] [place] [facility] [place] Address [address] [place] [address] Care Team Providers Care Wireless Technician Name Role Phone JORDYN DALIA Primary [...] AUTOM OTIVE - RETI Jul 25, 2018 [id number] MALUTI PERKINS SPOUSE MEDICARE (WNR) MEDICARE (M) PART B Jan 22, 2007 PART B [id number] [phone] MALUJUSTYNA TINAJERO RGE PATIENT MEDICARE (WNR) MEDICARE (M) PART A Sep 22, 2005 PART A [id number] REINAJUSTYNA RGE PATIENT FOR LIFE TRICA RE FOR LIFE Jul 25, 2017 FOR LIFE [id number] ROBBIE HUANG JR PATIENT Selected Encounter This section includes the information on record at [place] for the Encounter. Date/Time Encounter Type Encounter Description Reason Pro vider Source Feb 20, 2025 09:20 AM Outpatient Encounter ADMIN PAT ACTIVTIES (MASNONCT) IHE Encounter Template Text not used by [place] Plan of Treatment: Future Appointments (+ 6 months) and Future Tests (+/- 45 days) The Plan of Treatment section includes future care activities for the patient from all [place] [facility] This section includes future appointments and future orders which are active, pending or scheduled. Future Appointments This section includes appointments that were scheduled to occur 6 months from the date of the Encounter, up to a maximum of 20 appointments. The data comes from all [facility]. Appointment Date/Time Appointment Type Appointme nt Facility Name Mar 04, 2025 01:30 PM AMBULATORY - NONE [facility] Mar 18, 2025 01:30 PM AMBULATORY - NONE [facility] Mar 19, 2025 01:00 PM AMBULATORY - MEDICINE [facility] Apr 11, 2025 02:00 PM AMBULATORY - MEDICINE [facility] Aug 13, 2025 01:00 PM AMBULATORY - MEDICINE [facility] Active, Pending, and Scheduled Orders This section includes a listing of several types of active, pending, and scheduled orders, including clinic medications orders, diagnostic test orders, procedure orders and consult orders; where the start date of the order is 45 days before the date of the Encounter or 45 days after the date of theEncounter. The data comes from all [facility]. Test Date/Time Test Type Test Details Facility Name Feb 05, 2025 02:21 PM Procedure Order CP PULMONA RY FUNCTION TEST CP PULMONARY FUNCTION TEST Proc Winding Machine Operator's Choice [facility] Mar 15, 2025 12:00 AM Laboratory - Chemi stry Order PTH INTACT ([facility]) [id number] [facility] Mar 15, 2025 12:00 AM Laboratory - Chemi stry Order URINALYSIS URINE [facility] Mar 15, 2025 12:00 AM Laboratory - Chemi stry Order CREATININE URINE [facility] Mar 15, 2025 12:00 AM Laboratory - Chemi stry Order TOTAL PROTEIN URINE [facility] Mar 15, 2025 12:00 AM Laboratory - Chemi stry Order 25-OH VITAMIN D [id number] [facility] Mar 15, 2025 12:00 AM Laboratory - Chemi stry Order PANEL 4 [id number] [facility] Lab Results: +/- 30 [...] Type Comment Mar 06, 2025 11:30 AM [facility] N BNP ([facility]) PLASMA Specimen Type: PLASMA Comment: BNP results less than or equal to 100 pg/ml are medical collections representative of normal values in patients without CHF. BNP results greater than 100 pg/ml are considered abnormal and suggestive of CHF. Higher BNP concentrations in the first 72 hours after Acute Coronary Syndrome are associated with an increased risk of , myocardial infarction and CHF. Ordering Provider: KAMI MCGINNIS Report Released Date/Time: Mar 05, 2025 10:33 PM Reporting Lab: [address] [address] Performing Lab: [address] [address] BNP ([facility]) 205 pg/mL H 0-100 Mar 06, 2025 11:30 AM [facility] PANEL 1 PLASMA Specimen Type: PLASM [...] Mar 05, 2025 10:33 PM Reporting Lab: [address] [address] Performing Lab: [address] [address] CREATININE 2.98 mg/dL H 0.72-1.25 UREA NITROGEN 48 mg/dL H 9-25 GLUCOSE 101 mg/dL H 74-100 SODIUM 139 mmol/L 136-145 POTASSIUM 4.9 mmol/L 3.5-5.1 CHLORIDE 104 mmol/L 98-107 CO2 25 mmol/L 22-29 CALCIUM 9.0 mg/dL 8.4-10.2 ANION GAP 10 meq/L 3-19 eGFR (CKD-EPI) Jan 28, 2025 02:32 PM [facility] CREATININE URINE Specimen Type: URINE No comment entered. Ordering Provider: APARNA KING Report Released Date/Time: Oct 02, 2024 03:22 PM Reporting Lab: [address] [address] Performing Lab: [address] [address] CREATININE 92.7 mg/dL Jan 28, 2025 02:32 PM [facility] TOTAL PROTEIN URINE Specimen Type: URINE No comment entered. Ordering Provider: APARNA KING Report Released Date/Time: Oct 02, 2024 03:22 PM Reporting Lab: [address] [address] Performing Lab: [address] [address] TOTAL PROTEIN 15 mg/dL H 0-14 Jan 28, 2025 02:32 PM [facility] URINALYSIS URINE Specimen Type: URINE Comment: Microscopic not indicated Ordering Provider: APARNA KING Report Released Date/Time: Oct 02, 2024 03:22 PM Reporting Lab: [address] [address] Performing Lab: [address] [address] URINE COLOR Light Yellow Colorless-Yello w APPEARANCE Clear Clear UROBILINOGEN Normal mg/dL Normal URINE BLOOD Negative Negative URINE BILIRUBIN Negative Negative URINE KETONES Negative mg/dL Negative URINE PROTEIN Negative mg/dL Negative-Tr rachell URINE PH 5.5 4.5-8.0 URINE NITRITE Negative Negative URINE LEUKOCYTE EST Negative Negative SPECIFIC GRAVITY 1.019 1.005-1.030 URINE GLUCOSE >1000 mg/dL H Negative Jan 28, 2025 02:21 PM [facility] 25-OH VITAMIN D SERUM Specime n [...] Oct 02, 2024 03:22 PM Reporting Lab: [address] [address] Performing Lab: [address] [address] 25-OH VITAMIN D 40.7 ng/mL 20.0-50.0 Jan 28, 2025 02:21 PM [facility] PTH INTACT ([facility]) PLASMA Spe cimen [...] Oct 02, 2024 03:22 PM Reporting Lab: [address] [address] Performing Lab: [address] [address] PTH INTACT ([facility]) 130.0 pg/mL H 8.7-77.1 Jan 28, 2025 02:21 PM [facility] CBC/PLT BLOOD Specimen Type: BLOOD No comment entered. Ordering Provider: APARNA KING Report Released Date/Time: Oct 02, 2024 03:22 PM Reporting Lab: [address] [address] Performing Lab: [address] [address] WBC 6.5 10*3/uL 5.0-10.0 RBC 4.18 10*6/uL L 4.6-6.2 HGB 12.4 g/dL L 14.0-18.0 HCT 39.2 L 42.0-52.0 MCV 93.8 fL 80.0-94.0 MCH 29.7 pg 27.0-31.0 MCHC 31.6 g/dL L 32.0-36.0 PLT 212 10*3/uL 150-450 MPV 10.7 fL 9.0-13.1 RDW 13.9 11.0-16.0 NRBC 0.0 0.0-0.0 Jan 28, 2025 02:20 PM [facility] PHOSPHORUS PLASMA Specimen Type: PLASM A [...] Jan 17, 2025 09:57 AM Reporting Lab: [address] [address] Performing Lab: [address] [address] PHOSPHORUS 3.5 mg/dL 2.3-4.7 Jan 28, 2025 02:20 PM [facility] ALBUMIN PLASMA Specimen Type: PLASM A [...] Jan 17, 2025 09:57 AM Reporting Lab: [address] [address] Performing Lab: [address] [address] ALBUMIN 4.1 g/dL 3.5-5.2 Jan 28, 2025 02:20 [facility] Specimen Type: PLASM [...] Jan 17, 2025 09:57 AM Reporting Lab: [address] [address] Performing Lab: [address] [address] CREATININE 2.55 mg/dL H 0.72-1.25 UREA NITROGEN [...] 10, 2024 02:00 PM VA-TOBACCO NEVER USED [facility] Tobacco Use History This section includes a history of the smoking, or tobacco-related health factors, that were collected on or before the date of the Encounter. The data comes from the [place] facility where the Encounter took place. Date/Time Smoking Status/Tobacco Use Comment F acility May 19, 2017 03:22 AM NON-TOBACCO USE INPATIENT [facility] Sep 07, 2016 02:41 AM NON-TOBACCO USE INPATIENT [facility] Apr 21, 2004 08:29 AM HF V9 CURRENT NON-SMOKER quit smoking about 30 yrs ago [facility] Sep 06, 2002 02:26 PM HF V9 CURRENT NON-SMOKER QUIT SMOKING ABOUT 31 YRS AGO [facility] Radiology Reports: +/- 30 days [...] the Encounter. The data comes from all [place] treatment facilities. Date/Time Radiology Report Provider Source Jan 28, 2025 01:17 PM VENOUS DUPLEX DAISYE Raul ESPINOSA BILTANVI: ROBBIE HUANG [id number] [facility]-1940 M Exm Date: JAN 28, 2025@13:17 Req Phys: DALIA COBB Pat Loc: [facility] 16-1 (Req'g Loc) Img Loc: [facility] [place] Service: Unknown (Case [id number] COMPLETE) VENOUS DUPLEX LOWER EXT BILAT (VAS Detailed) CPT:39783 Reason for Study: SEE CLINICAL HISTORY Clinical History: Venous Duplex for Valvular Competence/Venous Insufficiency: Chronic venous insufficiency Report Status: Verified Date Reported: JAN 29, 2025 Date Verified: JAN 29, 2025 Certified Coatings Inspector E-Sig: Report: EXAM: VENOUS DUPLEX EXAM OF [...] NICOLASA FLORES, ATTENDING PHYSICIAN Verified by production material coordinator for NICOLASA FLORES /NICOLASA SOMMER [facility] Jan 28, 2025 01:17 PM SEGMENTAL PRESSURE S, LOWER EXT(FLORENCE) UNILAT: ROBBIE HUANG [id number] -1940 M Exm Date: JAN 28, 2025@13:17 Req Phys: DALIA COBB Pat Loc: [facility] 16-1 (Req'g Loc) Img Loc: [facility] Service: Unknown (Case [id number] COMPLETE) SEGMENTAL PRESSURES, LOWER EXT(AB(VAS Detailed) CPT:93586 Reason for Study: SEE CLINICAL HISTORY Clinical History: FLORENCE's/Segs Indications: Other: BLE edema, r/o PVD for compression tx. Report Status: Verified Date Reported: JAN 29, 2025 Date Verified: JAN 29, 2025 Certified Coatings Inspector E-Sig: Report: LE segmental pressures TECHNIQUE: Continuous wave Doppler waveforms are obtained from pedal vessels, segmental pressures are measured at rest. Photoplethysmographic waveforms are obtained of the digits with pressure measurement. COMPARISON: No prior FINDINGS: Right: Right brachial arterial pressure is 134 mmHg. Multiphasic waveforms are noted in the right posterior tibial and right dorsalis pedis arteries. ABIs demonstrate calcification with right STAPLE SHEAR OPERATOR 1.44, left DPA 1.28. Right toe pressure is 115 mmHg. Left: Left brachial arterial pressure is 134 mmHg. Multiphasic waveforms are noted in the left posterior tibial and left dorsalis pedis arteries. ABIs demonstrate calcification with right STAPLE SHEAR OPERATOR 1.44, left DPA 1.21. Left toe pressure [...] NICOLASA FLORES, ATTENDING PHYSICIAN Verified by production material coordinator for NICOLASA FLORES /NICOLASA SOMMER [facility] Encounter Notes: All associated encounter notes This section contains the clinical notes associated to the Encounter. Date/Time Encounter Note(s) Provider Source Feb 20, 2025 09:21 AM ADMINISTRATIVE NOT E: LOCAL TITLE: CCC: SCHEDULING ADMINISTRATION STANDARD TITLE: ADMINISTRATIVE NOTE DATE OF NOTE: FEB 20, 2025@09:21:02 ENTRY DATE: FEB 20, 2025@09:21:02 AUTHOR: JAX NAQVI EXP COSIGNER: URGENCY: STATUS: COMPLETED CCC: SCHEDULING ADMINISTRATION Has ADDENDA Caller Verification Emergency Contact: LISS HUANG Emergency Contact Caller/Recipient Relation to Patient: Self Caller Name: ROBBIE HUANG Administrative Administrative Note Reason: Other Administrative Note Comments: Pt calling to speak with you regarding he recieved small compression stockings and he needs a size large IMPORTANT: This note was created by [facility] Clinical Contact Center staff. Please do not alert the staff member by adding them as a signer for future communications. Alerts are not monitored by this user. /jack/ JAX PATTON Advanced medical malpractice paralegal Signed: 02/20/2025 09:21 Receipt Acknowledged By: 02/20/2025 11:22 /jack/ DENEEN LION Registered Nurse for JAIME STEVE 02/20/2025 ADDENDUM STATUS: COMPLETED V/A ACADEMIC AFFAIRS SPECIALIST see February 07 2025 PC compression stocking measurment /jack/ DENEEN LION Registered Nurse Signed: 02/20/2025 11:23 JAX NAQVI-[facility]
--- OUTSIDE RECORDS SUMMARY | 2025-02-21 08:59 | XMS_ITS | Encounter Summary ---
Author Name [facility] [place] [facility] [place] Organization [facility] [place] [facility] [place] Address [address] [place] [address] Care Team Providers Care Pipelines Supervisor Name Role Phone JORDYN DALIA Primary Care [...] AUTOM OTIVE - RETI Jul 25, 2018 [id number] MALUTI PERKINS JORDAN SPOUSE MEDICARE (WNR) MEDICARE (M) PART B Jan 22, 2007 PART B [id number] [id number] MALUJUSTYNA TINAJERO RGE PATIENT MEDICARE (WNR) MEDICARE (M) PART A Sep 22, 2005 PART A [id number] [id number] REINAJUSTYNA RGE PATIENT FOR LIFE TRICA RE FOR LIFE Jul 25, 2017 FOR LIFE [id number] ROBBIE HUANG JR PATIENT Selected Encounter This section includes the information on record at [place] for the Encounter. Date/Time Encounter Type Encounter Description Reason Provider Source Feb 21, 2025 12:59 PM Outpatient Encounter HT NON-VIDEO MONITORING ICD-10-CM I10 Essential (primary) hypertension KEEGAN BRUNNER IHE Encounter Template Text not used by [place] Assessments - Encounter Diagnoses This section includes the primary and secondary diagnoses documented for the Encounter. Date/Time Primary/Secondary Diagnosis Diagnosis Name Provider Source Feb 21, 2025 01:28 PM PRIMARY Essential (primary) hypertension SRINIVASAN BRUNNER [facility] Plan of Treatment: Future Appointments (+ 6 months) and Future Tests (+/- 45 days) The Plan of Treatment section includes future care activities for the patient from [facility] This section includes future appointments and future orders which are active, pending or scheduled. Future Appointments This section includes appointments that were scheduled to occur 6 months from the date of the Encounter, up to a maximum of 20 appointments. The data comes from all [place] treatment [facility]. Appointment Date/Time Appointment Type Appointme nt Facility Name Mar 04, 2025 01:30 PM AMBULATORY - NONE [facility] Mar 18, 2025 01:30 PM AMBULATORY - NONE [facility] Mar 19, 2025 01:00 PM [facility]INE [facility] Apr 11, 2025 02:00 PM [facility] Aug 13, 2025 01:00 PM [facility] Active, Pending, and Scheduled Orders This section includes a listing of several types of active, pending, and scheduled orders, including clinic medications orders, diagnostic test orders, procedure orders and consult orders; where the start date of the order is 45 days before the date of the Encounter or 45 days after the date of theEncounter. The data comes from all [facility]. Test Date/Time Test Type Test Details Facility Name Feb 05, 2025 02:21 PM Procedure Order CP PULMONA RY FUNCTION TEST CP PULMONARY FUNCTION TEST Proc Mortar Mixer's Choice [facility] Mar 15, 2025 12:00 AM Laboratory - Chemi stry Order PTH INTACT ([facility]) [id number] [facility] Mar 15, 2025 12:00 AM Laboratory - Chemi stry Order URINALYSIS URINE [facility] Mar 15, 2025 12:00 AM Laboratory - Chemi stry Order CREATININE URINE [facility] Mar 15, 2025 12:00 AM Laboratory - Chemi stry Order TOTAL PROTEIN URINE [facility] Mar 15, 2025 12:00 AM Laboratory - Chemi stry Order PANEL 4 [id number] [facility] Mar 15, 2025 12:00 AM Laboratory - Chemi stry Order 25-OH VITAMIN D [id number] [facility] Lab Results: +/- 30 days of the [...] Type Comment Mar 06, 2025 11:30 AM [facility] N BNP (MCCALL) PLASMA Specimen Type: PLASMA [...] Mar 05, 2025 10:33 PM Reporting Lab: [facility] [address] [facility] [address] Performing Lab: [address] [address] BNP (MCCALL) 205 pg/mL H 0-100 Mar 06, 2025 11:30 AM [facility] PANEL 1 PLASMA Specimen Type: [...] Mar 05, 2025 10:33 PM Reporting Lab: [address] [address] Performing Lab: [address] [address] CREATININE 2.98 mg/dL H 0.72-1.25 UREA NITROGEN 48 mg/dL H 9-25 GLUCOSE 101 mg/dL H 74-100 SODIUM 139 mmol/L 136-145 POTASSIUM 4.9 mmol/L 3.5-5.1 CHLORIDE 104 mmol/L 98-107 CO2 25 mmol/L 22-29 CALCIUM 9.0 mg/dL 8.4-10.2 ANION GAP 10 meq/L 3-19 eGFR (CKD-EPI) 20 Jan 28, 2025 02:32 PM [facility] CREATININE URINE Specimen Type: URINE No comment entered. Ordering Provider: APARNA KING Report Released Date/Time: Oct 02, 2024 03:22 PM Reporting Lab: [place] [phone] Performing Lab: [place] [phone] CREATININE 92.7 mg/dL Jan 28, 2025 02:32 PM [facility] TOTAL PROTEIN URINE Specimen Type: URINE No comment entered. Ordering Provider: APARNA KING Report Released Date/Time: Oct 02, 2024 03:22 PM Reporting Lab: [place] [phone] Performing Lab: [place] [phone] TOTAL PROTEIN 15 mg/dL H 0-14 Jan 28, 2025 02:32 PM [facility] URINALYSIS URINE Specimen Type: URINE Comment: Microscopic not indicated Ordering Provider: APARNA KING Report Released Date/Time: Oct 02, 2024 03:22 PM Reporting Lab: [place] [phone] Performing Lab: [place] [phone] URINE COLOR Light Yellow Colorless-Yello w APPEARANCE Clear Clear UROBILINOGEN Normal mg/dL Normal URINE BLOOD Negative Negative URINE BILIRUBIN Negative Negative URINE KETONES Negative mg/dL Negative URINE PROTEIN Negative mg/dL Negative-Tr rachell URINE PH 5.5 4.5-8.0 URINE NITRITE Negative Negative URINE LEUKOCYTE EST Negative Negative SPECIFIC GRAVITY 1.019 1.005-1.030 URINE GLUCOSE >1000 mg/dL H Negative Jan 28, 2025 02:21 PM [facility] 25-OH VITAMIN D SERUM Specime [...] 02, 2024 03:22 PM Reporting Lab: [address] [address] Performing Lab: [address] [address] 25-OH VITAMIN D 40.7 ng/mL 20.0-50.0 Jan 28, 2025 02:21 PM [facility] PTH INTACT (MCCALL) PLASMA Spe [...] 02, 2024 03:22 PM Reporting Lab: [address] [address] Performing Lab: [address] [address] PTH INTACT (MCCALL) 130.0 pg/mL H 8.7-77.1 Jan 28, 2025 02:21 PM [facility] CBC/PLT BLOOD Specimen Type: BLOOD No comment entered. Ordering Provider: APARNA KING Report Released Date/Time: Oct 02, 2024 03:22 PM Reporting Lab: [address] [address] Performing Lab: [address] [address] WBC 6.5 10*3/uL 5.0-10.0 RBC 4.18 10*6/uL L 4.6-6.2 HGB 12.4 g/dL L 14.0-18.0 HCT 39.2 L 42.0-52.0 MCV 93.8 fL 80.0-94.0 MCH 29.7 pg 27.0-31.0 MCHC 31.6 g/dL L 32.0-36.0 PLT 212 10*3/uL 150-450 MPV 10.7 fL 9.0-13.1 RDW 13.9 11.0-16.0 NRBC 0.0 0.0-0.0 Jan 28, 2025 02:20 PM [facility] PHOSPHORUS PLASMA Specimen Type: PLASM [...] Jan 17, 2025 09:57 AM Reporting Lab: [facility] [address] [facility] [phone] Performing Lab: [facility] [address] [facility] [phone] PHOSPHORUS 3.5 mg/dL 2.3-4.7 Jan 28, 2025 02:20 PM [facility] ALBUMIN PLASMA Specimen Type: PLASM A Comment: [...] Jan 17, 2025 09:57 AM Reporting Lab: [facility] [address] [facility] [phone] Performing Lab: [address] [address] ALBUMIN 4.1 g/dL 3.5-5.2 Jan 28, 2025 02:20 PM [facility] PANEL 1 PLASMA Specimen Type: PLASM A [...] Jan 17, 2025 09:57 AM Reporting Lab: [facility] [address] [facility] [phone] Performing Lab: [address] [address] CREATININE 2.55 mg/dL H 0.72-1.25 UREA NITROGEN [...] 25, 2023 01:30 PM VA-TOBACCO FORMER USER [facility] Tobacco Use History This section includes a history of the smoking, or tobacco-related health factors, that were collected on or before the date of the Encounter. The data comes from the [place] facility where the Encounter took place. Date/Time Smoking Status/Tobacco Use Comment F acility May 25, 2023 01:30 PM VA-TOBACCO QUIT 15 YRS OR MORE [facility] Jun 18, 2022 01:30 PM VA-TOBACCO FORMER USER [facility] Jun 18, 2022 01:30 PM VA-TOBACCO QUIT 15 YRS OR MORE [facility] Jun 29, 2021 03:00 PM VA-TOBACCO FORMER USER [facility] Jun 29, 2021 03:00 PM VA-TOBACCO QUIT 15 YRS OR MORE [facility] Jul 28, 2020 09:30 AM VA-TOBACCO FORMER USER [facility] Jul 28, 2020 09:30 AM VA-TOBACCO QUIT 15 YRS OR MORE [facility] Jul 09, 2019 03:25 PM VA-TOBACCO NEVER USED [facility] Aug 24, 2018 02:06 PM VA-TOBACCO FORMER USER [facility] Aug 24, 2018 02:06 PM VA-TOBACCO QUIT 15 YRS OR MORE [facility] Sep 22, 2017 07:57 AM V9 LIFETIME NON-USER OF TOBACCO [facility] December 15, 2015 08:07 AM V9 LIFETIME NON-USER OF TOBACCO [facility] Jun 14, 2014 07:48 AM V9 LIFETIME NON-USER OF TOBACCO [facility] Jun 07, 2013 10:08 AM V9 LIFETIME NON-USER OF TOBACCO [facility] May 29, 2012 10:26 AM V9 LIFETIME NON-USER OF TOBACCO [facility] Nov 22, 2011 02:23 PM V9 LIFETIME NON-USER OF TOBACCO [facility] Oct 23, 2010 09:22 AM V9 QUIT TOBACCO >7 YEARS AGO [facility] May 30, 2007 03:08 PM V9 LIFETIME NON-USER OF TOBACCO [facility] Radiology Reports: +/- 30 days [...] the Encounter. The data comes from all [facility]. Date/Time Radiology Report Provider Source Jan 28, 2025 01:17 PM VENOUS DUPLEX LOWE R EXT BILAT: ROBBIE HUANG [id number] -[id number] M Ex Date: JAN 28, 2025@13:17 Req Phys: DALIA COBB Pat Loc: [facility] PACT [facility] 16-1 (Req'g Loc) Img Loc: [facility] Service: Unknown (Case [id number] COMPLETE) VENOUS DUPLEX LOWER EXT BILAT (VAS Detailed) CPT:18600 Reason for Study: SEE CLINICAL HISTORY Clinical History: Venous Duplex for Valvular Competence/Venous Insufficiency: Chronic venous insufficiency Report Status: Verified Date Reported: JAN 29, 2025 Date Verified: JAN 29, 2025 Mill Worker E-Sig: Report: EXAM: VENOUS DUPLEX EXAM [...] Staff: NICOLASA FLORES, ATTENDING PHYSICIAN Verified by order builder for NICOLASA FLORES /NICOLASA SOMMER [facility] Jan 28, 2025 01:17 PM SEGMENTAL PRESSURE S, LOWER EXT(FLORENCE) UNILAT: ROBBIE HUANG [id number] -[id number] M Exm Date: JAN 28, 2025@13:17 Req Phys: DALIA COBB Loc: [facility] 16-1 (Req'g Loc) Img Loc: V[facility]O [facility]AS [facility] Service: Unknown (Case [id number] COMPLETE) SEGMENTAL PRESSURES, LOWER EXT(AB(VAS Detailed) CPT:09000 Reason for Study: SEE CLINICAL HISTORY Clinical History: FLORENCE's/Segs Indications: Other: BLE edema, r/o PVD for compression tx. Report Status: Verified Date Reported: JAN 29, 2025 Date Verified: JAN 29, 2025 Mill Worker E-Sig: Report: LE segmental pressures TECHNIQUE: Continuous wave Doppler waveforms are obtained from pedal vessels, segmental pressures are measured at rest. Photoplethysmographic waveforms are obtained of the digits with pressure measurement. COMPARISON: No prior FINDINGS: Right: Right brachial arterial pressure is 134 mmHg. Multiphasic waveforms are noted in the right posterior tibial and right dorsalis pedis arteries. ABIs demonstrate calcification with right IMMUNOPATHOLOGIST 1.44, left DPA 1.28. Right toe pressure is 115 mmHg. Left: Left brachial arterial pressure is 134 mmHg. Multiphasic waveforms are noted in the left posterior tibial and left dorsalis pedis arteries. ABIs demonstrate calcification with right IMMUNOPATHOLOGIST 1.44, left DPA 1.21. Left toe pressure [...] Staff: NICOLASA FLORES, ATTENDING PHYSICIAN Verified by order builder for NICOLASA FLORES /NICOLASA SOMMER [facility] Encounter Notes: All associated encounter notes This section contains the clinical notes associated to the Encounter. Date/Time Encounter Note(s) Provider Source Feb 21, 2025 01:05 PM CARE COORDINATION HOME TELEHEALTH SUMMARIZATION NOTE: LOCAL TITLE: HT MONTHLY MONITOR NOTE STANDARD TITLE: CARE COORDINATION HOME TELEHEALTH SUMMARIZATION DATE OF NOTE: FEB 21, 2025@13:05 ENTRY DATE: FEB 21, 2025@13:05:46 AUTHOR: GARCIA BRUNNER COSIGNER: URGENCY: STATUS: COMPLETED [...] minutes for the month monitored. Month monitored: January 2025 /jack/ GARCIA BRUNNER, MSN, RN-BC SECTION HAND Signed: 02/21/2025 13:27 GARCIA BRUNNER [facility]
--- OUTSIDE RECORDS SUMMARY | 2025-03-04 02:42 | XMS_ITS | Encounter Summary ---
Author Name [facility] [place] Organization [facility] [place] Address [address] [place] [address] Care Team Providers Care Underwriting Account Representative Name Role Phone DALIA COBB Primary Care [...] Asif's Name Patient's Relationship to Policy Asif [facility] [place] [employer] MEDICARE SECONDARY (NO B EXC) TI AUTOM OTIVE - RETI Jul 25, 2018 [id number] TI KAMARA SPOUSE MEDICARE (WNR) MEDICARE (M) PART B Jan 22, 2007 PART B [id number] JUSTYNA HUANG PATIENT MEDICARE (WNR) MEDICARE (M) PART A Sep 22, 2005 PART A [id number] MALUJUSTYNA TINAJERO PATIENT FOR LIFE TRICA RE FOR LIFE Jul 25, 2017 FOR LIFE [id number] ROBBIE HUANG JR PATIENT Selected Encounter This section includes the information on record at [place] for the Encounter. Date/Time Encounter Type Encounter Description Reason Pro vider Source Mar 04, 2025 06:42 AM Outpatient Encounter TELEPHONE TRIAGE IHE Encounter Template Text not used by [place] Plan of Treatment: Future Appointments (+ 6 months) and Future Tests (+/- 45 days) The Plan of Treatment section includes future care activities for the patient from all [place] treatmentfacilities. This section includes future appointments and future orders which are active, pending or scheduled. Future Appointments This section includes appointments that were scheduled to occur 6 months from the date of the Encounter, up to a maximum of 20 appointments. The data comes from all [facility]. Appointment Date/Time Appointment Type Appointme nt Facility Name Mar 18, 2025 01:30 PM AMBULATORY - NONE [place] [facility] Mar 19, 2025 01:00 PM AMBULATORY - MEDICINE [facility] Apr 11, 2025 02:00 PM AMBULATORY - MEDICINE [facility] Aug 13, 2025 01:00 PM AMBULATORY - MEDICINE [facility] Aug 27, 2025 09:30 AM AMBULATORY - MEDICINE [facility] Active, Pending, and Scheduled Orders This section includes a listing of several types of active, pending, and scheduled orders, including clinic medications orders, diagnostic test orders, procedure orders and consult orders; where the start date of the order is 45 days before the date of the Encounter or 45 days after the date of theEncounter. The data comes from all [facility]. Test Date/Time Test Type Test Details Facility Name Feb 05, 2025 02:21 PM Procedure Order CP PULMONA RY FUNCTION TEST CP PULMONARY FUNCTION TEST Proc Regional Operations Director's Choice [facility] Mar 15, 2025 12:00 AM Laboratory - Chemi stry Order PTH INTACT ([facility]) [id number] [facility] Mar 15, 2025 12:00 AM Laboratory - Chemi stry Order URINALYSIS URINE [facility] Mar 15, 2025 12:00 AM Laboratory - Chemi stry Order CREATININE URINE [facility] Mar 15, 2025 12:00 AM Laboratory - Chemi stry Order TOTAL PROTEIN URINE [facility] Mar 15, 2025 12:00 AM Laboratory - Chemi stry Order PANEL 4 [id number] [facility] Mar 15, 2025 12:00 AM Laboratory - Chemi stry Order 25-OH VITAMIN D [id number] [facility] Lab Results: [...] Type Comment Mar 06, 2025 11:30 AM [facility] N BNP ([facility]) PLASMA Specimen Type: [...] Mar 05, 2025 10:33 PM Reporting Lab: [address] [address] Performing Lab: [address] [address] BNP (MCCALL) 205 pg/mL H 0-100 Mar 06, 2025 11:30 AM [facility] PANEL 1 PLASMA Specimen Type: [...] Mar 05, 2025 10:33 PM Reporting Lab: [address] [address] Performing Lab: [address] [address] CREATININE 2.98 mg/dL H 0.72-1.25 UREA NITROGEN 48 mg/dL H 9-25 GLUCOSE 101 mg/dL H 74-100 SODIUM 139 mmol/L 136-145 POTASSIUM 4.9 mmol/L 3.5-5.1 CHLORIDE 104 mmol/L 98-107 CO2 25 mmol/L 22-29 CALCIUM 9.0 mg/dL 8.4-10.2 ANION GAP 10 meq/L 3-19 eGFR (CKD-EPI) 20 Social History: Smoking Status (Most current) and [...] Current Smoking Status Comment Kelechi ity May 10, 2024 02:00 PM VA-TOBACCO [...] ABOUT 31 YRS AGO [facility] Encounter Notes: All associated encounter notes This section contains the clinical notes associated to the Encounter. Date/Time Encounter Note(s) Provider Source Mar 04, 2025 06:42 AM RN PROGRESS NOTE: LOCAL TITLE: [facility]: CLINICAL TRIAGE STANDARD TITLE: RN PROGRESS NOTE DATE OF NOTE: MAR 04, 2025@06:42:57 ENTRY DATE: MAR 04, 2025@06:42:57 AUTHOR: JARRED WILLSON COSIGNER: URGENCY: STATUS: COMPLETED Caller Verification Caller/Recipient Relation to Patient: Self Caller Name: ROBBIE HUANG Emergency Contact: LISS HUANG Nursing Plan and Disposition Other course(s) of action Generated msg to PACT/Provider Nurse Summary Nurse Summary: [facility] called to verify today's appointment. Provided with appointment details. [facility] expresses no other need at this time. Non-Triage/Non-Symptom Call Provided patient w/ administrative Info Generated msg to PACT/Provider-NonTriage Clinical Contact Center Codes Clinic/Location: V9 [facility] PHONE ENRIQUETA RN IMPORTANT: This note was created by [facility] Clinical Contact Center staff. Please do not alert the staff member by adding them as a signer for future communications. Alerts are not monitored by this user. /jack/ CINTHIA Tran purse maker RN Signed: 03/04/2025 06:42 [facility]
--- OUTSIDE RECORDS SUMMARY | 2025-03-04 09:30 | XMS_ITS | Encounter Summary ---
Author Name [facility] Address [address] [place] [address] Care Team Providers Care Hvac Service Tech Name Role Phone JORDYN DALIA Primary Care [...] AUTOM OTIVE - RETI Jul 25, 2018 [id number] KAMARA SPOUSE MEDICARE (WNR) MEDICARE (M) PART B Jan 22, 2007 PART B [id number] MALUJUSTYNA TINAJERO RGE PATIENT MEDICARE (WNR) MEDICARE (M) PART A Sep 22, 2005 PART A [id number] MALUJUSTYNA TINAJERO PATIENT FOR LIFE TRICA RE FOR LIFE Jul 25, 2017 FOR LIFE [id number] ROBBIE HUANG JR PATIENT Selected Encounter This section includes the information on record at [place] for the Encounter. Date/Time Encounter Type Encounter Description Reason Provider Source Mar 04, 2025 01:30 PM MTMS BY PHARM ALEJANDRO 15 MIN TELEPHONE/ANCILLAR Y ICD-10-CM I50.22 Chronic systolic (congestive) heart failure KAMI MCGINNIS IHKal Encounter Template Text not used by [place] Assessments - Encounter Diagnoses This section includes the primary and secondary diagnoses documented for the Encounter. Date/Time Primary/Secondary Diagnosis Diagnosis Name Provider Source Mar 04, 2025 01:30 PM PRIMARY Chronic systolic (congestive) heart failure KAMI MCGINNIS [facility] Plan of Treatment: Future Appointments (+ 6 months) and Future Tests (+/- 45 days) The Plan of Treatment section includes future care activities for the patient from [facility] This section includes future appointments and future orders which are active, pending or scheduled. Future Appointments This section includes appointments that were scheduled to occur 6 months from the date of the Encounter, up to a maximum of 20 appointments. The data comes from all [place] treatment [facility]. Appointment Date/Time Appointment Type Appointme nt Facility Name Mar 18, 2025 01:30 PM [facility] Mar 19, 2025 01:00 PM AMBULATORY - MEDICINE [facility] Apr 11, 2025 02:00 PM AMBULATORY - MEDICINE [facility] Aug 13, 2025 01:00 PM AMBULATORY - MEDICINE [facility] Aug 27, 2025 09:30 AM AMBULATORY - MEDICINE [facility] Active, Pending, and Scheduled Orders [...] The data comes from all [facility]. Test Date/Time Test Type Test Details Facility Name Feb 05, 2025 02:21 PM Procedure Order CP PULMONA RY FUNCTION TEST CP PULMONARY FUNCTION TEST Proc Carbonator's Choice [facility] Mar 15, 2025 12:00 AM Laboratory - Chemi stry Order PTH INTACT ([facility]) [id number] [facility] Mar 15, 2025 12:00 AM Laboratory - Chemi stry Order URINALYSIS URINE [facility] Mar 15, 2025 12:00 AM Laboratory - Chemi stry Order CREATININE URINE [facility] Mar 15, 2025 12:00 AM Laboratory - Chemi stry Order TOTAL PROTEIN URINE [facility] Mar 15, 2025 12:00 AM Laboratory - Chemi stry Order PANEL 4 [id number] [facility] Mar 15, 2025 12:00 AM Laboratory - Chemi stry Order 25-OH VITAMIN D [id number] [facility] Lab Results: +/- 30 days [...] Type Comment Mar 06, 2025 11:30 AM [facility] N BNP ([facility]) PLASMA Specimen Type: PLASMA Comment: BNP results less than or equal to 100 pg/ml are transportation services representative of normal values in patients without CHF. BNP results greater than 100 pg/ml are considered abnormal and suggestive of CHF. Higher BNP concentrations in the first 72 hours after Acute Coronary Syndrome are associated with an increased risk of , myocardial infarction and CHF. Ordering Provider: KAMI MCGINNIS Report Released Date/Time: Mar 05, 2025 10:33 PM Reporting Lab: [address] [id number] Performing Lab: [address] [id number] BNP ([facility]) 205 pg/mL H 0-100 Mar 06, 2025 11:30 AM [facility] PANEL 1 PLASMA Specimen Type: [...] Mar 05, 2025 10:33 PM Reporting Lab: [address] [id number] Performing Lab: [address] [address] CREATININE 2.98 mg/dL H 0.72-1.25 UREA NITROGEN [...] and tobacco- related health factors from the [place] facility where the Encounter took place. Current Smoking Status This section includes the most current smoking, or tobacco-related health factor, from the [place] facility where the Encounter took place. Date/Time Current Smoking Status Comment Facil ity May 10, 2024 02:00 PM VA-TOBACCO NEVER USED [facility] Tobacco Use History This section includes a history of the smoking, or tobacco-related health factors, that were collected on or before the date of the Encounter. The data comes from the [place] facility where the Encounter took place. Date/Time Smoking Status/Tobacco Use Comment F acility May 19, 2017 03:22 AM NON-TOBACCO USE INPATIENT [facility] Sep 07, 2016 02:41 AM NON-TOBACCO USE INPATIENT [facility] Apr 21, 2004 08:29 AM HF V9 CURRENT NON-SMOKER quit smoking about 30 yrs ago [facility] Sep 06, 2002 02:26 PM HF V9 CURRENT NON-SMOKER QUIT SMOKING ABOUT 31 YRS AGO [facility] Encounter Notes: All associated encounter notes This section contains the clinical notes associated to the Encounter. Date/Time Encounter Note(s) Provider Source Mar 07, 2025 03:16 PM ADDENDUM: LOCAL TITLE: Addendum STANDARD TITLE: ADDENDUM DATE OF NOTE: MAR 07, 2025@15:16:39 ENTRY DATE: MAR 07, 2025@15:16:40 AUTHOR: KAMI MCGINNIS COSIGNER: URGENCY: STATUS: COMPLETED ---- CHEMISTRY PLASMA PROFILE ---- PLASMA Mar 06 Jan 28 Jan 11 Dec 31 Reference 2024 2024 2024 2024 11:30 14:20 09:53 Units Ranges NA 139 142 143 138 mmol/L 136 - 145 K 4.9 4.5 4.7 4.4 mmol/L 3.5 - 5.1 CL 104 109 H 107 105 mmol/L 98 - 107 CO2 25.0 25.0 25.0 25.0 mmol/L 22 - 29 GLUC 101 H 91 105 H 94 mg/dl 74 - 100 UN 48.0 H 38.0 H 46.0 H 31.0 H mg/dL 9 - 25 CREAT 2.98 H 2.55 H 2.62 H 2.04 H mg/dL .72 - 1.25 eGFR SEE EVAL Ref: See Eval ANI GAP 10.0 8.0 11.0 8.0 mEq/L 3 - 19 ALB 4.1 g/dL 3.5 - 5.2 CA 9.0 8.8 9.3 8.9 mg/dL 8.4 - 10.2 PHOS 3.5 mg/dL 2.3 - 4.7 eGFR (CKD-EPI) 20.0 24.0 23.0 32.0 SEE EVAL Ref: See Eval ---- CARDIAC ---- PLASMA Mar 06 December 03 December 03 Reference 2024 2024 2024 11:30 13:45 13:45 Units Ranges BNP 205 H 225 H pg/mL 0 - 100 Called to review lab results noting increase in BUN/SCr and decrease in BNP. Instructed to decrease furosemide from 40 mg daily to 40 mg daily PRN for weight gain > 3 lbs/day or > 5 lbs/week or for s/sx of fluid such as ankle swelling. voiced understanding. Will f/u as scheduled. /jack/ Kami Mcginnis, PharmD, BCPS [employer] - Cardiology Signed: 03/07/2025 15:21 Receipt Acknowledged By: 03/08/2025 14:15 /jack/ GARCIA BRUNNER, MSN, RN-BC [employer] --- Original Document --- 03/04/25 CARDIOLOGY PHARMACOTHERAPY TELEPHONE NOTE: ROBBIE HUANG JR is an 84 year old WHITE MALE who was contacted via telephone in regards to recent hospitalization with heart failure exacerbation (dc'd 12/31/24). confirms increasing furosemide from 20 mg to 40 mg PRN. He says he has been using it every day. He thought blood bank manager instructed him to take daily. Current Cardiac Regimen: 1. amlodipine 10 mg daily 2. clopidogrel 75 mg daily 3. empagliflozin 10 mg every morning 4. furosemide 40 mg daily PRN weight gain/fluid 5. metoprolol succinate 25 mg daily 6. rosuvastatin 10 mg daily Medication adherence: organizes his own medications, uses weekly supply chain planner taken extra doses or missed doses of medication? (x) Yes ( ) No has been taking PRN furosemide daily Previous cardiac medications: carvedilol dc'd 2021, metoprolol tartrate dc'd 2018, ramipril dc'd 2018, simvastatin dc'd 2017, atorvastatin (10 mg) dc'd 2008 due to myalgias Foreseeable Barriers to adherence: [place] enrolled in [facility] (x) Yes ( ) No Does patient [...] (-) Paroxysmal Nocturnal Dyspnea (~) Peripheral edema*: can feel a little swelling in ankles at night if he is on his feet a lot during the day, no LE edema in the morning (-) Angina, rest or exertional (-) Palpitations (+) Nocturia: 3-4x/night (-) Additional Diuretic Use *noticed leg swelling from the knees down prior to admission Social History: Alcohol: none Tobacco Use: none 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[employer]), recently started walking again, currently about 1 [...] ROBBIE HUANG Disease(s): CHF, Hypertension Date Range: 02/09/2025 - 03/04/2025 [facility] Vitals Report Reading Date Sys/[place] BP-HR Weight 03/04/25 134/69 (09:18) 53 (09:18) 177.0 (09:19) 03/03/25 127/68 (21:55) 56 (21:55) 177.8 (10:54) 03/03/25 123/63 (10:53) 60 (10:53) 03/02/25 132/63 (09:34) 52 (09:34) 179.6 (09:35) 03/01/25 127/64 (22:19) 57 (22:19) 181.6 (08:12) 03/01/25 125/68 (08:12) 55 (08:12) 02/28/25 119/67 (09:27) 52 (09:27) 179.6 (09:27) 02/27/25 134/67 (08:48) 53 (08:48) 178.8 (08:48) 02/26/25 128/61 (21:54) 58 (21:54) 179.2 (09:47) 02/26/25 127/64 (09:46) 51 (09:46) 02/25/25 128/66 (09:04) 54 (09:04) 178.4 (09:05) 02/24/25 132/65 (10:01) 56 (10:01) 178.4 (10:01) 02/23/25 130/66 (20:08) 62 (20:08) 178.4 (09:58) 02/23/25 121/70 (09:57) 52 (09:57) 02/22/25 115/60 (21:17) 60 (21:17) 178.0 (10:04) 02/22/25 134/68 (10:03) 57 (10:03) 02/21/25 128/61 (10:47) 53 (10:47) 179.4 (10:48) 02/20/25 124/63 (09:09) 51 (09:09) 178.6 (09:10) 02/19/25 127/65 (21:34) 57 (21:34) 179.6 (10:44) 02/19/25 128/71 (10:44) 51 (10:44) 02/18/25 129/94 (09:13) 51 (09:13) 178.6 (09:15) 02/17/25 128/65 (10:51) 54 (10:51) 178.2 (10:52) 02/16/25 125/67 (20:56) 68 (20:56) 177.2 (10:07) 02/16/25 118/63 (10:06) 52 (10:06) 02/15/25 124/70 (21:46) 61 (21:46) 178.8 (09:23) 02/15/25 128/71 (09:23) 52 (09:23) 02/14/25 120/71 (09:40) 56 (09:40) 02/13/25 129/73 (11:04) 54 (11:04) 176.6 (11:05) 02/12/25 127/63 (21:17) 69 (21:17) 177.6 (10:11) 02/12/25 137/71 (10:11) 56 (10:11) 02/11/25 133/69 (09:46) 57 (09:46) 178.6 (09:46) 02/10/25 136/108 (10:03) 50 (10:03) 178.8 (10:05) 02/09/25 134/63 (22:09) 56 (22:09) 178.4 (10:11) 02/09/25 134/51 (10:11) 52 (10:11) [facility] Average Report Sys/[place] BP-HR Weight Average 128/68 56 178.6 High 137/108 69 181.6 Low 115/51 50 176.6 PREVIOUS ENCOUNTERS Date Range: 01/24/2025 - 02/08/2025 [facility] Vitals [...] 142/85 60 182.2 Low 114/59 50 177.4 Date Range: 01/18/2025 - 01/23/2025 [facility] Vitals [...] 40MG TAB TAKE ONE TABLET BY MOUTH EVERY MORNING HOLD NEEDED FOR WEIGHT GAIN GREATER THAN 3 LBS PER DAY OR GREATER THAN 5 LBS PER WEEK OR FOR SIGNS AND SYMPTOMS OF INCREASED FLUID Indication: FOR FLUID 3) METOPROLOL SUCCINATE 25MG [...] Volume: presumed euvolemic per s/sx and weights; has been taking furosemide daily instead of PRN. Requested to monitor for weight gain > 3 lbs/day or > 5 lbs/week as well as s/sx of fluid. Will check P1/BNP. - GDMT: RAASi: none due to renal function currently however awaiting nephrology response on whether trial/initiation of sacubitril/valsartan manjula BB: metoprolol succinate 25 mg daily, not at target dose, will titrate as able, but likely limited by HRs SGLT2i: empagliflozin 10 mg every morning, continue MRA: none, defer due to eGFR <30 ml/min - [...] weights daily upon wakening and after voiding. [place] verbalized understanding and agreed with plan above. Advised to call if questions or concerns prior to next follow up. Time spent on phone with : 13 minutes Follow-up: via telephone ~ 2 weeks Alert to [facility]: Please schedule VETO JEFFERSON PHARMD PHONE visit for 03/18/25 @ 2408. Thank you PBM PharmD Pharmacotherapy Rem V12: PHARMACIST INTERVENTIONS: HEART FAILURE Medication monitoring, no dosage change required, continue to monitor and assess /jack/ Kami Mcginnis PharmD, [facility] Clinical [employer] - Cardiology Signed: 03/05/2025 22:32 Receipt Acknowledged By: 03/07/2025 11:02 /jack/ KAMI Denis-D [facility] Mar 04, 2025 01:31 PM PHARMACY TELEPHONE ENCOUNTER NOTE: LOCAL TITLE: CARDIOLOGY PHARMACOTHERAPY TELEPHONE NOTE STANDARD TITLE: PHARMACY TELEPHONE ENCOUNTER NOTE DATE OF NOTE: MAR 04, 2025@13:31 ENTRY DATE: MAR 04, 2025@13:32:01 AUTHOR: KAMI MCGINNIS EXP COSIGNER: URGENCY: STATUS: COMPLETED CARDIOLOGY PHARMACOTHERAPY TELEPHONE NOTE Has ADDENDA ROBBIE HUANGHALI is an 84 year old WHITE MALE who was contacted via telephone in regards to recent hospitalization with heart failure exacerbation (dc'd 12/31/24). [place] confirms increasing furosemide from 20 mg to 40 mg PRN. He says he has been using it every day. He thought blood bank manager instructed him to take daily. Current Cardiac Regimen: 1. amlodipine 10 mg daily 2. clopidogrel 75 mg daily 3. empagliflozin 10 mg every morning 4. furosemide 40 mg daily PRN weight gain/fluid 5. metoprolol succinate 25 mg daily 6. rosuvastatin 10 mg daily Medication adherence: organizes his own medications, uses weekly supply chain planner taken extra doses or missed doses of medication? (x) Yes ( ) No has been taking PRN furosemide daily Previous cardiac medications: carvedilol dc'd 2021, metoprolol tartrate dc'd 2018, ramipril dc'd 2018, simvastatin dc'd 2016, atorvastatin (10 mg) dc'd 2008 due to myalgias Foreseeable Barriers to adherence: enrolled in [facility] (x) Yes ( ) No Does patient have weight scale? (x) Yes ( ) No Does patient have BP cuff? 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[employer]), recently started walking again, currently about 1 [...] ROBBIE HUANG Disease(s): CHF, Hypertension Date Range: 02/09/2025 - 03/04/2025 [facility] Vitals Report Reading Date Sys/[place] BP-HR Weight 03/04/25 134/69 (09:18) 53 (09:18) 177.0 (09:19) 03/03/25 127/68 (21:55) 56 (21:55) 177.8 (10:54) 03/03/25 123/63 (10:53) 60 (10:53) 03/02/25 132/63 (09:34) 52 (09:34) 179.6 (09:35) 03/01/25 127/64 (22:19) 57 (22:19) 181.6 (08:12) 03/01/25 125/68 (08:12) 55 (08:12) 02/28/25 119/67 (09:27) 52 (09:27) 179.6 (09:27) 02/27/25 134/67 (08:48) 53 (08:48) 178.8 (08:48) 02/26/25 128/61 (21:54) 58 (21:54) 179.2 (09:47) 02/26/25 127/64 (09:46) 51 (09:46) 02/25/25 128/66 (09:04) 54 (09:04) 178.4 (09:05) 02/24/25 132/65 (10:01) 56 (10:01) 178.4 (10:01) 02/23/25 130/66 (20:08) 62 (20:08) 178.4 (09:58) 02/23/25 121/70 (09:57) 52 (09:57) 02/22/25 115/60 (21:17) 60 (21:17) 178.0 (10:04) 02/22/25 134/68 (10:03) 57 (10:03) 02/21/25 128/61 (10:47) 53 (10:47) 179.4 (10:48) 02/20/25 124/63 (09:09) 51 (09:09) 178.6 (09:10) 02/19/25 127/65 (21:34) 57 (21:34) 179.6 (10:44) 02/19/25 128/71 (10:44) 51 (10:44) 02/18/25 129/94 (09:13) 51 (09:13) 178.6 (09:15) 02/17/25 128/65 (10:51) 54 (10:51) 178.2 (10:52) 02/16/25 125/67 (20:56) 68 (20:56) 177.2 (10:07) 02/16/25 118/63 (10:06) 52 (10:06) 02/15/25 124/70 (21:46) 61 (21:46) 178.8 (09:23) 02/15/25 128/71 (09:23) 52 (09:23) 02/14/25 120/71 (09:40) 56 (09:40) 02/13/25 129/73 (11:04) 54 (11:04) 176.6 (11:05) 02/12/25 127/63 (21:17) 69 (21:17) 177.6 (10:11) 02/12/25 137/71 (10:11) 56 (10:11) 02/11/25 133/69 (09:46) 57 (09:46) 178.6 (09:46) 02/10/25 136/108 (10:03) 50 (10:03) 178.8 (10:05) 02/09/25 134/63 (22:09) 56 (22:09) 178.4 (10:11) 02/09/25 134/51 (10:11) 52 (10:11) [facility] Average Report Sys/[place] BP-HR Weight Average 128/68 56 178.6 High 137/108 69 181.6 Low 115/51 50 176.6 PREVIOUS ENCOUNTERS Date Range: 01/24/2025 - 02/08/2025 [facility] Vitals [...] 142/85 60 182.2 Low 114/59 50 177.4 Date Range: 01/18/2025 - 01/23/2025 [facility] Vitals [...] 40MG TAB TAKE ONE TABLET BY MOUTH EVERY MORNING HOLD NEEDED FOR WEIGHT GAIN GREATER THAN 3 LBS PER DAY OR GREATER THAN 5 LBS PER WEEK OR FOR SIGNS AND SYMPTOMS OF INCREASED FLUID Indication: FOR FLUID 3) METOPROLOL SUCCINATE 25MG [...] Volume: presumed euvolemic per s/sx and weights; has been taking furosemide daily instead of PRN. Requested to monitor for weight gain > 3 lbs/day or > 5 lbs/week as well as s/sx of fluid. Will check P1/BNP. - GDMT: RAASi: none due to renal function currently however awaiting nephrology response on whether trial/initiation of sacubitril/valsartan manjula BB: metoprolol succinate 25 mg daily, not at target dose, will titrate as able, but likely limited by HRs SGLT2i: empagliflozin 10 mg every morning, continue MRA: none, defer due to eGFR <30 ml/min - [...] up. Time spent on phone with : 13 minutes Follow-up: via telephone ~ 2 weeks Alert to [facility]: Please schedule VETO CARDIO PHARMD PHONE visit for 03/18/25 @ [phone]. Thank you PBM PharmD Pharmacotherapy Rem V12: PHARMACIST INTERVENTIONS: HEART FAILURE Medication monitoring, no dosage change required, continue to monitor and assess /jack/ Kami Mcginnis PharmD, [facility] Clinical Operations Support Profession[employer] - Cardiology Signed: 03/05/2025 22:32 Receipt Acknowledged By: 03/07/2025 11:02 /jack/ Obinna DODSON 03/07/2025 ADDENDUM STATUS: COMPLETED ---- CHEMISTRY PLASMA PROFILE ---- PLASMA Mar 06 Jan 28 Jan 11 Dec 31 Reference 2024 2024 2024 2024 11:30 14:20 09:53 Units Ranges NA 139 142 143 138 mmol/L 136 - 145 K 4.9 4.5 4.7 4.4 mmol/L 3.5 - 5.1 CL 104 109 H 107 105 mmol/L 98 - 107 CO2 25.0 25.0 25.0 25.0 mmol/L 22 - 29 GLUC 101 H 91 105 H 94 mg/dl 74 - 100 UN 48.0 H 38.0 H 46.0 H 31.0 H mg/dL 9 - 25 CREAT 2.98 H 2.55 H 2.62 H 2.04 H mg/dL .72 - 1.25 eGFR SEE EVAL Ref: See Eval ANI GAP 10.0 8.0 11.0 8.0 mEq/L 3 - 19 ALB 4.1 g/dL 3.5 - 5.2 CA 9.0 8.8 9.3 8.9 mg/dL 8.4 - 10.2 PHOS 3.5 mg/dL 2.3 - 4.7 eGFR (CKD-EPI) 20.0 24.0 23.0 32.0 SEE EVAL Ref: See Eval ---- CARDIAC ---- PLASMA Mar 06 December 03 December 03 Reference 2024 2024 2024 11:30 13:45 13:45 Units Ranges BNP 205 H 225 H pg/mL 0 - 100 Called to review lab results noting increase in BUN/SCr and decrease in BNP. Instructed to decrease furosemide from 40 mg daily to 40 mg daily PRN for weight gain > 3 lbs/day or > 5 lbs/week or for s/sx of fluid such as ankle swelling. [place] voiced understanding. Will f/u as scheduled. /jack/ Kami Mcginnis, PharmD, BCPS [employer] - Cardiology Signed: 03/07/2025 15:21 Receipt Acknowledged By: * AWAITING SIGNATURE * GARCIA BRUNNER LAUREN N [place]-CDD [facility]
--- OUTSIDE RECORDS SUMMARY | 2025-03-17 17:46 | XMS_ITS | Continuity of Care Document ---
Author Name [facility] Organization [facility] Care Team Providers Care Printing Plate Setter Name Role Phone [facility] Unavailable Unavailable Problems Combined list of problems from Department of Defense and Veterans Affairs facilities. It does not include entries that were removed or entered in error. 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 Active Condition [place] Coronary artery disease (SNOMED CT 86511675) Active Condition Jun 01, 2007 Entered By: DALTON SERRANO Comment: s/p [place] 05/26 (stents)Jul 06, 2007 Entered By: DALTON SERRANO Comment: CHF (EF 40-45%) on ECHO 07/03/07De 2006 Entered By: DALTON SERRANO Comment: no reversible defect on stress test 05/31 [facility] Family h/o Cancer of GI Tract Active Condition [facility] Hearing loss (SNOMED CT 64020885) Active Condition [facility] History of calculus of kidney Active Condition [facility] History of cholecystectomy Active Condition [facility] History of rheumatic fever Active Condition Jun 01, 2007 Entered By: DALTON SERRANO Comment: at age 6 [facility] Interstitial lung disease Active Condition [facility] Long-term current use of antiplatelet drug Active Condition [facility] Overweight Active Condition [facility] Pure hypercholesterolemia Active Condition [facility] Abscess * (ICD-9-CM 682.9) Inactive Condition 02/19/2009 [facility] Hyperglycemia Inactive Condition 06/07/2013 [facility] Knee Pain Inactive Condition 05/26/2011 MARI NLian [facility] Proteinuria Inactive Condition 06/15/2022 ANIYAH MURRAY [facility] Diagnosis: ICD-10-CM I50.22 Chronic systolic (congestive) heart failure Active Diagnosis [facility] Diagnosis: ICD-10-CM I10 Essential (primary) hypertension Active Diagnosis [facility] Diagnosis: ICD-10-CM Z71.9 Counseling, unspecified Active Diagnosis [facility] Diagnosis: ICD-10-CM J84.9 Interstitial pulmonary disease, unspecified [facility] Diagnosis: ICD-10-CM I12.9 Hypertensive chronic kidney disease w stg 1-4/unsp chr kdny Active Diagnosis [facility] Diagnosis: ICD-10-CM I13.0 Hyp hrt & chr kdny dis w hrt fail and stg 1-4/unsp chr kdny Active Diagnosis [facility] Diagnosis: ICD-10-CM Z51.81 Encounter for therapeutic drug level monitoring Active Diagnosis [facility] Diagnosis: ICD-10-CM Z75.8 Oth prob related to medical facilities and oth health care Active Diagnosis [facility] Admit Reason: CAD Active Diagnosis [facility] Diagnosis: ICD-10-CM R06.00 Dyspnea, unspecified [facility] Diagnosis: ICD-10-CM I20.9 Angina pectoris, unspecified Active [facility] Diagnosis: ICD-10-CM R06.09 Other forms of dyspnea Active Diagnosis [facility] Diagnosis: ICD-10-CM Z03.89 Encntr for obs for oth suspected diseases and cond ruled out [facility] Diagnosis: ICD-10-CM R76.0 Raised antibody titer Active Diagnosis [facility] Diagnosis: ICD-10-CM N13.39 Other hydronephrosis Active Diagnosis [facility] Diagnosis: ICD-10-CM Z71.89 Other specified counseling Active Diagnosis [facility] Diagnosis: ICD-10-CM Z79.02 intermediate manager (current) use of antithrombotics/antipla telets Active Diagnosis [facility] Diagnosis: ICD-10-CM J84.89 Other specified interstitial pulmonary diseases Active Diagnosis [facility] Diagnosis: ICD-10-CM Z13.83 Encounter for screening for respiratory disorder NEC Active Diagnosis [facility] Diagnosis: ICD-10-CM N18.4 Chronic kidney disease, stage 4 (severe) Active Diagnosis [facility] Diagnosis: ICD-10-CM 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 Active Diagnosis [facility] Diagnosis: ICD-10-CM I25.10 Athscl heart disease of viejas coronary artery w/o ang pctrs Active Diagnosis [facility] Diagnosis: ICD-10-CM L57.0 Actinic keratosis Active Diagnosis [facility] Diagnosis: ICD-10-CM R00.2 Palpitations Active Diagnosis [facility] Diagnosis: ICD-10-CM R51.9 Headache, unspecified Active Diagnosis [facility] Diagnosis: ICD-10-CM Z13.6 Encounter for screening for cardiovascular disorders Active Diagnosis [facility] Diagnosis: ICD-10-CM I11.0 Hypertensive heart disease with heart failure Active Diagnosis [facility] Diagnosis: ICD-10-CM E11.22 Type 2 diabetes mellitus w diabetic chronic kidney disease Active [facility] Diagnosis: ICD-10-CM L82.1 Other seborrheic keratosis Active Diagnosis [facility] Diagnosis: ICD-10-CM G45.9 Transient cerebral ischemic attack, unspecified Active Diagnosis [facility] Diagnosis: ICD-10-CM R29.810 Facial weakness Active Diagnosis [facility] Diagnosis: ICD-10-CM N18.5 Chronic kidney disease, stage 5 Active [facility] Diagnosis: ICD-10-CM Z46.1 Encounter for fitting and adjustment of hearing aid Active Diagnosis [facility] Diagnosis: ICD-10-CM D48.5 Neoplasm of uncertain behavior of skin Active Diagnosis [facility] Medications Combined list of outpatient medications from Department of Defense and Veterans Affairs facilities.Medications provided include 1) outpatient medications from the last 15 months, and 2) patient-reported medications. Medication Details Route Status Patient Instructions Prescription Expires Prescription Number Last Dispense Date Ordering Provider Order Date Order Qty Source AMLODIPINE BESYLATE 10MG TAB TAKE ONE TABLET BY MOUTH DAILY ORAL ACTIVE IMELDA COBB R 2023 [place] [facility] AML[facility]IP[facility] BESYLATE 2.5MG TAB TAKE ONE TABLET BY MOUTH DAILY FOR BLOOD PRESSURE /HEART -DO NOT DRINK GRAPEFRU IT JUICE WHILE ON THIS DRUG ORAL DISCONT INUED (EDIT) 07/08/2024 [id number] [place] YAO 2023 30 [place] [facility] AMLODIPINE BESYLATE 5MG TAB TAKE ONE TABLET BY MOUTH DAILY FOR BLOOD PRESSURE /HEART -DO NOT DRINK GRAPEFRU IT JUICE WHILE ON THIS DRUG ORAL DISCONT INUED BY PROVIDE R 06/29/2025 [id number] IMELDA COBB R 2024 30 [place] [facility] [place] AMLODIPINE BESYLATE 5MG TAB TAKE ONE TABLET BY MOUTH DAILY FOR BLOOD PRESSURE /HEART -DO NOT DRINK GRAPEFRU IT JUICE WHILE ON THIS DRUG ORAL DISCONT INUED BY PROVIDE R 06/28/2025 [id number] IMELDA COBB R 2023 30 [place] [facility] AMOXICILLIN TRIHYDRATE 500MG CAP TAKE 1 CAPSULE BY MOUTH THREE TIMES A DAY ORAL ACTIVE Raul ANDERSON 2024 [place] CHOLECALCIF JUNIOR 25MCG (1,000UNIT) TAB TAKE ONE TABLET BY MOUTH DAILY ORAL ACTIVE IMELDA COBB 2010 [place] [facility] [place] CLOPIDOGREL BISULFATE 75MG TAB TAKE ONE TABLET BY MOUTH DAILY ORAL ACTIVE IMELDA COBB 2023 [place] [facility] [place] CYANOCOBALA MIN 1000MCG TAB TAKE ONE TABLET BY MOUTH DAILY ORAL ACTIVE Raul ANDERSON 2024 [place] EMPAGLIFLOZ IN 10MG TAB TAKE ONE TABLET BY MOUTH EVERY MORNING PROTEINU ARIANNA ORAL ACTIVE 02/01/2026 [id number] Mimi LESLIEHONY P 2024 90 [place] EMPAGLIFLOZ IN 10MG TAB TAKE ONE TABLET BY MOUTH EVERY MORNING PROTEINU ARIANNA ORAL DISCONT INUED 12/06/2025 [id number] IMELDA COBB 2024 90 [place] [facility] [place] EMPAGLIFLOZ IN 10MG TAB TAKE ONE TABLET BY MOUTH EVERY MORNING PROTEINU ARIANNA ORAL DISCONT INUED 12/06/2024 [id number] POLA CHOW 2023 90 [place] FUROSEMIDE 20MG TAB TAKE ONE TABLET BY MOUTH DAILY NEEDED FOR FLUID TAKE IN THE MORNING ORAL DISCONT INUED (EDIT) 02/01/2026 [id number] 5 Mimi LESLIE NTHONY P 2024 90 [place] FUROSEMIDE 40MG TAB TAKE ONE TABLET BY MOUTH EVERY MORNING NEEDED FOR WEIGHT GAIN GREATER THAN 3 LBS PER DAY OR GREATER THAN 5 LBS PER WEEK OR FOR SIGNS AND SYMPTOMS OF INCREASE D FLUID FOR WEIGHT GAIN GREATER THAN 3 LBS PER DAY OR GREATER THAN 5 LBS PER WEEK OR FOR SIGNS AND SYMPTOMS OF INCREASE D FLUID ORAL HOLD 02/09/2026 [id number] 5 SANJUANITA MCGINNIS 2024 90 [place] FUROSEMIDE 40MG TAB TAKE ONE TABLET BY MOUTH DAILY FOR FLUID- TAKE IN THE MORNING ORAL DISCONT INUED (EDIT) 01/01/2026 [id number] 5 KEYANNA EDMONDSON 2024 90 [place] LEVOCETIRIZ INE DIHYDROCHLO RIDE 5MG TAB TAKE ONE TABLET BY MOUTH DAILY ORAL ACTIVE Raul ANDERSON 2024 [place] METOPROLOL SUCCINATE 25MG TAB,SA TAKE ONE TABLET BY MOUTH DAILY FOR HEART FAILURE ORAL ACTIVE 01/01/2026 [id number] 5 KEYANNA EDMONDSON 2024 90 [place] MULTIVIT/OP HTH AREDS2/LUTE IN/ZEAXANTH IN CAP/TAB TAKE 1 SOFTGEL BY MOUTH TWICE A DAY AFTER MEALS ORAL ACTIVE IMELDA COBB R 2018 [place] [facility] ROSUVASTATI N TAB 10MG MOUTH DAILY ORAL ACTIVE IMELDA COBB R 2023 [place] [facility] Allergies, Adverse Reactions, Alerts Combined list of allergies from Department of Defense and [facility] Affairs facilities. It does not include entries that were removed or entered in error. Substance Category Reaction Severity Reaction type Status Date Reported Comments Source Aspirin Drug allergy (disorder) Eruption of skin active 7 [facility] ASPIRIN Propensity to adverse reactions to drug (finding) Eruption active 7 [facility] ATORVASTATIN Propensity to adverse reactions to drug (finding) Muscle pain active 9 [facility] Atorvastatin Calcium Drug allergy (disorder) Myalgias active 9 [facility] Immunizations Combined list of available immunizations from the Department of Defense and [facility] Affairs facilities. Immunization Series Date Given Administered By Site Reaction Lot Number CVX Code Drug Bread Panner Status Comments Source PNEUMOCOCCAL CONJUGATE PCV20, POLYSACCHARID E [id number] CONJUGATE, ADJUVANT, PF 2024 MAYURI BOLAÑOS LEFT ARM [id number] 216 complet ed [place], [place] TDAP 2023 IRAJ WOOD RIGHT DELTO ID [id number] 115 complet ed [facility] [place] INFLUENZA, HIGH-DOSE, TRIVALENT, PF 2023 IRAJ WOOD LEFT DELTO ID [id number] 135 complet ed [place], [place] [facility] INFLUENZA VACCINE, QUADRIVALENT, ADJUVANTED 6 2022 205 complet ed HISTORICA L INFORMATI ON - FROM OTHER REGISTRY, [place] [facility] INFLUENZA, HIGH-DOSE, QUADRIVALENT 5 2021 197 complet ed HISTORICA L INFORMATI ON - FROM OTHER REGISTRY, [place] [facility] [place] INFLUENZA, UNSPECIFIED FORMULATION 2021 88 complet ed [place] [facility] COVID-19 (PFIZER), MRNA, LNP-S, PF, 30 MCG/0.3 ML DOSE 3 2020 208 complet ed [place] [facility] [place] INFLUENZA VACCINE, QUADRIVALENT, ADJUVANTED 4 2020 205 complet ed HISTORICA L INFORMATI ON - FROM OTHER REGISTRY, [place] [facility] [place] INFLUENZA, UNSPECIFIED FORMULATION 2020 88 complet ed [place] [facility] COVID-19 (CreativeLive), MRNA, LNP-S, PF, 30 MCG/0.3 ML DOSE 2 2020 208 complet ed PFR; [id number]; 1 [place] COVID-19 (PFIZER), MRNA, LNP-S, PF, 30 MCG/0.3 ML DOSE 1 2020 208 complet ed PFR; [id number]; 1 [place] INFLUENZA, HIGH-DOSE, QUADRIVALENT 3 2019 197 complet ed HISTORICA L INFORMATI ON - FROM OTHER REGISTRY, [place] [facility] [place] INFLUENZA, UNSPECIFIED FORMULATION 2019 88 complet ed [place] [facility] INFLUENZA, HIGH DOSE SEASONAL 2 2018 135 complet ed HISTORICA L INFORMATI ON - FROM OTHER REGISTRY, [place] [facility] INFLUENZA, SEASONAL, INJECTABLE 2018 141 complet ed [place] [facility] INFLUENZA, INJECTABLE, QUADRIVALENT, PRESERVATIVE FREE 1 2017 150 complet ed HISTORICA L INFORMATI ON - FROM OTHER REGISTRY, [place] [facility] [place] INFLUENZA, SEASONAL, INJECTABLE 2017 141 complet ed [place] [facility] INFLUENZA A & B (HISTORICAL) 2016 88 complet ed [facility] [place] [facility] INFLUENZA A & B (HISTORICAL) 2015 88 complet ed [place] reports received in allergy clinic [place] [facility] [place] [id number] (HISTORICAL) 2015 133 complet ed [place] [facility] INFLUENZA A & B (HISTORICAL) 2014 88 complet ed [place] [facility] INFLUENZA A & B (HISTORICAL) 2013 88 complet ed [place] ZOSTER LIVE 2012 121 complet ed [place] [facility] INFLUENZA A & B (HISTORICAL) 2012 88 complet ed [place] [facility] TDAP (HISTORICAL) 2011 115 complet ed [place] [facility] TD(ADULT) UNSPECIFIED FORMULATION 2011 139 complet ed Completed Series, [place] [facility] INFLUENZA A & B (HISTORICAL) 2011 88 complet ed [place] [facility] FLU,3 YRS (HISTORICAL) 2010 88 complet ed [place] [facility] INFLUENZA A & B (HISTORICAL) 2009 88 complet ed [place] [facility] NOVEL INFLUENZA-H1N 1-09, ALL FORMULATIONS 2008 128 complet ed [facility] health dept [place] [facility] [place] INFLUENZA A & B (HISTORICAL) 2008 88 complet ed [place] [facility] INFLUENZA A & B (HISTORICAL) 2007 88 complet ed local [place] [facility] FLU,3 YRS (HISTORICAL) 2006 88 complet ed [place] [facility] PNEUMOCOCCAL, UNSPECIFIED FORMULATION 2006 109 complet ed [place] [facility] FLU,3 YRS (HISTORICAL) 2004 AMY YATES 88 complet ed [place] [facility] INFLUENZA A & B (HISTORICAL) 2003 88 complet ed [place] [facility] INFLUENZA A & B (HISTORICAL) 2002 88 complet ed [place] [facility] TD(ADULT) UNSPECIFIED FORMULATION 2001 139 complet ed [place] [facility] TD (ADULT), 2 LF TETANUS TOXOID, PRESERVATIVE FREE, ADSORBED 1 1996 09 complet ed HISTORICA L INFORMATI ON - FROM OTHER REGISTRY, [place] [facility] Results Combined list of recent chemistry, hematology and other laboratory results from Department of Defense and Veterans Affairs, ranging from 15 months to all on record, depending upon the facility. Order Name Results Value Reference Range Date Interpretation Specimen Comments Source BNP (MCCALL) NATRIURETI C PEPTIDE B [MASS/VOLU ME] IN SERUM OR PLASMA 205 pg/mL 0 - 100 03/06 H Specimen Type: PLASMA Comment: BNP results [...] Mar 05, 2025 10:33 PM Reporting Lab: [facility] GUAN [address] [address] Performing Lab: [id number] [address] [facility] PANEL 1 CREATININE [MASS/VOLU ME] IN SERUM OR PLASMA 2.98 mg/dL 0.72 - 1.25 03/06 H Specimen Type: PLASMA Comment: Estimated Glomerular [...] Mar 05, 2025 10:33 PM Reporting Lab: [facility] GU[facility] [address] [address] Performing Lab: [facility] GU[facility] [address] [address] [facility] PANEL 1 UREA NITROGEN [MASS/VOLU ME] IN SERUM OR PLASMA 48 mg/dL 03/06 H Specimen Type: PLASMA Comment: Estimated Glomerular [...] Mar 05, 2025 10:33 PM Reporting Lab: [facility] GU[facility] [address] [address] Performing Lab: [facility] GU[facility] [address] [address] [facility] PANEL 1 GLUCOSE [MASS/VOLU ME] IN SERUM OR PLASMA 101 mg/dL 74 - 100 03/06 H Specimen Type: PLASMA Comment: Estimated Glomerular [...] Mar 05, 2025 10:33 PM Reporting Lab: [facility] [address] [address] Performing Lab: [facility] GU[facility] [address] [address] [facility] PANEL 1 SODIUM [MOLES/VOL UME] IN SERUM OR PLASMA 139 mmol/L 136 - 145 03/06 Specimen Type: PLASMA Comment: Estimated Glomerular Filtration [...] Mar 05, 2025 10:33 PM Reporting Lab: [facility] [address] [address] Performing Lab: [facility] [address] [address] [facility] PANEL 1 POTASSIUM [MOLES/VOL UME] IN SERUM OR PLASMA 4.9 mmol/L 3.5 - 5.1 03/06 Specimen Type: PLASMA Comment: Estimated Glomerular Filtration [...] Mar 05, 2025 10:33 PM Reporting Lab: [facility] GU[facility] [address] [address] Performing Lab: KAMILA GAUN [address] [address] [facility] PANEL 1 CHLORIDE [MOLES/VOL UME] IN SERUM OR PLASMA 104 mmol/L 98 - 107 03/06 Specimen Type: PLASMA Comment: Estimated Glomerular Filtration [...] Mar 05, 2025 10:33 PM Reporting Lab: [facility] [address] [facility] [address] Performing Lab: [facility] [address] [facility] [address] [facility] PANEL 1 CARBON DIOXIDE, TOTAL [MOLES/VOL UME] IN SERUM OR PLASMA 25 mmol/L 03/06 Specimen Type: PLASMA Comment: Estimated Glomerular Filtration [...] Mar 05, 2025 10:33 PM Reporting Lab: [facility] [address] [facility] [address] Performing Lab: [facility] GU[facility] [address] [address] [facility] PANEL 1 CALCIUM [MASS/VOLU ME] IN SERUM OR PLASMA 9.0 mg/dL 8.4 - 10.2 03/06 Specimen Type: PLASMA Comment: Estimated Glomerular Filtration [...] Mar 05, 2025 10:33 PM Reporting Lab: [facility] [address] [place] [address] Performing Lab: K[facility]ILA GUAN [address] [address] [facility] PANEL 1 ANION GAP 3 IN SERUM OR PLASMA 10 meq/L 3 - 19 03/06 Specimen Type: PLASMA Comment: Estimated Glomerular Filtration [...] Mar 05, 2025 10:33 PM Reporting Lab: [facility] [address] [facility] [address] Performing Lab: [facility] [address] [facility] [address] [facility] PANEL 1 GLOMERULAR FILTRATION RATE/1.73 SQ M.PREDICTE D [VOLUME RATE/AREA] IN SERUM, PLASMA OR BLOOD BY CREATININE -BASED FORMULA (CKD-EPI 2020) 03/06 Specimen Type: PLASMA Comment: Estimated Glomerular Filtration [...] 05, 2025 10:33 PM Reporting Lab: [address] [address] Performing Lab: [place] [id number] [place] [address] CREATINI NE CREATININE [MASS/VOLU ME] IN URINE 92.7 mg/dL 01/28 Specimen Type: URINE No comment entered. Ordering Provider: ANDREW KING Report Released Date/Time: Oct 02, 2024 03:22 PM Reporting Lab: [address] [address] Performing Lab: [place] [phone] [facility] TOTAL PROTEIN PROTEIN [MASS/VOLU ME] IN URINE 15 mg/dL 0 - 14 01/28 H Specimen Type: URINE No comment entered. Ordering Provider: ANDREW KING Report Released Date/Time: Oct 02, 2024 03:22 PM Reporting Lab: [address] [address] Performing Lab: [address] [address] [facility] URINALYS IS COLOR OF URINE Light Yellow 01/28 Specimen Type: URINE Comment: Microscopic not indicated Ordering Provider: ANDREW KING Report Released Date/Time: Oct 02, 2024 03:22 PM Reporting Lab: [address] [address] Performing Lab: [address] [phone] [place] [address] URINALYS IS APPEARANCE OF URINE Clear 01/28 Specimen Type: URINE Comment: Microscopic not indicated Ordering Provider: ANDREW KING Report Released Date/Time: Oct 02, 2024 03:22 PM Reporting Lab: [address] [address] Performing Lab: [address] [address] [facility] URINALYS IS UROBILINOG EN [MASS/VOLU ME] IN URINE BY TEST STRIP Normalmg /dL 01/28 Specimen Type: URINE Comment: Microscopic not indicated Ordering Provider: ANDREW KING Report Released Date/Time: Oct 02, 2024 03:22 PM Reporting Lab: [address] [address] Performing Lab: [phone] [place] [address] URINALYS IS HEMOGLOBIN [PRESENCE] IN URINE BY TEST STRIP Negative 01/28 Specimen Type: URINE Comment: Microscopic not indicated Ordering Provider: ANDREW KING Report Released Date/Time: Oct 02, 2024 03:22 PM Reporting Lab: [address] [address] Performing Lab: [address] [phone] [place] [address] URINALYS IS BILIRUBIN. TOTAL [PRESENCE] IN URINE BY TEST STRIP Negative 01/28 Specimen Type: URINE Comment: Microscopic not indicated Ordering Provider: ANDREW KING Report Released Date/Time: Oct 02, 2024 03:22 PM Reporting Lab: [address] [address] Performing Lab: [address] [address] [facility] URINALYS IS KETONES [MASS/VOLU ME] IN URINE BY TEST STRIP Negative mg/dL 01/28 Specimen Type: URINE Comment: Microscopic not indicated Ordering Provider: ANDREW KING Report Released Date/Time: Oct 02, 2024 03:22 PM Reporting Lab: [place] [address] [facility] [address] Performing Lab: [place] [address] [facility] [address] [facility] URINALYS IS PROTEIN [MASS/VOLU ME] IN URINE BY TEST STRIP Negative mg/dL 01/28 Specimen Type: URINE Comment: Microscopic not indicated Ordering Provider: ANDREW KING Report Released Date/Time: Oct 02, 2024 03:22 PM Reporting Lab: JHONYAlex [address] [address] Performing Lab: [address] [address] [facility] URINALYS IS PH OF URINE BY TEST STRIP 5.5 4.5 - 8.0 01/28 Specimen Type: URINE Comment: Microscopic not indicated Ordering Provider: ANDREW KING Report Released Date/Time: Oct 02, 2024 03:22 PM Reporting Lab: [address] [address] Performing Lab: [address] [address] [facility] URINALYS IS NITRITE [PRESENCE] IN URINE BY TEST STRIP Negative 01/28 Specimen Type: URINE Comment: Microscopic not indicated Ordering Provider: ANDREW KING Report Released Date/Time: Oct 02, 2024 03:22 PM Reporting Lab: [address] [address] Performing Lab: [address] [address] [facility] URINALYS IS LEUKOCYTE ESTERASE [PRESENCE] IN URINE BY TEST STRIP Negative 01/28 Specimen Type: URINE Comment: Microscopic not indicated Ordering Provider: ANDREW KING Report Released Date/Time: Oct 02, 2024 03:22 PM Reporting Lab: [address] [address] Performing Lab: [address] [address] [facility] URINALYS IS SPECIFIC GRAVITY OF URINE 1.019 1.005 - 1.030 01/28 Specimen Type: URINE Comment: Microscopic not indicated Ordering Provider: ANDREW KING Report Released Date/Time: Oct 02, 2024 03:22 PM Reporting Lab: [address] [address] Performing Lab: [place] [phone] [place] [address] URINALYS IS GLUCOSE [MASS/VOLU ME] IN URINE BY TEST STRIP >1000mg/ dL 01/28 H Specimen Type: URINE Comment: Microscopic not indicated Ordering Provider: ANDREW KING Report Released Date/Time: Oct 02, 2024 03:22 PM Reporting Lab: [place] [phone] Performing Lab: [place] [phone] [place] [address] 25-OH VITAMIN D 25-HYDROXY VITAMIN D3 [MASS/VOLU ME] IN SERUM OR PLASMA 40.7 ng/mL 20.0 - 50.0 01/28 Specimen Type: SERUM Comment: The National Institutes of Health (NIH) recommendat ions state: <12 ng/mL - Deficient 20 - 50 ng/mL - Optimal Levels - adequate for most people. >50 ng/mL - Increased risk of hypercalciu arianna/other health problems - clinical correlation is required. These reference ranges represent clinical decision values rather than population- based reference values. Ordering Provider: ANDREW KING Report Released Date/Time: Oct 02, 2024 03:22 PM Reporting Lab: [place] [phone] Performing Lab: [place] [phone] [place] [address] PTH INTACT (MCCALL) PARATHYRIN .INTACT [MASS/VOLU ME] IN SERUM OR PLASMA 130.0 pg/mL 8.7 - 77.1 01/28 H Specimen Type: PLASMA Comment: For intraoperat carissa testing samples drawn 10 minutes post resection should decrease >50% from the highest baseline. STAT assay time 18 minutes. Dialysis patients are typically maintained by using multiples of the reference range upper limit: this is the Mccall assay, a 2nd generation intact PTH method. Hemolysis and high levels of protein can interfere. Heterophili c antibodies can interfere. Ordering Provider: ANDREW KING Report Released Date/Time: Oct 02, 2024 03:22 PM Reporting Lab: [address] [address] Performing Lab: [place] [phone] [place] [address] CBC/PLT LEUKOCYTES [#/VOLUME] IN BLOOD BY AUTOMATED COUNT 6.5 10*3/uL 5.0 - 10.0 01/28 Specimen Type: BLOOD No comment entered. Ordering Provider: ANDREW KING Report Released Date/Time: Oct 02, 2024 03:22 PM Reporting Lab: [place] [phone] Performing Lab: [place] [phone] [place] [address] CBC/PLT ERYTHROCYT ES [#/VOLUME] IN BLOOD BY AUTOMATED COUNT 4.18 10*6/uL 4.6 - 6.2 01/28 L Specimen Type: BLOOD No comment entered. Ordering Provider: ANDREW KING Report Released Date/Time: Oct 02, 2024 03:22 PM Reporting Lab: [place] [phone] Performing Lab: [address] CBC/PLT HEMOGLOBIN [MASS/VOLU ME] IN BLOOD 12.4 g/dL 14.0 - 18.0 01/28 L Specimen Type: BLOOD No comment entered. Ordering Provider: ANDREW KING Report Released Date/Time: Oct 02, 2024 03:22 PM Reporting Lab: [place] [phone] Performing Lab: [place] [phone] [address] CBC/PLT HEMATOCRIT [VOLUME FRACTION] OF BLOOD BY AUTOMATED COUNT 39.2 42.0 - 52.0 01/28 L Specimen Type: BLOOD No comment entered. Ordering Provider: ANDREW KING Report Released Date/Time: Oct 02, 2024 03:22 PM Reporting Lab: [address] [address] Performing Lab: [phone] [place] [address] CBC/PLT MCV [ENTITIC VOLUME] BY AUTOMATED COUNT 93.8 fL 80.0 - 94.0 01/28 Specimen Type: BLOOD No comment entered. Ordering Provider: ANDREW KING Report Released Date/Time: Oct 02, 2024 03:22 PM Reporting Lab: [address] [address] Performing Lab: [place] [phone] [place] [address] CBC/PLT MCH [ENTITIC MASS] BY AUTOMATED COUNT 29.7 pg 27.0 - 31.0 01/28 Specimen Type: BLOOD No comment entered. Ordering Provider: ANDREW KING Report Released Date/Time: Oct 02, 2024 03:22 PM Reporting Lab: [address] [address] Performing Lab: [address] [phone] [place] [address] CBC/PLT MCHC [MASS/VOLU ME] BY AUTOMATED COUNT 31.6 g/dL 32.0 - 36.0 01/28 L Specimen Type: BLOOD No comment entered. Ordering Provider: ANDREW KING Report Released Date/Time: Oct 02, 2024 03:22 PM Reporting Lab: [address] [address] Performing Lab: [address] [address] [facility] CBC/PLT PLATELETS [#/VOLUME] IN BLOOD 212 10*3/uL 150 - 450 01/28 Specimen Type: BLOOD No comment entered. Ordering Provider: ANDREW KING Report Released Date/Time: Oct 02, 2024 03:22 PM Reporting Lab: [address] [address] Performing Lab: [place] [phone] [facility] CBC/PLT PLATELET MEAN VOLUME [ENTITIC VOLUME] IN BLOOD 10.7 fL 9.0 - 13.1 01/28 Specimen Type: BLOOD No comment entered. Ordering Provider: ANDREW KING Report Released Date/Time: Oct 02, 2024 03:22 PM Reporting Lab: [place] [phone] Performing Lab: [place] [phone] [facility] CBC/PLT ERYTHROCYT E DISTRIBUTI ON WIDTH [ENTITIC VOLUME] BY AUTOMATED COUNT 13.9 11.0 - 16.0 01/28 Specimen Type: BLOOD No comment entered. Ordering Provider: ANDREW KING Report Released Date/Time: Oct 02, 2024 03:22 PM Reporting Lab: [place] [phone] Performing Lab: [place] [phone] [facility] CBC/PLT NUCLEATED ERYTHROCYT ES/100 ERYTHROCYT ES IN BLOOD 0.0 0.0 - 0.0 01/28 Specimen Type: BLOOD No comment entered. Ordering Provider: ANDREW KING Report Released Date/Time: Oct 02, 2024 03:22 PM Reporting Lab: [place] [phone] Performing Lab: [place] [phone] [address] PHOSPHOR US PHOSPHATE [MASS/VOLU ME] IN SERUM OR PLASMA 3.5 mg/dL 2.3 - 4.7 01/28 Specimen Type: PLASMA Comment: Estimated Glomerular Filtration [...] Jan 17, 2025 09:57 AM Reporting Lab: [facility] [address] [address] Performing Lab: [place] [facility] [address] [address] [facility] ALBUMIN ALBUMIN [MASS/VOLU ME] IN SERUM OR PLASMA 4.1 g/dL 3.5 - 5.2 01/28 Specimen Type: PLASMA Comment: Estimated Glomerular Filtration [...] Jan 17, 2025 09:57 AM Reporting Lab: [facility] [address] [address] Performing Lab: [place] [address] [address] [facility] Vital Signs Combined list of inpatient and outpatient Vital Signs from Department of Defense and Veterans Affairs, ranging from 12 months to all on record, depending upon the facility. Vital Sign Value Date Comments Source SYSTOLIC BLOOD PRESSURE 128 02/05/2025 13:23:38 [facility] DIASTOLIC BLOOD PRESSURE 59 02/05/2025 13:23:38 [facility] PULSE OXIMETRY 98 % 02/05/2025 13:23:38 [facility] [place] WEIGHT 185.2 02/05/2025 13:23:38 [place] [facility] BMI 30 kg/m2 02/05/2025 13:23:38 [place] [facility] PAIN 0 02/05/2025 13:23:38 [place] [facility] TEMPERATURE 96.7 02/05/2025 13:23:38 [facility] PULSE 53 02/05/2025 13:23:38 [place] [facility] SYSTOLIC BLOOD PRESSURE 134 01/31/2025 16:41:34 [facility] DIASTOLIC BLOOD PRESSURE 66 01/31/2025 16:41:34 [place] PULSE OXIMETRY 96 % 01/31/2025 16:41:34 [facility] WEIGHT 186.2 01/31/2025 16:41:34 [place] [facility] BMI 30 kg/m2 01/31/2025 16:41:34 [place] [facility] PAIN 0 01/31/2025 16:41:34 [place] [facility] TEMPERATURE 97.9 01/31/2025 16:41:34 [facility] PULSE 60 01/31/2025 16:41:34 [place] [facility] SYSTOLIC BLOOD PRESSURE 124 01/11/2025 11:04:34 [facility] [facility] DIASTOLIC BLOOD PRESSURE 65 01/11/2025 11:04:34 [facility] [facility] PULSE 54 01/11/2025 11:04:34 [place] [facility] SYSTOLIC BLOOD PRESSURE 132 12/31/2024 04:20:00 [facility] DIASTOLIC BLOOD PRESSURE 75 12/31/2024 04:20:00 [facility] PULSE OXIMETRY 93 12/31/2024 04:20:00 [facility] PAIN 0 12/31/2024 04:20:00 [place] [facility] TEMPERATURE 97.4 12/31/2024 04:20:00 [facility] PULSE 64 12/31/2024 04:20:00 [place] [facility] RESPIRATION 18 12/31/2024 04:20:00 [facility] SYSTOL[facility] BLO[facility] PRESSURE 144 12/30/2024 07:09:00 [facility] DIASTOLIC BLOOD PRESSURE 73 12/30/2024 07:09:00 [facility] PULSE OXIMETRY 95 12/30/2024 07:09:00 [facility] 2 12/30/2024 07:09:00 [place] [facility] TEMPERATURE 97.8 12/30/2024 07:09:00 [facility] PULSE 76 12/30/2024 07[facility]09:00 [place] [facility] RESPIRATION 16 12/30/2024 07:09:00 [facility] Encounters Combined list of: 1) Encounters from [facility] Affairs facilities going backup to the last 18 months, not all [place] inpatient encounters are included; 2) Encounters from the Department of Defense facilities going backup to 280 months. Location Location Details Encounter Type Encounter Number Reason For Visit Attending Provider ADM Date DC Date Status Disposition Source [facility] OFFICE O/P EST MOD 30 MIN [id number] Diagnos is: ICD-10- CM D48.5 Neoplas m of uncerta in behavio r of skin GIRDLER,YO NG S 10/18 [place] Outpatient Encounter [id number] RONEL JURADO S 10/23 [place] [facility] CALL 5-10 MIN [id number] Diagnos is: ICD-10- CM Z71.89 Other specifi ed marriage and family counselor Fina Perez 10/25 [place] Outpatient Encounter [id number] 10/26 [place] 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 HEARING AID REPAIR/MOD IFYING [id number] Diagnos is: ICD-10- CM Z46.1 Encount er for fitting and adjustm ent of hearing aid ORLANDO HAQ 11/30 [place] OFFICE O/P EST MOD 30 MIN [id number] Diagnos is: ICD-10- CM N18.5 Chronic kidney disease , stage 5 Juan KING 01/30 [place] Outpatient Encounter [id number] 02/01 [place] [facility] Outpatient Encounter [id number] 02/16 [place] [facility] EMERGENCY DEPT VISIT LOW MDM [id number] Diagnos is: ICD-10- CM R29.810 Facial lupe jimmy BENWILLIAM- JONY OSORIO FAVIOLA 03/04 [place] Outpatient Encounter [id number] 03/04 [place] OFF/OP EST MAY X REQ PHY/QHP [id number] Diagnos is: ICD-10- CM R29.810 Facial lupe VICKEY Mahoney MY 03/05 [place] [facility] CASE MANAGEMENT [id number] Diagnos is: ICD-10- CM N18.4 Chronic kidney disease , stage 4 (severe ) ASHLYN GODINEZ 03/06 [place] [id number] Diagnos is: ICD-10- CM N18.4 Chronic kidney disease , stage 4 (severe ) [facility] JO[facility]PH[facility] VAZQUEZ 03/06 [place] OFF/OP CNSLTJ NEW/EST LOW 30 [id number] Diagnos is: ICD-10- CM N18.4 Chronic kidney disease , stage 4 (severe ) Mimi JOYCE S 03/06 [place] Outpatient Encounter [id number] 03/06 [place] OFF/OP EST MAY X REQ PHY/QHP [id number] Diagnos is: ICD-10- CM Z71.89 Other specifi ed marriage and family counselor VICKEY Hernandez MY 03/07 [place] [facility] CASE MANAGEMENT [id number] Diagnos is: ICD-10- CM N18.4 Chronic kidney disease , stage 4 (severe ) ASHLYN GODINEZ 03/13 [place] Outpatient Encounter [id number] 03/19 [place] Outpatient Encounter [id number] 03/21 [place] [facility] OFFICE O/P EST MOD 30 MIN [id number] Diagnos is: ICD-10- CM G45.9 Transie nt cerebra l ischemi c attack, unspeci fied DEMARCO YAO CIA 03/21 [place] [facility] OFF/OP EST MAY X REQ PHY/QHP [id number] Diagnos is: ICD-10- CM 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 Outpatient Encounter [id number] 04/05 [place] OFF/OP EST MAY X REQ PHY/QHP [id number] Diagnos is: ICD-10- CM Z71.89 Other specifi ed marriage and family counselor ing VICKEY WALTERS OMID 04/05 [place] 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 Outpatient Encounter [id number] 05/04 [place] EXT ECG>7D<15D REC SCAN A/R [id number] Diagnos is: ICD-10- CM Z13.6 Encount er for screeni ng for cardiov ascular disorde rs GEMMA BRYAN IG A 05/09 [place] Outpatient Encounter [id number] Diagnos is: ICD-10- CM Z03.89 Encntr for obs for oth suspect ed disease s and cond ruled out GARCIA BRUNNER M 05/10 [place] [facility] OFF/OP CNSLTJ NEW/EST LOW 30 [id number] Diagnos is: ICD-10- CM R51.9 Headach e, unspeci fied Fina MEDINA 05/10 [place] Outpatient Encounter [id number] Diagnos is: ICD-10- CM R00.2 Palpita CAROL Zimmerman R 05/17 [place] HC PRO PHONE CALL 5-10 MIN [id number] Diagnos is: ICD-10- CM Z71.89 Other specifi ed marriage and family counselor Dickinson M 05/18 [place] 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 w/o ang pctVERA Cantor 05/25 [place] [facility] Outpatient Encounter [id number] 05/28 [place] [facility] Outpatient Encounter [id number] 05/30 [place] [facility] HC PRO PHONE CALL 5-10 MIN [id number] Diagnos is: ICD-10- CM 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 JOSE BAJWA 05/30 [place] [facility] HC PRO PHONE CALL 11-20 MIN [id number] Diagnos is: ICD-10- CM 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 GARCIA BRUNNER 06/07 [place] [facility] Outpatient Encounter [id number] 06/11 [place] [facility] HC PRO PHONE CALL 5-10 MIN [id number] Diagnos is: ICD-10- CM I10 Essenti al (primar y) hyperte GARCIA Gupta 06/12 [place] [facility] HC PRO PHONE CALL 5-10 MIN [id number] Diagnos is: ICD-10- CM N18.4 Chronic kidney disease , stage 4 (severe ) VALERI STEVE DOUGKal S 06/15 [place] [facility] Outpatient Encounter [id number] Diagnos is: ICD-10- CM Z03.89 Encntr for obs for oth suspect ed disease s and cond ruled out GARCIA BRUNNER 06/15 [place] [facility] HC PRO PHONE CALL 11-20 MIN [id number] Diagnos is: ICD-10- CM I10 Essenti al (primar y) hyperte GARCIA Gupta 06/18 [place] [facility] BREATHING CAPACITY TEST [id number] Diagnos is: ICD-10- CM Z13.83 Encount er for screeni ng for respira tory disorde r NEC EDMUND MORTONW J 06/20 [place] OFFICE O/P NEW MOD 45 MIN [id number] Diagnos is: ICD-10- CM J84.89 Other specifi ed interst itial pulmona ry disease s CALVIN OLMOS ANDO 06/26 [place] OFFICE O/P EST MOD 30 MIN [id number] Diagnos is: ICD-10- CM Z79.02 [facility] (curren t) use of antithr ombotic s/antip latelet s Juan KING 06/26 [place] HC PRO PHONE CALL 11-20 MIN [id number] Diagnos is: ICD-10- CM I10 Essenti al (primar y) hyperte GARCIA Gupta 06/27 [place] [facility] HC PRO PHONE CALL 5-10 MIN [id number] Diagnos is: ICD-10- CM Z71.89 Other specifi ed marriage and family counselor KEVIN Estrada 06/27 [place] [facility] HC PRO PHONE CALL 5-10 MIN [id number] Diagnos is: ICD-10- CM I10 Essenti al (primar y) hyperte GARCIA Gupta 06/28 [place] [facility] Outpatient Encounter [id number] Diagnos is: ICD-10- CM Z03.89 Encntr for obs for oth suspect ed disease s and cond ruled out GARCIA BRUNNER 07/12 [place] [facility] HC PRO PHONE CALL 5-10 MIN [id number] [id number] Diagnos is: ICD-10- CM I10 Essenti al (primar y) hyperte daniele GARCIA BRUNNER 07/24 [place] [facility] Outpatient Encounter [id number] 07/24 [place] [facility] Outpatient Encounter [id number] 07/24 [place] [address] ASSMT&MGMT NQHP 5-10 [id number] [id number] Diagnos is: ICD-10- CM I10 Essenti al (primar y) hyperte daniele GARCIA BRUNNER 07/30 [place] [facility] OFFICE O/P EST MOD 30 MIN [id number] [id number] Diagnos is: ICD-10- CM J84.9 Interst itial pulmona ry disease , unspeci fied KRISTI NAIK 08/07 [place] Outpatient Encounter [id number] 08/10 [place] [facility] Outpatient Encounter [id number] Diagnos is: ICD-10- CM Z03.89 Encntr for obs for oth suspect ed disease s and cond ruled out GARCIA BRUNNER 08/15 [place] [facility] Outpatient Encounter [id number] 08/20 [place] [address] ASSMT&MGMT NQHP 11-20 [id number] [id number] Diagnos is: ICD-10- CM I10 Essenti al (primar y) hyperte socorrorehan GARCIA BRUNNER 08/28 [place] [address] ASSMT&MGMT NQHP 5-10 [id number] [id number] Diagnos is: ICD-10- CM N13.39 Other hydrone phrosis VALERI STEVE 09/03 [place] [facility] Outpatient Encounter [id number] 09/11 [place] [facility] Outpatient Encounter [id number] 09/19 [place] [facility] Outpatient Encounter [id number] Diagnos is: ICD-10- CM Z03.89 Encntr for obs for oth suspect ed disease s and cond ruled out GARCIA BRUNNER 09/20 [place] 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 GARCIA BRUNNER 10/15 [place] [facility] Outpatient Encounter [id number] Diagnos is: ICD-10- CM Z03.89 Encntr for obs for oth suspect ed disease s and cond ruled out GARCIA BRUNNER 10/19 [place] [facility] Outpatient Encounter [id number] Diagnos is: ICD-10- CM Z03.89 Encntr for obs for oth suspect ed disease s and cond ruled out GARCIA BRUNNER 10/22 [place] [facility] OFFICE O/P NEW LOW 30 MIN [id number] Diagnos is: ICD-10- CM R76.0 Raised antibod y titer BENJAMIN FOWLER 10/25 [place] [facility] Outpatient Encounter [id number] Diagnos is: ICD-10- CM Z03.89 Encntr for obs for oth suspect ed disease s and cond ruled out GARCIA BRUNNER 11/09 [place] [facility] Outpatient Encounter [id number] 11/09 [place] [address] ASSMT&MGMT NQHP 11-20 [id number] Diagnos is: ICD-10- CM I10 Essenti al (primar y) hyperte daniele GARCIA BRUNNER 11/15 [place] [address] ASSMT&MGMT NQHP 11-20 [id number] Diagnos is: ICD-10- CM I10 Essenti al (primar y) hyperte GARCIA Gupta 11/22 [place] [address] ASSMT&MGMT NQHP 5-10 [id number] Diagnos is: ICD-10- CM I10 Essenti al (primar y) hyperte socorrorehan GARCIA BRUNNER 11/27 [place] [address] ASSMT&MGMT NQHP 5-10 [id number] Diagnos is: ICD-10- CM R06.00 Dyspnea , unspeci fied POWER,VALERI BIE S 11/27 [place] [address] ASSMT&MGMT NQHP 11-20 [id number] Diagnos is: ICD-10- CM I10 Essenti al (primar y) hyperte nsion GARCIA BRUNNER 11/28 [place] [facility] OFFICE O/P EST HI 40 MIN [id number] Diagnos is: ICD-10- CM R06.09 Other forms of dyspnea VERA COBB R 12/03 [place] 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 TTE W/DOPPLER COMPLETE [id number] Diagnos is: ICD-10- CM R06.00 Dyspnea , unspeci CAROL Alonso R 12/06 [place] [address] ASSMT&MGMT NQHP 11-20 [id number] Diagnos is: ICD-10- CM I10 Essenti al (primar y) hyperte daniele GARCIA BRUNNER 12/11 [place] [address] ASSMT&MGMT NQHP 11-20 [id number] Diagnos is: ICD-10- CM I10 Essenti al (primar y) hyperte daniele GARCIA BRUNNER 12/13 [place] [facility] Outpatient Encounter [id number] 12/14 [place] [facility] Outpatient Encounter [id number] 12/14 [place] [facility] Outpatient Encounter [id number] Diagnos is: ICD-10- CM 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 GARCIA BRUNNER 12/20 [place] [address] ASSMT&MGMT NQHP 11-20 [id number] [id number] Diagnos is: ICD-10- CM I10 Essenti al (primar y) hyperte GARCIA Gupta 12/24 [place] [address] ASSMT&MGMT NQHP 5-10 [id number] [id number] Diagnos is: ICD-10- CM I10 Essenti al (primar y) hyperte GARCIA Gupta 12/25 [place] [address] ASSMT&MGMT NQHP 5-10 [id number] [id number] Diagnos is: ICD-10- CM I10 Essenti al (primar y) hyperte GARCIA Gupta 12/26 [place] [facility] [place] [facility] Inpatient Encounter [id number] 12/30 [place] [facility] [place] [facility] Outpatient Encounter [id number] 12/30 [place] [facility] [place] [facility] Inpatient Encounter [id number] Admit Reason: CHLOE CLIFTON 12/30 [place] [facility] [place] [facility] Inpatient Encounter [id number] 12/30 [place] [facility] [place] [facility] Inpatient Encounter [id number] 12/30 [place] [facility] [place] [facility] Inpatient Encounter [id number] 12/30 [place] [place] [facility] Inpatient Encounter [id number] 12/30 [place] [place] [facility] Inpatient Encounter [id number] 12/30 [place] [facility] [place] [facility] Inpatient Encounter [id number] 12/30 [place] [facility] [place] [facility] Inpatient Encounter [id number] 12/30 [place] [place] [facility] Inpatient Encounter [id number] 12/30 [place] [facility] Inpatient Encounter [id number] 12/31 [place] [facility] [place] [facility] Inpatient Encounter [id number] 12/31 [place] [facility] MTMS BY PHARM ADDL 15 MIN [id number] Diagnos is: ICD-10- CM Z51.81 Encount er for therape utic drug level monitor Alex Callaway 12/31 [place] [facility] CASE MANAGEMENT [id number] Diagnos is: ICD-10- CM Z75.8 Oth prob related to medical facilit ies and ot health care Jimmy YOST A 12/31 [place] Inpatient Encounter [id number] 12/31 [place] [facility] Inpatient Encounter [id number] 12/31 [place] [facility] Inpatient Encounter [id number] 12/31 [place] Inpatient Encounter [id number] 12/31 [place] [facility] ELECTROCAR DIOGRAM COMPLETE [id number] [id number] Diagnos is: ICD-10- CM 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 ELGENDY,IS LAU Y 12/31 [place] Inpatient Encounter [id number] 12/31 [place] [facility] DSCHRG MED/CURREN T MED MERGE [id number] Diagnos is: ICD-10- CM Z51.81 Encount er for therape utic drug level monitor xochilt HOUSEWESTLEY S 12/31 [place] IMMUNIZATI ON ADMIN [id number] Mimi BOLAÑOS G 12/31 [place] [facility] PH1 ASSMT&MGMT NQHP 11-20 [id number] Diagnos is: ICD-10- CM I10 Essenti al (primar y) hyperte GARCIA Gupta 01/01 [place] [facility] PH1 ASSMT&MGMT NQHP 5-10 [id number] Diagnos is: ICD-10- CM I13.0 Hyp hrt and chr kdny dis w hrt fail and stg 1-4/uns p chr VALERI López S 01/01 [place] 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 MTMI BY PHARM EST 15 MIN [id number] Diagnos is: ICD-10- CM I50.22 Chronic systoli c (conges tive) heart failure BELT,ARIS Cortez N 01/17 [place] [address] ASSMT&MGMT NQHP 11-20 [id number] [id number] Diagnos is: ICD-10- CM I10 Essenti al (primar y) hyperte IRASEMA GuptaCACHORRO Martinez 01/21 [place] 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 Outpatient Encounter [id number] 01/31 [place] [facility] OFFICE O/P EST HI 40 MIN [id number] [id number] Diagnos is: ICD-10- CM I50.22 Chronic systoli c (conges tive) heart failure ZHENLOBO L 01/31 [place] [facility] Outpatient Encounter [id number] 02/05 [place] 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 MTMS BY PHARM EST 15 MIN [id number] [id number] Diagnos is: ICD-10- CM I50.22 Chronic systoli c (conges tive) heart failure ARIS MCGINNIS 02/08 [place] [address] ASSMT&MGMT NQHP 11-20 [id number] Diagnos is: ICD-10- CM I10 Essenti al (primar y) hyperte GARCIA Gupta Juan 02/11 [place] [facility] ASSMT&MGMT NQHP 11-20 [id number] [id number] Diagnos is: ICD-10- CM I50.22 Chronic systoli c (conges tive) heart failure GARCIA BRUNNER 02/14 [place] [facility] Outpatient Encounter [id number] 02/20 [place] [facility] Outpatient Encounter [id number] Diagnos is: ICD-10- CM I10 Essenti al (primar y) hyperte IRASEMA GuptaCACHORRO Martinez 02/21 [place] [facility] Outpatient Encounter [id number] 91 03/04 [place] [facility] MTMS BY PHARM EST 15 MIN [id number] [id number] Diagnos is: ICD-10- CM I50.22 Chronic systoli c (conges tive) heart failure ARIS MCGINNIS N 03/04 [place] Social History Combined list of available smoking, tobacco, and other social history from Department of Defense and [facility] facilities. Social History Type Response Date Comment Source Tobacco smoking status [place] [facility] NEVER USED 05/10/2024 [facility] History of tobacco use [place]-TOBACCO QUIT 15 YRS OR MORE 05/25/2023 [facility] History of tobacco use [place]-TOBACCO QUIT 15 YRS OR MORE 06/18/2022 [facility] History of tobacco use [place]-TOBACCO FORMER USER 06/29/2021 [facility] 07/09/2019 [facility] of [facility] 08/24/2018 [facility] History of tobacco use V9 LIFETIME NON-USER OF TOBACCO 09/22/2017 [facility] History of tobacco use NON-TOBACCO USE INPATIENT 05/19/2017 [facility] History of tobacco use NON-TOBACCO USE INPATIENT 09/07/2016 [facility] History of tobacco use V9 LIFETIME NON-USER OF TOBACCO 12/15/2015 [facility] History of tobacco use V9 LIFETIME NON-USER OF TOBACCO 06/14/2014 [facility] History of tobacco use V9 LIFETIME NON-USER OF TOBACCO 06/07/2013 [facility] History of tobacco use V9 LIFETIME NON-USER OF TOBACCO 05/29/2012 [facility] History of tobacco use V9 LIFETIME NON-USER OF TOBACCO 11/22/2011 [facility] History of tobacco use V9 QUIT TOBACCO >7 YEARS AGO 10/23/2010 [facility] History of tobacco use V9 LIFETIME NON-USER OF TOBACCO 05/30/2007 [facility] History of tobacco use HF V9 CURRENT NON-SMOKER 04/21/2004 quit smoking about 30 yrs ago [facility] History of tobacco use HF V9 CURRENT NON-SMOKER 09/06/2002 QUIT SMOKING ABOUT 31 YRS AGO [facility] This section is an empty social history section. [facility] Plan of Care List of future care activities from Department of [facility] facilities. Additional future care activities may be listed in the Assessment and Plan section. Date/Time Care Activity Care Activity Detail Facili ty 03/18/2025 AMBULATORY - NONE AMBULATORY - NONE [facility]
[2025-03-17 17:56] VITALS: BP 133/72; PULSE 61; RESP 20; TEMP 36.9; O2SAT 93; BMI 26.9
--- NOTE | 2025-03-17 17:57 | ECG_ITS ---
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
--- NOTE | 2025-03-17 17:57 | XR_ITS ---
PROCEDURE INFORMATION: Exam: XR Chest Exam date and time: 03/17/2025 6:11 PM Age: 84 years old Clinical indication: Shortness of breath; Additional info: Short of breath TECHNIQUE: Imaging protocol: Radiologic exam of the chest. Views: 1 view. COMPARISON: CR XR CHEST PORTABLE 12/30/2024 1:13 AM FINDINGS: Airway: Chronic tracheal deviation to the right. Lungs: Decreased lung volumes. No acute airspace process. Pleural spaces: Unremarkable. No pleural effusion. No pneumothorax. Heart/Mediastinum: Cardiomegaly. Bones/joints: Unremarkable. IMPRESSION: Cardiomegaly. No acute process.
--- NOTE | 2025-03-17 17:59 | ED_ITS ---
<Statement entered by Fina Xiao MD - 03/17/25 22:57> I was consulted by the EVAN, and we discussed the complexity of the problems being addressed. I approved the treatment and management plan for this patient's care in the emergency department, thus performing a substantive portion of the medical decision making. Fina Xiao MD, CLARA, FACEP Discharge Plan Disposition Patient Disposition: Home, Self-Care Prescriptions Prescriptions: New amoxicillin-pot clavulanate 875-125 mg tablet 1 tab PO BID Qty: 20 0RF dicyclomine 20 mg tablet 20 mg PO BID Qty: 10 0RF No Action amlodipine 10 mg tablet 10 mg PO DAILY empagliflozin 10 mg tablet 10 mg PO DAILY PreserVision AREDS-2 250-90-40-1 mg tablet,chewable 1 tab PO BID mecobalamin (vitamin B12) 1,000 mcg tablet,chewable 1,000 mcg PO DAILY cholecalciferol (vitamin D3) 25 mcg (1,000 unit) capsule 25 mcg PO DAILY prednisone 20 mg tablet 20 mg PO BID Qty: 14 0RF Rx Instructions: Take two tablets on days 1-4. Take one tablet daily on days 5-8. On days 9-12 take one half tablet. rosuvastatin 10 mg tablet See Rx Instructions .ROUTE .COMPLEX Qty: 90 0RF Dose Instruction: TAKE 1 TABLET BY MOUTH ONCE DAILY FOR CHOLESTEROL Rx Instructions: TAKE 1 TABLET BY MOUTH ONCE DAILY FOR CHOLESTEROL levocetirizine 5 mg tablet See Rx Instructions .ROUTE .COMPLEX Qty: 30 3RF Dose Instruction: TAKE 1 TABLET BY MOUTH ONCE DAILY Rx Instructions: TAKE 1 TABLET BY MOUTH ONCE DAILY clopidogrel 75 tablet 75 mg PO DAILY Referrals Follow up/Referrals: Woo Montelongo DO [Primary Care Provider, Family Practice] - See instructions Activity Restrictions/Add. Instructions Additional Instructions/Restrictions: Drink plenty of fluids, rest. Take meds as directed. Please follow-up with your PCP. Clinical Impressions Clinical Impression: Diverticulitis Instructions Patient Instructions: DI for Diverticulitis, DI for Acute Abdominal Pain Print Language Print Language: Mauritian Discharge ED Provider: Fina Xiao General Adult HPI <Maribell Toribio (ED), RCP - Last Filed: 03/17/25 22:14> General Chief complaint: Abdominal Pain Stated complaint: WEAKNESS Time Seen by Provider: 03/17/25 17:49 History of Present Illness HPI narrative: 84-year-old male presents to the ED today via EMS after having sharp stabbing abdominal pain then broke out into a sweat from the abdominal pain. He says that he went upstairs to go the bathroom and then he started vomiting. states he ate about noon at [employer] and was fine all afternoon went to [place] and then came home. States that he started having the stabbing doubling over pain. He did not pass out. Patient now that he is here at the hospital has very little abdominal pain but it is still there. states he was diagnosed with stage IV kidney disease. He has had a lot of fluid and shortness of breath recently. He has been going to the [place] for this. He was placed on Lasix 40 mg for his swelling in his feet and legs. This has improved and he states it has been under control . He says that cardiology did labs a week and a half ago and took him off the fluid pill unless he starts to have more swelling. He says that he walked a long distance this morning and did not have any chest pain but did have a little bit of shortness of breath. Related Data Home Medications ?Medication ?Instructions ?Recorded ?Confirmed clopidogrel 75 mg tablet 75 mg PO DAILY Blood thinner 07/05/19 08/22/24 amlodipine 10 mg tablet 10 mg PO DAILY 08/22/2407/26 cholecalciferol (vitamin D3) 25 25 mcg PO DAILY 08/22/24 mcg (1,000 unit) capsule empagliflozin 10 mg tablet 10 mg PO DAILY 08/22/24 mecobalamin (vitamin B12) 1,000 1,000 mcg PO DAILY 08/22/24 mcg chewable tablet vit C 250 mg-E 90 mg-zinc 40 1 tab PO BID 08/22/24 mg-copper 1 lf-ohamzf-vwglly chew tablet (PreserVision AREDS-2) Previous Rx's ?Medication ?Instructions ?Recorded prednisone 20 mg tablet 20 mg PO BID #14 tabs rosuvastatin 10 mg tablet See Rx Instructions .Route 0 01/07/25 .COMPLEX #90 tabs levocetirizine 5 mg tablet See Rx Instructions .Route 02/05/25 .COMPLEX #30 tabs amoxicillin 875 mg-potassium 1 tab PO BID #20 tabs clavulanate 125 mg tablet dicyclomine 20 mg tablet 20 mg PO BID #10 tabs Allergies Allergy/AdvReac Type Severity Reaction Status Date / Time aspirin (ASPIRIN) Allergy Intermediate Verified 08/22/24 14:36 PFS <Maribell Toribio (SIN), RCP - Last Filed: 03/17/25 22:14> [facility] Disclaimer: The information contained in this section may have been updated after the patient was seen, as this information can be updated by other users. Medical History (Updated 03/17/25 @ 20:12 by Maribell Toribio (SIN), RCP) Hypertension ILD (interstitial lung disease) Stage 4 chronic kidney disease Macular degeneration of left eye Kidney stone History of heart attack Hyperlipidemia Surgical History History of open heart surgery History of tonsillectomy History of cholecystectomy Family History (Updated 08/22/24 @ 14:48 by Jesusita Jones CMA) Mother Macular degeneration disease Social History (Updated 08/22/24 @ 14:49 by Jesusita Jones CMA) Smoking Status: Never smoker how long ago did patient quit smokin years alcohol intake: never current occupational status: retired Travel in the last 8 weeks?: None Have you lived/traveled outside US in past 30 days?: No Contact w/someone who lives/traveled outside US past 30 days?: No Exposure to someone with infectious disease in past 14 days?: No Do you have a fever (greater than 100.4 F or 38 C)?: No Have you tested positive for COVID-19?: No Exposed to someone with COVID-19 in past 14 days?: No Do you have a sore throat?: No Do you have a cough?: No Do you have any weakness?: No Do you have any diarrhea?: No Are you experiencing any unusual bleeding?: No Do you have any muscle aches/pain?: No Do you have any abdominal pain?: No Are you experiencing loss of taste or smell?: No Other Medical History Have you received the Flu Vaccine for this season: No Have you received the Pneumonia Vaccine: Yes <Maribell Toribio (ED), RCP - Last Filed: 03/17/25 22:14> ROS Obtained: Yes Systems reviewed as appropriate & no additional complaints except as documented Constitutional Constitutional: Reports as per HPI Physical Exam <Maribell Hagentarynmanuelito (ED), RCP - Last Filed: 03/17/25 22:14> General General appearance: alert Head Head exam: atraumatic and normocephalic Eye Eye exam: Present PERRL and EOMI ENT ENT exam: Present normal oropharynx and mucous membranes moist Neck Neck exam: Present full ROM and trachea midline Respiratory Respiratory exam: Present normal lung sounds bilaterally Cardiovascular Cardiovascular exam: Present regular rate, normal rhythm, normal heart sounds, +S1 and +S2 Abdominal Exam Abdominal exam: Present soft and normal bowel sounds Abdominal tenderness: Present suprapubic and mild Extremities Exam Extremities exam: Present normal inspection, full ROM and edema Neurological Exam Neurological exam: Present alert and oriented X3 Skin Skin exam: Present warm, dry and intact Medical Decision Making <Maribell Kilwei (ED), RCP - Last Filed: 03/17/25 22:14> Medical Records Screening: Per USPSTF and CDC recommendations, given the prevalence of disease in our region, it is our hospital?s policy to screen for HIV and viral Hepatitis for all patients aged 18 and over and those with ongoing risk factors. Cl Inquiry Pt receiving controlled substance: No Cl was queried for this patient: No Vital Signs: 03/17/25 17:56 03/17/25 18:00 03/17/25 18:30 Temperature 98.4 F Temperature Source Oral Pulse Rate 57 L 52 L Pulse Rate [Right Radial] 61 Respiratory Rate 20 20 21 Blood Pressure 128/64 120/64 Blood Pressure [Right Arm] 133/72 Blood Pressure Mean [Right Arm] 92 02 Sat by Pulse Oximetry 93 L 92 L 92 L Oxygen Delivery Method Room Air 03/17/25 20:21 Temperature 98.4 F Temperature Source Pulse Rate 60 Pulse Rate [Right Radial] Respiratory Rate 15 Blood Pressure 117/56 L Blood Pressure [Right Arm] Blood Pressure Mean [Right Arm] 02 Sat by Pulse Oximetry Oxygen Delivery Method Room Air Lab Data Lab Results 03/17/25 17:35: WBC 8.5, RBC 4.31 L, Hgb 13.0 L, Hct 39.4 L, MCV 91.4, MCH 30.2, MCHC 33.0, RDW 14.3, Plt Count 233, MPV 10.2, Neut % (Auto) 50.5, Lymph % (Auto) 34.7, [place] % (Auto) 12.2 H, Eos % (Auto) 2.0, Baso % (Auto) 0.2, Neut # (Auto) 4.3, Lymph # (Auto) 3.0, [place] # (Auto) 1.0, Eos # (Auto) 0.2, Baso # (Auto) 0.0, Sodium 143, Potassium 4.3, Chloride 113 H, Carbon Dioxide 20 L, Anion Gap 14.3, BUN 36 H, Creatinine 2.30 H, Estimated Creat Clear 27, Estimated GFR 27 L, Est GFR ( Amer) 33 L, Glucose 101 H, Calcium 9.1, Magnesium 2.4 H, Total Bilirubin 0.7, AST 36, ALT 22, Alkaline Phosphatase 131 H, Troponin I < 0.01, N T-Pro-B Natriuret Pep 3310 H, Total Protein 7.4, Albumin 4.4, Globulin 3.0, Albumin/Globulin Ratio 1.5, Lipase 187 03/17/25 17:35 03/17/25 17:35 Orders (Tests/Meds): ED MEDICATIONS Discontinued Medications Generic Name Dose Route Start Last Admin Trade Name Freq PRN Reason Stop Dose Admin Amoxicillin/Clavulanate Potassium 1 each 03/17/25 20:12 03/17/25 20:18 Amoxicillin/Clavulanate Potassium 875/125mg Tablet PO 03/17/25 20:13 1 each ONCE ONE Administration ORDERS Category Date Time Status CT abdomen pelvis wo con Stat Cat Scan 03/17/25 18:42 Completed Chest XR -- portable [XR chest portable] Stat Exams 03/17/25 17:57 Completed BNP [NT Pro Brain Natriuretic Pep.] Stat Lab 03/17/25 17:35 Completed CBC [Complete Blood Count Auto Diff] Stat Lab 03/17/25 17:35 Completed Comprehensive Metabolic Panel Stat Lab 03/17/25 17:35 Completed Lipase Stat Lab 03/17/25 17:35 Completed Magnesium Stat Lab 03/17/25 17:35 Completed Trop I [Troponin I] Stat Lab 03/17/25 17:35 Completed Medical Decision Narrative: patient is a 84-year-old male presenting to the emergency department for evaluation of abdominal pain, presyncopal episode. Patient is hemodynamically stable and nontoxic-appearing upon arrival, afebrile. Differential diagnosis includes abdominal pain, food poisoning, vasovagal syncope, among others. Workup will be conducted with hematologic labs, specific imaging. Initial inventions include [crystalloid bolus, analgesics, antibiotics, etc.]. Initial workup reviewed by me [hematologic labs are remarkable for:]. [Imaging informally interpreted by me and remarkable for:] [Formal imaging read remarkable for:] Upon repeat evaluation [patient's pain is improved, appears better perfused, appears the same, appears worse, etc.]. Due to this [additional interventions, patient is appropriate for discharge, patient requires admission, etc.]. <Fina Xiao MD - Last Filed: 03/17/25 23:05> Vital Signs: 03/17/25 17:56 03/17/25 18:00 03/17/25 18:30 Temperature 98.4 F Temperature Source Oral Pulse Rate 57 L 52 L Pulse Rate [Right Radial] 61 Respiratory Rate 20 20 21 Blood Pressure 128/64 120/64 Blood Pressure [Right Arm] 133/72 Blood Pressure Mean [Right Arm] 92 02 Sat by Pulse Oximetry 93 L 92 L 92 L Oxygen Delivery Method Room Air 03/17/25 20:21 Temperature 98.4 F Temperature Source Pulse Rate 60 Pulse Rate [Right Radial] Respiratory Rate 15 Blood Pressure 117/56 L Blood Pressure [Right Arm] Blood Pressure Mean [Right Arm] 02 Sat by Pulse Oximetry Oxygen Delivery Method Room Air Lab Data Lab results reviewed: Yes I reviewed the patient's lab results. Lab Results 03/17/25 17:35: WBC 8.5, RBC 4.31 L, Hgb 13.0 L, Hct 39.4 L, MCV 91.4, MCH 30.2, MCHC 33.0, RDW 14.3, Plt Count 233, MPV 10.2, Neut % (Auto) 50.5, Lymph % (Auto) 34.7, [place] % (Auto) 12.2 H, Eos % (Auto) 2.0, Baso % (Auto) 0.2, Neut # (Auto) 4.3, Lymph # (Auto) 3.0, [place] # (Auto) 1.0, Eos # (Auto) 0.2, Baso # (Auto) 0.0, Sodium 143, Potassium 4.3, Chloride 113 H, Carbon Dioxide 20 L, Anion Gap 14.3, BUN 36 H, Creatinine 2.30 H, Estimated Creat Clear 27, Estimated GFR 27 L, Est GFR ( Amer) 33 L, Glucose 101 H, Calcium 9.1, Magnesium 2.4 H, Total Bilirubin 0.7, AST 36, ALT 22, Alkaline Phosphatase 131 H, Troponin I < 0.01, N T-Pro-B Natriuret Pep 3310 H, Total Protein 7.4, Albumin 4.4, Globulin 3.0, Albumin/Globulin Ratio 1.5, Lipase 187 Orders (Tests/Meds): ED MEDICATIONS Discontinued Medications Generic Name Dose Route Start Last Admin Trade Name Freq PRN Reason Stop Dose Admin Amoxicillin/Clavulanate Potassium 1 each 03/17/25 20:12 03/17/25 20:18 Amoxicillin/Clavulanate Potassium 875/125mg Tablet PO 03/17/25 20:13 1 each ONCE ONE Administration ORDERS Category Date Time Status CT abdomen pelvis wo con Stat Cat Scan 03/17/25 18:42 Completed Chest XR -- portable [XR chest portable] Stat Exams 03/17/25 17:57 Completed BNP [NT Pro Brain Natriuretic Pep.] Stat Lab 03/17/25 17:35 Completed CBC [Complete Blood Count Auto Diff] Stat Lab 03/17/25 17:35 Completed Comprehensive Metabolic Panel Stat Lab 03/17/25 17:35 Completed Lipase Stat Lab 03/17/25 17:35 Completed Magnesium Stat Lab 03/17/25 17:35 Completed Trop I [Troponin I] Stat Lab 03/17/25 17:35 Completed Medical Decision Narrative: patient is a 84-year-old male presenting to the emergency department for evaluation of abdominal pain, presyncopal episode. Patient is hemodynamically stable and nontoxic-appearing upon arrival, afebrile. Differential diagnosis includes abdominal pain, food poisoning, vasovagal syncope, among others. Workup will be conducted with hematologic labs, specific imaging. Labs unremarkable patient has CKD near his baseline no evidence of sepsis CT scan was consistent with diverticulitis and treated in outpatient fashion no evidence of any perforation or abscess. Return precautions episodes patient discharged in stable condition. Critical Care <Maribell Toribio (ED), RCP - Last Filed: 03/17/25 22:14> Critical Care Time Critical Care Time: No
[2025-03-17 18:00] VITALS: BP 128/64; PULSE 57; RESP 20; O2SAT 92
[2025-03-17 18:07] LABS: Hematocrit 39.4 % (42.0-52.0); Hemoglobin 13.0 g/dL (14.1-18.0); Immature Granulocytes % 0.4 %; Mean Corpuscular HGB Conc 33.0 g/dL (31.8-35.4); Mean Corpuscular Hemoglobin 30.2 pg (27.0-31.2); Mean Corpuscular Volume 91.4 fl (80-94); Nucleated Red Blood Cells % 0 %; Platelet Count 233 K/mm3 (142-424); Red Blood Count 4.31 M/mm3 (4.60-6.20); Red Cell Distribution Width-SD 48.8 fL; White Blood Count 8.5 K/mm3 (4.8-10.8)
[2025-03-17 18:08] LABS: Albumin Level 4.4 g/dl (3.5-5.0); Chloride 113 mmol/L (98-107)
[2025-03-17 18:09] LABS: Potassium 4.3 mmoL/L (3.5-5.1); Sodium 143 mmol/L (136-145)
[2025-03-17 18:11] LABS: Alanine Aminotransferase 22 U/L (12-78); Anion Gap 14.3 mEq/L (5-15); Aspartate Amino Transferase 36 U/L (17-59); Bilirubin,Total 0.7 mg/dl (0.2-1.3); Blood Urea Nitrogen 36 mg/dl (9-20); Carbon Dioxide 20 mmol/L (22.0-30.0); Creatinine,Serum 2.30 mg/dl (0.66-1.25); Estimated Glomerular Filt Rate 27 ml/min (>60); GFR (African American) 33 ML/MIN (>60)
[2025-03-17 18:12] LABS: Albumin/Globulin Ratio 1.5 (1.1-1.8); Alkaline Phosphatase 131 U/L (38-126); Calcium 9.1 mg/dl (8.4-10.2); Globulin 3.0 g/dL (1.3-3.2); Glucose 101 mg/dl (74-100); Lipase 187 U/L (23-300); Magnesium 2.4 mg/dl (1.6-2.3); Total Protein,Serum 7.4 g/dl (6.3-8.2)
[2025-03-17 18:21] LABS: NT Pro Brain Natriuretic Pep. 3310 pg/mL (0-450)
[2025-03-17 18:22] LABS: Creatinine Clearance Estimated 27 mL/min (50-200)
[2025-03-17 18:30] VITALS: BP 120/64; PULSE 52; RESP 21; O2SAT 92
[2025-03-17 18:30] LABS: Troponin I < 0.01 ng/ml (0.00-0.034)
--- NOTE | 2025-03-17 18:42 | CT_ITS ---
PROCEDURE INFORMATION: Exam: CT Abdomen And Pelvis Without Contrast Exam date and time: 03/17/2025 7:11 PM Age: 84 years old Clinical indication: Abdominal pain TECHNIQUE: Imaging protocol: Computed tomography of the abdomen and pelvis without contrast. Radiation optimization: All CT scans at this facility use at least one of these dose optimization techniques: automated exposure control; mA and/or kV adjustment per patient size (includes targeted exams where dose is matched to clinical indication); or iterative reconstruction. COMPARISON: CR XR CHEST PORTABLE 03/17/2025 6:11 PM FINDINGS: Lungs: Bibasilar chronic appearing interstitial lung markings. Liver: Normal. No mass. Gallbladder and biliary ducts: Cholecystectomy. Pancreas: Normal. No ductal dilation. Spleen: Normal. No splenomegaly. Adrenal glands: Normal. No mass. Kidneys and ureters: 4.0 cm simple cyst in the lower left kidney. Stomach and bowel: 4.8 cm duodenal diverticulum. Colonic diverticulosis. Subtle wall thickening seen in the proximal to mid sigmoid colon without significant adjacent inflammatory fat stranding. Appendix: No evidence of appendicitis. Intraperitoneal space: Unremarkable. No free air. No significant fluid collection. Vasculature: Moderate atherosclerotic changes are seen within the abdominal aorta and branch vasculature without evidence of aneurysm. Lymph nodes: Unremarkable. No enlarged lymph nodes. Urinary bladder: Unremarkable as visualized. Reproductive: Suggestion of bilateral testicles within the lower inguinal canals. Bilateral fat containing inguinal hernias. Bones/joints: Unremarkable. No acute fracture. Soft tissues: No focal fluid collection. IMPRESSION: 1. Suspicion of mild/early changes of sigmoid diverticulitis. 2. Bilateral fat containing inguinal hernias. Possible bilateral testicles within the lower inguinal canals. Recommend clinical correlation. 3. Duodenal and colonic diverticulosis. 4. Simple left renal cyst does not require additional imaging. COMMENTS: Consistent with the [employer]'s Incidental Findings Committee white paper (J Am Lexy Radiol 2018): Any incidental renal lesion less than 1 cm or classified as too small to characterize, or any incidental cystic renal lesion characterized as simple-appearing, is likely benign. No follow-up imaging is recommended for these lesions per consensus recommendations based on imaging criteria.
[2025-03-17] MEDS: AMOXICILLIN/CLAVULANATE POTASSIUM 875/125MG TABLET 1 EACH PO (20:18)
[2025-03-17 20:21] VITALS: BP 117/56; PULSE 60; RESP 15; TEMP 36.9; O2SAT 92
== END 2025-03-17 20:41 | disposition home or self-care (01) ==
PROVIDERS: Nurse Practitioner; Emergency Provider Student in an Organized Health Care Education/Training Program; PCP Internal Medicine
DX: K57.32 Diverticulitis of large intestine without perforation or abscess without bleeding (principal); R10.30 Lower abdominal pain, unspecified; R11.2 Nausea with vomiting, unspecified; R53.1 Weakness
CPT/HCPCS: 71045; 74176; 80053; 83690; 83735; 83880; 84484; 85025; 93005; 99284